=== PATIENT | female | born 1950 | race Caucasian/White ===

== ENCOUNTER 2016-08-03 08:32 | Emergency (ER) | payer MEDICARE, BC, MEDICAID ==
[~2016-08-03] VITALS: Ht 162.6 cm; Wt 97.5 kg
[~2016-08-03 08:32] MED LIST: ASP81CT PO; ASPI-983 PO; ATOR80TA64 PO; ATOR80TA76 PO; BIOT5CAP10 PO; CALC-97 PO; CALCIUM; CETI10CA PO; CETI10TA17 PO; CLOB15CR2 TP; CLON0.5T3 PO; CLON0.5T60 PO; CNC1KV IJ; CPR500T PO; CYAN10006 PO; DNPZ10T PO; DONE10TA41 PO; DOXY100C2 PO; DOXY100C42 PO; ESCI20TA2; FOLI1TAB24 PO; FRSM40T PO; FURO20TA4 PO; ISM30TCR PO; KCL20TCR PO; LAMO150T PO; LAMO25TA PO; LEVE500T6 PO; LEVE500T99; LEVE750T5 PO; LOVA20TA2 PO; MELA1TAB10 PO; MELO-198 PO; MELO15TA39 PO; MEMA10TA PO; MEMA5TAB16 PO; MGX400T PO; MULTIVITAMIN; OMEP-10 PO; ONDAN4ODT; PHN100C; POTA10TA14 PO; PRED1DRO OP; PRED1DRO OU; PRED5DRO2I OU; PROP10TA8; QTP100T; RISP1TAB19; RIVA1PAT TD; RIVA1PAT3 TD; ROPI1TAB40; RSP1T; TOPI200T19; TOPI200T8 PO; TPR100T; TPR100T PO; TRAZ-28 PO; VITAMIN B 12; ZLP10T; ZLP10T PO; ZLP5T PO; ZOLP5TAB7 PO; [UNRECOGNIZED DRUG - CODE] OP
--- OUTSIDE RECORDS SUMMARY | 2016-08-03 08:37 | XMS REPORT | Continuity of Care Document ---
Author Author [facility] Organization [facility] Address Unknown Phone Unavailable Care Team Providers Care Manager Telemetry Name Role Phone No Pcp, Na PCP Unavailable Source Comments Some departments are not documenting in the electronic medical record. If you do not see the information that you expected, contact Release of Information in the Health Information Management department at [phone] for further assistance in locating additional records.[facility] Active Allergies and Adverse Reactions Allergen Noted Date Severity Reactions Comments Latex 05/07/2005 Allergy recorded in SMS: Latex~Reactions: RASH Penicillins 09/30/2002 Allergy recorded in SMS: Penicillin~Reactions: STOMACH UPSET~HIVES Current Medications Prescription Sig. Disp. Refills Start End Date Status Date zolpidem (AMBIEN) 5 mg Take 5 mg by mouth at Active tablet bedtime daily. aspirin EC 81 mg tablet Take 81 mg by mouth Active daily. Take with food. clonazePAM (KLONOPIN) 0.5 Take 0.5 mg by mouth at Active mg tablet bedtime daily. rivastigmine(+) (EXELON) Apply 1 Patch to top of Active 9.5 mg/24 hr transdermal skin as directed daily. patch folic acid (FOLVITE) 1 mg Take 1 mg by mouth daily. Active tablet furosemide (LASIX) 20 mg Take 20 mg by mouth every Active tablet morning. atorvastatin (LIPITOR) 80 Take 80 mg by mouth Active mg tablet daily. melatonin 3 mg tab Take 3 mg by mouth at Active bedtime daily. meloxicam (MOBIC) 15 mg Take 15 mg by mouth Active tablet daily. memantine (NAMENDA) 5 mg Take 5 mg by mouth daily. Active tablet potassium chloride SR Take 10 mEq by mouth Active (K-DUR) 10 mEq tablet daily. Take with a meal and a full glass of water. traZODone (DESYREL) 50 mg Take 50 mg by mouth at Active tablet bedtime daily. Calcium-Cholecalciferol Take 1 Cap by mouth twice Active (D3) 600 mg calcium- 200 daily. unit cap levETIRAcetam (KEPPRA) Take 750 mg by mouth Active 750 mg tablet twice daily. lamoTRIgine (LAMICTAL) Take 150 mg by mouth Active 150 mg tablet twice daily. topiramate (TOPAMAX) 200 Take 200 mg by mouth Active mg tablet twice daily. prednisolone acetate Apply 1 Drop to both eyes Active (PRED FORTE) 1 % four times daily. ophthalmic suspension AMITRIPTYLINE HCL Apply to affected joints 100 g 1 05/19/20 Active (AMITRIPTYLINE/GABAPENTIN tid 16 /EMU OIL(#)) 4/4/10 % donepezil (ARICEPT) 10 mg Take 10 mg by mouth 07/21/19 Suspended tablet daily. 08 Active Problems Problem Noted Date PEG (acute kidney injury) ([facility]) 05/19/2016 Disorientation 05/19/2016 Dementia in conditions classified elsewhere without behavioral disturbance 10/11/2007 Other screening mammogram 07/22/2007 Chest pain 07/21/2007 Seizure disorder ([facility]) Brain injury ([facility]) Dementia Psychosis GERD (gastroesophageal reflux disease) Restless leg syndrome Most Recent Encounters Date Type Specialty Providers Description 06/12/2016 [facility] Radiology Imani Pineda MD Encounter 06/10/2016 Screening Form 05/18/2016 [facility] Emergency Medicine Beronica Park MD PEG (acute kidney injury) - Encounter Paul Mak MD ([facility]) 05/19/2016 Caryn Hutchins MD 05/18/2016 [facility] Imani Pineda MD Encounter 05/18/2016 Ancillary Imani Pineda MD Spells (Primary Dx); Orders History of seizure Social History Tobacco Use Types Packs/Day Years Used Date Current Every Day Smoker Alcohol Use Drinks/Week oz/Week Comments No Last Filed Vital Signs Vital Sign Reading Time Taken Blood Pressure 135/52 05/19/2016 8:00 AM VIDEO GAME PROGRAMMER Pulse 56 05/18/2016 4:43 PM VIDEO GAME PROGRAMMER Temperature 36.4 C (97.6 F) 05/19/2016 8:00 AM VIDEO GAME PROGRAMMER Respiratory Rate - - Height 1.626 m (5' 4") 05/18/2016 4:43 PM VIDEO GAME PROGRAMMER Weight 95.255 kg (210 lb) 05/18/2016 4:43 PM VIDEO GAME PROGRAMMER Body Mass Index 36.03 05/18/2016 4:43 PM VIDEO GAME PROGRAMMER Oxygen Saturation 97% 05/19/2016 8:00 AM VIDEO GAME PROGRAMMER Plan of Care Health Maintenance Due Date Last Done Comments Hepatitis C Screening 1951 Physical (Comprehensive) 1958 Exam Pertussis Vaccine 1962 Tetanus Vaccine 1968 Colorectal Cancer 2001 Screening Breast Cancer Screening 07/22/2008 07/22/2007, 07/22/2007 Shingles Vaccine 2011 Influenza Vaccine 03/05/2016 Osteoporosis Screening 2016 Prevnar/Pneumovax (#1) 2016 Procedures from Last 3 Months Procedure Name Priority Date/Time Associated Diagnosis Comments PROCEDURES-SCAN 05/21/2016 Results for this 10:35 AM VIDEO GAME PROGRAMMER procedure are in the results section. PROCEDURES-SCAN 05/19/2016 Results for this 7:31 AM VIDEO GAME PROGRAMMER procedure are in the results section. Results from Last 3 Months MRI HEAD WO CONTRAST (06/12/2016 2:14 PM) Impressions 1. Right mesial temporal sclerosis. 2. Stable multifocal posterior right cerebral cortical/subcortical encephalomalacia and gliosis, consistent with sequelae of remote insult. 3. Stable scattered small white matter lesions, suspicious for a demyelinating process such as multiple sclerosis in the appropriate clinical setting. Sequelae of chronic microvascular ischemic disease could appear similar. Approved by Giovana Leung M.D. on 06/12/2016 3:33 PM By my electronic signature, I attest that I have personally reviewed the images for this examination and formulated the interpretations and opinions expressed in this report Finalized by Avinash Zabala M.D. on 06/12/2016 4:02 PM. Dictated by Giovana Leung M.D. on 06/12/2016 2:29 PM. Narrative EXAM: MRI BRAIN (SEIZURE PROTOCOL) HISTORY: Seizure protocol, spells, history of seizure, brain injury TECHNIQUE: Multiplanar and multisequence MR imaging of the head was performed. This was done both without the administration of gadolinium contrast. Additional dedicated coronal sequences were obtained of the mesial temporal lobes. COMPARISON: CT head November 15, 2006 FINDINGS: There is retrospectively unchanged multifocal cortical/subcortical encephalomalacia and gliosis involving the right occipital and parietal lobes. The ventricles and subarachnoid spaces are otherwise normal in size and configuration. There are stable small scattered FLAIR hyperintense lesions throughout the supratentorial and infratentorial white matter, some of which are ovoid and oriented perpendicular to the lateral ventricles. The infratentorial white matter lesion is juxtacortical location. No new FLAIR hyperintense lesion is identified. There is no focal mass or mass effect. The vascular flow-voids are unremarkable. Diffusion weighted imaging is not indicative of infarct. There is right hippocampal FLAIR hyperintensity, volume loss and loss of normal internal architecture, lack of interdigitation of the right hippocampal head consistent with mesial temporal sclerosis. No migrational anomaly is identified. Procedure Note Interface, Radiant Results - WedJun 12, 2016 4:06 PM VIDEO GAME PROGRAMMER EXAM: MRI BRAIN (SEIZURE PROTOCOL) HISTORY: Seizure protocol, spells, history of seizure, brain injury TECHNIQUE: Multiplanar and multisequence MR imaging of the head was performed. This was done both without the administration of gadolinium contrast. Additional dedicated coronal sequences were obtained of the mesial temporal lobes. COMPARISON: CT head November 15, 2006 FINDINGS: There is retrospectively unchanged multifocal cortical/subcortical encephalomalacia and gliosis involving the right occipital and parietal lobes. The ventricles and subarachnoid spaces are otherwise normal in size and configuration. There are stable small scattered FLAIR hyperintense lesions throughout the supratentorial and infratentorial white matter, some of which are ovoid and oriented perpendicular to the lateral ventricles. The infratentorial white matter lesion is juxtacortical location. No new FLAIR hyperintense lesion is identified. There is no focal mass or mass effect. The vascular flow-voids are unremarkable. Diffusion weighted imaging is not indicative of infarct. There is right hippocampal FLAIR hyperintensity, volume loss and loss of normal internal architecture, lack of interdigitation of the right hippocampal head consistent with mesial temporal sclerosis. No migrational anomaly is identified. IMPRESSION 1. Right mesial temporal sclerosis. 2. Stable multifocal posterior right cerebral cortical/subcortical encephalomalacia and gliosis, consistent with sequelae of remote insult. 3. Stable scattered small white matter lesions, suspicious for a demyelinating process such as multiple sclerosis in the appropriate clinical setting. Sequelae of chronic microvascular ischemic disease could appear similar. Approved by Giovana Leung M.D. on 06/12/2016 3:33 PM By my electronic signature, I attest that I have personally reviewed the images for this examination and formulated the interpretations and opinions expressed in this report Finalized by Avinash Zabala M.D. on 06/12/2016 4:02 PM. Dictated by Giovana Leung M.D. on 06/12/2016 2:29 PM. PROCEDURES-SCAN (05/21/2016 10:35 AM) Narrative Ordered by an unspecified provider. ANTI-NUCLEAR ANTIBODY(DENNYS) (05/19/2016 9:51 AM) Component Value Range DENNYS Screen <80 <80 TITER Specimen Blood ANTI-CYCLIC CITRULLINATED PEPT (05/19/2016 9:51 AM) Component Value Range Anit-CCP IgG 0.9 <5.0 [IU]/mL Specimen Blood RHEUMATOID FACTOR (RF) (05/19/2016 9:51 AM) Component Value Range Rheum Factor Screen <20 <24 IU/mL Specimen Blood COMPREHENSIVE METABOLIC PANEL (05/19/2016 7:33 AM)Only the most recent of 2 results within the time period is included. Component Value Range Sodium 137 137-147 MMOL/L Potassium 4.1 3.5-5.1 MMOL/L Chloride 109 98-110 MMOL/L Glucose 105 (H) 70-100 MG/DL Blood Urea Nitrogen 17 7-25 MG/DL Creatinine 1.03 (H) 0.4-1.00 MG/DL Calcium 8.7 8.5-10.6 MG/DL Total Protein 6.6 6.0-8.0 G/DL Total Bilirubin 0.8 0.3-1.2 MG/DL Albumin 3.5 3.5-5.0 G/DL Alk Phosphatase 83 25-110 U/L AST (SGOT) 348 (H) 7-40 U/L CO2 24 21-30 MMOL/L ALT (SGPT) 172 (H) 7-56 U/L Anion Gap 4 3-12 eGFR Non 54 (L)Comment: >60 mL/min The eGFR is not validated for use in drug dosing adjustments. Continue to use estimated creatinine clearance per dosing reference text. Please contact the Clinical Pharmacist for questions. eGFR >60Comment: >60 mL/min The eGFR is not validated for use in drug dosing adjustments. Continue to use estimated creatinine clearance per dosing reference text. Please contact the Clinical Pharmacist for questions. Specimen Blood CBC AND DIFF (05/19/2016 7:33 AM)Only the most recent of 2 results within the time period is included. Component Value Range White Blood Cells 6.6 4.5-11.0 K/UL RBC 4.16 4.0-5.0 M/UL Hemoglobin 13.1 12.0-15.0 GM/DL Hematocrit 40.1 36-45 % MCV 96.4 80-100 FL MCH 31.5 26-34 PG MCHC 32.7 32.0-36.0 G/DL RDW 13.5 11-15 % Platelet Count 154 150-400 K/UL MPV 8.2 7-11 FL Neutrophils 72 41-77 % Lymphocytes 18 (L) 24-44 % Monocytes 8 4-12 % Eosinophils 1 0-5 % Basophils 1 0-2 % Absolute Neutrophil Count 4.70 1.8-7.0 K/UL Absolute Lymph Count 1.20 1.0-4.8 K/UL Absolute Monocyte Count 0.50 0-0.80 K/UL Absolute Eosinophil Count 0.10 0-0.45 K/UL Absolute Basophil Count 0.00 0-0.20 K/UL Specimen Blood PROCEDURES-SCAN (05/19/2016 7:31 AM) Narrative Ordered by an unspecified provider. URINALYSIS, MICROSCOPIC (05/19/2016 7:21 AM) Component Value Range WBCs,UA 2-10 0-2 /HPF RBCs,UA NONE 0-3 /HPF MucousUA TRACE Squamous Epithelial Cells 0-2 0-5 Specimen Urine URINALYSIS DIPSTICK (05/19/2016 7:21 AM) Component Value Range Color,UA YELLOW Turbidity,UA 1+ (A) CLEAR-CLEAR Specific [place]-Urine 1.016 1.003-1.035 pH,UA 7.0 5.0-8.0 Protein,UA NEG NEG-NEG Glucose,UA NEG NEG-NEG Ketones,UA NEG NEG-NEG Bilirubin,UA NEG NEG-NEG Blood,UA NEG NEG-NEG Urobilinogen,UA NORMAL NORM-NORMAL Nitrite,UA NEG NEG-NEG Leukocytes,UA TRACE (A) NEG-NEG Urine Ascorbic Acid, UA NEG NEG-NEG Specimen Urine CULTURE-URINE W/SENSITIVITY (05/19/2016 7:21 AM) Component Value Range Battery Name URINE CULTURE Specimen Description URINE Special Requests NONE Culture <10,000 organisms/ml MIXED CONTAMINANTS Report Status FINAL 05/20/2016 Specimen Urine PROTIME INR (PT) (05/19/2016 6:07 AM)Only the most recent of 2 results within the time period is included. Component Value Range INR 1.0 0.8-1.2 VITAMIN B12 (05/19/2016 6:07 AM) Component Value Range Vitamin B12 2670 (H) 180-914 PG/ML Specimen Blood TSH WITH FREE T4 REFLEX (05/19/2016 6:07 AM) Component Value Range TSH 0.954 0.35-5.00 MCU/ML Specimen Blood 25-OH VITAMIN D (D2 + D3) (05/19/2016 6:07 AM) Component Value Range Vitamin D(25-OH)Total 29.2 (L) 30-80 NG/ML Specimen Blood ANKLE MIN 3 VIEWS LEFT (05/19/2016 2:43 AM) Impressions No acute osseous abnormality of the ankle. Approved by Meliton Boyce M.D. on 05/19/2016 7:31 AM By my electronic signature, I attest that I have personally reviewed the images for this examination and formulated the interpretations and opinions expressed in this report Finalized by Soha Bedoya M.D. on 05/19/2016 7:32 AM. Dictated by Meliton Boyce M.D. on 05/19/2016 5:10 AM. Narrative ANKLE MIN 3 VIEWS LEFT CLINICAL HISTORY: Female, 66 years old. Left ankle pain, GENERALIZED BODY PAIN, COMPARISON: None FINDINGS: 3 views of the left ankle were obtained.There is no acute fracture or dislocation. No focal osseous lesions are seen. The joint spaces are preserved. The surrounding soft tissue structures are unremarkable. There are no radiopaque foreign bodies. Procedure Note Interface, Radiant Results - Tue May 19, 2016 7:35 AM VIDEO GAME PROGRAMMER ANKLE MIN 3 VIEWS LEFT CLINICAL HISTORY: Female, 66 years old. Left ankle pain, GENERALIZED BODY PAIN, COMPARISON: None FINDINGS: 3 views of the left ankle were obtained. There is no acute fracture or dislocation. No focal osseous lesions are seen. The joint spaces are preserved. The surrounding soft tissue structures are unremarkable. There are no radiopaque foreign bodies. IMPRESSION No acute osseous abnormality of the ankle. Approved by Meliton Boyce M.D. on 05/19/2016 7:31 AM By my electronic signature, I attest that I have personally reviewed the images for this examination and formulated the interpretations and opinions expressed in this report Finalized by Soha Bedoya M.D. on 05/19/2016 7:32 AM. Dictated by Meliton Boyce M.D. on 05/19/2016 5:10 AM. FOOT COMP MIN 3 VIEWS LEFT (05/19/2016 2:40 AM) Impressions No acute osseous abnormality of the left foot. Approved by Meliton Boyce M.D. on 05/19/2016 7:31 AM By my electronic signature, I attest that I have personally reviewed the images for this examination and formulated the interpretations and opinions expressed in this report Finalized by Soha Bedoya M.D. on 05/19/2016 7:32 AM. Dictated by Meliton Boyce M.D. on 05/19/2016 5:11 AM. Narrative FOOT COMP MIN 3 VIEWS LEFT CLINICAL HISTORY: Female, 66 years old. Left foot pain, GENERALIZED BODY PAIN, COMPARISON: None FINDINGS: 3 views of the left foot were obtained. There is no acute fracture or dislocation. The visualized tarsal bones are intact. The tarsometatarsal, metatarsal-phalangeal, and interphalangeal joint spaces are well maintained. There are no focal osseous lesions. The surrounding soft tissue structures are unremarkable. There are no radiopaque foreign bodies. Procedure Note Interface, Radiant Results - Tue May 19, 2016 7:35 AM VIDEO GAME PROGRAMMER FOOT COMP MIN 3 VIEWS LEFT CLINICAL HISTORY: Female, 66 years old. Left foot pain, GENERALIZED BODY PAIN, COMPARISON: None FINDINGS: 3 views of the left foot were obtained. There is no acute fracture or dislocation. The visualized tarsal bones are intact. The tarsometatarsal, metatarsal-phalangeal, and interphalangeal joint spaces are well maintained. There are no focal osseous lesions. The surrounding soft tissue structures are unremarkable. There are no radiopaque foreign bodies. IMPRESSION No acute osseous abnormality of the left foot. Approved by Meliton Boyce M.D. on 05/19/2016 7:31 AM By my electronic signature, I attest that I have personally reviewed the images for this examination and formulated the interpretations and opinions expressed in this report Finalized by Soha Bedoya M.D. on 05/19/2016 7:32 AM. Dictated by Meliton Boyce M.D. on 05/19/2016 5:11 AM. US DOPPLER VENOUS W EXTRM LEFT (05/18/2016 11:59 PM) Impressions 1. No evidence of femoral/popliteal DVT in the left lower extremity. 2. Small subcutaneous lipoma in the anterior thigh palpable region of interest. By my electronic signature, I attest that I have personally reviewed the images for this examination and formulated the interpretations and opinions expressed in this report Finalized by Manuel Toney M.D. on 05/19/2016 12:43 AM. Dictated by Meliton Boyce M.D. on 05/19/2016 12:09 AM. Narrative Ultrasound Doppler of the left lower extremity. Clinical Indication: LEFT LEG SWELLING Technique: Multiple real-time grayscale sonographic images were obtained throughout the left lower extremity with additional color Doppler and duplex acquisitions to examine the deep venous systems. Findings: There are no areas of narrowing or occlusion within the deep veins of the left lower extremity. The common femoral, femoral, saphenous, popliteal, and deep veins of the left lower extremity are widely patent and demonstrate normal color Doppler imaging. No abnormal compression or augmentation is identified. There is a small homogenous, hyperechoic subcutaneous nodule in the anterior left thigh and the palpable area of interest measuring 1.5 x 1.3 x 0.9 cm, most consistent with a lipoma. Procedure Note Interface, Radiant Results - Tue May 19, 2016 12:46 AM VIDEO GAME PROGRAMMER Ultrasound Doppler of the left lower extremity. Clinical Indication: LEFT LEG SWELLING Technique: Multiple real-time grayscale sonographic images were obtained throughout the left lower extremity with additional color Doppler and duplex acquisitions to examine the deep venous systems. Findings: There are no areas of narrowing or occlusion within the deep veins of the left lower extremity. The common femoral, femoral, saphenous, popliteal, and deep veins of the left lower extremity are widely patent and demonstrate normal color Doppler imaging. No abnormal compression or augmentation is identified. There is a small homogenous, hyperechoic subcutaneous nodule in the anterior left thigh and the palpable area of interest measuring 1.5 x 1.3 x 0.9 cm, most consistent with a lipoma. IMPRESSION 1. No evidence of femoral/popliteal DVT in the left lower extremity. 2. Small subcutaneous lipoma in the anterior thigh palpable region of interest. By my electronic signature, I attest that I have personally reviewed the images for this examination and formulated the interpretations and opinions expressed in this report Finalized by Manuel Toney M.D. on 05/19/2016 12:43 AM. Dictated by Meliton Boyce M.D. on 05/19/2016 12:09 AM. PTT (APTT) (05/18/2016 10:45 PM) Component Value Range APTT 26.6 24.0-40.0 SEC Specimen Blood
--- NOTE | 2016-08-03 08:53 | ED Head Injury ---
General Chief Complaint: General Problems/Pain Stated Complaint: FALL/HEAD PAIN Nursing Triage Note: PT TO [facility] WITH CC OF FALL, LAC TO HEAD, BLEEDING CONTROLLED AT THIS TIME. NO LOC, PT STATES SHE JUST TRIPPED AND FELL HITTING HER HEAD. STATES SHE HAS HAD SWELLING IN THE LT LEG, MINOR LT THIGH PAIN, AND ARMS ARE THROBBING. Source: patient, EMS, RN notes reviewed Exam Limitations: no limitations History of Present Illness Time seen by provider: 08:53 Initial Comments As above. Occurred: just prior to arrival Severity: moderate (01/11) Location: occipital Method of Injury: fell, incised Loss of Consciousness: no loss of consciousness Associated Systoms: Other (left thigh and arms ache) Allergies and Home Medications Allergies Coded Allergies: Penicillins (Verified Allergy, Mild, 07/22/13) latex (Verified Allergy, Mild, 07/22/13) Home Medications Aspirin 81 Mg Tablet.dr 81 MG PO DAILY (Reported) Atorvastatin Calcium 80 Mg Tablet 80 MG PO HS (Reported) Calcium Carbonate/Vitamin D3 1 Each Tablet 1 TAB PO BID (Reported) Clonazepam 0.5 Mg Tablet 0.5 MG PO HS (Reported) Cyanocobalamin 1,000 Mcg/Ml Inj 1,000 MCG IJ EVERY OTHER WEDNESDAY (Reported) Cyanocobalamin (Vitamin B-12) 1,000 Mcg Tablet 1,000 MCG PO DAILY (Reported) Donepezil HCl 10 Mg Tablet 10 MG PO DAILY (Reported) Folic Acid 1 Mg Tablet 1 MG PO DAILY (Reported) Furosemide 20 Mg Tablet 20 MG PO DAILY (Reported) Lamotrigine 150 Mg Tablet 150 MG PO BID (Reported) Levetiracetam 750 Mg Tablet 1,500 MG PO BID (Reported) TAKES 2 (750MG) TABLETS Melatonin/Pyridoxine 1 Each Tablet 3 MG PO HS (Reported) Meloxicam 15 Mg Tablet 15 MG PO DAILY (Reported) Memantine HCl 5 Mg Tablet 5 MG PO DAILY (Reported) Potassium Chloride 10 Meq Tab.er.prt 10 MEQ PO DAILY (Reported) Prednisolone Acetate 1 Ml Drops.susp 1 DROP OU QID (Reported) Rivastigmine 9.5 Mg Patch 9.5 MG TD DAILY (Reported) Topiramate 200 Mg Tablet 200 MG PO BID (Reported) Trazodone HCl 50 Mg Tablet 50 MG PO HS (Reported) Zolpidem Tartrate 5 Mg Tablet 5 MG PO HS (Reported) Constitutional: see HPI : No Musculoskeletal: see HPI other (lef thigh pain; arms ache) Skin: see HPI other (occipital scalp laceration) All Other Systems Reviewed Negative Unless Noted: Yes (Negative excepted noted.) Past Umfzrwn-Cjfknz-Cwosjq Hx Patient Social History Former Smoker/When Quit: Oct 17, 2012 Recent Foreign Travel: No Contact w/Someone Who Travel: No Recent Infectious Disease Expo: No Recent Hopitalizations: No Immunizations Up To Date Tetanus Booster (TDap): Unknown Date of Influenza Vaccine: Apr 04, 2016 Seasonal Allergies Seasonal Allergies: No Surgeries HX Surgeries: Yes Surgeries: Gallbladder, Lumpectomy Respiratory Hx Respiratory Disorders: No Cardiovascular Hx Cardiac Disorders: Yes Cardiac Disorders: Coronary Artery Disease, High Cholesterol, Hypertension, Rheumatic Fever Neurological Hx Neurological Disorders: Yes (ENCEPHALITIS) Neurological Disorders: Concussion, Dementia, Seizure Disorder, Traumatic Brain Injury Reproductive System Hx Reproductive Disorders: No Sexually Transmitted Disease: No HIV/AIDS: No Female Reproductive Disorders: Denies Genitourinary Hx Genitourinary Disorders: No Gastrointestinal Hx Gastrointestinal Disorders: Yes ("STOMACH DISCOMFORT") Gastrointestinal Disorders: Gastroesophageal Reflux, Chronic Constipation Musculoskeletal Hx Musculoskeletal Disorders: Yes Endocrine Hx Endocrine Disorders: No HEENT HX ENT Disorders: No Cancer Hx Cancer: No Psychosocial Hx Psychiatric Problems: Yes Behavioral Health Disorders: Sleep Difficulties, Bipolar Integumentary HX Skin/Integumentary Disorder: Yes Skin/Integumentary Disorders: Psoriasis Blood Transfusions Hx Blood Disorders: No Family Medical History Family Medial History: Cancer 03 FATHER (PANCREATIC CANCER) 09 BROTHER ( AT AGE 10) Family history: Cardiovascular disease 03 MOTHER Family history: Diabetes mellitus 03 MOTHER Heart disease 03 MOTHER Physical Exam Vital Signs Vital Sign - Last 12Hours 08/03/16 08:43 Temp 97.0 Pulse 54 Resp 20 B/P 140/69 Pulse Ox 96 O2 Delivery Room Air Capillary Refill : Less Than 3 Seconds General Appearance: WD/WN no apparent distress obese HEENT: PERRL/EOMI other (2 cm horizontal, subq occipital scalp laceration; bleeding controlled @ this time.) Neck: non-tender supple Cardiovascular: bradycardia Respiratory: no respiratory distress Extremities: normal inspection Psychiatric: alert oriented x 3 depressed affect Crainal Nerves: normal hearing normal speech PERRL Motor/Sensory: no motor deficit no sensory deficit Skin: warm/dry [place] Coma Score Best Eye Response: (4) Open Spontaneously Best Verbal Response: (5) Oriented Best Motor Response: (6) Obeys Commands [place] Total: 15 Laceration Repair : Wound Location: Scalp Wound Length (cm): 2 Wound's Depth, Shape: linear, contused tissue, sub Q Wound Explored: no foreign body removed Betadine Prep?: No Staple Repair: Stapler 35W Number of Sutures: 2 Sterile Dressing Applied?: No Progress/Results/Core Measures Results/Orders Lab Results Laboratory Tests Test 08/03/16 09:58 Range/Units Urine Bacteria NEGATIVE /HPF Urine Bilirubin NEGATIVE NEGATIVE Urine Casts NONE /LPF Urine Clarity CLEAR Urine Color YELLOW Urine Crystals NONE /LPF Urine Culture Indicated NO Urine Glucose (UA) NEGATIVE NEGATIVE Urine Ketones NEGATIVE NEGATIVE Urine Leukocyte Esterase NEGATIVE NEGATIVE Urine Mucus NEGATIVE /LPF Urine Nitrite NEGATIVE NEGATIVE Urine Protein NEGATIVE NEGATIVE Urine RBC NONE /HPF Urine RBC (Auto) NEGATIVE NEGATIVE Urine Specific [place] 1.010 L 1.016-1.022 Urine Squamous Epithelial Cells RARE /HPF Urine Urobilinogen NORMAL NORMAL MG/DL Urine WBC NONE /HPF Urine pH 7 5-9 My Orders Orders-FABIOLA HERNANDEZ DO Ct Head/Cervical Spine Wo (08/03/16 08:56) Ct Thoracic Spine Wo (08/03/16 08:56) Femur, Left, 2 Views (08/03/16 08:56) Dipht,Pertuss(Acell),Tet Adult (Boostrix (08/03/16 09:00) Ua Culture If Indicated (08/03/16 09:59) Dipht,Pertuss(Acell),Tet Adult (Boostrix (08/03/16 11:13) Vital Signs/I&O Blood Pressure Mean: 92 Departure Impression Impression: Primary Impression: Fall Additional Impression: Occipital scalp laceration Disposition: 01 HOME, SELF-CARE Condition: Improved Departure-Patient Inst. Decision time for Depature: 10:58 Referrals: JOVON LING MD (PCP/Family) Primary Care Physician Patient Instructions: Laceration Repair With Joya (DC) Add. Discharge Instructions: All discharge instructions reviewed with patient and/or family. Voiced understanding. NEED TO HAVE YOUR JOYA REMOVED IN 7-10 DAYS. FABIOLA HERNANDEZ DO Aug 03, 2016 08:53
[2016-08-03] MEDS ORDERED: TETANUS,DIPTH,PERTUSS P/F (BOOSTRIX) 0.5 ML VIAL IM ONE ×2 (09:00→11:13)
--- NOTE | 2016-08-03 09:31 | Diagnostic Imaging Report ---
PROCEDURE: CT head and CT cervical spine without contrast. TECHNIQUE: Multiple contiguous axial images were obtained through the brain and cervical spine without the use of intravenous contrast. Sagittal and coronal reformations through the cervical spine were then performed. INDICATION: Fall. Left arm numbness. FINDINGS: CT head: There is no intracranial hemorrhage, edema, or mass effect. The brain parenchyma and eprkins-white matter differentiation is preserved. There is no hydrocephalus. No extra-axial fluid collections seen. The visualized portions of the calvarium, paranasal sinuses, and orbits appear grossly unremarkable. CT cervical spine: There is straightening of the cervical spine. The vertebral body heights are preserved. There is disc height loss at C3-C4 level with prominent posterior osteophytes at this level. Also prominent posterior osteophytes at C5-C6 are seen. The alignment of the posterior spinal line, of the facet joints, of the lateral masses of C1 and C2 and the atlantooccipital joints appear unremarkable. No widening of the predental space is seen. No fracture seen. There are slightly prominent thyroid nodules noted. Correlate with thyroid ultrasound. IMPRESSION: CT head: No intracranial hemorrhage. Unremarkable exam. CT cervical spine: 1. Degenerative changes. No fracture seen. 2. Nonspecific thyroid nodules. Better evaluation with thyroid ultrasound is suggested. Dictated by: Dictated on workstation # [id number]
--- NOTE | 2016-08-03 09:41 | Diagnostic Imaging Report ---
INDICATION: Left femur injury from a fall. FINDINGS: AP and lateral views of left femur show no fracture, dislocation or other acute abnormalities. IMPRESSION: Negative left femur. Dictated by: Dictated on workstation # [id number]
--- NOTE | 2016-08-03 09:51 | Diagnostic Imaging Report ---
PROCEDURE: CT thoracic spine without contrast. TECHNIQUE: Multiple axial computerized tomography images were obtained from the base of the thoracic spine to the vertex without intravenous contrast. INDICATION: Fall. FINDINGS: The alignment of the posterior spinal line and facet joints is satisfactory. The vertebral body heights are preserved. The discs demonstrate vacuum phenomenon at multiple levels in the mid and lower thoracic spine. There are multilevel anterior osteophytes seen in the mid and lower thoracic spine. No fracture is seen. There is no posterior osteophyte noted projecting towards the spinal canal. The paraspinal soft tissues appear grossly unremarkable. IMPRESSION: Degenerative changes in the mid and lower thoracic spine levels. No fracture seen. Dictated by: Dictated on workstation # [id number]
[2016-08-03 10:04] LABS: BILIRUBIN,URINE NEGATIVE (NEGATIVE); KETONES,URINE NEGATIVE (NEGATIVE); LEUKOCYTE ESTERASE ,URINE NEGATIVE (NEGATIVE); NITRITE,URINE NEGATIVE (NEGATIVE); PH,URINE 7 (5-9); PROTEIN,URINE NEGATIVE (NEGATIVE); UROBILINOGEN,URINE NORMAL (NORMAL)
[2016-08-03 10:18] LABS: SQUAMOUS EPITHELIAL CELL,UR RARE /HPF
[2016-08-03 11:31] VITALS: BP 152/61
[2016-10-02] MEDS ORDERED: POTA-51 PO (11:20)
[2016-10-02] MEDS ORDERED: HYDR-3812 PO (11:20)
== END 2016-08-03 11:31 | disposition home or self-care (01) ==
LOC: EDUNIT# 08:32 → ER 08:33
DX: S01.01XA Laceration without foreign body of scalp, initial encounter (principal); Z23 Encounter for immunization; I25.10 Atherosclerotic heart disease of native coronary artery without angina pectoris; I10 Essential (primary) hypertension; Z79.82 Long term (current) use of aspirin; Z79.899 Other long term (current) drug therapy; W01.0XXA Fall on same level from slipping, tripping and stumbling without subsequent striking against object, initial encounter; Y99.8 Other external cause status
CPT/HCPCS: 70450; 72125; 72128; 73552; 81000; 90471; 90715

== ENCOUNTER → 2016-08-24 | Outpatient (CLI) | payer MEDICARE, BC, MEDICAID ==
[~2016-08-24] MED LIST changes: +CHLO25TA22 PO; +FLUC200T5 PO; +FURO40TA4 PO; +HYDR-3812 PO; +KETO120S11 TOP; +LAMO200T PO; +MECL-106 PO; +OXYB15TA PO; +POTA-51 PO; +PRED5DRO17 OU; +RISP1TAB3 PO; +TR1C15 TOP
--- OUTSIDE RECORDS SUMMARY | 2016-08-24 14:43 | XMS REPORT | Continuity of Care Document ---
Author Author [facility] Organization [facility] Address Unknown Phone Unavailable Care Team Providers Care Homemaking Rehabilitation Consultant Name Role Phone No Pcp, Na PCP Unavailable Source Comments Some departments are not documenting in the electronic medical record. If you do not see the information that you expected, contact Release of Information in the Health Information Management department at [phone] for further assistance in locating additional records.[facility] Active Allergies and Adverse Reactions Allergen Noted [...] Problem Noted Date PEG (acute kidney injury) (HCC) 05/19/2016 Disorientation 05/19/2016 Dementia in conditions classified elsewhere without behavioral disturbance 10/11/2007 Other screening mammogram 07/22/2007 Chest pain 07/21/2007 Seizure disorder (HCC) Brain injury (HCC) Dementia Psychosis GERD (gastroesophageal reflux disease) Restless leg syndrome Most Recent Encounters Date Type Specialty Providers Description 06/12/2016 [facility] Radiology Imani Pineda MD Encounter 06/10/2016 Screening Form Social History Tobacco Use Types Packs/Day Years Used Date Current Every Day Smoker Alcohol Use Drinks/Week oz/Week Comments No Last Filed Vital Signs Vital Sign Reading Time Taken Blood Pressure 135/52 05/19/2016 8:00 AM PRODUCT DEVELOPMENT ACTUARY Pulse 56 05/18/2016 4:43 PM PRODUCT DEVELOPMENT [employer] Temperature 36.4 C (97.6 F) 05/19/2016 8:00 AM PRODUCT DEVELOPMENT [employer]UARY Respiratory Rate - - Height 1.626 m (5' 4") 05/18/2016 4:43 PM [employer]ODUCT [employer]ELOPMENT [employer] Weight 95.255 kg (210 lb) 05/18/2016 4:43 PM [employer]ODUCT [employer]ELOPMENT [employer] Body Mass Index 36.03 05/18/2016 4:43 PM [employer]ODUCT [employer]ELOPMENT [employer] Oxygen Saturation 97% 05/19/2016 8:00 AM [employer]ODUCT [employer]ELOPMENT [employer] Plan of Care Health Maintenance Due Date Last Done Comments Hepatitis C Screening 1951 Physical (Comprehensive) 1958 Exam Pertussis Vaccine 1962 Tetanus Vaccine 1968 Colorectal Cancer 2001 Screening Breast Cancer Screening 07/22/2008 07/22/2007, 07/22/2007 Shingles Vaccine 2011 Influenza Vaccine 03/05/2016 Osteoporosis Screening 2016 Prevnar/Pneumovax (#1) 2016 Results from Last 3 Months MRI HEAD [...] Results - WedJun 12, 2016 4:06 PM [employer]ODUCT DEVELOPMENT [employer] EXAM: MRI BRAIN (SEIZURE PROTOCOL) HISTORY: Seizure [...]
--- NOTE | 2016-08-24 20:36 | Diagnostic Imaging Report ---
INDICATION: Screening. The current study was also evaluated with a Computer Aided Detection (CAD) system. Comparison made with prior examination of 06/07/2015, 05/24/2013, and 04/06/2011. FINDINGS: There is a moderate amount residual fibroglandular tissue bilaterally. There is a focal area of architectural distortion in the lateral aspect of the left breast in the CC projection. There is no other dominant mass, spiculated lesion, or suspicious calcification identified. IMPRESSION: Focal area of architectural distortion in the left breast. Further evaluation with spot compression views and if warranted ultrasound is recommended to exclude the possibility of a discrete underlying mass. ACR BI-RADS Category 0: Incomplete. (Needs additional imaging evaluation). Result letter will be mailed to the patient. Note: At least 10% of breast cancer is not imaged by mammography. Dictated by: Dictated on workstation # [id number]
== END ==
LOC: RAD 14:39
DX: Z12.31 Encounter for screening mammogram for malignant neoplasm of breast (principal)
CPT/HCPCS: 77067

== ENCOUNTER 2016-08-26 20:19 | Emergency (ER) | payer MEDICARE, BC, MEDICAID ==
[~2016-08-26] VITALS: Ht 162.6 cm; Wt 95.3 kg
[~2016-08-26 20:19] MED LIST changes: -CHLO25TA22 PO; -FLUC200T5 PO; -FURO40TA4 PO; -HYDR-3812 PO; -KETO120S11 TOP; -LAMO200T PO; -MECL-106 PO; -OXYB15TA PO; -POTA-51 PO; -PRED5DRO17 OU; -RISP1TAB3 PO; -TR1C15 TOP
--- OUTSIDE RECORDS SUMMARY | 2016-08-26 20:24 | XMS REPORT | Continuity of Care Document ---
Author Author [facility] Organization [facility] Address Unknown Phone Unavailable Care Team Providers Care Body Shop Estimator Name Role Phone No Pcp, Na PCP Unavailable Source Comments Some departments are not documenting in the electronic medical record. If you do not see the information that you expected, contact Release of Information in the Health Information Management department at [phone] for further assistance in locating additional records.[facility] Active Allergies and Adverse Reactions Allergen Noted [...] Encounters Date Type Specialty Providers Description 06/12/2016 [facility] Radiology Imani Pineda MD Encounter 06/10/2016 Screening Form Social History Tobacco Use Types Packs/Day Years Used Date Current Every Day Smoker Alcohol Use Drinks/Week oz/Week Comments No Last Filed Vital Signs Vital Sign Reading Time Taken Blood Pressure 135/52 05/19/2016 8:00 AM FRESH 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
[2016-08-26 20:36] LABS: BASOPHILS % (AUTO) 1 % (0-10); EOSINOPHILS # (AUTO) 0.3 10^3/uL (0.0-0.3); EOSINOPHILS % (AUTO) 5 % (0-10); LYMPHOCYTES # (AUTO) 1.1 X 10^3 (1.0-4.0); LYMPHOCYTES % (AUTO) 16 % (12-44); MEAN CORPUSCULAR HEMOGLOBIN 33 PG (25-34); MEAN CORPUSCULAR HGB CONC 33 G/DL (32-36); MEAN CORPUSCULAR VOLUME 100 FL (80-99); MEAN PLATELET VOLUME 9.8 FL (7.4-10.4); MONOCYTES # (AUTO) 0.9 X 10^3 (0.0-1.0); MONOCYTES % (AUTO) 13 % (0-12); NEUTROPHILS # (AUTO) 4.3 X 10^3 (1.8-7.8); NEUTROPHILS % (AUTO) 66 % (42-75); PLATELET COUNT 162 10^3/uL (130-400); RED BLOOD COUNT 3.71 10^6/uL (4.35-5.85); RED CELL DISTRIBUTION WIDTH 12.6 % (10.0-14.5); WHITE BLOOD COUNT 6.6 10^3/uL (4.3-11.0)
--- NOTE | 2016-08-26 20:41 | ED General ---
General Chief Complaint: -Female Stated Complaint: NAUSEA Source of Information: Patient Exam Limitations: No Limitations History of Present Illness Time Seen by Provider: 20:39 Initial Comments Patient presents with multiple vague complaints. The reason she called for assistance night was the car she was very dizzy and was unable to walk. Mild headache. Occasional chest pain. Swelling in both legs. Malaise and Fatigue. Allergies and Home Medications Allergies Coded Allergies: Penicillins (Verified Allergy, Mild, 07/22/13) latex (Verified Allergy, Mild, 07/22/13) Home Medications Aspirin 81 Mg Tablet.dr 81 MG PO DAILY (Reported) Atorvastatin Calcium 80 Mg Tablet 80 MG PO HS (Reported) Calcium Carbonate/Vitamin D3 1 Each Tablet 1 TAB PO BID (Reported) Clonazepam 0.5 Mg Tablet 0.5 MG PO HS (Reported) Cyanocobalamin 1,000 Mcg/Ml Inj 1,000 MCG IJ EVERY OTHER WEDNESDAY (Reported) Cyanocobalamin (Vitamin B-12) 1,000 Mcg Tablet 1,000 MCG PO DAILY (Reported) Donepezil HCl 10 Mg Tablet 10 MG PO DAILY (Reported) Folic Acid 1 Mg Tablet 1 MG PO DAILY (Reported) Furosemide 20 Mg Tablet 20 MG PO DAILY (Reported) Lamotrigine 150 Mg Tablet 150 MG PO BID (Reported) Levetiracetam 750 Mg Tablet 1,500 MG PO BID (Reported) TAKES 2 (750MG) TABLETS Melatonin/Pyridoxine 1 Each Tablet 3 MG PO HS (Reported) Meloxicam 15 Mg Tablet 15 MG PO DAILY (Reported) Memantine HCl 5 Mg Tablet 5 MG PO DAILY (Reported) Potassium Chloride 10 Meq Tab.er.prt 10 MEQ PO DAILY (Reported) Prednisolone Acetate 1 Ml Drops.susp 1 DROP OU QID (Reported) Rivastigmine 9.5 Mg Patch 9.5 MG TD DAILY (Reported) Topiramate 200 Mg Tablet 200 MG PO BID (Reported) Trazodone HCl 50 Mg Tablet 50 MG PO HS (Reported) Zolpidem Tartrate 5 Mg Tablet 5 MG PO HS (Reported) Constitutional: dizzinessNo fever, malaise weakness Respiratory: short of breath Cardiovascular: chest pain edema Gastrointestinal: no symptoms reported Genitourinary: frequency Musculoskeletal: muscle pain Psychiatric/Neurological: Headache All Other Systems Reviewed Negative Unless Noted: Yes Past Xkzkicw-Zvyygk-Ipdzqr Hx Patient Social History Type Used: Cigarettes Former Smoker/When Quit: Oct 17, 2012 Recent Hopitalizations: Yes (PSYCH EVALUATIOIN 06/19) Immunizations Up To Date Tetanus Booster (TDap): Unknown Date of Influenza Vaccine: Apr 04, 2016 Seasonal Allergies Seasonal Allergies: No Surgeries HX Surgeries: Yes Surgeries: Gallbladder, Lumpectomy Respiratory Hx Respiratory Disorders: No Cardiovascular Hx Cardiac Disorders: Yes Cardiac Disorders: Coronary Artery Disease, High Cholesterol, Hypertension, Rheumatic Fever Neurological Hx Neurological Disorders: Yes (ENCEPHALITIS) Neurological Disorders: Concussion, Dementia, Seizure Disorder, Traumatic Brain Injury Reproductive System Hx Reproductive Disorders: No Sexually Transmitted Disease: No HIV/AIDS: No Female Reproductive Disorders: Denies Genitourinary Hx Genitourinary Disorders: No Gastrointestinal Hx Gastrointestinal Disorders: Yes ("STOMACH DISCOMFORT") Gastrointestinal Disorders: Gastroesophageal Reflux, Chronic Constipation Musculoskeletal Hx Musculoskeletal Disorders: Yes Musculoskeletal Disorders: Arthritis Endocrine Hx Endocrine Disorders: No HEENT HX ENT Disorders: No Cancer Hx Cancer: No Psychosocial Hx Psychiatric Problems: Yes Behavioral Health Disorders: Sleep Difficulties, Bipolar Integumentary HX Skin/Integumentary Disorder: Yes Skin/Integumentary Disorders: Psoriasis Blood Transfusions Hx Blood Disorders: No Reviewed Nursing Assessment Reviewed/Agree w Nursing PMH: Yes Family Medical History Family Medial History: Cancer 03 FATHER (PANCREATIC CANCER) 09 BROTHER ( AT AGE 10) Family history: Cardiovascular disease 03 MOTHER Family history: Diabetes mellitus 03 MOTHER Heart disease 03 MOTHER Physical Exam Vital Signs Vital Sign - Last 12Hours 08/26/16 20:19 Temp 97.3 Pulse 52 Resp 16 B/P 150/72 Capillary Refill : General Appearance: No Apparent Distress WD/WN Eyes: Bilateral Eye EOMI, Bilateral Eye Normal Inspection, Bilateral Eye PERRL HEENT: PERRL/EOMI Pharynx Normal Neck: Supple Respiratory: Lungs Clear Normal Breath Sounds Cardiovascular: Regular Rate, Rhythm No Gallop Gastrointestinal: Non Tender Soft Back: Normal Inspection Extremity: Pedal Edema (1+ pedal edema bilaterally) Neurologic/Psychiatric: Alert Oriented x3 No Motor/Sensory Deficits Normal 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 Symptoms are resolved with lying flat and still) Skin: Normal Color Warm/Dry Progress/Results/Core Measures Results/Orders Lab Results Laboratory Tests Test 08/26/16 20:30 08/26/16 21:39 Range/Units Alanine Aminotransferase (ALT/SGPT) 27 0-55 U/L Albumin 3.5 3.2-4.5 G/DL Alkaline Phosphatase 104 40-136 U/L Anion Gap 11 5-14 MMOL/L Aspartate Amino Transf (AST/SGOT) 40 H 5-34 U/L B-Type Natriuretic Peptide 54.4 <100.0 PG/ML BUN/Creatinine Ratio 14 Basophils # (Auto) 0.0 0.0-0.1 10^3/uL Basophils (%) (Auto) 1 0-10 % Blood Urea Nitrogen 16 7-18 MG/DL Calcium Level 8.5 8.5-10.1 MG/DL Carbon Dioxide Level 22 21-32 MMOL/L Chloride Level 110 H 98-107 MMOL/L Creatinine 1.12 0.60-1.30 MG/DL Eosinophils # (Auto) 0.3 0.0-0.3 10^3/uL Eosinophils (%) (Auto) 5 0-10 % Estimat Glomerular Filtration Rate 49 Glucose Level 114 H 70-105 MG/DL Hematocrit 37 35-52 % Hemoglobin 12.3 11.5-16.0 G/DL Lipase 29 8-78 U/L Lymphocytes # (Auto) 1.1 1.0-4.0 X 10^3 Lymphocytes (%) (Auto) 16 12-44 % Mean Corpuscular Hemoglobin 33 25-34 PG Mean Corpuscular Hemoglobin Concent 33 32-36 G/DL Mean Corpuscular Volume 100 H 80-99 FL Mean Platelet Volume 9.8 7.4-10.4 FL Monocytes # (Auto) 0.9 0.0-1.0 X 10^3 Monocytes (%) (Auto) 13 H 0-12 % Neutrophils # (Auto) 4.3 1.8-7.8 X 10^3 Neutrophils (%) (Auto) 66 42-75 % Platelet Count 162 130-400 10^3/uL Potassium Level 3.7 3.6-5.0 MMOL/L Red Blood Count 3.71 L 4.35-5.85 10^6/uL Red Cell Distribution Width 12.6 10.0-14.5 % Sodium Level 143 135-145 MMOL/L Total Bilirubin 0.4 0.1-1.0 MG/DL Total Protein 6.3 L 6.4-8.2 G/DL Troponin I < 0.30 <0.30 NG/ML White Blood Count 6.6 4.3-11.0 10^3/uL Urine Amorphous Sediment LARGE JOSE PHOSPHATE H /LPF Urine Bacteria TRACE /HPF Urine Bilirubin NEGATIVE NEGATIVE Urine Casts NONE /LPF Urine Clarity CLEAR Urine Color YELLOW Urine Crystals PRESENT H /LPF Urine Culture Indicated NO Urine Glucose (UA) NEGATIVE NEGATIVE Urine Ketones NEGATIVE NEGATIVE Urine Leukocyte Esterase NEGATIVE NEGATIVE Urine Mucus NEGATIVE /LPF Urine Nitrite NEGATIVE NEGATIVE Urine Protein NEGATIVE NEGATIVE Urine RBC NONE /HPF Urine RBC (Auto) NEGATIVE NEGATIVE Urine Specific [place] 1.010 L 1.016-1.022 Urine Squamous Epithelial Cells 0-2 /HPF Urine Urobilinogen NORMAL NORMAL MG/DL Urine WBC 0-2 /HPF Urine pH 8 5-9 My Orders Orders-SOLIS PIRES MD Cbc With Automated Diff (08/26/16 20:25) Comprehensive Metabolic Panel (08/26/16 20:25) Lipase (08/26/16 20:25) Ua Culture If Indicated (08/26/16 20:25) BNP (08/26/16 20:32) Troponin I (08/26/16 20:32) Chest 1 View, Ap/Pa Only (08/26/16 20:32) Ct Head Wo (08/26/16 20:32) Ekg Tracing (08/26/16 20:32) Continuous Ekg Monitoring (08/26/16 20:32) Meclizine Tablet (Antivert Tablet) (08/26/16 21:15) Medications Given in ED Current Medications Medications Dose Ordered Sig/Cory Route Start Time Stop Time Status Last Admin Dose Admin Meclizine HCl 25 mg ONCE ONCE PO 08/26/16 21:15 08/26/16 21:16 DC 08/26/16 21:28 25 MG Vital Signs/I&O Vital Sign - Last 12Hours 08/26/16 20:19 Temp 97.3 Pulse 52 Resp 16 B/P 150/72 Progress Note : Time: 00:03 Progress Note Patient reports improvement after antevert. She was able to get up and go to the bathroom. ECG Initial ECG Rhythm: Normal Sinus Initial ECG Intervals: Normal Initial ECG Impression: Nonspecific Changes Diagnostic Imaging Comments Date of Exam:08/26/16 CHEST 1 VIEW, AP/PA ONLY INDICATION: Swelling of the legs. Dizziness. Chest pain. COMPARISON: 06/10/2016 FINDINGS: Single frontal radiographic view of the chest was obtained and demonstrates normal cardiac silhouette and pulmonary vasculature. Lungs show low inspiratory volumes, but are otherwise clear. There is no focal consolidation, large effusion, nor pneumothorax. Bony structures show no gross acute abnormalities. IMPRESSION: 1. Low inspiratory volumes, but otherwise no acute cardiopulmonary process. Date of Exam:08/26/16 CT HEAD WO INDICATION: Headache. Dizziness. Nausea. TECHNIQUE: Routine non contrast-enhanced axial images were obtained from the skull base to the vertex. COMPARISON: 08/03/2016 FINDINGS: The ventricles and cortical sulci are normal in size and contour. There is no midline shift or mass-effect. No acute intra-axial hemorrhage is seen. There are no abnormal areas of increased or decreased density to suggest acute hemorrhage or edema. No extra-axial masses or collections are present. The bony calvarium is intact. The visualized paranasal sinuses are unremarkable. The mastoid air cells are clear. IMPRESSION: 1. No acute intracranial abnormality. No CT evidence of mass, acute infarct or intracranial hemorrhage. Departure Impression Impression: Primary Impression: Vertigo Additional Impression: Acute labyrinthitis Disposition: 01 HOME, SELF-CARE Condition: Stable Departure-Patient Inst. Decision time for Depature: 23:00 Referrals: JOVON LING MD (PCP/Family) Primary Care Physician Patient Instructions: SOLIS JULIAN MD Aug 26, 2016 20:41
[2016-08-26 20:54] LABS: ALBUMIN 3.5 G/DL (3.2-4.5); BILIRUBIN,TOTAL 0.4 MG/DL (0.1-1.0); CALCIUM 8.5 MG/DL (8.5-10.1); CREATININE SERUM 1.12 MG/DL (0.60-1.30); POTASSIUM 3.7 MMOL/L (3.6-5.0); TOTAL PROTEIN 6.3 G/DL (6.4-8.2)
--- NOTE | 2016-08-26 21:14 | Diagnostic Imaging Report ---
INDICATION: Swelling of the legs. Dizziness. Chest pain. COMPARISON: 06/10/2016 FINDINGS: Single frontal radiographic view of the chest was obtained and demonstrates normal cardiac silhouette and pulmonary vasculature. Lungs show low inspiratory volumes, but are otherwise clear. There is no focal consolidation, large effusion, nor pneumothorax. Bony structures show no gross acute abnormalities. IMPRESSION: 1. Low inspiratory volumes, but otherwise no acute cardiopulmonary process. Dictated by: Dictated on workstation # [id number]
[2016-08-26] MEDS ORDERED: MECLIZINE 25 MG (ANTIVERT) TAB PO ONE (21:15)
--- NOTE | 2016-08-26 21:25 | Diagnostic Imaging Report ---
INDICATION: Headache. Dizziness. Nausea. TECHNIQUE: Routine non contrast-enhanced axial images were obtained from the skull base to the vertex. COMPARISON: 08/03/2016 FINDINGS: The ventricles and cortical sulci are normal in size and contour. There is no midline shift or mass-effect. No acute intra-axial hemorrhage is seen. There are no abnormal areas of increased or decreased density to suggest acute hemorrhage or edema. No extra-axial masses or collections are present. The bony calvarium is intact. The visualized paranasal sinuses are unremarkable. The mastoid air cells are clear. IMPRESSION: 1. No acute intracranial abnormality. No CT evidence of mass, acute infarct or intracranial hemorrhage. Dictated by: Dictated on workstation # [id number]
[2016-08-26 21:49] LABS: BILIRUBIN,URINE NEGATIVE (NEGATIVE); KETONES,URINE NEGATIVE (NEGATIVE); LEUKOCYTE ESTERASE ,URINE NEGATIVE (NEGATIVE); NITRITE,URINE NEGATIVE (NEGATIVE); PH,URINE 8 (5-9); PROTEIN,URINE NEGATIVE (NEGATIVE); UROBILINOGEN,URINE NORMAL (NORMAL)
[2016-08-26 22:00] LABS: SQUAMOUS EPITHELIAL CELL,UR 0-2 /HPF; WBC,URINE 0-2 /HPF
[2016-08-26 23:20] VITALS: BP 153/83
[2016-10-02] MEDS ORDERED: POTA-51 PO (11:20)
[2016-10-02] MEDS ORDERED: HYDR-3812 PO (11:20)
== END 2016-08-26 23:20 | disposition home or self-care (01) ==
LOC: EDUNIT# 20:19 → ER 20:20
DX: H83.03 Labyrinthitis, bilateral (principal); I10 Essential (primary) hypertension; I25.10 Atherosclerotic heart disease of native coronary artery without angina pectoris; Z79.82 Long term (current) use of aspirin; Z79.899 Other long term (current) drug therapy
CPT/HCPCS: 36415; 70450; 71010; 80053; 81000; 83690; 83880; 84484; 85025; 93005

== ENCOUNTER 2016-09-30 20:30 | Observation (INO) | payer MEDICARE, BC, MEDICAID ==
[~2016-09-30] VITALS: Ht 162.6 cm; Wt 96.0 kg
[2016-09-30] MEDS ORDERED: FAMOTIDINE 20MG/2ML IV (PEPCID) IV STA (20:47)
[2016-09-30] MEDS ORDERED: SCOPOLAMINE 1.5 MG (TRANSDERM-SCOP) PATCH TD ONE (21:00)
[2016-09-30] MEDS ORDERED: ONDANSETRON 4 MG/2 ML (SDV) Z0FRAN IVP ONE (21:00)
[2016-09-30 21:37] LABS: BASOPHILS % (AUTO) 0 % (0-10); EOSINOPHILS # (AUTO) 0.2 10^3/uL (0.0-0.3); EOSINOPHILS % (AUTO) 3 % (0-10); LYMPHOCYTES # (AUTO) 1.1 X 10^3 (1.0-4.0); LYMPHOCYTES % (AUTO) 17 % (12-44); MEAN CORPUSCULAR HEMOGLOBIN 33 PG (25-34); MEAN CORPUSCULAR HGB CONC 34 G/DL (32-36); MEAN CORPUSCULAR VOLUME 97 FL (80-99); MEAN PLATELET VOLUME 9.9 FL (7.4-10.4); MONOCYTES # (AUTO) 1.1 X 10^3 (0.0-1.0); MONOCYTES % (AUTO) 16 % (0-12); NEUTROPHILS # (AUTO) 4.3 X 10^3 (1.8-7.8); NEUTROPHILS % (AUTO) 64 % (42-75); PLATELET COUNT 167 10^3/uL (130-400); RED BLOOD COUNT 4.28 10^6/uL (4.35-5.85); RED CELL DISTRIBUTION WIDTH 11.9 % (10.0-14.5); WHITE BLOOD COUNT 6.7 10^3/uL (4.3-11.0)
[2016-09-30 21:47] LABS: PROTHROMBIN TIME PATIENT 12.5 SEC (12.2-14.7)
[2016-09-30 21:58] LABS: ALANINE AMINOTRANSFERASE 26 U/L (0-55); AMYLASE 71 U/L (25-125); ANION GAP 13 MMOL/L (5-14); ASPARTATE AMINO TRANSFERASE 39 U/L (5-34); BILIRUBIN,TOTAL 0.4 MG/DL (0.1-1.0); BLOOD UREA NITROGEN 22 MG/DL (7-18); BUN/CREATININE RATIO 15; CALCIUM 9.6 MG/DL (8.5-10.1); CARBON DIOXIDE 32 MMOL/L (21-32); CHLORIDE 93 MMOL/L (98-107); CREATININE SERUM 1.45 MG/DL (0.60-1.30); GFR ESTIMATED 36; GLUCOSE 116 MG/DL (70-105); LIPASE 29 U/L (8-78); MAGNESIUM 2.4 MG/DL (1.8-2.4); SODIUM 138 MMOL/L (135-145)
--- NOTE | 2016-09-30 21:59 | Diagnostic Imaging Report ---
INDICATION: Dizziness. COMPARISON: 08/26/2016. TECHNIQUE: Single view of the chest. FINDINGS: Hazy opacities over the lung bases, greater on the right. These are similar to prior examination. Please note the posterior lower lobes are poorly evaluated by portable radiography. Stable borderline cardiomegaly. No pleural effusion or pneumothorax. IMPRESSION: Unchanged hazy opacities over the lung bases, greater on the right. While this is likely secondary to summation shadow of patient's breast tissue and normal pulmonary vasculature, right lower lobe airspace disease cannot be excluded on this portable chest radiograph. If it will alter patient management, PA and lateral chest radiographs are advised for better evaluation of this region. Dictated by: Dictated on workstation # [id number]
[2016-09-30 22:01] LABS: POTASSIUM 2.1 MMOL/L (3.6-5.0)
[2016-09-30 22:04] LABS: TROPONIN I < 0.30 NG/ML (<0.30)
[2016-09-30] MEDS ORDERED: D5 1/2 NS W/KCL 40 MEQ/L 1,000 ML IV SCH (22:15)
--- NOTE | 2016-09-30 22:48 | ED General ---
General Chief Complaint: General Problems/Pain Stated Complaint: DIZZINESS Nursing Triage Note: PT TO ED 1 FROM [facility] W/ C/O CHRONIC DIZZINESS, WORSE TODAY, ABD PAIN X1 MOS. PT DOES REPORT NAUSEA BUT DENIES VOMITING ET DIARRHEA. DOES REPORTS SHE HAS BEEN SEEN BY PCP BUT STATES "THEY DID NOTHING." Nursing Sepsis Screen: No Definite Risk Source of Information: Patient (PT IS POOR HISTORIAN), Halfway Records History of Present Illness Time Seen by Provider: 20:37 Initial Comments PT ARRIVES VIA EMS FROM [facility] PT WITH MULTIPLE COMPLAINTS C/O RUQ PAIN X 1 MONTH C/O HEADACHE C/O DIZZINESS SINCE YESTERDAY--IS CHRONIC PROBLEM C/O NAUSEA, NO VOMITING, NO DIARRHEA--STATES SHE HAS NOT HAD MUCH TO EAT OR DRINK TODAY C/O NECK PAIN C/O DRY MOUTH NO URINARY SYMPTOMS PCP: DR. LING Allergies and Home Medications Allergies Coded Allergies: Penicillins (Verified Allergy, Mild, 07/22/13) latex (Verified Allergy, Mild, 07/22/13) Home Medications Aspirin 81 Mg Tablet.dr, 81 MG PO DAILY, (Reported) Atorvastatin Calcium 80 Mg Tablet, 80 MG PO HS, (Reported) Calcium Carbonate/Vitamin D3 1 Each Tablet, 1 TAB PO BID, (Reported) Clonazepam 0.5 Mg Tablet, 0.5 MG PO HS, (Reported) Cyanocobalamin 1,000 Mcg/Ml Inj, 1,000 MCG IJ EVERY OTHER WEDNESDAY, (Reported) Cyanocobalamin (Vitamin B-12) 1,000 Mcg Tablet, 1,000 MCG PO DAILY, (Reported) Donepezil HCl 10 Mg Tablet, 10 MG PO DAILY, (Reported) Folic Acid 1 Mg Tablet, 1 MG PO DAILY, (Reported) Furosemide 20 Mg Tablet, 20 MG PO DAILY, (Reported) Lamotrigine 150 Mg Tablet, 150 MG PO BID, (Reported) Levetiracetam 750 Mg Tablet, 1,500 MG PO BID, (Reported) TAKES 2 (750MG) TABLETS Melatonin/Pyridoxine 1 Each Tablet, 3 MG PO HS, (Reported) Meloxicam 15 Mg Tablet, 15 MG PO DAILY, (Reported) Memantine HCl 5 Mg Tablet, 5 MG PO DAILY, (Reported) Potassium Chloride 10 Meq Tab.er.prt, 10 MEQ PO DAILY, (Reported) Prednisolone Acetate 1 Ml Drops.susp, 1 DROP OU QID, (Reported) Rivastigmine 9.5 Mg Patch, 9.5 MG TD DAILY, (Reported) Topiramate 200 Mg Tablet, 200 MG PO BID, (Reported) Trazodone HCl 50 Mg Tablet, 50 MG PO HS, (Reported) Zolpidem Tartrate 5 Mg Tablet, 5 MG PO HS, (Reported) Constitutional: see HPI, dizziness, malaise, weakness EENTM: no symptoms reported Respiratory: no symptoms reported, No cough, No short of breath Cardiovascular: no symptoms reported, No chest pain Gastrointestinal: see HPI, abdominal pain, No diarrhea, loss of appetite, nausea, No vomiting Genitourinary: no symptoms reported Musculoskeletal: see HPI, neck pain Skin: no symptoms reported Psychiatric/Neurological: See HPI, Headache, Denies Numbness, Denies Paresthesia Hematologic/Lymphatic: No Symptoms Reported Immunological/Allergic: no symptoms reported Past Tipfiya-Ugpxky-Ymxzif Hx Patient Social History Alcohol Use: Denies Use Recreational Drug Use: No Smoking Status: Former Smoker Type Used: Cigarettes Former Smoker/When Quit: Oct 17, 2012 Recent Foreign Travel: No Contact w/Someone Who Travel: No Recent Infectious Disease Expo: No Recent Hopitalizations: Yes (PSYCH EVALUATIOIN 06/19) Immunizations Up To Date Tetanus Booster (TDap): Unknown Date of Influenza Vaccine: Apr 04, 2016 Seasonal Allergies Seasonal Allergies: No Surgeries HX Surgeries: Yes Surgeries: Gallbladder, Lumpectomy Respiratory Hx Respiratory Disorders: Yes (BRONCHITIS) Cardiovascular Hx Cardiac Disorders: Yes Cardiac Disorders: Coronary Artery Disease, High Cholesterol, Hypertension, Rheumatic Fever Neurological Hx Neurological Disorders: Yes (ENCEPHALITIS) Neurological Disorders: Concussion, Dementia, Seizure Disorder, Traumatic Brain Injury, Vertigo Reproductive System Hx Reproductive Disorders: No Sexually Transmitted Disease: No HIV/AIDS: No Female Reproductive Disorders: Denies Genitourinary Hx Genitourinary Disorders: Yes (INCONTINENCE) Gastrointestinal Hx Gastrointestinal Disorders: Yes ("STOMACH DISCOMFORT"--POST-CHOLECYSTECTOMY SYNDROME) Gastrointestinal Disorders: Gastroesophageal Reflux, Chronic Constipation Musculoskeletal Hx Musculoskeletal Disorders: Yes Musculoskeletal Disorders: Arthritis Endocrine Hx Endocrine Disorders: No HEENT HX ENT Disorders: No Cancer Hx Cancer: No Psychosocial Hx Psychiatric Problems: Yes Behavioral Health Disorders: Sleep Difficulties, Bipolar Integumentary HX Skin/Integumentary Disorder: Yes Skin/Integumentary Disorders: Psoriasis Blood Transfusions Hx Blood Disorders: No Family Medical History Family Medial History: Cancer 03 FATHER (PANCREATIC CANCER) 09 BROTHER ( AT AGE 10) Family history: Cardiovascular disease 03 MOTHER Family history: Diabetes mellitus 03 MOTHER Heart disease 03 MOTHER Physical Exam Vital Signs Vital Sign - Last 12Hours 09/30/16 20:45 Temp 96.8 Pulse 58 Resp 20 B/P (MAP) 144/84 Pulse Ox 96 O2 Delivery Room Air Capillary Refill : Less Than 3 Seconds General Appearance: Obese, Other (SOMEWHAT LETHARGIC, ANXIOUS WITH IV STICKS. VERY TREMULOUS) HEENT: Other (ORAL MUCOSA SLIGHTLY DRY) Neck: Full Range of Motion, Non Tender, Supple Respiratory: Normal Breath Sounds, No Accessory Muscle Use, No Respiratory Distress Cardiovascular: Regular Rate, Rhythm, No JVD, No Murmur, Normal Peripheral Pulses, Extra Beats (FREQUENT ECTOPY) Gastrointestinal: Normal Bowel Sounds, No Organomegaly, No Pulsatile Mass, Soft , Tenderness (RUQ) Back: No CVA Tenderness Extremity: Normal Capillary Refill, Normal Range of Motion, Non Tender, No Calf Tenderness, Pedal Edema (1+ BILATERALLY) Neurologic/Psychiatric: Alert, No Motor/Sensory Deficits (GROSSLY INTACT), environmental emergencies assistant II-XII Norm as Tested, Other (ORIENTED TO PERSON, PLACE, AND GROSSLY AWARE OF SITUATION, POOR MEMORY) Skin: Normal Color, Warm/Dry Progress/Results/Core Measures Results/Orders Lab Results Laboratory Tests Test 09/30/16 11:20 09/30/16 21:31 Range/Units Urine Color YELLOW Urine Clarity CLEAR Urine pH 8 5-9 Urine Specific [place] 1.010 L 1.016-1.022 Urine Protein NEGATIVE NEGATIVE Urine Glucose (UA) NEGATIVE NEGATIVE Urine Ketones NEGATIVE NEGATIVE Urine Nitrite NEGATIVE NEGATIVE Urine Bilirubin NEGATIVE NEGATIVE Urine Urobilinogen NORMAL NORMAL MG/DL Urine Leukocyte Esterase NEGATIVE NEGATIVE Urine RBC (Auto) NEGATIVE NEGATIVE Urine RBC NONE /HPF Urine WBC NONE /HPF Urine Crystals PRESENT H /LPF Urine Amorphous Sediment MOD JOSE PHOSPHATE H /LPF Urine Bacteria NONE /HPF Urine Casts NONE /LPF Urine Mucus NEGATIVE /LPF Urine Culture Indicated NO White Blood Count 6.7 4.3-11.0 10^3/uL Red Blood Count 4.28 L 4.35-5.85 10^6/uL Hemoglobin 14.1 11.5-16.0 G/DL Hematocrit 41 35-52 % Mean Corpuscular Volume 97 80-99 FL Mean Corpuscular Hemoglobin 33 25-34 PG Mean Corpuscular Hemoglobin Concent 34 32-36 G/DL Red Cell Distribution Width 11.9 10.0-14.5 % Platelet Count 167 130-400 10^3/uL Mean Platelet Volume 9.9 7.4-10.4 FL Neutrophils (%) (Auto) 64 42-75 % Lymphocytes (%) (Auto) 17 12-44 % Monocytes (%) (Auto) 16 H 0-12 % Eosinophils (%) (Auto) 3 0-10 % Basophils (%) (Auto) 0 0-10 % Neutrophils # (Auto) 4.3 1.8-7.8 X 10^3 Lymphocytes # (Auto) 1.1 1.0-4.0 X 10^3 Monocytes # (Auto) 1.1 H 0.0-1.0 X 10^3 Eosinophils # (Auto) 0.2 0.0-0.3 10^3/uL Basophils # (Auto) 0.0 0.0-0.1 10^3/uL Prothrombin Time 12.5 12.2-14.7 SEC INR Comment 1.0 0.8-1.4 Activated Partial Thromboplast Time 29 24-35 SEC Sodium Level 138 135-145 MMOL/L Potassium Level 2.1 *L 3.6-5.0 MMOL/L Chloride Level 93 L 98-107 MMOL/L Carbon Dioxide Level 32 21-32 MMOL/L Anion Gap 13 5-14 MMOL/L Blood Urea Nitrogen 22 H 7-18 MG/DL Creatinine 1.45 H 0.60-1.30 MG/DL Estimat Glomerular Filtration Rate 36 BUN/Creatinine Ratio 15 Glucose Level 116 H 70-105 MG/DL Calcium Level 9.6 8.5-10.1 MG/DL Magnesium Level 2.4 1.8-2.4 MG/DL Total Bilirubin 0.4 0.1-1.0 MG/DL Aspartate Amino Transf (AST/SGOT) 39 H 5-34 U/L Alanine Aminotransferase (ALT/SGPT) 26 0-55 U/L Alkaline Phosphatase 108 40-136 U/L Troponin I < 0.30 <0.30 NG/ML Total Protein 7.0 6.4-8.2 G/DL Albumin 4.0 3.2-4.5 G/DL Amylase Level 71 25-125 U/L Lipase 29 8-78 U/L My Orders Orders - RONALNAIMA Robles DO Saline Lock/Iv-Start (09/30/16 20:47) Monitor-Rhythm Ecg Trace Only (09/30/16 20:47) Ct Head Wo (09/30/16 20:47) Amylase (09/30/16 20:47) Cbc With Automated Diff (09/30/16 20:47) Comprehensive Metabolic Panel (09/30/16 20:47) Lipase (09/30/16 20:47) Magnesium (09/30/16 20:47) Protime With Inr (09/30/16 20:47) Partial Thromboplastin Time (09/30/16 20:47) Troponin I (09/30/16 20:47) Ua Culture If Indicated (09/30/16 20:47) Chest 1 View, Ap/Pa Only (09/30/16 20:47) Ondansetron Injection (Zofran Injectio (09/30/16 21:00) Famotidine Injection (Pepcid Injection) (09/30/16 20:47) Scopolamine Patch (Transderm-Scop Patch) (09/30/16 21:00) Ct Abdomen/Pelvis Wo (09/30/16 22:03) D5 1/2 Ns W/Kcl 40 Meq/L (Dextrose 5%/0. (09/30/16 22:15) Ketorolac Injection (Toradol Injection) (09/30/16 23:00) Meclizine Tablet (Antivert Tablet) (09/30/16 23:00) Medications Given in ED Current Medications Medications Dose Ordered Sig/Cory Route Start Time Stop Time Status Last Admin Dose Admin Ondansetron HCl 4 mg ONCE ONCE IVP 09/30/16 21:00 09/30/16 21:01 DC 09/30/16 21:35 4 MG Scopolamine 1.5 mg ONCE ONCE TD 09/30/16 21:00 09/30/16 21:01 DC 09/30/16 21:35 1.5 MG Vital Signs/I&O Vital Sign - Last 12Hours 09/30/16 10/01/16 10/01/16 10/01/16 20:45 00:00 00:05 00:15 Temp 96.8 94.4 Pulse 58 48 52 Resp 20 20 20 B/P (MAP) 144/84 121/58 Pulse Ox 96 93 97 O2 Delivery Room Air Room Air Room Air Blood Pressure Mean: 104 Progress Note : Progress Note NO DETERIORATION IN PT'S CONDITION DURING ER STAY ECG Initial ECG Impression Time: 20:54 Initial ECG Rate: 51 Initial ECG Rhythm: Normal Sinus (INCOMPLETE RBBB) Initial ECG Comparisson: Unchanged Diagnostic Imaging Comments CXR--BILATERAL HAZINESS IN BASES--LIKELY OVERLYING BREAST TISSUE, BUT CANNOT R/ O AIRSPACE DISEASE--UNCHANGED FROM PREVIOUS, PER RADIOLOGIST REPORT @ 2230 CT HEAD--NO ACUTE PROCESS CT ABDOMEN/PELVIS--NO ACUTE PROCESS PER [facility] VIA FAX @ 0780 Reviewed: Reviewed by Me Departure Communication Progress Notes 2252--SPOKE WITH DR. SANDOVAL, ACCEPTS PT FOR ADMIT Impression Impression: Primary Impression: RUQ abdominal pain Additional Impressions: Hypokalemia Dehydration Chronic vertigo Disposition: ADMITTED INPATIENT Condition: Stable Decision to Admit Reason: Admit from ER (General) Decision to Admit/Date: Sep 30, 2016 Time/Decision to Admit Time: 22:55 Departure-Patient Inst. Referrals: JOVON LING MD (PCP/Family) Primary Care Physician NAIMA VILLEDA DO Sep 30, 2016 22:48
[2016-09-30] MEDS ORDERED: MECLIZINE 25 MG (ANTIVERT) TAB PO ONE (23:00)
[2016-09-30] MEDS ORDERED: KETOROLAC 30 MG/ML VIAL IVP ONE (23:00)
[2016-09-30 23:25] LABS: BILIRUBIN,URINE NEGATIVE (NEGATIVE); KETONES,URINE NEGATIVE (NEGATIVE); LEUKOCYTE ESTERASE ,URINE NEGATIVE (NEGATIVE); NITRITE,URINE NEGATIVE (NEGATIVE); PH,URINE 8 (5-9); PROTEIN,URINE NEGATIVE (NEGATIVE); UROBILINOGEN,URINE NORMAL (NORMAL)
[2016-10-01] VITALS: BP 121/58
[2016-10-01] MEDS ORDERED: KETOROLAC 30 MG/ML VIAL IVP PRN (00:45)
[2016-10-01] MEDS: D5 1/2 NS W/KCL 40 MEQ/L 1,000 ML IV SCH ×2 (00:45→07:10)
[2016-10-01] MEDS ORDERED: MECLIZINE 25 MG (ANTIVERT) TAB PO SCH (03:00)
[2016-10-01 04:00] VITALS: BP 134/62
[2016-10-01 05:15] LABS: BASOPHILS % (AUTO) 1 % (0-10); EOSINOPHILS # (AUTO) 0.3 10^3/uL (0.0-0.3); EOSINOPHILS % (AUTO) 5 % (0-10); LYMPHOCYTES # (AUTO) 1.7 X 10^3 (1.0-4.0); LYMPHOCYTES % (AUTO) 28 % (12-44); MEAN CORPUSCULAR HEMOGLOBIN 33 PG (25-34); MEAN CORPUSCULAR HGB CONC 34 G/DL (32-36); MEAN CORPUSCULAR VOLUME 97 FL (80-99); MEAN PLATELET VOLUME 11.4 FL (7.4-10.4); MONOCYTES # (AUTO) 1.3 X 10^3 (0.0-1.0); MONOCYTES % (AUTO) 21 % (0-12); NEUTROPHILS # (AUTO) 2.9 X 10^3 (1.8-7.8); NEUTROPHILS % (AUTO) 46 % (42-75); PLATELET COUNT 134 10^3/uL (130-400); RED CELL DISTRIBUTION WIDTH 11.7 % (10.0-14.5); WHITE BLOOD COUNT 6.2 10^3/uL (4.3-11.0)
[2016-10-01 05:36] LABS: ALBUMIN 3.5 G/DL (3.2-4.5); BILIRUBIN,TOTAL 0.4 MG/DL (0.1-1.0); CALCIUM 8.7 MG/DL (8.5-10.1); CREATININE SERUM 1.37 MG/DL (0.60-1.30); POTASSIUM 2.8 MMOL/L (3.6-5.0); TOTAL PROTEIN 6.2 G/DL (6.4-8.2)
[2016-10-01 06:31] LABS: BAND NEUTROPHILS 7 %; BASOPHILS % (MANUAL) 1 %; EOSINOPHILS % (MANUAL) 2 %; LYMPHOCYTES % (MANUAL) 29 %; NEUTROPHILS % (MANUAL) 44 %
[2016-10-01] MEDS: ONDANSETRON 4 MG/2 ML (SDV) Z0FRAN IV PRN ×2 (07:09→21:21)
[2016-10-01] MEDS: PANTOPRAZOLE 40 MG/10 ML (PROTONIX) VIAL IV SCH (07:09)
--- NOTE | 2016-10-01 07:24 | Diagnostic Imaging Report ---
PROCEDURE: CT head without contrast. TECHNIQUE: Multiple contiguous axial images were obtained through the brain without the use of intravenous contrast. INDICATION: Dizziness. The study compared 08/26/2016. FINDINGS: There is no intracranial hemorrhage, hydrocephalus, edema, mass, mass effect or evidence for elevated intracranial pressures. There has been no change from prior. The basilar cisterns patent, the sulci non-effaced. There are no abnormal extra axial fluid collections. No mass or mass effect. There is no mastoid effusion. The visualized paranasal sinuses nonacute. The calvarium unremarkable. IMPRESSION: Stable normal head CT. Agree with preliminary Dictated by: Dictated on workstation # [id number]
--- NOTE | 2016-10-01 07:34 | Diagnostic Imaging Report ---
PROCEDURE: CT abdomen and pelvis without contrast. TECHNIQUE: Multiple contiguous axial images were obtained through the abdomen and pelvis without the use of intravenous contrast. INDICATION: Right-sided pain. FINDINGS: The lung bases appeared nonacute. Gallbladder is surgically absent. No pathological biliary dilatation. No ascites or perihepatic fluid collection. The nonfocal spleen within normal limits of size. The pancreas and peripancreatic fat unremarkable. There is no hydronephrosis, no opaque kidney stone. Atherosclerotic, aortoiliac vessels nonaneurysmal. There is no appendicitis or diverticulitis. Uterus, adnexa and urinary bladder unremarkable. No pelvic ascites. No abscess, hematoma or other fluid collection. No pneumatosis. No free air. No focal inflammatory process. IMPRESSION: No acute appearing abnormality. Agree with the preliminary. Dictated by: Dictated on workstation # [id number]
[2016-10-01 08:36] VITALS: BP 126/60
[2016-10-01] MEDS ORDERED: OXYB15TA PO (09:14)
[2016-10-01] MEDS ORDERED: CHLO25TA22 PO (09:14)
[2016-10-01] MEDS ORDERED: FURO40TA4 PO (09:14)
[2016-10-01] MEDS ORDERED: ATOR80TA76 PO (09:14)
[2016-10-01] MEDS ORDERED: FLUC200T5 PO (09:14)
[2016-10-01] MEDS ORDERED: PRED5DRO17 OU (09:14)
[2016-10-01] MEDS ORDERED: LAMO200T PO (09:14)
[2016-10-01] MEDS ORDERED: RISP1TAB3 PO (09:14)
[2016-10-01] MEDS ORDERED: MECL-106 PO (09:19)
[2016-10-01] MEDS ORDERED: KETO120S11 TOP (09:21)
[2016-10-01] MEDS ORDERED: TR1C15 TOP (09:21)
--- NOTE | 2016-10-01 10:49 | History & Physical-Hospitalist ---
HPI History of Present Illness: HPI/Chief Complaint CC: Multiple complaints HPI: This is a 66yoWF pt of Dr. Farr who presented form [facility] with dizziness and weakness. Pt was found to have K+ of 2.1 and was admitted for replacement. SW Review: Pt has been seen by Dr. Montiel many times at [facility] but pt did not recognize Dr. Montiel. Patient Interview: Pt states she is doing so-so. Pt denies taking K+ supplement at home. Pt states she is in pain currently. Pt denies taking pain meds at home. Physical exam was stable. Pt states she has been twitching for a couple of months. Pt states she is eating and drinking okay. Pt will continue taking K+. Pt would like to be DC tomorrow. Pt asked what was wrong with her feet. Pt was told being low on K+ may be the cause. Scribed by Ricardo Burns under the direct supervision of Dr. Montiel. Source: patient Exam Limitations: no limitations Date Seen 10/01/16 Attending Physician Lydia Montiel DO PCP Addy Farr MD Referring Physician Date of Admission Sep 30, 2016 at 22:55 Home Medications & Allergies Home Medications Reviewed patient Home Medication Reconciliation Form Allergies Allergies Coded Allergies Penicillins (Verified Allergy, Mild, 07/22/13) latex (Verified Allergy, Mild, 07/22/13) Past Jottprk-Vnaeja-Ngyxmf Hx Patient Social History Marrital Status: single Employed/Student: unemployed Alcohol Use: Denies Use Recreational Drug Use: No Smoking Status: Former Smoker Former smoker/When Quit: Oct 17, 2012 Type Used: Cigarettes Physical Abuse Screen: No Sexual Abuse: No Recent Foreign Travel: No Contact w/other who traveled: No Recent Hopitalizations: Yes (PSYCH EVALUATIOIN 06/19) Recent Infectious Disease Expo: No Immunizations Up To Date Tetanus Booster (TDap): Unknown Date of Influenza Vaccine: Apr 04, 2016 Seasonal Allergies Seasonal Allergies: No Surgeries HX Surgeries: Yes Surgeries: Gallbladder, Lumpectomy Respiratory Hx Respiratory Disorders: Yes (BRONCHITIS) Cardiovascular Hx Cardiovascular Disorders: Yes Cardiac Disorders: Coronary Artery Disease, High Cholesterol, Hypertension, Rheumatic Fever Neurological Hx Neurological Disorders: Yes (ENCEPHALITIS) Neurological Disorders: Concussion, Dementia, Seizure Disorder, Traumatic Brain Injury, Vertigo Reproductive System Hx Reproductive Disorders: No Sexually Transmitted Disease: No HIV/AIDS: No Female Reproductive Disorders: Denies Genitourinary Hx Genitourinary Disorders: Yes (INCONTINENCE) Gastrointestinal Hx Gastrointestinal Disorders: Yes ("STOMACH DISCOMFORT"--POST-CHOLECYSTECTOMY SYNDROME) Gastrointestinal Disorders: Gastroesophageal Reflux, Chronic Constipation Musculoskeletal Hx Musculoskeletal Disorders: Yes Musculoskeletal Disorders: Arthritis Endocrine Hx Endocrine Disorders: No HEENT HX ENT Disorders: No Cancer Hx Cancer: No Psychosocial Hx Psychiatric Problems: Yes Behavioral Health Disorders: Sleep Difficulties, Bipolar Integumentary HX Skin/Integumentary Disorder: Yes Skin/Integumentary Disorders: Psoriasis Blood Transfusions Hx Blood Disorders: No Family Medical History Family Hx: Cancer 03 FATHER (PANCREATIC CANCER) 09 BROTHER ( AT AGE 10) Family history: Cardiovascular disease 03 MOTHER Family history: Diabetes mellitus 03 MOTHER Heart disease 03 MOTHER Review of Systems Constitutional: malaise, weakness EENTM: no symptoms reported Respiratory: no symptoms reported Cardiovascular: no symptoms reported Gastrointestinal: nausea Genitourinary: decreased output Musculoskeletal: back pain Skin: no symptoms reported Psychiatric/Neurological: Anxiety, Depressed All Other Systems Reviewed Negative Unless Noted: Yes Physical Exam Physical Exam Vital Signs Vital Sign - Last 12Hours 09/30/16 20:45 Temp 96.8 Pulse 58 Resp 20 B/P (MAP) 144/84 Pulse Ox 96 O2 Delivery Room Air Capillary Refill : Less Than 3 Seconds General Appearance: No Apparent Distress, WD/WN, Chronically ill Eyes: Bilateral Eye Normal Inspection, Bilateral Eye PERRL HEENT: PERRL/EOMI, Normal ENT Inspection, Pharynx Normal Neck: Full Range of Motion, Normal Inspection, Non Tender, Supple, Carotid Bruit Respiratory: Chest Non Tender, Lungs Clear, Normal Breath Sounds, No Accessory Muscle Use, No Respiratory Distress Cardiovascular: Regular Rate, Rhythm, No Edema, No Gallop, No JVD, No Murmur, Normal Peripheral Pulses Gastrointestinal: Normal Bowel Sounds, No Organomegaly, No Pulsatile Mass, Non Tender, Soft Back: Normal Inspection, No CVA Tenderness, No Vertebral Tenderness Extremity: Normal Capillary Refill, Normal Inspection, Normal Range of Motion, Non Tender, No Calf Tenderness, No Pedal Edema Neurologic/Psychiatric: Alert, Oriented x3, No Motor/Sensory Deficits, Normal Mood/Affect Skin: Normal Color, Warm/Dry Lymphatic: No Adenopathy Results Results/Procedures Lab Laboratory Tests 09/30/16 21:31 10/01/16 04:40 Assessment/Plan Admission Diagnosis Assessment: Severe hyperkalemia with muscle spasms Long-standing mental illness with odd behavior difficult to ascertain organic details HLP Anxiety Debility requiring AL placement Assessment and Plan Plan: Continue to replace potassium and add magnesium IV infusions PT/OT Reconcile all home meds Hydrocodone for pain Monitor closely Clinical Quality Measures DVT/VTE Risk/Contraindication: Risk Factor Score Per Nursin RFS Level Per Nursing on Admit: 4+=Very High LYDIA MONTIEL DO Oct 01, 2016 10:49
[2016-10-01] MEDS: POTASSIUM CL 10MEQ/50ML IVPB 50 ML IV SCH ×8 (11:10→17:30)
[2016-10-01] MEDS: MAGNESIUM 1 GM/100 ML IVPB 100 ML IV SCH ×2 (11:10→12:48)
[2016-10-01] MEDS ORDERED: MECLIZINE 25 MG (ANTIVERT) TAB PO PRN (11:15)
[2016-10-01] MEDS ORDERED: fluCOnazole (DIFLUCAN) 100 MG TAB PO SCH (11:15)
[2016-10-01] MEDS: HYDROcodone/APAP 5 MG/325 MG (LORTAB) TAB PO PRN ×3 (11:25→18:03)
[2016-10-01 12:00] VITALS: BP 117/80
--- NOTE | 2016-10-01 12:02 | Physical Therapy Evaluation ---
PT Evaluation-General Medical Diagnosis Admission Date Sep 30, 2016 at 22:55 Medical Diagnosis: dehydration/right UQ pain Onset Date: Sep 30, 2016 Therapy Diagnosis Therapy Diagnosis: generalized weakness and debility Height/Weight Height (Feet): 5 Height (Inches): 4.00 Weight (Pounds): 211 Weight (Ounces): 11.2 Precautions Precautions/Isolations: Seizure, Fall Prevention, Pressure Ulcer Referral Physician: Tiana Reason for Referral: Evaluation/Treatment Medical History Pertinent Medical History: CAD, Dementia, HTN, TBI Additional Medical History rheumatic fever; encephalitis; bipolar Current History dizziness and weakness; electrolyte imbalance; hypokalemia Reviewed History: Yes Social History Home: Assisted Living Prior/Core FIM Prior Level of Function Functional [place] Measure 0=Not Assessed/NA 4=Minimal Assistance 1=Total Assistance 5=Supervision or Setup 2=Maximal Assistance 6=Modified [place] 3=Moderate Assistance 7=Complete [place] Bed Mobility: 6 Transfers (B,C,W/C) (FIM): 6 Gait: 6 PT Evaluation-Current Transfers Functional [place] Measure 0=Not Assessed/NA 4=Minimal Assistance 1=Total Assistance 5=Supervision or Setup 2=Maximal Assistance 6=Modified [place] 3=Moderate Assistance 7=Complete [place] KOREY LIN PT Oct 01, 2016 12:02
[2016-10-01] MEDS: KCL 20 MEQ TAB (K-DUR) PO SCH ×2 (12:53→16:16)
[2016-10-01] MEDS: OXYBUTYNIN (DITROPAN) 5 MG TAB PO SCH ×2 (12:53→20:01)
--- NOTE | 2016-10-01 13:44 | Physical Therapy Evaluation ---
PT Evaluation-General Medical Diagnosis Admission Date Sep 30, 2016 at 22:55 Medical Diagnosis: dehydration/right UQ pain Onset Date: Sep 30, 2016 Height/Weight Height (Feet): 5 Height (Inches): 4.00 Weight (Pounds): 211 Weight (Ounces): 11.2 Precautions Precautions/Isolations: Seizure, Fall Prevention, Pressure Ulcer Referral Physician: Tiana Reason for Referral: Evaluation/Treatment Medical History Pertinent Medical History: CAD, Dementia, HTN, TBI Reviewed History: Yes Social History Home: Assisted Living Entry Into Home: Level Entry Prior/Core FIM Prior Level of Function Functional [place] Measure 0=Not Assessed/NA 4=Minimal Assistance 1=Total Assistance 5=Supervision or Setup 2=Maximal Assistance 6=Modified [place] 3=Moderate Assistance 7=Complete [place] Bed Mobility: 6 Transfers (B,C,W/C) (FIM): 6 Gait: 6 PT Evaluation-Current Subjective Patient is up in recliner completing lunch and agrees to PT. Patient reports she feels "a little dizzy but not bad". Pain Numeric Pain Scale: 0-No Pain Location: No Pain Reported Objective Patient Orientation: Person, Time, Situation Problem Solving: Fair Attachments: IV ROM/Strength ROM Lower Extremities bilateral LE WFL Strenght Lower Extremities right knee flexion/extension 3+/5; hip flexion 3+/5; ankle dorsi/plantarflexion 3+/5 left knee flexion/extension 3+/5; hip flexion 3+/5; ankle dorsi/plantarflexion 3 +/5 Integumentary/Posture Integumentary refer to nursing notes Transfers Functional [place] Measure 0=Not Assessed/NA 4=Minimal Assistance 1=Total Assistance 5=Supervision or Setup 2=Maximal Assistance 6=Modified [place] 3=Moderate Assistance 7=Complete [place] Transfers (B, C, W/C) (FIM): 4 Scootin Rollin Supine to/from Sit: 4 Sit to/from Stand: 4 Patient required minimal assist due to dizziness and generalized weakness Gait Mode of Locomotion: Walk Anticipated Mode of Locomotion: Walk Gait (FIM): 2 Distance (FIM): 6=309-82 ft Distance: 100' Gait Level of Assist: 4 Gait Persons Needed: 1 Gait Assistive Device: FWW Comments/Gait Description slight unsteadiness with assistance to correct; noted decreased jonathan Balance Sitting Static: Normal Sitting Dynamic: Normal Standing Static: Fair Standing Dynamic: Fair Treatment During gait, patient demonstrated an episode of a "catatonic" like state. Patient transferred to chair and returned to room and bed with minimal assist with RN present during this time. BP, HR and SAO2 WNL. Patient had eyes open, however, would not verbally respond to questions. Patient is in bed with all 4 rails up and bed alarm activated with RN still present for continued assessment. Assessment/Needs 66 y.o. female, will benefit from skilled PT to address functional strength and mobility to improve current LOF and to safely return to [facility] at maximum LOF. Rehab Potential: Good PT Mcfp Goals [place] Goals PT Mcfp Goals Time Frame: Oct 15, 2016 Transfers (B,C,W/C) (FIM): 6 Gait (FIM): 6 Gait distance (FIM): 3=150 ft Distance: 250' Gait Level of Assist: 6 Gait Assistive Device: FWW PT Plan Problem List Problem List: Activity Tolerance, Functional Strength, Safety, Balance, Gait, Transfer Treatment/Plan Treatment Plan: Continue Plan of Care Treatment Plan: Bed Mobility, Education, Functional Activity Tang, Functional Strength, Gait, Safety, Therapeutic Exercise, Transfers Treatment Duration: Oct 15, 2016 # of days/week 5-6 Visits Per Week: 5-6 Pt/Family Agrees w/Plan: Yes Safety Risks/Education Patient Education: Safety Issues Teaching Recipient: Patient Teaching Methods: Discussion Response to Teaching: Reinforcement Needed Discharge Recommendations Therapy D/C Recommendations: Prison (TCU/NH) Time/GCodes Time In: 1315 Time Out: 1335 Total Billed Treatment Time: 20 Total Billed Treatment 1 visit EVModC 20 min G Codes Necessary: Yes PT/OT Therapy GCodes Therapy Functional Limitation: Physical Therapy Test(s)/Tool used to determine: Level of Assistance Scale Functional Limitation-Current Charge Code: MOBCUR Modifier: CK Functional Limitation-Goal Charge Code: MOBGOAL Modifier: KOREY PLAZA PT Oct 01, 2016 13:44
--- NOTE | 2016-10-01 13:45 | Occupational Therapy Eval ---
OT Evaluation-General/PLF Medical Diagnosis Admission Date Sep 30, 2016 at 22:55 Medical Diagnosis: dehydration/right UQ pain Onset Date: Sep 30, 2016 Therapy Diagnosis Therapy Diagnosis: Weakness Height/Weight Height (Feet): 5 Height (Inches): 4.00 Weight (Pounds): 211 Weight (Ounces): 11.2 Precautions Precautions/Isolations: Seizure, Fall Prevention, Pressure Ulcer Weight Bear Status Weight Bearing Restriction: Weight Bearing/Tolerated Referral Physician: Tiana Referral Reason: Activity Tolerance, Self Care, Evaluation/Treatment, Strengthening/ROM Medical History Pertinent Medical History: CAD, Dementia, HTN, TBI Additional Medical History lumpectomy, gallbladder, concussion, dementia, seizure disorder, TBI, bipolar, anxiety disorder Current History Pt. lives in [facility]. Presented to ER with dizziness and weakness. Severe hyperkalemia. Nursing states that she is getting 8 bags of potassium. Reviewed History: Yes Social History Home: Assisted Living Current Living Status: Entry Into Home: Level Entry ADL-Prior Level of Function ADL PLOF Comments Pt. states that before all this, she was independent with daily tasks. Uses a walker. DME/Equipment: Bath Chair, Shower DME/Equipment Comments Pt. uses a walker. Drive Self: No OT Current Status Subjective Pt. states that she is in pain but does not state a pain level. Keeps kicking feet back and forth while in recliner. Rubs them on footrest. Keeps eyes closed while talking to OT. Does not seem to want to participate in evaluation at first. Hesitates to answer questions. Appearance Pt. is up in recliner. OT explains who she is, and purpose of treatment. Pt. keeps eyes closed. Will occassionally open them. Has difficulty answering questions at times. Kicks legs and states that they are bothering her. Does agree to finally walk, after it is explained that this might help her feet. Mental Status/Objective Patient Orientation: Unable to Assess Current Hand Dominance: Right Pt. will not participate in UE assessment stating that her feet hurt too bad. ADL-Treatment Functional [place] Measure 0=Not Assessed/NA 4=Minimal Assistance 1=Total Assistance 5=Supervision or Setup 2=Maximal Assistance 6=Modified [place] 3=Moderate Assistance 7=Complete IndependenceIRFPAI Quality Coding Scale 6 Independent with activity with or without an assistive device 5 Patient requires set up or clean up by helper. Patient completes activity by themselves 4 Supervision or touching assist (CGA). [place] provide cues , steadying assist 3 The helper provides less than half the effort to complete the activity 2 The helper provides more than half the effort to complete the activity 1 Dependent. The helper does all the effort to complete an activity 7 Patient refused to complete or attempt activity 9 The patient did not perform the activity before the current illness or injury 88 Not attempted due to Medical conditions or safety concerns Lower Body Dressing (FIM): 5 (Pt. is able to don socks with SBA. Requires increased time for this task.) Transfers (B, C, W/C) (FIM): 4 (Pt. requires min assist for sit-stand and constant min assistance to ambulate. Ambulated 200 feet, with cues to keep walker straight and to keep going. Pt. would stop in [place], as though she would forget what she was doing.) Other Treatments After treatment, pt. ambulated with min assist back to chair. Table and tray put in front of her. Pt. has clear liquids on tray. Nursing states that she will call doctor to see if she can have a regular diet. All needs met up in chair. Pt. with call light. Education OT Patient Education: Correct positioning, Modified ADL techniques, Progress toward Goal/Update tx plan, Purpose of tx/functional activities, Reviewed precautions, Rehab process, Transfer techniques Teaching Recipient: Patient Teaching Methods: Demonstration, Discussion Response to Teaching: Verbalize Understanding, Return Demonstration OT Short Term Goals Short Term Goals 1=Demonstrate adherence to instructed precautions during ADL tasks. 2=Patient will verbalize/demonstrate understanding of assistive devices/ modifications for ADL. 3=Patient will improve strength/tolerance for activity to enable patient to perform ADL's. OT Alf Goals Alf Goals Time Frame: Oct 08, 2016 Eating (FIM): 6 Grooming(FIM): 6 Bathing(FIM): 5 Upper Body Dressing(FIM): 6 Lower Body Dressing(FIM): 6 Toileting(FIM): 6 Transfers (B,C,W/C) (FIM): 6 Toilet/Commode Transfer(FIM): 6 Shower Transfer(FIM): 5 Additional Goals: 1-Demonstrate ADL Tasks, 2-Verbalize Understanding, 3- ImproveStrength/Tang 1=Demonstrate adherence to instructed precautions during ADL tasks. 2=Patient will verbalize/demonstrate understanding of assistive devices/ modifications for ADL. 3=Patient will improve strength/tolerance for activity to enable patient to perform ADL's. OT Education/Plan Problem List/Assessment Assessment: Decreased Activ Tolerance, Decreased UE Strength, Dependent Transfers, Impaired Cognition, Impaired I ADL's, Impaired Self-Care Skills Discharge Recommendations Plan/Recommendations: Continue POC Therapy D/C Recommendations: Assisted Living, Occupational Therapy Home Care, Scheduled Assistance Target Placement Pt. would like to return to [facility] Treatment Plan/Plan of Care Treatment,Training & Education: Yes Patient would benefit from OT for education, treatment and training to promote independence in ADL's, mobility, safety and/or upper extremity function for ADL' s. Plan of Care: ADL Retraining, Functional Mobility, UE Funct Exercise/Act Treatment Duration: Oct 08, 2016 # of days/week 5-6 Visits Per Week: 5-6 Agreement: Yes Rehab Potential: Fair Time/GCodes Start Time: 11:45 Stop Time: 12:10 Total Time Billed (hr/min): 25 Billed Treatment Time 1, EVm x 10minutes, FA x 15minutes Selfcur- CK Selfgoal- FERNANDA RAMSEY OT Oct 01, 2016 13:45
[2016-10-01] MEDS: prednisoLONE 1% OPTH (PRED FORTE) 5 ML BTL OU SCH (14:30)
[2016-10-01 15:40] VITALS: BP 148/69
[2016-10-01] MEDS ORDERED: NS IV 1000 ML 1,000 ML IV SCH (16:15)
[2016-10-01 19:50] VITALS: BP 146/65
[2016-10-01] MEDS: CALCIUM CARB + VIT D 600 MG (CALCARB + D) TAB PO SCH (20:00)
[2016-10-01] MEDS: LEVETIRACETAM 1,000 MG (KEPPRA) TABLET PO SCH (20:00)
[2016-10-01] MEDS: LEVETIRACETAM 500 MG (KEPPRA) TAB PO SCH (20:00)
[2016-10-01] MEDS: toPIRamate 100 MG (TOPAMAX) TAB PO SCH (20:01)
[2016-10-01] MEDS: TRIAMCINOLONE 0.1% CR (KENALOG) 15 GM TUBE TOP SCH (20:02)
[2016-10-01] MEDS ORDERED: traZODone 50 MG (DESYREL) TAB PO SCH (21:00)
[2016-10-01] MEDS ORDERED: MELATONIN 3 MG TABLET PO SCH (21:00)
[2016-10-01] MEDS ORDERED: ATORVASTATIN 80 MG (LIPITOR) TABLET PO SCH (21:00)
[2016-10-01] MEDS ORDERED: DONEPEZIL 10 MG (ARICEPT) TAB PO SCH (21:00)
[2016-10-01] MEDS ORDERED: clonazePAM 0.5 MG (KlonoPIN) TAB PO SCH (21:00)
[2016-10-01] MEDS ORDERED: ZOLPIDEM 5 MG (AMBIEN) TAB PO SCH (21:00)
[2016-10-02 00:20] VITALS: BP 118/55
[2016-10-02 04:30] VITALS: BP 107/56
[2016-10-02] MEDS: KCL 20 MEQ TAB (K-DUR) PO SCH ×2 (06:14→12:25)
[2016-10-02 06:19] LABS: BASOPHILS % (AUTO) 1 % (0-10); EOSINOPHILS # (AUTO) 0.3 10^3/uL (0.0-0.3); EOSINOPHILS % (AUTO) 5 % (0-10); LYMPHOCYTES # (AUTO) 1.5 X 10^3 (1.0-4.0); LYMPHOCYTES % (AUTO) 26 % (12-44); MEAN CORPUSCULAR HEMOGLOBIN 32 PG (25-34); MEAN CORPUSCULAR HGB CONC 32 G/DL (32-36); MEAN CORPUSCULAR VOLUME 99 FL (80-99); MEAN PLATELET VOLUME 10.5 FL (7.4-10.4); MONOCYTES # (AUTO) 1.1 X 10^3 (0.0-1.0); MONOCYTES % (AUTO) 18 % (0-12); NEUTROPHILS % (AUTO) 51 % (42-75); PLATELET COUNT 152 10^3/uL (130-400); RED BLOOD COUNT 4.05 10^6/uL (4.35-5.85); WHITE BLOOD COUNT 5.9 10^3/uL (4.3-11.0)
[2016-10-02 06:52] LABS: ALBUMIN 3.5 G/DL (3.2-4.5); BILIRUBIN,TOTAL 0.4 MG/DL (0.1-1.0); CALCIUM 9.4 MG/DL (8.5-10.1); CREATININE SERUM 1.32 MG/DL (0.60-1.30); TOTAL PROTEIN 6.2 G/DL (6.4-8.2)
[2016-10-02 08:00] VITALS: BP 133/77
[2016-10-02] MEDS ORDERED: FOLIC ACID 1 MG TAB PO SCH (09:00)
[2016-10-02] MEDS ORDERED: MELOXICAM 7.5 MG (MOBIC) TABLET PO SCH (09:00)
[2016-10-02] MEDS ORDERED: RIVASTIGMINE 9.5 MG TD SCH (09:00)
[2016-10-02] MEDS ORDERED: ASPIRIN E.C. 81 MG (ECOTRIN) TAB PO SCH (09:00)
[2016-10-02] MEDS ORDERED: risperiDONE 1 MG (RisperDAL) TAB PO SCH (09:00)
[2016-10-02] MEDS: HYDROcodone/APAP 5 MG/325 MG (LORTAB) TAB PO PRN ×3 (09:00→12:30)
[2016-10-02] MEDS ORDERED: MEMANTINE 5 MG (NAMENDA) TABLET PO SCH (09:00)
[2016-10-02] MEDS: CALCIUM CARB + VIT D 600 MG (CALCARB + D) TAB PO SCH (09:47)
[2016-10-02] MEDS: OXYBUTYNIN (DITROPAN) 5 MG TAB PO SCH ×2 (09:48→12:25)
[2016-10-02] MEDS: LEVETIRACETAM 500 MG (KEPPRA) TAB PO SCH (09:48)
[2016-10-02] MEDS: LEVETIRACETAM 1,000 MG (KEPPRA) TABLET PO SCH (09:52)
[2016-10-02] MEDS: toPIRamate 100 MG (TOPAMAX) TAB PO SCH (09:53)
[2016-10-02] MEDS: prednisoLONE 1% OPTH (PRED FORTE) 5 ML BTL OU SCH (09:54)
[2016-10-02] MEDS: PANTOPRAZOLE 40 MG/10 ML (PROTONIX) VIAL IV SCH (09:56)
[2016-10-02] MEDS: TRIAMCINOLONE 0.1% CR (KENALOG) 15 GM TUBE TOP SCH (10:00)
--- NOTE | 2016-10-02 10:19 | Physical Therapy Daily Note ---
PT Daily Note-Current Subjective Patient is in bed and very alert and agreeable to participate with PT. Patient has no c/o at this time. Pain Numeric Pain Scale: 0-No Pain Location: No Pain Reported Mental Status Patient Orientation: Normal For Age Transfers Functional [place] Measure 0=Not Assessed/NA 4=Minimal Assistance 1=Total Assistance 5=Supervision or Setup 2=Maximal Assistance 6=Modified [place] 3=Moderate Assistance 7=Complete IndependenceIRFPAI Quality Coding Scale 6 Independent with activity with or without an assistive device 5 Patient requires set up or clean up by helper. Patient completes activity by themselves 4 Supervision or touching assist (CGA). [place] provide cues , steadying assist 3 The helper provides less than half the effort to complete the activity 2 The helper provides more than half the effort to complete the activity 1 Dependent. The helper does all the effort to complete an activity 7 Patient refused to complete or attempt activity 9 The patient did not perform the activity before the current illness or injury 88 Not attempted due to Medical conditions or safety concerns Transfers (B, C, W/C) (FIM): 6 Scootin Rollin Supine to/from Sit: 6 Sit to/from Stand: 6 Gait Training Gait (FIM): 6 Distance (FIM): 3=150 ft Distance: 500' Gait Level of Assist: 6 Gait Assistive Device: FWW safe and functional with FWW Assessment Patient is currently at [facility] and per , patient will dismiss to [facility] on this date. PT [employer] Support [employer] Goals Fdc Goals PT Fdc Goals Time Frame: Oct 15, 2016 Transfers (B,C,W/C) (FIM): 6 Gait (FIM): 6 Gait distance (FIM): 3=150 ft Distance: 250' Gait Level of Assist: 6 Gait Assistive Device: FWW PT Plan Treatment/Plan Treatment Plan: Discontinue PT, goals met Treatment Plan: Bed Mobility, Education, Functional Activity Tang, Functional Strength, Gait, Safety, Therapeutic Exercise, Transfers Treatment Duration: Oct 15, 2016 Visits Per Week: 5-6 Time/GCodes Time In: 915 Time Out: 930 Total Billed Treatment Time: 15 Total Billed Treatment 1 visit FA 15 min G Codes Necessary: Yes PT/OT Therapy GCodes Therapy Functional Limitation: Physical Therapy Test(s)/Tool used to determine: Level of Assistance Scale Functional Limitation-Current Charge Code: MOBCUR Modifier: CK Functional Limitation-Goal Charge Code: MOBGOAL Modifier: CI Functional Limitation-D/C Charge Codes: MOBDC Modifier: CI KOREY LIN PT Oct 02, 2016 10:19
[2016-10-02] MEDS ORDERED: POTA-51 PO (11:20)
[2016-10-02] MEDS ORDERED: HYDR-3812 PO (11:20)
--- NOTE | 2016-10-02 11:24 | Discharge Instructions ---
Discharge Instructions Discharge Medications New, Converted or Re-Newed RX: Transmitted to Pharmacy New Medications: Potassium Chloride (Potassium Chloride) 20 Meq Tablet.er 20 MEQ PO DAILY, #30 TAB Hydrocodone/Acetaminophen (Hydrocodon -Acetaminophen 5-325) 1 Each Tablet 1 TAB PO Q4H PRN for MODERATE PAIN, #15 TAB Continued Medications: Aspirin (Aspirin EC) 81 Mg Tablet.dr 81 MG PO DAILY, TAB Atorvastatin Calcium (Atorvastatin Calcium) 80 Mg Tablet 80 MG PO DAILY, TAB Calcium Carbonate/Vitamin D3 (Calcium 600 With Vit D Tab) 1 Each Tablet 1 TAB PO BID, TAB Clonazepam (Clonazepam) 0.5 Mg Tablet 0.5 MG PO HS, TAB Donepezil HCl (Donepezil HCl) 10 Mg Tablet 10 MG PO HS, TAB Fluconazole (Fluconazole) 200 Mg Tablet 200 MG PO Q48H, TAB TAKE ON ODD DAYS RELATED TO BACTERIAL INFECTION Folic Acid (Folic Acid) 1 Mg Tablet 1 MG PO DAILY, TAB Furosemide (Furosemide) 40 Mg Tablet 40 MG PO DAILY, TAB Ketoconazole (Ketoconazole) 120 Ml Shampoo TOP DAILY, EA DAILY X 2 WEEKS THEN TWICE WEEKLY Lamotrigine (Lamotrigine) 200 Mg Tablet 200 MG PO BID, TAB Levetiracetam (Levetiracetam) 750 Mg Tablet 1500 MG PO BID, TAB TAKES 2 (750MG) TABLETS Meclizine HCl (Meclizine HCl) 25 Mg Tablet 25 MG PO Q6H PRN for DIZZINESS, TAB Melatonin/Pyridoxine (Melatonin 3 mg Tablet) 1 Each Tablet 3 MG PO HS, TAB Meloxicam (Meloxicam) 15 Mg Tablet 15 MG PO DAILY, TAB Memantine HCl (Memantine HCl) 5 Mg Tablet 5 MG PO DAILY, TAB Oxybutynin Chloride (Oxybutynin Chloride ER) 15 Mg Tab.er.24 15 MG PO HS, TAB Prednisolone Acetate (Prednisolone Acetate) 5 Ml Drops.susp 1 DROP OU Q48H, EA Risperidone (Risperidone) 1 Mg Tablet 1 MG PO DAILY, TAB Rivastigmine (Exelon) 9.5 Mg Patch 9.5 MG TD DAILY, PATCH Topiramate (Topiramate) 200 Mg Tablet 200 MG PO BID, TAB Trazodone HCl (Trazodone HCl) 50 Mg Tablet 50 MG PO HS, TAB Triamcinolone Acet (Triamcinolone Acetonide 0.1% Cream) 15 Gm Cr TOP BID, EA Zolpidem Tartrate (Zolpidem Tartrate) 5 Mg Tablet 5 MG PO HS, TAB Discontinued Medications: Chlorthalidone (Chlorthalidone) 25 Mg Tablet 25 MG PO DAILY, TAB Potassium Chloride (Klor-Con M10) 10 Meq Tab.er.prt 10 MEQ PO DAILY, TAB Patient Instructions Goal/Follow Up Appt: Dr Farr in 1 week Patient Instructions: Stop taking Chlorathalidone Activity & Diet Discharge Diet: No Restrictions Activity as Tolerated: Yes DADA SANDOVAL DO Oct 02, 2016 11:24
--- NOTE | 2016-10-02 11:39 | Discharge Summary-Hospitalist ---
Diagnosis/Chief Complaint Date of Admission Oct 01, 2016 at 00:15 Date of Discharge Discharge Date: Oct 02, 2016 Admission Diagnosis Assessment: Severe hypokalemia with muscle spasms Long-standing mental illness with odd behavior difficult to ascertain organic details HLP Anxiety Debility requiring AL placement Discharge Diagnosis Assessment: Severe hypokalemia with muscle spasms Long-standing mental illness with odd behavior difficult to ascertain organic details HLP Anxiety Debility requiring AL placement Plan: Continue to replace potassium and add magnesium IV infusions PT/OT Reconcile all home meds Hydrocodone for pain Monitor closely Reason Hospital Visit/Course CC: Multiple complaints HPI: This is a 66[address] pt of Dr. Farr who presented form [facility] with dizziness and weakness. Pt was found to have K+ of 2.1 and was admitted for replacement. SW Review: Pt has been seen by Dr. Montiel many times at [facility] but pt did not recognize Dr. Montiel. Patient Interview: Pt states she is doing so-so. Pt denies taking K+ supplement at home. Pt states she is in pain currently. Pt denies taking pain meds at home. Physical exam was stable. Pt states she has been twitching for a couple of months. Pt states she is eating and drinking okay. Pt will continue taking K+. Pt would like to be DC tomorrow. Pt asked what was wrong with her feet. Pt was told being low on K+ may be the cause. Scribed by Ricardo Burns under the direct supervision of Dr. Montiel. Note from 10/02/16 Chart Review: K+ 4.0, Creat 1.2 SW Review: Pt K+ is perfect. Pt will be DC to [facility]. Patient Interview: Pt was told her K+ was normal at 4.0. Pt was told that Chlorthalidone may be the reason her K+ has been low. Physical exam was stable. PT Review: Pt will be DC today. Pt is ambulating well today. Scribed by Ricardo Burns under the direct supervision of Dr. Montiel. No fever, vital signs stable, pleasant, much improved, interacting well Regular rate rhythm, clear to auscultation bilaterally No edema Discharge Summary Discharge Physical Examination Allergies: Coded Allergies: Penicillins (Verified Allergy, Mild, 07/22/13) latex (Verified Allergy, Mild, 07/22/13) Vitals & I&Os Vital Signs Date Time Temp Pulse Resp B/P (MAP) Pulse Ox O2 Delivery O2 Flow Rate FiO2 10/02/16 08:00 97.6 54 20 133/77 92 Room Air Hospital Course Labs (last 24 hrs) Laboratory Tests 10/02/16 05:12: White Blood Count 5.9, Red Blood Count 4.05L, Hemoglobin 13.0, Hematocrit 40, Mean Corpuscular Volume 99, Mean Corpuscular Hemoglobin 32, Mean Corpuscular Hemoglobin Concent 32, Red Cell Distribution Width 12.0, Platelet Count 152, Mean Platelet Volume 10.5H, Neutrophils (%) (Auto) 51, Lymphocytes (%) (Auto) 26 , Monocytes (%) (Auto) 18H, Eosinophils (%) (Auto) 5, Basophils (%) (Auto) 1, Neutrophils # (Auto) 3.0, Lymphocytes # (Auto) 1.5, Monocytes # (Auto) 1.1H, Eosinophils # (Auto) 0.3, Basophils # (Auto) 0.0, Sodium Level 139, Potassium Level 4.0, Chloride Level 105, Carbon Dioxide Level 28, Anion Gap 6, Blood Urea Nitrogen 20H, Creatinine 1.32H, Estimat Glomerular Filtration Rate 40, BUN/ Creatinine Ratio 15, Glucose Level 88, Calcium Level 9.4, Total Bilirubin 0.4, Aspartate Amino Transf (AST/SGOT) 33, Alanine Aminotransferase (ALT/SGPT) 21, Alkaline Phosphatase 86, Total Protein 6.2L, Albumin 3.5 Pending Labs Discharge Home Medications: Active Scripts Active Potassium Chloride 20 Meq Tablet.er 20 Meq PO DAILY Hydrocodon -Acetaminophen 5-325 (Hydrocodone/Acetaminophen) 1 Each Tablet 1 Tab PO Q4H PRN Reported Triamcinolone Acetonide 0.1% Cream (Triamcinolone Acet) 15 Gm Cr TOP BID Ketoconazole 120 Ml Shampoo TOP DAILY DAILY X 2 WEEKS THEN TWICE WEEKLY Meclizine HCl 25 Mg Tablet 25 Mg PO Q6H PRN Lamotrigine 200 Mg Tablet 200 Mg PO BID Risperidone 1 Mg Tablet 1 Mg PO DAILY Prednisolone Acetate 5 Ml Drops.susp 1 Drop OU Q48H Atorvastatin Calcium 80 Mg Tablet 80 Mg PO DAILY Furosemide 40 Mg Tablet 40 Mg PO DAILY Oxybutynin Chloride ER (Oxybutynin Chloride) 15 Mg Tab.er.24 15 Mg PO HS Fluconazole 200 Mg Tablet 200 Mg PO Q48H TAKE ON ODD DAYS RELATED TO BACTERIAL INFECTION Meloxicam 15 Mg Tablet 15 Mg PO DAILY Melatonin 3 mg Tablet (Melatonin/Pyridoxine) 1 Each Tablet 3 Mg PO HS Exelon (Rivastigmine) 9.5 Mg Patch 9.5 Mg TD DAILY Topiramate 200 Mg Tablet 200 Mg PO BID Levetiracetam 750 Mg Tablet 1,500 Mg PO BID TAKES 2 (750MG) TABLETS Trazodone HCl 50 Mg Tablet 50 Mg PO HS Memantine HCl 5 Mg Tablet 5 Mg PO DAILY Folic Acid 1 Mg Tablet 1 Mg PO DAILY Clonazepam 0.5 Mg Tablet 0.5 Mg PO HS Aspirin EC (Aspirin) 81 Mg Tablet.dr 81 Mg PO DAILY Donepezil HCl 10 Mg Tablet 10 Mg PO HS Zolpidem Tartrate 5 Mg Tablet 5 Mg PO HS Calcium 600 With Vit D Tab (Calcium Carbonate/Vitamin D3) 1 Each Tablet 1 Tab PO BID Instructions to patient/family Please see electonic discharge instructions given to patient. Clinical Quality Measures DVT/VTE Risk/Contraindication: Risk Factor Score Per Nursin RFS Level Per Nursing on Admit: 4+=Very High DADA MONTIEL DO Oct 02, 2016 11:39
[2016-10-02 12:55] VITALS: BP 128/88
--- NOTE | 2016-10-02 14:19 | Occ Therapy Progress Note ---
Therapy Progress Note 10-02-16 Pt discharged back to [facility] today. Per PT note, pt is now mod I with ambulation. Self cur 10-01-16 (CK Min assist toileting on 10-01-16) Self goal CI (mod I FIM for toileting) Self DC CI (based on Mod I amb and should be able to toilet mod I) ANA TRAORE OT Oct 02, 2016 14:19
[2016-10-03] MEDS ORDERED: SCOPOLAMINE 1.5 MG (TRANSDERM-SCOP) PATCH TOP SCH (21:00)
--- OUTSIDE RECORDS SUMMARY | 2016-10-25 05:16 | XMS REPORT | Continuity of Care Document ---
Author Author [facility] Organization [facility] Address Unknown Phone Unavailable Care Team Providers Care Cold Saw Operator Name Role Phone No Pcp, Na PCP Unavailable Source Comments Some departments are not documenting in the electronic medical record. 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 Pulse 56 05/18/2016 4:43 PM BOILER WATER TESTER Temperature 36.4 C (97.6 F) 05/19/2016 8:00 AM BOILER WATER TESTER Respiratory Rate - - Height 1.626 m (5' 4") 05/18/2016 4:43 PM BOILER WATER TESTER Weight 95.255 kg (210 lb) 05/18/2016 4:43 PM BOILER WATER TESTER Body Mass Index 36.03 05/18/2016 4:43 PM BOILER WATER TESTER Oxygen Saturation 97% 05/19/2016 8:00 AM BOILER WATER TESTER Plan of Care Health Maintenance Due Date Last Done Comments Hepatitis C Screening 1950 Physical (Comprehensive) 1958 Exam Pertussis Vaccine 1962 Tetanus Vaccine 1968 Colorectal Cancer 2001 Screening Breast Cancer Screening 07/22/2008 07/22/2007, 07/22/2007 Shingles Vaccine 2011 Osteoporosis Screening 2016 Prevnar/Pneumovax (#1) 2016 Influenza Vaccine 03/05/2017 Results from Last 3 Months Not on file
--- OUTSIDE RECORDS SUMMARY | 2016-10-25 05:17 | XMS REPORT ---
Author Author [facility] Medical Staff Organization [facility] Address [address] [place], [place] [id number] Phone [phone] Summary purpose CCDA Sent to [facility] Chief Complaint and Reason for Visit No authorized Reason for Visit (Admitting Diagnosis) is available for this visit. Problem list No authorized problems tracked for continuity of care are available for this visit. Encounters No authorized problems tracked for encounter diagnoses are available for this visit. Medications Discharge Medications Status Medication Directions Current acetaminophen (TYLENOL) 325 mg: TABLET 650 MG oral EVERY FOUR HOURS NEEDED for PAIN OR FEVER Current alum-mag hydroxide-simeth (MAALOX) 400-400-40 mg/5 mL: SUSPENSION 30 milliliter(s) oral EVERY FOUR HOURS NEEDED for GI UPSET Current ASPIRIN 81 mg: TAB CHEW 81 MG oral ONE TIME A DAY Current atorvastatin (LIPITOR) 20 mg: TABLET 80 MG oral ONE TIME A DAY Current calcium carbonate-vitamin D3 (CALCIUM CARB/VITAMIN D3) 500 mg(1,250mg ) -200 unit: TABLET 500 MG oral TWO TIMES A DAY Current cetirizine (ZYRTEC) 10 mg: TABLET 10 MG oral ONE TIME A DAY Current clonazePAM (KLONOPIN) 0.5 mg: TABLET 0.5 MG oral BEDTIME Current cyanocobalamin (vitamin B-12) (VITAMIN B-12) 500 mcg: TABLET 1000 MCG oral ONE TIME A DAY Current diphenoxylate-atropine (LOMOTIL) 2.5-0.025 mg: TABLET 2 TAB oral EVERY SIX HOURS NEEDED for DIARRHEA Current donepezil (ARICEPT) 10 mg: TABLET 10 MG oral BEDTIME Current FOLIC ACID 1 mg: TABLET 1 MG oral ONE TIME A DAY Current furosemide (LASIX) 20 mg: TABLET 20 MG oral ONE TIME A DAY Current lamoTRIgine (LAMICTAL) 100 mg: TABLET 150 MG oral TWO TIMES A DAY Current lanolin fowpkxl-ws-o.pet-ceres (EUCERIN CREAM): CREAM 1 APPLIC topical Give TOP NEEDED for APPLY TO AFFECTED AREA Current levETIRAcetam (KEPPRA) 500 mg: TABLET 1500 MG oral TWO TIMES A DAY Current lurasidone (LATUDA) 40 mg: TABLET 60 MG oral DAILY AT 5 PM Current magnesium hydroxide (MILK OF MAGNESIA) 400 mg/5 mL: SUSPENSION 30 milliliter(s) oral ONE TIME A DAY NEEDED for CONSTIPATION Current MELATONIN 3 mg: TABLET 3 MG oral BEDTIME Current meloxicam (MOBIC) 15 mg: TABLET 15 MG oral ONE TIME A DAY Current memantine (NAMENDA) 5 mg: TABLET 5 MG oral ONE TIME A DAY Current phenol (CHLORASEPTIC SPRAY) 1.4 %: SPRAY 1 SPRAY Mucous Membrane Give MM NEEDED for THROAT PAIN Current potassium chloride (KLOR-CON) 10 mEq: Tab ER 12HR 10 MEQ oral ONE TIME A DAY Current prednisoLONE acetate (OMNIPRED) 1 %: DROPS 1 drop(s) ophthalmic Give EyeBoth ONE TIME A DAY Current rivastigmine (EXELON) 9.5 mg/24 hour: PATCH TD24 1 PATCH Transdermal Give TD ONE TIME A DAY Current sodium phosphates (FLEETS ENEMA) 19-7 gram/118 mL: ENEMA 133 ML rectal Give RECT NEEDED for IF NO RESULTS FROM MOM Current topiramate (TOPAMAX) 100 mg: TABLET 200 MG oral TWO TIMES A DAY Current traZODone (DESYREL) 100 mg: TABLET 50 MG oral BEDTIME Current zolpidem (AMBIEN) 5 mg: TABLET 5 MG oral BEDTIME Stopped Ambien 5 mg tablet 5 miligram(s) oral DAILY AT 8 PM Stopped Aricept 10 mg tablet 10 miligram(s) oral ONE TIME A DAY Stopped Aspirin Low Dose 81 mg tablet,delayed release 81 miligram(s) oral ONE TIME A DAY Stopped Calcium + D 600 mg (1,500 mg)-200 unit tablet 1 tab(s) oral TWO TIMES A DAY Stopped clonazePAM 0.5 mg tablet 0.5 miligram(s) oral DAILY AT 8 PM Stopped Exelon Patch 9.5 mg/24 hr transdermal 1 patch(es) Transdermal ONE TIME A DAY remove in 12 hours Stopped folic acid 1 mg tablet 1 miligram(s) oral ONE TIME A DAY Stopped Keppra 750 mg tablet 1500 miligram(s) oral TWO TIMES A DAY Stopped Lamictal 100 mg tablet 150 miligram(s) oral TWO TIMES A DAY Stopped Lasix 20 mg tablet 20 miligram(s) oral ONE TIME A DAY Stopped Lipitor 80 mg tablet 80 miligram(s) oral ONE TIME A DAY Stopped melatonin 3 mg tablet 3 miligram(s) oral DAILY AT 8 PM Stopped meloxicam 15 mg tablet 15 miligram(s) oral ONE TIME A DAY with food Stopped Namenda 5 mg tablet 5 miligram(s) oral ONE TIME A DAY Stopped potassium chloride ER 10 mEq capsule,extended release 10 milliequivilant(s) oral ONE TIME A DAY Stopped Pred Forte 1 % eye drops,suspension 1 drop(s) ophthalmic ONE TIME A DAY Stopped Topamax 100 mg tablet 2 tab(s) oral TWO TIMES A DAY Stopped traZODone 50 mg tablet 50 miligram(s) oral DAILY AT 8 PM Stopped Vitamin B-12 1,000 mcg tablet 1000 microgram(s) oral ONE TIME A DAY Allergies, adverse reactions, alerts Allergen Category Ingredient Status Reaction Severity Onset Penicillins Drug Penicillins Active latex Drug latex Active Immunizations No immunizations recorded for this patient visit Relevant diagnostic tests and/or laboratory data RESULTS CBC [id number]:15:00 Result Normal Range Units WBC 5.29 4.60-10.20 x 103/uL RBC 4.05 4.04-6.13 x 106/uL Hemoglobin 13.4 12.2-18.1 g/dl Hematocrit 41.7 37.7-53.7 % MCV H 103.0 80.0-97.0 FL MCH H 33.1 27.0-31.2 pg MCHC 32.1 31.8-35.4 g/dl RDW 13.0 11.6-14.8 % Platelets L 123 142-424 x 103/uL MPV 10.8 9.4-12.4 FL Manual Diff Not Indicated Neutrophil % 56.1 37-80 % Neutrophils 2.97 2.0-6.9 x 103/uL Lymphocyte % 20.2 10-50 % Lymphocytes 1.07 0.6-3.4 x 103/uL Monocyte % H 15.9 0-12 % Monocytes 0.84 0.0-1.0 x 103/uL Eosinophil % H 7.2 0-7 % Eosinophils 0.38 0-0.7 x 103/uL Basophil % 0.6 0-2 % Basophils 0.03 0.0-0.1 x 103/uL [id number]:35:00 Result Normal Range Units WBC 4.87 4.60-10.20 x 103/uL RBC L 3.89 4.04-6.13 x 106/uL Hemoglobin 12.9 12.2-18.1 g/dl Hematocrit 40.0 37.7-53.7 % MCV H 102.8 80.0-97.0 FL MCH H 33.2 27.0-31.2 pg MCHC 32.3 31.8-35.4 g/dl RDW 12.6 11.6-14.8 % Platelets 160 142-424 x 103/uL MPV 10.1 9.4-12.4 FL Manual Diff Not Indicated Neutrophil % 60.2 37-80 % Neutrophils 2.93 2.0-6.9 x 103/uL Lymphocyte % 22.0 10-50 % Lymphocytes 1.07 0.6-3.4 x 103/uL Monocyte % H 13.3 0-12 % Monocytes 0.65 0.0-1.0 x 103/uL Eosinophil % 3.9 0-7 % Eosinophils 0.19 0-0.7 x 103/uL Basophil % 0.6 0-2 % Basophils 0.03 0.0-0.1 x 103/uL :30:00 Result Normal Range Units WBC 8.23 4.60-10.20 x 103/uL RBC L 3.81 4.04-6.13 x 106/uL Hemoglobin 12.9 12.2-18.1 g/dl Hematocrit 37.8 37.7-53.7 % MCV H 99.2 80.0-97.0 FL MCH H 33.9 27.0-31.2 pg MCHC 34.1 31.8-35.4 g/dl RDW 12.5 11.6-14.8 % Platelets 153 142-424 x 103/uL MPV 10.6 9.4-12.4 FL Manual Diff Not Indicated Neutrophil % 71.1 37-80 % Neutrophils 5.85 2.0-6.9 x 103/uL Lymphocyte % 14.7 10-50 % Lymphocytes 1.21 0.6-3.4 x 103/uL Monocyte % 11.8 0-12 % Monocytes 0.97 0.0-1.0 x 103/uL Eosinophil % 2.2 0-7 % Eosinophils 0.18 0-0.7 x 103/uL Basophil % 0.2 0-2 % Basophils 0.02 0.0-0.1 x 103/uL :50:00 Result Normal Range Units WBC 5.73 4.60-10.20 x 103/uL RBC L 4.01 4.04-6.13 x 106/uL Hemoglobin 13.3 12.2-18.1 g/dl Hematocrit 41.4 37.7-53.7 % MCV H 103.2 80.0-97.0 FL MCH H 33.2 27.0-31.2 pg MCHC 32.1 31.8-35.4 g/dl RDW 12.8 11.6-14.8 % Platelets 165 142-424 x 103/uL MPV 10.8 9.4-12.4 FL Manual Diff Not Indicated Neutrophil % 54.6 37-80 % Neutrophils 3.13 2.0-6.9 x 103/uL Lymphocyte % 25.5 10-50 % Lymphocytes 1.46 0.6-3.4 x 103/uL Monocyte % H 14.7 0-12 % Monocytes 0.84 0.0-1.0 x 103/uL Eosinophil % 4.9 0-7 % Eosinophils 0.28 0-0.7 x 103/uL Basophil % 0.3 0-2 % Basophils 0.02 0.0-0.1 x 103/uL Urinalysis :35:00 Result Normal Range Units Site Voided Urine Color Yellow Yellow Urine Appearance Clear Clear Urine Glucose Negative Negative Urine Bilirubin Negative Negative Urine Ketones Negative Negative Urine Specific Wolverine 1.010 1.010-1.020 Urine PH 7.0 5.5-7.5 Urine Protein Negative Negative Urine Urobilinogen 0.2 0.2-1.0 Urine Nitrites Negative Negative Urine Blood AB Trace Negative Urine Leukocytes AB Trace Negative CULTURE SET UP Urine WBC's 3-5 Urine RBC's 0-2 Squamous Epi's Trace Serology Group :53:00 Result Normal Range Units Strep Screen Negative Negative :30:00 Result Normal Range Units Occult Blood #3 Negative Negative [id number]:31:00 Result Normal Range Units Occult Blood #1 Negative Negative Result Amended on 2016-06-26 at 16:12:45. Previous status was UT. Occult Blood #2 Negative Negative Result Amended on 2016-06-26 at 16:12:45. Previous status was FR. Chemistry Group [id number]:15:00 Result Normal Range Units Glucose H 106 70-99 mg/dl BUN 14 7-26 mg/dl Creatinine 1.2 0.6-1.3 mg/dl Sodium 144 136-145 mmol/L Potassium 3.9 3.5-5.1 mmol/L Chloride HC 115 98-107 mmol/L Test reran and result successfully called to [facility] on 07/01/2016 at 06:08 by NATALEE.Talked to Farzaneh. CO2 L 19 22-29 mmol/L BUN/Creatinine Ratio 12 7-25 Ratio Calcium 8.9 8.4-10.2 mg/dl Protein Total 6.5 6.4-8.3 g/dl Albumin L 3.3 3.5-5.0 g/dl A/G Ratio L 1.0 1.2-2.2 Ratio AST 34 5-34 U/L ALT 33 0-55 U/L ALP 113 40-150 U/L Bilirubin Total 0.3 0.2-1.2 mg/dl Osmolality 279 261-280 mOsm/kg Globulin 3.2 2.4-3.5 g/dl [id number]:35:00 Result Normal Range Units Glucose H 101 70-99 mg/dl BUN 11 7-26 mg/dl Creatinine 1.2 0.6-1.3 mg/dl Sodium 145 136-145 mmol/L Potassium 3.8 3.5-5.1 mmol/L Chloride H 112 98-107 mmol/L CO2 27 22-29 mmol/L BUN/Creatinine Ratio 9 7-25 Ratio Calcium 9.3 8.4-10.2 mg/dl Protein Total 6.5 6.4-8.3 g/dl Albumin L 3.4 3.5-5.0 g/dl A/G Ratio L 1.1 1.2-2.2 Ratio AST H 56 5-34 U/L ALT H 59 0-55 U/L ALP 103 40-150 U/L Bilirubin Total 0.3 0.2-1.2 mg/dl Osmolality 279 261-280 mOsm/kg Globulin 3.1 2.4-3.5 g/dl CK 101 30-170 U/L CKMB 2.1 <=6 ng/ml BNP 60.2 <=100 pg/ml Troponin 0.02 <=0.20 ng/ml :30:00 Result Normal Range Units Glucose H 104 70-99 mg/dl BUN 11 7-26 mg/dl Creatinine 1.2 0.6-1.3 mg/dl Sodium 144 136-145 mmol/L Potassium 3.6 3.5-5.1 mmol/L Chloride H 113 98-107 mmol/L CO2 25 22-29 mmol/L BUN/Creatinine Ratio 9 7-25 Ratio Calcium 9.0 8.4-10.2 mg/dl Osmolality 278 261-280 mOsm/kg Anion GAP 6 5-16 mmol/L BNP 67.4 <=100 pg/ml :50:00 Result Normal Range Units Glucose 91 70-99 mg/dl BUN 15 7-26 mg/dl Creatinine 1.3 0.6-1.3 mg/dl Sodium 144 136-145 mmol/L Potassium 3.7 3.5-5.1 mmol/L Chloride H 110 98-107 mmol/L CO2 26 22-29 mmol/L BUN/Creatinine Ratio 12 7-25 Ratio Calcium 8.7 8.4-10.2 mg/dl Protein Total 6.5 6.4-8.3 g/dl Albumin 3.7 3.5-5.0 g/dl A/G Ratio 1.3 1.2-2.2 Ratio AST 34 5-34 U/L ALT 22 0-55 U/L ALP 90 40-150 U/L Bilirubin Total 0.5 0.2-1.2 mg/dl Osmolality 278 261-280 mOsm/kg Globulin 2.8 2.4-3.5 g/dl Free T4 0.90 0.70-1.48 ng/dl TSH 0.77 0.35-4.94 uIU/mL Reference Lab Group :53:00 Result Normal Range Units Adenovirus Not Detected Not Detected Result Amended on 2016-06-27 at 11:43:33. Previous status was FR. Adeno2 Not Detected Not Detected Result Amended on 2016-06-27 at 11:43:33. Previous status was FR. Coronavirus 229E Not Detected Not Detected Result Amended on 2016-06-27 at 11:43:33. Previous status was FR. Coronavirus HKU1 Not Detected Not Detected Result Amended on 2016-06-27 at 11:43:33. Previous status was FR. Coronavirus NL63 Not Detected Not Detected Result Amended on 2016-06-27 at 11:43:33. Previous status was FR. Coronavirus OC43 Not Detected Not Detected Result Amended on 2016-06-27 at 11:43:33. Previous status was FR. Human Metapneumovir. Not Detected Not Detected Result Amended on 2016-06-27 at 11:43:33. Previous status was FR. Entero1 Not Detected Not Detected Result Amended on 2016-06-27 at 11:43:33. Previous status was FR. Entero2 Not Detected Not Detected Result Amended on 2016-06-27 at 11:43:33. Previous status was FR. Human Rhinovirus 1 Not Detected Not Detected Result Amended on 2016-06-27 at 11:43:33. Previous status was FR. Human Rhinovirus 2 Not Detected Not Detected Result Amended on 2016-06-27 at 11:43:33. Previous status was FR. Human Rhinovirus 3 Not Detected Not Detected Result Amended on 2016-06-27 at 11:43:33. Previous status was FR. Human Rhinovirus 4 Not Detected Not Detected Result Amended on 2016-06-27 at 11:43:33. Previous status was FR. PukL-[id number] Not Detected Not Detected Result Amended on 2016-06-27 at 11:43:33. Previous status was FR. FluA-H1-ford Not Detected Not Detected Result Amended on 2016-06-27 at 11:43:33. Previous status was FR. FluA-H3 Not Detected Not Detected Result Amended on 2016-06-27 at 11:43:33. Previous status was FR. FluA-pan1 Not Detected Not Detected Result Amended on 2016-06-27 at 11:43:33. Previous status was FR. FluA-pan2 Not Detected Not Detected Result Amended on 2016-06-27 at 11:43:33. Previous status was FR. Influenza B Not Detected Not Detected Result Amended on 2016-06-27 at 11:43:33. Previous status was FR. Parainfluenza Virus 1 Not Detected Not Detected Result Amended on 2016-06-27 at 11:43:33. Previous status was FR. Parainfluenza Virus 2 Not Detected Not Detected Result Amended on 2016-06-27 at 11:43:33. Previous status was FR. Parainfluenza Virus 3 Not Detected Not Detected Result Amended on 2016-06-27 at 11:43:33. Previous status was FR. Parainfluenza Virus 4 Not Detected Not Detected Result Amended on 2016-06-27 at 11:43:33. Previous status was FR. Respiratory Syncytial Vir Not Detected Not Detected Result Amended on 2016-06-27 at 11:43:33. Previous status was FR. Bordetella pertussis Not Detected Not Detected Result Amended on 2016-06-27 at 11:43:33. Previous status was FR. Chlamydophila pnemon Not Detected Not Detected Result Amended on 2016-06-27 at 11:43:33. Previous status was FR. Mycoplasma pneumoni Not Detected Not Detected Result Amended on 2016-06-27 at 11:43:33. Previous status was FR. [id number]:30:00 Result Normal Range Units Source Unformed Result Amended on 2016-06-27 at 07:23:13. Previous status was FR. The [employer] Gastrointestinal Panel is intended as an aid in the diagnosis of specific agents of gastrointestinal illness and results are meant to be used in conjunction with other clinical, laboratory, and epidemiological data.Testing should only be performed on individuals with signs and/or symptoms of gastrointestinal illness (i.e. diarrhea).This test is not intended to monitor or guide treatment for C.difficle infection in adults or detection in children less than 2 years of age. Campylobacter Not Detected Not Detected Result Amended on 2016-06-27 at 07:23:13. Previous status was FR. C difficile toxin A/B Not Detected Not Detected Result Amended on 2016-06-27 at 07:23:13. Previous status was FR. Plesiomonas shigelloid Not Detected Not Detected Result Amended on 2016-06-27 at 07:23:13. Previous status was FR. Salmonella Not Detected Not Detected Result Amended on 2016-06-27 at 07:23:13. Previous status was FR. Vibrio Not Detected Not Detected Result Amended on 2016-06-27 at 07:23:13. Previous status was FR. Vibrio cholerae Not Detected Not Detected Result Amended on 2016-06-27 at 07:23:13. Previous status was FR. Yersinia enterocolitica Not Detected Not Detected Result Amended on 2016-06-27 at 07:23:13. Previous status was FR. Enteroaggregative Ecoli Not Detected Not Detected Result Amended on 2016-06-27 at 07:23:14. Previous status was FR. Enteropathogenic Ecoli Not Detected Not Detected Result Amended on 2016-06-27 at 07:23:14. Previous status was FR. Enterotoxigenic Ecoli Not Detected Not Detected Result Amended on 2016-06-27 at 07:23:14. Previous status was FR. Shig-like toxin Ecoli Not Detected Not Detected Result Amended on 2016-06-27 at 07:23:14. Previous status was FR. Shig/Enteroinvasiv Ecoli Not Detected Not Detected Result Amended on 2016-06-27 at 07:23:14. Previous status was FR. Cryptosporidium Not Detected Not Detected Result Amended on 2016-06-27 at 07:23:14. Previous status was FR. Cyclospora cayetanens. Not Detected Not Detected Result Amended on 2016-06-27 at 07:23:14. Previous status was FR. Entamoeba histolytica Not Detected Not Detected Result Amended on 2016-06-27 at 07:23:14. Previous status was FR. Giardia Lamblia Not Detected Not Detected Result Amended on 2016-06-27 at 07:23:14. Previous status was FR. Adenovirus F 40/41 Not Detected Not Detected Result Amended on 2016-06-27 at 07:23:14. Previous status was FR. Asterovirus Not Detected Not Detected Result Amended on 2016-06-27 at 07:23:14. Previous status was FR. Norovirus GI/GII Not Detected Not Detected Result Amended on 2016-06-27 at 07:23:14. Previous status was FR. Rotavirus Not Detected Not Detected Result Amended on 2016-06-27 at 07:23:14. Previous status was FR. Sapovirus Not Detected Not Detected Result Amended on 2016-06-27 at 07:23:14. Previous status was FR. :25:00 EKG See Manual Report :00:00 EKG See Manual Report Urinalysis :35:00 Result Normal Range Units Site Voided Urine Color Yellow Yellow Urine Appearance Clear Clear Urine Glucose Negative Negative Urine Bilirubin Negative Negative Urine Ketones Negative Negative Urine Specific Wolverine 1.010 1.010-1.020 Urine PH 7.0 5.5-7.5 Urine Protein Negative Negative Urine Urobilinogen 0.2 0.2-1.0 Urine Nitrites Negative Negative Urine Blood AB Trace Negative Urine Leukocytes AB Trace Negative CULTURE SET UP Urine WBC's 3-5 Urine RBC's 0-2 Squamous Epi's Trace Gram Positive Bacteria :53:00 Result Normal Range Units Entero1 Not Detected Not Detected Result Amended on 2016-06-27 at 11:43:33. Previous status was FR. History of procedures No procedures recorded for this patient visit. Functional status Functional Status Finding Observation Time Dexterity Right-handed :20 Weight Bearing Statu Full [id number]:20 Transferring/Ambulat Independent [id number]:20 Bathing Independent :20 Dressing Independent :20 Eating Independent :20 Drinking Independent 45-63-400011:20 Toileting Independent :20 Able to Turn Self in Independent :20 Stairs Independent [id number]:20 Cognitive Status Finding Observation Time Level of Consciousne Alert :12 Oriented to Person Yes :[address] Yes :12 Oriented to Time Yes :12 Eyes - FRANCES Yes :12 Vital signs Type Value Date Respirations 18 :44 Pulse 54 :44 O2 Saturation 98% :12 Systolic Blood Press 117mm/HG :44 Diastolic Blood Pres 72mm/HG :44 Temperature (Fahr) 96.7Degrees :44 Height 64in :46 Weight 207.8LB 78-90-936498:06 Social history Type Value Smoking Status NEVER SMOKER Treatment Plan Treatment Plan at F/U with physician within 7 days of discharge Hospital discharge instructions Diagnosis bipolar 1 disorder most recent episodes mixed, severe with psychotic feature. 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 Farr office stated that they had an order to let assisted living make the appointments d/t her condition Other Instructions F/U with Dr Alfred July 242016, 0820 Dr. Alfred [phone]
--- OUTSIDE RECORDS SUMMARY | 2016-10-25 05:17 | XMS REPORT ---
Author Author FELECIA STACK [facility] Address Unknown Care Team Providers Care Assurance Auditor Name Role Phone FELECIA STACK Unavailable PROBLEMS Type Condition ICD9-CM Code [id number] Code Onset Dates Condition Status SNOMED Code Problem Unspecified symptom associated with female genital organs 625.9 Active 190547176 Problem Cervicalgia 723.1 Active 31218721 Problem Other specified cardiac dysrhythmias 427.89 Active 853395817 Assessment Dental examination Z01.20 Feb, Active 436712512 Problem Other and unspecified hyperlipidemia 272.4 Active 26200625 Problem Encounter for dental examination Z01.20 Active 612381869 Problem Muscle weakness (generalized) 728.87 Active 90993100 Problem Other malaise and fatigue 780.79 Active 051545908 Problem Pain in soft tissues of limb 729.5 Active 24136845 Problem Unspecified arthropathy, site 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.90 Active 417286233 Problem Loss of weight 783.21 Active 249670056 ALLERGIES Substance Reaction Event Type Date Status Latex Exam Gloves Unknown Drug Allergy Feb, Active Penicillamine Unknown Drug Allergy Feb, Active SOCIAL HISTORY No smoking Hx information available PLAN OF CARE VITAL SIGNS Blood pressure systolic 129 mmHg 2016-02-25 Blood pressure diastolic 72 mmHg 2016-02-25 MEDICATIONS No Known Medications RESULTS No Results PROCEDURES Procedure Date Ordered Related Diagnosis Body Site LTD ORAL EVALUATION - PROBLEM FOCUS Feb 25, 2016 INTRAORL-PERIAPICAL 1 FILM [id number] Feb 25, 2016 INTRAORL-PERIAPICAL EA ADD FILM Feb 25, 2016 IMMUNIZATIONS No Known Immunizations
--- OUTSIDE RECORDS SUMMARY | 2016-10-25 05:18 | XMS REPORT ---
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.90 Active Problem Unspecified symptom associated with female genital organs 625.9 Active Problem Other and unspecified hyperlipidemia 272.4 Active Assessment Seborrhea 706.3 Active Assessment Psychotic disorder 298.9 Active Problem Unspecified arthropathy, site 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.90 Active Problem Loss of weight 783.21 Active Problem Muscle weakness (generalized) 728.87 Active Problem Cervicalgia 723.1 Active Problem Other specified cardiac dysrhythmias 427.89 Active Problem Other malaise and fatigue 780.79 Active Problem Pain in soft tissues of limb 729.5 Active Medications Medication Code System Code Instructions Start Date End Date Status Dosage Ambien [facility] [address]-74 5 MG Orally Once a day Feb 25, 2015 1 tablet at bedtime as needed Exelon [facility] [address]-26 4.6 MG/24HR Transdermal Once a day 1 patch to skin Folic Acid [facility] [address]-82 1 MG Orally Once a day 1 tablet Furosemide [facility] [address]-53 20 MG Orally Once a day 1 tablet Cetirizine HCl [facility] [address]-02 10 MG Orally Once a day 1 tablet Trazodone HCl [facility] [address]-05 50 MG Orally Once a day 1 tablet at bedtime as needed Calcium-Vitamin D [facility] [address]-68 600-200 MG-UNIT Orally not defined Aricept [facility] [address]-77 10 MG Orally Once a day 1 tablet at bedtime Lipitor [facility] [address]-62 80 MG Orally Once a day 1 tablet Namenda [facility] [address]-80 5 MG Orally Twice a day 1 tablet Aspir-81 [facility] [address]-10 81 MG Orally Once a day 1 tablet Cyanocobalamin [facility] [address]-54 1000 MCG/ML Injection IM every two weeks 1 ml Keppra [facility] [address]-28 750 MG Orally every 12 hrs 2 tablets Potassium Chloride Sofya ER [facility] [address]-58 10 MEQ Orally once a day 1 tablet with food Procedures Procedure Coding System Code Date Office Visit, Est Pt., Level 4 CPT-4 32255 Feb 25, 2015 Vital Signs Date/Time: Feb 25, 2015 Temperature 98.1 F Weight 213.5 lbs Height 64 in BMI 36.64 Index Blood Pressure Diastolic 68 mmHg Blood Pressure Systolic 108 mmHg Cardiac Monitoring Heart Rate 64 bpm Results No Known Results Summary Purpose eClinicalWorks Submission
--- OUTSIDE RECORDS SUMMARY | 2016-10-25 05:18 | XMS REPORT ---
Author Author [facility] Medical Staff Organization [facility] Address [address] [place], [place] [address] Phone [phone] Summary purpose CCDA Sent to [facility] Chief Complaint and Reason for Visit No authorized Reason for Visit (Admitting Diagnosis) is available for this visit. Problem list No authorized problems tracked for continuity of care are available for this visit. Encounters No authorized problems tracked for encounter diagnoses are available for this visit. Medications No medications recorded for this patient visit Allergies, adverse reactions, alerts Allergen Category Ingredient Status Reaction Severity Onset Penicillins Drug Penicillins Active latex Drug latex Active Immunizations No immunizations recorded for this patient visit Relevant diagnostic tests and/or laboratory data No authorized results are available for this patient visit History of procedures No procedures recorded for this patient visit. Functional status No functional or cognitive status observations are available for this visit. Vital signs Type Value Date Respirations 18 94-16-283621:26 Pulse 52 34-67-423723:26 O2 Saturation 97% 99-04-715633:26 Systolic Blood Press 118mm/HG 09-63-283283:26 Diastolic Blood Pres 73mm/HG 92-42-150934:26 Temperature (Fahr) 97.1Degrees 50-14-825643:26 Social history No Social History or smoking status observations were recorded for this visit. ( Unknown if ever smoked.) Treatment Plan No treatment plan text is available for this visit. Hospital discharge instructions No discharge instruction text is available for this visit.
--- OUTSIDE RECORDS SUMMARY | 2016-10-25 05:18 | XMS REPORT | Continuity of Care Document ---
Author Author [facility] Address Unknown Phone Unavailable Allergies Active Description Code Type Severity Reaction Onset Reported/Identified Relationship to Patient Clinical Status Yes latex OA N/A N/A 11/08/2008 Yes Penicillins Drug Allergy N/A N/A 11/08/2008 Yes latex OA 01/2009 Yes Penicillins Drug Allergy 11/08/2008 Yes latex [id number] Drug Allergy Mild N/A 07/22/2013 Yes Penicillins [id number] Drug Allergy Mild N/A 07/22/2013 Yes latex 8921 Drug Allergy N/A N/A 06/18/2016 Confirmed or Verified Yes Penicillins 476 Drug Allergy N/A N/A 06/18/2016 Confirmed or Verified Medications Procedures Code Description Performed By Performed On 37.22 10/06/2010 88.53 10/06/2010 88.56 10/06/2010 80398 ROUTINE VENIPUNCTURE 05/03/2012 86190 CBC 05/03/2012 84559 LIPID PANEL 05/03 92474 CMP 05/03/2012 4621299 GFR CALC (RESULT ONLY) 05/03/2012 51411 TOPIRAMATE (TOPAMAX) 05/05/2012 23365 LEVETIRACETAM (KEPPRA) LEVEL 05/06/2012 Cardiolog Sage Tuttle 11/15/2012 63556 MAMMOGRAM, SCREENING 03/30/2013 54633 CBC 03/30/2013 Obstetric Fenech, Eliseo 05/02/2013 Encounters ACCT No. Visit Date/Time Discharge Status Pt. Type Provider Facility Loc./Unit Complaint [id number] 09/20/2014 16:35:00 09/20/2014 23: 59:59 CLS Outpatient VANESSA PERES MD [id number] 05/18/2014 14:27:00 05/18/2014 23: 59:59 CLS Outpatient VANESSA PERES MD [id number] 02/02/2014 11:18:00 02/02/2014 23: 59:59 CLS Outpatient VANESSA PERES MD [id number] 08/21/2013 07:12:00 08/21/2013 23: 59:59 CLS Outpatient SREE STANLEY DOOlga Robles [id number] 05/22/2013 09:45:00 05/22/2013 23: 59:59 CLS Outpatient JADEN CRAFT AUGUSTUS Robles [id number] 05/16/2013 10:13:00 05/16/2013 23: 59:59 CLS Outpatient JADEN CRAFT AUGUSTUS Robles [id number] 05/02/2013 09:47:00 05/02/2013 23: 59:59 CLS Outpatient VANESSA PERES MD [id number] 03/30/2013 13:07:00 03/30/2013 23: 59:59 CLS Outpatient VANESSA PERSE MD [id number] 08/26/2012 10:02:00 08/26/2012 23: 59:59 CLS Outpatient VANESSA PERES MD [id number] 08/16/2012 13:36:00 08/16/2012 23: 59:59 CLS Outpatient [id number] 07/07/2012 14:39:00 07/07/2012 23: 59:59 [place] [id number] 05/03/2012 10:07:00 05/03/2012 23: 59:59 CLS Outpatient [id number] 11/10/2012 13:55:00 Document Registration
--- OUTSIDE RECORDS SUMMARY | 2016-10-25 05:18 | XMS REPORT ---
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.90 Active Problem Loss of weight 783.21 Active Problem Muscle weakness (generalized) 728.87 Active Problem Cervicalgia 723.1 Active Problem Other specified cardiac dysrhythmias 427.89 Active Problem Other malaise and fatigue 780.79 Active Problem Pain in soft tissues of limb 729.5 Active Medications No Known Medications Procedures Procedure Coding System Code Date INTRAORL-PERIAPICAL 1 FILM 25439 CPT-4 D0220 Mar 07, 2015 INTRAORL-PERIAPICAL EA ADD FILM CPT-4 D0230 Mar 07, 2015 LTD ORAL EVALUATION - PROBLEM FOCUS CPT-4 D0140 Mar 07, 2015 APPLICATION DESENZT MEDICAMENT CPT-4 D9910 Mar 07, 2015 APPLICATION DESENZT MEDICAMENT CPT-4 D9910 Mar 07, 2015 Results No Known Results Summary Purpose eClinicalWorks Submission
--- OUTSIDE RECORDS SUMMARY | 2016-10-25 05:18 | XMS REPORT ---
Author Author VANESSA PERES Organization [employer] Address Unknown Phone Unavailable Care Team Providers Care Lamp Wirer Name Role Phone VANESSA PERES CP Unavailable Allergies No Known Allergies Problems Problem Type Condition ICD-9 Code Onset Dates Condition Status Problem Unspecified symptom associated with female genital [...] limb 729.5 Active Medications No Known Medications Results No Known Results Summary Purpose eClinicalWorks Submission
--- OUTSIDE RECORDS SUMMARY | 2016-10-25 05:18 | XMS REPORT ---
Author Author [facility] Medical Staff Organization [facility] Address [address] [place], [place] [address] Phone [phone] Summary purpose CCDA Sent to [facility] Chief Complaint and Reason for Visit No [...] are available for this visit. Vital signs No authorized vital signs are available for this visit. Social history No Social History or smoking status observations were recorded for this visit. ( Unknown if ever smoked.) Treatment Plan No treatment plan text is available for this visit. Hospital discharge instructions No discharge instruction text is available for this visit.
--- OUTSIDE RECORDS SUMMARY | 2016-10-25 05:34 | XMS REPORT | Continuity of Care Document ---
Author Author [facility] Organization [facility] Address Unknown Phone Unavailable Care Team Providers Care Milking Machine Mechanic Name Role Phone No Pcp, Na PCP Unavailable Source Comments Some departments are not documenting in the electronic medical record. If you do not see the information that you expected, contact Release of Information in the Health Information Management department at [phone] for further assistance in locating additional records.[facility] Active Allergies and Adverse Reactions [...] Taken Blood Pressure 135/52 05/19/2016 8:00 AM SLEEPING BAG FILLER Pulse 56 05/18/2016 4:43 PM SLEEPING BAG FILLER Temperature 36.4 C (97.6 F) 05/19/2016 8:00 AM SLEEPING BAG FILLER Respiratory Rate - - Height 1.626 m (5' 4") 05/18/2016 4:43 PM SLEEPING BAG FILLER Weight 95.255 kg (210 lb) 05/18/2016 4:43 PM SLEEPING BAG FILLER Body Mass Index 36.03 05/18/2016 4:43 PM SLEEPING BAG FILLER Oxygen Saturation 97% 05/19/2016 8:00 AM SLEEPING BAG FILLER Plan of Care Health Maintenance Due Date Last Done Comments Hepatitis C Screening 1950 Physical (Comprehensive) 1958 Exam Pertussis Vaccine 1962 Tetanus Vaccine 1968 Colorectal Cancer 2001 Screening Breast Cancer Screening 07/22/2008 07/22/2007, 07/22/2007 Shingles Vaccine 2011 Osteoporosis Screening 2016 Prevnar/Pneumovax (#1) 2016 Influenza Vaccine 03/05/2017 Results from Last 3 Months Not on file
--- OUTSIDE RECORDS SUMMARY | 2016-10-25 05:35 | XMS REPORT | Continuity of Care Document ---
Author Author [facility] Address Unknown Phone Unavailable Allergies Active Description Code Type Severity Reaction Onset Reported/Identified Relationship to Patient Clinical Status Yes latex OA N/A N/A 11/08/2008 Yes Penicillins Drug Allergy N/A N/A 11/08/2008 Yes latex OA 01/2009 Yes Penicillins Drug Allergy 11/08/2008 Yes latex [id number] Drug Allergy Mild N/A 07/22/2013 Yes Penicillins [id number] Drug Allergy Mild N/A 07/22/2013 Yes latex 8921 Drug Allergy N/A N/A 06/18/2016 Confirmed or Verified Yes Penicillins 476 Drug Allergy N/A N/A 06/18/2016 Confirmed or Verified Medications Procedures Code Description Performed By Performed On 37.22 10/06/2010 88.53 10/06/2010 88.56 10/06/2010 98843 ROUTINE VENIPUNCTURE 05/03/2012 41296 CBC 05/03/2012 89092 LIPID PANEL 05/03 87049 CMP 05/03/2012 4344806 GFR CALC (RESULT ONLY) 05/03/2012 24871 TOPIRAMATE (TOPAMAX) 05/05/2012 79087 LEVETIRACETAM (KEPPRA) LEVEL 05/06/2012 Cardiolog Sage Tuttle 11/15/2012 67070 MAMMOGRAM, SCREENING 03/30/2013 72997 CBC 03/30/2013 Obstetric Fenech, Eliseo 05/02/2013 Encounters ACCT No. Visit Date/Time Discharge Status Pt. Type Provider Facility Loc./Unit Complaint [id number] 09/20/2014 16:35:00 09/20/2014 23: 59:59 CLS Outpatient VANESSA PERES MD [id number] 05/18/2014 14:27:00 05/18/2014 23: 59:59 CLS Outpatient VANESSA PERES MD [id number] 02/02/2014 11:18:00 02/02/2014 23: 59:59 CLS Outpatient VANESSA PERES MD [id number] 08/21/2013 07:12:00 08/21/2013 23: 59:59 CLS Outpatient SREE STANLEY DOOlga Robles [id number] 05/22/2013 09:45:00 05/22/2013 23: 59:59 CLS Outpatient JADEN CRAFT AUGUSTUS Robles [id number] 05/16/2013 10:13:00 05/16/2013 23: 59:59 CLS Outpatient JADEN CRAFT AUGUSTUS Robles [id number] 05/02/2013 09:47:00 05/02/2013 23: 59:59 CLS Outpatient VANESSA PERES MD [id number] 03/30/2013 13:07:00 03/30/2013 23: 59:59 CLS Outpatient VANESSA PERES MD [id number] 08/26/2012 10:02:00 08/26/2012 23: 59:59 CLS Outpatient VANESSA PERES MD [id number] 08/16/2012 13:36:00 08/16/2012 23: 59:59 CLS Outpatient [id number] 07/07/2012 14:39:00 07/07/2012 23: 59:59 [place] [id number] 05/03/2012 10:07:00 05/03/2012 23: 59:59 CLS Outpatient [id number] 11/10/2012 13:55:00 Document Registration
== END 2016-10-02 11:20 ==
LOC: DELPENDDIS → EDUNIT# 20:30 → ER 20:32 → UNDOADMOB 22:55 → 4TH 22:55
PROVIDERS: ADMIT Internal Medicine; ATTEND Internal Medicine
DX: R10.11 Right upper quadrant pain (principal); E87.6 Hypokalemia; E86.0 Dehydration; R42 Dizziness and giddiness; I25.10 Atherosclerotic heart disease of native coronary artery without angina pectoris; I10 Essential (primary) hypertension; G40.909 Epilepsy, unspecified, not intractable, without status epilepticus; K21.9 Gastro-esophageal reflux disease without esophagitis
CPT/HCPCS: 36415; 70450; 71010; 74176; 80053; 81000; 82150; 83690; 83735; 84484; 85007; 85025; 85027; 85610; 85730; 93041; 96361; 96374; 96375; G0378

== ENCOUNTER → 2016-10-05 | Outpatient (CLI) | payer MEDICARE, BC, MEDICAID ==
[~2016-10-05] MED LIST changes: +CHLO25TA22 PO; +FLUC200T5 PO; +FURO40TA4 PO; +HYDR-3812 PO; +KETO120S11 TOP; +LAMO200T PO; +MECL-106 PO; +OXYB15TA PO; +POTA-51 PO; +PRED5DRO17 OU; +RISP1TAB3 PO; +TR1C15 TOP
--- NOTE | 2016-10-05 11:38 | Diagnostic Imaging Report ---
Ultrasound of the left breast. INDICATION: Abnormal mammogram. The screening mammogram performed on 08/24/2016, suggested architectural distortion in the lateral aspect of the left breast. The diagnostic mammogram of this area performed earlier today failed to show any sign of malignancy. On this study there is no discrete solid or cystic mass identified. I suspect that the finding of the screening mammogram was secondary to superimposition of the fibroglandular tissue and not to an underlying abnormality. Even so, it may prove worthwhile to have a short-term (six-month) followup mammogram of the left breast for continued evaluation. IMPRESSION: 1. There is no evidence for malignancy. Recommendations as above. 2. These results were discussed with Dr. Addy Farr. ACR BI-RADS Category 3: Probably benign findings. Result letter will be mailed to the patient. Note: At least 10% of breast cancer is not imaged by mammography. Dictated by: Dictated on workstation # [id number]
--- NOTE | 2016-10-06 19:27 | Diagnostic Imaging Report ---
Unilateral diagnostic left mammogram. INDICATION: Abnormal screening mammogram. The current study was also evaluated with a Computer Aided Detection (CAD) system. FINDINGS: The screening mammogram performed on 08/24/16 raised the question of architectural distortion in the lateral aspect of the left breast. Compression views of this area show no definite abnormality. There is no sign of malignancy on the rolled views or on the true lateral view either. I suspect that the apparent architectural distortion in the lateral aspect of the left breast seen on the screening mammogram was secondary to superimposition of the heterogeneously dense fibroglandular tissue. Even so, I would recommend that ultrasound be performed for further study. IMPRESSION: There is no evidence of malignancy. Ultrasound would be recommended for further evaluation, however. ACR BI-RADS Category 0: Incomplete. (Needs additional imaging evaluation). Result letter will be mailed to the patient. Note: At least 10% of breast cancer is not imaged by mammography. Dictated by: Dictated on workstation # [id number]
== END ==
LOC: RAD 08:06
DX: R92.8 Other abnormal and inconclusive findings on diagnostic imaging of breast (principal)
CPT/HCPCS: 76642

== ENCOUNTER → 2016-12-03 | Outpatient (CLI) | payer MEDICARE, BC, MEDICAID | LOC: PREOP 05:56 | PROVIDERS: ATTEND Surgery | DX: Z01.818 Encounter for other preprocedural examination (principal); Z12.11 Encounter for screening for malignant neoplasm of colon ==

== ENCOUNTER → 2016-12-07 | Day surgery (SDC) | payer MEDICARE, BC, MEDICAID ==
[~2016-12-07] VITALS: Ht 162.6 cm; Wt 96.0 kg
[~2016-12-07] MED LIST changes: +FLUMAZENIL (ROMAZICON) 0.1 MG/ML 5 ML VIAL INJ PRN; +MIDAZOLAM 2 MG/2 ML (VERSED) VIAL ONE; +NALOXONE 0.4 MG/ML 1 ML (NARCAN) VIAL IVP PRN; +NS IV 500 ML 500 ML IV PRN; +NS IV 500 ML 500 ML ONE; +fentaNYL INJECTION 100 MCG/2 ML AMP ONE
[2016-12-07 07:46] VITALS: BP 134/78
--- NOTE | 2016-12-07 08:50 | Conscious Sedation/ASA ---
Conscious Sedation Pre-Proced Time Reviewed: 08:50 ASA Class: 2 Airway Mallampati Classification: ([place] appropriate class) I. II. III, IV Lungs Heart ASA score ASA 1: a normal healthy patient ASA 2: a patient with a mild systemic disease (mid diabetes, controlled hypertension, obesity ASA 3: a patient with a severe systemic disease that limits activity (angina , COPD, prior Myocardial infarction) ASA 4: a patient with an incapacitating disease that is a constant threat to life (CHF, renal failure) ASA 5: a moribund patient not expected to survive 24 hrs. (ruptured aneurysm) ASA 6: a declared brain patient whose organs are being harvested. For emergent operations, add the letter E after the classification Grade 1 Sedation Plan: Discussed options with patient/fam Note The patient is an appropriate candidate to undergo the planned procedure, sedation, and anesthesia. The patient immediately re-assessed prior to indication. INDIA BARROW MD Dec 07, 2016 8:50 am
[2016-12-07] MEDS: fentaNYL INJECTION 100 MCG/2 ML AMP IVP PRN ×2 (09:35→09:45)
[2016-12-07] MEDS: MIDAZOLAM 2 MG/2 ML (VERSED) VIAL IVP PRN ×2 (09:37→09:41)
--- NOTE | 2016-12-07 09:59 | Endoscopy Procedure Report ---
Endoscopy Report Date: Dec 07, 2016 Preoperative Diagnosis: screening Study Performed: Colonoscopy Procedure Instrument: Colonoscope Endo Procedure/Findings Findings 1.: Polyp, Diverticulosis Recommendations: Recommendations: 1.: Colonscopy in 5 years Copy Copies To 1: JOVON LING MD, XAVIER M MD Dec 07, 2016 9:59 am
--- NOTE | 2016-12-07 10:01 | Discharge Inst-Simple/Standard ---
Discharge Inst-Standard Discharge Medications New, Converted or Re-Newed RX: Other Patient Instructions/Follow Up Plan of Care/Instructions/FU: repeat colonoscopy in 5 years Activity as Tolerated: Yes Discharge Diet: No Restrictions INDIA BARROW MD Dec 07, 2016 10:01 am
[2016-12-07 10:10] VITALS: BP 123/63
--- NOTE | 2016-12-07 10:10 | OPERATIVE REPORT ---
DATE OF SERVICE: 12/07/2016 PROCEDURES: 1. Screening colonoscopy. 2. Polypectomy (hot biopsy). SURGEON: India Barrow MD. INDICATION FOR PROCEDURE: This lady came in for screening colonoscopy. Informed consent was obtained after reviewing the procedure in detail. DESCRIPTION OF PROCEDURE: She was placed in left lateral decubitus position and her vital signs were monitored. Conscious sedation was achieved using Versed and fentanyl. Digital rectal examination was unremarkable. The colonoscope was then introduced into the rectum and advanced all the way up to the cecum. The scope was then withdrawn slowly and the mucosa examined in a systematic fashion. FINDINGS: 1. Sigmoid diverticulosis. 2. A 1 mm polyp at the cecum, that was excised with hot biopsy forceps. She tolerated the procedure well and was taken back to the nursing area in a stable condition. IMPRESSION: Screening colonoscopy. Very small cecal polyp excised. Recommend repeating in 5 years. Job ID: [id number] DocumentID: [id number] Dictated Date: 12/07/2016 09:59:15 Pulverizer Date: 12/07/2016 10:10:13 Dictated By: INDIA BARROW MD MTDD
[2016-12-07 10:40] VITALS: BP 131/71
[2016-12-07 11:15] VITALS: BP 131/71
== END | disposition home or self-care (01) ==
LOC: ENDO 07:22
PROVIDERS: ATTEND Surgery
DX: Z12.11 Encounter for screening for malignant neoplasm of colon (principal); K63.5 Polyp of colon; K57.30 Diverticulosis of large intestine without perforation or abscess without bleeding; I10 Essential (primary) hypertension; E78.5 Hyperlipidemia, unspecified; I25.10 Atherosclerotic heart disease of native coronary artery without angina pectoris; Z79.899 Other long term (current) drug therapy

== ENCOUNTER → 2017-02-01 | Outpatient (CLI) | payer MEDICARE, BC, MEDICAID ==
[~2017-02-01] MED LIST changes: -FLUMAZENIL (ROMAZICON) 0.1 MG/ML 5 ML VIAL INJ PRN; -MIDAZOLAM 2 MG/2 ML (VERSED) VIAL ONE; -NALOXONE 0.4 MG/ML 1 ML (NARCAN) VIAL IVP PRN; -NS IV 500 ML 500 ML IV PRN; -NS IV 500 ML 500 ML ONE; -fentaNYL INJECTION 100 MCG/2 ML AMP ONE
--- NOTE | 2017-02-01 09:10 | Diagnostic Imaging Report ---
Bilateral diagnostic mammogram with tomography. INDICATION: Right breast pain and lump. Left breast asymmetry. COMPARISON: 08/24/2016, and other prior studies. CAD is utilized. FINDINGS: Asymmetry along the outer aspect of the left breast demonstrates no definite change from the previous exam. It spreads out on the MLO view in favor of summation artifact of parenchyma. The right breast demonstrates no focal lesion or suspicious calcification. IMPRESSION: The lateral left breast asymmetry is likely summation artifact of parenchyma. No abnormality in the right breast. Ultrasound evaluation pending. ACR BI-RADS Category 0: Incomplete. (Needs additional imaging evaluation). Result letter will be mailed to the patient. Note: At least 10% of breast cancer is not imaged by mammography. Dictated by: Dictated on workstation # [id number]
--- NOTE | 2017-02-01 09:17 | Diagnostic Imaging Report ---
EXAMINATION: Bilateral breast ultrasound. INDICATION: Asymmetry along the outer aspect of the left breast and right breast lump. FINDINGS: The area of lump in the right breast at the 5 o'clock zone is evaluated with no apparent underlying abnormality seen. Also, the four-quadrants and retroareolar region of each breast were scanned with no abnormality seen. IMPRESSION: Negative study. Clinical followup of the palpable area and a 6 month followup left breast mammogram to ensure stability of the lateral left breast asymmetry would be recommended. ACR BI-RADS Category 3: Probably benign findings. Dictated by: Dictated on workstation # [id number]
== END ==
LOC: RAD 08:01
PROVIDERS: ATTEND Nurse Practitioner Family
DX: R92.8 Other abnormal and inconclusive findings on diagnostic imaging of breast (principal)
CPT/HCPCS: 77066

== ENCOUNTER → 2017-04-22 | Outpatient (CLI) | payer MEDICARE, BC, MEDICAID ==
--- NOTE | 2017-04-22 10:01 | Diagnostic Imaging Report ---
Two views of the left and three views of the right knees. INDICATION: Chronic bilateral knee pain. FINDINGS: The left knee demonstrate tricompartment osteophytes more prominent in the medial and lateral compartments with chondrocalcinosis seen in the lateral compartments. There is a minimal suprapatellar effusion suggested. No fracture or dislocation. Right knee: There is chondrocalcinosis suggested in the lateral compartment. No significant joint space narrowing. Very minimal medial osteophytes seen. IMPRESSION: 1. Chondrocalcinosis seen bilaterally in the lateral compartment. 2. Degenerative changes, mild in the left knee and minimal in the right knee. Dictated by: Dictated on workstation # [id number]
--- NOTE | 2017-04-22 13:27 | Diagnostic Imaging Report ---
EXAMINATION: DEXA scan. INDICATION: Osteopenia. TECHNIQUE: Bone mineral density estimated based on dual energy radiography over the lumbar spine and femoral necks, was performed. FINDINGS: The lumbar spine T-score is -0.3. This is a 3.6% decreased density measurement compared to the prior exam. The T score over the femoral neck on the left side is -0.4 and on the right side is -0.8. This is 2.2% increased density measurements compared to 10/15/2009. IMPRESSION: The bone mineral density measurements are at the lower limits of normal. Dictated by: Dictated on workstation # [id number]
== END ==
LOC: RAD 08:13
PROVIDERS: ATTEND Nurse Practitioner Family
DX: M11.261 Other chondrocalcinosis, right knee (principal); M11.262 Other chondrocalcinosis, left knee
CPT/HCPCS: 77080

== ENCOUNTER 2017-06-02 06:02 | Emergency (ER) | payer MEDICARE, BC, MEDICAID ==
[~2017-06-02] VITALS: Ht 162.6 cm; Wt 99.8 kg
--- OUTSIDE RECORDS SUMMARY | 2017-06-02 06:07 | XMS REPORT | Clinical Summary ---
Author Author [facility] Organization [facility] Address Unknown Phone Unavailable Care Team Providers Care Radiology Clerk Name Role Phone PCP Unavailable Source Comments Some departments are not documenting in the electronic medical record. If you do not see the information that you expected, contact Release of Information in the Health Information Management department at [phone] for further assistance in locating additional records.[facility] Allergies Active Allergy Reactions Severity Noted Date Comments Latex 05/07/2005 Allergy recorded in SMS: [...] 05/19/20 Active (AMITRIPTYLINE/GABAPENTIN tid 16 /EMU OIL(#)) 4//10 % donepezil (ARICEPT) 10 mg Take 10 [...] Smoker Alcohol Use Drinks/Week oz/Week Comments No Sex Assigned at Date Recorded Not on file Last Filed Vital Signs Vital Sign Reading Time Taken Blood Pressure 135/52 05/19/2016 8:00 AM AUTOMATION TECHNICIAN Pulse 56 05/18/2016 4:43 PM AUTOMATION TECHNICIAN Temperature 36.4 C (97.6 F) 05/19/2016 8:00 AM AUTOMATION TECHNICIAN Respiratory Rate - - Oxygen Saturation 97% 05/19/2016 8:00 AM AUTOMATION TECHNICIAN Inhaled Oxygen - - Concentration Weight 95.3 kg (210 lb) 05/18/2016 4:43 PM AUTOMATION TECHNICIAN Height 162.6 cm (5' 4") 05/18/2016 4:43 PM AUTOMATION TECHNICIAN Body Mass Index 36.05 05/18/2016 4:43 PM AUTOMATION TECHNICIAN Plan of Treatment Health Maintenance Due Date Last Done Comments HEPATITIS C SCREENING 1950 PHYSICAL (COMPREHENSIVE) 1958 EXAM PERTUSSIS VACCINE 1962 TETANUS VACCINE 1968 COLORECTAL CANCER 2001 SCREENING BREAST CANCER SCREENING 07/22/2008 07/22/2007, 07/22/2007 SHINGLES VACCINE 2011 OSTEOPOROSIS SCREENING 2016 PREVNAR/PNEUMOVAX (#1) 2016 INFLUENZA VACCINE 02/02/2017 Results Not on filefrom Last 3 Months
--- NOTE | 2017-06-02 06:20 | ED Fall/Injury ---
General Chief Complaint: Trauma-Non Activation Stated Complaint: FALL Source: patient, EMS, long term records Exam Limitations: no limitations History of Present Illness Time seen by provider: 06:03 Initial Comments Patient presents to ER by EMS from [facility] where EMS reports that staff told them they heard her hollering from the shower so they went to check on her and she had fallen. Patient says she was getting in the shower but does not member the fall or getting out of the shower. She does not think she hit her head or lost consciousness but has no memory of the event. EMS reports the patient was not closed at that time and insisted she would be closed and have her hair dried prior to leaving with him to be evaluated at the ER. Patient walked under her own power. Patient reports she is having some pain in her left ankle and her mid thoracic spine. She says her neck still hurts from her fall 2 days ago. She says she's had a hard time urinating and has not had a good bowel movement in several days. She's had several small hard bowel movements. She's had no changes in her medications. No shortness of breath, cough, chest pain, belly pain, dysuria, discharge, rash. Allergies and Home Medications Allergies Coded Allergies: Penicillins (Verified Allergy, Mild, 07/22/13) latex (Verified Allergy, Mild, 07/22/13) Home Medications Aspirin 81 Mg Tablet.dr, 81 MG PO DAILY, (Reported) Atorvastatin Calcium 80 Mg Tablet, 80 MG PO DAILY, (Reported) Calcium Carbonate/Vitamin D3 1 Each Tablet, 1 TAB PO BID, (Reported) Clonazepam 0.5 Mg Tablet, 0.5 MG PO HS, (Reported) Donepezil HCl 10 Mg Tablet, 10 MG PO HS, (Reported) Fluconazole 200 Mg Tablet, 200 MG PO Q48H, (Reported) TAKE ON ODD DAYS RELATED TO BACTERIAL INFECTION Folic Acid 1 Mg Tablet, 1 MG PO DAILY, (Reported) Furosemide 40 Mg Tablet, 40 MG PO DAILY, (Reported) Hydrocodone/Acetaminophen 1 Each Tablet, 1 TAB PO Q4H PRN for MODERATE PAIN, #15 Prescribed by: DADA SANDOVAL on 10/02/16 1120 Ketoconazole 120 Ml Shampoo, TOP DAILY, (Reported) DAILY X 2 WEEKS THEN TWICE WEEKLY Lamotrigine 200 Mg Tablet, 200 MG PO BID, (Reported) Levetiracetam 750 Mg Tablet, 1,500 MG PO BID, (Reported) TAKES 2 (750MG) TABLETS Meclizine HCl 25 Mg Tablet, 25 MG PO Q6H PRN for DIZZINESS, (Reported) Melatonin/Pyridoxine 1 Each Tablet, 3 MG PO HS, (Reported) Meloxicam 15 Mg Tablet, 15 MG PO DAILY, (Reported) Memantine HCl 5 Mg Tablet, 5 MG PO DAILY, (Reported) Oxybutynin Chloride 15 Mg Tab.er.24, 15 MG PO HS, (Reported) Potassium Chloride 20 Meq Tablet.er, 20 MEQ PO DAILY, #30 Prescribed by: DADA SANDOVAL on 10/02/16 1120 Prednisolone Acetate 5 Ml Drops.susp, 1 DROP OU Q48H, (Reported) Risperidone 1 Mg Tablet, 1 MG PO DAILY, (Reported) Rivastigmine 9.5 Mg Patch, 9.5 MG TD DAILY, (Reported) Topiramate 200 Mg Tablet, 200 MG PO BID, (Reported) Trazodone HCl 50 Mg Tablet, 50 MG PO HS, (Reported) Triamcinolone Acet 15 Gm Cr, TOP BID, (Reported) Zolpidem Tartrate 5 Mg Tablet, 5 MG PO HS, (Reported) Constitutional: No chills, No diaphoresis, No fever, No malaise Eyes: Denies Blindness, Denies Blurred Vision Ears, Nose, Mouth, Throat: denies ear pain, denies ear discharge, denies nose pain, denies mouth swelling, denies loose teeth Respiratory: No cough, No short of breath Cardiovascular: No chest pain, No palpitations Gastrointestinal: No abdominal pain, constipation, No nausea, No vomiting Genitourinary: see HPI, No discharge, No dysuria Musculoskeletal: back pain, joint pain (left ankle) Skin: No pruritus, No rash Psychiatric/Neurological: Denies Headache, Denies Numbness, Denies Paresthesia , Denies Pre-Existing Deficit Past Qzzveyw-Dvqnwd-Rwyssk Hx Patient Social History Alcohol Use: Denies Use Recreational Drug Use: No Smoking Status: Current Everyday Smoker Type Used: Cigarettes Former Smoker, Quit: Jul 05, 2013 Recent Foreign Travel: No Contact w/Someone Who Travel: No Recent Hopitalizations: No (PSYCH EVALUATIOIN 06/19) Immunizations Up To Date Tetanus Booster (TDap): Unknown Date of Influenza Vaccine: Apr 04, 2016 Seasonal Allergies Seasonal Allergies: No Surgeries History of Surgeries: Yes (ABOVE) Surgeries: Gallbladder, Lumpectomy Respiratory History of Respiratory Disorde: Yes (BRONCHITIS) Respiratory Disorders: Chronic Bronchitis Currently Using CPAP: No Cardiovascular History of Cardiac Disorders: Yes Cardiac Disorders: Coronary Artery Disease, High Cholesterol, Hypertension, Rheumatic Fever Neurological History of Neurological Disord: Yes (ENCEPHALITIS) Neurological Disorders: Concussion, Dementia, Seizure Disorder, Traumatic Brain Injury, Vertigo Reproductive System Hx Reproductive Disorders: No Sexually Transmitted Disease: No HIV/AIDS: No Female Reproductive Disorders: Denies Gastrointestinal History of Gastrointestinal Di: Yes ("STOMACH DISCOMFORT"--POST- CHOLECYSTECTOMY SYNDROME) Gastrointestinal Disorders: Gastroesophageal Reflux, Chronic Constipation Musculoskeletal History of Musculoskeletal Dis: Yes Musculoskeletal Disorders: Arthritis Endocrine History of Endocrine Disorders: No HEENT Loss of Vision: Bilateral Hearing Impairment: Denies Cancer History of Cancer: No Psychosocial History of Psychiatric Problem: Yes Behavioral Health Disorders: Sleep Difficulties, Bipolar Integumentary History of Skin or Integumenta: Yes Skin/Integumentary Disorders: Psoriasis Blood Transfusions History of Blood Disorders: No Family Medical History Family Medial History: Cancer 03 FATHER (PANCREATIC CANCER) 09 BROTHER ( AT AGE 10) Family history: Cardiovascular disease 03 MOTHER Family history: Diabetes mellitus 03 MOTHER Heart disease 03 MOTHER Physical Exam Vital Signs Vital Sign - Last 12Hours 06/02/17 06:03 Temp 98.7 Pulse 79 Resp 16 B/P (MAP) 110/73 Pulse Ox 95 O2 Delivery Room Air Capillary Refill : General Appearance: WD/WN, no apparent distress HEENT: PERRL/EOMI, normal ENT inspection, TMs normal, pharynx normal Neck: non-tender, full range of motion, supple, normal inspection Cardiovascular: normal peripheral pulses, regular rate, rhythm Respiratory: chest non-tender, lungs clear, normal breath sounds Peripheral Pulses: 1+ Dorsalis Pedis (R), 1+ Left Dors-Pedis (L), 2+ Radial Pulses (R), 2+ Radial Pulses (L) Gastrointestinal: normal bowel sounds, non tender, soft Back: normal inspection, no vertebral tenderness Extremities: normal range of motion, normal inspection, normal capillary refill , other (bilateral hips are tender to palpation over greater trochanter and left ankle has full range of motion, sensation and tendon are intact. Tender to palpation directly over the dorsum of foot.) Neurologic/Psychiatric: alert, oriented x 3 Skin: normal color, warm/dry Progress/Results/Core Measures Results/Orders Lab Results Laboratory Tests Test 06/02/17 07:38 06/02/17 07:50 Range/Units White Blood Count 6.6 4.3-11.0 10^3/uL Red Blood Count 3.97 L 4.35-5.85 10^6/uL Hemoglobin 13.2 11.5-16.0 G/DL Hematocrit 39 35-52 % Mean Corpuscular Volume 99 80-99 FL Mean Corpuscular Hemoglobin 33 25-34 PG Mean Corpuscular Hemoglobin Concent 34 32-36 G/DL Red Cell Distribution Width 12.9 10.0-14.5 % Platelet Count 161 130-400 10^3/uL Mean Platelet Volume 9.9 7.4-10.4 FL Neutrophils (%) (Auto) 56 42-75 % Lymphocytes (%) (Auto) 23 12-44 % Monocytes (%) (Auto) 16 H 0-12 % Eosinophils (%) (Auto) 4 0-10 % Basophils (%) (Auto) 1 0-10 % Neutrophils # (Auto) 3.7 1.8-7.8 X 10^3 Lymphocytes # (Auto) 1.5 1.0-4.0 X 10^3 Monocytes # (Auto) 1.1 H 0.0-1.0 X 10^3 Eosinophils # (Auto) 0.3 0.0-0.3 10^3/uL Basophils # (Auto) 0.1 0.0-0.1 10^3/uL Sodium Level 139 135-145 MMOL/L Potassium Level 4.1 3.6-5.0 MMOL/L Chloride Level 111 H 98-107 MMOL/L Carbon Dioxide Level 20 L 21-32 MMOL/L Anion Gap 8 5-14 MMOL/L Blood Urea Nitrogen 16 7-18 MG/DL Creatinine 1.19 0.60-1.30 MG/DL Estimat Glomerular Filtration Rate 45 BUN/Creatinine Ratio 13 Glucose Level 94 70-105 MG/DL Calcium Level 8.7 8.5-10.1 MG/DL Total Bilirubin 0.3 0.1-1.0 MG/DL Aspartate Amino Transf (AST/SGOT) 41 H 5-34 U/L Alanine Aminotransferase (ALT/SGPT) 29 0-55 U/L Alkaline Phosphatase 112 40-136 U/L Total Protein 6.8 6.4-8.2 GM/DL Albumin 3.5 3.2-4.5 GM/DL Urine Color YELLOW Urine Clarity CLEAR Urine pH 8 5-9 Urine Specific Edgard 1.010 L 1.016-1.022 Urine Protein NEGATIVE NEGATIVE Urine Glucose (UA) NEGATIVE NEGATIVE Urine Ketones NEGATIVE NEGATIVE Urine Nitrite NEGATIVE NEGATIVE Urine Bilirubin NEGATIVE NEGATIVE Urine Urobilinogen NORMAL NORMAL MG/DL Urine Leukocyte Esterase 1+ H NEGATIVE Urine RBC (Auto) NEGATIVE NEGATIVE Urine RBC NONE /HPF Urine WBC 2-5 /HPF Urine Squamous Epithelial Cells 0-2 /HPF Urine Crystals PRESENT H /LPF Urine Amorphous Sediment FEW JOSE PHOSPHATE H /LPF Urine Bacteria FEW H /HPF Urine Casts NONE /LPF Urine Mucus NEGATIVE /LPF Urine Culture Indicated YES My Orders Orders - MACY GLYNN Chest 1 View, Ap/Pa Only (06/02/17 06:12) Ankle, Left, 3 Views (06/02/17 06:12) Pelvis (06/02/17 06:12) Cbc With Automated Diff (06/02/17 06:12) Comprehensive Metabolic Panel (06/02/17 06:12) Ua Culture If Indicated (06/02/17 06:12) Ct Head/Cervical Spine Wo (06/02/17 06:20) Urine Culture (06/02/17 07:50) Vital Signs/I&O Vital Sign - Last 12Hours 06/02/17 06:03 Temp 98.7 Pulse 79 Resp 16 B/P (MAP) 110/73 Pulse Ox 95 O2 Delivery Room Air Diagnostic Imaging Diagonstic Imaging: CT Plain Films/CT/US/NM/MRI: c-spine, head Comments VIA [facility]. [place], [place] NAME: [facility] REC#: [id number] PT STATUS: REG ER : 1950 PHYSICIAN: MACY GLYNN MD ADMIT DATE: 06/02/17/ER Draft Date of Exam:06/02/17 CT HEAD/CERVICAL SPINE WO PROCEDURE: CT head and CT cervical spine without contrast. TECHNIQUE: Multiple contiguous axial images were obtained through the brain and cervical spine without the use of intravenous contrast. Sagittal and coronal reformations through the cervical spine were then performed. INDICATION: Fall. COMPARISON: Head CT dated 09/30 2016 FINDINGS: Head CT: No acute intracranial hemorrhage, mass effect or edema is seen. The perkins-white junction is preserved. The ventricles appear normal. No focal abnormality is demonstrated. The paranasal sinuses and mastoids are clear as visualized. There is no evidence of basilar skull fracture. Cervical spine CT: No acute fracture or osseous destructive process is seen. There is straightening of the normal cervical lordosis which may positional or muscular. There is minimal anterior subluxation of C4 on C5 and C7/T1, likely degenerative. There is some degenerative facet disease at these levels. Alignment is otherwise unremarkable. Vertebral body heights are maintained. There is moderate to severe disc space narrowing and mild to moderate spurring at the C3/C4 level and at the C5/C6 level. There is bilateral foraminal narrowing at these levels. There is heterogeneous thyroid gland with multiple low-density nodules seen. IMPRESSION: 1. No evidence of an acute intracranial abnormality. 2. No evidence of an acute cervical spine abnormality. There are degenerative changes as described above. 3. Low density nodules in the thyroid gland are nonspecific. If not previously performed, thyroid ultrasound may be additional benefit. Dictated on workstation # [id number] Dict: 06/02/17721 Trans: 06/02/17729 [facility] [phone] Interpreted by: LIS PIRES DO Electronically signed by: Reviewed: Reviewed by Wa Diagonstic Imaging: Xray Plain Films/CT/US/NM/MRI: chest (1v) Comments VIA [place], [place] NAME: [facility] REC#: [id number] PT STATUS: REG ER : 1950 PHYSICIAN: MACY GLYNN MD ADMIT DATE: 06/02/17/ER Draft Date of Exam:06/02/17 CHEST 1 VIEW, AP/PA ONLY INDICATION: Fall. Pain. COMPARISON: 09/30/2016. FINDINGS: Single frontal view of the chest is obtained. Heart size is upper limits of normal. No central venous congestion. No pneumothorax, mediastinal widening or pleural fluid demonstrated. Lungs are clear. IMPRESSION: Borderline cardiomegaly without evidence of failure. No acute abnormality seen in the chest. Dictated on workstation # [id number] Dict: 06/02/17720 Trans: 06/02/17723 [facility] [place] [phone] Interpreted by: LIS PIRES DO Electronically signed by: Reviewed: Reviewed by Wa Diagonstic Imaging: Xray Plain Films/CT/US/NM/MRI: pelvis Comments [place]IA [place] NAME: [facility] REC#: [id number] PT STATUS: REG ER : 1950 PHYSICIAN: MACY GLYNN MD ADMIT DATE: 06/02/17/ER Draft Date of Exam:06/02/17 PELVIS INDICATION: Fall. Pain. COMPARISON: None FINDINGS: Single frontal view of the pelvis is obtained. No acute fracture, malalignment or osseous destructive process is seen. Joint spaces are preserved. Femoral heads appear smooth, round and symmetric. Sacroiliac joints appear unremarkable. IMPRESSION: Negative pelvis. Dictated on workstation # [id number] Dict: 06/02/17719 Trans: 06/02/17722 [id number] Interpreted by: LIS PIRES DO Electronically signed by: Reviewed: Reviewed by Wa Diagonstic Imaging: Xray Plain Films/CT/US/NM/MRI: ankle (l) Comments [place] NAME: [facility] REC#: [id number] PT STATUS: REG ER : 1950 PHYSICIAN: MACY GLYNN MD ADMIT DATE: 06/02/17/ER Draft Date of Exam:06/02/17 ANKLE, LEFT, 3 VIEWS INDICATION: Fall. Pain. Comparison: None Findings: 3 views of the left ankle are obtained. No acute fracture, malalignment or osseous destructive process is seen. There is moderate soft tissue swelling. Ankle joint spaces preserved. There is minimal spurring of the os calcis. IMPRESSION: Moderate soft tissue swelling without evidence of an acute osseous abnormality. Dictated on workstation # [id number] Dict: 06/02/1721 Trans: 06/02/17 0723 [facility] [phone] Interpreted by: LIS PIRES DO Electronically signed by: Reviewed: Reviewed by Me Departure Impression Impression: Primary Impression: Fall Qualified Codes: W19.XXXA - Unspecified fall, initial encounter Additional Impressions: Ankle sprain Qualified Codes: S93.402A - Sprain of unspecified ligament of left ankle, initial encounter Thyroid nodule Disposition: HOME, SELF-CARE Condition: Stable Departure-Patient Inst. Decision time for Depature: 08:21 Referrals: JOVON LING MD (PCP/Family) Primary Care Physician Patient Instructions: Preventing Falls in the Older Adult Add. Discharge Instructions: Apply ice to your left ankle and wear the Jeremy bandage compression wrap for swelling. Lift the ankle above the level of your heart when possible. Use Tylenol 1000 mg or ibuprofen 800 mg every 8 hours as needed for pain. Follow up with your primary care physician for the thyroid nodule within the next 2-4 weeks. You may need to do an ultrasound to further characterize if this has not been worked up in the past. All discharge instructions reviewed with patient and/or family. Voiced understanding. Copy Copies To 1: JOVON LING MD, TITUS J Jun 02, 2017 06:20
--- NOTE | 2017-06-02 07:23 | Diagnostic Imaging Report ---
INDICATION: Fall. Pain. COMPARISON: None FINDINGS: Single frontal view of the pelvis is obtained. No acute fracture, malalignment or osseous destructive process is seen. Joint spaces are preserved. Femoral heads appear smooth, round and symmetric. Sacroiliac joints appear unremarkable. IMPRESSION: Negative pelvis. Dictated by: Dictated on workstation # [id number]
--- NOTE | 2017-06-02 07:23 | Diagnostic Imaging Report ---
INDICATION: Fall. Pain. Comparison: None Findings: 3 views of the left ankle are obtained. No acute fracture, malalignment or osseous destructive process is seen. There is moderate soft tissue swelling. Ankle joint spaces preserved. There is minimal spurring of the os calcis. IMPRESSION: Moderate soft tissue swelling without evidence of an acute osseous abnormality. Dictated by: Dictated on workstation # [id number]
--- NOTE | 2017-06-02 07:24 | Diagnostic Imaging Report ---
INDICATION: Fall. Pain. COMPARISON: 09/30/2016. FINDINGS: Single frontal view of the chest is obtained. Heart size is upper limits of normal. No central venous congestion. No pneumothorax, mediastinal widening or pleural fluid demonstrated. Lungs are clear. IMPRESSION: Borderline cardiomegaly without evidence of failure. No acute abnormality seen in the chest. Dictated by: Dictated on workstation # [id number]
--- NOTE | 2017-06-02 07:30 | Diagnostic Imaging Report ---
PROCEDURE: CT head and CT cervical spine without contrast. TECHNIQUE: Multiple contiguous axial images were obtained through the brain and cervical spine without the use of intravenous contrast. Sagittal and coronal reformations through the cervical spine were then performed. INDICATION: Fall. COMPARISON: Head CT dated 09/30 2016 FINDINGS: Head CT: No acute intracranial hemorrhage, mass effect or edema is seen. The perkins-white junction is preserved. The ventricles appear normal. No focal abnormality is demonstrated. The paranasal sinuses and mastoids are clear as visualized. There is no evidence of basilar skull fracture. Cervical spine CT: No acute fracture or osseous destructive process is seen. There is straightening of the normal cervical lordosis which may positional or muscular. There is minimal anterior subluxation of C4 on C5 and C7/T1, likely degenerative. There is some degenerative facet disease at these levels. Alignment is otherwise unremarkable. Vertebral body heights are maintained. There is moderate to severe disc space narrowing and mild to moderate spurring at the C3/C4 level and at the C5/C6 level. There is bilateral foraminal narrowing at these levels. There is heterogeneous thyroid gland with multiple low-density nodules seen. IMPRESSION: 1. No evidence of an acute intracranial abnormality. 2. No evidence of an acute cervical spine abnormality. There are degenerative changes as described above. 3. Low density nodules in the thyroid gland are nonspecific. If not previously performed, thyroid ultrasound may be additional benefit. Dictated by: Dictated on workstation # [id number]
[2017-06-02 07:47] LABS: BASOPHILS # (AUTO) 0.1 10^3/uL (0.0-0.1); BASOPHILS % (AUTO) 1 % (0-10); EOSINOPHILS # (AUTO) 0.3 10^3/uL (0.0-0.3); EOSINOPHILS % (AUTO) 4 % (0-10); LYMPHOCYTES # (AUTO) 1.5 X 10^3 (1.0-4.0); LYMPHOCYTES % (AUTO) 23 % (12-44); MEAN CORPUSCULAR HEMOGLOBIN 33 PG (25-34); MEAN CORPUSCULAR HGB CONC 34 G/DL (32-36); MEAN CORPUSCULAR VOLUME 99 FL (80-99); MEAN PLATELET VOLUME 9.9 FL (7.4-10.4); MONOCYTES # (AUTO) 1.1 X 10^3 (0.0-1.0); MONOCYTES % (AUTO) 16 % (0-12); NEUTROPHILS # (AUTO) 3.7 X 10^3 (1.8-7.8); NEUTROPHILS % (AUTO) 56 % (42-75); PLATELET COUNT 161 10^3/uL (130-400); RED BLOOD COUNT 3.97 10^6/uL (4.35-5.85); RED CELL DISTRIBUTION WIDTH 12.9 % (10.0-14.5); WHITE BLOOD COUNT 6.6 10^3/uL (4.3-11.0)
[2017-06-02 08:03] LABS: BILIRUBIN,URINE NEGATIVE (NEGATIVE); KETONES,URINE NEGATIVE (NEGATIVE); LEUKOCYTE ESTERASE ,URINE 1+ (NEGATIVE); NITRITE,URINE NEGATIVE (NEGATIVE); PH,URINE 8 (5-9); PROTEIN,URINE NEGATIVE (NEGATIVE); UROBILINOGEN,URINE NORMAL (NORMAL)
[2017-06-02 08:10] LABS: ALBUMIN 3.5 GM/DL (3.2-4.5); BILIRUBIN,TOTAL 0.3 MG/DL (0.1-1.0); CALCIUM 8.7 MG/DL (8.5-10.1); CREATININE SERUM 1.19 MG/DL (0.60-1.30); POTASSIUM 4.1 MMOL/L (3.6-5.0); TOTAL PROTEIN 6.8 GM/DL (6.4-8.2)
[2017-06-02 08:14] LABS: SQUAMOUS EPITHELIAL CELL,UR 0-2 /HPF
--- NOTE | 2017-06-02 09:19 | Diagnostic Imaging Report ---
Indication: Second toe pain Comparison: None Findings: 3 views left toes are obtained. There is mild generalized osteopenia. There is a minimally displaced fracture through the distal aspect of the proximal phalanx of the left second toe. There is minimal ventral displacement of the distal fragment. No additional fracture or malalignment or osseous destructive process seen. Impression: Minimally displaced fracture through the proximal phalanx of the left second toe. Report was called to Dr. [facility] by annie at 9:20 am. Dictated by: Dictated on workstation # [id number]
[2017-06-02 09:36] VITALS: BP 110/73
== END 2017-06-02 09:36 | disposition home or self-care (01) ==
LOC: EDUNIT# 06:02 → ER 06:03
DX: S92.512A Displaced fracture of proximal phalanx of left lesser toe(s), initial encounter for closed fracture (principal); I25.10 Atherosclerotic heart disease of native coronary artery without angina pectoris; I10 Essential (primary) hypertension; F03.90 Unspecified dementia, unspecified severity, without behavioral disturbance, psychotic disturbance, mood disturbance, and anxiety; G40.909 Epilepsy, unspecified, not intractable, without status epilepticus; K21.9 Gastro-esophageal reflux disease without esophagitis; F31.9 Bipolar disorder, unspecified; F17.210 Nicotine dependence, cigarettes, uncomplicated; Z87.828 Personal history of other (healed) physical injury and trauma; Z79.82 Long term (current) use of aspirin; Z90.49 Acquired absence of other specified parts of digestive tract; W18.2XXA Fall in (into) shower or empty bathtub, initial encounter; Y93.E1 Activity, personal bathing and showering; Y92.002 Bathroom of unspecified non-institutional (private) residence as the place of occurrence of the external cause
CPT/HCPCS: 36415; 70450; 71010; 72125; 72170; 73610; 73660; 80053; 81000; 85025; 87088; 99283

== ENCOUNTER → 2017-07-06 | Outpatient (CLI) | payer MEDICARE, BC, MEDICAID ==
[~2017-07-06] MED LIST changes: +ACHD5005 PO; -HYDR-3812 PO; -LAMO150T PO; +LAMO150T2 PO; -LAMO200T PO; +LAMO200T2 PO
--- NOTE | 2017-07-06 13:42 | Diagnostic Imaging Report ---
PROCEDURE: US Thyroid. TECHNIQUE: Multiple Real-time grayscale images were obtained of the thyroid in various projections. INDICATION: Thyroid nodules. FINDINGS: The right lobe measures approximately 2.5 x 4.5 cm. The left lobe measures approximately 2 x 4 cm. There are multiple bilateral nodules present. The largest on the left measures approximately 1.5 x 2.5 cm. The largest on the right measures approximately 1.7 x 2 cm. No abnormal vascularity is demonstrated. IMPRESSION: There are multiple bilateral nodules, most likely secondary to a multinodular goiter. These could be followed for stability. Dictated by: Dictated on workstation # [id number]
== END ==
LOC: RAD 12:35
PROVIDERS: ATTEND Otolaryngology Otolaryngology/Facial Plastic Surgery
DX: E04.2 Nontoxic multinodular goiter (principal)
CPT/HCPCS: 76536

== ENCOUNTER → 2017-08-04 | Outpatient (CLI) | payer MEDICARE, BC, MEDICAID ==
--- NOTE | 2017-08-04 13:54 | Diagnostic Imaging Report ---
INDICATION: Followup left breast asymmetric density. The patient complains of pain in the outer portions of both breasts. The patient denies a discrete palpable abnormality. COMPARISON: 02/01/2017, 08/24/2016, and 06/07/2015. TECHNIQUE: Digital diagnostic mammography was performed bilaterally with a Computer Aided Detection (CAD) system. FINDINGS: Both breasts show scattered parenchymal densities. The overall parenchymal pattern is stable. No dominant mass or malignant appearing microcalcifications are seen. An asymmetric density in the outer left breast is stable. The axillae are unremarkable. IMPRESSION: No mammographic features suspicious for malignancy are identified. ACR BI-RADS Category 2: Benign findings. Result letter will be mailed to the patient. Note: At least 10% of breast cancer is not imaged by mammography. Dictated by: Dictated on workstation # [id number]
== END ==
LOC: RAD 13:13
PROVIDERS: ATTEND Nurse Practitioner Family
DX: R92.8 Other abnormal and inconclusive findings on diagnostic imaging of breast (principal)
CPT/HCPCS: 77066

== ENCOUNTER 2017-08-24 12:27 | Emergency (ER) | payer MEDICARE, BC, MEDICAID ==
[~2017-08-24] VITALS: Ht 160 cm; Wt 99.8 kg
[2017-08-24] MEDS ORDERED: ASPIRIN 81 MG CHEW (CHILDREN'S ASA) PO ONE (12:45)
--- NOTE | 2017-08-24 12:51 | ED Chest Pain ---
General Stated Complaint: CP,DIZZINESS,SWEATY Source: patient Exam Limitations: no limitations History of Present Illness Date Seen by Provider: Aug 24, 2017 Time Seen by Provider: 12:35 Initial Comments Here with report of a variety of vague complaints that include chest pain, abdominal pain, neck pain, headache and pain in her arms and legs. Does report increased swelling in the legs. She has appointment with her primary care physician today at 3 or 330. She is in assisted living. She apparently been having these complaints for some time and patient called her movie operator today who instructed her to go to the ER. She has the appointment with her primary care today for the same complaints. Timing/Duration: 4-5 days Severity/Quality: moderate, aching Location: central Radiation: neck Prior CP/Workup: cardiac cath, echocardiography, stress test ASA po CERTIFIED ALCOHOL COUNSELOR: Yes NTG SL CERTIFIED ALCOHOL COUNSELOR: No Associated Symptoms: abdominal pain, back pain, fatigue, No fever/chills, headache, No nausea/vomiting, No shortness of breath, weakness Allergies and Home Medications Allergies Coded Allergies: Penicillins (Verified Allergy, Mild, 07/22/13) latex (Verified Allergy, Mild, 07/22/13) Home Medications Aspirin 81 Mg Tablet.dr, 81 MG PO DAILY, (Reported) Atorvastatin Calcium 80 Mg Tablet, 80 MG PO DAILY, (Reported) Calcium Carbonate/Vitamin D3 1 Each Tablet, 1 TAB PO BID, (Reported) Clonazepam 0.5 Mg Tablet, 0.5 MG PO HS, (Reported) Donepezil HCl 10 Mg Tablet, 10 MG PO HS, (Reported) Fluconazole 200 Mg Tablet, 200 MG PO Q48H, (Reported) TAKE ON ODD DAYS RELATED TO BACTERIAL INFECTION Folic Acid 1 Mg Tablet, 1 MG PO DAILY, (Reported) Furosemide 40 Mg Tablet, 40 MG PO DAILY, (Reported) Hydrocodone Bit/Acetaminophen 1 Each Tablet, 1 TAB PO Q4H PRN for MODERATE PAIN , #15 Prescribed by: DADA SANDOVAL on 10/02/16 1120 Ketoconazole 120 Ml Shampoo, TOP DAILY, (Reported) DAILY X 2 WEEKS THEN TWICE WEEKLY Lamotrigine 200 Mg Tablet, 200 MG PO BID, (Reported) Levetiracetam 750 Mg Tablet, 1,500 MG PO BID, (Reported) TAKES 2 (750MG) TABLETS Meclizine HCl 25 Mg Tablet, 25 MG PO Q6H PRN for DIZZINESS, (Reported) Melatonin/Pyridoxine 1 Each Tablet, 3 MG PO HS, (Reported) Meloxicam 15 Mg Tablet, 15 MG PO DAILY, (Reported) Memantine HCl 5 Mg Tablet, 5 MG PO DAILY, (Reported) Oxybutynin Chloride 15 Mg Tab.er.24, 15 MG PO HS, (Reported) Potassium Chloride 20 Meq Tablet.er, 20 MEQ PO DAILY, #30 Prescribed by: DADA SANDOVAL on 10/02/16 1120 Prednisolone Acetate 5 Ml Drops.susp, 1 DROP OU Q48H, (Reported) Risperidone 1 Mg Tablet, 1 MG PO DAILY, (Reported) Rivastigmine 9.5 Mg Patch, 9.5 MG TD DAILY, (Reported) Topiramate 200 Mg Tablet, 200 MG PO BID, (Reported) Trazodone HCl 50 Mg Tablet, 50 MG PO HS, (Reported) Triamcinolone Acet 15 Gm Cr, TOP BID, (Reported) Zolpidem Tartrate 5 Mg Tablet, 5 MG PO HS, (Reported) Review of Systems Constitutional: see HPI, No chills, No fever, weakness EENTM: No Symptoms Reported Respiratory: Denies Cough, Denies Shortness of Air Cardiovascular: Chest Pain, Edema Gastrointestinal: Constipated, Nausea, Denies Vomiting Genitourinary: Other (reportedly on Keflex for urinary tract infection and has been for 7 days.) Musculoskeletal: no symptoms reported Skin: no symptoms reported Psychiatric/Neurological: Emotional Problems, Pre-Existing Deficit (moderate dementia) Endocrine: No Symptoms Reported All Other Systems Reviewed Negative Unless Noted: Yes Past Akjhcof-Jhtbae-Obnwzg Hx Patient Social History Alcohol Use: Denies Use Recreational Drug Use: No Smoking Status: Former Smoker Type Used: Cigarettes Former Smoker, Quit: Jul 05, 2013 Recent Hopitalizations: No (PSYCH EVALUATIOIN 06/19) Immunizations Up To Date Tetanus Booster (TDap): Unknown Date of Influenza Vaccine: Apr 04, 2016 Seasonal Allergies Seasonal Allergies: No Surgeries History of Surgeries: Yes (ABOVE) Surgeries: Gallbladder, Lumpectomy Respiratory History of Respiratory Disorde: Yes (BRONCHITIS) Respiratory Disorders: Chronic Bronchitis Currently Using CPAP: No Cardiovascular History of Cardiac Disorders: Yes Cardiac Disorders: Coronary Artery Disease, High Cholesterol, Hypertension, Rheumatic Fever Neurological History of Neurological Disord: Yes (ENCEPHALITIS) Neurological Disorders: Concussion, Dementia, Seizure Disorder, Traumatic Brain Injury, Vertigo Reproductive System Hx Reproductive Disorders: No Sexually Transmitted Disease: No HIV/AIDS: No Female Reproductive Disorders: Denies Gastrointestinal History of Gastrointestinal Di: Yes ("STOMACH DISCOMFORT"--POST- CHOLECYSTECTOMY SYNDROME) Gastrointestinal Disorders: Gastroesophageal Reflux, Chronic Constipation Musculoskeletal History of Musculoskeletal Dis: Yes Musculoskeletal Disorders: Arthritis Endocrine History of Endocrine Disorders: No HEENT Loss of Vision: Bilateral Hearing Impairment: Denies Cancer History of Cancer: No Psychosocial History of Psychiatric Problem: Yes Behavioral Health Disorders: Sleep Difficulties, Bipolar Integumentary History of Skin or Integumenta: Yes Skin/Integumentary Disorders: Psoriasis Blood Transfusions History of Blood Disorders: No Reviewed Nursing Assessment Reviewed/Agree w Nursing PMH: Yes Family Medical History Significant Family History: No Pertinent Family Hx Family Medial History: Cancer 03 FATHER (PANCREATIC CANCER) 09 BROTHER ( AT AGE 10) Family history: Cardiovascular disease 03 MOTHER Family history: Diabetes mellitus 03 MOTHER Heart disease 03 MOTHER Physical Exam Vital Signs Vital Signs - First Documented 08/24/17 12:30 Temp 98.0 Pulse 50 Resp 11 B/P (MAP) 102/74 (83) Pulse Ox 98 Capillary Refill : General Appearance: No Apparent Distress, WD/WN HEENT: PERRL/EOMI, Pharynx Normal Neck: Non Tender, Supple Respiratory: Lungs Clear, Normal Breath Sounds Cardiovascular: Regular Rate, Rhythm, No Murmur Gastrointestinal: Non Tender, Soft Extremity: Normal Inspection, Normal Range of Motion, Non Tender, Pedal Edema ( 2+ edema to both legs up to the level of the knees.) Neurologic/Psychiatric: Alert, Oriented x3 Skin: Normal Color, Warm/Dry Focused Exam Evaluation Lactate Level Laboratory Tests 08/24/17 12:45: Lactic Acid Level 1.34 Lactic Acid Level Laboratory Tests Test 08/24/17 12:45 Lactic Acid Level 1.34 MMOL/L (0.50-2.00) Progress/Results/Core Measures Results/Orders Lab Results Laboratory Tests Test 08/24/17 12:45 08/24/17 14:20 Range/Units White Blood Count 5.8 4.3-11.0 10^3/uL Red Blood Count 4.22 L 4.35-5.85 10^6/uL Hemoglobin 13.6 11.5-16.0 G/DL Hematocrit 42 35-52 % Mean Corpuscular Volume 98 80-99 FL Mean Corpuscular Hemoglobin 32 25-34 PG Mean Corpuscular Hemoglobin Concent 33 32-36 G/DL Red Cell Distribution Width 13.3 10.0-14.5 % Platelet Count 216 130-400 10^3/uL Mean Platelet Volume 9.7 7.4-10.4 FL Neutrophils (%) (Auto) 51 42-75 % Lymphocytes (%) (Auto) 25 12-44 % Monocytes (%) (Auto) 15 H 0-12 % Eosinophils (%) (Auto) 9 0-10 % Basophils (%) (Auto) 1 0-10 % Neutrophils # (Auto) 3.0 1.8-7.8 X 10^3 Lymphocytes # (Auto) 1.4 1.0-4.0 X 10^3 Monocytes # (Auto) 0.8 0.0-1.0 X 10^3 Eosinophils # (Auto) 0.5 H 0.0-0.3 10^3/uL Basophils # (Auto) 0.0 0.0-0.1 10^3/uL Prothrombin Time 12.6 12.2-14.7 SEC INR Comment 0.9 0.8-1.4 Activated Partial Thromboplast Time 26 24-35 SEC D-Dimer 1.44 H 0.00-0.49 UG/ML Sodium Level 141 135-145 MMOL/L Potassium Level 3.9 3.6-5.0 MMOL/L Chloride Level 107 98-107 MMOL/L Carbon Dioxide Level 24 21-32 MMOL/L Anion Gap 10 5-14 MMOL/L Blood Urea Nitrogen 19 H 7-18 MG/DL Creatinine 1.32 H 0.60-1.30 MG/DL Estimat Glomerular Filtration Rate 40 BUN/Creatinine Ratio 14 Glucose Level 82 70-105 MG/DL Lactic Acid Level 1.34 0.50-2.00 MMOL/L Calcium Level 8.9 8.5-10.1 MG/DL Magnesium Level 2.3 1.8-2.4 MG/DL Total Bilirubin 0.4 0.1-1.0 MG/DL Aspartate Amino Transf (AST/SGOT) 32 5-34 U/L Alanine Aminotransferase (ALT/SGPT) 25 0-55 U/L Alkaline Phosphatase 132 40-136 U/L Total Creatine Kinase 140 29-168 U/L Myoglobin 91.4 10.0-92.0 NG/ML Troponin I < 0.30 <0.30 NG/ML C-Reactive Protein High Sensitivity 0.06 0.00-0.50 MG/DL B-Type Natriuretic Peptide 21.8 <100.0 PG/ML Total Protein 7.4 6.4-8.2 GM/DL Albumin 4.0 3.2-4.5 GM/DL Lipase 29 8-78 U/L Urine Color YELLOW Urine Clarity CLEAR Urine pH 6.5 5-9 Urine Specific [place] 1.015 L 1.016-1.022 Urine Protein NEGATIVE NEGATIVE Urine Glucose (UA) NEGATIVE NEGATIVE Urine Ketones NEGATIVE NEGATIVE Urine Nitrite NEGATIVE NEGATIVE Urine Bilirubin NEGATIVE NEGATIVE Urine Urobilinogen NORMAL NORMAL MG/DL Urine Leukocyte Esterase NEGATIVE NEGATIVE Urine RBC (Auto) NEGATIVE NEGATIVE Urine RBC NONE /HPF Urine WBC NONE /HPF Urine Squamous Epithelial Cells 2-5 /HPF Urine Crystals NONE /LPF Urine Bacteria NEGATIVE /HPF Urine Casts NONE /LPF Urine Mucus NEGATIVE /LPF Urine Culture Indicated NO Micro Results Microbiology 08/24/17 Influenza Types A,B Antigen (JUSTIN) - Final, Complete My Orders Orders - THERESE FINN MD Cbc With Automated Diff (08/24/17 12:35) Magnesium (08/24/17 12:35) Chest 1 View, Ap/Pa Only (08/24/17 12:35) Ekg Tracing (08/24/17 12:35) Cardiac Profile 1 (08/24/17 12:35) Comprehensive Metabolic Panel (08/24/17 12:35) Myoglobin Serum (08/24/17 12:35) Protime With Inr (08/24/17 12:35) Partial Thromboplastin Time (08/24/17 12:35) O2 (08/24/17 12:35) Monitor-Rhythm Ecg Trace Only (08/24/17 12:35) Aspirin Chewable Tablet (Baby Aspirin Ch (08/24/17 12:45) Saline Lock/Iv-Start (08/24/17 12:35) Lipase (08/24/17 12:35) BNP (08/24/17 12:35) Fibrin Degradation Products (08/24/17 12:35) Lactic Acid Analyzer (08/24/17 12:35) Blood Culture (08/24/17 12:35) Influenza A And B Antigens (08/24/17 12:35) Ua Culture If Indicated (08/24/17 12:43) Creatine Kinase (08/24/17 12:43) Hs C Reactive Protein (08/24/17 12:43) Us Venous Lower Ext [place] (08/24/17 14:05) Hydrocodone/Apap 7.5/325 Tab (Lortab 7. (08/24/17 14:24) Medications Given in ED Current Medications Medications Dose Ordered Sig/Cory Route Start Time Stop Time Status Last Admin Dose Admin Aspirin 324 mg ONCE ONCE PO 08/24/17 12:45 08/24/17 12:46 DC 08/24/17 12:52 324 MG Vital Signs/I&O Vital Sign - Last 12Hours 08/24/17 12:30 Temp 98.0 Pulse 50 Resp 11 B/P (MAP) 102/74 (83) Pulse Ox 98 Progress Note : Progress Note Seen and evaluated. IV, labs, EKG and chest x-ray ordered. ASA 324 mg by mouth ordered. Patient has multiple vague complaints and this appears to be chronic by history from the assisted living facility but we will evaluate for current cardiac condition. She does have appointment with her doctor this afternoon and we will have her keep that depending on what we find here in the ER. Patient is on the seventh day of a 7 day antibiotic course of Keflex for possible urinary tract infection potentially. Monitor patient. Patient does have elevated d-dimer mildly but has no hypertension, hypoxia or tachycardia. Overall improved. We will get a ultrasound of the legs to ensure that she has no DVTs. This is negative and no further workup indicated. 1445: I did discuss the case with Dr. Ling. Results reviewed. No acute findings other than edema currently. We will increase her Lasix to twice daily for 3 days and then returned to normal. She is to follow-up with him in 2-3 days. Discharged home with return precautions. Patient verbalize understanding instructions and agreement with plan. ECG Initial ECG Impression Date: Aug 24, 2017 Initial ECG Impression Time: 12:35 Initial ECG Rate: 51 Initial ECG Rhythm: Normal Sinus Comment Sinus rhythm with normal axis. No evidence of ST elevation FL. Unchanged from previous of 30 September 2016. Interpreted by me. Diagnostic Imaging Diagonstic Imaging: Xray Plain Films/CT/US/NM/MRI: chest Comments VIA [facility] [place], [place] NAME: [facility] REC#: [id number] PT STATUS: REG ER : 1950 PHYSICIAN: THERESE FINN MD ADMIT DATE: 08/24/17/ER Draft Date of Exam:08/24/17 CHEST 1 VIEW, AP/PA ONLY INDICATION: Chest pain and dizziness Frontal chest obtained at 12:52 hours pm, and compared with 06/02/17. Heart is borderline in size. There is mild central vascular prominence. There is no focal consolidation or pneumothorax or a pleural fluid. IMPRESSION: Borderline cardiomegaly. No acute consolidation or pleural fluid. Dictated on workstation # [id number] Dict: 08/24/17 1258 Trans: 08/24/17 1301 TRAVIS [id number] Interpreted by: AARON BECKFORD MD Electronically signed by: Lisagonstic Imaging: Ultrasound Plain Films/CT/US/NM/MRI: leg Comments [facility] [place], [place] NAME: [facility] REC#: [id number] PT STATUS: REG ER : 1950 PHYSICIAN: THERESE FINN MD ADMIT DATE: 08/24/17/ER Draft Date of Exam:08/24/17 US VENOUS LOWER EXT K[place] INDICATION: Pain and swelling. FINDINGS: Bilateral lower extremity femoropopliteal deep venous system widely patent. No abnormal color flow. Normal compressibility and normal waveforms. No deep or superficial thrombi. No mass or fluid collections demonstrated. IMPRESSION: Normal negative bilateral lower extremity venous Doppler and ultrasound exam. Dictated on workstation # [id number] Dict: 08/24/17 1504 Trans: 08/24/17 1507 [id number] Interpreted by: MRATINE LIZAMA Electronically signed by: Maximus Impression Impression: Primary Impression: Lower extremity edema Additional Impression: Chest discomfort Disposition: 01 HOME, SELF-CARE Condition: Improved Departure-Patient Inst. Decision time for Depature: 15:39 Referrals: JOVON LING MD (PCP/Family) Primary Care Physician Patient Instructions: Chest Pain (DC), Dependent Edema (DC) Add. Discharge Instructions: Continue medications as directed. Increase Lasix to twice daily dosing for 3 days only and then return to daily dosing. Follow up with Dr. aquino in 2-3 days for recheck. Return for worse pain, fever, vomiting, weakness, breathing problems or other concerns as needed. THERESE FINN MD Aug 24, 2017 12:51
[2017-08-24 12:58] LABS: BASOPHILS % (AUTO) 1 % (0-10); EOSINOPHILS # (AUTO) 0.5 10^3/uL (0.0-0.3); EOSINOPHILS % (AUTO) 9 % (0-10); HEMATOCRIT 42 % (35-52); HEMOGLOBIN 13.6 G/DL (11.5-16.0); LYMPHOCYTES # (AUTO) 1.4 X 10^3 (1.0-4.0); LYMPHOCYTES % (AUTO) 25 % (12-44); MEAN CORPUSCULAR HEMOGLOBIN 32 PG (25-34); MEAN CORPUSCULAR HGB CONC 33 G/DL (32-36); MEAN CORPUSCULAR VOLUME 98 FL (80-99); MEAN PLATELET VOLUME 9.7 FL (7.4-10.4); MONOCYTES # (AUTO) 0.8 X 10^3 (0.0-1.0); MONOCYTES % (AUTO) 15 % (0-12); NEUTROPHILS % (AUTO) 51 % (42-75); PLATELET COUNT 216 10^3/uL (130-400); RED BLOOD COUNT 4.22 10^6/uL (4.35-5.85); RED CELL DISTRIBUTION WIDTH 13.3 % (10.0-14.5); WHITE BLOOD COUNT 5.8 10^3/uL (4.3-11.0)
--- NOTE | 2017-08-24 13:01 | Diagnostic Imaging Report ---
INDICATION: Chest pain and dizziness Frontal chest obtained at 12:52 hours pm, and compared with 06/02/17. Heart is borderline in size. There is mild central vascular prominence. There is no focal consolidation or pneumothorax or a pleural fluid. IMPRESSION: Borderline cardiomegaly. No acute consolidation or pleural fluid. Dictated by: Dictated on workstation # [id number]
[2017-08-24 13:09] LABS: INR 0.9 (0.8-1.4); PROTHROMBIN TIME PATIENT 12.6 SEC (12.2-14.7)
[2017-08-24 13:21] LABS: ALANINE AMINOTRANSFERASE 25 U/L (0-55); ALKALINE PHOSPHATASE 132 U/L (40-136); BILIRUBIN,TOTAL 0.4 MG/DL (0.1-1.0); BUN/CREATININE RATIO 14; CALCIUM 8.9 MG/DL (8.5-10.1); CARBON DIOXIDE 24 MMOL/L (21-32); CHLORIDE 107 MMOL/L (98-107); CREATININE SERUM 1.32 MG/DL (0.60-1.30); GFR ESTIMATED 40; GLUCOSE 82 MG/DL (70-105); LIPASE 29 U/L (8-78); MAGNESIUM 2.3 MG/DL (1.8-2.4); POTASSIUM 3.9 MMOL/L (3.6-5.0); SODIUM 141 MMOL/L (135-145); TOTAL PROTEIN 7.4 GM/DL (6.4-8.2)
[2017-08-24 13:27] LABS: MYOGLOBIN SERUM 91.4 NG/ML (10.0-92.0)
[2017-08-24] MEDS ORDERED: HYDROcodone/APAP 7.5 MG/325 MG (LORTAB, LORCET PLUS) TABLET PO STA (14:24)
[2017-08-24 14:30] LABS: BILIRUBIN,URINE NEGATIVE (NEGATIVE); CLARITY,URINE CLEAR; COLOR,URINE YELLOW; GLUCOSE, URINE (UA) NEGATIVE (NEGATIVE); KETONES,URINE NEGATIVE (NEGATIVE); LEUKOCYTE ESTERASE ,URINE NEGATIVE (NEGATIVE); NITRITE,URINE NEGATIVE (NEGATIVE); PH,URINE 6.5 (5-9); PROTEIN,URINE NEGATIVE (NEGATIVE); UROBILINOGEN,URINE NORMAL (NORMAL)
[2017-08-24 14:40] LABS: BACTERIA,URINE NEGATIVE /HPF
--- NOTE | 2017-08-24 15:08 | Diagnostic Imaging Report ---
INDICATION: Pain and swelling. FINDINGS: Bilateral lower extremity femoropopliteal deep venous system widely patent. No abnormal color flow. Normal compressibility and normal waveforms. No deep or superficial thrombi. No mass or fluid collections demonstrated. IMPRESSION: Normal negative bilateral lower extremity venous Doppler and ultrasound exam. Dictated by: Dictated on workstation # [id number]
[2017-08-24 15:59] VITALS: BP 102/74
== END 2017-08-24 15:59 | disposition home or self-care (01) ==
LOC: EDUNIT# 12:27 → ER 12:29
DX: R07.89 Other chest pain (principal); R60.0 Localized edema; F31.9 Bipolar disorder, unspecified; F03.90 Unspecified dementia, unspecified severity, without behavioral disturbance, psychotic disturbance, mood disturbance, and anxiety; E78.00 Pure hypercholesterolemia, unspecified; K21.9 Gastro-esophageal reflux disease without esophagitis; I25.10 Atherosclerotic heart disease of native coronary artery without angina pectoris; I10 Essential (primary) hypertension; J42 Unspecified chronic bronchitis; G40.909 Epilepsy, unspecified, not intractable, without status epilepticus; Z87.820 Personal history of traumatic brain injury; Z87.891 Personal history of nicotine dependence; Z88.0 Allergy status to penicillin; Z91.040 Latex allergy status; Z79.82 Long term (current) use of aspirin; Z79.52 Long term (current) use of systemic steroids
CPT/HCPCS: 36415; 71045; 80053; 81000; 82550; 83605; 83690; 83735; 83874; 83880; 84484; 85025; 85379; 85610; 85730; 86141; 87040; 87804; 93005; 93041; 93970

== ENCOUNTER → 2017-09-02 | Outpatient (CLI) | payer MEDICARE, BC, MEDICAID ==
--- NOTE | 2017-09-02 10:28 | Diagnostic Imaging Report ---
INDICATION: Pelvic and back pain after fall. AP view of the pelvis is obtained with coned AP and crosstable lateral views of both hips. FINDINGS: No acute fracture or dislocation is identified. No abnormal lytic or sclerotic focus is seen, and there is no radiopaque foreign body. IMPRESSION: No acute abnormality. Dictated by: Dictated on workstation # [id number]
--- NOTE | 2017-09-02 11:41 | Diagnostic Imaging Report ---
PROCEDURE: MR imaging of the brain without contrast. TECHNIQUE: Multiplanar, multisequence MR imaging of the brain was performed without contrast. INDICATION: Dizziness and headache. COMPARISON: Comparison is made with prior MRI brain from 01/29/2012. FINDINGS: The ventricles and sulci are stable in appearance. There continue to be extensive periventricular and subcortical white matter changes, similar to the examination from 2012. This is likely on the basis of chronic microvascular ischemia. No diffusion restriction is seen to suggest acute ischemia. The normal expected flow voids within the carotid siphons are seen. No acute intra-axial or extra-axial hemorrhage is identified. Corpus callosum is unremarkable. The sella and parasellar structures are unremarkable. IMPRESSION: Stable chronic white matter changes when compared with prior exam from 01/29/2012. No acute intracranial process is identified. Dictated by: Dictated on workstation # [id number]
--- NOTE | 2017-09-02 12:29 | Diagnostic Imaging Report ---
INDICATION: Chronic low back pain. Lumbar spine. FINDINGS: AP and lateral views of the lumbar spine show normal alignment. There are no compression fractures. There is slight scoliosis of the lumbar spine convex to the left. There are some degenerative changes of the facet joints at L3-L4 and L4-L5. There are some degenerative disc changes at L2-L3, L3-L4, and L4-:5 as well as disc space narrowing at L5-S1. IMPRESSION: Mild scoliosis. There are degenerative changes of the lumbar discs and facets. There is no acute abnormality seen. Dictated by: Dictated on workstation # [id number]
== END ==
LOC: RAD 09:51
PROVIDERS: ATTEND Nurse Practitioner Family
DX: M47.816 Spondylosis without myelopathy or radiculopathy, lumbar region (principal); M41.9 Scoliosis, unspecified; R90.82 White matter disease, unspecified; M79.605 Pain in left leg; W19.XXXA Unspecified fall, initial encounter
CPT/HCPCS: 70551; 72100; 73523

== ENCOUNTER 2017-11-24 20:31 | Observation (INO) | payer MEDICARE, BC, MEDICAID ==
[~2017-11-24] VITALS: Ht 162.6 cm; Wt 102.1 kg
--- OUTSIDE RECORDS SUMMARY | 2017-11-24 20:36 | XMS REPORT | Clinical Summary ---
Author Author [facility] Organization [facility] Address Unknown Phone Unavailable Care Team Providers Care [place] Assistant Name Role Phone Andres Jo MD [address] Prajapati MD Unavailable Lex Dunne MD, [facility] Unavailable Heavenly Artis MD Unavailable Lori Mistry RN Unavailable Unavailable Lane De Paz RN Unavailable Unavailable Tanisha Duarte MD Unavailable Unavailable Avinash Chung MD Unavailable Unavailable Cecile Ribeiro RN Unavailable Unavailable No Pcp, Na PCP Unavailable Source Comments Some departments are not documenting in the electronic medical record. If you do not see the information that you expected, contact Release of Information in the Health Information Management department at [phone] for further assistance in locating additional records.[facility] Allergies Active Allergy Reactions Severity Noted Date [...] Problem Noted Date PEG (acute kidney injury) (FORM[facility]) 05/19/2016 Disorientation 05/19/2016 Dementia in conditions classified elsewhere without behavioral disturbance 10/11/2007 Other screening mammogram 07/22/2007 Chest pain 07/21/2007 Seizure disorder ([facility]) Brain injury ([facility]) Dementia Psychosis GERD (gastroesophageal reflux disease) Restless leg syndrome Social History Tobacco Use Types Packs/Day Years Used Date Current Every Day Smoker Alcohol Use Drinks/Week oz/Week Comments No Sex Assigned at Date Recorded Not on file Last Filed Vital Signs Vital Sign Reading Time Taken Blood Pressure 135/52 05/19/2016 8:00 AM DATA PROCESSING MECHANIC Pulse 56 05/18/2016 4:43 PM DATA PROCESSING MECHANIC Temperature 36.4 C (97.6 F) 05/19/2016 8:00 AM DATA PROCESSING MECHANIC Respiratory Rate - - Oxygen Saturation 97% 05/19/2016 8:00 AM DATA PROCESSING MECHANIC Inhaled Oxygen - - Concentration Weight 95.3 kg (210 lb) 05/18/2016 4:43 PM DATA PROCESSING MECHANIC Height 162.6 cm (5' 4") 05/18/2016 4:43 PM DATA PROCESSING MECHANIC Body Mass Index 36.05 05/18/2016 4:43 PM DATA PROCESSING MECHANIC Plan of Treatment Health Maintenance Due Date Last Done Comments HEPATITIS C SCREENING 1950 PHYSICAL (COMPREHENSIVE) 1958 EXAM PERTUSSIS VACCINE 1962 TETANUS VACCINE 1968 COLORECTAL CANCER 2001 SCREENING BREAST CANCER SCREENING 07/22/2008 07/22/2007, 07/22/2007 SHINGLES VACCINE 2011 OSTEOPOROSIS SCREENING 2016 PREVNAR/PNEUMOVAX (#1) 2016 INFLUENZA VACCINE 04/04/2018 Results Not on filefrom Last 3 Months
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
--- OUTSIDE RECORDS SUMMARY | 2017-11-24 20:43 | XMS REPORT | Continuity of Care Document ---
Author Author [facility] Address Unknown Phone Unavailable Allergies Active Description Code Type Severity Reaction Onset Reported/Identified Relationship to Patient Clinical Status Yes LATEX, NATURAL RUBBER LATEX , NATURAL RUBBE SEVERE Yes PENICILLIN G BENZATHINE PENICILLIN G BENZATH SEVERE Yes LATEX, NATURAL RUBBER SEVERE DERMATOLOGICAL - ROYER Yes PENICILLIN G BENZATHINE SEVERE DERMATOLOGICAL - ROYER Yes latex OA N/A N/A 11/08/2008 Yes Penicillins Drug Allergy N/A N/A 11/08/2008 Yes latex OA 11/08/2008 Yes Penicillins Drug Allergy 11/08/2008 Yes latex [id number] Drug Allergy Mild N/A 07/22/2013 Yes Penicillins [id number] Drug Allergy Mild N/A 07/22/2013 Yes latex 8921 Drug Allergy N/A N/A 06/18/2016 Confirmed or Verified Yes Penicillins 476 Drug Allergy N/ A N/A 06/18/2016 Confirmed or Verified Medications There is no data. Problems Date Dx Coded Attending Type Code Diagnosis Diagnosed By 11/08/2008 305.1 NICOTINE DEPENDENCE - CONTINUOUS 11/08/2008 345.10 SEIZURE DISORDER 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 11/08/2008 477.9 SPASMODIC RHINORRHEA 11/08/2008 780.4 VERTIGO 11/08/2008 786.2 cough 11/08/2008 V48.5 Pain / Temperature Decrease Neck 11/08/2008 VANESSA PERES MD 305.1 NICOTINE DEPENDENCE - CONTINUOUS 11/08/2008 VANESSA PERES MD 345.10 SEIZURE DISORDER 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 11/08/2008 VANESSA PERES MD 477.9 SPASMODIC RHINORRHEA 11/08/2008 VANESSA PERES MD 780.4 VERTIGO 11/08/2008 VANESSA PERES MD 786.2 cough 11/08/2008 VANESSA PERES MD V48.5 Pain / Temperature Decrease Neck 11/08/2008 305.1 NICOTINE DEPENDENCE - CONTINUOUS 11/08/2008 345.10 SEIZURE DISORDER 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 11/08/2008 477.9 SPASMODIC RHINORRHEA 11/08/2008 780.4 VERTIGO 11/08/2008 786.2 cough 11/08/2008 V48.5 Pain / Temperature Decrease Neck 11/08/2008 VANESSA PERES MD 305.1 Nicotine Dependence - Continuous 11/08/2008 VANESSA PERES MD 345.10 SEIZURE DISORDER 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 11/08/2008 VANESSA PERES MD 477.9 Spasmodic Rhinorrhea 11/08/2008 VANESSA PERES MD 780.4 Vertigo 11/08/2008 VANESSA PERES MD 786.2 Cough 11/08/2008 VANESSA PERES MD V48.5 Pain / Temperature Decrease Neck 11/08/2008 305.1 Nicotine Dependence - Continuous 11/08/2008 345.10 SEIZURE DISORDER 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 11/08/2008 477.9 Spasmodic Rhinorrhea 11/08/2008 780.4 Vertigo 11/08/2008 786.2 Cough 11/08/2008 V48.5 Pain / Temperature Decrease Neck 11/08/2008 VANESSA PERES MD 305.1 Nicotine Dependence - Continuous 11/08/2008 VANESSA PERES MD 345.10 SEIZURE DISORDER 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 11/08/2008 VANESSA PERES MD 477.9 Spasmodic Rhinorrhea 11/08/2008 VANESSA PERES MD 780.4 Vertigo 11/08/2008 VANESSA PERES MD 786.2 Cough 11/08/2008 VANESSA PERES MD V48.5 Pain / Temperature Decrease Neck 11/08/2008 VANESSA PERES MD 305.1 Nicotine Dependence - Continuous 11/08/2008 VANESSA PERES MD 345.10 SEIZURE DISORDER 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 11/08/2008 VANESSA PERES MD 477.9 Spasmodic Rhinorrhea 11/08/2008 VANESSA PERES MD 780.4 Vertigo 11/08/2008 VANESSA PERES MD 786.2 Cough 11/08/2008 VANESSA PERES MD V48.5 Pain / Temperature Decrease Neck 11/08/2008 STANLEY DOSREEA K 305.1 Nicotine Dependence - Continuous 11/08/2008 STANLEY DOAUGUSTUS K 345.10 SEIZURE DISORDER 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 11/08/2008 STANLEY DO, AUGUSTUS K 477.9 Spasmodic Rhinorrhea 11/08/2008 STANLEY DO, AUGUSTUS K 780.4 Vertigo 11/08/2008 STANLEY DO, AUGUSTUS K 786.2 Cough 11/08/2008 STANLEY DO, AUGUSTUS K V48.5 Pain / Temperature Decrease Neck 11/08/2008 STANLEY DO, AUGUSTUS K 305.1 Nicotine Dependence - Continuous 11/08/2008 STANLEY DO, AUGUSTUS K 345.10 SEIZURE DISORDER 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 11/08/2008 STANLEY DO, AUGUSTUS K 477.9 Spasmodic Rhinorrhea 11/08/2008 STANLEY DO, AUGUSTUS K 780.4 Vertigo 11/08/2008 STANLEY DO, AUGUSTUS K 786.2 Cough 11/08/2008 STANLEY DO, AUGUSTUS K V48.5 Pain / Temperature Decrease Neck 11/08/2008 STANLEY DO, AUGUSTUS K 305.1 Nicotine Dependence - Continuous 11/08/2008 STANLEY DO, AUGUSTUS K 345.10 SEIZURE DISORDER 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 11/08/2008 STANLEY DO, AUGUSTUS K 477.9 Spasmodic Rhinorrhea 11/08/2008 STANLEY DO, AUGUSTUS K 780.4 Vertigo 11/08/2008 STANLEY DO, AUGUSTUS K 786.2 Cough 11/08/2008 STANLEY DO, AUGUSTUS K V48.5 Pain / Temperature Decrease Neck 11/08/2008 VANESSA PERES MD 305.1 Nicotine Dependence - Continuous 11/08/2008 VANESSA PERES MD 345.10 SEIZURE DISORDER 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 11/08/2008 VANESSA PERES MD 477.9 Spasmodic Rhinorrhea 11/08/2008 VANESSA PERES MD 780.4 Vertigo 11/08/2008 VANESSA PERES MD 786.2 Cough 11/08/2008 VANESSA PERES MD V48.5 Pain / Temperature Decrease Neck 11/08/2008 VANESSA PERES MD 305.1 Nicotine Dependence - Continuous 11/08/2008 VANESSA PERES MD 345.10 SEIZURE DISORDER 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 11/08/2008 VANESSA PERES MD 477.9 Spasmodic Rhinorrhea 11/08/2008 VANESSA PERES MD 780.4 Vertigo 11/08/2008 VANESSA PERES MD 786.2 Cough 11/08/2008 VANESSA PERES MD V48.5 Pain / Temperature Decrease Neck 11/08/2008 VANESSA PERES MD 305.1 Nicotine Dependence - Continuous 11/08/2008 VANESSA PERES MD 345.10 SEIZURE DISORDER 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 11/08/2008 VANESSA PERES MD 477.9 Spasmodic Rhinorrhea 11/08/2008 VANESSA PERES MD 780.4 Vertigo 11/08/2008 VANESSA PERES MD 786.2 Cough 11/08/2008 VANESSA PERES MD V48.5 Pain / Temperature Decrease Neck 12/31/2008 294.9 OR COG DIS NOS 12/31/2008 VANESSA PERES MD 294.9 OR COG DIS NOS 12/31/2008 294.9 OR COG DIS NOS 12/31/2008 VANESSA PERES MD 294.9 OR COG DIS NOS 12/31/2008 294.9 OR COG DIS NOS 12/31/2008 VANESSA PERES MD 294.9 OR COG DIS NOS 12/31/2008 VANESSA PERES MD 294.9 OR COG DIS NOS 12/31/2008 STANLEY DO, AUGUSTUS K 294.9 OR COG DIS NOS 12/31/2008 STANLEY DO, AUGUSTUS K 294.9 OR COG DIS NOS 12/31/2008 STANLEY DO, AUGUSTUS K 294.9 OR COG DIS NOS 12/31/2008 VANESSA PERES MD 294.9 OR COG DIS NOS 12/31/2008 VANESSA PERES MD 294.9 OR COG DIS NOS 12/31/2008 VANESSA PERES MD 294.9 OR COG DIS NOS 02/26/2009 276.8 HYPOKALEMIA 02/26/2009 VANESSA PERES MD 276.8 HYPOKALEMIA 02/26/2009 276.8 HYPOKALEMIA 02/26/2009 VANESSA PERES MD 276.8 Hypokalemia 02/26/2009 276.8 Hypokalemia 02/26/2009 VANESSA PERES MD 276.8 Hypokalemia 02/26/2009 VANESSA PERES MD 276.8 Hypokalemia 02/26/2009 STANLEY DO, AUGUSTUS K 276.8 Hypokalemia 02/26/2009 STANLEY DO, AUGUSTUS K 276.8 Hypokalemia 02/26/2009 STANLEY DO, AUGUSTUS K 276.8 Hypokalemia 02/26/2009 VANESSA PERES MD 276.8 Hypokalemia 02/26/2009 VANESSA PERES MD 276.8 Hypokalemia 02/26/2009 VANESSA PERES MD 276.8 Hypokalemia 03/16/2009 465.9 ACUTE UPPER RESPIRATORY INFECTIONS OF UNSPECIFIED SITE 03/16/2009 786.52 PAINFUL RESPIRATION 03/16/2009 VANESSA PERES MD 465.9 ACUTE UPPER RESPIRATORY INFECTIONS OF UNSPECIFIED SITE 03/16/2009 VANESSA PERES MD 786.52 PAINFUL RESPIRATION 03/16/2009 465.9 ACUTE UPPER RESPIRATORY INFECTIONS OF UNSPECIFIED SITE 03/16/2009 786.52 PAINFUL RESPIRATION 03/16/2009 VANESSA PERES MD 465.9 Acute Upper Respiratory Infections Of Unspecified Site 03/16/2009 VANESSA PERES MD 786.52 Painful Respiration 03/16/2009 465.9 Acute Upper Respiratory Infections Of Unspecified Site 03/16/2009 786.52 Painful Respiration 03/16/2009 VANESSA PERES MD 465.9 Acute Upper Respiratory Infections Of Unspecified Site 03/16/2009 VANESSA PERES MD 786.52 Painful Respiration 03/16/2009 VANESSA PERES MD 465.9 Acute Upper Respiratory Infections Of Unspecified Site 03/16/2009 VANESSA PERES MD 786.52 Painful Respiration 03/16/2009 STANLEY DO, AUGUSTUS K 465.9 Acute Upper Respiratory Infections Of Unspecified Site 03/16/2009 STANLEY DO, AUGUSTUS K 786.52 Painful Respiration 03/16/2009 STANLEY DO, AUGUSTUS K 465.9 Acute Upper Respiratory Infections Of Unspecified Site 03/16/2009 STANLEY DO, AUGUSTUS K 786.52 Painful Respiration 03/16/2009 STANLEY DO, AUGUSTUS K 465.9 Acute Upper Respiratory Infections Of Unspecified Site 03/16/2009 STANLEY DO, AUGUSTUS K 786.52 Painful Respiration 03/16/2009 VANESSA PERES MD 465.9 Acute Upper Respiratory Infections Of Unspecified Site 03/16/2009 VANESSA PERES MD 786.52 Painful Respiration 03/16/2009 VANESSA PERES MD 465.9 Acute Upper Respiratory Infections Of Unspecified Site 03/16/2009 VANESSA PERES MD 786.52 Painful Respiration 03/16/2009 VANESSA PERES MD 465.9 Acute Upper Respiratory Infections Of Unspecified Site 03/16/2009 VANESSA PERES MD 786.52 Painful Respiration 07/19/2009 296.9 MOOD DIS NOS 07/19/2009 300.00 ANXIETY UNSPEC 07/19/2009 536.8 DYSPEPSIA AND OTHER SPECIFIED DISORDERS OF FUNCTION OF STOMACH 07/19/2009 VANESSA PERES MD 296.9 MOOD DIS NOS 07/19/2009 VANESSA PERES MD 300.00 ANXIETY UNSPEC 07/19/2009 VANESSA PERES MD 536.8 DYSPEPSIA AND OTHER SPECIFIED DISORDERS OF FUNCTION OF STOMACH 07/19/2009 296.9 MOOD DIS NOS 07/19/2009 300.00 ANXIETY UNSPEC 07/19/2009 536.8 DYSPEPSIA AND OTHER SPECIFIED DISORDERS OF FUNCTION OF STOMACH 07/19/2009 VANESSA PERES MD 296.9 MOOD DIS NOS 07/19/2009 VANESSA PERES MD 300.00 ANXIETY UNSPEC 07/19/2009 VANESSA PERES MD 536.8 DYSPEPSIA AND OTHER SPECIFIED DISORDERS OF FUNCTION OF STOMACH 07/19/2009 296.9 MOOD DIS NOS 07/19/2009 300.00 ANXIETY UNSPEC 07/19/2009 536.8 DYSPEPSIA AND OTHER SPECIFIED DISORDERS OF FUNCTION OF STOMACH 07/19/2009 VANESSA PERES MD 296.9 MOOD DIS NOS 07/19/2009 VANESSA PERES MD 300.00 ANXIETY UNSPEC 07/19/2009 VANESSA PERES MD 536.8 DYSPEPSIA AND OTHER SPECIFIED DISORDERS OF FUNCTION OF STOMACH 07/19/2009 VANESSA PERES MD 296.9 MOOD DIS NOS 07/19/2009 VANESSA PERES MD 300.00 ANXIETY UNSPEC 07/19/2009 VANESSA PERES MD 536.8 DYSPEPSIA AND OTHER SPECIFIED DISORDERS OF FUNCTION OF STOMACH 07/19/2009 STANLEY DO, AUGUSTUS K 296.9 MOOD DIS NOS 07/19/2009 STANLEY DO, AUGUSTUS K 300.00 ANXIETY UNSPEC 07/19/2009 STANLEY DO, AUGUSTUS K 536.8 DYSPEPSIA AND OTHER SPECIFIED DISORDERS OF FUNCTION OF STOMACH 07/19/2009 STANLEY DO, AUGUSTUS K 296.9 MOOD DIS NOS 07/19/2009 STANLEY DO, AUGUSTUS K 300.00 ANXIETY UNSPEC 07/19/2009 STANLEY DO, AUGUSTUS K 536.8 DYSPEPSIA AND OTHER SPECIFIED DISORDERS OF FUNCTION OF STOMACH 07/19/2009 STANLEY DO, AUGUSTUS K 296.9 MOOD DIS NOS 07/19/2009 AUGUSTUS STANLEY DO K 300.00 ANXIETY UNSPEC 07/19/2009 AUGUSTUS STANLEY DO K 536.8 DYSPEPSIA AND OTHER SPECIFIED DISORDERS OF FUNCTION OF STOMACH 07/19/2009 VANESSA PERES MD 296.9 MOOD DIS NOS 07/19/2009 VANESSA PERES MD 300.00 ANXIETY UNSPEC 07/19/2009 VANESSA PERES MD 536.8 DYSPEPSIA AND OTHER SPECIFIED DISORDERS OF FUNCTION OF STOMACH 07/19/2009 VANESSA PERES MD 296.9 MOOD DIS NOS 07/19/2009 VANESSA PERES MD 300.00 ANXIETY UNSPEC 07/19/2009 VANESSA PERES MD 536.8 DYSPEPSIA AND OTHER SPECIFIED DISORDERS OF FUNCTION OF STOMACH 07/19/2009 VANESSA PERES MD 296.9 MOOD DIS NOS 07/19/2009 VANESSA PERES MD 300.00 ANXIETY UNSPEC 07/19/2009 VANESSA PERES MD 536.8 DYSPEPSIA AND OTHER SPECIFIED DISORDERS OF FUNCTION OF STOMACH 09/03/2009 787.91 DIARRHEA 09/03/2009 VANESSA PERES MD 787.91 DIARRHEA 09/03/2009 787.91 DIARRHEA 09/03/2009 LARISA SOTELO, VANESSA 787.91 Diarrhea 09/03/2009 787.91 Diarrhea 09/03/2009 LARISA SOTELO, VANESSA 787.91 Diarrhea 09/03/2009 VANESSA PERES MD 787.91 Diarrhea 09/03/2009 AUGUSTUS STANLEY DO K 787.91 Diarrhea 09/03/2009 AUGUSTUS STANLEY DO K 787.91 Diarrhea 09/03/2009 AUGUSTUS STANLEY DO K 787.91 Diarrhea 09/03/2009 VANESSA PERES MD 787.91 Diarrhea 09/03/2009 VANESSA PERES MD 787.91 Diarrhea 09/03/2009 VANESSA PERES MD 787.91 Diarrhea 10/14/2009 733.00 OSTEOPOROSIS 10/14/2009 V49.81 ASYMPTOMATIC POSTMENOPAUSAL STATUS (AGE-RELATED) (NATURAL) 10/14/2009 V72.31 ROUTINE GYNECOLOGICAL EXAMINATION 10/14/2009 VANESSA PERES MD 733.00 OSTEOPOROSIS 10/14/2009 VANESSA PERES MD V49.81 ASYMPTOMATIC POSTMENOPAUSAL STATUS (AGE-RELATED) (NATURAL) 10/14/2009 VANESSA PERES MD V72.31 ROUTINE GYNECOLOGICAL EXAMINATION 10/14/2009 733.00 OSTEOPOROSIS 10/14/2009 V49.81 ASYMPTOMATIC POSTMENOPAUSAL STATUS (AGE-RELATED) (NATURAL) 10/14/2009 V72.31 ROUTINE GYNECOLOGICAL EXAMINATION 10/14/2009 VANESSA PERES MD 733.00 OSTEOPOROSIS 10/14/2009 VANESSA PERES MD V49.81 ASYMPTOMATIC POSTMENOPAUSAL STATUS (AGE-RELATED) (NATURAL) 10/14/2009 VANESSA PERES MD V72.31 Routine Gynecological Examination 10/14/2009 733.00 OSTEOPOROSIS 10/14/2009 V49.81 ASYMPTOMATIC POSTMENOPAUSAL STATUS (AGE-RELATED) (NATURAL) 10/14/2009 V72.31 Routine Gynecological Examination 10/14/2009 VANESSA PERES MD 733.00 OSTEOPOROSIS 10/14/2009 VANESSA PERES MD V49.81 ASYMPTOMATIC POSTMENOPAUSAL STATUS (AGE-RELATED) (NATURAL) 10/14/2009 VANESSA PERES MD V72.31 Routine Gynecological Examination 10/14/2009 VANESSA PERES MD 733. OSTEOPOROSIS 10/14/2009 VANESSA PERES MD V49.81 ASYMPTOMATIC POSTMENOPAUSAL STATUS (AGE-RELATED) (NATURAL) 10/14/2009 VANESSA PERES MD V72.31 Routine Gynecological Examination 10/14/2009 STANLEY DO, AUGUSTUS K 733.00 OSTEOPOROSIS 10/14/2009 STANLEY DO AUGUSTUS K V49.81 ASYMPTOMATIC POSTMENOPAUSAL STATUS (AGE-RELATED) (NATURAL) 10/14/2009 STANLEY DO, AUGUSTUS K V72.31 Routine Gynecological Examination 10/14/2009 STANLEY DO, AUGUSTUS K 733.00 OSTEOPOROSIS 10/14/2009 STANLEY DO AUGUSTUS K V49.81 ASYMPTOMATIC POSTMENOPAUSAL STATUS (AGE-RELATED) (NATURAL) 10/14/2009 STANLEY DO, AUGUSTUS K V72.31 Routine Gynecological Examination 10/14/2009 STANLEY DO, AUGUSTUS K 733.00 OSTEOPOROSIS 10/14/2009 STANLEY DO AUGUSTUS K V49.81 ASYMPTOMATIC POSTMENOPAUSAL STATUS (AGE-RELATED) (NATURAL) 10/14/2009 STANLEY , AUGUSTUS K V72.31 Routine Gynecological Examination 10/14/2009 VANESSA PERES MD 733.00 OSTEOPOROSIS 10/14/2009 VANESSA PERES MD V49.81 ASYMPTOMATIC POSTMENOPAUSAL STATUS (AGE-RELATED) (NATURAL) 10/14/2009 VANESSA PERES MD V72.31 Routine Gynecological Examination 10/14/2009 VANESSA PERES MD 733.00 OSTEOPOROSIS 10/14/2009 VANESSA PERES MD V49.81 ASYMPTOMATIC POSTMENOPAUSAL STATUS (AGE-RELATED) (NATURAL) 10/14/2009 VANESSA PERES MD V72.31 Routine Gynecological Examination 10/14/2009 VANESSA PERES MD 733.00 OSTEOPOROSIS 10/14/2009 VANESSA PERES MD V49.81 ASYMPTOMATIC POSTMENOPAUSAL STATUS (AGE-RELATED) (NATURAL) 10/14/2009 VANESSA PERES MD V72.31 Routine Gynecological Examination 11/05/2009 307.47 SI DYSSOMNIA NOS 11/05/2009 VANESSA PERES MD 307.47 SI DYSSOMNIA NOS 11/05/2009 307.47 SI DYSSOMNIA NOS 11/05/2009 VANESSA PERES MD 307.47 SI DYSSOMNIA NOS 11/05/2009 307.47 SI DYSSOMNIA NOS 11/05/2009 VANESSA PERES MD 307.47 SI DYSSOMNIA NOS 11/05/2009 VANESSA PERES MD 307.47 SI DYSSOMNIA NOS 11/05/2009 STANLEY AUGUSTUS CRAFT K 307.47 SI DYSSOMNIA NOS 11/05/2009 STANLEY DOAUGUSTUS K 307.47 SI DYSSOMNIA NOS 11/05/2009 STANLEY , AUGUSTUS K 307.47 SI DYSSOMNIA NOS 11/05/2009 VANESSA PERES MD 307.47 SI DYSSOMNIA NOS 11/05/2009 VANESSA PERES MD 307.47 SI DYSSOMNIA NOS 11/05/2009 VANESSA PERES MD 307.47 SI DYSSOMNIA NOS 11/21/2009 331.0 ALZHEIMER'S DISEASE 11/21/2009 333.94 RESTLESS LEGS SYNDROME (RLS) 11/21/2009 787.01 NAUSEA WITH VOMITING 11/21/2009 789.01 ABDOMINAL PAIN, RIGHT UPPER QUADRANT 11/21/2009 VANESSA PERES MD 331.0 ALZHEIMER'S DISEASE 11/21/2009 VANESSA PERES MD 333.94 RESTLESS LEGS SYNDROME (RLS) 11/21/2009 VANESSA PERES MD 787.01 NAUSEA WITH VOMITING 11/21/2009 VANESSA PERES MD 789.01 ABDOMINAL PAIN, RIGHT UPPER QUADRANT 11/21/2009 331.0 ALZHEIMER'S DISEASE 11/21/2009 333.94 RESTLESS LEGS SYNDROME (RLS) 11/21/2009 787.01 NAUSEA WITH VOMITING 11/21/2009 789.01 ABDOMINAL PAIN, RIGHT UPPER QUADRANT 11/21/2009 VANESSA PERES MD 331.0 ALZHEIMER'S DISEASE 11/21/2009 VANESSA PERES MD 333.94 RESTLESS LEGS SYNDROME (RLS) 11/21/2009 VANESSA PERES MD 787.01 Nausea With Vomiting 11/21/2009 VANESSA PERES MD 789.01 Abdominal Pain, Right Upper Quadrant 11/21/2009 331.0 ALZHEIMER'S DISEASE 11/21/2009 333.94 RESTLESS LEGS SYNDROME (RLS) 11/21/2009 787.01 Nausea With Vomiting 11/21/2009 789.01 Abdominal Pain, Right Upper Quadrant 11/21/2009 VANESSA PERES MD 331.0 ALZHEIMER'S DISEASE 11/21/2009 VANESSA PERES MD 333.94 RESTLESS LEGS SYNDROME (RLS) 11/21/2009 VANESSA PERES MD 787.01 Nausea With Vomiting 11/21/2009 VANESSA PERES MD 789.01 Abdominal Pain, Right Upper Quadrant 11/21/2009 VANESSA PERES MD 331.0 ALZHEIMER'S DISEASE 11/21/2009 VANESSA PERES MD 333.94 RESTLESS LEGS SYNDROME (RLS) 11/21/2009 VANESSA PERES MD 787.01 Nausea With Vomiting 11/21/2009 VANESSA PERES MD 789.01 Abdominal Pain, Right Upper Quadrant 11/21/2009 STANLEY DO, AUGUSTUS K 331.0 ALZHEIMER'S DISEASE 11/21/2009 STANLEY DO, AUGUSTUS K 333.94 RESTLESS LEGS SYNDROME (RLS) 11/21/2009 STANLEY DO, AUGUSTUS K 787.01 Nausea With Vomiting 11/21/2009 STANLEY DO, AUGUSTUS K 789.01 Abdominal Pain, Right Upper Quadrant 11/21/2009 STANLEY DO, AUGUSTUS K 331.0 ALZHEIMER'S DISEASE 11/21/2009 STANLEY DO, AUGUSTUS K 333.94 RESTLESS LEGS SYNDROME (RLS) 11/21/2009 STANLEY DO, AUGUSTUS K 787.01 Nausea With Vomiting 11/21/2009 STANLEY DO, AUGUSTUS K 789.01 Abdominal Pain, Right Upper Quadrant 11/21/2009 STANLEY DO AUGUSTUS K 331.0 ALZHEIMER'S DISEASE 11/21/2009 STANLEY DO AUGUSTUS K 333.94 RESTLESS LEGS SYNDROME (RLS) 11/21/2009 JADEN CRAFT AUGUSTUS K 787.01 Nausea With Vomiting 11/21/2009 STANLEY DO AUGUSTUS K 789.01 Abdominal Pain, Right Upper Quadrant 11/21/2009 VANESSA PEERS MD 331.0 ALZHEIMER'S DISEASE 11/21/2009 VANESSA PERES MD 333.94 RESTLESS LEGS SYNDROME (RLS) 11/21/2009 VANESSA PERES MD 787.01 Nausea With Vomiting 11/21/2009 VANESSA PERES MD 789.01 Abdominal Pain, Right Upper Quadrant 11/21/2009 VANESSA PERES MD 331.0 ALZHEIMER'S DISEASE 11/21/2009 VANESSA PERES MD 333.94 RESTLESS LEGS SYNDROME (RLS) 11/21/2009 VANESSA PERES MD 787.01 Nausea With Vomiting 11/21/2009 VANESSA PERES MD 789.01 Abdominal Pain, Right Upper Quadrant 11/21/2009 VANESSA PERES MD 331.0 ALZHEIMER'S DISEASE 11/21/2009 VANESSA PERES MD 333.94 RESTLESS LEGS SYNDROME (RLS) 11/21/2009 VANESSA PERES MD 787.01 Nausea With Vomiting 11/21/2009 VANESSA PERES MD 789.01 Abdominal Pain, Right Upper Quadrant 12/31/2009 V58.69 MEDICATION HIGH RISK 12/31/2009 VANESSA PERES MD V58.69 MEDICATION HIGH RISK 12/31/2009 V58.69 MEDICATION HIGH RISK 12/31/2009 VANESSA PERES MD V58.69 Medication High Risk 12/31/2009 V58.69 Medication High Risk 12/31/2009 VANESSA PERES MD V58.69 Medication High Risk 12/31/2009 VANESSA PERES MD V58.69 Medication High Risk 12/31/2009 JADEN CRAFT AUGUSTUS K V58.69 Medication High Risk 12/31/2009 STANLEY DO AUGUSTUS K V58.69 Medication High Risk 12/31/2009 STANLEY DO AUGUSTUS K V58.69 Medication High Risk 12/31/2009 VANESSA PERES MD V58.69 Medication High Risk 12/31/2009 LARISA SOTELO, VANESSA V58.69 Medication High Risk 12/31/2009 LARISA SOTELO, VANESSA V58.69 Medication High Risk 03/28/2010 578.1 BLOOD IN STOOL 03/28/2010 789.00 ABDOMINAL PAIN UNSPECIFIED SITE 03/28/2010 V76.10 BREAST SCREENING, UNSPECIFIED 03/28/2010 LARISA SOTELO, VANESSA 578.1 BLOOD IN STOOL 03/28/2010 LARISA SOTELO, VANESSA 789.00 ABDOMINAL PAIN UNSPECIFIED SITE 03/28/2010 VANESSA PERES MD V76.10 BREAST SCREENING, UNSPECIFIED 03/28/2010 578.1 BLOOD IN STOOL 03/28/2010 789.00 ABDOMINAL PAIN UNSPECIFIED SITE 03/28/2010 V76.10 BREAST SCREENING, UNSPECIFIED 03/28/2010 LARISA SOTELO, VANESSA 578.1 Blood In Stool 03/28/2010 LARISA SOTELO, VANESSA 789.00 Abdominal Pain Unspecified Site 03/28/2010 VANESSA PERES MD V76.10 Breast Screening, Unspecified 03/28/2010 578.1 Blood In Stool 03/28/2010 789.00 Abdominal Pain Unspecified Site 03/28/2010 V76.10 Breast Screening, Unspecified 03/28/2010 VANESSA PERES MD 578.1 Blood In Stool 03/28/2010 VANESSA PERES MD 789.00 Abdominal Pain Unspecified Site 03/28/2010 VANESSA PERES MD V76.10 Breast Screening, Unspecified 03/28/2010 VANESSA PERES MD 578.1 Blood In Stool 03/28/2010 VANESSA PERES MD 789.00 Abdominal Pain Unspecified Site 03/28/2010 VANESSA PERES MD V76.10 Breast Screening, Unspecified 03/28/2010 STANLEY DO AUGUSTUS K 578.1 Blood In Stool 03/28/2010 STANLEY DO AUGUSTUS K 789.00 Abdominal Pain Unspecified Site 03/28/2010 STANLEY DO AUGUSTUS K V76.10 Breast Screening, Unspecified 03/28/2010 STANLEY DO AUGUSTUS K 578.1 Blood In Stool 03/28/2010 STANLEY DO AUGUSTUS K 789.00 Abdominal Pain Unspecified Site 03/28/2010 STANLEY DO AUGUSTUS K V76.10 Breast Screening, Unspecified 03/28/2010 STANLEY AUGUSTUS CRAFT 578.1 Blood In Stool 03/28/2010 JADEN CRAFT AUGUSTUS K 789.00 Abdominal Pain Unspecified Site 03/28/2010 STANLEY DO AUGUSTUS Travis V76.10 Breast Screening, Unspecified 03/28/2010 VANESSA PERES MD 578.1 Blood In Stool 03/28/2010 VANESSA PERES MD 789.00 Abdominal Pain Unspecified Site 03/28/2010 VANESSA PERES MD V76.10 Breast Screening, Unspecified 03/28/2010 VANESSA PERES MD 578.1 Blood In Stool 03/28/2010 VANESSA PERES MD 789.00 Abdominal Pain Unspecified Site 03/28/2010 VANESSA PERES MD V76.10 Breast Screening, Unspecified 03/28/2010 VANESSA PERES MD 578.1 Blood In Stool 03/28/2010 VANESSA PERES MD 789.00 Abdominal Pain Unspecified Site 03/28/2010 VANESSA PERES MD V76.10 Breast Screening, Unspecified 05/07/2010 Ot 562.10 05/07/2010 Ot 565.0 08/28/2010 V68.1 ISSUE OF REPEAT PRESCRIPTIONS 08/28/2010 V70.0 GENERAL MEDICAL EXAM, ROUTINE, AT HEALTH CARE FACILITY 08/28/2010 VANESSA PERES MD V68.1 ISSUE OF REPEAT PRESCRIPTIONS 08/28/2010 VANESSA PERES MD V70.0 GENERAL MEDICAL EXAM, ROUTINE, AT HEALTH CARE FACILITY 08/28/2010 V68.1 ISSUE OF REPEAT PRESCRIPTIONS 08/28/2010 V70.0 GENERAL MEDICAL EXAM, ROUTINE, AT HEALTH CARE FACILITY 08/28/2010 VANESSA PERES MD V68.1 Issue Of Repeat Prescriptions 08/28/2010 VANESSA PERES MD V70.0 General Medical Exam, Routine, At Health Care Facility 08/28/2010 V68.1 Issue Of Repeat Prescriptions 08/28/2010 V70.0 General Medical Exam, Routine, At Health Care Facility 08/28/2010 VANESSA PERES MD V68.1 Issue Of Repeat Prescriptions 08/28/2010 VANESSA PERES MD V70.0 General Medical Exam, Routine, At Health Care Facility 08/28/2010 VANESSA PERES MD V68.1 Issue Of Repeat Prescriptions 08/28/2010 VANESSA PERES MD V70.0 General Medical Exam, Routine, At Health Care Facility 08/28/2010 AUGUSTUS STANLEY DO V68.1 Issue Of Repeat Prescriptions 08/28/2010 AUGUSTUS STANLEY DO V70.0 General Medical Exam, Routine, At Health Care Facility 08/28/2010 AUGUSTUS STANLEY DO V68.1 Issue Of Repeat Prescriptions 08/28/2010 AUGUSTUS STANLEY DO V70.0 General Medical Exam, Routine, At Health Care Facility 08/28/2010 AUGUSTUS STANLEY DO V68.1 Issue Of Repeat Prescriptions 08/28/2010 AUGUSTUS STANLEY DO V70.0 General Medical Exam, Routine, At Health Care Facility 08/28/2010 VANESSA PERES MD V68.1 Issue Of Repeat Prescriptions 08/28/2010 VANESSA PERES MD V70.0 General Medical Exam, Routine, At Health Care Facility 08/28/2010 VANESSA PERES MD V68.1 Issue Of Repeat Prescriptions 08/28/2010 VANESSA PERES MD V70.0 General Medical Exam, Routine, At Health Care Facility 08/28/2010 VANESSA PERES MD V68.1 Issue Of Repeat Prescriptions 08/28/2010 VANESSA PERES MD V70.0 General Medical Exam, Routine, At Health Care Facility 10/08/2010 Ot 294.10 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 10/08/2010 Ot 331.0 ALZHEIMER'S DISEASE 10/08/2010 Ot 345.90 EPILEPSY UNSPEC W/O MENTION INTRACTABLE 10/08/2010 Ot 398.90 RHEUMATIC HEART DIS NOS 10/08/2010 Ot 401.9 HYPERTENSION NOS 10/08/2010 Ot 414.01 CORONARY ATHEROSCLEROSIS OF [place] CORON 10/08/2010 Ot 530.81 ESOPHAGEAL REFLUX 11/06/2010 696.1 PSORIASIS 11/06/2010 VANESSA PERES MD 696.1 PSORIASIS 11/06/2010 696.1 PSORIASIS 11/06/2010 VANESSA PERES MD 696.1 PSORIASIS 11/06/2010 696.1 PSORIASIS 11/06/2010 VANESSA PERES MD 696.1 PSORIASIS 11/06/2010 VANESSA PERES MD 696.1 PSORIASIS 11/06/2010 AUGUSTUS STANLEY DO 696.1 PSORIASIS 11/06/2010 AUGUSTUS STANLEY DO 696.1 PSORIASIS 11/06/2010 STANLEY DO, AUGUSTUS K 696.1 PSORIASIS 11/06/2010 LARISA SOTELO, VANESSA 696.1 PSORIASIS 11/06/2010 LARISA SOTELO, VANESSA 696.1 PSORIASIS 11/06/2010 LARISA SOTELO, VANESSA 696.1 PSORIASIS 03/31/2011 466.0 Bronchitis, Acute 03/31/2011 786.07 Wheezing 03/31/2011 VANESSA PERES MD 466.0 Bronchitis, Acute 03/31/2011 LARISA SOTELO, VANESSA 786.07 Wheezing 03/31/2011 466.0 Bronchitis, Acute 03/31/2011 786.07 Wheezing 03/31/2011 VANESSA PERES MD 466.0 Bronchitis, Acute 03/31/2011 VANESSA PERES MD 786.07 Wheezing 03/31/2011 466.0 Bronchitis, Acute 03/31/2011 786.07 Wheezing 03/31/2011 LARISA SOTELO, VANESSA 466.0 Bronchitis, Acute 03/31/2011 VANESSA PERES MD 786.07 Wheezing 03/31/2011 VANESSA PERES MD 466.0 Bronchitis, Acute 03/31/2011 VANESSA PERES MD 786.07 Wheezing 03/31/2011 STANLEY DO, AUGUSTUS K 466.0 Bronchitis, Acute 03/31/2011 STANLEY DO, AUGUSTUS K 786.07 Wheezing 03/31/2011 STANLEY DO, AUGUSTUS K 466.0 Bronchitis, Acute 03/31/2011 STANLEY DO, AUGUSTUS K 786.07 Wheezing 03/31/2011 STANLEY DO, AUGUSTUS K 466.0 Bronchitis, Acute 03/31/2011 STANLEY DO, AUGUSTUS K 786.07 Wheezing 03/31/2011 VANESSA PERES MD 466.0 Bronchitis, Acute 03/31/2011 VANESSA PERES MD 786.07 Wheezing 03/31/2011 VANESSA PERES MD 466.0 Bronchitis, Acute 03/31/2011 VANESSA PERES MD 786.07 Wheezing 03/31/2011 VANESSA PERES MD 466.0 Bronchitis, Acute 03/31/2011 VANESSA PERES MD 786.07 Wheezing 06/16/2011 Ot 305.1 TOBACCO USE DISORDER 06/16/2011 Ot 345.90 EPILEPSY UNSPEC W/O MENTION INTRACTABLE 06/16/2011 Ot 780.4 DIZZINESS AND GIDDINESS 06/16/2011 Ot 780.79 OTH MALAISE FATIGUE 06/16/2011 Ot V58.69 OT MED,LT, CURRENT USE 06/17/2011 345.90 SEIZURE DISORDER 06/17/2011 786.50 Chest Pain 06/17/2011 VANESSA PERES MD 345.90 SEIZURE DISORDER 06/17/2011 VANESSA PERES MD 786.50 Chest Pain 06/17/2011 345.90 SEIZURE DISORDER 06/17/2011 786.50 Chest Pain 06/17/2011 VANESSA PERES MD 345.90 Seizure Disorder 06/17/2011 VANESSA PERES MD 786.50 Chest Pain 06/17/2011 345.90 Seizure Disorder 06/17/2011 786.50 Chest Pain 06/17/2011 VANESSA PERES MD 345.90 Seizure Disorder 06/17/2011 VANESSA PERES MD 786.50 Chest Pain 06/17/2011 VANESSA PERES MD 345.90 Seizure Disorder 06/17/2011 VANESSA PERES MD 786.50 Chest Pain 06/17/2011 STANLEY DO, AUGUSTUS K 345.90 Seizure Disorder 06/17/2011 STANLEY DO, AUGUSTUS K 786.50 Chest Pain 06/17/2011 STANLEY DO, AUGUSTUS K 345.90 Seizure Disorder 06/17/2011 STANLEY DO, AUGUSTUS K 786.50 Chest Pain 06/17/2011 STANLEY DO, AUGUSTUS K 345.90 Seizure Disorder 06/17/2011 STANLEY DO, AUGUSTUS K 786.50 Chest Pain 06/17/2011 VANESSA PERES MD 345.90 Seizure Disorder 06/17/2011 VANESSA PERES MD 786.50 Chest Pain 06/17/2011 VANESSA PERES MD.90 Seizure Disorder 06/17/2011 VANESSA PERES MD 786.50 Chest Pain 06/17/2011 VANESSA PERES MD 345.90 Seizure Disorder 06/17/2011 VANESSA PERES MD 786.50 Chest Pain 06/19/2011 Ot 272.4 HYPERLIPIDEMIA NEC/NOS 06/19/2011 Ot 276.8 HYPOPOTASSEMIA 06/19/2011 Ot 294.11 DEMENTIA IN CONDITIONS W/ BEHAVIORAL DIS 06/19/2011 Ot 311 DEPRESSIVE DISORDER NEC 06/19/2011 Ot 331.0 ALZHEIMER'S DISEASE 06/19/2011 Ot 414.01 CORONARY ATHEROSCLEROSIS OF [place] CORON 06/19/2011 Ot 427.89 CARDIAC DYSRHYTHMIAS NEC 06/19/2011 Ot 530.81 ESOPHAGEAL REFLUX 06/19/2011 Ot 696.1 OTHER PSORIASIS 06/19/2011 Ot 780.39 OTHER CONVULSIONS 06/19/2011 Ot 781.2 ABNORMALITY OF GAIT 06/19/2011 Ot 786.59 CHEST PAIN NEC 06/19/2011 Ot E941.0 ADV EFF CHOLINERGICS 06/19/2011 Ot E942.5 ADV EFF VASODILATORS NEC 10/14/2011 723.1 Cervicalgia 10/14/2011 729.5 PAIN IN LIMB 10/14/2011 780.79 MALAISE AND FATIGUE 10/14/2011 783.21 WEIGHT LOSS 10/14/2011 V72.62 LAB SCREENING - GENERAL PHYSICAL 10/14/2011 V78.0 ANEMIA SCREENING 10/14/2011 VANESSA PERES MD 723.1 Cervicalgia 10/14/2011 VANESSA PERES MD 729.5 PAIN IN LIMB 10/14/2011 VANESSA PERES MD 780.79 MALAISE AND FATIGUE 10/14/2011 VANESSA PERES MD 783.21 WEIGHT LOSS 10/14/2011 VANESAS PERES MD V72.62 LAB SCREENING- GENERAL PHYSICAL 10/14/2011 VANESSA PERES MD V78.0 ANEMIA SCREENING 10/14/2011 723.1 Cervicalgia 10/14/2011 729.5 PAIN IN LIMB 10/14/2011 780.79 MALAISE AND FATIGUE 10/14/2011 783.21 WEIGHT LOSS 10/14/2011 V72.62 LAB SCREENING - GENERAL PHYSICAL 10/14/2011 V78.0 ANEMIA SCREENING 10/14/2011 VANESSA PERES MD 723.1 Cervicalgia 10/14/2011 VANESSA PERES MD 729.5 Pain In Limb 10/14/2011 VANESSA PERES MD 780.79 Malaise And Fatigue 10/14/2011 VANESSA PERES MD 783.21 Weight Loss 10/14/2011 VANESSA PERES MD V72.62 Lab Screening- General Physical 10/14/2011 VANESSA PERES MD V78.0 ANEMIA SCREENING 10/14/2011 723.1 Cervicalgia 10/14/2011 729.5 Pain In Limb 10/14/2011 780.79 Malaise And Fatigue 10/14/2011 783.21 Weight Loss 10/14/2011 V72.62 Lab Screening - General Physical 10/14/2011 V78.0 ANEMIA SCREENING 10/14/2011 VANESSA PERES MD 723.1 Cervicalgia 10/14/2011 VANESSA PERES MD 729.5 Pain In Limb 10/14/2011 VANESSA PERES MD 780.79 Malaise And Fatigue 10/14/2011 VANESSA PERES MD 783.21 Weight Loss 10/14/2011 VANESSA PERES MD V72.62 Lab Screening- General Physical 10/14/2011 VANESSA PERES MD V78.0 ANEMIA SCREENING 10/14/2011 VANESSA PERES MD 723.1 Cervicalgia 10/14/2011 VANESSA PERES MD 729.5 Pain In Limb 10/14/2011 VANESSA PERES MD 780.79 Malaise And Fatigue 10/14/2011 VANESSA PERES MD 783.21 Weight Loss 10/14/2011 VANESSA PERES MD V72.62 Lab Screening- General Physical 10/14/2011 VANESSA PERES MD V78.0 ANEMIA SCREENING 10/14/2011 STANLEY DO, AUGUSTUS K 723.1 Cervicalgia 10/14/2011 STANLEY DO, AUGUSTUS K 729.5 Pain In Limb 10/14/2011 STANLEY DO, AUGUSTUS K 780.79 Malaise And Fatigue 10/14/2011 STANLEY DO, AUGUSTUS K 783.21 Weight Loss 10/14/2011 STANLEY DO, AUGUSTUS K V72.62 Lab Screening- General Physical 10/14/2011 STANLEY DO, AUGUSTUS K V78.0 ANEMIA SCREENING 10/14/2011 STANLEY DO, AUGUSTUS K 723.1 Cervicalgia 10/14/2011 STANLEY DO, AUGUSTUS K 729.5 Pain In Limb 10/14/2011 STANLEY DO, AUGUSTUS K 780.79 Malaise And Fatigue 10/14/2011 STANLEY DO, AUGUSTUS K 783.21 Weight Loss 10/14/2011 STANLEY DO, AUGUSTUS K V72.62 Lab Screening- General Physical 10/14/2011 STANLEY DO, AUGSUTUS K V78.0 ANEMIA SCREENING 10/14/2011 STANLEY DO, AUGUSTUS K 723.1 Cervicalgia 10/14/2011 STANLEY DO, AUGUSTUS K 729.5 Pain In Limb 10/14/2011 STANLEY DO, AUGUSTUS K 780.79 Malaise And Fatigue 10/14/2011 JADEN CRAFT AUGUSTUS K 783.21 Weight Loss 10/14/2011 JADEN CRAFT AUGUSTUS K V72.62 Lab Screening- General Physical 10/14/2011 JADEN CRAFT AUGUSTUS Robles V78.0 ANEMIA SCREENING 10/14/2011 VANESSA PERES MD 723.1 Cervicalgia 10/14/2011 VANESSA PERES MD 729.5 Pain In Limb 10/14/2011 VANESSA PERES MD 780.79 Malaise And Fatigue 10/14/2011 VANESSA PERES MD 783.21 Weight Loss 10/14/2011 VANESSA PERES MD V72.62 Lab Screening- General Physical 10/14/2011 VANESSA PERES MD V78.0 ANEMIA SCREENING 10/14/2011 VANESSA PERES MD 723.1 Cervicalgia 10/14/2011 VANESAS PERES MD 729.5 Pain In Limb 10/14/2011 VANESSA PERES MD 780.79 Malaise And Fatigue 10/14/2011 VANESSA PERES MD 783.21 Weight Loss 10/14/2011 VANESSA PERES MD V72.62 Lab Screening- General Physical 10/14/2011 VANESSA PERES MD V78.0 ANEMIA SCREENING 10/14/2011 VANESSA PERES MD 723.1 Cervicalgia 10/14/2011 VANESSA PERES MD 729.5 Pain In Limb 10/14/2011 VANESSA PERES MD 780.79 Malaise And Fatigue 10/14/2011 VANESSA PERES MD 783.21 Weight Loss 10/14/2011 VANESSA PERES MD V72.62 Lab Screening- General Physical 10/14/2011 VANESSA PERES MD V78.0 ANEMIA SCREENING 05/03/2012 272.4 OTHER AND UNSPECIFIED HYPERLIPIDEMIA 05/03/2012 VANESSA PERES MD 272.4 OTHER AND UNSPECIFIED HYPERLIPIDEMIA 05/03/2012 272.4 OTHER AND UNSPECIFIED HYPERLIPIDEMIA 05/03/2012 VANESSA PERES MD 272.4 OTHER AND UNSPECIFIED HYPERLIPIDEMIA 05/03/2012 272.4 OTHER AND UNSPECIFIED HYPERLIPIDEMIA 05/03/2012 VANESSA PERES MD 272.4 OTHER AND UNSPECIFIED HYPERLIPIDEMIA 05/03/2012 VANESSA PERES MD 272.4 OTHER AND UNSPECIFIED HYPERLIPIDEMIA 05/03/2012 SREE STANLEY DOA K 272.4 OTHER AND UNSPECIFIED HYPERLIPIDEMIA 05/03/2012 JADEN CRAFT AUGUSTUS K 272.4 OTHER AND UNSPECIFIED HYPERLIPIDEMIA 05/03/2012 JADEN CRAFT AUGUSTUS K 272.4 OTHER AND UNSPECIFIED HYPERLIPIDEMIA 05/03/2012 VANESSA PERES MD 272.4 OTHER AND UNSPECIFIED HYPERLIPIDEMIA 05/03/2012 VANESSA PERES MD 272.4 OTHER AND UNSPECIFIED HYPERLIPIDEMIA 05/03/2012 VANESSA PERES MD 272.4 OTHER AND UNSPECIFIED HYPERLIPIDEMIA 07/07/2012 VANESSA PERES MD 466.0 ACUTE BRONCHITIS 07/07/2012 466.0 ACUTE BRONCHITIS 07/07/2012 VANESSA PERES MD 466.0 Acute Bronchitis 07/07/2012 466.0 Acute Bronchitis 07/07/2012 VANESSA PERES MD 466.0 Acute Bronchitis 07/07/2012 VANESSA PERES MD 466.0 Acute Bronchitis 07/07/2012 AUGUSTUS STANLEY DO K 466.0 Acute Bronchitis 07/07/2012 AUGUSTUS STANLEY DO K 466.0 Acute Bronchitis 07/07/2012 SREE STANLEY DOA K 466.0 Acute Bronchitis 07/07/2012 VANESSA PERES MD 466.0 Acute Bronchitis 07/07/2012 VANESSA PERES MD 466.0 Acute Bronchitis 07/07/2012 VANESSA PERES MD 466.0 Acute Bronchitis 08/26/2012 VANESSA PERES MD 427.89 OTHER SPECIFIED CARDIAC DYSRHYTHMIAS 08/26/2012 427.89 OTHER SPECIFIED CARDIAC DYSRHYTHMIAS 08/26/2012 VANESSA PERES MD 427.89 OTHER SPECIFIED CARDIAC DYSRHYTHMIAS 08/26/2012 VANESSA PERES MD 427.89 OTHER SPECIFIED CARDIAC DYSRHYTHMIAS 08/26/2012 AUGUSTUS STANLEY DO K 427.89 OTHER SPECIFIED CARDIAC DYSRHYTHMIAS 08/26/2012 SREE STANLEY DOA K 427.89 OTHER SPECIFIED CARDIAC DYSRHYTHMIAS 08/26/2012 SREE STANLEY DOA K 427.89 OTHER SPECIFIED CARDIAC DYSRHYTHMIAS 08/26/2012 VANESSA PERES MD 427.89 OTHER SPECIFIED CARDIAC DYSRHYTHMIAS 08/26/2012 VANESSA PERES MD 427.89 OTHER SPECIFIED CARDIAC DYSRHYTHMIAS 08/26/2012 VANESSA PERES MD 427.89 OTHER SPECIFIED CARDIAC DYSRHYTHMIAS 10/16/2012 Ot 272.4 HYPERLIPIDEMIA NEC/NOS 10/16/2012 Ot 414.00 CORON ATHEROSCLER NOS TYPE VESSEL, NATIV 10/16/2012 Ot 427.89 CARDIAC DYSRHYTHMIAS NEC 10/16/2012 Ot 491.9 CHRONIC BRONCHITIS NOS 05/02/2013 VANESSA PERES MD 625.9 UNSPECIFIED SYMPTOM ASSOCIATED WITH FEMALE GENITAL ORGANS 05/02/2013 AUGUSTUS STANLEY DO 625.9 UNSPECIFIED SYMPTOM ASSOCIATED WITH FEMALE GENITAL ORGANS 05/02/2013 AUGUSTUS STANLEY DO 625.9 UNSPECIFIED SYMPTOM ASSOCIATED WITH FEMALE GENITAL ORGANS 05/02/2013 AUGUSTUS STANLEY DO 625.9 UNSPECIFIED SYMPTOM ASSOCIATED WITH FEMALE GENITAL ORGANS 05/02/2013 VANESSA PERES MD 625.9 UNSPECIFIED SYMPTOM ASSOCIATED WITH FEMALE GENITAL ORGANS 05/02/2013 VANESSA PERES MD 625.9 UNSPECIFIED SYMPTOM ASSOCIATED WITH FEMALE GENITAL ORGANS 05/02/2013 VANESSA PERES MD 625.9 UNSPECIFIED SYMPTOM ASSOCIATED WITH FEMALE GENITAL ORGANS 05/16/2013 AUGUSTUS STNALEY DO 461.9 SINUSITIS ACUTE 05/16/2013 AUGUSTUS STANLEY DO 461.9 SINUSITIS ACUTE 05/16/2013 AUGUSTUS STANLEY DO 461.9 SINUSITIS ACUTE 05/16/2013 VANESSA PERES MD 461.9 SINUSITIS ACUTE 05/16/2013 VANESSA PERES MD 461.9 SINUSITIS ACUTE 05/16/2013 VANESSA PERES MD 461.9 SINUSITIS ACUTE 07/22/2013 AUGUSTUS STANLEY DO Ot 272.4 HYPERLIPIDEMIA NEC/NOS 07/22/2013 AUGUSTUS STANLEY DO Ot 294.10 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 07/22/2013 AUGUSTUS STANLYE DO Ot 311 DEPRESSIVE DISORDER NEC 07/22/2013 AUGUSTUS STANLEY DO Ot 331.0 ALZHEIMER'S DISEASE 07/22/2013 AUGUSTUS STANLEY DO Ot 345.90 EPILEPSY UNSPEC W/O MENTION INTRACTABLE 07/22/2013 AUGUSTUS STANLEY DO Ot 401.9 HYPERTENSION NOS 07/22/2013 AUGUSTUS STANLEY DO Ot 414.01 CORONARY ATHEROSCLEROSIS OF [place] CORON 07/22/2013 AUGUSTUS STANLEY DO Ot 426.4 RT BUNDLE BRANCH BLOCK 07/22/2013 AUGUSTUS STANLEY DO Ot 427.89 CARDIAC DYSRHYTHMIAS NEC 07/22/2013 AUGUSTUS STANLEY DO Ot 443.9 PERIPH VASCULAR DIS NOS 07/22/2013 AUGUSTUS STANLEY DO Ot 458.9 HYPOTENSION NOS 07/22/2013 AUGUSTUS STANLEY DO Ot 530.81 ESOPHAGEAL REFLUX 07/22/2013 AUGUSTUS STANLEY DO Ot 715.90 OSTEOARTHROS NOS-UNSPEC 07/22/2013 AUGUSTUS STANLEY DO Ot 780.4 DIZZINESS AND GIDDINESS 07/22/2013 AUGUSTUS STANLEY DO Ot 782.0 SKIN SENSATION DISTURB 07/22/2013 AUGUSTUS STANLEY DO Ot 784.0 HEADACHE 07/22/2013 AUGUSTUS STANLEY DO Ot 786.05 SHORTNESS OF BREATH 07/22/2013 AUGUSTUS STANLEY DO Ot 786.59 CHEST PAIN NEC 07/22/2013 AUGUSTUS STANLEY DO Ot 787.02 NAUSEA ALONE 07/22/2013 AUGUSTUS STANLEY DO Ot V15.52 PERSONAL HISTORY OF TRAUMATIC BRAIN INJU 07/22/2013 AUGUSTUS STANLEY DO Ot V58.66 LONG-TERM (CURRENT) USE OF ASPIRIN 07/22/2013 AUGUSTUS STANLEY DO Ot V58.69 OTH MED,LT,CURRENT USE 02/02/2014 VANESSA PERES MD 716.90 UNSPECIFIED ARTHROPATHY SITE UNSPECIFIED 02/02/2014 VANESSA PERES MD 728.87 MUSCLE WEAKNESS (GENERALIZED) 02/02/2014 VANESSA PERES MD6.90 UNSPECIFIED ARTHROPATHY SITE UNSPECIFIED 02/02/2014 VANESSA PERES MD 728.87 MUSCLE WEAKNESS (GENERALIZED) 02/02/2014 VANESSA PERES MD6.90 UNSPECIFIED ARTHROPATHY SITE UNSPECIFIED 02/02/2014 VANESSA PERES MD8.87 MUSCLE WEAKNESS (GENERALIZED) 07/04/2015 BELINDA RIVERA DO Ot Z12.31 07/16/2015 BELINDA RIVERA DO Ot Z12.31 10/05/2015 Ot F03.90 UNSPECIFIED DEMENTIA WITHOUT BEHAVIORAL 10/05/2015 Ot I10 ESSENTIAL ( PRIMARY) HYPERTENSION 10/05/2015 Ot J40 BRONCHITIS, NOT SPECIFIED ACUTE OR CH 10/05/2015 Ot N39.0 URINARY TRACT INFECTION, SITE NOT SPECIF 10/07/2015 Ot V76.12 10/07/2015 Ot 722.4 10/07/2015 Ot 724.1 10/07/2015 Ot 729.5 10/07/2015 Ot 785.9 10/07/2015 Ot 780.39 10/07/2015 Ot 272.4 10/07/2015 Ot 414.00 10/07/2015 Ot 427.89 10/07/2015 Ot 491.9 10/07/2015 BELINDA RIVERA DO S Ot 278.00 10/07/2015 BELINDA RIVERA DO S Ot 625.9 10/07/2015 BELINDA RIVERA DO S Ot V76.12 10/07/2015 BRANDIE SOTELO, INGA Oleary Ot 272.4 10/07/2015 BRANDIE SOTELO, INGA Oleary Ot 305.1 10/07/2015 INGA DIEGO MD Ot 401.9 10/07/2015 INGA DIEGO MD Ot 414.00 10/07/2015 INGA DIEGO MD Ot 427.81 10/07/2015 INGA DIEGO MD Ot 530.81 10/07/2015 ROZ SOTELO FACC, ALI FACP CCDS Ot 789.30 10/07/2015 BELINDA RIVERA DO S Ot Z12.31 10/07/2015 Ot V76.12 10/07/2015 Ot 722.4 10/07/2015 Ot 724.1 10/07/2015 Ot 729.5 10/07/2015 Ot 785.9 10/07/2015 Ot 780.39 10/07/2015 Ot 272.4 10/07/2015 Ot 414.00 10/07/2015 Ot 427.89 10/07/2015 Ot 491.9 10/07/2015 BELINDA RIVERA DO S Ot 278.00 10/07/2015 BELINDA RIVERA DO S Ot 625.9 10/07/2015 BELINDA RIVERA DO S Ot V76.12 10/07/2015 BRANDIE SOTELO, INGA Oleary Ot 272.4 10/07/2015 BRANDIE SOTELO, INGA Oleary Ot 305.1 10/07/2015 BRANDIE SOTELO, INGA Oleary Ot 401.9 10/07/2015 BRANDIE SOTELO, INGA Oleary Ot 414.00 10/07/2015 BRANDIE SOTELO, INGA Oleary Ot 427.81 10/07/2015 BRANDIE SOTELO, INGA Oleary Ot 530.81 10/07/2015 ROZ SOTELO FACC, ALI FACP CCDS Ot 789.30 10/07/2015 BELINDA IRVERA DO Ot Z12.31 10/11/2015 Ot F03.90 10/11/2015 Ot I10 10/11/2015 Ot J40 10/11/2015 Ot N39.0 10/14/2015 RAE BUTLER MD Ot E78.5 HYPERLIPIDEMIA, UNSPECIFIED 10/14/2015 RAE BUTLER MD Ot F03.90 UNSPECIFIED DEMENTIA WITHOUT BEHAVIORAL 10/14/2015 RAE BUTLER MD Ot F17.210 NICOTINE DEPENDENCE, CIGARETTES, UNCOMPL 10/14/2015 RAE BUTLER MD Ot G40.909 EPILEPSY, UNSP, NOT INTRACTABLE, WITHOUT 10/14/2015 RAE BUTLER MD Ot I10 ESSENTIAL (PRIMARY) HYPERTENSION 10/14/2015 RAE BUTLER MD Ot I25.10 ATHSCL HEART DISEASE OF [place] CORONARY 10/14/2015 RAE BUTLER MD Ot K21.9 GASTRO-ESOPHAGEAL REFLUX DISEASE WITHOUT 10/14/2015 RAE BUTLER MD Ot M79.89 OTHER SPECIFIED SOFT TISSUE DISORDERS 10/14/2015 RAE BUTLER MD Ot R00.1 BRADYCARDIA, UNSPECIFIED 10/14/2015 RAE BUTLER MD Ot R07.9 CHEST PAIN, UNSPECIFIED 10/14/2015 RAE BUTLER MD Ot R10.13 EPIGASTRIC PAIN 10/14/2015 RAE BUTLER MD Ot R74.8 ABNORMAL LEVELS OF OTHER SERUM ENZYMES 10/31/2015 Ot V76.12 OT SCREEN MAMMO-MALIGN NEOPLASM OF [place] 10/31/2015 Ot 722.4 CERVICAL DISC DEGEN 10/31/2015 Ot 724.1 PAIN IN THORACIC SPINE 10/31/2015 Ot 729.5 PAIN IN LIMB 10/31/2015 Ot 785.9 CARDIOVAS SYS SYMP NEC 10/31/2015 Ot 780.39 OTHER CONVULSIONS 10/31/2015 Ot 272.4 HYPERLIPIDEMIA NEC/NOS 10/31/2015 Ot 414.00 CORON ATHEROSCLER NOS TYPE VESSEL, NATIV 10/31/2015 Ot 427.89 CARDIAC DYSRHYTHMIAS NEC 10/31/2015 Ot 491.9 CHRONIC BRONCHITIS NOS 10/31/2015 FENECH DO, BELINDA S Ot 278.00 OBESITY, NOS 10/31/2015 BELINDA RIVERA DO S Ot 625.9 FEM GENITAL SYMPTOMS NOS 10/31/2015 MIGUEL CRAFT BELINDA Peggy Ot V76.12 OTH SCREEN MAMMO-MALIGN NEOPLASM OF [place] 10/31/2015 INGA DIEGO MD Ot 272.4 HYPERLIPIDEMIA NEC/NOS 10/31/2015 INGA DIEGO MD Ot 305.1 TOBACCO USE DISORDER 10/31/2015 INGA DIEGO MD Ot 401.9 HYPERTENSION NOS 10/31/2015 INGA DIEGO MD Ot 414.00 CORON ATHEROSCLER NOS TYPE VESSEL, NATIV 10/31/2015 INGA DIEGO MD Ot 427.81 SINOATRIAL NODE DYSFUNCT 10/31/2015 INGA DIEGO MD Ot 530.81 ESOPHAGEAL REFLUX 10/31/2015 ROZ SOTELO FACC, ALI FACP CCDS Ot 789.30 ABDOMINAL/PELVIC SWELLING,MASS/LUMP UNSP 10/31/2015 MIGUEL CRAFT BELINDA Peggy Ot Z12.31 ENCNTR SCREEN MAMMOGRAM FOR MALIGNANT NE 03/25/2016 A 290.41 VASCULAR DEMENTIA, WITH DELIRIUM 03/25/2016 A F01.51 VASCULAR DEMENTIA WITH BEHAVIORAL DISTURBANCE 04/01/2016 W 295.70 04/01/2016 W 345.90 EPILEPSY, UNSPECIFIED, WITHOUT MENTION OF INTRACTABLE EPILEPSY 04/01/2016 W 401.0 MALIGNANT ESSENTIAL HYPERTENSION 04/01/2016 W 782.3 EDEMA 04/01/2016 W F25.9 SCHIZOAFFECTIVE DISORDER, UNSPECIFIED 04/01/2016 W G40.909 EPILEPSY, UNSP, NOT INTRACTABLE, WITHOUT STATUS EPILEPTICUS 04/01/2016 W I10 ESSENTIAL ( PRIMARY) HYPERTENSION 04/01/2016 W R60.0 LOCALIZED EDEMA 05/01/2016 PUSHPA SOTELO, INDIA Sims Ot Z01.818 ENCOUNTER FOR OTHER PREPROCEDURAL EXAMIN 05/01/2016 INDIA BARROW MD Ot Z12.11 ENCOUNTER FOR SCREENING FOR MALIGNANT NE 05/04/2016 INDIA BARROW MD Ot Z01.818 ENCOUNTER FOR OTHER PREPROCEDURAL EXAMIN 05/04/2016 INDIA BARROW MD Ot Z12.11 ENCOUNTER FOR SCREENING FOR MALIGNANT NE 05/12/2016 GENNY CHAVEZ W 295.70 SCHIZOAFFECTIVE DISORDER, UNSPECIFIED 05/12/2016 GENNY CHAVEZ F25.1 SCHIZOAFFECTIVE DISORDER, DEPRESSIVE TYPE 06/10/2016 RYAN VALENZUELA DIRECTOR OF HEAD START Ot F03.90 UNSPECIFIED DEMENTIA WITHOUT BEHAVIORAL 06/10/2016 RYAN VALENZUELA DIRECTOR OF HEAD START Ot G40.909 EPILEPSY, UNSP, NOT INTRACTABLE, WITHOUT 06/10/2016 RYAN VALENZUELA DIRECTOR OF HEAD START Ot J40 BRONCHITIS, NOT SPECIFIED ACUTE OR CH 06/10/2016 RYAN VALENZUELA DIRECTOR OF HEAD START Ot R06.02 SHORTNESS OF BREATH 06/10/2016 RYAN VALENZUELA DIRECTOR OF HEAD START Ot R42 DIZZINESS AND GIDDINESS 06/10/2016 RYAN VALENZUELA APRN Ot Z79.82 PALEOLOGIST (CURRENT) USE OF ASPIRIN 06/10/2016 RYAN VALENZUELA APRN Ot Z79.899 OTHER PALEOLOGIST (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 THERAPY 06/10/2016 RYAN VALENZUELA APRN Ot Z87.820 PERSONAL HISTORY OF TRAUMATIC BRAIN INJU 06/10/2016 Ot V76.12 OTH SCREEN MAMMO-MALIGN NEOPLASM OF [place] 06/10/2016 Ot 722.4 CERVICAL DISC DEGEN 06/10/2016 Ot 724.1 PAIN IN THORACIC SPINE 06/10/2016 Ot 729.5 PAIN IN LIMB 06/10/2016 Ot 785.9 CARDIOVAS SYS SYMP NEC 06/10/2016 Ot 780.39 OTHER CONVULSIONS 06/10/2016 Ot 272.4 HYPERLIPIDEMIA NEC/NOS 06/10/2016 Ot 414.00 CORON ATHEROSCLER NOS TYPE VESSEL, NATIV 06/10/2016 Ot 427.89 CARDIAC DYSRHYTHMIAS NEC 06/10/2016 Ot 491.9 CHRONIC BRONCHITIS NOS 06/10/2016 BELINDA RIVERA DO S Ot 278.00 OBESITY, NOS 06/10/2016 BELINDA RIVERA DO Ot 625.9 FEM GENITAL SYMPTOMS NOS 06/10/2016 BELINDA RIVERA DO Ot V76.12 OTH SCREEN MAMMO-MALIGN NEOPLASM OF [place] 06/10/2016 INGA DIEGO MD Ot 272.4 HYPERLIPIDEMIA NEC/NOS 06/10/2016 INGA DIEGO MD Ot 305.1 TOBACCO USE DISORDER 06/10/2016 INGA DIEGO MD Ot 401.9 HYPERTENSION NOS 06/10/2016 INGA DIEGO MD Ot 414.00 CORON ATHEROSCLER NOS TYPE VESSEL, NATIV 06/10/2016 BRANDIE SOTELO, INGA Oleary Ot 427.81 SINOATRIAL NODE DYSFUNCT 06/10/2016 BRANDIE SOTELO, INGA Oleary Ot 530.81 ESOPHAGEAL REFLUX 06/10/2016 ROZ SOTELO FACC, ALI FACP CCDS Ot 789.30 ABDOMINAL/PELVIC SWELLING,MASS/LUMP UNSP 06/10/2016 OVIAINSLEY CRAFT BELINDA Woods Ot Z12.31 ENCNTR SCREEN MAMMOGRAM FOR MALIGNANT NE 06/19/2016 INDIA BARROW MD Ot R19.7 DIARRHEA, UNSPECIFIED 06/19/2016 INDIA BARROW MD Ot Z01.818 ENCOUNTER FOR OTHER PREPROCEDURAL EXAMIN 07/02/2016 LEI VILLEGAS MD D69.6 Thrombocytopenia, unspecified 07/02/2016 LEI VILLEGAS MD E87.8 Oth disorders of electrolyte and fluid balance, NEC 07/02/2016 LEI VILLEGAS MD F01.51 Vascular dementia with behavioral disturbance 07/02/2016 LEI VILLEGAS MD F31.64 Bipolar disord, crnt episode mixed, severe, w psych features 07/02/2016 LEI VILLEGAS MD J06.9 Acute upper respiratory infection, unspecified 07/02/2016 LEI VILLEGAS MD R00.1 Bradycardia, unspecified 07/02/2016 LEI VILLEGAS MD R19.7 Diarrhea, unspecified 07/02/2016 LEI VILLEGAS MD R45.1 Restlessness and agitation 07/02/2016 LEI VILLEGAS MD R60.0 Localized edema 07/02/2016 LEI VILLEGAS MD R74.8 Abnormal levels of other serum enzymes 07/02/2016 LEI VILLEGAS MD Z87.891 Personal history of nicotine dependence 08/03/2016 FABIOLA HERNANDEZ DO, Ot I10 ESSENTIAL (PRIMARY) HYPERTENSION 08/03/2016 FABIOLA HERNANDEZ DO, Ot I25.10 ATHSCL HEART DISEASE OF [place] CORONARY 08/03/2016 FABIOLA HERNANDEZ DO, Ot S01.01XA LACERATION WITHOUT FOREIGN BODY OF SCALP 08/03/2016 FABIOLA HERNANDEZ DO, Ot W01.0XXA FALL SAME LEV FROM SLIP/TRIP W/O STRIKE 08/03/2016 FABIOLA HERNANDEZ DO Ot Y99.8 OTHER EXTERNAL CAUSE STATUS 08/03/2016 FABIOLA HERNANDEZ DO, Ot Z23 ENCOUNTER FOR IMMUNIZATION 08/03/2016 FABIOLA HERNANDEZ DO, Ot Z79.82 PALEOLOGIST (CURRENT) USE OF ASPIRIN 08/03/2016 FABIOLA HERNANDEZ DO, Ot Z79.899 OTHER MCC (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 THERAPY 08/04/2016 FABIOLA HERNANDEZ DO Ot I10 ESSENTIAL (PRIMARY) HYPERTENSION 08/04/2016 FABIOLA HERNANDEZ DO, Ot I25.10 ATHSCL HEART DISEASE OF [place] CORONARY 08/04/2016 FABIOLA HERNANDEZ DO Ot S01.01XA LACERATION WITHOUT FOREIGN BODY OF SCALP 08/04/2016 FABIOLA HERNANDEZ DO, Ot W01.0XXA FALL SAME LEV FROM SLIP/TRIP W/O STRIKE 08/04/2016 FABIOLA HERNANDEZ DO Ot Y99.8 OTHER EXTERNAL CAUSE STATUS 08/04/2016 FABIOLA HERNANDEZ DO, Ot Z23 ENCOUNTER FOR IMMUNIZATION 08/04/2016 FABIOLA HERNANDEZ DO, Ot Z79.82 MCC (CURRENT) USE OF ASPIRIN 08/04/2016 FABIOLA HERNANDEZ DO, Ot Z79.899 OTHER PALEOLOGIST (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 THERAPY 08/11/2016 FABIOLA HERNANDEZ DO Ot I10 ESSENTIAL (PRIMARY) HYPERTENSION 08/11/2016 FABIOLA HERNANDEZ DO, Ot I25.10 ATHSCL HEART DISEASE OF [place] CORONARY 08/11/2016 FABIOLA HERNANDEZ DO Ot S01.01XA LACERATION WITHOUT FOREIGN BODY OF SCALP 08/11/2016 FABIOLA HERNANDEZ DO, Ot W01.0XXA FALL SAME LEV FROM SLIP/TRIP W/O STRIKE 08/11/2016 FABIOLA HERNANDEZ DO Ot Y99.8 OTHER EXTERNAL CAUSE STATUS 08/11/2016 FABIOLA HERNANDEZ DO Ot Z23 ENCOUNTER FOR IMMUNIZATION 08/11/2016 FABIOLA HERNANDEZ DO, Ot Z79.82 MCC (CURRENT) USE OF ASPIRIN 08/11/2016 FABIOLA HERNANDEZ DO, Ot Z79.899 OTHER PALEOLOGIST (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 THERAPY 08/24/2016 Ot V76.12 OTH SCREEN MAMMO-MALIGN NEOPLASM OF [place] 08/24/2016 Ot 722.4 CERVICAL DISC DEGEN 08/24/2016 Ot 724.1 PAIN IN THORACIC SPINE 08/24/2016 Ot 729.5 PAIN IN LIMB 08/24/2016 Ot 785.9 CARDIOVAS SYS SYMP NEC 08/24/2016 Ot 780.39 OTHER CONVULSIONS 08/24/2016 Ot 272.4 HYPERLIPIDEMIA NEC/NOS 08/24/2016 Ot 414.00 CORON ATHEROSCLER NOS TYPE VESSEL, NATIV 08/24/2016 Ot 427.89 CARDIAC DYSRHYTHMIAS NEC 08/24/2016 Ot 491.9 CHRONIC BRONCHITIS NOS 08/24/2016 BELINDA RIVERA DO S Ot 278.00 OBESITY, NOS 08/24/2016 MIGUEL DO, BELINDA S Ot 625.9 FEM GENITAL SYMPTOMS NOS 08/24/2016 BELINDA RIVERA DO S Ot V76.12 OTH SCREEN MAMMO-MALIGN NEOPLASM OF [place] 08/24/2016 INGA DIEGO MD Ot 272.4 HYPERLIPIDEMIA NEC/NOS 08/24/2016 INGA DIEGO MD Ot 305.1 TOBACCO USE DISORDER 08/24/2016 INGA DIEGO MD Ot 401.9 HYPERTENSION NOS 08/24/2016 INGA DIEGO MD Ot 414.00 CORON ATHEROSCLER NOS TYPE VESSEL, NATIV 08/24/2016 INGA DIEGO MD Ot 427.81 SINOATRIAL NODE DYSFUNCT 08/24/2016 INGA DIEGO MD Ot 530.81 ESOPHAGEAL REFLUX 08/24/2016 ROZ SOTELO FACC, ALI FACP CCDS Ot 789.30 ABDOMINAL/PELVIC SWELLING,MASS/LUMP UNSP 08/24/2016 BELINDA RIVERA DO S Ot Z12.31 ENCNTR SCREEN MAMMOGRAM FOR MALIGNANT NE 08/24/2016 INDIA BARROW MD Ot R19.7 DIARRHEA, UNSPECIFIED 08/24/2016 INDIA BARROW MD Ot Z01.818 ENCOUNTER FOR OTHER PREPROCEDURAL EXAMIN 08/26/2016 SOLIS PIRES MD Ot H83.03 LABYRINTHITIS, BILATERAL 08/26/2016 SOLIS PIRES MD Ot I10 ESSENTIAL (PRIMARY) HYPERTENSION 08/26/2016 SOLIS PIRES MD Ot I25.10 ATHSCL HEART DISEASE OF [place] CORONARY 08/26/2016 SOLIS PIRES MD Ot R42 DIZZINESS AND GIDDINESS 08/26/2016 SOLIS PIRES MD Ot Z79.82 PALEOLOGIST (CURRENT) USE OF ASPIRIN 08/26/2016 SOLIS PIRES MD Ot Z79.899 OTHER MCC (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 THERAPY 08/27/2016 Ot V76.12 OTH SCREEN MAMMO-MALIGN NEOPLASM OF [place] 08/27/2016 Ot 722.4 CERVICAL DISC DEGEN 08/27/2016 Ot 724.1 PAIN IN THORACIC SPINE 08/27/2016 Ot 729.5 PAIN IN LIMB 08/27/2016 Ot 785.9 CARDIOVAS SYS SYMP NEC 08/27/2016 Ot 780.39 OTHER CONVULSIONS 08/27/2016 Ot 272.4 HYPERLIPIDEMIA NEC/NOS 08/27/2016 Ot 414.00 CORON ATHEROSCLER NOS TYPE VESSEL, NATIV 08/27/2016 Ot 427.89 CARDIAC DYSRHYTHMIAS NEC 08/27/2016 Ot 491.9 CHRONIC BRONCHITIS NOS 08/27/2016 FENECH DO, BELINDA S Ot 278.00 OBESITY, NOS 08/27/2016 FENECH DO, BELINDA S Ot 625.9 FEM GENITAL SYMPTOMS NOS 08/27/2016 FENECH DO, BELINDA S Ot V76.12 OTH SCREEN MAMMO-MALIGN NEOPLASM OF [place] 08/27/2016 BRANDIE SOTELO, INGA Oleary Ot 272.4 HYPERLIPIDEMIA NEC/NOS 08/27/2016 INGA DIEGO MD Ot 305.1 TOBACCO USE DISORDER 08/27/2016 INGA DIEGO MD Ot 401.9 HYPERTENSION NOS 08/27/2016 INGA DIEGO MD Ot 414.00 CORON ATHEROSCLER NOS TYPE VESSEL, NATIV 08/27/2016 INGA DIEGO MD Ot 427.81 SINOATRIAL NODE DYSFUNCT 08/27/2016 INGA DIEGO MD Ot 530.81 ESOPHAGEAL REFLUX 08/27/2016 ROZ SOTELO FACC, ALI FACP CCDS Ot 789.30 ABDOMINAL/PELVIC SWELLING,MASS/LUMP UNSP 08/27/2016 FENAINSLEY DO BELINDA S Ot Z12.31 ENCNTR SCREEN MAMMOGRAM FOR MALIGNANT NE 08/27/2016 INDIA BARROW MD Ot R19.7 DIARRHEA, UNSPECIFIED 08/27/2016 INDIA BARROW MD Ot Z01.818 ENCOUNTER FOR OTHER PREPROCEDURAL EXAMIN 08/27/2016 ANURADHA SOTELO, JOVON Post Ot Z12.31 ENCNTR SCREEN MAMMOGRAM FOR MALIGNANT NE 08/28/2016 SOLIS PIRES MD Ot H83.03 LABYRINTHITIS, BILATERAL 08/28/2016 SOLIS PIRES MD Ot I10 ESSENTIAL (PRIMARY) HYPERTENSION 08/28/2016 SOLIS PIRES MD Ot I25.10 ATHSCL HEART DISEASE OF [place] CORONARY 08/28/2016 SOLIS PIRES MD Ot R42 DIZZINESS AND GIDDINESS 08/28/2016 SOLIS PIRES MD Ot Z79.82 MCC (CURRENT) USE OF ASPIRIN 08/28/2016 SOLIS PIRES MD Ot Z79.899 OTHER MCC (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 THERAPY 09/15/2016 ANURADHA SOTELO, JOVON Post Ot Z12.31 ENCNTR SCREEN MAMMOGRAM FOR MALIGNANT NE 10/01/2016 JOVON LING MD Ot Z12.31 ENCNTR SCREEN MAMMOGRAM FOR MALIGNANT NE 10/02/2016 ABDIEL SANDOVAL DOI Ot E86.0 DEHYDRATION 10/02/2016 ABDIEL SANDOVAL DOI Ot E87.6 HYPOKALEMIA 10/02/2016 DADA SANDOVAL DO Ot G40.909 EPILEPSY, UNSP, NOT INTRACTABLE, WITHOUT 10/02/2016 SANDOVAL DO DADA Ot I10 ESSENTIAL (PRIMARY) HYPERTENSION 10/02/2016 SANDOVALABDIEL LOZA DOI Ot I25.10 ATHSCL HEART DISEASE OF [place] CORONARY 10/02/2016 ABDIEL SANDOVAL DOI Ot K21.9 GASTRO-ESOPHAGEAL REFLUX DISEASE WITHOUT 10/02/2016 JAIME CRAFT DADA Ot R10.11 RIGHT UPPER QUADRANT PAIN 10/02/2016 ABDIEL SANDOVAL DOI Ot R42 DIZZINESS AND GIDDINESS 10/03/2016 Ot 305.1 TOBACCO USE DISORDER 10/03/2016 Ot 345.90 EPILEPSY UNSPEC W/O MENTION INTRACTABLE 10/03/2016 Ot 780.4 DIZZINESS AND GIDDINESS 10/03/2016 Ot 780.79 OTH MALAISE FATIGUE 10/03/2016 Ot V58.69 OTH MED,LT, CURRENT USE 10/05/2016 JOVON LING MD Ot R92.8 OTH ABN AND INCONCLUSIVE FINDINGS ON DX 10/05/2016 JOVON LING MD Ot R92.8 OTH ABN AND INCONCLUSIVE FINDINGS ON DX 10/06/2016 JOVON LING MD Ot R92.8 OTH ABN AND INCONCLUSIVE FINDINGS ON DX 10/06/2016 JOVON LING MD Ot R92.8 OTH ABN AND INCONCLUSIVE FINDINGS ON DX 11/02/2016 Ot 305.1 TOBACCO USE DISORDER 11/02/2016 Ot 345.90 EPILEPSY UNSPEC W/O MENTION INTRACTABLE 11/02/2016 Ot 780.4 DIZZINESS AND GIDDINESS 11/02/2016 Ot 780.79 OTH MALAISE FATIGUE 11/02/2016 Ot V58.69 OTH MED,LT, CURRENT USE 11/09/2016 ANURADHA SOTELO, JOVON Post Ot R92.8 OTH ABN AND INCONCLUSIVE FINDINGS ON DX 11/13/2016 ANURADHA SOTELO, JOVON Post Ot R92.8 OTH ABN AND INCONCLUSIVE FINDINGS ON DX 12/01/2016 ANURADHA SOTELO, JOVON Post Ot R92.8 OTH ABN AND INCONCLUSIVE FINDINGS ON DX 12/04/2016 INDIA BARROW MD Ot Z01.818 ENCOUNTER FOR OTHER PREPROCEDURAL EXAMIN 12/04/2016 INDIA BARROW MD Ot Z12.11 ENCOUNTER FOR SCREENING FOR MALIGNANT NE 12/16/2016 INDIA BARROW MD Ot E78.5 HYPERLIPIDEMIA, UNSPECIFIED 12/16/2016 INDIA BARROW MD Ot I10 ESSENTIAL (PRIMARY) HYPERTENSION 12/16/2016 INDIA BARROW MD Ot I25.10 ATHSCL HEART DISEASE OF [place] CORONARY 12/16/2016 INDIA BARROW MD Ot K57.30 DVRTCLOS OF LG INT W/O PERFORATION OR AB 12/16/2016 INDIA BARROW MD Ot K63.5 POLYP OF COLON 12/16/2016 INDIA BARROW MD Ot Z12.11 ENCOUNTER FOR SCREENING FOR MALIGNANT NE 12/16/2016 INDIA BARROW MD Ot Z79.899 OTHER PALEOLOGIST (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 THERAPY 12/29/2016 INDIA BARROW MD Ot E78.5 HYPERLIPIDEMIA, UNSPECIFIED 12/29/2016 INDIA BARROW MD Ot I10 ESSENTIAL (PRIMARY) HYPERTENSION 12/29/2016 INDIA BARROW MD Ot I25.10 ATHSCL HEART DISEASE OF [place] CORONARY 12/29/2016 INDIA BARROW MD Ot K57.30 DVRTCLOS OF LG INT W/O PERFORATION OR AB 12/29/2016 INDIA BARROW MD Ot K63.5 POLYP OF COLON 12/29/2016 INDIA BARROW MD Ot Z12.11 ENCOUNTER FOR SCREENING FOR MALIGNANT NE 12/29/2016 INDIA BARROW MD Ot Z79.899 OTHER PALEOLOGIST (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 THERAPY 01/06/2017 INDIA BARROW MD Ot E78.5 HYPERLIPIDEMIA, UNSPECIFIED 01/06/2017 INDIA BARROW MD Ot I10 ESSENTIAL (PRIMARY) HYPERTENSION 01/06/2017 INDIA BARROW MD Ot I25.10 ATHSCL HEART DISEASE OF [place] CORONARY 01/06/2017 INDIA BARROW MD Ot K57.30 DVRTCLOS OF LG INT W/O PERFORATION OR AB 01/06/2017 INDIA BARROW MD Ot K63.5 POLYP OF COLON 01/06/2017 INDIA BARROW MD Ot Z12.11 ENCOUNTER FOR SCREENING FOR MALIGNANT NE 01/06/2017 INDIA BARROW MD Ot Z79.899 OTHER PALEOLOGIST (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 THERAPY 01/13/2017 INDIA BARROW MD Ot E78.5 HYPERLIPIDEMIA, UNSPECIFIED 01/13/2017 INDIA BARROW MD Ot I10 ESSENTIAL (PRIMARY) HYPERTENSION 01/13/2017 INDIA BARROW MD Ot I25.10 ATHSCL HEART DISEASE OF [place] CORONARY 01/13/2017 INDIA BARROW MD Ot K57.30 DVRTCLOS OF LG INT W/O PERFORATION OR AB 01/13/2017 INDIA BARROW MD Ot K63.5 POLYP OF COLON 01/13/2017 INDIA BARROW MD Ot Z12.11 ENCOUNTER FOR SCREENING FOR MALIGNANT NE 01/13/2017 INDIA BARROW MD Ot Z79.899 OTHER PALEOLOGIST (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 THERAPY 01/25/2017 LOLLY SUTTON DIRECTOR OF HEAD START Ot R92.8 OTH ABN AND INCONCLUSIVE FINDINGS ON DX 01/27/2017 LOLYL SUTTON DIRECTOR OF HEAD START Ot R92.8 OTH ABN AND INCONCLUSIVE FINDINGS ON DX 02/01/2017 LOLLY SUTTON DIRECTOR OF HEAD START Ot R92.8 OTH ABN AND INCONCLUSIVE FINDINGS ON DX 02/02/2017 LOLLY SUTTON DIRECTOR OF HEAD START Ot R92.8 OTH ABN AND INCONCLUSIVE FINDINGS ON DX 03/01/2017 LOLLY SUTTON DIRECTOR OF HEAD START Ot R92.8 OTH ABN AND INCONCLUSIVE FINDINGS ON DX 03/02/2017 LOLLY SUTTON DIRECTOR OF HEAD START Ot R92.8 OTH ABN AND INCONCLUSIVE FINDINGS ON DX 03/03/2017 LOLLY SUTTON DIRECTOR OF HEAD START Ot R92.8 OTH ABN AND INCONCLUSIVE FINDINGS ON DX 04/06/2017 LOLLY SUTTON DIRECTOR OF HEAD START Ot M81.0 AGE-RELATED OSTEOPOROSIS W/O CURRENT PAT 04/06/2017 LOLLY SUTTON N DIRECTOR OF HEAD START Ot M81.0 AGE-RELATED OSTEOPOROSIS W/O CURRENT PAT 04/20/2017 LOLLY SUTTON DIRECTOR OF HEAD START Ot M81.0 AGE-RELATED OSTEOPOROSIS W/O CURRENT PAT 04/22/[address] DIRECTOR OF HEAD START Ot M11.261 OTHER CHONDROCALCINOSIS, RIGHT KNEE 04/22/2017 LOLLY SUTTON N DIRECTOR OF HEAD START Ot M11.262 OTHER CHONDROCALCINOSIS, LEFT KNEE 04/28/[address] DIRECTOR OF HEAD START Ot M11.261 OTHER CHONDROCALCINOSIS, RIGHT KNEE 04/28/[address] DIRECTOR OF HEAD START Ot M11.262 OTHER CHONDROCALCINOSIS, LEFT KNEE 05/14/[address] DIRECTOR OF HEAD START Ot M11.261 OTHER CHONDROCALCINOSIS, RIGHT KNEE 05/14/2017 LOLLY SUTTON N DIRECTOR OF HEAD START Ot M11.262 OTHER CHONDROCALCINOSIS, LEFT KNEE 05/19/[address] DIRECTOR OF HEAD START Ot M11.261 OTHER CHONDROCALCINOSIS, RIGHT KNEE 05/19/2017 LOLLY SUTTON N DIRECTOR OF HEAD START Ot M11.262 OTHER CHONDROCALCINOSIS, LEFT KNEE 05/24/[address] DIRECTOR OF HEAD START Ot M11.261 OTHER CHONDROCALCINOSIS, RIGHT KNEE 05/24/[address] DIRECTOR OF HEAD START Ot M11.262 OTHER CHONDROCALCINOSIS, LEFT KNEE 06/02/2017 MACY GLYNN MD Ot F03.90 UNSPECIFIED DEMENTIA WITHOUT BEHAVIORAL 06/02/2017 MACY GLYNN MD Ot F17.210 NICOTINE DEPENDENCE, CIGARETTES, UNCOMPL 06/02/2017 MACY GLYNN MD Ot F31.9 BIPOLAR DISORDER, UNSPECIFIED 06/02/2017 MACY GLYNN MD Ot G40.909 EPILEPSY, UNSP, NOT INTRACTABLE, WITHOUT 06/02/2017 MACY GLYNN MD Ot I10 ESSENTIAL (PRIMARY) HYPERTENSION 06/02/2017 MACY GLYNN MD Ot I25.10 ATHSCL HEART DISEASE OF [place] CORONARY 06/02/2017 MACY GLYNN MD Ot K21.9 GASTRO-ESOPHAGEAL REFLUX DISEASE WITHOUT 06/02/2017 MACY GLYNN MD, Ot S92.512A DISP FX OF PROXIMAL PHALANX OF LEFT LESS 06/02/2017 MACY GLYNN MD Ot W18.2XXA FALL IN (INTO) SHOWER OR EMPTY BATHTUB, 06/02/2017 MACY GLYNN MD Ot Y92.002 BATHRM OF [facility] SN 06/02/2017 MACY GLYNN MD, Ot Y93.E1 ACTIVITY, PERSONAL BATHING AND SHOWERING 06/02/2017 MACY GLYNN MD Ot Z79.82 PALEOLOGIST (CURRENT) USE OF ASPIRIN 06/02/2017 MACY GLYNN MD Ot Z87.828 PERSONAL HISTORY OF OTH (HEALED) PHYSICA 06/02/2017 MACY GLYNN MD Ot Z90.49 ACQUIRED ABSENCE OF OTHER SPECIFIED PART 06/08/2017 MACY GLYNN MD Ot F03.90 UNSPECIFIED DEMENTIA WITHOUT BEHAVIORAL 06/08/2017 MACY GLYNN MD Ot F17.210 NICOTINE DEPENDENCE, CIGARETTES, UNCOMPL 06/08/2017 MACY GLYNN MD Ot F31.9 BIPOLAR DISORDER, UNSPECIFIED 06/08/2017 MACY GLYNN MD Ot G40.909 EPILEPSY, UNSP, NOT INTRACTABLE, WITHOUT 06/08/2017 MACY GLYNN MD Ot I10 ESSENTIAL (PRIMARY) HYPERTENSION 06/08/2017 MACY GLYNN MD Ot I25.10 ATHSCL HEART DISEASE OF [place] CORONARY 06/08/2017 MACY GLYNN MD Ot K21.9 GASTRO-ESOPHAGEAL REFLUX DISEASE WITHOUT 06/08/2017 MACY GLYNN MD Ot S92.512A DISP FX OF PROXIMAL PHALANX OF LEFT LESS 06/08/2017 MACY GLYNN MD Ot W18.2XXA FALL IN (INTO) SHOWER OR EMPTY BATHTUB, 06/08/2017 MACY GLYNN MD Ot Y92.002 BATHRM OF [facility] SN 06/08/2017 MACY GLYNN MD, Ot Y93.E1 ACTIVITY, PERSONAL BATHING AND SHOWERING 06/08/2017 MACY GLYNN MD Ot Z79.82 MCC (CURRENT) USE OF ASPIRIN 06/08/2017 MACY GLYNN MD Ot Z87.828 PERSONAL HISTORY OF OTH (HEALED) PHYSICA 06/08/2017 MACY GLYNN MD Ot Z90.49 ACQUIRED ABSENCE OF OTHER SPECIFIED PART 07/07/2017 BELINDA VALDEZ MD Ot E04.2 NONTOXIC MULTINODULAR GOITER 07/27/2017 BELINDA VALDEZ MD Ot E04.2 NONTOXIC MULTINODULAR GOITER 07/30/2017 LOLLY SUTTON DIRECTOR OF HEAD START Ot R92.8 OTH ABN AND INCONCLUSIVE FINDINGS ON DX 08/04/2017 BELINDA VALDEZ MD, Ot E04.2 NONTOXIC MULTINODULAR GOITER 08/05/2017 LOLLY SUTTON DIRECTOR OF HEAD START Ot R92.8 OTH ABN AND INCONCLUSIVE FINDINGS ON DX 08/18/2017 BELINDA VALDEZ MD Ot E04.2 NONTOXIC MULTINODULAR GOITER 08/24/2017 THERESE FINN MD Ot E78.00 PURE HYPERCHOLESTEROLEMIA, UNSPECIFIED 08/24/2017 THERESE FINN MD Ot F03.90 UNSPECIFIED DEMENTIA WITHOUT BEHAVIORAL 08/24/2017 THERESE FINN MD Ot F31.9 BIPOLAR DISORDER, UNSPECIFIED 08/24/2017 THERESE FINN MD Ot G40.909 EPILEPSY, UNSP, NOT INTRACTABLE, WITHOUT 08/24/2017 THERESE FINN MD Ot I10 ESSENTIAL (PRIMARY) HYPERTENSION 08/24/2017 THERESE FINN MD Ot I25.10 ATHSCL HEART DISEASE OF [place] CORONARY 08/24/2017 THERESE FINN MD Ot J42 UNSPECIFIED CHRONIC BRONCHITIS 08/24/2017 THERESE FINN MD Ot K21.9 GASTRO-ESOPHAGEAL REFLUX DISEASE WITHOUT 08/24/2017 THERESE FINN MD Ot R07.89 OTHER CHEST PAIN 08/24/2017 THERESE FINN MD Ot R60.0 LOCALIZED EDEMA 08/24/2017 THERESE FINN MD Ot Z79.52 PALEOLOGIST (CURRENT) USE OF SYSTEMIC STER 08/24/2017 THERESE FINN MD Ot Z79.82 MCC (CURRENT) USE OF ASPIRIN 08/24/2017 THERESE FINN MD Ot Z87.820 PERSONAL HISTORY OF TRAUMATIC BRAIN INJU 08/24/2017 THERESE FINN MD Ot Z87.891 PERSONAL HISTORY OF NICOTINE DEPENDENCE 08/24/2017 THERESE FINN MD Ot Z88.0 ALLERGY STATUS TO PENICILLIN 08/24/2017 THERESE FINN MD Ot Z91.040 LATEX ALLERGY STATUS 08/26/2017 LOLLY SUTTON DIRECTOR OF HEAD START Ot R92.8 OTH ABN AND INCONCLUSIVE FINDINGS ON DX 09/06/2017 LOLLY SUTTON DIRECTOR OF HEAD START Ot M41.9 SCOLIOSIS, UNSPECIFIED 09/06/2017 LOLLY SUTTON DIRECTOR OF HEAD START Ot M47.816 SPONDYLOSIS W/O MYELOPATHY OR RADICULOPA 09/06/2017 LOLLY SUTTON DIRECTOR OF HEAD START Ot M79.605 PAIN IN LEFT LEG 09/06/2017 LOLLY SUTTON DIRECTOR OF HEAD START Ot R90.82 WHITE MATTER DISEASE, UNSPECIFIED 09/06/2017 LOLLY SUTTON DIRECTOR OF HEAD START Ot W19.XXXA UNSPECIFIED FALL, INITIAL ENCOUNTER 09/06/2017 LOLLY SUTTON DIRECTOR OF HEAD START Ot M41.9 SCOLIOSIS, UNSPECIFIED 09/06/2017 LOLLY SUTTON DIRECTOR OF HEAD START Ot M47.816 SPONDYLOSIS W/O MYELOPATHY OR RADICULOPA 09/06/2017 LOLLY SUTTON DIRECTOR OF HEAD START Ot M79.605 PAIN IN LEFT LEG 09/06/2017 LOLLY SUTTON DIRECTOR OF HEAD START Ot R90.82 WHITE MATTER DISEASE, UNSPECIFIED 09/06/2017 LOLLY SUTTON DIRECTOR OF HEAD START Ot W19.XXXA UNSPECIFIED FALL, INITIAL ENCOUNTER 09/16/2017 LOLLY SUTTON DIRECTOR OF HEAD START Ot R92.8 OTH ABN AND INCONCLUSIVE FINDINGS ON DX 09/22/2017 LOLLY SUTTON DIRECTOR OF HEAD START Ot M41.9 SCOLIOSIS, UNSPECIFIED 09/22/2017 LOLLY SUTTON DIRECTOR OF HEAD START Ot M47.816 SPONDYLOSIS W/O MYELOPATHY OR RADICULOPA 09/22/2017 LOLLY SUTTON DIRECTOR OF HEAD START Ot M79.605 PAIN IN LEFT LEG 09/22/2017 LOLLY SUTTON DIRECTOR OF HEAD START Ot R90.82 WHITE MATTER DISEASE, UNSPECIFIED 09/22/2017 LOLLY SUTTON DIRECTOR OF HEAD START Ot W19.XXXA UNSPECIFIED FALL, INITIAL ENCOUNTER 09/29/2017 LOLLY SUTTON DIRECTOR OF HEAD START Ot M41.9 SCOLIOSIS, UNSPECIFIED 09/29/[address] DIRECTOR OF HEAD START Ot M47.816 SPONDYLOSIS W/O MYELOPATHY OR RADICULOPA 09/29/[address] DIRECTOR OF HEAD START Ot M79.605 PAIN IN LEFT LEG 09/29/2017 LOLLY SUTTON DIRECTOR OF HEAD START Ot R90.82 WHITE MATTER DISEASE, UNSPECIFIED 09/29/2017 LOLLY SUTTON DIRECTOR OF HEAD START Ot W19.XXXA UNSPECIFIED FALL, INITIAL ENCOUNTER 11/11/2017 Ot 272.4 HYPERLIPIDEMIA NEC/NOS 11/11/2017 Ot 414.00 CORON ATHEROSCLER NOS TYPE VESSEL, NATIV 11/11/2017 Ot 427.89 CARDIAC DYSRHYTHMIAS NEC 11/11/2017 Ot 491.9 CHRONIC BRONCHITIS NOS 11/11/2017 FENECH DO, BELINDA S Ot 278.00 OBESITY, NOS 11/11/2017 FENECH DO, BELINDA S Ot 625.9 FEM GENITAL SYMPTOMS NOS 11/11/2017 FENAINSLEY DO, BELINDA S Ot V76.12 OTH SCREEN MAMMO-MALIGN NEOPLASM OF [place] 11/11/2017 BRANDIE SOTELO, INGA Oleary Ot 272.4 HYPERLIPIDEMIA NEC/NOS 11/11/2017 BRANDIE SOTELO, INGA Oleary Ot 305.1 TOBACCO USE DISORDER 11/11/2017 INGA DIEGO MD Ot 401.9 HYPERTENSION NOS 11/11/2017 INGA DIEGO MD Ot 414.00 CORON ATHEROSCLER NOS TYPE VESSEL, NATIV 11/11/2017 INGA DIEGO MD Ot 427.81 SINOATRIAL NODE DYSFUNCT 11/11/2017 INGA DIEGO MD Ot 530.81 ESOPHAGEAL REFLUX 11/11/2017 ROZ SOTELO FACC, ALI FACP CCDS Ot 789.30 ABDOMINAL/PELVIC SWELLING,MASS/LUMP UNSP 11/11/2017 FENECH DO, BELINDA S Ot Z12.31 ENCNTR SCREEN MAMMOGRAM FOR MALIGNANT NE 11/11/2017 PUSHPA SOTELO, INDIA Sims Ot R19.7 DIARRHEA, UNSPECIFIED 11/11/2017 PUSHPA SOTELO, INDIA Sims Ot Z01.818 ENCOUNTER FOR OTHER PREPROCEDURAL EXAMIN 11/11/2017 ANURADHA SOTELO, JOVON Post Ot Z12.31 ENCNTR SCREEN MAMMOGRAM FOR MALIGNANT NE 11/11/2017 ANURADHA SOTELO, JOVON Post Ot R92.8 OTH ABN AND INCONCLUSIVE FINDINGS ON DX 11/11/2017 INDIA BARROW MD Ot E78.5 HYPERLIPIDEMIA, UNSPECIFIED 11/11/2017 INDIA BARROW MD Ot I10 ESSENTIAL (PRIMARY) HYPERTENSION 11/11/2017 INDIA BARROW MD Ot I25.10 ATHSCL HEART DISEASE OF [place] CORONARY 11/11/2017 INDIA BARROW MD Ot K57.30 DVRTCLOS OF LG INT W/O PERFORATION OR AB 11/11/2017 INDIA BARROW MD Ot K63.5 POLYP OF COLON 11/11/2017 INDIA BARROW MD Ot Z12.11 ENCOUNTER FOR SCREENING FOR MALIGNANT NE 11/11/2017 INDIA BARROW MD Ot Z79.899 OTHER MCC (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 THERAPY 11/11/2017 INDIA BARROW MD Ot Z01.818 ENCOUNTER FOR OTHER PREPROCEDURAL EXAMIN 11/11/2017 INDIA BARROW MD Ot Z12.11 ENCOUNTER FOR SCREENING FOR MALIGNANT NE 11/11/2017 LOLLY SUTTON DIRECTOR OF HEAD START Ot R92.8 OTH ABN AND INCONCLUSIVE FINDINGS ON DX 11/11/2017 LOLLY SUTTON DIRECTOR OF HEAD START Ot M11.261 OTHER CHONDROCALCINOSIS, RIGHT KNEE 11/11/2017 LOLLY SUTTON DIRECTOR OF HEAD START Ot M11.262 OTHER CHONDROCALCINOSIS, LEFT KNEE 11/11/2017 COURTNEY SOTELO, BELINDA Gomez Ot E04.2 NONTOXIC MULTINODULAR GOITER 11/11/2017 LOLLY SUTTON DIRECTOR OF HEAD START Ot R92.8 OTH ABN AND INCONCLUSIVE FINDINGS ON DX 11/11/2017 LOLLY SUTTON DIRECTOR OF HEAD START Ot M41.9 SCOLIOSIS, UNSPECIFIED 11/11/2017 LOLLY SUTTON DIRECTOR OF HEAD START Ot M47.816 SPONDYLOSIS W/O MYELOPATHY OR RADICULOPA 11/11/2017 LOLLY SUTTON DIRECTOR OF HEAD START Ot M79.605 PAIN IN LEFT LEG 11/11/2017 LOLLY SUTTON DIRECTOR OF HEAD START Ot R90.82 WHITE MATTER DISEASE, UNSPECIFIED 11/11/2017 LOLLY SUTTON DIRECTOR OF HEAD START Ot W19.XXXA UNSPECIFIED FALL, INITIAL ENCOUNTER 11/15/2017 JUDY BRUNO COIL WINDER REPAIR Ot E04.2 NONTOXIC MULTINODULAR GOITER Procedures Code Description Performed By Performed On 37.22 10/06/2010 88.53 10/06/2010 88.56 10/06/2010 96353 ROUTINE VENIPUNCTURE 05/03/2012 89960 CBC 05/03/2012 23434 LIPID PANEL 05/03/2012 45171 CMP 05/03/2012 [id number] GFR CALC (RESULT ONLY) 05/03/2012 22285 TOPIRAMATE (TOPAMAX) 05/05/2012 40875 LEVETIRACETAM (KEPPRA) LEVEL 05/06/2012 Cardiolog Sage Tuttel 11/15/2012 57198 MAMMOGRAM, SCREENING 03/30/2013 78330 CBC 03/30/2013 Obstetric FenBelinda doe 05/02/2013 Results Test Result Range Complete blood count (CBC) with automated white blood cell (WBC) differential - 06/10/16 21:27 Blood leukocytes automated count (number/volume) 5.9 10*3/uL 4.3-11.0 Blood erythrocytes automated count (number/volume) 4.20 10*6/uL 4.35-5.85 Venous blood hemoglobin measurement (mass/volume) 13.7 g/dL 11.5-16.0 Blood hematocrit (volume fraction) 42 % 35-52 Automated erythrocyte mean corpuscular volume 100 [foz_us] 80-99 Automated erythrocyte mean corpuscular hemoglobin (mass per erythrocyte) 33 pg 25-34 Automated erythrocyte mean corpuscular hemoglobin concentration measurement ( mass/volume) 33 g/dL 32-36 Automated erythrocyte distribution width ratio 12.6 % 10.0-14.5 Automated blood platelet count (count/volume) 198 10*3/uL 130-400 Automated blood platelet mean volume measurement 9.7 [foz_us] 7.4-10.4 Automated blood neutrophils/100 leukocytes 57 % 42-75 Automated blood lymphocytes/100 leukocytes 24 % 12-44 Blood monocytes/100 leukocytes 15 % 0-12 Automated blood eosinophils/100 leukocytes 3 % 0-10 Automated blood basophils/100 leukocytes 1 % 0-10 Blood neutrophils automated count (number/volume) 3.3 10*3 1.8-7.8 Blood lymphocytes automated count (number/volume) 1.4 10*3 1.0-4.0 Blood monocytes automated count (number/volume) 0.9 10*3 0.0-1.0 Automated eosinophil count 0.2 10*3/uL 0.0-0.3 Automated blood basophil count (count/volume) 0.0 10*3/uL 0.0-0.1 Comprehensive metabolic panel - 06/10/16 21:27 Serum or plasma sodium measurement (moles/volume) 142 mmol/L 135-145 Serum or plasma potassium measurement (moles/volume) 3.5 mmol/L 3.6-5.0 Serum or plasma chloride measurement (moles/volume) 112 mmol/L 98-107 Carbon dioxide 20 mmol/L 21-32 Serum or plasma anion gap determination (moles/volume) 10 mmol/L 5-14 Serum or plasma urea nitrogen measurement (mass/volume) 18 mg/dL 7-18 Serum or plasma creatinine measurement (mass/volume) 1.12 mg/dL 0.60-1.30 Serum or plasma urea nitrogen/creatinine mass ratio 16 NRG Serum or plasma creatinine measurement with calculation of estimated glomerular filtration rate 49 NRG Serum or plasma glucose measurement (mass/volume) 97 mg/dL 70-105 Serum or plasma calcium measurement (mass/volume) 9.5 mg/dL 8.5-10.1 Serum or plasma total bilirubin measurement (mass/volume) 0.6 mg/dL 0.1-1.0 Serum or plasma alkaline phosphatase measurement (enzymatic activity/volume) 92 U/L 40-136 Serum or plasma aspartate aminotransferase measurement (enzymatic activity/ volume) 32 U/L 5-34 Serum or plasma alanine aminotransferase measurement (enzymatic activity/volume ) 26 U/L 0-55 Serum or plasma protein measurement (mass/volume) 6.7 g/dL 6.4-8.2 Serum or plasma albumin measurement (mass/volume) 3.9 g/dL 3.2-4.5 Serum or plasma troponin i.cardiac measurement (mass/volume) - 06/10/16 21:27 Serum or plasma troponin i.cardiac measurement (mass/volume) < ng/ mL <0.30 THYROID STIMULATING HORMONE - 06/10/16 21:27 THYROID STIMULATING HORMONE 0.42 u[iU]/mL 0.35-4.94 Serum or plasma thyroxine (T4) free measurement (mass/volume) - 06/10/16 21:27 Serum or plasma thyroxine (T4) free measurement (mass/volume) 0.94 ng/dL 0.70-1.48 Complete urinalysis with reflex to culture - 06/10/16 22:35 Urine color determination YELLOW NRG Urine clarity determination CLEAR NRG Urine pH measurement by test strip 7 5-9 Specific gravity of urine by test strip 1.010 1.016- 1.022 Urine protein assay by test strip, semi-quantitative NEGATIVE NEGATIVE Urine glucose detection by automated test strip NEGATIVE NEGATIVE Erythrocytes detection in urine sediment by light microscopy NEGATIVE NEGATIVE Urine ketones detection by automated test strip NEGATIVE NEGATIVE Urine nitrite detection by test strip NEGATIVE NEGATIVE Urine total bilirubin detection by test strip NEGATIVE NEGATIVE Urine urobilinogen measurement by automated test strip (mass/volume) NORMAL NORMAL Urine leukocyte esterase detection by dipstick NEGATIVE NEGATIVE Automated urine sediment erythrocyte count by microscopy (number/high power field) NONE NRG Automated urine sediment leukocyte count by microscopy (number/high power field ) NONE NRG Bacteria detection in urine sediment by light microscopy NONE NRG Crystals detection in urine sediment by light microscopy PRESENT NRG Casts detection in urine sediment by light microscopy NONE NRG Mucus detection in urine sediment by light microscopy NEGATIVE NRG Complete urinalysis with reflex to culture NO NRG Amorphous sediment detection in urine sediment by light microscopy MOD JOSE URATES NRG COMPLETE BLOOD COUNT - 06/18/16 18:22 Platelet 165 10^3u 142-424 MPV 10.8 FL 9.4-12.4 [place] # 0.84 10^3u 0.0-1.0 RBC 4.01 10^6u 4.04-6.13 [place] % 14.7 % 0-12 RDW 12.8 % 11.6-14.8 Neut # 3.13 10^3u 2.0-6.9 Neut % 54.6 % 37-80 WBC 5.73 10^3u 4.60-10.20 MCV 103.2 FL 80.0-97.0 Baso # 0.02 10^3u 0.0-0.1 Baso % 0.3 % 0-2 Eos # 0.28 10^3u 0-0.7 Eos % 4.9 % 0-7 Lymph % 25.5 % 10-50 MCHC 32.1 G/DL 31.8-35.4 MCH 33.2 PG 27.0-31.2 Lymph # 1.46 10^3u 0.6-3.4 HGB 13.3 G/DL 12.2-18.1 HCT 41.4 % 37.7-53.7 CMP - 06/18/16 21:29 Osmo Calculated 278 MOSM 261-280 Sodium 144 MMOLL 136-145 T. Protein 6.5 G/DL 6.4-8.3 Potassium 3.7 MMOLL 3.5-5.1 T Bili 0.5 MG/DL 0.2-1.2 Calcium 8.7 MG/DL 8.4-10.2 BUN 15 MG/DL 7-26 Chloride 110 MMOLL 98-107 AST 34 U/L 5-34 ALT 22 U/L 0-55 Albumin 3.7 G/DL 3.5-5.0 A/G Ratio 1.3 RATIO 1.2-2.2 Bun/Creat 12 RATIO 7-25 Alk Phos 90 U/L 40-150 CO2 26 MMOLL 22-29 Glucose 91 MG/DL 70-99 Globulin 2.8 G/DL 2.4-3.5 Creatinine 1.3 MG/DL 0.6-1.3 TSH - 06/18/16 21:31 TSH 0.77 UIUML 0.35-4.94 Free T4 - 06/18/16 21:31 Free T4 0.90 NG/DL 0.70-1.48 Urinalysis - 06/18/16 23:43 Glucose Negative Negative Leukocyte Trace Negative Nitrite Negative Negative pH 7.0 5.5-7.5 Urine Appearance Clear Clear Protein Negative Negative Ketones Negative Negative Urobilinogen 0.2 0.2-1.0 Urine RBC N0-2 Specific Novelty 1.010 1.010-1.020 Urine WBC N3-5 Blood Trace Negative Color Yellow Yellow Squamous Epithelial Cells Trace Bilirubin Negative Negative Site VOID EKG - 06/22/16 04:26 EKG SMR COMPLETE BLOOD COUNT - 06/23/16 05:54 Platelet 153 10^3u 142-424 MPV 10.6 FL 9.4-12.4 [place] # 0.97 10^3u 0.0-1.0 RBC 3.81 10^6u 4.04-6.13 [place] % 11.8 % 0-12 RDW 12.5 % 11.6-14.8 Neut # 5.85 10^3u 2.0-6.9 Neut % 71.1 % 37-80 WBC 8.23 10^3u 4.60-10.20 MCV 99.2 FL 80.0-97.0 Baso # 0.02 10^3u 0.0-0.1 Baso % 0.2 % 0-2 Eos # 0.18 10^3u 0-0.7 Eos % 2.2 % 0-7 Lymph % 14.7 % 10-50 MCHC 34.1 G/DL 31.8-35.4 MCH 33.9 PG 27.0-31.2 Lymph # 1.21 10^3u 0.6-3.4 HGB 12.9 G/DL 12.2-18.1 HCT 37.8 % 37.7-53.7 BMP - 06/23/16 06:40 Osmo Calculated 278 MOSM 261-280 Sodium 144 MMOLL 136-145 Potassium 3.6 MMOLL 3.5-5.1 Calcium 9.0 MG/DL 8.4-10.2 BUN 11 MG/DL 7-26 Chloride 113 MMOLL 98-107 Anion GAP 6 MMOLL 5-16 Bun/Creat 9 RATIO 7-25 CO2 25 MMOLL 22-29 Glucose 104 MG/DL 70-99 Creatinine 1.2 MG/DL 0.6-1.3 BNP - 06/23/16 06:40 BNP 67.4 PG/ML <=100 Occult Blood Set - 06/26/16 16:12 Occult Bld 1 NEG Negative Occult Bld 2nd NEG Negative Occult Bld 3rd NEG Negative COMPLETE BLOOD COUNT - 06/25/16 12:01 Platelet 160 10^3u 142-424 MPV 10.1 FL 9.4-12.4 [place] # 0.65 10^3u 0.0-1.0 RBC 3.89 10^6u 4.04-6.13 [place] % 13.3 % 0-12 RDW 12.6 % 11.6-14.8 Neut # 2.93 10^3u 2.0-6.9 Neut % 60.2 % 37-80 WBC 4.87 10^3u 4.60-10.20 MCV 102.8 FL 80.0-97.0 Baso # 0.03 10^3u 0.0-0.1 Baso % 0.6 % 0-2 Eos # 0.19 10^3u 0-0.7 Eos % 3.9 % 0-7 Lymph % 22.0 % 10-50 MCHC 32.3 G/DL 31.8-35.4 MCH 33.2 PG 27.0-31.2 Lymph # 1.07 10^3u 0.6-3.4 HGB 12.9 G/DL 12.2-18.1 HCT 40.0 % 37.7-53.7 CKMB - 06/25/16 12:17 CKMB 2.1 NG/ML <=6 Troponin I - 06/25/16 12:17 Troponin I 0.02 NG/ML <=0.20 CPK - 06/25/16 12:17 CPK 101 U/L 30-170 BNP - 06/25/16 12:17 BNP 60.2 PG/ML <=100 CMP - 06/25/16 12:28 Osmo Calculated 279 MOSM 261-280 Sodium 145 MMOLL 136-145 T. Protein 6.5 G/DL 6.4-8.3 Potassium 3.8 MMOLL 3.5-5.1 T Bili 0.3 MG/DL 0.2-1.2 Calcium 9.3 MG/DL 8.4-10.2 BUN 11 MG/DL 7-26 Chloride 112 MMOLL 98-107 AST 56 U/L 5-34 ALT 59 U/L 0-55 Albumin 3.4 G/DL 3.5-5.0 A/G Ratio 1.1 RATIO 1.2-2.2 Bun/Creat 9 RATIO 7-25 Alk Phos 103 U/L 40-150 CO2 27 MMOLL 22-29 Glucose 101 MG/DL 70-99 Globulin 3.1 G/DL 2.4-3.5 Creatinine 1.2 MG/DL 0.6-1.3 GI Panel - Bio Fire - 06/27/16 07:22 Campylobacter ND Not Detected Clostridium difficile tox A/B ND Not Detected Plesiomonas shigelloides ND Not Detected Salmonella ND Not Detected Vibrio ND Not Detected Vibrio cholerae ND Not Detected Yersinia enterocolitica ND Not Detected Source UNFORMED Enteroaggregative E. coli ND Not Detected Enteropathogenic E. coli ND Not Detected Enterotoxigenic E. coli ND Not Detected Shiga-like toxin-prod. E coli ND Not Detected Shigella/Enteroinvasive E.coli ND Not Detected Cryptosporidium ND Not Detected Cyclospora cayetanensis ND Not Detected Entamoeba histolytica ND Not Detected Giardia lamblia ND Not Detected Adenovirus F 40/41 ND Not Detected Astrovirus ND Not Detected Norovirus GI/GII ND Not Detected Rotavirus A ND Not Detected Sapovirus ND Not Detected E coli 0157 ND Not Detected Strep A Screen - 06/27/16 09:09 Strep A Screen NEG Negative Respiratory Panel-[facility] - 06/27/16 11:42 Adeno ND Not Detected Adeno2 ND Not Detected Coronavirus 229E ND Not Detected Coronavirus HKU1 ND Not Detected Coronavirus NL63 ND Not Detected Coronavirus OC43 ND Not Detected Human Metapneumovirus ND Not Detected Entero 1 ND Not Detected Entero 2 ND Not Detected Human Rhinovirus 1 ND Not Detected Human Rhinovirus 2 ND Not Detected Human Rhinovirus 3 ND Not Detected Human Rhinovirus 4 ND Not Detected [id number] ND Not Detected FluA-H1-ford ND Not Detected FluA-H3 ND Not Detected FluA-pan1 ND Not Detected FluA-pan2 ND Not Detected Influenza B ND Not Detected Parainfluenza Virus 1 ND Not Detected Parainfluenza Virus 2 ND Not Detected Parainfluenza Virus 3 ND Not Detected Parainfluenza Virus 4 ND Not Detected Respiratory Syncytial Virus ND Not Detected Bordetella pertussis ND Not Detected Chlamydophilia pneumoniae ND Not Detected Mycoplasma pneumoniae ND Not Detected COMPLETE BLOOD COUNT - 07/01/16 05:58 Platelet 123 10^3u 142-424 MPV 10.8 FL 9.4-12.4 [place] # 0.84 10^3u 0.0-1.0 RBC 4.05 10^6u 4.04-6.13 [place] % 15.9 % 0-12 RDW 13.0 % 11.6-14.8 Neut # 2.97 10^3u 2.0-6.9 Neut % 56.1 % 37-80 WBC 5.29 10^3u 4.60-10.20 MCV 103.0 FL 80.0-97.0 Baso # 0.03 10^3u 0.0-0.1 Baso % 0.6 % 0-2 Eos # 0.38 10^3u 0-0.7 Eos % 7.2 % 0-7 Lymph % 20.2 % 10-50 MCHC 32.1 G/DL 31.8-35.4 MCH 33.1 PG 27.0-31.2 Lymph # 1.07 10^3u 0.6-3.4 HGB 13.4 G/DL 12.2-18.1 HCT 41.7 % 37.7-53.7 CMP - 07/01/16 06:08 Osmo Calculated 279 MOSM 261-280 Sodium 144 MMOLL 136-145 T. Protein 6.5 G/DL 6.4-8.3 Potassium 3.9 MMOLL 3.5-5.1 T Bili 0.3 MG/DL 0.2-1.2 Calcium 8.9 MG/DL 8.4-10.2 BUN 14 MG/DL 7-26 Chloride 115 MMOLL 98-107 AST 34 U/L 5-34 ALT 33 U/L 0-55 Albumin 3.3 G/DL 3.5-5.0 A/G Ratio 1.0 RATIO 1.2-2.2 Bun/Creat 12 RATIO 7-25 Alk Phos 113 U/L 40-150 CO2 19 MMOLL 22-29 Glucose 106 MG/DL 70-99 Globulin 3.2 G/DL 2.4-3.5 Creatinine 1.2 MG/DL 0.6-1.3 EKG - 07/01/16 10:27 EKG SMR Complete urinalysis with reflex to culture - 08/03/16 09:58 Urine color determination YELLOW NRG Urine clarity determination CLEAR NRG Urine pH measurement by test strip 7 5-9 Specific gravity of urine by test strip 1.010 1.016- 1.022 Urine protein assay by test strip, semi-quantitative NEGATIVE NEGATIVE Urine glucose detection by automated test strip NEGATIVE NEGATIVE Erythrocytes detection in urine sediment by light microscopy NEGATIVE NEGATIVE Urine ketones detection by automated test strip NEGATIVE NEGATIVE Urine nitrite detection by test strip NEGATIVE NEGATIVE Urine total bilirubin detection by test strip NEGATIVE NEGATIVE Urine urobilinogen measurement by automated test strip (mass/volume) NORMAL NORMAL Urine leukocyte esterase detection by dipstick NEGATIVE NEGATIVE Automated urine sediment erythrocyte count by microscopy (number/high power field) NONE NRG Automated urine sediment leukocyte count by microscopy (number/high power field ) NONE NRG Bacteria detection in urine sediment by light microscopy NEGATIVE NRG Squamous epithelial cells detection in urine sediment by light microscopy RARE NRG Crystals detection in urine sediment by light microscopy NONE NRG Casts detection in urine sediment by light microscopy NONE NRG Mucus detection in urine sediment by light microscopy NEGATIVE NRG Complete urinalysis with reflex to culture NO NRG Complete blood count (CBC) with automated white blood cell (WBC) differential - 08/26/16 20:30 Blood leukocytes automated count (number/volume) 6.6 10*3/uL 4.3-11.0 Blood erythrocytes automated count (number/volume) 3.71 10*6/uL 4.35-5.85 Venous blood hemoglobin measurement (mass/volume) 12.3 g/dL 11.5-16.0 Blood hematocrit (volume fraction) 37 % 35-52 Automated erythrocyte mean corpuscular volume 100 [foz_us] 80-99 Automated erythrocyte mean corpuscular hemoglobin (mass per erythrocyte) 33 pg 25-34 Automated erythrocyte mean corpuscular hemoglobin concentration measurement ( mass/volume) 33 g/dL 32-36 Automated erythrocyte distribution width ratio 12.6 % 10.0-14.5 Automated blood platelet count (count/volume) 162 10*3/uL 130-400 Automated blood platelet mean volume measurement 9.8 [foz_us] 7.4-10.4 Automated blood neutrophils/100 leukocytes 66 % 42-75 Automated blood lymphocytes/100 leukocytes 16 % 12-44 Blood monocytes/100 leukocytes 13 % 0-12 Automated blood eosinophils/100 leukocytes 5 % 0-10 Automated blood basophils/100 leukocytes 1 % 0-10 Blood neutrophils automated count (number/volume) 4.3 10*3 1.8-7.8 Blood lymphocytes automated count (number/volume) 1.1 10*3 1.0-4.0 Blood monocytes automated count (number/volume) 0.9 10*3 0.0-1.0 Automated eosinophil count 0.3 10*3/uL 0.0-0.3 Automated blood basophil count (count/volume) 0.0 10*3/uL 0.0-0.1 Comprehensive metabolic panel - 08/26/16 20:30 Serum or plasma sodium measurement (moles/volume) 143 mmol/L 135-145 Serum or plasma potassium measurement (moles/volume) 3.7 mmol/L 3.6-5.0 Serum or plasma chloride measurement (moles/volume) 110 mmol/L 98-107 Carbon dioxide 22 mmol/L 21-32 Serum or plasma anion gap determination (moles/volume) 11 mmol/L 5-14 Serum or plasma urea nitrogen measurement (mass/volume) 16 mg/dL 7-18 Serum or plasma creatinine measurement (mass/volume) 1.12 mg/dL 0.60-1.30 Serum or plasma urea nitrogen/creatinine mass ratio 14 NRG Serum or plasma creatinine measurement with calculation of estimated glomerular filtration rate 49 NRG Serum or plasma glucose measurement (mass/volume) 114 mg/dL 70-105 Serum or plasma calcium measurement (mass/volume) 8.5 mg/dL 8.5-10.1 Serum or plasma total bilirubin measurement (mass/volume) 0.4 mg/dL 0.1-1.0 Serum or plasma alkaline phosphatase measurement (enzymatic activity/volume) 104 U/L 40-136 Serum or plasma aspartate aminotransferase measurement (enzymatic activity/ volume) 40 U/L 5-34 Serum or plasma alanine aminotransferase measurement (enzymatic activity/volume ) 27 U/L 0-55 Serum or plasma protein measurement (mass/volume) 6.3 g/dL 6.4-8.2 Serum or plasma albumin measurement (mass/volume) 3.5 g/dL 3.2-4.5 Lipase - 08/26/16 20:30 Lipase 29 U/L 8-78 Serum or plasma troponin i.cardiac measurement (mass/volume) - 08/26/16 20:30 Serum or plasma troponin i.cardiac measurement (mass/volume) < ng/ mL <0.30 Serum or plasma lithium measurement (moles/volume) - 08/26/16 20:30 BNP level 54.4 pg/mL <100.0 Complete urinalysis with reflex to culture - 08/26/16 21:39 Urine color determination YELLOW NRG Urine clarity determination CLEAR NRG Urine pH measurement by test strip 8 5-9 Specific gravity of urine by test strip 1.010 1.016- 1.022 Urine protein assay by test strip, semi-quantitative NEGATIVE NEGATIVE Urine glucose detection by automated test strip NEGATIVE NEGATIVE Erythrocytes detection in urine sediment by light microscopy NEGATIVE NEGATIVE Urine ketones detection by automated test strip NEGATIVE NEGATIVE Urine nitrite detection by test strip NEGATIVE NEGATIVE Urine total bilirubin detection by test strip NEGATIVE NEGATIVE Urine urobilinogen measurement by automated test strip (mass/volume) NORMAL NORMAL Urine leukocyte esterase detection by dipstick NEGATIVE NEGATIVE Automated urine sediment erythrocyte count by microscopy (number/high power field) NONE NRG Automated urine sediment leukocyte count by microscopy (number/high power field ) [HPF] NRG Bacteria detection in urine sediment by light microscopy TRACE NRG Squamous epithelial cells detection in urine sediment by light microscopy 0-2 NRG Crystals detection in urine sediment by light microscopy PRESENT NRG Casts detection in urine sediment by light microscopy NONE NRG Mucus detection in urine sediment by light microscopy NEGATIVE NRG Complete urinalysis with reflex to culture NO NRG Amorphous sediment detection in urine sediment by light microscopy LARGE JOSE PHOSPHATE NRG Complete urinalysis with reflex to culture - 09/30/16 11:20 Urine color determination YELLOW NRG Urine clarity determination CLEAR NRG Urine pH measurement by test strip 8 5-9 Specific gravity of urine by test strip 1.010 1.016- 1.022 Urine protein assay by test strip, semi-quantitative NEGATIVE NEGATIVE Urine glucose detection by automated test strip NEGATIVE NEGATIVE Erythrocytes detection in urine sediment by light microscopy NEGATIVE NEGATIVE Urine ketones detection by automated test strip NEGATIVE NEGATIVE Urine nitrite detection by test strip NEGATIVE NEGATIVE Urine total bilirubin detection by test strip NEGATIVE NEGATIVE Urine urobilinogen measurement by automated test strip (mass/volume) NORMAL NORMAL Urine leukocyte esterase detection by dipstick NEGATIVE NEGATIVE Automated urine sediment erythrocyte count by microscopy (number/high power field) NONE NRG Automated urine sediment leukocyte count by microscopy (number/high power field ) NONE NRG Bacteria detection in urine sediment by light microscopy NONE NRG Crystals detection in urine sediment by light microscopy PRESENT NRG Casts detection in urine sediment by light microscopy NONE NRG Mucus detection in urine sediment by light microscopy NEGATIVE NRG Complete urinalysis with reflex to culture NO NRG Amorphous sediment detection in urine sediment by light microscopy MOD JOSE PHOSPHATE NRG Complete blood count (CBC) with automated white blood cell (WBC) differential - 09/30/16 21:31 Blood leukocytes automated count (number/volume) 6.7 10*3/uL 4.3-11.0 Blood erythrocytes automated count (number/volume) 4.28 10*6/uL 4.35-5.85 Venous blood hemoglobin measurement (mass/volume) 14.1 g/dL 11.5-16.0 Blood hematocrit (volume fraction) 41 % 35-52 Automated erythrocyte mean corpuscular volume 97 [foz_us] 80-99 Automated erythrocyte mean corpuscular hemoglobin (mass per erythrocyte) 33 pg 25-34 Automated erythrocyte mean corpuscular hemoglobin concentration measurement ( mass/volume) 34 g/dL 32-36 Automated erythrocyte distribution width ratio 11.9 % 10.0-14.5 Automated blood platelet count (count/volume) 167 10*3/uL 130-400 Automated blood platelet mean volume measurement 9.9 [foz_us] 7.4-10.4 Automated blood neutrophils/100 leukocytes 64 % 42-75 Automated blood lymphocytes/100 leukocytes 17 % 12-44 Blood monocytes/100 leukocytes 16 % 0-12 Automated blood eosinophils/100 leukocytes 3 % 0-10 Automated blood basophils/100 leukocytes 0 % 0-10 Blood neutrophils automated count (number/volume) 4.3 10*3 1.8-7.8 Blood lymphocytes automated count (number/volume) 1.1 10*3 1.0-4.0 Blood monocytes automated count (number/volume) 1.1 10*3 0.0-1.0 Automated eosinophil count 0.2 10*3/uL 0.0-0.3 Automated blood basophil count (count/volume) 0.0 10*3/uL 0.0-0.1 PT panel in platelet poor plasma by coagulation assay - 09/30/16 21:31 Prothrombin time (PT) in platelet poor plasma by coagulation assay 12.5 s 12.2-14.7 INR in platelet poor plasma or blood by coagulation assay 1.0 0.8-1.4 Activated partial thromboplastin time (aPTT) in platelet poor plasma bycoagulation assay - 09/30/16 21:31 Activated partial thromboplastin time (aPTT) in platelet poor plasma bycoagulation assay 29 s 24-35 Comprehensive metabolic panel - 09/30/16 21:31 Serum or plasma sodium measurement (moles/volume) 138 mmol/L 135-145 Serum or plasma potassium measurement (moles/volume) 2.1 mmol/L 3.6-5.0 Serum or plasma chloride measurement (moles/volume) 93 mmol/L 98-107 Carbon dioxide 32 mmol/L 21-32 Serum or plasma anion gap determination (moles/volume) 13 mmol/L 5-14 Serum or plasma urea nitrogen measurement (mass/volume) 22 mg/dL 7-18 Serum or plasma creatinine measurement (mass/volume) 1.45 mg/dL 0.60-1.30 Serum or plasma urea nitrogen/creatinine mass ratio 15 NRG Serum or plasma creatinine measurement with calculation of estimated glomerular filtration rate 36 NRG Serum or plasma glucose measurement (mass/volume) 116 mg/dL 70-105 Serum or plasma calcium measurement (mass/volume) 9.6 mg/dL 8.5-10.1 Serum or plasma total bilirubin measurement (mass/volume) 0.4 mg/dL 0.1-1.0 Serum or plasma alkaline phosphatase measurement (enzymatic activity/volume) 108 U/L 40-136 Serum or plasma aspartate aminotransferase measurement (enzymatic activity/ volume) 39 U/L 5-34 Serum or plasma alanine aminotransferase measurement (enzymatic activity/volume ) 26 U/L 0-55 Serum or plasma protein measurement (mass/volume) 7.0 g/dL 6.4-8.2 Serum or plasma albumin measurement (mass/volume) 4.0 g/dL 3.2-4.5 Magnesium - 09/30/16 21:31 Magnesium 2.4 mg/dL 1.8-2.4 Serum or plasma troponin i.cardiac measurement (mass/volume) - 09/30/16 21:31 Serum or plasma troponin i.cardiac measurement (mass/volume) < ng/ mL <0.30 Serum or plasma amylase measurement (enzymatic activity/volume) - 09/30/16 21: 31 Serum or plasma amylase measurement (enzymatic activity/volume) 71 U /L 25-125 Lipase - 09/30/16 21:31 Lipase 29 U/L 8-78 Complete blood count (CBC) with automated white blood cell (WBC) differential - 10/01/16 04:40 Blood leukocytes automated count (number/volume) 6.2 10*3/uL 4.3-11.0 Blood erythrocytes automated count (number/volume) 4.00 10*6/uL 4.35-5.85 Venous blood hemoglobin measurement (mass/volume) 13.0 g/dL 11.5-16.0 Blood hematocrit (volume fraction) 39 % 35-52 Automated erythrocyte mean corpuscular volume 97 [foz_us] 80-99 Automated erythrocyte mean corpuscular hemoglobin (mass per erythrocyte) 33 pg 25-34 Automated erythrocyte mean corpuscular hemoglobin concentration measurement ( mass/volume) 34 g/dL 32-36 Automated erythrocyte distribution width ratio 11.7 % 10.0-14.5 Automated blood platelet count (count/volume) 134 10*3/uL 130-400 Automated blood platelet mean volume measurement 11.4 [foz_us] 7.4-10.4 Automated blood neutrophils/100 leukocytes 46 % 42-75 Automated blood lymphocytes/100 leukocytes 28 % 12-44 Blood monocytes/100 leukocytes 21 % 0-12 Automated blood eosinophils/100 leukocytes 5 % 0-10 Automated blood basophils/100 leukocytes 1 % 0-10 Blood neutrophils automated count (number/volume) 2.9 10*3 1.8-7.8 Blood lymphocytes automated count (number/volume) 1.7 10*3 1.0-4.0 Blood monocytes automated count (number/volume) 1.3 10*3 0.0-1.0 Automated eosinophil count 0.3 10*3/uL 0.0-0.3 Automated blood basophil count (count/volume) 0.0 10*3/uL 0.0-0.1 Comprehensive metabolic panel - 10/01/16 04:40 Serum or plasma sodium measurement (moles/volume) 135 mmol/L 135-145 Serum or plasma potassium measurement (moles/volume) 2.8 mmol/L 3.6-5.0 Serum or plasma chloride measurement (moles/volume) 95 mmol/L 98-107 Carbon dioxide 31 mmol/L 21-32 Serum or plasma anion gap determination (moles/volume) 9 mmol/L 5-14 Serum or plasma urea nitrogen measurement (mass/volume) 20 mg/dL 7-18 Serum or plasma creatinine measurement (mass/volume) 1.37 mg/dL 0.60-1.30 Serum or plasma urea nitrogen/creatinine mass ratio 15 NRG Serum or plasma creatinine measurement with calculation of estimated glomerular filtration rate 39 NRG Serum or plasma glucose measurement (mass/volume) 106 mg/dL 70-105 Serum or plasma calcium measurement (mass/volume) 8.7 mg/dL 8.5-10.1 Serum or plasma total bilirubin measurement (mass/volume) 0.4 mg/dL 0.1-1.0 Serum or plasma alkaline phosphatase measurement (enzymatic activity/volume) 93 U/L 40-136 Serum or plasma aspartate aminotransferase measurement (enzymatic activity/ volume) 35 U/L 5-34 Serum or plasma alanine aminotransferase measurement (enzymatic activity/volume ) 22 U/L 0-55 Serum or plasma protein measurement (mass/volume) 6.2 g/dL 6.4-8.2 Serum or plasma albumin measurement (mass/volume) 3.5 g/dL 3.2-4.5 Serum or plasma amylase measurement (enzymatic activity/volume) - 10/01/16 04: 40 Serum or plasma amylase measurement (enzymatic activity/volume) 64 U /L 25-125 Lipase - 10/01/16 04:40 Lipase 28 U/L 8-78 Blood manual differential performed detection - 10/01/16 04:40 Blood monocytes/100 leukocytes 17 % NRG Manual blood segmented neutrophils/100 leukocytes 44 % NRG Blood band neutrophils/100 leukocytes 7 % NRG Manual blood lymphocytes/100 leukocytes 29 % NRG Manual eosinophils/100 leukocytes in nose 2 % NRG Manual blood basophils/100 leukocytes 1 % NRG Blood erythrocyte morphology finding identification NORMAL NRG Magnesium - 10/01/16 04:40 Magnesium 2.4 mg/dL 1.8-2.4 Complete blood count (CBC) with automated white blood cell (WBC) differential - 10/02/16 05:12 Blood leukocytes automated count (number/volume) 5.9 10*3/uL 4.3-11.0 Blood erythrocytes automated count (number/volume) 4.05 10*6/uL 4.35-5.85 Venous blood hemoglobin measurement (mass/volume) 13.0 g/dL 11.5-16.0 Blood hematocrit (volume fraction) 40 % 35-52 Automated erythrocyte mean corpuscular volume 99 [foz_us] 80-99 Automated erythrocyte mean corpuscular hemoglobin (mass per erythrocyte) 32 pg 25-34 Automated erythrocyte mean corpuscular hemoglobin concentration measurement ( mass/volume) 32 g/dL 32-36 Automated erythrocyte distribution width ratio 12.0 % 10.0-14.5 Automated blood platelet count (count/volume) 152 10*3/uL 130-400 Automated blood platelet mean volume measurement 10.5 [foz_us] 7.4-10.4 Automated blood neutrophils/100 leukocytes 51 % 42-75 Automated blood lymphocytes/100 leukocytes 26 % 12-44 Blood monocytes/100 leukocytes 18 % 0-12 Automated blood eosinophils/100 leukocytes 5 % 0-10 Automated blood basophils/100 leukocytes 1 % 0-10 Blood neutrophils automated count (number/volume) 3.0 10*3 1.8-7.8 Blood lymphocytes automated count (number/volume) 1.5 10*3 1.0-4.0 Blood monocytes automated count (number/volume) 1.1 10*3 0.0-1.0 Automated eosinophil count 0.3 10*3/uL 0.0-0.3 Automated blood basophil count (count/volume) 0.0 10*3/uL 0.0-0.1 Comprehensive metabolic panel - 10/02/16 05:12 Serum or plasma sodium measurement (moles/volume) 139 mmol/L 135-145 Serum or plasma potassium measurement (moles/volume) 4.0 mmol/L 3.6-5.0 Serum or plasma chloride measurement (moles/volume) 105 mmol/L 98-107 Carbon dioxide 28 mmol/L 21-32 Serum or plasma anion gap determination (moles/volume) 6 mmol/L 5-14 Serum or plasma urea nitrogen measurement (mass/volume) 20 mg/dL 7-18 Serum or plasma creatinine measurement (mass/volume) 1.32 mg/dL 0.60-1.30 Serum or plasma urea nitrogen/creatinine mass ratio 15 NRG Serum or plasma creatinine measurement with calculation of estimated glomerular filtration rate 40 NRG Serum or plasma glucose measurement (mass/volume) 88 mg/dL 70-105 Serum or plasma calcium measurement (mass/volume) 9.4 mg/dL 8.5-10.1 Serum or plasma total bilirubin measurement (mass/volume) 0.4 mg/dL 0.1-1.0 Serum or plasma alkaline phosphatase measurement (enzymatic activity/volume) 86 U/L 40-136 Serum or plasma aspartate aminotransferase measurement (enzymatic activity/ volume) 33 U/L 5-34 Serum or plasma alanine aminotransferase measurement (enzymatic activity/volume ) 21 U/L 0-55 Serum or plasma protein measurement (mass/volume) 6.2 g/dL 6.4-8.2 Serum or plasma albumin measurement (mass/volume) 3.5 g/dL 3.2-4.5 Complete blood count (CBC) with automated white blood cell (WBC) differential - 06/02/17 07:38 Blood leukocytes automated count (number/volume) 6.6 10*3/uL 4.3-11.0 Blood erythrocytes automated count (number/volume) 3.97 10*6/uL 4.35-5.85 Venous blood hemoglobin measurement (mass/volume) 13.2 g/dL 11.5-16.0 Blood hematocrit (volume fraction) 39 % 35-52 Automated erythrocyte mean corpuscular volume 99 [foz_us] 80-99 Automated erythrocyte mean corpuscular hemoglobin (mass per erythrocyte) 33 pg 25-34 Automated erythrocyte mean corpuscular hemoglobin concentration measurement ( mass/volume) 34 g/dL 32-36 Automated erythrocyte distribution width ratio 12.9 % 10.0-14.5 Automated blood platelet count (count/volume) 161 10*3/uL 130-400 Automated blood platelet mean volume measurement 9.9 [foz_us] 7.4-10.4 Automated blood neutrophils/100 leukocytes 56 % 42-75 Automated blood lymphocytes/100 leukocytes 23 % 12-44 Blood monocytes/100 leukocytes 16 % 0-12 Automated blood eosinophils/100 leukocytes 4 % 0-10 Automated blood basophils/100 leukocytes 1 % 0-10 Blood neutrophils automated count (number/volume) 3.7 10*3 1.8-7.8 Blood lymphocytes automated count (number/volume) 1.5 10*3 1.0-4.0 Blood monocytes automated count (number/volume) 1.1 10*3 0.0-1.0 Automated eosinophil count 0.3 10*3/uL 0.0-0.3 Automated blood basophil count (count/volume) 0.1 10*3/uL 0.0-0.1 Comprehensive metabolic panel - 06/02/17 07:38 Serum or plasma sodium measurement (moles/volume) 139 mmol/L 135-145 Serum or plasma potassium measurement (moles/volume) 4.1 mmol/L 3.6-5.0 Serum or plasma chloride measurement (moles/volume) 111 mmol/L 98-107 Carbon dioxide 20 mmol/L 21-32 Serum or plasma anion gap determination (moles/volume) 8 mmol/L 5-14 Serum or plasma urea nitrogen measurement (mass/volume) 16 mg/dL 7-18 Serum or plasma creatinine measurement (mass/volume) 1.19 mg/dL 0.60-1.30 Serum or plasma urea nitrogen/creatinine mass ratio 13 NRG Serum or plasma creatinine measurement with calculation of estimated glomerular filtration rate 45 NRG Serum or plasma glucose measurement (mass/volume) 94 mg/dL 70-105 Serum or plasma calcium measurement (mass/volume) 8.7 mg/dL 8.5-10.1 Serum or plasma total bilirubin measurement (mass/volume) 0.3 mg/dL 0.1-1.0 Serum or plasma alkaline phosphatase measurement (enzymatic activity/volume) 112 U/L 40-136 Serum or plasma aspartate aminotransferase measurement (enzymatic activity/ volume) 41 U/L 5-34 Serum or plasma alanine aminotransferase measurement (enzymatic activity/volume ) 29 U/L 0-55 Serum or plasma protein measurement (mass/volume) 6.8 g/dL 6.4-8.2 Serum or plasma albumin measurement (mass/volume) 3.5 g/dL 3.2-4.5 Complete urinalysis with reflex to culture - 06/02/17 07:50 Urine color determination YELLOW NRG Urine clarity determination CLEAR NRG Urine pH measurement by test strip 8 5-9 Specific gravity of urine by test strip 1.010 1.016- 1.022 Urine protein assay by test strip, semi-quantitative NEGATIVE NEGATIVE Urine glucose detection by automated test strip NEGATIVE NEGATIVE Erythrocytes detection in urine sediment by light microscopy NEGATIVE NEGATIVE Urine ketones detection by automated test strip NEGATIVE NEGATIVE Urine nitrite detection by test strip NEGATIVE NEGATIVE Urine total bilirubin detection by test strip NEGATIVE NEGATIVE Urine urobilinogen measurement by automated test strip (mass/volume) NORMAL NORMAL Urine leukocyte esterase detection by dipstick 1+ NEGATIVE Automated urine sediment erythrocyte count by microscopy (number/high power field) NONE NRG Automated urine sediment leukocyte count by microscopy (number/high power field ) [HPF] NRG Bacteria detection in urine sediment by light microscopy FEW NRG Squamous epithelial cells detection in urine sediment by light microscopy 0-2 NRG Crystals detection in urine sediment by light microscopy PRESENT NRG Casts detection in urine sediment by light microscopy NONE NRG Mucus detection in urine sediment by light microscopy NEGATIVE NRG Complete urinalysis with reflex to culture YES NRG Amorphous sediment detection in urine sediment by light microscopy FEW JOSE PHOSPHATE NRG Bacterial urine culture - 06/02/17 07:50 URINE CULTURE RESULTS <10,000/ML NRG Complete blood count (CBC) with automated white blood cell (WBC) differential - 08/24/17 12:45 Blood leukocytes automated count (number/volume) 5.8 10*3/uL 4.3-11.0 Blood erythrocytes automated count (number/volume) 4.22 10*6/uL 4.35-5.85 Venous blood hemoglobin measurement (mass/volume) 13.6 g/dL 11.5-16.0 Blood hematocrit (volume fraction) 42 % 35-52 Automated erythrocyte mean corpuscular volume 98 [foz_us] 80-99 Automated erythrocyte mean corpuscular hemoglobin (mass per erythrocyte) 32 pg 25-34 Automated erythrocyte mean corpuscular hemoglobin concentration measurement ( mass/volume) 33 g/dL 32-36 Automated erythrocyte distribution width ratio 13.3 % 10.0-14.5 Automated blood platelet count (count/volume) 216 10*3/uL 130-400 Automated blood platelet mean volume measurement 9.7 [foz_us] 7.4-10.4 Automated blood neutrophils/100 leukocytes 51 % 42-75 Automated blood lymphocytes/100 leukocytes 25 % 12-44 Blood monocytes/100 leukocytes 15 % 0-12 Automated blood eosinophils/100 leukocytes 9 % 0-10 Automated blood basophils/100 leukocytes 1 % 0-10 Blood neutrophils automated count (number/volume) 3.0 10*3 1.8-7.8 Blood lymphocytes automated count (number/volume) 1.4 10*3 1.0-4.0 Blood monocytes automated count (number/volume) 0.8 10*3 0.0-1.0 Automated eosinophil count 0.5 10*3/uL 0.0-0.3 Automated blood basophil count (count/volume) 0.0 10*3/uL 0.0-0.1 PT panel in platelet poor plasma by coagulation assay - 08/24/17 12:45 Prothrombin time (PT) in platelet poor plasma by coagulation assay 12.6 s 12.2-14.7 INR in platelet poor plasma or blood by coagulation assay 0.9 0.8-1.4 Activated partial thromboplastin time (aPTT) in platelet poor plasma bycoagulation assay - 08/24/17 12:45 Activated partial thromboplastin time (aPTT) in platelet poor plasma bycoagulation assay 26 s 24-35 Fibrin D-dimer FEU measurement in platelet poor plasma (mass/volume) - 12:45 Fibrin D-dimer FEU measurement in platelet poor plasma (mass/volume) 1.44 ug/mL 0.00-0.49 Blood lactic acid measurement (moles/volume) - 08/24/17 12:45 Blood lactic acid measurement (moles/volume) 1.34 mmol/L 0.50-2.00 Influenza virus A and B antigen detection - 08/24/17 12:45 FLU RESULT NEGATIVE FOR INFLUENZA A AND B ANTIGENS BY [facility] Comprehensive metabolic panel - 08/24/17 12:45 Serum or plasma sodium measurement (moles/volume) 141 mmol/L 135-145 Serum or plasma potassium measurement (moles/volume) 3.9 mmol/L 3.6-5.0 Serum or plasma chloride measurement (moles/volume) 107 mmol/L 98-107 Carbon dioxide 24 mmol/L 21-32 Serum or plasma anion gap determination (moles/volume) 10 mmol/L 5-14 Serum or plasma urea nitrogen measurement (mass/volume) 19 mg/dL 7-18 Serum or plasma creatinine measurement (mass/volume) 1.32 mg/dL 0.60-1.30 Serum or plasma urea nitrogen/creatinine mass ratio 14 [facility] Serum or plasma creatinine measurement with calculation of estimated glomerular filtration rate 40 [facility] Serum or plasma glucose measurement (mass/volume) 82 mg/dL 70-105 Serum or plasma calcium measurement (mass/volume) 8.9 mg/dL 8.5-10.1 Serum or plasma total bilirubin measurement (mass/volume) 0.4 mg/dL 0.1-1.0 Serum or plasma alkaline phosphatase measurement (enzymatic activity/volume) 132 U/L 40-136 Serum or plasma aspartate aminotransferase measurement (enzymatic activity/ volume) 32 U/L 5-34 Serum or plasma alanine aminotransferase measurement (enzymatic activity/volume ) 25 U/L 0-55 Serum or plasma protein measurement (mass/volume) 7.4 g/dL 6.4-8.2 Serum or plasma albumin measurement (mass/volume) 4.0 g/dL 3.2-4.5 Magnesium - 08/24/17 12:45 Magnesium 2.3 mg/dL 1.8-2.4 Serum or plasma troponin i.cardiac measurement (mass/volume) - 08/24/17 12:45 Serum or plasma troponin i.cardiac measurement (mass/volume) < ng/ mL <0.30 Serum or plasma creatine kinase measurement (enzymatic activity/volume) - 08/24 12:45 Serum or plasma creatine kinase measurement (enzymatic activity/volume) 140 U/L 29-168 Serum or plasma C reactive protein measurement (mass/volume) - 08/24/17 12:45 Serum or plasma C reactive protein measurement (mass/volume) 0.06 mg /dL 0.00-0.50 Myoglobin, serum - 08/24/17 12:45 Myoglobin, serum 91.4 ng/mL 10.0-92.0 Lipase - 08/24/17 12:45 Lipase 29 U/L 8-78 Serum or plasma lithium measurement (moles/volume) - 08/24/17 12:45 BNP level 21.8 pg/mL <100.0 Bacterial blood culture - 08/24/17 12:45 Bacterial blood culture NG NRG Bacterial blood culture - 08/24/17 13:06 QUANTITY OF GROWTH . NRG Bacterial blood culture SEE COMMEN NRG Complete urinalysis with reflex to culture - 08/24/17 14:20 Urine color determination YELLOW NRG Urine clarity determination CLEAR NRG Urine pH measurement by test strip 6.5 5-9 Specific gravity of urine by test strip 1.015 1.016- 1.022 Urine protein assay by test strip, semi-quantitative NEGATIVE NEGATIVE Urine glucose detection by automated test strip NEGATIVE NEGATIVE Erythrocytes detection in urine sediment by light microscopy NEGATIVE NEGATIVE Urine ketones detection by automated test strip NEGATIVE NEGATIVE Urine nitrite detection by test strip NEGATIVE NEGATIVE Urine total bilirubin detection by test strip NEGATIVE NEGATIVE Urine urobilinogen measurement by automated test strip (mass/volume) NORMAL NORMAL Urine leukocyte esterase detection by dipstick NEGATIVE NEGATIVE Automated urine sediment erythrocyte count by microscopy (number/high power field) NONE NRG Automated urine sediment leukocyte count by microscopy (number/high power field ) NONE NRG Bacteria detection in urine sediment by light microscopy NEGATIVE NRG Squamous epithelial cells detection in urine sediment by light microscopy 2-5 NRG Crystals detection in urine sediment by light microscopy NONE NRG Casts detection in urine sediment by light microscopy NONE NRG Mucus detection in urine sediment by light microscopy NEGATIVE NRG Complete urinalysis with reflex to culture NO NRG Sed Rate - 10/21/17 10:35 Sed Rate 32 mm/hr 9-15 CCP Antibodies IgG/IgA - 10/21/17 10:35 CCP ANTIBODIES IGG/IGA 5 UNITS 0-19 CCP Antibodies IgG/IgA - 10/21/17 10:35 CCP Antibodies IgG/IgA 5 units 0-19 Encounters ACCT No. Visit Date/Time Discharge Status Pt. Type Provider Facility Loc./Unit Complaint [id number] 09/20/2014 16:35:00 09/20/2014 23:59:59 CLS Outpatient LARISA SOTELO, VANESSA [id number] 05/18/2014 14:27:00 05/18/2014 23:59:59 CLS Outpatient VANESSA PERES MD [id number] 02/02/2014 11:18:00 02/02/2014 23:59:59 CLS Outpatient VANESSA PERES MD [id number] 08/21/2013 07:12:00 08/21/2013 23:59:59 CLS Outpatient JADEN CRAFTAUGUSTUS [id number] 05/22/2013 09:45:00 05/22/2013 23:59:59 CLS Outpatient JADEN CRAFTAUGUSTUS [id number] 05/16/2013 10:13:00 05/16/2013 23:59:59 CLS Outpatient STANLEY AUGUSTUS CRAFT [id number] 05/02/2013 09:47:00 05/02/2013 23:59:59 CLS Outpatient VANESSA PERES MD [id number] 03/30/2013 13:07:00 03/30/2013 23:59:59 CLS Outpatient VANESSA PERES MD [id number] 08/26/2012 10:02:00 08/26/2012 23:59:59 CLS Outpatient VANESSA PERES MD [id number] 08/16/2012 13:36:00 08/16/2012 23:59:59 CLS Outpatient [id number] 07/07/2012 14:39:00 07/07/2012 23:59:59 [place] [id number] 05/03/2012 10:07:00 05/03/2012 23:59:59 CLS Outpatient [id number] 11/10/2012 13:55:00 Document Registration [id number] 10/21/2017 10:29:00 10/21/2017 23:59:00 DIS Outpatient Dudley English [id number] 04/07/2016 09:00:00 05/12/2016 14:25:00 DIS Outpatient GENNY CHAVEZ [id number] 03/25/2016 18:40:00 Document Registration [id number] 11/12/2017 10:23:00 11/12/2017 23:59:59 CLS Outpatient JUDY BRUNO [facility] RAD MUTLINODULAR GOITER [id number] 09/02/2017 09:51:00 09/02/2017 23:59:59 CLS Outpatient LOLLY SUTTON APRN [facility] RAD R51,M54.5,M79.604 [id number] 08/24/2017 12:29:00 08/24/2017 15:59:00 DIS Emergency HUMA SOTELO, THERESE Post [facility] ER CP,DIZZINESS,SWEATY [id number] 08/04/2017 13:13:00 08/04/2017 23:59:59 CLS Outpatient LOLLY SUTTON DIRECTOR OF HEAD START [facility] RAD R92.8 ABN MAMMO [id number] 07/06/2017 12:35:00 07/06/2017 23:59:59 CLS Outpatient COURTNEY SOTELO, BELINDA Gomez [facility] RAD THYROID NODULES [id number] 06/02/2017 06:03:00 06/02/2017 09:36:00 DIS Emergency GRETTA SOTELO, MACY Oleary [facility] ER FALL [id number] 04/22/2017 08:13:00 04/22/2017 23:59:59 CLS Outpatient LOLLY SUTTON DIRECTOR OF HEAD START [facility] RAD M81.0 AGE RELATED OSTEOPOROSIS WO CURRENT PATHOLOG [id number] 02/01/2017 08:01:00 02/01/2017 23:59:59 CLS Outpatient LOLLY SUTTON DIRECTOR OF HEAD START [facility] RAD R92.8 [id number] 12/07/2016 07:22:00 12/07/2016 23:59:59 CLS Outpatient INDIA BARROW MD [facility] ENDO SCREENING [id number] 12/03/2016 05:56:00 12/03/2016 23:59:59 CLS Outpatient INDIA BARROW MD [facility] PREOP SCREENING COLONOSCOPY [id number] 10/05/2016 08:06:00 10/05/2016 23:59:59 CLS Outpatient ANURADHA SOTELO, JOVON Post [facility] RAD ABNORMAL MAMMO [id number] 09/30/2016 20:33:00 10/02/2016 11:20:00 DIS Inpatient DADA SANDOVAL DO [facility] 4TH RUQ PAIN;DEHYDRATION; ELECTROLYTE IMBALANCE; [id number] 08/26/2016 20:20:00 08/26/2016 23:20:00 DIS Emergency SOLIS PIRES MD [facility] ER NAUSEA [id number] 08/24/2016 14:39:00 08/24/2016 23:59:59 CLS Outpatient JOVON LING MD [facility] RAD SCREENING [id number] 08/03/2016 08:33:00 08/03/2016 11:31:00 DIS Emergency FABIOLA HERNANDEZ DO [facility] ER FALL/HEAD PAIN [id number] 06/18/2016 05:48:00 06/18/2016 23:59:59 CLS Outpatient INDIA BARROW MD [facility] PREOP DIARRHEA [id number] 06/10/2016 20:09:00 06/10/2016 23:15:00 DIS Emergency RYAN VALENZUELA DIRECTOR OF HEAD START [facility] ER SOB [id number] 05/01/2016 05:38:00 05/01/2016 14:13:00 DIS Outpatient INDIA BARROW MD [facility] PREOP SCREENING [id number] 10/13/2015 21:41:00 10/14/2015 20:10:00 DIS Inpatient RAE BUTLER MD [facility] 4TH CHEST PAIN [id number] 06/07/2015 14:46:00 06/07/2015 23:59:59 CLS Outpatient BELINDA RIVERA DO [facility] RAD SCREENING [id number] 09/07/2013 07:47:00 09/07/2013 23:59:59 CLS Outpatient ROZ SOTELO FACCTEAGAN FACP CCDS [facility] RAD ABD BLOATING [id number] 08/02/2013 07:34:00 08/02/2013 23:59:59 CLS Outpatient INGA DIEGO MD [facility] RAD CAD,GERD,HTN [id number] 07/21/2013 20:15:00 07/22/2013 11:30:00 DIS Inpatient AUGUSTUS STANLEY DO [facility] CSD CHEST PAIN [id number] 05/24/2013 09:43:00 05/24/2013 23:59:59 CLS Outpatient BELINDA RIVERA DO [facility] RAD PELVIC PAIN, SCREENING [id number] 12/07/2017 09:08:00 PEN Preadmit LOLLY SUTTON APRN [facility] REHAB GENERAL WEKANESS;ABNORMAL GAIT;PAIN IN R LEG [id number] 10/05/2015 03:05:00 Document Registration [id number] 10/17/2012 11:00:00 Document Registration [id number] 07/18/2012 10:37:00 Document Registration [id number] 01/29/2012 08:28:00 Document Registration [id number] 10/21/2011 12:49:00 Document Registration [id number] 06/18/2011 15:26:00 Document Registration [id number] 06/16/2011 08:42:00 Document Registration [id number] 04/06/2011 10:15:00 Document Registration [id number] 10/06/2010 12:25:00 Document Registration [id number] 05/07/2010 08:07:00 Document Registration [id number] 09/28/2017 14:00:00 09/28/2017 23:59:59 CLS Outpatient LARISA SOTELO, VANESSA [facility] [id number] 10/24/2017 00:06:00 Document Registration [id number] 06/18/2016 16:30:00 07/02/2016 11:10:00 DIS Inpatient NELLY SOTELO, LEI [facility]
[2017-11-24 20:44] LABS: BASOPHILS % (AUTO) 0 % (0-10); EOSINOPHILS # (AUTO) 0.2 10^3/uL (0.0-0.3); EOSINOPHILS % (AUTO) 3 % (0-10); HEMATOCRIT 39 % (35-52); LYMPHOCYTES # (AUTO) 1.9 X 10^3 (1.0-4.0); LYMPHOCYTES % (AUTO) 27 % (12-44); MEAN CORPUSCULAR HEMOGLOBIN 32 PG (25-34); MEAN CORPUSCULAR HGB CONC 33 G/DL (32-36); MEAN CORPUSCULAR VOLUME 98 FL (80-99); MEAN PLATELET VOLUME 9.9 FL (7.4-10.4); MONOCYTES # (AUTO) 1.4 X 10^3 (0.0-1.0); MONOCYTES % (AUTO) 19 % (0-12); NEUTROPHILS # (AUTO) 3.6 X 10^3 (1.8-7.8); NEUTROPHILS % (AUTO) 50 % (42-75); PLATELET COUNT 228 10^3/uL (130-400); RED BLOOD COUNT 4.01 10^6/uL (4.35-5.85); RED CELL DISTRIBUTION WIDTH 12.5 % (10.0-14.5); WHITE BLOOD COUNT 7.1 10^3/uL (4.3-11.0)
[2017-11-24] MEDS ORDERED: NITROGLYCERIN 2% OINT 1 GM UNIT DOSE PACKET TOP ONE (20:45)
[2017-11-24] MEDS ORDERED: ASPIRIN 81 MG CHEW (CHILDREN'S ASA) PO ONE (20:45)
[2017-11-24 20:56] LABS: INR 0.9 (0.8-1.4); PROTHROMBIN TIME PATIENT 12.5 SEC (12.2-14.7)
--- NOTE | 2017-11-24 20:59 | ED Chest Pain ---
General Chief Complaint: Cardiac/General Problems Stated Complaint: SOB, CP, L ARM PAIN Nursing Triage Note: pt presents to er with complaint of chest pain with pain radiating into her back and left arm. states pain started about an hour ago whenever she was laying in bed. Nursing Sepsis Screen: No Definite Risk Source: patient, old records (MOST OF PMH IS FROM OLD RECORDS) Exam Limitations: other (PT IS LIMITED HISTORIAN--HISTORY OF DEMENTIA) History of Present Illness Date Seen by Provider: November 24, 2017 Time Seen by Provider: 20:33 Initial Comments PT AR[facility]IVES [facility] FROM [facility] PT STATES SHE CALLED THE [facility] BECAUSE SHE BEGAN HAVING CHEST PAIN APPROXIMATELY AN HOUR AGO PAIN BEGAN WHILE SITTING IN BED PAIN IS IN MID CHEST AND RADIATES THROUGH TO HER BACK AND DOWN HER LEFT ARM, AND UP THE SIDES OF HER NECK TO HER JAWS + SHORTNESS OF BREATH AND IT FEELS VERY HEAVY ON HER CHEST TO BREATHE + SWEATS + NAUSEA, NO VOMITING + DIZZINESS + LEG SWELLING--HAS HISTORY OF LEG SWELLING ,BUT CANNOT STATE IF IT IS WORSE THAN NORMAL C/O HEADACHE TO TOP OF HEAD PT DENIES HAVING A HISTORY OF THE SAME PCP: DR. LING COMPLIANCE ATTORNEY: DR. COURTNEY, BUT STATES SHE DOESN'T KNOW WHY SHE SEES HIM--PT STATES SHE HAS HAD RHEUMATIC FEVER, BUT DENIES ANY OTHER HEART PROBLEMS AND DOES NOT KNOW IF SHE HAS PROBLEMS WITH HER VALVES OR NOT. Allergies and Home Medications Allergies Coded Allergies: Penicillins (Verified Allergy, Mild, 07/22/13) latex (Verified Allergy, Mild, 07/22/13) Home Medications Aspirin 81 Mg Tablet., 81 MG PO DAILY, (Reported) Atorvastatin Calcium 80 Mg Tablet, 80 MG PO DAILY, (Reported) Calcium Carbonate/Vitamin D3 1 Each Tablet, 1 TAB PO BID, (Reported) Clonazepam 0.5 Mg Tablet, 0.5 MG PO HS, (Reported) Donepezil HCl 10 Mg Tablet, 10 MG PO HS, (Reported) Fluconazole 200 Mg Tablet, 200 MG PO Q48H, (Reported) TAKE ON ODD DAYS RELATED TO BACTERIAL INFECTION Folic Acid 1 Mg Tablet, 1 MG PO DAILY, (Reported) Furosemide 40 Mg Tablet, 40 MG PO DAILY, (Reported) Hydrocodone Bit/Acetaminophen 1 Each Tablet, 1 TAB PO Q4H PRN for MODERATE PAIN Prescribed by: DADA SANDOVAL on 10/02/16 1120 Ketoconazole 120 Ml Shampoo, TOP DAILY, (Reported) DAILY X 2 WEEKS THEN TWICE WEEKLY Lamotrigine 200 Mg Tablet, 200 MG PO BID, (Reported) Levetiracetam 750 Mg Tablet, 1,500 MG PO BID, (Reported) TAKES 2 (750MG) TABLETS Meclizine HCl 25 Mg Tablet, 25 MG PO Q6H PRN for DIZZINESS, (Reported) Melatonin/Pyridoxine 1 Each Tablet, 3 MG PO HS, (Reported) Meloxicam 15 Mg Tablet, 15 MG PO DAILY, (Reported) Memantine HCl 5 Mg Tablet, 5 MG PO DAILY, (Reported) Oxybutynin Chloride 15 Mg Tab.er.24, 15 MG PO HS, (Reported) Potassium Chloride 20 Meq Tablet.er, 20 MEQ PO DAILY Prescribed by: DADA SANDOVAL on 10/02/16 1120 Prednisolone Acetate 5 Ml Drops.susp, 1 DROP OU Q48H, (Reported) Risperidone 1 Mg Tablet, 1 MG PO DAILY, (Reported) Rivastigmine 9.5 Mg Patch, 9.5 MG TD DAILY, (Reported) Topiramate 200 Mg Tablet, 200 MG PO BID, (Reported) Trazodone HCl 50 Mg Tablet, 50 MG PO HS, (Reported) Triamcinolone Acet 15 Gm Cr, TOP BID, (Reported) Zolpidem Tartrate 5 Mg Tablet, 5 MG PO HS, (Reported) Patient Home Medication List Home Medication List Reviewed: Yes Review of Systems Constitutional: no symptoms reported, chills, dizziness, weakness EENTM: No Symptoms Reported Respiratory: See HPI, Shortness of Air Cardiovascular: See HPI, Chest Pain, Edema, Lightheadedness Gastrointestinal: Denies Abdominal Pain; Nausea; Denies Vomiting Musculoskeletal: see HPI Skin: no symptoms reported Psychiatric/Neurological: See HPI, Headache; Denies Numbness, Denies Paresthesia, Denies Weakness Past [id number]-[id number] Hx Patient Social History Alcohol Use: Denies Use Recreational Drug Use: No Smoking Status: Former Smoker (SMOKED 1 PPD, DOES NOT REMEMBER WHEN SHE QUIT) Type Used: Cigarettes Recent Foreign Travel: No Contact w/Someone Who Travel: No Recent Infectious Disease Expo: No Recent Hopitalizations: No (PSYCH EVALUATIOIN 06/19) Immunizations Up To Date Tetanus Booster (TDap): Unknown Date of Influenza Vaccine: Apr 04, 2016 Seasonal Allergies Seasonal Allergies: No Past Medical History Surgeries: Yes Gallbladder, Lumpectomy Respiratory: Yes (BRONCHITIS) Chronic Bronchitis Currently Using CPAP: No Cardiac: Yes Chronic Edema/Swelling, Coronary Artery Disease, High Cholesterol, Hypertension , Rheumatic Fever Neurological: Yes (ENCEPHALITIS) Concussion, Dementia, Seizure Disorder, Traumatic Brain Injury, Vertigo Reproductive Disorders: No Female Reproductive Disorders: Denies Sexually Transmitted Disease: No HIV/AIDS: No Genitourinary: Yes (CHRONIC RENAL INSUFFICIENCY; BLADDER CONTROL ISSUES?) Gastrointestinal: Yes ("STOMACH DISCOMFORT"--POST-CHOLECYSTECTOMY SYNDROME) Gastroesophageal Reflux, Chronic Constipation, Gall Bladder Disease Musculoskeletal: Yes Arthritis Endocrine: No Loss of Vision: Bilateral Hearing Impairment: Denies Cancer: No Psychosocial: Yes Sleep Difficulties, Bipolar Integumentary: Yes Psoriasis Blood Disorders: No Family Medical History Cancer 03 FATHER (PANCREATIC CANCER) 09 BROTHER ( AT AGE 10) Family history: Cardiovascular disease 03 MOTHER Family history: Diabetes mellitus 03 MOTHER Heart disease 03 MOTHER No Pertinent Family Hx Physical Exam Vital Signs Vital Signs - First Documented 11/24/17 20:33 Pulse 62 Resp 19 B/P (MAP) 177/83 (114) Pulse Ox 97 O2 Delivery Room Air Capillary Refill : Less Than 3 Seconds General Appearance: Mild Distress (MILDLY DYSPNEIC, PT GRIMACING AND LOOKS UNCOMFORTABLE), Obese, Other (PT C/O SEVERE PAIN WHEREVER SHE IS TOUCHED-C/O PAIN WITH APPLYING EKG STICKERS, APPLYING TOURNIQUET, ETC. 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 PT ORIENTED TO PERSON, PLACE, TIME, SITUATION, BUT HAS VERY POOR MEMORY) Skin: Normal Color, Warm/Dry; No Rash Progress/Results/Core Measures Results/Orders Lab Results Laboratory Tests Test 11/24/17 20:35 Range/Units White Blood Count 7.1 4.3-11.0 10^3/uL Red Blood Count 4.01 L 4.35-5.85 10^6/uL Hemoglobin 13.0 11.5-16.0 G/DL Hematocrit 39 35-52 % Mean Corpuscular Volume 98 80-99 FL Mean Corpuscular Hemoglobin 32 25-34 PG Mean Corpuscular Hemoglobin Concent 33 32-36 G/DL Red Cell Distribution Width 12.5 10.0-14.5 % Platelet Count 228 130-400 10^3/uL Mean Platelet Volume 9.9 7.4-10.4 FL Neutrophils (%) (Auto) 50 42-75 % Lymphocytes (%) (Auto) 27 12-44 % Monocytes (%) (Auto) 19 H 0-12 % Eosinophils (%) (Auto) 3 0-10 % Basophils (%) (Auto) 0 0-10 % Neutrophils # (Auto) 3.6 1.8-7.8 X 10^3 Lymphocytes # (Auto) 1.9 1.0-4.0 X 10^3 Monocytes # (Auto) 1.4 H 0.0-1.0 X 10^3 Eosinophils # (Auto) 0.2 0.0-0.3 10^3/uL Basophils # (Auto) 0.0 0.0-0.1 10^3/uL Neutrophils % (Manual) 60 % Lymphocytes % (Manual) 27 % Monocytes % (Manual) 12 % Eosinophils % (Manual) 1 % Basophils % (Manual) 0 % Band Neutrophils 0 % Blood Morphology Comment NORMAL Prothrombin Time 12.5 12.2-14.7 SEC INR Comment 0.9 0.8-1.4 Activated Partial Thromboplast Time 28 24-35 SEC Sodium Level 138 135-145 MMOL/L Potassium Level 3.7 3.6-5.0 MMOL/L Chloride Level 103 98-107 MMOL/L Carbon Dioxide Level 23 21-32 MMOL/L Anion Gap 12 5-14 MMOL/L Blood Urea Nitrogen 23 H 7-18 MG/DL Creatinine 1.65 H 0.60-1.30 MG/DL Estimat Glomerular Filtration Rate 31 BUN/Creatinine Ratio 14 Glucose Level 89 70-105 MG/DL Calcium Level 9.2 8.5-10.1 MG/DL Magnesium Level 2.3 1.8-2.4 MG/DL Total Bilirubin 0.4 0.1-1.0 MG/DL Aspartate Amino Transf (AST/SGOT) 29 5-34 U/L Alanine Aminotransferase (ALT/SGPT) 23 0-55 U/L Alkaline Phosphatase 141 H 40-136 U/L Total Creatine Kinase 127 29-168 U/L Creatine Kinase MB 1.3 <6.6 NG/ML Troponin I < 0.30 <0.30 NG/ML B-Type Natriuretic Peptide < 10.0 <100.0 PG/ML Total Protein 7.6 6.4-8.2 GM/DL Albumin 4.2 3.2-4.5 GM/DL Amylase Level 65 25-125 U/L Lipase 32 8-78 U/L My Orders Orders - NAIMA VILLEDA DO Amylase (11/24/17 20:34) Cbc With Automated Diff (11/24/17 20:34) Comprehensive Metabolic Panel (11/24/17 20:34) Creatine Kinase (11/24/17 20:34) Creatine Kinase Mb (11/24/17 20:34) Lipase (11/24/17 20:34) Partial Thromboplastin Time (11/24/17 20:34) Protime With Inr (11/24/17 20:34) Troponin I (11/24/17 20:34) Chest 1 View, Ap/Pa Only (11/24/17 20:34) O2 (11/24/17 20:34) Ekg Tracing (11/24/17 20:34) Aspirin Chewable Tablet (Baby Aspirin Ch (11/24/17 20:45) BNP (11/24/17 20:34) Monitor-Rhythm Ecg Trace Only (11/24/17 20:34) Magnesium (11/24/17 20:34) Nitroglycerin Ointment (Nitrobid Ointme (11/24/17 20:45) Manual Differential (11/24/17 20:35) Ketorolac Injection (Toradol Injection) (11/24/17 21:30) Medications Given in ED Current Medications Medications Dose Ordered Sig/Cory Route Start Time Stop Time Status Last Admin Dose Admin Aspirin 324 mg ONCE ONCE PO 11/24/17 20:45 11/24/17 20:46 DC 11/24/17 20:41 324 MG Ketorolac Tromethamine 30 mg ONCE ONCE IVP 11/24/17 21:30 11/24/17 21:32 DC 11/24/17 21:41 30 MG Nitroglycerin 1 inch ONCE ONCE TOP 11/24/17 20:45 11/24/17 20:46 DC 11/24/17 20:48 1 INCH Vital Signs/I&O 11/24/17 20:33 Pulse 62 Resp 19 B/P (MAP) 177/83 (114) Pulse Ox 97 O2 Delivery Room Air Blood Pressure Mean: 114 Progress Progress Note : Progress Note GIVEN ASPIRIN AND NITROPASTE APPLIED--PB DOWN TO 120'S SYSTOLIC 2052--PT STATES ALL OF HER SYMPTOMS ARE NOW GONE 2124--PT NOW TELLS NURSE SHE STILL HAS PAIN IN HER CHEST, HER BACK AND HER LEFT ARM AND IT NEVER WENT AWAY. PT BECOMING MORE ANXIOUS AND AGITATED, WANTING TO TAKE OFF MONITOR LEADS, WANTS BP CUFF AND PULSE OX OFF, AND WANTS TO TAKE OUT HER IV. PT CALMED WITH TALKING AND RE-DIRECTION AND REPEATEDLY EXPLAINING WHY SHE NEEDS THESE THINGS EXPLAINED NEED FOR ADMIT. AND SHE APPEARS TO UNDERSTAND PT GIVEN TORADOL FOR PAIN Initial ECG Impression Date: November 24, 2017 Initial ECG Impression Time: 20:36 Initial ECG Rate: 69 Initial ECG Rhythm: Normal Sinus Diagnostic Imaging Comments CXR--NO ACUTE PROCESS, PER RADIOLOGIST REPORT Reviewed: Reviewed by Me Departure Communication (Admissions) 2132--SPOKE WITH DR. SANDOVAL, SHE ACCEPTS PT FOR ADMIT. ORDERS NOTED. WILL CONSULT CARDIOLOGY IN AM Impression Primary Impression: Chest pain Additional Impressions: HTN (hypertension) Dementia Leg edema Chronic renal insufficiency Disposition: ADMITTED INPATIENT Condition: Improved Admissions Decision to Admit Reason: Admit from ER (General) Decision to Admit/Date: November 24, 2017 Time/Decision to Admit Time: 21:35 Departure-Patient Inst. Referrals: JOVON LING MD (PCP/Family) Primary Care Physician NAIMA VILLEDA DO November 24, 2017 20:59
[2017-11-24 21:01] LABS: BAND NEUTROPHILS 0 %; LYMPHOCYTES % (MANUAL) 27 %; MONOCYTES % (MANUAL) 12 %; NEUTROPHILS % (MANUAL) 60 %
[2017-11-24 21:02] LABS: BASOPHILS % (MANUAL) 0 %; EOSINOPHILS % (MANUAL) 1 %; RBC MORPH NORMAL
[2017-11-24 21:06] LABS: ALANINE AMINOTRANSFERASE 23 U/L (0-55); ALBUMIN 4.2 GM/DL (3.2-4.5); ALKALINE PHOSPHATASE 141 U/L (40-136); AMYLASE 65 U/L (25-125); BILIRUBIN,TOTAL 0.4 MG/DL (0.1-1.0); BUN/CREATININE RATIO 14; CALCIUM 9.2 MG/DL (8.5-10.1); CARBON DIOXIDE 23 MMOL/L (21-32); CHLORIDE 103 MMOL/L (98-107); CREATINE KINASE 127 U/L (29-168); CREATININE SERUM 1.65 MG/DL (0.60-1.30); GFR ESTIMATED 31; GLUCOSE 89 MG/DL (70-105); LIPASE 32 U/L (8-78); MAGNESIUM 2.3 MG/DL (1.8-2.4); POTASSIUM 3.7 MMOL/L (3.6-5.0); SODIUM 138 MMOL/L (135-145); TOTAL PROTEIN 7.6 GM/DL (6.4-8.2)
[2017-11-24 21:12] LABS: CREATINE KINASE MB 1.3 NG/ML (<6.6)
--- NOTE | 2017-11-24 21:22 | Diagnostic Imaging Report ---
INDICATION: Chest pain COMPARISON: 08/24/17 FINDINGS: Single view of the chest demonstrates stable cardiac enlargement. The lungs are otherwise clear. There is no pneumothorax. The osseous structures normal. IMPRESSION: Stable cardiac enlargement without pulmonary edema or infiltrate Dictated by: Dictated on workstation # [id number]
[2017-11-24] MEDS ORDERED: KETOROLAC 30 MG/ML VIAL IVP ONE (21:30)
--- OUTSIDE RECORDS SUMMARY | 2017-11-24 21:51 | XMS REPORT | Clinical Summary ---
Author Author [facility] Organization [facility] Address Unknown Phone Unavailable Care Team Providers Care Assistant Associate Full Professor Name Role Phone Andres Jo MD [address]japati MD Unavailable Lex Dunne MD, ST. [...] in the Health Information Management department at [phone] for further assistance in locating additional records.[facility] Allergies Active Allergy Reactions Severity Noted Date [...] Problem Noted Date PEG (acute kidney injury) ([facility]) 05/19/2016 Disorientation 05/19/2016 Dementia in conditions classified elsewhere without behavioral disturbance 10/11/2007 Other screening mammogram 07/22/2007 Chest pain 07/21/2007 Seizure disorder ([facility]) Brain injury ([facility]) Dementia Psychosis GERD (gastroesophageal reflux disease) Restless leg syndrome Social History Tobacco Use Types Packs/Day Years Used Date Current Every Day Smoker Alcohol Use Drinks/Week oz/Week Comments No Sex Assigned at Date Recorded Not on file Last Filed Vital Signs Vital Sign Reading Time Taken Blood Pressure 135/52 05/19/2016 8:00 AM [employer] Pulse 56 05/18/2016 4:43 PM [employer] Temperature 36.4 C (97.6 F) 05/19/2016 8:00 AM [employer] Respiratory Rate - - Oxygen Saturation 97% 05/19/2016 8:00 AM [employer] Inhaled Oxygen - - Concentration Weight 95.3 kg (210 lb) 05/18/2016 4:43 PM [employer] Height 162.6 cm (5' 4") 05/18/2016 4:43 PM [employer] Body Mass Index 36.05 05/18/2016 4:43 PM [employer] Plan of Treatment Health Maintenance Due Date Last Done Comments HEPATITIS C SCREENING 1951 PHYSICAL (COMPREHENSIVE) 1958 EXAM PERTUSSIS VACCINE 1962 TETANUS VACCINE 1968 COLORECTAL CANCER 2001 SCREENING BREAST CANCER SCREENING 07/22/2008 07/22/2007, 07/22/2007 SHINGLES VACCINE 2011 OSTEOPOROSIS SCREENING 2016 PREVNAR/PNEUMOVAX (#1) 2016 INFLUENZA VACCINE 04/04/2018 Results Not on filefrom Last 3 Months
--- OUTSIDE RECORDS SUMMARY | 2017-11-24 21:58 | XMS REPORT | Continuity of Care Document ---
Author Author [facility] Address Unknown Phone Unavailable Allergies Active Description [...] Yes Penicillins Drug Allergy 11/08/2008 Yes latex [id number] Drug Allergy Mild N/A 07/22/2013 Yes Penicillins [id number] Drug Allergy Mild N/A 07/22/2013 Yes latex [...] AUGUSTUS K 296.9 MOOD DIS NOS 07/19/2009 SATNLEY DO, AUGUSTUS K 300.00 ANXIETY UNSPEC 07/19/2009 [...] 787.91 Diarrhea 09/03/2009 787.91 Diarrhea 09/03/2009 LARISA OSTELO, VANESSA 787.91 Diarrhea 09/03/2009 VANESSA PERES MD [...] Abdominal Pain Unspecified Site 03/28/2010 STANLEY DO AUGUSUTS Travis V76.10 Breast Screening, Unspecified 03/28/2010 VANESSA [...] NOS 10/08/2010 Ot 414.01 CORONARY ATHEROSCLEROSIS OF [place] CORON 10/08/2010 Ot 530.81 ESOPHAGEAL REFLUX 11/06/2010 [...] 11/06/2010 LARISA SOTELO, VANESSA 696.1 PSORIASIS 11/06/2010 ALRISA SOTELO, VANESSA 696.1 PSORIASIS 11/06/2010 LARISA SOTELO, [...] DO, AUGUSTUS K 345.90 Seizure Disorder 06/17/2011 STNALEY DO, AUGUSTUS K 786.50 Chest Pain 06/17/2011 [...] DISEASE 06/19/2011 Ot 414.01 CORONARY ATHEROSCLEROSIS OF [place] CORON 06/19/2011 Ot 427.89 CARDIAC DYSRHYTHMIAS NEC [...] VANESSA PERES MD 783.21 WEIGHT LOSS 10/14/2011 VANESSA PERES MD V72.62 LAB SCREENING- GENERAL PHYSICAL [...] ASSOCIATED WITH FEMALE GENITAL ORGANS 05/16/2013 AUGUSTUS STANLEY DO 461.9 SINUSITIS ACUTE [...] IN CONDITIONS W/O BEHAVIORAL DI 07/22/2013 AUGUSTUS STANLEY DO Ot 311 DEPRESSIVE DISORDER NEC 07/22/2013 AUGUSTUS STANLEY DO Ot 331.0 ALZHEIMER'S DISEASE 07/22/2013 AUGUSTUS STANLEY DO Ot 345.90 EPILEPSY UNSPEC W/O MENTION INTRACTABLE 07/22/2013 AUGUSTUS STANLEY DO Ot 401.9 HYPERTENSION NOS 07/22/2013 AUGUSTUS STANLEY DO Ot 414.01 CORONARY ATHEROSCLEROSIS OF [place] CORON 07/22/2013 AUGUSTUS STANLEY DO Ot 426.4 [...] CCDS Ot 789.30 10/07/2015 BELINDA RIVERA DO Ot Z12.31 10/11/2015 Ot F03.90 10/11/2015 [...] MD Ot I25.10 ATHSCL HEART DISEASE OF [place] CORONARY 10/14/2015 RAE BUTLER MD Ot K21.9 [...] SCHIZOAFFECTIVE DISORDER, DEPRESSIVE TYPE 06/10/2016 RYAN VALENZUELA SECRETARY ADMINISTRATIVE ASSISTANT Ot F03.90 UNSPECIFIED DEMENTIA WITHOUT BEHAVIORAL 06/10/2016 RYAN VALENZUELA SECRETARY ADMINISTRATIVE ASSISTANT Ot G40.909 EPILEPSY, UNSP, NOT INTRACTABLE, WITHOUT 06/10/2016 RYAN VALENZUELA SECRETARY ADMINISTRATIVE ASSISTANT Ot J40 BRONCHITIS, NOT SPECIFIED ACUTE OR CH 06/10/2016 RYAN VALENZUELA SECRETARY ADMINISTRATIVE ASSISTANT Ot R06.02 SHORTNESS OF BREATH 06/10/2016 RYAN VALENZUELA SECRETARY ADMINISTRATIVE ASSISTANT Ot R42 DIZZINESS AND GIDDINESS 06/10/2016 RYAN VALENZUELA APRN Ot Z79.82 STEWARD RACETRACK (CURRENT) USE OF ASPIRIN 06/10/2016 RYAN VALENZUELA APRN Ot Z79.899 OTHER STEWARD RACETRACK (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 THERAPY 06/10/2016 RYAN VALENZUELA APRN [...] VILLEGAS MD R00.1 Bradycardia, unspecified 07/02/2016 LEI VILELGAS MD R19.7 Diarrhea, unspecified 07/02/2016 LEI VILLEGAS MD R45.1 Restlessness and agitation 07/02/2016 LEI VILLEGAS MD R60.0 Localized edema 07/02/2016 LEI VILLEGAS MD R74.8 Abnormal levels of other serum enzymes 07/02/2016 ELI VILLEGAS MD Z87.891 Personal history of nicotine dependence 08/03/2016 FABIOLA HERNANDEZ DO, Ot I10 ESSENTIAL (PRIMARY) HYPERTENSION 08/03/2016 FABIOLA HERNANDEZ DO, Ot I25.10 ATHSCL HEART DISEASE OF [place] CORONARY 08/03/2016 FABIOLA HERNANDEZ DO, Ot S01.01XA LACERATION WITHOUT FOREIGN BODY OF SCALP 08/03/2016 FABIOLA HERNANDEZ DO, Ot W01.0XXA FALL SAME LEV FROM SLIP/TRIP W/O STRIKE 08/03/2016 FABIOLA HERNANDEZ DO Ot Y99.8 OTHER EXTERNAL CAUSE STATUS 08/03/2016 FABIOLA HERNANDEZ DO, Ot Z23 ENCOUNTER FOR IMMUNIZATION 08/03/2016 FABIOLA HERNANDEZ DO, Ot Z79.82 STEWARD RACETRACK (CURRENT) USE OF ASPIRIN 08/03/2016 FABIOLA HERNANDEZ DO, Ot Z79.899 OTHER SHELTER (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 THERAPY 08/04/2016 FABIOLA HERNANDEZ DO Ot I10 ESSENTIAL (PRIMARY) HYPERTENSION 08/04/2016 FABIOLA HERNANDEZ DO, Ot I25.10 ATHSCL HEART DISEASE OF [place] CORONARY 08/04/2016 FABIOLA HERNANDEZ DO Ot S01.01XA LACERATION WITHOUT FOREIGN BODY OF SCALP 08/04/2016 FABIOLA HERNANDEZ DO, Ot W01.0XXA FALL SAME LEV FROM SLIP/TRIP W/O STRIKE 08/04/2016 FABIOLA HERNANDEZ DO Ot Y99.8 OTHER EXTERNAL CAUSE STATUS 08/04/2016 FABIOLA HERNANDEZ DO, Ot Z23 ENCOUNTER FOR IMMUNIZATION 08/04/2016 FABIOLA HERNANDEZ DO, Ot Z79.82 SHELTER (CURRENT) USE OF ASPIRIN 08/04/2016 FABIOLA HERNANDEZ DO, Ot Z79.899 OTHER STEWARD RACETRACK (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 THERAPY 08/11/2016 FABIOLA HERNANDEZ DO Ot I10 ESSENTIAL (PRIMARY) HYPERTENSION 08/11/2016 FABIOLA HERNANDEZ DO, Ot I25.10 ATHSCL HEART DISEASE OF [place] CORONARY 08/11/2016 FABIOLA HERNANDEZ DO Ot S01.01XA LACERATION WITHOUT FOREIGN BODY OF SCALP 08/11/2016 FABIOLA HERNANDEZ DO, Ot W01.0XXA FALL SAME LEV FROM SLIP/TRIP W/O STRIKE 08/11/2016 FABIOLA HERNANDEZ DO Ot Y99.8 OTHER EXTERNAL CAUSE STATUS 08/11/2016 FABIOLA HERNANDEZ DO Ot Z23 ENCOUNTER FOR IMMUNIZATION 08/11/2016 FABIOLA HERNANDEZ DO, Ot Z79.82 SHELTER (CURRENT) USE OF ASPIRIN 08/11/2016 FABIOLA HERNANDEZ DO, Ot Z79.899 OTHER STEWARD RACETRACK (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 THERAPY 08/24/2016 Ot V76.12 OTH [...] MD Ot I25.10 ATHSCL HEART DISEASE OF [place] CORONARY 08/26/2016 SOLIS PIRES MD Ot R42 DIZZINESS AND GIDDINESS 08/26/2016 SOLIS PIRES MD Ot Z79.82 STEWARD RACETRACK (CURRENT) USE OF ASPIRIN 08/26/2016 SOLIS PIRES MD Ot Z79.899 OTHER SHELTER (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 THERAPY 08/27/2016 Ot V76.12 OTH [...] MD Ot I25.10 ATHSCL HEART DISEASE OF [place] CORONARY 08/28/2016 SOLIS PIRES MD Ot R42 DIZZINESS AND GIDDINESS 08/28/2016 SOLIS PIRES MD Ot Z79.82 SHELTER (CURRENT) USE OF ASPIRIN 08/28/2016 SOLIS PIRES MD Ot Z79.899 OTHER SHELTER (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 THERAPY 09/15/2016 ANURADHA SOTELO, JOVON [...] DOI Ot I25.10 ATHSCL HEART DISEASE OF [place] CORONARY 10/02/2016 ABDIEL SANDOVAL DOI Ot K21.9 [...] MD Ot I25.10 ATHSCL HEART DISEASE OF [place] CORONARY 12/16/2016 INDIA BARROW MD Ot K57.30 DVRTCLOS OF LG INT W/O PERFORATION OR AB 12/16/2016 INDIA BARROW MD Ot K63.5 POLYP OF COLON 12/16/2016 INDIA BARROW MD Ot Z12.11 ENCOUNTER FOR SCREENING FOR MALIGNANT NE 12/16/2016 INDIA BARROW MD Ot Z79.899 OTHER STEWARD RACETRACK (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 THERAPY 12/29/2016 INDIA BARROW MD Ot E78.5 HYPERLIPIDEMIA, UNSPECIFIED 12/29/2016 INDIA BARROW MD Ot I10 ESSENTIAL (PRIMARY) HYPERTENSION 12/29/2016 INDIA BARROW MD Ot I25.10 ATHSCL HEART DISEASE OF [place] CORONARY 12/29/2016 INIDA BARROW MD Ot K57.30 DVRTCLOS OF LG INT W/O PERFORATION OR AB 12/29/2016 INDIA BARROW MD Ot K63.5 POLYP OF COLON 12/29/2016 INDIA BARROW MD Ot Z12.11 ENCOUNTER FOR SCREENING FOR MALIGNANT NE 12/29/2016 INDIA BARROW MD Ot Z79.899 OTHER STEWARD RACETRACK (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 THERAPY 01/06/2017 INDIA BARROW MD Ot E78.5 HYPERLIPIDEMIA, UNSPECIFIED 01/06/2017 INDIA BARROW MD Ot I10 ESSENTIAL (PRIMARY) HYPERTENSION 01/06/2017 INDIA BARROW MD Ot I25.10 ATHSCL HEART DISEASE OF [place] CORONARY 01/06/2017 INDIA BARROW MD Ot K57.30 DVRTCLOS OF LG INT W/O PERFORATION OR AB 01/06/2017 INDIA BARROW MD Ot K63.5 POLYP OF COLON 01/06/2017 INDIA BARROW MD Ot Z12.11 ENCOUNTER FOR SCREENING FOR MALIGNANT NE 01/06/2017 INDIA BARROW MD Ot Z79.899 OTHER STEWARD RACETRACK (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 THERAPY 01/13/2017 INDIA BARROW MD Ot E78.5 HYPERLIPIDEMIA, UNSPECIFIED 01/13/2017 INDIA BARROW MD Ot I10 ESSENTIAL (PRIMARY) HYPERTENSION 01/13/2017 INDIA BARROW MD Ot I25.10 ATHSCL HEART DISEASE OF [place] CORONARY 01/13/2017 INDIA BARROW MD Ot K57.30 DVRTCLOS OF LG INT W/O PERFORATION OR AB 01/13/2017 INDIA BARROW MD Ot K63.5 POLYP OF COLON 01/13/2017 INDIA BARROW MD Ot Z12.11 ENCOUNTER FOR SCREENING FOR MALIGNANT NE 01/13/2017 INDIA BARROW MD Ot Z79.899 OTHER STEWARD RACETRACK (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 THERAPY 01/25/2017 LOLLY SUTTON SECRETARY ADMINISTRATIVE ASSISTANT Ot R92.8 OTH ABN AND INCONCLUSIVE FINDINGS ON DX 01/27/2017 LOLLY SUTTON SECRETARY ADMINISTRATIVE ASSISTANT Ot R92.8 OTH ABN AND INCONCLUSIVE FINDINGS ON DX 02/01/2017 LOLLY SUTTON SECRETARY ADMINISTRATIVE ASSISTANT Ot R92.8 OTH ABN AND INCONCLUSIVE FINDINGS ON DX 02/02/2017 LOLLY SUTTON SECRETARY ADMINISTRATIVE ASSISTANT Ot R92.8 OTH ABN AND INCONCLUSIVE FINDINGS ON DX 03/01/2017 LOLLY SUTTON SECRETARY ADMINISTRATIVE ASSISTANT Ot R92.8 OTH ABN AND INCONCLUSIVE FINDINGS ON DX 03/02/2017 LOLLY SUTTON SECRETARY ADMINISTRATIVE ASSISTANT Ot R92.8 OTH ABN AND INCONCLUSIVE FINDINGS ON DX 03/03/2017 LOLLY SUTTON SECRETARY ADMINISTRATIVE ASSISTANT Ot R92.8 OTH ABN AND INCONCLUSIVE FINDINGS ON DX 04/06/2017 LOLLY SUTTON SECRETARY ADMINISTRATIVE ASSISTANT Ot M81.0 AGE-RELATED OSTEOPOROSIS W/O CURRENT PAT 04/06/2017 LOLLY SUTTON N SECRETARY ADMINISTRATIVE ASSISTANT Ot M81.0 AGE-RELATED OSTEOPOROSIS W/O CURRENT PAT 04/20/2017 LOLLY SUTTON SECRETARY ADMINISTRATIVE ASSISTANT Ot M81.0 AGE-RELATED OSTEOPOROSIS W/O CURRENT PAT 04/22/[address] SECRETARY ADMINISTRATIVE ASSISTANT Ot M11.261 OTHER CHONDROCALCINOSIS, RIGHT KNEE 04/22/2017 LOLLY SUTTON N SECRETARY ADMINISTRATIVE ASSISTANT Ot M11.262 OTHER CHONDROCALCINOSIS, LEFT KNEE 04/28/[address] SECRETARY ADMINISTRATIVE ASSISTANT Ot M11.261 OTHER CHONDROCALCINOSIS, RIGHT KNEE 04/28/[address] SECRETARY ADMINISTRATIVE ASSISTANT Ot M11.262 OTHER CHONDROCALCINOSIS, LEFT KNEE 05/14/[address] SECRETARY ADMINISTRATIVE ASSISTANT Ot M11.261 OTHER CHONDROCALCINOSIS, RIGHT KNEE 05/14/2017 LOLLY SUTTON N SECRETARY ADMINISTRATIVE ASSISTANT Ot M11.262 OTHER CHONDROCALCINOSIS, LEFT KNEE 05/19/[address] SECRETARY ADMINISTRATIVE ASSISTANT Ot M11.261 OTHER CHONDROCALCINOSIS, RIGHT KNEE 05/19/2017 LOLLY SUTTON N SECRETARY ADMINISTRATIVE ASSISTANT Ot M11.262 OTHER CHONDROCALCINOSIS, LEFT KNEE 05/24/[address] SECRETARY ADMINISTRATIVE ASSISTANT Ot M11.261 OTHER CHONDROCALCINOSIS, RIGHT KNEE 05/24/[address] SECRETARY ADMINISTRATIVE ASSISTANT Ot M11.262 OTHER CHONDROCALCINOSIS, LEFT KNEE 06/02/2017 [...] MD Ot I25.10 ATHSCL HEART DISEASE OF [place] CORONARY 06/02/2017 MACY GLYNN MD Ot K21.9 GASTRO-ESOPHAGEAL REFLUX DISEASE WITHOUT 06/02/2017 MACY GLYNN MD, Ot S92.512A DISP FX OF PROXIMAL PHALANX OF LEFT LESS 06/02/2017 MACY GLYNN MD Ot W18.2XXA FALL IN (INTO) SHOWER OR EMPTY BATHTUB, 06/02/2017 MACY GLYNN MD Ot Y92.002 BATHRM OF [facility] SN 06/02/2017 MACY GLYNN MD, Ot Y93.E1 ACTIVITY, PERSONAL BATHING AND SHOWERING 06/02/2017 MACY GLYNN MD Ot Z79.82 STEWARD RACETRACK (CURRENT) USE OF ASPIRIN 06/02/2017 MACY GLYNN [...] MD Ot I25.10 ATHSCL HEART DISEASE OF [place] CORONARY 06/08/2017 MACY GLYNN MD Ot K21.9 GASTRO-ESOPHAGEAL REFLUX DISEASE WITHOUT 06/08/2017 MACY GLYNN MD Ot S92.512A DISP FX OF PROXIMAL PHALANX OF LEFT LESS 06/08/2017 MACY GLYNN MD Ot W18.2XXA FALL IN (INTO) SHOWER OR EMPTY BATHTUB, 06/08/2017 MACY GLYNN MD Ot Y92.002 BATHRM OF [facility] SN 06/08/2017 MACY GLYNN MD, Ot Y93.E1 ACTIVITY, PERSONAL BATHING AND SHOWERING 06/08/2017 MACY GLYNN MD Ot Z79.82 SHELTER (CURRENT) USE OF ASPIRIN 06/08/2017 MACY GLYNN MD Ot Z87.828 PERSONAL HISTORY OF OTH (HEALED) PHYSICA 06/08/2017 MACY GLYNN MD Ot Z90.49 ACQUIRED ABSENCE OF OTHER SPECIFIED PART 07/07/2017 BELINDA VALDEZ MD Ot E04.2 NONTOXIC MULTINODULAR GOITER 07/27/2017 BELINDA VALDEZ MD Ot E04.2 NONTOXIC MULTINODULAR GOITER 07/30/2017 LOLLY SUTTON SECRETARY ADMINISTRATIVE ASSISTANT Ot R92.8 OTH ABN AND INCONCLUSIVE FINDINGS ON DX 08/04/2017 BELINDA VALDEZ MD, Ot E04.2 NONTOXIC MULTINODULAR GOITER 08/05/2017 LOLLY SUTTON SECRETARY ADMINISTRATIVE ASSISTANT Ot R92.8 OTH ABN AND INCONCLUSIVE FINDINGS [...] MD Ot I25.10 ATHSCL HEART DISEASE OF [place] CORONARY 08/24/2017 THERESE FINN MD Ot J42 UNSPECIFIED CHRONIC BRONCHITIS 08/24/2017 THERESE FINN MD Ot K21.9 GASTRO-ESOPHAGEAL REFLUX DISEASE WITHOUT 08/24/2017 THERESE FINN MD Ot R07.89 OTHER CHEST PAIN 08/24/2017 THERESE FINN MD Ot R60.0 LOCALIZED EDEMA 08/24/2017 THERESE FINN MD Ot Z79.52 STEWARD RACETRACK (CURRENT) USE OF SYSTEMIC STER 08/24/2017 THERESE FINN MD Ot Z79.82 SHELTER (CURRENT) USE OF ASPIRIN 08/24/2017 THERESE FINN MD Ot Z87.820 PERSONAL HISTORY OF TRAUMATIC BRAIN INJU 08/24/2017 THERESE FINN MD Ot Z87.891 PERSONAL HISTORY OF NICOTINE DEPENDENCE 08/24/2017 THERESE FINN MD Ot Z88.0 ALLERGY STATUS TO PENICILLIN 08/24/2017 THERESE FINN MD Ot Z91.040 LATEX ALLERGY STATUS 08/26/2017 LOLLY SUTTON SECRETARY ADMINISTRATIVE ASSISTANT Ot R92.8 OTH ABN AND INCONCLUSIVE FINDINGS ON DX 09/06/2017 LOLLY SUTTON SECRETARY ADMINISTRATIVE ASSISTANT Ot M41.9 SCOLIOSIS, UNSPECIFIED 09/06/2017 LOLLY SUTTON SECRETARY ADMINISTRATIVE ASSISTANT Ot M47.816 SPONDYLOSIS W/O MYELOPATHY OR RADICULOPA 09/06/2017 LOLLY SUTTON SECRETARY ADMINISTRATIVE ASSISTANT Ot M79.605 PAIN IN LEFT LEG 09/06/2017 LOLLY SUTTON SECRETARY ADMINISTRATIVE ASSISTANT Ot R90.82 WHITE MATTER DISEASE, UNSPECIFIED 09/06/2017 LOLLY SUTTON SECRETARY ADMINISTRATIVE ASSISTANT Ot W19.XXXA UNSPECIFIED FALL, INITIAL ENCOUNTER 09/06/2017 LOLLY SUTTON SECRETARY ADMINISTRATIVE ASSISTANT Ot M41.9 SCOLIOSIS, UNSPECIFIED 09/06/2017 LOLLY SUTTON SECRETARY ADMINISTRATIVE ASSISTANT Ot M47.816 SPONDYLOSIS W/O MYELOPATHY OR RADICULOPA 09/06/2017 LOLLY SUTTON SECRETARY ADMINISTRATIVE ASSISTANT Ot M79.605 PAIN IN LEFT LEG 09/06/2017 LOLLY SUTTON SECRETARY ADMINISTRATIVE ASSISTANT Ot R90.82 WHITE MATTER DISEASE, UNSPECIFIED 09/06/2017 LOLLY SUTTON SECRETARY ADMINISTRATIVE ASSISTANT Ot W19.XXXA UNSPECIFIED FALL, INITIAL ENCOUNTER 09/16/2017 LOLLY SUTTON SECRETARY ADMINISTRATIVE ASSISTANT Ot R92.8 OTH ABN AND INCONCLUSIVE FINDINGS ON DX 09/22/2017 LOLLY SUTTON SECRETARY ADMINISTRATIVE ASSISTANT Ot M41.9 SCOLIOSIS, UNSPECIFIED 09/22/2017 LOLLY SUTTON SECRETARY ADMINISTRATIVE ASSISTANT Ot M47.816 SPONDYLOSIS W/O MYELOPATHY OR RADICULOPA 09/22/2017 LOLLY SUTTON SECRETARY ADMINISTRATIVE ASSISTANT Ot M79.605 PAIN IN LEFT LEG 09/22/2017 LOLLY SUTTON SECRETARY ADMINISTRATIVE ASSISTANT Ot R90.82 WHITE MAT[place] DISEASE, UNSPECIFIED 09/22/2017 LOLLY SUTTON SECRETARY ADMINISTRATIVE ASSISTANT Ot W19.XXXA UNSPECIFIED FALL, INITIAL ENCOUNTER 09/29/2017 LOLLY SUTTON SECRETARY ADMINISTRATIVE ASSISTANT Ot M41.9 SCOLIOSIS, UNSPECIFIED 09/29/[address] SECRETARY ADMINISTRATIVE ASSISTANT Ot M47.816 SPONDYLOSIS W/O MYELOPATHY OR RADICULOPA 09/29/[address] SECRETARY ADMINISTRATIVE ASSISTANT Ot M79.605 PAIN IN LEFT LEG 09/29/2017 LOLLY SUTTON SECRETARY ADMINISTRATIVE ASSISTANT Ot R90.82 WH[place] MAT[place] DISEASE, UNSPECIFIED 09/29/2017 LOLLY SUTTON SECRETARY ADMINISTRATIVE ASSISTANT Ot W19.XXXA UNSPECIFIED FALL, INITIAL ENCOUNTER 11/11/2017 [...] MD Ot I25.10 ATHSCL HEART DISEASE OF [place] CORONARY 11/11/2017 INDIA BARROW MD Ot K57.30 DVRTCLOS OF LG INT W/O PERFORATION OR AB 11/11/2017 INDIA BARROW MD Ot K63.5 POLYP OF COLON 11/11/2017 INDIA BARROW MD Ot Z12.11 ENCOUNTER FOR SCREENING FOR MALIGNANT NE 11/11/2017 INDIA BARROW MD Ot Z79.899 OTHER SHELTER (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 THERAPY 11/11/2017 INDIA BARROW MD Ot Z01.818 ENCOUNTER FOR OTHER PREPROCEDURAL EXAMIN 11/11/2017 INDIA BARROW MD Ot Z12.11 ENCOUNTER FOR SCREENING FOR MALIGNANT NE 11/11/2017 LOLLY SUTTON SECRETARY ADMINISTRATIVE ASSISTANT Ot R92.8 OTH ABN AND INCONCLUSIVE FINDINGS ON DX 11/11/2017 LOLLY SUTTON SECRETARY ADMINISTRATIVE ASSISTANT Ot M11.261 OTHER CHONDROCALCINOSIS, RIGHT KNEE 11/11/2017 LOLLY SUTTON SECRETARY ADMINISTRATIVE ASSISTANT Ot M11.262 OTHER CHONDROCALCINOSIS, LEFT KNEE 11/11/2017 COURTNEY SOTELO, BELINDA Gomez Ot E04.2 NONTOXIC MULTINODULAR GOITER 11/11/2017 LOLLY SUTTON SECRETARY ADMINISTRATIVE ASSISTANT Ot R92.8 OTH ABN AND INCONCLUSIVE FINDINGS ON DX 11/11/2017 LOLLY SUTTON SECRETARY ADMINISTRATIVE ASSISTANT Ot M41.9 SCOLIOSIS, UNSPECIFIED 11/11/2017 LOLLY SUTTON SECRETARY ADMINISTRATIVE ASSISTANT Ot M47.816 SPONDYLOSIS W/O MYELOPATHY OR RADICULOPA 11/11/2017 LOLLY SUTTON SECRETARY ADMINISTRATIVE ASSISTANT Ot M79.605 PAIN IN LEFT LEG 11/11/2017 LOLLY SUTTON SECRETARY ADMINISTRATIVE ASSISTANT Ot R90.82 WHITE MATTER DISEASE, UNSPECIFIED 11/11/2017 LOLLY SUTTNO SECRETARY ADMINISTRATIVE ASSISTANT Ot W19.XXXA UNSPECIFIED FALL, INITIAL ENCOUNTER 11/15/2017 JUDY BRUNO HALL CLEANER Ot E04.2 NONTOXIC MULTINODULAR GOITER Procedures Code Description Performed By Performed On 37.22 10/06/2010 88.53 10/06/2010 88.56 10/06/2010 77279 ROUTINE VENIPUNCTURE 05/03/2012 36928 CBC 05/03/2012 12225 LIPID PANEL 05/03/2012 10387 CMP 05/03/2012 [id number] GFR CALC (RESULT ONLY) 05/03/2012 72795 TOPIRAMATE (TOPAMAX) 05/05/2012 66480 LEVETIRACETAM (KEPPRA) LEVEL 05/06/2012 Cardiolog Sage Tuttle 11/15/2012 71998 MAMMOGRAM, SCREENING 03/30/2013 34178 CBC 03/30/2013 Obstetric FenBelinda doe 05/02/2013 Results [...] 165 10^3u 142-424 MPV 10.8 FL 9.4-12.4 [place] # 0.84 10^3u 0.0-1.0 RBC 4.01 10^6u 4.04-6.13 [place] % 14.7 % 0-12 RDW 12.8 % [...] Urobilinogen 0.2 0.2-1.0 Urine RBC N0-2 Specific [place] 1.010 1.010-1.020 Urine WBC N3-5 Blood Trace Negative Color Yellow Yellow Squamous Epithelial Cells Trace Bilirubin Negative Negative Site VOID EKG - 06/22/16 04:26 EKG SMR COMPLETE BLOOD COUNT - 06/23/16 05:54 Platelet 153 10^3u 142-424 MPV 10.6 FL 9.4-12.4 [place] # 0.97 10^3u 0.0-1.0 RBC 3.81 10^6u 4.04-6.13 [place] % 11.8 % 0-12 RDW 12.5 % [...] 160 10^3u 142-424 MPV 10.1 FL 9.4-12.4 [place] # 0.65 10^3u 0.0-1.0 RBC 3.89 10^6u 4.04-6.13 [place] % 13.3 % 0-12 RDW 12.6 % [...] 09:09 Strep A Screen NEG Negative Respiratory Panel-[facility] - 06/27/16 11:42 [place] Not Detected [...] Detected Human Rhinovirus 4 ND Not Detected [id number] ND Not Detected FluA-H1-[place] Not Detected [...] 123 10^3u 142-424 MPV 10.8 FL 9.4-12.4 [place] # 0.84 10^3u 0.0-1.0 RBC 4.05 10^6u 4.04-6.13 [place] % 15.9 % 0-12 RDW 13.0 % [...] A AND B ANTIGENS BY IA [facility] Comprehensive metabolic panel - 08/24/17 12:45 Serum [...] plasma urea nitrogen/creatinine mass ratio 14 [facility] Serum or plasma creatinine measurement with calculation of estimated glomerular filtration rate 40 [facility] Serum or plasma glucose measurement (mass/volume) 82 [...] Status Pt. Type Provider Facility Loc./Unit Complaint [id number] 09/20/2014 16:35:00 09/20/2014 23:59:59 CLS Outpatient LARISA SOTELO, VANESSA [id number] 05/18/2014 14:27:00 05/18/2014 23:59:59 CLS Outpatient VANESSA PERES MD [id number] 02/02/2014 11:18:00 02/02/2014 23:59:59 CLS Outpatient VANESSA PERES MD [id number] 08/21/2013 07:12:00 08/21/2013 23:59:59 CLS Outpatient JADEN CRAFTAUGUSTUS [id number] 05/22/2013 09:45:00 05/22/2013 23:59:59 CLS Outpatient JADEN CRAFTAUGUSTUS [id number] 05/16/2013 10:13:00 05/16/2013 23:59:59 CLS Outpatient STANLEY AUGUSTUS CRAFT [id number] 05/02/2013 09:47:00 05/02/2013 23:59:59 CLS Outpatient VANESSA PERES MD [id number] 03/30/2013 13:07:00 03/30/2013 23:59:59 CLS Outpatient VANESSA PERES MD [id number] 08/26/2012 10:02:00 08/26/2012 23:59:59 CLS Outpatient VANESSA PERES MD [id number] 08/16/2012 13:36:00 08/16/2012 23:59:59 CLS Outpatient [id number] 07/07/2012 14:39:00 07/07/2012 23:59:59 [place] [id number] 05/03/2012 10:07:00 05/03/2012 23:59:59 CLS Outpatient [id number] 11/10/2012 13:55:00 Document Registration [id number] 10/21/2017 10:29:00 10/21/2017 23:59:00 DIS Outpatient Dudley English [id number] 04/07/2016 09:00:00 05/12/2016 14:25:00 DIS Outpatient GENNY CHAVEZ [id number] 03/25/2016 18:40:00 Document Registration [id number] 11/12/2017 10:23:00 11/12/2017 23:59:59 CLS Outpatient JUDY BRUNO [facility] RAD MUTLINODULAR GOITER [id number] 09/02/2017 09:51:00 09/02/2017 23:59:59 CLS Outpatient LOLLY SUTTON APRN [facility] RAD R51,M54.5,M79.604 [id number] 08/24/2017 12:29:00 08/24/2017 15:59:00 DIS Emergency HUMA SOTELO, THERESE Post [facility] ER CP,DIZZINESS,SWEATY [id number] 08/04/2017 13:13:00 08/04/2017 23:59:59 CLS Outpatient LOLLY SUTTON SECRETARY ADMINISTRATIVE ASSISTANT [facility] RAD R92.8 ABN MAMMO [id number] 07/06/2017 12:35:00 07/06/2017 23:59:59 CLS Outpatient COURTNEY SOTELO, BELINDA Gomez [facility] RAD THYROID NODULES [id number] 06/02/2017 06:03:00 06/02/2017 09:36:00 DIS Emergency GRETTA SOTELO, MACY Oleary [facility] ER FALL [id number] 04/22/2017 08:13:00 04/22/2017 23:59:59 CLS Outpatient LOLLY SUTTON SECRETARY ADMINISTRATIVE ASSISTANT [facility] RAD M81.0 AGE RELATED OSTEOPOROSIS WO CURRENT PATHOLOG [id number] 02/01/2017 08:01:00 02/01/2017 23:59:59 CLS Outpatient LOLLY SUTTON SECRETARY ADMINISTRATIVE ASSISTANT [facility] RAD R92.8 [id number] 12/07/2016 07:22:00 12/07/2016 23:59:59 CLS Outpatient INDIA BARROW MD [facility] ENDO SCREENING [id number] 12/03/2016 05:56:00 12/03/2016 23:59:59 CLS Outpatient INDIA BARROW MD [facility] PREOP SCREENING COLONOSCOPY [id number] 10/05/2016 08:06:00 10/05/2016 23:59:59 CLS Outpatient ANURADHA SOTELO, JOVON Post [facility] RAD ABNORMAL MAMMO [id number] 09/30/2016 20:33:00 10/02/2016 11:20:00 DIS Inpatient DADA SANDOVAL DO [facility] 4TH RUQ PAIN;DEHYDRATION; ELECTROLYTE IMBALANCE; [id number] 08/26/2016 20:20:00 08/26/2016 23:20:00 DIS Emergency SOLIS PIRES MD [facility] ER NAUSEA [id number] 08/24/2016 14:39:00 08/24/2016 23:59:59 CLS Outpatient JOVON LING MD [facility] RAD SCREENING [id number] 08/03/2016 08:33:00 08/03/2016 11:31:00 DIS Emergency FABIOLA HERNANDEZ DO [facility] ER FALL/HEAD PAIN [id number] 06/18/2016 05:48:00 06/18/2016 23:59:59 CLS Outpatient INDIA BARROW MD [facility] PREOP DIARRHEA [id number] 06/10/2016 20:09:00 06/10/2016 23:15:00 DIS Emergency RYAN VALENZUELA SECRETARY ADMINISTRATIVE ASSISTANT [facility] ER SOB [id number] 05/01/2016 05:38:00 05/01/2016 14:13:00 DIS Outpatient INDIA BARROW MD [facility] PREOP SCREENING [id number] 10/13/2015 21:41:00 10/14/2015 20:10:00 DIS Inpatient RAE BUTLER MD [facility] 4TH CHEST PAIN [id number] 06/07/2015 14:46:00 06/07/2015 23:59:59 CLS Outpatient BELINDA RIVERA DO [facility] RAD SCREENING [id number] 09/07/2013 07:47:00 09/07/2013 23:59:59 CLS Outpatient ROZ SOTELO FACCTEAGAN FACP CCDS [facility] RAD ABD BLOATING [id number] 08/02/2013 07:34:00 08/02/2013 23:59:59 CLS Outpatient INGA DIEGO MD [facility] RAD CAD,GERD,HTN [id number] 07/21/2013 20:15:00 07/22/2013 11:30:00 DIS Inpatient AUGUSTUS STANLEY DO [facility] CSD CHEST PAIN [id number] 05/24/2013 09:43:00 05/24/2013 23:59:59 CLS Outpatient BELINDA RIVERA DO [facility] RAD PELVIC PAIN, SCREENING [id number] 12/07/2017 09:08:00 PEN Preadmit LOLLY SUTTON APRN [facility] REHAB GENERAL WEK[place]ESS;ABNORMAL GAIT;PAIN IN R LEG [id number] 10/05/2015 03:05:00 Document Registration [id number] 10/17/2012 11:00:00 Document Registration [id number] 07/18/2012 10:37:00 Document Registration [id number] 01/29/2012 08:28:00 Document Registration [id number] 10/21/2011 12:49:00 Document Registration [id number] 06/18/2011 15:26:00 Document Registration [id number] 06/16/2011 08:42:00 Document Registration [id number] 04/06/2011 10:15:00 Document Registration [id number] 10/06/2010 12:25:00 Document Registration [id number] 05/07/2010 08:07:00 Document Registration [id number] 09/28/2017 14:00:00 09/28/2017 23:59:59 CLS Outpatient LARISA SOTELO, VANESSA HARDINTravis [facility] [id number] 10/24/2017 00:06:00 Document Registration [id number] 06/18/2016 16:30:00 07/02/2016 11:10:00 DIS Inpatient NELLY SOTELO, LEI [facility]es [facility]
[2017-11-24 22:00] VITALS: BP 156/71
[2017-11-24] MEDS ORDERED: ALPRAZolam 0.5 MG (XANAX) TAB PO PRN (22:30)
[2017-11-24] MEDS ORDERED: ONDANSETRON 4 MG/2 ML (SDV) Z0FRAN IV PRN (22:30)
[2017-11-24] MEDS ORDERED: morphine INJ 4 MG/ML 1 ML (VIAL/SYRINGE) IV PRN (22:30)
[2017-11-24] MEDS ORDERED: ACETAMINOPHEN 500 MG TAB (TYLENOL) PO PRN (22:30)
[2017-11-24] MEDS ORDERED: NITROGLYCERIN 0.4 MG SL TABS BTL 25'S SL PRN (22:30)
[2017-11-25] MEDS ORDERED: NITROGLYCERIN 2% OINT 1 GM UNIT DOSE PACKET TOP SCH (02:00)
--- NOTE | 2017-11-25 07:45 | Consultation-Cardiology ---
HPI-Cardiology Cardiology Consultation: Date of Consultation 11/25/17 Time Seen by Provider: 08:00 Date of Admission Attending Physician Addy Farr MD Admitting Physician Addy Farr MD Consulting Physician TEAGAN COURTNEY MD, MA, FACP, FACC, [facility] HPI: Chief Complaint: Chest discomfort, pain in the head, abdominal pain, back pain, and bilat leg pain 67 yo woman with chronic gen pain. Has been feeling these pain with increasing intensity and frequency. Pain in the head has been sharp and severe. It is not a headache, she states. Chest pain are L or R parasternal, generally sharp, generally mod to mod-severe, w/o aggravating or relieving factors, w/o any distinct radiation, present several times a day, lasting seconds to min, somewhat more intense in the recent past. Has been having abd pains that are generalized and sometimes associated with a feeling of nausea. No vomiting or diarrhea. Has chronic bilat leg pains that may or may not be related to exertion. No leg discoloration. Chronic bilateral leg swelling for which she takes diuretics without any particular benefit. States cannot wear compression stocking because these cause abdomen and chest to hurt. Does not report palp or syncope. Has gen tiredness and fatigue. Does not report recent wgt gain or wgt loss. Denies fever or chills Review of Systems-Cardiology Review of Systems Constitutional: As described under HPI Eyes: No vision change Ears/Nose/Throat: No ear discharge, No nasal drainage Respiratory: As described under HPI Cardiovascular: As described under HPI Gastrointestinal: As described under HPI Genitourinary: No dysuria, No hematuria Musculoskeletal: back pain (chronic), joint pain (chronic) Skin: No rash, No ulcerations Psychiatric/Neurological: No seizure, No focal weakness, No syncope Hematologic: No bleeding abnormalities TGC-Bbudnf-Yccamp Hx Patient Social History Alcohol Use: Denies Use Recreational Drug Use: No Smoking Status: Former Smoker (SMOKED 1 PPD, DOES NOT REMEMBER WHEN SHE QUIT) Former smoker/When Quit: Oct 17, 2012 Type Used: Cigarettes Recent Foreign Travel: No Recent Infectious Disease Expo: No Hospitalization with Isolation: Denies Physical Abuse Screen: No Sexual Abuse: No Immunizations Up To Date Tetanus Booster (TDap): Unknown Date of Influenza Vaccine: Apr 04, 2016 Past Medical History PMH As described under Assessment. Family Medical History Family Medical History: She reports her mother had CAD. She does not report any premature CAD or SCD. Family History: Cancer 03 FATHER (PANCREATIC CANCER) 09 BROTHER ( AT AGE 10) Family history: Cardiovascular disease 03 MOTHER Family history: Diabetes mellitus 03 MOTHER Heart disease 03 MOTHER Allergies and Home Medications Allergies Coded Allergies: Penicillins (Verified Allergy, Mild, 07/22/13) latex (Verified Allergy, Mild, 07/22/13) Home Medications Aspirin 81 Mg Tablet.dr, 81 MG PO DAILY, (Reported) Atorvastatin Calcium 80 Mg Tablet, 80 MG PO DAILY, (Reported) Calcium Carbonate/Vitamin D3 1 Each Tablet, 1 TAB PO BID, (Reported) Clonazepam 0.5 Mg Tablet, 0.5 MG PO HS, (Reported) Donepezil HCl 10 Mg Tablet, 10 MG PO HS, (Reported) Fluconazole 200 Mg Tablet, 200 MG PO Q48H, (Reported) TAKE ON ODD DAYS RELATED TO BACTERIAL INFECTION Folic Acid 1 Mg Tablet, 1 MG PO DAILY, (Reported) Furosemide 40 Mg Tablet, 40 MG PO DAILY, (Reported) Hydrocodone Bit/Acetaminophen 1 Each Tablet, 1 TAB PO Q4H PRN for MODERATE PAIN Prescribed by: DADA SANDOVAL on 10/02/16 1120 Ketoconazole 120 Ml Shampoo, TOP DAILY, (Reported) DAILY X 2 WEEKS THEN TWICE WEEKLY Lamotrigine 200 Mg Tablet, 200 MG PO BID, (Reported) Levetiracetam 750 Mg Tablet, 1,500 MG PO BID, (Reported) TAKES 2 (750MG) TABLETS Meclizine HCl 25 Mg Tablet, 25 MG PO Q6H PRN for DIZZINESS, (Reported) Melatonin/Pyridoxine 1 Each Tablet, 3 MG PO HS, (Reported) Meloxicam 15 Mg Tablet, 15 MG PO DAILY, (Reported) Memantine HCl 5 Mg Tablet, 5 MG PO DAILY, (Reported) Oxybutynin Chloride 15 Mg Tab.er.24, 15 MG PO HS, (Reported) Potassium Chloride 20 Meq Tablet.er, 20 MEQ PO DAILY Prescribed by: DADA SANDOVAL on 10/02/16 112 Prednisolone Acetate 5 Ml Drops.susp, 1 DROP OU Q48H, (Reported) Risperidone 1 Mg Tablet, 1 MG PO DAILY, (Reported) Rivastigmine 9.5 Mg Patch, 9.5 MG TD DAILY, (Reported) Topiramate 200 Mg Tablet, 200 MG PO BID, (Reported) Trazodone HCl 50 Mg Tablet, 50 MG PO HS, (Reported) Triamcinolone Acet 15 Gm Cr, TOP BID, (Reported) Zolpidem Tartrate 5 Mg Tablet, 5 MG PO HS, (Reported) Patient Home Medication List Home Medication List Reviewed: Yes Physical Exam-Cardiology Physical Exam Vital Signs/I&O 11/24/17 11/24/17 20:33 22:00 Pulse 62 58 Resp 19 20 B/P (MAP) 177/83 (114) 156/71 Pulse Ox 97 95 O2 Delivery Room Air Room Air Capillary Refill : Less Than 3 Seconds Constitutional: AAO x 3, well-developed, well-nourished HEENT: EOMI, hearing is well preserved; No xanthelasmas are seen Neck: No carotid bruit; carotid pulses are 2 + bilaterally Respiratory: No accessory muscle use; lungs clear to percussion, lungs clear to auscultation Cardiovascular: regular rate-rhythm, S1 and S2, systolic murmur (faint TAWNYA at card base) Gastrointestinal: No tender; soft; No guarding, No rebound; audible bowel sounds Extremities: swelling (mild to mod bilat pitting and nonpitting edema of the legs, chronic); No clubbing, No cyanosis Neurologic/Psychiatric: oriented x 3, grossly intact, power is 5/5 both on sides Skin: No rash on exposed areas, No ulcerations on exposed areas Data Review Labs Laboratory Tests 11/24/17 20:35: White Blood Count 7.1, Red Blood Count 4.01L, Hemoglobin 13.0, Hematocrit 39, Mean Corpuscular Volume 98, Mean Corpuscular Hemoglobin 32, Mean Corpuscular Hemoglobin Concent 33, Red Cell Distribution Width 12.5, Platelet Count 228, Mean Platelet Volume 9.9, Neutrophils (%) (Auto) 50, Lymphocytes (%) (Auto) 27, Monocytes (%) (Auto) 19H, Eosinophils (%) (Auto) 3, Basophils (%) (Auto) 0, Neutrophils # (Auto) 3.6, Lymphocytes # (Auto) 1.9, Monocytes # (Auto) 1.4H, Eosinophils # (Auto) 0.2, Basophils # (Auto) 0.0, Neutrophils % (Manual) 60, Lymphocytes % (Manual) 27, Monocytes % (Manual) 12, Eosinophils % (Manual) 1, Basophils % (Manual) 0, Band Neutrophils 0, Blood Morphology Comment NORMAL, Prothrombin Time 12.5, INR Comment 0.9, Activated Partial Thromboplast Time 28, Sodium Level 138, Potassium Level 3.7, Chloride Level 103, Carbon Dioxide Level 23, Anion Gap 12, Blood Urea Nitrogen 23H, Creatinine 1.65H, Estimat Glomerular Filtration Rate 31, BUN/Creatinine Ratio 14, Glucose Level 89, Calcium Level 9.2 , Magnesium Level 2.3, Total Bilirubin 0.4, Aspartate Amino Transf (AST/SGOT) 29 , Alanine Aminotransferase (ALT/SGPT) 23, Alkaline Phosphatase 141H, Total Creatine Kinase 127, Creatine Kinase MB 1.3, Troponin I < 0.30, B-Type Natriuretic Peptide < 10.0, Total Protein 7.6, Albumin 4.2, Amylase Level 65, Lipase 32 Laboratory Tests 11/24/17 20:35 A/P-Cardiology Assessment/Admission Diagnosis Gen body pain, including chest discomfort, chronic. No evidence of ACS on serial card enzymes and ECGs of today and yesterday (has had 2 presentations to the ER) Acute renal insufficiency, likely related to meds (diuretics and NSAIDs) Multinodular goiter on thyroid u/s ordered by Dr Ribeiro and done on 07/06/17 Moderate coronary artery disease on cardiac catheterization of October 2010, clinically stable. MPI of showed no evidence of any significant myocardial ischemia or infarction. Normal regional wall motion. LVEF of 64% Echo of 10-14-15 is reported to have shown LVEF 60%, mild TR& MR and PASP 30 mmHg. No evidence of any significant valvular stenosis History of borderline hypertension, currently controlled. Chronic asymptomatic sinus bradycardia. Chronic seizure disorder. Chronic tobacco use - she reports she quit over a year ago Hyperlipidemia followed by Dr. 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 Discussion and Recomendations * D/c diuretics and NSAIDs (but do NOT discontinue aspirin) * Ok to d/c from cardiac standpoint. Outpatient f/u advised * Monitor labs periodically * Management of renal insuff and noncardiac chest pain and other pains is with the Medical Service TEAGAN COURTNEY MD [facility] November 25, 2017 07:45
[2017-11-25] MEDS ORDERED: ASPIRIN E.C. 325 MG (ECOTRIN) TABLET PO SCH (09:00)
--- NOTE | 2017-11-25 10:00 | History & Physical-Hospitalist ---
History of Present Illness HPI/Chief Complaint Patient not seen due to leaving AMA within 5 minutes before arriving to her room. Date Seen 11/25/17 Time Seen by Provider: 00:00 Attending Physician Addy Farr MD PCP Addy Farr MD Referring Physician Date of Admission November 24, 2017 at 21:46 Home Medications & Allergies Home Medications Reviewed patient Home Medication Reconciliation performed by pharmacy medication reconciliations bone density technician and/or nursing. Patients Allergies have been reviewed. Allergies Allergies Coded Allergies Penicillins (Verified Allergy, Mild, 07/22/13) latex (Verified Allergy, Mild, 07/22/13) Past Almqsmz-Iqwpun-Eqpfpg Hx Past Med/Social Hx: Reviewed Nursing Past Med/Soc Hx Patient Social History Alcohol Use: Denies Use Recreational Drug Use: No Smoking Status: Former Smoker (SMOKED 1 PPD, DOES NOT REMEMBER WHEN SHE QUIT) Type Used: Cigarettes Physical Abuse Screen: No Sexual Abuse: No Recent Foreign Travel: No Contact w/other who traveled: No Recent Hopitalizations: No (PSYCH EVALUATIOIN 06/19) Recent Infectious Disease Expo: No Immunizations Up To Date Tetanus Booster (TDap): Unknown Date of Influenza Vaccine: Apr 04, 2016 Seasonal Allergies Seasonal Allergies: No Past Medical History Surgeries: Gallbladder, Lumpectomy Currently Using CPAP: No Cardiac: Chronic Edema/Swelling, Coronary Artery Disease, High Cholesterol, Hypertension, Rheumatic Fever Neurological: Concussion, Dementia, Seizure Disorder, Traumatic Brain Injury, Vertigo Reproductive: No Sexually Transmitted Disease: No HIV/AIDS: No Female Reproductive Disorders: Denies Gastrointestinal: Gastroesophageal Reflux, Chronic Constipation, Gall Bladder Disease Musculoskeletal: Arthritis Loss of Vision: Bilateral Hearing Impairment: Denies Psychosocial: Sleep Difficulties, Bipolar Skin/Integumentary: Psoriasis History of Blood Disorders: No Family History Cancer 03 FATHER (PANCREATIC CANCER) 09 BROTHER ( AT AGE 10) Family history: Cardiovascular disease 03 MOTHER Family history: Diabetes mellitus 03 MOTHER Heart disease 03 MOTHER No Pertinent Family Hx Review of Systems Constitutional: other (Patient not seen due to leaving AMA within 5 minutes before arriving to her room.) Physical Exam Physical Exam Vital Signs Vital Signs - First Documented 11/24/17 20:33 Pulse 62 Resp 19 B/P (MAP) 177/83 (114) Pulse Ox 97 O2 Delivery Room Air Capillary Refill : Less Than 3 Seconds General Appearance: Other (Patient not seen due to leaving AMA within 5 minutes before arriving to her room.) Results Results/Procedures Labs Laboratory Tests 11/24/17 20:35 Patient resulted labs reviewed. Assessment/Plan Admission Diagnosis Patient not seen due to leaving AMA within 5 minutes before arriving to her room. Admission Status: DADA Mckay DO November 25, 2017 10:00
== END 2017-11-24 23:59 | disposition left against medical advice (07) ==
LOC: EDUNIT# 20:31 → ER 20:32 → ICU 21:46 → UNDODISOB 23:59 → ICU 23:59
PROVIDERS: ADMIT Internal Medicine; ATTEND Internal Medicine
DX: R07.89 Other chest pain (principal); G89.29 Other chronic pain; N28.9 Disorder of kidney and ureter, unspecified; I25.10 Atherosclerotic heart disease of native coronary artery without angina pectoris; I10 Essential (primary) hypertension; E78.5 Hyperlipidemia, unspecified; R60.0 Localized edema; E04.2 Nontoxic multinodular goiter; G40.909 Epilepsy, unspecified, not intractable, without status epilepticus; F03.90 Unspecified dementia, unspecified severity, without behavioral disturbance, psychotic disturbance, mood disturbance, and anxiety; K21.9 Gastro-esophageal reflux disease without esophagitis; K59.09 Other constipation; Z53.21 Procedure and treatment not carried out due to patient leaving prior to being seen by health care provider; Z87.891 Personal history of nicotine dependence; Z79.82 Long term (current) use of aspirin; Z79.899 Other long term (current) drug therapy
CPT/HCPCS: 36415; 71045; 80053; 82150; 82550; 82553; 83690; 83735; 83880; 84484; 85007; 85027; 85610; 85730; 93005; 93041; 96374

== ENCOUNTER 2017-11-25 01:23 | Emergency (ER) | payer MEDICARE, BC, MEDICAID ==
[~2017-11-25] VITALS: Ht 162.6 cm; Wt 102.4 kg
--- OUTSIDE RECORDS SUMMARY | 2017-11-25 01:29 | XMS REPORT | Clinical Summary ---
Author Author [facility] Organization [facility] Address Unknown Phone Unavailable Care Team Providers Care Taker Away Name Role Phone Andres Jo MD [address]apati MD Unavailable Lex Dunne MD, [facility] Unavailable Heavenly Artis MD Unavailable Lori Mistry [...] in the Health Information Management department at [phone] for further assistance in locating additional records.[facility] Allergies Active Allergy Reactions Severity Noted [...] Problem Noted Date PEG (acute kidney injury) ([facility]) 05/19/2016 Disorientation 05/19/2016 Dementia in conditions classified elsewhere without behavioral disturbance 10/11/2007 Other screening mammogram 07/22/2007 Chest pain 07/21/2007 Seizure disorder ([facility]) Brain injury ([facility]) Dementia Psychosis GERD (gastroesophageal reflux disease) Restless leg syndrome Social History Tobacco Use Types Packs/Day Years Used Date Current Every Day Smoker Alcohol Use Drinks/Week oz/Week Comments No Sex Assigned at Date Recorded Not on file Last Filed Vital Signs Vital Sign Reading Time Taken Blood Pressure 135/52 05/19/2016 8:00 AM [facility] Pulse 56 05/18/2016 4:43 PM [facility] READER Temperature 36.4 C (97.6 F) 05/19/2016 8:00 AM MIND READER Respiratory Rate - - Oxygen Saturation 97% 05/19/2016 8:00 AM MIND READER Inhaled Oxygen - - Concentration Weight 95.3 kg (210 lb) 05/18/2016 4:43 PM MIND READER Height 162.6 cm (5' 4") 05/18/2016 4:43 PM MIND READER Body Mass Index 36.05 05/18/2016 4:43 PM MIND READER Plan of Treatment Health Maintenance Due Date Last Done Comments HEPATITIS C SCREENING 1951 PHYSICAL (COMPREHENSIVE) 1958 EXAM PERTUSSIS VACCINE 1962 TETANUS VACCINE 1968 COLORECTAL CANCER 2001 SCREENING BREAST CANCER SCREENING 07/22/2008 07/22/2007, 07/22/2007 SHINGLES VACCINE 2011 OSTEOPOROSIS SCREENING 2016 PREVNAR/PNEUMOVAX (#1) 2016 INFLUENZA VACCINE 04/04/2018 Results Not on filefrom Last 3 Months
--- NOTE | 2017-11-25 01:30 | ED Chest Pain ---
General Stated Complaint: CP,MARITNEZ,LEFT ARM & LEG PAIN Source: patient, old records (NAIMA VILLEDA DO) History of Present Illness Date Seen by Provider: November 25, 2017 Time Seen by Provider: 01:28 Initial Comments PT ARRIVES VIA [facility] FROM [facility] PT WAS ADMITTED EARLIER THIS EVENING FOR CHEST PAIN, THEN PT SIGNED OUT AMA SOON SHE GOT UP TO ICU--PT DIDN'T LIKE THE MONITOR LEADS, OR BP CUFF OR PULSE OX ON, AND DID NOT WANT THE NITROPASTE ON HER CHEST. PT NOW IS BACK WITH CHEST PAIN AND STATES SHE "HURTS ALL OVER" --STATES HER CHEST HURTS, HER STOMACH HURTS AND HER HEAD HURTS SEE PREVIOUS CHART FROM EARLIER THIS EVENING (NAIMA VILLEDA DO) Allergies and Home Medications Allergies Coded Allergies: Penicillins (Verified Allergy, Mild, 07/22/13) latex (Verified Allergy, Mild, 07/22/13) Home Medications Aspirin 81 Mg Tablet.dr, 81 MG PO DAILY, (Reported) Atorvastatin Calcium 80 Mg Tablet, 80 MG PO DAILY, (Reported) Calcium Carbonate/Vitamin D3 1 Each Tablet, 1 TAB PO BID, (Reported) Clonazepam 0.5 Mg Tablet, 0.5 MG PO HS, (Reported) Donepezil HCl 10 Mg Tablet, 10 MG PO HS, (Reported) Fluconazole 200 Mg Tablet, 200 MG PO Q48H, (Reported) TAKE ON ODD DAYS RELATED TO BACTERIAL INFECTION Folic Acid 1 Mg Tablet, 1 MG PO DAILY, (Reported) Furosemide 40 Mg Tablet, 40 MG PO DAILY, (Reported) Hydrocodone Bit/Acetaminophen 1 Each Tablet, 1 TAB PO Q4H PRN for MODERATE PAIN Prescribed by: DADA SANDOVAL on 10/02/16 1120 Ketoconazole 120 Ml Shampoo, TOP DAILY, (Reported) DAILY X 2 WEEKS THEN TWICE WEEKLY Lamotrigine 200 Mg Tablet, 200 MG PO BID, (Reported) Levetiracetam 750 Mg Tablet, 1,500 MG PO BID, (Reported) TAKES 2 (750MG) TABLETS Meclizine HCl 25 Mg Tablet, 25 MG PO Q6H PRN for DIZZINESS, (Reported) Melatonin/Pyridoxine 1 Each Tablet, 3 MG PO HS, (Reported) Meloxicam 15 Mg Tablet, 15 MG PO DAILY, (Reported) Memantine HCl 5 Mg Tablet, 5 MG PO DAILY, (Reported) Oxybutynin Chloride 15 Mg Tab.er.24, 15 MG PO HS, (Reported) Potassium Chloride 20 Meq Tablet.er, 20 MEQ PO DAILY Prescribed by: DADA SANDOVAL on 10/02/16 1120 Prednisolone Acetate 5 Ml Drops.susp, 1 DROP OU Q48H, (Reported) Risperidone 1 Mg Tablet, 1 MG PO DAILY, (Reported) Rivastigmine 9.5 Mg Patch, 9.5 MG TD DAILY, (Reported) Topiramate 200 Mg Tablet, 200 MG PO BID, (Reported) Trazodone HCl 50 Mg Tablet, 50 MG PO HS, (Reported) Triamcinolone Acet 15 Gm Cr, TOP BID, (Reported) Zolpidem Tartrate 5 Mg Tablet, 5 MG PO HS, (Reported) Patient Home Medication List Home Medication List Reviewed: Yes (THERESE FINN MD) Review of Systems Constitutional: dizziness Respiratory: Shortness of Air Cardiovascular: Chest Pain Gastrointestinal: See HPI, Abdominal Pain Musculoskeletal: other (CHRONIC GENERALIZED PAIN, ESPECIALLY KNEES AND LEGS. ) Psychiatric/Neurological: See HPI, Headache (NAIMA VILLEDA DO) Past Awseohe-Fzvbkq-Hfzcnk Hx Patient Social History Alcohol Use: Denies Use Recreational Drug Use: No Smoking Status: Former Smoker (1 PPD, DOES NOT KNOW WHEN SHE QUIT) Type Used: Cigarettes Recent Foreign Travel: No Contact w/Someone Who Travel: No Recent Hopitalizations: No (PSYCH EVALUATIOIN 06/19) (NAIMA VILLEDA DO) Immunizations Up To Date Tetanus Booster (TDap): Unknown Date of Influenza Vaccine: Apr 04, 2016 (NAIMA VILLEDA DO) Seasonal Allergies Seasonal Allergies: No (NAIMA VILLEDA DO) Past Medical History Surgeries: Yes Gallbladder, Lumpectomy Respiratory: Yes (BRONCHITIS) Chronic Bronchitis Currently Using CPAP: No Cardiac: Yes Chronic Edema/Swelling, Coronary Artery Disease, High Cholesterol, Hypertension , Rheumatic Fever Neurological: Yes (ENCEPHALITIS) Concussion, Dementia, Seizure Disorder, Traumatic Brain Injury, Vertigo Reproductive Disorders: No Female Reproductive Disorders: Denies Sexually Transmitted Disease: No HIV/AIDS: No Genitourinary: Yes (CHRONIC RENAL INSUFFICIENCY; BLADDER CONTROL ISSUES?) Gastrointestinal: Yes ("STOMACH DISCOMFORT"--POST-CHOLECYSTECTOMY SYNDROME) Gastroesophageal Reflux, Chronic Constipation, Gall Bladder Disease Musculoskeletal: Yes Arthritis Endocrine: No Loss of Vision: Bilateral Hearing Impairment: Denies Cancer: No Psychosocial: Yes Sleep Difficulties, Bipolar Integumentary: Yes Psoriasis Blood Disorders: No (NAIMA VILLEDA DO) Family Medical History Cancer 03 FATHER (PANCREATIC CANCER) 09 BROTHER ( AT AGE 10) Family history: Cardiovascular disease 03 MOTHER Family history: Diabetes mellitus 03 MOTHER Heart disease 03 MOTHER No Pertinent Family Hx (NAIMA VILLEDA DO) Physical Exam Vital Signs Vital Signs - First Documented 11/25/17 01:28 Temp 96.0 Pulse 71 Resp 13 B/P (MAP) 127/54 (78) O2 Delivery Room Air (THERESE FINN MD) Vital Signs Capillary Refill : (NAIMA VILLEDA DO) General Appearance: No Apparent Distress, Obese, Other (C/O PAIN WHEREVER SHE IS TOUCHED, INCLUDING C/O PAIN WHEN EKG TABS ARE PLACED ON SKIN, WHEN TOURNIQUET IS PLACED, ETC. ) Neck: Full Range of Motion, Normal Inspection, Non Tender, Supple Respiratory: Rales (DIFFUSE RALES BILATERALLY), Other (MILDLY DYSPENIC ) Cardiovascular: Regular Rate, Rhythm (HEART SOUNDS DISTANT, UNABLE TO AUSCULTATE IF MURMUR IS PRESENT), No JVD Gastrointestinal: Non Tender, Soft Extremity: Pedal Edema (3+ BILATERALLY WITH FAINT DIFFUSE ERYTHEMA TO BILATERAL LOWER LEGS. 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, Other (SLIGHTLY ANXIOUS AND AGITATED, GRIMACING) Skin: Normal Color, Warm/Dry (NAIMA VILLEDA DO) Progress/Results/Core Measures Results/Orders Lab Results Laboratory Tests Test 11/25/17 01:44 11/25/17 04:42 Range/Units Troponin I < 0.30 < 0.30 <0.30 NG/ML (THERESE FINN MD) Medications Given in ED Current Medications Medications Dose Ordered Sig/Cory Route Start Time Stop Time Status Last Admin Dose Admin Lorazepam 1 mg ONCE ONCE IVP 11/25/17 01:45 11/25/17 02:51 DC 11/25/17 02:03 1 MG Pantoprazole 40 mg ONCE ONCE IV 11/25/17 03:15 11/25/17 03:16 DC 11/25/17 03:16 40 MG (THERESE FINN MD) Vital Signs/I&O 11/25/17 11/25/17 01:28 01:28 Temp 96.0 Pulse 71 Resp 13 B/P (MAP) 127/54 (78) O2 Delivery Room Air Room Air (THERESE FINN MD) Progress Progress Note : Progress Note PT VERY ARGUMENTATIVE AND NOT WANTING ANY MEDICATIONS, AND VERY RELUCTANTLY AGREEING TO TESTS STATES "I JUST WANT THE PROBLEM FIXED" EXPLAINED MULTIPLE TIMES IN MULTIPLE WAYS BY MYSELF AND NURSING STAFF THE NEED TO DO ADDITIONAL TESTS, AND STRONGLY ADVISE THAT SHE TAKE THE MEDICATIONS TO HELP HER FEEL BETTER, SHE CONTINUES TO COMPLAIN OF "HURTING ALL OVER" EVENTUALLY AFTER REPEATED EXPLANATIONS TO PT TO WHY SHE WOULD BENEFIT FROM TAKING MEDICATION FOR PAIN AND MEDICATION TO RELAX HER AND HELP HER SLEEP, PT AGREED TO FENTANYL AND ATIVAN AND PT WENT TO SLEEP PT HAVING ACID REFLUX SYMPTOMS WHEN LAYING ON HER BACK. PT GIVEN PROTONIX AND TURNED ON HER SIDE AND THOSE SYMPTOMS IMPROVED. PT RESTED PERIODICALLY DURING ER STAY PT C/O LEG PAIN --GIVEN FENTANYL 0600--PT SOMEWHAT RESTLESS, AND OFFERED ADDITIONAL MEDICATION FOR PAIN OR ANXIETY AND PT DECLINES. 0640--PT BECOMING MORE RESTLESS AND ARGUMENTATIVE AGAIN. OFFERED PAIN MEDICATION , ANXIETY MEDICATION. OFFERED TO GET HER BREAKFAST AND SHE DECLINES. SHE ALSO NOW STATES SHE IS NAUSEATED AND HAS BEEN ALL NIGHT --PT HAS NEVER MENTIONED THIS. OFFERED NAUSEA MEDICATION AND PT REFUSES. PT HAS NOW QUESTIONED IF THE FOOD WAS POISONED HERE 0705--PT WITH INCREASING CONFUSION, ARGUMENTATIVE, MANIPULATIVE. AGAIN OFFERED MULTIPLE THINGS FOR PT COMFORT--MEDICATIONS, BLANKETS, FOOD, DRINKS, REPOSITIONING, ETC. AND PT REFUSES FOOD AND MEDICATIONS. PT INCREASINGLY PUSHING CALL LIGHT, CALLING FOR HELP. THEN WHEN STAFF OR MYSELF ENTER ROOM, SHE STATES SHE DOESN'T NEED ANYTHING. PT ASKED RN TO HAVE ME COME BACK IN ROOM AND WHEN I DID, SHE QUESTIONED WHO I WAS, AND WHEN I TOLD HER, SHE DID NOT RECOGNIZE ME OR MY NAME. 0720--KIKI SCHAEFER FROM [facility] HERE TO SEE PT. CASE DISCUSSED WITH DR. FINN AND CARE TURNED OVER TO HIM (NAIMA VILLEDA DO) Progress Note : Progress Note 0840: Patient has 8 breakfast. Screener has completed evaluation and would take her [place] the patient is refusing treatment there and actually just wants to go home. Troponin negative 2 on this evaluation as well as last night. She is eating and drinking okay. No other significant findings at this time. I did rediscuss the case with Dr. Sandoval, who is very familiar with the patient , and we both agree that the patient is okay for going home and following up with her primary care provider. This was discussed with the patient and she agrees. Discharged home with return precautions. Patient verbalize understanding instructions and agreement with plan. (THERESE FINN MD) Initial ECG Impression Date: November 25, 2017 Initial ECG Impression Time: 01:34 Initial ECG Rate: 55 Initial ECG Rhythm: Normal Sinus Initial ECG Comparisson: Unchanged (NAIMA VILLEDA DO) Departure Communication (Admissions) 0240--SPOKE WITH DR. SANDOVAL. WILL KEEP PT IN ER, DO SERIAL TROPONINS AND EKG'S .SHE WILL SEE PT EARLY THIS AM, AND WILL CONSULT DR. COURTNEY. PT MAY BE ELIGIBLE FOR GERIATRIC PSYCH PLACEMENT IF CARDIAC ETIOLOGY IS RULED OUT, PT DOES NOT APPEAR TO BE MAKING RATIONAL DECISIONS AT THIS TIME, IN REGARDS TO HER HEALTH. 529--DR. SANDOVAL CALLED. SHE IS FAMILIAR WITH PT D PT HAS HAD SEVERAL ADMITS TO [facility], AND SHE HAS CONTACTED THEM TO ARRANGE FOR A SCREENER TO COME SEE PT. SHE WILL ALSO BE DISCUSSING WITH DR. COURTNEY. SHE WILL BE IN TO SEE PT (NAIMA VILLEDA DO) Impression Primary Impression: Chest pain Additional Impressions: HTN (hypertension) Qualified Codes: I10 - Essential (primary) hypertension Dementia Qualified Codes: F03.90 - Unspecified dementia without behavioral disturbance Leg edema Chronic renal insufficiency Qualified Codes: N18.9 - Chronic kidney disease, unspecified Chronic generalized pain Disposition: 01 HOME, SELF-CARE Condition: Stable Departure-Patient Inst. Decision time for Depature: 08:42 (THERESE FINN MD) Referrals: JOVON LING MD (PCP/Family) Primary Care Physician Patient Instructions: Chest Pain (DC) Add. Discharge Instructions: It is very important that you call your doctor for follow-up to further evaluate your concerns including with chest pain and blood pressure problems. It is very important that you take your meds as directed and stay on them daily. Return for worse pain, fever, vomiting, weakness, breathing problems or other concerns as needed. NAIMA VILLEDA DO November 25, 2017 01:30 THERESE FINN MD November 25, 2017 08:44
--- OUTSIDE RECORDS SUMMARY | 2017-11-25 01:36 | XMS REPORT | Continuity of Care Document ---
Author Author [facility] Address Unknown Phone Unavailable Allergies Active Description Code Type Severity Reaction Onset Reported/Identified Relationship to Patient Clinical Status Yes LATEX, NATURAL RUBBER LATEX , NATURAL RUBBE SEVERE Yes PENICILLIN G BENZATHINE PENICILLIN G BENZATH SEVERE Yes LATEX, NATURAL RUBBER SEVERE DERMATOLOGICAL - ROYER Yes PENICILLIN G BENZATHINE SEVERE DERMATOLOGICAL - ROYRE Yes latex OA N/A N/A 11/08/2008 Yes Penicillins Drug Allergy N/A N/A 11/08/2008 Yes latex OA 11/08/2008 Yes Penicillins Drug Allergy 11/08/2008 Yes latex [id number] Drug Allergy Mild N/A 07/22/2013 Yes Penicillins [id number] Drug Allergy Mild N/A 07/22/2013 Yes latex [...] K 477.9 Spasmodic Rhinorrhea 11/08/2008 STANLEY DO, AUGUSTSU K 780.4 Vertigo 11/08/2008 STANLEY DO, AUGUSTUS [...] 12/31/2008 294.9 OR COG DIS NOS 12/31/2008 VANESAS PERES MD 294.9 OR COG DIS NOS [...] Upper Respiratory Infections Of Unspecified Site 03/16/2009 AVNESSA PERES MD 786.52 Painful Respiration 03/16/2009 465.9 [...] K 333.94 RESTLESS LEGS SYNDROME (RLS) 11/21/2009 SATNLEY DO, AUGUSTUS K 787.01 Nausea With Vomiting [...] NOS 10/08/2010 Ot 414.01 CORONARY ATHEROSCLEROSIS OF [place] CORON 10/08/2010 Ot 530.81 ESOPHAGEAL REFLUX 11/06/2010 [...] DISEASE 06/19/2011 Ot 414.01 CORONARY ATHEROSCLEROSIS OF [place] CORON 06/19/2011 Ot 427.89 CARDIAC DYSRHYTHMIAS NEC [...] STANLEY DO Ot 414.01 CORONARY ATHEROSCLEROSIS OF [place] CORON 07/22/2013 AUGUSTUS STANLEY DO Ot 426.4 [...] MD Ot I25.10 ATHSCL HEART DISEASE OF [place] CORONARY 10/14/2015 RAE BUTLER MD Ot K21.9 [...] SCHIZOAFFECTIVE DISORDER, DEPRESSIVE TYPE 06/10/2016 RYAN VALENZUELA CAREER SERVICES OFFICER Ot F03.90 UNSPECIFIED DEMENTIA WITHOUT BEHAVIORAL 06/10/2016 RYAN VALENZUELA CAREER SERVICES OFFICER Ot G40.909 EPILEPSY, UNSP, NOT INTRACTABLE, WITHOUT 06/10/2016 RYAN VALENZUELA CAREER SERVICES OFFICER Ot J40 BRONCHITIS, NOT SPECIFIED ACUTE OR CH 06/10/2016 RYAN VALENZUELA CAREER SERVICES OFFICER Ot R06.02 SHORTNESS OF BREATH 06/10/2016 RYAN VALENZUELA CAREER SERVICES OFFICER Ot R42 DIZZINESS AND GIDDINESS 06/10/2016 RYAN VALENZUELA APRN Ot Z79.82 REGISTERED PHYSICAL THERAPIST (CURRENT) USE OF ASPIRIN 06/10/2016 RYAN VALENZUELA APRN Ot Z79.899 OTHER REGISTERED PHYSICAL THERAPIST (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 THERAPY 06/10/2016 RYAN VALENZUELA APRN [...] DO, Ot I25.10 ATHSCL HEART DISEASE OF [place] CORONARY 08/03/2016 FABIOLA HERNANDEZ DO, Ot S01.01XA LACERATION WITHOUT FOREIGN BODY OF SCALP 08/03/2016 FABIOLA HERNANDEZ DO, Ot W01.0XXA FALL SAME LEV FROM SLIP/TRIP W/O STRIKE 08/03/2016 FABIOLA HERNANDEZ DO Ot Y99.8 OTHER EXTERNAL CAUSE STATUS 08/03/2016 FABIOLA HERNANDEZ DO, Ot Z23 ENCOUNTER FOR IMMUNIZATION 08/03/2016 FABIOLA HERNANDEZ DO, Ot Z79.82 REGISTERED PHYSICAL THERAPIST (CURRENT) USE OF ASPIRIN 08/03/2016 FABIOLA HERNANDEZ DO, Ot Z79.899 OTHER USP (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 THERAPY 08/04/2016 FABIOLA HERNANDEZ DO Ot I10 ESSENTIAL (PRIMARY) HYPERTENSION 08/04/2016 FABIOLA HERNANDEZ DO, Ot I25.10 ATHSCL HEART DISEASE OF [place] CORONARY 08/04/2016 FABIOLA HERNANDEZ DO Ot S01.01XA LACERATION WITHOUT FOREIGN BODY OF SCALP 08/04/2016 FABIOLA HERNANDEZ DO, Ot W01.0XXA FALL SAME LEV FROM SLIP/TRIP W/O STRIKE 08/04/2016 FABIOLA HERNANDEZ DO Ot Y99.8 OTHER EXTERNAL CAUSE STATUS 08/04/2016 FABIOLA HERNANDEZ DO, Ot Z23 ENCOUNTER FOR IMMUNIZATION 08/04/2016 FABIOLA HERNANDEZ DO, Ot Z79.82 USP (CURRENT) USE OF ASPIRIN 08/04/2016 FABIOLA HERNANDEZ DO, Ot Z79.899 OTHER REGISTERED PHYSICAL THERAPIST (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 THERAPY 08/11/2016 FABIOLA HERNANDEZ DO Ot I10 ESSENTIAL (PRIMARY) HYPERTENSION 08/11/2016 FABIOLA HERNANDEZ DO, Ot I25.10 ATHSCL HEART DISEASE OF [place] CORONARY 08/11/2016 FABIOLA HERNANDEZ DO Ot S01.01XA LACERATION WITHOUT FOREIGN BODY OF SCALP 08/11/2016 FABIOLA HERNANDEZ DO, Ot W01.0XXA FALL SAME LEV FROM SLIP/TRIP W/O STRIKE 08/11/2016 FABIOLA HERNANDEZ DO Ot Y99.8 OTHER EXTERNAL CAUSE STATUS 08/11/2016 FABIOLA HERNANDEZ DO Ot Z23 ENCOUNTER FOR IMMUNIZATION 08/11/2016 FABIOLA HERNANDEZ DO, Ot Z79.82 USP (CURRENT) USE OF ASPIRIN 08/11/2016 FABIOLA HERNANDEZ DO, Ot Z79.899 OTHER REGISTERED PHYSICAL THERAPIST (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 THERAPY 08/24/2016 Ot V76.12 OTH [...] MD Ot I25.10 ATHSCL HEART DISEASE OF [place] CORONARY 08/26/2016 SOLIS PIRES MD Ot R42 DIZZINESS AND GIDDINESS 08/26/2016 SOLIS PIRES MD Ot Z79.82 REGISTERED PHYSICAL THERAPIST (CURRENT) USE OF ASPIRIN 08/26/2016 SOLIS PIRES MD Ot Z79.899 OTHER USP (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 THERAPY 08/27/2016 Ot V76.12 OTH [...] MD Ot I25.10 ATHSCL HEART DISEASE OF [place] CORONARY 08/28/2016 SOLIS PIRES MD Ot R42 DIZZINESS AND GIDDINESS 08/28/2016 SOLIS PIRES MD Ot Z79.82 USP (CURRENT) USE OF ASPIRIN 08/28/2016 SOLIS PIRES MD Ot Z79.899 OTHER USP (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 THERAPY 09/15/2016 ANURADHA SOTELO, JOVON [...] DOI Ot I25.10 ATHSCL HEART DISEASE OF [place] CORONARY 10/02/2016 ABDIEL SANDOVAL DOI Ot K21.9 [...] MD Ot I25.10 ATHSCL HEART DISEASE OF [place] CORONARY 12/16/2016 INDIA BARROW MD Ot K57.30 DVRTCLOS OF LG INT W/O PERFORATION OR AB 12/16/2016 INDIA BARROW MD Ot K63.5 POLYP OF COLON 12/16/2016 INDIA BARROW MD Ot Z12.11 ENCOUNTER FOR SCREENING FOR MALIGNANT NE 12/16/2016 INDIA BARROW MD Ot Z79.899 OTHER REGISTERED PHYSICAL THERAPIST (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 THERAPY 12/29/2016 INDIA BARROW MD Ot E78.5 HYPERLIPIDEMIA, UNSPECIFIED 12/29/2016 INDIA BARROW MD Ot I10 ESSENTIAL (PRIMARY) HYPERTENSION 12/29/2016 INDIA BARROW MD Ot I25.10 ATHSCL HEART DISEASE OF [place] CORONARY 12/29/2016 INDIA BARROW MD Ot K57.30 DVRTCLOS OF LG INT W/O PERFORATION OR AB 12/29/2016 INDIA BARROW MD Ot K63.5 POLYP OF COLON 12/29/2016 INDIA BARROW MD Ot Z12.11 ENCOUNTER FOR SCREENING FOR MALIGNANT NE 12/29/2016 INDIA BARROW MD Ot Z79.899 OTHER REGISTERED PHYSICAL THERAPIST (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 THERAPY 01/06/2017 INDIA BARROW MD Ot E78.5 HYPERLIPIDEMIA, UNSPECIFIED 01/06/2017 INDIA BARROW MD Ot I10 ESSENTIAL (PRIMARY) HYPERTENSION 01/06/2017 INDIA BARROW MD Ot I25.10 ATHSCL HEART DISEASE OF [place] CORONARY 01/06/2017 INDIA BARROW MD Ot K57.30 DVRTCLOS OF LG INT W/O PERFORATION OR AB 01/06/2017 INDIA BARROW MD Ot K63.5 POLYP OF COLON 01/06/2017 INDIA BARROW MD Ot Z12.11 ENCOUNTER FOR SCREENING FOR MALIGNANT NE 01/06/2017 INDIA BARROW MD Ot Z79.899 OTHER REGISTERED PHYSICAL THERAPIST (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 THERAPY 01/13/2017 INDIA BARROW MD Ot E78.5 HYPERLIPIDEMIA, UNSPECIFIED 01/13/2017 INDIA BARROW MD Ot I10 ESSENTIAL (PRIMARY) HYPERTENSION 01/13/2017 INDIA BARROW MD Ot I25.10 ATHSCL HEART DISEASE OF [place] CORONARY 01/13/2017 INDIA BARROW MD Ot K57.30 DVRTCLOS OF LG INT W/O PERFORATION OR AB 01/13/2017 INDIA BARROW MD Ot K63.5 POLYP OF COLON 01/13/2017 INDIA BARROW MD Ot Z12.11 ENCOUNTER FOR SCREENING FOR MALIGNANT NE 01/13/2017 INDIA BARROW MD Ot Z79.899 OTHER REGISTERED PHYSICAL THERAPIST (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 THERAPY 01/25/2017 LOLLY SUTTON CAREER SERVICES OFFICER Ot R92.8 OTH ABN AND INCONCLUSIVE FINDINGS ON DX 01/27/2017 LOLLY SUTTON CAREER SERVICES OFFICER Ot R92.8 OTH ABN AND INCONCLUSIVE FINDINGS ON DX 02/01/2017 LOLLY SUTTON CAREER SERVICES OFFICER Ot R92.8 OTH ABN AND INCONCLUSIVE FINDINGS ON DX 02/02/2017 LOLLY SUTTON CAREER SERVICES OFFICER Ot R92.8 OTH ABN AND INCONCLUSIVE FINDINGS ON DX 03/01/2017 LOLLY SUTTON CAREER SERVICES OFFICER Ot R92.8 OTH ABN AND INCONCLUSIVE FINDINGS ON DX 03/02/2017 LOLLY SUTTON CAREER SERVICES OFFICER Ot R92.8 OTH ABN AND INCONCLUSIVE FINDINGS ON DX 03/03/2017 LOLLY SUTTON CAREER SERVICES OFFICER Ot R92.8 OTH ABN AND INCONCLUSIVE FINDINGS ON DX 04/06/2017 LOLLY SUTTON CAREER SERVICES OFFICER Ot M81.0 AGE-RELATED OSTEOPOROSIS W/O CURRENT PAT 04/06/2017 LOLLY SUTTON N CAREER SERVICES OFFICER Ot M81.0 AGE-RELATED OSTEOPOROSIS W/O CURRENT PAT 04/20/2017 LOLLY SUTTON CAREER SERVICES OFFICER Ot M81.0 AGE-RELATED OSTEOPOROSIS W/O CURRENT PAT 04/22/[address] CAREER SERVICES OFFICER Ot M11.261 OTHER CHONDROCALCINOSIS, RIGHT KNEE 04/22/2017 LOLLY SUTTON N CAREER SERVICES OFFICER Ot M11.262 OTHER CHONDROCALCINOSIS, LEFT KNEE 04/28/[address] CAREER SERVICES OFFICER Ot M11.261 OTHER CHONDROCALCINOSIS, RIGHT KNEE 04/28/[address] CAREER SERVICES OFFICER Ot M11.262 OTHER CHONDROCALCINOSIS, LEFT KNEE 05/14/[address] CAREER SERVICES OFFICER Ot M11.261 OTHER CHONDROCALCINOSIS, RIGHT KNEE 05/14/2017 LOLLY SUTTON N CAREER SERVICES OFFICER Ot M11.262 OTHER CHONDROCALCINOSIS, LEFT KNEE 05/19/[address] CAREER SERVICES OFFICER Ot M11.261 OTHER CHONDROCALCINOSIS, RIGHT KNEE 05/19/2017 LOLLY SUTTON N CAREER SERVICES OFFICER Ot M11.262 OTHER CHONDROCALCINOSIS, LEFT KNEE 05/24/[address] CAREER SERVICES OFFICER Ot M11.261 OTHER CHONDROCALCINOSIS, RIGHT KNEE 05/24/[address] CAREER SERVICES OFFICER Ot M11.262 OTHER CHONDROCALCINOSIS, LEFT KNEE 06/02/2017 [...] MD Ot I25.10 ATHSCL HEART DISEASE OF [place] CORONARY 06/02/2017 MACY GLYNN MD Ot K21.9 GASTRO-ESOPHAGEAL REFLUX DISEASE WITHOUT 06/02/2017 MACY GLYNN MD, Ot S92.512A DISP FX OF PROXIMAL PHALANX OF LEFT LESS 06/02/2017 MACY GLYNN MD Ot W18.2XXA FALL IN (INTO) SHOWER OR EMPTY BATHTUB, 06/02/2017 MACY GLYNN MD Ot Y92.[address] [facility] SN 06/02/2017 MACY GLNYN MD, Ot Y93.E1 ACTIVITY, PERSONAL BATHING AND SHOWERING 06/02/2017 MACY GLYNN MD Ot Z79.82 REGISTERED PHYSICAL THERAPIST (CURRENT) USE OF ASPIRIN 06/02/2017 MACY GLYNN [...] MD Ot I25.10 ATHSCL HEART DISEASE OF [place] CORONARY 06/08/2017 MACY GLYNN MD Ot K21.9 GASTRO-ESOPHAGEAL REFLUX DISEASE WITHOUT 06/08/2017 MACY GLYNN MD Ot S92.512A DISP FX OF PROXIMAL PHALANX OF LEFT LESS 06/08/2017 MACY GLYNN MD Ot W18.2XXA FALL IN (INTO) SHOWER OR EMPTY BATHTUB, 06/08/2017 MACY GLYNN MD Ot Y92.[address] [facility] SN 06/08/2017 MACY GLYNN MD, Ot Y93.E1 ACTIVITY, PERSONAL BATHING AND SHOWERING 06/08/2017 MACY GLYNN MD Ot Z79.82 USP (CURRENT) USE OF ASPIRIN 06/08/2017 MACY GLYNN MD Ot Z87.828 PERSONAL HISTORY OF OTH (HEALED) PHYSICA 06/08/2017 MACY GLYNN MD Ot Z90.49 ACQUIRED ABSENCE OF OTHER SPECIFIED PART 07/07/2017 BELINDA VALDEZ MD Ot E04.2 NONTOXIC MULTINODULAR GOITER 07/27/2017 BEILNDA VALDEZ MD Ot E04.2 NONTOXIC MULTINODULAR GOITER 07/30/2017 LOLLY SUTTON CAREER SERVICES OFFICER Ot R92.8 OTH ABN AND INCONCLUSIVE FINDINGS ON DX 08/04/2017 BELINDA VALDEZ MD, Ot E04.2 NONTOXIC MULTINODULAR GOITER 08/05/2017 LOLLY SUTTON CAREER SERVICES OFFICER Ot R92.8 OTH ABN AND INCONCLUSIVE FINDINGS [...] MD Ot I25.10 ATHSCL HEART DISEASE OF [place] CORONARY 08/24/2017 THERESE FINN MD Ot J42 UNSPECIFIED CHRONIC BRONCHITIS 08/24/2017 THERESE FINN MD Ot K21.9 GASTRO-ESOPHAGEAL REFLUX DISEASE WITHOUT 08/24/2017 THERESE FINN MD Ot R07.89 OTHER CHEST PAIN 08/24/2017 THERESE FINN MD Ot R60.0 LOCALIZED EDEMA 08/24/2017 THERESE FINN MD Ot Z79.52 REGISTERED PHYSICAL THERAPIST (CURRENT) USE OF SYSTEMIC STER 08/24/2017 THERESE FINN MD Ot Z79.82 USP (CURRENT) USE OF ASPIRIN 08/24/2017 THERESE FINN MD Ot Z87.820 PERSONAL HISTORY OF TRAUMATIC BRAIN INJU 08/24/2017 THERESE FINN MD Ot Z87.891 PERSONAL HISTORY OF NICOTINE DEPENDENCE 08/24/2017 THERESE FINN MD Ot Z88.0 ALLERGY STATUS TO PENICILLIN 08/24/2017 THERESE FINN MD Ot Z91.040 LATEX ALLERGY STATUS 08/26/2017 LOLLY SUTTON CAREER SERVICES OFFICER Ot R92.8 OTH ABN AND INCONCLUSIVE FINDINGS ON DX 09/06/2017 LOLLY SUTTON CAREER SERVICES OFFICER Ot M41.9 SCOLIOSIS, UNSPECIFIED 09/06/2017 LOLLY SUTTON CAREER SERVICES OFFICER Ot M47.816 SPONDYLOSIS W/O MYELOPATHY OR RADICULOPA 09/06/2017 LOLLY SUTTON CAREER SERVICES OFFICER Ot M79.605 PAIN IN LEFT LEG 09/06/2017 LOLLY SUTTON CAREER SERVICES OFFICER Ot R90.82 WHITE MATTER DISEASE, UNSPECIFIED 09/06/2017 LOLLY SUTTON CAREER SERVICES OFFICER Ot W19.XXXA UNSPECIFIED FALL, INITIAL ENCOUNTER 09/06/2017 LOLLY SUTTON CAREER SERVICES OFFICER Ot M41.9 SCOLIOSIS, UNSPECIFIED 09/06/2017 LOLLY SUTTON CAREER SERVICES OFFICER Ot M47.816 SPONDYLOSIS W/O MYELOPATHY OR RADICULOPA 09/06/2017 LOLLY SUTTON CAREER SERVICES OFFICER Ot M79.605 PAIN IN LEFT LEG 09/06/2017 LOLLY SUTTON CAREER SERVICES OFFICER Ot R90.82 WHITE MAT[place] DISEASE, UNSPECIFIED 09/06/2017 LOLLY SUTTON CAREER SERVICES OFFICER Ot W19.XXXA UNSPECIFIED FALL, INITIAL ENCOUNTER 09/16/2017 LOLLY SUTTON CAREER SERVICES OFFICER Ot R92.8 OTH ABN AND INCONCLUSIVE FINDINGS ON DX 09/22/2017 LOLLY SUTTON CAREER SERVICES OFFICER Ot M41.9 SCOLIOSIS, UNSPECIFIED 09/22/2017 LOLLY SUTTON CAREER SERVICES OFFICER Ot M47.816 SPONDYLOSIS W/O MYELOPATHY OR RADICULOPA 09/22/2017 LOLLY SUTTON CAREER SERVICES OFFICER Ot M79.605 PAIN IN LEFT LEG 09/22/2017 LOLLY SUTTON CAREER SERVICES OFFICER Ot R90.82 WH[place] MAT[place] DISEASE, UNSPECIFIED 09/22/2017 LOLLY SUTTON CAREER SERVICES OFFICER Ot W19.XXXA UNSPECIFIED FALL, INITIAL ENCOUNTER 09/29/2017 LOLLY SUTTON CAREER SERVICES OFFICER Ot M41.9 SCOLIOSIS, UNSPECIFIED 09/29/[address] CAREER SERVICES OFFICER Ot M47.816 SPONDYLOSIS W/O MYELOPATHY OR RADICULOPA 09/29/[address] CAREER SERVICES OFFICER Ot M79.605 PAIN IN LEFT LEG 09/29/2017 LOLLY SUTTON CAREER SERVICES OFFICER Ot R90.82 WH[place] MAT[place] DISEASE, UNSPECIFIED 09/29/2017 LOLLY SUTTON CAREER SERVICES OFFICER Ot W19.XXXA UNSPECIFIED FALL, INITIAL ENCOUNTER 11/11/2017 [...] MD Ot I25.10 ATHSCL HEART DISEASE OF [place] CORONARY 11/11/2017 INDIA BARROW MD Ot K57.30 DVRTCLOS OF LG INT W/O PERFORATION OR AB 11/11/2017 INDIA BARROW MD Ot K63.5 POLYP OF COLON 11/11/2017 INDIA BARROW MD Ot Z12.11 ENCOUNTER FOR SCREENING FOR MALIGNANT NE 11/11/2017 INDIA BARROW MD Ot Z79.899 OTHER USP (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 THERAPY 11/11/2017 INDIA BARROW MD Ot Z01.818 ENCOUNTER FOR OTHER PREPROCEDURAL EXAMIN 11/11/2017 INDIA BARROW MD Ot Z12.11 ENCOUNTER FOR SCREENING FOR MALIGNANT NE 11/11/2017 LOLLY SUTTON CAREER SERVICES OFFICER Ot R92.8 OTH ABN AND INCONCLUSIVE FINDINGS ON DX 11/11/2017 LOLLY SUTTON CAREER SERVICES OFFICER Ot M11.261 OTHER CHONDROCALCINOSIS, RIGHT KNEE 11/11/2017 LOLLY SUTTON CAREER SERVICES OFFICER Ot M11.262 OTHER CHONDROCALCINOSIS, LEFT KNEE 11/11/2017 COURTNEY SOTELO, BELINDA Gomez Ot E04.2 NONTOXIC MULTINODULAR GOITER 11/11/2017 LOLLY SUTTON CAREER SERVICES OFFICER Ot R92.8 OTH ABN AND INCONCLUSIVE FINDINGS ON DX 11/11/2017 LOLLY SUTTON CAREER SERVICES OFFICER Ot M41.9 SCOLIOSIS, UNSPECIFIED 11/11/2017 LOLLY SUTTON CAREER SERVICES OFFICER Ot M47.816 SPONDYLOSIS W/O MYELOPATHY OR RADICULOPA 11/11/2017 LOLLY SUTTON CAREER SERVICES OFFICER Ot M79.605 PAIN IN LEFT LEG 11/11/2017 LOLLY SUTTON CAREER SERVICES OFFICER Ot R90.82 WHITE MATTER DISEASE, UNSPECIFIED 11/11/2017 LOLLY SUTTON CAREER SERVICES OFFICER Ot W19.XXXA UNSPECIFIED FALL, INITIAL ENCOUNTER 11/15/2017 JUDY BRUNO LAB COORDINATOR Ot E04.2 NONTOXIC MULTINODULAR GOITER Procedures Code Description Performed By Performed On 37.22 10/06/2010 88.53 10/06/2010 88.56 10/06/2010 46320 ROUTINE VENIPUNCTURE 05/03/2012 77206 CBC 05/03/2012 06782 LIPID PANEL 05/03/2012 78053 CMP 05/03/2012 [id number] GFR CALC (RESULT ONLY) 05/03/2012 99833 TOPIRAMATE (TOPAMAX) 05/05/2012 81341 LEVETIRACETAM (KEPPRA) LEVEL 05/06/2012 Cardiolog Sage Tuttle 11/15/2012 65761 MAMMOGRAM, SCREENING 03/30/2013 99316 CBC 03/30/2013 Obstetric FenBelinda doe 05/02/2013 Results [...] 165 10^3u 142-424 MPV 10.8 FL 9.4-12.4 [place] # 0.84 10^3u 0.0-1.0 RBC 4.01 10^6u 4.04-6.13 [place] % 14.7 % 0-12 RDW 12.8 % [...] Urobilinogen 0.2 0.2-1.0 Urine RBC N0-2 Specific [place] 1.010 1.010-1.020 Urine WBC N3-5 Blood Trace Negative Color Yellow Yellow Squamous Epithelial Cells Trace Bilirubin Negative Negative Site VOID EKG - 06/22/16 04:26 EKG SMR COMPLETE BLOOD COUNT - 06/23/16 05:54 Platelet 153 10^3u 142-424 MPV 10.6 FL 9.4-12.4 [place] # 0.97 10^3u 0.0-1.0 RBC 3.81 10^6u 4.04-6.13 [place] % 11.8 % 0-12 RDW 12.5 % [...] 160 10^3u 142-424 MPV 10.1 FL 9.4-12.4 [place] # 0.65 10^3u 0.0-1.0 RBC 3.89 10^6u 4.04-6.13 [place] % 13.3 % 0-12 RDW 12.6 % [...] 09:09 Strep A Screen NEG Negative Respiratory Panel-[facility] - 06/27/16 11:42 [place] Not Detected [...] Detected Human Rhinovirus 4 ND Not Detected [id number] ND Not Detected FluA-H1-[place] Not Detected [...] 123 10^3u 142-424 MPV 10.8 FL 9.4-12.4 [place] # 0.84 10^3u 0.0-1.0 RBC 4.05 10^6u 4.04-6.13 [place] % 15.9 % 0-12 RDW 13.0 % [...] INFLUENZA A AND B ANTIGENS BY IA [facility] Comprehensive metabolic panel - 08/24/17 12:45 [...] or plasma urea nitrogen/creatinine mass ratio [address] [facility] Serum or plasma creatinine measurement with calculation of estimated glomerular filtration rate [address] [facility] Serum or plasma glucose measurement (mass/volume) [...] Status Pt. Type Provider Facility Loc./Unit Complaint [id number] 09/20/2014 16:35:00 09/20/2014 23:59:59 CLS Outpatient LARISA SOTELO, VANESSA [id number] 05/18/2014 14:27:00 05/18/2014 23:59:59 CLS Outpatient VANESSA PERES MD [id number] 02/02/2014 11:18:00 02/02/2014 23:59:59 CLS Outpatient VANESSA PERES MD [id number] 08/21/2013 07:12:00 08/21/2013 23:59:59 CLS Outpatient JADEN CRAFTAUGUSTUS [id number] 05/22/2013 09:45:00 05/22/2013 23:59:59 CLS Outpatient JADEN CRAFTAUGUSTUS [id number] 05/16/2013 10:13:00 05/16/2013 23:59:59 CLS Outpatient STANLEY AUGUSTUS CRAFT [id number] 05/02/2013 09:47:00 05/02/2013 23:59:59 CLS Outpatient VANESSA PERES MD [id number] 03/30/2013 13:07:00 03/30/2013 23:59:59 CLS Outpatient VANESSA PERES MD [id number] 08/26/2012 10:02:00 08/26/2012 23:59:59 CLS Outpatient VANESSA PERES MD [id number] 08/16/2012 13:36:00 08/16/2012 23:59:59 CLS Outpatient [id number] 07/07/2012 14:39:00 07/07/2012 23:59:59 [place] [id number] 05/03/2012 10:07:00 05/03/2012 23:59:59 CLS Outpatient [id number] 11/10/2012 13:55:00 Document Registration [id number] 10/21/2017 10:29:00 10/21/2017 23:59:00 DIS Outpatient Dudley English [id number] 04/07/2016 09:00:00 05/12/2016 14:25:00 DIS Outpatient GENNY CHAVEZ [id number] 03/25/2016 18:40:00 Document Registration [id number] 11/12/2017 10:23:00 11/12/2017 23:59:59 CLS Outpatient JUDY BRUNO [facility] RAD MUTLINODULAR GOITER [id number] 09/02/2017 09:51:00 09/02/2017 23:59:59 CLS Outpatient LOLLY SUTTON APRN [facility] RAD R51,M54.5,M79.604 [id number] 08/24/2017 12:29:00 08/24/2017 15:59:00 DIS Emergency HUMA SOTELO, THERESE Post [facility] ER CP,DIZZINESS,SWEATY [id number] 08/04/2017 13:13:00 08/04/2017 23:59:59 CLS Outpatient LOLLY SUTTON CAREER SERVICES OFFICER [facility] RAD R92.8 ABN MAMMO [id number] 07/06/2017 12:35:00 07/06/2017 23:59:59 CLS Outpatient COURTNEY SOTELO, BELINDA Gomez [facility] RAD THYROID NODULES [id number] 06/02/2017 06:03:00 06/02/2017 09:36:00 DIS Emergency GRETTA SOTELO, MACY Oleary [facility] ER FALL [id number] 04/22/2017 08:13:00 04/22/2017 23:59:59 CLS Outpatient LOLLY SUTTON CAREER SERVICES OFFICER [facility] RAD M81.0 AGE RELATED OSTEOPOROSIS WO CURRENT PATHOLOG [id number] 02/01/2017 08:01:00 02/01/2017 23:59:59 CLS Outpatient LOLLY SUTTON CAREER SERVICES OFFICER [facility] RAD R92.8 [id number] 12/07/2016 07:22:00 12/07/2016 23:59:59 CLS Outpatient INDIA BARROW MD [facility] ENDO SCREENING [id number] 12/03/2016 05:56:00 12/03/2016 23:59:59 CLS Outpatient INDIA BARROW MD [facility] PREOP SCREENING COLONOSCOPY [id number] 10/05/2016 08:06:00 10/05/2016 23:59:59 CLS Outpatient ANURADHA SOTELO, JOVON Post [facility] RAD ABNORMAL MAMMO [id number] 09/30/2016 20:33:00 10/02/2016 11:20:00 DIS Inpatient DADA SANDOVAL DO [facility] 4TH RUQ PAIN;DEHYDRATION; ELECTROLYTE IMBALANCE; [id number] 08/26/2016 20:20:00 08/26/2016 23:20:00 DIS Emergency SOLIS PIRES MD [facility] ER NAUSEA [id number] 08/24/2016 14:39:00 08/24/2016 23:59:59 CLS Outpatient JOVON LING MD [facility] RAD SCREENING [id number] 08/03/2016 08:33:00 08/03/2016 11:31:00 DIS Emergency FABIOLA HERNANDEZ DO [facility] ER FALL/HEAD PAIN [id number] 06/18/2016 05:48:00 06/18/2016 23:59:59 CLS Outpatient INDIA BARROW MD [facility] PREOP DIARRHEA [id number] 06/10/2016 20:09:00 06/10/2016 23:15:00 DIS Emergency RYAN VALENZUELA CAREER SERVICES OFFICER [facility] ER SOB [id number] 05/01/2016 05:38:00 05/01/2016 14:13:00 DIS Outpatient INDIA BARROW MD [facility] PREOP SCREENING [id number] 10/13/2015 21:41:00 10/14/2015 20:10:00 DIS Inpatient RAE BUTLER MD [facility] 4TH CHEST PAIN [id number] 06/07/2015 14:46:00 06/07/2015 23:59:59 CLS Outpatient BELINDA RIVERA DO [facility] RAD SCREENING [id number] 09/07/2013 07:47:00 09/07/2013 23:59:59 CLS Outpatient ROZ SOTELO FACCTEAGAN FACP CCDS [facility] RAD ABD BLOATING [id number] 08/02/2013 07:34:00 08/02/2013 23:59:59 CLS Outpatient INGA DIEGO MD [facility] RAD CAD,GERD,HTN [id number] 07/21/2013 20:15:00 07/22/2013 11:30:00 DIS Inpatient AUGUSTUS STANLEY DO [facility] CSD CHEST PAIN [id number] 05/24/2013 09:43:00 05/24/2013 23:59:59 CLS Outpatient BELINDA RIVERA DO [facility] RAD PELVIC PAIN, SCREENING [id number] 12/07/2017 09:08:00 PEN Preadmit LOLLY SUTTON APRN [facility] REHAB GENERAL WEKANESS;ABNORMAL GAIT;PAIN IN R LEG [id number] 10/05/2015 03:05:00 Document Registration [id number] 10/17/2012 11:00:00 Document Registration [id number] 07/18/2012 10:37:00 Document Registration [id number] 01/29/2012 08:28:00 Document Registration [id number] 10/21/2011 12:49:00 Document Registration [id number] 06/18/2011 15:26:00 Document Registration [id number] 06/16/2011 08:42:00 Document Registration [id number] 04/06/2011 10:15:00 Document Registration [id number] 10/06/2010 12:25:00 Document Registration [id number] 05/07/2010 08:07:00 Document Registration [id number] 09/28/2017 14:00:00 09/28/2017 23:59:59 CLS Outpatient LARISA SOTELO, VANESSA HARDINTravis [facility] [id number] 10/24/2017 00:06:00 Document Registration [id number] 06/18/2016 16:30:00 07/02/2016 11:10:00 DIS Inpatient NELLY SOTELO, LEI [facility]
[2017-11-25] MEDS: fentaNYL INJECTION 100 MCG/2 ML AMP IVP STA ×2 (02:02→05:34)
[2017-11-25] MEDS: LORazepam INJ 2 MG/ML (ATIVAN) VIAL IVP ONE (02:03)
[2017-11-25] MEDS: NITROGLYCERIN 2% OINT 1 GM UNIT DOSE PACKET TOP ONE (02:06)
[2017-11-25] MEDS: PANTOPRAZOLE 40 MG/10 ML (PROTONIX) VIAL IV ONE (03:16)
[2017-11-25 08:55] VITALS: BP 135/70
== END 2017-11-25 08:55 | disposition home or self-care (01) ==
LOC: EDUNIT# 01:23 → ER 01:25
DX: R07.9 Chest pain, unspecified (principal); I12.9 Hypertensive chronic kidney disease with stage 1 through stage 4 chronic kidney disease, or unspecified chronic kidney disease; N18.9 Chronic kidney disease, unspecified; F03.90 Unspecified dementia, unspecified severity, without behavioral disturbance, psychotic disturbance, mood disturbance, and anxiety; R60.0 Localized edema; G89.29 Other chronic pain; I25.10 Atherosclerotic heart disease of native coronary artery without angina pectoris; E78.00 Pure hypercholesterolemia, unspecified; I10 Essential (primary) hypertension; K21.9 Gastro-esophageal reflux disease without esophagitis; G40.909 Epilepsy, unspecified, not intractable, without status epilepticus; F31.9 Bipolar disorder, unspecified; Z87.820 Personal history of traumatic brain injury; Z80.0 Family history of malignant neoplasm of digestive organs; Z82.49 Family history of ischemic heart disease and other diseases of the circulatory system; Z79.82 Long term (current) use of aspirin; Z87.19 Personal history of other diseases of the digestive system; Z79.52 Long term (current) use of systemic steroids; Z90.49 Acquired absence of other specified parts of digestive tract; Z87.891 Personal history of nicotine dependence
CPT/HCPCS: 36415; 84484; 93041; 96374; 96375; 96376

== ENCOUNTER 2017-12-07 20:58 | Emergency (ER) | payer MEDICARE, BC, MEDICAID ==
[~2017-12-07] VITALS: Ht 162.6 cm; Wt 108.9 kg
--- NOTE | 2017-12-07 21:10 | ED General ---
General Chief Complaint: General Problems/Pain Stated Complaint: TROUBLE URINATING Source of Information: Patient Exam Limitations: No Limitations History of Present Illness Date Seen by Provider: Dec 07, 2017 Time Seen by Provider: 21:07 Initial Comments to ER per EMS from [place] was with a multitude of complaints. She initially called EMS for numbness in both of her legs and reduced urine output. Upon EMS arrival she then complained of a sharp pain in both of her legs, dizziness, left -sided chest pain. Upon arrival to ER she complains of back pain and right leg pain. She was seen here recently and given a prescription for prednisone for costochondritis but she's been refusing to take that. [facility] also offered hydrocodone for pain control tonight but she also refused that. Timing/Duration: 1-2 Days Severity: Moderate Associated Systoms: Chest Pain; No Nausea/Vomiting Allergies and Home Medications Allergies Coded Allergies: Penicillins (Verified Allergy, Mild, 07/22/13) latex (Verified Allergy, Mild, 07/22/13) Home Medications Aspirin 81 Mg Tablet.dr, 81 MG PO DAILY, (Reported) Atorvastatin Calcium 80 Mg Tablet, 80 MG PO DAILY, (Reported) Calcium Carbonate/Vitamin D3 1 Each Tablet, 1 TAB PO BID, (Reported) Cephalexin 500 Mg Capsule, 500 MG PO TID Prescribed by: RYAN VALENZUELA on 12/07/171 Clonazepam 0.5 Mg Tablet, 0.5 MG PO HS, (Reported) Donepezil HCl 10 Mg Tablet, 10 MG PO HS, (Reported) Fluconazole 200 Mg Tablet, 200 MG PO Q48H, (Reported) TAKE ON ODD DAYS RELATED TO BACTERIAL INFECTION Folic Acid 1 Mg Tablet, 1 MG PO DAILY, (Reported) Furosemide 40 Mg Tablet, 40 MG PO DAILY, (Reported) Hydrocodone Bit/Acetaminophen 1 Each Tablet, 1 TAB PO Q4H PRN for MODERATE PAIN Prescribed by: DADA SANDOVAL on 10/02/16 1120 Ketoconazole 120 Ml Shampoo, TOP DAILY, (Reported) DAILY X 2 WEEKS THEN TWICE WEEKLY Lamotrigine 200 Mg Tablet, 200 MG PO BID, (Reported) Levetiracetam 750 Mg Tablet, 1,500 MG PO BID, (Reported) TAKES 2 (750MG) TABLETS Meclizine HCl 25 Mg Tablet, 25 MG PO Q6H PRN for DIZZINESS, (Reported) Melatonin/Pyridoxine 1 Each Tablet, 3 MG PO HS, (Reported) Meloxicam 15 Mg Tablet, 15 MG PO DAILY, (Reported) Memantine HCl 5 Mg Tablet, 5 MG PO DAILY, (Reported) Oxybutynin Chloride 15 Mg Tab.er.24, 15 MG PO HS, (Reported) Potassium Chloride 20 Meq Tablet.er, 20 MEQ PO DAILY Prescribed by: DADA SANDOVAL on 10/02/16 1120 Prednisolone Acetate 5 Ml Drops.susp, 1 DROP OU Q48H, (Reported) Risperidone 1 Mg Tablet, 1 MG PO DAILY, (Reported) Rivastigmine 9.5 Mg Patch, 9.5 MG TD DAILY, (Reported) Topiramate 200 Mg Tablet, 200 MG PO BID, (Reported) Trazodone HCl 50 Mg Tablet, 50 MG PO HS, (Reported) Triamcinolone Acet 15 Gm Cr, TOP BID, (Reported) Zolpidem Tartrate 5 Mg Tablet, 5 MG PO HS, (Reported) Patient Home Medication List Home Medication List Reviewed: Yes Review of Systems Constitutional: see HPI EENTM: see HPI Respiratory: no symptoms reported Cardiovascular: see HPI, chest pain Genitourinary: no symptoms reported Musculoskeletal: no symptoms reported Skin: no symptoms reported Psychiatric/Neurological: No Symptoms Reported Hematologic/Lymphatic: No Symptoms Reported Immunological/Allergic: no symptoms reported Past Xwjogyr-Wdiwkm-Posmox Hx Patient Social History Type Used: Cigarettes Former Smoker, Quit: Jul 05, 2013 Recent Hopitalizations: No (PSYCH EVALUATIOIN 06/19) Immunizations Up To Date Tetanus Booster (TDap): Unknown Date of Influenza Vaccine: Apr 04, 2016 Seasonal Allergies Seasonal Allergies: No Past Medical History Surgeries: Yes Gallbladder, Lumpectomy Respiratory: Yes (BRONCHITIS) Chronic Bronchitis Currently Using CPAP: No Cardiac: Yes Chronic Edema/Swelling, Coronary Artery Disease, High Cholesterol, Hypertension , Rheumatic Fever Neurological: Yes (ENCEPHALITIS) Concussion, Dementia, Seizure Disorder, Traumatic Brain Injury, Vertigo Reproductive Disorders: No Female Reproductive Disorders: Denies Sexually Transmitted Disease: No HIV/AIDS: No Genitourinary: Yes (CHRONIC RENAL INSUFFICIENCY; BLADDER CONTROL ISSUES?) Gastrointestinal: Yes ("STOMACH DISCOMFORT"--POST-CHOLECYSTECTOMY SYNDROME) Gastroesophageal Reflux, Chronic Constipation, Gall Bladder Disease Musculoskeletal: Yes Arthritis Endocrine: No Loss of Vision: Bilateral Hearing Impairment: Denies Cancer: No Psychosocial: Yes Sleep Difficulties, Bipolar Integumentary: Yes Psoriasis Blood Disorders: No Family Medical History Cancer 03 FATHER (PANCREATIC CANCER) 09 BROTHER ( AT AGE 10) Family history: Cardiovascular disease 03 MOTHER Family history: Diabetes mellitus 03 MOTHER Heart disease 03 MOTHER No Pertinent Family Hx Physical Exam Vital Signs Vital Signs - First Documented 12/07/17 21:00 Temp 98.8 Pulse 61 Resp 20 B/P (MAP) 134/67 (89) Pulse Ox 94 O2 Delivery Room Air Capillary Refill : General Appearance: No Apparent Distress, WD/WN, Other (at this time she is alert and oriented to person place time and situation and she knows who the president is.) Eyes: Bilateral Eye Normal Inspection, Bilateral Eye PERRL, Bilateral Eye EOMI HEENT: PERRL/EOMI, TMs Normal Neck: Full Range of Motion, Normal Inspection Respiratory: No Accessory Muscle Use, No Respiratory Distress Cardiovascular: Regular Rate, Rhythm, Normal Peripheral Pulses Gastrointestinal: Normal Bowel Sounds, Non Tender, Soft Extremity: Normal Capillary Refill, Pedal Edema, Other (3+; there is also a bit of erythema to both lower extremities but no induration of the skin. Ecchymosis to bilateral knees anteriorly) Neurologic/Psychiatric: Alert, Oriented x3, No Motor/Sensory Deficits Skin: Normal Color, Warm/Dry Progress/Results/Core Measures Suspected Sepsis SIRS Temperature: Pulse: Respiratory Rate: Laboratory Tests 12/07/17 21:15: White Blood Count 5.6 Blood Pressure / Mean: Laboratory Tests 12/07/17 21:15: Creatinine 1.09, Platelet Count 221, Total Bilirubin 0.3 Results/Orders Lab Results Laboratory Tests Test 12/07/17 21:15 12/07/17 22:35 Range/Units White Blood Count 5.6 4.3-11.0 10^3/uL Red Blood Count 3.75 L 4.35-5.85 10^6/uL Hemoglobin 11.9 11.5-16.0 G/DL Hematocrit 37 35-52 % Mean Corpuscular Volume 98 80-99 FL Mean Corpuscular Hemoglobin 32 25-34 PG Mean Corpuscular Hemoglobin Concent 32 32-36 G/DL Red Cell Distribution Width 12.7 10.0-14.5 % Platelet Count 221 130-400 10^3/uL Mean Platelet Volume 9.6 7.4-10.4 FL Neutrophils (%) (Auto) 57 42-75 % Lymphocytes (%) (Auto) 22 12-44 % Monocytes (%) (Auto) 17 H 0-12 % Eosinophils (%) (Auto) 4 0-10 % Basophils (%) (Auto) 1 0-10 % Neutrophils # (Auto) 3.2 1.8-7.8 X 10^3 Lymphocytes # (Auto) 1.2 1.0-4.0 X 10^3 Monocytes # (Auto) 1.0 0.0-1.0 X 10^3 Eosinophils # (Auto) 0.2 0.0-0.3 10^3/uL Basophils # (Auto) 0.0 0.0-0.1 10^3/uL Sodium Level 140 135-145 MMOL/L Potassium Level 3.6 3.6-5.0 MMOL/L Chloride Level 108 H 98-107 MMOL/L Carbon Dioxide Level 21 21-32 MMOL/L Anion Gap 11 5-14 MMOL/L Blood Urea Nitrogen 13 7-18 MG/DL Creatinine 1.09 0.60-1.30 MG/DL Estimat Glomerular Filtration Rate 50 BUN/Creatinine Ratio 12 Glucose Level 93 70-105 MG/DL Calcium Level 9.0 8.5-10.1 MG/DL Total Bilirubin 0.3 0.1-1.0 MG/DL Aspartate Amino Transf (AST/SGOT) 23 5-34 U/L Alanine Aminotransferase (ALT/SGPT) 18 0-55 U/L Alkaline Phosphatase 132 40-136 U/L Troponin I < 0.30 <0.30 NG/ML B-Type Natriuretic Peptide 36.0 <100.0 PG/ML Total Protein 6.8 6.4-8.2 GM/DL Albumin 3.7 3.2-4.5 GM/DL Urine Color YELLOW Urine Clarity CLEAR Urine pH 7 5-9 Urine Specific Simpson 1.010 L 1.016-1.022 Urine Protein NEGATIVE NEGATIVE Urine Glucose (UA) NEGATIVE NEGATIVE Urine Ketones NEGATIVE NEGATIVE Urine Nitrite NEGATIVE NEGATIVE Urine Bilirubin NEGATIVE NEGATIVE Urine Urobilinogen NORMAL NORMAL MG/DL Urine Leukocyte Esterase NEGATIVE NEGATIVE Urine RBC (Auto) NEGATIVE NEGATIVE Urine RBC NONE /HPF Urine WBC RARE /HPF Urine Crystals NONE /LPF Urine Bacteria NEGATIVE /HPF Urine Casts NONE /LPF Urine Mucus NEGATIVE /LPF Urine Culture Indicated NO My Orders Orders - YRAN VALENZUELA CHILDREN'S AIDE Cbc With Automated Diff (12/07/17 21:06) Comprehensive Metabolic Panel (12/07/17 21:06) BNP (12/07/17 21:06) Troponin I (12/07/17 21:06) Ekg Tracing (12/07/17 21:06) Chest 1 View, Ap/Pa Only (12/07/17 21:06) Iv Heplock-Insert (Order) (12/07/17 21:06) Ketorolac Injection (Toradol Injection) (12/07/17 22:30) Fentanyl Injection (Sublimaze Injection (12/07/17 22:30) Knee, 3 Views, Bilateral (12/07/17 22:38) Medications Given in ED Current Medications Medications Dose Ordered Sig/Cory Route Start Time Stop Time Status Last Admin Dose Admin Fentanyl Citrate 25 mcg ONCE ONCE IVP 12/07/17 22:30 12/07/17 22:31 DC 12/07/17 22:42 25 MCG Ketorolac Tromethamine 15 mg ONCE ONCE IVP 12/07/17 22:30 12/07/17 22:31 DC 12/07/17 22:42 15 MG Vital Signs/I&O 12/07/17 21:00 Temp 98.8 Pulse 61 Resp 20 B/P (MAP) 134/67 (89) Pulse Ox 94 O2 Delivery Room Air Capillary Refill : Departure Communication (Admissions) 2230-reports that she feels about the same, complains of pain to both legs. 8- questionable small nondisplaced fracture to the anterior aspect of the right patella.she maintains full flexion and extension abilities of the knee. Her legs are too large to accommodate a knee immobilizer. Impression Primary Impression: Cellulitis of both lower extremities Disposition: HOME, SELF-CARE Condition: Stable Departure-Patient Inst. Decision time for Depature: 22:30 Referrals: JOVON LING MD (PCP/Family) Primary Care Physician Patient Instructions: Cellulitis (Skin Infection), Adult (DC) Add. Discharge Instructions: 1. Take antibiotics as directed for the leg redness. Elevate your legs as much as possible. The more you elevates them the more the swelling will go down and the better they'll feel. Follow-up with your doctor later this week. Return to ER for any worsening. You should strongly consider moving from [facility] to a jail where you can have additional help. All discharge instructions reviewed with patient and/or family. Voiced understanding. Scripts Cephalexin (Cephalexin) 500 Mg Capsule 500 MG PO TID, #15 CAP Prov: RYAN VALENZUELA APRN 12/07/17 RYAN VALENZUELA APRN Dec 07, 2017 21:10
[2017-12-07 21:26] LABS: BASOPHILS % (AUTO) 1 % (0-10); EOSINOPHILS # (AUTO) 0.2 10^3/uL (0.0-0.3); EOSINOPHILS % (AUTO) 4 % (0-10); HEMATOCRIT 37 % (35-52); HEMOGLOBIN 11.9 G/DL (11.5-16.0); LYMPHOCYTES # (AUTO) 1.2 X 10^3 (1.0-4.0); LYMPHOCYTES % (AUTO) 22 % (12-44); MEAN CORPUSCULAR HEMOGLOBIN 32 PG (25-34); MEAN CORPUSCULAR HGB CONC 32 G/DL (32-36); MEAN CORPUSCULAR VOLUME 98 FL (80-99); MEAN PLATELET VOLUME 9.6 FL (7.4-10.4); MONOCYTES % (AUTO) 17 % (0-12); NEUTROPHILS # (AUTO) 3.2 X 10^3 (1.8-7.8); NEUTROPHILS % (AUTO) 57 % (42-75); PLATELET COUNT 221 10^3/uL (130-400); RED BLOOD COUNT 3.75 10^6/uL (4.35-5.85); RED CELL DISTRIBUTION WIDTH 12.7 % (10.0-14.5); WHITE BLOOD COUNT 5.6 10^3/uL (4.3-11.0)
[2017-12-07 21:48] LABS: ALANINE AMINOTRANSFERASE 18 U/L (0-55); ALBUMIN 3.7 GM/DL (3.2-4.5); ALKALINE PHOSPHATASE 132 U/L (40-136); BILIRUBIN,TOTAL 0.3 MG/DL (0.1-1.0); BUN/CREATININE RATIO 12; CARBON DIOXIDE 21 MMOL/L (21-32); CHLORIDE 108 MMOL/L (98-107); CREATININE SERUM 1.09 MG/DL (0.60-1.30); GFR ESTIMATED 50; GLUCOSE 93 MG/DL (70-105); POTASSIUM 3.6 MMOL/L (3.6-5.0); SODIUM 140 MMOL/L (135-145); TOTAL PROTEIN 6.8 GM/DL (6.4-8.2)
--- NOTE | 2017-12-07 21:57 | Diagnostic Imaging Report ---
INDICATION: Difficulty urinating. Comparison with 11/24/2017. Portable chest shows the lungs to be clear. Heart mildly enlarged. There is no pulmonary edema. No pneumothorax or pleural effusions. IMPRESSION: Normal portable chest. Dictated by: Dictated on workstation # [id number]
[2017-12-07] MEDS ORDERED: fentaNYL INJECTION 100 MCG/2 ML AMP IVP ONE (22:30)
[2017-12-07] MEDS ORDERED: KETOROLAC 30 MG/ML VIAL IVP ONE (22:30)
[2017-12-07] MEDS ORDERED: CEPH500C PO (22:31)
[2017-12-07 22:51] LABS: BILIRUBIN,URINE NEGATIVE (NEGATIVE); CLARITY,URINE CLEAR; COLOR,URINE YELLOW; GLUCOSE, URINE (UA) NEGATIVE (NEGATIVE); KETONES,URINE NEGATIVE (NEGATIVE); LEUKOCYTE ESTERASE ,URINE NEGATIVE (NEGATIVE); NITRITE,URINE NEGATIVE (NEGATIVE); PH,URINE 7 (5-9); PROTEIN,URINE NEGATIVE (NEGATIVE); UROBILINOGEN,URINE NORMAL (NORMAL)
[2017-12-07 23:01] LABS: BACTERIA,URINE NEGATIVE /HPF; WBC,URINE RARE /HPF
[2017-12-07 23:26] VITALS: BP 134/67
--- NOTE | 2017-12-08 05:31 | Diagnostic Imaging Report ---
INDICATION: Knee pain COMPARISON: None. FINDINGS: Multiple radiographic views of the bilateral knees joint demonstrate no acute fracture or dislocation. No focal osseous lesions are seen. No significant joint effusion is seen. The surrounding soft tissue structures are unremarkable. There are no radiopaque foreign bodies. IMPRESSION: 1. Unremarkable radiographic exam of the bilateral knees Dictated by: Dictated on workstation # [id number]
== END 2017-12-07 23:26 | disposition home or self-care (01) ==
LOC: EDUNIT# 20:58 → ER 20:59
DX: L03.115 Cellulitis of right lower limb (principal); L03.116 Cellulitis of left lower limb; I25.10 Atherosclerotic heart disease of native coronary artery without angina pectoris; E78.00 Pure hypercholesterolemia, unspecified; I10 Essential (primary) hypertension; F03.90 Unspecified dementia, unspecified severity, without behavioral disturbance, psychotic disturbance, mood disturbance, and anxiety; G40.909 Epilepsy, unspecified, not intractable, without status epilepticus; K21.9 Gastro-esophageal reflux disease without esophagitis; F31.9 Bipolar disorder, unspecified; G47.9 Sleep disorder, unspecified; Z87.2 Personal history of diseases of the skin and subcutaneous tissue; Z90.12 Acquired absence of left breast and nipple; Z88.0 Allergy status to penicillin; Z91.040 Latex allergy status; Z79.52 Long term (current) use of systemic steroids
CPT/HCPCS: 36415; 71045; 80053; 81000; 83880; 84484; 85025; 93005; 96374; 96375

== ENCOUNTER 2017-12-14 09:34 | Outpatient (RCR) | payer MEDICARE, BC, MEDICAID ==
[~2017-12-14 09:34] MED LIST changes: +CEPH500C PO; +CLON0.5T13 PO; -CLON0.5T3 PO; -KETO120S11 TOP; +KETO120S2 TOP; +TRAZ-189 PO; -TRAZ-28 PO
== END 2018-01-03 08:56 | disposition home or self-care (01) ==
PROVIDERS: ATTEND Nurse Practitioner Family
DX: M62.81 Muscle weakness (generalized) (principal); R26.9 Unspecified abnormalities of gait and mobility; M79.604 Pain in right leg; M79.605 Pain in left leg

== ENCOUNTER → 2017-12-16 | Outpatient (CLI) | payer MEDICARE, BC, MEDICAID ==
[~2017-12-16] VITALS: Ht 162.6 cm; Wt 108.9 kg
[~2017-12-16] MED LIST changes: -CLON0.5T13 PO; +CLON0.5T3 PO; +KETO120S11 TOP; -KETO120S2 TOP; -TRAZ-189 PO; +TRAZ-28 PO
[2017-12-16 10:33] VITALS: BP 136/70
[2017-12-16 10:45] VITALS: BP 124/81
--- NOTE | 2017-12-16 11:39 | Diagnostic Imaging Report ---
INDICATION: Left thyroid nodule. Sonographic guidance was provided for Dr. Ribeiro for performance of a left thyroid FNA. Multiple images of the left thyroid were obtained. Impression: Sonographic guidance for left thyroid FNA for Dr. Ribeiro. Dictated by: Dictated on workstation # [id number]
== END ==
LOC: RAD 09:30
PROVIDERS: ATTEND Otolaryngology Otolaryngology/Facial Plastic Surgery
DX: E04.1 Nontoxic single thyroid nodule (principal)
CPT/HCPCS: 76942; 88305

== ENCOUNTER 2018-05-15 14:56 | Emergency (ER) | payer MEDICARE, BC, MEDICAID ==
[~2018-05-15] VITALS: Ht 157.5 cm; Wt 81.6 kg
[~2018-05-15 14:56] MED LIST changes: +CLON0.5T13 PO; -CLON0.5T3 PO; -KETO120S11 TOP; +KETO120S2 TOP; +TRAZ-189 PO; -TRAZ-28 PO
--- OUTSIDE RECORDS SUMMARY | 2018-05-15 15:01 | XMS REPORT | Clinical Summary ---
Author Author [facility] Organization [facility] Address Unknown Phone Unavailable Care Team Providers Care Non Destructive Testing Scientist Name Role Phone Addy Farr MD PCP Allergies Not on File Current Medications Not on file Active Problems Not on file Social History Tobacco Use Types Packs/Day Years Used Date Never Assessed Sex Assigned at Date Recorded Not on file Last Filed Vital Signs Not on file Plan of Treatment Health Maintenance Due Date Last Done Comments Hepatitis C Screen 1950 Medicare Annual Wellness 1950 Td # 1950 Colorectal Screening via 2001 Colonoscopy Mammogram Screening 2001 Zoster Vaccine# (1 of 2) 2001 Depression Screening 2016 PHQ-9 # Fall Risk Assessment # 2016 Osteoporosis Screening 2016 Pneumococcal Immunization 2016 65+ (1 of 2 - PCV13) Influenza Vaccine (#1) 2018 Results Not on filefrom Last 3 Months
--- OUTSIDE RECORDS SUMMARY | 2018-05-15 15:01 | XMS REPORT | Clinical Summary ---
Author Author [facility] Organization [facility] Address Unknown Phone Unavailable Care Team Providers Care Under Water Assistant Name Role Phone Andres Jo MD [address] Apple Prajapati MD Unavailable Lex Dunne MD, [facility] Unavailable Heavenly Artis MD Unavailable Lori Mistry [...] in the Health Information Management department at [phone] for further assistance in locating additional records.[facility] Allergies Active Allergy Reactions Severity Noted [...] disorder (HCC) Brain injury (HCC) Dementia Psychosis (HCC) GERD (gastroesophageal reflux disease) Restless leg syndrome Social History Tobacco Use Types Packs/Day Years Used Date Current Every Day Smoker Alcohol Use Drinks/Week oz/Week Comments No Sex Assigned at Date Recorded Not on file Last Filed Vital Signs Vital Sign Reading Time Taken Blood Pressure 135/52 05/19/2016 8:00 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 Pulse 56 05/18/2016 4:43 PM 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 Temperature 36.4 C (97.6 F) 05/19/2016 8:00 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 Respiratory Rate - - Oxygen Saturation 97% 05/19/2016 8:00 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 Inhaled Oxygen - - Concentration Weight 95.3 kg (210 lb) 05/18/2016 4:43 PM 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 Height 162.6 cm (5' 4") 05/18/2016 4:43 PM 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 Body Mass Index 36.05 05/18/2016 4:43 PM 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 Plan of Treatment Health Maintenance Due Date Last Done Comments HEPATITIS C SCREENING 1951 PHYSICAL (COMPREHENSIVE) 1958 EXAM PERTUSSIS VACCINE 1962 TETANUS VACCINE 1968 COLORECTAL CANCER 2001 SCREENING SHINGLES RECOMBINANT 2001 VACCINE (1 of 2) BREAST CANCER SCREENING 07/22/2008 07/22/2007, 07/22/2007 OSTEOPOROSIS 2016 SCREENING/MONITORING PNEUMONIA (PCV13/PPSV23) 2016 VACCINES (1 of 2 - PCV13) INFLUENZA VACCINE 02/02/2018 Results Not on filefrom Last 3 Months
--- OUTSIDE RECORDS SUMMARY | 2018-05-15 15:02 | XMS REPORT ---
Author Author FELECIA STACK Herman [facility] Address Unknown Care Team Providers Care [facility] Medical Biller Name Role Phone FELECIA STACK Unavailable PROBLEMS Type Condition ICD9-CM Code ZWT96-QU Code Onset Dates Condition Status SNOMED Code Problem Loss of weight 783.21 Active 639814616 Problem Pain in soft tissues of limb 729.5 Active 88415486 Problem Other malaise and fatigue 780.79 Active 126064046 Problem Other and unspecified hyperlipidemia 272.4 Active 71986831 Problem Other specified cardiac dysrhythmias 427.89 Active 984734602 Problem Cervicalgia 723.1 Active 95098800 Problem Muscle weakness (generalized) 728.87 Active 01579785 Problem Unspecified symptom associated with female genital organs 625.9 Active 486484970 Problem Unspecified arthropathy, site 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.90 Active 383998605 ALLERGIES Substance Reaction Event Type Date Status Latex Exam Gloves Unknown Drug Allergy Sep, Active Penicillamine Unknown Drug Allergy Sep, Active ENCOUNTERS Encounter Location Date Diagnosis [facility] [id number] [place] [address] [id number] Sep, Dental caries K02.9 [facility] [id number] [place] [address] [id number] Sep, [facility] [id number] [place] [address] [id number] Sep, Dental examination Z01.20 [facility] [id number] [place] [address] [id number] May, Dental examination Z01.20 [facility] [id number] [place] [address] [id number] Apr, Dental examination Z01.20 [facility] [address] [place] [address] [phone] 5693 Dec, [facility] [id number] [phone] Feb, Dental examination Z01.20 [facility] [address] [id number] Jan, Dental caries K02.9 [facility] [address] [place] [address] [phone] Dec, Dental examination Z01.20 [facility] [id number] [place] [address] [id number] Oct, Dental examination Z01.20 [facility] [id number] [place] [address] [id number] Aug, Encounter for dental examination Z01.20 [facility] [id number] [place] [address] 27076- [phone] Aug, [facility] [id number] [place] [address] [phone]- [phone] Mar, [facility] [id number] [place] [address] [phone] Mar, Dental examination V72.2 [facility] [address] [place] [address] 44080- 8296 Feb, Unspecified arthropathy, site 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.90 ; Psychotic disorder 298.9 and Seborrhea 706.3 [facility] [address], [place] [address] Jan, [facility] [id number] [place] [address] [phone]- 7868 Dec, Dizziness 780.4 and Pain in soft tissues of limb 729.5 [facility] [address] [place] [address] 69715- 5326 Dec, [facility] [address] [place] [address] [phone]- [phone] Oct, [facility] [id number] [place] [address] 5646 13 Oct, 2014 [facility] [place] [facility] [address] [id number] [place] [address]- 0627 19 Sep, 2014 [facility] [place] [facility] [address] [id number] [place] [address]- 5554 19 Sep, 2014 [facility] [place] [facility] [address] [id number] [place] [address]- 8383 11 Sep, 2014 [facility] [place] [facility] [address] [id number] [place] [address]- 5398 11 Sep, 2014 [facility] [place] [facility] [address] [id number] [place] [address]- 0246 13 Aug, 2014 [facility] [place] [facility] [address] [id number] [place] [address]- 1176 13 Aug, 2014 [facility] [place] [facility] [address] [id number] [place] [address]- 3771 17 May, 2014 [facility] [place] [facility] [address] [id number] [place] [address]- 6097 17 May, 2014 [facility] [place] [facility] [address] [id number] [place] [address]- 0565 17 May, 2014 [facility] [place] [facility] [address] [id number] [place] [address]- 6776 17 May, 2014 [facility] [place] [facility] [address] [id number] [place] [address]- 4171 17 May, 2014 [facility] [place] [facility] [address] [id number] [place] [address]- 4382 17 May, 2014 [facility] [place] [facility] [address] [id number] [place] [address]- 8280 17 May, 2014 [facility] [place] [facility] [address] [id number] [place] [address]- 1472 14 May, 2014 [facility] [place] [facility] [address] [id number] [place] [address]- 5239 May, [facility] [place] [facility] [address] [id number] [place] [address]- 2462 May, [facility] [place] [facility] [address] [id number] [place] [address]- 3008 May, [facility] [place] [facility] [address] [id number] [place] [address]- 0639 Apr, [facility] [place] [facility] [address] [id number] [place] [address]- 0524 Apr, [facility] [place] [facility] [address] [id number] [place] [address]- 3020 Feb, [facility] [place] [facility] [address] [id number] [place] [address]- 7062 Feb, [facility] [place] [facility] [address] [id number] [place] [address]- 4446 Feb, [facility] [place] [facility] [address] [id number] [place] [address]- 8170 Feb, [facility] [place] [facility] [address] [id number] [place] [address]- 6963 Jan, [facility] [place] [facility] [address] [id number] [place] [address]- 4001 Jan, [facility] [place] [facility] [address] [id number] [place] [address]- 8150 Jan, [facility] [place] [facility] [address] [id number] [place] [address]- 4611 Jan, [facility] [place] [facility] [address] [id number] [place] [address]- 3958 Dec, [facility] [place] [facility] [address] [id number] [place] [address]- 7728 Dec, [facility] [place] [facility] [address] [id number] [place] [address]- 6280 Dec, [facility] [place] [facility] [address] [id number] [place] [address]- 3909 Dec, [facility] [address] [id number] [place] [address]- 4744 Oct, [facility] [place] [facility] [address] [id number] [place] [address]- 6758 Oct, [facility] [place] [facility] [address] [id number] [place] [address]- 1247 Oct, [facility] [place] [facility] [address] [id number] [place] [address]- 6873 Oct, [facility] [place] [facility] [address] [id number] [place] [address]- 4367 Oct, [facility] [place] [facility] [address] [id number] [place] [address]- 6638 Oct, [facility] [address] [id number] [place] [address]- 8573 Oct, [facility] [place] [facility] [address] [id number] [place] [address]- 2088 Jul, [facility] [place] [facility] [address] [id number] [place] [address]- 9097 Jul, [facility] [place] [facility] [address] [id number] [place] [address]- 0222 Jun, [facility] [place] [facility] [address] [id number] [place] [address]- 4066 Jun, [facility] [place] [facility] [address] [id number] [place] [address]- 5243 Jun, [facility] [place] [facility] [address] [id number] [place] [address]- 6435 Jun, [facility] [place] [facility] [address] [id number] [place] [address]- 0725 May, [facility] [place] [facility] [address] [id number] [place] [address]- 4990 May, [facility] [place] [facility] [address] [id number] [place] [address]- 7466 May, [facility] [place] [facility] [address] [id number] [place] [address]- 3035 May, [facility] [place] [facility] [address] [id number] [place] [address]- 5437 Apr, [facility] [place] [facility] [address] [id number] [place] [address]- 9097 Apr, [facility] [place] [facility] [address] [id number] [place] 1480 Apr, [facility] [place] [facility] [address] [id number] [place] [address]- 3182 Apr, [facility] [place] [facility] [address] [id number] [place] 8527 Apr, [facility] [place] [facility] [address] [id number] [place] [address]- 6627 Mar, [facility] [place] [facility] [address] [id number] [place] [address]- 3531 Mar, [facility] [place] [facility] [address] [id number] [place] [address]- 1807 Mar, [facility] [place] [facility] [address] [id number] [place] [address]- 9179 Mar, [facility] [place] [facility] [address] [id number] [place] [address]- 4556 Feb, [facility] [place] [facility] [address] [id number] [place] [address]- 3562 Jan, [facility] [place] [facility] [address] [id number] [place] [address]- 6942 Jan, [facility] [place] [facility] [address] [id number] [place] [address]- 1426 Jan, [facility] [place] [facility] [address] [id number] [place] [address]- 5671 Jan, [facility] [address] [id number] [place] [address]- 4487 Jan, [facility] [place] [facility] [address] [id number] [place] [address]- 2244 Jan, [facility] [place] [facility] [address] [id number] [place] [address]- 1664 Jan, [facility] [place] [facility] [address] [id number] [place] [address]- 4515 November, [facility] [place] [facility] [address] [id number] [place] [address]- 7244 Sep, [facility] [place] [facility] [address] [id number] [place] [address]- 2172 Sep, [facility] [place] [facility] [address] [id number] [place] [address]- 2105 Aug, [facility] [place] [facility] [address] [id number] [place] [address]- 2692 Aug, [facility] [place] [facility] [address] [id number] [place] [address]- 8836 Jul, [facility] [place] [facility] [address] [id number] [place] [address]- 3110 Jul, [facility] [place] [facility] [address] [id number], [place] [address]- 7503 Jul, [facility] [place] [facility] [address] [id number], [place] [address]- 2545 May, [facility] [place] [facility] [address] [id number] [place] [address]- 4776 Apr, [facility] [place] [facility] [address] [id number] [place] [address]- 0317 Apr, [facility] [place] [facility] [address] [id number] [place] [address]- 2546 Apr, [facility] [place] [facility] [address] [id number] [place] [address]- 2867 Apr, [facility] [address] [id number] [place] [address]- 1098 Apr, [facility] [address] [id number] [place] [address]- 4005 Mar, [facility] [address] [id number] [place] [address]- 8221 Feb, [facility] [address] [id number] [place] [address]- 8745 Feb, [facility] [address] [id number] [place] [address]- 3682 Jan, [facility] [address] [id number] [place] [address]- 0366 Jan, [facility] [address] [id number] [place] [address]- 8442 November, [facility] [address] [id number] [place] [address]- 6979 20 Oct, 2011 [facility] [address] [id number] [place] [address]- 7087 19 Oct, 2011 [facility] [address] [id number] [place] [address]- 6502 18 Oct, 2011 [facility] [address] [id number] [place] [address]- 7111 18 Oct, 2011 [facility] [address] [id number] [place] [address]- 2800 16 Oct, 2011 [facility] [place] [facility] [address] [id number] [place] [address]- 1905 13 Oct, 2011 [facility] [address] [id number] [place] [address]- 2665 12 Oct, 2011 [facility] [address] [id number] [place] [address]- 9440 11 Oct, 2011 [facility] [place] [facility] [address] [id number] [place] [address]- 3928 10 Oct, 2011 [facility] [place] [facility] [address] [id number] [place] [address]- 4159 Oct, [facility] [place] [facility] [address] [id number] [place] [address]- 2642 Sep, [facility] [place] [facility] [address] [id number] [place] [address]- 9342 Aug, [facility] [place] [facility] [address] [id number] [place] [address]- 7921 Jun, [facility] [place] [facility] [address] [id number] [place] [address]- 5523 14 Jun, 2011 [facility] [place] [facility] [address] [id number] [place] [address]- 5113 Jun, [facility] [place] [facility] [address] [id number] [place] [address]- 5852 Jun, [facility] [place] [facility] [address] [id number] [place] [address]- 5181 Jun, [facility] [place] [facility] [address] [facility] [id number], [place] [address]- 2232 May, [facility] [place] [facility] [address] [id number], [place] [address]- 1655 Apr, [facility] [place] [facility] [address] [id number], [place] [address]- 9270 Apr, [facility] [place] [facility] [address] [id number] [place] [address]- 4339 15 Oct, 2010 [facility] [place] [facility] [address] [id number], [place] [address]- 1606 09 Jun, 2010 [facility] [place] [facility] [address] [facility] [id number], [place] [address]- 1703 07 Jun, 2010 [facility] [place] [facility] [address] [id number], [place] [address]- 7576 Jun, [facility] [address] [address]- 3534 Jun, [facility] [address], [place] [address]- 8464 May, [facility] [address] [address]- 5863 May, [facility] [id number] [place] [address] 65269- 6729 May, [facility] [id number] [place] [address] 23772- 2714 Apr, [facility] [id number] [place] [address] 26513- 3583 Apr, [facility] [id number] [place] [address] 26493- 2293 Apr, [facility] [address], [place] [address]- 0836 Oct, [facility] [id number] [place] [address] 13781- 7123 Jul, [facility] [address], [place] [address]- 0913 Apr, [facility] [address], [place] [address]- 0403 Mar, IMMUNIZATIONS No Known Immunizations SOCIAL HISTORY Never Assessed REASON FOR VISIT kory PLAN OF CARE Activity Details Follow Up prn Reason:45 min TE-pending med [place] VITAL SIGNS Blood pressure systolic 117 mmHg 2017-09-14 Blood pressure diastolic 80 mmHg 2017-09-14 MEDICATIONS Medication Instructions Dosage Frequency Start Date End Date Duration Status Memantine HCl Active Oxybutynin Active Zolpidem Tartrate ER Not-Taking [place] Active Calcium Active Aspir-81 81 MG Orally Once a day 1 tablet 24h Active Topamax 200 MG Orally Twice a day 1 tablet 12h Not-Taking [place] Active Hydrocodone-Acetaminophen Active Lipitor 80 MG Orally Once a day 1 tablet 24h Not-Taking Spironolactone Active Magnesium Citrate Active Risperdal Active Celexa Active Calcium-Vitamin D 600-200 MG-UNIT Active Exelon 9.5 APPLY 1 PATCH AND CHANGE AFTER 24 HOURS 30 Active Meloxicam 7.5 MG Orally Once a day 1 tablet 24h Not-Taking Ambien 5 MG Orally Once a day 1 tablet at bedtime as needed 24h 24 Feb, 2015 Active Pramipexole Dihydrochloride Active Topiramate Active Bisacodyl EC Active Ketoconazole Active Clonazepam Active Potassium Chloride Sofya ER 10 MEQ Orally once a day 1 tablet with food 24h Not-Taking Cyanocobalamin 1000 MCG/ML Injection IM every two weeks 1 ml Not -Taking Ambien 10 MG Orally Once a day 1 tablet at bedtime as needed 24h Active LamoTRIgine ER Active Exelon 4.6 MG/24HR Transdermal Once a day 1 patch to skin 24h Not- Taking Lasix Active Folic Acid 1 MG Orally Once a day 1 tablet 24h Active Cataflam Active Keppra 750 MG Orally every 12 hrs 2 tablets 12h Active Namenda 5 MG Orally Twice a day 1 tablet 12h Not-Taking Cetirizine HCl 10 MG Orally Once a day 1 tablet 24h Not-Taking Vitamin B 12 Not-Taking Melatonin Active Aricept 10 MG Orally Once a day 1 tablet at bedtime 24h Active Furosemide 20 MG Orally Once a day 1 tablet 24h Not-Taking Atorvastatin Calcium 40 MG Orally Once a day 1 tablet 24h Active Klor-Con 10 Active Diclofenac Sodium CR Active Lamotrigine Active Donepezil HCl 5 MG Orally Once a day 1 tablet at bedtime 24h Not- Taking Omeprazole 20 MG Orally Once a day 1 capsule 24h Active Trazodone HCl 50 MG Orally Once a day 1 tablet at bedtime as needed 24h Active Klonopin 0.5 MG Orally Once a day 1 tablet 24h Active RESULTS No Results PROCEDURES Procedure Date Ordered Result Body Site LTD ORAL EVALUATION - PROBLEM FOCUS September 14, 2017 INTRAORL-PERIAPICAL 1 FILM [id number] September 14, 2017 INSTRUCTIONS MEDICATIONS ADMINISTERED No Known Medications [...]
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
--- OUTSIDE RECORDS SUMMARY | 2018-05-15 15:03 | XMS REPORT ---
Author Author VANIFELECIA CELAYA Herman [facility] Address Unknown Care Team Providers Care Pallet Assembler Name Role Phone FELECIA STACK Unavailable PROBLEMS Type Condition ICD9-CM Code LVL00-JE Code Onset Dates Condition Status SNOMED Code Problem Loss of weight 783.21 Active 816724000 Problem Pain in soft tissues of limb 729.5 Active 33487014 Problem Other malaise and fatigue 780.79 Active 749318682 Problem Other and unspecified hyperlipidemia 272.4 Active 77389256 Problem Other specified cardiac dysrhythmias 427.89 Active 339307145 Problem Cervicalgia 723.1 Active 47813497 Problem Muscle weakness (generalized) 728.87 Active 97608308 Problem Unspecified symptom associated with female genital organs 625.9 Active 158534086 Problem Unspecified arthropathy, site 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.90 Active [id number] ALLERGIES No Information ENCOUNTERS Encounter Location Date Diagnosis [facility] [address] [id number] Sep, Dental caries K02.9 [facility] [address] [id number] Sep, [facility] [address] [id number] Sep, Dental examination Z01.20 [facility] [id number] [place] [address] [id number] May, Dental examination Z01.20 [facility] [address] [id number] Apr, Dental examination Z01.20 [facility] [id number] [place] [address] 07506- 2569 Dec, [facility] [address] [id number] Feb, Dental examination Z01.20 [facility] [id number] [id number] Jan, Dental caries K02.9 [facility] [id number] [place] [address] [id number] Dec, Dental examination Z01.20 [facility] [id number] [place] [address] [id number] Oct, Dental examination Z01.20 [facility] [id number] [place] [address] [id number] Aug, Encounter for dental examination Z01.20 [facility] [place] [facility] [id number] [place] [address] 90360- 2546 Aug, [facility] [place] [facility] [id number] [place] [address] 85890 2546 Mar, [facility] [id number] [place] [address] [id number] Mar, Dental examination V72.2 [facility] [place] [facility] [id number] [place] [address] 64164- 0816 Feb, Unspecified arthropathy, site 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.90 ; Psychotic disorder 298.9 and Seborrhea 706.3 [facility] [place] [facility] [id number] [place] [address] 96242- 7086 Jan, [facility] [place] [facility] [id number] [place] [address] 78047- 0356 Dec, Dizziness 780.4 and Pain in soft tissues of limb 729.5 [facility] [place] [facility] [id number] [place] [address] 50435- 5256 Dec, [facility] [place] [facility] [id number] [place] [address] 84458- 5275 Oct, [facility] [place] [facility] [id number] [place] [address] 30105- 2816 Oct, [facility] [place] [facility] [address] [id number] [place] [address]- 0383 19 Sep, 2014 [facility] [place] [facility] [address] [id number] [place] [address]- 4762 19 Sep, 2014 [facility] [place] [facility] [address] [id number] [place] [address]- 9358 11 Sep, 2014 [facility] [place] [facility] [address] [id number] [place] [address]- 7968 11 Sep, 2014 [facility] [place] [facility] [address] [id number] [place] [address]- 2099 13 Aug, 2014 [facility] [place] [facility] [address] [id number] [place] [address]- 9113 13 Aug, 2014 [facility] [place] [facility] [address] [id number] [place] [address]- 7170 17 May, 2014 [facility] [place] [facility] [address] [id number] [place] [address]- 6810 17 May, 2014 [facility] [place] [facility] [address] [id number] [place] [address]- 1296 17 May, 2014 [facility] [place] [facility] [address] [id number] [place] [address]- 0001 17 May, 2014 [facility] [place] [facility] [address] [id number] [place] [address]- 0842 17 May, 2014 [facility] [place] [facility] [address] [id number] [place] [address]- 2907 17 May, 2014 [facility] [place] [facility] [address] [id number] [place] [address]- 5228 17 May, 2014 [facility] [place] [facility] [address] [id number] [place] [address]- 9699 14 May, 2014 [facility] [place] [facility] [address] [id number] [place] [address]- 8725 14 May, 2014 [facility] [place] [facility] [address] [id number] [place] [address]- 8256 May, [facility] [place] [facility] [address] [id number] [place] [address]- 8977 May, [facility] [place] [facility] [address] [id number] [place] [address]- 1737 Apr, [facility] [place] [facility] [address] [id number] [place] [address]- 2430 Apr, [facility] [place] [facility] [address] [id number] [place] [address]- 2080 Feb, [facility] [place] [facility] [address] [id number] [place] [address]- 5808 Feb, [facility] [place] [facility] [address] [id number] [place] [address]- 6422 Feb, [facility] [place] [facility] [address] [id number] [place] [address]- 6028 Feb, [facility] [place] [facility] [address] [id number] [place] [address]- 3037 Jan, [facility] [place] [facility] [address] [id number] [place] [address]- 5649 Jan, [facility] [place] [facility] [address] [id number] [place] [address]- 4404 Jan, [facility] [place] [facility] [address] [id number] [place] [address]- 0106 Jan, [facility] [place] [facility] [address] [id number] [place] [address]- 3357 Dec, [facility] [place] [facility] [address] [id number] [place] [address]- 7743 Dec, [facility] [place] [facility] [address] [id number] [place] [address]- 6085 Dec, [facility] [place] [facility] [address] [id number] [place] [address]- 3643 Dec, [facility] [place] [facility] [address] [id number] [place] [address]- 3142 28 Oct, 2013 [facility] [address] [id number] [place] [address]- 5875 28 Oct, 2013 [facility] [address] [id number] [place] [address]- 1683 14 Oct, 2013 [facility] [address] [id number] [place] [address]- 5094 14 Oct, 2013 [facility] [address] [id number] [place] [address]- 6345 Oct, [facility] [address] [id number] [place] [address]- 2236 Oct, [facility] [address] [id number] [place] [address]- 5135 Oct, [facility] [address] [id number] [place] [address]- 4521 Jul, [facility] [address] [id number] [place] [address]- 6786 15 Jul, 2013 [facility] [address] [id number] [place] [address]- 5507 Jun, [facility] [address] [id number] [place] [address]- 6159 Jun, [facility] [place] [facility] [address] [id number] [place] [address]- 4904 Jun, [facility] [address] [id number] [place] [address]- 6906 Jun, [facility] [place] [facility] [address] [id number] [place] [address]- 9021 May, [facility] [place] [facility] [address] [id number] [place] [address]- 3572 May, [facility] [address] [id number] [place] [address]- 6743 May, [facility] [place] [facility] [address] [id number] [place] [address]- 3600 May, [facility] [place] [facility] [address] [id number] [place] [address]- 7260 Apr, [facility] [place] [facility] [address] [id number] [place] [address]- 2676 Apr, [facility] [place] [facility] [address] [id number] [place] [address]- 5297 Apr, [facility] [place] [facility] [address] [id number] [place] 8793 Apr, [facility] [place] [facility] [address] [id number] [place] [address]- 9067 Apr, [facility] [place] [facility] [address] [id number] [place] [address]- 4585 Mar, [facility] [place] [facility] [address] [id number] [place] [address]- 0241 Mar, [facility] [place] [facility] [address] [id number] [place] [address]- 8033 Mar, [facility] [place] [facility] [address] [id number] [place] [address]- 2908 Mar, [facility] [place] [facility] [address] [id number] [address]- 0928 Feb, [facility] [place] [facility] [address] [id number], [place] [address]- 2787 Jan, [facility] [place] [facility] [address] [id number] [place] [address]- 9747 Jan, [facility] [place] [facility] [address] [id number], [place] [address]- 5057 Jan, [facility] [place] [facility] [address] [id number], [place] [address]- 5648 Jan, [facility] [place] [facility] [address] [id number], [place] [address]- 2468 Jan, [facility] [address] [id number] [place] [address]- 0671 Jan, [facility] [place] [facility] [address] [id number] [place] [address]- 1519 Jan, [facility] [place] [facility] [address] [id number] [place] [address]- 0355 November, [facility] [place] [facility] [address] [id number] [place] [address]- 6010 Sep, [facility] [place] [facility] [address] [id number] [place] [address]- 3438 Sep, [facility] [place] [facility] [address] [id number] [place] [address]- 1114 Aug, [facility] [place] [facility] [address] [id number] [place] [address]- 4248 Aug, [facility] [place] [facility] [address] [id number] [place] [address]- 3562 Jul, [facility] [place] [facility] [address] [id number] [place] [address]- 2288 Jul, [facility] [place] [facility] [address] [id number] [place] [address]- 3671 Jul, [facility] [place] [facility] [address] [id number] [place] [address]- 5561 May, [facility] [place] [facility] [address] [id number] [place] [address]- 9703 Apr, [facility] [place] [facility] [address] [id number] [place] [address]- 3460 Apr, [facility] [place] [facility] [address] [id number] [place] [address]- 0758 Apr, [facility] [place] [facility] [address] [id number] [place] [address]- 7544 Apr, [facility] [place] [facility] [address] [id number] [place] [address]- 9244 17 Apr, 2012 [facility] [place] [facility] [address] [id number] [place] [address]- 8326 Mar, [facility] [place] [facility] [address] [id number] [place] [address]- 3776 Feb, [facility] [place] [facility] [address] [id number] [place] [address]- 1334 Feb, [facility] [place] [facility] [address] [id number] [place] [address]- 5860 Jan, [facility] [place] [facility] [address] [id number] [place] [address]- 5155 Jan, [facility] [place] [facility] [address] [id number] [place] [address]- 2782 November, [facility] [place] [facility] [address] [id number] [place] [address]- 7273 20 Oct, 2011 [facility] [place] [facility] [address] [id number] [place] [address]- 7067 19 Oct, 2011 [facility] [place] [facility] [address] [id number] [place] [address]- 9510 18 Oct, 2011 [facility] [place] [facility] [address] [id number] [place] [address]- 0709 18 Oct, 2011 [facility] [place] [facility] [address] [id number] [place] [address]- 5401 16 Oct, 2011 [facility] [place] [facility] [address] [id number] [place] [address]- 0669 13 Oct, 2011 [facility] [place] [facility] [address] [id number] [place] [address]- 2979 12 Oct, 2011 [facility] [place] [facility] [address] [id number] [place] 3716 11 Oct, 2011 [facility] [place] [facility] [address] [id number] [place] [address]- 5286 10 Oct, 2011 [facility] [place] [facility] [address] [id number] [place] [address]- 5886 10 Oct, 2011 [facility] [place] [facility] [address] [id number] [place] [address]- 7714 Sep, [facility] [place] [facility] [address] [facility] [id number] [place] [address]- 2412 10 Aug, 2011 [facility] [place] [facility] [address] [id number] [place] [address]- 3204 Jun, [facility] [place] [facility] [address] [id number] [place] [address]- 6848 Jun, [facility] [place] [facility] [address] [id number] [place] [address]- 5207 14 Jun, 2011 [facility] [place] [facility] [address] [id number] [place] [address]- 4249 Jun, [facility] [place] [facility] [address] [id number] [place] [address]- 1780 Jun, [facility] [place] [facility] [address] [id number] [place] [address]- 7991 May, [facility] [place] [facility] [address] [id number] [place] [address]- 4635 Apr, [facility] [place] [facility] [address] [id number], [place] [address]- 5087 Apr, [facility] [place] [facility] [address] [id number], [place] [address]- 2448 15 Oct, 2010 [facility] [place] [facility] [address] [id number] [place] [address]- 1324 Jun, [facility] [place] [facility] [address] [id number] [place] [address]- 2731 Jun, [facility] [place] [facility] [address] [facility] [id number] [place] [address]- 2879 Jun, [facility] [place] [facility] [address] [address] Jun, [facility] [place] [facility] [address] [address]- 5420 May, [facility] [place] [facility] [address] 1121 May, [facility] [place] [facility] [address] 9721 May, [facility] [place] [facility] [address] [address]- 5485 Apr, [facility] [place] [facility] [id number] [place] [address] 305846- 4649 Apr, [facility] [place] [facility] [id number] [place] [address] 25867- 9335 Apr, [facility] [place] [facility] [id number] [place] [address] 51820- 3280 Oct, [facility] [place] [facility] [address] [address]- 2869 Jul, [facility] [place] [facility] [address], [place] [address]- 0843 Apr, [facility] [place] [facility] [address], [place] [address]- 0935 Mar, IMMUNIZATIONS No Known Immunizations SOCIAL HISTORY Never Assessed REASON FOR VISIT Rx PLAN OF CARE VITAL SIGNS MEDICATIONS No Known Medications RESULTS No Results PROCEDURES No Known procedures INSTRUCTIONS MEDICATIONS ADMINISTERED No Known Medications MEDICAL [...]
--- OUTSIDE RECORDS SUMMARY | 2018-05-15 15:04 | XMS REPORT ---
Author Author FELECIA STACK Herman [facility] Address Unknown Care Team Providers Care [employer] Aide Name Role Phone FELECIA STACK Unavailable PROBLEMS Type Condition ICD9-CM Code TIX81-SX Code Onset Dates Condition Status SNOMED Code Problem Loss of weight 783.21 Active 691453694 Problem Pain in soft tissues of limb 729.5 Active 45151068 Problem Other malaise and fatigue 780.79 Active 493746442 Problem Other and unspecified hyperlipidemia 272.4 Active 82474153 Problem Other specified cardiac dysrhythmias 427.89 Active 623538097 Problem Cervicalgia 723.1 Active 86563612 Problem Muscle weakness (generalized) 728.87 Active 04096817 Problem Unspecified symptom associated with female genital organs 625.9 Active 371004576 Problem Unspecified arthropathy, site 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.90 Active 959766694 ALLERGIES Substance Reaction Event Type Date Status Latex Exam Gloves Unknown Drug Allergy May, Active Penicillamine Unknown Drug Allergy May, Active ENCOUNTERS Encounter Location Date Diagnosis [facility] [id number] [place] [address] [id number] Sep, Dental caries K02.9 [facility] [id number] [place] [address] [id number] Sep, [facility] [id number] [place] [address] [id number] Sep, Dental examination Z01.20 [facility] [id number] [place] [address] [id number] May, Dental examination Z01.20 [facility] [id number] [place] [address] [id number] Apr, Dental examination Z01.20 [facility] [id number] [place] [address] 660935- 6792 Dec, [facility] [id number] [id number] Feb, Dental examination Z01.20 [facility] [address] [id number] Jan, Dental caries K02.9 [facility] [address] [place] [address] [id number] Dec, Dental examination Z01.20 [facility] [id number] [place] [address] [id number] Oct, Dental examination Z01.20 [facility] [id number] [place] [address] [id number] Aug, Encounter for dental examination Z01.20 [facility] [id number] [place] [address] 68197- 0406 Aug, [facility] [id number] [place] [address] 99554- 2546 Mar, [facility] [id number] [place] [address] [id number] Mar, Dental examination V72.2 [facility] [address] [place] [address] 36805- 2556 Feb, Unspecified arthropathy, site 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.90 ; Psychotic disorder 298.9 and Seborrhea 706.3 [facility] [address] [address] 4716 Jan, [facility] [id number] [place] [address] 54416- 6885 Dec, Dizziness 780.4 and Pain in soft tissues of limb 729.5 [facility] [id number] [place] [address] 92272- 9026 Dec, [facility] [address] [place] [address] 73542- 9379 Oct, [facility] [id number] [address] 1866 13 Oct, 2014 [facility] [place] [facility] [address] [id number] [place] [address]- 0483 19 Sep, 2014 [facility] [place] [facility] [address] [id number] [place] [address]- 7060 19 Sep, 2014 [facility] [place] [facility] [address] [id number] [place] [address]- 6572 11 Sep, 2014 [facility] [place] [facility] [address] [id number] [place] [address]- 8145 11 Sep, 2014 [facility] [place] [facility] [address] [id number] [place] [address]- 7148 13 Aug, 2014 [facility] [place] [facility] [address] [id number] [place] [address]- 2726 13 Aug, 2014 [facility] [place] [facility] [address] [id number] [place] [address]- 6847 17 May, 2014 [facility] [place] [facility] [address] [id number] [place] [address]- 0224 17 May, 2014 [facility] [place] [facility] [address] [id number] [place] [address]- 6651 17 May, 2014 [facility] [place] [facility] [address] [id number] [place] [address]- 6922 17 May, 2014 [facility] [place] [facility] [address] [id number] [place] [address]- 9799 17 May, 2014 [facility] [place] [facility] [address] [id number] [place] [address]- 6931 17 May, 2014 [facility] [place] [facility] [address] [id number] [place] [address]- 9191 17 May, 2014 [facility] [place] [facility] [address] [id number] [place] [address]- 5711 14 May, 2014 [facility] [place] [facility] [address] [id number] [place] [address]- 4682 May, [facility] [place] [facility] [address] [id number] [place] [address]- 1641 May, [facility] [place] [facility] [address] [id number] [place] [address]- 7942 May, [facility] [place] [facility] [address] [id number] [place] [address]- 3864 Apr, [facility] [place] [facility] [address] [id number] [place] [address]- 8241 Apr, [facility] [place] [facility] [address] [id number] [place] [address]- 2095 Feb, [facility] [place] [facility] [address] [id number] [place] [address]- 8840 Feb, [facility] [place] [facility] [address] [id number] [place] [address]- 7331 Feb, [facility] [place] [facility] [address] [id number] [place] [address]- 3037 Feb, [facility] [place] [facility] [address] [id number] [place] [address]- 9132 Jan, [facility] [place] [facility] [address] [id number] [place] [address]- 6109 Jan, [facility] [place] [facility] [address] [id number] [place] [address]- 5684 Jan, [facility] [place] [facility] [address] [id number] [place] [address]- 4765 Jan, [facility] [place] [facility] [address] [id number] [place] [address]- 9228 Dec, [facility] [place] [facility] [address] [id number] [place] [address]- 4712 Dec, [facility] [place] [facility] [address] [id number] [place] [address]- 9968 Dec, [facility] [place] [facility] [address] [id number] [place] [address]- 6205 Dec, [facility] [address] [id number] [place] [address]- 0905 Oct, [facility] [place] [facility] [address] [id number] [place] [address]- 7657 Oct, [facility] [place] [facility] [address] [id number] [place] [address]- 6850 Oct, [facility] [place] [facility] [address] [id number] [place] [address]- 4508 Oct, [facility] [place] [facility] [address] [id number] [place] [address]- 1904 Oct, [facility] [place] [facility] [address] [id number] [place] [address]- 2816 Oct, [facility] [address] [id number] [place] [address]- 0963 Oct, [facility] [place] [facility] [address] [id number] [place] [address]- 2724 Jul, [facility] [place] [facility] [address] [id number] [place] [address]- 4505 Jul, [facility] [place] [facility] [address] [id number] [place] [address]- 5940 Jun, [facility] [place] [facility] [address] [id number] [place] [address]- 2800 Jun, [facility] [place] [facility] [address] [id number] [place] [address]- 9459 Jun, [facility] [place] [facility] [address] [id number] [place] [address]- 4531 Jun, [facility] [place] [facility] [address] [id number] [place] [address]- 7806 May, [facility] [place] [facility] [address] [id number] [place] [address]- 7303 May, [facility] [place] [facility] [address] [id number] [place] [address]- 8639 May, [facility] [place] [facility] [address] [id number] [place] [address]- 2512 May, [facility] [place] [facility] [address] [id number] [place] [address]- 3434 Apr, [facility] [place] [facility] [address] [id number] [place] [address]- 4775 Apr, [facility] [place] [facility] [address] [id number] [place] 2777 Apr, [facility] [place] [facility] [address] [id number] [place] [address]- 6371 Apr, [facility] [place] [facility] [address] [id number] [place] 5919 Apr, [facility] [place] [facility] [address] [id number] [place] [address]- 6504 Mar, [facility] [place] [facility] [address] [id number] [place] [address]- 1726 Mar, [facility] [place] [facility] [address] [id number] [place] [address]- 0234 Mar, [facility] [place] [facility] [address] [id number] [place] [address]- 1579 Mar, [facility] [place] [facility] [address] [id number] [place] [address]- 8017 Feb, [facility] [place] [facility] [address] [id number] [place] [address]- 0701 Jan, [facility] [place] [facility] [address] [id number] [place] [address]- 7537 Jan, [facility] [place] [facility] [address] [id number] [place] [address]- 2533 Jan, [facility] [place] [facility] [address] [id number] [place] [address]- 1136 Jan, [facility] [address] [id number] [place] [address]- 1204 Jan, [facility] [place] [facility] [address] [id number] [place] [address]- 3583 Jan, [facility] [place] [facility] [address] [id number] [place] [address]- 5484 Jan, [facility] [place] [facility] [address] [id number] [place] [address]- 0125 November, [facility] [place] [facility] [address] [id number] [place] [address]- 5995 Sep, [facility] [place] [facility] [address] [id number] [place] [address]- 6950 Sep, [facility] [place] [facility] [address] [id number] [place] [address]- 3817 Aug, [facility] [place] [facility] [address] [id number] [place] [address]- 1008 Aug, [facility] [place] [facility] [address] [id number] [place] [address]- 1234 Jul, [facility] [place] [facility] [address] [id number] [place] [address]- 9744 Jul, [facility] [place] [facility] [address] [id number] [address]- 6411 Jul, [facility] [place] [facility] [address] [id number] [place] [address]- 2540 May, [facility] [place] [facility] [address] [id number] [place] [address]- 6705 Apr, [facility] [place] [facility] [address] [id number] [place] [address]- 3591 Apr, [facility] [place] [facility] [address] [id number] [place] [address]- 2546 Apr, [facility] [place] [facility] [address] [id number] [place] [address]- 7630 Apr, [facility] [address] [id number] [place] [address]- 2172 Apr, [facility] [address] [id number] [place] [address]- 7083 Mar, [facility] [address] [id number] [place] [address]- 4828 Feb, [facility] [address] [id number] [place] [address]- 1185 Feb, [facility] [address] [id number] [place] [address]- 0997 Jan, [facility] [address] [id number] [place] [address]- 1894 Jan, [facility] [address] [id number] [place] [address]- 4770 November, [facility] [address] [id number] [place] [address]- 9199 20 Oct, 2011 [facility] [address] [id number] [place] [address]- 7265 19 Oct, 2011 [facility] [address] [id number] [place] [address]- 8457 18 Oct, 2011 [facility] [address] [id number] [place] [address]- 3556 18 Oct, 2011 [facility] [address] [id number] [place] [address]- 1924 16 Oct, 2011 [facility] [place] [facility] [address] [id number] [place] [address]- 5493 13 Oct, 2011 [facility] [address] [id number] [place] [address]- 8785 12 Oct, 2011 [facility] [address] [id number] [place] [address]- 5376 11 Oct, 2011 [facility] [place] [facility] [address] [id number] [place] [address]- 0806 10 Oct, 2011 [facility] [place] [facility] [address] [id number] [place] [address]- 7825 Oct, [facility] [place] [facility] [address] [id number] [place] [address]- 1214 Sep, [facility] [place] [facility] [address] [id number] [place] [address]- 4766 Aug, [facility] [place] [facility] [address] [id number] [place] [address]- 2595 Jun, [facility] [place] [facility] [address] [id number] [place] [address]- 7950 14 Jun, 2011 [facility] [place] [facility] [address] [id number] [place] [address]- 3091 Jun, [facility] [place] [facility] [address] [id number] [place] [address]- 8103 Jun, [facility] [place] [facility] [address] [id number] [place] [address]- 4674 Jun, [facility] [place] [facility] [address] [facility] [id number] [address]- 8798 May, [facility] [place] [facility] [address] [id number] [place] [address]- 1216 Apr, [facility] [place] [facility] [address] [id number] [place] [address]- 4881 Apr, [facility] [place] [facility] [address] [id number] [place] [address]- 4215 15 Oct, 2010 [facility] [place] [facility] [address] [id number] [place] [address]- 3116 09 Jun, 2010 [facility] [place] [facility] [address] [facility] [id number] [place] [address]- 0443 07 Jun, 2010 [facility] [place] [facility] [address] [id number] [place] [address]- 8720 Jun, [facility] [address] 8024 Jun, [facility] [address] [address]- 1561 May, [facility] [id number] [address]- 2195 May, [facility] [id number] [place] [address] 926849- 2565 May, [facility] [address] [place] [address] 15543- 6567 Apr, [facility] [id number] [place] [address] 70439- 5194 Apr, [facility] [id number] [place] [address] 96572- 4927 Apr, [facility] [address] [place] [address] 61085- 8672 Oct, [facility] [address] [place] [address] 61721- 6610 Jul, [facility] [address] [address]- 0181 Apr, [facility] [address] [address]- 1085 Mar, IMMUNIZATIONS No Known Immunizations SOCIAL HISTORY Never Assessed REASON FOR VISIT filling PLAN OF CARE Activity Details Follow Up prn Reason:hygiene VITAL SIGNS Blood pressure systolic 107 mmHg 2017-05-21 Blood pressure diastolic 62 mmHg 2017-05-21 MEDICATIONS Medication Instructions Dosage Frequency Start Date End Date Duration Status Klonopin 0.5 MG Orally Once a day 1 tablet 24h Active Cyanocobalamin 1000 MCG/ML Injection IM every two weeks 1 ml Not -Taking Zolpidem Tartrate ER Not-Taking Cataflam Active Calcium Active Atorvastatin Calcium 40 MG Orally Once a day 1 tablet 24h Active Meloxicam 7.5 MG Orally Once a day 1 tablet 24h Not-Taking Magnesium Citrate Active Ketoconazole Active Furosemide 20 MG Orally Once a day 1 tablet 24h Not-Taking Spironolactone Active Pataday Active Memantine HCl Active Celexa Active Calcium-Vitamin D 600-200 MG-UNIT Active Exelon 9.5 APPLY 1 PATCH AND CHANGE AFTER 24 HOURS 30 Active Namenda 5 MG Orally Twice a day 1 tablet 12h Not-Taking Ambien 5 MG Orally Once a day 1 tablet at bedtime as needed 24h 24 Feb, 2015 Active Oxybutynin Active [place] Active Melatonin Active Hydrocodone-Acetaminophen Active LamoTRIgine ER Active Lipitor 80 MG Orally Once a day 1 tablet 24h Not-Taking Pramipexole Dihydrochloride Active Ambien 10 MG Orally Once a day 1 tablet at bedtime as needed 24h Active Klor-Con 10 Active Exelon 4.6 MG/24HR Transdermal Once a day 1 patch to skin 24h Not- Taking Keppra 750 MG Orally every 12 hrs 2 tablets 12h Active Folic Acid 1 MG Orally Once a day 1 tablet 24h Active Topiramate Active Lasix Active Topamax 200 MG Orally Twice a day 1 tablet 12h Not-Taking Potassium Chloride Sofya ER 10 MEQ Orally once a day 1 tablet with food 24h Not-Taking Vitamin B 12 Not-Taking Bisacodyl EC Active Aspir-81 81 MG Orally Once a day 1 tablet 24h Active Donepezil HCl 5 MG Orally Once a day 1 tablet at bedtime 24h Not- Taking Aricept 10 MG Orally Once a day 1 tablet at bedtime 24h Active Clonazepam Active Diclofenac Sodium CR Active Risperdal Active Cetirizine HCl 10 MG Orally Once a day 1 tablet 24h Not-Taking Trazodone HCl 50 MG Orally Once a day 1 tablet at bedtime as needed 24h Active Omeprazole 20 MG Orally Once a day 1 capsule 24h Active Lamotrigine Active RESULTS No Results PROCEDURES Procedure Date Ordered Result Body Site RESIN COMPOS - 3 SURFACES ANTERIOR May 21, 2017 INSTRUCTIONS MEDICATIONS ADMINISTERED No Known Medications [...]
--- NOTE | 2018-05-15 15:10 | ED Fall/Injury ---
General Stated Complaint: FALL Source: patient, EMS, [facility] records Exam Limitations: clinical condition (Alzheimer's dementia) History of Present Illness Date Seen by Provider: May 15, 2018 Time Seen by Provider: 15:02 Initial Comments Patient presents from [facility] by EMS with a chief complaint of unwitnessed fall found by staff sitting on her backside. She did not describe any pain nausea fevers coughs chills. She is not oriented at baseline. She does have quite a few psych meds and has a history of been sent to [facility]. She does not give any meaningful review of symptoms or history. EMS reports blood sugar 99. Allergies and Home Medications Allergies Coded Allergies: Penicillins (Verified Allergy, Mild, 07/22/13) latex (Verified Allergy, Mild, 07/22/13) Home Medications Aspirin 81 Mg Tablet.dr, 81 MG PO DAILY, (Reported) Atorvastatin Calcium 80 Mg Tablet, 80 MG PO DAILY, (Reported) Calcium Carbonate/Vitamin D3 1 Each Tablet, 1 TAB PO BID, (Reported) Cephalexin 500 Mg Capsule, 500 MG PO TID Prescribed by: RYAN VALENZUELA on 12/07/171 Clonazepam 0.5 Mg Tablet, 0.5 MG PO HS, (Reported) Donepezil HCl 10 Mg Tablet, 10 MG PO HS, (Reported) Fluconazole 200 Mg Tablet, 200 MG PO Q48H, (Reported) TAKE ON ODD DAYS RELATED TO BACTERIAL INFECTION Folic Acid 1 Mg Tablet, 1 MG PO DAILY, (Reported) Furosemide 40 Mg Tablet, 40 MG PO DAILY, (Reported) Hydrocodone Bit/Acetaminophen 1 Each Tablet, 1 TAB PO Q4H PRN for MODERATE PAIN Prescribed by: DADA SANDOVAL on 10/02/16 1120 Ketoconazole 120 Ml Shampoo, TOP DAILY, (Reported) DAILY X 2 WEEKS THEN TWICE WEEKLY Lamotrigine 200 Mg Tablet, 200 MG PO BID, (Reported) Levetiracetam 750 Mg Tablet, 1,500 MG PO BID, (Reported) TAKES 2 (750MG) TABLETS Meclizine HCl 25 Mg Tablet, 25 MG PO Q6H PRN for DIZZINESS, (Reported) Melatonin/Pyridoxine 1 Each Tablet, 3 MG PO HS, (Reported) Meloxicam 15 Mg Tablet, 15 MG PO DAILY, (Reported) Memantine HCl 5 Mg Tablet, 5 MG PO DAILY, (Reported) Oxybutynin Chloride 15 Mg Tab.er.24, 15 MG PO HS, (Reported) Potassium Chloride 20 Meq Tablet.er, 20 MEQ PO DAILY Prescribed by: DADA SANDOVAL on 10/02/16 1120 Prednisolone Acetate 5 Ml Drops.susp, 1 DROP OU Q48H, (Reported) Risperidone 1 Mg Tablet, 1 MG PO DAILY, (Reported) Rivastigmine 9.5 Mg Patch, 9.5 MG TD DAILY, (Reported) Topiramate 200 Mg Tablet, 200 MG PO BID, (Reported) Trazodone HCl 50 Mg Tablet, 50 MG PO HS, (Reported) Triamcinolone Acet 15 Gm Cr, TOP BID, (Reported) Zolpidem Tartrate 5 Mg Tablet, 5 MG PO HS, (Reported) Patient Home Medication List Home Medication List Reviewed: Yes Review of Systems Review of Systems Constitutional: see HPI (the patient's unable to give a meaningful review of systems secondary to Alzheimer's dementia.) Past Wxmhbol-Gtiyfk-Mdjfqc Hx Patient Social History Alcohol Use: Denies Use Recreational Drug Use: No Smoking Status: Former Smoker Type Used: Cigarettes Former Smoker, Quit: Jul 05, 2013 Recent Foreign Travel: No Contact w/Someone Who Travel: No Recent Hopitalizations: No (PSYCH EVALUATIOIN 06/19) Immunizations Up To Date Tetanus Booster (TDap): Unknown Date of Influenza Vaccine: Apr 04, 2016 Seasonal Allergies Seasonal Allergies: No Past Medical History Surgeries: Yes Gallbladder, Lumpectomy Respiratory: Yes (BRONCHITIS) Chronic Bronchitis Currently Using CPAP: No Cardiac: Yes Chronic Edema/Swelling, Coronary Artery Disease, High Cholesterol, Hypertension , Rheumatic Fever Neurological: Yes (ENCEPHALITIS) Concussion, Dementia, Seizure Disorder, Traumatic Brain Injury, Vertigo Reproductive Disorders: No Female Reproductive Disorders: Denies Sexually Transmitted Disease: No HIV/AIDS: No Genitourinary: Yes (CHRONIC RENAL INSUFFICIENCY; BLADDER CONTROL ISSUES?) Gastrointestinal: Yes ("STOMACH DISCOMFORT"--POST-CHOLECYSTECTOMY SYNDROME) Gastroesophageal Reflux, Chronic Constipation, Gall Bladder Disease Musculoskeletal: Yes Arthritis Endocrine: No Loss of Vision: Bilateral Hearing Impairment: Denies Cancer: No Psychosocial: Yes Sleep Difficulties, Bipolar Integumentary: Yes Psoriasis Blood Disorders: No Family Medical History Cancer 03 FATHER (PANCREATIC CANCER) 09 BROTHER ( AT AGE 10) Family history: Cardiovascular disease 03 MOTHER Family history: Diabetes mellitus 03 MOTHER Heart disease 03 MOTHER No Pertinent Family Hx Physical Exam Vital Signs Vital Signs - First Documented 05/15/18 15:42 Temp 97.5 Pulse 62 Resp 20 B/P (MAP) 112/90 (97) Pulse Ox 96 Capillary Refill : Height, Weight, BMI Height: 5'4.00" Weight: 240lbs. 0.0oz. 108.742978ab; 41.2 BMI Method:Stated General Appearance: WD/WN, no apparent distress HEENT: PERRL/EOMI, normal ENT inspection, TMs normal, pharynx normal, other ( negative for hemotympanum, metzger sign, raccoon eyes or traumatic skull.) Neck: non-tender, full range of motion, supple, normal inspection Cardiovascular: normal peripheral pulses, regular rate, rhythm, other (1+ pitting bilateral lower extremity edema) Respiratory: chest non-tender, lungs clear, normal breath sounds, no respiratory distress, no accessory muscle use Gastrointestinal: normal bowel sounds, non tender, soft Brothers Coma Score Best Eye Response: (4) Open Spontaneously Best Verbal Response: (4) Confused Conversation Best Motor Response: (6) Obeys Commands Progress/Results/Core Measures Results/Orders Lab Results Laboratory Tests Test 05/15/18 15:09 05/15/18 15:16 Range/Units White Blood Count 6.4 4.3-11.0 10^3/uL Red Blood Count 4.35 4.35-5.85 10^6/uL Hemoglobin 13.4 11.5-16.0 G/DL Hematocrit 42 35-52 % Mean Corpuscular Volume 96 80-99 FL Mean Corpuscular Hemoglobin 31 25-34 PG Mean Corpuscular Hemoglobin Concent 32 32-36 G/DL Red Cell Distribution Width 14.6 H 10.0-14.5 % Platelet Count 155 130-400 10^3/uL Mean Platelet Volume 11.6 H 7.4-10.4 FL Neutrophils (%) (Auto) 61 42-75 % Lymphocytes (%) (Auto) 21 12-44 % Monocytes (%) (Auto) 16 H 0-12 % Eosinophils (%) (Auto) 2 0-10 % Basophils (%) (Auto) 1 0-10 % Neutrophils # (Auto) 3.9 1.8-7.8 X 10^3 Lymphocytes # (Auto) 1.3 1.0-4.0 X 10^3 Monocytes # (Auto) 1.0 0.0-1.0 X 10^3 Eosinophils # (Auto) 0.1 0.0-0.3 10^3/uL Basophils # (Auto) 0.0 0.0-0.1 10^3/uL Sodium Level 137 135-145 MMOL/L Potassium Level 3.6 3.6-5.0 MMOL/L Chloride Level 101 98-107 MMOL/L Carbon Dioxide Level 21 21-32 MMOL/L Anion Gap 15 H 5-14 MMOL/L Blood Urea Nitrogen 14 7-18 MG/DL Creatinine 1.36 H 0.60-1.30 MG/DL Estimat Glomerular Filtration Rate 39 BUN/Creatinine Ratio 10 Glucose Level 102 70-105 MG/DL Calcium Level 10.3 H 8.5-10.1 MG/DL Corrected Calcium 10.3 H 8.5-10.1 MG/DL Total Bilirubin 0.6 0.1-1.0 MG/DL Aspartate Amino Transf (AST/SGOT) 39 H 5-34 U/L Alanine Aminotransferase (ALT/SGPT) 21 0-55 U/L Alkaline Phosphatase 82 40-136 U/L B-Type Natriuretic Peptide 34.1 <100.0 PG/ML Total Protein 7.4 6.4-8.2 GM/DL Albumin 4.0 3.2-4.5 GM/DL Valproic Acid (Depakene) Level 79.6 50.0-100.0 UG/ML Urine Color YELLOW Urine Clarity CLEAR Urine pH 5 5-9 Urine Specific [place] 1.020 1.016-1.022 Urine Protein 1+ H NEGATIVE Urine Glucose (UA) NEGATIVE NEGATIVE Urine Ketones NEGATIVE NEGATIVE Urine Nitrite NEGATIVE NEGATIVE Urine Bilirubin NEGATIVE NEGATIVE Urine Urobilinogen NORMAL NORMAL MG/DL Urine Leukocyte Esterase 2+ H NEGATIVE Urine RBC (Auto) 1+ H NEGATIVE Urine RBC NONE /HPF Urine WBC >100 H /HPF Urine Crystals NONE /LPF Urine Bacteria LARGE H /HPF Urine Casts PRESENT /LPF Urine Hyaline Casts 2-5 H /LPF Urine Mucus NEGATIVE /LPF Urine Culture Indicated YES My Orders Orders - MACY GLYNN Ct Head/Cervical Spine Wo (05/15/18 15:07) BNP (05/15/18 15:07) Cbc With Automated Diff (05/15/18 15:07) Comprehensive Metabolic Panel (05/15/18 15:07) Ua Culture If Indicated (05/15/18 15:07) Chest 1 View, Ap/Pa Only (05/15/18 15:07) Saline Lock/Iv-Start (05/15/18 15:07) Straight Cath For Spec.-Adult (05/15/18 15:07) Valproic Acid (05/15/18 15:10) Urine Culture (05/15/18 15:16) Ceftriaxone For Iv Use (Rocephin For I (05/15/18 16:15) Vital Signs/I&O 05/15/18 15:42 Temp 97.5 Pulse 62 Resp 20 B/P (MAP) 112/90 (97) Pulse Ox 96 Progress Progress Note : Time: 16:57 Progress Note UTI Rocephin Diagnostic Imaging Diagonstic Imaging: CT (c/o) Plain Films/CT/US/NM/MRI: c-spine, head Comments [facility] [place] [place] [place] NAME: [facility] REC#: [id number] PT STATUS: REG ER : 1950 PHYSICIAN: MACY GLYNN MD ADMIT DATE: 05/15/18/ER Draft Date of Exam:05/15/18 CT HEAD/CERVICAL SPINE WO PROCEDURE: CT head and CT cervical spine without contrast. TECHNIQUE: Multiple contiguous axial images were obtained through the brain and cervical spine without the use of intravenous contrast. Sagittal and coronal reformations through the cervical spine were then performed. INDICATION: Head and neck pain after fall. COMPARISON: Head and C-spine of 06/02/2017. FINDINGS: CT head: No hyperdense hemorrhage or space-occupying mass. No hydrocephalus or midline shift. Basilar cisterns are widely patent. No evidence of acute/subacute territorial infarct. No acute skull fracture. Paranasal sinuses and mastoid air cells are clear. CT cervical spine: There is no acute temporal bone fracture on either side. No middle ear fluid. No acute fracture or traumatic malalignment in the cervical spine. Straightening of the cervical spine is unchanged. Multilevel mild degenerative disc disease is also stable. No cervical lymphadenopathy. Stable bilateral thyroid nodules. Lung apices are clear. IMPRESSION: 1. No acute intracranial hemorrhage or skull fracture. 2. No fracture or traumatic malalignment in the cervical spine. Dictated on workstation # [id number] Dict: 05/15/18 1549 Trans: 05/15/18 1553 [facility] [id number] Interpreted by: RENETTA TRIANA MD Electronically signed by: Reviewed: Reviewed by Me Diagonstic Imaging: Xray Plain Films/CT/US/NM/MRI: chest Comments NAME: [facility] REC#: [id number] PHYSICIAN: MACY GLYNN MD CC: RENETTA TRIANA MD; MACY GLYNN Page 1 of 1 RADIOLOGY REPORT [facility] [place] [place] [place] CC: RENETTA TRIANA MD; MACY GLYNN Page 1 of 1 RADIOLOGY REPORT NAME: [facility] REC#: [id number] PT STATUS: REG ER : 1950 PHYSICIAN: MACY GLYNN MD ADMIT DATE: 05/15/18/ER Signed Date of Exam: 05/15/18 CHEST 1 VIEW, AP/PA ONLY CHEST 1 VIEW, AP/PA ONLY Indication: Fall. Trauma. Comparison: None available. Findings: No focal airspace disease in the visualized lungs. Please note that the posterior lower lobes are poorly evaluated by portable radiography. No pleural effusion or pneumothorax. Normal cardiomediastinal silhouette. No displaced fracture the visualized ribs or clavicles. Impression: No acute cardiopulmonary process by portable radiography. Dictated by: Dictated on workstation # [id number] Dict: 05/15/18 1539 Trans: 05/15/18 153 Interpreted by: RENETTA TRIANA MD Electronically signed by: RENETTA TRIANA MD 05/15/181538 Reviewed: Reviewed by Me Departure Impression Primary Impression: UTI (urinary tract infection) Qualified Codes: N30.00 - Acute cystitis without hematuria Additional Impression: Fall Qualified Codes: W19.XXXA - Unspecified fall, initial encounter Disposition: 01 HOME, SELF-CARE Condition: Stable Departure-Patient Inst. Decision time for Depature: 16:57 Referrals: SCHOELING,JOVON D MD (PCP/Family) Primary Care Physician Patient Instructions: Urinary Tract Infection, Adult (DC) Add. Discharge Instructions: Encourage lots of fluids. 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 Scripts Cephalexin (Cephalexin) 500 Mg Tablet 500 MG PO BID for 6 Days, #12 TAB 0 Refills Prov: MACY GLYNN 05/15/18 MACY GLYNN May 15, 2018 15:10
[2018-05-15 15:24] LABS: BASOPHILS % (AUTO) 1 % (0-10); EOSINOPHILS # (AUTO) 0.1 10^3/uL (0.0-0.3); EOSINOPHILS % (AUTO) 2 % (0-10); HEMATOCRIT 42 % (35-52); HEMOGLOBIN 13.4 G/DL (11.5-16.0); LYMPHOCYTES # (AUTO) 1.3 X 10^3 (1.0-4.0); LYMPHOCYTES % (AUTO) 21 % (12-44); MEAN CORPUSCULAR HEMOGLOBIN 31 PG (25-34); MEAN CORPUSCULAR HGB CONC 32 G/DL (32-36); MEAN CORPUSCULAR VOLUME 96 FL (80-99); MEAN PLATELET VOLUME 11.6 FL (7.4-10.4); MONOCYTES % (AUTO) 16 % (0-12); NEUTROPHILS # (AUTO) 3.9 X 10^3 (1.8-7.8); NEUTROPHILS % (AUTO) 61 % (42-75); PLATELET COUNT 155 10^3/uL (130-400); RED BLOOD COUNT 4.35 10^6/uL (4.35-5.85); RED CELL DISTRIBUTION WIDTH 14.6 % (10.0-14.5); WHITE BLOOD COUNT 6.4 10^3/uL (4.3-11.0)
[2018-05-15 15:25] LABS: BILIRUBIN,URINE NEGATIVE (NEGATIVE); CLARITY,URINE CLEAR; COLOR,URINE YELLOW; GLUCOSE, URINE (UA) NEGATIVE (NEGATIVE); KETONES,URINE NEGATIVE (NEGATIVE); LEUKOCYTE ESTERASE ,URINE 2+ (NEGATIVE); NITRITE,URINE NEGATIVE (NEGATIVE); PH,URINE 5 (5-9); PROTEIN,URINE 1+ (NEGATIVE); UROBILINOGEN,URINE NORMAL (NORMAL)
--- NOTE | 2018-05-15 15:42 | Diagnostic Imaging Report ---
CHEST 1 VIEW, AP/PA ONLY Indication: Fall. Trauma. Comparison: None available. Findings: No focal airspace disease in the visualized lungs. Please note that the posterior lower lobes are poorly evaluated by portable radiography. No pleural effusion or pneumothorax. Normal cardiomediastinal silhouette. No displaced fracture the visualized ribs or clavicles. Impression: No acute cardiopulmonary process by portable radiography. Dictated by: Dictated on workstation # [id number]
[2018-05-15 15:45] LABS: BILIRUBIN,TOTAL 0.6 MG/DL (0.1-1.0); CALCIUM 10.3 MG/DL (8.5-10.1); CREATININE SERUM 1.36 MG/DL (0.60-1.30); POTASSIUM 3.6 MMOL/L (3.6-5.0); TOTAL PROTEIN 7.4 GM/DL (6.4-8.2)
[2018-05-15 15:46] LABS: WBC,URINE >100 /HPF
[2018-05-15 15:49] LABS: BACTERIA,URINE LARGE /HPF
[2018-05-15 15:51] LABS: VALPROIC ACID 79.6 UG/ML (50.0-100.0)
--- NOTE | 2018-05-15 15:54 | Diagnostic Imaging Report ---
PROCEDURE: CT head and CT cervical spine without contrast. TECHNIQUE: Multiple contiguous axial images were obtained through the brain and cervical spine without the use of intravenous contrast. Sagittal and coronal reformations through the cervical spine were then performed. INDICATION: Head and neck pain after fall. COMPARISON: Head and C-spine of 06/02/2017. FINDINGS: CT head: No hyperdense hemorrhage or space-occupying mass. No hydrocephalus or midline shift. Basilar cisterns are widely patent. No evidence of acute/subacute territorial infarct. No acute skull fracture. Paranasal sinuses and mastoid air cells are clear. CT cervical spine: There is no acute temporal bone fracture on either side. No middle ear fluid. No acute fracture or traumatic malalignment in the cervical spine. Straightening of the cervical spine is unchanged. Multilevel mild degenerative disc disease is also stable. No cervical lymphadenopathy. Stable bilateral thyroid nodules. Lung apices are clear. IMPRESSION: 1. No acute intracranial hemorrhage or skull fracture. 2. No fracture or traumatic malalignment in the cervical spine. Dictated by: Dictated on workstation # [id number]
[2018-05-15] MEDS ORDERED: cefTRIAXone FOR IV USE 1,000 MG in NS (IVPB) 50 ML IV ONE (16:15)
[2018-05-15] MEDS ORDERED: CEPH500T PO (17:00)
--- NOTE | 2018-05-15 17:33 | Diagnostic Imaging Report ---
INDICATION: Fell, poor historian, right ankle swelling. FINDINGS: Three views of the right ankle demonstrate soft tissue swelling. No fracture or dislocation is present. Minimal degenerative changes are present. IMPRESSION: There is soft tissue swelling of the right ankle. Dictated by: Dictated on workstation # [id number]
[2018-05-15 17:52] VITALS: BP 110/73
== END 2018-05-15 17:52 | disposition home or self-care (01) ==
LOC: EDUNIT# 14:56 → ER 14:57
DX: N39.0 Urinary tract infection, site not specified (principal); R51 Headache; M54.2 Cervicalgia; G30.9 Alzheimer's disease, unspecified; F03.90 Unspecified dementia, unspecified severity, without behavioral disturbance, psychotic disturbance, mood disturbance, and anxiety; I25.10 Atherosclerotic heart disease of native coronary artery without angina pectoris; E78.00 Pure hypercholesterolemia, unspecified; I12.9 Hypertensive chronic kidney disease with stage 1 through stage 4 chronic kidney disease, or unspecified chronic kidney disease; N18.9 Chronic kidney disease, unspecified; G40.909 Epilepsy, unspecified, not intractable, without status epilepticus; K21.9 Gastro-esophageal reflux disease without esophagitis; F31.9 Bipolar disorder, unspecified; R40.2142 Coma scale, eyes open, spontaneous, at arrival to emergency department; R40.2242 Coma scale, best verbal response, confused conversation, at arrival to emergency department; R40.2362 Coma scale, best motor response, obeys commands, at arrival to emergency department; Z87.820 Personal history of traumatic brain injury; Z90.49 Acquired absence of other specified parts of digestive tract; Z79.82 Long term (current) use of aspirin; Z80.0 Family history of malignant neoplasm of digestive organs; Z82.49 Family history of ischemic heart disease and other diseases of the circulatory system; Z88.0 Allergy status to penicillin; Z91.040 Latex allergy status; Z79.52 Long term (current) use of systemic steroids; Z87.891 Personal history of nicotine dependence; Z87.09 Personal history of other diseases of the respiratory system; W19.XXXA Unspecified fall, initial encounter
CPT/HCPCS: 36415; 51701; 70450; 71045; 72125; 73610; 80053; 80164; 81000; 83880; 85025; 87077; 87088; 87186

== ENCOUNTER → 2018-08-05 | Outpatient (CLI) | payer MEDICARE, BC, MEDICAID ==
[~2018-08-05] MED LIST changes: +CEPH500T PO; +RECEIVED CONTRAST (Hold Metformin) IV SCH
[2018-08-05] MEDS: IOHEXOL 350 MG/ML 100 ML (OMNIPAQUE 350) VIAL IV ONE (12:01)
[2018-08-05] MEDS: NS 100 ML (IVPB) BAG IV ONE (12:01)
--- NOTE | 2018-08-05 13:46 | Diagnostic Imaging Report ---
PROCEDURE: CT abdomen and pelvis with contrast. TECHNIQUE: Multiple contiguous axial images were obtained through the abdomen and pelvis after administration of intravenous contrast. DATE: August 05, 2018. COMPARISON: CT abdomen pelvis without contrast September 30, 2016. INDICATION: 68-year-old female, weight loss. Anemia. FINDINGS: There is a very small right posterior diaphragmatic hernia containing fat. The visualized portions of the lung bases are clear. The heart is not enlarged. There is no identified pericardial effusion. The liver is unremarkable in size and contour. There is no identified liver lesion. The main, right, and left portal veins are patent. The patient is status post cholecystectomy. There is no identified intrahepatic or extrahepatic bile duct dilation. The main pancreatic duct is not abnormally dilated. Unremarkable appearance of the pancreatic parenchyma. The spleen is normal in size. The adrenal glands are unremarkable. Unremarkable appearance of the renal parenchyma. The urinary collecting systems are not distended. There is no identified renal or ureteral stone. The urinary bladder is under distended and grossly unremarkable in appearance. The appendix is well seen on axial image 47 and adjacent sequential images. There is no evidence of acute appendicitis. The intestinal tract is not distended. There is fatty wall thickening of the right colon likely relating to changes of chronic colitis. There is no adjacent inflammatory stranding. There is no identified nonfatty wall thickening of a bowel segment. There is no free intraperitoneal air. There is no drainable fluid collection. There is no sizable volume free pelvic fluid. There are atherosclerotic calcifications noted. There is no identified abnormally enlarged lymph node in the abdomen or pelvis which meets CT size criteria for adenopathy. There are degenerative changes of the spine. There does appear to be likely high-grade spinal stenosis at L3-L4 and L4-L5. There is a mild lumbar levocurvature. There is no identified acute bony abnormality. IMPRESSION: CT ABDOMEN AND PELVIS. 1. No identified acute abnormality in the abdomen or pelvis. 2. Fatty wall thickening of the right colon likely relating to changes of chronic colitis. No evidence of active colitis or enteritis. 3. A small fat-containing right posterior diaphragmatic hernia 4. Multilevel degenerative changes of the spine with high-grade spinal stenosis at L3-L4 and L4-L5. Dictated by: Dictated on workstation # [id number]
== END ==
LOC: RAD 11:36
PROVIDERS: ATTEND Nurse Practitioner Family
DX: K44.9 Diaphragmatic hernia without obstruction or gangrene (principal); D64.9 Anemia, unspecified; M47.816 Spondylosis without myelopathy or radiculopathy, lumbar region; M48.061 Spinal stenosis, lumbar region without neurogenic claudication; K63.9 Disease of intestine, unspecified; Z90.49 Acquired absence of other specified parts of digestive tract
CPT/HCPCS: 74177

== ENCOUNTER → 2018-08-25 | Outpatient (CLI) | payer MEDICARE, BC, MEDICAID ==
[~2018-08-25] MED LIST changes: -RECEIVED CONTRAST (Hold Metformin) IV SCH
--- NOTE | 2018-08-25 19:24 | Diagnostic Imaging Report ---
INDICATION: Routine screening. Comparison is made with prior mammograms from 08/04/2017 and 02/01/2017. 2-D and 3-D bilateral screening mammography was performed with computer-aided Detection (CAD) system. FINDINGS: Scattered fibroglandular densities are identified bilaterally. Nodular densities in the left breast appear slightly more prominent when compared with prior mammograms. Densities are noted superiorly as well as inferiorly and at mid depth in the left breast seen on the MLO view. Both of these appear to be laterally located on the CC view. No other suspicious densities are seen. No suspicious microcalcifications are identified. Axillae are unremarkable. IMPRESSION: Left breast densities, appear more prominent when compared with prior mammograms. Additional views are recommended. If these persist, ultrasound will be necessary as well. ACR BI-RADS Category 0: Incomplete. (Needs additional imaging evaluation). Result letter will be mailed to the patient. Note: At least 10% of breast cancer is not imaged by mammography. Dictated by: Dictated on workstation # [id number]
== END ==
LOC: RAD 09:47
DX: Z12.31 Encounter for screening mammogram for malignant neoplasm of breast (principal); R92.8 Other abnormal and inconclusive findings on diagnostic imaging of breast
CPT/HCPCS: 77067

== ENCOUNTER → 2018-09-01 | Outpatient (CLI) | payer MEDICARE, BC, MEDICAID ==
--- NOTE | 2018-09-01 16:54 | Diagnostic Imaging Report ---
EXAM: Unilateral diagnostic ultrasound of the left breast, limited. INDICATION: Abnormal mammogram. FINDINGS: The screening mammogram performed on 08/25/2018 noted 2 densities in the left breast which had developed in the interval since the prior study of 08/04/2017. These findings did not seem to be as conspicuous on the diagnostic mammogram performed earlier today but still seem to persist. On this exam, there are 2 small hypoechoic lesions identified. One is located in the 2 o'clock position of the breast roughly 2 cm from the nipple and measures 0.6 x 0.5 x 0.6 cm. The other has a similar appearance and is located in the 4 o'clock position roughly 2 cm from the nipple. This area measures 0.6 x 0.4 x 0.7 cm. Each of these findings shows some internal vascularity. These lesions do not have a particularly aggressive appearance. It would be unlikely that there are 2 neoplastic foci which have developed in the interval since the prior exam. If a tissue diagnosis is desired, these 2 lesions could be biopsied using ultrasound guidance. In loop of a biopsy, MRI would recommended for more sensitive evaluation of these findings. If the MRI exam is not performed, then a short-term (three-month followup mammogram and ultrasound exam could also be obtained. No other abnormality is identified. IMPRESSION: 1. There are 2 indeterminate lesions within the left breast. These would correspond to the findings of the mammogram. Considerations and recommendations as above. 2. These results were discussed with Ramona at Dr. Addy Farr's office. ACR BI-RADS Category 0: Incomplete. (Needs additional imaging evaluation). Result letter will be mailed to the patient. Note: At least 10% of breast cancer is not imaged by mammography. Dictated on workstation # [id number]
--- NOTE | 2018-09-01 21:25 | Diagnostic Imaging Report ---
Unilateral diagnostic left mammogram. The current study was also evaluated with a Computer Aided Detection (CAD) system. INDICATION: Breast lump. FINDINGS: The screening mammogram performed on 08/25/2018 noted two nodular densities in the lateral aspect of the left breast. These have developed in the interval since the prior study of 08/04/2017. On the compression views of these areas, both these findings do seem much less conspicuous; however, they do seem to persist to some degree. I would recommend that ultrasound be performed for further study. IMPRESSION: Ultrasound will be recommended for further evaluation of the two new densities in the lateral aspect of the left breast. ACR BI-RADS Category 0: Incomplete. (Needs additional imaging evaluation). Result letter will be mailed to the patient. Note: At least 10% of breast cancer is not imaged by mammography. Dictated by: Dictated on workstation # [id number]
== END ==
LOC: RAD 08:39
PROVIDERS: ATTEND Nurse Practitioner Family
DX: N63.20 Unspecified lump in the left breast, unspecified quadrant (principal); N64.89 Other specified disorders of breast
CPT/HCPCS: 76642

== ENCOUNTER 2018-09-06 13:38 | Outpatient (RCR) | payer MEDICARE, BC, MEDICAID ==
[2018-08-19 08:55] LABS: ABSOLUTE RETIC # 49 10e9/L (24-90); BASOPHILS % (AUTO) 0 % (0-10); EOSINOPHILS # (AUTO) 0.1 10^3/uL (0.0-0.3); EOSINOPHILS % (AUTO) 2 % (0-10); HEMATOCRIT 40 % (35-52); HEMOGLOBIN 13.2 G/DL (11.5-16.0); LYMPHOCYTES # (AUTO) 1.3 X 10^3 (1.0-4.0); LYMPHOCYTES % (AUTO) 23 % (12-44); MEAN CORPUSCULAR HEMOGLOBIN 33 PG (25-34); MEAN CORPUSCULAR HGB CONC 33 G/DL (32-36); MEAN CORPUSCULAR VOLUME 102 FL (80-99); MEAN PLATELET VOLUME 11.5 FL (7.4-10.4); MONOCYTES % (AUTO) 17 % (0-12); NEUTROPHILS # (AUTO) 3.3 X 10^3 (1.8-7.8); NEUTROPHILS % (AUTO) 58 % (42-75); PLATELET COUNT 143 10^3/uL (130-400); RED CELL DISTRIBUTION WIDTH 14.2 % (10.0-14.5); RETICULOCYTE % 1.22 % (0.50-2.40); WHITE BLOOD COUNT 5.7 10^3/uL (4.3-11.0)
[2018-08-19 09:17] LABS: ALBUMIN 3.9 GM/DL (3.2-4.5); BILIRUBIN,TOTAL 0.6 MG/DL (0.1-1.0); CALCIUM 9.4 MG/DL (8.5-10.1); CREATININE SERUM 1.59 MG/DL (0.60-1.30); POTASSIUM 3.7 MMOL/L (3.6-5.0); TOTAL PROTEIN 7.3 GM/DL (6.4-8.2)
[~2018-09-06 13:38] MED LIST changes: -LAMO25TA PO; +LAMO25TA8 PO
[2018-09-06 13:58] LABS: BASOPHILS % (AUTO) 0 % (0-10); EOSINOPHILS # (AUTO) 0.1 10^3/uL (0.0-0.3); EOSINOPHILS % (AUTO) 2 % (0-10); HEMATOCRIT 40 % (35-52); LYMPHOCYTES # (AUTO) 1.7 X 10^3 (1.0-4.0); LYMPHOCYTES % (AUTO) 29 % (12-44); MEAN CORPUSCULAR HEMOGLOBIN 33 PG (25-34); MEAN CORPUSCULAR HGB CONC 32 G/DL (32-36); MEAN CORPUSCULAR VOLUME 103 FL (80-99); MEAN PLATELET VOLUME 11.5 FL (7.4-10.4); MONOCYTES % (AUTO) 16 % (0-12); NEUTROPHILS # (AUTO) 3.1 X 10^3 (1.8-7.8); NEUTROPHILS % (AUTO) 53 % (42-75); PLATELET COUNT 163 10^3/uL (130-400); RED CELL DISTRIBUTION WIDTH 14.1 % (10.0-14.5); WHITE BLOOD COUNT 5.9 10^3/uL (4.3-11.0)
[2018-09-06 14:16] LABS: ALBUMIN 3.9 GM/DL (3.2-4.5); BILIRUBIN,TOTAL 0.6 MG/DL (0.1-1.0); CALCIUM 9.6 MG/DL (8.5-10.1); CREATININE SERUM 1.77 MG/DL (0.60-1.30); POTASSIUM 4.2 MMOL/L (3.6-5.0); TOTAL PROTEIN 6.8 GM/DL (6.4-8.2)
[2018-11-07] MEDS ORDERED: LEVE10006 PO (16:11)
[2018-11-07] MEDS ORDERED: DULO60CA6 PO (16:11)
[2018-11-07] MEDS ORDERED: DIVA250T2 PO (16:11)
[2018-11-07] MEDS ORDERED: MELA3TAB PO (16:11)
[2018-11-07] MEDS ORDERED: QUET50TA PO (16:11)
[2018-11-07] MEDS ORDERED: PRD10T PO (16:11)
[2018-11-07] MEDS ORDERED: SPIR100T4 PO (16:11)
[2018-11-07] MEDS ORDERED: POTA10TA36 PO (16:11)
[2018-11-07] MEDS ORDERED: LACT10SO5 PO (16:11)
[2018-11-07] MEDS ORDERED: DIVA500T PO (16:11)
[2018-11-07] MEDS ORDERED: PANT40TA3 PO (16:11)
[2018-11-07] MEDS ORDERED: POLY17PO6 PO (16:11)
[2018-11-07] MEDS ORDERED: TPR25T PO (16:11)
== END 2018-11-17 | disposition home or self-care (01) ==
LOC: ONC 13:38
PROVIDERS: ATTEND Internal Medicine Hematology & Oncology
DX: D61.818 Other pancytopenia (principal); R63.4 Abnormal weight loss; N17.9 Acute kidney failure, unspecified; I12.9 Hypertensive chronic kidney disease with stage 1 through stage 4 chronic kidney disease, or unspecified chronic kidney disease; N18.9 Chronic kidney disease, unspecified; I25.10 Atherosclerotic heart disease of native coronary artery without angina pectoris; F32.9 Major depressive disorder, single episode, unspecified; K21.9 Gastro-esophageal reflux disease without esophagitis; I73.9 Peripheral vascular disease, unspecified; G40.909 Epilepsy, unspecified, not intractable, without status epilepticus; F17.210 Nicotine dependence, cigarettes, uncomplicated; G30.9 Alzheimer's disease, unspecified; F02.80 Dementia in other diseases classified elsewhere, unspecified severity, without behavioral disturbance, psychotic disturbance, mood disturbance, and anxiety; Z87.820 Personal history of traumatic brain injury; Z79.82 Long term (current) use of aspirin; Z79.899 Other long term (current) drug therapy
CPT/HCPCS: 36415; 80053; 82728; 82784; 83540; 83615; 83883; 84155; 84165; 84443; 85007; 85025; 85045; 99213; 99214

== ENCOUNTER → 2018-09-07 | Outpatient (CLI) | payer MEDICARE, BC, MEDICAID ==
--- NOTE | 2018-09-13 08:08 | Diagnostic Imaging Report ---
Reason for examination: Abnormal mammogram and ultrasound. Comparison studies: Comparison studies are dated 08/25 and 09/01/2018. TECHNIQUE: Utilizing 1.5 Vera GE magnet, patient was placed in a prone position with 8-channel dual breast coil utilized. Axial STIR precontrasted image and sagittal T2-weighted images were obtained. Axial T1-weighted images were also obtained. Contrast could not be administered due to low GFR. This lowers the sensitivity of MRI. RIGHT BREAST: The right breast is mostly fat. No suspicious mass or cyst is identified in the right breast. LEFT BREAST: The left breast is mostly fat. The 2 focal asymmetries identified in the anterior depth of the upper-outer and lower-outer quadrants of the left breast on prior mammography and ultrasound are identified on MRI. These have mixed signal on T2-weighted images with high T2 signal on T2 fat-saturated images. There are some areas of apparent fat saturation within these focal asymmetries. Reviewing the prior mammogram and ultrasound images, this could represent fat necrosis. IMPRESSION: 1. Limited breast MRI secondary to the inability to administer contrast due to low GFR. There are 2 focal asymmetries in the left breast, one in the upper outer and and one lower-outer quadrant, anterior depth. The focal asymmetry in the upper outer quadrant measures 0.9 cm and the asymmetry in the lower outer quadrant measures approximately 0.8 cm. Signal characteristics and comparison to prior imaging studies are most suggestive of fat necrosis at this point. Please correlate with any clinical history of trauma or injury. Six-month followup diagnostic left mammogram and ultrasound are recommended to assess for stability or resolution. ACR BI-RADS Category 3: Probably benign findings. Recommendations: Diagnostic left mammogram and ultrasound in 6 months. Dictated by: Dictated on workstation # [id number]
== END ==
LOC: RAD 08:34
PROVIDERS: ATTEND Nurse Practitioner Family
DX: N63.20 Unspecified lump in the left breast, unspecified quadrant (principal)
CPT/HCPCS: 77047

== ENCOUNTER 2018-11-07 05:41 | Outpatient (CLI) | payer MEDICARE, BC, MEDICAID ==
[~2018-11-07] VITALS: Ht 157.5 cm; Wt 71.7 kg
[2018-11-07] MEDS ORDERED: SPIR100T4 PO (16:11)
[2018-11-07] MEDS ORDERED: MELA3TAB PO (16:11)
[2018-11-07] MEDS ORDERED: POTA10TA36 PO (16:11)
[2018-11-07] MEDS ORDERED: TPR25T PO (16:11)
[2018-11-07] MEDS ORDERED: POLY17PO6 PO (16:11)
[2018-11-07] MEDS ORDERED: DIVA500T PO (16:11)
[2018-11-07] MEDS ORDERED: QUET50TA PO (16:11)
[2018-11-07] MEDS ORDERED: PRD10T PO (16:11)
[2018-11-07] MEDS ORDERED: LACT10SO5 PO (16:11)
[2018-11-07] MEDS ORDERED: PANT40TA3 PO (16:11)
[2018-11-07] MEDS ORDERED: DULO60CA6 PO (16:11)
[2018-11-07] MEDS ORDERED: DIVA250T2 PO (16:11)
[2018-11-07] MEDS ORDERED: LEVE10006 PO (16:11)
== END 2018-11-08 11:26 | disposition home or self-care (01) ==
LOC: PREOP 05:41
PROVIDERS: ATTEND Surgery
DX: Z01.818 Encounter for other preprocedural examination (principal)

== ENCOUNTER 2018-11-09 09:17 | Day surgery (SDC) | payer MEDICARE, BC, MEDICAID ==
[~2018-11-09] VITALS: Ht 157.5 cm; Wt 71.7 kg
[~2018-11-09 09:17] MED LIST changes: +DIVA250T2 PO; +DIVA500T PO; +DULO60CA6 PO; +LACT10SO5 PO; +LEVE10006 PO; +MELA3TAB PO; +PANT40TA3 PO; +POLY17PO6 PO; +POTA10TA36 PO; +PRD10T PO; +QUET50TA PO; +SPIR100T4 PO; +TPR25T PO
[2018-11-09] MEDS ORDERED: LACTATED RINGERS 1,000 ML IV ONE (09:22)
[2018-11-09] MEDS ORDERED: NS IV 500 ML 500 ML IV PRN (09:25)
[2018-11-09] MEDS ORDERED: fentaNYL INJECTION 100 MCG/2 ML AMP IVP ONE (09:30)
[2018-11-09] MEDS ORDERED: LIDOCAINE JELLY 2% 6 ML SYRINGE MM PRN (09:30)
[2018-11-09] MEDS ORDERED: HURRICAINE EXT TUBE (BENZOCAINE) XX PRN (09:30)
[2018-11-09] MEDS ORDERED: LACTATED RINGERS 1,000 ML IV SCH (09:30)
[2018-11-09] MEDS ORDERED: MIDAZOLAM 2 MG/2 ML (VERSED) VIAL IVP ONE (09:30)
[2018-11-09 09:58] VITALS: BP 123/72
--- NOTE | 2018-11-09 10:17 | Conscious Sedation/ASA ---
Conscious Sedation Pre-Proced Time 10:00 ASA Score 2 For ASA 3 and 4: Consider anesthesia and medical clearance. Also, for patients with a history of failed moderate sedation consider anesthesia. Airway Lungs Heart ASA score ASA 1: a normal healthy patient ASA 2: a patient with a mild systemic disease (mid diabetes, controlled hypertension, obesity ASA 3: a patient with a severe systemic disease that limits activity (angina , COPD, prior Myocardial infarction) ASA 4: a patient with an incapacitating disease that is a constant threat to life (CHF, renal failure) ASA 5: a moribund patient not expected to survive 24 hrs. (ruptured aneurysm) ASA 6: a declared brain- patient whose organs are being harvested. For emergent operations, add the letter E after the classification Mallampati Classification Grade 2 Sedation Plan Analgesia, Amnesia, Plan communicated to team members, Discussed options with patient/fam, Discussed risks with patient/fam The patient is an appropriate candidate to undergo the planned procedure, sedation, and anesthesia. The patient immediately re-assessed prior to indication. GIAN BROWN MD November 09, 2018 10:17
--- NOTE | 2018-11-09 10:18 | Progress Note-Pre Operative ---
Pre-Operative Progress Note H&P Reviewed The H&P was reviewed, patient examined and no changes noted. Date Seen by Provider: November 09, 2018 Time Seen by Provider: 10:00 Date H&P Reviewed: November 09, 2018 Time H&P Reviewed: 10:00 Pre-Operative Diagnosis: wt loss, abd pain GIAN BROWN MD November 09, 2018 10:18
--- NOTE | 2018-11-09 10:19 | Discharge Inst-Surgical ---
D/C Lap Instructions-STEPHANIE Follow Up Activity as tolerated High Fiber Diet 25g or more per day Avoid Alcohol, Caffeine, Spicy [place] and Acid foods. Drink 64 fluid oz or more of fluids per day. Symptoms to Report: Fever over 101 degree F, Nausea/Vomiting If any problems/questions: Contact your physician or go to Emergency Room GIAN BROWN MD November 09, 2018 10:19
[2018-11-09] MEDS ORDERED: ACETAMINOPHEN 325 MG TABLET PO PRN (10:30)
[2018-11-09] MEDS ORDERED: morphine INJ 10 MG/ML 1ML (SYR OR VIAL) IV PRN (10:30)
[2018-11-09] MEDS ORDERED: HYDROcodone/APAP 5 MG/325 MG (LORTAB) TAB PO PRN (10:30)
[2018-11-09] MEDS ORDERED: ONDANSETRON 4 MG/2 ML (SDV) Z0FRAN IV PRN (10:30)
[2018-11-09] MEDS ORDERED: fentaNYL INJECTION 100 MCG/2 ML AMP ONE (10:34)
[2018-11-09] MEDS ORDERED: HURRICAINE EXT TUBE (BENZOCAINE) ONE (10:34)
[2018-11-09] MEDS ORDERED: MIDAZOLAM 2 MG/2 ML (VERSED) VIAL ONE ×4 (10:34)
[2018-11-09] MEDS ORDERED: LIDOCAINE JELLY 2% 6 ML SYRINGE ONE (10:34)
--- OUTSIDE RECORDS SUMMARY | 2018-11-09 11:05 | XMS REPORT | Clinical Summary ---
Author Author [facility] Organization [facility] Address Unknown Phone Unavailable Care Team Providers Care Survey And Mapping Technician Name Role Phone Addy Farr MD PCP [...] (1 of 2 - PCV13) Influenza Vaccine (Season 05/05/2019 Ended) Results Not on filefrom Last 3 Months
--- OUTSIDE RECORDS SUMMARY | 2018-11-09 11:05 | XMS REPORT | Clinical Summary ---
Author Author [facility] Organization [facility] Address Unknown Phone Unavailable Care Team Providers Care Paper Folder Name Role Phone Andres Jo MD 100 [...] in the Health Information Management department at [phone] for further assistance in locating additional records.[facility] Allergies Comments Active Allergy Reactions Severity Noted Date Allergy recorded in SMS: Latex~Reactions: RASH Latex 05/07/2005 Allergy recorded in SMS: Penicillin~Reactions: STOMACH UPSET~HIVES Penicillins 09/30/2002 Medications End Date Status Medication Sig Dispensed Refills Start Date Active zolpidem (AMBIEN) 5 mg Take 5 mg by 0 tablet mouth at bedtime daily. Active aspirin EC 81 mg tablet Take 81 mg by 0 mouth daily. Take with food. Active clonazePAM (KLONOPIN) 0.5 Take 0.5 mg 0 mg tablet by mouth at bedtime daily. Active rivastigmine(+) (EXELON) Apply 1 Patch 0 9.5 mg/24 hr transdermal to top of patch skin as directed daily. Active folic acid (FOLVITE) 1 mg Take 1 mg by 0 tablet mouth daily. Active furosemide (LASIX) 20 mg Take 20 mg by 0 tablet mouth every morning. Active atorvastatin (LIPITOR) 80 Take 80 mg by 0 mg tablet mouth daily. Active melatonin 3 mg tab Take 3 mg by 0 mouth at bedtime daily. Active meloxicam (MOBIC) 15 mg Take 15 mg by 0 tablet mouth daily. Active memantine (NAMENDA) 5 mg Take 5 mg by 0 tablet mouth daily. Active potassium chloride SR Take 10 mEq 0 (K-DUR) 10 mEq tablet by mouth daily. Take with a meal and a full glass of water. Active traZODone (DESYREL) 50 mg Take 50 mg by 0 tablet mouth at bedtime daily. Active Calcium-Cholecalciferol Take 1 Cap by 0 (D3) 600 mg calcium- 200 mouth twice unit cap daily. Active levETIRAcetam (KEPPRA) Take 750 mg 0 750 mg tablet by mouth twice daily. Active lamoTRIgine (LAMICTAL) Take 150 mg 0 150 mg tablet by mouth twice daily. Active topiramate (TOPAMAX) 200 Take 200 mg 0 mg tablet by mouth twice daily. Active prednisolone acetate Apply 1 Drop 0 (PRED FORTE) 1 % to both eyes ophthalmic suspension four times daily. Active AMITRIPTYLINE HCL Apply to 100 g 1 (AMITRIPTYLINE/GABAPENTIN affected 6 /EMU OIL(#)) 4/4/10 % joints tid Suspended donepezil (ARICEPT) 10 mg Take 10 mg by 0 tablet mouth daily. 8 Active Problems Problem Noted Date PEG (acute kidney injury) 05/19/2016 Disorientation 05/19/2016 Dementia in conditions classified elsewhere without behavioral disturbance 10/11/2007 Other screening mammogram 07/22/2007 Chest pain 07/21/2007 Seizure disorder Brain injury Dementia Psychosis GERD (gastroesophageal reflux disease) Restless leg syndrome Social History Date Tobacco Use Types Packs/Day Years Used Current Every Day Smoker Alcohol Use Drinks/Week oz/Week Comments No Sex Assigned at Date Recorded Not on file Industry Job Start Date Occupation Not on file Not on file Not on file Travel End Travel History Travel Start No recent travel history available. Last Filed Vital Signs Time Taken Vital Sign Reading 05/19/2016 8:00 AM [employer] Blood Pressure 135/52 05/18/2016 4:43 PM [employer] Pulse 56 05/19/2016 8:00 AM [employer] Temperature 36.4 C (97.6 F) - Respiratory Rate - 05/19/2016 8:00 AM [employer] Oxygen Saturation 97% - Inhaled Oxygen - Concentration 05/18/2016 4:43 PM [employer] Weight 95.3 kg (210 lb) 05/18/2016 4:43 PM [employer] Height 162.6 cm (5' 4") 05/18/2016 4:43 PM [employer] Body Mass Index 36.05 Plan of Treatment Health Maintenance Due Date Last Done Comments HEPATITIS C SCREENING 1951 PHYSICAL (COMPREHENSIVE) 1958 EXAM DTAP/TDAP VACCINES (1 - 1969 Tdap) COLORECTAL CANCER 2001 SCREENING SHINGLES RECOMBINANT 2001 VACCINE (1 of 2) BREAST CANCER SCREENING 07/22/2008 07/22/2007, 07/22/2007 OSTEOPOROSIS 2016 SCREENING/MONITORING PNEUMONIA (PCV13/PPSV23) 2016 VACCINES (1 of 2 - PCV13) INFLUENZA VACCINE 04/04/2019 Results Not on filefrom Last 3 Months Insurance Type Payer Benefit Subscriber ID Effective Phone Address Plan / Dates Group Medicare MEDICARE MEDICARE xxxxxxxxxx 2000-P PART A AND resent B PPO BCBS [place] BCBS [place] xxxxxxxxx 2010-P FED EMP resent PROGRAM Medicaid [facility] MEDICAID [facility] xxxxxxxxxxx 2016- [facility] Present PLAN [place] Advance Directives Patient has advance care planning documents, and code status on file. For more information, please contact: [facility] [address] [place] [address] Date Inactivated Comments Code Status Date Activated 05/19/2016 2:21 PM Full Code 05/19/2016 3:40 AM Provider has discussed Code Status No, more discussion w/Patient or Family? needed
--- OUTSIDE RECORDS SUMMARY | 2018-11-09 11:06 | XMS REPORT ---
Author Author Migration, Doctor Organization [facility] Address Unknown Phone Unavailable Care Team Providers Care Quality Improvement Engineer Name Role Phone Migration, Doctor Unavailable Unavailable PROBLEMS Type Condition ICD9-CM Code [id number] Code Onset Dates Condition Status SNOMED Code Problem Loss of weight 783.21 Active 730300424 Problem Other malaise and fatigue 780.79 Active 528977387 Problem Pain in soft tissues of limb 729.5 Active 40080330 Problem Other specified cardiac dysrhythmias 427.89 Active 280685538 Problem Other and unspecified hyperlipidemia 272.4 Active 08060486 Problem Muscle weakness (generalized) 728.87 Active 04150335 Problem Cervicalgia 723.1 Active 91136362 Problem Unspecified arthropathy, site 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.90 Active 574295314 Problem Unspecified symptom associated with female genital organs 625.9 Active 030008384 ALLERGIES No Information ENCOUNTERS Encounter Location Date Diagnosis [facility] [address] [id number] Sep, Dental caries K02.9 [facility] [address] [id number] Sep, [facility] [address] [id number] Sep, Dental examination Z01.20 [facility] [address] [id number] May, Dental examination Z01.20 [facility] [id number] [place] [address] [id number] Apr, Dental examination Z01.20 [facility] [id number] [place] [address] 15163- [address]15 Dec, [facility] [address] [id number] Feb, Dental examination Z01.20 [facility] [address] [id number] Jan, Dental caries K02.9 [facility] [id number] [place] [address] [id number] Dec, Dental examination Z01.20 [facility] [id number] [place] [address] [id number] Oct, Dental examination Z01.20 [facility] [id number] [place] [address] [id number] Aug, Encounter for dental examination Z01.20 [facility] [address] [address] Aug, [facility] [id number] [place] [address] 96672- 9286 Mar, [facility] [id number] [place] [address] [id number] Mar, Dental examination V72.2 [facility] [id number] [place] [address] 432314- 6591 Feb, Unspecified arthropathy, site 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.90 ; Psychotic disorder 298.9 and Seborrhea 706.3 [facility] [address] [place] [address] 302719- 3046 Jan, [facility] [id number] [place] [address] [id number]- [id number] Dec, Dizziness 780.4 and Pain in soft tissues of limb 729.5 [facility] [id number] [place] [address] 17825- 2937 Dec, [facility] [id number] [place] [address] [id number] 1874 Oct, [facility] [id number] [place] [address] [id number] Oct, [facility] [id number] [place] [address] 60153- 8030 19 Sep, 2014 [facility] [place] [facility] [address] [id number] [place] [address]- 4638 19 Sep, 2014 [facility] [place] [facility] [address] [id number] [place] [address]- 5888 11 Sep, 2014 [facility] [place] [facility] [address] [id number] [place] [address]- 6648 11 Sep, 2014 [facility] [place] [facility] [address] [id number] [place] [address]- 7649 13 Aug, 2014 [facility] [place] [facility] [address] [id number] [place] [address]- 8988 13 Aug, 2014 [facility] [place] [facility] [address] [id number] [place] [address]- 5143 17 May, 2014 [facility] [place] [facility] [address] [id number] [place] [address]- 0367 17 May, 2014 [facility] [place] [facility] [address] [id number] [place] [address]- 3540 17 May, 2014 [facility] [place] [facility] [address] [id number] [place] [address]- 8709 17 May, 2014 [facility] [place] [facility] [address] [facility] [id number] [place] [address]- 1306 17 May, 2014 [facility] [place] [facility] [address] [id number] [place] [address]- 3199 17 May, 2014 [facility] [place] [facility] [address] [id number] [place] [address]- 6395 17 May, 2014 [facility] [place] [facility] [address] [id number] [place] [address]- 5298 14 May, 2014 [facility] [place] [facility] [address] [id number] [place] [address]- 1257 14 May, 2014 [facility] [place] [facility] [address] [id number] [place] [address]- 3610 07 May, 2014 [facility] [place] [facility] [address] [id number] [place] [address]- 3431 May, [facility] [place] [facility] [address] [id number] [place] [address]- 3484 Apr, [facility] [place] [facility] [address] [id number] [place] [address]- 4966 Apr, [facility] [place] [facility] [address] [id number] [place] [address]- 4459 Feb, [facility] [place] [facility] [address] [id number] [place] [address]- 8995 Feb, [facility] [place] [facility] [address] [id number] [place] [address]- 8191 Feb, [facility] [place] [facility] [address] [id number] [place] [address]- 3550 Feb, [facility] [place] [facility] [address] [id number] [place] [address]- 0309 Jan, [facility] [place] [facility] [address] [id number] [place] [address]- 6550 Jan, [facility] [place] [facility] [address] [id number] [place] [address]- 3678 Jan, [facility] [place] [facility] [address] [id number] [place] [address]- 8454 Jan, [facility] [place] [facility] [address] [id number] [place] [address]- 0189 Dec, [facility] [place] [facility] [address] [id number] [place] [address]- 5455 Dec, [facility] [place] [facility] [address] [id number] [place] [address]- 8236 Dec, [facility] [place] [facility] [address] [id number] [place] [address]- 7313 Dec, [facility] [place] [facility] [address] [id number] [place] [address]- 2147 Oct, [facility] [place] [facility] [address] [id number] [place] [address]- 3260 28 Oct, 2013 [facility] [place] [facility] [address] [id number] [place] [address]- 5839 Oct, [facility] [place] [facility] [address] [id number] [place] [address]- 2936 Oct, [facility] [place] [facility] [address] [id number] [place] [address]- 9825 Oct, [facility] [place] [facility] [address] [id number] [place] [address]- 4836 Oct, [facility] [place] [facility] [address] [id number] [place] [address]- 4487 Oct, [facility] [place] [facility] [address] [id number] [place] [address]- 2888 15 Jul, 2013 [facility] [place] [facility] [address] [id number] [place] [address]- 7599 Jul, [facility] [place] [facility] [address] [id number] [place] [address]- 7203 Jun, [facility] [place] [facility] [address] [id number] [place] [address]- 5138 Jun, [facility] [place] [facility] [address] [id number] [place] [address]- 6275 Jun, [facility] [place] [facility] [address] [id number] [place] [address]- 9317 Jun, [facility] [place] [facility] [address] [id number] [place] [address]- 3775 May, [facility] [place] [facility] [address] [id number] [place] [address]- 7415 May, [facility] [place] [facility] [address] [id number] [place] [address]- 0415 May, [facility] [place] [facility] [address] [id number] [place] [address]- 3130 May, [facility] [address] [id number] [place] [address]- 3021 Apr, [facility] [place] [facility] [address] [id number] [place] [address]- 9814 Apr, [facility] [address] [id number] [place] [address]- 6686 Apr, [facility] [place] [facility] [address] [id number] [place] [address]- 4307 Apr, [facility] [address] [id number] [place] [address]- 6117 Apr, [facility] [place] [facility] [address] [id number] [place] [address]- 1281 Mar, [facility] [place] [facility] [address] [id number] [place] [address]- 9487 Mar, [facility] [place] [facility] [address] [id number] [place] [address]- 4352 Mar, [facility] [place] [facility] [address] [id number] [place] [address]- 0604 Mar, [facility] [place] [facility] [address] [id number] [place] [address]- 3796 Feb, [facility] [place] [facility] [address] [id number] [place] [address]- 5165 Jan, [facility] [place] [facility] [address] [id number] [place] [address]- 6163 Jan, [facility] [place] [facility] [address] [id number] [place] [address]- 7624 Jan, [facility] [place] [facility] [address] [id number] [place] [address]- 0052 Jan, [facility] [place] [facility] [address] [id number] [place] [address]- 4556 Jan, [facility] [place] [facility] [address] [id number] [place] [address] Jan, [facility] [place] [facility] [address] [id number] [place] [address]- 5482 Jan, [facility] [place] [facility] [address] [id number] [place] [address]- 7749 November, [facility] [place] [facility] [address] [id number] [place] [address]- 0672 Sep, [facility] [place] [facility] [address] [id number] [place] [address]- 1694 Sep, [facility] [place] [facility] [address] [id number] [place] [address]- 5305 Aug, [facility] [place] [facility] [address] [id number] [place] [address]- 9394 Aug, [facility] [place] [facility] [address] [id number] [place] [address]- 9889 Jul, [facility] [place] [facility] [address] [id number] [place] [address]- 6994 Jul, [facility] [place] [facility] [address] [id number], [place] [address]- 6803 Jul, [facility] [place] [facility] [address] [id number], [place] [address]- 5943 May, [facility] [place] [facility] [address] [id number], [place] [address]- 1984 Apr, [facility] [place] [facility] [address] [id number] [place] [address]- 5773 Apr, [facility] [place] [facility] [address] [id number] [place] [address]- 7376 Apr, [facility] [place] [facility] [address] [id number] [place] [address]- 4897 Apr, [facility] [place] [facility] [address] [id number], [place] [address]- 6227 17 Apr, 2012 [facility] [address] [id number] [place] [address]- 2341 Mar, [facility] [place] [facility] [address] [id number] [place] [address]- 5396 Feb, [facility] [address] [facility] [id number] [place] [address]- 1954 Feb, [facility] [place] [facility] [address] [id number] [place] [address]- 1353 Jan, [facility] [address] [id number] [place] [address]- 3379 Jan, [facility] [place] [facility] [address] [id number] [place] [address]- 6138 November, [facility] [address] [place] [address]- 9380 20 Oct, 2011 [facility] [place] [facility] [address] [id number] [place] [address]- 8752 19 Oct, 2011 [facility] [place] [facility] [address] [id number] [place] [address]- 9355 18 Oct, 2011 [facility] [place] [facility] [id number] [place] [address]- 1480 18 Oct, 2011 [facility] [place] [facility] [address] [id number] [place] [address]- 0338 16 Oct, 2011 [facility] [place] [facility] [address] [id number], [place] [address]- 8693 13 Oct, 2011 [facility] [place] [facility] [address] [id number] [place] [address]- 4532 12 Oct, 2011 [facility] [place] [facility] [address] [facility] [id number] [place] [address]- 6650 11 Oct, 2011 [facility] [place] [facility] [address] [id number] [place] [address]- 1175 10 Oct, 2011 [facility] [place] [facility] [address] [id number] [place] [address]- 6240 10 Oct, 2011 [facility] [place] [facility] [address] [id number] [place] [address]- 9530 Sep, [facility] [place] [facility] [address] [id number] [place] [address]- 5906 10 Aug, 2011 [facility] [place] [facility] [address] [id number] [place] [address]- 3569 Jun, [facility] [place] [facility] [address] [id number] [place] [address]- 5528 Jun, [facility] [place] [facility] [address] [id number] [place] [address]- 9881 Jun, [facility] [place] [facility] [address] [id number] [place] [address]- 0665 Jun, [facility] [place] [facility] [address] [id number] [place] [address]- 2147 Jun, [facility] [place] [facility] [address] [id number] [place] [address]- 4462 May, [facility] [place] [facility] [address] [id number] [place] [address]- 3234 Apr, [facility] [place] [facility] [address] [id number] [place] [address]- 1243 Apr, [facility] [place] [facility] [address] [id number] [place] [address]- 0975 15 Oct, 2010 [facility] [place] [facility] [address] [id number] [place] [address]- 6680 Jun, [facility] [place] [facility] [address] [id number] [place] [address]- 8646 Jun, [facility] [place] [facility] [address] [id number] [place] [address]- 5696 Jun, [facility] [place] [facility] [address] [id number] [place] [address]- 3194 Jun, [facility] [id number], [place] [address]- 4886 May, [facility] [address], [place] [address]- 2546 May, [facility] [address], [place] [address]- 2546 May, [facility] [address], [place] [address]- 254 Apr, [facility] [address], [place] [address]- 6385 Apr, [facility] [address], [place] [address]- 2416 Apr, [facility] [address], [place] [address]- 9376 Oct, [facility] [address], [place] [address]- 4316 Jul, [facility] [id number], [place] [address]- 9589 Apr, [facility] [address] [id number], [place] [address]- 4446 Mar, IMMUNIZATIONS No Known Immunizations SOCIAL HISTORY Never Assessed REASON FOR VISIT EMR-[facility] PLAN OF CARE VITAL SIGNS MEDICATIONS No [...]
--- OUTSIDE RECORDS SUMMARY | 2018-11-09 11:06 | XMS REPORT ---
Author Author Migration, Doctor Organization [facility] Address Unknown Phone Unavailable Care Team Providers Care Prefinish Operator Name Role Phone Migration, Doctor Unavailable Unavailable PROBLEMS Type Condition ICD9-CM Code FCJ52-CE Code Onset Dates Condition Status SNOMED Code Problem Loss of weight 783.21 Active 928267098 Problem Other malaise and fatigue 780.79 Active 669800018 Problem Pain in soft tissues of limb 729.5 Active 68185433 Problem Other specified cardiac dysrhythmias 427.89 Active 175787322 Problem Other and unspecified hyperlipidemia 272.4 Active 17792149 Problem Muscle weakness (generalized) 728.87 Active 52213744 Problem Cervicalgia 723.1 Active 61822878 Problem Unspecified arthropathy, site 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.90 Active 485476571 Problem Unspecified symptom associated with female genital organs 625.9 Active 069866139 ALLERGIES No Information ENCOUNTERS Encounter Location Date Diagnosis [facility] [address] [id number] Sep, Dental caries K02.9 [facility] [address] [id number] Sep, [facility] [address] [id number] Sep, Dental examination Z01.20 [facility] [address] [id number] May, Dental examination Z01.20 [facility] [id number] [place] [address] [id number] Apr, Dental examination Z01.20 [facility] [id number] [place] [address] 13775- 5946 Dec, [facility] [address] [id number] Feb, Dental examination Z01.20 [facility] [address] [id number] Jan, Dental caries K02.9 [facility] [id number] [place] [address] [id number] Dec, Dental examination Z01.20 [facility] [id number] [place] [address] [id number] Oct, Dental examination Z01.20 [facility] [id number] [place] [address] [id number] Aug, Encounter for dental examination Z01.20 [facility] [address] [address]- [address] Aug, [facility] [id number] [place] [address] 73360- 9406 Mar, [facility] [id number] [place] [address] [id number] Mar, Dental examination V72.2 [facility] [id number] [place] [address] [id number]- 0837 Feb, Unspecified arthropathy, site 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.90 ; Psychotic disorder 298.9 and Seborrhea 706.3 [facility] [id number] [place] [address] 497604- 6676 Jan, [facility] [id number] [place] [address] [id number] [phone] Dec, Dizziness 780.4 and Pain in soft tissues of limb 729.5 [facility] [id number] [place] [address] 98186- 1462 Dec, [facility] [id number] [place] [address] [id number] Oct, [facility] [id number] [place] [address] [id number] [id number] Oct, [facility] [id number] [place] [address] 14357- 7061 19 Sep, 2014 [facility] [place] [facility] [address] [id number] [place] [address]- 9380 19 Sep, 2014 [facility] [place] [facility] [address] [id number] [place] [address]- 0472 11 Sep, 2014 [facility] [place] [facility] [address] [id number] [place] [address]- 4986 11 Sep, 2014 [facility] [place] [facility] [address] [id number] [place] [address]- 5545 13 Aug, 2014 [facility] [place] [facility] [address] [id number] [place] [address]- 3283 13 Aug, 2014 [facility] [place] [facility] [address] [id number] [place] [address]- 8637 17 May, 2014 [facility] [place] [facility] [address] [id number] [place] [address]- 1241 17 May, 2014 [facility] [place] [facility] [address] [id number] [place] [address]- 0285 17 May, 2014 [facility] [place] [facility] [address] [id number] [place] [address]- 0563 17 May, 2014 [facility] [place] [facility] [address] [facility] [id number] [place] [address]- 0186 17 May, 2014 [facility] [place] [facility] [address] [id number] [place] [address] 2000 17 May, 2014 [facility] [place] [facility] [address] [id number] [place] [address]- 6489 17 May, 2014 [facility] [place] [facility] [address] [id number] [place] [address]- 6554 14 May, 2014 [facility] [place] [facility] [address] [id number] [place] [address]- 1068 14 May, 2014 [facility] [place] [facility] [address] [id number] [place] [address]- 8836 07 May, 2014 [facility] [place] [facility] [address] [id number] [place] [address]- 6384 May, [facility] [place] [facility] [address] [id number] [place] [address] 3833 Apr, [facility] [place] [facility] [address] [id number] [place] [address]- 8028 Apr, [facility] [place] [facility] [address] [id number] [place] [address]- 9606 Feb, [facility] [place] [facility] [address] [id number] [place] [address]- 5100 Feb, [facility] [place] [facility] [address] [id number] [place] [address]- 1801 Feb, [facility] [place] [facility] [address] [id number] [place] [address]- 3911 Feb, [facility] [place] [facility] [address] [id number] [place] [address]- 5622 Jan, [facility] [place] [facility] [address] [id number] [place] [address]- 2879 Jan, [facility] [place] [facility] [address] [id number] [place] [address]- 9101 Jan, [facility] [place] [facility] [address] [id number] [place] [address]- 5391 Jan, [facility] [place] [facility] [address] [id number] [place] [address]- 7249 Dec, [facility] [place] [facility] [address] [id number] [place] [address]- 7609 Dec, [facility] [place] [facility] [address] [id number] [place] [address]- 9468 Dec, [facility] [place] [facility] [address] [id number] [place] [address]- 3086 Dec, [facility] [place] [facility] [address] [id number] [place] [address]- 6086 Oct, [facility] [place] [facility] [address] [id number] [place] [address]- 0318 28 Oct, 2013 [facility] [place] [facility] [address] [id number] [place] [address]- 5290 Oct, [facility] [place] [facility] [address] [id number] [place] [address]- 7340 Oct, [facility] [place] [facility] [address] [id number] [place] [address]- 1978 Oct, [facility] [place] [facility] [address] [id number] [place] [address]- 6566 Oct, [facility] [place] [facility] [address] [id number] [place] [address]- 3779 Oct, [facility] [place] [facility] [address] [id number] [place] [address]- 1479 15 Jul, 2013 [facility] [place] [facility] [address] [id number] [place] [address]- 6060 Jul, [facility] [place] [facility] [address] [id number] [place] [address]- 8599 Jun, [facility] [place] [facility] [address] [id number] [place] [address]- 6486 Jun, [facility] [place] [facility] [address] [id number] [place] [address]- 5734 Jun, [facility] [place] [facility] [address] [id number] [place] [address]- 4617 Jun, [facility] [place] [facility] [address] [id number] [place] [address]- 1308 May, [facility] [place] [facility] [address] [id number] [place] [address]- 0410 May, [facility] [place] [facility] [address] [id number] [place] [address]- 8499 May, [facility] [place] [facility] [address] [id number] [place] [address]- 8961 May, [facility] [address] [id number] [place] [address]- 9123 Apr, [facility] [place] [facility] [address] [id number] [place] [address]- 8789 Apr, [facility] [address] [id number] [place] [address]- 9558 Apr, [facility] [place] [facility] [address] [id number] [place] [address]- 3700 Apr, [facility] [address] [id number] [place] [address]- 2144 Apr, [facility] [place] [facility] [address] [id number] [place] [address]- 9896 Mar, [facility] [place] [facility] [address] [id number] [place] [address]- 6976 Mar, [facility] [place] [facility] [address] [id number] [place] [address]- 7157 Mar, [facility] [place] [facility] [address] [id number] [place] [address]- 5266 Mar, [facility] [place] [facility] [address] [id number] [place] [address]- 3565 Feb, [facility] [place] [facility] [address] [id number] [place] [address]- 1432 Jan, [facility] [place] [facility] [address] [id number] [place] [address]- 8352 Jan, [facility] [place] [facility] [address] [id number] [place] [address]- 7342 Jan, [facility] [place] [facility] [address] [id number] [place] [address]- 0106 Jan, [facility] [place] [facility] [address] [id number] [place] [address]- 8190 Jan, [facility] [place] [facility] [address] [id number] [place] [address]- 2474 Jan, [facility] [place] [facility] [address] [id number] [place] [address]- 5070 Jan, [facility] [place] [facility] [address] [id number] [place] [address]- 9534 November, [facility] [place] [facility] [address] [id number] [place] [address]- 4007 Sep, [facility] [place] [facility] [address] [id number] [place] [address]- 5731 Sep, [facility] [place] [facility] [address] [id number] [place] [address]- 2583 Aug, [facility] [place] [facility] [address] [id number] [place] [address]- 4674 Aug, [facility] [place] [facility] [address] [id number] [place] [address]- 8477 Jul, [facility] [place] [facility] [address] [id number] [place] [address]- 4618 Jul, [facility] [place] [facility] [address] [id number], [place] [address]- 2430 Jul, [facility] [place] [facility] [address] [id number], [place] [address]- 5362 May, [facility] [place] [facility] [address] [id number], [place] [address]- 8988 Apr, [facility] [place] [facility] [address] [id number] [place] [address]- 6929 Apr, [facility] [place] [facility] [address] [id number] [place] [address]- 6456 Apr, [facility] [place] [facility] [address] [id number] [place] [address]- 1109 Apr, [facility] [place] [facility] [address] [id number], [place] [address]- 3427 17 Apr, 2012 [facility] [address] [id number] [place] [address]- 0313 Mar, [facility] [place] [facility] [address] [id number] [place] [address]- 9256 Feb, [facility] [address] [facility] [id number] [place] [address]- 3304 Feb, [facility] [place] [facility] [address] [id number] [place] [address]- 1190 Jan, [facility] [address] [id number] [place] [address]- 7602 Jan, [facility] [place] [facility] [address] [id number] [place] [address]- 2611 November, [facility] [id number] [place] [address]- 2263 20 Oct, 2011 [facility] [place] [facility] [address] [id number] [place] [address]- 2495 19 Oct, 2011 [facility] [place] [facility] [address] [id number] [place] [address]- 3477 18 Oct, 2011 [facility] [place] [facility] [id number] [place] [address]- 3643 18 Oct, 2011 [facility] [place] [facility] [address] [id number] [place] [address]- 5861 16 Oct, 2011 [facility] [place] [facility] [address] [id number], [place] [address]- 6872 13 Oct, 2011 [facility] [place] [facility] [address] [id number] [place] [address]- 8314 12 Oct, 2011 [facility] [place] [facility] [address] [facility] [id number] [place] [address]- 2914 11 Oct, 2011 [facility] [place] [facility] [id number] [place] [address]- 1473 10 Oct, 2011 [facility] [place] [facility] [address] [id number] [place] [address]- 8833 10 Oct, 2011 [facility] [place] [facility] [address] [id number] [place] [address]- 4839 Sep, [facility] [place] [facility] [address] [id number] [place] [address]- 7106 10 Aug, 2011 [facility] [place] [facility] [address] [id number] [place] [address]- 9769 Jun, [facility] [place] [facility] [address] [id number] [place] [address]- 0385 Jun, [facility] [place] [facility] [address] [id number] [place] [address]- 2604 Jun, [facility] [place] [facility] [address] [id number] [place] [address]- 2567 Jun, [facility] [place] [facility] [address] [id number] [place] [address]- 2994 Jun, [facility] [place] [facility] [address] [id number] [place] [address]- 8314 May, [facility] [place] [facility] [address] [id number] [place] [address]- 3590 Apr, [facility] [place] [facility] [address] [id number] [place] [address]- 2662 Apr, [facility] [place] [facility] [address] [id number] [place] [address]- 1751 15 Oct, 2010 [facility] [place] [facility] [address] [id number] [place] [address]- 9031 Jun, [facility] [place] [facility] [address] [id number] [place] [address]- 4086 Jun, [facility] [place] [facility] [address] [id number] [place] [address]- 7826 Jun, [facility] [place] [facility] [address] [id number] [place] [address]- 1962 Jun, [facility] [address] [facility] [id number], [place] [address]- 6013 May, [facility] [address] [facility] [id number] 7835 May, [facility] [address] [facility] [id number][place] 8704 May, [facility] [address] [facility] [id number], [place] [address]- 0574 Apr, [facility] [address] [facility] [id number], [place] [address]- 2278 Apr, [facility] [address] [facility] [id number] 2262 Apr, [facility] [address] [address]- 2077 Oct, [facility] [address] [address]- 7834 Jul, [facility] [id number] [address]- 1394 Apr, [facility] [address] [id number] [address]- 3591 Mar, IMMUNIZATIONS No Known Immunizations SOCIAL HISTORY Never Assessed REASON FOR VISIT EMR-[facility] [place]AN OF CARE VITAL SIGNS MEDICATIONS Medication Instructions Dosage Frequency Start Date End Date Duration Status Topamax 200 mg 1 Tablet by Oral route 2 times per day Jan, Active Levaquin 500 mg 1 tablet by Oral route every 24 hours for 10 days May, Active Keppra 750 mg 2 tablet by Oral route 2 times per day Jan, Active Calcium-Vitamin D 600 mg-125 units 1 tablet by Oral route 2 times per day Jan, Active atorvastatin 40 mg take 1 tablet (40 mg) by oral route once daily at bedtime Oct, Active Ambien 10 mg 1 tablet by Oral route 1 time per day PRN Aug, Active Biotin by oral route 5000 mcg once daily Jun, Active Klonopin 0.5 mg 1 Tablet by Oral route 1 time per day at [facility] Sep, Active Namenda 10 mg take 1 tablet (10 mg) by oral route 2 times per day May, Active MethylPREDNISolone 4 mg by Oral route every day for 6 days as directed per dose pack May, Active RESULTS No Results PROCEDURES No Known procedures [...]
--- OUTSIDE RECORDS SUMMARY | 2018-11-09 11:06 | XMS REPORT ---
Author Author Migration, Doctor Organization [facility] Address Unknown Phone Unavailable Care Team Providers Care Physician Compensation Analyst Name Role Phone Migration, Doctor Unavailable Unavailable PROBLEMS Type Condition ICD9-CM Code FPH11-DG Code Onset Dates Condition Status SNOMED Code Problem Loss of weight 783.21 Active 139292964 Problem Other malaise and fatigue 780.79 Active 084761595 Problem Pain in soft tissues of limb 729.5 Active 87609131 Problem Other specified cardiac dysrhythmias 427.89 Active 199802709 Problem Other and unspecified hyperlipidemia 272.4 Active 66752425 Problem Muscle weakness (generalized) 728.87 Active 39063167 Problem Cervicalgia 723.1 Active 68429580 Problem Unspecified arthropathy, site 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.90 Active 777281834 Problem Unspecified symptom associated with female genital organs 625.9 Active [id number] ALLERGIES No Information ENCOUNTERS Encounter Location Date Diagnosis [facility] [address] [id number] Sep, Dental caries K02.9 [facility] [address] [id number] Sep, [facility] [address] [id number] Sep, Dental examination Z01.20 [facility] [address] [id number] May, Dental examination Z01.20 [facility] [id number] [place] [address] [id number] Apr, Dental examination Z01.20 [facility] [id number] [place] [address] 84386- 6548 Dec, [facility] [address] [id number] Feb, Dental examination Z01.20 [facility] [address] [id number] Jan, Dental caries K02.9 [facility] [id number] [place] [address] [id number] Dec, Dental examination Z01.20 [facility] [id number] [place] [address] [id number] Oct, Dental examination Z01.20 [facility] [id number] [place] [address] [id number] Aug, Encounter for dental examination Z01.20 [facility] [address] [address]- [address] Aug, [facility] [id number] [place] [address] 47747- 2176 Mar, [facility] [id number] [place] [address] [id number] Mar, Dental examination V72.2 [facility] [id number] [place] [address] 233708- 0037 Feb, Unspecified arthropathy, site 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.90 ; Psychotic disorder 298.9 and Seborrhea 706.3 [facility] [id number] [place] [address] [id number]- 4826 Jan, [facility] [id number] [place] [address] [id number] Dec, Dizziness 780.4 and Pain in soft tissues of limb 729.5 [facility] [id number] [place] [address] 69058- 8980 Dec, [facility] [id number] [place] [address] [id number] Oct, [facility] [id number] [place] [address] [id number] Oct, [facility] [id number] [place] [address] 55623- 6813 19 Sep, 2014 [facility] [place] [facility] [address] [id number] [place] [address]- 9387 19 Sep, 2014 [facility] [place] [facility] [address] [id number] [place] [address]- 9982 11 Sep, 2014 [facility] [place] [facility] [address] [id number] [place] [address]- 3118 11 Sep, 2014 [facility] [place] [facility] [address] [id number] [place] [address]- 4039 13 Aug, 2014 [facility] [place] [facility] [address] [id number] [place] [address]- 6779 13 Aug, 2014 [facility] [place] [facility] [address] [id number] [place] [address]- 0073 17 May, 2014 [facility] [place] [facility] [address] [id number] [place] [address]- 7921 17 May, 2014 [facility] [place] [facility] [address] [id number] [place] [address]- 2407 17 May, 2014 [facility] [place] [facility] [address] [id number] [place] [address]- 0866 17 May, 2014 [facility] [place] [facility] [address] [facility] [id number] [place] [address]- 7691 17 May, 2014 [facility] [place] [facility] [address] [id number] [place] [address]- 3507 17 May, 2014 [facility] [place] [facility] [address] [id number] [place] [address]- 6978 17 May, 2014 [facility] [place] [facility] [address] [id number] [place] [address]- 1152 14 May, 2014 [facility] [place] [facility] [address] [id number] [place] [address]- 5393 14 May, 2014 [facility] [place] [facility] [address] [id number] [place] [address]- 3875 07 May, 2014 [facility] [place] [facility] [address] [id number] [place] [address]- 7696 May, [facility] [place] [facility] [address] [id number] [place] [address]- 8485 Apr, [facility] [place] [facility] [address] [id number] [place] [address]- 6263 Apr, [facility] [place] [facility] [address] [id number] [place] [address]- 0477 Feb, [facility] [place] [facility] [address] [id number] [place] [address]- 0879 Feb, [facility] [place] [facility] [address] [id number] [place] [address]- 4605 Feb, [facility] [place] [facility] [address] [id number] [place] [address]- 7290 Feb, [facility] [place] [facility] [address] [id number] [place] [address]- 6188 Jan, [facility] [place] [facility] [address] [id number] [place] [address]- 4376 Jan, [facility] [place] [facility] [address] [id number] [place] [address]- 1839 Jan, [facility] [place] [facility] [address] [id number] [place] [address]- 3530 Jan, [facility] [place] [facility] [address] [id number] [place] [address]- 6669 Dec, [facility] [place] [facility] [address] [id number] [place] [address]- 0832 Dec, [facility] [place] [facility] [address] [id number] [place] [address]- 5179 Dec, [facility] [place] [facility] [address] [id number] [place] [address]- 4396 Dec, [facility] [place] [facility] [address] [id number] [place] [address]- 5684 Oct, [facility] [place] [facility] [address] [id number] [place] [address]- 9118 28 Oct, 2013 [facility] [place] [facility] [address] [id number] [place] [address]- 0847 Oct, [facility] [place] [facility] [address] [id number] [place] [address]- 9072 Oct, [facility] [place] [facility] [address] [id number] [place] [address]- 9001 Oct, [facility] [place] [facility] [address] [id number] [place] [address]- 4598 Oct, [facility] [place] [facility] [address] [id number] [place] [address]- 1193 Oct, [facility] [place] [facility] [address] [id number] [place] [address]- 7576 15 Jul, 2013 [facility] [place] [facility] [address] [id number] [place] [address]- 3129 Jul, [facility] [place] [facility] [address] [id number] [place] [address]- 0589 Jun, [facility] [place] [facility] [address] [id number] [place] [address]- 6052 Jun, [facility] [place] [facility] [address] [id number] [place] [address]- 1312 Jun, [facility] [place] [facility] [address] [id number] [place] [address]- 4809 Jun, [facility] [place] [facility] [address] [id number] [place] [address]- 9235 May, [facility] [place] [facility] [address] [id number] [place] [address]- 4308 May, [facility] [place] [facility] [address] [id number] [place] [address]- 8189 May, [facility] [place] [facility] [address] [id number] [place] [address]- 9391 May, [facility] [address] [id number] [place] [address]- 8455 Apr, [facility] [place] [facility] [address] [id number] [place] [address]- 0858 Apr, [facility] [address] [id number] [place] [address]- 5467 Apr, [facility] [place] [facility] [address] [id number] [place] [address]- 2658 Apr, [facility] [address] [id number] [place] [address]- 0736 Apr, [facility] [place] [facility] [address] [id number] [place] [address]- 8594 Mar, [facility] [place] [facility] [address] [id number] [place] [address]- 9943 Mar, [facility] [place] [facility] [address] [id number] [place] [address]- 2957 Mar, [facility] [place] [facility] [address] [id number] [place] [address]- 3932 Mar, [facility] [place] [facility] [address] [id number] [place] [address]- 6382 Feb, [facility] [place] [facility] [address] [id number] [place] [address]- 5447 Jan, [facility] [place] [facility] [address] [id number] [place] [address]- 3555 Jan, [facility] [place] [facility] [address] [id number] [place] [address]- 4237 Jan, [facility] [place] [facility] [address] [id number] [place] [address]- 4409 Jan, [facility] [place] [facility] [address] [id number] [place] [address]- 0801 Jan, [facility] [place] [facility] [address] [id number] [place] [address]- 1689 Jan, [facility] [place] [facility] [address] [id number] [place] [address]- 3992 Jan, [facility] [place] [facility] [address] [id number] [place] [address]- 9535 November, [facility] [place] [facility] [address] [id number] [place] [address]- 8803 Sep, [facility] [place] [facility] [address] [id number] [place] [address]- 1071 Sep, [facility] [place] [facility] [address] [id number] [place] [address]- 6230 Aug, [facility] [place] [facility] [address] [id number] [place] [address]- 2073 Aug, [facility] [place] [facility] [address] [id number] [place] [address]- 7198 Jul, [facility] [place] [facility] [address] [id number] [place] [address]- 1423 Jul, [facility] [place] [facility] [address] [id number] [address]- 8632 Jul, [facility] [place] [facility] [address] [id number], [place] [address]- 1563 May, [facility] [place] [facility] [address] [id number], [place] [address]- 6253 Apr, [facility] [place] [facility] [address] [id number] [place] [address]- 4483 Apr, [facility] [place] [facility] [address] [id number] [place] [address]- 6546 Apr, [facility] [place] [facility] [address] [id number] [place] [address]- 1227 Apr, [facility] [place] [facility] [address] [id number], [place] [address]- 6106 17 Apr, 2012 [facility] [address] [id number] [place] [address]- 8661 Mar, [facility] [place] [facility] [address] [id number] [place] [address]- 8205 Feb, [facility] [address] [facility] [id number] [place] [address]- 8469 Feb, [facility] [place] [facility] [address] [id number] [place] [address]- 0161 Jan, [facility] [address] [id number] [place] [address]- 9813 Jan, [facility] [place] [facility] [address] [id number] [place] [address]- 6855 November, [facility] [address] [place] [address]- 4705 20 Oct, 2011 [facility] [place] [facility] [address] [id number] [place] [address]- 4650 19 Oct, 2011 [facility] [place] [facility] [address] [id number] [place] [address]- 4721 18 Oct, 2011 [facility] [place] [facility] [id number] [place] [address]- 7660 18 Oct, 2011 [facility] [place] [facility] [address] [id number] [place] [address]- 1876 16 Oct, 2011 [facility] [place] [facility] [address] [id number], [place] [address]- 4965 13 Oct, 2011 [facility] [place] [facility] [address] [id number] [place] [address]- 9271 12 Oct, 2011 [facility] [place] [facility] [address] [facility] [id number] [place] [address]- 0411 11 Oct, 2011 [facility] [place] [facility] [id number] [place] [address]- 8712 10 Oct, 2011 [facility] [place] [facility] [address] [id number] [place] [address]- 5750 10 Oct, 2011 [facility] [place] [facility] [address] [id number] [place] [address]- 1043 Sep, [facility] [place] [facility] [address] [id number] [place] [address]- 0656 10 Aug, 2011 [facility] [place] [facility] [address] [id number] [place] [address]- 1605 Jun, [facility] [place] [facility] [address] [id number] [place] [address]- 5136 Jun, [facility] [place] [facility] [address] [id number] [place] [address]- 0186 Jun, [facility] [place] [facility] [address] [id number] [place] [address]- 8305 Jun, [facility] [place] [facility] [address] [id number] [place] [address]- 1591 Jun, [facility] [place] [facility] [address] [id number] [place] [address]- 1153 May, [facility] [place] [facility] [address] [id number] [place] [address]- 5216 Apr, [facility] [place] [facility] [address] [id number] [place] [address]- 4764 Apr, [facility] [place] [facility] [address] [id number] [place] [address]- 1651 15 Oct, 2010 [facility] [place] [facility] [address] [id number] [place] [address]- 7064 Jun, [facility] [place] [facility] [address] [id number] [place] [address]- 5716 Jun, [facility] [place] [facility] [address] [id number] [place] [address]- 8896 Jun, [facility] [place] [facility] [address] [id number] [place] [address]- 5187 Jun, [facility] [id number] [address]- 4066 May, [facility] [address], [place] [address]- 2546 May, [facility] [address] [address]- 2546 May, [facility] [address] [address]- 2542 Apr, [facility] [address], [place] [address]- 2074 Apr, [facility] [address] [address]- 8926 Apr, [facility] [address] [address]- 2506 Oct, [facility] [address] [address]- 0746 Jul, [facility] [id number] [address]- 4586 Apr, [facility] [id number] [address]- 3707 Mar, IMMUNIZATIONS No Known Immunizations SOCIAL HISTORY Never Assessed REASON FOR VISIT EMR-[facility] PLAN OF CARE VITAL SIGNS MEDICATIONS No [...]
--- OUTSIDE RECORDS SUMMARY | 2018-11-09 11:07 | XMS REPORT ---
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 Name Role Phone Migration, Doctor Unavailable Unavailable PROBLEMS Type Condition ICD9-CM Code FAV63-VX Code Onset Dates Condition Status SNOMED Code Problem Loss of weight 783.21 Active 446111285 Problem Other malaise and fatigue 780.79 Active 146371685 Problem Pain in soft tissues of limb 729.5 Active 93362652 Problem Other specified cardiac dysrhythmias 427.89 Active 296915703 Problem Other and unspecified hyperlipidemia 272.4 Active 08690947 Problem Muscle weakness (generalized) 728.87 Active 98264198 Problem Cervicalgia 723.1 Active 47295986 Problem Unspecified arthropathy, site 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.90 Active 919951214 Problem Unspecified symptom associated with female genital organs 625.9 Active 196690263 ALLERGIES No Information ENCOUNTERS Encounter Location Date Diagnosis [facility] [address] [id number] Sep, Dental caries K02.9 [facility] [address] [id number] Sep, [facility] [address] [id number] Sep, Dental examination Z01.20 [facility] [address] [id number] May, Dental examination Z01.20 [facility] [id number] [place] [address] [id number] Apr, Dental examination Z01.20 [facility] [id number] [place] [address] 44642- 8334 Dec, [facility] [address] [id number] Feb, Dental examination Z01.20 [facility] [address] [id number] Jan, Dental caries K02.9 [facility] [id number] [place] [address] [id number] Dec, Dental examination Z01.20 [facility] [id number] [place] [address] [id number] Oct, Dental examination Z01.20 [facility] [id number] [place] [address] [id number] Aug, Encounter for dental examination Z01.20 [facility] [address] [address]- [address]26 Aug, [facility] [id number] [place] [address] 50790- 0436 Mar, [facility] [id number] [place] [address] [id number] Mar, Dental examination V72.2 [facility] [id number] [place] [address] [id number]- 4918 Feb, Unspecified arthropathy, site 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.90 ; Psychotic disorder 298.9 and Seborrhea 706.3 [facility] [address] [place] [address] [phone]- 1576 Jan, [facility] [id number] [place] [address] [id number] Dec, Dizziness 780.4 and Pain in soft tissues of limb 729.5 [facility] [id number] [place] [address] 80062- 1354 Dec, [facility] [id number] [place] [address] [id number] Oct, [facility] [id number] [place] [address] [id number] Oct, [facility] [id number] [place] [address] 60639- 7760 19 Sep, 2014 [facility] [place] [facility] [address] [id number] [place] [address]- 0841 19 Sep, 2014 [facility] [place] [facility] [address] [id number] [place] [address]- 7878 11 Sep, 2014 [facility] [place] [facility] [address] [id number] [place] [address]- 1789 11 Sep, 2014 [facility] [place] [facility] [address] [id number] [place] [address]- 9830 13 Aug, 2014 [facility] [place] [facility] [address] [id number] [place] [address]- 3394 13 Aug, 2014 [facility] [place] [facility] [address] [id number] [place] [address]- 0580 17 May, 2014 [facility] [place] [facility] [address] [id number] [place] [address]- 4174 17 May, 2014 [facility] [place] [facility] [address] [id number] [place] [address]- 5568 17 May, 2014 [facility] [place] [facility] [address] [id number] [place] [address]- 8570 17 May, 2014 [facility] [place] [facility] [address] [facility] [id number] [place] [address]- 0058 17 May, 2014 [facility] [place] [facility] [address] [id number] [place] [address]- 8934 17 May, 2014 [facility] [place] [facility] [address] [id number] [place] [address]- 7324 17 May, 2014 [facility] [place] [facility] [address] [id number] [place] [address]- 4683 14 May, 2014 [facility] [place] [facility] [address] [id number] [place] [address]- 6317 14 May, 2014 [facility] [place] [facility] [address] [id number] [place] [address]- 5088 07 May, 2014 [facility] [place] [facility] [address] [id number] [place] [address]- 1664 May, [facility] [place] [facility] [address] [id number] [place] [address]- 3180 Apr, [facility] [place] [facility] [address] [id number] [place] [address]- 8926 Apr, [facility] [place] [facility] [address] [id number] [place] [address]- 7797 Feb, [facility] [place] [facility] [address] [id number] [place] [address]- 9977 Feb, [facility] [place] [facility] [address] [id number] [place] [address]- 2155 Feb, [facility] [place] [facility] [address] [id number] [place] [address]- 8497 Feb, [facility] [place] [facility] [address] [id number] [place] [address]- 6734 Jan, [facility] [place] [facility] [address] [id number] [place] [address]- 2494 Jan, [facility] [place] [facility] [address] [id number] [place] [address]- 9642 Jan, [facility] [place] [facility] [address] [id number] [place] [address]- 9143 Jan, [facility] [place] [facility] [address] [id number] [place] [address]- 4186 Dec, [facility] [place] [facility] [address] [id number] [place] [address]- 3057 Dec, [facility] [place] [facility] [address] [id number] [place] [address]- 4624 Dec, [facility] [place] [facility] [address] [id number] [place] [address]- 8515 Dec, [facility] [place] [facility] [address] [id number] [place] [address]- 4507 Oct, [facility] [place] [facility] [address] [id number] [place] [address]- 5492 28 Oct, 2013 [facility] [place] [facility] [address] [id number] [place] [address]- 1401 Oct, [facility] [place] [facility] [address] [id number] [place] [address]- 1567 Oct, [facility] [place] [facility] [address] [id number] [place] [address]- 2115 Oct, [facility] [place] [facility] [address] [id number] [place] [address]- 7504 Oct, [facility] [place] [facility] [address] [id number] [place] [address]- 4442 Oct, [facility] [place] [facility] [address] [id number] [place] [address]- 3246 15 Jul, 2013 [facility] [place] [facility] [address] [id number] [place] [address]- 8243 Jul, [facility] [place] [facility] [address] [id number] [place] [address]- 3844 Jun, [facility] [place] [facility] [address] [id number] [place] [address]- 3991 Jun, [facility] [place] [facility] [address] [id number] [place] [address]- 0353 Jun, [facility] [place] [facility] [address] [id number] [place] [address]- 6310 Jun, [facility] [place] [facility] [address] [id number] [place] [address]- 2901 May, [facility] [place] [facility] [address] [id number] [place] [address]- 3304 May, [facility] [place] [facility] [address] [id number] [place] [address]- 7628 May, [facility] [place] [facility] [address] [id number] [place] [address]- 4061 May, [facility] [address] [id number] [place] [address]- 6904 Apr, [facility] [place] [facility] [address] [id number] [place] [address]- 7418 Apr, [facility] [address] [id number] [place] [address]- 5788 Apr, [facility] [place] [facility] [address] [id number] [place] [address]- 9690 Apr, [facility] [address] [id number] [place] [address]- 5079 Apr, [facility] [place] [facility] [address] [id number] [place] [address]- 2764 Mar, [facility] [place] [facility] [address] [id number] [place] [address]- 7958 Mar, [facility] [place] [facility] [address] [id number] [place] [address]- 0020 Mar, [facility] [place] [facility] [address] [id number] [place] [address]- 3914 Mar, [facility] [place] [facility] [address] [id number] [place] [address]- 8030 Feb, [facility] [place] [facility] [address] [id number] [place] [address]- 7070 Jan, [facility] [place] [facility] [address] [id number] [place] [address]- 8384 Jan, [facility] [place] [facility] [address] [id number] [place] [address]- 3811 Jan, [facility] [place] [facility] [address] [id number] [place] [address]- 1982 Jan, [facility] [place] [facility] [address] [id number] [place] [address]- 9901 Jan, [facility] [place] [facility] [address] [id number] [place] [address]- 3831 Jan, [facility] [place] [facility] [address] [id number] [place] [address]- 8345 Jan, [facility] [place] [facility] [address] [id number] [place] [address]- 8572 November, [facility] [place] [facility] [address] [id number] [place] [address]- 1554 Sep, [facility] [place] [facility] [address] [id number] [place] [address]- 7666 Sep, [facility] [place] [facility] [address] [id number] [place] [address]- 0101 Aug, [facility] [place] [facility] [address] [id number] [place] [address]- 1230 Aug, [facility] [place] [facility] [address] [id number] [place] [address]- 4508 Jul, [facility] [place] [facility] [address] [id number] [place] [address]- 6809 Jul, [facility] [place] [facility] [address] [id number], [place] [address]- 5780 Jul, [facility] [place] [facility] [address] [id number], [place] [address]- 3499 May, [facility] [place] [facility] [address] [id number], [place] [address]- 9396 Apr, [facility] [place] [facility] [address] [id number] [place] [address]- 2199 Apr, [facility] [place] [facility] [address] [id number] [place] [address]- 7986 Apr, [facility] [place] [facility] [address] [id number] [place] [address]- 6936 Apr, [facility] [place] [facility] [address] [id number], [place] [address]- 2612 17 Apr, 2012 [facility] [address] [id number] [place] [address]- 5906 Mar, [facility] [place] [facility] [address] [id number] [place] [address]- 1000 Feb, [facility] [address] [facility] [id number] [place] [address]- 9811 Feb, [facility] [place] [facility] [address] [id number] [place] [address]- 5309 Jan, [facility] [address] [id number] [place] [address]- 1948 Jan, [facility] [place] [facility] [address] [id number] [place] [address]- 0448 November, [facility] [id number] [place] [address]- 1245 20 Oct, 2011 [facility] [place] [facility] [address] [id number] [place] [address]- 9576 19 Oct, 2011 [facility] [place] [facility] [address] [id number] [place] [address]- 3767 18 Oct, 2011 [facility] [place] [facility] [id number] [place] [address]- 7276 18 Oct, 2011 [facility] [place] [facility] [address] [id number] [place] [address]- 2804 16 Oct, 2011 [facility] [place] [facility] [address] [id number], [place] [address]- 2730 13 Oct, 2011 [facility] [place] [facility] [address] [id number] [place] [address]- 8755 12 Oct, 2011 [facility] [place] [facility] [address] [facility] [id number] [place] [address]- 2435 11 Oct, 2011 [facility] [place] [facility] [id number] [place] [address]- 9694 10 Oct, 2011 [facility] [place] [facility] [address] [id number] [place] [address]- 6830 10 Oct, 2011 [facility] [place] [facility] [address] [id number] [place] [address]- 4375 Sep, [facility] [place] [facility] [address] [id number] [place] [address]- 2756 10 Aug, 2011 [facility] [place] [facility] [address] [id number] [place] [address]- 9055 Jun, [facility] [place] [facility] [address] [id number] [place] [address]- 9736 Jun, [facility] [place] [facility] [address] [id number] [place] [address]- 0067 Jun, [facility] [place] [facility] [address] [id number] [place] [address]- 7078 Jun, [facility] [place] [facility] [address] [id number] [place] [address]- 3024 Jun, [facility] [place] [facility] [address] [id number] [place] [address]- 5678 May, [facility] [place] [facility] [address] [id number] [place] [address]- 1066 Apr, [facility] [place] [facility] [address] [id number] [place] [address]- 7742 Apr, [facility] [place] [facility] [address] [id number] [place] [address]- 5815 15 Oct, 2010 [facility] [place] [facility] [address] [id number] [place] [address]- 9215 Jun, [facility] [place] [facility] [address] [id number] [place] [address]- 9496 Jun, [facility] [place] [facility] [address] [id number] [place] [address]- 9366 Jun, [facility] [place] [facility] [address] [id number] [place] [address]- 5589 Jun, [facility] [id number] [address]- 1636 May, [facility] [id number] [address]- 2546 May, [facility] [id number] [address]- 2546 May, [facility] [address] [address]- 2544 Apr, [facility] [id number] [address]- 1461 Apr, [facility] [address] [address]- 3176 Apr, [facility] [address] [address]- 9656 Oct, [facility] [id number] [address]- 5106 Jul, [facility] [id number] [address]- 4633 Apr, [facility] [id number] [address]- 4578 Mar, IMMUNIZATIONS No Known Immunizations SOCIAL HISTORY Never Assessed REASON FOR VISIT EMR-[facility] PLAN OF CARE VITAL SIGNS MEDICATIONS No [...]
--- OUTSIDE RECORDS SUMMARY | 2018-11-09 11:07 | XMS REPORT ---
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 Name Role Phone Migration, Doctor Unavailable Unavailable PROBLEMS Type Condition ICD9-CM Code RAF50-WK Code Onset Dates Condition Status SNOMED Code Problem Loss of weight 783.21 Active 986393495 Problem Other malaise and fatigue 780.79 Active 637394596 Problem Pain in soft tissues of limb 729.5 Active 18311527 Problem Other specified cardiac dysrhythmias 427.89 Active 588312796 Problem Other and unspecified hyperlipidemia 272.4 Active 71850492 Problem Muscle weakness (generalized) 728.87 Active 46041525 Problem Cervicalgia 723.1 Active 91322935 Problem Unspecified arthropathy, site 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.90 Active 875621214 Problem Unspecified symptom associated with female genital organs 625.9 Active [id number] ALLERGIES No Information ENCOUNTERS Encounter Location Date Diagnosis [facility] [address] [id number] Sep, Dental caries K02.9 [facility] [address] [id number] Sep, [facility] [address] [id number] Sep, Dental examination Z01.20 [facility] [address] [id number] May, Dental examination Z01.20 [facility] [id number] [place] [address] [id number] Apr, Dental examination Z01.20 [facility] [id number] [place] [address]16- [address]41 Dec, [facility] [address] [id number] Feb, Dental examination Z01.20 [facility] [address] [id number] Jan, Dental caries K02.9 [facility] [id number] [place] [address] [id number] Dec, Dental examination Z01.20 [facility] [id number] [place] [address] [id number] Oct, Dental examination Z01.20 [facility] [id number] [place] [address] [id number] Aug, Encounter for dental examination Z01.20 [facility] [address] [address] Aug, [facility] [id number] [place] [address] 08053- 4356 Mar, [facility] [id number] [place] [address] [id number] Mar, Dental examination V72.2 [facility] [id number] [place] [address] 077299- 6591 Feb, Unspecified arthropathy, site 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.90 ; Psychotic disorder 298.9 and Seborrhea 706.3 [facility] [id number] [place] [address] [id number]- 8916 Jan, [facility] [id number] [place] [address] [id number] [id number] Dec, Dizziness 780.4 and Pain in soft tissues of limb 729.5 [facility] [id number] [place] [address] 96603- 9868 Dec, [facility] [id number] [place] [address] [id number] Oct, [facility] [id number] [place] [address] [id number] Oct, [facility] [id number] [place] [address] 28143- 1150 19 Sep, 2014 [facility] [place] [facility] [address] [id number] [place] [address]- 4878 19 Sep, 2014 [facility] [place] [facility] [address] [id number] [place] [address]- 6656 11 Sep, 2014 [facility] [place] [facility] [address] [id number] [place] [address]- 2465 11 Sep, 2014 [facility] [place] [facility] [address] [id number] [place] [address]- 6383 13 Aug, 2014 [facility] [place] [facility] [address] [id number] [place] [address]- 2053 13 Aug, 2014 [facility] [place] [facility] [address] [id number] [place] [address]- 5494 17 May, 2014 [facility] [place] [facility] [address] [id number] [place] [address]- 9593 17 May, 2014 [facility] [place] [facility] [address] [id number] [place] [address]- 7250 17 May, 2014 [facility] [place] [facility] [address] [id number] [place] [address]- 6062 17 May, 2014 [facility] [place] [facility] [address] [facility] [id number] [place] [address]- 4899 17 May, 2014 [facility] [place] [facility] [address] [id number] [place] [address]- 8574 17 May, 2014 [facility] [place] [facility] [address] [id number] [place] [address]- 4558 17 May, 2014 [facility] [place] [facility] [address] [id number] [place] [address]- 6843 14 May, 2014 [facility] [place] [facility] [address] [id number] [place] [address]- 2688 14 May, 2014 [facility] [place] [facility] [address] [id number] [place] [address]- 4788 07 May, 2014 [facility] [place] [facility] [address] [id number] [place] [address]- 0776 May, [facility] [place] [facility] [address] [id number] [place] [address]- 3034 Apr, [facility] [place] [facility] [address] [id number] [place] [address]- 8906 Apr, [facility] [place] [facility] [address] [id number] [place] [address]- 3981 Feb, [facility] [place] [facility] [address] [id number] [place] [address]- 6678 Feb, [facility] [place] [facility] [address] [id number] [place] [address]- 2133 Feb, [facility] [place] [facility] [address] [id number] [place] [address]- 1365 Feb, [facility] [place] [facility] [address] [id number] [place] [address]- 0874 Jan, [facility] [place] [facility] [address] [id number] [place] [address]- 0032 Jan, [facility] [place] [facility] [address] [id number] [place] [address]- 3876 Jan, [facility] [place] [facility] [address] [id number] [place] [address]- 6148 Jan, [facility] [place] [facility] [address] [id number] [place] [address]- 8050 Dec, [facility] [place] [facility] [address] [id number] [place] [address]- 9455 Dec, [facility] [place] [facility] [address] [id number] [place] [address]- 1924 Dec, [facility] [place] [facility] [address] [id number] [place] [address]- 5717 Dec, [facility] [place] [facility] [address] [id number] [place] [address]- 5890 Oct, [facility] [place] [facility] [address] [id number] [place] [address]- 2127 28 Oct, 2013 [facility] [place] [facility] [address] [id number] [place] [address]- 6633 Oct, [facility] [place] [facility] [address] [id number] [place] [address]- 9741 Oct, [facility] [place] [facility] [address] [id number] [place] [address]- 5512 Oct, [facility] [place] [facility] [address] [id number] [place] [address]- 2747 Oct, [facility] [place] [facility] [address] [id number] [place] [address]- 9337 Oct, [facility] [place] [facility] [address] [id number] [place] [address]- 2797 15 Jul, 2013 [facility] [place] [facility] [address] [id number] [place] [address]- 5795 Jul, [facility] [place] [facility] [address] [id number] [place] [address]- 5843 Jun, [facility] [place] [facility] [address] [id number] [place] [address]- 4443 Jun, [facility] [place] [facility] [address] [id number] [place] [address]- 2243 Jun, [facility] [place] [facility] [address] [id number] [place] [address]- 5723 Jun, [facility] [place] [facility] [address] [id number] [place] [address]- 3380 May, [facility] [place] [facility] [address] [id number] [place] [address]- 9454 May, [facility] [place] [facility] [address] [id number] [place] [address]- 0817 May, [facility] [place] [facility] [address] [id number] [place] [address]- 8056 May, [facility] [address] [id number] [place] [address]- 5308 Apr, [facility] [place] [facility] [address] [id number] [place] [address]- 4816 Apr, [facility] [address] [id number] [place] [address]- 0645 Apr, [facility] [place] [facility] [address] [id number] [place] [address]- 8827 Apr, [facility] [address] [id number] [place] [address]- 1808 Apr, [facility] [place] [facility] [address] [id number] [place] [address]- 5845 Mar, [facility] [place] [facility] [address] [id number] [place] [address]- 0812 Mar, [facility] [place] [facility] [address] [id number] [place] [address]- 0336 Mar, [facility] [place] [facility] [address] [id number] [place] [address]- 0903 Mar, [facility] [place] [facility] [address] [id number] [place] [address]- 8799 Feb, [facility] [place] [facility] [address] [id number] [place] [address]- 3923 Jan, [facility] [place] [facility] [address] [id number] [place] [address]- 9607 Jan, [facility] [place] [facility] [address] [id number] [place] [address]- 2536 Jan, [facility] [place] [facility] [address] [id number] [place] [address]- 8875 Jan, [facility] [place] [facility] [address] [id number] [place] [address]- 0087 Jan, [facility] [place] [facility] [address] [id number] [place] [address]- 2188 Jan, [facility] [place] [facility] [address] [id number] [place] [address]- 2712 Jan, [facility] [place] [facility] [address] [id number] [place] [address]- 4571 November, [facility] [place] [facility] [address] [id number] [place] [address]- 9089 Sep, [facility] [place] [facility] [address] [id number] [place] [address]- 7600 Sep, [facility] [place] [facility] [address] [id number] [place] [address]- 3828 Aug, [facility] [place] [facility] [address] [id number] [place] [address]- 8494 Aug, [facility] [place] [facility] [address] [id number] [place] [address]- 3789 Jul, [facility] [place] [facility] [address] [id number] [place] [address]- 0614 Jul, [facility] [place] [facility] [address] [id number], [place] [address]- 6034 Jul, [facility] [place] [facility] [address] [id number], [place] [address]- 7594 May, [facility] [place] [facility] [address] [id number], [place] [address]- 2500 Apr, [facility] [place] [facility] [address] [id number] [place] [address]- 3523 Apr, [facility] [place] [facility] [address] [id number] [place] [address]- 0666 Apr, [facility] [place] [facility] [address] [id number] [place] [address]- 6039 Apr, [facility] [place] [facility] [address] [id number], [place] [address]- 9719 17 Apr, 2012 [facility] [address] [id number] [place] [address]- 8670 Mar, [facility] [place] [facility] [address] [id number] [place] [address]- 5914 Feb, [facility] [address] [facility] [id number] [place] [address]- 1737 Feb, [facility] [place] [facility] [address] [id number] [place] [address]- 8287 Jan, [facility] [address] [id number] [place] [address]- 2914 Jan, [facility] [place] [facility] [address] [id number] [place] [address]- 9478 November, [facility] [address] [place] [address]- 2491 20 Oct, 2011 [facility] [place] [facility] [address] [id number] [place] [address]- 5968 19 Oct, 2011 [facility] [place] [facility] [address] [id number] [place] [address]- 7860 18 Oct, 2011 [facility] [place] [facility] [id number] [place] [address]- 2335 18 Oct, 2011 [facility] [place] [facility] [address] [id number] [place] [address]- 8166 16 Oct, 2011 [facility] [place] [facility] [address] [id number], [place] [address]- 3245 13 Oct, 2011 [facility] [place] [facility] [address] [id number] [place] [address]- 6729 12 Oct, 2011 [facility] [place] [facility] [address] [facility] [id number] [place] [address]- 6527 11 Oct, 2011 [facility] [place] [facility] [id number] [place] [address]- 9975 10 Oct, 2011 [facility] [place] [facility] [address] [id number] [place] [address]- 8020 10 Oct, 2011 [facility] [place] [facility] [address] [id number] [place] [address]- 5491 Sep, [facility] [place] [facility] [address] [id number] [place] [address]- 5916 10 Aug, 2011 [facility] [place] [facility] [address] [id number] [place] [address]- 8991 Jun, [facility] [place] [facility] [address] [id number] [place] [address]- 8596 Jun, [facility] [place] [facility] [address] [id number] [place] [address]- 3459 Jun, [facility] [place] [facility] [address] [id number] [place] [address]- 4134 Jun, [facility] [place] [facility] [address] [id number] [place] [address]- 7513 Jun, [facility] [place] [facility] [address] [id number] [place] [address]- 8748 May, [facility] [place] [facility] [address] [id number] [place] [address]- 6605 Apr, [facility] [place] [facility] [address] [id number] [place] [address]- 3129 Apr, [facility] [place] [facility] [address] [id number] [place] [address]- 8900 15 Oct, 2010 [facility] [place] [facility] [address] [id number] [place] [address]- 3126 Jun, [facility] [place] [facility] [address] [id number] [place] [address]- 3606 Jun, [facility] [place] [facility] [address] [id number] [place] [address]- 4086 Jun, [facility] [place] [facility] [address] [id number] [place] [address]- 4845 Jun, [facility] [id number] [address]- 8906 May, [facility] [address], [place] [address]- 2546 May, [facility] [address] [address]- 2546 May, [facility] [address], [place] [address]- 2548 Apr, [facility] [address], [place] [address]- 2744 Apr, [facility] [address] [address]- 7126 Apr, [facility] [address], [place] [address]- 2926 Oct, [facility] [address] [address]- 0626 Jul, [facility] [id number], [place] [address]- 2388 Apr, [facility] [address] [id number] [address]- 0838 Mar, IMMUNIZATIONS No Known Immunizations SOCIAL HISTORY Never Assessed REASON FOR VISIT E[place] [place] CARE VITAL SIGNS MEDICATIONS No [...]
--- OUTSIDE RECORDS SUMMARY | 2018-11-09 11:07 | XMS REPORT ---
Author Author Migration, Doctor Organization [facility] Address Unknown Phone Unavailable Care Team Providers Care Development Analyst Name Role Phone Migration, Doctor Unavailable Unavailable PROBLEMS Type Condition ICD9-CM Code [id number] Code Onset Dates Condition Status SNOMED Code Problem Loss of weight 783.21 Active 404699284 Problem Other malaise and fatigue 780.79 Active 410053259 Problem Pain in soft tissues of limb 729.5 Active 14325087 Problem Other specified cardiac dysrhythmias 427.89 Active 061463668 Problem Other and unspecified hyperlipidemia 272.4 Active 84641803 Problem Muscle weakness (generalized) 728.87 Active 66535289 Problem Cervicalgia 723.1 Active 75002307 Problem Unspecified arthropathy, site 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.90 Active 136687062 Problem Unspecified symptom associated with female genital organs 625.9 Active [id number] ALLERGIES No Information ENCOUNTERS Encounter Location Date Diagnosis [facility] [address] [id number] Sep, Dental caries K02.9 [facility] [address] [id number] Sep, [facility] [address] [id number] Sep, Dental examination Z01.20 [facility] [address] [id number] May, Dental examination Z01.20 [facility] [id number] [place] [address] [id number] Apr, Dental examination Z01.20 [facility] [id number] [place] [address]304- 6101 Dec, [facility] [address] [id number] Feb, Dental examination Z01.20 [facility] [address] [id number] Jan, Dental caries K02.9 [facility] [id number] [place] [address] [id number] Dec, Dental examination Z01.20 [facility] [id number] [place] [address] [id number] Oct, Dental examination Z01.20 [facility] [id number] [place] [address] [id number] Aug, Encounter for dental examination Z01.20 [facility] [address] [address]- [address] Aug, [facility] [id number] [place] [address] 73099- 4776 Mar, [facility] [id number] [place] [address] [id number] Mar, Dental examination V72.2 [facility] [id number] [place] [address] 005524- 1492 Feb, Unspecified arthropathy, site 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.90 ; Psychotic disorder 298.9 and Seborrhea 706.3 [facility] [id number] [place] [address] 530441- 2566 Jan, [facility] [id number] [place] [address] [id number] 4763 Dec, Dizziness 780.4 and Pain in soft tissues of limb 729.5 [facility] [id number] [place] [address] 82942- 7335 Dec, [facility] [id number] [place] [address] [id number] Oct, [facility] [id number] [place] [address] [id number] [phone] Oct, [facility] [id number] [place] [address] 20700- 6429 19 Sep, 2014 [facility] [place] [facility] [address] [id number] [place] [address]- 2103 19 Sep, 2014 [facility] [place] [facility] [address] [id number] [place] [address]- 0928 11 Sep, 2014 [facility] [place] [facility] [address] [id number] [place] [address]- 8016 11 Sep, 2014 [facility] [place] [facility] [address] [id number] [place] [address]- 4984 13 Aug, 2014 [facility] [place] [facility] [address] [id number] [place] [address]- 8219 13 Aug, 2014 [facility] [place] [facility] [address] [id number] [place] [address]- 2306 17 May, 2014 [facility] [place] [facility] [address] [id number] [place] [address]- 2047 17 May, 2014 [facility] [place] [facility] [address] [id number] [place] [address]- 2399 17 May, 2014 [facility] [place] [facility] [address] [id number] [place] [address]- 8012 17 May, 2014 [facility] [place] [facility] [address] [facility] [id number] [place] [address]- 9298 17 May, 2014 [facility] [place] [facility] [address] [id number] [place] [address]- 8990 17 May, 2014 [facility] [place] [facility] [address] [id number] [place] [address]- 3348 17 May, 2014 [facility] [place] [facility] [address] [id number] [place] [address]- 7232 14 May, 2014 [facility] [place] [facility] [address] [id number] [place] [address]- 3672 14 May, 2014 [facility] [place] [facility] [address] [id number] [place] [address]- 8005 07 May, 2014 [facility] [place] [facility] [address] [id number] [place] [address]- 1202 May, [facility] [place] [facility] [address] [id number] [place] [address]- 5986 Apr, [facility] [place] [facility] [address] [id number] [place] [address]- 1466 Apr, [facility] [place] [facility] [address] [id number] [place] [address]- 8467 Feb, [facility] [place] [facility] [address] [id number] [place] [address]- 4153 Feb, [facility] [place] [facility] [address] [id number] [place] [address]- 4723 Feb, [facility] [place] [facility] [address] [id number] [place] [address]- 4143 Feb, [facility] [place] [facility] [address] [id number] [place] [address]- 7264 Jan, [facility] [place] [facility] [address] [id number] [place] [address]- 9499 Jan, [facility] [place] [facility] [address] [id number] [place] [address]- 9934 Jan, [facility] [place] [facility] [address] [id number] [place] [address]- 6335 Jan, [facility] [place] [facility] [address] [id number] [place] [address]- 2717 Dec, [facility] [place] [facility] [address] [id number] [place] [address]- 2959 Dec, [facility] [place] [facility] [address] [id number] [place] [address]- 1146 Dec, [facility] [place] [facility] [address] [id number] [place] [address]- 5667 Dec, [facility] [place] [facility] [address] [id number] [place] [address]- 1657 Oct, [facility] [place] [facility] [address] [id number] [place] [address]- 5350 28 Oct, 2013 [facility] [place] [facility] [address] [id number] [place] [address]- 0794 Oct, [facility] [place] [facility] [address] [id number] [place] [address]- 5881 Oct, [facility] [place] [facility] [address] [id number] [place] [address]- 5785 Oct, [facility] [place] [facility] [address] [id number] [place] [address]- 0447 Oct, [facility] [place] [facility] [address] [id number] [place] [address]- 3328 Oct, [facility] [place] [facility] [address] [id number] [place] [address]- 8240 15 Jul, 2013 [facility] [place] [facility] [address] [id number] [place] [address]- 1244 Jul, [facility] [place] [facility] [address] [id number] [place] [address]- 3432 Jun, [facility] [place] [facility] [address] [id number] [place] [address]- 2152 Jun, [facility] [place] [facility] [address] [id number] [place] [address]- 2407 Jun, [facility] [place] [facility] [address] [id number] [place] [address]- 3829 Jun, [facility] [place] [facility] [address] [id number] [place] [address]- 6576 May, [facility] [place] [facility] [address] [id number] [place] [address]- 3310 May, [facility] [place] [facility] [address] [id number] [place] [address]- 4152 May, [facility] [place] [facility] [address] [id number] [place] [address]- 6983 May, [facility] [address] [id number] [place] [address]- 8460 Apr, [facility] [place] [facility] [address] [id number] [place] [address]- 5786 Apr, [facility] [address] [id number] [place] [address]- 0323 Apr, [facility] [place] [facility] [address] [id number] [place] [address]- 0571 Apr, [facility] [address] [id number] [place] [address]- 1025 Apr, [facility] [place] [facility] [address] [id number] [place] [address]- 7922 Mar, [facility] [place] [facility] [address] [id number] [place] [address]- 5162 Mar, [facility] [place] [facility] [address] [id number] [place] [address]- 5348 Mar, [facility] [place] [facility] [address] [id number] [place] [address]- 9369 Mar, [facility] [place] [facility] [address] [id number] [place] [address]- 2959 Feb, [facility] [place] [facility] [address] [id number] [place] [address]- 5051 Jan, [facility] [place] [facility] [address] [id number] [place] [address]- 7675 Jan, [facility] [place] [facility] [address] [id number] [place] [address]- 5544 Jan, [facility] [place] [facility] [address] [id number] [place] [address]- 7509 Jan, [facility] [place] [facility] [address] [id number] [place] [address]- 1172 Jan, [facility] [place] [facility] [address] [id number] [place] [address]- 1732 Jan, [facility] [place] [facility] [address] [id number] [place] [address]- 7165 Jan, [facility] [place] [facility] [address] [id number] [place] [address]- 3386 November, [facility] [place] [facility] [address] [id number] [place] [address]- 0190 Sep, [facility] [place] [facility] [address] [id number] [place] [address]- 2439 Sep, [facility] [place] [facility] [address] [id number] [place] [address]- 4859 Aug, [facility] [place] [facility] [address] [id number] [place] [address]- 9813 Aug, [facility] [place] [facility] [address] [id number] [place] [address]- 1606 Jul, [facility] [place] [facility] [address] [id number] [place] [address]- 2909 Jul, [facility] [place] [facility] [address] [id number] [address]- 0500 Jul, [facility] [place] [facility] [address] [id number], [place] [address]- 1758 May, [facility] [place] [facility] [address] [id number] [address]- 0818 Apr, [facility] [place] [facility] [address] [id number] [place] [address]- 8166 Apr, [facility] [place] [facility] [address] [id number] [place] [address]- 3896 Apr, [facility] [place] [facility] [address] [id number] [place] [address]- 4496 Apr, [facility] [place] [facility] [address] [id number], [place] [address]- 5107 17 Apr, 2012 [facility] [address] [id number] [place] [address]- 9140 Mar, [facility] [place] [facility] [address] [id number] [place] [address]- 6575 Feb, [facility] [address] [facility] [id number] [place] [address]- 6463 Feb, [facility] [place] [facility] [address] [id number] [place] [address]- 4767 Jan, [facility] [address] [id number] [place] [address]- 5116 Jan, [facility] [place] [facility] [address] [id number] [place] [address]- 1362 November, [facility] [address] [place] [address]- 2874 20 Oct, 2011 [facility] [place] [facility] [address] [id number] [place] [address]- 8892 19 Oct, 2011 [facility] [place] [facility] [address] [id number] [place] [address]- 3877 18 Oct, 2011 [facility] [place] [facility] [id number] [place] [address]- 3974 18 Oct, 2011 [facility] [place] [facility] [address] [id number] [place] [address]- 7136 16 Oct, 2011 [facility] [place] [facility] [address] [id number], [place] [address]- 7354 13 Oct, 2011 [facility] [place] [facility] [address] [id number] [place] [address]- 0779 12 Oct, 2011 [facility] [place] [facility] [address] [facility] [id number] [place] [address]- 7690 11 Oct, 2011 [facility] [place] [facility] [id number] [place] [address]- 0513 10 Oct, 2011 [facility] [place] [facility] [address] [id number] [place] [address]- 1646 10 Oct, 2011 [facility] [place] [facility] [address] [id number] [place] [address]- 9167 Sep, [facility] [place] [facility] [address] [id number] [place] [address]- 1346 10 Aug, 2011 [facility] [place] [facility] [address] [id number] [place] [address]- 4316 Jun, [facility] [place] [facility] [address] [id number] [place] [address]- 9285 Jun, [facility] [place] [facility] [address] [id number] [place] [address]- 6814 Jun, [facility] [place] [facility] [address] [id number] [place] [address]- 1410 Jun, [facility] [place] [facility] [address] [id number] [place] [address]- 2345 Jun, [facility] [place] [facility] [address] [id number] [place] [address]- 2634 May, [facility] [place] [facility] [address] [id number] [place] [address]- 3382 Apr, [facility] [place] [facility] [address] [id number] [place] [address]- 1013 Apr, [facility] [place] [facility] [address] [id number] [place] [address]- 9639 15 Oct, 2010 [facility] [place] [facility] [address] [id number] [place] [address]- 4124 Jun, [facility] [place] [facility] [address] [id number] [place] [address]- 2356 Jun, [facility] [place] [facility] [address] [id number] [place] [address]- 6576 Jun, [facility] [place] [facility] [address] [id number] [place] [address]- 8231 Jun, [facility] [id number] [address]- 3476 May, [facility] [address] [address]- 2546 May, [facility] [address] [address]- 2546 May, [facility] [address] [address]- 2541 Apr, [facility] [address] [address]- 9325 Apr, [facility] [address] [address]- 8876 Apr, [facility] [address] [address]- 2246 Oct, [facility] [address] [address]- 8426 Jul, [facility] [id number] [address]- 6071 Apr, [facility] [id number] [address]- 9463 Mar, IMMUNIZATIONS No Known Immunizations SOCIAL HISTORY Never Assessed REASON FOR VISIT EMR-[facility] [place] PLAN OF CARE VITAL [...]
[2018-11-09 12:05] VITALS: BP 122/59
--- NOTE | 2018-11-09 12:19 | Progress Note-Post Operative ---
Post-Operative Progess Note Surgeon (s)/Customer Care Coordinator (s) Surgeon GIAN BROWN MD Customer Care Coordinator: none Pre-Operative Diagnosis wt loss, abd pain Post-Operative Diagnosis reflux esophagitis(stage 2), small-mod HH(2cm), mild gastritis, no distal obstruction. chronic stage 2 ext and int hemorrhoids. Procedure & Operative Findings Date of Procedure 11/09/18 Procedure Performed/Findings EGD with bx. Colonoscopy. Anesthesia Type cs Estimated Blood Loss Estimated blood loss (mL): minimal Specimens/Packing Specimens Removed ge jxn, antrum GIAN BROWN MD November 09, 2018 12:18
[2018-11-09 12:35] VITALS: BP 99/72
[2018-11-09 13:00] VITALS: BP 99/72
--- NOTE | 2018-11-09 19:17 | OPERATIVE REPORT ---
DATE OF SERVICE: 11/09/2018 ATTENDING PRIMARY CARE PHYSICIAN: Dr. Farr. PREOPERATIVE DIAGNOSES: Weight loss, abdominal pain. POSTOPERATIVE DIAGNOSES: Reflux esophagitis stage II, hiatal hernia approximately 2 cm in size, mild gastritis, no distal obstructions. Chronic stage II external and internal hemorrhoids. Remainder of the rectum and colon were normal. PROCEDURE: EGD with biopsy, colonoscopy. SURGEON: Gian Brown MD ANESTHESIA: Conscious sedation. ESTIMATED BLOOD LOSS: Minimal. FINDINGS: As above in the postoperative diagnosis. DISPOSITION: The patient tolerated the procedure well. INDICATIONS: The patient is a 68-year-old female who is referred over to us for nausea, upper quadrant abdominal pain as well as weight loss. She is a resident of [facility] and does have a history of dementia, schizophrenia, major depressive disorder as well as Alzheimer disease. She also does have a significant history of smoking. She reports in the past several months she has had decreased appetite. She does have a history of gastroesophageal reflux disease and currently on Protonix. She does not report any red blood per rectum nor any dark tarry stools. She also does not have any episodes of nausea, vomiting as well as no hematemesis, no coffee-ground emesis. DESCRIPTION OF PROCEDURE: The patient was brought to the endoscopy suite, laid in left lateral decubitus position. After adequate IV pain and sedative medications and conscious sedation anesthesia, the mouthpiece was applied. The endoscope was placed in the mouth visualizing the pharynx and hypopharyngeal region. Vocal cords, epiglottis and vallecula identified and appeared to be normal. The endoscope was then gently intubated at the esophageal opening and esophagus insufflated. The endoscope was then advanced to the first, second and third portion of the esophagus at the level of the GE junction, a reflux esophagitis stage II identified. There were no ulcers or strictures identified in this region. A biopsy was taken using forceps with visualization of good hemostasis. The endoscope was then advanced in the stomach and the endoscope retroflexed visualizing a small to moderate size hiatal hernia approximately 2 cm in size. There were also clinical signs of reflux with insufflated air refluxing up the mouth. There was mild gastritis noted, no formal ulcerations, polyps or any neoplasms. A biopsy was taken of the antrum to rule out H. pylori with visualization of good hemostasis. The endoscope was then advanced to the pylorus and the first and second portion of the duodenum, which appeared normal and no distal obstructions. The endoscope was then slowly withdrawn while taking a second look and suctioning of residual air with no additional findings. The patient tolerated this portion of the procedure well. We feel that the appetite loss as well as weight loss may be more related to her multitude of different medical problems as well as smoking causing age-related anorexia and weight loss. There were no distal obstructions or ulcerations identified and we will recommend continuation of Protonix for now. She also does have a hiatal hernia identified; however, we would recommend medical management with the necessary lifestyle and diet accommodation including smoking cessation as well as avoidance of caffeinated beverages, spicy, greasy and acidic foods. Under the same conscious sedation anesthesia, we then proceeded with colonoscopy portion of the procedure. Digital rectal examination was performed, which revealed chronic stage II external and internal hemorrhoids, not actively edematous nor inflamed and no bleeding. Normal sphincter tone was felt and there were no palpable masses. The endoscope was then intubated to the anus and rectum gently insufflated. The endoscope was then advanced to the valves of Singer in the rectum with no polyps or any neoplasms identified. We then proceeded through the sigmoid colon where no diverticulosis was identified. The endoscope was then advanced through the remainder of the descending, transverse and ascending colon to the cecum. These segments were normal. There were no polyps or any neoplasms identified throughout the colon or rectum. The endoscope was then slowly withdrawn while taking a second look and suctioning of residual air with no additional findings. The patient tolerated the procedure well. We will recommend a high-fiber diet with at least 25 grams of fiber per day as well as significant amounts of water to promote soft stools on a daily basis; however, there were no major lesions identified within the colon or rectum. Job ID: [id number] DocumentID: [id number] Dictated Date: 11/09/2018 11:56:53 Teacher Visually Impaired Date: 11/09/2018 19:16:03 Dictated By: GIAN BROWN MD
== END 2018-11-09 13:00 | disposition home or self-care (01) ==
LOC: ENDO 09:17
PROVIDERS: ATTEND Surgery
DX: K21.0 Gastro-esophageal reflux disease with esophagitis (principal); K44.9 Diaphragmatic hernia without obstruction or gangrene; K29.50 Unspecified chronic gastritis without bleeding; K64.1 Second degree hemorrhoids; F20.9 Schizophrenia, unspecified; G30.9 Alzheimer's disease, unspecified; F02.80 Dementia in other diseases classified elsewhere, unspecified severity, without behavioral disturbance, psychotic disturbance, mood disturbance, and anxiety; F32.9 Major depressive disorder, single episode, unspecified; F17.210 Nicotine dependence, cigarettes, uncomplicated; E78.5 Hyperlipidemia, unspecified; F41.9 Anxiety disorder, unspecified; G47.00 Insomnia, unspecified; G40.909 Epilepsy, unspecified, not intractable, without status epilepticus; I10 Essential (primary) hypertension; K59.00 Constipation, unspecified; M19.91 Primary osteoarthritis, unspecified site; L40.9 Psoriasis, unspecified; Z88.0 Allergy status to penicillin; Z91.040 Latex allergy status; Z87.820 Personal history of traumatic brain injury; Z87.440 Personal history of urinary (tract) infections; Z79.82 Long term (current) use of aspirin; Z79.899 Other long term (current) drug therapy; Z80.0 Family history of malignant neoplasm of digestive organs; Z80.8 Family history of malignant neoplasm of other organs or systems

== ENCOUNTER 2018-11-17 08:29 | Emergency (ER) | payer MEDICARE, BC, MEDICAID ==
[~2018-11-17] VITALS: Ht 162.6 cm; Wt 75.3 kg
--- NOTE | 2018-11-17 08:54 | NUR ---
SEE LIST FOR CURRENT MEDS
--- NOTE | 2018-11-17 09:44 | Diagnostic Imaging Report ---
INDICATION: Fall and left hip pain. TIME OF EXAM: 09:14 a.m. An AP view of pelvis and two views of left hip were obtained. Femoral acetabular alignment is normal. Femoral head and neck are intact. Rami are intact. SI joints and symphysis are unremarkable. No fractures are seen. IMPRESSION: No acute bony abnormality is detected. Dictated by: Dictated on workstation # [id number]
--- OUTSIDE RECORDS SUMMARY | 2018-11-17 10:26 | XMS REPORT | Clinical Summary ---
Author Author [facility] Organization [facility] Address Unknown Phone Unavailable Care Team Providers Care Church Musician Name Role Phone Addy Farr MD PCP [...]
--- OUTSIDE RECORDS SUMMARY | 2018-11-17 10:26 | XMS REPORT | Clinical Summary ---
Author Author [facility] Organization [facility] Address Unknown Phone Unavailable Care Team Providers Care Teenage Program Director Name Role Phone Andres Jo MD [address]apati MD Unavailable Lex Dunne MD, [facility] Unavailable Heavenly Artis MD Unavailable Lori [...] in the Health Information Management department at [phone] for further assistance in locating additional records.[facility] Allergies Comments Active Allergy Reactions Severity Noted [...] Taken Vital Sign Reading 05/19/2016 8:00 AM AQUATIC HABITAT BIOLOGIST Blood Pressure 135/52 05/18/2016 4:43 PM AQUATIC HABITAT BIOLOGIST Pulse 56 05/19/2016 8:00 AM AQUATIC HABITAT BIOLOGIST Temperature 36.4 C (97.6 F) - Respiratory Rate - 05/19/2016 8:00 AM AQUATIC HABITAT BIOLOGIST Oxygen Saturation 97% - Inhaled Oxygen - Concentration 05/18/2016 4:43 PM AQUATIC HABITAT BIOLOGIST Weight 95.3 kg (210 lb) 05/18/2016 4:43 PM AQUATIC HABITAT BIOLOGIST Height 162.6 cm (5' 4") 05/18/2016 4:43 PM AQUATIC HABITAT BIOLOGIST Body Mass Index 36.05 Plan of Treatment [...] PART A AND resent B PPO BCBS FRDEDIE BCBS FREDDIE xxxxxxxxx 2010-P FED EMP resent PROGRAM Medicaid [facility] MEDICAID [facility] xxxxxxxxxxx 2016- [facility] Present PLAN [place] Advance Directives Patient has advance care planning documents, and code status on file. For more information, please contact: [facility] [address] [place] [address] Date Inactivated Comments Code Status Date Activated 05/19/2016 2:21 PM Full Code 05/19/2016 3:40 AM Provider has discussed Code Status No, more discussion w/Patient or Family? needed
--- NOTE | 2018-11-17 10:32 | NUR ---
[facility] NOTIFIED OF PT DISCHARGE
--- NOTE | 2018-11-17 10:54 | ED Hip Pain/Injury ---
General Chief Complaint: Hip/Pelvic Problems Stated Complaint: FALL/LEFT HIP PAIN Nursing Triage Note: PT ARRIVED FROM EMS PT CO OF L HIP PAIN FROM FALL TO BUTTOCKS CO OF L HIP PAIN, PT HAS JEREMY WRAP ON L HIP ANKLE FROM FALL AT DR SALGADO OFFICE LAST WEEK. NO LOC, RATES PAIN 5/10. PT HAS SL IN R AC BY EMS #20 Source: patient Exam Limitations: no limitations History of Present Illness Date Seen by Provider: November 17, 2018 Time Seen by Provider: 10:50 Initial Comments The patient is a 68-year-old white female resident of a local assisted living facility. She apparently has had difficulty with balance and falling over the last 2 months. She had seen her provider Dr. Ling last week for an ankle injury. She continues to have some pain and swelling and the ankle has a nicely applied Jeremy wrap. This morning while walking with her walker she apparently fell over backwards striking her buttocks and left hip. After she complained of left hip pain she was sent here by ambulance. She seems indefinite about time and circumstance and is not really able to add much to questioning about balance and falling. Timing/Duration: just prior to arrival, this morning Severity: mild, moderate Location: hip (L), pelvis Method of Injury: fell Allergies and Home Medications Allergies Coded Allergies: Penicillins (Verified Allergy, Mild, 07/22/13) latex (Verified Allergy, Mild, 07/22/13) Home Medications Aspirin 81 Mg Tablet.dr, 81 MG PO DAILY, (Reported) Atorvastatin Calcium 80 Mg Tablet, 80 MG PO DAILY, (Reported) Divalproex Sodium 250 Mg Tablet.dr, 250 MG PO DAILY, (Reported) Divalproex Sodium 500 Mg Tablet.dr, 500 MG PO DAILY, (Reported) Duloxetine HCl 60 Mg Capsule.dr, 60 MG PO DAILY, (Reported) Fluconazole 200 Mg Tablet, 200 MG PO Q48H, (Reported) TAKE ON ODD DAYS RELATED TO BACTERIAL INFECTION Furosemide 40 Mg Tablet, 40 MG PO DAILY, (Reported) Hydrocodone Bit/Acetaminophen 1 Each Tablet, 1 TAB PO Q4H PRN for MODERATE PAIN Prescribed by: DADA SANDOVAL on 10/02/16 1120 Lactulose 10 Gm/15 Ml Solution, 20 GM PO DAILY PRN for CONSTIPATION-1ST LINE, ( Reported) Levetiracetam 1,000 Mg Tablet, 1,000 MG PO BID, (Reported) Melatonin 3 Mg Tablet, 3 MG PO HS, (Reported) Meloxicam 15 Mg Tablet, 15 MG PO DAILY, (Reported) Oxybutynin Chloride 15 Mg Tab.er.24, 15 MG PO HS, (Reported) Pantoprazole Sodium 40 Mg Tablet.dr, 40 MG PO DAILY, (Reported) Polyethylene Glycol 3350 17 Gm Powd.pack, 17 GM PO DAILY PRN for CONSTIPATION- 2ND LINE, (Reported) Potassium Chloride 10 Meq Tab.er.prt, 10 MEQ PO DAILY, (Reported) Prednisolone Acetate 5 Ml Drops.susp, 1 DROP OU Q48H, (Reported) Prednisone 10 Mg Tab, 10 MG PO DAILY, (Reported) Quetiapine Fumarate 50 Mg Tablet, 50 MG PO HS, (Reported) Spironolactone 100 Mg Tablet, 100 MG PO DAILY, (Reported) Topiramate 25 Mg Tablet, 25 MG PO BID, (Reported) Patient Home Medication List Home Medication List Reviewed: Yes Review of Systems Constitutional: see HPI EENTM: no symptoms reported Respiratory: no symptoms reported Cardiovascular: no symptoms reported Gastrointestinal: no symptoms reported Genitourinary: no symptoms reported Musculoskeletal: see HPI Skin: no symptoms reported Psychiatric/Neurological: No Symptoms Reported Past Efcpwid-Ueirtw-Iwqvux Hx Past Med/Social Hx: Reviewed Nursing Past Med/Soc Hx Patient Social History Alcohol Use: Denies Use Recreational Drug Use: No Smoking Status: Never a Smoker Type Used: Cigarettes Former Smoker, Quit: Jul 05, 2013 2nd Hand Smoke Exposure: Yes Recent Foreign Travel: No Contact w/Someone Who Travel: No Recent Infectious Disease Expo: No Recent Hopitalizations: No Immunizations Up To Date Tetanus Booster (TDap): Unknown Date of Influenza Vaccine: Apr 11, 2018 Seasonal Allergies Seasonal Allergies: No Past Medical History Surgeries: Yes Gallbladder, Lumpectomy Respiratory: Yes (BRONCHITIS) Chronic Bronchitis Currently Using CPAP: No Cardiac: Yes Chronic Edema/Swelling, Coronary Artery Disease, High Cholesterol, Hypertension , Rheumatic Fever Neurological: Yes (ENCEPHALITIS, restless leg syndrome) Concussion, Dementia, Seizure Disorder, Traumatic Brain Injury, Vertigo Reproductive Disorders: No Female Reproductive Disorders: Denies Sexually Transmitted Disease: No HIV/AIDS: No Genitourinary: Yes (CHRONIC RENAL INSUFFICIENCY; BLADDER CONTROL ISSUES?) Gastrointestinal: Yes ("STOMACH DISCOMFORT"--POST-CHOLECYSTECTOMY SYNDROME) Gastroesophageal Reflux, Chronic Constipation, Chronic Diarrhea, Gall Bladder Disease, Irritable Bowel Musculoskeletal: Yes Arthritis Endocrine: No HEENT: Yes (READING GLASSES) Loss of Vision: Bilateral Hearing Impairment: Denies Cancer: No Psychosocial: Yes Sleep Difficulties, Bipolar Integumentary: Yes Psoriasis Blood Disorders: No Adverse Reaction/Blood Tranf: No Family Medical History Cancer 03 FATHER (PANCREATIC CANCER) 09 BROTHER ( AT AGE 10) Family history: Cardiovascular disease 03 MOTHER Family history: Diabetes mellitus 03 MOTHER Heart disease 03 MOTHER No Pertinent Family Hx Physical Exam Vital Signs Vital Signs - First Documented 11/17/18 08:30 Temp 98.1 Pulse 67 Resp 18 B/P (MAP) 116/53 (74) Pulse Ox 94 Capillary Refill : Less Than 3 Seconds Height, Weight, BMI Height: 5'4.00" Weight: 166lbs. 0.0oz. 75.742611wk; 28.9 BMI Method:Stated General Appearance: No Apparent Distress, WD/WN HEENT: Normal ENT Inspection Neck: Normal Inspection Cardiovascular: Regular Rate, Rhythm Respiratory: Chest Non Tender, Lungs Clear, Normal Breath Sounds, No Accessory Muscle Use, No Respiratory Distress, Accessory Muscle Use Gastrointestinal: Normal Bowel Sounds, No Organomegaly, No Pulsatile Mass, Non Tender, Soft Neurologic/Psychiatric: Alert The ankle wrap was not removed. There is palpable moderate swelling over the left lateral malleolus. There was no shortening of the legs nor was there external rotation. Progress/Results/Core Measures Results/Orders My Orders Orders - FAIZA BUTTERFIELD MD Pelvis With Left Hip 2-3 Views (11/17/18 08:44) Vital Signs/I&O 11/17/18 08:30 Temp 98.1 Pulse 67 Resp 18 B/P (MAP) 116/53 (74) Pulse Ox 94 Blood Pressure Mean: 74 Departure Impression Primary Impression: fall at nursing facility Disposition: 01 HOME, SELF-CARE Condition: Stable/Unchanged Departure-Patient Inst. Decision time for Depature: 10:56 Referrals: JOVON LING MD (PCP/Family) Primary Care Physician Patient Instructions: Contusion (DC) Add. Discharge Instructions: All discharge instructions reviewed with patient and/or family. Voiced understanding. Use walker whenever up and about. Remember to transfer her weight onto your hands to avoid falling backwards. See your provider as needed. FAIZA BUTTERFIELD MD November 17, 2018 10:54
[2018-11-17 11:11] VITALS: BP 116/53
== END 2018-11-17 11:07 | disposition home or self-care (01) ==
LOC: EDUNIT# 08:29 → ER 08:31
DX: M25.552 Pain in left hip (principal); I25.10 Atherosclerotic heart disease of native coronary artery without angina pectoris; E78.00 Pure hypercholesterolemia, unspecified; I12.9 Hypertensive chronic kidney disease with stage 1 through stage 4 chronic kidney disease, or unspecified chronic kidney disease; N18.9 Chronic kidney disease, unspecified; K21.9 Gastro-esophageal reflux disease without esophagitis; K58.9 Irritable bowel syndrome, unspecified; G25.81 Restless legs syndrome; F03.90 Unspecified dementia, unspecified severity, without behavioral disturbance, psychotic disturbance, mood disturbance, and anxiety; G40.909 Epilepsy, unspecified, not intractable, without status epilepticus; G04.90 Encephalitis and encephalomyelitis, unspecified; F31.9 Bipolar disorder, unspecified; Z87.19 Personal history of other diseases of the digestive system; Z90.49 Acquired absence of other specified parts of digestive tract; Z87.820 Personal history of traumatic brain injury; Z80.0 Family history of malignant neoplasm of digestive organs; Z82.49 Family history of ischemic heart disease and other diseases of the circulatory system; Z88.0 Allergy status to penicillin; Z91.040 Latex allergy status; Z79.82 Long term (current) use of aspirin; Z79.52 Long term (current) use of systemic steroids; Z87.891 Personal history of nicotine dependence; Z98.890 Other specified postprocedural states; Z87.09 Personal history of other diseases of the respiratory system; W01.198A Fall on same level from slipping, tripping and stumbling with subsequent striking against other object, initial encounter

== ENCOUNTER → 2019-03-16 | Outpatient (CLI) | payer MEDICARE, BC, MEDICAID ==
[~2019-03-16] MED LIST changes: +CYAN-41 PO; -CYAN10006 PO; -TRAZ-189 PO; +TRAZ-222 PO
--- NOTE | 2019-03-16 19:19 | Diagnostic Imaging Report ---
INDICATION: Six-month follow-up left breast nodules. Correlation is made with diagnostic mammogram earlier the same day as well as prior left breast ultrasound from 09/01/2018. FINDINGS: Sonographic interrogation of the upper and lower outer aspect of the left breast was performed. Vague hypoechoic nodule at the 2 o'clock location 2 cm from the nipple measures approximately 6 mm x 5 mm x 3 mm. This is similar to prior exam. Tiny hypoechogenicity at the 4 o'clock location in the left breast 2 cm from the nipple is less prominent at approximately 5 mm x 4 mm x 2 mm compared with 6 mm x 4 mm x 7 mm on prior. No new abnormality is seen. IMPRESSION: Stable to slight decrease in size of previously noted hypoechoic nodules at the 2 and 4 o'clock location of the left breast, 2 cm from the nipple when compared with prior imaging from 09/01/2018. This is reassuring for a benign etiology. Even so, follow-up left mammogram and left breast ultrasound in six months is recommended to show continued stability. ACR BI-RADS Category 3: Probably benign findings. Dictated by: Dictated on workstation # [id number]
--- NOTE | 2019-03-16 19:31 | Diagnostic Imaging Report ---
INDICATION: Six-month followup left breast nodules. COMPARISON: Correlation is made with prior mammograms from 08/25/2018 and 02/01/2017. The current study was also evaluated with a Computer Aided Detection (CAD) system. 3-D tomosynthesis was also performed and reviewed. FINDINGS: Previously noted nodular densities at the 2 o'clock and 4 o'clock location of the left breast appear less prominent on today's study. In particular, the 4 o'clock density is barely visible. The 2 o'clock density has decreased in prominence. No new mass is seen. No suspicious microcalcifications are identified. Left axilla is unremarkable. IMPRESSION: Overall decrease in prominence of previously described left breast nodular densities since mammogram dating back to August 2018. Even so, sonographic interrogation of these areas is recommended and will be performed today. ACR BI-RADS Category 0: Incomplete. (Needs additional imaging evaluation). Result letter will be mailed to the patient. Note: At least 10% of breast cancer is not imaged by mammography. Dictated by: Dictated on workstation # [id number]
== END ==
LOC: RAD 13:03
DX: N63.23 Unspecified lump in the left breast, lower outer quadrant (principal); N63.21 Unspecified lump in the left breast, upper outer quadrant
CPT/HCPCS: 76642

== ENCOUNTER 2019-11-10 08:46 | Emergency (ER) | payer MEDICAID, BC ==
[~2019-11-10] VITALS: Ht 167.7 cm; Wt 80.9 kg
[~2019-11-10 08:46] MED LIST changes: -CLON0.5T13 PO; +CLON0.5T4 PO; +LACT10SO27 PO; -LACT10SO5 PO; -LAMO150T2 PO; +LAMO150T4 PO; -LAMO200T2 PO; +LAMO200T5 PO; -MECL-106 PO; +MECL-149 PO; -MELA3TAB PO; +MELA3TAB39 PO; -MEMA5TAB16 PO; +MEMA5TAB43 PO; -OXYB15TA PO; +OXYB15TA19 PO; -TRAZ-222 PO; +TRZ50T PO
--- NOTE | 2019-11-10 08:58 | ED Fall/Injury ---
General Chief Complaint: Trauma-Non Activation Stated Complaint: FALL Source: patient Exam Limitations: no limitations History of Present Illness Date Seen by Provider: November 10, 2019 Time Seen by Provider: 08:49 Initial Comments Here with report of fall at the shelter that was unwitnessed. Apparently she was trying to get out of bed and fell over. She was found on the floor with her right side against the bed. Patient has baseline confusion but all he repor ts right shoulder pain. Does have multiple bruises that are reportedly old from previous falls including left side of her face and her right leg. No obvious areas of deformity or bleeding. No new abrasions noted or reported. Here by EMS. Patient does have history of seizures that are noted to cause her to blank out and and be confused afterwards. Falls have previously been associated with these seizures. Patient was able to assist EMS in walking to the cot with minimal assistance. Patient did ask to smoke a cigarette before coming to the emergency department via EMS from the assisted living shelter. This was declined per EMS. Occurred: this morning Severity: mild Injuries/Pain Location: other (right shoulder) Context: unknown Loss of Consciousness: unsure Modifying Factors: Worse With Movement (right shoulder); Improves With Rest Associated Symptoms (Fall): No Chest Pain; Confusion (baseline); No Headache, No Lightheadedness, No Muscle Spasms, No Neck Pain, No Trouble Walking Allergies and Home Medications Allergies Coded Allergies: Penicillins (Verified Allergy, Mild, 07/22/13) latex (Verified Allergy, Mild, 07/22/13) Home Medications Aspirin 81 Mg Tablet.dr, 81 MG PO DAILY, (Reported) Atorvastatin Calcium 80 Mg Tablet, 80 MG PO DAILY, (Reported) Divalproex Sodium 250 Mg Tablet.dr, 250 MG PO DAILY, (Reported) Divalproex Sodium 500 Mg Tablet.dr, 500 MG PO DAILY, (Reported) Duloxetine HCl 60 Mg Capsule.dr, 60 MG PO DAILY, (Reported) Fluconazole 200 Mg Tablet, 200 MG PO Q48H, (Reported) TAKE ON ODD DAYS RELATED TO BACTERIAL INFECTION Furosemide 40 Mg Tablet, 40 MG PO DAILY, (Reported) Hydrocodone Bit/Acetaminophen 1 Each Tablet, 1 TAB PO Q4H PRN for MODERATE PAIN Prescribed by: DADA SANDOVLA on 10/02/16 1120 Lactulose 10 Gm/15 Ml Solution, 20 GM PO DAILY PRN for CONSTIPATION-1ST LINE, (Reported) Levetiracetam 1,000 Mg Tablet, 1,000 MG PO BID, (Reported) Melatonin 3 Mg Tablet, 3 MG PO HS, (Reported) Meloxicam 15 Mg Tablet, 15 MG PO DAILY, (Reported) Oxybutynin Chloride 15 Mg Tab.er.24, 15 MG PO HS, (Reported) Pantoprazole Sodium 40 Mg Tablet.dr, 40 MG PO DAILY, (Reported) Polyethylene Glycol 3350 17 Gm Powd.pack, 17 GM PO DAILY PRN for CONSTIPATION- 2ND LINE, (Reported) Potassium Chloride 10 Meq Tab.er.prt, 10 MEQ PO DAILY, (Reported) Prednisolone Acetate 5 Ml Drops.susp, 1 DROP OU Q48H, (Reported) Prednisone 10 Mg Tab, 10 MG PO DAILY, (Reported) Quetiapine Fumarate 50 Mg Tablet, 50 MG PO HS, (Reported) Spironolactone 100 Mg Tablet, 100 MG PO DAILY, (Reported) Topiramate 25 Mg Tablet, 25 MG PO BID, (Reported) Patient Home Medication List Home Medication List Reviewed: Yes Review of Systems Review of Systems Constitutional: see HPI; No chills, No fever Eyes: No Symptoms Reported Ears, Nose, Mouth, Throat: no symptoms reported Respiratory: no symptoms reported Cardiovascular: see HPI; No chest pain, No edema Gastrointestinal: no symptoms reported Genitourinary: no symptoms reported Musculoskeletal: see HPI; No back pain; joint pain, muscle pain; No neck pain Skin: change in color; No lesions Psychiatric/Neurological: See HPI; Denies Headache All Other Systems Reviewed Negative Unless Noted: Yes Past Dqvupiv-Mjoalz-Miptqf Hx Past Med/Social Hx: Reviewed Nursing Past Med/Soc Hx Patient Social History Alcohol Use: Denies Use Recreational Drug Use: No Smoking Status: Current Everyday Smoker Type Used: Cigarettes Former Smoker, Quit: Jul 05, 2013 2nd Hand Smoke Exposure: Yes Recent Hopitalizations: No Immunizations Up To Date Tetanus Booster (TDap): Unknown Date of Influenza Vaccine: Apr 11, 2018 Seasonal Allergies Seasonal Allergies: No Past Medical History Surgeries: Yes Gallbladder, Lumpectomy Respiratory: Yes (BRONCHITIS) Chronic Bronchitis Currently Using CPAP: No Cardiac: Yes Chronic Edema/Swelling, Coronary Artery Disease, High Cholesterol, Hypertension, Rheumatic Fever Neurological: Yes (ENCEPHALITIS, restless leg syndrome) Concussion, Dementia, Seizure Disorder, Traumatic Brain Injury, Vertigo Reproductive Disorders: No Female Reproductive Disorders: Denies Sexually Transmitted Disease: No HIV/AIDS: No Genitourinary: Yes (CHRONIC RENAL INSUFFICIENCY; BLADDER CONTROL ISSUES?) Gastrointestinal: Yes ("STOMACH DISCOMFORT"--POST-CHOLECYSTECTOMY SYNDROME) Gastroesophageal Reflux, Chronic Constipation, Chronic Diarrhea, Gall Bladder Disease, Irritable Bowel Musculoskeletal: Yes Arthritis Endocrine: No HEENT: Yes (READING GLASSES) Loss of Vision: Bilateral Hearing Impairment: Denies Cancer: No Psychosocial: Yes Sleep Difficulties, Bipolar Integumentary: Yes Psoriasis Blood Disorders: No Adverse Reaction/Blood Tranf: No Family Medical History Reviewed Nursing Family Hx Cancer 03 FATHER (PANCREATIC CANCER) 09 BROTHER ( AT AGE 10) Family history: Cardiovascular disease 03 MOTHER Family history: Diabetes mellitus 03 MOTHER Heart disease 03 MOTHER No Pertinent Family Hx Physical Exam Vital Signs Vital Signs - First Documented 11/10/19 08:48 Temp 36.5 Pulse 76 Resp 18 B/P (MAP) 132/72 (92) Pulse Ox 94 O2 Delivery Room Air Capillary Refill : Height, Weight, BMI Height: 5'4.00" Weight: 166lbs. 0.0oz. 75.965323yb; 28.9 BMI Method:Stated General Appearance: WD/WN, no apparent distress HEENT: PERRL/EOMI, TMs normal, pharynx normal Neck: non-tender, full range of motion, supple, normal inspection Cardiovascular: regular rate, rhythm, no murmur Respiratory: lungs clear, normal breath sounds Gastrointestinal: non tender, soft Back: normal inspection, no CVA tenderness, no vertebral tenderness Extremities: pelvis stable, other (tender in the area of the proximal humerus and right shoulder.) Neurologic/Psychiatric: alert, normal mood/affect, oriented x 3 Skin: warm/dry, ecchymosis (right leg, left face and scattered throughout the body.) Debbie Coma Score Best Eye Response: (4) Open Spontaneously Best Verbal Response: (5) Oriented Best Motor Response: (6) Obeys Commands Progress/Results/Core Measures Results/Orders My Orders Orders - THERESE FINN MD Ct Head/Cervical Spine Wo (11/10/19 08:55) Chest 1 View, Ap/Pa Only (11/10/19 08:55) Shoulder, Right, 3 Views (11/10/19 08:55) Vital Signs/I&O 11/10/19 08:48 Temp 36.5 Pulse 76 Resp 18 B/P (MAP) 132/72 (92) Pulse Ox 94 O2 Delivery Room Air Progress Progress Note : Progress Note Seen and evaluated. CT head and neck ordered due to unwitnessed fall. X-ray chest and right shoulder ordered. Monitor patient. 0947: CT head and neck negative. Small fracture greater tubercle of right humerus noted. Sling placed. Chest x-ray okay. Discharged home with return precautions. Information given to assisted living facility. Patient overall doing better. Diagnostic Imaging Diagonstic Imaging: CT Plain Films/CT/US/NM/MRI: c-spine, head Comments NAME: [facility] REC#: [id number] PT STATUS: REG ER : 1950 PHYSICIAN: THERESE FINN MD ADMIT DATE: 11/10/19/ER Signed Date of Exam:11/10/19 CT HEAD/CERVICAL SPINE WO PROCEDURE: CT head and CT cervical spine without contrast. TECHNIQUE: Multiple contiguous axial images were obtained through the brain and cervical spine without the use of intravenous contrast. Sagittal and coronal reformations through the cervical spine were then performed. Auto Exposure Controls were utilized during the CT exam to meet ALARA standards for radiation dose reduction. INDICATION: Head and neck pain after fall. FINDINGS: There is prominence of ventricles and sulci. There is mild chronic microvascular ischemic disease. There is no hydrocephalus. There is no midline shift. There is no mass, hemorrhage or extra-axial fluid collection. Calvarium is intact. Sinuses and mastoid air cells are clear. There is straightening of the normal cervical lordosis. There is multilevel degenerative disc disease. There is some posterior facet arthropathy. There is no fracture or traumatic subluxation. Odontoid is intact and lateral masses are well aligned. Lung apices are clear. Prevertebral soft tissues are within normal limits. IMPRESSION: Atrophy and some chronic microvascular ischemic disease, however no acute intracranial abnormality. Cervical spondylosis and degenerative disc disease without acute fracture or traumatic subluxation. Dictated by: Dictated on workstation # [id number] Dict: 11/10/19 0933 Trans: 11/10/19 0941 [id number] Interpreted by: PATIENCE WALTERS MD Electronically signed by: PATIENCE WALTERS MD 11/10/19940 Diagonstic Imaging: Xray Plain Films/CT/US/NM/MRI: chest Comments [facility] [place] [place] NAME: [facility] REC#: [id number] PT STATUS: REG ER : 1950 PHYSICIAN: THERESE FINN MD ADMIT DATE: 11/10/19/ER Signed Date of Exam:11/10/19 CHEST 1 VIEW, AP/PA ONLY Indication: Right shoulder pain Portable chest 9:17 AM Heart size and pulmonary vascularity are normal. Lungs are clear. There are no effusions or pneumothoraces. IMPRESSION: Negative chest Dictated by: Dictated on workstation # [id number] Dict: 11/10/19920 Trans: 11/10/19922 TB [id number] Interpreted by: THERESE BERRY MD Electronically signed by: THERESE BERRY MD 11/10/19922 Diagonstic Imaging: Xray Plain Films/CT/US/NM/MRI: other Comments [facility] [place] NAME: [facility] REC#: [id number] PT STATUS: REG ER : 1950 PHYSICIAN: THERESE FINN MD ADMIT DATE: 11/10/19/ER Draft Date of Exam:11/10/19 SHOULDER, RIGHT, 3 VIEWS INDICATION: Fall. Pain. COMPARISON: None. FINDINGS: There is abnormal curvilinear lucency involving the superior margins of the greater tubercle of the right humerus. Findings are consistent with fracture. There is no displacement of fracture fragments. Joint spaces are otherwise maintained. No other acute appearing osseous abnormalities are seen. Included portions of right hemithorax are clear. IMPRESSION:. Acute nondisplaced fracture involving the greater tubercle of the proximal right humerus. Dictated on workstation # [id number] Dict: 11/10/19922 Trans: 11/10/19928 SA [id number] Interpreted by: JAYA FERGUSON MD Electronically signed by: Departure Impression Primary Impression: Fracture of proximal end of right humerus Qualified Codes: S42.294A - Other nondisplaced fracture of upper end of right humerus, initial encounter for closed fracture Disposition: HOME, SELF-CARE Condition: Stable Departure-Patient Inst. Decision time for Depature: 09:49 Referrals: JOVON LING MD (PCP/Family) Primary Care Physician BARB ISLAS MD, MICHAEL P MD Patient Instructions: Upper Arm Fracture Add. Discharge Instructions: All discharge instructions reviewed with patient and/or family. Voiced understanding. Use sling for the next few weeks as needed for comfort. Follow-up with orthopedist listed or of your choosing within one week for recheck and further evaluation. This is a stable fracture. Protect from falls. Continue home medicin es as previously prescribed. Follow-up with your Dr. in a few days for recheck and further evaluation as needed. THERESE FINN MD November 10, 2019 08:58
--- OUTSIDE RECORDS SUMMARY | 2019-11-10 08:59 | XMS REPORT | Encounter Summary ---
Author Author [facility] Organization [facility] Address Unknown Phone Unavailable Care Team Providers Care Gear Tooth Lapping Machine Operator Name Role Phone Addy Farr PCP Encounter Details Care Team Description Date [place] [address] [place] [address] 11/09/2017 Documentation [facility] [address] [place], [place] [id number] Social History Date Tobacco Use Types Packs/Day Years Used Never Assessed Sex Assigned at Date Recorded Not on file Industry Job Start Date Occupation Not on file Not on file Not on file Travel End Travel History Travel Start No recent travel history available. documented as of this encounter Plan of Treatment Not on filedocumented as of this encounter Visit Diagnoses Not on filedocumented in this encounter
--- OUTSIDE RECORDS SUMMARY | 2019-11-10 08:59 | XMS REPORT | Clinical Summary ---
Author Author [facility] Organization [facility] Address Unknown Phone Unavailable Care Team Providers Care Textile Science Technician Name Role Phone Addy Farr PCP Allergies Not on File Medications Not on file Active Problems Not on file Social History Date Tobacco Use Types Packs/Day Years Used Never Assessed Sex Assigned at Date Recorded Not on file Industry Job Start Date Occupation Not on file Not on file Not on file Travel End Travel History Travel Start No recent travel history available. Last Filed Vital Signs Not on file Plan of Treatment Health Maintenance Due Date Last Done Comments Hepatitis C Screen 1950 Medicare Annual Wellness 1950 Td # 1950 Colorectal Screening via 2001 Colonoscopy Mammogram Screening 2001 Zoster Vaccine# (1 of 2) 2001 Depression Screening 2016 PHQ-9 # Fall Risk Assessment # 2016 Osteoporosis Screening 2016 Pneumococcal Vaccine: 65+ 2016 Years (1 of 2 - PCV13) Influenza Vaccine (Season 05/05/2020 Ended) Results Not on filefrom Last 3 Months Insurance Type Payer Benefit Subscriber ID Effective Phone Address Plan / Dates Group Medicare MEDICARE MEDICARE xxxxxxxxxx 2000-P [place] PART A B resent [facility] xxxxxxxxx [id number] FED[employer]AL resent Guarantor Name Account Relation to Date of Phone Michaela valentine Address Type Patient Marcela Gibbs Personal/F Self 1950 [address] [place] (Home) [place] [address] Marcela Gibbs Personal/F Self 1950 [address] [place] (Home) [place] [address] Marcela Gibbs Personal/F Self 1950 [address] [facility] [place] [address] Advance Directives For more information, please contact: [phone] 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
--- OUTSIDE RECORDS SUMMARY | 2019-11-10 08:59 | XMS REPORT | Encounter Summary ---
Author Author [facility] Organization [facility] Address Unknown Phone Unavailable Care Team Providers Care Veneer Manufacturer Name Role Phone Addy Farr PCP Encounter Details Care Team Description [place] [address] [place] [address] 11/09/2017 Documentation [facility] [address] [place], [place] [id number] Social History Date Tobacco Use Types Packs/Day [...]
--- OUTSIDE RECORDS SUMMARY | 2019-11-10 09:00 | XMS REPORT | Encounter Summary ---
Author Author [facility] Organization [facility] Address Unknown Phone Unavailable Care Team Providers Care Cartoon Designer Name Role Phone PCP Unavailable Encounter Details Care Team Description Date Type Department Elizabeth Enriquez MD [address] [facility] [address] [place] [address] [phone] DIZZINESS AND GIDDINESS 02/15/2004 [facility] al Encounter [address] [place] [address] Social History Date Tobacco Use Types Packs/Day Years Used Never Assessed Sex Assigned at Date Recorded Not on file Industry Job Start Date Occupation Not on file Not on file Not on file Travel End Travel History Travel Start No recent travel history available. documented as of this encounter Miscellaneous Notes * Operative Note - Eliseo Tai, - 09/02/2013 5:16 PM [facility] Report Name: MARCELA GIBBS MRN/Unit #: [id number] Attending Physician: ELIZABETH ENRIQUEZ MD Date of : 1950 DATE OF PROCEDURE: 02/17/04. PROCEDURE PERFORMED: Electronystagmogram. INDICATIONS FOR THE PROCEDURE: This is a 53-year-old woman with a three month history of dizziness and gait dysequilibrium. DESCRIPTION OF PROCEDURE: Horizontal gaze responses were normal. Horizontal optokinetic responses were normal. Horizontal smooth pursuit maneuvers were normal. Horizontal random saccades were normal. Spontaneous responses were normal. Hallpike responses were normal. Positional testing and head hanging, supine, head left, head right, body right and body left were normal. Bithermal caloric testing was performed. Right cold at 31 degrees was 24 degrees per second. Left cold at 31 degrees was 17 degrees per second. Left warm at 44 degrees was 17 degrees per second. Right warm at 44 degrees was 17 degrees per second. Left caloric weakness was 9.4%, in normal range. Left beating directional preponderance was 9.4%, in normal range. Normal fixation and suppression. IMPRESSION: This is a normal electronystagmogram. Eliseo Tai D.O. Dictated By: cc: [facility] PACKER documented in this encounter Plan of Treatment Not on filedocumented as of this encounter Visit Diagnoses Diagnosis Dizziness and giddiness documented in this encounter
--- OUTSIDE RECORDS SUMMARY | 2019-11-10 09:00 | XMS REPORT | Encounter Summary ---
Author Author [facility] Organization [facility] Address Unknown Phone Unavailable Care Team Providers Care Applicator Sprayer Name Role Phone PCP Unavailable Encounter Details Care Team Description Date Type Department Avinash Mahmood MD [address] [address] [phone] 04/18/2007 Hist-Visit [facility] Social History Date Tobacco Use Types Packs/Day [...]
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
--- OUTSIDE RECORDS SUMMARY | 2019-11-10 09:00 | XMS REPORT | Clinical Summary ---
Author Author [facility] Organization [facility] Address Unknown Phone Unavailable Care Team Providers Care Hinging Machine Operator Name Role Phone Andres Jo MD [address] Prajapati MD Unavailable Lex Dunne MD Unavailable Heavenly Artis MD Unavailable Lori Mistry RN Unavailable Unavailable Lane De Paz RN Unavailable Unavailable Tanisha Duarte MD Unavailable Unavailable Avinash Chung MD Unavailable Unavailable Cecile Ribeiro RN Unavailable Unavailable No Pcp, Na PCP Unavailable Source Comments Some departments are not documenting in the electronic medical record. If you d o not see the information that you expected, contact Release of Information in [facility] Information Management department at [phone] for further assistan ce in locating additional records.[facility] Allergies Comments Active Allergy Reactions Severity [...] AMITRIPTYLINE HCL Apply to 100 g 1 05/19/20 1 (AMITRIPTYLINE/GABAPENTIN affected 6 /EMU OIL(#)) 4/4/10 % joints tid Suspended donepezil (ARICEPT) 10 mg Take 10 mg by 0 07/05 7/200 tablet mouth daily. 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 OPERATOR Blood Pressure 56 05/18/2016 4:43 PM INVERFORM MACHINE OPERATOR Pulse 36.4 C (97.6 F) 05/19/2016 8:00 AM INVERFORM MACHINE OPERATOR Temperature - - Respiratory Rate 97% 05/19/2016 8:00 AM INVERFORM MACHINE OPERATOR Oxygen Saturation - - Inhaled Oxygen Concentration 95.3 kg (210 lb) 05/18/2016 4:43 PM INVERFORM MACHINE OPERATOR Weight 162.6 cm (5' 4") 05/18/2016 4:43 PM INVERFORM MACHINE OPERATOR Height 36.05 05/18/2016 4:43 PM INVERFORM MACHINE OPERATOR Body Mass Index Plan of Treatment Health Maintenance Due Date Last Done Comments MEDICARE ANNUAL WELLNESS 1950 VISIT DTAP/TDAP VACCINES (1 - 1969 Tdap) HEPATITIS C SCREENING 1969 PHYSICAL (COMPREHENSIVE) 1969 EXAM COLORECTAL CANCER 2001 SCREENING SHINGLES RECOMBINANT 2001 VACCINE (1 of 2) BREAST CANCER SCREENING 07/22/2008 07/22/2007, 07/22/2007 OSTEOPOROSIS 2016 SCREENING/MONITORING PNEUMONIA (PPSV23) 2016 VACCINE (1 of 1 - PPSV23) INFLUENZA VACCINE 04/04/2020 Results Not on filefrom Last 3 Months Insurance Type Payer Benefit Subscriber ID Effective Phone Address Plan / Dates Group Medicare MEDICARE MEDICARE xxxxxxxxxx 2000-P PART A AND resent B PPO BCBS [place] BCBS [place] xxxxxxxxx 2010-P FED EMP resent PROGRAM [place] U[place] xxxxxxxxxxx 2016- COMMUN[place] Present [place]AN [place] Advance Directives 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 needed
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
--- OUTSIDE RECORDS SUMMARY | 2019-11-10 09:00 | XMS REPORT ---
Author Author Marcela PERES Organization [facility] Address [address] [place] [address] Care Team Providers Care Grocery Stock Clerk Name Role Phone VANESSA PERES Unavailable PROBLEMS Type Condition ICD9-CM Code QQR49-LV Code Onset Dates Condition S tatus SNOMED Code Problem Loss of weight 783.21 Active 30733 5001 Problem Other malaise and fatigue 780.79 Acti ve 533383789 Problem Pain in soft tissues of limb 729.5 A ctive 44712481 Problem Other specified cardiac dysrhythmias 427.89 Active 797572342 Problem Other and unspecified hyperlipidemia 272.4 Active 78623402 Problem Muscle weakness (generalized) 728.87 Active 38763919 Problem Cervicalgia 723.1 Active 99698904 Problem Unspecified arthropathy, site 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.90 Active 136991718 Problem Unspecified symptom associated with female genital organs 625.9 Active [id number] ALLERGIES No Information ENCOUNTERS Encounter Location Date Diagnosis [facility] [address] [facility] [id number] [address] [place] [address] [id number] Sep, Dental caries K02.9 [facility] [address] [facility] [id number] [address] [place] [address] [id number] Sep, [facility] [address] [facility] [id number] [address] [place] [address] [id number] Sep, Dental examination Z01.20 [facility] [address] [facility] [id number] [address] [place] [address] [id number] May, Dental examination Z01.20 [facility] [address] [facility] [id number] [address] [place] [address] [id number] Apr, Dental examination Z01.20 [facility] [address] [facility] [id number] [address] [place] [phone] Dec, [facility] [address] [id number] [address] [place] [address] [id number] Feb, Dental examination Z01.20 [facility] [address] [id number] [address] [place] [address] [id number] Jan, Dental caries K02.9 [facility] [address] [id number] [address] [place] [address] [id number] Dec, Dental examination Z01.20 [facility] [address] [id number] [address] [place] [address] [id number] Oct, Dental examination Z01.20 [facility] [address] [id number] [address] [place] [address] [id number] Aug, Encounter for dental examina tion Z01.20 [facility] [address] [id number] [address] [place] [phone] Aug, [facility] [address] [facility] [id number] [address] [place] [address] Mar, [facility] [address] [id number] [address] [place] [address] [id number] Mar, Dental examination V72.2 [facility] [address] [facility] [id number] [address] [place] [phone] Feb, Unspecified arthropathy, sit e 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.90 ; Psychotic disorder 298.9 and Seborrhea 706.3 [facility] [address] [facility] [id number] [address] [place] [phone] Jan, [facility] [address] [facility] [id number] [address] [place] [phone] Dec, Dizziness 780.4 and Pain in soft tissues of limb 729.5 [facility] [address] [facility] [id number] [address] [place] [phone] Dec, [facility] [address] [facility] [id number] [address] [place] [phone] Oct, [facility] [address] [id number] [address] [place] [address], [place] [address] 13 Oct, 2014 [facility] [address] [id number] [address] [place] [address], [place] [address] 19 Sep, 2014 [facility] [address] [id number] [address] [place] [address], [place] [address] 19 Sep, 2014 [facility] [address] [id number] [address] [place] [address], [place] [address] 11 Sep, 2014 [facility] [address] [id number] [address] [place] [address], [place] [address] 11 Sep, 2014 [facility] [address] [id number] [address] [place] [address], [place] [address] 13 Aug, 2014 [facility] [address] [id number] [address] [place] [address], [place] [address] Aug, [facility] [address] [id number] [address] [place] [address], [place] [address] 17 May, 2014 [facility] [address] [id number] [address] [place] [address], [place] [address] 17 May, 2014 [facility] [address] [id number] [address] [place] [address], [place] [address] 17 May, 2014 [facility] [address] [id number] [address] [place] [address], [place] [address] 17 May, 2014 [facility] [address] [id number] [address] [place] [address], [place] [address] 17 May, 2014 [facility] [address] [id number] [address] [place] [address], [place] [address] 17 May, 2014 [facility] [address] [id number] [address] [place] [address], [place] [address] 17 May, 2014 [facility] [address] [id number] [address] [place] [address], [place] [address] 14 May, 2014 [facility] [address] [id number] [address] [place] [address], [place] [address] May, [facility] [address] [id number] [address] [place] [address], [place] [address] May, [facility] [address] [id number] [address] [place] [address], [place] [address] May, [facility] [address] [id number] [address] [place] [address], [place] [address] Apr, [facility] [address] [id number] [address] [place] [address], [place] [address] Apr, [facility] [address] [id number] [address] [place] [address], [place] [address] Feb, [facility] [address] [id number] [address] [place] [address], [place] [address] Feb, [facility] [address] [id number] [address] [place] [address], [place] [address] Feb, [facility] [address] [id number] [address] [place] [address], [place] [address] Feb, [facility] [address] [id number] [address] [place] [address], [place] [address] Jan, [facility] [address] [id number] [address] [place] [address], [place] [address] Jan, [facility] [address] [id number] [address] [place] [address], [place] [address] Jan, [facility] [address] [id number] [address] [place] [address], [place] [address] Jan, [facility] [address] [id number] [address] [place] [address], [place] [address] Dec, [facility] [address] [id number] [address] [place] [address], [place] [address] Dec, [facility] [address] [id number] [address] [place] [address], [place] [address] Dec, [facility] [address] [id number] [address] [place] [address], [place] [address] Dec, [facility] [address] [id number] [address] [place] [address], [place] [address] Oct, [facility] [address] [id number] [address] [place] [address], [place] [address] Oct, [facility] [address] [id number] [address] [place] [address], [place] [address] Oct, [facility] [address] [id number] [address] [place] [address], [place] [address] Oct, [facility] [address] [id number] [address] [place] [address], [place] [address] Oct, [facility] [address] [id number] [address] [place] [address], [place] [address] Oct, [facility] [address] [id number] [address] [place] [address], [place] [address] Oct, [facility] [address] [id number] [address] [place] [address], [place] [address] Jul, [facility] [address] [id number] [address] [place] [address], [place] [address] Jul, [facility] [address] [id number] [address] [place] [address], [place] [address] Jun, [facility] [address] [id number] [address] [place] [address], [place] [address] Jun, [facility] [address] [id number] [address] [place] [address], [place] [address] Jun, [facility] [address] [id number] [address] [place] [address], [place] [address] Jun, [facility] [address] [id number] [address] [place] [address], [place] [address] May, [facility] [address] [id number] [address] [place] [address], [place] [address] May, [facility] [address] [id number] [address] [place] [address], [place] [address] May, [facility] [address] [id number] [address] [place] [address], [place] [address] May, [facility] [address] [id number] [address] [place] [address], [place] [address] Apr, [facility] [address] [id number] [address] [place] [address], [place] [address] Apr, [facility] [address] [id number] [address] [place] [address], [place] [address] Apr, [facility] [address] [id number] [address] [place] [address], [place] [address] Apr, [facility] [address] [id number] [address] [place] [address], [place] [address] Apr, [facility] [address] [id number] [address] [place] [address], [place] [address] Mar, [facility] [address] [id number] [address] [place] [address], [place] [address] Mar, [facility] [address] [id number] [address] [place] [address], [place] [address] Mar, [facility] [address] [id number] [address] [place] [address], [place] [address] Mar, [facility] [address] [id number] [address] [place] [address] Feb, [facility] [address] [id number] [address] [place] [address], [place] [address] Jan, [facility] [address] [id number] [address] [place] [address], [place] [address] Jan, [facility] [address] [id number] [address] [place] [address], [place] [address] Jan, [facility] [address] [id number] [address] [place] [address], [place] [address] Jan, [facility] [address] [id number] [address] [place] [address], [place] [address] Jan, [facility] [address] [id number] [address] [place] [address], [place] [address] Jan, [facility] [address] [id number] [address] [place] [address], [place] [address] Jan, [facility] [address] [id number] [address] [place] [address], [place] [address] November, [facility] [address] [id number] [address] [place] [address], [place] [address] Sep, [facility] [address] [id number] [address] [place] [address], [place] [address] Sep, [facility] [address] [id number] [address] [place] [address], [place] [address] Aug, [facility] [address] [id number] [address] [place] [address], [place] [address] Aug, [facility] [address] [id number] [address] [place] [address], [place] [address] Jul, [facility] [address] [id number] [address] [place] [address], [place] [address] Jul, [facility] [address] [id number] [address] [place] [address], [place] [address] Jul, [facility] [address] [id number] [address] [place] [address], [place] [address] May, [facility] [address] [id number] [address] [place] [address], [place] [address] Apr, [facility] [address] [id number] [address] [place] [address], [place] [address] Apr, [facility] [address] [id number] [address] [place] [address], [place] [address] Apr, [facility] [address] [id number] [address] [place] [address], [place] [address] Apr, [facility] [address] [id number] [address] [place] [address], [place] [address] Apr, [facility] [address] [id number] [address] [place] [address], [place] [address] Mar, [facility] [address] [id number] [address] [place] [address], [place] [address] Feb, [facility] [address] [id number] [address] [place] [address], [place] [address] Feb, [facility] [address] [id number] [address] [place] [address], [place] [address] Jan, [facility] [address] [id number] [address] [place] [address], [place] [address] Jan, [facility] [address] [id number] [address] [place] [address], [place] [address] November, [facility] [address] [id number] [address] [place] [address], [place] [address] 20 Oct, 2011 [facility] [address] [id number] [address] [place] [address], [place] [address] 19 Oct, 2011 [facility] [address] [id number] [address] [place] [address], [place] [address] 18 Oct, 2011 [facility] [address] [id number] [address] [place] [address], [place] [address] 18 Oct, 2011 [facility] [address] [id number] [address] [place] [address], [place] [address] 16 Oct, 2011 [facility] [address] [id number] [address] [place] [address], [place] [address] 13 Oct, 2011 [facility] [address] [id number] [address] [place] [address], [place] [address] 12 Oct, 2011 [facility] [address] [id number] [address] [place] [address], [place] [address] 11 Oct, 2011 [facility] [address] [id number] [address] [place] [address], [place] [address] 10 Oct, 2011 [facility] [address] [id number] [address] [place] [address], [place] [address] 10 Oct, 2011 [facility] [address] [id number] [address] [place] [address], [place] [address] Sep, [facility] [address] [id number] [address] [place] [address], [place] [address] 10 Aug, 2011 [facility] [address] [id number] [address] [place] [address], [place] [address] Jun, [facility] [address] [id number] [address] [place] [address], [place] [address] 14 Jun, 2011 [facility] [address] [id number] [address] [place] [address], [place] [address] 14 Jun, 2011 [facility] [address] [id number] [address] [place] [address], [place] [address] 14 Jun, 2011 [facility] [address] [id number] [address] [place] [address], [place] [address] 07 Jun, 2011 [facility] [address] [id number] [address] [place] [address], [place] [address] 02 May, 2011 [facility] [address] [id number] [address] [place] [address], [place] [address] Apr, [facility] [address] [id number] [address] [place] [address], [place] [address] 10 Apr, 2011 [facility] [address] [id number] [address] [place] [address], [place] [address] 15 Oct, 2010 [facility] [address] [id number] [address] [place] [address], [place] [address] 09 Jun, 2010 [facility] [address] [id number] [address] [place] [address], [place] [address] 07 Jun, 2010 [facility] [address] [id number] [address] [place] [address] Jun, [facility] [address] [id number] [address] [place] [address] Jun, [facility] [address] [id number] [address] [place] [address] May, [facility] [address] [id number] [address] [place] [address] May, [facility] [address] [id number] [address] [place] [address] May, [facility] [address] [id number] [address] [place] [address] Apr, [facility] [address] [id number] [address] [place] [address] Apr, [facility] [address] [id number] [address] [place] [address] Apr, [facility] [address] [id number] [address] [place] [address] Oct, [facility] [address] [id number] [address] [place] [address] Jul, [facility] [address] [id number] [address] [place] [address] Apr, [facility] [address] [id number] [address] [place] [address] Mar, IMMUNIZATIONS No Known Immunizations SOCIAL HISTORY [...]
--- OUTSIDE RECORDS SUMMARY | 2019-11-10 09:00 | XMS REPORT | Encounter Summary ---
Author Author [facility] Organization [facility] Address Unknown Phone Unavailable Care Team Providers Care Physician Scientist Name Role Phone PCP Unavailable Encounter Details Care Team Description Date Type Department Mukesh Liang MD [address] [facility] [address] [place] [address] [phone] 12/22/2016 Documentation [facility] [address] [facility] [address] [place] [id number] Social History Date Tobacco Use Types Packs/Day [...]
--- OUTSIDE RECORDS SUMMARY | 2019-11-10 09:00 | XMS REPORT | Encounter Summary ---
Author Author [facility] Organization [facility] Address Unknown Phone Unavailable Care Team Providers Care Girl Friday Name Role Phone Addy Farr PCP Reason for Referral * Consultation (Routine) Referred By Contact Referred To Contact Status Reason Specialty Diagnoses / Procedures Addy Farr MD [address] [place] [address] [place] [address] [place] [address] Closed Specialty Services Endocrinology Diagnoses Required Thyroid function test abnormal Nontoxic multinodular goiter Encounter Details Care Team Description Date [place] [address] [place], [place] [id number] Thyroid function test abnormal (Primary Dx); Nontoxic multinodular goiter 09/21/2017 Transcribe Eric aceves [facility] [address] [place], [place] [id number] Social History Date Tobacco Use Types Packs/Day Years Used Never Assessed Sex Assigned at Date Recorded Not on file Industry Job Start Date Occupation Not on file Not on file Not on file Travel End Travel History Travel Start No recent travel history available. documented as of this encounter Plan of Treatment Order Schedule Name Type Priority Associated Diag noses 1 Occurrences starting 09/21/2017 until 03/24/2018 Amb Referral To Outpatient Routine Thyroid functi on test Endocrinology Referral abnormal Nontoxic multinodular goiter documented as of this encounter Visit Diagnoses Diagnosis Thyroid function test abnormal Nonspecific abnormal results of thyroid function study Nontoxic multinodular goiter documented in this encounter
--- OUTSIDE RECORDS SUMMARY | 2019-11-10 09:00 | XMS REPORT | Encounter Summary ---
Author Author [facility] Organization [facility] Address Unknown Phone Unavailable Care Team Providers Care Vulnerability Researcher Name Role Phone PCP Unavailable Encounter Details Care Team Description Date Type Department Avinash Mahmood MD [address] [address] [phone] 04/18/2007 Hist-Visit [facility] Social History Date Tobacco Use [...]
--- OUTSIDE RECORDS SUMMARY | 2019-11-10 09:00 | XMS REPORT | Encounter Summary ---
Author Author [facility] Organization [facility] Address Unknown Phone Unavailable Care Team Providers Care Engine Lathe Operator Name Role Phone Addy Farr PCP Encounter Details Care Team Description Date Type Department [facility], Historical 04/04/2007 PracPart Note [facility] Social History Date Tobacco Use Types Packs/Day Years Used Never Assessed Sex Assigned at Date Recorded Not on file Industry Job Start Date Occupation Not on file Not on file Not on file Travel End Travel History Travel Start No recent travel history available. documented as of this encounter Progress Notes * [facility], Historical - 04/04/2007 10:36 AM CDT . :10:36AM .T:may owe money From: Emily Peacock () Originated by: Emily Peacock () Sent: 03/25/2007 at 1 1:22AM To: Digna Pastrana (BERONICA) Type: CHART Priority: 3 Subject: may owe money IT looks like this is a credit not a balance Thank you for checking Original Message: To: Subject: may owe money Priority: 3 Date: 03/22/2007 Akshat Diaz, I do believe this patient may have an exorbitant balance she owes [employer]. She ca lled on 03/08 to schedule a new appt and when she scheduled the appt, she refuse to disclose her SSN# over the phone. Well at the time, i informed her she can bring in her ssn when she showed up for her schedule appt on 04/18. I just mya walled patient is already in the system with her ssn, and she saw Dr. Doug barrett on 2004. Can you please investigate this, and if she does owe money, how muc h? considering she is a referral from Dr. Carcamo , I will speak to Dr. Mahmood after you have responded to my message. Thank you for your help in this matter, SG documented in this encounter Plan of Treatment Not on filedocumented as of this encounter Visit Diagnoses Not on filedocumented in this encounter
--- OUTSIDE RECORDS SUMMARY | 2019-11-10 09:00 | XMS REPORT | Encounter Summary ---
Author Author [facility] Organization [facility] Address Unknown Phone Unavailable Care Team Providers Care Male Model Name Role Phone Addy Farr PCP Encounter Details Care Team Description [place] [address] [place] [address] 11/09/2017 Documentation [facility] [address] [place], [place] [id number] Social History Date Tobacco Use Types Packs/Day [...]
--- OUTSIDE RECORDS SUMMARY | 2019-11-10 09:01 | XMS REPORT ---
Author Author Marcela PERES Organization [facility] Address [address] [place] [address] Care Team Providers Care Office Communication Professor Name Role Phone VANESSA PERES Unavailable PROBLEMS Type Condition ICD9-CM Code UFV68-RT Code Onset Dates Condition S tatus SNOMED Code Problem Loss of weight 783.21 Active 70592 5001 Problem Other malaise and fatigue 780.79 Acti ve 292671300 Problem Pain in soft tissues of limb 729.5 A ctive 61633499 Problem Other specified cardiac dysrhythmias 427.89 Active 181467321 Problem Other and unspecified hyperlipidemia 272.4 Active 53657753 Problem Muscle weakness (generalized) 728.87 Active 79494706 Problem Cervicalgia 723.1 Active 76591610 Problem Unspecified arthropathy, site 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.90 Active 900361500 Problem Unspecified symptom associated with female genital organs 625.9 Active [id number] ALLERGIES No Information ENCOUNTERS Encounter Location Date Diagnosis [facility] [address] [id number] Sep, Dental caries K02.9 [facility] [address] [id number] Sep, [facility] [address] [id number] Sep, Dental examination Z01.20 [facility] [address] [id number] May, Dental examination Z01.20 [facility] [address] [id number] Apr, Dental examination Z01.20 [facility] [address] [id number] [place] [address] Dec, [facility] [address] [id number] Feb, Dental examination Z01.20 [facility] [address] [id number] Jan, Dental caries K02.9 [facility] [address] [id number] Dec, Dental examination Z01.20 [facility] [address] [id number] Oct, Dental examination Z01.20 [facility] [address] [id number] Aug, Encounter for dental examination Z01.20 [facility] [address] [address] Aug, [facility] [address] [address] Mar, [facility] [address] [id number] Mar, Dental examination V72.2 [facility] [address] [address] Feb, Unspecified arthropathy, site unspecifie d 716.90 ; Psychotic disorder 298.9 and Seborrhea 706.3 [facility] [address] [address] Jan, [facility] [address] [address] Dec, Dizziness 780.4 and Pain in soft tissues of limb 729.5 [facility] [address] [address] Dec, [facility] [address] [address] Oct, [facility] [address] [address] Oct, [facility] [address] [address] 19 Sep, 2014 [facility] [address] [facility] [id number] [place] [address] Sep, 2014 [facility] [address] [facility] [id number] [place] [address] Sep, 2014 [facility] [address] [id number] [place] [address] Sep, 2014 [facility] [address] [id number] [place] [address] 13 Aug, 2014 [facility] [address] [facility] [id number] [place] [address] Aug, [facility] [address] [id number] [place] [address] May, [facility] [address] [id number] [place] [address] 17 May, 2014 [facility] [address] [id number] [place] [address] May, [facility] [address] [id number] [place] [address] May, [facility] [address] [id number] [place] [address] May, [facility] [address] [id number] [place] [address] 17 May, 2014 [facility] [address] [id number] [place] [address] 17 May, 2014 [facility] [address] [id number] [place] [address] 14 May, 2014 [facility] [address] [id number] [place] [address] 14 May, 2014 [facility] [address] [id number] [place] [address] May, [facility] [address] [id number] [place] [address] May, [facility] [address] [id number] [place] [address] Apr, [facility] [address] [facility] [id number] [place] [address] Apr, [facility] [address] [facility] [id number] [place] [address] Feb, [facility] [address] [id number] [place] [address] Feb, [facility] [address] [id number] [place] [address] Feb, [facility] [address] [facility] [id number] [place] [address] Feb, [facility] [address] [id number] [place] [address] Jan, [facility] [address] [id number] [place] [address] Jan, [facility] [address] [id number] [place] [address] Jan, [facility] [address] [id number] [place] [address] Jan, [facility] [address] [id number] [place] [address] Dec, [facility] [address] [id number] [place] [address] Dec, [facility] [address] [id number] [place] [address] Dec, [facility] [address] [id number] [place] [address] Dec, [facility] [address] [id number] [place] [address] Oct, [facility] [address] [id number] [place] [address] Oct, [facility] [address] [id number] [place] [address] Oct, [facility] [address] [id number] [place] [address] 14 Oct, 2013 [facility] [address] [id number] [place] [address] 11 Oct, 2013 [facility] [address] [id number] [place] [address] 11 Oct, 2013 [facility] [address] [id number] [place] [address] 07 Oct, 2013 [facility] [address] [id number] [place] [address] 15 Jul, 2013 [facility] [address] [id number] [place] [address] 15 Jul, 2013 [facility] [address] [id number] [place] [address] Jun, [facility] [id number] [place] [address] Jun, [facility] [address] [id number] [place] [address] Jun, [facility] [address] [id number] [place] [address] Jun, [facility] [address] [id number] [place] [address] May, [facility] [address] [id number] [place] [address] May, [facility] [address] [id number] [place] [address] May, [facility] [address] [id number] [place] [address] May, [facility] [address] [id number] [place] [address] Apr, [facility] [address] [id number] [place] [address] Apr, [facility] [address] [id number] [place] [address] Apr, [facility] [address] [facility] [id number] [place] [address] Apr, [facility] [address] [id number] [place] [address] Apr, [facility] [address] [id number] [place] [address] Mar, [facility] [address] [id number] [place] [address] Mar, [facility] [address] [id number] [place] [address] Mar, [facility] [address] [id number] [place] [address] Mar, [facility] [address] [id number] [place] [address] Feb, [facility] [address] [id number] [place] [address] Jan, [facility] [address] [id number] [place] [address] Jan, [facility] [address] [id number] [place] [address] Jan, [facility] [address] [id number] [place] [address] Jan, [facility] [address] [id number] [place] [address] Jan, [facility] [address] [id number] [place] [address] Jan, [facility] [address] [id number] [place] [address] Jan, [facility] [address] [id number] [place] [address] November, [facility] [address] [id number] [place] [address] Sep, [facility] [address] [id number] [place] [address] Sep, [facility] [address] [id number] [place] [address] Aug, [facility] [address] [id number] [place] [address] Aug, [facility] [address] [id number] [place] [address] Jul, [facility] [address] [id number] [place] [address] Jul, [facility] [address] [id number] [place] [address] Jul, [facility] [address] [id number] [place] [address] May, [facility] [address] [id number] [place] [address] Apr, [facility] [address] [id number] [place] [address] Apr, [facility] [address] [id number] [place] [address] Apr, [facility] [address] [id number] [place] [address] Apr, [facility] [address] [id number] [place] [address] Apr, [facility] [address] [id number] [place] [address] Mar, [facility] [address] [id number] [place] [address] Feb, [facility] [address] [id number] [place] [address] Feb, [facility] [address] [id number] [place] [address] Jan, [facility] [address] [id number] [place] [address] Jan[facility] [address] [id number] [place] [address] 10 Nov, 2011 [facility] [address] [id number] [place] [address] 20 Oct, 2011 [facility] [address] [id number] [place] [address] 19 Oct, 2011 [facility] [address] [id number] [place] [address] 18 Oct, 2011 [facility] [address] [id number] [place] [address] 18 Oct, 2011 [facility] [address] [id number] [place] [address] 16 Oct, 2011 [facility] [address] [id number] [place] [address] 13 Oct, 2011 [facility] [address] [id number] [place] [address] 12 Oct, 2011 [facility] [address] [id number] [place] [address] 11 Oct, 2011 [facility] [address] [id number] [place] [address] 10 Oct, 2011 [facility] [address] [id number] [place] [address] 10 Oct, 2011 [facility] [address] [id number] [place] [address] Sep, [facility] [address] [id number] [place] [address] 10 Aug, 2011 [facility] [address] [id number] [place] [address] Jun, [facility] [address] [id number] [place] [address] 14 Jun, 2011 [facility] [address] [id number] [place] [address] 14 Jun, 2011 [facility] [address] [id number] [place] [address] 14 Jun, 2011 [facility] [address] [id number] [place] [address] 07 Jun, 2011 [facility] [address] [id number] [place] [address] 02 May, 2011 [facility] [address] [id number] [place] [address] 26 Apr, 2011 [facility] [address] [id number] [place] [address] 10 Apr, 2011 [facility] [address] [id number] [place] [address] 15 Oct, 2010 [facility] [address] [id number] [place] [address] 09 Jun, 2010 [facility] [address] [id number] [place] [address] 07 Jun, 2010 [facility] [address] [id number] [place] [address] Jun, [facility] [address] [id number] [place] [address] Jun, [facility] [address] [id number] [place] [address] May, [facility] [address] [id number] [place] [address] May, [facility] [address] [id number] [place] [address] May, [facility] [address] [id number] [place] [address] Apr, [facility] [address] [id number] [place] [address] Apr, [facility] [address] [id number] [place] [address] Apr, [facility] [address] [id number] [place] [address] 12 Oct, 2009 [facility] [address] [facility] [id number] [place] [address] Jul, [facility] [address] [facility] [id number] [place] [address] Apr, [facility] [address] [facility] [id number] [place] [address] Mar, IMMUNIZATIONS No Known Immunizations SOCIAL HISTORY [...]
--- OUTSIDE RECORDS SUMMARY | 2019-11-10 09:01 | XMS REPORT ---
Author Author Marcela PERES Organization [facility] Address [address] [place] [address] Care Team Providers Care Filtering Machine Tender Name Role Phone VANESSA PERES Unavailable PROBLEMS Type Condition ICD9-CM Code TOE19-XU Code Onset Dates Condition S tatus SNOMED Code Problem Loss of weight 783.21 Active 58100 5001 Problem Other malaise and fatigue 780.79 Acti ve 689612145 Problem Pain in soft tissues of limb 729.5 A ctive 12188367 Problem Other specified cardiac dysrhythmias 427.89 Active 440804742 Problem Other and unspecified hyperlipidemia 272.4 Active 90686508 Problem Muscle weakness (generalized) 728.87 Active 59575272 Problem Cervicalgia 723.1 Active 36962629 Problem Unspecified arthropathy, site 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.90 Active 159037818 Problem Unspecified symptom associated with female genital organs 625.9 Active [id number] ALLERGIES No Information ENCOUNTERS Encounter Location Date Diagnosis [facility] [address] [id number] Sep, Dental caries K02.9 [facility] [address] [id number] Sep, [facility] [address] [id number] Sep, Dental examination Z01.20 [facility] [address] [id number] May, Dental examination Z01.20 [facility] [address] [id number] Apr, Dental examination Z01.20 [facility] [address] [id number] [place] [address] Dec, [facility] [address] [id number] Feb, Dental examination Z01.20 [facility] [address] [id number] Jan, Dental caries K02.9 [facility] [address] [id number] Dec, Dental examination Z01.20 [facility] [address] [id number] Oct, Dental examination Z01.20 [facility] [address] [id number] Aug, Encounter for dental examination Z01.20 [facility] [address] [address] Aug, [facility] [address] [address] Mar, [facility] [address] [id number] Mar, Dental examination V72.2 [facility] [address] [address] Feb, Unspecified arthropathy, site unspecifie d 716.90 ; Psychotic disorder 298.9 and Seborrhea 706.3 [facility] [address] [address] Jan, [facility] [address] [address] Dec, Dizziness 780.4 and Pain in soft tissues of limb 729.5 [facility] [address] [address] Dec, [facility] [address] [address] Oct, [facility] [address] [address] Oct, [facility] [address] [address] 19 Sep, 2014 [facility] [address] [facility] [id number] [place] [address] Sep, 2014 [facility] [address] [facility] [id number] [place] [address] Sep, 2014 [facility] [address] [id number] [place] [address] Sep, 2014 [facility] [address] [id number] [place] [address] 13 Aug, 2014 [facility] [address] [facility] [id number] [place] [address] Aug, [facility] [address] [id number] [place] [address] May, [facility] [address] [id number] [place] [address] 17 May, 2014 [facility] [address] [id number] [place] [address] May, [facility] [address] [id number] [place] [address] May, [facility] [address] [id number] [place] [address] May, [facility] [address] [id number] [place] [id number] 17 May, 2014 [facility] [address] [id number] [place] [address] 17 May, 2014 [facility] [address] [id number] [place] [address] 14 May, 2014 [facility] [address] [id number] [place] [address] 14 May, 2014 [facility] [address] [id number] [place] [address] May, [facility] [address] [id number] [place] [address] May, [facility] [address] [id number] [place] [address] Apr, [facility] [address] [facility] [id number] [place] [address] Apr, [facility] [address] [facility] [id number] [place] [address] Feb, [facility] [address] [id number] [place] [address] Feb, [facility] [address] [id number] [place] [address] Feb, [facility] [address] [facility] [id number] [place] [address] Feb, [facility] [address] [id number] [place] [address] Jan, [facility] [address] [id number] [place] [id number] Jan, [facility] [address] [id number] [place] [id number] Jan, [facility] [address] [id number] [place] [address] Jan, [facility] [address] [id number] [place] [address] Dec, [facility] [address] [id number] [place] [address] Dec, [facility] [address] [id number] [place] [address] Dec, [facility] [address] [id number] [place] [address] Dec, [facility] [address] [id number] [place] [address] Oct, [facility] [address] [id number] [place] [address] Oct, [facility] [address] [id number] [place] [address] Oct, [facility] [address] [id number] [place] [address] 14 Oct, 2013 [facility] [address] [id number] [place] [id number] 11 Oct, 2013 [facility] [address] [id number] [place] [id number] 11 Oct, 2013 [facility] [address] [id number] [place] [address] 07 Oct, 2013 [facility] [address] [id number] [place] [address] 15 Jul, 2013 [facility] [address] [id number] [place] [id number] 15 Jul, 2013 [facility] [address] [id number] [place] [address] Jun, [facility] [id number] [place] [address] Jun, [facility] [address] [id number] [place] [address] Jun, [facility] [address] [id number] [place] [address] Jun, [facility] [address] [id number] [place] [address] May, [facility] [address] [id number] [place] [address] May, [facility] [address] [id number] [place] [address] May, [facility] [address] [id number] [place] [address] May, [facility] [address] [id number] [place] [address] Apr, [facility] [address] [id number] [place] [address] Apr, [facility] [address] [id number] [place] [id number] Apr, [facility] [address] [facility] [id number] [place] [address] Apr, [facility] [address] [id number] [place] [address] Apr, [facility] [address] [id number] [place] [address] Mar, [facility] [address] [id number] [place] [address] Mar, [facility] [address] [id number] [place] [address] Mar, [facility] [address] [id number] [place] [address] Mar, [facility] [address] [id number] [place] [address] Feb, [facility] [address] [id number] [place] [address] Jan, [facility] [address] [id number] [place] [address] Jan, [facility] [address] [id number] [place] [address] Jan, [facility] [address] [id number] [place] [address] Jan, [facility] [address] [id number] [place] [address] Jan, [facility] [address] [id number] [place] [address] Jan, [facility] [address] [id number] [place] [address] Jan, [facility] [address] [id number] [place] [address] November, [facility] [address] [id number] [place] [address] Sep, [facility] [address] [id number] [place] [address] Sep, [facility] [address] [id number] [place] [address] Aug, [facility] [address] [id number] [place] [address] Aug, [facility] [address] [id number] [place] [address] Jul, [facility] [address] [id number] [place] [address] Jul, [facility] [address] [id number] [place] [address] Jul, [facility] [address] [id number] [place] [address] May, [facility] [address] [id number] [place] [address] Apr, [facility] [address] [id number] [place] [address] Apr, [facility] [address] [id number] [place] [address] Apr, [facility] [address] [id number] [place] [address] Apr, [facility] [address] [id number] [place] [address] Apr, [facility] [address] [id number] [place] [address] Mar, [facility] [address] [id number] [place] [address] Feb, [facility] [address] [id number] [place] [address] Feb, [facility] [address] [id number] [place] [address] Jan, [facility] [address] [id number] [place] [address] Jan, [facility] [address] [id number] [place] [address] 10 Nov, 2011 [facility] [address] [id number] [place] [address] 20 Oct, 2011 [facility] [address] [id number] [place] [address] 19 Oct, 2011 [facility] [address] [id number] [place] [id number] 18 Oct, 2011 [facility] [address] [id number] [place] [address] 18 Oct, 2011 [facility] [address] [id number] [place] [id number] 16 Oct, 2011 [facility] [address] [id number] [place] [address] 13 Oct, 2011 [facility] [address] [id number] [place] [address] 12 Oct, 2011 [facility] [address] [id number] [place] [address] 11 Oct, 2011 [facility] [address] [id number] [place] [address] 10 Oct, 2011 [facility] [address] [id number] [place] [address] 10 Oct, 2011 [facility] [address] [id number] [place] [address] Sep, [facility] [address] [id number] [place] [address] 10 Aug, 2011 [facility] [address] [id number] [place] [address] Jun, [facility] [address] [id number] [place] [address] 14 Jun, 2011 [facility] [address] [id number] [place] [address] 14 Jun, 2011 [facility] [address] [id number] [place] [address] 14 Jun, 2011 [facility] [address] [id number] [place] [address] 07 Jun, 2011 [facility] [address] [id number] [place] [address] 02 May, 2011 [facility] [address] [id number] [place] [address] 26 Apr, 2011 [facility] [address] [id number] [place] [address] 10 Apr, 2011 [facility] [address] [id number] [place] [address] 15 Oct, 2010 [facility] [address] [id number] [place] [address] 09 Jun, 2010 [facility] [address] [id number] [place] [address] 07 Jun, 2010 [facility] [address] [id number] [place] [address] Jun, [facility] [address] [id number] [place] [address] Jun, [facility] [address] [id number] [place] [address] May, [facility] [address] [id number] [place] [address] May, [facility] [address] [id number] [place] [address] May, [facility] [address] [id number] [place] [address] Apr, [facility] [address] [id number] [place] [address] Apr, [facility] [address] [id number] [place] [address] Apr, [facility] [address] [id number] [place] [address] 12 Oct, 2009 [facility] [address] [facility] [id number] [place] [address] Jul, [facility] [address] [facility] [id number] [place] [address] Apr, [facility] [address] [facility] [id number] [place] [address] Mar, IMMUNIZATIONS No Known Immunizations SOCIAL HISTORY [...]
--- OUTSIDE RECORDS SUMMARY | 2019-11-10 09:01 | XMS REPORT ---
Author Author Marcela PERES Organization [facility] [place] Address [address] [place] [address] Care Team Providers Care Supervisor Beater Room Name Role Phone VANESSA PERES Unavailable PROBLEMS Type Condition ICD9-CM Code YRU35-CR Code Onset Dates Condition S tatus SNOMED Code Problem Loss of weight 783.21 Active 20656 5001 Problem Other malaise and fatigue 780.79 Acti ve 890134074 Problem Pain in soft tissues of limb 729.5 A ctive 51919648 Problem Other specified cardiac dysrhythmias 427.89 Active 725650563 Problem Other and unspecified hyperlipidemia 272.4 Active 35407419 Problem Muscle weakness (generalized) 728.87 Active 78347879 Problem Cervicalgia 723.1 Active 98970711 Problem Unspecified arthropathy, site 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.90 Active 229866619 Problem Unspecified symptom associated with female genital organs 625.9 Active 377500812 ALLERGIES No Information ENCOUNTERS Encounter Location Date Diagnosis [facility] [address] [id number] Sep, Dental caries K02.9 [facility] [address] [id number] Sep, [facility] [address] [id number] Sep, Dental examination Z01.20 [facility] [address] [id number] May, Dental examination Z01.20 [facility] [address] [id number] Apr, Dental examination Z01.20 [facility] [place] [address] [id number] [place] [address] Dec, [facility] [address] [id number] Feb, Dental examination Z01.20 [facility] [address] [id number] Jan, Dental caries K02.9 [facility] [address] [id number] Dec, Dental examination Z01.20 [facility] [address] [id number] Oct, Dental examination Z01.20 [facility] [address] [id number] Aug, Encounter for dental examination Z01.20 [facility] [place] [address] [address] Aug, [facility] [place] [address] [address] Mar, [facility] [address] [id number] Mar, Dental examination V72.2 [facility] [place] [address] [address] Feb, Unspecified arthropathy, site unspecifie d 716.90 ; Psychotic disorder 298.9 and Seborrhea 706.3 [facility] [place] [address] [address] Jan, [facility] [place] [address] [address] Dec, Dizziness 780.4 and Pain in soft tissues of limb 729.5 [facility] [place] [address] [address] Dec, [facility] [place] [address] [address] Oct, [facility] [place] [address] [address] Oct, [facility] [place] [address] [address] 19 Sep, 2014 [facility] [address] [facility] [id number] [place] [address] Sep, 2014 [facility] [address] [facility] [id number] [place] [address] Sep, 2014 [facility] [address] [id number] [place] [address] Sep, 2014 [facility] [address] [id number] [place] [address] 13 Aug, 2014 [facility] [address] [facility] [id number] [place] [address] Aug, [facility] [address] [id number] [place] [address] May, [facility] [address] [id number] [place] [address] 17 May, 2014 [facility] [address] [id number] [place] [address] May, [facility] [address] [id number] [place] [address] May, [facility] [address] [id number] [place] [address] May, [facility] [address] [id number] [place] [address] 17 May, 2014 [facility] [address] [id number] [place] [address] 17 May, 2014 [facility] [address] [id number] [place] [address] 14 May, 2014 [facility] [address] [id number] [place] [address] 14 May, 2014 [facility] [address] [id number] [place] [address] May, [facility] [address] [id number] [place] [address] May, [facility] [address] [id number] [place] [address] Apr, [facility] [address] [facility] [id number] [place] [address] Apr, [facility] [address] [facility] [id number] [place] [address] Feb, [facility] [address] [id number] [place] [address] Feb, [facility] [address] [id number] [place] [address] Feb, [facility] [address] [facility] [id number] [place] [address] Feb, [facility] [address] [id number] [place] [address] Jan, [facility] [address] [id number] [place] [address] Jan, [facility] [address] [id number] [place] [address] Jan, [facility] [address] [id number] [place] [address] Jan, [facility] [address] [id number] [place] [address] Dec, [facility] [address] [id number] [place] [address] Dec, [facility] [address] [id number] [place] [address] Dec, [facility] [address] [id number] [place] [address] Dec, [facility] [address] [id number] [place] [address] Oct, [facility] [address] [id number] [place] [address] Oct, [facility] [address] [id number] [place] [address] Oct, [facility] [address] [id number] [place] [address] 14 Oct, 2013 [facility] [address] [id number] [place] [address] 11 Oct, 2013 [facility] [address] [id number] [place] [address] 11 Oct, 2013 [facility] [address] [id number] [place] [address] 07 Oct, 2013 [facility] [address] [id number] [place] [address] 15 Jul, 2013 [facility] [address] [id number] [place] [address] 15 Jul, 2013 [facility] [address] [id number] [place] [address] Jun, [facility] [address] [id number] [place] [address] Jun, [facility] [address] [id number] [place] [address] Jun, [facility] [address] [id number] [place] [address] Jun, [facility] [address] [id number] [place] [address] May, [facility] [address] [id number] [place] [address] May, [facility] [address] [id number] [place] [address] May, [facility] [address] [id number] [place] [address] May, [facility] [address] [id number] [place] [address] Apr, [facility] [address] [id number] [place] [address] Apr, [facility] [address] [id number] [place] [address] Apr, [facility] [address] [facility] [id number] [place] [address] Apr, [facility] [address] [id number] [place] [address] Apr, [facility] [address] [id number] [place] [address] Mar, [facility] [address] [id number] [place] [address] Mar, [facility] [address] [id number] [place] [address] Mar, [facility] [address] [id number] [place] [address] Mar, [facility] [address] [id number] [place] [address] Feb, [facility] [address] [id number] [place] [address] Jan, [facility] [address] [id number] [place] [address] Jan, [facility] [address] [id number] [place] [address] Jan, [facility] [address] [id number] [place] [address] Jan, [facility] [address] [id number] [place] [address] Jan, [facility] [address] [id number] [place] [address] Jan, [facility] [address] [id number] [place] [address] Jan, [facility] [address] [id number] [place] [address] November, [facility] [address] [id number] [place] [address] Sep, [facility] [address] [id number] [place] [address] Sep, [facility] [address] [id number] [place] [address] Aug, [facility] [address] [id number] [place] [address] Aug, [facility] [address] [id number] [place] [address] Jul, [facility] [address] [id number] [place] [address] Jul, [facility] [address] [id number] [place] [address] Jul, [facility] [address] [id number] [place] [address] May, [facility] [address] [id number] [place] [address] Apr, [facility] [address] [id number] [place] [address] Apr, [facility] [address] [id number] [place] [address] Apr, [facility] [address] [id number] [place] [address] Apr, [facility] [address] [id number] [place] [address] Apr, [facility] [address] [id number] [place] [address] Mar, [facility] [address] [id number] [place] [address] Feb, [facility] [address] [id number] [place] [address] Feb, [facility] [address] [id number] [place] [address] Jan, [facility] [address] [id number] [place] [address] Jan, [facility] [address] [id number] [place] [address] 10 Nov, 2011 [facility] [address] [id number] [place] [address] 20 Oct, 2011 [facility] [address] [id number] [place] [address] 19 Oct, 2011 [facility] [address] [id number] [place] [address] 18 Oct, 2011 [facility] [address] [id number] [place] [address] 18 Oct, 2011 [facility] [address] [id number] [place] [address] 16 Oct, 2011 [facility] [address] [id number] [place] [address] 13 Oct, 2011 [facility] [address] [id number] [place] [address] 12 Oct, 2011 [facility] [address] [id number] [place] [address] 11 Oct, 2011 [facility] [address] [id number] [place] [address] 10 Oct, 2011 [facility] [address] [id number] [place] [address] 10 Oct, 2011 [facility] [address] [id number] [place] [address] Sep, [facility] [address] [id number] [place] [address] 10 Aug, 2011 [facility] [address] [id number] [place] [address] Jun, [facility] [address] [id number] [place] [address] 14 Jun, 2011 [facility] [address] [id number] [place] [address] 14 Jun, 2011 [facility] [address] [id number] [place] [address] 14 Jun, 2011 [facility] [address] [id number] [place] [address] 07 Jun, 2011 [facility] [address] [id number] [place] [address] 02 May, 2011 [facility] [address] [id number] [place] [address] 26 Apr, 2011 [facility] [address] [id number] [place] [address] 10 Apr, 2011 [facility] [address] [id number] [place] [address] 15 Oct, 2010 [facility] [address] [id number] [place] [address] 09 Jun, 2010 [facility] [address] [id number] [place] [address] 07 Jun, 2010 [facility] [address] [id number] [place] [address] Jun, [facility] [address] [id number] [place] [address] Jun, [facility] [address] [id number] [place] [address] May, [facility] [address] [id number] [place] [address] May, [facility] [address] [id number] [place] [address] May, [facility] [address] [id number] [place] [address] Apr, [facility] [address] [id number] [place] [address] Apr, [facility] [address] [id number] [place] [address] Apr, [facility] [address] [id number] [place] [address] 12 Oct, 2009 [facility] [address] [facility] [id number] [place] [address] Jul, [facility] [place] [address] [facility] [id number] [place] [address] Apr, [facility] [place] [address] [facility] [id number] [place] [address] Mar, IMMUNIZATIONS No Known Immunizations SOCIAL HISTORY [...]
--- OUTSIDE RECORDS SUMMARY | 2019-11-10 09:01 | XMS REPORT ---
Author Author Marcela PERES Organization [facility] Address [address] [place] [address] Care Team Providers Care Rn Endoscopy Name Role Phone VANESSA PERES Unavailable PROBLEMS Type Condition ICD9-CM Code [id number] Code Onset Dates Condition S tatus SNOMED Code Problem Loss of weight 783.21 Active 20876 5001 Problem Other malaise and fatigue 780.79 Acti ve 585531123 Problem Pain in soft tissues of limb 729.5 A ctive 20650961 Problem Other specified cardiac dysrhythmias 427.89 Active 238124108 Problem Other and unspecified hyperlipidemia 272.4 Active 98890772 Problem Muscle weakness (generalized) 728.87 Active 17822335 Problem Cervicalgia 723.1 Active 85567567 Problem Unspecified arthropathy, site 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.90 Active 702860445 Problem Unspecified symptom associated with female genital organs 625.9 Active [id number] ALLERGIES No Information ENCOUNTERS Encounter Location Date Diagnosis [facility] [address] [facility] [id number] [address] [place] [address] [id number] Sep, Dental caries K02.9 [facility] [address] [facility] [id number] [address] [place] [address] [id number] Sep, [facility] [address] [facility] [id number] [address] [place] [address] [id number] Sep, Dental examination Z01.20 [facility] [address] [facility] [id number] [address] [place] [address] [id number] May, Dental examination Z01.20 [facility] [address] [facility] [id number] [address] [place] [address] [id number] Apr, Dental examination Z01.20 [facility] [address] [facility] [id number] [address] [place] [address] Dec, [facility] [address] [id number] [address] [place] [address] [id number] Feb, Dental examination Z01.20 [facility] [address] [id number] [address] [place] [address] [id number] Jan, Dental caries K02.9 [facility] [address] [id number] [address] [place] [address] [id number] Dec, Dental examination Z01.20 [facility] [address] [id number] [address] [place] [address] [id number] Oct, Dental examination Z01.20 [facility] [address] [id number] [address] [place] [address] [id number] Aug, Encounter for dental examina tion Z01.20 [facility] [address] [id number] [address] [place] [address] Aug, [facility] [address] [facility] [id number] [address] [place] [address] Mar, [facility] [address] [id number] [address] [place] [address] [id number] Mar, Dental examination V72.2 [facility] [address] [facility] [id number] [address] [place] [address] Feb, Unspecified arthropathy, sit e 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.90 ; Psychotic disorder 298.9 and Seborrhea 706.3 [facility] [address] [facility] [id number] [address] [place] [address] Jan, [facility] [address] [facility] [id number] [address] [place] [phone] Dec, Dizziness 780.4 and Pain in soft tissues of limb 729.5 [facility] [address] [facility] [id number] [address] [place] [address] Dec, [facility] [address] [facility] [id number] [address] [place] [address] Oct, [facility] [address] [id number] [address] [place] [address], [place] [address] 13 Oct, 2014 [facility] [address] [id number] [address] [place] [address], [place] [address] 19 Sep, 2014 [facility] [address] [id number] [address] [place] [address], [place] [address] 19 Sep, 2014 [facility] [address] [id number] [address] [place] [address], [place] [address] 11 Sep, 2014 [facility] [address] [id number] [address] [place] [address], [place] [address] 11 Sep, 2014 [facility] [address] [id number] [address] [place] [address], [place] [address] 13 Aug, 2014 [facility] [address] [id number] [address] [place] [address], [place] [address] Aug, [facility] [address] [id number] [address] [place] [address], [place] [address] 17 May, 2014 [facility] [address] [id number] [address] [place] [address], [place] [address] 17 May, 2014 [facility] [address] [id number] [address] [place] [address], [place] [address] 17 May, 2014 [facility] [address] [id number] [address] [place] [address], [place] [address] 17 May, 2014 [facility] [address] [id number] [address] [place] [address], [place] [address] 17 May, 2014 [facility] [address] [id number] [address] [place] [address], [place] [address] 17 May, 2014 [facility] [address] [id number] [address] [place] [address], [place] [address] 17 May, 2014 [facility] [address] [id number] [address] [place] [address], [place] [address] 14 May, 2014 [facility] [address] [id number] [address] [place] [address], [place] [address] May, [facility] [address] [id number] [address] [place] [address], [place] [address] May, [facility] [address] [id number] [address] [place] [address], [place] [address] May, [facility] [address] [id number] [address] [place] [address], [place] [address] Apr, [facility] [address] [id number] [address] [place] [address], [place] [address] Apr, [facility] [address] [id number] [address] [place] [address], [place] [address] Feb, [facility] [address] [id number] [address] [place] [address], [place] [address] Feb, [facility] [address] [id number] [address] [place] [address], [place] [address] Feb, [facility] [address] [id number] [address] [place] [address], [place] [address] Feb, [facility] [address] [id number] [address] [place] [address], [place] [address] Jan, [facility] [address] [id number] [address] [place] [address], [place] [address] Jan, [facility] [address] [id number] [address] [place] [address], [place] [address] Jan, [facility] [address] [id number] [address] [place] [address], [place] [address] Jan, [facility] [address] [id number] [address] [place] [address], [place] [address] Dec, [facility] [address] [id number] [address] [place] [address], [place] [address] Dec, [facility] [address] [id number] [address] [place] [address], [place] [address] Dec, [facility] [address] [id number] [address] [place] [address], [place] [address] Dec, [facility] [address] [id number] [address] [place] [address], [place] [address] Oct, [facility] [address] [id number] [address] [place] [address], [place] [address] Oct, [facility] [address] [id number] [address] [place] [address], [place] [address] Oct, [facility] [address] [id number] [address] [place] [address], [place] [address] Oct, [facility] [address] [id number] [address] [place] [address], [place] [address] Oct, [facility] [address] [id number] [address] [place] [address], [place] [address] Oct, [facility] [address] [id number] [address] [place] [address], [place] [address] Oct, [facility] [address] [id number] [address] [place] [address], [place] [address] Jul, [facility] [address] [id number] [address] [place] [address], [place] [address] Jul, [facility] [address] [id number] [address] [place] [address], [place] [address] Jun, [facility] [address] [id number] [address] [place] [address], [place] [address] Jun, [facility] [address] [id number] [address] [place] [address], [place] [address] Jun, [facility] [address] [id number] [address] [place] [address], [place] [address] Jun, [facility] [address] [id number] [address] [place] [address], [place] [address] May, [facility] [address] [id number] [address] [place] [address], [place] [address] May, [facility] [address] [id number] [address] [place] [address], [place] [address] May, [facility] [address] [id number] [address] [place] [address], [place] [address] May, [facility] [address] [id number] [address] [place] [address], [place] [address] Apr, [facility] [address] [id number] [address] [place] [address], [place] [address] Apr, [facility] [address] [id number] [address] [place] [address], [place] [address] Apr, [facility] [address] [id number] [address] [place] [address], [place] [address] Apr, [facility] [address] [id number] [address] [place] [address], [place] [address] Apr, [facility] [address] [id number] [address] [place] [address], [place] [address] Mar, [facility] [address] [id number] [address] [place] [address], [place] [address] Mar, [facility] [address] [id number] [address] [place] [address], [place] [address] Mar, [facility] [address] [id number] [address] [place] [address], [place] [address] Mar, [facility] [address] [id number] [address] [place] [address] Feb, [facility] [address] [id number] [address] [place] [address], [place] [address] Jan, [facility] [address] [id number] [address] [place] [address], [place] [address] Jan, [facility] [address] [id number] [address] [place] [address], [place] [address] Jan, [facility] [address] [id number] [address] [place] [address], [place] [address] Jan, [facility] [address] [id number] [address] [place] [address], [place] [address] Jan, [facility] [address] [id number] [address] [place] [address], [place] [address] Jan, [facility] [address] [id number] [address] [place] [address], [place] [address] Jan, [facility] [address] [id number] [address] [place] [address], [place] [address] November, [facility] [address] [id number] [address] [place] [address], [place] [address] Sep, [facility] [address] [id number] [address] [place] [address], [place] [address] Sep, [facility] [address] [id number] [address] [place] [address], [place] [address] Aug, [facility] [address] [id number] [address] [place] [address], [place] [address] Aug, [facility] [address] [id number] [address] [place] [address], [place] [address] Jul, [facility] [address] [id number] [address] [place] [address], [place] [address] Jul, [facility] [address] [id number] [address] [place] [address], [place] [address] Jul, [facility] [address] [id number] [address] [place] [address], [place] [address] May, [facility] [address] [id number] [address] [place] [address], [place] [address] Apr, [facility] [address] [id number] [address] [place] [address], [place] [address] Apr, [facility] [address] [id number] [address] [place] [address], [place] [address] Apr, [facility] [address] [id number] [address] [place] [address], [place] [address] Apr, [facility] [address] [id number] [address] [place] [address], [place] [address] Apr, [facility] [address] [id number] [address] [place] [address], [place] [address] Mar, [facility] [address] [id number] [address] [place] [address], [place] [address] Feb, [facility] [address] [id number] [address] [place] [address], [place] [address] Feb, [facility] [address] [id number] [address] [place] [address], [place] [address] Jan, [facility] [address] [id number] [address] [place] [address], [place] [address] Jan, [facility] [address] [id number] [address] [place] [address], [place] [address] November, [facility] [address] [id number] [address] [place] [address], [place] [address] 20 Oct, 2011 [facility] [address] [id number] [address] [place] [address], [place] [address] 19 Oct, 2011 [facility] [address] [id number] [address] [place] [address], [place] [address] 18 Oct, 2011 [facility] [address] [id number] [address] [place] [address], [place] [address] 18 Oct, 2011 [facility] [address] [id number] [address] [place] [address], [place] [address] 16 Oct, 2011 [facility] [address] [id number] [address] [place] [address], [place] [address] 13 Oct, 2011 [facility] [address] [id number] [address] [place] [address], [place] [address] 12 Oct, 2011 [facility] [address] [id number] [address] [place] [address], [place] [address] 11 Oct, 2011 [facility] [address] [id number] [address] [place] [address], [place] [address] 10 Oct, 2011 [facility] [address] [id number] [address] [place] [address], [place] [address] 10 Oct, 2011 [facility] [address] [id number] [address] [place] [address], [place] [address] Sep, [facility] [address] [id number] [address] [place] [address], [place] [address] 10 Aug, 2011 [facility] [address] [id number] [address] [place] [address], [place] [address] Jun, [facility] [address] [id number] [address] [place] [address], [place] [address] 14 Jun, 2011 [facility] [address] [id number] [address] [place] [address], [place] [address] 14 Jun, 2011 [facility] [address] [id number] [address] [place] [address], [place] [address] 14 Jun, 2011 [facility] [address] [id number] [address] [place] [address], [place] [address] 07 Jun, 2011 [facility] [address] [id number] [address] [place] [address], [place] [address] 02 May, 2011 [facility] [address] [id number] [address] [place] [address], [place] [address] Apr, [facility] [address] [id number] [address] [place] [address], [place] [address] 10 Apr, 2011 [facility] [address] [id number] [address] [place] [address], [place] [address] 15 Oct, 2010 [facility] [address] [id number] [address] [place] [address], [place] [address] 09 Jun, 2010 [facility] [address] [id number] [address] [place] [address], [place] [address] 07 Jun, 2010 [facility] [address] [id number] [address] [place] [address] Jun, [facility] [address] [id number] [address] [place] [address] Jun, [facility] [address] [id number] [address] [place] [address] May, [facility] [address] [id number] [address] [place] [address] May, [facility] [address] [id number] [address] [place] [address] May, [facility] [address] [id number] [address] [place] [address] Apr, [facility] [address] [id number] [address] [place] [address] Apr, [facility] [address] [id number] [address] [place] [address] Apr, [facility] [address] [id number] [address] [place] [address] Oct, [facility] [address] [id number] [address] [place] [address] Jul, [facility] [address] [id number] [address] [place] [address] Apr, [facility] [address] [id number] [address] [place] [address] Mar, IMMUNIZATIONS No Known Immunizations SOCIAL HISTORY [...]
--- OUTSIDE RECORDS SUMMARY | 2019-11-10 09:01 | XMS REPORT ---
Author Author Marcela PERES Organization [facility] Address [address] [place] [address] Care Team Providers Care Manager Of Administration Name Role Phone VANESSA PERES Unavailable PROBLEMS Type Condition ICD9-CM Code FUH45-IB Code Onset Dates Condition S tatus SNOMED Code Problem Loss of weight 783.21 Active 86038 5001 Problem Other malaise and fatigue 780.79 Acti ve 195082834 Problem Pain in soft tissues of limb 729.5 A ctive 14958643 Problem Other specified cardiac dysrhythmias 427.89 Active 618741514 Problem Other and unspecified hyperlipidemia 272.4 Active 66665915 Problem Muscle weakness (generalized) 728.87 Active 36999492 Problem Cervicalgia 723.1 Active 49749106 Problem Unspecified arthropathy, site 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.90 Active 964328601 Problem Unspecified symptom associated with female genital organs 625.9 Active [id number] ALLERGIES No Information ENCOUNTERS Encounter Location Date Diagnosis [facility] [address] [id number] Sep, Dental caries K02.9 [facility] [address] [id number] Sep, [facility] [address] [id number] Sep, Dental examination Z01.20 [facility] [address] [id number] May, Dental examination Z01.20 [facility] [address] [id number] Apr, Dental examination Z01.20 [facility] [address] [id number] [place] [address] Dec, [facility] [address] [id number] Feb, Dental examination Z01.20 [facility] [address] [id number] Jan, Dental caries K02.9 [facility] [address] [id number] Dec, Dental examination Z01.20 [facility] [address] [id number] Oct, Dental examination Z01.20 [facility] [address] [id number] Aug, Encounter for dental examination Z01.20 [facility] [address] [address] Aug, [facility] [address] [address] Mar, [facility] [address] [id number] Mar, Dental examination V72.2 [facility] [address] [address] Feb, Unspecified arthropathy, site unspecifie d 716.90 ; Psychotic disorder 298.9 and Seborrhea 706.3 [facility] [address] [address] Jan, [facility] [address] [address] Dec, Dizziness 780.4 and Pain in soft tissues of limb 729.5 [facility] [address] [address] Dec, [facility] [address] [address] Oct, [facility] [address] [address] Oct, [facility] [address] [address] 19 Sep, 2014 [facility] [address] [facility] [id number] [place] [address] Sep, 2014 [facility] [address] [facility] [id number] [facility] [place] [address] Sep, 2014 [facility] [address] [id number] [place] [address] Sep, 2014 [facility] [address] [id number] [place] [address] 13 Aug, 2014 [facility] [address] [facility] [id number] [place] [address] Aug, [facility] [address] [id number] [place] [address] May, [facility] [address] [id number] [place] [address] 17 May, 2014 [facility] [address] [id number] [place] [address] May, [facility] [address] [id number] [place] [address] May, [facility] [address] [id number] [place] [address] May, [facility] [address] [id number] [place] [address] 17 May, 2014 [facility] [address] [id number] [place] [address] 17 May, 2014 [facility] [address] [id number] [place] [address] 14 May, 2014 [facility] [address] [id number] [place] [address] 14 May, 2014 [facility] [address] [id number] [place] [address] May, [facility] [address] [id number] [place] [address] May, [facility] [address] [id number] [place] [address] Apr, [facility] [address] [facility] [id number] [place] [address] Apr, [facility] [address] [facility] [id number] [place] [address] Feb, [facility] [address] [id number] [place] [address] Feb, [facility] [address] [id number] [place] [address] Feb, [facility] [address] [facility] [id number] [place] [address] Feb, [facility] [address] [id number] [place] [address] Jan, [facility] [address] [id number] [place] [address] Jan, [facility] [address] [id number] [place] [address] Jan, [facility] [address] [id number] [place] [address] Jan, [facility] [address] [id number] [place] [address] Dec, [facility] [address] [id number] [place] [address] Dec, [facility] [address] [id number] [place] [address] Dec, [facility] [address] [id number] [place] [address] Dec, [facility] [address] [id number] [place] [address] Oct, [facility] [address] [id number] [place] [address] Oct, [facility] [address] [id number] [place] [address] Oct, [facility] [address] [id number] [place] [address] 14 Oct, 2013 [facility] [address] [id number] [place] [address] 11 Oct, 2013 [facility] [address] [id number] [place] [address] 11 Oct, 2013 [facility] [address] [id number] [place] [address] 07 Oct, 2013 [facility] [address] [id number] [place] [address] 15 Jul, 2013 [facility] [address] [id number] [place] [address] 15 Jul, 2013 [facility] [address] [id number] [place] [address] Jun, [facility] [address] [id number] [place] [address] Jun, [facility] [address] [id number] [place] [address] Jun, [facility] [address] [id number] [place] [address] Jun, [facility] [address] [id number] [place] [address] May, [facility] [address] [id number] [place] [address] May, [facility] [address] [id number] [place] [address] May, [facility] [address] [id number] [place] [address] May, [facility] [address] [id number] [place] [address] Apr, [facility] [address] [id number] [place] [address] Apr, [facility] [address] [id number] [place] [address] Apr, [facility] [address] [facility] [id number] [place] [address] Apr, [facility] [address] [id number] [place] [address] Apr, [facility] [address] [id number] [place] [address] Mar, [facility] [address] [id number] [place] [address] Mar, [facility] [address] [id number] [place] [address] Mar, [facility] [address] [id number] [place] [address] Mar, [facility] [address] [id number] [place] [address] Feb, [facility] [address] [id number] [place] [address] Jan, [facility] [address] [id number] [place] [address] Jan, [facility] [address] [id number] [place] [address] Jan, [facility] [address] [id number] [place] [address] Jan, [facility] [address] [id number] [place] [address] Jan, [facility] [address] [id number] [place] [address] Jan, [facility] [address] [id number] [place] [address] Jan, [facility] [address] [id number] [place] [address] November, [facility] [address] [id number] [place] [address] Sep, [facility] [address] [id number] [place] [address] Sep, [facility] [address] [id number] [place] [address] Aug, [facility] [address] [id number] [place] [address] Aug, [facility] [address] [id number] [place] [address] Jul, [facility] [address] [id number] [place] [address] Jul, [facility] [address] [id number] [place] [address] Jul, [facility] [address] [id number] [place] [address] May, [facility] [address] [id number] [place] [address] Apr, [facility] [address] [id number] [place] [address] Apr, [facility] [address] [id number] [place] [address] Apr, [facility] [address] [id number] [place] [address] Apr, [facility] [address] [id number] [place] [address] Apr, [facility] [address] [id number] [place] [address] Mar, [facility] [address] [id number] [place] [address] Feb, [facility] [address] [id number] [place] [address] Feb, [facility] [address] [id number] [place] [address] Jan, [facility] [address] [id number] [place] [address] Jan, [facility] [address] [id number] [place] [address] 10 Nov, 2011 [facility] [address] [id number] [place] [address] 20 Oct, 2011 [facility] [address] [id number] [place] [address] 19 Oct, 2011 [facility] [address] [id number] [place] [address] 18 Oct, 2011 [facility] [address] [id number] [place] [address] 18 Oct, 2011 [facility] [address] [id number] [place] [address] 16 Oct, 2011 [facility] [address] [id number] [place] [address] 13 Oct, 2011 [facility] [address] [id number] [place] [address] 12 Oct, 2011 [facility] [address] [id number] [place] [address] 11 Oct, 2011 [facility] [address] [id number] [place] [address] 10 Oct, 2011 [facility] [address] [id number] [place] [address] 10 Oct, 2011 [facility] [address] [id number] [place] [address] Sep, [facility] [address] [id number] [place] [address] 10 Aug, 2011 [facility] [address] [id number] [place] [address] Jun, [facility] [address] [id number] [place] [address] 14 Jun, 2011 [facility] [address] [id number] [place] [address] 14 Jun, 2011 [facility] [address] [id number] [place] [address] 14 Jun, 2011 [facility] [address] [id number] [place] [address] 07 Jun, 2011 [facility] [address] [id number] [place] [address] 02 May, 2011 [facility] [address] [id number] [place] [address] 26 Apr, 2011 [facility] [address] [id number] [place] [address] 10 Apr, 2011 [facility] [address] [id number] [place] [address] 15 Oct, 2010 [facility] [address] [id number] [place] [address] 09 Jun, 2010 [facility] [address] [id number] [place] [address] 07 Jun, 2010 [facility] [address] [id number] [place] [address] Jun, [facility] [address] [id number] [place] [address] Jun, [facility] [address] [id number] [place] [address] May, [facility] [address] [id number] [place] [address] May, [facility] [address] [id number] [place] [address] May, [facility] [address] [id number] [place] [address] Apr, [facility] [address] [id number] [place] [address] Apr, [facility] [address] [id number] [place] [address] Apr, [facility] [address] [id number] [place] [address] 12 Oct, 2009 [facility] [address] [facility] [id number] [place] [address] Jul, [facility] [address] [facility] [id number] [place] [address] Apr, [facility] [address] [facility] [id number] [place] [address] Mar, IMMUNIZATIONS No Known Immunizations SOCIAL HISTORY [...]
--- OUTSIDE RECORDS SUMMARY | 2019-11-10 09:01 | XMS REPORT ---
Author Author Marcela PERES Organization [facility] Address [address] [place] [address] Care Team Providers Care Receptionist Clerk Name Role Phone VANESSA PERES Unavailable PROBLEMS Type Condition ICD9-CM Code [id number] Code Onset Dates Condition S tatus SNOMED Code Problem Loss of weight 783.21 Active 00877 5001 Problem Other malaise and fatigue 780.79 Acti ve 508726216 Problem Pain in soft tissues of limb 729.5 A ctive 08453114 Problem Other specified cardiac dysrhythmias 427.89 Active 921362064 Problem Other and unspecified hyperlipidemia 272.4 Active 56841630 Problem Muscle weakness (generalized) 728.87 Active 08647073 Problem Cervicalgia 723.1 Active 34461032 Problem Unspecified arthropathy, site 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.90 Active 020371151 Problem Unspecified symptom associated with female genital organs 625.9 Active [id number] ALLERGIES No Information ENCOUNTERS Encounter Location Date Diagnosis [facility] [address] [id number] Sep, Dental caries K02.9 [facility] [address] [id number] Sep, [facility] [address] [id number] Sep, Dental examination Z01.20 [facility] [address] [id number] May, Dental examination Z01.20 [facility] [address] [id number] Apr, Dental examination Z01.20 [facility] [address] [id number] [place] [address] Dec, [facility] [address] [id number] Feb, Dental examination Z01.20 [facility] [address] [id number] Jan, Dental caries K02.9 [facility] [address] [id number] Dec, Dental examination Z01.20 [facility] [address] [id number] Oct, Dental examination Z01.20 [facility] [address] [id number] Aug, Encounter for dental examination Z01.20 [facility] [address] [address] Aug, [facility] [address] [address] Mar, [facility] [address] [id number] Mar, Dental examination V72.2 [facility] [address] [address] Feb, Unspecified arthropathy, site unspecifie d 716.90 ; Psychotic disorder 298.9 and Seborrhea 706.3 [facility] [address] [address] Jan, [facility] [address] [address] Dec, Dizziness 780.4 and Pain in soft tissues of limb 729.5 [facility] [address] [address] Dec, [facility] [address] [address] Oct, [facility] [address] [address] Oct, [facility] [address] [address] 19 Sep, 2014 [facility] [address] [facility] [id number] [place] [address] Sep, 2014 [facility] [address] [facility] [id number] [facility] [place] [address] Sep, 2014 [facility] [address] [id number] [place] [address] Sep, 2014 [facility] [address] [id number] [place] [address] 13 Aug, 2014 [facility] [address] [facility] [id number] [place] [address] Aug, [facility] [address] [id number] [place] [address] May, [facility] [address] [id number] [place] [address] 17 May, 2014 [facility] [address] [id number] [place] [address] May, [facility] [address] [id number] [place] [address] May, [facility] [address] [id number] [place] [address] May, [facility] [address] [id number] [place] [address] 17 May, 2014 [facility] [address] [id number] [place] [address] 17 May, 2014 [facility] [address] [id number] [place] [address] 14 May, 2014 [facility] [address] [id number] [place] [address] 14 May, 2014 [facility] [address] [id number] [place] [address] May, [facility] [address] [id number] [place] [address] May, [facility] [address] [id number] [place] [address] Apr, [facility] [address] [facility] [id number] [place] [address] Apr, [facility] [address] [facility] [id number] [place] [address] Feb, [facility] [address] [id number] [place] [address] Feb, [facility] [address] [id number] [place] [address] Feb, [facility] [address] [facility] [id number] [place] [address] Feb, [facility] [address] [id number] [place] [address] Jan, [facility] [address] [id number] [place] [address] Jan, [facility] [address] [id number] [place] [address] Jan, [facility] [address] [id number] [place] [address] Jan, [facility] [address] [id number] [place] [address] Dec, [facility] [address] [id number] [place] [address] Dec, [facility] [address] [id number] [place] [address] Dec, [facility] [address] [id number] [place] [address] Dec, [facility] [address] [id number] [place] [address] Oct, [facility] [address] [id number] [place] [address] Oct, [facility] [address] [id number] [place] [address] Oct, [facility] [address] [id number] [place] [address] 14 Oct, 2013 [facility] [address] [id number] [place] [address] 11 Oct, 2013 [facility] [address] [id number] [place] [address] 11 Oct, 2013 [facility] [address] [id number] [place] [address] 07 Oct, 2013 [facility] [address] [id number] [place] [address] 15 Jul, 2013 [facility] [address] [id number] [place] [address] 15 Jul, 2013 [facility] [address] [id number] [place] [address] Jun, [facility] [address] [id number] [place] [address] Jun, [facility] [address] [id number] [place] [address] Jun, [facility] [address] [id number] [place] [address] Jun, [facility] [address] [id number] [place] [address] May, [facility] [address] [id number] [place] [address] May, [facility] [address] [id number] [place] [address] May, [facility] [address] [id number] [place] [address] May, [facility] [address] [id number] [place] [address] Apr, [facility] [address] [id number] [place] [address] Apr, [facility] [address] [id number] [place] [address] Apr, [facility] [address] [facility] [id number] [place] [address] Apr, [facility] [address] [id number] [place] [address] Apr, [facility] [address] [id number] [place] [address] Mar, [facility] [address] [id number] [place] [address] Mar, [facility] [address] [id number] [place] [address] Mar, [facility] [address] [id number] [place] [address] Mar, [facility] [address] [id number] [place] [address] Feb, [facility] [address] [id number] [place] [address] Jan, [facility] [address] [id number] [place] [address] Jan, [facility] [address] [id number] [place] [address] Jan, [facility] [address] [id number] [place] [address] Jan, [facility] [address] [id number] [place] [address] Jan, [facility] [address] [id number] [place] [address] Jan, [facility] [address] [id number] [place] [address] Jan, [facility] [address] [id number] [place] [address] November, [facility] [address] [id number] [place] [address] Sep, [facility] [address] [id number] [place] [address] Sep, [facility] [address] [id number] [place] [address] Aug, [facility] [address] [id number] [place] [address] Aug, [facility] [address] [id number] [place] [address] Jul, [facility] [address] [id number] [place] [address] Jul, [facility] [address] [id number] [place] [address] Jul, [facility] [address] [id number] [place] [address] May, [facility] [address] [id number] [place] [address] Apr, [facility] [address] [id number] [place] [address] Apr, [facility] [address] [id number] [place] [address] Apr, [facility] [address] [id number] [place] [address] Apr, [facility] [address] [id number] [place] [address] Apr, [facility] [address] [id number] [place] [address] Mar, [facility] [address] [id number] [place] [address] Feb, [facility] [address] [id number] [place] [address] Feb, [facility] [address] [id number] [place] [address] Jan, [facility] [address] [id number] [place] [address] Jan, [facility] [address] [id number] [place] [address] 10 Nov, 2011 [facility] [address] [id number] [place] [address] 20 Oct, 2011 [facility] [address] [id number] [place] [address] 19 Oct, 2011 [facility] [address] [id number] [place] [address] 18 Oct, 2011 [facility] [address] [id number] [place] [address] 18 Oct, 2011 [facility] [address] [id number] [place] [address] 16 Oct, 2011 [facility] [address] [id number] [place] [address] 13 Oct, 2011 [facility] [address] [id number] [place] [address] 12 Oct, 2011 [facility] [address] [id number] [place] [address] 11 Oct, 2011 [facility] [address] [id number] [place] [address] 10 Oct, 2011 [facility] [address] [id number] [place] [address] 10 Oct, 2011 [facility] [address] [id number] [place] [address] Sep, [facility] [address] [id number] [place] [address] 10 Aug, 2011 [facility] [address] [id number] [place] [address] Jun, [facility] [address] [id number] [place] [address] 14 Jun, 2011 [facility] [address] [id number] [place] [address] 14 Jun, 2011 [facility] [address] [id number] [place] [address] 14 Jun, 2011 [facility] [address] [id number] [place] [address] 07 Jun, 2011 [facility] [address] [id number] [place] [address] 02 May, 2011 [facility] [address] [id number] [place] [address] 26 Apr, 2011 [facility] [address] [id number] [place] [address] 10 Apr, 2011 [facility] [address] [id number] [place] [address] 15 Oct, 2010 [facility] [address] [id number] [place] [address] 09 Jun, 2010 [facility] [address] [id number] [place] [address] 07 Jun, 2010 [facility] [address] [id number] [place] [address] Jun, [facility] [address] [id number] [place] [address] Jun, [facility] [address] [id number] [place] [address] May, [facility] [address] [id number] [place] [address] May, [facility] [address] [id number] [place] [address] May, [facility] [address] [id number] [place] [address] Apr, [facility] [address] [id number] [place] [address] Apr, [facility] [address] [id number] [place] [address] Apr, [facility] [address] [id number] [place] [address] 12 Oct, 2009 [facility] [address] [facility] [id number] [place] [address] Jul, [facility] [address] [facility] [id number] [place] [address] Apr, [facility] [address] [facility] [id number] [place] [address] Mar, IMMUNIZATIONS No Known Immunizations SOCIAL HISTORY [...]
--- OUTSIDE RECORDS SUMMARY | 2019-11-10 09:02 | XMS REPORT ---
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 Name Role Phone VANESSA PERES Unavailable PROBLEMS Type Condition ICD9-CM Code [id number] Code Onset Dates Condition S tatus SNOMED Code Problem Loss of weight 783.21 Active 80269 5001 Problem Other malaise and fatigue 780.79 Acti ve 713543878 Problem Pain in soft tissues of limb 729.5 A ctive 70205669 Problem Other specified cardiac dysrhythmias 427.89 Active 565979323 Problem Other and unspecified hyperlipidemia 272.4 Active 11226024 Problem Muscle weakness (generalized) 728.87 Active 04336158 Problem Cervicalgia 723.1 Active 70439731 Problem Unspecified arthropathy, site 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.90 Active 858476503 Problem Unspecified symptom associated with female genital organs 625.9 Active [id number] ALLERGIES No Information ENCOUNTERS Encounter Location Date Diagnosis [facility] [address] [facility] [id number] [address] [place] [address] [id number] Sep, Dental caries K02.9 [facility] [address] [facility] [id number] [address] [place] [address] [id number] Sep, [facility] [address] [facility] [id number] [address] [place] [address] [id number] Sep, Dental examination Z01.20 [facility] [address] [facility] [id number] [address] [place] [address] [id number] May, Dental examination Z01.20 [facility] [address] [facility] [id number] [address] [place] [address] [id number] Apr, Dental examination Z01.20 [facility] [address] [facility] [id number] [address] [place] [phone] Dec, [facility] [address] [id number] [address] [place] [address] [id number] Feb, Dental examination Z01.20 [facility] [address] [id number] [address] [place] [address] [id number] Jan, Dental caries K02.9 [facility] [address] [id number] [address] [place] [address] [id number] Dec, Dental examination Z01.20 [facility] [address] [id number] [address] [place] [address] [id number] Oct, Dental examination Z01.20 [facility] [address] [id number] [address] [place] [address] [id number] Aug, Encounter for dental examina tion Z01.20 [facility] [address] [id number] [address] [place] [phone] Aug, [facility] [address] [facility] [id number] [address] [place] [phone] Mar, [facility] [address] [id number] [address] [place] [address] [id number] Mar, Dental examination V72.2 [facility] [address] [facility] [id number] [address] [place] [phone] Feb, Unspecified arthropathy, sit e 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.90 ; Psychotic disorder 298.9 and Seborrhea 706.3 [facility] [address] [facility] [id number] [address] [place] [phone] Jan, [facility] [address] [facility] [id number] [address] [place] [phone] Dec, Dizziness 780.4 and Pain in soft tissues of limb 729.5 [facility] [address] [facility] [id number] [address] [place] [phone] Dec, [facility] [address] [facility] [id number] [address] [place] [phone] Oct, [facility] [address] [id number] [address] [place] [address], [place] [id number] 13 Oct, 2014 [facility] [address] [id number] [address] [place] [address], [place] [id number] 19 Sep, 2014 [facility] [address] [id number] [address] [place] [address], [place] [id number] 19 Sep, 2014 [facility] [address] [id number] [address] [place] [address], [place] [id number] 11 Sep, 2014 [facility] [address] [id number] [address] [place] [address], [place] [id number] 11 Sep, 2014 [facility] [address] [id number] [address] [place] [address], [place] [id number] 13 Aug, 2014 [facility] [address] [id number] [address] [place] [address], [place] [id number] Aug, [facility] [address] [id number] [address] [place] [address], [place] [id number] 17 May, 2014 [facility] [address] [id number] [address] [place] [address], [place] [id number] 17 May, 2014 [facility] [address] [id number] [address] [place] [address], [place] [id number] 17 May, 2014 [facility] [address] [id number] [address] [place] [address], [place] [id number] 17 May, 2014 [facility] [address] [id number] [address] [place] [address], [place] [id number] 17 May, 2014 [facility] [address] [id number] [address] [place] [address], [place] [id number] 17 May, 2014 [facility] [address] [id number] [address] [place] [address], [place] [id number] 17 May, 2014 [facility] [address] [id number] [address] [place] [address], [place] [id number] 14 May, 2014 [facility] [address] [id number] [address] [place] [address], [place] [id number] May, [facility] [address] [id number] [address] [place] [address], [place] [id number] May, [facility] [address] [id number] [address] [place] [address], [place] [id number] May, [facility] [address] [id number] [address] [place] [address], [place] [id number] Apr, [facility] [address] [id number] [address] [place] [address], [place] [id number] Apr, [facility] [address] [id number] [address] [place] [address], [place] [id number] Feb, [facility] [address] [id number] [address] [place] [address], [place] [id number] Feb, [facility] [address] [id number] [address] [place] [address], [place] [id number] Feb, [facility] [address] [id number] [address] [place] [address], [place] [id number] Feb, [facility] [address] [id number] [address] [place] [address], [place] [id number] Jan, [facility] [address] [id number] [address] [place] [address], [place] [id number] Jan, [facility] [address] [id number] [address] [place] [address], [place] [id number] Jan, [facility] [address] [id number] [address] [place] [address], [place] [id number] Jan, [facility] [address] [id number] [address] [place] [address], [place] [id number] Dec, [facility] [address] [id number] [address] [place] [address], [place] [id number] Dec, [facility] [address] [id number] [address] [place] [address], [place] [id number] Dec, [facility] [address] [id number] [address] [place] [address], [place] [id number] Dec, [facility] [address] [id number] [address] [place] [address], [place] [id number] Oct, [facility] [address] [id number] [address] [place] [address], [place] [id number] Oct, [facility] [address] [id number] [address] [place] [address], [place] [id number] Oct, [facility] [address] [id number] [address] [place] [address], [place] [id number] Oct, [facility] [address] [id number] [address] [place] [address], [place] [id number] Oct, [facility] [address] [id number] [address] [place] [address], [place] [id number] Oct, [facility] [address] [id number] [address] [place] [address], [place] [id number] Oct, [facility] [address] [id number] [address] [place] [address], [place] [id number] Jul, [facility] [address] [id number] [address] [place] [address], [place] [id number] Jul, [facility] [address] [id number] [address] [place] [address], [place] [id number] Jun, [facility] [address] [id number] [address] [place] [address], [place] [id number] Jun, [facility] [address] [id number] [address] [place] [address], [place] [id number] Jun, [facility] [address] [id number] [address] [place] [address], [place] [id number] Jun, [facility] [address] [id number] [address] [place] [address], [place] [id number] May, [facility] [address] [id number] [address] [place] [address], [place] [id number] May, [facility] [address] [id number] [address] [place] [address], [place] [id number] May, [facility] [address] [id number] [address] [place] [address], [place] [id number] May, [facility] [address] [id number] [address] [place] [address], [place] [id number] Apr, [facility] [address] [id number] [address] [place] [address], [place] [id number] Apr, [facility] [address] [id number] [address] [place] [address], [place] [id number] Apr, [facility] [address] [id number] [address] [place] [address], [place] [id number] Apr, [facility] [address] [id number] [address] [place] [address], [place] [id number] Apr, [facility] [address] [id number] [address] [place] [address], [place] [id number] Mar, [facility] [address] [id number] [address] [place] [address], [place] [id number] Mar, [facility] [address] [id number] [address] [place] [address], [place] [id number] Mar, [facility] [address] [id number] [address] [place] [address], [place] [id number] Mar, [facility] [address] [id number] [address] [place] [phone] Feb, [facility] [address] [id number] [address] [place] [address], [place] [id number] Jan, [facility] [address] [id number] [address] [place] [address], [place] [id number] Jan, [facility] [address] [id number] [address] [place] [address], [place] [id number] Jan, [facility] [address] [id number] [address] [place] [address], [place] [id number] Jan, [facility] [address] [id number] [address] [place] [address], [place] [id number] Jan, [facility] [address] [id number] [address] [place] [address], [place] [id number] Jan, [facility] [address] [id number] [address] [place] [address], [place] [id number] Jan, [facility] [address] [id number] [address] [place] [address], [place] [id number] November, [facility] [address] [id number] [address] [place] [address], [place] [id number] Sep, [facility] [address] [id number] [address] [place] [address], [place] [id number] Sep, [facility] [address] [id number] [address] [place] [address], [place] [id number] Aug, [facility] [address] [id number] [address] [place] [address], [place] [id number] Aug, [facility] [address] [id number] [address] [place] [address], [place] [id number] Jul, [facility] [address] [id number] [address] [place] [address], [place] [id number] Jul, [facility] [address] [id number] [address] [place] [address], [place] [id number] Jul, [facility] [address] [id number] [address] [place] [address], [place] [id number] May, [facility] [address] [id number] [address] [place] [address], [place] [id number] Apr, [facility] [address] [id number] [address] [place] [address], [place] [id number] Apr, [facility] [address] [id number] [address] [place] [address], [place] [id number] Apr, [facility] [address] [id number] [address] [place] [address], [place] [id number] Apr, [facility] [address] [id number] [address] [place] [address], [place] [id number] Apr, [facility] [address] [id number] [address] [place] [address], [place] [id number] Mar, [facility] [address] [id number] [address] [place] [address], [place] [id number] Feb, [facility] [address] [id number] [address] [place] [address], [place] [id number] Feb, [facility] [address] [id number] [address] [place] [address], [place] [id number] Jan, [facility] [address] [id number] [address] [place] [address], [place] [id number] Jan, [facility] [address] [id number] [address] [place] [address], [place] [id number] November, [facility] [address] [id number] [address] [place] [address], [place] [id number] 20 Oct, 2011 [facility] [address] [id number] [address] [place] [address], [place] [id number] 19 Oct, 2011 [facility] [place] [address] [id number] [address] [place] [address], [place] [id number] 18 Oct, 2011 [facility] [address] [id number] [address] [place] [address], [place] [id number] 18 Oct, 2011 [facility] [address] [id number] [address] [place] [address], [place] [id number] 16 Oct, 2011 [facility] [address] [id number] [address] [place] [address], [place] [id number] 13 Oct, 2011 [facility] [address] [id number] [address] [place] [address], [place] [id number] 12 Oct, 2011 [facility] [address] [id number] [address] [place] [address], [place] [id number] 11 Oct, 2011 [facility] [address] [id number] [address] [place] [address], [place] [id number] 10 Oct, 2011 [facility] [address] [id number] [address] [place] [address], [place] [id number] 10 Oct, 2011 [facility] [address] [id number] [address] [place] [address], [place] [id number] Sep, [facility] [address] [id number] [address] [place] [address], [place] [id number] 10 Aug, 2011 [facility] [address] [id number] [address] [place] [address], [place] [id number] Jun, [facility] [address] [id number] [address] [place] [address], [place] [id number] 14 Jun, 2011 [facility] [address] [id number] [address] [place] [address], [place] [id number] 14 Jun, 2011 [facility] [address] [id number] [address] [place] [address], [place] [id number] 14 Jun, 2011 [facility] [address] [id number] [address] [place] [address], [place] [id number] 07 Jun, 2011 [facility] [address] [id number] [address] [place] [address], [place] [id number] 02 May, 2011 [facility] [address] [id number] [address] [place] [address], [place] [id number] Apr, [facility] [address] [id number] [address] [place] [address], [place] [id number] 10 Apr, 2011 [facility] [address] [id number] [address] [place] [address], [place] [id number] 15 Oct, 2010 [facility] [address] [id number] [address] [place] [address], [place] [id number] 09 Jun, 2010 [facility] [address] [id number] [address] [place] [address], [place] [id number] 07 Jun, 2010 [facility] [address] [id number] [address] [place] [id number] Jun, [facility] [address] [id number] [address] [place] [phone] Jun, [facility] [address] [id number] [address] [place] [id number] May, [facility] [address] [id number] [address] [place] [id number] May, [facility] [address] [id number] [address] [place] [phone] May, [facility] [address] [id number] [address] [place] [phone] Apr, [facility] [address] [id number] [address] [place] [phone] Apr, [facility] [address] [id number] [address] [place] [phone] Apr, [facility] [address] [id number] [address] [place] [id number] Oct, [facility] [address] [id number] [address] [place] [phone] Jul, [facility] [address] [id number] [address] [place] [phone] Apr, [facility] [address] [id number] [address] [place] [phone] Mar, IMMUNIZATIONS No Known Immunizations SOCIAL HISTORY [...]
--- OUTSIDE RECORDS SUMMARY | 2019-11-10 09:02 | XMS REPORT ---
Author Author Marcela PERES Organization [facility] Address [address] [place] [address] Care Team Providers Care Spreading Machine Operator Name Role Phone VANESSA PERES Unavailable PROBLEMS Type Condition ICD9-CM Code XRI83-UH Code Onset Dates Condition S tatus SNOMED Code Problem Loss of weight 783.21 Active 15111 5001 Problem Other malaise and fatigue 780.79 Acti ve 730419424 Problem Pain in soft tissues of limb 729.5 A ctive 25728632 Problem Other specified cardiac dysrhythmias 427.89 Active 433632829 Problem Other and unspecified hyperlipidemia 272.4 Active 95349310 Problem Muscle weakness (generalized) 728.87 Active 86557663 Problem Cervicalgia 723.1 Active 19821922 Problem Unspecified arthropathy, site 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.90 Active 340705241 Problem Unspecified symptom associated with female genital organs 625.9 Active [id number] ALLERGIES No Information ENCOUNTERS Encounter Location Date Diagnosis [facility] [address] [facility] [id number] [address] [place] [address] [id number] Sep, Dental caries K02.9 [facility] [address] [facility] [id number] [address] [place] [address] [id number] Sep, [facility] [address] [facility] [id number] [address] [place] [address] [id number] Sep, Dental examination Z01.20 [facility] [address] [facility] [id number] [address] [place] [address] [id number] May, Dental examination Z01.20 [facility] [address] [facility] [id number] [address] [place] [address] [id number] Apr, Dental examination Z01.20 [facility] [address] [facility] [id number] [address] [place] [address] Dec, [facility] [address] [id number] [address] [place] [address] [id number] Feb, Dental examination Z01.20 [facility] [address] [id number] [address] [place] [address] [id number] Jan, Dental caries K02.9 [facility] [address] [id number] [address] [place] [address] [id number] Dec, Dental examination Z01.20 [facility] [address] [id number] [address] [place] [address] [id number] Oct, Dental examination Z01.20 [facility] [address] [id number] [address] [place] [address] [id number] Aug, Encounter for dental examina tion Z01.20 [facility] [address] [id number] [address] [place] [address] Aug, [facility] [address] [facility] [id number] [address] [place] [address] Mar, [facility] [address] [id number] [address] [place] [address] [id number] Mar, Dental examination V72.2 [facility] [address] [facility] [id number] [address] [place] [address] Feb, Unspecified arthropathy, sit e 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.90 ; Psychotic disorder 298.9 and Seborrhea 706.3 [facility] [address] [facility] [id number] [address] [place] [address] Jan, [facility] [address] [facility] [id number] [address] [place] [address] Dec, Dizziness 780.4 and Pain in soft tissues of limb 729.5 [facility] [address] [facility] [id number] [address] [place] [address] Dec, [facility] [address] [facility] [id number] [address] [place] [address] Oct, [facility] [address] [id number] [address] [place] [address], [place] [address] 13 Oct, 2014 [facility] [address] [id number] [address] [place] [address], [place] [address] 19 Sep, 2014 [facility] [address] [id number] [address] [place] [address], [place] [address] 19 Sep, 2014 [facility] [address] [id number] [address] [place] [address], [place] [address] 11 Sep, 2014 [facility] [address] [id number] [address] [place] [address], [place] [address] 11 Sep, 2014 [facility] [address] [id number] [address] [place] [address], [place] [address] 13 Aug, 2014 [facility] [address] [id number] [address] [place] [address], [place] [address] Aug, [facility] [address] [id number] [address] [place] [address], [place] [address] 17 May, 2014 [facility] [address] [id number] [address] [place] [address], [place] [address] 17 May, 2014 [facility] [address] [id number] [address] [place] [address], [place] [address] 17 May, 2014 [facility] [address] [id number] [address] [place] [address], [place] [address] 17 May, 2014 [facility] [address] [id number] [address] [place] [address], [place] [address] 17 May, 2014 [facility] [address] [id number] [address] [place] [address], [place] [address] 17 May, 2014 [facility] [address] [id number] [address] [place] [address], [place] [address] 17 May, 2014 [facility] [address] [id number] [address] [place] [address], [place] [address] 14 May, 2014 [facility] [address] [id number] [address] [place] [address], [place] [address] May, [facility] [address] [id number] [address] [place] [address], [place] [address] May, [facility] [address] [id number] [address] [place] [address], [place] [address] May, [facility] [address] [id number] [address] [place] [address], [place] [address] Apr, [facility] [address] [id number] [address] [place] [address], [place] [address] Apr, [facility] [address] [id number] [address] [place] [address], [place] [address] Feb, [facility] [address] [id number] [address] [place] [address], [place] [address] Feb, [facility] [address] [id number] [address] [place] [address], [place] [address] Feb, [facility] [address] [id number] [address] [place] [address], [place] [address] Feb, [facility] [address] [id number] [address] [place] [address], [place] [address] Jan, [facility] [address] [id number] [address] [place] [address], [place] [address] Jan, [facility] [address] [id number] [address] [place] [address], [place] [address] Jan, [facility] [address] [id number] [address] [place] [address], [place] [address] Jan, [facility] [address] [id number] [address] [place] [address], [place] [address] Dec, [facility] [address] [id number] [address] [place] [address], [place] [address] Dec, [facility] [address] [id number] [address] [place] [address], [place] [address] Dec, [facility] [address] [id number] [address] [place] [address], [place] [address] Dec, [facility] [address] [id number] [address] [place] [address], [place] [address] Oct, [facility] [address] [id number] [address] [place] [address], [place] [address] Oct, [facility] [address] [id number] [address] [place] [address], [place] [address] Oct, [facility] [address] [id number] [address] [place] [address], [place] [address] Oct, [facility] [address] [id number] [address] [place] [address], [place] [address] Oct, [facility] [address] [id number] [address] [place] [address], [place] [address] Oct, [facility] [address] [id number] [address] [place] [address], [place] [address] Oct, [facility] [address] [id number] [address] [place] [address], [place] [address] Jul, [facility] [address] [id number] [address] [place] [address], [place] [address] Jul, [facility] [address] [id number] [address] [place] [address], [place] [address] Jun, [facility] [address] [id number] [address] [place] [address], [place] [address] Jun, [facility] [address] [id number] [address] [place] [address], [place] [address] Jun, [facility] [address] [id number] [address] [place] [address], [place] [address] Jun, [facility] [address] [id number] [address] [place] [address], [place] [address] May, [facility] [address] [id number] [address] [place] [address], [place] [address] May, [facility] [address] [id number] [address] [place] [address], [place] [address] May, [facility] [address] [id number] [address] [place] [address], [place] [address] May, [facility] [address] [id number] [address] [place] [address], [place] [address] Apr, [facility] [address] [id number] [address] [place] [address], [place] [address] Apr, [facility] [address] [id number] [address] [place] [address], [place] [address] Apr, [facility] [address] [id number] [address] [place] [address], [place] [address] Apr, [facility] [address] [id number] [address] [place] [address], [place] [address] Apr, [facility] [address] [id number] [address] [place] [address], [place] [address] Mar, [facility] [address] [id number] [address] [place] [address], [place] [address] Mar, [facility] [address] [id number] [address] [place] [address], [place] [address] Mar, [facility] [address] [id number] [address] [place] [address], [place] [address] Mar, [facility] [address] [id number] [address] [place] [address] Feb, [facility] [address] [id number] [address] [place] [address], [place] [address] Jan, [facility] [address] [id number] [address] [place] [address], [place] [address] Jan, [facility] [address] [id number] [address] [place] [address], [place] [address] Jan, [facility] [address] [id number] [address] [place] [address], [place] [address] Jan, [facility] [address] [id number] [address] [place] [address], [place] [address] Jan, [facility] [address] [id number] [address] [place] [address], [place] [address] Jan, [facility] [address] [id number] [address] [place] [address], [place] [address] Jan, [facility] [address] [id number] [address] [place] [address], [place] [address] November, [facility] [address] [id number] [address] [place] [address], [place] [address] Sep, [facility] [address] [id number] [address] [place] [address], [place] [address] Sep, [facility] [address] [id number] [address] [place] [address], [place] [address] Aug, [facility] [address] [id number] [address] [place] [address], [place] [address] Aug, [facility] [address] [id number] [address] [place] [address], [place] [address] Jul, [facility] [address] [id number] [address] [place] [address], [place] [address] Jul, [facility] [address] [id number] [address] [place] [address], [place] [address] Jul, [facility] [address] [id number] [address] [place] [address], [place] [address] May, [facility] [address] [id number] [address] [place] [address], [place] [address] Apr, [facility] [address] [id number] [address] [place] [address], [place] [address] Apr, [facility] [address] [id number] [address] [place] [address], [place] [address] Apr, [facility] [address] [id number] [address] [place] [address], [place] [address] Apr, [facility] [address] [id number] [address] [place] [address], [place] [address] Apr, [facility] [address] [id number] [address] [place] [address], [place] [address] Mar, [facility] [address] [id number] [address] [place] [address], [place] [address] Feb, [facility] [address] [id number] [address] [place] [address], [place] [address] Feb, [facility] [address] [id number] [address] [place] [address], [place] [address] Jan, [facility] [address] [id number] [address] [place] [address], [place] [address] Jan, [facility] [address] [id number] [address] [place] [address], [place] [address] November, [facility] [address] [id number] [address] [place] [address], [place] [address] 20 Oct, 2011 [facility] [address] [id number] [address] [place] [address], [place] [address] 19 Oct, 2011 [facility] [address] [id number] [address] [place] [address], [place] [address] 18 Oct, 2011 [facility] [address] [id number] [address] [place] [address], [place] [address] 18 Oct, 2011 [facility] [address] [id number] [address] [place] [address], [place] [address] 16 Oct, 2011 [facility] [address] [id number] [address] [place] [address], [place] [address] 13 Oct, 2011 [facility] [address] [id number] [address] [place] [address], [place] [address] 12 Oct, 2011 [facility] [address] [id number] [address] [place] [address], [place] [address] 11 Oct, 2011 [facility] [address] [id number] [address] [place] [address], [place] [address] 10 Oct, 2011 [facility] [address] [id number] [address] [place] [address], [place] [address] 10 Oct, 2011 [facility] [address] [id number] [address] [place] [address], [place] [address] Sep, [facility] [address] [id number] [address] [place] [address], [place] [address] 10 Aug, 2011 [facility] [address] [id number] [address] [place] [address], [place] [address] Jun, [facility] [address] [id number] [address] [place] [address], [place] [address] 14 Jun, 2011 [facility] [address] [id number] [address] [place] [address], [place] [address] 14 Jun, 2011 [facility] [address] [id number] [address] [place] [address], [place] [address] 14 Jun, 2011 [facility] [address] [id number] [address] [place] [address], [place] [address] 07 Jun, 2011 [facility] [address] [id number] [address] [place] [address], [place] [address] 02 May, 2011 [facility] [address] [id number] [address] [place] [address], [place] [address] Apr, [facility] [address] [id number] [address] [place] [address], [place] [address] 10 Apr, 2011 [facility] [address] [id number] [address] [place] [address], [place] [address] 15 Oct, 2010 [facility] [address] [id number] [address] [place] [address], [place] [address] 09 Jun, 2010 [facility] [address] [id number] [address] [place] [address], [place] [address] 07 Jun, 2010 [facility] [address] [id number] [address] [place] [address] Jun, [facility] [address] [id number] [address] [place] [address] Jun, [facility] [address] [id number] [address] [place] [address] May, [facility] [address] [id number] [address] [place] [address] May, [facility] [address] [id number] [address] [place] [address] May, [facility] [address] [id number] [address] [place] [address] Apr, [facility] [address] [id number] [address] [place] [address] Apr, [facility] [address] [id number] [address] [place] [address] Apr, [facility] [address] [id number] [address] [place] [address] Oct, [facility] [address] [id number] [address] [place] [address] Jul, [facility] [address] [id number] [address] [place] [address] Apr, [facility] [address] [id number] [address] [place] [address] Mar, IMMUNIZATIONS No Known Immunizations SOCIAL HISTORY [...]
--- OUTSIDE RECORDS SUMMARY | 2019-11-10 09:02 | XMS REPORT ---
Author Author Marcela PERES Organization [facility] Address [address] [place] [address] Care Team Providers Care Installation Tech Name Role Phone VANESSA PERES Unavailable PROBLEMS Type Condition ICD9-CM Code YVP78-LQ Code Onset Dates Condition S tatus SNOMED Code Problem Loss of weight 783.21 Active 81858 5001 Problem Other malaise and fatigue 780.79 Acti ve 545449128 Problem Pain in soft tissues of limb 729.5 A ctive 96328279 Problem Other specified cardiac dysrhythmias 427.89 Active 580178558 Problem Other and unspecified hyperlipidemia 272.4 Active 19689353 Problem Muscle weakness (generalized) 728.87 Active 39186397 Problem Cervicalgia 723.1 Active 69257714 Problem Unspecified arthropathy, site 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.90 Active 567065484 Problem Unspecified symptom associated with female genital organs 625.9 Active [id number] ALLERGIES No Information ENCOUNTERS Encounter Location Date Diagnosis [facility] [address] [id number] Sep, Dental caries K02.9 [facility] [address] [id number] Sep, [facility] [address] [id number] Sep, Dental examination Z01.20 [facility] [address] [id number] May, Dental examination Z01.20 [facility] [address] [id number] Apr, Dental examination Z01.20 [facility] [address] [id number] [place] [address] Dec, [facility] [address] [id number] Feb, Dental examination Z01.20 [facility] [address] [id number] Jan, Dental caries K02.9 [facility] [address] [id number] Dec, Dental examination Z01.20 [facility] [address] [id number] Oct, Dental examination Z01.20 [facility] [address] [id number] Aug, Encounter for dental examination Z01.20 [facility] [address] [address] Aug, [facility] [address] [address] Mar, [facility] [address] [id number] Mar, Dental examination V72.2 [facility] [address] [address] Feb, Unspecified arthropathy, site unspecifie d 716.90 ; Psychotic disorder 298.9 and Seborrhea 706.3 [facility] [address] [address] Jan, [facility] [address] [address] Dec, Dizziness 780.4 and Pain in soft tissues of limb 729.5 [facility] [address] [address] Dec, [facility] [address] [address] Oct, [facility] [address] [address] Oct, [facility] [address] [address] 19 Sep, 2014 [facility] [address] [facility] [id number] [place] [address] Sep, 2014 [facility] [address] [facility] [id number] [facility] [place] [address] Sep, 2014 [facility] [address] [id number] [place] [address] Sep, 2014 [facility] [address] [id number] [place] [address] 13 Aug, 2014 [facility] [address] [facility] [id number] [place] [address] Aug, [facility] [address] [id number] [place] [address] May, [facility] [address] [id number] [place] [address] 17 May, 2014 [facility] [address] [id number] [place] [address] May, [facility] [address] [id number] [place] [address] May, [facility] [address] [id number] [place] [address] May, [facility] [address] [id number] [place] [address] 17 May, 2014 [facility] [address] [id number] [place] [address] 17 May, 2014 [facility] [address] [id number] [place] [address] 14 May, 2014 [facility] [address] [id number] [place] [address] 14 May, 2014 [facility] [address] [id number] [place] [address] May, [facility] [address] [id number] [place] [address] May, [facility] [address] [id number] [place] [address] Apr, [facility] [address] [facility] [id number] [place] [address] Apr, [facility] [address] [facility] [id number] [place] [address] Feb, [facility] [address] [id number] [place] [address] Feb, [facility] [address] [id number] [place] [address] Feb, [facility] [address] [facility] [id number] [place] [address] Feb, [facility] [address] [id number] [place] [address] Jan, [facility] [address] [id number] [place] [address] Jan, [facility] [address] [id number] [place] [address] Jan, [facility] [address] [id number] [place] [address] Jan, [facility] [address] [id number] [place] [address] Dec, [facility] [address] [id number] [place] [address] Dec, [facility] [address] [id number] [place] [address] Dec, [facility] [address] [id number] [place] [address] Dec, [facility] [address] [id number] [place] [address] Oct, [facility] [address] [id number] [place] [address] Oct, [facility] [address] [id number] [place] [address] Oct, [facility] [address] [id number] [place] [address] 14 Oct, 2013 [facility] [address] [id number] [place] [address] 11 Oct, 2013 [facility] [address] [id number] [place] [address] 11 Oct, 2013 [facility] [address] [id number] [place] [address] 07 Oct, 2013 [facility] [address] [id number] [place] [address] 15 Jul, 2013 [facility] [address] [id number] [place] [address] 15 Jul, 2013 [facility] [address] [id number] [place] [address] Jun, [facility] [id number] [place] [address] Jun, [facility] [address] [id number] [place] [address] Jun, [facility] [address] [id number] [place] [address] Jun, [facility] [address] [id number] [place] [address] May, [facility] [address] [id number] [place] [address] May, [facility] [address] [id number] [place] [address] May, [facility] [address] [id number] [place] [address] May, [facility] [address] [id number] [place] [address] Apr, [facility] [address] [id number] [place] [address] Apr, [facility] [address] [id number] [place] [address] Apr, [facility] [address] [facility] [id number] [place] [address] Apr, [facility] [address] [id number] [place] [address] Apr, [facility] [address] [id number] [place] [address] Mar, [facility] [address] [id number] [place] [address] Mar, [facility] [address] [id number] [place] [address] Mar, [facility] [address] [id number] [place] [address] Mar, [facility] [address] [id number] [place] [address] Feb, [facility] [address] [id number] [place] [address] Jan, [facility] [address] [id number] [place] [address] Jan, [facility] [address] [id number] [place] [address] Jan, [facility] [address] [id number] [place] [address] Jan, [facility] [address] [id number] [place] [address] Jan, [facility] [address] [id number] [place] [address] Jan, [facility] [address] [id number] [place] [address] Jan, [facility] [address] [id number] [place] [address] November, [facility] [address] [id number] [place] [address] Sep, [facility] [address] [id number] [place] [address] Sep, [facility] [address] [id number] [place] [address] Aug, [facility] [address] [id number] [place] [address] Aug, [facility] [address] [id number] [place] [address] Jul, [facility] [address] [id number] [place] [address] Jul, [facility] [address] [id number] [place] [address] Jul, [facility] [address] [id number] [place] [address] May, [facility] [address] [id number] [place] [address] Apr, [facility] [address] [id number] [place] [address] Apr, [facility] [address] [id number] [place] [address] Apr, [facility] [address] [id number] [place] [address] Apr, [facility] [address] [id number] [place] [address] Apr, [facility] [address] [id number] [place] [address] Mar, [facility] [address] [id number] [place] [address] Feb, [facility] [address] [id number] [place] [address] Feb, [facility] [address] [id number] [place] [address] Jan, [facility] [address] [id number] [place] [address] Jan, [facility] [address] [id number] [place] [address] 10 Nov, 2011 [facility] [address] [id number] [place] [address] 20 Oct, 2011 [facility] [address] [id number] [place] [address] 19 Oct, 2011 [facility] [address] [id number] [place] [address] 18 Oct, 2011 [facility] [address] [id number] [place] [address] 18 Oct, 2011 [facility] [address] [id number] [place] [address] 16 Oct, 2011 [facility] [address] [id number] [place] [address] 13 Oct, 2011 [facility] [address] [id number] [place] [address] 12 Oct, 2011 [facility] [address] [id number] [place] [address] 11 Oct, 2011 [facility] [address] [id number] [place] [address] 10 Oct, 2011 [facility] [address] [id number] [place] [address] 10 Oct, 2011 [facility] [address] [id number] [place] [address] Sep, [facility] [address] [id number] [place] [address] 10 Aug, 2011 [facility] [address] [id number] [place] [address] Jun, [facility] [address] [id number] [place] [address] 14 Jun, 2011 [facility] [address] [id number] [place] [address] 14 Jun, 2011 [facility] [address] [id number] [place] [address] 14 Jun, 2011 [facility] [address] [id number] [place] [address] 07 Jun, 2011 [facility] [address] [id number] [place] [address] 02 May, 2011 [facility] [address] [id number] [place] [address] 26 Apr, 2011 [facility] [address] [id number] [place] [address] 10 Apr, 2011 [facility] [address] [id number] [place] [address] 15 Oct, 2010 [facility] [address] [id number] [place] [address] 09 Jun, 2010 [facility] [address] [id number] [place] [address] 07 Jun, 2010 [facility] [address] [id number] [place] [address] Jun, [facility] [address] [id number] [place] [address] Jun, [facility] [address] [id number] [place] [address] May, [facility] [address] [id number] [place] [address] May, [facility] [address] [id number] [place] [address] May, [facility] [address] [id number] [place] [address] Apr, [facility] [address] [id number] [place] [address] Apr, [facility] [address] [id number] [place] [address] Apr, [facility] [address] [id number] [place] [address] 12 Oct, 2009 [facility] [address] [facility] [id number] [place] [address] Jul, [facility] [address] [facility] [id number] [place] [address] Apr, [facility] [address] [facility] [id number] [place] [address] Mar, IMMUNIZATIONS No Known Immunizations SOCIAL HISTORY [...]
--- OUTSIDE RECORDS SUMMARY | 2019-11-10 09:02 | XMS REPORT ---
Author Author Marcela PERES Organization [facility] Address [address] [place] [address] Care Team Providers Care Closing Manager Name Role Phone VANESSA PERES Unavailable PROBLEMS Type Condition ICD9-CM Code VOT23-VY Code Onset Dates Condition S tatus SNOMED Code Problem Loss of weight 783.21 Active 27058 5001 Problem Other malaise and fatigue 780.79 Acti ve 788627059 Problem Pain in soft tissues of limb 729.5 A ctive 35094038 Problem Other specified cardiac dysrhythmias 427.89 Active 902635941 Problem Other and unspecified hyperlipidemia 272.4 Active 53285956 Problem Muscle weakness (generalized) 728.87 Active 90217758 Problem Cervicalgia 723.1 Active 87925382 Problem Unspecified arthropathy, site 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.90 Active 886638888 Problem Unspecified symptom associated with female genital organs 625.9 Active [id number] ALLERGIES No Information ENCOUNTERS Encounter Location Date Diagnosis [facility] [address] [id number] Sep, Dental caries K02.9 [facility] [address] [id number] Sep, [facility] [address] [id number] Sep, Dental examination Z01.20 [facility] [address] [id number] May, Dental examination Z01.20 [facility] [address] [id number] Apr, Dental examination Z01.20 [facility] [address] [id number] [place] [address] Dec, [facility] [address] [id number] Feb, Dental examination Z01.20 [facility] [address] [id number] Jan, Dental caries K02.9 [facility] [address] [id number] Dec, Dental examination Z01.20 [facility] [address] [id number] Oct, Dental examination Z01.20 [facility] [address] [id number] Aug, Encounter for dental examination Z01.20 [facility] [address] [address] Aug, [facility] [address] [address] Mar, [facility] [address] [id number] Mar, Dental examination V72.2 [facility] [address] [address] Feb, Unspecified arthropathy, site unspecifie d 716.90 ; Psychotic disorder 298.9 and Seborrhea 706.3 [facility] [address] [address] Jan, [facility] [address] [address] Dec, Dizziness 780.4 and Pain in soft tissues of limb 729.5 [facility] [address] [address] Dec, [facility] [address] [address] Oct, [facility] [address] [address] Oct, [facility] [address] [address] 19 Sep, 2014 [facility] [address] [facility] [id number] [place] [address] Sep, 2014 [facility] [address] [facility] [id number] [facility] [address] Sep, 2014 [facility] [address] [id number] [place] [address] Sep, 2014 [facility] [address] [id number] [place] [address] 13 Aug, 2014 [facility] [address] [facility] [id number] [place] [address] Aug, [facility] [address] [id number] [place] [address] May, [facility] [address] [id number] [place] [address] 17 May, 2014 [facility] [address] [id number] [place] [address] May, [facility] [address] [id number] [place] [address] May, [facility] [address] [id number] [place] [address] May, [facility] [address] [id number] [place] [address] 17 May, 2014 [facility] [address] [id number] [place] [address] 17 May, 2014 [facility] [address] [id number] [place] [address] 14 May, 2014 [facility] [address] [id number] [place] [address] 14 May, 2014 [facility] [address] [id number] [place] [address] May, [facility] [address] [id number] [place] [address] May, [facility] [address] [id number] [place] [address] Apr, [facility] [address] [facility] [id number] [place] [address] Apr, [facility] [address] [facility] [id number] [place] [address] Feb, [facility] [address] [id number] [place] [address] Feb, [facility] [address] [id number] [place] [address] Feb, [facility] [address] [facility] [id number] [place] [address] Feb, [facility] [address] [id number] [place] [address] Jan, [facility] [address] [id number] [place] [address] Jan, [facility] [address] [id number] [place] [address] Jan, [facility] [address] [id number] [place] [address] Jan, [facility] [address] [id number] [place] [address] Dec, [facility] [address] [id number] [place] [address] Dec, [facility] [address] [id number] [place] [address] Dec, [facility] [address] [id number] [place] [address] Dec, [facility] [address] [id number] [place] [address] Oct, [facility] [address] [id number] [place] [address] Oct, [facility] [address] [id number] [place] [address] Oct, [facility] [address] [id number] [place] [address] 14 Oct, 2013 [facility] [address] [id number] [place] [address] 11 Oct, 2013 [facility] [address] [id number] [place] [address] 11 Oct, 2013 [facility] [address] [id number] [place] [address] 07 Oct, 2013 [facility] [address] [id number] [place] [address] 15 Jul, 2013 [facility] [address] [id number] [place] [address] 15 Jul, 2013 [facility] [address] [id number] [place] [address] Jun, [facility] [address] [id number] [place] [address] Jun, [facility] [address] [id number] [place] [address] Jun, [facility] [address] [id number] [place] [address] Jun, [facility] [address] [id number] [place] [address] May, [facility] [address] [id number] [place] [address] May, [facility] [address] [id number] [place] [address] May, [facility] [address] [id number] [place] [address] May, [facility] [address] [id number] [place] [address] Apr, [facility] [address] [id number] [place] [address] Apr, [facility] [address] [id number] [place] [address] Apr, [facility] [address] [facility] [id number] [place] [address] Apr, [facility] [address] [id number] [place] [address] Apr, [facility] [address] [id number] [place] [address] Mar, [facility] [address] [id number] [place] [address] Mar, [facility] [address] [id number] [place] [address] Mar, [facility] [address] [id number] [place] [address] Mar, [facility] [address] [id number] [place] [address] Feb, [facility] [address] [id number] [place] [address] Jan, [facility] [address] [id number] [place] [address] Jan, [facility] [address] [id number] [place] [address] Jan, [facility] [address] [id number] [place] [address] Jan, [facility] [address] [id number] [place] [address] Jan, [facility] [address] [id number] [place] [address] Jan, [facility] [address] [id number] [place] [address] Jan, [facility] [address] [id number] [place] [address] November, [facility] [address] [id number] [place] [address] Sep, [facility] [address] [id number] [place] [address] Sep, [facility] [address] [id number] [place] [address] Aug, [facility] [address] [id number] [place] [address] Aug, [facility] [address] [id number] [place] [address] Jul, [facility] [address] [id number] [place] [address] Jul, [facility] [address] [id number] [place] [address] Jul, [facility] [address] [id number] [place] [address] May, [facility] [address] [id number] [place] [address] Apr, [facility] [address] [id number] [place] [address] Apr, [facility] [address] [id number] [place] [address] Apr, [facility] [address] [id number] [place] [address] Apr, [facility] [address] [id number] [place] [address] Apr, [facility] [address] [id number] [place] [address] Mar, [facility] [address] [id number] [place] [address] Feb, [facility] [address] [id number] [place] [address] Feb, [facility] [address] [id number] [place] [address] Jan, [facility] [address] [id number] [place] [address] Jan, [facility] [address] [id number] [place] [address] 10 Nov, 2011 [facility] [address] [id number] [place] [address] 20 Oct, 2011 [facility] [address] [id number] [place] [address] 19 Oct, 2011 [facility] [address] [id number] [place] [address] 18 Oct, 2011 [facility] [address] [id number] [place] [address] 18 Oct, 2011 [facility] [address] [id number] [place] [address] 16 Oct, 2011 [facility] [address] [id number] [place] [address] 13 Oct, 2011 [facility] [address] [id number] [place] [address] 12 Oct, 2011 [facility] [address] [id number] [place] [address] 11 Oct, 2011 [facility] [address] [id number] [place] [address] 10 Oct, 2011 [facility] [address] [id number] [place] [address] 10 Oct, 2011 [facility] [address] [id number] [place] [address] Sep, [facility] [address] [id number] [place] [address] 10 Aug, 2011 [facility] [address] [id number] [place] [address] Jun, [facility] [address] [id number] [place] [address] 14 Jun, 2011 [facility] [address] [id number] [place] [address] 14 Jun, 2011 [facility] [address] [id number] [place] [address] 14 Jun, 2011 [facility] [address] [id number] [place] [address] 07 Jun, 2011 [facility] [address] [id number] [place] [address] 02 May, 2011 [facility] [address] [id number] [place] [address] 26 Apr, 2011 [facility] [address] [id number] [place] [address] 10 Apr, 2011 [facility] [address] [id number] [place] [address] 15 Oct, 2010 [facility] [address] [id number] [place] [address] 09 Jun, 2010 [facility] [address] [id number] [place] [address] 07 Jun, 2010 [facility] [address] [id number] [place] [address] Jun, [facility] [address] [id number] [place] [address] Jun, [facility] [address] [id number] [place] [address] May, [facility] [address] [id number] [place] [address] May, [facility] [address] [id number] [place] [address] May, [facility] [address] [id number] [place] [address] Apr, [facility] [address] [id number] [place] [address] Apr, [facility] [address] [id number] [place] [address] Apr, [facility] [address] [id number] [place] [address] 12 Oct, 2009 [facility] [address] [facility] [id number] [place] [address] Jul, [facility] [address] [facility] [id number] [place] [address] Apr, [facility] [address] [facility] [id number] [place] [address] Mar, IMMUNIZATIONS No Known Immunizations SOCIAL HISTORY [...]
--- OUTSIDE RECORDS SUMMARY | 2019-11-10 09:02 | XMS REPORT ---
Author Author Marcela PERES Organization [facility] Address [address] [place] [address] Care Team Providers Care Cokeman Name Role Phone VANESSA PERES Unavailable PROBLEMS Type Condition ICD9-CM Code EAS61-UF Code Onset Dates Condition S tatus SNOMED Code Problem Loss of weight 783.21 Active 60611 5001 Problem Other malaise and fatigue 780.79 Acti ve 998750683 Problem Pain in soft tissues of limb 729.5 A ctive 63322867 Problem Other specified cardiac dysrhythmias 427.89 Active 027172205 Problem Other and unspecified hyperlipidemia 272.4 Active 45229600 Problem Muscle weakness (generalized) 728.87 Active 15902724 Problem Cervicalgia 723.1 Active 49113613 Problem Unspecified arthropathy, site 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.90 Active 277569647 Problem Unspecified symptom associated with female genital organs 625.9 Active [id number] ALLERGIES No Information ENCOUNTERS Encounter Location Date Diagnosis [facility] [address] [facility] [id number] [address] [place] [address] [id number] Sep, Dental caries K02.9 [facility] [address] [facility] [id number] [address] [place] [address] [id number] Sep, [facility] [address] [facility] [id number] [address] [place] [address] [id number] Sep, Dental examination Z01.20 [facility] [address] [facility] [id number] [address] [place] [address] [id number] May, Dental examination Z01.20 [facility] [address] [facility] [id number] [address] [place] [address] [id number] Apr, Dental examination Z01.20 [facility] [address] [facility] [id number] [address] [place] [phone] Dec, [facility] [address] [id number] [address] [place] [address] [id number] Feb, Dental examination Z01.20 [facility] [address] [id number] [address] [place] [address] [id number] Jan, Dental caries K02.9 [facility] [address] [id number] [address] [place] [address] [id number] Dec, Dental examination Z01.20 [facility] [address] [id number] [address] [place] [address] [id number] Oct, Dental examination Z01.20 [facility] [address] [id number] [address] [place] [address] [id number] Aug, Encounter for dental examina tion Z01.20 [facility] [address] [id number] [address] [place] [phone] Aug, [facility] [address] [facility] [id number] [address] [place] [phone] Mar, [facility] [address] [id number] [address] [place] [address] [id number] Mar, Dental examination V72.2 [facility] [address] [facility] [id number] [address] [place] [phone] Feb, Unspecified arthropathy, sit e 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.90 ; Psychotic disorder 298.9 and Seborrhea 706.3 [facility] [address] [facility] [id number] [address] [place] [phone] Jan, [facility] [address] [facility] [id number] [address] [place] [phone] Dec, Dizziness 780.4 and Pain in soft tissues of limb 729.5 [facility] [address] [facility] [id number] [address] [place] [phone] Dec, [facility] [address] [facility] [id number] [address] [place] [phone] Oct, [facility] [address] [id number] [address] [place] [address], [place] [phone] 13 Oct, 2014 [facility] [address] [id number] [address] [place] [address], [place] [phone] 19 Sep, 2014 [facility] [address] [id number] [address] [place] [address], [place] [address] 19 Sep, 2014 [facility] [address] [id number] [address] [place] [address], [place] [id number] 11 Sep, 2014 [facility] [address] [id number] [address] [place] [address], [place] [address] 11 Sep, 2014 [facility] [address] [id number] [address] [place] [address], [place] [address] 13 Aug, 2014 [facility] [address] [id number] [address] [place] [address], [place] [address] Aug, [facility] [address] [id number] [address] [place] [address], [place] [address] 17 May, 2014 [facility] [address] [id number] [address] [place] [address], [place] [address] 17 May, 2014 [facility] [address] [id number] [address] [place] [address], [place] [address] 17 May, 2014 [facility] [address] [id number] [address] [place] [address], [place] [address] 17 May, 2014 [facility] [address] [id number] [address] [place] [address], [place] [phone] 17 May, 2014 [facility] [address] [id number] [address] [place] [address], [place] [address] 17 May, 2014 [facility] [address] [id number] [address] [place] [address], [place] [address] 17 May, 2014 [facility] [address] [id number] [address] [place] [address], [place] [address] 14 May, 2014 [facility] [address] [id number] [address] [place] [address], [place] [address] May, [facility] [address] [id number] [address] [place] [address], [place] [address] May, [facility] [address] [id number] [address] [place] [address], [place] [address] May, [facility] [address] [id number] [address] [place] [address], [place] [address] Apr, [facility] [address] [id number] [address] [place] [address], [place] [address] Apr, [facility] [address] [id number] [address] [place] [address], [place] [address] Feb, [facility] [address] [id number] [address] [place] [address], [place] [address] Feb, [facility] [address] [id number] [address] [place] [address], [place] [address] Feb, [facility] [address] [id number] [address] [place] [address], [place] [address] Feb, [facility] [address] [id number] [address] [place] [address], [place] [address] Jan, [facility] [address] [id number] [address] [place] [address], [place] [address] Jan, [facility] [address] [id number] [address] [place] [address], [place] [address] Jan, [facility] [address] [id number] [address] [place] [address], [place] [address] Jan, [facility] [address] [id number] [address] [place] [address], [place] [address] Dec, [facility] [address] [id number] [address] [place] [address], [place] [address] Dec, [facility] [address] [id number] [address] [place] [address], [place] [address] Dec, [facility] [address] [id number] [address] [place] [address], [place] [address] Dec, [facility] [address] [id number] [address] [place] [address], [place] [address] Oct, [facility] [address] [id number] [address] [place] [address], [place] [address] Oct, [facility] [address] [id number] [address] [place] [address], [place] [address] Oct, [facility] [address] [id number] [address] [place] [address], [place] [address] Oct, [facility] [address] [id number] [address] [place] [address], [place] [address] Oct, [facility] [address] [id number] [address] [place] [address], [place] [address] Oct, [facility] [address] [id number] [address] [place] [address], [place] [phone] Oct, [facility] [address] [id number] [address] [place] [address], [place] [address] Jul, [facility] [address] [id number] [address] [place] [address], [place] [address] Jul, [facility] [address] [id number] [address] [place] [address], [place] [address] Jun, [facility] [address] [id number] [address] [place] [address], [place] [address] Jun, [facility] [address] [id number] [address] [place] [address], [place] [address] Jun, [facility] [address] [id number] [address] [place] [address], [place] [address] Jun, [facility] [address] [id number] [address] [place] [address], [place] [address] May, [facility] [address] [id number] [address] [place] [address], [place] [address] May, [facility] [address] [id number] [address] [place] [address], [place] [address] May, [facility] [address] [id number] [address] [place] [address], [place] [address] May, [facility] [address] [id number] [address] [place] [address], [place] [address] Apr, [facility] [address] [id number] [address] [place] [address], [place] [address] Apr, [facility] [address] [id number] [address] [place] [address], [place] [address] Apr, [facility] [address] [id number] [address] [place] [address], [place] [address] Apr, [facility] [address] [id number] [address] [place] [address], [place] [address] Apr, [facility] [address] [id number] [address] [place] [address], [place] [address] Mar, [facility] [address] [id number] [address] [place] [address], [place] [address] Mar, [facility] [address] [id number] [address] [place] [address], [place] [address] Mar, [facility] [address] [id number] [address] [place] [address], [place] [address] Mar, [facility] [address] [id number] [address] [place] [phone] Feb, [facility] [address] [id number] [address] [place] [address], [place] [address] Jan, [facility] [address] [id number] [address] [place] [address], [place] [address] Jan, [facility] [address] [id number] [address] [place] [address], [place] [address] Jan, [facility] [address] [id number] [address] [place] [address], [place] [address] Jan, [facility] [address] [id number] [address] [place] [address], [place] [address] Jan, [facility] [address] [id number] [address] [place] [address], [place] [address] Jan, [facility] [address] [id number] [address] [place] [address], [place] [address] Jan, [facility] [address] [id number] [address] [place] [address], [place] [address] November, [facility] [address] [id number] [address] [place] [address], [place] [address] Sep, [facility] [address] [id number] [address] [place] [address], [place] [address] Sep, [facility] [address] [id number] [address] [place] [address], [place] [address] Aug, [facility] [address] [id number] [address] [place] [address], [place] [address] Aug, [facility] [address] [id number] [address] [place] [address], [place] [address] Jul, [facility] [address] [id number] [address] [place] [address], [place] [address] Jul, [facility] [address] [id number] [address] [place] [address], [place] [address] Jul, [facility] [address] [id number] [address] [place] [address], [place] [address] May, [facility] [address] [id number] [address] [place] [address], [place] [address] Apr, [facility] [address] [id number] [address] [place] [address], [place] [address] Apr, [facility] [address] [id number] [address] [place] [address], [place] [address] Apr, [facility] [address] [id number] [address] [place] [address], [place] [address] Apr, [facility] [address] [id number] [address] [place] [address], [place] [address] Apr, [facility] [address] [id number] [address] [place] [address], [place] [address] Mar, [facility] [address] [id number] [address] [place] [address], [place] [address] Feb, [facility] [address] [id number] [address] [place] [address], [place] [address] Feb, [facility] [address] [id number] [address] [place] [address], [place] [address] Jan, [facility] [address] [id number] [address] [place] [address], [place] [address] Jan, [facility] [address] [id number] [address] [place] [address], [place] [address] November, [facility] [address] [id number] [address] [place] [address], [place] [address] 20 Oct, 2011 [facility] [address] [id number] [address] [place] [address], [place] [address] 19 Oct, 2011 [facility] [address] [id number] [address] [place] [address], [place] [address] 18 Oct, 2011 [facility] [address] [id number] [address] [place] [address], [place] [address] 18 Oct, 2011 [facility] [address] [id number] [address] [place] [address], [place] [address] 16 Oct, 2011 [facility] [address] [id number] [address] [place] [address], [place] [address] 13 Oct, 2011 [facility] [address] [id number] [address] [place] [address], [place] [address] 12 Oct, 2011 [facility] [address] [id number] [address] [place] [address], [place] [address] 11 Oct, 2011 [facility] [address] [id number] [address] [place] [address], [place] [address] 10 Oct, 2011 [facility] [address] [id number] [address] [place] [address], [place] [address] 10 Oct, 2011 [facility] [address] [id number] [address] [place] [address], [place] [address] Sep, [facility] [address] [id number] [address] [place] [address], [place] [address] 10 Aug, 2011 [facility] [address] [id number] [address] [place] [address], [place] [address] Jun, [facility] [address] [id number] [address] [place] [address], [place] [address] 14 Jun, 2011 [facility] [address] [id number] [address] [place] [address], [place] [address] 14 Jun, 2011 [facility] [address] [id number] [address] [place] [address], [place] [address] 14 Jun, 2011 [facility] [address] [id number] [address] [place] [address], [place] [address] 07 Jun, 2011 [facility] [address] [id number] [address] [place] [address], [place] [address] 02 May, 2011 [facility] [address] [id number] [address] [place] [address], [place] [address] Apr, [facility] [address] [id number] [address] [place] [address], [place] [address] 10 Apr, 2011 [facility] [address] [id number] [address] [place] [address], [place] [address] 15 Oct, 2010 [facility] [address] [id number] [address] [place] [address], [place] [address] 09 Jun, 2010 [facility] [address] [id number] [address] [place] [address], [place] [address] 07 Jun, 2010 [facility] [address] [id number] [address] [place] [phone] Jun, [facility] [address] [id number] [address] [place] [phone] Jun, [facility] [address] [id number] [address] [place] [phone] May, [facility] [address] [id number] [address] [place] [phone] May, [facility] [address] [id number] [address] [place] [phone] May, [facility] [address] [id number] [address] [place] [phone] Apr, [facility] [address] [id number] [address] [place] [phone] Apr, [facility] [address] [id number] [address] [place] [phone] Apr, [facility] [address] [id number] [address] [place] [phone] Oct, [facility] [address] [id number] [address] [place] [phone] Jul, [facility] [address] [id number] [address] [place] [phone] Apr, [facility] [address] [id number] [address] [place] [phone] Mar, IMMUNIZATIONS No Known Immunizations SOCIAL HISTORY [...]
--- OUTSIDE RECORDS SUMMARY | 2019-11-10 09:02 | XMS REPORT ---
Author Author Marcela PERES Organization [facility] Address [address] [place] [address] Care Team Providers Care Story Writer Name Role Phone VANESSA PERES Unavailable PROBLEMS Type Condition ICD9-CM Code TNO60-QW Code Onset Dates Condition S tatus SNOMED Code Problem Loss of weight 783.21 Active 92111 5001 Problem Other malaise and fatigue 780.79 Acti ve 970730288 Problem Pain in soft tissues of limb 729.5 A ctive 20883664 Problem Other specified cardiac dysrhythmias 427.89 Active 405834381 Problem Other and unspecified hyperlipidemia 272.4 Active 67368116 Problem Muscle weakness (generalized) 728.87 Active 53943728 Problem Cervicalgia 723.1 Active 46115753 Problem Unspecified arthropathy, site 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.90 Active 956587503 Problem Unspecified symptom associated with female genital organs 625.9 Active [id number] ALLERGIES No Information ENCOUNTERS Encounter Location Date Diagnosis [facility] [address] [facility] [id number] [address] [place] [address] [id number] Sep, Dental caries K02.9 [facility] [address] [facility] [id number] [address] [place] [address] [id number] Sep, [facility] [address] [facility] [id number] [address] [place] [address] [id number] Sep, Dental examination Z01.20 [facility] [address] [facility] [id number] [address] [place] [address] [id number] May, Dental examination Z01.20 [facility] [address] [facility] [id number] [address] [place] [address] [id number] Apr, Dental examination Z01.20 [facility] [address] [facility] [id number] [address] [place] [address] Dec, [facility] [address] [id number] [address] [place] [address] [id number] Feb, Dental examination Z01.20 [facility] [address] [id number] [address] [place] [address] [id number] Jan, Dental caries K02.9 [facility] [address] [id number] [address] [place] [address] [id number] Dec, Dental examination Z01.20 [facility] [address] [id number] [address] [place] [address] [id number] Oct, Dental examination Z01.20 [facility] [address] [id number] [address] [place] [address] [id number] Aug, Encounter for dental examina tion Z01.20 [facility] [address] [id number] [address] [place] [phone] Aug, [facility] [address] [facility] [id number] [address] [place] [phone] Mar, [facility] [address] [id number] [address] [place] [address] [id number] Mar, Dental examination V72.2 [facility] [address] [facility] [id number] [address] [place] [phone] Feb, Unspecified arthropathy, sit e 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.90 ; Psychotic disorder 298.9 and Seborrhea 706.3 [facility] [address] [facility] [id number] [address] [place] [phone] Jan, [facility] [address] [facility] [id number] [address] [place] [address] Dec, Dizziness 780.4 and Pain in soft tissues of limb 729.5 [facility] [address] [facility] [id number] [address] [place] [phone] Dec, [facility] [address] [facility] [id number] [address] [place] [phone] Oct, [facility] [address] [id number] [address] [place] [address], [place] [address] 13 Oct, 2014 [facility] [address] [id number] [address] [place] [address], [place] [address] 19 Sep, 2014 [facility] [address] [id number] [address] [place] [address], [place] [address] 19 Sep, 2014 [facility] [address] [id number] [address] [place] [address], [place] [address] 11 Sep, 2014 [facility] [address] [id number] [address] [place] [address], [place] [address] 11 Sep, 2014 [facility] [address] [id number] [address] [place] [address], [place] [address] 13 Aug, 2014 [facility] [address] [id number] [address] [place] [address], [place] [address] Aug, [facility] [address] [id number] [address] [place] [address], [place] [address] 17 May, 2014 [facility] [address] [id number] [address] [place] [address], [place] [address] 17 May, 2014 [facility] [address] [id number] [address] [place] [address], [place] [address] 17 May, 2014 [facility] [address] [id number] [address] [place] [address], [place] [address] 17 May, 2014 [facility] [address] [id number] [address] [place] [address], [place] [address] 17 May, 2014 [facility] [address] [id number] [address] [place] [address], [place] [address] 17 May, 2014 [facility] [address] [id number] [address] [place] [address], [place] [address] 17 May, 2014 [facility] [address] [id number] [address] [place] [address], [place] [address] 14 May, 2014 [facility] [address] [id number] [address] [place] [address], [place] [address] May, [facility] [address] [id number] [address] [place] [address], [place] [address] May, [facility] [address] [id number] [address] [place] [address], [place] [address] May, [facility] [address] [id number] [address] [place] [address], [place] [address] Apr, [facility] [address] [id number] [address] [place] [address], [place] [address] Apr, [facility] [address] [id number] [address] [place] [address], [place] [address] Feb, [facility] [address] [id number] [address] [place] [address], [place] [address] Feb, [facility] [address] [id number] [address] [place] [address], [place] [address] Feb, [facility] [address] [id number] [address] [place] [address], [place] [address] Feb, [facility] [address] [id number] [address] [place] [address], [place] [address] Jan, [facility] [address] [id number] [address] [place] [address], [place] [address] Jan, [facility] [address] [id number] [address] [place] [address], [place] [address] Jan, [facility] [address] [id number] [address] [place] [address], [place] [address] Jan, [facility] [address] [id number] [address] [place] [address], [place] [address] Dec, [facility] [address] [id number] [address] [place] [address], [place] [address] Dec, [facility] [address] [id number] [address] [place] [address], [place] [address] Dec, [facility] [address] [id number] [address] [place] [address], [place] [address] Dec, [facility] [address] [id number] [address] [place] [address], [place] [address] Oct, [facility] [address] [id number] [address] [place] [address], [place] [address] Oct, [facility] [address] [id number] [address] [place] [address], [place] [address] Oct, [facility] [address] [id number] [address] [place] [address], [place] [address] Oct, [facility] [address] [id number] [address] [place] [address], [place] [address] Oct, [facility] [address] [id number] [address] [place] [address], [place] [address] Oct, [facility] [address] [id number] [address] [place] [address], [place] [address] Oct, [facility] [address] [id number] [address] [place] [address], [place] [address] Jul, [facility] [address] [id number] [address] [place] [address], [place] [address] Jul, [facility] [address] [id number] [address] [place] [address], [place] [address] Jun, [facility] [address] [id number] [address] [place] [address], [place] [address] Jun, [facility] [address] [id number] [address] [place] [address], [place] [address] Jun, [facility] [address] [id number] [address] [place] [address], [place] [address] Jun, [facility] [address] [id number] [address] [place] [address], [place] [address] May, [facility] [address] [id number] [address] [place] [address], [place] [address] May, [facility] [address] [id number] [address] [place] [address], [place] [address] May, [facility] [address] [id number] [address] [place] [address], [place] [address] May, [facility] [address] [id number] [address] [place] [address], [place] [address] Apr, [facility] [address] [id number] [address] [place] [address], [place] [address] Apr, [facility] [address] [id number] [address] [place] [address], [place] [address] Apr, [facility] [address] [id number] [address] [place] [address], [place] [address] Apr, [facility] [address] [id number] [address] [place] [address], [place] [address] Apr, [facility] [address] [id number] [address] [place] [address], [place] [address] Mar, [facility] [address] [id number] [address] [place] [address], [place] [address] Mar, [facility] [address] [id number] [address] [place] [address], [place] [address] Mar, [facility] [address] [id number] [address] [place] [address], [place] [address] Mar, [facility] [address] [id number] [address] [place] [address] Feb, [facility] [address] [id number] [address] [place] [address], [place] [address] Jan, [facility] [address] [id number] [address] [place] [address], [place] [address] Jan, [facility] [address] [id number] [address] [place] [address], [place] [address] Jan, [facility] [address] [id number] [address] [place] [address], [place] [address] Jan, [facility] [address] [id number] [address] [place] [address], [place] [address] Jan, [facility] [address] [id number] [address] [place] [address], [place] [address] Jan, [facility] [address] [id number] [address] [place] [address], [place] [address] Jan, [facility] [address] [id number] [address] [place] [address], [place] [address] November, [facility] [address] [id number] [address] [place] [address], [place] [address] Sep, [facility] [address] [id number] [address] [place] [address], [place] [address] Sep, [facility] [address] [id number] [address] [place] [address], [place] [address] Aug, [facility] [address] [id number] [address] [place] [address], [place] [address] Aug, [facility] [address] [id number] [address] [place] [address], [place] [address] Jul, [facility] [address] [id number] [address] [place] [address], [place] [address] Jul, [facility] [address] [id number] [address] [place] [address], [place] [address] Jul, [facility] [address] [id number] [address] [place] [address], [place] [address] May, [facility] [address] [id number] [address] [place] [address], [place] [address] Apr, [facility] [address] [id number] [address] [place] [address], [place] [address] Apr, [facility] [address] [id number] [address] [place] [address], [place] [address] Apr, [facility] [address] [id number] [address] [place] [address], [place] [address] Apr, [facility] [address] [id number] [address] [place] [address], [place] [address] Apr, [facility] [address] [id number] [address] [place] [address], [place] [address] Mar, [facility] [address] [id number] [address] [place] [address], [place] [address] Feb, [facility] [address] [id number] [address] [place] [address], [place] [address] Feb, [facility] [address] [id number] [address] [place] [address], [place] [address] Jan, [facility] [address] [id number] [address] [place] [address], [place] [address] Jan, [facility] [address] [id number] [address] [place] [address], [place] [address] November, [facility] [address] [id number] [address] [place] [address], [place] [address] 20 Oct, 2011 [facility] [address] [id number] [address] [place] [address], [place] [address] 19 Oct, 2011 [facility] [address] [id number] [address] [place] [address], [place] [address] 18 Oct, 2011 [facility] [address] [id number] [address] [place] [address], [place] [address] 18 Oct, 2011 [facility] [address] [id number] [address] [place] [address], [place] [address] 16 Oct, 2011 [facility] [address] [id number] [address] [place] [address], [place] [address] 13 Oct, 2011 [facility] [address] [id number] [address] [place] [address], [place] [address] 12 Oct, 2011 [facility] [address] [id number] [address] [place] [address], [place] [address] 11 Oct, 2011 [facility] [address] [id number] [address] [place] [address], [place] [address] 10 Oct, 2011 [facility] [address] [id number] [address] [place] [address], [place] [address] 10 Oct, 2011 [facility] [address] [id number] [address] [place] [address], [place] [address] Sep, [facility] [address] [id number] [address] [place] [address], [place] [address] 10 Aug, 2011 [facility] [address] [id number] [address] [place] [address], [place] [address] Jun, [facility] [address] [id number] [address] [place] [address], [place] [address] 14 Jun, 2011 [facility] [address] [id number] [address] [place] [address], [place] [address] 14 Jun, 2011 [facility] [address] [id number] [address] [place] [address], [place] [address] 14 Jun, 2011 [facility] [address] [id number] [address] [place] [address], [place] [address] 07 Jun, 2011 [facility] [address] [id number] [address] [place] [address], [place] [address] 02 May, 2011 [facility] [address] [id number] [address] [place] [address], [place] [address] Apr, [facility] [address] [id number] [address] [place] [address], [place] [address] 10 Apr, 2011 [facility] [address] [id number] [address] [place] [address], [place] [address] 15 Oct, 2010 [facility] [address] [id number] [address] [place] [address], [place] [address] 09 Jun, 2010 [facility] [address] [id number] [address] [place] [address], [place] [address] 07 Jun, 2010 [facility] [address] [id number] [address] [place] [address] Jun, [facility] [address] [id number] [address] [place] [address] Jun, [facility] [address] [id number] [address] [place] [address] May, [facility] [address] [id number] [address] [place] [address] May, [facility] [address] [id number] [address] [place] [address] May, [facility] [address] [id number] [address] [place] [address] Apr, [facility] [address] [id number] [address] [place] [address] Apr, [facility] [address] [id number] [address] [place] [address] Apr, [facility] [address] [id number] [address] [place] [address] Oct, [facility] [address] [id number] [address] [place] [address] Jul, [facility] [address] [id number] [address] [place] [address] Apr, [facility] [address] [id number] [address] [place] [address] Mar, IMMUNIZATIONS No Known Immunizations SOCIAL HISTORY [...]
--- OUTSIDE RECORDS SUMMARY | 2019-11-10 09:03 | XMS REPORT ---
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 Name Role Phone VANESSA PERES Unavailable PROBLEMS Type Condition ICD9-CM Code URB30-VE Code Onset Dates Condition S tatus SNOMED Code Problem Loss of weight 783.21 Active 39462 5001 Problem Other malaise and fatigue 780.79 Acti ve 288516253 Problem Pain in soft tissues of limb 729.5 A ctive 95256348 Problem Other specified cardiac dysrhythmias 427.89 Active 179123136 Problem Other and unspecified hyperlipidemia 272.4 Active 69510101 Problem Muscle weakness (generalized) 728.87 Active 10854946 Problem Cervicalgia 723.1 Active 12848872 Problem Unspecified arthropathy, site 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.90 Active 061856200 Problem Unspecified symptom associated with female genital organs 625.9 Active [id number] ALLERGIES No Information ENCOUNTERS Encounter Location Date Diagnosis [facility] [address] [facility] [id number] [address] [place] [address] [id number] Sep, Dental caries K02.9 [facility] [address] [facility] [id number] [address] [place] [address] [id number] Sep, [facility] [address] [facility] [id number] [address] [place] [address] [phone] Sep, Dental examination Z01.20 [facility] [address] [facility] [id number] [address] [place] [address] [phone] May, Dental examination Z01.20 [facility] [address] [facility] [id number] [address] [place] [address] [phone] Apr, Dental examination Z01.20 [facility] [address] [facility] [id number] [address] [place] [address] Dec, [facility] [address] [id number] [address] [place] [address] [id number] Feb, Dental examination Z01.20 [facility] [address] [id number] [address] [place] [address] [phone] Jan, Dental caries K02.9 [facility] [address] [id number] [address] [place] [address] [phone] Dec, Dental examination Z01.20 [facility] [address] [id number] [address] [place] [address] [phone] Oct, Dental examination Z01.20 [facility] [address] [id number] [address] [place] [address] [phone] Aug, Encounter for dental examina tion Z01.20 [facility] [address] [id number] [address] [place] [phone] Aug, [facility] [address] [facility] [id number] [address] [place] [phone] Mar, [facility] [address] [id number] [address] [place] [address] [phone] Mar, Dental examination V72.2 [facility] [address] [facility] [id number] [address] [place] [phone] Feb, Unspecified arthropathy, sit e 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.90 ; Psychotic disorder 298.9 and Seborrhea 706.3 [facility] [address] [facility] [id number] [address] [place] [phone] Jan, [facility] [address] [facility] [id number] [address] [place] [phone] Dec, Dizziness 780.4 and Pain in soft tissues of limb 729.5 [facility] [address] [facility] [id number] [address] [place] [phone] Dec, [facility] [address] [facility] [id number] [address] [place] [phone] Oct, [facility] [address] [id number] [address] [place] [address], [place] [address] 13 Oct, 2014 [facility] [address] [id number] [address] [place] [address], [place] [address] 19 Sep, 2014 [facility] [address] [id number] [address] [place] [address], [place] [address] 19 Sep, 2014 [facility] [address] [id number] [address] [place] [address], [place] [address] 11 Sep, 2014 [facility] [address] [id number] [address] [place] [address], [place] [address] 11 Sep, 2014 [facility] [address] [id number] [address] [place] [address], [place] [address] 13 Aug, 2014 [facility] [address] [id number] [address] [place] [address], [place] [address] Aug, [facility] [address] [id number] [address] [place] [address], [place] [address] 17 May, 2014 [facility] [address] [id number] [address] [place] [address], [place] [address] 17 May, 2014 [facility] [address] [id number] [address] [place] [address], [place] [address] 17 May, 2014 [facility] [address] [id number] [address] [place] [address], [place] [address] 17 May, 2014 [facility] [address] [id number] [address] [place] [address], [place] [address] 17 May, 2014 [facility] [address] [id number] [address] [place] [address], [place] [address] 17 May, 2014 [facility] [address] [id number] [address] [place] [address], [place] [address] 17 May, 2014 [facility] [address] [id number] [address] [place] [address], [place] [address] 14 May, 2014 [facility] [address] [id number] [address] [place] [address], [place] [address] May, [facility] [address] [id number] [address] [place] [address], [place] [address] May, [facility] [address] [id number] [address] [place] [address], [place] [address] May, [facility] [address] [id number] [address] [place] [address], [place] [address] Apr, [facility] [address] [id number] [address] [place] [address], [place] [address] Apr, [facility] [address] [id number] [address] [place] [address], [place] [address] Feb, [facility] [address] [id number] [address] [place] [address], [place] [address] Feb, [facility] [address] [id number] [address] [place] [address], [place] [address] Feb, [facility] [address] [id number] [address] [place] [address], [place] [address] Feb, [facility] [address] [id number] [address] [place] [address], [place] [address] Jan, [facility] [address] [id number] [address] [place] [address], [place] [address] Jan, [facility] [address] [id number] [address] [place] [address], [place] [address] Jan, [facility] [address] [id number] [address] [place] [address], [place] [address] Jan, [facility] [address] [id number] [address] [place] [address], [place] [address] Dec, [facility] [address] [id number] [address] [place] [address], [place] [address] Dec, [facility] [address] [id number] [address] [place] [address], [place] [address] Dec, [facility] [address] [id number] [address] [place] [address], [place] [address] Dec, [facility] [address] [id number] [address] [place] [address], [place] [address] Oct, [facility] [address] [id number] [address] [place] [address], [place] [address] Oct, [facility] [address] [id number] [address] [place] [address], [place] [address] Oct, [facility] [address] [id number] [address] [place] [address], [place] [address] Oct, [facility] [address] [id number] [address] [place] [address], [place] [address] Oct, [facility] [address] [id number] [address] [place] [address], [place] [address] Oct, [facility] [address] [id number] [address] [place] [address], [place] [address] Oct, [facility] [address] [id number] [address] [place] [address], [place] [address] Jul, [facility] [address] [id number] [address] [place] [address], [place] [address] Jul, [facility] [address] [id number] [address] [place] [address], [place] [address] Jun, [facility] [address] [id number] [address] [place] [address], [place] [address] Jun, [facility] [address] [id number] [address] [place] [address], [place] [address] Jun, [facility] [address] [id number] [address] [place] [address], [place] [address] Jun, [facility] [address] [id number] [address] [place] [address], [place] [address] May, [facility] [address] [id number] [address] [place] [address], [place] [address] May, [facility] [address] [id number] [address] [place] [address], [place] [address] May, [facility] [address] [id number] [address] [place] [address], [place] [address] May, [facility] [address] [id number] [address] [place] [address], [place] [address] Apr, [facility] [address] [id number] [address] [place] [address], [place] [address] Apr, [facility] [address] [id number] [address] [place] [address], [place] [address] Apr, [facility] [address] [id number] [address] [place] [address], [place] [address] Apr, [facility] [address] [id number] [address] [place] [address], [place] [address] Apr, [facility] [address] [id number] [address] [place] [address], [place] [address] Mar, [facility] [address] [id number] [address] [place] [address], [place] [address] Mar, [facility] [address] [id number] [address] [place] [address], [place] [address] Mar, [facility] [address] [id number] [address] [place] [address], [place] [address] Mar, [facility] [address] [id number] [address] [place] [phone] Feb, [facility] [address] [id number] [address] [place] [address], [place] [address] Jan, [facility] [address] [id number] [address] [place] [address], [place] [address] Jan, [facility] [address] [id number] [address] [place] [address], [place] [address] Jan, [facility] [address] [id number] [address] [place] [address], [place] [address] Jan, [facility] [address] [id number] [address] [place] [address], [place] [address] Jan, [facility] [address] [id number] [address] [place] [address], [place] [address] Jan, [facility] [address] [id number] [address] [place] [address], [place] [address] Jan, [facility] [address] [id number] [address] [place] [address], [place] [address] November, [facility] [address] [id number] [address] [place] [address], [place] [address] Sep, [facility] [address] [id number] [address] [place] [address], [place] [address] Sep, [facility] [address] [id number] [address] [place] [address], [place] [address] Aug, [facility] [address] [id number] [address] [place] [address], [place] [address] Aug, [facility] [address] [id number] [address] [place] [address], [place] [address] Jul, [facility] [address] [id number] [address] [place] [address], [place] [address] Jul, [facility] [address] [id number] [address] [place] [address], [place] [address] Jul, [facility] [address] [id number] [address] [place] [address], [place] [address] May, [facility] [address] [id number] [address] [place] [address], [place] [address] Apr, [facility] [address] [id number] [address] [place] [address], [place] [address] Apr, [facility] [address] [id number] [address] [place] [address], [place] [address] Apr, [facility] [address] [id number] [address] [place] [address], [place] [address] Apr, [facility] [address] [id number] [address] [place] [address], [place] [address] Apr, [facility] [address] [id number] [address] [place] [address], [place] [address] Mar, [facility] [address] [id number] [address] [place] [address], [place] [address] Feb, [facility] [address] [id number] [address] [place] [address], [place] [address] Feb, [facility] [address] [id number] [address] [place] [address], [place] [address] Jan, [facility] [address] [id number] [address] [place] [address], [place] [address] Jan, [facility] [address] [id number] [address] [place] [address], [place] [address] November, [facility] [address] [id number] [address] [place] [address], [place] [address] 20 Oct, 2011 [facility] [address] [id number] [address] [place] [address], [place] [address] 19 Oct, 2011 [facility] [address] [id number] [address] [place] [address], [place] [address] 18 Oct, 2011 [facility] [address] [id number] [address] [place] [address], [place] [address] 18 Oct, 2011 [facility] [address] [id number] [address] [place] [address], [place] [address] 16 Oct, 2011 [facility] [address] [id number] [address] [place] [address], [place] [address] 13 Oct, 2011 [facility] [address] [id number] [address] [place] [address], [place] [address] 12 Oct, 2011 [facility] [address] [id number] [address] [place] [address], [place] [address] 11 Oct, 2011 [facility] [address] [id number] [address] [place] [address], [place] [address] 10 Oct, 2011 [facility] [address] [id number] [address] [place] [address], [place] [address] 10 Oct, 2011 [facility] [address] [id number] [address] [place] [address], [place] [address] Sep, [facility] [address] [id number] [address] [place] [address], [place] [address] 10 Aug, 2011 [facility] [address] [id number] [address] [place] [address], [place] [address] Jun, [facility] [address] [id number] [address] [place] [address], [place] [address] 14 Jun, 2011 [facility] [address] [id number] [address] [place] [address], [place] [address] 14 Jun, 2011 [facility] [address] [id number] [address] [place] [address], [place] [address] 14 Jun, 2011 [facility] [address] [id number] [address] [place] [address], [place] [address] 07 Jun, 2011 [facility] [address] [id number] [address] [place] [address], [place] [address] 02 May, 2011 [facility] [address] [id number] [address] [place] [address], [place] [address] Apr, [facility] [address] [id number] [address] [place] [address], [place] [address] 10 Apr, 2011 [facility] [address] [id number] [address] [place] [address], [place] [address] 15 Oct, 2010 [facility] [address] [id number] [address] [place] [address], [place] [address] 09 Jun, 2010 [facility] [address] [id number] [address] [place] [address], [place] [address] 07 Jun, 2010 [facility] [address] [id number] [address] [place] [address] Jun, [facility] [address] [id number] [address] [place] [address] Jun, [facility] [address] [id number] [address] [place] [address] May, [facility] [address] [id number] [address] [place] [address] May, [facility] [address] [id number] [address] [place] [address] May, [facility] [address] [id number] [address] [place] [address] Apr, [facility] [address] [id number] [address] [place] [address] Apr, [facility] [address] [id number] [address] [place] [address] Apr, [facility] [address] [id number] [address] [place] [address] Oct, [facility] [address] [id number] [address] [place] [address] Jul, [facility] [address] [id number] [address] [place] [address] Apr, [facility] [address] [id number] [address] [place] [address] Mar, IMMUNIZATIONS No Known Immunizations SOCIAL HISTORY [...]
--- OUTSIDE RECORDS SUMMARY | 2019-11-10 09:03 | XMS REPORT ---
Author Author Marcela PERES Organization 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 Name Role Phone VANESSA PERES Unavailable PROBLEMS Type Condition ICD9-CM Code [id number] Code Onset Dates Condition S tatus SNOMED Code Problem Loss of weight 783.21 Active 13540 5001 Problem Other malaise and fatigue 780.79 Acti ve 390067723 Problem Pain in soft tissues of limb 729.5 A ctive 62488868 Problem Other specified cardiac dysrhythmias 427.89 Active 723558113 Problem Other and unspecified hyperlipidemia 272.4 Active 45583828 Problem Muscle weakness (generalized) 728.87 Active 85805500 Problem Cervicalgia 723.1 Active 26963276 Problem Unspecified arthropathy, site 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.90 Active 020884566 Problem Unspecified symptom associated with female genital organs 625.9 Active [id number] ALLERGIES No Information ENCOUNTERS Encounter Location Date Diagnosis [facility] [address] [facility] [id number] [address] [place] [address] [id number] Sep, Dental caries K02.9 [facility] [address] [facility] [id number] [address] [place] [address] [id number] Sep, [facility] [address] [facility] [id number] [address] [place] [address] [id number] Sep, Dental examination Z01.20 [facility] [address] [facility] [id number] [address] [place] [address] [id number] May, Dental examination Z01.20 [facility] [address] [facility] [id number] [address] [place] [address] [id number] Apr, Dental examination Z01.20 [facility] [address] [facility] [id number] [address] [place] [id number] Dec, [facility] [address] [id number] [address] [place] [address] [id number] Feb, Dental examination Z01.20 [facility] [address] [id number] [address] [place] [address] [id number] Jan, Dental caries K02.9 [facility] [address] [id number] [address] [place] [address] [id number] Dec, Dental examination Z01.20 [facility] [address] [id number] [address] [place] [address] [id number] Oct, Dental examination Z01.20 [facility] [address] [id number] [address] [place] [address] [id number] Aug, Encounter for dental examina tion Z01.20 [facility] [address] [id number] [address] [place] [phone] Aug, [facility] [address] [facility] [id number] [address] [place] [phone] Mar, [facility] [address] [id number] [address] [place] [address] [id number] Mar, Dental examination V72.2 [facility] [address] [facility] [id number] [address] [place] [phone] Feb, Unspecified arthropathy, sit e 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.90 ; Psychotic disorder 298.[address] [facility] [address] [facility] [id number] [address] [place] [phone] Jan, [facility] [address] [facility] [id number] [address] [place] [phone] Dec, Dizziness 780.4 and Pain in soft tissues of limb 729.5 [facility] [address] [facility] [id number] [address] [place] [id number] Dec, [facility] [address] [facility] [id number] [address] [place] [id number] Oct, [facility] [address] [id number] [address] [place] [address], [place] [address] 13 Oct, 2014 [facility] [address] [id number] [address] [place] [address], [place] [address] 19 Sep, 2014 [facility] [address] [id number] [address] [place] [address], [place] [address] 19 Sep, 2014 [facility] [address] [id number] [address] [place] [address], [place] [address] 11 Sep, 2014 [facility] [address] [id number] [address] [place] [address], [place] [address] 11 Sep, 2014 [facility] [address] [id number] [address] [place] [address], [place] [address] 13 Aug, 2014 [facility] [address] [id number] [address] [place] [address], [place] [address] Aug, [facility] [address] [id number] [address] [place] [address], [place] [address] 17 May, 2014 [facility] [address] [id number] [address] [place] [address], [place] [address] 17 May, 2014 [facility] [address] [id number] [address] [place] [address], [place] [address] 17 May, 2014 [facility] [address] [id number] [address] [place] [address], [place] [address] 17 May, 2014 [facility] [address] [id number] [address] [place] [address], [place] [address] 17 May, 2014 [facility] [address] [id number] [address] [place] [address], [place] [address] 17 May, 2014 [facility] [address] [id number] [address] [place] [address], [place] [address] 17 May, 2014 [facility] [address] [id number] [address] [place] [address], [place] [address] 14 May, 2014 [facility] [address] [id number] [address] [place] [address], [place] [address] May, [facility] [address] [id number] [address] [place] [address], [place] [address] May, [facility] [address] [id number] [address] [place] [address], [place] [address] May, [facility] [address] [id number] [address] [place] [address], [place] [address] Apr, [facility] [address] [id number] [address] [place] [address], [place] [address] Apr, [facility] [address] [id number] [address] [place] [address], [place] [address] Feb, [facility] [address] [id number] [address] [place] [address], [place] [address] Feb, [facility] [address] [id number] [address] [place] [address], [place] [address] Feb, [facility] [address] [id number] [address] [place] [address], [place] [address] Feb, [facility] [address] [id number] [address] [place] [address], [place] [address] Jan, [facility] [address] [id number] [address] [place] [address], [place] [address] Jan, [facility] [address] [id number] [address] [place] [address], [place] [address] Jan, [facility] [address] [id number] [address] [place] [address], [place] [address] Jan, [facility] [address] [id number] [address] [place] [address], [place] [address] Dec, [facility] [address] [id number] [address] [place] [address], [place] [address] Dec, [facility] [address] [id number] [address] [place] [address], [place] [address] Dec, [facility] [address] [id number] [address] [place] [address], [place] [address] Dec, [facility] [address] [id number] [address] [place] [address], [place] [address] Oct, [facility] [address] [id number] [address] [place] [address], [place] [address] Oct, [facility] [address] [id number] [address] [place] [address], [place] [address] Oct, [facility] [address] [id number] [address] [place] [address], [place] [address] Oct, [facility] [address] [id number] [address] [place] [address], [place] [address] Oct, [facility] [address] [id number] [address] [place] [address], [place] [address] Oct, [facility] [address] [id number] [address] [place] [address], [place] [address] Oct, [facility] [address] [id number] [address] [place] [address], [place] [address] Jul, [facility] [address] [id number] [address] [place] [address], [place] [address] Jul, [facility] [address] [id number] [address] [place] [address], [place] [address] Jun, [facility] [address] [id number] [address] [place] [address], [place] [address] Jun, [facility] [address] [id number] [address] [place] [address], [place] [address] Jun, [facility] [address] [id number] [address] [place] [address], [place] [address] Jun, [facility] [address] [id number] [address] [place] [address], [place] [address] May, [facility] [address] [id number] [address] [place] [address], [place] [address] May, [facility] [address] [id number] [address] [place] [address], [place] [address] May, [facility] [address] [id number] [address] [place] [address], [place] [address] May, [facility] [address] [id number] [address] [place] [address], [place] [address] Apr, [facility] [address] [id number] [address] [place] [address], [place] [address] Apr, [facility] [address] [id number] [address] [place] [address], [place] [address] Apr, [facility] [address] [id number] [address] [place] [address], [place] [address] Apr, [facility] [address] [id number] [address] [place] [address], [place] [address] Apr, [facility] [address] [id number] [address] [place] [address], [place] [address] Mar, [facility] [address] [id number] [address] [place] [address], [place] [address] Mar, [facility] [address] [id number] [address] [place] [address], [place] [address] Mar, [facility] [address] [id number] [address] [place] [address], [place] [address] Mar, [facility] [address] [id number] [address] [place] [id number] Feb, [facility] [address] [id number] [address] [place] [address], [place] [address] Jan, [facility] [address] [id number] [address] [place] [address], [place] [address] Jan, [facility] [address] [id number] [address] [place] [address], [place] [address] Jan, [facility] [address] [id number] [address] [place] [address], [place] [address] Jan, [facility] [address] [id number] [address] [place] [address], [place] [address] Jan, [facility] [address] [id number] [address] [place] [address], [place] [address] Jan, [facility] [address] [id number] [address] [place] [address], [place] [address] Jan, [facility] [address] [id number] [address] [place] [address], [place] [address] November, [facility] [address] [id number] [address] [place] [address], [place] [address] Sep, [facility] [address] [id number] [address] [place] [address], [place] [address] Sep, [facility] [address] [id number] [address] [place] [address], [place] [address] Aug, [facility] [address] [id number] [address] [place] [address], [place] [address] Aug, [facility] [address] [id number] [address] [place] [address], [place] [address] Jul, [facility] [address] [id number] [address] [place] [address], [place] [address] Jul, [facility] [address] [id number] [address] [place] [address], [place] [address] Jul, [facility] [address] [id number] [address] [place] [address], [place] [address] May, [facility] [address] [id number] [address] [place] [address], [place] [address] Apr, [facility] [address] [id number] [address] [place] [address], [place] [address] Apr, [facility] [address] [id number] [address] [place] [address], [place] [address] Apr, [facility] [address] [id number] [address] [place] [address], [place] [address] Apr, [facility] [address] [id number] [address] [place] [address], [place] [address] Apr, [facility] [address] [id number] [address] [place] [address], [place] [address] Mar, [facility] [address] [id number] [address] [place] [address], [place] [address] Feb, [facility] [address] [id number] [address] [place] [address], [place] [address] Feb, [facility] [address] [id number] [address] [place] [address], [place] [address] Jan, [facility] [address] [id number] [address] [place] [address], [place] [address] Jan, [facility] [address] [id number] [address] [place] [address], [place] [address] November, [facility] [address] [id number] [address] [place] [address], [place] [address] 20 Oct, 2011 [facility] [address] [id number] [address] [place] [address], [place] [address] 19 Oct, 2011 [facility] [address] [id number] [address] [place] [address], [place] [address] 18 Oct, 2011 [facility] [address] [id number] [address] [place] [address], [place] [address] 18 Oct, 2011 [facility] [address] [id number] [address] [place] [address], [place] [address] 16 Oct, 2011 [facility] [address] [id number] [address] [place] [address], [place] [address] 13 Oct, 2011 [facility] [address] [id number] [address] [place] [address], [place] [address] 12 Oct, 2011 [facility] [address] [id number] [address] [place] [address], [place] [address] 11 Oct, 2011 [facility] [address] [id number] [address] [place] [address], [place] [address] 10 Oct, 2011 [facility] [address] [id number] [address] [place] [address], [place] [address] 10 Oct, 2011 [facility] [address] [id number] [address] [place] [address], [place] [address] Sep, [facility] [address] [id number] [address] [place] [address], [place] [address] 10 Aug, 2011 [facility] [address] [id number] [address] [place] [address], [place] [address] Jun, [facility] [address] [id number] [address] [place] [address], [place] [address] 14 Jun, 2011 [facility] [address] [id number] [address] [place] [address], [place] [address] 14 Jun, 2011 [facility] [address] [id number] [address] [place] [address], [place] [address] 14 Jun, 2011 [facility] [address] [id number] [address] [place] [address], [place] [address] 07 Jun, 2011 [facility] [address] [id number] [address] [place] [address], [place] [address] 02 May, 2011 [facility] [address] [id number] [address] [place] [address], [place] [address] Apr, [facility] [address] [id number] [address] [place] [address], [place] [address] 10 Apr, 2011 [facility] [address] [id number] [address] [place] [address], [place] [address] 15 Oct, 2010 [facility] [address] [id number] [address] [place] [address], [place] [address] 09 Jun, 2010 [facility] [address] [id number] [address] [place] [address], [place] [address] 07 Jun, 2010 [facility] [address] [id number] [address] [place] [address] Jun, [facility] [address] [id number] [address] [place] [address] Jun, [facility] [address] [id number] [address] [place] [address] May, [facility] [address] [id number] [address] [place] [address] May, [facility] [address] [id number] [address] [place] [address] May, [facility] [address] [id number] [address] [place] [address] Apr, [facility] [address] [id number] [address] [place] [address] Apr, [facility] [address] [id number] [address] [place] [address] Apr, [facility] [address] [id number] [address] [place] [address] Oct, [facility] [address] [id number] [address] [place] [address] Jul, [facility] [address] [id number] [address] [place] [address] Apr, [facility] [address] [id number] [address] [place] [address] Mar, IMMUNIZATIONS No Known Immunizations SOCIAL HISTORY [...]
--- OUTSIDE RECORDS SUMMARY | 2019-11-10 09:03 | XMS REPORT ---
Author Author Marcela PERES Organization [facility] Address [address] [place] [address] Care Team Providers Care Reagent Tender Name Role Phone VANESSA PERES Unavailable PROBLEMS Type Condition ICD9-CM Code DQS63-YC Code Onset Dates Condition S tatus SNOMED Code Problem Loss of weight 783.21 Active 20419 5001 Problem Other malaise and fatigue 780.79 Acti ve 535664166 Problem Pain in soft tissues of limb 729.5 A ctive 40110592 Problem Other specified cardiac dysrhythmias 427.89 Active 207504524 Problem Other and unspecified hyperlipidemia 272.4 Active 74579914 Problem Muscle weakness (generalized) 728.87 Active 02473091 Problem Cervicalgia 723.1 Active 59313424 Problem Unspecified arthropathy, site 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.90 Active 850827382 Problem Unspecified symptom associated with female genital organs 625.9 Active [id number] ALLERGIES No Information ENCOUNTERS Encounter Location Date Diagnosis [facility] [address] [facility] [id number] [address] [place] [address] [id number] Sep, Dental caries K02.9 [facility] [address] [facility] [id number] [address] [place] [address] [id number] Sep, [facility] [address] [facility] [id number] [address] [place] [address] [id number] Sep, Dental examination Z01.20 [facility] [address] [facility] [id number] [address] [place] [address] [id number] May, Dental examination Z01.20 [facility] [address] [facility] [id number] [address] [place] [address] [id number] Apr, Dental examination Z01.20 [facility] [address] [facility] [id number] [address] [place] [address] Dec, [facility] [address] [id number] [address] [place] [address] [id number] Feb, Dental examination Z01.20 [facility] [address] [id number] [address] [place] [address] [id number] Jan, Dental caries K02.9 [facility] [address] [id number] [address] [place] [address] [id number] Dec, Dental examination Z01.20 [facility] [address] [id number] [address] [place] [address] [id number] Oct, Dental examination Z01.20 [facility] [address] [id number] [address] [place] [address] [id number] Aug, Encounter for dental examina tion Z01.20 [facility] [address] [id number] [address] [place] [phone] Aug, [facility] [address] [facility] [id number] [address] [place] [address] Mar, [facility] [address] [id number] [address] [place] [address] [id number] Mar, Dental examination V72.2 [facility] [address] [facility] [id number] [address] [place] [phone] Feb, Unspecified arthropathy, sit e 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.90 ; Psychotic disorder 298.9 and Seborrhea 706.3 [facility] [address] [facility] [id number] [address] [place] [phone] Jan, [facility] [address] [facility] [id number] [address] [place] [address] Dec, Dizziness 780.4 and Pain in soft tissues of limb 729.5 [facility] [address] [facility] [id number] [address] [place] [phone] Dec, [facility] [address] [facility] [id number] [address] [place] [phone] Oct, [facility] [address] [id number] [address] [place] [address], [place] [address] 13 Oct, 2014 [facility] [address] [id number] [address] [place] [address], [place] [address] 19 Sep, 2014 [facility] [address] [id number] [address] [place] [address], [place] [address] 19 Sep, 2014 [facility] [address] [id number] [address] [place] [address], [place] [address] 11 Sep, 2014 [facility] [address] [id number] [address] [place] [address], [place] [address] 11 Sep, 2014 [facility] [address] [id number] [address] [place] [address], [place] [address] 13 Aug, 2014 [facility] [address] [id number] [address] [place] [address], [place] [address] Aug, [facility] [address] [id number] [address] [place] [address], [place] [address] 17 May, 2014 [facility] [address] [id number] [address] [place] [address], [place] [address] 17 May, 2014 [facility] [address] [id number] [address] [place] [address], [place] [address] 17 May, 2014 [facility] [address] [id number] [address] [place] [address], [place] [address] 17 May, 2014 [facility] [address] [id number] [address] [place] [address], [place] [address] 17 May, 2014 [facility] [address] [id number] [address] [place] [address], [place] [address] 17 May, 2014 [facility] [address] [id number] [address] [place] [address], [place] [address] 17 May, 2014 [facility] [address] [id number] [address] [place] [address], [place] [address] 14 May, 2014 [facility] [address] [id number] [address] [place] [address], [place] [address] May, [facility] [address] [id number] [address] [place] [address], [place] [address] May, [facility] [address] [id number] [address] [place] [address], [place] [address] May, [facility] [address] [id number] [address] [place] [address], [place] [address] Apr, [facility] [address] [id number] [address] [place] [address], [place] [address] Apr, [facility] [address] [id number] [address] [place] [address], [place] [address] Feb, [facility] [address] [id number] [address] [place] [address], [place] [address] Feb, [facility] [address] [id number] [address] [place] [address], [place] [address] Feb, [facility] [address] [id number] [address] [place] [address], [place] [address] Feb, [facility] [address] [id number] [address] [place] [address], [place] [address] Jan, [facility] [address] [id number] [address] [place] [address], [place] [address] Jan, [facility] [address] [id number] [address] [place] [address], [place] [address] Jan, [facility] [address] [id number] [address] [place] [address], [place] [address] Jan, [facility] [address] [id number] [address] [place] [address], [place] [address] Dec, [facility] [address] [id number] [address] [place] [address], [place] [address] Dec, [facility] [address] [id number] [address] [place] [address], [place] [address] Dec, [facility] [address] [id number] [address] [place] [address], [place] [address] Dec, [facility] [address] [id number] [address] [place] [address], [place] [address] Oct, [facility] [address] [id number] [address] [place] [address], [place] [address] Oct, [facility] [address] [id number] [address] [place] [address], [place] [address] Oct, [facility] [address] [id number] [address] [place] [address], [place] [address] Oct, [facility] [address] [id number] [address] [place] [address], [place] [address] Oct, [facility] [address] [id number] [address] [place] [address], [place] [address] Oct, [facility] [address] [id number] [address] [place] [address], [place] [address] Oct, [facility] [address] [id number] [address] [place] [address], [place] [address] Jul, [facility] [address] [id number] [address] [place] [address], [place] [address] Jul, [facility] [address] [id number] [address] [place] [address], [place] [address] Jun, [facility] [address] [id number] [address] [place] [address], [place] [address] Jun, [facility] [address] [id number] [address] [place] [address], [place] [address] Jun, [facility] [address] [id number] [address] [place] [address], [place] [address] Jun, [facility] [address] [id number] [address] [place] [address], [place] [address] May, [facility] [address] [id number] [address] [place] [address], [place] [address] May, [facility] [address] [id number] [address] [place] [address], [place] [address] May, [facility] [address] [id number] [address] [place] [address], [place] [address] May, [facility] [address] [id number] [address] [place] [address], [place] [address] Apr, [facility] [address] [id number] [address] [place] [address], [place] [address] Apr, [facility] [address] [id number] [address] [place] [address], [place] [address] Apr, [facility] [address] [id number] [address] [place] [address], [place] [address] Apr, [facility] [address] [id number] [address] [place] [address], [place] [address] Apr, [facility] [address] [id number] [address] [place] [address], [place] [address] Mar, [facility] [address] [id number] [address] [place] [address], [place] [address] Mar, [facility] [address] [id number] [address] [place] [address], [place] [address] Mar, [facility] [address] [id number] [address] [place] [address], [place] [address] Mar, [facility] [address] [id number] [address] [place] [address] Feb, [facility] [address] [id number] [address] [place] [address], [place] [address] Jan, [facility] [address] [id number] [address] [place] [address], [place] [address] Jan, [facility] [address] [id number] [address] [place] [address], [place] [address] Jan, [facility] [address] [id number] [address] [place] [address], [place] [address] Jan, [facility] [address] [id number] [address] [place] [address], [place] [address] Jan, [facility] [address] [id number] [address] [place] [address], [place] [address] Jan, [facility] [address] [id number] [address] [place] [address], [place] [address] Jan, [facility] [address] [id number] [address] [place] [address], [place] [address] November, [facility] [address] [id number] [address] [place] [address], [place] [address] Sep, [facility] [address] [id number] [address] [place] [address], [place] [address] Sep, [facility] [address] [id number] [address] [place] [address], [place] [address] Aug, [facility] [address] [id number] [address] [place] [address], [place] [address] Aug, [facility] [address] [id number] [address] [place] [address], [place] [address] Jul, [facility] [address] [id number] [address] [place] [address], [place] [address] Jul, [facility] [address] [id number] [address] [place] [address], [place] [address] Jul, [facility] [address] [id number] [address] [place] [address], [place] [address] May, [facility] [address] [id number] [address] [place] [address], [place] [address] Apr, [facility] [address] [id number] [address] [place] [address], [place] [address] Apr, [facility] [address] [id number] [address] [place] [address], [place] [address] Apr, [facility] [address] [id number] [address] [place] [address], [place] [address] Apr, [facility] [address] [id number] [address] [place] [address], [place] [address] Apr, [facility] [address] [id number] [address] [place] [address], [place] [address] Mar, [facility] [address] [id number] [address] [place] [address], [place] [address] Feb, [facility] [address] [id number] [address] [place] [address], [place] [address] Feb, [facility] [address] [id number] [address] [place] [address], [place] [address] Jan, [facility] [address] [id number] [address] [place] [address], [place] [address] Jan, [facility] [address] [id number] [address] [place] [address], [place] [address] November, [facility] [address] [id number] [address] [place] [address], [place] [address] 20 Oct, 2011 [facility] [address] [id number] [address] [place] [address], [place] [address] 19 Oct, 2011 [facility] [address] [id number] [address] [place] [address], [place] [address] 18 Oct, 2011 [facility] [address] [id number] [address] [place] [address], [place] [address] 18 Oct, 2011 [facility] [address] [id number] [address] [place] [address], [place] [address] 16 Oct, 2011 [facility] [address] [id number] [address] [place] [address], [place] [address] 13 Oct, 2011 [facility] [address] [id number] [address] [place] [address], [place] [address] 12 Oct, 2011 [facility] [address] [id number] [address] [place] [address], [place] [address] 11 Oct, 2011 [facility] [address] [id number] [address] [place] [address], [place] [address] 10 Oct, 2011 [facility] [address] [id number] [address] [place] [address], [place] [address] 10 Oct, 2011 [facility] [address] [id number] [address] [place] [address], [place] [address] Sep, [facility] [address] [id number] [address] [place] [address], [place] [address] 10 Aug, 2011 [facility] [address] [id number] [address] [place] [address], [place] [address] Jun, [facility] [address] [id number] [address] [place] [address], [place] [address] 14 Jun, 2011 [facility] [address] [id number] [address] [place] [address], [place] [address] 14 Jun, 2011 [facility] [address] [id number] [address] [place] [address], [place] [address] 14 Jun, 2011 [facility] [address] [id number] [address] [place] [address], [place] [address] 07 Jun, 2011 [facility] [address] [id number] [address] [place] [address], [place] [address] 02 May, 2011 [facility] [address] [id number] [address] [place] [address], [place] [address] Apr, [facility] [address] [id number] [address] [place] [address], [place] [address] 10 Apr, 2011 [facility] [address] [id number] [address] [place] [address], [place] [address] 15 Oct, 2010 [facility] [address] [id number] [address] [place] [address], [place] [address] 09 Jun, 2010 [facility] [address] [id number] [address] [place] [address], [place] [address] 07 Jun, 2010 [facility] [address] [id number] [address] [place] [address] Jun, [facility] [address] [id number] [address] [place] [address] Jun, [facility] [address] [id number] [address] [place] [address] May, [facility] [address] [id number] [address] [place] [address] May, [facility] [address] [id number] [address] [place] [address] May, [facility] [address] [id number] [address] [place] [address] Apr, [facility] [address] [id number] [address] [place] [address] Apr, [facility] [address] [id number] [address] [place] [address] Apr, [facility] [address] [id number] [address] [place] [address] Oct, [facility] [address] [id number] [address] [place] [address] Jul, [facility] [address] [id number] [address] [place] [address] Apr, [facility] [address] [id number] [address] [place] [address] Mar, IMMUNIZATIONS No Known Immunizations SOCIAL HISTORY [...]
--- OUTSIDE RECORDS SUMMARY | 2019-11-10 09:03 | XMS REPORT ---
Author Author Marcela PERES Organization [facility] Address [address] [place] [address] Care Team Providers Care Regenerator Operator Name Role Phone VANESSA PERES Unavailable PROBLEMS Type Condition ICD9-CM Code ILT23-AQ Code Onset Dates Condition S tatus SNOMED Code Problem Loss of weight 783.21 Active 09053 5001 Problem Other malaise and fatigue 780.79 Acti ve 464593566 Problem Pain in soft tissues of limb 729.5 A ctive 23457908 Problem Other specified cardiac dysrhythmias 427.89 Active 318623917 Problem Other and unspecified hyperlipidemia 272.4 Active 38760900 Problem Muscle weakness (generalized) 728.87 Active 18348684 Problem Cervicalgia 723.1 Active 85775877 Problem Unspecified arthropathy, site 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.90 Active 280994263 Problem Unspecified symptom associated with female genital organs 625.9 Active [id number] ALLERGIES No Information ENCOUNTERS Encounter Location Date Diagnosis [facility] [address] [facility] [id number] [address] [place] [address] [id number] Sep, Dental caries K02.9 [facility] [address] [facility] [id number] [address] [place] [address] [id number] Sep, [facility] [address] [facility] [id number] [address] [place] [address] [id number] Sep, Dental examination Z01.20 [facility] [address] [facility] [id number] [address] [place] [address] [id number] May, Dental examination Z01.20 [facility] [address] [facility] [id number] [address] [place] [address] [id number] Apr, Dental examination Z01.20 [facility] [address] [facility] [id number] [address] [place] [address] Dec, [facility] [address] [id number] [address] [place] [address] [id number] Feb, Dental examination Z01.20 [facility] [address] [id number] [address] [place] [address] [id number] Jan, Dental caries K02.9 [facility] [address] [id number] [address] [place] [address] [id number] Dec, Dental examination Z01.20 [facility] [address] [id number] [address] [place] [address] [id number] Oct, Dental examination Z01.20 [facility] [address] [id number] [address] [place] [address] [id number] Aug, Encounter for dental examina tion Z01.20 [facility] [address] [id number] [address] [place] [id number] Aug, [facility] [address] [facility] [id number] [address] [place] [phone] Mar, [facility] [address] [id number] [address] [place] [address] [id number] Mar, Dental examination V72.2 [facility] [address] [facility] [id number] [address] [place] [address] Feb, Unspecified arthropathy, sit e 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.90 ; Psychotic disorder 298.9 and Seborrhea 706.3 [facility] [address] [facility] [id number] [address] [place] [address] Jan, [facility] [address] [facility] [id number] [address] [place] [address] Dec, Dizziness 780.4 and Pain in soft tissues of limb 729.5 [facility] [address] [facility] [id number] [address] [place] [address] Dec, [facility] [address] [facility] [id number] [address] [place] [phone] Oct, [facility] [address] [id number] [address] [place] [address], [place] [address] 13 Oct, 2014 [facility] [address] [id number] [address] [place] [address], [place] [address] 19 Sep, 2014 [facility] [address] [id number] [address] [place] [address], [place] [address] 19 Sep, 2014 [facility] [address] [id number] [address] [place] [address], [place] [address] 11 Sep, 2014 [facility] [address] [id number] [address] [place] [address], [place] [address] 11 Sep, 2014 [facility] [address] [id number] [address] [place] [address], [place] [address] 13 Aug, 2014 [facility] [address] [id number] [address] [place] [address], [place] [address] Aug, [facility] [address] [id number] [address] [place] [address], [place] [address] 17 May, 2014 [facility] [address] [id number] [address] [place] [address], [place] [address] 17 May, 2014 [facility] [address] [id number] [address] [place] [address], [place] [address] 17 May, 2014 [facility] [address] [id number] [address] [place] [address], [place] [address] 17 May, 2014 [facility] [address] [id number] [address] [place] [address], [place] [address] 17 May, 2014 [facility] [address] [id number] [address] [place] [address], [place] [address] 17 May, 2014 [facility] [address] [id number] [address] [place] [address], [place] [address] 17 May, 2014 [facility] [address] [id number] [address] [place] [address], [place] [address] 14 May, 2014 [facility] [address] [id number] [address] [place] [address], [place] [address] May, [facility] [address] [id number] [address] [place] [address], [place] [address] May, [facility] [address] [id number] [address] [place] [address], [place] [address] May, [facility] [address] [id number] [address] [place] [address], [place] [address] Apr, [facility] [address] [id number] [address] [place] [address], [place] [address] Apr, [facility] [address] [id number] [address] [place] [address], [place] [address] Feb, [facility] [address] [id number] [address] [place] [address], [place] [address] Feb, [facility] [address] [id number] [address] [place] [address], [place] [address] Feb, [facility] [address] [id number] [address] [place] [address], [place] [address] Feb, [facility] [address] [id number] [address] [place] [address], [place] [address] Jan, [facility] [address] [id number] [address] [place] [address], [place] [address] Jan, [facility] [address] [id number] [address] [place] [address], [place] [address] Jan, [facility] [address] [id number] [address] [place] [address], [place] [address] Jan, [facility] [address] [id number] [address] [place] [address], [place] [address] Dec, [facility] [address] [id number] [address] [place] [address], [place] [address] Dec, [facility] [address] [id number] [address] [place] [address], [place] [address] Dec, [facility] [address] [id number] [address] [place] [address], [place] [address] Dec, [facility] [address] [id number] [address] [place] [address], [place] [address] Oct, [facility] [address] [id number] [address] [place] [address], [place] [address] Oct, [facility] [address] [id number] [address] [place] [address], [place] [address] Oct, [facility] [address] [id number] [address] [place] [address], [place] [address] Oct, [facility] [address] [id number] [address] [place] [address], [place] [address] Oct, [facility] [address] [id number] [address] [place] [address], [place] [address] Oct, [facility] [address] [id number] [address] [place] [address], [place] [address] Oct, [facility] [address] [id number] [address] [place] [address], [place] [address] Jul, [facility] [address] [id number] [address] [place] [address], [place] [address] Jul, [facility] [address] [id number] [address] [place] [address], [place] [address] Jun, [facility] [address] [id number] [address] [place] [address], [place] [address] Jun, [facility] [address] [id number] [address] [place] [address], [place] [address] Jun, [facility] [address] [id number] [address] [place] [address], [place] [address] Jun, [facility] [address] [id number] [address] [place] [address], [place] [address] May, [facility] [address] [id number] [address] [place] [address], [place] [address] May, [facility] [address] [id number] [address] [place] [address], [place] [address] May, [facility] [address] [id number] [address] [place] [address], [place] [address] May, [facility] [address] [id number] [address] [place] [address], [place] [address] Apr, [facility] [address] [id number] [address] [place] [address], [place] [address] Apr, [facility] [address] [id number] [address] [place] [address], [place] [address] Apr, [facility] [address] [id number] [address] [place] [address], [place] [address] Apr, [facility] [address] [id number] [address] [place] [address], [place] [address] Apr, [facility] [address] [id number] [address] [place] [address], [place] [address] Mar, [facility] [address] [id number] [address] [place] [address], [place] [address] Mar, [facility] [address] [id number] [address] [place] [address], [place] [address] Mar, [facility] [address] [id number] [address] [place] [address], [place] [address] Mar, [facility] [address] [id number] [address] [place] [address] Feb, [facility] [address] [id number] [address] [place] [address], [place] [address] Jan, [facility] [address] [id number] [address] [place] [address], [place] [address] Jan, [facility] [address] [id number] [address] [place] [address], [place] [address] Jan, [facility] [address] [id number] [address] [place] [address], [place] [address] Jan, [facility] [address] [id number] [address] [place] [address], [place] [address] Jan, [facility] [address] [id number] [address] [place] [address], [place] [address] Jan, [facility] [address] [id number] [address] [place] [address], [place] [address] Jan, [facility] [address] [id number] [address] [place] [address], [place] [address] November, [facility] [address] [id number] [address] [place] [address], [place] [address] Sep, [facility] [address] [id number] [address] [place] [address], [place] [address] Sep, [facility] [address] [id number] [address] [place] [address], [place] [address] Aug, [facility] [address] [id number] [address] [place] [address], [place] [address] Aug, [facility] [address] [id number] [address] [place] [address], [place] [address] Jul, [facility] [address] [id number] [address] [place] [address], [place] [address] Jul, [facility] [address] [id number] [address] [place] [address], [place] [address] Jul, [facility] [address] [id number] [address] [place] [address], [place] [address] May, [facility] [address] [id number] [address] [place] [address], [place] [address] Apr, [facility] [address] [id number] [address] [place] [address], [place] [address] Apr, [facility] [address] [id number] [address] [place] [address], [place] [address] Apr, [facility] [address] [id number] [address] [place] [address], [place] [address] Apr, [facility] [address] [id number] [address] [place] [address], [place] [address] Apr, [facility] [address] [id number] [address] [place] [address], [place] [address] Mar, [facility] [address] [id number] [address] [place] [address], [place] [address] Feb, [facility] [address] [id number] [address] [place] [address], [place] [address] Feb, [facility] [address] [id number] [address] [place] [address], [place] [address] Jan, [facility] [address] [id number] [address] [place] [address], [place] [address] Jan, [facility] [address] [id number] [address] [place] [address], [place] [address] November, [facility] [address] [id number] [address] [place] [address], [place] [address] 20 Oct, 2011 [facility] [address] [id number] [address] [place] [address], [place] [address] 19 Oct, 2011 [facility] [address] [id number] [address] [place] [address], [place] [address] 18 Oct, 2011 [facility] [address] [id number] [address] [place] [address], [place] [address] 18 Oct, 2011 [facility] [address] [id number] [address] [place] [address], [place] [address] 16 Oct, 2011 [facility] [address] [id number] [address] [place] [address], [place] [address] 13 Oct, 2011 [facility] [address] [id number] [address] [place] [address], [place] [address] 12 Oct, 2011 [facility] [address] [id number] [address] [place] [address], [place] [address] 11 Oct, 2011 [facility] [address] [id number] [address] [place] [address], [place] [address] 10 Oct, 2011 [facility] [address] [id number] [address] [place] [address], [place] [address] 10 Oct, 2011 [facility] [address] [id number] [address] [place] [address], [place] [address] Sep, [facility] [address] [id number] [address] [place] [address], [place] [address] 10 Aug, 2011 [facility] [address] [id number] [address] [place] [address], [place] [address] Jun, [facility] [address] [id number] [address] [place] [address], [place] [address] 14 Jun, 2011 [facility] [address] [id number] [address] [place] [address], [place] [address] 14 Jun, 2011 [facility] [address] [id number] [address] [place] [address], [place] [address] 14 Jun, 2011 [facility] [address] [id number] [address] [place] [address], [place] [address] 07 Jun, 2011 [facility] [address] [id number] [address] [place] [address], [place] [address] 02 May, 2011 [facility] [address] [id number] [address] [place] [address], [place] [address] Apr, [facility] [address] [id number] [address] [place] [address], [place] [address] 10 Apr, 2011 [facility] [address] [id number] [address] [place] [address], [place] [address] 15 Oct, 2010 [facility] [address] [id number] [address] [place] [address], [place] [address] 09 Jun, 2010 [facility] [address] [id number] [address] [place] [address], [place] [address] 07 Jun, 2010 [facility] [address] [id number] [address] [place] [address] Jun, [facility] [address] [id number] [address] [place] [address] Jun, [facility] [address] [id number] [address] [place] [address] May, [facility] [address] [id number] [address] [place] [address] May, [facility] [address] [id number] [address] [place] [address] May, [facility] [address] [id number] [address] [place] [address] Apr, [facility] [address] [id number] [address] [place] [address] Apr, [facility] [address] [id number] [address] [place] [address] Apr, [facility] [address] [id number] [address] [place] [address] Oct, [facility] [address] [id number] [address] [place] [address] Jul, [facility] [address] [id number] [address] [place] [address] Apr, [facility] [address] [id number] [address] [place] [address] Mar, IMMUNIZATIONS No Known Immunizations SOCIAL HISTORY [...]
--- OUTSIDE RECORDS SUMMARY | 2019-11-10 09:03 | XMS REPORT ---
Author Author Marcela PERES Organization [facility] Address [address] [place] [address] Care Team Providers Care [employer] Officer Name Role Phone VANESSA PERES Unavailable PROBLEMS Type Condition ICD9-CM Code CIV07-RE Code Onset Dates Condition S tatus SNOMED Code Problem Loss of weight 783.21 Active 70292 5001 Problem Other malaise and fatigue 780.79 Acti ve 435155635 Problem Pain in soft tissues of limb 729.5 A ctive 55747266 Problem Other specified cardiac dysrhythmias 427.89 Active 781598376 Problem Other and unspecified hyperlipidemia 272.4 Active 89844708 Problem Muscle weakness (generalized) 728.87 Active 88030957 Problem Cervicalgia 723.1 Active 10634921 Problem Unspecified arthropathy, site 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.90 Active 002564464 Problem Unspecified symptom associated with female genital organs 625.9 Active [id number] ALLERGIES No Information ENCOUNTERS Encounter Location Date Diagnosis [facility] [address] [facility] [id number] [address] [place] [address] [id number] Sep, Dental caries K02.9 [facility] [address] [facility] [id number] [address] [place] [address] [id number] Sep, [facility] [address] [facility] [id number] [address] [place] [address] [id number] Sep, Dental examination Z01.20 [facility] [address] [facility] [id number] [address] [place] [address] [id number] May, Dental examination Z01.20 [facility] [address] [facility] [id number] [address] [place] [address] [id number] Apr, Dental examination Z01.20 [facility] [address] [facility] [id number] [address] [place] [address] Dec, [facility] [address] [id number] [address] [place] [address] [id number] Feb, Dental examination Z01.20 [facility] [address] [id number] [address] [place] [address] [id number] Jan, Dental caries K02.9 [facility] [address] [id number] [address] [place] [address] [id number] Dec, Dental examination Z01.20 [facility] [address] [id number] [address] [place] [address] [id number] Oct, Dental examination Z01.20 [facility] [address] [id number] [address] [place] [address] [id number] Aug, Encounter for dental examina tion Z01.20 [facility] [address] [id number] [address] [place] [phone] Aug, [facility] [address] [facility] [id number] [address] [place] [phone] Mar, [facility] [address] [id number] [address] [place] [address] [id number] Mar, Dental examination V72.2 [facility] [address] [facility] [id number] [address] [place] [phone] Feb, Unspecified arthropathy, sit e 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.90 ; Psychotic disorder 298.9 and Seborrhea 706.3 [facility] [address] [facility] [id number] [address] [place] [phone] Jan, [facility] [address] [facility] [id number] [address] [place] [phone] Dec, Dizziness 780.4 and Pain in soft tissues of limb 729.5 [facility] [address] [facility] [id number] [address] [place] [phone] Dec, [facility] [address] [facility] [id number] [address] [place] [phone] Oct, [facility] [address] [id number] [address] [place] [address], [place] [address] 13 Oct, 2014 [facility] [address] [id number] [address] [place] [address], [place] [address] 19 Sep, 2014 [facility] [address] [id number] [address] [place] [address], [place] [address] 19 Sep, 2014 [facility] [address] [id number] [address] [place] [address], [place] [address] 11 Sep, 2014 [facility] [address] [id number] [address] [place] [address], [place] [address] 11 Sep, 2014 [facility] [address] [id number] [address] [place] [address], [place] [address] 13 Aug, 2014 [facility] [address] [id number] [address] [place] [address], [place] [address] Aug, [facility] [address] [id number] [address] [place] [address], [place] [address] 17 May, 2014 [facility] [address] [id number] [address] [place] [address], [place] [address] 17 May, 2014 [facility] [address] [id number] [address] [place] [address], [place] [address] 17 May, 2014 [facility] [address] [id number] [address] [place] [address], [place] [address] 17 May, 2014 [facility] [address] [id number] [address] [place] [address], [place] [address] 17 May, 2014 [facility] [address] [id number] [address] [place] [address], [place] [address] 17 May, 2014 [facility] [address] [id number] [address] [place] [address], [place] [address] 17 May, 2014 [facility] [address] [id number] [address] [place] [address], [place] [address] 14 May, 2014 [facility] [address] [id number] [address] [place] [address], [place] [address] May, [facility] [address] [id number] [address] [place] [address], [place] [address] May, [facility] [address] [id number] [address] [place] [address], [place] [address] May, [facility] [address] [id number] [address] [place] [address], [place] [address] Apr, [facility] [address] [id number] [address] [place] [address], [place] [address] Apr, [facility] [address] [id number] [address] [place] [address], [place] [address] Feb, [facility] [address] [id number] [address] [place] [address], [place] [address] Feb, [facility] [address] [id number] [address] [place] [address], [place] [address] Feb, [facility] [address] [id number] [address] [place] [address], [place] [address] Feb, [facility] [address] [id number] [address] [place] [address], [place] [address] Jan, [facility] [address] [id number] [address] [place] [address], [place] [address] Jan, [facility] [address] [id number] [address] [place] [address], [place] [address] Jan, [facility] [address] [id number] [address] [place] [address], [place] [address] Jan, [facility] [address] [id number] [address] [place] [address], [place] [address] Dec, [facility] [address] [id number] [address] [place] [address], [place] [address] Dec, [facility] [address] [id number] [address] [place] [address], [place] [address] Dec, [facility] [address] [id number] [address] [place] [address], [place] [address] Dec, [facility] [address] [id number] [address] [place] [address], [place] [address] Oct, [facility] [address] [id number] [address] [place] [address], [place] [address] Oct, [facility] [address] [id number] [address] [place] [address], [place] [address] Oct, [facility] [address] [id number] [address] [place] [address], [place] [address] Oct, [facility] [address] [id number] [address] [place] [address], [place] [address] Oct, [facility] [address] [id number] [address] [place] [address], [place] [address] Oct, [facility] [address] [id number] [address] [place] [address], [place] [address] Oct, [facility] [address] [id number] [address] [place] [address], [place] [address] Jul, [facility] [address] [id number] [address] [place] [address], [place] [address] Jul, [facility] [address] [id number] [address] [place] [address], [place] [address] Jun, [facility] [address] [id number] [address] [place] [address], [place] [address] Jun, [facility] [address] [id number] [address] [place] [address], [place] [address] Jun, [facility] [address] [id number] [address] [place] [address], [place] [address] Jun, [facility] [address] [id number] [address] [place] [address], [place] [address] May, [facility] [address] [id number] [address] [place] [address], [place] [address] May, [facility] [address] [id number] [address] [place] [address], [place] [address] May, [facility] [address] [id number] [address] [place] [address], [place] [address] May, [facility] [address] [id number] [address] [place] [address], [place] [address] Apr, [facility] [address] [id number] [address] [place] [address], [place] [address] Apr, [facility] [address] [id number] [address] [place] [address], [place] [address] Apr, [facility] [address] [id number] [address] [place] [address], [place] [address] Apr, [facility] [address] [id number] [address] [place] [address], [place] [address] Apr, [facility] [address] [id number] [address] [place] [address], [place] [address] Mar, [facility] [address] [id number] [address] [place] [address], [place] [address] Mar, [facility] [address] [id number] [address] [place] [address], [place] [address] Mar, [facility] [address] [id number] [address] [place] [address], [place] [address] Mar, [facility] [address] [id number] [address] [place] [address] Feb, [facility] [address] [id number] [address] [place] [address], [place] [address] Jan, [facility] [address] [id number] [address] [place] [address], [place] [address] Jan, [facility] [address] [id number] [address] [place] [address], [place] [address] Jan, [facility] [address] [id number] [address] [place] [address], [place] [address] Jan, [facility] [address] [id number] [address] [place] [address], [place] [address] Jan, [facility] [address] [id number] [address] [place] [address], [place] [address] Jan, [facility] [address] [id number] [address] [place] [address], [place] [address] Jan, [facility] [address] [id number] [address] [place] [address], [place] [address] November, [facility] [address] [id number] [address] [place] [address], [place] [address] Sep, [facility] [address] [id number] [address] [place] [address], [place] [address] Sep, [facility] [address] [id number] [address] [place] [address], [place] [address] Aug, [facility] [address] [id number] [address] [place] [address], [place] [address] Aug, [facility] [address] [id number] [address] [place] [address], [place] [address] Jul, [facility] [address] [id number] [address] [place] [address], [place] [address] Jul, [facility] [address] [id number] [address] [place] [address], [place] [address] Jul, [facility] [address] [id number] [address] [place] [address], [place] [address] May, [facility] [address] [id number] [address] [place] [address], [place] [address] Apr, [facility] [address] [id number] [address] [place] [address], [place] [address] Apr, [facility] [address] [id number] [address] [place] [address], [place] [address] Apr, [facility] [address] [id number] [address] [place] [address], [place] [address] Apr, [facility] [address] [id number] [address] [place] [address], [place] [address] Apr, [facility] [address] [id number] [address] [place] [address], [place] [address] Mar, [facility] [address] [id number] [address] [place] [address], [place] [address] Feb, [facility] [address] [id number] [address] [place] [address], [place] [address] Feb, [facility] [address] [id number] [address] [place] [address], [place] [address] Jan, [facility] [address] [id number] [address] [place] [address], [place] [address] Jan, [facility] [address] [id number] [address] [place] [address], [place] [address] November, [facility] [address] [id number] [address] [place] [address], [place] [address] 20 Oct, 2011 [facility] [address] [id number] [address] [place] [address], [place] [address] 19 Oct, 2011 [facility] [address] [id number] [address] [place] [address], [place] [address] 18 Oct, 2011 [facility] [address] [id number] [address] [place] [address], [place] [address] 18 Oct, 2011 [facility] [address] [id number] [address] [place] [address], [place] [address] 16 Oct, 2011 [facility] [address] [id number] [address] [place] [address], [place] [address] 13 Oct, 2011 [facility] [address] [id number] [address] [place] [address], [place] [address] 12 Oct, 2011 [facility] [address] [id number] [address] [place] [address], [place] [address] 11 Oct, 2011 [facility] [address] [id number] [address] [place] [address], [place] [address] 10 Oct, 2011 [facility] [address] [id number] [address] [place] [address], [place] [address] 10 Oct, 2011 [facility] [address] [id number] [address] [place] [address], [place] [address] Sep, [facility] [address] [id number] [address] [place] [address], [place] [address] 10 Aug, 2011 [facility] [address] [id number] [address] [place] [address], [place] [address] Jun, [facility] [address] [id number] [address] [place] [address], [place] [address] 14 Jun, 2011 [facility] [address] [id number] [address] [place] [address], [place] [address] 14 Jun, 2011 [facility] [address] [id number] [address] [place] [address], [place] [address] 14 Jun, 2011 [facility] [address] [id number] [address] [place] [address], [place] [address] 07 Jun, 2011 [facility] [address] [id number] [address] [place] [address], [place] [address] 02 May, 2011 [facility] [address] [id number] [address] [place] [address], [place] [address] Apr, [facility] [address] [id number] [address] [place] [address], [place] [address] 10 Apr, 2011 [facility] [address] [id number] [address] [place] [address], [place] [address] 15 Oct, 2010 [facility] [address] [id number] [address] [place] [address], [place] [address] 09 Jun, 2010 [facility] [address] [id number] [address] [place] [address], [place] [address] 07 Jun, 2010 [facility] [address] [id number] [address] [place] [address] Jun, [facility] [address] [id number] [address] [place] [address] Jun, [facility] [address] [id number] [address] [place] [address] May, [facility] [address] [id number] [address] [place] [address] May, [facility] [address] [id number] [address] [place] [address] May, [facility] [address] [id number] [address] [place] [address] Apr, [facility] [address] [id number] [address] [place] [address] Apr, [facility] [address] [id number] [address] [place] [address] Apr, [facility] [address] [id number] [address] [place] [address] Oct, [facility] [address] [id number] [address] [place] [address] Jul, [facility] [address] [id number] [address] [place] [address] Apr, [facility] [address] [id number] [address] [place] [address] Mar, IMMUNIZATIONS No Known Immunizations SOCIAL HISTORY [...]
--- OUTSIDE RECORDS SUMMARY | 2019-11-10 09:03 | XMS REPORT ---
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 Name Role Phone SYED Hyatt Unavailable PROBLEMS Type Condition ICD9-CM Code [id number] Code Onset Dates Condition S tatus SNOMED Code Problem Loss of weight 783.21 Active 96895 5001 Problem Other malaise and fatigue 780.79 Acti ve 216121144 Problem Pain in soft tissues of limb 729.5 A ctive 31774182 Problem Other specified cardiac dysrhythmias 427.89 Active 578837120 Problem Other and unspecified hyperlipidemia 272.4 Active 51568748 Problem Muscle weakness (generalized) 728.87 Active 24250293 Problem Cervicalgia 723.1 Active 72098923 Problem Unspecified arthropathy, site 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.90 Active 248888098 Problem Unspecified symptom associated with female genital organs 625.9 Active [id number] ALLERGIES No Information ENCOUNTERS Encounter Location Date Diagnosis [facility] [id number] [place] [address] [id number] Sep, Dental caries K02.9 [facility] [address] [facility] [id number] [address] [place] [address] [id number] Sep, [facility] [address] [facility] [id number] [address] [place] [address] [id number] Sep, Dental examination Z01.20 [facility] [address] [facility] [id number] [address] [place] [address] [id number] May, Dental examination Z01.20 [facility] [address] [facility] [id number] [address] [place] [address] [id number] Apr, Dental examination Z01.20 [facility] [address] [facility] [id number] [address] [place] [phone] Dec, [facility] [address] [id number] [address] [place] [address] [id number] Feb, Dental examination Z01.20 [facility] [address] [id number] [address] [place] [address] [id number] Jan, Dental caries K02.9 [facility] [address] [id number] [address] [place] [address] [id number] Dec, Dental examination Z01.20 [facility] [address] [id number] [address] [place] [address] [id number] Oct, Dental examination Z01.20 [facility] [address] [id number] [address] [place] [address] [id number] Aug, Encounter for dental examina tion Z01.20 [facility] [address] [id number] [address] [place] [phone] Aug, [facility] [address] [id number] [address] [place] [phone] Mar, [facility] [address] [id number] [address] [place] [address] [id number] Mar, Dental examination V72.2 [facility] [address] [facility] [id number] [address] [place] [phone] Feb, Unspecified arthropathy, sit e 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.90 ; Psychotic disorder 298.9 and Seborrhea 706.3 [facility] [address] [facility] [id number] [address] [place] [phone] Jan, [facility] [address] [facility] [id number] [address] [place] [phone] Dec, Dizziness 780.4 and Pain in soft tissues of limb 729.5 [facility] [address] [facility] [id number] [address] [place] [phone] Dec, [facility] [address] [facility] [id number] [address] [place] [phone] 14 Oct, 2014 [facility] [address] [id number] [address] [place] [address], [place] [address] 13 Oct, 2014 [facility] [address] [id number] [address] [place] [address], [place] [address] 19 Sep, 2014 [facility] [address] [id number] [address] [place] [address], [place] [address] 19 Sep, 2014 [facility] [address] [id number] [address] [place] [address], [place] [address] 11 Sep, 2014 [facility] [address] [id number] [address] [place] [address], [place] [address] Sep, [facility] [address] [id number] [address] [place] [address], [place] [address] 13 Aug, 2014 [facility] [address] [id number] [address] [place] [address], [place] [address] 13 Aug, 2014 [facility] [address] [id number] [address] [place] [address], [place] [id number] 17 May, 2014 [facility] [address] [id number] [address] [place] [address], [place] [address] 17 May, 2014 [facility] [address] [id number] [address] [place] [address], [place] [address] 17 May, 2014 [facility] [address] [id number] [address] [place] [address], [place] [address] 17 May, 2014 [facility] [address] [id number] [address] [place] [address], [place] [address] 17 May, 2014 [facility] [address] [id number] [address] [place] [address], [place] [address] 17 May, 2014 [facility] [address] [id number] [address] [place] [address], [place] [id number] 17 May, 2014 [facility] [address] [id number] [address] [place] [address], [place] [address] 14 May, 2014 [facility] [address] [id number] [address] [place] [address], [place] [address] May, [facility] [address] [id number] [address] [place] [address], [place] [address] May, [facility] [address] [id number] [address] [place] [address], [place] [address] May, [facility] [address] [id number] [address] [place] [address], [place] [address] Apr, [facility] [address] [id number] [address] [place] [address], [place] [address] Apr, [facility] [address] [id number] [address] [place] [address], [place] [address] Feb, [facility] [address] [id number] [address] [place] [address], [place] [address] Feb, [facility] [address] [id number] [address] [place] [address], [place] [address] Feb, [facility] [address] [id number] [address] [place] [address], [place] [address] Feb, [facility] [address] [id number] [address] [place] [address], [place] [address] Jan, [facility] [address] [id number] [address] [place] [address], [place] [address] Jan, [facility] [address] [id number] [address] [place] [address], [place] [address] Jan, [facility] [address] [id number] [address] [place] [address], [place] [address] Jan, [facility] [address] [id number] [address] [place] [address], [place] [address] Dec, [facility] [address] [id number] [address] [place] [address], [place] [address] Dec, [facility] [address] [id number] [address] [place] [address], [place] [address] Dec, [facility] [address] [id number] [address] [place] [address], [place] [address] Dec, [facility] [address] [id number] [address] [place] [address], [place] [address] Oct, [facility] [address] [id number] [address] [place] [address], [place] [address] Oct, [facility] [address] [id number] [address] [place] [address], [place] [address] Oct, [facility] [address] [id number] [address] [place] [address], [place] [address] Oct, [facility] [address] [id number] [address] [place] [address], [place] [address] Oct, [facility] [address] [id number] [address] [place] [address], [place] [address] Oct, [facility] [address] [id number] [address] [place] [address], [place] [address] Oct, [facility] [address] [id number] [address] [place] [address], [place] [address] Jul, [facility] [address] [id number] [address] [place] [address], [place] [address] Jul, [facility] [address] [id number] [address] [place] [address], [place] [address] Jun, [facility] [address] [id number] [address] [place] [address], [place] [address] Jun, [facility] [address] [id number] [address] [place] [address], [place] [address] Jun, [facility] [address] [id number] [address] [place] [address], [place] [address] Jun, [facility] [address] [id number] [address] [place] [address], [place] [address] May, [facility] [address] [id number] [address] [place] [phone] May, [facility] [address] [id number] [address] [place] [address], [place] [address] May, [facility] [address] [id number] [address] [place] [address], [place] [address] May, [facility] [address] [id number] [address] [place] [address], [place] [address] Apr, [facility] [address] [id number] [address] [place] [address], [place] [address] Apr, [facility] [address] [id number] [address] [place] [address], [place] [address] Apr, [facility] [address] [id number] [address] [place] [address], [place] [address] Apr, [facility] [address] [id number] [address] [place] [address], [place] [address] Apr, [facility] [address] [id number] [address] [place] [address], [place] [address] Mar, [facility] [address] [id number] [address] [place] [address], [place] [address] Mar, [facility] [address] [id number] [address] [place] [address], [place] [address] Mar, [facility] [address] [id number] [address] [place] [address], [place] [address] Mar, [facility] [address] [id number] [address] [place] [address], [place] [address] Feb, [facility] [address] [id number] [address] [place] [address], [place] [address] Jan, [facility] [address] [id number] [address] [place] [address], [place] [address] Jan, [facility] [address] [id number] [address] [place] [address], [place] [address] Jan, [facility] [address] [id number] [address] [place] [address], [place] [address] Jan, [facility] [address] [id number] [address] [place] [address], [place] [address] Jan, [facility] [address] [id number] [address] [place] [address], [place] [address] Jan, [facility] [address] [id number] [address] [place] [address], [place] [address] Jan, [facility] [address] [id number] [address] [place] [address], [place] [address] November, [facility] [address] [id number] [address] [place] [address], [place] [address] Sep, [facility] [address] [id number] [address] [place] [address], [place] [address] Sep, [facility] [address] [id number] [address] [place] [address], [place] [address] Aug, [facility] [address] [id number] [address] [place] [address], [place] [address] Aug, [facility] [address] [id number] [address] [place] [address], [place] [address] Jul, [facility] [address] [id number] [address] [place] [address], [place] [address] Jul, [facility] [address] [id number] [address] [place] [address], [place] [address] Jul, [facility] [address] [id number] [address] [place] [address], [place] [address] May, [facility] [address] [id number] [address] [place] [address], [place] [address] Apr, [facility] [address] [id number] [address] [place] [address], [place] [address] Apr, [facility] [address] [id number] [address] [place] [address], [place] [address] 30 Apr, 2012 [facility] [address] [id number] [address] [place] [address], [place] [address] Apr, [facility] [address] [id number] [address] [place] [address], [place] [address] Apr, [facility] [address] [id number] [address] [place] [address], [place] [address] Mar, [facility] [address] [id number] [address] [place] [address], [place] [address] Feb, [facility] [address] [id number] [address] [place] [address], [place] [address] Feb, [facility] [address] [id number] [address] [place] [address], [place] [address] Jan, [facility] [address] [id number] [address] [place] [address], [place] [address] Jan, [facility] [address] [id number] [address] [place] [address], [place] [address] November, [facility] [address] [id number] [address] [place] [address], [place] [address] 20 Oct, 2011 [facility] [address] [id number] [address] [place] [address], [place] [address] 19 Oct, 2011 [facility] [address] [id number] [address] [place] [address], [place] [address] 18 Oct, 2011 [facility] [address] [id number] [address] [place] [address], [place] [address] 18 Oct, 2011 [facility] [address] [id number] [address] [place] [address], [place] [address] 16 Oct, 2011 [facility] [address] [id number] [address] [place] [address], [place] [address] 13 Oct, 2011 [facility] [address] [id number] [address] [place] [address], [place] [address] 12 Oct, 2011 [facility] [address] [id number] [address] [place] [address], [place] [address] 11 Oct, 2011 [facility] [address] [id number] [address] [place] [address], [place] [address] 10 Oct, 2011 [facility] [address] [id number] [address] [place] [address], [place] [address] 10 Oct, 2011 [facility] [address] [id number] [address] [place] [address], [place] [address] Sep, [facility] [address] [id number] [address] [place] [address], [place] [address] 10 Aug, 2011 [facility] [address] [id number] [address] [place] [address], [place] [address] 26 Jun, 2011 [facility] [address] [id number] [address] [place] [address], [place] [address] 14 Jun, 2011 [facility] [address] [id number] [address] [place] [address], [place] [address] 14 Jun, 2011 [facility] [address] [id number] [address] [place] [address], [place] [address] 14 Jun, 2011 [facility] [address] [id number] [address] [place] [address], [place] [address] 07 Jun, 2011 [facility] [address] [id number] [address] [place] [address], [place] [address] 02 May, 2011 [facility] [address] [id number] [address] [place] [address], [place] [address] 26 Apr, 2011 [facility] [address] [id number] [address] [place] [address], [place] [address] 10 Apr, 2011 [facility] [address] [id number] [address] [place] [address], [place] [address] 15 Oct, 2010 [facility] [address] [id number] [address] [place] [address], [place] [address] 09 Jun, 2010 [facility] [address] [id number] [address] [place] [address], [place] [address] Jun, [facility] [address] [id number] [address] [place] [id number] Jun, [facility] [address] [id number] [address] [place] [id number] Jun, [facility] [address] [id number] [address] [place] [id number] May, [facility] [address] [id number] [address] [place] [phone] May, [facility] [address] [id number] [address] [place] [phone] May, [facility] [address] [id number] [address] [place] [id number] Apr, [facility] [address] [id number] [address] [place] [phone] Apr, [facility] [address] [id number] [address] [place] [id number] Apr, [facility] [address] [id number] [address] [place] [phone] Oct, [facility] [address] [id number] [address] [place] [phone] Jul, [facility] [address] [id number] [address] [place] [id number] Apr, [facility] [address] [id number] [address] [place] [phone] Mar, IMMUNIZATIONS No Known Immunizations SOCIAL HISTORY [...]
--- OUTSIDE RECORDS SUMMARY | 2019-11-10 09:04 | XMS REPORT ---
Author Author Marcela Kinsey Doctor Organization [facility] Address Unknown Phone Unavailable Care Team Providers Care Vegetable Cook Name Role Phone Migration, Doctor Unavailable Unavailable PROBLEMS Type Condition ICD9-CM Code MFM01-MC Code Onset Dates Condition S tatus SNOMED Code Problem Loss of weight 783.21 Active 76825 5001 Problem Other malaise and fatigue 780.79 Acti ve 237350621 Problem Pain in soft tissues of limb 729.5 A ctive 99383217 Problem Other specified cardiac dysrhythmias 427.89 Active 411943031 Problem Other and unspecified hyperlipidemia 272.4 Active 62023960 Problem Muscle weakness (generalized) 728.87 Active 98586679 Problem Cervicalgia 723.1 Active 08357204 Problem Unspecified arthropathy, site 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.90 Active 135976861 Problem Unspecified symptom associated with female genital organs 625.9 Active [id number] ALLERGIES No Information ENCOUNTERS Encounter Location Date Diagnosis [facility] [address] [id number] [address] [place] [address] [id number] Sep, Dental caries K02.9 [facility] [address] [id number] [address] [place] [id number] Sep, [facility] [address] [id number] [address] [place] [address] [id number] Sep, Dental examination Z01.20 [facility] [address] [id number] [address] [place] [address] [id number] May, Dental examination Z01.20 [facility] [address] [id number] [address] [place] [address] [id number] Apr, Dental examination Z01.20 [facility] [address] [id number] [address] [place] [phone] Dec, [facility] [address] [id number] [address] [place] [address] [id number] Feb, Dental examination Z01.20 [facility] [address] [id number] [address] [place] [address] [id number] Jan, Dental caries K02.9 [facility] [address] [id number] [address] [place] [address] [id number] Dec, Dental examination Z01.20 [facility] [address] [id number] [address] [place] [address] [id number] Oct, Dental examination Z01.20 [facility] [address] [id number] [address] [place] [address] [id number] Aug, Encounter for dental examina tion Z01.20 [facility] [place] [address] [id number] [address] [place] [phone] Aug, [facility] [place] [address] [facility] [id number] [address] [place] [phone] Mar, [facility] [address] [id number] [address] [place] [address] [id number] Mar, Dental examination V72.2 [facility] [place] [address] [facility] [id number] [address] [place] [phone] Feb, Unspecified arthropathy, sit e 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.90 ; Psychotic disorder 298.9 and Seborrhea 706.3 [facility] [place] [address] [facility] [id number] [address] [place] [phone] Jan, [facility] [place] [address] [place] [id number] [place] [phone] Dec, Dizziness 780.4 and Pain in soft tissues of limb 729.5 [facility] [place] [address] [facility] [id number] [address] [place] [phone] Dec, [facility] [place] [address] [facility] [id number] [address] [place] [phone] Oct, [facility] [place] [address] [place] [id number] [place] [address] 13 Oct, 2014 [facility] [address] [id number] [facility] [place] [address] 19 Sep, 2014 [facility] [address] [id number] [address] [place] [address], [place] [address] 19 Sep, 2014 [facility] [address] [id number] [facility] [place] [address] 11 Sep, 2014 [facility] [address] [id number] [address] [place] [address], [place] [address] 11 Sep, 2014 [facility] [address] [id number] [address] [place] [address], [place] [address] Aug, [facility] [address] [id number] [address] [place] [address], [place] [address] 13 Aug, 2014 [facility] [address] [id number] [address] [place] [address], [place] [address] 17 May, 2014 [facility] [address] [id number] [address] [place] [address], [place] [address] 17 May, 2014 [facility] [address] [id number] [address] [place] [address], [place] [address] 17 May, 2014 [facility] [address] [id number] [address] [place] [address], [place] [address] 17 May, 2014 [facility] [address] [id number] [address] [place] [address], [place] [address] 17 May, 2014 [facility] [address] [id number] [address] [place] [address], [place] [address] 17 May, 2014 [facility] [address] [id number] [address] [place] [address], [place] [address] 17 May, 2014 [facility] [address] [id number] [address] [place] [address], [place] [address] 14 May, 2014 [facility] [address] [id number] [address] [place] [address], [place] [address] 14 May, 2014 [facility] [address] [id number] [address] [place] [address], [place] [address] May, [facility] [address] [id number] [address] [place] [address], [place] [address] May, [facility] [address] [id number] [address] [place] [address], [place] [address] Apr, [facility] [address] [id number] [address] [place] [address], [place] [address] Apr, [facility] [address] [id number] [address] [place] [address], [place] [address] Feb, [facility] [address] [id number] [address] [place] [address], [place] [address] Feb, [facility] [address] [id number] [address] [place] [address], [place] [address] Feb, [facility] [address] [id number] [address] [place] [address], [place] [address] Feb, [facility] [address] [id number] [address] [place] [address], [place] [address] Jan, [facility] [address] [id number] [address] [place] [address], [place] [address] Jan, [facility] [address] [id number] [address] [place] [address], [place] [address] Jan, [facility] [address] [id number] [address] [place] [address], [place] [address] Jan, [facility] [address] [id number] [address] [place] [address], [place] [address] Dec, [facility] [address] [id number] [address] [place] [address], [place] [address] Dec, [facility] [address] [id number] [address] [place] [address], [place] [address] Dec, [facility] [address] [id number] [address] [place] [address], [place] [address] Dec, [facility] [address] [id number] [address] [place] [address], [place] [address] Oct, [facility] [address] [id number] [address] [place] [address], [place] [address] Oct, [facility] [address] [id number] [address] [place] [address], [place] [address] Oct, [facility] [address] [id number] [address] [place] [address], [place] [address] Oct, [facility] [address] [id number] [address] [place] [address], [place] [address] Oct, [facility] [address] [id number] [address] [place] [address], [place] [address] Oct, [facility] [address] [id number] [address] [place] [address], [place] [address] Oct, [facility] [address] [id number] [address] [place] [address], [place] [address] Jul, [facility] [address] [id number] [address] [place] [address], [place] [address] Jul, [facility] [address] [id number] [address] [place] [address], [place] [address] Jun, [facility] [address] [id number] [address] [place] [address], [place] [address] Jun, [facility] [address] [id number] [address] [place] [address], [place] [address] Jun, [facility] [address] [id number] [address] [place] [address], [place] [address] Jun, [facility] [address] [id number] [address] [place] [address], [place] [address] May, [facility] [address] [id number] [address] [place] [address], [place] [address] May, [facility] [address] [id number] [address] [place] [address], [place] [address] May, [facility] [address] [id number] [address] [place] [address], [place] [address] May, [facility] [address] [id number] [address] [place] [address], [place] [address] Apr, [facility] [address] [id number] [address] [place] [address], [place] [address] Apr, [facility] [address] [id number] [address] [place] [address], [place] [address] Apr, [facility] [address] [id number] [address] [place] [address], [place] [address] Apr, [facility] [address] [id number] [address] [place] [address], [place] [address] Apr, [facility] [address] [id number] [address] [place] [address], [place] [address] Mar, [facility] [address] [id number] [address] [place] [address], [place] [address] Mar, [facility] [address] [id number] [address] [place] [address], [place] [address] Mar, [facility] [address] [id number] [address] [place] [address], [place] [address] Mar, [facility] [address] [id number] [address] [place] [address], [place] [address] Feb, [facility] [address] [id number] [address] [place] [address] Jan, [facility] [address] [id number] [address] [place] [address], [place] [address] Jan, [facility] [address] [id number] [address] [place] [address], [place] [address] Jan, [facility] [address] [id number] [address] [place] [address], [place] [address] Jan, [facility] [address] [id number] [address] [place] [address], [place] [address] Jan, [facility] [address] [id number] [address] [place] [address], [place] [address] Jan, [facility] [address] [id number] [address] [place] [address], [place] [address] Jan, [facility] [address] [id number] [address] [place] [address], [place] [address] November, [facility] [address] [id number] [address] [place] [address], [place] [address] Sep, [facility] [address] [id number] [address] [place] [address], [place] [address] Sep, [facility] [address] [id number] [address] [place] [address], [place] [address] Aug, [facility] [address] [id number] [address] [place] [address], [place] [address] Aug, [facility] [address] [id number] [address] [place] [address], [place] [address] Jul, [facility] [address] [id number] [address] [place] [address], [place] [address] Jul, [facility] [address] [id number] [address] [place] [address], [place] [address] Jul, [facility] [address] [id number] [address] [place] [address], [place] [address] May, [facility] [address] [id number] [address] [place] [address], [place] [address] Apr, [facility] [address] [id number] [address] [place] [address], [place] [address] Apr, [facility] [address] [id number] [address] [place] [address], [place] [address] Apr, [facility] [address] [id number] [address] [place] [address], [place] [address] 17 Apr, 2012 [facility] [address] [id number] [address] [place] [address], [place] [address] 17 Apr, 2012 [facility] [address] [id number] [address] [place] [address], [place] [address] Mar, [facility] [address] [id number] [address] [place] [address], [place] [address] Feb, [facility] [address] [id number] [address] [place] [address], [place] [address] Feb, [facility] [address] [id number] [address] [place] [address], [place] [address] Jan, [facility] [address] [id number] [address] [place] [address], [place] [address] Jan, [facility] [address] [id number] [address] [place] [address], [place] [address] November, [facility] [address] [id number] [address] [place] [address], [place] [address] 20 Oct, 2011 [facility] [address] [id number] [address] [place] [address], [place] [address] 19 Oct, 2011 [facility] [address] [id number] [address] [place] [address], [place] [address] 18 Oct, 2011 [facility] [address] [id number] [address] [place] [address], [place] [address] 18 Oct, 2011 [facility] [address] [id number] [address] [place] [address], [place] [address] 16 Oct, 2011 [facility] [address] [id number] [address] [place] [address], [place] [address] 13 Oct, 2011 [facility] [address] [id number] [address] [place] [address], [place] [address] 12 Oct, 2011 [facility] [address] [id number] [address] [place] [address], [place] [address] 11 Oct, 2011 [facility] [address] [id number] [address] [place] [address], [place] [address] 10 Oct, 2011 [facility] [address] [id number] [address] [place] [address], [place] [address] 10 Oct, 2011 [facility] [address] [id number] [address] [place] [address], [place] [address] Sep, [facility] [address] [id number] [address] [place] [address], [place] [address] 10 Aug, 2011 [facility] [address] [id number] [address] [place] [address], [place] [address] Jun, [facility] [address] [id number] [address] [place] [address], [place] [address] 14 Jun, 2011 [facility] [address] [id number] [address] [place] [address], [place] [address] 14 Jun, 2011 [facility] [address] [id number] [address] [place] [address], [place] [address] 14 Jun, 2011 [facility] [address] [id number] [address] [place] [address], [place] [address] 07 Jun, 2011 [facility] [address] [id number] [address] [place] [address], [place] [address] May, [facility] [address] [id number] [address] [place] [address], [place] [address] Apr, [facility] [address] [id number] [address] [place] [address], [place] [address] 10 Apr, 2011 [facility] [address] [id number] [address] [place] [address], [place] [address] 15 Oct, 2010 [facility] [address] [id number] [address] [place] [address], [place] [address] 09 Jun, 2010 [facility] [address] [id number] [address] [place] [address], [place] [address] 07 Jun, 2010 [facility] [address] [id number] [address] [place] [address], [place] [address] Jun, [facility] [place] [address] [id number] [address] [place] [address] Jun, [facility] [place] [address] [id number] [address] [place] [address] May, [facility] [place] [address] [id number] [address] [place] [address] May, [facility] [place] [address] [id number] [address] [place] [address] May, [facility] [place] [address] [id number] [address] [place] [address] Apr, [facility] [place] [address] [id number] [address] [place] [address] Apr, [facility] [place] [address] [id number] [address] [place] [address] Apr, [facility] [place] [address] [id number] [address] [place] [address] Oct, [facility] [place] [address] [id number] [address] [place] [address] Jul, [facility] [place] [address] [id number] [address] [place] [address] Apr, [facility] [place] [address] [id number] [address] [place] [address] Mar, IMMUNIZATIONS No Known Immunizations SOCIAL HISTORY Never Assessed REASON FOR VISIT [facility] PLAN OF CARE VITAL SIGNS MEDICATIONS No [...]
--- OUTSIDE RECORDS SUMMARY | 2019-11-10 09:04 | XMS REPORT ---
Author Author Marcela Kinsey Doctor Organization [facility] Address Unknown Phone Unavailable Care Team Providers Care Convolute Tube Winder Name Role Phone Migration, Doctor Unavailable Unavailable PROBLEMS Type Condition ICD9-CM Code [id number] Code Onset Dates Condition S tatus SNOMED Code Problem Loss of weight 783.21 Active 57688 5001 Problem Other malaise and fatigue 780.79 Acti ve 681498898 Problem Pain in soft tissues of limb 729.5 A ctive 57019890 Problem Other specified cardiac dysrhythmias 427.89 Active 275100518 Problem Other and unspecified hyperlipidemia 272.4 Active 43712898 Problem Muscle weakness (generalized) 728.87 Active 51547094 Problem Cervicalgia 723.1 Active 24402707 Problem Unspecified arthropathy, site 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.90 Active 453858735 Problem Unspecified symptom associated with female genital organs 625.9 Active 836059048 ALLERGIES No Information ENCOUNTERS Encounter Location Date Diagnosis [facility] [address] [id number] [address] [place] [address] [id number] Sep, Dental caries K02.9 [facility] [address] [id number] [address] [place] [address] [id number] Sep, [facility] [address] [id number] [address] [place] [address] [id number] Sep, Dental examination Z01.20 [facility] [address] [id number] [address] [place] [address] [id number] May, Dental examination Z01.20 [facility] [address] [id number] [address] [place] [address] [id number] Apr, Dental examination Z01.20 [facility] [address] [id number] [address] [place] [id number] Dec, [facility] [address] [id number] [address] [place] [address] [id number] Feb, Dental examination Z01.20 [facility] [address] [id number] [address] [place] [address] [id number] Jan, Dental caries K02.9 [facility] [address] [id number] [address] [place] [address] [id number] Dec, Dental examination Z01.20 [facility] [address] [id number] [address] [place] [address] [id number] Oct, Dental examination Z01.20 [facility] [address] [id number] [address] [place] [address] [id number] Aug, Encounter for dental examina tion Z01.20 [facility] [address] [id number] [address] [place] [phone] Aug, [facility] [address] [facility] [id number] [address] [place] [id number] Mar, [facility] [address] [id number] [address] [place] [address] [id number] Mar, Dental examination V72.2 [facility] [address] [facility] [id number] [address] [place] [id number] Feb, Unspecified arthropathy, sit e 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.90 ; Psychotic disorder 298.9 and Seborrhea 706.3 [facility] [address] [facility] [id number] [address] [place] [phone] Jan, [facility] [address] [place] [id number] [place] [phone] Dec, Dizziness 780.4 and Pain in soft tissues of limb 729.5 [facility] [address] [facility] [id number] [address] [place] [phone] Dec, [facility] [address] [facility] [id number] [address] [place] [phone] Oct, [facility] [address] [place] [id number] [place] [id number] 13 Oct, 2014 [facility] [address] [id number] [facility] [place] [address] 19 Sep, 2014 [facility] [address] [id number] [address] [place] [address], [place] [id number] 19 Sep, 2014 [facility] [address] [id number] [facility] [place] [address] 11 Sep, 2014 [facility] [address] [id number] [address] [place] [address], [place] [id number] 11 Sep, 2014 [facility] [address] [id number] [address] [place] [address], [place] [id number] Aug, [facility] [address] [id number] [address] [place] [address], [place] [id number] 13 Aug, 2014 [facility] [address] [id number] [address] [place] [address], [place] [address] 17 May, 2014 [facility] [address] [id number] [address] [place] [address], [place] [id number] 17 May, 2014 [facility] [address] [id number] [address] [place] [address], [place] [id number] 17 May, 2014 [facility] [address] [id number] [address] [place] [address], [place] [id number] 17 May, 2014 [facility] [address] [id number] [address] [place] [address], [place] [id number] 17 May, 2014 [facility] [address] [id number] [address] [place] [address], [place] [id number] 17 May, 2014 [facility] [address] [id number] [address] [place] [address], [place] [id number] 17 May, 2014 [facility] [address] [id number] [address] [place] [address], [place] [address] 14 May, 2014 [facility] [address] [id number] [address] [place] [address], [place] [id number] 14 May, 2014 [facility] [address] [id number] [address] [place] [address], [place] [address] May, [facility] [address] [id number] [address] [place] [address], [place] [address] May, [facility] [address] [id number] [address] [place] [address], [place] [address] Apr, [facility] [address] [id number] [address] [place] [address], [place] [id number] Apr, [facility] [address] [id number] [address] [place] [address], [place] [address] Feb, [facility] [address] [id number] [address] [place] [address], [place] [id number] Feb, [facility] [address] [id number] [address] [place] [address], [place] [id number] Feb, [facility] [address] [id number] [address] [place] [address], [place] [id number] Feb, [facility] [address] [id number] [address] [place] [address], [place] [address] Jan, [facility] [address] [id number] [address] [place] [address], [place] [id number] Jan, [facility] [address] [id number] [address] [place] [address], [place] [id number] Jan, [facility] [address] [id number] [address] [place] [address], [place] [address] Jan, [facility] [address] [id number] [address] [place] [address], [place] [id number] Dec, [facility] [address] [id number] [address] [place] [address], [place] [address] Dec, [facility] [address] [id number] [address] [place] [address], [place] [id number] Dec, [facility] [address] [id number] [address] [place] [address], [place] [address] Dec, [facility] [address] [id number] [address] [place] [address], [place] [id number] Oct, [facility] [address] [id number] [address] [place] [address], [place] [id number] Oct, [facility] [address] [id number] [address] [place] [address], [place] [address] Oct, [facility] [address] [id number] [address] [place] [address], [place] [address] Oct, [facility] [address] [id number] [address] [place] [address], [place] [address] Oct, [facility] [address] [id number] [address] [place] [address], [place] [address] Oct, [facility] [address] [id number] [address] [place] [address], [place] [id number] Oct, [facility] [address] [id number] [address] [place] [address], [place] [address] Jul, [facility] [address] [id number] [address] [place] [address], [place] [address] Jul, [facility] [address] [id number] [address] [place] [address], [place] [address] Jun, [facility] [address] [id number] [address] [place] [address], [place] [address] Jun, [facility] [address] [id number] [address] [place] [address], [place] [address] Jun, [facility] [address] [id number] [address] [place] [address], [place] [id number] Jun, [facility] [address] [id number] [address] [place] [address], [place] [address] May, [facility] [address] [id number] [address] [place] [address], [place] [id number] May, [facility] [address] [id number] [address] [place] [address], [place] [address] May, [facility] [address] [id number] [address] [place] [address], [place] [address] May, [facility] [address] [id number] [address] [place] [address], [place] [id number] Apr, [facility] [address] [id number] [address] [place] [address], [place] [address] Apr, [facility] [address] [id number] [address] [place] [address], [place] [address] Apr, [facility] [address] [id number] [address] [place] [address], [place] [address] Apr, [facility] [address] [id number] [address] [place] [address], [place] [address] Apr, [facility] [address] [id number] [address] [place] [address], [place] [address] Mar, [facility] [address] [id number] [address] [place] [address], [place] [address] Mar, [facility] [address] [id number] [address] [place] [address], [place] [address] Mar, [facility] [address] [id number] [address] [place] [address], [place] [address] Mar, [facility] [address] [id number] [address] [place] [address], [place] [address] Feb, [facility] [address] [id number] [address] [place] [id number] Jan, [facility] [address] [id number] [address] [place] [address], [place] [id number] Jan, [facility] [address] [id number] [address] [place] [address], [place] [address] Jan, [facility] [address] [id number] [address] [place] [address], [place] [address] Jan, [facility] [address] [id number] [address] [place] [address], [place] [address] Jan, [facility] [address] [id number] [address] [place] [address], [place] [address] Jan, [facility] [address] [id number] [address] [place] [address], [place] [id number] Jan, [facility] [address] [id number] [address] [place] [address], [place] [address] November, [facility] [address] [id number] [address] [place] [address], [place] [address] Sep, [facility] [address] [id number] [address] [place] [address], [place] [id number] Sep, [facility] [address] [id number] [address] [place] [address], [place] [address] Aug, [facility] [address] [id number] [address] [place] [address], [place] [address] Aug, [facility] [address] [id number] [address] [place] [address], [place] [id number] Jul, [facility] [address] [id number] [address] [place] [address], [place] [id number] Jul, [facility] [address] [id number] [address] [place] [address], [place] [address] Jul, [facility] [address] [id number] [address] [place] [address], [place] [address] May, [facility] [address] [id number] [address] [place] [address], [place] [address] Apr, [facility] [address] [id number] [address] [place] [address], [place] [address] Apr, [facility] [address] [id number] [address] [place] [address], [place] [address] Apr, [facility] [address] [id number] [address] [place] [address], [place] [id number] 17 Apr, 2012 [facility] [address] [id number] [address] [place] [address], [place] [id number] 17 Apr, 2012 [facility] [address] [id number] [address] [place] [address], [place] [address] Mar, [facility] [address] [id number] [address] [place] [address], [place] [address] Feb, [facility] [address] [id number] [address] [place] [address], [place] [address] Feb, [facility] [address] [id number] [address] [place] [address], [place] [address] Jan, [facility] [address] [id number] [address] [place] [address], [place] [address] Jan, [facility] [address] [id number] [address] [place] [address], [place] [address] November, [facility] [address] [id number] [address] [place] [address], [place] [id number] 20 Oct, 2011 [facility] [address] [id number] [address] [place] [address], [place] [address] 19 Oct, 2011 [facility] [address] [id number] [address] [place] [address], [place] [address] 18 Oct, 2011 [facility] [address] [id number] [address] [place] [address], [place] [address] 18 Oct, 2011 [facility] [address] [id number] [address] [place] [address], [place] [address] 16 Oct, 2011 [facility] [address] [id number] [address] [place] [address], [place] [address] 13 Oct, 2011 [facility] [address] [id number] [address] [place] [address], [place] [address] 12 Oct, 2011 [facility] [address] [id number] [address] [place] [address], [place] [address] 11 Oct, 2011 [facility] [address] [id number] [address] [place] [address], [place] [address] 10 Oct, 2011 [facility] [address] [id number] [address] [place] [address], [place] [address] 10 Oct, 2011 [facility] [address] [id number] [address] [place] [address], [place] [address] Sep, [facility] [address] [id number] [address] [place] [address], [place] [address] 10 Aug, 2011 [facility] [address] [id number] [address] [place] [address], [place] [address] Jun, [facility] [address] [id number] [address] [place] [address], [place] [address] 14 Jun, 2011 [facility] [address] [id number] [address] [place] [address], [place] [address] 14 Jun, 2011 [facility] [address] [id number] [address] [place] [address], [place] [address] 14 Jun, 2011 [facility] [address] [id number] [address] [place] [address], [place] [id number] 07 Jun, 2011 [facility] [address] [id number] [address] [place] [address], [place] [address] May, [facility] [address] [id number] [address] [place] [address], [place] [address] Apr, [facility] [address] [id number] [address] [place] [address], [place] [id number] 10 Apr, 2011 [facility] [address] [id number] [address] [place] [address], [place] [address] 15 Oct, 2010 [facility] [address] [id number] [address] [place] [address], [place] [id number] 09 Jun, 2010 [facility] [address] [id number] [address] [place] [address], [place] [address] 07 Jun, 2010 [facility] [address] [id number] [address] [place] [address], [place] [address] Jun, [facility] [address] [id number] [address] [place] [id number] Jun, [facility] [address] [id number] [address] [place] [id number] May, [facility] [address] [id number] [address] [place] [id number] May, [facility] [address] [id number] [address] [place] [id number] May, [facility] [address] [id number] [address] [place] [id number] Apr, [facility] [address] [id number] [address] [place] [id number] Apr, [facility] [address] [id number] [address] [place] [id number] Apr, [facility] [address] [id number] [address] [place] [id number] Oct, [facility] [address] [id number] [address] [place] [id number] Jul, [facility] [address] [id number] [address] [place] [id number] Apr, [facility] [address] [id number] [address] [place] [id number] Mar, IMMUNIZATIONS No Known Immunizations SOCIAL HISTORY Never Assessed REASON FOR VISIT [facility] PLAN OF CARE VITAL SIGNS MEDICATIONS No Known Medications RESULTS No Results PROCEDURES Procedure Date Ordered Result Body Site MAMMOGRAM, SCREENING Apr 03, 2013 COMPLETE CBC W/AUTO DIFF WBC Apr 03, 2013 INSTRUCTIONS MEDICATIONS ADMINISTERED No Known Medications MEDICAL [...]
--- OUTSIDE RECORDS SUMMARY | 2019-11-10 09:07 | XMS REPORT | Continuity of Care Document ---
Author Organization Unknown Address Unknown Phone Unavailable Allergies Active Description Code Type Severity Reaction Onset Reported/Identified Relationship to Patient Clinical Status Yes Latex Environment Un known N/A Yes penicillin [id number] Drug Unknown N/A Yes latex OA N/A N/A 11/08/2008 Yes Penicillins Drug Allergy N/A N/A 11/08/2008 Yes latex OA 11/08/2008 Yes Penicillins Drug Allergy 11/08/2008 Yes latex [id number] Drug Allergy Mild N/A 07/22/2013 Yes Penicillins [id number] Drug Aller gy Mild N/A 07/22/2013 Yes latex 8921 Drug Allergy N/A N/A 06/18/2016 Confir med or Verified Yes Penicillins 476 Drug Allergy N/A N/A 06/18/2016 Confir med or Verified Medications There is no data. Problems Date Dx Coded Attending Type Code Diagnosis Diagnosed By LOLLY SUTTON APRN Ot M62.81 MUSCLE WEAKNESS (GENERALIZED) LOLLY SUTTON APRN Ot M79.604 PAIN IN RIGHT LEG LOLLY SUTTON APRN Ot M79.605 PAIN IN LEFT LEG LOLLY SUTTON APRN Ot R26 .9 UNSPECIFIED ABNORMALITIES OF GAIT AND MO 11/08/2008 305.1 INNA NAYELI DEPENDENCE - CONTINUOUS 11/08/2008 345.10 SEI ZURE DISORDER 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 11/08/2008 477.9 SPAS MODIC RHINORRHEA 11/08/2008 780.4 VERTIGO 11/08/2008 786.2 cough 11/08/2008 V48.5 Pain / Temperature Decrease Neck 11/08/2008 VANESSA PERES MD 305.1 NICOTINE DEPENDENCE - CONTINUOUS 11/08/2008 VANESSA PERES MD 345.1 0 SEIZURE DISORDER 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 11/08/2008 VANESSA PERES MD 477.9 SPASMODIC RHINORRHEA 11/08/2008 VANESSA PERES MD 780.4 VERTIGO 11/08/2008 VANESSA PERES MD 786.2 cough 11/08/2008 VANESSA PERES MD V48.5 Pain / Temperature Decrease Neck 11/08/2008 305.1 INNA NAYELI DEPENDENCE - CONTINUOUS 11/08/2008 345.10 SEI ZURE DISORDER 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 11/08/2008 477.9 SPAS MODIC RHINORRHEA 11/08/2008 780.4 VERTIGO 11/08/2008 786.2 cough 11/08/2008 V48.5 Pain / Temperature Decrease Neck 11/08/2008 VANESSA PERES MD 305.1 Nicotine Dependence - Continuous 11/08/2008 VANESSA PERES MD 345.1 0 SEIZURE DISORDER 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 11/08/2008 VANESSA PERES MD 477.9 Spasmodic Rhinorrhea 11/08/2008 VANESSA PERES MD 780.4 Vertigo 11/08/2008 VANESSA PERES MD 786.2 Cough 11/08/2008 VANESSA PERES MD V48.5 Pain / Temperature Decrease Neck 11/08/2008 305.1 Inna nayeli Dependence - Continuous 11/08/2008 345.10 SEI ZURE DISORDER 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 11/08/2008 477.9 Spas modic Rhinorrhea 11/08/2008 780.4 Vertigo 11/08/2008 786.2 Cough 11/08/2008 V48.5 Pain / Temperature Decrease Neck 11/08/2008 VANESSA PERES MD 305.1 Nicotine Dependence - Continuous 11/08/2008 VANESSA PERES MD 345.1 0 SEIZURE DISORDER 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 11/08/2008 VANESSA PERES MD 477.9 Spasmodic Rhinorrhea 11/08/2008 VANESSA PERES MD 780.4 Vertigo 11/08/2008 LARISA SOTELO, VANESSA 786.2 Cough 11/08/2008 VANESSA PERES MD V48.5 Pain / Temperature Decrease Neck 11/08/2008 VANESSA PERES MD 305.1 Nicotine Dependence - Continuous 11/08/2008 VANESSA PERES MD 345.1 0 SEIZURE DISORDER 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 11/08/2008 [...] Dependence - Continuous 11/08/2008 VANESSA PERES MD 345.1 0 SEIZURE DISORDER 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 11/08/2008 VANESSA PERES MD 477.9 Spasmodic Rhinorrhea 11/08/2008 VANESSA PERES MD 780.4 Vertigo 11/08/2008 VANESSA PERES MD 786.2 Cough 11/08/2008 VANESSA PERES MD V48.5 Pain / Temperature Decrease Neck 11/08/2008 VANESSA PERES MD 305.1 Nicotine Dependence - Continuous 11/08/2008 VANESSA PERES MD 345.1 0 SEIZURE DISORDER 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 11/08/2008 VANESSA PERES MD 477.9 Spasmodic Rhinorrhea 11/08/2008 VANESSA PERES MD 780.4 Vertigo 11/08/2008 VANESSA PERES MD 786.2 Cough 11/08/2008 VANESSA PERES MD V48.5 Pain / Temperature Decrease Neck 11/08/2008 VANESSA PERES MD 305.1 Nicotine Dependence - Continuous 11/08/2008 VANESSA PERES MD 345.1 0 SEIZURE DISORDER 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 11/08/2008 VANESSA PERES MD 477.9 Spasmodic Rhinorrhea 11/08/2008 VANESSA PERES MD 780.4 Vertigo 11/08/2008 VANESSA PERES MD 786.2 Cough 11/08/2008 VANESSA PERES MD V48.5 Pain / Temperature Decrease Neck 12/31/2008 294.9 OR C OG DIS NOS 12/31/2008 VANESSA PERES MD 294.9 OR COG DIS NOS 12/31/2008 294.9 OR C OG DIS NOS 12/31/2008 VANESSA PERES MD 294.9 OR COG DIS NOS 12/31/2008 294.9 OR C OG DIS NOS 12/31/2008 VANESSA PERES MD 294.9 [...] 294.9 OR COG DIS NOS 02/26/2009 276.8 HYPO KALEMIA 02/26/2009 VANESSA PERES MD 276.8 HYPOKALEMIA 02/26/2009 276.8 HYPO KALEMIA 02/26/2009 VANESSA PERES MD 276.8 Hypokalemia 02/26/2009 276.8 Hypo kalemia 02/26/2009 VANESSA PERES MD 276.8 Hypokalemia 02/26/2009 VANESSA PERES MD 276.8 Hypokalemia 02/26/2009 STANLEY DO, AUGUSTUS K 276.8 Hypokalemia 02/26/2009 STANLEY DO, AUGUSTUS K 276.8 Hypokalemia 02/26/2009 STANLEY DO, AUGUSTUS K 276.8 Hypokalemia 02/26/2009 VANESSA PERES MD 276.8 Hypokalemia 02/26/2009 VANESSA PERES MD 276.8 Hypokalemia 02/26/2009 VANESSA PERES MD 276.8 Hypokalemia 03/16/2009 465.9 ACUT E UPPER RESPIRATORY INFECTIONS OF UNSPECIFIED SITE 03/16/2009 786.52 JUJU NFUL RESPIRATION 03/16/2009 VANESSA PERES MD 465.9 ACUTE UPPER RESPIRATORY INFECTIONS OF UNSPECIFIED SITE 03/16/2009 VANESSA PERES MD 786.5 2 PAINFUL RESPIRATION 03/16/2009 465.9 ACUT E UPPER RESPIRATORY INFECTIONS OF UNSPECIFIED SITE 03/16/2009 786.52 JUJU NFUL RESPIRATION 03/16/2009 VANESSA PERES MD 465.9 Acute Upper Respiratory Infections Of Unspecified Site 03/16/2009 VANESSA PERES MD 786.5 2 Painful Respiration 03/16/2009 465.9 Acut e Upper Respiratory Infections Of Unspecified Site 03/16/2009 786.52 Juju nful Respiration 03/16/2009 VANESSA PERES MD 465.9 Acute Upper Respiratory Infections Of Unspecified Site 03/16/2009 VANESSA PERES MD 786.5 2 Painful Respiration 03/16/2009 VANESSA PERES MD 465.9 Acute Upper Respiratory Infections Of Unspecified Site 03/16/2009 VANESSA PERES MD 786.5 2 Painful Respiration 03/16/2009 STANLEY DO, AUGUSTUS K [...] Of Unspecified Site 03/16/2009 VANESSA PERES MD 786.5 2 Painful Respiration 03/16/2009 VANESSA PERES MD 465.9 Acute Upper Respiratory Infections Of Unspecified Site 03/16/2009 VANESSA PERES MD 786.5 2 Painful Respiration 03/16/2009 VANESSA PERES MD 465.9 Acute Upper Respiratory Infections Of Unspecified Site 03/16/2009 VANESSA PERES MD 786.5 2 Painful Respiration 07/19/2009 296.9 MOOD DIS NOS 07/19/2009 300.00 ANX IETY UNSPEC 07/19/2009 536.8 DYSP EPSIA AND OTHER SPECIFIED DISORDERS OF FUNCTION OF STOMACH 07/19/2009 VANESSA PERES MD 296.9 MOOD DIS NOS 07/19/2009 VANESSA PERES MD 300.0 0 ANXIETY UNSPEC 07/19/2009 VANESSA PERES MD 536.8 DYSPEPSIA AND OTHER SPECIFIED DISORDERS OF FUNCTION OF STOMACH 07/19/2009 296.9 MOOD DIS NOS 07/19/2009 300.00 ANX IETY UNSPEC 07/19/2009 536.8 DYSP EPSIA AND OTHER SPECIFIED DISORDERS OF FUNCTION OF STOMACH 07/19/2009 VANESSA PERES MD 296.9 MOOD DIS NOS 07/19/2009 VANESSA PERES MD 300.0 0 ANXIETY UNSPEC 07/19/2009 VANESSA PERES MD 536.8 DYSPEPSIA AND OTHER SPECIFIED DISORDERS OF FUNCTION OF STOMACH 07/19/2009 296.9 MOOD DIS NOS 07/19/2009 300.00 ANX IETY UNSPEC 07/19/2009 536.8 DYSP EPSIA AND OTHER SPECIFIED DISORDERS OF FUNCTION OF STOMACH 07/19/2009 VANESSA PERES MD 296.9 MOOD DIS NOS 07/19/2009 VANESSA PERES MD 300.0 0 ANXIETY UNSPEC 07/19/2009 VANESSA PERES MD 536.8 DYSPEPSIA AND OTHER SPECIFIED DISORDERS OF FUNCTION OF STOMACH 07/19/2009 VANESSA PERES MD 296.9 MOOD DIS NOS 07/19/2009 VANESSA PERES MD 300.0 0 ANXIETY UNSPEC 07/19/2009 VANESSA PERES MD 536.8 [...] MOOD DIS NOS 07/19/2009 VANESSA PERES MD 300.0 0 ANXIETY UNSPEC 07/19/2009 VANESSA PERES MD 536.8 DYSPEPSIA AND OTHER SPECIFIED DISORDERS OF FUNCTION OF STOMACH 07/19/2009 VANESSA PERES MD 296.9 MOOD DIS NOS 07/19/2009 VANESSA PERES MD 300.0 0 ANXIETY UNSPEC 07/19/2009 VANESSA PERES MD 536.8 DYSPEPSIA AND OTHER SPECIFIED DISORDERS OF FUNCTION OF STOMACH 07/19/2009 VANESSA PERES MD 296.9 MOOD DIS NOS 07/19/2009 VANESSA PERES MD 300.0 0 ANXIETY UNSPEC 07/19/2009 VANESSA PERES MD 536.8 DYSPEPSIA AND OTHER SPECIFIED DISORDERS OF FUNCTION OF STOMACH 09/03/2009 787.91 LISE RRHEA 09/03/2009 VANESSA PERES MD 787.9 1 DIARRHEA 09/03/2009 787.91 LISE RRHEA 09/03/2009 VANESSA PERES MD 787.9 1 Diarrhea 09/03/2009 787.91 Lise rrhea 09/03/2009 VANESSA PERES MD 787.9 1 Diarrhea 09/03/2009 VANESSA PERES MD 787.9 1 Diarrhea 09/03/2009 SREE STANLEY DOA K 787.91 Diarrhea 09/03/2009 STANLEY DOSREEA K 787.91 Diarrhea 09/03/2009 STANLEY DO AUGUSTUS K 787.91 Diarrhea 09/03/2009 VANESSA PERES MD 787.9 1 Diarrhea 09/03/2009 VANESSA PERES MD 787.9 1 Diarrhea 09/03/2009 VANESSA PERES MD 787.9 1 Diarrhea 10/14/2009 733.00 OST EOPOROSIS 10/14/2009 V49.81 ASY MPTOMATIC POSTMENOPAUSAL STATUS (AGE-RELATED) (NATURAL) 10/14/2009 V72.31 ROU NAYELI GYNECOLOGICAL EXAMINATION 10/14/2009 VANESSA PERES MD 733.0 0 OSTEOPOROSIS 10/14/2009 VANESSA PERES MD V49.8 1 ASYMPTOMATIC POSTMENOPAUSAL STATUS (AGE-RELATED) (NATURAL) 10/14/2009 VANESSA PERES MD V72.3 1 ROUTINE GYNECOLOGICAL EXAMINATION 10/14/2009 733.00 OST EOPOROSIS 10/14/2009 V49.81 ASY MPTOMATIC POSTMENOPAUSAL STATUS (AGE-RELATED) (NATURAL) 10/14/2009 V72.31 ROU NAYELI GYNECOLOGICAL EXAMINATION 10/14/2009 VANESSA PERES MD 733.0 0 OSTEOPOROSIS 10/14/2009 VANESSA PERES MD V49.8 1 ASYMPTOMATIC POSTMENOPAUSAL STATUS (AGE-RELATED) (NATURAL) 10/14/2009 VANESSA PERES MD V72.3 1 Routine Gynecological Examination 10/14/2009 733.00 OST EOPOROSIS 10/14/2009 V49.81 ASY MPTOMATIC POSTMENOPAUSAL STATUS (AGE-RELATED) (NATURAL) 10/14/2009 V72.31 Rou nayeli Gynecological Examination 10/14/2009 VANESSA PERES MD 733.0 0 OSTEOPOROSIS 10/14/2009 VANESSA PERES MD V49.8 1 ASYMPTOMATIC POSTMENOPAUSAL STATUS (AGE-RELATED) (NATURAL) 10/14/2009 VANESSA PERES MD V72.3 1 Routine Gynecological Examination 10/14/2009 VANESSA PERES MD 733.0 0 OSTEOPOROSIS 10/14/2009 VANESSA PERES MD V49.8 1 ASYMPTOMATIC POSTMENOPAUSAL STATUS (AGE-RELATED) (NATURAL) 10/14/2009 VANESSA PERES MD V72.3 1 Routine Gynecological Examination 10/14/2009 STANLEY DO AUGUSTUS K 733.00 OSTEOPOROSIS 10/14/2009 STANLEY DO AUGUSTUS K V49.81 ASYMPTOMATIC POSTMENOPAUSAL STATUS (AGE-RELATED) (NATURAL) 10/14/2009 STANLEY DO AUGUSTUS K V72.31 Routine Gynecological Examination 10/14/2009 STANLEY DO AUGUSTUS K 733.00 OSTEOPOROSIS 10/14/2009 SREE STANLEY DOA K V49.81 ASYMPTOMATIC POSTMENOPAUSAL STATUS (AGE-RELATED) (NATURAL) 10/14/2009 AUGUSTUS STANLEY DO K V72.31 Routine Gynecological Examination 10/14/2009 SREE STANLEY DOA K 733.00 OSTEOPOROSIS 10/14/2009 JADEN CRAFT AUGUSTUS K V49.81 ASYMPTOMATIC POSTMENOPAUSAL STATUS (AGE-RELATED) (NATURAL) 10/14/2009 AUGUSTUS STANLEY DO K V72.31 Routine Gynecological Examination 10/14/2009 VANESSA PERES MD 733.0 0 OSTEOPOROSIS 10/14/2009 VANESSA PERES MD V49.8 1 ASYMPTOMATIC POSTMENOPAUSAL STATUS (AGE-RELATED) (NATURAL) 10/14/2009 VANESSA PERES MD V72.3 1 Routine Gynecological Examination 10/14/2009 VANESSA PERES MD 733.0 0 OSTEOPOROSIS 10/14/2009 VANESSA PERES MD V49.8 1 ASYMPTOMATIC POSTMENOPAUSAL STATUS (AGE-RELATED) (NATURAL) 10/14/2009 VANESSA PERES MD V72.3 1 Routine Gynecological Examination 10/14/2009 VANESSA PERES MD 733.0 0 OSTEOPOROSIS 10/14/2009 VANESSA PERES MD V49.8 1 ASYMPTOMATIC POSTMENOPAUSAL STATUS (AGE-RELATED) (NATURAL) 10/14/2009 VANESSA PERES MD V72.3 1 Routine Gynecological Examination 11/05/2009 307.47 SI DYSSOMNIA NOS 11/05/2009 VANESSA PERES MD 307.4 7 SI DYSSOMNIA NOS 11/05/2009 307.47 SI DYSSOMNIA NOS 11/05/2009 VANESSA PERES MD 307.4 7 SI DYSSOMNIA NOS 11/05/2009 307.47 SI DYSSOMNIA NOS 11/05/2009 VANESSA PERES MD 307.4 7 SI DYSSOMNIA NOS 11/05/2009 VANESSA PERES MD 307.4 7 SI DYSSOMNIA NOS 11/05/2009 AUGUSTUS STANLEY DO 307.47 SI DYSSOMNIA NOS 11/05/2009 AUGUSTUS STANLEY DO 307.47 SI DYSSOMNIA NOS 11/05/2009 AUGUSTUS STANLEY DO 307.47 SI DYSSOMNIA NOS 11/05/2009 VANESSA PERES MD 307.4 7 SI DYSSOMNIA NOS 11/05/2009 VANESSA PERES MD 307.4 7 SI DYSSOMNIA NOS 11/05/2009 VANESSA PERES MD 307.4 7 SI DYSSOMNIA NOS 11/21/2009 331.0 ALZH EIMER'S DISEASE 11/21/2009 333.94 RES TLESS LEGS SYNDROME (RLS) 11/21/2009 787.01 MARINA SEA WITH VOMITING 11/21/2009 789.01 ABD OMINAL PAIN, RIGHT UPPER QUADRANT 11/21/2009 VANESSA PERES MD 331.0 ALZHEIMER'S DISEASE 11/21/2009 VANESSA PERES MD 333.9 4 RESTLESS LEGS SYNDROME (RLS) 11/21/2009 VANESSA PERES MD 787.0 1 NAUSEA WITH VOMITING 11/21/2009 VANESSA PERES MD 789.0 1 ABDOMINAL PAIN, RIGHT UPPER QUADRANT 11/21/2009 331.0 ALZH EIMER'S DISEASE 11/21/2009 333.94 RES TLESS LEGS SYNDROME (RLS) 11/21/2009 787.01 MARINA SEA WITH VOMITING 11/21/2009 789.01 ABD OMINAL PAIN, RIGHT UPPER QUADRANT 11/21/2009 VANESSA PERES MD 331.0 ALZHEIMER'S DISEASE 11/21/2009 VANESSA PERES MD 333.9 4 RESTLESS LEGS SYNDROME (RLS) 11/21/2009 VANESSA PERES MD 787.0 1 Nausea With Vomiting 11/21/2009 VANESSA PERES MD 789.0 1 Abdominal Pain, Right Upper Quadrant 11/21/2009 331.0 ALZH EIMER'S DISEASE 11/21/2009 333.94 RES TLESS LEGS SYNDROME (RLS) 11/21/2009 787.01 Marina sea With Vomiting 11/21/2009 789.01 Abd ominal Pain, Right Upper Quadrant 11/21/2009 VANESSA PERES MD 331.0 ALZHEIMER'S DISEASE 11/21/2009 VANESSA PERES MD 333.9 4 RESTLESS LEGS SYNDROME (RLS) 11/21/2009 VANESSA PERES MD 787.0 1 Nausea With Vomiting 11/21/2009 VANESSA PERES MD 789.0 1 Abdominal Pain, Right Upper Quadrant 11/21/2009 VANESSA PERES MD 331.0 ALZHEIMER'S DISEASE 11/21/2009 VANESSA PERES MD 333.9 4 RESTLESS LEGS SYNDROME (RLS) 11/21/2009 VANESSA PERES MD 787.0 1 Nausea With Vomiting 11/21/2009 VANESSA PERES MD 789.0 1 Abdominal Pain, Right Upper Quadrant 11/21/2009 STANLEY [...] 331.0 ALZHEIMER'S DISEASE 11/21/2009 VANESSA PERES MD 333.9 4 RESTLESS LEGS SYNDROME (RLS) 11/21/2009 VANESSA PERES MD 787.0 1 Nausea With Vomiting 11/21/2009 VANESSA PERES MD 789.0 1 Abdominal Pain, Right Upper Quadrant 11/21/2009 VANESSA PERES MD 331.0 ALZHEIMER'S DISEASE 11/21/2009 VANESSA PERES MD 333.9 4 RESTLESS LEGS SYNDROME (RLS) 11/21/2009 VANESSA PERES MD 787.0 1 Nausea With Vomiting 11/21/2009 VANESSA PERES MD 789.0 1 Abdominal Pain, Right Upper Quadrant 11/21/2009 VANESSA PERES MD 331.0 ALZHEIMER'S DISEASE 11/21/2009 VANESSA PERES MD 333.9 4 RESTLESS LEGS SYNDROME (RLS) 11/21/2009 VANESSA PERES MD 787.0 1 Nausea With Vomiting 11/21/2009 VANESSA PERES MD 789.0 1 Abdominal Pain, Right Upper Quadrant 12/31/2009 V58.69 MED ICATION HIGH RISK 12/31/2009 VANESSA PERES MD V58.6 9 MEDICATION HIGH RISK 12/31/2009 V58.69 MED ICATION HIGH RISK 12/31/2009 VANESSA PERES MD V58.6 9 Medication High Risk 12/31/2009 V58.69 Med ication High Risk 12/31/2009 VANESSA PERES MD V58.6 9 Medication High Risk 12/31/2009 VANESSA PERES MD V58.6 9 Medication High Risk 12/31/2009 STANLEY DO, AUGUSTUS K V58.69 Medication High Risk 12/31/2009 STANLEY DO, AUGUSTUS K V58.69 Medication High Risk 12/31/2009 STANLEY DO, AUGUSTUS K V58.69 Medication High Risk 12/31/2009 VANESSA PERES MD V58.6 9 Medication High Risk 12/31/2009 VANESSA PERES MD V58.6 9 Medication High Risk 12/31/2009 VANESSA PERES MD V58.6 9 Medication High Risk 03/28/2010 578.1 BLOO D IN STOOL 03/28/2010 789.00 ABD OMINAL PAIN UNSPECIFIED SITE 03/28/2010 V76.10 BRYSON AST SCREENING, UNSPECIFIED 03/28/2010 VANESSA PERES MD 578.1 BLOOD IN STOOL 03/28/2010 VANESSA PERES MD 789.0 0 ABDOMINAL PAIN UNSPECIFIED SITE 03/28/2010 VANESSA PERES MD V76.1 0 BREAST SCREENING, UNSPECIFIED 03/28/2010 578.1 BLOO D IN STOOL 03/28/2010 789.00 ABD OMINAL PAIN UNSPECIFIED SITE 03/28/2010 V76.10 BRYSON AST SCREENING, UNSPECIFIED 03/28/2010 VANESSA PERES MD 578.1 Blood In Stool 03/28/2010 VANESSA PERES MD 789.0 0 Abdominal Pain Unspecified Site 03/28/2010 VANESSA PERES MD V76.1 0 Breast Screening, Unspecified 03/28/2010 578.1 Bloo d In Stool 03/28/2010 789.00 Abd ominal Pain Unspecified Site 03/28/2010 V76.10 Bryson ast Screening, Unspecified 03/28/2010 VANESSA PERES MD 578.1 Blood In Stool 03/28/2010 VANESSA PERES MD 789.0 0 Abdominal Pain Unspecified Site 03/28/2010 VANESSA PERES MD V76.1 0 Breast Screening, Unspecified 03/28/2010 VANESSA PERES MD 578.1 Blood In Stool 03/28/2010 VANESSA PERES MD 789.0 0 Abdominal Pain Unspecified Site 03/28/2010 VANESSA PERES MD V76.1 0 Breast Screening, Unspecified 03/28/2010 STANLEY DO, AUGUSTUS K 578.1 Blood In Stool 03/28/2010 STANLEY DO, AUGUSTUS K 789.00 Abdominal Pain Unspecified Site 03/28/2010 STANLEY DO, AUGUSTUS K V76.10 Breast Screening, Unspecified 03/28/2010 STANLEY DO, AUGUSTUS K 578.1 Blood In Stool 03/28/2010 STANLEY DO, AUGUSTUS K 789.00 Abdominal Pain Unspecified Site 03/28/2010 STANLEY DO, AUGUSTUS K V76.10 Breast Screening, Unspecified 03/28/2010 STANLEY DO, AUGUSTUS K 578.1 Blood In Stool 03/28/2010 STANLEY DO, AUGUSTUS K 789.00 Abdominal Pain Unspecified Site 03/28/2010 STANLEY DO, AUGUSTUS K V76.10 Breast Screening, Unspecified 03/28/2010 VANESSA PERES MD 578.1 Blood In Stool 03/28/2010 VANESSA PERES MD 789.0 0 Abdominal Pain Unspecified Site 03/28/2010 VANESSA PERES MD V76.1 0 Breast Screening, Unspecified 03/28/2010 VANESSA PERES MD 578.1 Blood In Stool 03/28/2010 VANESSA PERES MD 789.0 0 Abdominal Pain Unspecified Site 03/28/2010 VANESSA PERES MD V76.1 0 Breast Screening, Unspecified 03/28/2010 VANESSA PERES MD 578.1 Blood In Stool 03/28/2010 VANESSA PERES MD 789.0 0 Abdominal Pain Unspecified Site 03/28/2010 VANESSA PERES MD V76.1 0 Breast Screening, Unspecified 05/07/2010 Ot 562.10 05/07/2010 Ot 565.0 08/28/2010 V68.1 ISSU E OF REPEAT PRESCRIPTIONS 08/28/2010 V70.0 GENE RAL MEDICAL EXAM, ROUTINE, AT HEALTH CARE FACILITY 08/28/2010 VANESSA PERES MD V68.1 ISSUE OF REPEAT PRESCRIPTIONS 08/28/2010 VANESSA PERES MD V70.0 GENERAL MEDICAL EXAM, ROUTINE, AT HEALTH CARE FACILITY 08/28/2010 V68.1 ISSU E OF REPEAT PRESCRIPTIONS 08/28/2010 V70.0 GENE RAL MEDICAL EXAM, ROUTINE, AT HEALTH CARE FACILITY 08/28/2010 VANESSA PERES MD V68.1 Issue Of Repeat Prescriptions 08/28/2010 VANESSA PERES MD V70.0 General Medical Exam, Routine, At Health Care Facility 08/28/2010 V68.1 Issu e Of Repeat Prescriptions 08/28/2010 V70.0 Gene ral Medical Exam, Routine, At Health Care Facility 08/28/2010 VANESSA PERES MD V68.1 Issue Of Repeat Prescriptions 08/28/2010 VANESSA PERES MD V70.0 General Medical Exam, Routine, At Health Care Facility 08/28/2010 VANESSA PERES MD V68.1 Issue Of Repeat Prescriptions 08/28/2010 VANESSA PERES MD V70.0 General Medical Exam, Routine, At Health Care Facility 08/28/2010 SREE STANLEY DOA K V68.1 Issue Of Repeat Prescriptions 08/28/2010 JADEN CRAFT AUGUSTUS K V70.0 General Medical Exam, Routine, At Health Care Facility 08/28/2010 JADEN CRAFT AUGUSTUS K V68.1 Issue Of Repeat Prescriptions 08/28/2010 STANLEY DO AUGUSTUS K V70.0 General Medical Exam, Routine, At Health Care Facility 08/28/2010 STANLEY DO AUGUSTUS K V68.1 Issue Of Repeat Prescriptions 08/28/2010 STANLEY DO AUGUSTUS K V70.0 General Medical Exam, Routine, At Health [...] At Health Care Facility 10/08/2010 Ot 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 10/08/2010 Ot 331.0 ALZH EIMER'S DISEASE 10/08/2010 Ot 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 10/08/2010 Ot 398.90 RHE UMATIC HEART DIS NOS 10/08/2010 Ot 401.9 HYPE RTENSION NOS 10/08/2010 Ot 414.01 COR ONARY ATHEROSCLEROSIS OF [place]-NA CORON 10/08/2010 Ot 530.81 ESO PHAGEAL REFLUX 11/06/2010 696.1 PSOR IASIS 11/06/2010 VANESSA PERES MD 696.1 PSORIASIS 11/06/2010 696.1 PSOR IASIS 11/06/2010 VANESSA PERES MD 696.1 PSORIASIS 11/06/2010 696.1 PSOR IASIS 11/06/2010 VANESSA PERES MD 696.1 PSORIASIS 11/06/2010 VANESSA PERES MD 696.1 PSORIASIS 11/06/2010 AUGUSTUS STANLEY DO 696.1 PSORIASIS 11/06/2010 AUGUSTUS STNALEY DO 696.1 PSORIASIS 11/06/2010 AUGUSTUS STANLEY DO 696.1 PSORIASIS 11/06/2010 VANESSA PERES MD 696.1 PSORIASIS 11/06/2010 VANESSA PERES MD 696.1 PSORIASIS 11/06/2010 VANESSA PERES MD 696.1 PSORIASIS 03/31/2011 466.0 Bron chitis, Acute 03/31/2011 786.07 Whe ezing 03/31/2011 VANESSA PERES MD 466.0 Bronchitis, Acute 03/31/2011 VANESSA PERES MD 786.0 7 Wheezing 03/31/2011 466.0 Bron chitis, Acute 03/31/2011 786.07 Whe ezing 03/31/2011 VANESSA PERES MD 466.0 Bronchitis, Acute 03/31/2011 VANESSA PERES MD 786.0 7 Wheezing 03/31/2011 466.0 Bron chitis, Acute 03/31/2011 786.07 Whe ezing 03/31/2011 VANESSA PERES MD 466.0 Bronchitis, Acute 03/31/2011 VANESSA PERES MD 786.0 7 Wheezing 03/31/2011 VANESSA PERES MD 466.0 Bronchitis, Acute 03/31/2011 VANESSA PERES MD 786.0 7 Wheezing 03/31/2011 STANLEY DO, AUGUSTUS K 466.0 Bronchitis, Acute 03/31/2011 STANLEY DO, AUGUSTUS K 786.07 Wheezing 03/31/2011 STANLEY DO, AUGUSTUS K 466.0 Bronchitis, Acute 03/31/2011 STANLEY DO, AUGUSTUS K 786.07 Wheezing 03/31/2011 STANLEY DO, AUGUSTUS K 466.0 Bronchitis, Acute 03/31/2011 STANLEY DO, AUGUSTUS K 786.07 Wheezing 03/31/2011 VANESSA PERES MD 466.0 Bronchitis, Acute 03/31/2011 VANESSA PERES MD 786.0 7 Wheezing 03/31/2011 VANESSA PERES MD 466.0 Bronchitis, Acute 03/31/2011 VANESSA PERES MD 786.0 7 Wheezing 03/31/2011 VANESSA PERES MD 466.0 Bronchitis, Acute 03/31/2011 VANESSA PERES MD 786.0 7 Wheezing 06/16/2011 Ot 305.1 TOBA FRONT [employer] MECHANIC USE DISORDER 06/16/2011 Ot 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 06/16/2011 Ot 780.4 DIZZ INESS AND GIDDINESS 06/16/2011 Ot 780.79 OTH MALAISE FATIGUE 06/16/2011 Ot V58.69 OTH MED,LT,CURRENT USE 06/17/2011 345.90 SEI ZURE DISORDER 06/17/[address] Pain 06/17/2011 VANESSA PERES MD 345.9 0 SEIZURE DISORDER 06/17/2011 VANESSA PERES MD 786.5 0 Chest Pain 06/17/2011 345.90 SEI ZURE DISORDER 06/17/[address] Pain 06/17/2011 VANESSA PERES MD 345.9 0 Seizure Disorder 06/17/2011 VANESSA PERES MD 786.5 0 Chest Pain 06/17/2011 345.90 Sei zure Disorder 06/17/[address] Pain 06/17/2011 VANESSA PERES MD 345.9 0 Seizure Disorder 06/17/2011 VANESSA PERES MD 786.5 0 Chest Pain 06/17/2011 VANESSA PERES MD 345.9 0 Seizure Disorder 06/17/2011 VANESSA PERES MD 786.5 0 Chest Pain 06/17/2011 STANLEY DO, AUGUSTUS K 345.90 Seizure Disorder 06/17/2011 STANLEY DO, AUGUSTUS K 786.50 Chest Pain 06/17/2011 STANLEY DO, AUGUSTUS K 345.90 Seizure Disorder 06/17/2011 STANLEY DO, AUGUSTUS K 786.50 Chest Pain 06/17/2011 STANLEY DO, AUGUSTUS K 345.90 Seizure Disorder 06/17/2011 STANLEY DO, AUGUSTUS K 786.50 Chest Pain 06/17/2011 VANESSA PERES MD 345.9 0 Seizure Disorder 06/17/2011 VANESSA PERES MD 786.5 0 Chest Pain 06/17/2011 VANESSA PERES MD 345.9 0 Seizure Disorder 06/17/2011 VANESSA PERES MD 786.5 0 Chest Pain 06/17/2011 VANESSA PERES MD 345.9 0 Seizure Disorder 06/17/2011 VANESSA PERES MD 786.5 0 Chest Pain 06/19/2011 Ot 272.4 HYPE RLIPIDEMIA NEC/NOS 06/19/2011 Ot 276.8 HYPO POTASSEMIA 06/19/2011 Ot 294.11 DEM ENTIA IN CONDITIONS W/ BEHAVIORAL DIS 06/19/2011 Ot 311 DEPRES SIVE DISORDER NEC 06/19/2011 Ot 331.0 ALZH EIMER'S DISEASE 06/19/2011 Ot 414.01 COR ONARY ATHEROSCLEROSIS OF [place]-NA CORON 06/19/2011 Ot 427.89 CAR DIAC DYSRHYTHMIAS NEC 06/19/2011 Ot 530.81 ESO PHAGEAL REFLUX 06/19/2011 Ot 696.1 OTHE R PSORIASIS 06/19/2011 Ot 780.39 OTH ER CONVULSIONS 06/19/2011 Ot 781.2 ABNO RMALITY OF GAIT 06/19/[address] PAIN NEC 06/19/2011 Ot E941.0 ADV EFF CHOLINERGICS 06/19/2011 Ot E942.5 ADV EFF VASODILATORS NEC 10/14/2011 723.1 Cerv icalgia 10/14/2011 729.5 PAIN IN LIMB 10/14/2011 780.79 MAL AISE AND FATIGUE 10/14/2011 783.21 SAMI GHT LOSS 10/14/2011 V72.62 LAB SCREENING- GENERAL PHYSICAL 10/14/2011 V78.0 ANEM IA SCREENING 10/14/2011 VANESSA PERES MD 723.1 Cervicalgia 10/14/2011 VANESSA PERES MD 729.5 PAIN IN LIMB 10/14/2011 VANESSA PERES MD 780.7 9 MALAISE AND FATIGUE 10/14/2011 VANESSA PERES MD 783.2 1 WEIGHT LOSS 10/14/2011 VANESSA PERES MD V72.6 2 LAB SCREENING- GENERAL PHYSICAL 10/14/2011 VANESSA PERES MD V78.0 ANEMIA SCREENING 10/14/2011 723.1 Cerv icalgia 10/14/2011 729.5 PAIN IN LIMB 10/14/2011 780.79 MAL AISE AND FATIGUE 10/14/2011 783.21 SAMI GHT LOSS 10/14/2011 V72.62 LAB SCREENING- GENERAL PHYSICAL 10/14/2011 V78.0 ANEM IA SCREENING 10/14/2011 VANESSA PERES MD 723.1 Cervicalgia 10/14/2011 VANESSA PERES MD 729.5 Pain In Limb 10/14/2011 VANESSA PERES MD 780.7 9 Malaise And Fatigue 10/14/2011 VANESSA PERES MD 783.2 1 Weight Loss 10/14/2011 VANESSA PERES MD V72.6 2 Lab Screening- General Physical 10/14/2011 VANESSA PERES MD V78.0 ANEMIA SCREENING 10/14/2011 723.1 Cerv icalgia 10/14/2011 729.5 Pain In Limb 10/14/2011 780.79 Mal aise And Fatigue 10/14/2011 783.21 Sami ght Loss 10/14/2011 V72.62 Lab Screening- General Physical 10/14/2011 V78.0 ANEM IA SCREENING 10/14/2011 VANESSA PERES MD 723.1 Cervicalgia 10/14/2011 VANESSA PERES MD 729.5 Pain In Limb 10/14/2011 VANESSA PERES MD 780.7 9 Malaise And Fatigue 10/14/2011 VANESSA PERES MD 783.2 1 Weight Loss 10/14/2011 VANESSA PERES MD V72.6 2 Lab Screening- General Physical 10/14/2011 VANESSA PERES MD V78.0 ANEMIA SCREENING 10/14/2011 VANESSA PERES MD 723.1 Cervicalgia 10/14/2011 VANESSA PERES MD 729.5 Pain In Limb 10/14/2011 VANESSA PERES MD 780.7 9 Malaise And Fatigue 10/14/2011 VANESSA PERES MD 783.2 1 Weight Loss 10/14/2011 VANESSA PERES MD V72.6 2 Lab Screening- General Physical 10/14/2011 VANESSA PERES [...] DO, AUGUSTUS K V78.0 ANEMIA SCREENING 10/14/2011 VANESSA PERSE MD 723.1 Cervicalgia 10/14/2011 VANESSA PERES MD 729.5 Pain In Limb 10/14/2011 VANESSA PERES MD 780.7 9 Malaise And Fatigue 10/14/2011 VANESSA PERES MD 783.2 1 Weight Loss 10/14/2011 VANESSA PERES MD V72.6 2 Lab Screening- General Physical 10/14/2011 VANESSA PERES MD V78.0 ANEMIA SCREENING 10/14/2011 VANESSA PERES MD 723.1 Cervicalgia 10/14/2011 VANESSA PERES MD 729.5 Pain In Limb 10/14/2011 VANESSA PERES MD 780.7 9 Malaise And Fatigue 10/14/2011 VANESSA PERES MD 783.2 1 Weight Loss 10/14/2011 VANESSA PERES MD V72.6 2 Lab Screening- General Physical 10/14/2011 VANESSA PERES MD V78.0 ANEMIA SCREENING 10/14/2011 VANESSA PERES MD 723.1 Cervicalgia 10/14/2011 VANESSA PERES MD 729.5 Pain In Limb 10/14/2011 VANESSA PERES MD 780.7 9 Malaise And Fatigue 10/14/2011 VANESSA PERES MD 783.2 1 Weight Loss 10/14/2011 VANESSA PERES MD V72.6 2 Lab Screening- General Physical 10/14/2011 VANESSA PERES MD V78.0 ANEMIA SCREENING 05/03/2012 272.4 OTHE R AND UNSPECIFIED HYPERLIPIDEMIA 05/03/2012 VANESSA PERES MD 272.4 OTHER AND UNSPECIFIED HYPERLIPIDEMIA 05/03/2012 272.4 OTHE R AND UNSPECIFIED HYPERLIPIDEMIA 05/03/2012 VANESSA PERES MD 272.4 OTHER AND UNSPECIFIED HYPERLIPIDEMIA 05/03/2012 272.4 OTHE R AND UNSPECIFIED HYPERLIPIDEMIA 05/03/2012 VANESSA PERES MD 272.4 OTHER AND UNSPECIFIED HYPERLIPIDEMIA 05/03/2012 VANESSA PERES MD 272.4 OTHER AND UNSPECIFIED HYPERLIPIDEMIA 05/03/2012 STANLEY DOAUGUSTUS K 272.4 OTHER AND UNSPECIFIED HYPERLIPIDEMIA 05/03/2012 STANLEY DO AUGUSTUS K 272.4 OTHER AND UNSPECIFIED HYPERLIPIDEMIA 05/03/2012 STANLEY DO AUGUSTUS K 272.4 OTHER AND UNSPECIFIED HYPERLIPIDEMIA 05/03/2012 VANESSA PERES MD 272.4 OTHER AND UNSPECIFIED HYPERLIPIDEMIA 05/03/2012 VANESSA PERES MD 272.4 OTHER AND UNSPECIFIED HYPERLIPIDEMIA 05/03/2012 VANESSA PERES MD 272.4 OTHER AND UNSPECIFIED HYPERLIPIDEMIA 07/07/2012 VANESSA PERES MD 466.0 ACUTE BRONCHITIS 07/07/2012 466.0 ACUT E BRONCHITIS 07/07/2012 VANESSA PERES MD 466.0 Acute Bronchitis 07/07/2012 466.0 Acut e Bronchitis 07/07/2012 VANESSA PERES MD 466.0 Acute Bronchitis 07/07/2012 VANESSA PERES MD 466.0 Acute Bronchitis 07/07/2012 AUGUSTUS STANLEY DO 466.0 Acute Bronchitis 07/07/2012 AUGUSTUS STANLEY DO K 466.0 Acute Bronchitis 07/07/2012 AUGUSTUS STANLEY DO K 466.0 Acute Bronchitis 07/07/2012 VANESSA PERES MD 466.0 Acute Bronchitis 07/07/2012 VANESSA PERES MD 466.0 Acute Bronchitis 07/07/2012 VANESSA PERES MD 466.0 Acute Bronchitis 08/26/2012 VANESSA PERES MD 427.8 9 OTHER SPECIFIED CARDIAC DYSRHYTHMIAS 08/26/2012 427.89 OT ER SPECIFIED CARDIAC DYSRHYTHMIAS 08/26/2012 VANESSA PERES MD 427.8 9 OTHER SPECIFIED CARDIAC DYSRHYTHMIAS 08/26/2012 VANESSA PERES MD 427.8 9 OTHER SPECIFIED CARDIAC DYSRHYTHMIAS 08/26/2012 AUGUSTUS STANLEY DO 427.89 OTHER SPECIFIED CARDIAC DYSRHYTHMIAS 08/26/2012 AUGUSTUS STANLEY DO K 427.89 OTHER SPECIFIED CARDIAC DYSRHYTHMIAS 08/26/2012 AUGUSTUS STANLEY DO 427.89 OTHER SPECIFIED CARDIAC DYSRHYTHMIAS 08/26/2012 VANESSA PERES MD 427.8 9 OTHER SPECIFIED CARDIAC DYSRHYTHMIAS 08/26/2012 VANESSA PERES MD 427.8 9 OTHER SPECIFIED CARDIAC DYSRHYTHMIAS 08/26/2012 VANESSA PERES MD 427.8 9 OTHER SPECIFIED CARDIAC DYSRHYTHMIAS 10/16/2012 Ot 272.4 HYPE RLIPIDEMIA NEC/NOS 10/16/2012 Ot 414.00 COR ON ATHEROSCLER NOS TYPE VESSEL, NATIV 10/16/2012 Ot 427.89 CAR DIAC DYSRHYTHMIAS NEC 10/16/2012 Ot 491.9 CARPENTER HELPER MAINTENANCE MARIA GUADALUPE BRONCHITIS NOS 05/02/2013 VANESSA PERES MD 625.9 [...] 461.9 SINUSITIS ACUTE 05/16/2013 AUGUSTUS STANLEY DO K 461.9 SINUSITIS ACUTE 05/16/2013 VANESSA PERES MD 461.9 SINUSITIS ACUTE 05/16/2013 VANESSA PERES MD 461.9 SINUSITIS ACUTE 05/16/2013 VANESSA PERES MD 461.9 SINUSITIS ACUTE 07/22/2013 SREE STANLEY DOA Travis Ot 272.4 HYPERLIPIDEMIA NEC/NOS 07/22/2013 SREE STANLEY DOA Travis Ot 294.10 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 07/22/2013 SREE STANLEY DOA K Ot 311 DEPRESSIVE DISORDER NEC 07/22/2013 SREE STANLEY DOA K Ot 331.0 ALZHEIMER'S DISEASE 07/22/2013 SREE STANLEY DOA Travis Ot 345.90 EPILEPSY UNSPEC W/O MENTION INTRACTABLE 07/22/2013 SREE STANLEY DOA K Ot 401.9 HYPERTENSION NOS 07/22/2013 SREE STANLEY DOA K Ot 414.01 CORONARY ATHEROSCLEROSIS OF [place] CORON 07/22/2013 SREE STANLEY DOA K Ot 426.4 RT BUNDLE BRANCH BLOCK 07/22/2013 SREE STANLEY DOA K Ot 427.89 CARDIAC DYSRHYTHMIAS NEC 07/22/2013 SREE STANLEY DOA K Ot 443.9 PERIPH VASCULAR DIS NOS 07/22/2013 RSEE STANLEY DOA K Ot 458.9 HYPOTENSION NOS 07/22/2013 SREE STANLEY DOA K Ot 530.81 ESOPHAGEAL REFLUX 07/22/2013 SREE STANLEY DOA K Ot 715.90 OSTEOARTHROS NOS-UNSPEC 07/22/2013 AUGUSTUS STANLEY [...] OTH MED,LT,CURRENT USE 02/02/2014 VANESSA PERES MD 716.9 0 UNSPECIFIED ARTHROPATHY SITE UNSPECIFIED 02/02/2014 VANESSA PERES MD 728.8 7 MUSCLE WEAKNESS (GENERALIZED) 02/02/2014 VANESSA PERES MD 716.9 0 UNSPECIFIED ARTHROPATHY SITE UNSPECIFIED 02/02/2014 VANESSA PERES MD 728.8 7 MUSCLE WEAKNESS (GENERALIZED) 02/02/2014 VANESSA PERES MD 716.9 0 UNSPECIFIED ARTHROPATHY SITE UNSPECIFIED 02/02/2014 VANESSA PERES MD 728.8 7 MUSCLE WEAKNESS (GENERALIZED) 07/04/2015 BELINDA RIVERA DO Ot Z12.31 07/16/2015 BELINDA RIVERA DO Ot Z12.31 10/05/2015 Ot F03.90 UNS PECIFIED DEMENTIA WITHOUT BEHAVIORAL 10/05/2015 Ot I10 ESSENT IAL (PRIMARY) HYPERTENSION 10/05/2015 Ot J40 BRONCH ITIS, NOT SPECIFIED ACUTE OR CH 10/05/2015 Ot N39.0 URIN STEPHANI TRACT INFECTION, SITE NOT SPECIF 10/07/2015 Ot V76.12 10/07/2015 Ot 722.4 10/07/2015 Ot 724.1 10/07/2015 Ot 729.5 10/07/2015 Ot 785.9 10/07/2015 Ot 780.39 10/07/2015 Ot 272.4 10/07/2015 Ot 414.00 10/07/2015 Ot 427.89 10/07/2015 Ot 491.9 10/07/2015 BELINDA RIVERA DO Ot 278.00 10/07/2015 BELINDA RIVERA DO Ot 625.9 10/07/2015 BELINDA RIVERA DO Ot V76.12 10/07/2015 BRANDIE SOTELO, INGA Oleary Ot 272. 4 10/07/2015 BRANDIE SOTELO, INGA Oleary Ot 305. 1 10/07/2015 BRANDIE SOTELO, INGA Oleary Ot 401. 9 10/07/2015 BRANDIE SOTELO, INGA Oleary Ot 414. 00 10/07/2015 BRANDIE SOTELO, INGA Oleary Ot 427. 81 10/07/2015 BRANDIE SOTELO, INGA Oleary Ot 530. 81 10/07/2015 ROZ SOTELO FAC, ALI [facility] CCDS Ot 789.30 10/07/2015 BELINDA RIVERA DO Ot Z12.31 10/07/2015 Ot V76.12 10/07/2015 Ot 722.4 10/07/2015 Ot 724.1 10/07/2015 Ot 729.5 10/07/2015 Ot 785.9 10/07/2015 Ot 780.39 10/07/2015 Ot 272.4 10/07/2015 Ot 414.00 10/07/2015 Ot 427.89 10/07/2015 Ot 491.9 10/07/2015 BELINDA RIVERA DO Ot 278.00 10/07/2015 BELINDA RIVERA DO Ot 625.9 10/07/2015 BELINDA RIVERA DO Ot V76.12 10/07/2015 BRANDIE SOTELO, INGA Oleary Ot 272. 4 10/07/2015 BRANDIE SOTELO, INGA Oleary Ot 305. 1 10/07/2015 BRANDIE SOTELO, INGA Oleary Ot 401. 9 10/07/2015 BRANDIE SOTELO, INGA Oleary Ot 414. 00 10/07/2015 BRANDIE SOTELO, INGA Oleary Ot 427. 81 10/07/2015 BRANDIE SOTELO, INGA Oleary Ot 530. 81 10/07/2015 ROZ SOTELO FAC, ALI [facility] CCDS Ot 789.30 10/07/2015 BELINDA RIVERA DO S Ot Z12.31 10/11/2015 Ot F03.90 10/11/2015 Ot [...] MD Ot I25.10 ATHSCL HEART DISEASE OF [place] CORONARY 10/14/2015 RAE BUTLER MD Ot K21.9 GASTRO-ESOPHAGEAL REFLUX DISEASE WITHOUT 10/14/2015 RAE BUTLER MD Ot M79.89 OTHER SPECIFIED SOFT TISSUE DISORDERS 10/14/2015 RAE BUTLER MD Ot R00.1 BRADYCARDIA, UNSPECIFIED 10/14/2015 RAE BUTLER MD Ot R07.9 CHEST PAIN, UNSPECIFIED 10/14/2015 RAE BUTLER MD Ot R10.13 EPIGASTRIC PAIN 10/14/2015 RAE BUTLER MD Ot R74.8 ABNORMAL LEVELS OF OTHER SERUM ENZYMES 10/31/2015 Ot V76.12 OTH SCREEN MAMMO- MALIGN NEOPLASM OF [place] 10/31/2015 Ot 722.4 CERV ICAL DISC DEGEN 10/31/2015 Ot 724.1 PAIN IN THORACIC SPINE 10/31/2015 Ot 729.5 PAIN IN LIMB 10/31/2015 Ot 785.9 CARD IOVAS SYS SYMP NEC 10/31/2015 Ot 780.39 OTH ER CONVULSIONS 10/31/2015 Ot 272.4 HYPE RLIPIDEMIA NEC/NOS 10/31/2015 Ot 414.00 COR ON ATHEROSCLER NOS TYPE VESSEL, NATIV 10/31/2015 Ot 427.89 CAR DIAC DYSRHYTHMIAS NEC 10/31/2015 Ot 491.9 CARPENTER HELPER MAINTENANCE MARIA GUADALUPE BRONCHITIS NOS 10/31/2015 BELINDA RIVERA DO Ot 278.00 OBESITY, NOS 10/31/2015 BELINDA RIVERA DO Ot 625.9 FEM GENITAL SYMPTOMS NOS 10/31/2015 FENECH DO, BELINDA S Ot V76.12 OTH SCREEN MAMMO-MALIGN NEOPLASM OF [place] 10/31/2015 INGA DIEGO MD Ot 272. 4 HYPERLIPIDEMIA NEC/NOS 10/31/2015 INGA DIEGO MD Ot 305. 1 TOBACCO USE DISORDER 10/31/2015 INGA DIEGO MD Ot 401. 9 HYPERTENSION NOS 10/31/2015 INGA DIEGO MD Ot 414. 00 CORON ATHEROSCLER NOS TYPE VESSEL, NATIV 10/31/2015 INGA DIEGO MD Ot 427. 81 SINOATRIAL NODE DYSFUNCT 10/31/2015 INGA DIEGO MD Ot 530. 81 ESOPHAGEAL REFLUX 10/31/2015 ROZ SOTELO FACC, ALI FACP CCDS Ot 789.30 ABDOMINAL/PELVIC SWELLING,MASS/LUMP UNSP 10/31/2015 BELINDA RIVERA DO S Ot Z12.31 ENCNTR SCREEN MAMMOGRAM FOR MALIGNANT NE 05/01/2016 PUSHPA SOTELO, INDIA Sims Ot Z01.818 ENCOUNTER FOR OTHER PREPROCEDURAL EXAMIN 05/01/2016 PUSHPA SOTELO, IND[place] Sims Ot Z12.11 ENCOUNTER FOR SCREENING FOR MALIGNANT NE 05/04/2016 PUSHPA SOTELO, IND[place] Sims Ot Z01.818 ENCOUNTER FOR OTHER PREPROCEDURAL EXAMIN 05/04/2016 PUSHPA SOTELO, IND[place] Sims Ot Z12.11 ENCOUNTER FOR SCREENING FOR MALIGNANT NE 06/10/2016 RYAN VALENZUELA APRN Ot F03.90 UNSPECIFIED DEMENTIA WITHOUT BEHAVIORAL 06/10/2016 RYAN VALENZUELA APRN Ot G40.909 EPILEPSY, UNSP, NOT INTRACTABLE, WITHOUT 06/10/2016 RYAN VALENZUELA APRN Ot J40 BRONCHITIS, NOT SPECIFIED ACUTE OR CH 06/10/2016 RYAN VALENZUELA STORE MGR Ot R06.02 SHORTNESS OF BREATH 06/10/2016 RYAN VALENZUELA APRN Ot R42 DIZZINESS AND GIDDINESS 06/10/2016 RYAN VALENZUELA APRN Ot Z79.82 AIRCRAFT ENGINE DISMANTLER (CURRENT) USE OF ASPIRIN 06/10/2016 RYAN VALENZUELA APRN Ot Z79.899 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 06/10/2016 RYAN VALENZUELA APRN Ot Z87.820 PERSONAL HISTORY OF TRAUMATIC BRAIN INJU 06/10/2016 Ot V76.12 OTH SCREEN MAMMO- MALIGN NEOPLASM OF [place] 06/10/2016 Ot 722.4 CERV ICAL DISC DEGEN 06/10/2016 Ot 724.1 PAIN IN THORACIC SPINE 06/10/2016 Ot 729.5 PAIN IN LIMB 06/10/2016 Ot 785.9 CARD IOVAS SYS SYMP NEC 06/10/2016 Ot 780.39 OTH ER CONVULSIONS 06/10/2016 Ot 272.4 HYPE RLIPIDEMIA NEC/NOS 06/10/2016 Ot 414.00 COR ON ATHEROSCLER NOS TYPE VESSEL, NATIV 06/10/2016 Ot 427.89 CAR DIAC DYSRHYTHMIAS NEC 06/10/2016 Ot 491.9 CARPENTER HELPER MAINTENANCE MARIA GUADALUPE BRONCHITIS NOS 06/10/2016 FENECH DO, BELINDA S Ot 278.00 OBESITY, NOS 06/10/2016 FENECH DO, BELINDA S Ot 625.9 FEM GENITAL SYMPTOMS NOS 06/10/2016 FENECH DO, BELINDA S Ot V76.12 OTH SCREEN MAMMO-MALIGN NEOPLASM OF [place] 06/10/2016 INGA DIEGO MD Ot 272. 4 HYPERLIPIDEMIA NEC/NOS 06/10/2016 INGA DIEGO MD Ot 305. 1 TOBACCO USE DISORDER 06/10/2016 INGA DIEGO MD Ot 401. 9 HYPERTENSION NOS 06/10/2016 INGA DIEGO MD Ot 414. 00 CORON ATHEROSCLER NOS TYPE VESSEL, NATIV 06/10/2016 INGA DIEGO MD Ot 427. 81 SINOATRIAL NODE DYSFUNCT 06/10/2016 INGA DIEGO MD Ot 530. 81 ESOPHAGEAL REFLUX 06/10/2016 ROZ SOTELO FACC, ALI FACP CCDS Ot 789.30 ABDOMINAL/PELVIC SWELLING,MASS/LUMP UNSP 06/10/2016 FENECH DO BELINDA S Ot Z12.31 ENCNTR SCREEN [...] disord, crnt episode mixed, severe, w psych fe atures 07/02/2016 LEI VILLEGAS MD J06.9 Acute upper [...] nicotine dependence 08/03/2016 FABIOLA HERNANDEZ DO, Ot I1 0 ESSENTIAL (PRIMARY) HYPERTENSION 08/03/2016 FABIOLA HERNANDEZ DO, Ot I25.10 ATHSCL HEART DISEASE OF [place] CORONARY 08/03/2016 FABIOLA HERNANDEZ DO, Ot S01.01XA LACERATION WITHOUT FOREIGN BODY OF SCALP 08/03/2016 FABIOLA HERNANDEZ DO, Ot W01.0XXA FALL SAME LEV FROM SLIP/TRIP W/O STRIKE 08/03/2016 FABIOLA HERNANDEZ DO, Ot Y99.8 OTHER EXTERNAL CAUSE STATUS 08/03/2016 FABIOLA HERNANDEZ DO, Ot Z2 3 ENCOUNTER FOR IMMUNIZATION 08/03/2016 FABIOLA HERNANDEZ DO, Ot Z79.82 AIRCRAFT ENGINE DISMANTLER (CURRENT) USE OF ASPIRIN 08/03/2016 FABIOLA HERNANDEZ DO, Ot Z79.899 OTHER LONG-TERM (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 THERAPY 08/04/2016 FABIOLA HERNANDEZ DO, Ot I1 0 ESSENTIAL (PRIMARY) HYPERTENSION 08/04/2016 FABIOLA HERNANDEZ DO, Ot I25.10 ATHSCL HEART DISEASE OF [place] CORONARY 08/04/2016 FABIOLA HERNANDEZ DO, Ot S01.01XA LACERATION WITHOUT FOREIGN BODY OF SCALP 08/04/2016 FABIOLA HERNANDEZ DO, Ot W01.0XXA FALL SAME LEV FROM SLIP/TRIP W/O STRIKE 08/04/2016 FABIOLA HERNANDEZ DO, Ot Y99.8 OTHER EXTERNAL CAUSE STATUS 08/04/2016 FABIOLA HERNANDEZ DO Ot Z2 3 ENCOUNTER FOR IMMUNIZATION 08/04/2016 FABIOLA HERNANDEZ DO Ot Z79.82 LONG-TERM (CURRENT) USE OF ASPIRIN 08/04/2016 FABIOLA HERNANDEZ DO Ot Z79.899 OTHER LONG-TERM (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 THERAPY 08/11/2016 FABIOLA HERNANDEZ DO Ot I1 0 ESSENTIAL (PRIMARY) HYPERTENSION 08/11/2016 FABIOLA HERNANDEZ DO, Ot I25.10 ATHSCL HEART DISEASE OF [place] CORONARY 08/11/2016 FABIOLA HERNANDEZ DO Ot S01.01XA LACERATION WITHOUT FOREIGN BODY OF SCALP 08/11/2016 FABIOLA HERNANDEZ DO Ot W01.0XXA FALL SAME LEV FROM SLIP/TRIP W/O STRIKE 08/11/2016 FABIOLA HERNANDEZ DO Ot Y99.8 OTHER EXTERNAL CAUSE STATUS 08/11/2016 FABIOLA HERNANDEZ DO, Ot Z2 3 ENCOUNTER FOR IMMUNIZATION 08/11/2016 FABIOLA HERNANDEZ DO, Ot Z79.82 LONG-TERM (CURRENT) USE OF ASPIRIN 08/11/2016 FABIOLA HERNANDEZ DO, Ot Z79.899 OTHER LONG-TERM (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 THERAPY 08/24/2016 Ot V76.12 OTH SCREEN MAMMO- MALIGN NEOPLASM OF [place] 08/24/2016 Ot 722.4 CERV ICAL DISC DEGEN 08/24/2016 Ot 724.1 PAIN IN THORACIC SPINE 08/24/2016 Ot 729.5 PAIN IN LIMB 08/24/2016 Ot 785.9 CARD IOVAS SYS SYMP NEC 08/24/2016 Ot 780.39 OTH ER CONVULSIONS 08/24/2016 Ot 272.4 HYPE RLIPIDEMIA NEC/NOS 08/24/2016 Ot 414.00 COR ON ATHEROSCLER NOS TYPE VESSEL, NATIV 08/24/2016 Ot 427.89 CAR DIAC DYSRHYTHMIAS NEC 08/24/2016 Ot 491.9 CARPENTER HELPER MAINTENANCE MARIA GUADALUPE BRONCHITIS NOS 08/24/2016 BELINDA RIVERA DO Ot 278.00 OBESITY, NOS 08/24/2016 BELINDA RIVERA DO Ot 625.9 FEM GENITAL SYMPTOMS NOS 08/24/2016 BELINDA RIVERA DO Ot V76.12 OTH SCREEN MAMMO-MALIGN NEOPLASM OF [place] 08/24/2016 INGA DIEGO MD Ot 272. 4 HYPERLIPIDEMIA NEC/NOS 08/24/2016 INGA DIEGO MD Ot 305. 1 TOBACCO USE DISORDER 08/24/2016 INGA DIEGO MD Ot 401. 9 HYPERTENSION NOS 08/24/2016 INGA DIEGO MD Ot 414. 00 CORON ATHEROSCLER NOS TYPE VESSEL, NATIV 08/24/2016 INGA DIEGO MD Ot 427. 81 SINOATRIAL NODE DYSFUNCT 08/24/2016 INGA DIEGO MD Ot 530. 81 ESOPHAGEAL REFLUX 08/24/2016 ROZ SOTELO FACC, ALI FACP CCDS Ot 789.30 ABDOMINAL/PELVIC SWELLING,MASS/LUMP UNSP 08/24/2016 FENECH DOBELINDA S Ot Z12.31 ENCNTR SCREEN MAMMOGRAM FOR MALIGNANT NE 08/24/2016 PUSHPA SOTELO, [place] Sims Ot R19.7 DIARRHEA, UNSPECIFIED 08/24/2016 PUSHPA SOTELO, [place] Sims Ot Z01.818 ENCOUNTER FOR OTHER PREPROCEDURAL EXAMIN 08/26/2016 SOLIS PIRES MD Ot H83. 03 LABYRINTHITIS, BILATERAL 08/26/2016 SOLIS PIRES MD Ot I10 ESSENTIAL (PRIMARY) HYPERTENSION 08/26/2016 SOLIS PIRES MD Ot I25. 10 ATHSCL HEART DISEASE OF [place] CORONARY 08/26/2016 SOLIS PIRES MD Ot R42 DIZZINESS AND GIDDINESS 08/26/2016 SOLIS PIRES MD Ot Z79. 82 AIRCRAFT ENGINE DISMANTLER (CURRENT) USE OF ASPIRIN 08/26/2016 SOLIS PRIES MD Ot Z79.899 OTHER LONG-TERM (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 THERAPY 08/27/2016 Ot V76.12 OTH SCREEN MAMMO- MALIGN NEOPLASM OF [place] 08/27/2016 Ot 722.4 CERV ICAL DISC DEGEN 08/27/2016 Ot 724.1 PAIN IN THORACIC SPINE 08/27/2016 Ot 729.5 PAIN IN LIMB 08/27/2016 Ot 785.9 CARD IOVAS SYS SYMP NEC 08/27/2016 Ot 780.39 OTH ER CONVULSIONS 08/27/2016 Ot 272.4 HYPE RLIPIDEMIA NEC/NOS 08/27/2016 Ot 414.00 COR ON ATHEROSCLER NOS TYPE VESSEL, NATIV 08/27/2016 Ot 427.89 CAR DIAC DYSRHYTHMIAS NEC 08/27/2016 Ot 491.9 CARPENTER HELPER MAINTENANCE MARIA GUADALUPE BRONCHITIS NOS 08/27/2016 BELINDA RIVERA DO Ot 278.00 OBESITY, NOS 08/27/2016 BELINDA RIVERA DO S Ot 625.9 FEM GENITAL SYMPTOMS NOS 08/27/2016 BELINDA RIVERA DO Ot V76.12 OTH SCREEN MAMMO-MALIGN NEOPLASM OF [place] 08/27/2016 INGA DIEGO MD Ot 272. 4 HYPERLIPIDEMIA NEC/NOS 08/27/2016 INGA DIEGO MD Ot 305. 1 TOBACCO USE DISORDER 08/27/2016 INGA DIEGO MD Ot 401. 9 HYPERTENSION NOS 08/27/2016 INGA DIEGO MD Ot 414. 00 CORON ATHEROSCLER NOS TYPE VESSEL, NATIV 08/27/2016 INGA DIEGO MD Ot 427. 81 SINOATRIAL NODE DYSFUNCT 08/27/2016 INGA DIEGO MD Ot 530. 81 ESOPHAGEAL REFLUX 08/27/2016 ROZ SOTELO FACC, ALI FACP CCDS Ot 789.30 ABDOMINAL/PELVIC SWELLING,MASS/LUMP UNSP 08/27/2016 BELINDA RIVERA DO Ot Z12.31 ENCNTR SCREEN MAMMOGRAM FOR MALIGNANT NE 08/27/2016 PUSHPA SOTELO, [place] Sims Ot R19.7 DIARRHEA, UNSPECIFIED 08/27/2016 [place] BARROW MD Ot Z01.818 ENCOUNTER FOR OTHER PREPROCEDURAL EXAMIN 08/27/2016 JOVON LING MD Ot Z12.31 ENCNTR SCREEN MAMMOGRAM FOR MALIGNANT NE 08/28/2016 PRANAY SOTELO, SOLIS Espinoza Ot H83. 03 LABYRINTHITIS, BILATERAL 08/28/2016 PRANAY SOTELO, SOLIS Espinoza Ot I10 ESSENTIAL (PRIMARY) HYPERTENSION 08/28/2016 SOLIS PIRES MD Ot I25. 10 ATHSCL HEART DISEASE OF [place] CORONARY 08/28/2016 SOLIS PIRES MD Ot R42 DIZZINESS AND GIDDINESS 08/28/2016 SOLIS PIRES MD Ot Z79. 82 AIRCRAFT ENGINE DISMANTLER (CURRENT) USE OF ASPIRIN 08/28/2016 SOLIS PIRES MD Ot Z79.899 OTHER LONG-TERM (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 THERAPY 09/15/2016 JOVON LING MD Ot Z12.31 ENCNTR SCREEN MAMMOGRAM FOR MALIGNANT NE 10/01/2016 JOVON LING MD Ot Z12.31 ENCNTR SCREEN MAMMOGRAM FOR MALIGNANT NE 10/02/2016 DADA SANDOVAL DO Ot E86.0 DEHYDRATION 10/02/2016 SANDOVALDADA LOZA DO Ot E87.6 HYPOKALEMIA 10/02/2016 SANDOVALDADA LOZA DO Ot G40.90 9 EPILEPSY, UNSP, NOT INTRACTABLE, WITHOUT 10/02/2016 DADA SANDOVAL DO Ot I10 ESSENTIAL (PRIMARY) HYPERTENSION 10/02/2016 SANDOVALDADA LOZA DO Ot I25.10 ATHSCL HEART DISEASE OF [place] CORONARY 10/02/2016 SANDOVALDADA LOZA DO Ot K21.9 GASTRO-ESOPHAGEAL REFLUX DISEASE WITHOUT 10/02/2016 DADA SANDOVAL DO Ot R10.11 RIGHT UPPER QUADRANT PAIN 10/02/2016 DADA ASNDOVAL DO Ot R42 DIZZINESS AND GIDDINESS 10/03/2016 Ot 305.1 TOBA FRONT END MECHANIC USE DISORDER 10/03/2016 Ot 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 10/03/2016 Ot 780.4 DIZZ INESS AND GIDDINESS 10/03/2016 Ot 780.79 OTH MALAISE FATIGUE 10/03/2016 Ot V58.69 OTH MED,LT,CURRENT USE 10/05/2016 JOVON LING MD Ot R92.8 OTH ABN AND INCONCLUSIVE FINDINGS ON DX 10/05/2016 JOVON LING MD Ot R92.8 OTH ABN AND INCONCLUSIVE FINDINGS ON DX 10/06/2016 JOVON LING MD Ot R92.8 OTH ABN AND INCONCLUSIVE FINDINGS ON DX 10/06/2016 JOVON LING MD Ot R92.8 OTH ABN AND INCONCLUSIVE FINDINGS ON DX 11/02/2016 Ot 305.1 TOBA FRONT END MECHANIC USE DISORDER 11/02/2016 Ot 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 11/02/2016 Ot 780.4 DIZZ INESS AND GIDDINESS 11/02/2016 Ot 780.79 OTH MALAISE FATIGUE 11/02/2016 Ot V58.69 OTH MED,LT,CURRENT USE 11/09/2016 JOVON LING MD Ot R92.8 OTH ABN AND INCONCLUSIVE FINDINGS ON DX 11/13/2016 JOVON LING MD Ot R92.8 OTH ABN AND INCONCLUSIVE FINDINGS ON DX 12/01/2016 JOVON LING MD Ot R92.8 OTH ABN AND INCONCLUSIVE FINDINGS ON DX 12/04/2016 INDIA BARROW MD Ot Z01.818 ENCOUNTER FOR OTHER PREPROCEDURAL EXAMIN 12/04/2016 INDIA BARROW MD Ot Z12.11 ENCOUNTER FOR SCREENING FOR MALIGNANT NE 12/16/2016 INDIA BARROW MD Ot E78.5 HYPERLIPIDEMIA, UNSPECIFIED 12/16/2016 INDIA BARROW MD Ot I1 0 ESSENTIAL (PRIMARY) HYPERTENSION 12/16/2016 INDIA BARROW MD Ot I25.10 ATHSCL HEART DISEASE OF [place] CORONARY 12/16/2016 INDIA BARROW MD Ot K57.30 DVRTCLOS OF LG INT W/O PERFORATION OR AB 12/16/2016 INDIA BARROW MD Ot K63.5 POLYP OF COLON 12/16/2016 INDIA BARROW MD Ot Z12.11 ENCOUNTER FOR SCREENING FOR MALIGNANT NE 12/16/2016 INDIA BARROW MD Ot Z79.899 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 12/29/2016 INDIA BARROW MD Ot E78.5 HYPERLIPIDEMIA, UNSPECIFIED 12/29/2016 INDIA BARROW MD Ot I1 0 ESSENTIAL (PRIMARY) HYPERTENSION 12/29/2016 INDIA BARROW MD Ot I25.10 ATHSCL HEART DISEASE OF [place] CORONARY 12/29/2016 INDIA BARROW MD Ot K57.30 DVRTCLOS OF LG INT W/O PERFORATION OR AB 12/29/2016 INDIA BARROW MD Ot K63.5 POLYP OF COLON 12/29/2016 INDIA BARROW MD Ot Z12.11 ENCOUNTER FOR SCREENING FOR MALIGNANT NE 12/29/2016 INDIA BARROW MD Ot Z79.899 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 01/06/2017 INDIA BARROW MD Ot E78.5 HYPERLIPIDEMIA, UNSPECIFIED 01/06/2017 INDIA BARROW MD Ot I1 0 ESSENTIAL (PRIMARY) HYPERTENSION 01/06/2017 INDIA BARROW MD Ot I25.10 ATHSCL HEART DISEASE OF [place] CORONARY 01/06/2017 INDIA BARROW MD Ot K57.30 DVRTCLOS OF LG INT W/O PERFORATION OR AB 01/06/2017 INDIA BARROW MD Ot K63.5 POLYP OF COLON 01/06/2017 INDIA BARROW MD Ot Z12.11 ENCOUNTER FOR SCREENING FOR MALIGNANT NE 01/06/2017 INDIA BARROW MD Ot Z79.899 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 01/13/2017 INDIA BARROW MD Ot E78.5 HYPERLIPIDEMIA, UNSPECIFIED 01/13/2017 INDIA BARROW MD Ot I1 0 ESSENTIAL (PRIMARY) HYPERTENSION 01/13/2017 INDIA BARROW MD Ot I25.10 ATHSCL HEART DISEASE OF [place] CORONARY 01/13/2017 INDIA BARROW MD Ot K57.30 DVRTCLOS OF LG INT W/O PERFORATION OR AB 01/13/2017 INDIA BARROW MD Ot K63.5 POLYP OF COLON 01/13/2017 INDIA BARROW MD Ot Z12.11 ENCOUNTER FOR SCREENING FOR MALIGNANT NE 01/13/2017 INDIA BARROW MD Ot Z79.899 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 01/25/2017 LOLLY SUTTON STORE MGR Ot R92.8 OTH ABN AND INCONCLUSIVE FINDINGS ON DX 01/27/2017 LOLLY SUTTON STORE MGR Ot R92.8 OTH ABN AND INCONCLUSIVE FINDINGS ON DX 02/01/2017 LOLLY SUTTON APRN Ot R92.8 OTH ABN AND INCONCLUSIVE FINDINGS ON DX 02/02/2017 LOLLY SUTTON STORE MGR Ot R92.8 OTH ABN AND INCONCLUSIVE FINDINGS ON DX 03/01/2017 LOLLY SUTTON STORE MGR Ot R92.8 OTH ABN AND INCONCLUSIVE FINDINGS ON DX 03/02/2017 LOLLY SUTTON STORE MGR Ot R92.8 OTH ABN AND INCONCLUSIVE FINDINGS ON DX 03/03/2017 LOLLY SUTTON STORE MGR Ot R92.8 OTH ABN AND INCONCLUSIVE FINDINGS ON DX 04/06/2017 LOLLY SUTTON APRN Ot M81.0 AGE-RELATED OSTEOPOROSIS W/O CURRENT PAT 04/06/2017 LOLLY SUTTON APRN Ot M81.0 AGE-RELATED OSTEOPOROSIS W/O CURRENT PAT 04/20/2017 LOLLY SUTTON APRN Ot M81.0 AGE-RELATED OSTEOPOROSIS W/O CURRENT PAT 04/22/2017 LOLLY SUTTON APRN Ot M11.261 OTHER CHONDROCALCINOSIS, RIGHT KNEE 04/22/2017 SUTTON, ASHDEN N STORE MGR Ot M11.262 OTHER CHONDROCALCINOSIS, LEFT KNEE 04/28/2017 SUTTON YANDYGENEVA N STORE MGR Ot M11.261 OTHER CHONDROCALCINOSIS, RIGHT KNEE 04/28/2017 SUTTON ASHGENEVA N STORE MGR Ot M11.262 OTHER CHONDROCALCINOSIS, LEFT KNEE 05/14/2017 SUTTON ASHGENEVA N STORE MGR Ot M11.261 OTHER CHONDROCALCINOSIS, RIGHT KNEE 05/14/2017 SUTTON ASHGENEVA N STORE MGR Ot M11.262 OTHER CHONDROCALCINOSIS, LEFT KNEE 05/19/2017 SUTTON ASHGENEVA N STORE MGR Ot M11.261 OTHER CHONDROCALCINOSIS, RIGHT KNEE 05/19/2017 SUTTON ASHGENEVA N STORE MGR Ot M11.262 OTHER CHONDROCALCINOSIS, LEFT KNEE 05/24/2017 SUTTON ASHGENEVA N STORE MGR Ot M11.261 OTHER CHONDROCALCINOSIS, RIGHT KNEE 05/24/2017 S[facility]TON ASHGENEVA N STORE MGR Ot M11.262 OTHER CHONDROCALCINOSIS, LEFT KNEE 06/02/2017 MACY GLYNN MD Ot F03. 90 UNSPECIFIED DEMENTIA WITHOUT BEHAVIORAL 06/02/2017 MACY GLYNN MD Ot F17.210 NICOTINE DEPENDENCE, CIGARETTES, UNCOMPL 06/02/2017 MACY GLYNN MD Ot F31. 9 BIPOLAR DISORDER, UNSPECIFIED 06/02/2017 MACY GLYNN MD Ot G40.909 EPILEPSY, UNSP, NOT INTRACTABLE, WITHOUT 06/02/2017 MACY GLYNN MD Ot I10 ESSENTIAL (PRIMARY) HYPERTENSION 06/02/2017 MACY GLYNN MD Ot I25. 10 ATHSCL HEART DISEASE OF [place] CORONARY 06/02/2017 MACY GLYNN MD Ot K21. 9 GASTRO-ESOPHAGEAL REFLUX DISEASE WITHOUT 06/02/2017 MACY GLYNN MD Ot S92.512A DISP FX OF PROXIMAL PHALANX OF LEFT LESS 06/02/2017 MACY GLYNN MD Ot W18.2XXA FALL IN (INTO) SHOWER OR EMPTY BATHTUB, 06/02/2017 MACY GLYNN MD Ot Y92.002 BATHRM OF UNSP NON-INSTITUT RESDNCE SNGL 06/02/2017 MACY GLYNN MD Ot Y93. E1 ACTIVITY, PERSONAL BATHING AND SHOWERING 06/02/2017 MACY GLYNN MD Ot Z79. 82 [employer] DISMANTLER (CURRENT) USE OF ASPIRIN 06/02/2017 MACY GLYNN MD, Ot Z87.828 PERSONAL HISTORY OF OTH (HEALED) PHYSICA 06/02/2017 MACY GLYNN MD Ot Z90. 49 ACQUIRED ABSENCE OF OTHER SPECIFIED PART 06/08/2017 MACY GLYNN MD Ot F03. 90 UNSPECIFIED DEMENTIA WITHOUT BEHAVIORAL 06/08/2017 MACY GLYNN MD Ot F17.210 NICOTINE DEPENDENCE, CIGARETTES, UNCOMPL 06/08/2017 MACY GLYNN MD Ot F31. 9 BIPOLAR DISORDER, UNSPECIFIED 06/08/2017 MACY GLYNN MD, Ot G40.909 EPILEPSY, UNSP, NOT INTRACTABLE, WITHOUT 06/08/2017 MACY GLYNN MD Ot I10 ESSENTIAL (PRIMARY) HYPERTENSION 06/08/2017 MACY GLYNN MD, Ot I25. 10 ATHSCL HEART DISEASE OF [place] CORONARY 06/08/2017 MACY GLYNN MD Ot K21. 9 GASTRO-ESOPHAGEAL REFLUX DISEASE WITHOUT 06/08/2017 MACY GLYNN MD Ot S92.512A DISP FX OF PROXIMAL PHALANX OF LEFT LESS 06/08/2017 MACY GLYNN MD Ot W18.2XXA FALL IN (INTO) SHOWER OR EMPTY BATHTUB, 06/08/2017 MACY GLYNN MD Ot Y92.002 BATHRM OF UNSP NON-INSTITUT RESDNCE SNGL 06/08/2017 MACY GLYNN MD Ot Y93. E1 ACTIVITY, PERSONAL BATHING AND SHOWERING 06/08/2017 MACY GLYNN MD Ot Z79. 82 AIRCRAFT ENGINE DISMANTLER (CURRENT) USE OF ASPIRIN 06/08/2017 MACY GLYNN MD, Ot Z87.828 PERSONAL HISTORY OF OTH (HEALED) PHYSICA 06/08/2017 MACY GLYNN MD, Ot Z90. 49 ACQUIRED ABSENCE OF OTHER SPECIFIED PART 07/07/2017 BELINDA VALDEZ MD Ot E04 .2 NONTOXIC MULTINODULAR GOITER 07/27/2017 BELINDA VALDEZ MD, Ot E04 .2 NONTOXIC MULTINODULAR GOITER 07/30/2017 LLOLY SUTTON APRN Ot R92.8 OTH ABN AND INCONCLUSIVE FINDINGS ON DX 08/04/2017 VALDEZ MD, BELINDA P Ot E04 .2 NONTOXIC MULTINODULAR GOITER 08/05/2017 LOLLY SUTTON APRN Ot R92.8 OTH ABN AND INCONCLUSIVE FINDINGS ON DX 08/18/2017 BELINDA VALDEZ MD Ot E04 .2 NONTOXIC MULTINODULAR GOITER 08/24/2017 THERESE FINN MD Ot E78.00 PURE HYPERCHOLESTEROLEMIA, UNSPECIFIED 08/24/2017 THERESE FINN MD Ot F03.90 UNSPECIFIED DEMENTIA WITHOUT BEHAVIORAL 08/24/2017 THERESE FINN MD Ot F31.9 BIPOLAR DISORDER, UNSPECIFIED 08/24/2017 THERESE FINN MD, Ot G40.909 EPILEPSY, UNSP, NOT INTRACTABLE, WITHOUT 08/24/2017 THERESE FINN MD Ot I10 ESSENTIAL (PRIMARY) HYPERTENSION 08/24/2017 THERESE FINN MD Ot I25.10 ATHSCL HEART DISEASE OF [place] CORONARY 08/24/2017 THERESE FINN MD Ot J42 UNSPECIFIED CHRONIC BRONCHITIS 08/24/2017 THERESE FINN MD Ot K21.9 GASTRO-ESOPHAGEAL REFLUX DISEASE WITHOUT 08/24/2017 THERESE FINN MD Ot R07.89 OTHER CHEST PAIN 08/24/2017 THERESE FINN MD Ot R60.0 LOCALIZED EDEMA 08/24/2017 THERESE FINN MD Ot Z79.52 AIRCRAFT ENGINE DISMANTLER (CURRENT) USE OF SYSTEMIC STER 08/24/2017 THERESE FINN MD Ot Z79.82 AIRCRAFT ENGINE DISMANTLER (CURRENT) USE OF ASPIRIN 08/24/2017 THERESE FINN MD Ot Z87.820 PERSONAL HISTORY OF TRAUMATIC BRAIN INJU 08/24/2017 THERESE FINN MD Ot Z87.891 PERSONAL HISTORY OF NICOTINE DEPENDENCE 08/24/2017 THERESE FINN MD Ot Z88.0 ALLERGY STATUS TO PENICILLIN 08/24/2017 THERESE FINN MD Ot Z91.040 LATEX ALLERGY STATUS 08/26/2017 LOLLY SUTTON APRN Ot R92.8 OTH ABN AND INCONCLUSIVE FINDINGS ON DX 09/06/2017 LOLLY SUTTON APRN Ot M41.9 SCOLIOSIS, UNSPECIFIED 09/06/2017 LOLLY SUTTON STORE MGR Ot M47.816 SPONDYLOSIS W/O MYELOPATHY OR RADICULOPA 09/06/2017 YANDY SUTTONGENEVA [facility] MGR Ot M79.605 PAIN IN LEFT LEG 09/06/2017 YANDY SUTTONGENEVA [facility] ST[facility] MGR Ot R90.82 WHITE MATTER DISEASE, UNSPECIFIED 09/06/[address] MGR Ot W19.XXXA UNSPECIFIED FALL, INITIAL ENCOUNTER 09/06/2017 YANDY SUTTONGENEVA [facility] ST[facility] MGR Ot M41.9 SCOLIOSIS, UNSPECIFIED 09/06/2017 YANDY SUTTONGENEVA [facility] ST[facility] MGR Ot M47.816 SPONDYLOSIS W/O MYELOPATHY OR RADICULOPA 09/06/2017 YANDY SUTTONGENEVA [facility] ST[facility] MGR Ot M79.605 PAIN IN LEFT LEG 09/06/2017 SUTTON YANDYGENEVA [facility] MGR Ot R90.82 WHITE MATTER DISEASE, UNSPECIFIED 09/06/2017 SUTTON YANDYGENEVA [facility] MGR Ot W19.XXXA UNSPECIFIED FALL, INITIAL ENCOUNTER 09/16/2017 SUTTON YANDYVIGNESH VAIL Ot R92.8 OTH ABN AND INCONCLUSIVE FINDINGS ON DX 09/22/2017 SUTTON YANDYGENEVA [facility] MGR Ot M41.9 SCOLIOSIS, UNSPECIFIED 09/22/2017 YANDY SUTTONGENEVA [facility] MGR Ot M47.816 SPONDYLOSIS W/O MYELOPATHY OR RADICULOPA 09/22/2017 YANDY SUTTONGENEVA [facility] MGR Ot M79.605 PAIN IN LEFT LEG 09/22/2017 LESLEY YANDYGENEVA [facility] MGR Ot R90.82 WHITE MATTER DISEASE, UNSPECIFIED 09/22/2017 SUTTON YANDYGENEVA [facility] MGR Ot W19.XXXA UNSPECIFIED FALL, INITIAL ENCOUNTER 09/29/2017 LESLEY YANDYGENEVA [facility] MGR Ot M41.9 SCOLIOSIS, UNSPECIFIED 09/29/2017 SUTTON YANDYGENEVA [facility] MGR Ot M47.816 SPONDYLOSIS W/O MYELOPATHY OR RADICULOPA 09/29/2017 LESLEY YANDYGENEVA [facility] MGR Ot M79.605 PAIN IN LEFT LEG 09/29/2017 LESLEY YANDYGENEVA [facility] MGR Ot R90.82 WHITE MATTER DISEASE, UNSPECIFIED 09/29/2017 SUTTON YANDYGENEVA [facility] MGR Ot W19.XXXA UNSPECIFIED FALL, INITIAL ENCOUNTER 11/11/2017 Ot 272.4 HYPE RLIPIDEMIA NEC/NOS 11/11/2017 Ot 414.00 COR ON ATHEROSCLER NOS TYPE VESSEL, NATIV 11/11/2017 Ot 427.89 CAR DIAC DYSRHYTHMIAS NEC 11/11/2017 Ot 491.9 CARPENTER HELPER MAINTENANCE MARIA GUADALUPE BRONCHITIS NOS 11/11/2017 BELINDA RIVERA DO S Ot 278.00 OBESITY, NOS 11/11/2017 FENECH DO, BELINDA S Ot 625.9 FEM GENITAL SYMPTOMS NOS 11/11/2017 BELINDA RIVERA DO S Ot V76.12 OTH SCREEN MAMMO-MALIGN NEOPLASM OF [place] 11/11/2017 INGA DIEGO MD Ot 272. 4 HYPERLIPIDEMIA NEC/NOS 11/11/2017 INGA DIEGO MD Ot 305. 1 TOBACCO USE DISORDER 11/11/2017 INGA DIEGO MD Ot 401. 9 HYPERTENSION NOS 11/11/2017 INGA DIEGO MD Ot 414. 00 CORON ATHEROSCLER NOS TYPE VESSEL, NATIV 11/11/2017 INGA DIEGO MD Ot 427. 81 SINOATRIAL NODE DYSFUNCT 11/11/2017 INGA DIEGO MD Ot 530. 81 ESOPHAGEAL REFLUX 11/11/2017 ROZ SOTELO FACC, ALI FACP CCDS Ot 789.30 ABDOMINAL/PELVIC SWELLING,MASS/LUMP UNSP 11/11/2017 MIGUEL CRAFT BELINDA S Ot Z12.31 ENCNTR SCREEN MAMMOGRAM FOR MALIGNANT NE 11/11/2017 INDIA BARROW MD Ot R19.7 DIARRHEA, UNSPECIFIED 11/11/2017 INDIA BARROW MD Ot Z01.818 ENCOUNTER FOR OTHER PREPROCEDURAL EXAMIN 11/11/2017 JOVON LING MD Ot Z12.31 ENCNTR SCREEN MAMMOGRAM FOR MALIGNANT NE 11/11/2017 JOVON LING MD Ot R92.8 OTH ABN AND INCONCLUSIVE FINDINGS ON DX 11/11/2017 INDIA BARROW MD Ot E78.5 HYPERLIPIDEMIA, UNSPECIFIED 11/11/2017 INDIA BARROW MD Ot I1 0 ESSENTIAL (PRIMARY) HYPERTENSION 11/11/2017 INDIA BARROW MD Ot I25.10 ATHSCL HEART DISEASE OF [place] CORONARY 11/11/2017 INDIA BARROW MD Ot K57.30 DVRTCLOS OF LG INT W/O PERFORATION OR AB 11/11/2017 INDIA BARROW MD Ot K63.5 POLYP OF COLON 11/11/2017 INDIA BARROW MD M Ot Z12.11 ENCOUNTER FOR SCREENING FOR MALIGNANT NE 11/11/2017 PUSHPA SOTELO, INDIA Sims Ot Z79.899 OTHER LONG-TERM (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 THERAPY 11/11/2017 PUSHPA SOTELO, INDIA Sims Ot Z01.818 ENCOUNTER FOR OTHER PREPROCEDURAL EXAMIN 11/11/2017 PUSHPA SOTELO, INDIA Sims Ot Z12.11 ENCOUNTER FOR SCREENING FOR MALIGNANT NE 11/11/2017 LOLLY SUTTON STORE MGR Ot R92.8 OTH ABN AND INCONCLUSIVE FINDINGS ON DX 11/11/2017 LOLLY SUTTON STORE MGR Ot M11.261 OTHER CHONDROCALCINOSIS, RIGHT KNEE 11/11/2017 LOLLY SUTTON STORE MGR Ot M11.262 OTHER CHONDROCALCINOSIS, LEFT KNEE 11/11/2017 COURTNEY SOTELO, BELINDA Gomez Ot E04 .2 NONTOXIC MULTINODULAR GOITER 11/11/2017 LOLLY SUTTON STORE MGR Ot R92.8 OTH ABN AND INCONCLUSIVE FINDINGS ON DX 11/11/2017 LOLLY SUTTON STORE MGR Ot M41.9 SCOLIOSIS, UNSPECIFIED 11/11/2017 LOLLY SUTTON STORE MGR Ot M47.816 SPONDYLOSIS W/O MYELOPATHY OR RADICULOPA 11/11/2017 LOLLY SUTTON STORE MGR Ot M79.605 PAIN IN LEFT LEG 11/11/2017 LOLLY SUTTON STORE MGR Ot R90.82 WHITE MATTER DISEASE, UNSPECIFIED 11/11/2017 LOLLY SUTTON STORE MGR Ot W19.XXXA UNSPECIFIED FALL, INITIAL ENCOUNTER 11/15/2017 JUDY BRUNO HAND PACKAGER Ot E04.2 NONTOXIC MULTINODULAR GOITER 11/24/2017 JAIME CRAFT DADA Ot E04.2 NONTOXIC MULTINODULAR GOITER 11/24/2017 SANDOVALDENIA CRAFT DADA Ot E78.5 HYPERLIPIDEMIA, UNSPECIFIED 11/24/2017 JAIME CRAFT DADA Ot F03.90 UNSPECIFIED DEMENTIA WITHOUT BEHAVIORAL 11/24/2017 JAIME CRAFT DADA Ot G40.90 9 EPILEPSY, UNSP, NOT INTRACTABLE, WITHOUT 11/24/2017 JAIME CRAFT DADA Ot G89.29 OTHER CHRONIC PAIN 11/24/2017 JAIME CRAFT DADA Ot I10 ESSENTIAL (PRIMARY) HYPERTENSION 11/24/2017 JAIME CRAFT DADA Ot I25.10 ATHSCL HEART DISEASE OF [place] CORONARY 11/24/2017 DADA SANDOVAL DO Ot K21.9 GASTRO-ESOPHAGEAL REFLUX DISEASE WITHOUT 11/24/2017 DADA SANDOVAL DO Ot K59.09 OTHER CONSTIPATION 11/24/2017 JAIME CRAFT DADA Ot N28.9 DISORDER OF KIDNEY AND URETER, UNSPECIFI 11/24/2017 JAIME CRAFT DADA Ot R07.89 OTHER CHEST PAIN 11/24/2017 ABDIEL SANDOVAL DOI Ot R60.0 LOCALIZED EDEMA 11/24/2017 JAIME CRAFT DADA Ot Z53.21 PROC/TRTMT NOT CRD OUT D/T PT LV BEF SEE 11/24/2017 DADA SANDOVAL DO Ot Z79.82 AIRCRAFT ENGINE DISMANTLER (CURRENT) USE OF ASPIRIN 11/24/2017 DADA SANDOVAL DO Ot Z79.89 9 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 11/24/2017 DADA SANDOVAL DO Ot Z87.89 1 PERSONAL HISTORY OF NICOTINE DEPENDENCE 11/25/2017 THERESE FINN MD Ot E78.00 PURE HYPERCHOLESTEROLEMIA, UNSPECIFIED 11/25/2017 THERESE FINN MD Ot F03.90 UNSPECIFIED DEMENTIA WITHOUT BEHAVIORAL 11/25/2017 THERESE FINN MD Ot F31.9 BIPOLAR DISORDER, UNSPECIFIED 11/25/2017 THERESE FINN MD Ot G40.909 EPILEPSY, UNSP, NOT INTRACTABLE, WITHOUT 11/25/2017 THERESE FINN MD Ot G89.29 OTHER CHRONIC PAIN 11/25/2017 THERESE FINN MD Ot I10 ESSENTIAL (PRIMARY) HYPERTENSION 11/25/2017 THERESE FINN MD Ot I12.9 HYPERTENSIVE CHRONIC KIDNEY DISEASE W ST 11/25/2017 THERESE FINN MD Ot I25.10 ATHSCL HEART DISEASE OF [place] CORONARY 11/25/2017 THERESE FINN MD Ot K21.9 GASTRO-ESOPHAGEAL REFLUX DISEASE WITHOUT 11/25/2017 THERESE FINN MD Ot N18.9 CHRONIC KIDNEY DISEASE, UNSPECIFIED 11/25/2017 THERESE FINN MD Ot R07.9 CHEST PAIN, UNSPECIFIED 11/25/2017 THERESE FINN MD Ot R60.0 LOCALIZED EDEMA 11/25/2017 THERESE FINN MD Ot Z79.52 LONG-TERM (CURRENT) USE OF SYSTEMIC STER 11/25/2017 THERESE FINN MD Ot Z79.82 LONG-TERM (CURRENT) USE OF ASPIRIN 11/25/2017 THERESE FINN MD Ot Z80.0 FAMILY HISTORY OF MALIGNANT NEOPLASM OF 11/25/2017 THERESE FINN MD Ot Z82.49 FAMILY HX OF ISCHEM HEART DIS AND OTH DI 11/25/2017 THERESE FINN MD Ot Z87.19 PERSONAL HISTORY OF OTHER DISEASES OF TH 11/25/2017 THERESE FINN MD, Ot Z87.820 PERSONAL HISTORY OF TRAUMATIC BRAIN INJU 11/25/2017 THERESE FINN MD, Ot Z87.891 PERSONAL HISTORY OF NICOTINE DEPENDENCE 11/25/2017 THERESE FINN MD, Ot Z90.49 ACQUIRED ABSENCE OF OTHER SPECIFIED PART 11/29/2017 THERESE FINN MD Ot E78.00 PURE HYPERCHOLESTEROLEMIA, UNSPECIFIED 11/29/2017 THERESE FINN MD Ot F03.90 UNSPECIFIED DEMENTIA WITHOUT BEHAVIORAL 11/29/2017 THERESE FINN MD Ot F31.9 BIPOLAR DISORDER, UNSPECIFIED 11/29/2017 THERESE FINN MD Ot G40.909 EPILEPSY, UNSP, NOT INTRACTABLE, WITHOUT 11/29/2017 THERESE FINN MD Ot G89.29 OTHER CHRONIC PAIN 11/29/2017 THERESE FINN MD Ot I10 ESSENTIAL (PRIMARY) HYPERTENSION 11/29/2017 THERESE FINN MD Ot I12.9 HYPERTENSIVE CHRONIC KIDNEY DISEASE W ST 11/29/2017 THERESE FINN MD Ot I25.10 ATHSCL HEART DISEASE OF [place] CORONARY 11/29/2017 THERESE FINN MD Ot K21.9 GASTRO-ESOPHAGEAL REFLUX DISEASE WITHOUT 11/29/2017 THERESE FINN MD Ot N18.9 CHRONIC KIDNEY DISEASE, UNSPECIFIED 11/29/2017 THERESE FINN MD Ot R07.9 CHEST PAIN, UNSPECIFIED 11/29/2017 THERESE FINN MD Ot R60.0 LOCALIZED EDEMA 11/29/2017 THERESE FINN MD Ot Z79.52 AIRCRAFT ENGINE DISMANTLER (CURRENT) USE OF SYSTEMIC STER 11/29/2017 THERESE FINN MD Ot Z79.82 LONG-TERM (CURRENT) USE OF ASPIRIN 11/29/2017 THERESE FINN MD, Ot Z80.0 FAMILY HISTORY OF MALIGNANT NEOPLASM OF 11/29/2017 THERESE FINN MD, Ot Z82.49 FAMILY HX OF ISCHEM HEART DIS AND OTH DI 11/29/2017 THERESE FINN MD, Ot Z87.19 PERSONAL HISTORY OF OTHER DISEASES OF 11/29/2017 THERESE FINN MD, Ot Z87.820 PERSONAL HISTORY OF TRAUMATIC BRAIN INJU 11/29/2017 THERESE FINN MD, Ot Z87.891 PERSONAL HISTORY OF NICOTINE DEPENDENCE 11/29/2017 THERESE FINN MD, Ot Z90.49 ACQUIRED ABSENCE OF OTHER SPECIFIED PART 12/02/2017 JUDY BRUNO Ot E04.2 NONTOXIC MULTINODULAR GOITER 12/07/2017 RYAN VALENZUELA APRN Ot E78.00 PURE HYPERCHOLESTEROLEMIA, UNSPECIFIED 12/07/2017 RYAN VALENZUELA APRN Ot F03.90 UNSPECIFIED DEMENTIA WITHOUT BEHAVIORAL 12/07/2017 RYAN VALENZUELA APRN Ot F31 .9 BIPOLAR DISORDER, UNSPECIFIED 12/07/2017 RYAN VALENZUELA APRN Ot G40.909 EPILEPSY, UNSP, NOT INTRACTABLE, WITHOUT 12/07/2017 RYAN VALENZUELA APRN Ot G47 .9 SLEEP DISORDER, UNSPECIFIED 12/07/2017 RYAN VALENZUELA APRN Ot I10 ESSENTIAL (PRIMARY) HYPERTENSION 12/07/2017 RYAN VALENZUELA APRN Ot I25.10 ATHSCL HEART DISEASE OF [place] CORONARY 12/07/2017 RYAN VALENZUELA APRN Ot K21 .9 GASTRO-ESOPHAGEAL REFLUX DISEASE WITHOUT 12/07/2017 RYAN VALENZUELA APRN Ot L03.115 CELLULITIS OF RIGHT LOWER LIMB 12/07/2017 RYAN VALENZUELA APRN Ot L03.116 CELLULITIS OF LEFT LOWER LIMB 12/07/2017 RYAN VALENZUELA APRN Ot M79.604 PAIN IN RIGHT LEG 12/07/2017 RYAN VALENZUELA APRN Ot Z79.52 AIRCRAFT ENGINE DISMANTLER (CURRENT) USE OF SYSTEMIC STER 12/07/2017 RYAN VALENZUELA APRN Ot Z87 .2 PERSONAL HISTORY OF DISEASES OF THE SKIN 12/07/2017 RYAN VALENZUELA STORE MGR Ot Z88 .0 ALLERGY STATUS TO PENICILLIN 12/07/2017 RYAN VALENZUELA STORE MGR Ot Z90.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 12/07/2017 RYAN VALENZUELA APRN Ot Z91.040 LATEX ALLERGY STATUS 12/08/2017 JUDY BRUNO Anirudh HAND PACKAGER Ot E04.2 NONTOXIC MULTINODULAR GOITER 12/13/2017 RYAN VALENZUELA STORE MGR Ot E78.00 PURE HYPERCHOLESTEROLEMIA, UNSPECIFIED 12/13/2017 RYAN VALENZUELA APRN Ot F03.90 UNSPECIFIED DEMENTIA WITHOUT BEHAVIORAL 12/13/2017 RYAN VALENZUELA APRN Ot F31 .9 BIPOLAR DISORDER, UNSPECIFIED 12/13/2017 RYAN VALENZUELA STORE MGR Ot G40.909 EPILEPSY, UNSP, NOT INTRACTABLE, WITHOUT 12/13/2017 RYAN VALENZUELA APRN Ot G47 .9 SLEEP DISORDER, UNSPECIFIED 12/13/2017 RYAN VALENZUELA APRN Ot I10 ESSENTIAL (PRIMARY) HYPERTENSION 12/13/2017 RYAN VALENZUELA STORE MGR Ot I25.10 ATHSCL HEART DISEASE OF [place] CORONARY 12/13/2017 RYAN VALENZUELA APRN Ot K21 .9 GASTRO-ESOPHAGEAL REFLUX DISEASE WITHOUT 12/13/2017 RYAN VALENZUELA STORE MGR Ot L03.115 CELLULITIS OF RIGHT LOWER LIMB 12/13/2017 RYAN VALENZUELA APRN Ot L03.116 CELLULITIS OF LEFT LOWER LIMB 12/13/2017 RYAN VALENZUELA APRN Ot M79.604 PAIN IN RIGHT LEG 12/13/2017 RYAN VALENZUELA STORE MGR Ot Z79.52 LONG-TERM (CURRENT) USE OF SYSTEMIC STER 12/13/2017 RYAN VALENZUELA APRN Ot Z87 .2 PERSONAL HISTORY OF DISEASES OF THE SKIN 12/13/2017 RYAN VALENZUELA APRN Ot Z88 .0 ALLERGY STATUS TO PENICILLIN 12/13/2017 YRAN VALENZUELA STORE MGR Ot Z90.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 12/13/2017 RYAN VALENZUELA STORE MGR Ot Z91.040 LATEX ALLERGY STATUS 12/13/2017 RYAN VALENZUELA APRN Ot E78.00 PURE HYPERCHOLESTEROLEMIA, UNSPECIFIED 12/13/2017 RYAN VALENZUELA APRN Ot F03.90 UNSPECIFIED DEMENTIA WITHOUT BEHAVIORAL 12/13/2017 RYAN VALENZUELA APRN Ot F31 .9 BIPOLAR DISORDER, UNSPECIFIED 12/13/2017 RYAN VALENZUELA APRN Ot G40.909 EPILEPSY, UNSP, NOT INTRACTABLE, WITHOUT 12/13/2017 RYAN VALENZUELA APRN Ot G47 .9 SLEEP DISORDER, UNSPECIFIED 12/13/2017 RYAN VALENZUELA APRN Ot I10 ESSENTIAL (PRIMARY) HYPERTENSION 12/13/2017 RYAN VALENZUELA APRN Ot I25.10 ATHSCL HEART DISEASE OF [place] CORONARY 12/13/2017 RYAN VALENZUELA APRN Ot K21 .9 GASTRO-ESOPHAGEAL REFLUX DISEASE WITHOUT 12/13/2017 RYAN VALENZUELA APRN Ot L03.115 CELLULITIS OF RIGHT LOWER LIMB 12/13/2017 RYAN VALENZUELA APRN Ot L03.116 CELLULITIS OF LEFT LOWER LIMB 12/13/2017 RYAN VALENZUELA APRN Ot M79.604 PAIN IN RIGHT LEG 12/13/2017 RYAN VALENZUELA APRN Ot Z79.52 LONG-TERM (CURRENT) USE OF SYSTEMIC STER 12/13/2017 RYAN VALENZUELA APRN Ot Z87 .2 PERSONAL HISTORY OF DISEASES OF THE SKIN 12/13/2017 RYAN VALENZUELA APRN Ot Z88 .0 ALLERGY STATUS TO PENICILLIN 12/13/2017 RYAN VALENZUELA APRN Ot Z90.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 12/13/2017 RYAN VALENZUELA APRN Ot Z91.040 LATEX ALLERGY STATUS 12/15/2017 RYAN VALENZUELA APRN Ot E78.00 PURE HYPERCHOLESTEROLEMIA, UNSPECIFIED 12/15/2017 RYAN VALENZUELA APRN Ot F03.90 UNSPECIFIED DEMENTIA WITHOUT BEHAVIORAL 12/15/2017 RYAN VALENZUELA APRN Ot F31 .9 BIPOLAR DISORDER, UNSPECIFIED 12/15/2017 RYAN VALENZUELA APRN Ot G40.909 EPILEPSY, UNSP, NOT INTRACTABLE, WITHOUT 12/15/2017 RYAN VALENZUELA APRN Ot G47 .9 SLEEP DISORDER, UNSPECIFIED 12/15/2017 RYAN VALENZUELA APRN Ot I10 ESSENTIAL (PRIMARY) HYPERTENSION 12/15/2017 RYAN VALENZUELA APRN Ot I25.10 ATHSCL HEART DISEASE OF [place] CORONARY 12/15/2017 RYAN VALENZUELA STORE MGR Ot K21 .9 GASTRO-ESOPHAGEAL REFLUX DISEASE WITHOUT 12/15/2017 RYAN VALENZUELA STORE MGR Ot L03.115 CELLULITIS OF RIGHT LOWER LIMB 12/15/2017 RYAN VALENZUELA STORE MGR Ot L03.116 CELLULITIS OF LEFT LOWER LIMB 12/15/2017 RYAN VALENZUELA STORE MGR Ot M79.604 PAIN IN RIGHT LEG 12/15/2017 RYAN VALENZUELA STORE MGR Ot Z79.52 AIRCRAFT ENGINE DISMANTLER (CURRENT) USE OF SYSTEMIC STER 12/15/2017 RYAN VALENZUELA STORE MGR Ot Z87 .2 PERSONAL HISTORY OF DISEASES OF THE SKIN 12/15/2017 RYAN VALENZUELA STORE MGR Ot Z88 .0 ALLERGY STATUS TO PENICILLIN 12/15/2017 RYAN VALENZUELA APRN Ot Z90.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 12/15/2017 RYAN VALENZUELA APRN Ot Z91.040 LATEX ALLERGY STATUS 12/16/2017 JUDY BRUNO HAND PACKAGER Ot E04.2 NONTOXIC MULTINODULAR GOITER 12/22/2017 BELINDA VALDEZ MD Ot E04 .1 NONTOXIC SINGLE THYROID NODULE 12/22/2017 LOLLY SUTTON STORE MGR Ot M62.81 MUSCLE WEAKNESS (GENERALIZED) 12/22/2017 LOLLY SUTTON STORE MGR Ot M79.604 PAIN IN RIGHT LEG 12/22/2017 LOLLY SUTTON STORE MGR Ot M79.605 PAIN IN LEFT LEG 12/22/2017 LOLLY SUTTON STORE MGR Ot R26.9 UNSPECIFIED ABNORMALITIES OF GAIT AND MO 12/23/2017 BELINDA VALDEZ MD P Ot E04 .1 NONTOXIC SINGLE THYROID NODULE 12/24/2017 BELINDA VALDEZ MD Ot E04 .1 NONTOXIC SINGLE THYROID NODULE 12/27/2017 LOLLY SUTTON STORE MGR Ot M62.81 MUSCLE WEAKNESS (GENERALIZED) 12/27/2017 LOLLY SUTTON STORE MGR Ot M79.604 PAIN IN RIGHT LEG 12/27/2017 LOLLY S[facility]TON STORE MGR Ot M79.605 PAIN IN LEFT LEG 12/27/2017 LOLLY SUTTON STORE MGR Ot R26.9 UNSPECIFIED ABNORMALITIES OF GAIT AND MO 01/03/2018 LOLLY SUTTON STORE MGR Ot M62.81 MUSCLE WEAKNESS (GENERALIZED) 01/03/[address] MGR Ot M79.604 PAIN IN RIGHT LEG 01/03/[address] MGR Ot M79.605 PAIN IN LEFT LEG 01/03/2018 YANDY SUTTONGENEVA [facility] STORE MGR Ot R26.9 UNSPECIFIED ABNORMALITIES OF GAIT AND MO 01/12/2018 BELINDA VALDEZ MD Ot E04 .1 NONTOXIC SINGLE THYROID NODULE 01/19/2018 BELINDA VALDEZ MD Ot E04 .1 NONTOXIC SINGLE THYROID NODULE 01/24/2018 BELINDA VALDEZ MD Ot E04 .1 NONTOXIC SINGLE THYROID NODULE 05/10/2018 LEI VILLEGAS MD E78.5 Hyperlipidemia, unspecified 05/10/2018 LEI VILLEGAS MD F01.50 Vascular dementia without behavioral disturbance 05/10/2018 LEI VILLEGAS MD F31.4 Bipolar disord, crnt epsd depress, sev, w/o psych feat ures 05/10/2018 LEI VILLEGAS MD G89.29 Other chronic pain 05/10/2018 LEI VILLEGAS MD K21.9 Gastro-esophageal reflux disease without esophagitis 05/10/2018 LEI VILLEGAS MD K59.00 Constipation, unspecified 05/10/2018 LEI VILLEGAS MD Z86.69 Personal history of dis of the nervous sys and sense o rgans 05/15/2018 MACY GLYNN MD Ot E78. 00 PURE HYPERCHOLESTEROLEMIA, UNSPECIFIED 05/15/2018 MACY GLYNN MD Ot F03. 90 UNSPECIFIED DEMENTIA WITHOUT BEHAVIORAL 05/15/2018 MACY GLYNN MD Ot F31. 9 BIPOLAR DISORDER, UNSPECIFIED 05/15/2018 MACY GLYNN MD Ot G30. 9 ALZHEIMER'S DISEASE, UNSPECIFIED 05/15/2018 MACY GLYNN MD Ot G40.909 EPILEPSY, UNSP, NOT INTRACTABLE, WITHOUT 05/15/2018 MACY GLYNN MD Ot I12. 9 HYPERTENSIVE CHRONIC KIDNEY DISEASE W ST 05/15/2018 MACY GLYNN MD Ot I25. 10 ATHSCL HEART DISEASE OF [place] CORONARY 05/15/2018 MACY GLYNN MD Ot K21. 9 GASTRO-ESOPHAGEAL REFLUX DISEASE WITHOUT 05/15/2018 MACY GLYNN MD Ot M54. 2 CERVICALGIA 05/15/2018 MACY GLYNN MD Ot N18. 9 CHRONIC KIDNEY DISEASE, UNSPECIFIED 05/15/2018 MACY GLYNN MD Ot N39. 0 URINARY TRACT INFECTION, SITE NOT SPECIF 05/15/2018 MACY GLYNN MD, Ot R40.2142 COMA SCALE, EYES OPEN, SPONTANEOUS, EMR 05/15/2018 MACY GLYNN MD Ot R40.2242 COMA SCALE, BEST VERBAL RESPONSE, CONFUS 05/15/2018 MACY GLYNN MD, Ot R40.2362 COMA SCALE, BEST MOTOR RESPONSE, OBEYS C 05/15/2018 MACY GLYNN MD Ot R51 HEADACHE 05/15/2018 MACY GLYNN MD Ot W19.XXXA UNSPECIFIED FALL, INITIAL ENCOUNTER 05/15/2018 MACY GLYNN MD, Ot Z79. 52 LONG-TERM (CURRENT) USE OF SYSTEMIC STER 05/15/2018 MACY GLYNN MD Ot Z79. 82 LONG-TERM (CURRENT) USE OF ASPIRIN 05/15/2018 MACY GLYNN MD Ot Z80. 0 FAMILY HISTORY OF MALIGNANT NEOPLASM OF 05/15/2018 MACY GLYNN MD Ot Z82. 49 FAMILY HX OF ISCHEM HEART DIS AND OTH DI 05/15/2018 MACY GLYNN MD Ot Z87. 09 PERSONAL HISTORY OF OTHER DISEASES OF TH 05/15/2018 MACY GLYNN MD, Ot Z87.820 PERSONAL HISTORY OF TRAUMATIC BRAIN INJU 05/15/2018 MACY GLYNN MD Ot Z87.891 PERSONAL HISTORY OF NICOTINE DEPENDENCE 05/15/2018 MACY GLYNN MD, Ot Z88. 0 ALLERGY STATUS TO PENICILLIN 05/15/2018 MACY GLYNN MD Ot Z90. 49 ACQUIRED ABSENCE OF OTHER SPECIFIED PART 05/15/2018 MACY GLYNN MD, Ot Z91.040 LATEX ALLERGY STATUS 05/16/2018 BELINDA RIVERA DO S Ot 278.00 OBESITY, NOS 05/16/2018 BELINDA RIVERA DO Ot 625.9 FEM GENITAL SYMPTOMS NOS 05/16/2018 BELINDA RIVERA DO Ot V76.12 OTH SCREEN MAMMO-MALIGN NEOPLASM OF [place] 05/16/2018 INGA DIEGO MD Ot 272. 4 HYPERLIPIDEMIA NEC/NOS 05/16/2018 INGA DIEGO MD Ot 305. 1 TOBACCO USE DISORDER 05/16/2018 INGA DIEGO MD Ot 401. 9 HYPERTENSION NOS 05/16/2018 INGA DIEGO MD Ot 414. 00 CORON ATHEROSCLER NOS TYPE VESSEL, NATIV 05/16/2018 INGA DIEGO MD Ot 427. 81 SINOATRIAL NODE DYSFUNCT 05/16/2018 INGA DIEGO MD Ot 530. 81 ESOPHAGEAL REFLUX 05/16/2018 ROZ SOTELO FACC, ALI FACP CCDS Ot 789.30 ABDOMINAL/PELVIC SWELLING,MASS/LUMP UNSP 05/16/2018 MIGUEL DOBELINDA S Ot Z12.31 ENCNTR SCREEN MAMMOGRAM FOR MALIGNANT NE 05/16/2018 INDIA BARROW MD Ot R19.7 DIARRHEA, UNSPECIFIED 05/16/2018 INDIA BARROW MD Ot Z01.818 ENCOUNTER FOR OTHER PREPROCEDURAL EXAMIN 05/16/2018 JOVON LING MD Ot Z12.31 ENCNTR SCREEN MAMMOGRAM FOR MALIGNANT NE 05/16/2018 JOVON LING MD Ot R92.8 OTH ABN AND INCONCLUSIVE FINDINGS ON DX 05/16/2018 INDIA BARROW MD Ot E78.5 HYPERLIPIDEMIA, UNSPECIFIED 05/16/2018 INDIA BARROW MD Ot I1 0 ESSENTIAL (PRIMARY) HYPERTENSION 05/16/2018 INDIA BRAROW MD Ot I25.10 ATHSCL HEART DISEASE OF [place] CORONARY 05/16/2018 INDIA BARROW MD Ot K57.30 DVRTCLOS OF LG INT W/O PERFORATION OR AB 05/16/2018 INDIA BARROW MD Ot K63.5 POLYP OF COLON 05/16/2018 INDIA BARROW MD Ot Z12.11 ENCOUNTER FOR SCREENING FOR MALIGNANT NE 05/16/2018 INDIA BARROW MD Ot Z79.899 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 05/16/2018 INDIA BARROW MD Ot Z01.818 ENCOUNTER FOR OTHER PREPROCEDURAL EXAMIN 05/16/2018 INDIA BARROW MD Ot Z12.11 ENCOUNTER FOR SCREENING FOR MALIGNANT NE 05/16/2018 LOLLY SUTTON APRN Ot R92.8 OTH ABN AND INCONCLUSIVE FINDINGS ON DX 05/16/[address] ST[address] MGR Ot M11.261 OTHER CHONDROCALCINOSIS, RIGHT KNEE 05/16/[address] ST[address] MGR Ot M11.262 OTHER CHONDROCALCINOSIS, LEFT KNEE 05/16/2018 COURTNEY SOTELO, BELINDA Gomez Ot E04 .2 NONTOXIC MULTINODULAR GOITER 05/16/[address] ST[address] MGR Ot R92.8 OTH ABN AND INCONCLUSIVE FINDINGS ON DX 05/16/[address] [facility] MGR Ot M41.9 SCOLIOSIS, UNSPECIFIED 05/16/[address] ST[address] MGR Ot M47.816 SPONDYLOSIS W/O MYELOPATHY OR RADICULOPA 05/16/[address] ST[address] MGR Ot M79.605 PAIN IN LEFT LEG 05/16/[address] ST[address] MGR Ot R90.82 WHITE MATTER DISEASE, UNSPECIFIED 05/16/[address] ST[address] MGR Ot W19.XXXA UNSPECIFIED FALL, INITIAL ENCOUNTER 05/16/2018 JUDY BRUNO HAND PACKAGER Ot E04.2 NONTOXIC MULTINODULAR GOITER 05/16/2018 COURTNEY SOTELO, BELINDA Gomez Ot E04 .1 NONTOXIC SINGLE THYROID NODULE 05/17/2018 MACY GLYNN MD Ot E78. 00 PURE HYPERCHOLESTEROLEMIA, UNSPECIFIED 05/17/2018 MACY GLYNN MD Ot F03. 90 UNSPECIFIED DEMENTIA WITHOUT BEHAVIORAL 05/17/2018 MACY GLYNN MD Ot F31. 9 BIPOLAR DISORDER, UNSPECIFIED 05/17/2018 MACY GLYNN MD Ot G30. 9 ALZHEIMER'S DISEASE, UNSPECIFIED 05/17/2018 MACY GLYNN MD Ot G40.909 EPILEPSY, UNSP, NOT INTRACTABLE, WITHOUT 05/17/2018 MACY GLYNN MD Ot I12. 9 HYPERTENSIVE CHRONIC KIDNEY DISEASE W ST 05/17/2018 MACY GLYNN MD Ot I25. 10 ATHSCL HEART DISEASE OF [place] CORONARY 05/17/2018 MACY GLYNN MD Ot K21. 9 GASTRO-ESOPHAGEAL REFLUX DISEASE WITHOUT 05/17/2018 MACY GLYNN MD Ot M54. 2 CERVICALGIA 05/17/2018 MACY GLYNN MD Ot N18. 9 CHRONIC KIDNEY DISEASE, UNSPECIFIED 05/17/2018 MACY GLYNN MD Ot N39. 0 URINARY TRACT INFECTION, SITE NOT SPECIF 05/17/2018 MACY GLYNN MD Ot R40.2142 COMA SCALE, EYES OPEN, SPONTANEOUS, EMR 05/17/2018 MACY GLYNN MD Ot R40.2242 COMA SCALE, BEST VERBAL RESPONSE, CONFUS 05/17/2018 MACY GLYNN MD Ot R40.2362 COMA SCALE, BEST MOTOR RESPONSE, OBEYS C 05/17/2018 MACY GLYNN MD Ot R51 HEADACHE 05/17/2018 MACY GLYNN MD Ot W19.XXXA UNSPECIFIED FALL, INITIAL ENCOUNTER 05/17/2018 MACY GLYNN MD Ot Z79. 52 LONG-TERM (CURRENT) USE OF SYSTEMIC STER 05/17/2018 MACY GLYNN MD Ot Z79. 82 LONG-TERM (CURRENT) USE OF ASPIRIN 05/17/2018 MACY GLYNN MD Ot Z80. 0 FAMILY HISTORY OF MALIGNANT NEOPLASM OF 05/17/2018 MACY GLYNN MD Ot Z82. 49 FAMILY HX OF ISCHEM HEART DIS AND OTH DI 05/17/2018 MACY GLYNN MD Ot Z87. 09 PERSONAL HISTORY OF OTHER DISEASES OF TH 05/17/2018 MACY GLYNN MD Ot Z87.820 PERSONAL HISTORY OF TRAUMATIC BRAIN INJU 05/17/2018 MACY GLYNN MD Ot Z87.891 PERSONAL HISTORY OF NICOTINE DEPENDENCE 05/17/2018 MACY GLYNN MD Ot Z88. 0 ALLERGY STATUS TO PENICILLIN 05/17/2018 MACY GLYNN MD Ot Z90. 49 ACQUIRED ABSENCE OF OTHER SPECIFIED PART 05/17/2018 MACY GLYNN MD Ot Z91.040 LATEX ALLERGY STATUS 08/07/2018 ALLISON OLVERA APRN Ot D64.9 ANEMIA, UNSPECIFIED 08/07/2018 ALLISON OLVERA APRN Ot K44.9 DIAPHRAGMATIC HERNIA WITHOUT OBSTRUCTION 08/07/2018 ALLISON OLVERA APRN Ot K63.9 DISEASE OF INTESTINE, UNSPECIFIED 08/07/2018 ALLISNO OLVERA APRN Ot M47.816 SPONDYLOSIS W/O MYELOPATHY OR RADICULOPA 08/07/2018 ALLISON OLVERA APRN Ot M48.061 SPINAL STENOSIS, LUMBAR REGION WITHOUT N 08/07/2018 ALLISON OLVERA STORE MGR Ot Z90.49 ACQUIRED ABSENCE OF OTHER SPECIFIED PART 08/09/2018 ALLISON OLVERA STORE MGR Ot D64.9 ANEMIA, UNSPECIFIED 08/09/2018 ALLISON OLVERA STORE MGR Ot K44.9 DIAPHRAGMATIC HERNIA WITHOUT OBSTRUCTION 08/09/2018 ALLISON OLVERA STORE MGR Ot K63.9 DISEASE OF INTESTINE, UNSPECIFIED 08/09/2018 ALLISON OLVERA [place] STORE MGR Ot M47.816 SPONDYLOSIS W/O MYELOPATHY OR RADICULOPA 08/09/2018 ALLISON OLVERA [place] STORE MGR Ot M48.061 SPINAL STENOSIS, LUMBAR REGION WITHOUT N 08/09/2018 ALLISON OLVERA [place] STORE MGR Ot Z90.49 ACQUIRED ABSENCE OF OTHER SPECIFIED PART 08/09/2018 ALLISON OLVERA [place] STORE MGR Ot D64.9 ANEMIA, UNSPECIFIED 08/09/2018 ALLISON OLVERA [place] STORE MGR Ot K44.9 DIAPHRAGMATIC HERNIA WITHOUT OBSTRUCTION 08/09/2018 ALLISON OLVERA [place] STORE MGR Ot K63.9 DISEASE OF INTESTINE, UNSPECIFIED 08/09/2018 ALLISON OLVERA [place] STORE MGR Ot M47.816 SPONDYLOSIS W/O MYELOPATHY OR RADICULOPA 08/09/2018 ALLISON OLVERA [place] STORE MGR Ot M48.061 SPINAL STENOSIS, LUMBAR REGION WITHOUT N 08/09/2018 ALLISON OLVERA [place] STORE MGR Ot Z90.49 ACQUIRED ABSENCE OF OTHER SPECIFIED PART 08/25/2018 JOVON LING MD Ot Z12.31 ENCNTR SCREEN MAMMOGRAM FOR MALIGNANT NE 08/25/2018 JOVON LING MD Ot R92.8 OTH ABN AND INCONCLUSIVE FINDINGS ON DX 08/25/2018 JOVON LING MD Ot Z12.31 ENCNTR SCREEN MAMMOGRAM FOR MALIGNANT NE 08/26/2018 ALLISON OLVERA [place] STORE MGR Ot D64.9 ANEMIA, UNSPECIFIED 08/26/2018 ALLISON OLVERA [place] STORE MGR Ot K44.9 DIAPHRAGMATIC HERNIA WITHOUT OBSTRUCTION 08/26/2018 ALLISON OLVERA [place] STORE MGR Ot K63.9 DISEASE OF INTESTINE, UNSPECIFIED 08/26/2018 ALLISON OLVERA [place] STORE MGR Ot M47.816 SPONDYLOSIS W/O MYELOPATHY OR RADICULOPA 08/26/2018 ERWIN OLVERAOlga Sims STORE MGR Ot M48.061 SPINAL STENOSIS, LUMBAR REGION WITHOUT N 08/26/2018 ALLISON OLVERA STORE MGR Ot Z90.49 ACQUIRED ABSENCE OF OTHER SPECIFIED PART 08/31/2018 ALLISON OLVERA [place] BUSTILLOSN Ot D64.9 ANEMIA, UNSPECIFIED 08/31/2018 ALLISON OLVERA [place] STORE MGR Ot K44.9 DIAPHRAGMATIC HERNIA WITHOUT OBSTRUCTION 08/31/2018 ALLISON OLVERA [place] STORE MGR Ot K63.9 DISEASE OF INTESTINE, UNSPECIFIED 08/31/2018 ALLISON OLVERA [place] STORE MGR Ot M47.816 SPONDYLOSIS W/O MYELOPATHY OR RADICULOPA 08/31/2018 ALLISON OLVERA [place] STORE MGR Ot M48.061 SPINAL STENOSIS, LUMBAR REGION WITHOUT N 08/31/2018 ALLISON OLVERA [place] STORE MGR Ot Z90.49 ACQUIRED ABSENCE OF OTHER SPECIFIED PART 09/05/2018 ALLISON OLVERA [place] STORE MGR Ot N63.20 UNSPECIFIED LUMP IN THE LEFT BREAST, UNS 09/05/2018 ALLISON OLVERA [place] STORE MGR Ot N64.89 OTHER SPECIFIED DISORDERS OF BREAST 09/14/2018 ANURADHA SOTELO, JOVON Post Ot R92.8 OT ABN AND INCONCLUSIVE FINDINGS ON DX 09/14/2018 ANURADHA SOTELO, JOVON Post Ot Z12.31 ENCNTR SCREEN MAMMOGRAM FOR MALIGNANT NE 09/16/2018 ALLISON OLVERA [place] STORE MGR Ot N63.20 UNSPECIFIED LUMP IN THE LEFT BREAST, UNS 09/23/2018 JAZIEL BROOKS Ot D61.818 OTHER PANCYTOPENIA 09/23/2018 JAZIEL BROOKS Ot F02.80 DEMENTIA IN OTH DISEASES CLASSD ELSWHR W 09/23/2018 JAZIEL BROOKS Ot F17.210 NICOTINE DEPENDENCE, CIGARETTES, UNCOMPL 09/23/2018 JAZIEL BROOKS Ot F32.9 MAJOR DEPRESSIVE DISORDER, SINGLE EPISOD 09/23/2018 JAZIEL BROOKS Ot G30.9 ALZHEIMER'S DISEASE, UNSPECIFIED 09/23/2018 JAZIEL BROOKS Ot G40.909 EPILEPSY, UNSP, NOT INTRACTABLE, WITHOUT 09/23/2018 JAZIEL BROOKS Ot I12.9 HYPERTENSIVE CHRONIC KIDNEY DISEASE W ST 09/23/2018 JAZIEL BROOKS Ot I25.10 ATHSCL HEART DISEASE OF [place] CORONARY 09/23/2018 JAZIEL BROOKS Ot I73.9 PERIPHERAL VASCULAR DISEASE, UNSPECIFIED 09/23/2018 JAZIEL BROOKS Ot K21.9 GASTRO-ESOPHAGEAL REFLUX DISEASE WITHOUT 09/23/2018 JAZIEL BROOKS Ot N17.9 ACUTE KIDNEY FAILURE, UNSPECIFIED 09/23/2018 JAZIEL BROOKS Ot N18.9 CHRONIC KIDNEY DISEASE, UNSPECIFIED 09/23/2018 JAZIEL BROOKS Ot R63.4 ABNORMAL WEIGHT LOSS 09/23/2018 JAZIEL BROOKS Ot Z79.82 AIRCRAFT ENGINE DISMANTLER (CURRENT) USE OF ASPIRIN 09/23/2018 JAZIEL BROOKS Ot Z79.899 OTHER LONG-TERM (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 THERAPY 09/23/2018 JAZIEL BROOKS Ot Z87.820 PERSONAL HISTORY OF TRAUMATIC BRAIN INJU 09/26/2018 ALLISON OLVERA STORE MGR Ot N63.20 UNSPECIFIED LUMP IN THE LEFT BREAST, UNS 09/26/2018 ALLISON OLVERA STORE MGR Ot N64.89 OTHER SPECIFIED DISORDERS OF BREAST 09/29/2018 ALLISON OLVERA STORE MGR Ot N63.20 UNSPECIFIED LUMP IN THE LEFT BREAST, UNS 09/29/2018 ALLISON OLVERA STORE MGR Ot N64.89 OTHER SPECIFIED DISORDERS OF BREAST 09/29/2018 JAZIEL BROOKS Ot D61.818 OTHER PANCYTOPENIA 09/29/2018 JAZIEL BROOKS Ot F02.80 DEMENTIA IN OTH DISEASES CLASSD ELSWHR W 09/29/2018 JAZIEL BROOKS Ot F17.210 NICOTINE DEPENDENCE, CIGARETTES, UNCOMPL 09/29/2018 JAZIEL BROOKS Ot F32.9 MAJOR DEPRESSIVE DISORDER, SINGLE EPISOD 09/29/2018 JAZIEL BROOKS Ot G30.9 ALZHEIMER'S DISEASE, UNSPECIFIED 09/29/2018 JAZIEL BROOKS Ot G40.909 EPILEPSY, UNSP, NOT INTRACTABLE, WITHOUT 09/29/2018 JAZIEL BROOKS Ot I12.9 HYPERTENSIVE CHRONIC KIDNEY DISEASE W ST 09/29/2018 JAZIEL BROOKS Ot I25.10 ATHSCL HEART DISEASE OF [place] CORONARY 09/29/2018 JAZIEL BROOKS Ot I73.9 PERIPHERAL VASCULAR DISEASE, UNSPECIFIED 09/29/2018 JAZIEL BROOKS Ot K21.9 GASTRO-ESOPHAGEAL REFLUX DISEASE WITHOUT 09/29/2018 JAZIEL BROOKS Ot N17.9 ACUTE KIDNEY FAILURE, UNSPECIFIED 09/29/2018 JAZIEL BROOKS Ot N18.9 CHRONIC KIDNEY DISEASE, UNSPECIFIED 09/29/2018 JAZIEL BROOKS Ot R63.4 ABNORMAL WEIGHT LOSS 09/29/2018 JAZIEL BROOKS Ot Z79.82 LONG-TERM (CURRENT) USE OF ASPIRIN 09/29/2018 JAZIEL BROOKS Ot Z79.899 OTHER LONG-TERM (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 THERAPY 09/29/2018 JAZIEL BROOKS Ot Z87.820 PERSONAL HISTORY OF TRAUMATIC BRAIN INJU 10/04/2018 ALLISON OLVERA STORE MGR Ot N63.20 UNSPECIFIED LUMP IN THE LEFT BREAST, UNS 10/19/2018 ALLISON OLVERA STORE MGR Ot N63.20 UNSPECIFIED LUMP IN THE LEFT BREAST, UNS 11/02/2018 MIGUEL DO, BELINDA S Ot 278.00 OBESITY, NOS 11/02/2018 FENAINSLEY DO BELINDA S Ot 625.9 FEM GENITAL SYMPTOMS NOS 11/02/2018 MIGUEL DO BELINDA S Ot V76.12 OTH SCREEN MAMMO-MALIGN NEOPLASM OF [place] 11/02/2018 INGA DIEGO MD Ot 272. 4 HYPERLIPIDEMIA NEC/NOS 11/02/2018 INGA DIEGO MD Ot 305. 1 TOBACCO USE DISORDER 11/02/2018 INGA DIEGO MD Ot 401. 9 HYPERTENSION NOS 11/02/2018 INGA DIEGO MD Ot 414. 00 CORON ATHEROSCLER NOS TYPE VESSEL, NATIV 11/02/2018 INGA DIEGO MD Ot 427. 81 SINOATRIAL NODE DYSFUNCT 11/02/2018 INGA DIEGO MD Ot 530. 81 ESOPHAGEAL REFLUX 11/02/2018 ROZ SOTELO FACC, ALI FACP CCDS Ot 789.30 ABDOMINAL/PELVIC SWELLING,MASS/LUMP UNSP 11/02/2018 FENAINSLEY DO BELINDA S Ot Z12.31 ENCNTR SCREEN MAMMOGRAM FOR MALIGNANT NE 11/02/2018 PUSHPA SOTELO, IND[place] Sims Ot R19.7 DIARRHEA, UNSPECIFIED 11/02/2018 PUSHPA SOTELO, IND[place] Sims Ot Z01.818 ENCOUNTER FOR OTHER PREPROCEDURAL EXAMIN 11/02/2018 ANURADHA SOTELO, JOVON Post Ot Z12.31 ENCNTR SCREEN MAMMOGRAM FOR MALIGNANT NE 11/02/2018 ANURADHA SOTELO, JOVON Post Ot R92.8 OTH ABN AND INCONCLUSIVE FINDINGS ON DX 11/02/2018 INDIA BARRWO MD Ot E78.5 HYPERLIPIDEMIA, UNSPECIFIED 11/02/2018 INDIA BARROW MD Ot I1 0 ESSENTIAL (PRIMARY) HYPERTENSION 11/02/2018 INDIA BARROW MD Ot I25.10 ATHSCL HEART DISEASE OF [place] CORONARY 11/02/2018 INDIA BARROW MD Ot K57.30 DVRTCLOS OF LG INT W/O PERFORATION OR AB 11/02/2018 INDIA BARROW MD Ot K63.5 POLYP OF COLON 11/02/2018 INDIA BARROW MD Ot Z12.11 ENCOUNTER FOR SCREENING FOR MALIGNANT NE 11/02/2018 INDIA BARROW MD Ot Z79.899 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 11/02/2018 INDIA BARROW MD Ot Z01.818 ENCOUNTER FOR OTHER PREPROCEDURAL EXAMIN 11/02/2018 INDIA BARROW MD Ot Z12.11 ENCOUNTER FOR SCREENING FOR MALIGNANT NE 11/02/2018 LOLLY SUTTON APRN Ot R92.8 OTH ABN AND INCONCLUSIVE FINDINGS ON DX 11/02/2018 LOLLY SUTTON STORE MGR Ot M11.261 OTHER CHONDROCALCINOSIS, RIGHT KNEE 11/02/2018 LOLLY SUTTON STORE MGR Ot M11.262 OTHER CHONDROCALCINOSIS, LEFT KNEE 11/02/2018 COURTNEY SOTELO, BELINDA Gomez Ot E04 .2 NONTOXIC MULTINODULAR GOITER 11/02/2018 LOLLY SUTTNO STORE MGR Ot R92.8 OTH ABN AND INCONCLUSIVE FINDINGS ON DX 11/02/2018 LOLLY SUTTON STORE MGR Ot M41.9 SCOLIOSIS, UNSPECIFIED 11/02/2018 LOLLY SUTTON STORE MGR Ot M47.816 SPONDYLOSIS W/O MYELOPATHY OR RADICULOPA 11/02/2018 LOLLY SUTTON APRN Ot M79.605 PAIN IN LEFT LEG 11/02/2018 LOLLY SUTTON STORE MGR Ot R90.82 WHITE MATTER DISEASE, UNSPECIFIED 11/02/2018 LOLLY SUTTON STORE MGR Ot W19.XXXA UNSPECIFIED FALL, INITIAL ENCOUNTER 11/02/2018 DAMION, JUDY J HAND PACKAGER Ot E04.2 NONTOXIC MULTINODULAR GOITER 11/02/2018 COURTNEY SOTELO, BELINDA P Ot E04 .1 NONTOXIC SINGLE THYROID NODULE 11/02/2018 ANURADHA SOTELO, JOVON Post Ot R92.8 OT ABN AND INCONCLUSIVE FINDINGS ON DX 11/02/2018 ANURADHA SOTELO, JOVON Post Ot Z12.31 ENCNTR SCREEN MAMMOGRAM FOR MALIGNANT NE 11/02/2018 ALLISON OLVERA STORE MGR Ot D64.9 ANEMIA, UNSPECIFIED 11/02/2018 ALLISON OLVERA STORE MGR Ot K44.9 DIAPHRAGMATIC HERNIA WITHOUT OBSTRUCTION 11/02/2018 ALLISON OLVERA STORE MGR Ot K63.9 DISEASE OF INTESTINE, UNSPECIFIED 11/02/2018 ALLISON OLVERA STORE MGR Ot M47.816 SPONDYLOSIS W/O MYELOPATHY OR RADICULOPA 11/02/2018 ALLISON OLVERA STORE MGR Ot M48.061 SPINAL STENOSIS, LUMBAR REGION WITHOUT N 11/02/2018 ALLISON OLVERA STORE MGR Ot Z90.49 ACQUIRED ABSENCE OF OTHER SPECIFIED PART 11/02/2018 JAZIEL BROOKS N Ot D61.818 OTHER PANCYTOPENIA 11/02/2018 JAZIEL BROOKS N Ot F02.80 DEMENTIA IN OT DISEASES CLASSD ELSWHR W 11/02/2018 JAZIEL BROOKS N Ot F17.210 NICOTINE DEPENDENCE, CIGARETTES, UNCOMPL 11/02/2018 JAZIEL BROOKS N Ot F32.9 MAJOR DEPRESSIVE DISORDER, SINGLE EPISOD 11/02/2018 JAZIEL BROOKS N Ot G30.9 ALZHEIMER'S DISEASE, UNSPECIFIED 11/02/2018 JAZIEL BROOKS N Ot G40.909 EPILEPSY, UNSP, NOT INTRACTABLE, WITHOUT 11/02/2018 JAZIEL BROOKS N Ot I12.9 HYPERTENSIVE CHRONIC KIDNEY DISEASE W ST 11/02/2018 JAZIEL BROOKS N Ot I25.10 ATHSCL HEART DISEASE OF [place] CORONARY 11/02/2018 JAZIEL BROOKS N Ot I73.9 PERIPHERAL VASCULAR DISEASE, UNSPECIFIED 11/02/2018 JAZIEL BROOKS N Ot K21.9 GASTRO-ESOPHAGEAL REFLUX DISEASE WITHOUT 11/02/2018 JAZIEL BROOKS N Ot N17.9 ACUTE KIDNEY FAILURE, UNSPECIFIED 11/02/2018 JAZIEL BROOKS N Ot N18.9 CHRONIC KIDNEY DISEASE, UNSPECIFIED 11/02/2018 JAZIEL BROOKS Ot R63.4 ABNORMAL WEIGHT LOSS 11/02/2018 JAZIEL BROOKS Ot Z79.82 AIRCRAFT ENGINE DISMANTLER (CURRENT) USE OF ASPIRIN 11/02/2018 JAZIEL BROOKS Ot Z79.899 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 11/02/2018 JAZIEL BROOKS Ot Z87.820 PERSONAL HISTORY OF TRAUMATIC BRAIN INJU 11/02/2018 ALLISON OLVERA STORE MGR Ot N63.20 UNSPECIFIED LUMP IN THE LEFT BREAST, UNS 11/02/2018 ALLISON OLVERA STORE MGR Ot N64.89 OTHER SPECIFIED DISORDERS OF BREAST 11/02/2018 ALLISON OLVERA STORE MGR Ot N63.20 UNSPECIFIED LUMP IN THE LEFT BREAST, UNS 11/03/2018 JAZIEL BROOKS Ot D61.818 OTHER PANCYTOPENIA 11/03/2018 JAZIEL BROOKS Ot F02.80 DEMENTIA IN OTH DISEASES CLASSD ELSWHR W 11/03/2018 JAZIEL BROOKS Ot F17.210 NICOTINE DEPENDENCE, CIGARETTES, UNCOMPL 11/03/2018 JAZIEL BROOKS Ot F32.9 MAJOR DEPRESSIVE DISORDER, SINGLE EPISOD 11/03/2018 JAZIEL BROOKS Ot G30.9 ALZHEIMER'S DISEASE, UNSPECIFIED 11/03/2018 JAZIEL BROOKS Ot G40.909 EPILEPSY, UNSP, NOT INTRACTABLE, WITHOUT 11/03/2018 JAZIEL BROOKS Ot I12.9 HYPERTENSIVE CHRONIC KIDNEY DISEASE W ST 11/03/2018 JAZIEL BROOKS Ot I25.10 ATHSCL HEART DISEASE OF [place] CORONARY 11/03/2018 JAZIEL BROOKS Ot I73.9 PERIPHERAL VASCULAR DISEASE, UNSPECIFIED 11/03/2018 JAZIEL BROOKS Ot K21.9 GASTRO-ESOPHAGEAL REFLUX DISEASE WITHOUT 11/03/2018 JAZIEL BROOKS Ot N17.9 ACUTE KIDNEY FAILURE, UNSPECIFIED 11/03/2018 JAZIEL BROOKS Ot N18.9 CHRONIC KIDNEY DISEASE, UNSPECIFIED 11/03/2018 AJZIEL BROOKS Ot R63.4 ABNORMAL WEIGHT LOSS 11/03/2018 JAZIEL BROOKS Ot Z79.82 AIRCRAFT ENGINE DISMANTLER (CURRENT) USE OF ASPIRIN 11/03/2018 JAZIEL BROOKS Ot Z79.899 OTHER LONG-TERM (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 THERAPY 11/03/2018 JAZIEL BROOKS Ot Z87.820 PERSONAL HISTORY OF TRAUMATIC BRAIN INJU 11/08/2018 GIAN BROWN MD, Ot Z01.81 8 ENCOUNTER FOR OTHER PREPROCEDURAL EXAMIN 11/08/2018 GIAN BROWN MD, Ot Z01.81 8 ENCOUNTER FOR OTHER PREPROCEDURAL EXAMIN 11/09/2018 GIAN BROWN MD, Ot Z01.81 8 ENCOUNTER FOR OTHER PREPROCEDURAL EXAMIN 11/09/2018 GIAN BROWN MD, Ot E78.5 HYPERLIPIDEMIA, UNSPECIFIED 11/09/2018 GIAN BROWN MD, Ot F02.80 DEMENTIA IN OTH DISEASES CLASSD ELSWHR W 11/09/2018 GIAN BROWN MD, Ot F17.21 0 NICOTINE DEPENDENCE, CIGARETTES, UNCOMPL 11/09/2018 GIAN BROWN MD, Ot F20.9 SCHIZOPHRENIA, UNSPECIFIED 11/09/2018 GIAN BROWN MD, Ot F32.9 MAJOR DEPRESSIVE DISORDER, SINGLE EPISOD 11/09/2018 GIAN BROWN MD, Ot F41.9 ANXIETY DISORDER, UNSPECIFIED 11/09/2018 GIAN BROWN MD, Ot G30.9 ALZHEIMER'S DISEASE, UNSPECIFIED 11/09/2018 GIAN BROWN MD, Ot G40.90 9 EPILEPSY, UNSP, NOT INTRACTABLE, WITHOUT 11/09/2018 GIAN BROWN MD, Ot G47.00 INSOMNIA, UNSPECIFIED 11/09/2018 GIAN BROWN MD, Ot I10 ESSENTIAL (PRIMARY) HYPERTENSION 11/09/2018 GIAN BROWN MD, Ot K21.0 GASTRO-ESOPHAGEAL REFLUX DISEASE WITH ES 11/09/2018 GIAN BROWN MD, Ot K29.50 UNSPECIFIED CHRONIC GASTRITIS WITHOUT BL 11/09/2018 GIAN BRONW MD, Ot K44.9 DIAPHRAGMATIC HERNIA WITHOUT OBSTRUCTION 11/09/2018 GIAN BROWN MD, Ot K59.00 CONSTIPATION, UNSPECIFIED 11/09/2018 GIAN BROWN MD, Ot K64.1 SECOND DEGREE HEMORRHOIDS 11/09/2018 GIAN BROWN MD, Ot L40.9 PSORIASIS, UNSPECIFIED 11/09/2018 KIDO MD, TAKAAKI Ot M19.91 PRIMARY OSTEOARTHRITIS, UNSPECIFIED SITE 11/09/2018 GIAN BROWN MD, Ot Z79.82 LONG-TERM (CURRENT) USE OF ASPIRIN 11/09/2018 GIAN BROWN MD, Ot Z79.89 9 OTHER LONG-TERM (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 THERAPY 11/09/2018 GIAN BROWN MD, Ot Z80.0 FAMILY HISTORY OF MALIGNANT NEOPLASM OF 11/09/2018 GIAN BROWN MD, Ot Z80.8 FAMILY HISTORY OF MALIGNANT NEOPLASM OF 11/09/2018 GIAN BROWN MD, Ot Z87.44 0 PERSONAL HISTORY OF URINARY (TRACT) INFE 11/09/2018 GIAN BROWN MD, Ot Z87.82 0 PERSONAL HISTORY OF TRAUMATIC BRAIN INJU 11/09/2018 GIAN BROWN MD, Ot Z88.0 ALLERGY STATUS TO PENICILLIN 11/09/2018 GIAN BROWN MD, Ot Z91.04 0 LATEX ALLERGY STATUS 11/11/2018 GIAN BROWN MD, Ot E78.5 HYPERLIPIDEMIA, UNSPECIFIED 11/11/2018 GIAN BROWN MD, Ot F02.80 DEMENTIA IN OTH DISEASES CLASSD ELSWHR W 11/11/2018 GIAN BROWN MD, Ot F17.21 0 NICOTINE DEPENDENCE, CIGARETTES, UNCOMPL 11/11/2018 GIAN BROWN MD, Ot F20.9 SCHIZOPHRENIA, UNSPECIFIED 11/11/2018 GIAN BROWN MD, Ot F32.9 MAJOR DEPRESSIVE DISORDER, SINGLE EPISOD 11/11/2018 GIAN BROWN MD, Ot F41.9 ANXIETY DISORDER, UNSPECIFIED 11/11/2018 GIAN BROWN MD, Ot G30.9 ALZHEIMER'S DISEASE, UNSPECIFIED 11/11/2018 GIAN BROWN MD, Ot G40.90 9 EPILEPSY, UNSP, NOT INTRACTABLE, WITHOUT 11/11/2018 GIAN BROWN MD, Ot G47.00 INSOMNIA, UNSPECIFIED 11/11/2018 GIAN BROWN MD, Ot I10 ESSENTIAL (PRIMARY) HYPERTENSION 11/11/2018 GIAN BROWN MD, Ot K21.0 GASTRO-ESOPHAGEAL REFLUX DISEASE WITH ES 11/11/2018 GIAN BROWN MD, Ot K29.50 UNSPECIFIED CHRONIC GASTRITIS WITHOUT BL 11/11/2018 GIAN BROWN MD, Ot K44.9 DIAPHRAGMATIC HERNIA WITHOUT OBSTRUCTION 11/11/2018 GIAN BROWN MD, Ot K59.00 CONSTIPATION, UNSPECIFIED 11/11/2018 GIAN BROWN MD, Ot K64.1 SECOND DEGREE HEMORRHOIDS 11/11/2018 GIAN BROWN MD, Ot L40.9 PSORIASIS, UNSPECIFIED 11/11/2018 GIAN BROWN MD, Ot M19.91 PRIMARY OSTEOARTHRITIS, UNSPECIFIED SITE 11/11/2018 GIAN BROWN MD, Ot Z79.82 AIRCRAFT ENGINE DISMANTLER (CURRENT) USE OF ASPIRIN 11/11/2018 GIAN BROWN MD, Ot Z79.89 9 OTHER LONG-TERM (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 THERAPY 11/11/2018 GIAN BROWN MD, Ot Z80.0 FAMILY HISTORY OF MALIGNANT NEOPLASM OF 11/11/2018 GIAN BROWN MD, Ot Z80.8 FAMILY HISTORY OF MALIGNANT NEOPLASM OF 11/11/2018 GIAN BROWN MD, Ot Z87.44 0 PERSONAL HISTORY OF URINARY (TRACT) INFE 11/11/2018 GIAN BROWN MD, Ot Z87.82 0 PERSONAL HISTORY OF TRAUMATIC BRAIN INJU 11/11/2018 GIAN BROWN MD, Ot Z88.0 ALLERGY STATUS TO PENICILLIN 11/11/2018 GIAN BROWN MD, Ot Z91.04 0 LATEX ALLERGY STATUS 11/16/2018 GIAN BROWN MD, Ot E78.5 HYPERLIPIDEMIA, UNSPECIFIED 11/16/2018 GIAN BROWN MD, Ot F02.80 DEMENTIA IN OTH DISEASES CLASSD ELSWHR W 11/16/2018 GIAN BROWN MD, Ot F17.21 0 NICOTINE DEPENDENCE, CIGARETTES, UNCOMPL 11/16/2018 GIAN BROWN MD, Ot F20.9 SCHIZOPHRENIA, UNSPECIFIED 11/16/2018 GIAN BROWN MD, Ot F32.9 MAJOR DEPRESSIVE DISORDER, SINGLE EPISOD 11/16/2018 GIAN BROWN MD, Ot F41.9 ANXIETY DISORDER, UNSPECIFIED 11/16/2018 GIAN BROWN MD, Ot G30.9 ALZHEIMER'S DISEASE, UNSPECIFIED 11/16/2018 GIAN BROWN MD, Ot G40.90 9 EPILEPSY, UNSP, NOT INTRACTABLE, WITHOUT 11/16/2018 GIAN BROWN MD, Ot G47.00 INSOMNIA, UNSPECIFIED 11/16/2018 GIAN BROWN MD, Ot I10 ESSENTIAL (PRIMARY) HYPERTENSION 11/16/2018 GIAN BROWN MD, Ot K21.0 GASTRO-ESOPHAGEAL REFLUX DISEASE WITH ES 11/16/2018 GIAN BROWN MD, Ot K29.50 UNSPECIFIED CHRONIC GASTRITIS WITHOUT BL 11/16/2018 GIAN BROWN MD, Ot K44.9 DIAPHRAGMATIC HERNIA WITHOUT OBSTRUCTION 11/16/2018 GIAN BROWN MD, Ot K59.00 CONSTIPATION, UNSPECIFIED 11/16/2018 GIAN BROWN MD, Ot K64.1 SECOND DEGREE HEMORRHOIDS 11/16/2018 GIAN BROWN MD, Ot L40.9 PSORIASIS, UNSPECIFIED 11/16/2018 GIAN BROWN MD, Ot M19.91 PRIMARY OSTEOARTHRITIS, UNSPECIFIED SITE 11/16/2018 GIAN BROWN MD, Ot Z79.82 AIRCRAFT ENGINE DISMANTLER (CURRENT) USE OF ASPIRIN 11/16/2018 GIAN BROWN MD, Ot Z79.89 9 OTHER LONG-TERM (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 THERAPY 11/16/2018 GIAN BROWN MD, Ot Z80.0 FAMILY HISTORY OF MALIGNANT NEOPLASM OF 11/16/2018 GIAN BROWN MD, Ot Z80.8 FAMILY HISTORY OF MALIGNANT NEOPLASM OF 11/16/2018 GIAN BROWN MD, Ot Z87.44 0 PERSONAL HISTORY OF URINARY (TRACT) INFE 11/16/2018 GIAN BROWN MD, Ot Z87.82 0 PERSONAL HISTORY OF TRAUMATIC BRAIN INJU 11/16/2018 GIAN BROWN MD, Ot Z88.0 ALLERGY STATUS TO PENICILLIN 11/16/2018 GIAN BROWN MD, Ot Z91.04 0 LATEX ALLERGY STATUS 11/17/2018 JAZIEL BROOKS Ot D61.818 OTHER PANCYTOPENIA 11/17/2018 JAZIEL BROOKS Ot F02.80 DEMENTIA IN OTH DISEASES CLASSD ELSWHR W 11/17/2018 JAZIEL BROOKS Ot F17.210 NICOTINE DEPENDENCE, CIGARETTES, UNCOMPL 11/17/2018 JAZIEL BROOKS Ot F32.9 MAJOR DEPRESSIVE DISORDER, SINGLE EPISOD 11/17/2018 JAZIEL BROOKS Ot G30.9 ALZHEIMER'S DISEASE, UNSPECIFIED 11/17/2018 JAZIEL BROOKS Ot G40.909 EPILEPSY, UNSP, NOT INTRACTABLE, WITHOUT 11/17/[address] Ot I12.9 HYPERTENSIVE CHRONIC KIDNEY DISEASE W ST 11/17/[address] Ot I25.10 ATHSCL HEART DISEASE OF [place] CORONARY 11/17/[address] Ot I73.9 PERIPHERAL VASCULAR DISEASE, UNSPECIFIED 11/17/[address] Ot K21.9 GASTRO-ESOPHAGEAL REFLUX DISEASE WITHOUT 11/17/[address] Ot N17.9 ACUTE KIDNEY FAILURE, UNSPECIFIED 11/17/[address] Ot N18.9 CHRONIC KIDNEY DISEASE, UNSPECIFIED 11/17/[address] Ot R63.4 ABNORMAL WEIGHT LOSS 11/17/[address] Ot Z79.82 LONG-TERM (CURRENT) USE OF ASPIRIN 11/17/[address] Ot Z79.899 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 11/17/[address] Ot Z87.820 PERSONAL HISTORY OF TRAUMATIC BRAIN INJU 11/17/2018 FAIZA BUTTERFIELD MD Ot E78.00 PURE HYPERCHOLESTEROLEMIA, UNSPECIFIED 11/17/2018 FAIZA BUTTERFIELD MD Ot F03.90 UNSPECIFIED DEMENTIA WITHOUT BEHAVIORAL 11/17/2018 FAIZA BUTTERFIELD MD, Ot F31 .9 BIPOLAR DISORDER, UNSPECIFIED 11/17/2018 FAIZA BUTTERFIELD MD Ot G04.90 ENCEPHALITIS AND ENCEPHALOMYELITIS, UNSP 11/17/2018 FAIZA BUTTERFIELD MD Ot G25.81 RESTLESS LEGS SYNDROME 11/17/2018 FAIZA BUTTERFIELD MD Ot G40.909 EPILEPSY, UNSP, NOT INTRACTABLE, WITHOUT 11/17/2018 FAIZA BUTTERFIELD MD Ot I12 .9 HYPERTENSIVE CHRONIC KIDNEY DISEASE W ST 11/17/2018 FAIZA BUTTERFIELD MD Ot I25.10 ATHSCL HEART DISEASE OF [place] CORONARY 11/17/2018 FAIZA BUTTERFIELD MD Ot K21 .9 GASTRO-ESOPHAGEAL REFLUX DISEASE WITHOUT 11/17/2018 FAIZA BUTTERFIELD MD Ot K58 .9 IRRITABLE BOWEL SYNDROME WITHOUT DIARRHE 11/17/2018 FAIZA BUTTERFIELD MD Ot M25.552 PAIN IN LEFT HIP 11/17/2018 FAIZA BUTTERFIELD MD Ot N18 .9 CHRONIC KIDNEY DISEASE, UNSPECIFIED 11/17/2018 FAIZA BUTTERFIELD MD, Ot W01.198A FALL SAME LEV FROM SLIP/TRIP W STRIKE AG 11/17/2018 FAIZA BUTTERFIELD MD, Ot Z79.52 LONG-TERM (CURRENT) USE OF SYSTEMIC STER 11/17/2018 FAIZA BUTTERFIELD MD, Ot Z79.82 LONG-TERM (CURRENT) USE OF ASPIRIN 11/17/2018 FAIZA BUTTERFIELD MD, Ot Z80 .0 FAMILY HISTORY OF MALIGNANT NEOPLASM OF 11/17/2018 FAIZA BUTTERFIELD MD, Ot Z82.49 FAMILY HX OF ISCHEM HEART DIS AND OTH DI 11/17/2018 FAIZA BUTTERFIELD MD, Ot Z87.09 PERSONAL HISTORY OF OTHER DISEASES OF TH 11/17/2018 FAIZA BUTTERFIELD MD, Ot Z87.19 PERSONAL HISTORY OF OTHER DISEASES OF 11/17/2018 FAIZA BUTTERFIELD MD, Ot Z87.820 PERSONAL HISTORY OF TRAUMATIC BRAIN INJU 11/17/2018 FAIZA BUTTERFIELD MD, Ot Z87.891 PERSONAL HISTORY OF NICOTINE DEPENDENCE 11/17/2018 FAIZA BUTTERFIELD MD Ot Z88 .0 ALLERGY STATUS TO PENICILLIN 11/17/2018 FAIZA BUTTERFIELD MD Ot Z90.49 ACQUIRED ABSENCE OF OTHER SPECIFIED PART 11/17/2018 FAIZA BUTTERFIELD MD Ot Z91.040 LATEX ALLERGY STATUS 11/17/2018 FAIZA BUTTERFIELD MD Ot Z98.890 OTHER SPECIFIED POSTPROCEDURAL STATES 11/21/2018 FAIZA BUTTERFIELD MD Ot E78.00 PURE HYPERCHOLESTEROLEMIA, UNSPECIFIED 11/21/2018 FAIZA BUTTERFIELD MD Ot F03.90 UNSPECIFIED DEMENTIA WITHOUT BEHAVIORAL 11/21/2018 FAIZA BUTTERFIELD MD Ot F31 .9 BIPOLAR DISORDER, UNSPECIFIED 11/21/2018 FAIZA BUTTERFIELD MD Ot G04.90 ENCEPHALITIS AND ENCEPHALOMYELITIS, UNSP 11/21/2018 FAIZA BUTTERFIELD MD Ot G25.81 RESTLESS LEGS SYNDROME 11/21/2018 FAIZA BUTTERFIELD MD Ot G40.909 EPILEPSY, UNSP, NOT INTRACTABLE, WITHOUT 11/21/2018 FAIZA BUTTERFIELD MD Ot I12 .9 HYPERTENSIVE CHRONIC KIDNEY DISEASE W ST 11/21/2018 FAIZA BUTTERFIELD MD Ot I25.10 ATHSCL HEART DISEASE OF [place] CORONARY 11/21/2018 FAIZA BUTTERFIELD MD, Ot K21 .9 GASTRO-ESOPHAGEAL REFLUX DISEASE WITHOUT 11/21/2018 FAIZA BUTTERFIELD MD, Ot K58 .9 IRRITABLE BOWEL SYNDROME WITHOUT DIARRHE 11/21/2018 FAIZA BUTTERFIELD MD, Ot M25.552 PAIN IN LEFT HIP 11/21/2018 FAIZA BUTTERFIELD MD, Ot N18 .9 CHRONIC KIDNEY DISEASE, UNSPECIFIED 11/21/2018 FAIZA BUTTERFIELD MD Ot W01.198A FALL SAME LEV FROM SLIP/TRIP W STRIKE AG 11/21/2018 FAIZA BUTTERFIELD MD, Ot Z79.52 [employer] DISMANTLER (CURRENT) USE OF SYSTEMIC STER 11/21/2018 FAIZA BUTTERFIELD MD, Ot Z79.82 AIR[employer]FT [employer]INE DISMANTLER (CURRENT) USE OF ASPIRIN 11/21/2018 FAIZA BUTTERFIELD MD, Ot Z80 .0 FAMILY HISTORY OF MALIGNANT NEOPLASM OF 11/21/2018 FAIZA BUTTERFIELD MD, Ot Z82.49 FAMILY HX OF ISCHEM HEART DIS AND OTH DI 11/21/2018 FAIZA BUTTERFIELD MD, Ot Z87.09 PERSONAL HISTORY OF OTHER DISEASES OF TH 11/21/2018 FAIZA BUTTERFIELD MD, Ot Z87.19 PERSONAL HISTORY OF OTHER DISEASES OF TH 11/21/2018 FAIZA BUTTERFIELD MD, Ot Z87.820 PERSONAL HISTORY OF TRAUMATIC BRAIN INJU 11/21/2018 FAIZA BUTTERFIELD MD, Ot Z87.891 PERSONAL HISTORY OF NICOTINE DEPENDENCE 11/21/2018 FAIZA BUTTERFIELD MD Ot Z88 .0 ALLERGY STATUS TO PENICILLIN 11/21/2018 FAIZA BUTTERFIELD MD, Ot Z90.49 ACQUIRED ABSENCE OF OTHER SPECIFIED PART 11/21/2018 FAIZA BUTTERFIELD MD Ot Z91.040 LATEX ALLERGY STATUS 11/21/2018 FAIZA BUTTERFIELD MD, Ot Z98.890 OTHER SPECIFIED POSTPROCEDURAL STATES 11/23/2018 JAZIEL BROOKS Ot D61.818 OTHER PANCYTOPENIA 11/23/2018 JAZIEL BROOKS Ot F02.80 DEMENTIA IN OTH DISEASES CLASSD ELSWHR W 11/23/2018 JAZIEL BROOKS Ot F17.210 NICOTINE DEPENDENCE, CIGARETTES, UNCOMPL 11/23/2018 JAZIEL BROOKS Ot F32.9 MAJOR DEPRESSIVE DISORDER, SINGLE EPISOD 11/23/[address] Ot G30.9 ALZHEIMER'S DISEASE, UNSPECIFIED 11/23/[address] Ot G40.909 EPILEPSY, UNSP, NOT INTRACTABLE, WITHOUT 11/23/[address] Ot I12.9 HYPERTENSIVE CHRONIC KIDNEY DISEASE W ST 11/23/[address] Ot I25.10 ATHSCL HEART DISEASE OF [place] CORONARY 11/23/[address] Ot I73.9 PERIPHERAL VASCULAR DISEASE, UNSPECIFIED 11/23/[address] Ot K21.9 GASTRO-ESOPHAGEAL REFLUX DISEASE WITHOUT 11/23/[address] Ot N17.9 ACUTE KIDNEY FAILURE, UNSPECIFIED 11/23/[address] Ot N18.9 CHRONIC KIDNEY DISEASE, UNSPECIFIED 11/23/[address] Ot R63.4 ABNORMAL WEIGHT LOSS 11/23/[address] Ot Z79.82 LONG-TERM (CURRENT) USE OF ASPIRIN 11/23/[address] Ot Z79.899 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 11/23/[address] Ot Z87.820 PERSONAL HISTORY OF TRAUMATIC BRAIN INJU 03/16/2019 ANURADHA SOTELO, JOVON Post Ot N63.22 UNSPECIFIED LUMP IN THE LEFT BREAST, UPP 03/20/2019 ANURADHA SOTELO, JOVON Post Ot N63.21 UNSPECIFIED LUMP IN THE LEFT BREAST, UPP 03/20/2019 ANURADHA SOTELO, JOVON Post Ot N63.23 UNSPECIFIED LUMP IN THE LEFT BREAST, LOW 04/06/2019 ANURADHA SOTELO, JOVON Post Ot N63.21 UNSPECIFIED LUMP IN THE LEFT BREAST, UPP 04/06/2019 JOVON LING MD Ot N63.23 UNSPECIFIED LUMP IN THE LEFT BREAST, LOW 07/21/2019 COURTNEY SOTELO, BELINDA Gomez Ot E04 .2 NONTOXIC MULTINODULAR GOITER Procedures Code Description Performed By Per formed On 37.22 10/06/2010 88.53 10/06/2010 88.56 10/06/2010 86863 ROUT INE VENIPUNCTURE 05/03/2012 90593 CBC 05/03/2012 38864 LIPI D PANEL 05/03/2012 60212 CMP 05/03/2012 [id number] GF R CALC (RESULT ONLY) 05/03/2012 49379 TOPI RAMATE (TOPAMAX) 05/05/2012 80492 LEVKetty TIRACETAM (KEPPRA) LEVEL 05/06/2012 Cardiolog Sage Tuttle 11/15/2012 29268 MAMM OGRAM, SCREENING 03/30/2013 12194 CBC 03/30/2013 Obstetric Fenech, Belinda 05/02/2013 Results Test Result Range Complete blood count (CBC) with automate d white blood cell (WBC) differential - 06/10/16 21:27 Blood leukocytes automated count (number/volume) 5.9 10*3/uL 4.3-11.0 Blood erythrocytes automated count (number/volume) 4.20 10*6/uL 4.35-5.85 Venous blood hemoglobin measurement (mass/volume) 13.7 g/dL 11.5-16.0 Blood hematocrit (volume fraction) 42 % 35-52 Automated erythrocyte mean corpuscular volume 100 [foz_us] 80-99 Automated erythrocyte mean corpuscular h emoglobin (mass per erythrocyte) 33 pg 25-34 Automated erythrocyte mean corpuscular h emoglobin concentration measurement (mass/volume) 33 g/dL 32-36 Automated erythrocyte distribution width ratio 12. 6 % 10.0- 14.5 Automated blood platelet count (count/volume) 198 10*3/uL [...] 10*3 1.0-4.0 Blood monocytes automated count (number/volume) 0. 9 10*3 0.0-1.0 Automated eosinophil count 0.2 10*3/uL 0 .0-0.3 Automated blood basophil count (count/volume) 0.0 10*3/uL 0.0-0.1 Comprehensive metabolic panel - 06/10/16 21:27 Serum or plasma sodium measurement (moles/volume) 142 mmol/L 135-145 Serum or plasma potassium measurement (moles/volume) 3.5 mmol/L 3.6-5.0 Serum or plasma chloride measurement (moles/volume) 112 mmol/L 98-107 Carbon dioxide 20 mmol/L 21-32 Serum or plasma anion gap determination (moles/volume) 10 mmol/L 5-14 Serum or plasma urea nitrogen measurement (mass/volume ) 18 mg/dL 7-18 Serum or plasma creatinine measurement (mass/volume) 1.12 mg/dL 0.60-1.30 Serum or plasma urea nitrogen/creatinine mass ratio 16 NRG Serum or plasma creatinine measurement w ith calculation of estimated glomerular filtration rate 49 NRG Serum or plasma glucose measurement (mass/volume) 97 mg/dL 70-105 Serum or plasma calcium measurement (mass/volume) 9.5 mg/dL 8.5-10.1 Serum or plasma total bilirubin measurement (mass/volu me) 0.6 mg/dL 0.1-1.0 Serum or plasma alkaline phosphatase olimpia surement (enzymatic activity/volume) 92 U/L 40-136 Serum or plasma aspartate aminotransfera se measurement (enzymatic activity/volume) 32 U/L 5-34 Serum or plasma alanine aminotransferase measurement (enzymatic activity/volume) 26 U/L 0-55 Serum or plasma protein measurement (mass/volume) 6.7 g/dL 6.4-8.2 Serum or plasma albumin measurement (mass/volume) 3.9 g/dL 3.2-4.5 Serum or plasma troponin i.cardiac measu rement (mass/volume) - 06/10/16 21:27 Serum or plasma troponin i.cardiac measurement (mass/v olume) < ng/mL <0.30 THYROID STIMULATING HORMONE - 06/10/16 2 1:27 THYROID STIMULATING HORMONE 0.42 u[iU]/mL 0.35-4.94 Serum or plasma thyroxine (T4) free neptali urement (mass/volume) - 06/10/16 21:27 Serum or plasma thyroxine (T4) free measurement (mass/ volume) 0.94 ng/dL 0.70-1.48 Complete urinalysis with reflex to cultu re - 06/10/16 22:35 Urine color determination YELLOW NRG Urine clarity determination CLEAR NR G Urine pH measurement by test strip 7 5-9 Specific gravity of urine by test strip 1.010 1.016-1.022 Urine protein assay by test strip, semi-quantitative NEGATIVE NEGATIVE Urine glucose detection by automated test strip NE GATIVE NEGATIVE Erythrocytes detection in urine sediment by light micr oscopy NEGATIVE NEGATIVE Urine ketones detection by automated test strip NE GATIVE NEGATIVE Urine nitrite detection by test strip NEGATIVE NEGATIVE Urine total bilirubin detection by test strip NEGA TIVE NEGATIVE Urine urobilinogen measurement by automated test strip (mass/volume) NORMAL NORMAL Urine leukocyte esterase detection by dipstick NEG ATIVE NEGATIVE Automated urine sediment erythrocyte cou nt by microscopy (number/high power field) NONE NRG Automated urine sediment leukocyte count by microscopy (number/high power field) NONE NRG Bacteria detection in urine sediment by light microsco py NONE NRG Crystals detection in urine sediment by light microsco py PRESENT NRG Casts detection in urine sediment by light microscopy NONE NRG Mucus detection in urine sediment by light microscopy NEGATIVE NRG Complete urinalysis with reflex to culture NO NRG Amorphous sediment detection in urine sediment by ligh t microscopy MOD JOSE URATES NRG COMPLETE BLOOD COUNT - 06/18/16 18:22 Platelet 165 10^3u 142-424 MPV 10.8 FL 9.4-12.4 [place] # 0.84 10^3u 0.0-1.0 RBC 4.01 10^6u 4.04-6.13 [place] % 14.7 % 0-12 RDW 12.8 % [...] Urobilinogen 0.2 0.2-1.0 Urine RBC N0-2 Specific [place] 1.010 1.010-1.020 Urine WBC N3-5 Blood Trace Negative Color Yellow Yellow Squamous Epithelial Cells Trace Bilirubin Negative Negative Site VOID EKG - 06/22/16 04:26 EKG [facility] COMPLETE BLOOD COUNT - 06/23/16 05:54 Platelet 153 10^3u 142-424 MPV 10.6 FL 9.4-12.4 [place] # 0.97 10^3u 0.0-1.0 RBC 3.81 10^6u 4.04-6.13 [place] % 11.8 % 0-12 RDW 12.5 % [...] BNP - 06/23/16 06:40 BNP 67.4 PG/ML <= 100 Occult Blood Set - 06/26/16 16:12 Occult Bld 1 NEG Negative Occult Bld 2nd NEG Negative Occult Bld 3rd NEG Negative COMPLETE BLOOD COUNT - 06/25/16 12:01 Platelet 160 10^3u 142-424 MPV 10.1 FL 9.4-12.4 [place] # 0.65 10^3u 0.0-1.0 RBC 3.89 10^6u 4.04-6.13 [place] % 13.3 % 0-12 RDW 12.6 % [...] CKMB - 06/25/16 12:17 CKMB 2.1 NG/ML <= 6 Troponin I - 06/25/16 12:17 Troponin I 0.02 NG/ML <= 0.20 CPK - 06/25/16 12:17 CPK 101 U/L 30-170 BNP - 06/25/16 12:17 BNP 60.2 PG/ML <= 100 CMP - 06/25/16 12:28 Osmo Calculated 279 [...] ND Not Detected Plesiomonas shigelloides ND Not D etected Salmonella ND Not Detected Vibrio ND Not Detected Vibrio cholerae ND Not Detected Yersinia enterocolitica ND Not De tected Source UNFORMED Enteroaggregative E. coli ND Not Detected Enteropathogenic E. coli ND Not D etected Enterotoxigenic E. coli ND Not De tected Shiga-like toxin-prod. E coli ND Not Detected Shigella/Enteroinvasive E.coli ND Not Detected Cryptosporidium ND Not Detected Cyclospora cayetanensis ND Not De tected Entamoeba histolytica ND Not Dete cted Giardia lamblia ND Not Detected Adenovirus F 40/41 ND Not Detecte d Astrovirus ND Not Detected Norovirus GI/GII ND Not Detected Rotavirus A ND Not Detected Sapovirus ND Not Detected E coli 0157 ND Not Detected Strep A Screen - 06/27/16 09:09 Strep A Screen NEG Negative Respiratory Panel-Bio Fire - 06/27/16 11 :42 Adeno ND Not Detected Adeno2 ND Not Detected Coronavirus 229E ND Not Detected Coronavirus HKU1 ND Not Detected Coronavirus NL63 ND Not Detected Coronavirus OC43 ND Not Detected Human Metapneumovirus ND Not Dete cted Entero 1 ND Not Detected Entero 2 ND Not Detected Human Rhinovirus 1 ND Not Detecte d Human Rhinovirus 2 ND Not Detecte d Human Rhinovirus 3 ND Not Detecte d Human Rhinovirus 4 ND Not Detecte d [id number] ND Not Detected FluA-H1-ford ND Not Detected FluA-H3 ND Not Detected FluA-pan1 ND Not Detected FluA-pan2 ND Not Detected Influenza B ND Not Detected Parainfluenza Virus 1 ND Not Dete cted Parainfluenza Virus 2 ND Not Dete cted Parainfluenza Virus 3 ND Not Dete cted Parainfluenza Virus 4 ND Not Dete cted Respiratory Syncytial Virus ND No t Detected Bordetella pertussis ND Not Detec jaylon Chlamydophilia pneumoniae ND Not Detected Mycoplasma pneumoniae ND Not Dete cted COMPLETE BLOOD COUNT - 07/01/16 05:58 Platelet 123 10^3u 142-424 MPV 10.8 FL 9.4-12.4 [place] # 0.84 10^3u 0.0-1.0 RBC 4.05 10^6u 4.04-6.13 [place] % 15.9 % 0-12 RDW 13.0 % [...] EKG SMR Complete urinalysis with reflex to cultu re - 08/03/16 09:58 Urine color determination YELLOW NRG Urine clarity determination CLEAR NR G Urine pH measurement by test strip 7 5-9 Specific gravity of urine by test strip 1.010 1.016-1.022 Urine protein assay by test strip, semi-quantitative NEGATIVE NEGATIVE Urine glucose detection by automated test strip NE GATIVE NEGATIVE Erythrocytes detection in urine sediment by light micr oscopy NEGATIVE NEGATIVE Urine ketones detection by automated test strip NE GATIVE NEGATIVE Urine nitrite detection by test strip NEGATIVE NEGATIVE Urine total bilirubin detection by test strip NEGA TIVE NEGATIVE Urine urobilinogen measurement by automated test strip (mass/volume) NORMAL NORMAL Urine leukocyte esterase detection by dipstick NEG ATIVE NEGATIVE Automated urine sediment erythrocyte cou nt by microscopy (number/high power field) NONE NRG Automated urine sediment leukocyte count by microscopy (number/high power field) NONE NRG Bacteria detection in urine sediment by light microsco py NEGATIVE NRG Squamous epithelial cells detection in u rine sediment by light microscopy RARE NRG Crystals detection in urine sediment by light microsco py NONE NRG Casts detection in urine sediment by light microscopy NONE NRG Mucus detection in urine sediment by light microscopy NEGATIVE NRG Complete urinalysis with reflex to culture NO NRG Complete blood count (CBC) with automate d white blood cell (WBC) differential - 08/26/16 20:30 Blood leukocytes automated count (number/volume) 6.6 10*3/uL 4.3-11.0 Blood erythrocytes automated count (number/volume) 3.71 10*6/uL 4.35-5.85 Venous blood hemoglobin measurement (mass/volume) 12.3 g/dL 11.5-16.0 Blood hematocrit (volume fraction) 37 % 35-52 Automated erythrocyte mean corpuscular volume 100 [foz_us] 80-99 Automated erythrocyte mean corpuscular h emoglobin (mass per erythrocyte) 33 pg 25-34 Automated erythrocyte mean corpuscular h emoglobin concentration measurement (mass/volume) 33 g/dL 32-36 Automated erythrocyte distribution width ratio 12. 6 % 10.0- 14.5 Automated blood platelet count (count/volume) 162 10*3/uL [...] 10*3 1.0-4.0 Blood monocytes automated count (number/volume) 0. 9 10*3 0.0-1.0 Automated eosinophil count 0.3 10*3/uL 0 .0-0.3 Automated blood basophil count (count/volume) 0.0 10*3/uL 0.0-0.1 Comprehensive metabolic panel - 08/26/16 20:30 Serum or plasma sodium measurement (moles/volume) 143 mmol/L 135-145 Serum or plasma potassium measurement (moles/volume) 3.7 mmol/L 3.6-5.0 Serum or plasma chloride measurement (moles/volume) 110 mmol/L 98-107 Carbon dioxide 22 mmol/L 21-32 Serum or plasma anion gap determination (moles/volume) 11 mmol/L 5-14 Serum or plasma urea nitrogen measurement (mass/volume ) 16 mg/dL 7-18 Serum or plasma creatinine measurement (mass/volume) 1.12 mg/dL 0.60-1.30 Serum or plasma urea nitrogen/creatinine mass ratio 14 NRG Serum or plasma creatinine measurement w ith calculation of estimated glomerular filtration rate 49 NRG Serum or plasma glucose measurement (mass/volume) 114 mg/dL 70-105 Serum or plasma calcium measurement (mass/volume) 8.5 mg/dL 8.5-10.1 Serum or plasma total bilirubin measurement (mass/volu me) 0.4 mg/dL 0.1-1.0 Serum or plasma alkaline phosphatase olimpia surement (enzymatic activity/volume) 104 U/L 40-136 Serum or plasma aspartate aminotransfera se measurement (enzymatic activity/volume) 40 U/L 5-34 Serum or plasma alanine aminotransferase measurement (enzymatic activity/volume) 27 U/L 0-55 Serum or plasma protein measurement (mass/volume) 6.3 g/dL 6.4-8.2 Serum or plasma albumin measurement (mass/volume) 3.5 g/dL 3.2-4.5 Lipase - 08/26/16 20:30 Lipase 29 U/L 8-78 Serum or plasma troponin i.cardiac measu rement (mass/volume) - 08/26/16 20:30 Serum or plasma troponin i.cardiac measurement (mass/v olume) < ng/mL <0.30 Serum or plasma lithium measurement (mol es/volume) - 08/26/16 20:30 BNP level 54.4 pg/mL <100.0 Complete urinalysis with reflex to cultu re - 08/26/16 21:39 Urine color determination YELLOW NRG Urine clarity determination CLEAR NR G Urine pH measurement by test strip 8 5-9 Specific gravity of urine by test strip 1.010 1.016-1.022 Urine protein assay by test strip, semi-quantitative NEGATIVE NEGATIVE Urine glucose detection by automated test strip NE GATIVE NEGATIVE Erythrocytes detection in urine sediment by light micr oscopy NEGATIVE NEGATIVE Urine ketones detection by automated test strip NE GATIVE NEGATIVE Urine nitrite detection by test strip NEGATIVE NEGATIVE Urine total bilirubin detection by test strip NEGA TIVE NEGATIVE Urine urobilinogen measurement by automated test strip (mass/volume) NORMAL NORMAL Urine leukocyte esterase detection by dipstick NEG ATIVE NEGATIVE Automated urine sediment erythrocyte cou nt by microscopy (number/high power field) NONE NRG Automated urine sediment leukocyte count by microscopy (number/high power field) [HPF] NRG Bacteria detection in urine sediment by light microsco py TRACE NRG Squamous epithelial cells detection in u rine sediment by light microscopy 0-2 NRG Crystals detection in urine sediment by light microsco py PRESENT NRG Casts detection in urine sediment by light microscopy NONE NRG Mucus detection in urine sediment by light microscopy NEGATIVE NRG Complete urinalysis with reflex to culture NO NRG Amorphous sediment detection in urine sediment by ligh t microscopy LARGE JOSE PHOSPHATE NRG Complete urinalysis with reflex to cultu re - 09/30/16 11:20 Urine color determination YELLOW NRG Urine clarity determination CLEAR NR G Urine pH measurement by test strip 8 5-9 Specific gravity of urine by test strip 1.010 1.016-1.022 Urine protein assay by test strip, semi-quantitative NEGATIVE NEGATIVE Urine glucose detection by automated test strip NE GATIVE NEGATIVE Erythrocytes detection in urine sediment by light micr oscopy NEGATIVE NEGATIVE Urine ketones detection by automated test strip NE GATIVE NEGATIVE Urine nitrite detection by test strip NEGATIVE NEGATIVE Urine total bilirubin detection by test strip NEGA TIVE NEGATIVE Urine urobilinogen measurement by automated test strip (mass/volume) NORMAL NORMAL Urine leukocyte esterase detection by dipstick NEG ATIVE NEGATIVE Automated urine sediment erythrocyte cou nt by microscopy (number/high power field) NONE NRG Automated urine sediment leukocyte count by microscopy (number/high power field) NONE NRG Bacteria detection in urine sediment by light microsco py NONE NRG Crystals detection in urine sediment by light microsco py PRESENT NRG Casts detection in urine sediment by light microscopy NONE NRG Mucus detection in urine sediment by light microscopy NEGATIVE NRG Complete urinalysis with reflex to culture NO NRG Amorphous sediment detection in urine sediment by ligh t microscopy MOD JOSE PHOSPHATE NRG Complete blood count (CBC) with automate d white blood cell (WBC) differential - 09/30/16 21:31 Blood leukocytes automated count (number/volume) 6.7 10*3/uL 4.3-11.0 Blood erythrocytes automated count (number/volume) 4.28 10*6/uL 4.35-5.85 Venous blood hemoglobin measurement (mass/volume) 14.1 g/dL 11.5-16.0 Blood hematocrit (volume fraction) 41 % 35-52 Automated erythrocyte mean corpuscular volume 97 [ foz_us] 80-99 Automated erythrocyte mean corpuscular h emoglobin (mass per erythrocyte) 33 pg 25-34 Automated erythrocyte mean corpuscular h emoglobin concentration measurement (mass/volume) 34 g/dL 32-36 Automated erythrocyte distribution width ratio 11. 9 % 10.0- 14.5 Automated blood platelet count (count/volume) 167 10*3/uL [...] 10*3 1.0-4.0 Blood monocytes automated count (number/volume) 1. 1 10*3 0.0-1.0 Automated eosinophil count 0.2 10*3/uL 0 .0-0.3 Automated blood basophil count (count/volume) 0.0 10*3/uL 0.0-0.1 PT panel in platelet poor plasma by coag ulation assay - 09/30/16 21:31 Prothrombin time (PT) in platelet poor plasma by coagu lation assay 12.5 s 12.2-14.7 INR in platelet poor plasma or blood by coagulation as say 1.0 0.8-1.4 Activated partial thromboplastin time (a PTT) in platelet poor plasma bycoagulation assay - 09/30/16 21:31 Activated partial thromboplastin time (a PTT) in platelet poor plasma bycoagulation assay 29 s 24-35 Comprehensive metabolic panel - 09/30/16 21:31 Serum or plasma sodium measurement (moles/volume) 138 mmol/L 135-145 Serum or plasma potassium measurement (moles/volume) 2.1 mmol/L 3.6-5.0 Serum or plasma chloride measurement (moles/volume) 93 mmol/L 98-107 Carbon dioxide 32 mmol/L 21-32 Serum or plasma anion gap determination (moles/volume) 13 mmol/L 5-14 Serum or plasma urea nitrogen measurement (mass/volume ) 22 mg/dL 7-18 Serum or plasma creatinine measurement (mass/volume) 1.45 mg/dL 0.60-1.30 Serum or plasma urea nitrogen/creatinine mass ratio 15 NRG Serum or plasma creatinine measurement w ith calculation of estimated glomerular filtration rate 36 NRG Serum or plasma glucose measurement (mass/volume) 116 mg/dL 70-105 Serum or plasma calcium measurement (mass/volume) 9.6 mg/dL 8.5-10.1 Serum or plasma total bilirubin measurement (mass/volu me) 0.4 mg/dL 0.1-1.0 Serum or plasma alkaline phosphatase olimpia surement (enzymatic activity/volume) 108 U/L 40-136 Serum or plasma aspartate aminotransfera se measurement (enzymatic activity/volume) 39 U/L 5-34 Serum or plasma alanine aminotransferase measurement (enzymatic activity/volume) 26 U/L 0-55 Serum or plasma protein measurement (mass/volume) 7.0 g/dL 6.4-8.2 Serum or plasma albumin measurement (mass/volume) 4.0 g/dL 3.2-4.5 Magnesium - 09/30/16 21:31 Magnesium 2.4 mg/dL 1.8-2.4 Serum or plasma troponin i.cardiac measu rement (mass/volume) - 09/30/16 21:31 Serum or plasma troponin i.cardiac measurement (mass/v olume) < ng/mL <0.30 Serum or plasma amylase measurement (enz ymatic activity/volume) - 09/30/16 21:31 Serum or plasma amylase measurement (enzymatic activit y/volume) 71 U/L 25-125 Lipase - 09/30/16 21:31 Lipase 29 U/L 8-78 Complete blood count (CBC) with automate d white blood cell (WBC) differential - 10/01/16 04:40 Blood leukocytes automated count (number/volume) 6.2 10*3/uL 4.3-11.0 Blood erythrocytes automated count (number/volume) 4.00 10*6/uL 4.35-5.85 Venous blood hemoglobin measurement (mass/volume) 13.0 g/dL 11.5-16.0 Blood hematocrit (volume fraction) 39 % 35-52 Automated erythrocyte mean corpuscular volume 97 [ foz_us] 80-99 Automated erythrocyte mean corpuscular h emoglobin (mass per erythrocyte) 33 pg 25-34 Automated erythrocyte mean corpuscular h emoglobin concentration measurement (mass/volume) 34 g/dL 32-36 Automated erythrocyte distribution width ratio 11. 7 % 10.0- 14.5 Automated blood platelet count (count/volume) 134 10*3/uL [...] 10*3 1.0-4.0 Blood monocytes automated count (number/volume) 1. 3 10*3 0.0-1.0 Automated eosinophil count 0.3 10*3/uL 0 .0-0.3 Automated blood basophil count (count/volume) 0.0 10*3/uL 0.0-0.1 Comprehensive metabolic panel - 10/01/16 04:40 Serum or plasma sodium measurement (moles/volume) 135 mmol/L 135-145 Serum or plasma potassium measurement (moles/volume) 2.8 mmol/L 3.6-5.0 Serum or plasma chloride measurement (moles/volume) 95 mmol/L 98-107 Carbon dioxide 31 mmol/L 21-32 Serum or plasma anion gap determination (moles/volume) 9 mmol/L 5-14 Serum or plasma urea nitrogen measurement (mass/volume ) 20 mg/dL 7-18 Serum or plasma creatinine measurement (mass/volume) 1.37 mg/dL 0.60-1.30 Serum or plasma urea nitrogen/creatinine mass ratio 15 NRG Serum or plasma creatinine measurement w ith calculation of estimated glomerular filtration rate 39 NRG Serum or plasma glucose measurement (mass/volume) 106 mg/dL 70-105 Serum or plasma calcium measurement (mass/volume) 8.7 mg/dL 8.5-10.1 Serum or plasma total bilirubin measurement (mass/volu me) 0.4 mg/dL 0.1-1.0 Serum or plasma alkaline phosphatase olimpia surement (enzymatic activity/volume) 93 U/L 40-136 Serum or plasma aspartate aminotransfera se measurement (enzymatic activity/volume) 35 U/L 5-34 Serum or plasma alanine aminotransferase measurement (enzymatic activity/volume) 22 U/L 0-55 Serum or plasma protein measurement (mass/volume) 6.2 g/dL 6.4-8.2 Serum or plasma albumin measurement (mass/volume) 3.5 g/dL 3.2-4.5 Serum or plasma amylase measurement (enz ymatic activity/volume) - 10/01/16 04:40 Serum or plasma amylase measurement (enzymatic activit y/volume) 64 U/L 25-125 Lipase - 10/01/16 04:40 Lipase 28 U/L 8-78 Blood manual differential performed dete ction - 10/01/16 04:40 Blood monocytes/100 leukocytes 17 [...] mg/dL 1.8-2.4 Complete blood count (CBC) with automate d white blood cell (WBC) differential - 10/02/16 05:12 Blood leukocytes automated count (number/volume) 5.9 10*3/uL 4.3-11.0 Blood erythrocytes automated count (number/volume) 4.05 10*6/uL 4.35-5.85 Venous blood hemoglobin measurement (mass/volume) 13.0 g/dL 11.5-16.0 Blood hematocrit (volume fraction) 40 % 35-52 Automated erythrocyte mean corpuscular volume 99 [ foz_us] 80-99 Automated erythrocyte mean corpuscular h emoglobin (mass per erythrocyte) 32 pg 25-34 Automated erythrocyte mean corpuscular h emoglobin concentration measurement (mass/volume) 32 g/dL 32-36 Automated erythrocyte distribution width ratio 12. 0 % 10.0- 14.5 Automated blood platelet count (count/volume) 152 10*3/uL [...] 10*3 1.0-4.0 Blood monocytes automated count (number/volume) 1. 1 10*3 0.0-1.0 Automated eosinophil count 0.3 10*3/uL 0 .0-0.3 Automated blood basophil count (count/volume) 0.0 10*3/uL 0.0-0.1 Comprehensive metabolic panel - 10/02/16 05:12 Serum or plasma sodium measurement (moles/volume) 139 mmol/L 135-145 Serum or plasma potassium measurement (moles/volume) 4.0 mmol/L 3.6-5.0 Serum or plasma chloride measurement (moles/volume) 105 mmol/L 98-107 Carbon dioxide 28 mmol/L 21-32 Serum or plasma anion gap determination (moles/volume) 6 mmol/L 5-14 Serum or plasma urea nitrogen measurement (mass/volume ) 20 mg/dL 7-18 Serum or plasma creatinine measurement (mass/volume) 1.32 mg/dL 0.60-1.30 Serum or plasma urea nitrogen/creatinine mass ratio 15 NRG Serum or plasma creatinine measurement w ith calculation of estimated glomerular filtration rate 40 NRG Serum or plasma glucose measurement (mass/volume) 88 mg/dL 70-105 Serum or plasma calcium measurement (mass/volume) 9.4 mg/dL 8.5-10.1 Serum or plasma total bilirubin measurement (mass/volu me) 0.4 mg/dL 0.1-1.0 Serum or plasma alkaline phosphatase olimpia surement (enzymatic activity/volume) 86 U/L 40-136 Serum or plasma aspartate aminotransfera se measurement (enzymatic activity/volume) 33 U/L 5-34 Serum or plasma alanine aminotransferase measurement (enzymatic activity/volume) 21 U/L 0-55 Serum or plasma protein measurement (mass/volume) 6.2 g/dL 6.4-8.2 Serum or plasma albumin measurement (mass/volume) 3.5 g/dL 3.2-4.5 Complete blood count (CBC) with automate d white blood cell (WBC) differential - 06/02/17 07:38 Blood leukocytes automated count (number/volume) 6.6 10*3/uL 4.3-11.0 Blood erythrocytes automated count (number/volume) 3.97 10*6/uL 4.35-5.85 Venous blood hemoglobin measurement (mass/volume) 13.2 g/dL 11.5-16.0 Blood hematocrit (volume fraction) 39 % 35-52 Automated erythrocyte mean corpuscular volume 99 [ foz_us] 80-99 Automated erythrocyte mean corpuscular h emoglobin (mass per erythrocyte) 33 pg 25-34 Automated erythrocyte mean corpuscular h emoglobin concentration measurement (mass/volume) 34 g/dL 32-36 Automated erythrocyte distribution width ratio 12. 9 % 10.0- 14.5 Automated blood platelet count (count/volume) 161 10*3/uL [...] 10*3 1.0-4.0 Blood monocytes automated count (number/volume) 1. 1 10*3 0.0-1.0 Automated eosinophil count 0.3 10*3/uL 0 .0-0.3 Automated blood basophil count (count/volume) 0.1 10*3/uL 0.0-0.1 Comprehensive metabolic panel - 06/02/17 07:38 Serum or plasma sodium measurement (moles/volume) 139 mmol/L 135-145 Serum or plasma potassium measurement (moles/volume) 4.1 mmol/L 3.6-5.0 Serum or plasma chloride measurement (moles/volume) 111 mmol/L 98-107 Carbon dioxide 20 mmol/L 21-32 Serum or plasma anion gap determination (moles/volume) 8 mmol/L 5-14 Serum or plasma urea nitrogen measurement (mass/volume ) 16 mg/dL 7-18 Serum or plasma creatinine measurement (mass/volume) 1.19 mg/dL 0.60-1.30 Serum or plasma urea nitrogen/creatinine mass ratio 13 NRG Serum or plasma creatinine measurement w ith calculation of estimated glomerular filtration rate 45 NRG Serum or plasma glucose measurement (mass/volume) 94 mg/dL 70-105 Serum or plasma calcium measurement (mass/volume) 8.7 mg/dL 8.5-10.1 Serum or plasma total bilirubin measurement (mass/volu me) 0.3 mg/dL 0.1-1.0 Serum or plasma alkaline phosphatase olimpia surement (enzymatic activity/volume) 112 U/L 40-136 Serum or plasma aspartate aminotransfera se measurement (enzymatic activity/volume) 41 U/L 5-34 Serum or plasma alanine aminotransferase measurement (enzymatic activity/volume) 29 U/L 0-55 Serum or plasma protein measurement (mass/volume) 6.8 g/dL 6.4-8.2 Serum or plasma albumin measurement (mass/volume) 3.5 g/dL 3.2-4.5 Complete urinalysis with reflex to cultu re - 06/02/17 07:50 Urine color determination YELLOW NRG Urine clarity determination CLEAR NR G Urine pH measurement by test strip 8 5-9 Specific gravity of urine by test strip 1.010 1.016-1.022 Urine protein assay by test strip, semi-quantitative NEGATIVE NEGATIVE Urine glucose detection by automated test strip NE GATIVE NEGATIVE Erythrocytes detection in urine sediment by light micr oscopy NEGATIVE NEGATIVE Urine ketones detection by automated test strip NE GATIVE NEGATIVE Urine nitrite detection by test strip NEGATIVE NEGATIVE Urine total bilirubin detection by test strip NEGA TIVE NEGATIVE Urine urobilinogen measurement by automated test strip (mass/volume) NORMAL NORMAL Urine leukocyte esterase detection by dipstick 1+ NEGATIVE Automated urine sediment erythrocyte cou nt by microscopy (number/high power field) NONE NRG Automated urine sediment leukocyte count by microscopy (number/high power field) [HPF] NRG Bacteria detection in urine sediment by light microsco py FEW NRG Squamous epithelial cells detection in u rine sediment by light microscopy 0-2 NRG Crystals detection in urine sediment by light microsco py PRESENT NRG Casts detection in urine sediment by light microscopy NONE NRG Mucus detection in urine sediment by light microscopy NEGATIVE NRG Complete urinalysis with reflex to culture YES NRG Amorphous sediment detection in urine sediment by ligh t microscopy FEW JOSE PHOSPHATE NRG Bacterial urine culture - 06/02/17 07:50 URINE CULTURE RESULTS <10,000/ML NRG Complete blood count (CBC) with automate d white blood cell (WBC) differential - 08/24/17 12:45 Blood leukocytes automated count (number/volume) 5.8 10*3/uL 4.3-11.0 Blood erythrocytes automated count (number/volume) 4.22 10*6/uL 4.35-5.85 Venous blood hemoglobin measurement (mass/volume) 13.6 g/dL 11.5-16.0 Blood hematocrit (volume fraction) 42 % 35-52 Automated erythrocyte mean corpuscular volume 98 [ foz_us] 80-99 Automated erythrocyte mean corpuscular h emoglobin (mass per erythrocyte) 32 pg 25-34 Automated erythrocyte mean corpuscular h emoglobin concentration measurement (mass/volume) 33 g/dL 32-36 Automated erythrocyte distribution width ratio 13. 3 % 10.0- 14.5 Automated blood platelet count (count/volume) 216 10*3/uL [...] 10*3 1.0-4.0 Blood monocytes automated count (number/volume) 0. 8 10*3 0.0-1.0 Automated eosinophil count 0.5 10*3/uL 0 .0-0.3 Automated blood basophil count (count/volume) 0.0 10*3/uL 0.0-0.1 PT panel in platelet poor plasma by coag ulation assay - 08/24/17 12:45 Prothrombin time (PT) in platelet poor plasma by coagu lation assay 12.6 s 12.2-14.7 INR in platelet poor plasma or blood by coagulation as say 0.9 0.8-1.4 Activated partial thromboplastin time (a PTT) in platelet poor plasma bycoagulation assay - 08/24/17 12:45 Activated partial thromboplastin time (a PTT) in platelet poor plasma bycoagulation assay 26 s 24-35 Fibrin D-dimer FEU measurement in platel et poor plasma (mass/volume) - 08/24/17 12:45 Fibrin D-dimer FEU measurement in platelet poor plasma (mass/volume) 1.44 ug/mL 0.00-0.49 Blood lactic acid measurement (moles/vol ume) - 08/24/17 12:45 Blood lactic acid measurement (moles/volume) 1.34 mmol/L 0.50-2.00 Influenza virus A and B antigen detectio n - 08/24/17 12:45 FLU RESULT NEGATIVE FOR INFLUENZA A AND B ANTIGENS BY [facility] Comprehensive metabolic panel - 08/24/17 12:45 Serum or plasma sodium measurement (moles/volume) 141 mmol/L 135-145 Serum or plasma potassium measurement (moles/volume) 3.9 mmol/L 3.6-5.0 Serum or plasma chloride measurement (moles/volume) 107 mmol/L 98-107 Carbon dioxide 24 mmol/L 21-32 Serum or plasma anion gap determination (moles/volume) 10 mmol/L 5-14 Serum or plasma urea nitrogen measurement (mass/volume ) 19 mg/dL 7-18 Serum or plasma creatinine measurement (mass/volume) 1.32 mg/dL 0.60-1.30 Serum or plasma urea nitrogen/creatinine mass ratio 14 NRG Serum or plasma creatinine measurement w ith calculation of estimated glomerular filtration rate 40 NRG Serum or plasma glucose measurement (mass/volume) 82 mg/dL 70-105 Serum or plasma calcium measurement (mass/volume) 8.9 mg/dL 8.5-10.1 Serum or plasma total bilirubin measurement (mass/volu me) 0.4 mg/dL 0.1-1.0 Serum or plasma alkaline phosphatase olimpia surement (enzymatic activity/volume) 132 U/L 40-136 Serum or plasma aspartate aminotransfera se measurement (enzymatic activity/volume) 32 U/L 5-34 Serum or plasma alanine aminotransferase measurement (enzymatic activity/volume) 25 U/L 0-55 Serum or plasma protein measurement (mass/volume) 7.4 g/dL 6.4-8.2 Serum or plasma albumin measurement (mass/volume) 4.0 g/dL 3.2-4.5 Magnesium - 08/24/17 12:45 Magnesium 2.3 mg/dL 1.8-2.4 Serum or plasma troponin i.cardiac measu rement (mass/volume) - 08/24/17 12:45 Serum or plasma troponin i.cardiac measurement (mass/v olume) < ng/mL <0.30 Serum or plasma creatine kinase measurem ent (enzymatic activity/volume) - 08/24/17 12:45 Serum or plasma creatine kinase measurem ent (enzymatic activity/volume) 140 U/L 29-168 Serum or plasma C reactive protein measu rement (mass/volume) - 08/24/17 12:45 Serum or plasma C reactive protein measurement (mass/v olume) 0.06 mg/dL 0.00-0.50 Myoglobin, serum - 08/24/17 12:45 Myoglobin, serum 91.4 ng/mL 10.0-92.0 Lipase - 08/24/17 12:45 Lipase 29 U/L 8-78 Serum or plasma lithium measurement (mol es/volume) - 08/24/17 12:45 BNP level 21.8 pg/mL <100.0 Bacterial blood culture - 08/24/17 12:45 Bacterial blood culture NG NRG Bacterial blood culture - 08/24/17 13:06 QUANTITY OF GROWTH . NRG Bacterial blood culture SEE COMMEN NRG Complete urinalysis with reflex to cultu re - 08/24/17 14:20 Urine color determination YELLOW NRG Urine clarity determination CLEAR NR G Urine pH measurement by test strip 6.5 5-9 Specific gravity of urine by test strip 1.015 1.016-1.022 Urine protein assay by test strip, semi-quantitative NEGATIVE NEGATIVE Urine glucose detection by automated test strip NE GATIVE NEGATIVE Erythrocytes detection in urine sediment by light micr oscopy NEGATIVE NEGATIVE Urine ketones detection by automated test strip NE GATIVE NEGATIVE Urine nitrite detection by test strip NEGATIVE NEGATIVE Urine total bilirubin detection by test strip NEGA TIVE NEGATIVE Urine urobilinogen measurement by automated test strip (mass/volume) NORMAL NORMAL Urine leukocyte esterase detection by dipstick NEG ATIVE NEGATIVE Automated urine sediment erythrocyte cou nt by microscopy (number/high power field) NONE NRG Automated urine sediment leukocyte count by microscopy (number/high power field) NONE NRG Bacteria detection in urine sediment by light microsco py NEGATIVE NRG Squamous epithelial cells detection in u rine sediment by light microscopy 2-5 NRG Crystals detection in urine sediment by light microsco py NONE NRG Casts detection in urine sediment by light microscopy NONE NRG Mucus detection in urine sediment by light microscopy NEGATIVE NRG Complete urinalysis with reflex to culture NO NRG CCP Antibodies IgG/IgA - 10/21/17 10:35 CCP Antibodies IgG/IgA 5 units 0-19 Complete blood count (CBC) with automate d white blood cell (WBC) differential - 11/24/17 20:35 Blood leukocytes automated count (number/volume) 7.1 10*3/uL 4.3-11.0 Blood erythrocytes automated count (number/volume) 4.01 10*6/uL 4.35-5.85 Venous blood hemoglobin measurement (mass/volume) 13.0 g/dL 11.5-16.0 Blood hematocrit (volume fraction) 39 % 35-52 Automated erythrocyte mean corpuscular volume 98 [ foz_us] 80-99 Automated erythrocyte mean corpuscular h emoglobin (mass per erythrocyte) 32 pg 25-34 Automated erythrocyte mean corpuscular h emoglobin concentration measurement (mass/volume) 33 g/dL 32-36 Automated erythrocyte distribution width ratio 12. 5 % 10.0- 14.5 Automated blood platelet count (count/volume) 228 10*3/uL 130-400 Automated blood platelet mean volume measurement 9.9 [foz_us] 7.4-10.4 Automated blood neutrophils/100 leukocytes 50 % 42-75 Automated blood lymphocytes/100 leukocytes 27 % 12-44 Blood monocytes/100 leukocytes 19 % 0-12 Automated blood eosinophils/100 leukocytes 3 % 0-10 Automated blood basophils/100 leukocytes 0 % 0-10 Blood neutrophils automated count (number/volume) 3.6 10*3 1.8-7.8 Blood lymphocytes automated count (number/volume) 1.9 10*3 1.0-4.0 Blood monocytes automated count (number/volume) 1. 4 10*3 0.0-1.0 Automated eosinophil count 0.2 10*3/uL 0 .0-0.3 Automated blood basophil count (count/volume) 0.0 10*3/uL 0.0-0.1 PT panel in platelet poor plasma by coag ulation assay - 11/24/17 20:35 Prothrombin time (PT) in platelet poor plasma by coagu lation assay 12.5 s 12.2-14.7 INR in platelet poor plasma or blood by coagulation as say 0.9 0.8-1.4 Activated partial thromboplastin time (a PTT) in platelet poor plasma bycoagulation assay - 11/24/17 20:35 Activated partial thromboplastin time (a PTT) in platelet poor plasma bycoagulation assay 28 s 24-35 Blood manual differential performed dete ction - 11/24/17 20:35 Blood monocytes/100 leukocytes 12 % NRG Manual blood segmented neutrophils/100 leukocytes 60 % NRG Blood band neutrophils/100 leukocytes 0 % NRG Manual blood lymphocytes/100 leukocytes 27 % NRG Manual eosinophils/100 leukocytes in nose 1 % NRG Manual blood basophils/100 leukocytes 0 % NRG Blood erythrocyte morphology finding identification [facility] Comprehensive metabolic panel - 11/24/17 20:35 Serum or plasma sodium measurement (moles/volume) 138 mmol/L 135-145 Serum or plasma potassium measurement (moles/volume) 3.7 mmol/L 3.6-5.0 Serum or plasma chloride measurement (moles/volume) 103 mmol/L 98-107 Carbon dioxide 23 mmol/L 21-32 Serum or plasma anion gap determination (moles/volume) 12 mmol/L 5-14 Serum or plasma urea nitrogen measurement (mass/volume ) 23 mg/dL 7-18 Serum or plasma creatinine measurement (mass/volume) 1.65 mg/dL 0.60-1.30 Serum or plasma urea nitrogen/creatinine mass ratio 14 NRG Serum or plasma creatinine measurement w ith calculation of estimated glomerular filtration rate 31 NRG Serum or plasma glucose measurement (mass/volume) 89 mg/dL 70-105 Serum or plasma calcium measurement (mass/volume) 9.2 mg/dL 8.5-10.1 Serum or plasma total bilirubin measurement (mass/volu me) 0.4 mg/dL 0.1-1.0 Serum or plasma alkaline phosphatase olimpia surement (enzymatic activity/volume) 141 U/L 40-136 Serum or plasma aspartate aminotransfera se measurement (enzymatic activity/volume) 29 U/L 5-34 Serum or plasma alanine aminotransferase measurement (enzymatic activity/volume) 23 U/L 0-55 Serum or plasma protein measurement (mass/volume) 7.6 g/dL 6.4-8.2 Serum or plasma albumin measurement (mass/volume) 4.2 g/dL 3.2-4.5 Magnesium - 11/24/17 20:35 Magnesium 2.3 mg/dL 1.8-2.4 Serum or plasma creatine kinase measurem ent (enzymatic activity/volume) - 11/24/17 20:35 Serum or plasma creatine kinase measurem ent (enzymatic activity/volume) 127 U/L 29-168 Serum or plasma creatine kinase MB measu rement (enzymatic activity/volume) - 11/24/17 20:35 Serum or plasma creatine kinase MB measu rement (enzymatic activity/volume) 1.3 ng/mL <6.6 Serum or plasma troponin i.cardiac measu rement (mass/volume) - 11/24/17 20:35 Serum or plasma troponin i.cardiac measurement (mass/v olume) < ng/mL <0.30 Serum or plasma amylase measurement (enz ymatic activity/volume) - 11/24/17 20:35 Serum or plasma amylase measurement (enzymatic activit y/volume) 65 U/L 25-125 Serum or plasma lithium measurement (mol es/volume) - 11/24/17 20:35 BNP level < pg/mL <100.0 Lipase - 11/24/17 20:35 Lipase 32 U/L 8-78 Serum or plasma troponin i.cardiac measu rement (mass/volume) - 11/25/17 01:44 Serum or plasma troponin i.cardiac measurement (mass/v olume) < ng/mL <0.30 Serum or plasma troponin i.cardiac measu rement (mass/volume) - 11/25/17 04:42 Serum or plasma troponin i.cardiac measurement (mass/v olume) < ng/mL <0.30 Complete blood count (CBC) with automate d white blood cell (WBC) differential - 12/07/17 21:15 Blood leukocytes automated count (number/volume) 5.6 10*3/uL 4.3-11.0 Blood erythrocytes automated count (number/volume) 3.75 10*6/uL 4.35-5.85 Venous blood hemoglobin measurement (mass/volume) 11.9 g/dL 11.5-16.0 Blood hematocrit (volume fraction) 37 % 35-52 Automated erythrocyte mean corpuscular volume 98 [ foz_us] 80-99 Automated erythrocyte mean corpuscular h emoglobin (mass per erythrocyte) 32 pg 25-34 Automated erythrocyte mean corpuscular h emoglobin concentration measurement (mass/volume) 32 g/dL 32-36 Automated erythrocyte distribution width ratio 12. 7 % 10.0- 14.5 Automated blood platelet count (count/volume) 221 10*3/uL 130-400 Automated blood platelet mean volume measurement 9.6 [foz_us] 7.4-10.4 Automated blood neutrophils/100 leukocytes 57 % 42-75 Automated blood lymphocytes/100 leukocytes 22 % 12-44 Blood monocytes/100 leukocytes 17 % 0-12 Automated blood eosinophils/100 leukocytes 4 % 0-10 Automated blood basophils/100 leukocytes 1 % 0-10 Blood neutrophils automated count (number/volume) 3.2 10*3 1.8-7.8 Blood lymphocytes automated count (number/volume) 1.2 10*3 1.0-4.0 Blood monocytes automated count (number/volume) 1. 0 10*3 0.0-1.0 Automated eosinophil count 0.2 10*3/uL 0 .0-0.3 Automated blood basophil count (count/volume) 0.0 10*3/uL 0.0-0.1 Comprehensive metabolic panel - 12/07/17 21:15 Serum or plasma sodium measurement (moles/volume) 140 mmol/L 135-145 Serum or plasma potassium measurement (moles/volume) 3.6 mmol/L 3.6-5.0 Serum or plasma chloride measurement (moles/volume) 108 mmol/L 98-107 Carbon dioxide 21 mmol/L 21-32 Serum or plasma anion gap determination (moles/volume) 11 mmol/L 5-14 Serum or plasma urea nitrogen measurement (mass/volume ) 13 mg/dL 7-18 Serum or plasma creatinine measurement (mass/volume) 1.09 mg/dL 0.60-1.30 Serum or plasma urea nitrogen/creatinine mass ratio 12 NRG Serum or plasma creatinine measurement w ith calculation of estimated glomerular filtration rate 50 NRG Serum or plasma glucose measurement (mass/volume) 93 mg/dL 70-105 Serum or plasma calcium measurement (mass/volume) 9.0 mg/dL 8.5-10.1 Serum or plasma total bilirubin measurement (mass/volu me) 0.3 mg/dL 0.1-1.0 Serum or plasma alkaline phosphatase olimpia surement (enzymatic activity/volume) 132 U/L 40-136 Serum or plasma aspartate aminotransfera se measurement (enzymatic activity/volume) 23 U/L 5-34 Serum or plasma alanine aminotransferase measurement (enzymatic activity/volume) 18 U/L 0-55 Serum or plasma protein measurement (mass/volume) 6.8 g/dL 6.4-8.2 Serum or plasma albumin measurement (mass/volume) 3.7 g/dL 3.2-4.5 Serum or plasma lithium measurement (mol es/volume) - 12/07/17 21:15 BNP level 36.0 pg/mL <100.0 Serum or plasma troponin i.cardiac measu rement (mass/volume) - 12/07/17 21:15 Serum or plasma troponin i.cardiac measurement (mass/v olume) < ng/mL <0.30 Complete urinalysis with reflex to cultu re - 12/07/17 22:35 Urine color determination YELLOW NRG Urine clarity determination CLEAR NR G Urine pH measurement by test strip 7 5-9 Specific gravity of urine by test strip 1.010 1.016-1.022 Urine protein assay by test strip, semi-quantitative NEGATIVE NEGATIVE Urine glucose detection by automated test strip NE GATIVE NEGATIVE Erythrocytes detection in urine sediment by light micr oscopy NEGATIVE NEGATIVE Urine ketones detection by automated test strip NE GATIVE NEGATIVE Urine nitrite detection by test strip NEGATIVE NEGATIVE Urine total bilirubin detection by test strip NEGA TIVE NEGATIVE Urine urobilinogen measurement by automated test strip (mass/volume) NORMAL NORMAL Urine leukocyte esterase detection by dipstick NEG ATIVE NEGATIVE Automated urine sediment erythrocyte cou nt by microscopy (number/high power field) NONE NRG Automated urine sediment leukocyte count by microscopy (number/high power field) RARE NRG Bacteria detection in urine sediment by light microsco py NEGATIVE NRG Crystals detection in urine sediment by light microsco py NONE NRG Casts detection in urine sediment by light microscopy NONE NRG Mucus detection in urine sediment by light microscopy NEGATIVE NRG Complete urinalysis with reflex to culture NO NRG Complete blood count (CBC) with automate d white blood cell (WBC) differential - 05/15/18 15:09 Blood leukocytes automated count (number/volume) 6.4 10*3/uL 4.3-11.0 Blood erythrocytes automated count (number/volume) 4.35 10*6/uL 4.35-5.85 Venous blood hemoglobin measurement (mass/volume) 13.4 g/dL 11.5-16.0 Blood hematocrit (volume fraction) 42 % 35-52 Automated erythrocyte mean corpuscular volume 96 [ foz_us] 80-99 Automated erythrocyte mean corpuscular h emoglobin (mass per erythrocyte) 31 pg 25-34 Automated erythrocyte mean corpuscular h emoglobin concentration measurement (mass/volume) 32 g/dL 32-36 Automated erythrocyte distribution width ratio 14. 6 % 10.0- 14.5 Automated blood platelet count (count/volume) 155 10*3/uL 130-400 Automated blood platelet mean volume measurement 11.6 [foz_us] 7.4-10.4 Automated blood neutrophils/100 leukocytes 61 % 42-75 Automated blood lymphocytes/100 leukocytes 21 % 12-44 Blood monocytes/100 leukocytes 16 % 0-12 Automated blood eosinophils/100 leukocytes 2 % 0-10 Automated blood basophils/100 leukocytes 1 % 0-10 Blood neutrophils automated count (number/volume) 3.9 10*3 1.8-7.8 Blood lymphocytes automated count (number/volume) 1.3 10*3 1.0-4.0 Blood monocytes automated count (number/volume) 1. 0 10*3 0.0-1.0 Automated eosinophil count 0.1 10*3/uL 0 .0-0.3 Automated blood basophil count (count/volume) 0.0 10*3/uL 0.0-0.1 Comprehensive metabolic panel - 05/15/18 15:09 Serum or plasma sodium measurement (moles/volume) 137 mmol/L 135-145 Serum or plasma potassium measurement (moles/volume) 3.6 mmol/L 3.6-5.0 Serum or plasma chloride measurement (moles/volume) 101 mmol/L 98-107 Carbon dioxide 21 mmol/L 21-32 Serum or plasma anion gap determination (moles/volume) 15 mmol/L 5-14 Serum or plasma urea nitrogen measurement (mass/volume ) 14 mg/dL 7-18 Serum or plasma creatinine measurement (mass/volume) 1.36 mg/dL 0.60-1.30 Serum or plasma urea nitrogen/creatinine mass ratio 10 NRG Serum or plasma creatinine measurement w ith calculation of estimated glomerular filtration rate 39 NRG Serum or plasma glucose measurement (mass/volume) 102 mg/dL 70-105 Serum or plasma calcium measurement (mass/volume) 10.3 mg/dL 8.5-10.1 Serum or plasma total bilirubin measurement (mass/volu me) 0.6 mg/dL 0.1-1.0 Serum or plasma alkaline phosphatase olimpia surement (enzymatic activity/volume) 82 U/L 40-136 Serum or plasma aspartate aminotransfera se measurement (enzymatic activity/volume) 39 U/L 5-34 Serum or plasma alanine aminotransferase measurement (enzymatic activity/volume) 21 U/L 0-55 Serum or plasma protein measurement (mass/volume) 7.4 g/dL 6.4-8.2 Serum or plasma albumin measurement (mass/volume) 4.0 g/dL 3.2-4.5 CALCIUM CORRECTED 10.3 mg/dL 8.5-10.1 [id number] - 05/15/18 15:09 [id number] 79.6 ug/mL 50.0-100.0 Serum or plasma lithium measurement (mol es/volume) - 05/15/18 15:09 BNP level 34.1 pg/mL <100.0 Complete urinalysis with reflex to cultu re - 05/15/18 15:16 Urine color determination YELLOW NRG Urine clarity determination CLEAR NR G Urine pH measurement by test strip 5 5-9 Specific gravity of urine by test strip 1.020 1.016-1.022 Urine protein assay by test strip, semi-quantitative 1+ NEGATIVE Urine glucose detection by automated test strip NE GATIVE NEGATIVE Erythrocytes detection in urine sediment by light micr oscopy 1+ NEGATIVE Urine ketones detection by automated test strip NE GATIVE NEGATIVE Urine nitrite detection by test strip NEGATIVE NEGATIVE Urine total bilirubin detection by test strip NEGA TIVE NEGATIVE Urine urobilinogen measurement by automated test strip (mass/volume) NORMAL NORMAL Urine leukocyte esterase detection by dipstick 2+ NEGATIVE Automated urine sediment erythrocyte cou nt by microscopy (number/high power field) NONE NRG Automated urine sediment leukocyte count by microscopy (number/high power field) > [HPF] NRG Bacteria detection in urine sediment by light microsco py LARGE NRG Crystals detection in urine sediment by light microsco py NONE NRG Casts detection in urine sediment by light microscopy PRESENT NRG Mucus detection in urine sediment by light microscopy NEGATIVE NRG Complete urinalysis with reflex to culture YES NRG Hyaline casts detection in urine sediment by light justin roscopy 2-5 NRG Bacterial urine culture - 05/15/18 15:16 Bacterial urine culture [id number] NRG COLONY COUNT >100,000/ML NRG FTX;REPORTABLE [facility] SENT ID REPORT 05/16 16:05 NRG FREE TEXT ENTRY 2 SENSITIVITY REPORTED 05/17 09:05 NRG RM Sensitivity Panel - 05/15/18 15:16 Gentamicin susceptibility test by minimum inhibitory c oncentration <= NRG Trimethoprim/sulfamethoxazole susceptibi lity test by minimum inhibitoryconcentration <= NRG Levofloxacin susceptibility test by minimum inhibitory concentration <= NRG Ampicillin susceptibility test by minimum inhibitory c oncentration <= NRG Cefazolin susceptibility test by minimum inhibitory co ncentration 2 NRG Ceftriaxone susceptibility test by minimum inhibitory concentration <= NRG Ciprofloxacin susceptibility test by minimum inhibitor y concentration <= NRG Meropenem susceptibility test by minimum inhibitory co ncentration <= NRG Nitrofurantoin susceptibility test by mi nimum inhibitory concentration <= NRG Amoxicillin and clavulanate potassium susc JUSTIN = NRG Encounters ACCT No. Visit Date/Time Discharge Status Pt. Type Provider Facility Loc./Unit Complaint [id number] 04/27/2018 13:35:00 05/10/2018 11:40 :00 DIS Inpatient LEI VILLEGAS MD [facility] [id number] 06/18/2016 16:30:00 07/02/2016 11:10 :00 DIS Inpatient LEI VILLEGAS MD [facility] [id number] 05/16/2018 15:34:00 Document Registration [id number] 09/20/2014 16:35:00 09/20/2014 23:59: 59 CLS Outpatient VANESSA PERES MD [id number] 05/18/2014 14:27:00 05/18/2014 23:59: 59 CLS Outpatient VANESSA PERES MD [id number] 02/02/2014 11:18:00 02/02/2014 23:59: 59 CLS Outpatient VANESSA PERES MD [id number] 08/21/2013 07:12:00 08/21/2013 23:59: 59 CLS Outpatient JADEN CRAFT [place] K [id number] 05/22/2013 09:45:00 05/22/2013 23:59: 59 CLS Outpatient JADEN CRAFTAUGUSTUS [id number] 05/16/2013 10:13:00 05/16/2013 23:59: 59 CLS Outpatient AUGUSTUS STANLEY DO [id number] 05/02/2013 09:47:00 05/02/2013 23:59: 59 CLS Outpatient VANESSA PERES MD [id number] 03/30/2013 13:07:00 03/30/2013 23:59: 59 CLS Outpatient VANESSA PERES MD [id number] 08/26/2012 10:02:00 08/26/2012 23:59: 59 CLS Outpatient VANESSA PERES MD [id number] 08/16/2012 13:36:00 08/16/2012 23:59: 59 CLS Outpatient [id number] 07/07/2012 14:39:00 07/07/2012 23:59: 59 [place] [id number] 05/03/2012 10:07:00 05/03/2012 23:59:5 9 CLS Outpatient [id number] 11/10/2012 13:55:00 Document Registration [id number] 03/16/2019 13:03:00 23:59:59 CLS Outpatient ANURADHA SOTELO, JOVON Post [facility] RAD LUMP IN LEFT BREAST [id number] 11/18/2018 00:14:00 23:59:59 CLS Preadmit JAZIEL BROOKS [facility] ONC [id number] 11/17/2018 08:31:00 11:07:00 DIS Emergency FAIZA BUTTERFIELD MD [facility] ER FALL/LEFT HIP PAIN [id number] 09/06/2018 13:38:00 00:01:00 DIS Outpatient JAZIEL BROOKS [facility] ONC [id number] 11/09/2018 09:17:00 13:00:00 DIS Outpatient GIAN BROWN MD [facility] ENDO WT LOSS/NAUSEA/RUQ PAIN [id number] 11/07/2018 05:41:00 23:59:59 CLS Outpatient GIAN BROWN MD [facility] PREOP COLONOSCOPY/EGD [id number] 09/07/2018 08:34:00 23:59:59 CLS Outpatient ALLISON OLVERA APRN [facility] RAD BREAST LUMP [id number] 09/01/2018 08:39:00 23:59:59 CLS Outpatient ALLISON OLVERA APRN [facility] RAD BREAST LUMP [id number] 08/25/2018 09:47:00 23:59:59 CLS Outpatient JOVON LING MD [facility] RAD SCREENING [id number] 08/05/2018 11:36:00 23:59:59 CLS Outpatient ALLISON OLVERA APRN [facility] RAD ABNORMAL WEIGHT LOSS [id number] 08/02/2018 14:15:00 23:59:59 CLS Preadmit BELINDA VALDEZ MD [facility] RAD THYROID NODULE [id number] 05/15/2018 14:57:00 17:52:00 DIS Emergency GRETTA SOTELO, MACY Oleary [facility] ER FALL [id number] 12/14/2017 09:34:00 08:56:00 DIS Outpatient LOLLY SUTTON APRN [facility] REHAB GENERAL WEKANESS;ABNOR MAL GAIT;PAIN IN R LEG [id number] 12/16/2017 09:30:00 23:59:59 CLS Outpatient BELINDA VALDEZ MD [facility] RAD THYROID NODULE [id number] 12/07/2017 20:59:00 018 23:26:00 DIS Emergency RYAN VALENZUELA STORE MGR [facility] ER TROUBLE URINATING [id number] 11/25/2017 01:25:00 018 08:55:00 DIS Emergency THERESE FINN MD [facility] ER CP,MARTINEZ,LEFT ARM LEG PAIN [id number] 11/24/2017 21:46:00 018 23:59:00 DIS Inpatient SANDOVAL DO, DADA [facility] ICU CHEST PAIN;HTN;DEMENTIA [id number] 11/12/2017 10:23:00 018 23:59:59 CLS Outpatient JUDY BRUNO HAND PACKAGER [facility] RAD MUTLINODULAR GO ITER [id number] 09/02/2017 09:51:00 018 23:59:59 CLS Outpatient LOLLY SUTTON STORE MGR [facility] RAD R51,M54.5,M79.604 [id number] 08/24/2017 12:29:00 018 15:59:00 DIS Emergency THERESE FINN MD [facility] ER CP,DIZZINESS,SW EATY [id number] 08/04/2017 13:13:00 018 23:59:59 CLS Outpatient LOLLY SUTTON STORE MGR [facility] RAD R92.8 ABN MAMMO [id number] 07/06/2017 12:35:00 018 23:59:59 CLS Outpatient COURTNEY SOTELO, BELINDA Gomez [facility] RAD THYROID NODULES [id number] 06/02/2017 06:03:00 017 09:36:00 DIS Emergency MACY GLYNN MD [facility] ER FALL [id number] 04/22/2017 08:13:00 017 23:59:59 CLS Outpatient LOLLY SUTTON STORE MGR [facility] RAD M81.0 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 WO CURRENT PATHOLOG [id number] 02/01/2017 08:01:00 017 23:59:59 CLS Outpatient LOLLY SUTTON STORE MGR [facility] RAD R92.8 [id number] 12/07/2016 07:22:00 017 23:59:59 CLS Outpatient INDIA BARROW MD [facility] ENDO SCREENING [id number] 12/03/2016 05:56:00 017 23:59:59 CLS Outpatient INDIA BARROW MD [facility] PREOP SCREENING COLONOSCOPY [id number] 10/05/2016 08:06:00 017 23:59:59 CLS Outpatient JOVON LING MD [facility] RAD ABNORMAL MAMMO [id number] 09/30/2016 20:33:00 017 11:20:00 DIS Inpatient DADA SANDOVAL DO, V [facility] 4TH RUQ PAIN;DEHYDRATION;EL ECTROLYTE IMBALANCE; [id number] 08/26/2016 20:20:00 017 23:20:00 DIS Emergency SOLIS PIRES MD [facility] ER NAUSEA [id number] 08/24/2016 14:39:00 017 23:59:59 CLS Outpatient JOVON LING MD [facility] RAD SCREENING [id number] 08/03/2016 08:33:00 017 11:31:00 DIS Emergency FABIOLA HERNANDEZ DO [facility] ER FALL/HEAD PAIN [id number] 06/18/2016 05:48:00 016 23:59:59 CLS Outpatient INDIA BARROW MD [facility] PREOP DIARRHEA [id number] 06/10/2016 20:09:00 016 23:15:00 DIS Emergency RYAN VALENZUELA APRN [facility] ER SOB [id number] 05/01/2016 05:38:00 016 14:13:00 DIS Outpatient INDIA BARROW MD [facility] PREOP SCREENING [id number] 10/13/2015 21:41:00 016 20:10:00 DIS Inpatient LUKE SOTELO, RAE Sims [facility] 4TH CHEST PAIN [id number] 06/07/2015 14:46:00 015 23:59:59 CLS Outpatient BELINDA RIVERA DO S [facility] RAD SCREENING [id number] 09/07/2013 07:47:00 014 23:59:59 CLS Outpatient ROZ SOTELO FACC, TEAGAN WOLFE CC DS [facility] RAD ABD BLOATIN G [id number] 08/02/2013 07:34:00 014 23:59:59 CLS Outpatient INGA DIEGO MD [facility] RAD CAD,GERD,HTN [id number] 07/21/2013 20:15:00 014 11:30:00 DIS Inpatient AUGUSTUS STANLEY DO, V [facility] CSD CHEST PAIN [id number] 05/24/2013 09:43:00 013 23:59:59 CLS Outpatient IMGUEL BELINDA S [facility] RAD PELVIC PAIN, SCREENING [id number] 10/05/2015 03:05:00 Document Registration [id number] 10/17/2012 11:00:00 Document Registration [id number] 07/18/2012 10:37:00 Document Registration [id number] 01/29/2012 08:28:00 Document Registration [id number] 10/21/2011 12:49:00 Document Registration [id number] 06/18/2011 15:26:00 Document Registration [id number] 06/16/2011 08:42:00 Document Registration [id number] 04/06/2011 10:15:00 Document Registration [id number] 10/06/2010 12:25:00 Document Registration [id number] 05/07/2010 08:07:00 Document Registration [id number] 10/24/2017 00:06:00 Document Registration
--- NOTE | 2019-11-10 09:25 | Diagnostic Imaging Report ---
Indication: Right shoulder pain Portable chest 9:17 AM Heart size and pulmonary vascularity are normal. Lungs are clear. There are no effusions or pneumothoraces. IMPRESSION: Negative chest Dictated by: Dictated on workstation # [id number]
--- NOTE | 2019-11-10 09:29 | Diagnostic Imaging Report ---
INDICATION: Fall. Pain. COMPARISON: None. FINDINGS: There is abnormal curvilinear lucency involving the superior margins of the greater tubercle of the right humerus. Findings are consistent with fracture. There is no displacement of fracture fragments. Joint spaces are otherwise maintained. No other acute appearing osseous abnormalities are seen. Included portions of right hemithorax are clear. IMPRESSION:. Acute nondisplaced fracture involving the greater tubercle of the proximal right humerus. Dictated by: Dictated on workstation # [id number]
--- NOTE | 2019-11-10 09:37 | Diagnostic Imaging Report ---
PROCEDURE: CT head and CT cervical spine without contrast. TECHNIQUE: Multiple contiguous axial images were obtained through the brain and cervical spine without the use of intravenous contrast. Sagittal and coronal reformations through the cervical spine were then performed. Auto Exposure Controls were utilized during the CT exam to meet ALARA standards for radiation dose reduction. INDICATION: Head and neck pain after fall. FINDINGS: There is prominence of ventricles and sulci. There is mild chronic microvascular ischemic disease. There is no hydrocephalus. There is no midline shift. There is no mass, hemorrhage or extra-axial fluid collection. Calvarium is intact. Sinuses and mastoid air cells are clear. There is straightening of the normal cervical lordosis. There is multilevel degenerative disc disease. There is some posterior facet arthropathy. There is no fracture or traumatic subluxation. Odontoid is intact and lateral masses are well aligned. Lung apices are clear. Prevertebral soft tissues are within normal limits. IMPRESSION: Atrophy and some chronic microvascular ischemic disease, however no acute intracranial abnormality. Cervical spondylosis and degenerative disc disease without acute fracture or traumatic subluxation. Dictated by: Dictated on workstation # [id number]
--- NOTE | 2019-11-10 09:47 | NUR ---
Pt report called to Aline from [facility]. Aline verbalized understanding of discharge instructions et voices no c/o or concerns. This RN request pt transport back to facility.
[2019-11-10 10:10] VITALS: BP 119/85
== END 2019-11-10 10:10 | disposition home or self-care (01) ==
LOC: EDUNIT# 08:46 → ER 08:47
DX: S42.294A Other nondisplaced fracture of upper end of right humerus, initial encounter for closed fracture (principal); I10 Essential (primary) hypertension; E78.00 Pure hypercholesterolemia, unspecified; I25.10 Atherosclerotic heart disease of native coronary artery without angina pectoris; G40.909 Epilepsy, unspecified, not intractable, without status epilepticus; F31.9 Bipolar disorder, unspecified; K21.9 Gastro-esophageal reflux disease without esophagitis; R40.2142 Coma scale, eyes open, spontaneous, at arrival to emergency department; R40.2242 Coma scale, best verbal response, confused conversation, at arrival to emergency department; R40.2362 Coma scale, best motor response, obeys commands, at arrival to emergency department; F17.210 Nicotine dependence, cigarettes, uncomplicated; Z88.0 Allergy status to penicillin; Z87.820 Personal history of traumatic brain injury; Z91.040 Latex allergy status; Z79.52 Long term (current) use of systemic steroids; Z80.0 Family history of malignant neoplasm of digestive organs; Z82.49 Family history of ischemic heart disease and other diseases of the circulatory system; W19.XXXA Unspecified fall, initial encounter; Y92.129 Unspecified place in nursing home as the place of occurrence of the external cause
CPT/HCPCS: 70450; 71045; 72125; 73030

== ENCOUNTER 2019-11-14 12:40 | Inpatient (IN) | payer MEDICARE, BC, MEDICAID ==
[~2019-11-14] VITALS: Ht 169 cm; Wt 84.3 kg
[2019-11-14] VITALS (11 sets, daily range): BP systolic 105–145; BP diastolic 70–96
--- NOTE | 2019-11-14 12:57 | ED General ---
General Stated Complaint: SEIZURE Source of Information: Patient Exam Limitations: No Limitations History of Present Illness Date Seen by Provider: November 14, 2019 Time Seen by Provider: 12:54 Initial Comments To ER by EMS from [facility] where she resides with reports of a "10 minute seizure" while she was on the toilet. However family states this is her normal. She has a history of seizure disorder secondary to traumatic brain injury. She is on Depakote. Allegedly she has been a little high on the Depakote level so yesterday's dose and today's dose was held. Incidentally, on arrival to ER she's found to be febrile at 101 and hypoxic at 88% room air. Does not typically need oxygen at home. She was here just a few days ago after a fall. Timing/Duration: 1-2 Days Severity: Moderate Associated Systoms: Fever/Chills, Seizure Allergies and Home Medications Allergies Coded Allergies: Penicillins (Verified Allergy, Mild, 07/22/13) latex (Verified Allergy, Mild, 07/22/13) Home Medications Aspirin 81 Mg Tablet.dr, 81 MG PO DAILY, (Reported) Atorvastatin Calcium 80 Mg Tablet, 80 MG PO DAILY, (Reported) Divalproex Sodium 250 Mg Tablet.dr, 250 MG PO DAILY, (Reported) Divalproex Sodium 500 Mg Tablet.dr, 500 MG PO DAILY, (Reported) Duloxetine HCl 60 Mg Capsule.dr, 60 MG PO DAILY, (Reported) Fluconazole 200 Mg Tablet, 200 MG PO Q48H, (Reported) TAKE ON ODD DAYS RELATED TO BACTERIAL INFECTION Furosemide 40 Mg Tablet, 40 MG PO DAILY, (Reported) Hydrocodone Bit/Acetaminophen 1 Each Tablet, 1 TAB PO Q4H PRN for MODERATE PAIN Prescribed by: DADA SANDOVAL on 10/02/16 1120 Lactulose 10 Gm/15 Ml Solution, 20 GM PO DAILY PRN for CONSTIPATION-1ST LINE, (Reported) Levetiracetam 1,000 Mg Tablet, 1,000 MG PO BID, (Reported) Melatonin 3 Mg Tablet, 3 MG PO HS, (Reported) Meloxicam 15 Mg Tablet, 15 MG PO DAILY, (Reported) Oxybutynin Chloride 15 Mg Tab.er.24, 15 MG PO HS, (Reported) Pantoprazole Sodium 40 Mg Tablet.dr, 40 MG PO DAILY, (Reported) Polyethylene Glycol 3350 17 Gm Powd.pack, 17 GM PO DAILY PRN for CONSTIPATION- 2ND LINE, (Reported) Potassium Chloride 10 Meq Tab.er.prt, 10 MEQ PO DAILY, (Reported) Prednisolone Acetate 5 Ml Drops.susp, 1 DROP OU Q48H, (Reported) Prednisone 10 Mg Tab, 10 MG PO DAILY, (Reported) Quetiapine Fumarate 50 Mg Tablet, 50 MG PO HS, (Reported) Spironolactone 100 Mg Tablet, 100 MG PO DAILY, (Reported) Topiramate 25 Mg Tablet, 25 MG PO BID, (Reported) Patient Home Medication List Home Medication List Reviewed: Yes Review of Systems Review of Systems Constitutional: see HPI EENTM: see HPI Respiratory: no symptoms reported Cardiovascular: no symptoms reported Genitourinary: no symptoms reported Musculoskeletal: no symptoms reported Skin: no symptoms reported Psychiatric/Neurological: No Symptoms Reported Past Ofyohmc-Lhnovp-Wlapkw Hx Patient Social History Type Used: Cigarettes Former Smoker, Quit: Jul 05, 2013 2nd Hand Smoke Exposure: Yes Recent Hopitalizations: No Immunizations Up To Date Tetanus Booster (TDap): Unknown Date of Influenza Vaccine: Apr 11, 2018 Seasonal Allergies Seasonal Allergies: No Past Medical History Surgeries: Yes Gallbladder, Lumpectomy Respiratory: Yes (BRONCHITIS) Chronic Bronchitis Currently Using CPAP: No Cardiac: Yes Chronic Edema/Swelling, Coronary Artery Disease, High Cholesterol, Hypertension, Rheumatic Fever Neurological: Yes (ENCEPHALITIS, restless leg syndrome) Concussion, Dementia, Seizure Disorder, Traumatic Brain Injury, Vertigo Reproductive Disorders: No Female Reproductive Disorders: Denies Sexually Transmitted Disease: No HIV/AIDS: No Genitourinary: Yes (CHRONIC RENAL INSUFFICIENCY; BLADDER CONTROL ISSUES?) Gastrointestinal: Yes ("STOMACH DISCOMFORT"--POST-CHOLECYSTECTOMY SYNDROME) Gastroesophageal Reflux, Chronic Constipation, Chronic Diarrhea, Gall Bladder Disease, Irritable Bowel Musculoskeletal: Yes Arthritis Endocrine: No HEENT: Yes (READING GLASSES) Loss of Vision: Bilateral Hearing Impairment: Denies Cancer: No Psychosocial: Yes Sleep Difficulties, Bipolar Integumentary: Yes Psoriasis Blood Disorders: No Adverse Reaction/Blood Tranf: No Family Medical History Cancer 03 FATHER (PANCREATIC CANCER) 09 BROTHER ( AT AGE 10) Family history: Cardiovascular disease 03 MOTHER Family history: Diabetes mellitus 03 MOTHER Heart disease 03 MOTHER No Pertinent Family Hx Physical Exam Vital Signs Vital Signs - First Documented 11/14/19 12:40 Temp 38.4 Pulse 127 Resp 20 B/P (MAP) 127/76 (93) Capillary Refill : Height, Weight, BMI Height: 5'4.00" Weight: 166lbs. 0.0oz. [id number]; 28.00 BMI Method:Stated General Appearance: No Apparent Distress, WD/WN, Other (alert, oriented, knows the year, knows where she is at and knows her name. States she feels "okay". She is febrile at 101. Blood pressure 127/76, heart rate 118, oxygen 88% room air, 90% on 2 L and 92% on 4 L) Neck: Full Range of Motion, Normal Inspection Respiratory: Normal Breath Sounds, No Accessory Muscle Use, No Respiratory Distress Cardiovascular: Normal Peripheral Pulses, Tachycardia Gastrointestinal: Normal Bowel Sounds, Non Tender, Soft Extremity: Normal Capillary Refill, Normal Inspection Neurologic/Psychiatric: Alert, Oriented x3, No Motor/Sensory Deficits Skin: Normal Color, Warm/Dry Focused Exam Lactate Level 11/14/19 12:52: Lactic Acid Level 5.98*H Lactic Acid Level Laboratory Tests Test 11/14/19 12:52 Lactic Acid Level 5.98 MMOL/L (0.50-2.00) *H Progress/Results/Core Measures Suspected Sepsis SIRS Temperature: Pulse: Respiratory Rate: Laboratory Tests 11/14/19 12:52: White Blood Count 11.6H Blood Pressure / Mean: 11/14/19 12:52: Lactic Acid Level 5.98*H Laboratory Tests 11/14/19 12:52: Creatinine 2.63H, Platelet Count 140, Total Bilirubin 0.7 Results/Orders Lab Results Laboratory Tests Test 11/14/19 12:52 11/14/19 14:21 Range/Units White Blood Count 11.6 H 4.3-11.0 10^3/uL Red Blood Count 4.34 L 4.35-5.85 10^6/uL Hemoglobin 15.2 11.5-16.0 G/DL Hematocrit 43 35-52 % Mean Corpuscular Volume 99 80-99 FL Mean Corpuscular Hemoglobin 35 H 25-34 PG Mean Corpuscular Hemoglobin Concent 35 32-36 G/DL Red Cell Distribution Width 13.9 10.0-14.5 % Platelet Count 140 130-400 10^3/uL Mean Platelet Volume 11.1 H 7.4-10.4 FL Neutrophils (%) (Auto) 65 42-75 % Lymphocytes (%) (Auto) 14 12-44 % Monocytes (%) (Auto) 20 H 0-12 % Eosinophils (%) (Auto) 0 0-10 % Basophils (%) (Auto) 0 0-10 % Neutrophils # (Auto) 7.5 1.8-7.8 X 10^3 Lymphocytes # (Auto) 1.6 1.0-4.0 X 10^3 Monocytes # (Auto) 2.3 H 0.0-1.0 X 10^3 Eosinophils # (Auto) 0.1 0.0-0.3 10^3/uL Basophils # (Auto) 0.1 0.0-0.1 10^3/uL Neutrophils % (Manual) 62 % Lymphocytes % (Manual) 12 % Monocytes % (Manual) 22 % Eosinophils % (Manual) 1 % Basophils % (Manual) 0 % Band Neutrophils 3 % Blood Morphology Comment NORMAL Sodium Level 137 135-145 MMOL/L Potassium Level 3.8 3.6-5.0 MMOL/L Chloride Level 95 L 98-107 MMOL/L Carbon Dioxide Level 24 21-32 MMOL/L Anion Gap 18 H 5-14 MMOL/L Blood Urea Nitrogen 39 H 7-18 MG/DL Creatinine 2.63 H 0.60-1.30 MG/DL Estimat Glomerular Filtration Rate 18 BUN/Creatinine Ratio 15 Glucose Level 83 70-105 MG/DL Lactic Acid Level 5.98 *H 0.50-2.00 MMOL/L Calcium Level 9.7 8.5-10.1 MG/DL Corrected Calcium 9.9 8.5-10.1 MG/DL Total Bilirubin 0.7 0.1-1.0 MG/DL Aspartate Amino Transf (AST/SGOT) 194 H 5-34 U/L Alanine Aminotransferase (ALT/SGPT) 58 H 0-55 U/L Alkaline Phosphatase 112 40-136 U/L Total Protein 7.2 6.4-8.2 GM/DL Albumin 3.7 3.2-4.5 GM/DL Valproic Acid (Depakene) Level 124.6 *H 50.0-100.0 UG/ML My Orders Orders - RYAN VALENZUELA LIBRARY CIRCULATION ASSISTANT Blood Culture (11/14/19 12:50) Ua Culture If Indicated (11/14/19 12:50) Chest 1 View, Ap/Pa Only (11/14/19 12:50) Ed Iv/Invasive Line Start (11/14/19 12:50) Valproic Acid (11/14/19 12:50) Lactic Acid Analyzer (11/14/19 12:50) Influenza A And B Antigens (11/14/19 12:50) Acetaminophen Tablet (Tylenol Tablet) (11/14/19 13:00) Ibuprofen Tablet (Motrin Tablet) (11/14/19 13:00) Cbc With Automated Diff (11/14/19 12:50) Comprehensive Metabolic Panel (11/14/19 12:50) Manual Differential (11/14/19 12:52) Ns Iv 1000 Ml (Sodium Chloride 0.9%) (11/14/19 13:30) Cefepime Injection (Maxipime Injection) (11/14/19 14:15) Coronavirus Sars-Cov-2 So 2018 (11/14/19 14:09) Medications Given in ED Current Medications Medications Dose Ordered Sig/Cory Route Start Time Stop Time Status Last Admin Dose Admin Acetaminophen 1,000 mg ONCE ONCE PO 11/14/19 13:00 11/14/19 13:01 DC 11/14/19 13:32 1,000 MG Ibuprofen 800 mg ONCE ONCE PO 11/14/19 13:00 11/14/19 13:01 DC 11/14/19 13:32 800 MG Vital Signs/I&O 11/14/19 12:40 Temp 38.4 Pulse 127 Resp 20 B/P (MAP) 127/76 (93) Capillary Refill : Diagnostic Imaging Diagonstic Imaging: Xray Plain Films/CT/US/NM/MRI: chest Comments NAME: APLPE VILLELA [facility] REC#: [id number] PT STATUS: REG ER : 1950 PHYSICIAN: RYAN VALENZUELA APRN ADMIT DATE: 11/14/19/ER Draft Date of Exam:11/14/19 CHEST 1 VIEW, AP/PA ONLY INDICATION: Seizure. TIME OF EXAM: 1:44 PM. COMPARISON: Correlation is made with the prior chest from 11/10/2019. FINDINGS: The heart size is stable. There is some minimal density in the medial right base which may represent some minimal infiltrate or atelectasis. Otherwise, the lungs are clear. The pulmonary vascularity is normal. No effusion or pneumothorax is identified. IMPRESSION: Mild right basilar infiltrate or atelectasis. Dictated on workstation # [id number] Dict: 11/14/19 1346 Trans: 11/14/19 1347 [id number] Interpreted by: VANDANA RAMON MD Electronically signed by: Departure Communication (Admissions) Time/Spoke to Admitting Phy: 14:[address] Guerrero, will admit. 1356-she is receiving the 30 Ml/kg bolus based on lactic acid greater than 4. She is not hypotensive. Impression Primary Impression: Depakote toxicity Additional Impressions: Severe sepsis Right lower lobe pneumonia Disposition: ADMITTED INPATIENT Condition: Stable Admissions Decision to Admit Reason: Admit from ER (General) Decision to Admit/Date: November 14, 2019 Time/Decision to Admit Time: 13:57 Departure-Patient Inst. Referrals: JOVON LING MD (PCP/Family) Primary Care Physician Copy Copies To 1: JOVON LING MD, PETER J LIBRARY CIRCULATION ASSISTANT November 14, 2019 12:57
[2019-11-14] MEDS ORDERED: ACETAMINOPHEN 500 MG TAB (TYLENOL) PO ONE (13:00)
[2019-11-14] MEDS ORDERED: IBUPROFEN 800 MG (MOTRIN) TAB PO ONE (13:00)
[2019-11-14 13:07] LABS: BASOPHILS # (AUTO) 0.1 10^3/uL (0.0-0.1); BASOPHILS % (AUTO) 0 % (0-10); EOSINOPHILS # (AUTO) 0.1 10^3/uL (0.0-0.3); EOSINOPHILS % (AUTO) 0 % (0-10); HEMATOCRIT 43 % (35-52); HEMOGLOBIN 15.2 G/DL (11.5-16.0); LYMPHOCYTES # (AUTO) 1.6 X 10^3 (1.0-4.0); LYMPHOCYTES % (AUTO) 14 % (12-44); MEAN CORPUSCULAR HEMOGLOBIN 35 PG (25-34); MEAN CORPUSCULAR HGB CONC 35 G/DL (32-36); MEAN CORPUSCULAR VOLUME 99 FL (80-99); MEAN PLATELET VOLUME 11.1 FL (7.4-10.4); MONOCYTES # (AUTO) 2.3 X 10^3 (0.0-1.0); MONOCYTES % (AUTO) 20 % (0-12); NEUTROPHILS # (AUTO) 7.5 X 10^3 (1.8-7.8); NEUTROPHILS % (AUTO) 65 % (42-75); PLATELET COUNT 140 10^3/uL (130-400); RED CELL DISTRIBUTION WIDTH 13.9 % (10.0-14.5); WHITE BLOOD COUNT 11.6 10^3/uL (4.3-11.0)
[2019-11-14 13:16] LABS: ALBUMIN 3.7 GM/DL (3.2-4.5); POTASSIUM 3.8 MMOL/L (3.6-5.0)
[2019-11-14 13:17] LABS: CALCIUM 9.7 MG/DL (8.5-10.1)
[2019-11-14 13:19] LABS: TOTAL PROTEIN 7.2 GM/DL (6.4-8.2)
[2019-11-14 13:21] LABS: BILIRUBIN,TOTAL 0.7 MG/DL (0.1-1.0)
[2019-11-14 13:22] LABS: CREATININE SERUM 2.63 MG/DL (0.60-1.30)
--- NOTE | 2019-11-14 13:22 | NUR ---
LACTIC ACID 5.8 REPORTED TO Jason HALL
[2019-11-14] MEDS ORDERED: NS IV 1000 ML 1,000 ML IV SCH (13:30)
[2019-11-14 13:33] LABS: VALPROIC ACID 124.6 UG/ML (50.0-100.0)
--- NOTE | 2019-11-14 13:33 | NUR ---
VALPORIC ACID 124.6 REPORTED TO Jason HALL
[2019-11-14 13:38] LABS: BAND NEUTROPHILS 3 %; BASOPHILS % (MANUAL) 0 %; EOSINOPHILS % (MANUAL) 1 %; LYMPHOCYTES % (MANUAL) 12 %; MONOCYTES % (MANUAL) 22 %; NEUTROPHILS % (MANUAL) 62 %; RBC MORPH NORMAL
--- NOTE | 2019-11-14 13:47 | Diagnostic Imaging Report ---
INDICATION: Seizure. TIME OF EXAM: 1:44 PM. COMPARISON: Correlation is made with the prior chest from 11/10/2019. FINDINGS: The heart size is stable. There is some minimal density in the medial right base which may represent some minimal infiltrate or atelectasis. Otherwise, the lungs are clear. The pulmonary vascularity is normal. No effusion or pneumothorax is identified. IMPRESSION: Mild right basilar infiltrate or atelectasis. Dictated by: Dictated on workstation # [id number]
[2019-11-14] MEDS ORDERED: CEFEPIME INJECTION 2,000 MG in WATER (STERILE) FOR INJECTION 20 ML IV ONE (14:15)
--- NOTE | 2019-11-14 14:16 | NUR ---
COVID SWAB BY Jason HALL
--- OUTSIDE RECORDS SUMMARY | 2019-11-14 14:44 | XMS REPORT | Encounter Summary ---
Author Author [facility] Organization [facility] Address Unknown Phone Unavailable Care Team Providers Care Office Machine Technician Name Role Phone PCP Unavailable Encounter Details Care Team Description Date Type Department Avinash Mahmood MD [address] [address] [phone] 04/18/2007 Hist-Visit [facility] Social History Date [...]
--- OUTSIDE RECORDS SUMMARY | 2019-11-14 14:44 | XMS REPORT | Encounter Summary ---
Author Author [facility] Organization [facility] Address Unknown Phone Unavailable Care Team Providers Care Service Desk Agent Name Role Phone Addy Farr PCP Encounter Details Care Team Description Date [place] [address] [place] [address] 11/09/2017 Documentation Eric [facility] [address] [place], [place] [id number] Social History Date Tobacco Use Types Packs/Day [...]
--- OUTSIDE RECORDS SUMMARY | 2019-11-14 14:44 | XMS REPORT | Encounter Summary ---
Author Author [facility] Organization [facility] Address Unknown Phone Unavailable Care Team Providers Care Deicer Tester Name Role Phone Addy Farr PCP Reason for Referral * Consultation (Routine) Referred By Contact Referred To Contact Status Reason Specialty Diagnoses / Procedures Addy Farr MD [address] [place] [address] [place] [address] [place] [address] Closed Specialty Services Endocrinology Diagnoses Required Thyroid function test abnormal Nontoxic multinodular goiter Encounter Details Care Team Description Date [place] [address] [place], [place] [id number] Thyroid function test abnormal (Primary Dx); Nontoxic multinodular goiter 09/21/2017 Transcribe Eric aceves [facility] [address] [place], [place] [id number] Social History Date Tobacco Use Types Packs/Day [...]
--- OUTSIDE RECORDS SUMMARY | 2019-11-14 14:44 | XMS REPORT | Clinical Summary ---
Author Author [facility] Organization [facility] Address Unknown Phone Unavailable Care Team Providers Care Assembly Room Supervisor Name Role Phone Addy Farr PCP Allergies [...] Dates Group Medicare MEDICARE MEDICARE xxxxxxxxxx 2000-P [place] PART A B resent [facility] xxxxxxxxx 1-P [employer] resent Advance Directives For more information, please contact: [phone] Patient Administration Professional Explanation Type Date Recorded Advance Directives and Living Will Power of Pst Supervisor
--- OUTSIDE RECORDS SUMMARY | 2019-11-14 14:44 | XMS REPORT | Encounter Summary ---
Author Author [facility] Organization [facility] Address Unknown Phone Unavailable Care Team Providers Care Fingernail Sculptor Name Role Phone PCP Unavailable Encounter Details Care Team Description Date Type Department Mukesh Liang MD [address] [facility] [address] [place] [address] [phone] 12/22/2016 Documentation [facility] [address] [facility] [address] [place] [address] Social History Date Tobacco Use Types Packs/Day [...]
--- OUTSIDE RECORDS SUMMARY | 2019-11-14 14:44 | XMS REPORT | Encounter Summary ---
Author Author [facility] Organization [facility] Address Unknown Phone Unavailable Care Team Providers Care Leather Belt Loop Cutter Name Role Phone Addy Farr PCP Encounter Details Care Team Description Date [place] [address] [place] [address] 11/09/2017 Documentation [facility] [address] [place], [place] [id number] Social History Date Tobacco Use Types Packs/Day [...]
--- OUTSIDE RECORDS SUMMARY | 2019-11-14 14:44 | XMS REPORT | Encounter Summary ---
Author Author [facility] Organization [facility] Address Unknown Phone Unavailable Care Team Providers Care Loan Documentation Specialist Name Role Phone Addy Farr PCP Encounter Details Care Team Description [place] [address] [place] [address] 11/09/2017 Documentation [facility] [address] [place], [place] [id number] Social History Date Tobacco Use Types Packs/Day [...]
--- OUTSIDE RECORDS SUMMARY | 2019-11-14 14:45 | XMS REPORT | Encounter Summary ---
Author Author [facility] Organization [facility] Address Unknown Phone Unavailable Care Team Providers Care Tonal Regulator Name Role Phone PCP Unavailable Encounter Details Care Team Description Date Type Department Elizabeth Enriquez MD [address] [facility] [address] [place] [address] [phone] DIZZINESS AND GIDDINESS 02/15/2004 [facility] al Encounter [address] [place] [address] Social History Date Tobacco Use Types Packs/Day Years Used Never Assessed Sex Assigned at Date Recorded Not on file Industry Job Start Date Occupation Not on file Not on file Not on file Travel End Travel History Travel Start No recent travel history available. documented as of this encounter Miscellaneous Notes * Operative Note - Eliseo Tai, - 09/02/2013 5:16 PM INSTRUMENTATION CONTROLS ENGINEER Report Name: MARCELA GIBBS MRN/Unit #: [id number] Attending Physician: ELIZABETH ENRIQUEZ MD Date of [...] electronystagmogram. Eliseo Tai D.O. Dictated By: cc: RUMENTATION CONTROLS ENGINEER documented in this encounter Plan of Treatment Not on filedocumented as of this encounter Visit Diagnoses Diagnosis Dizziness and giddiness documented in this encounter
--- OUTSIDE RECORDS SUMMARY | 2019-11-14 14:45 | XMS REPORT | Clinical Summary ---
Author Author [facility] Organization [facility] Address Unknown Phone Unavailable Care Team Providers Care Maintenance Supervisor 2Nd Shift Name Role Phone Andres Jo MD 100 [...] you expected, contact Release of Information in [facility] Information Management department at [phone] for further assistan ce in locating additional records.[facility] Allergies Comments Active Allergy Reactions Severity [...] Comments Vital Sign 135/52 05/19/2016 8:00 AM SOLAR ENERGY CONSULTANT AND DESIGNER Blood Pressure 56 05/18/2016 4:43 PM SOLAR ENERGY CONSULTANT AND DESIGNER Pulse 36.4 C (97.6 F) 05/19/2016 8:00 AM SOLAR ENERGY CONSULTANT AND DESIGNER Temperature - - Respiratory Rate 97% 05/19/2016 8:00 AM SOLAR ENERGY CONSULTANT AND DESIGNER Oxygen Saturation - - Inhaled Oxygen Concentration 95.3 kg (210 lb) 05/18/2016 4:43 PM SOLAR ENERGY CONSULTANT AND DESIGNER Weight 162.6 cm (5' 4") 05/18/2016 4:43 PM SOLAR ENERGY CONSULTANT AND DESIGNER Height 36.05 05/18/2016 4:43 PM SOLAR ENERGY CONSULTANT AND DESIGNER Body Mass Index Plan of Treatment Health [...] COMMUNITY Present [place]AN [place] Advance Directives Patient Aqua Ammonia Operator Explanation Type Date Recorded Advance 05/18/2016 10:08 PM Directive/DPOA Date Inactivated Comments Code Status Date Activated 05/19/2016 2:21 PM Full Code 05/19/2016 3:40 AM Provider has discussed Code Status No, more discussi on w/Patient or Family? needed
--- OUTSIDE RECORDS SUMMARY | 2019-11-14 14:45 | XMS REPORT ---
Author Author Marcela PERES Organization [facility] Address [address] [place] [address] Care Team Providers Care Outreach And Education Social Worker Name Role Phone VANESSA PERES Unavailable PROBLEMS Type Condition ICD9-CM Code [id number] Code Onset Dates Condition S tatus SNOMED Code Problem Loss of weight 783.21 Active 71852 5001 Problem Other malaise and fatigue 780.79 Acti ve 857223870 Problem Pain in soft tissues of limb 729.5 A ctive 89194608 Problem Other specified cardiac dysrhythmias 427.89 Active 682818518 Problem Other and unspecified hyperlipidemia 272.4 Active 18912727 Problem Muscle weakness (generalized) 728.87 Active 80217162 Problem Cervicalgia 723.1 Active 29271188 Problem Unspecified arthropathy, site 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.90 Active 991506850 Problem Unspecified symptom associated with female genital organs 625.9 Active 402599259 ALLERGIES No Information ENCOUNTERS Encounter Location Date Diagnosis [facility] [address] [facility] [id number] [address] [place] [address] [id number] Sep, Dental caries K02.9 [facility] [address] [facility] [id number] [address] [place] [address] [id number] Sep, [facility] [address] [facility] [id number] [address] [place] [address] [id number] Sep, Dental examination Z01.20 [facility] [address] [facility] [id number] [address] [place] [address] [id number] May, Dental examination Z01.20 [facility] [address] [facility] [id number] [address] [place] [address] [id number] Apr, Dental examination Z01.20 [facility] [address] [facility] [id number] [address] [place] [address] Dec, [facility] [address] [id number] [address] [place] [address] [id number] Feb, Dental examination Z01.20 [facility] [address] [id number] [address] [place] [address] [id number] Jan, Dental caries K02.9 [facility] [address] [id number] [address] [place] [address] [id number] Dec, Dental examination Z01.20 [facility] [address] [id number] [address] [place] [address] [id number] Oct, Dental examination Z01.20 [facility] [address] [id number] [address] [place] [address] [id number] Aug, Encounter for dental examina tion Z01.20 [facility] [address] [id number] [address] [place] [address] Aug, [facility] [address] [facility] [id number] [address] [place] [address] Mar, [facility] [address] [id number] [address] [place] [address] [id number] Mar, Dental examination V72.2 [facility] [address] [facility] [id number] [address] [place] [address] Feb, Unspecified arthropathy, sit e 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.90 ; Psychotic disorder 298.[address] [facility] [address] [facility] [id number] [address] [place] [address] Jan, [facility] [address] [facility] [id number] [address] [place] [phone] Dec, Dizziness 780.4 and Pain in soft tissues of limb 729.5 [facility] [address] [facility] [id number] [address] [place] [address] Dec, [facility] [address] [facility] [id number] [address] [place] [address] Oct, [facility] [address] [id number] [address] [place] [address], [place] [address] 13 Oct, 2014 [facility] [address] [id number] [address] [place] [address], [place] [address] 19 Sep, 2014 [facility] [address] [id number] [address] [place] [address], [place] [address] 19 Sep, 2014 [facility] [address] [id number] [address] [place] [address], [place] [address] 11 Sep, 2014 [facility] [address] [id number] [address] [place] [address], [place] [address] 11 Sep, 2014 [facility] [address] [id number] [address] [place] [address], [place] [address] 13 Aug, 2014 [facility] [address] [id number] [address] [place] [address], [place] [address] Aug, [facility] [address] [id number] [address] [place] [address], [place] [address] 17 May, 2014 [facility] [address] [id number] [address] [place] [address], [place] [address] 17 May, 2014 [facility] [address] [id number] [address] [place] [address], [place] [address] 17 May, 2014 [facility] [address] [id number] [address] [place] [address], [place] [address] 17 May, 2014 [facility] [address] [id number] [address] [place] [address], [place] [address] 17 May, 2014 [facility] [address] [id number] [address] [place] [address], [place] [address] 17 May, 2014 [facility] [address] [id number] [address] [place] [address], [place] [address] 17 May, 2014 [facility] [address] [id number] [address] [place] [address], [place] [address] 14 May, 2014 [facility] [address] [id number] [address] [place] [address], [place] [address] May, [facility] [address] [id number] [address] [place] [address], [place] [address] May, [facility] [address] [id number] [address] [place] [address], [place] [address] May, [facility] [address] [id number] [address] [place] [address], [place] [address] Apr, [facility] [address] [id number] [address] [place] [address], [place] [address] Apr, [facility] [address] [id number] [address] [place] [address], [place] [address] Feb, [facility] [address] [id number] [address] [place] [address], [place] [address] Feb, [facility] [address] [id number] [address] [place] [address], [place] [address] Feb, [facility] [address] [id number] [address] [place] [address], [place] [address] Feb, [facility] [address] [id number] [address] [place] [address], [place] [address] Jan, [facility] [address] [id number] [address] [place] [address], [place] [address] Jan, [facility] [address] [id number] [address] [place] [address], [place] [address] Jan, [facility] [address] [id number] [address] [place] [address], [place] [address] Jan, [facility] [address] [id number] [address] [place] [address], [place] [address] Dec, [facility] [address] [id number] [address] [place] [address], [place] [address] Dec, [facility] [address] [id number] [address] [place] [address], [place] [address] Dec, [facility] [address] [id number] [address] [place] [address], [place] [address] Dec, [facility] [address] [id number] [address] [place] [address], [place] [address] Oct, [facility] [address] [id number] [address] [place] [address], [place] [address] Oct, [facility] [address] [id number] [address] [place] [address], [place] [address] Oct, [facility] [address] [id number] [address] [place] [address], [place] [address] Oct, [facility] [address] [id number] [address] [place] [address], [place] [address] Oct, [facility] [address] [id number] [address] [place] [address], [place] [address] Oct, [facility] [address] [id number] [address] [place] [address], [place] [address] Oct, [facility] [address] [id number] [address] [place] [address], [place] [address] Jul, [facility] [address] [id number] [address] [place] [address], [place] [address] Jul, [facility] [address] [id number] [address] [place] [address], [place] [address] Jun, [facility] [address] [id number] [address] [place] [address], [place] [address] Jun, [facility] [address] [id number] [address] [place] [address], [place] [address] Jun, [facility] [address] [id number] [address] [place] [address], [place] [address] Jun, [facility] [address] [id number] [address] [place] [address], [place] [address] May, [facility] [address] [id number] [address] [place] [address], [place] [address] May, [facility] [address] [id number] [address] [place] [address], [place] [address] May, [facility] [address] [id number] [address] [place] [address], [place] [address] May, [facility] [address] [id number] [address] [place] [address], [place] [address] Apr, [facility] [address] [id number] [address] [place] [address], [place] [address] Apr, [facility] [address] [id number] [address] [place] [address], [place] [address] Apr, [facility] [address] [id number] [address] [place] [address], [place] [address] Apr, [facility] [address] [id number] [address] [place] [address], [place] [address] Apr, [facility] [address] [id number] [address] [place] [address], [place] [address] Mar, [facility] [address] [id number] [address] [place] [address], [place] [address] Mar, [facility] [address] [id number] [address] [place] [address], [place] [address] Mar, [facility] [address] [id number] [address] [place] [address], [place] [address] Mar, [facility] [address] [id number] [address] [place] [address] Feb, [facility] [address] [id number] [address] [place] [address], [place] [address] Jan, [facility] [address] [id number] [address] [place] [address], [place] [address] Jan, [facility] [address] [id number] [address] [place] [address], [place] [address] Jan, [facility] [address] [id number] [address] [place] [address], [place] [address] Jan, [facility] [address] [id number] [address] [place] [address], [place] [address] Jan, [facility] [address] [id number] [address] [place] [address], [place] [address] Jan, [facility] [address] [id number] [address] [place] [address], [place] [address] Jan, [facility] [address] [id number] [address] [place] [address], [place] [address] November, [facility] [address] [id number] [address] [place] [address], [place] [address] Sep, [facility] [address] [id number] [address] [place] [address], [place] [address] Sep, [facility] [address] [id number] [address] [place] [address], [place] [address] Aug, [facility] [address] [id number] [address] [place] [address], [place] [address] Aug, [facility] [address] [id number] [address] [place] [address], [place] [address] Jul, [facility] [address] [id number] [address] [place] [address], [place] [address] Jul, [facility] [address] [id number] [address] [place] [address], [place] [address] Jul, [facility] [address] [id number] [address] [place] [address], [place] [address] May, [facility] [address] [id number] [address] [place] [address], [place] [address] Apr, [facility] [address] [id number] [address] [place] [address], [place] [address] Apr, [facility] [address] [id number] [address] [place] [address], [place] [address] Apr, [facility] [address] [id number] [address] [place] [address], [place] [address] Apr, [facility] [address] [id number] [address] [place] [address], [place] [address] Apr, [facility] [address] [id number] [address] [place] [address], [place] [address] Mar, [facility] [address] [id number] [address] [place] [address], [place] [address] Feb, [facility] [address] [id number] [address] [place] [address], [place] [address] Feb, [facility] [address] [id number] [address] [place] [address], [place] [address] Jan, [facility] [address] [id number] [address] [place] [address], [place] [address] Jan, [facility] [address] [id number] [address] [place] [address], [place] [address] November, [facility] [address] [id number] [address] [place] [address], [place] [address] 20 Oct, 2011 [facility] [address] [id number] [address] [place] [address], [place] [address] 19 Oct, 2011 [facility] [address] [id number] [address] [place] [address], [place] [address] 18 Oct, 2011 [facility] [address] [id number] [address] [place] [address], [place] [address] 18 Oct, 2011 [facility] [address] [id number] [address] [place] [address], [place] [address] 16 Oct, 2011 [facility] [address] [id number] [address] [place] [address], [place] [address] 13 Oct, 2011 [facility] [address] [id number] [address] [place] [address], [place] [address] 12 Oct, 2011 [facility] [address] [id number] [address] [place] [address], [place] [address] 11 Oct, 2011 [facility] [address] [id number] [address] [place] [address], [place] [address] 10 Oct, 2011 [facility] [address] [id number] [address] [place] [address], [place] [address] 10 Oct, 2011 [facility] [address] [id number] [address] [place] [address], [place] [address] Sep, [facility] [address] [id number] [address] [place] [address], [place] [address] 10 Aug, 2011 [facility] [address] [id number] [address] [place] [address], [place] [address] Jun, [facility] [address] [id number] [address] [place] [address], [place] [address] 14 Jun, 2011 [facility] [address] [id number] [address] [place] [address], [place] [address] 14 Jun, 2011 [facility] [address] [id number] [address] [place] [address], [place] [address] 14 Jun, 2011 [facility] [address] [id number] [address] [place] [address], [place] [address] 07 Jun, 2011 [facility] [address] [id number] [address] [place] [address], [place] [address] 02 May, 2011 [facility] [address] [id number] [address] [place] [address], [place] [address] Apr, [facility] [address] [id number] [address] [place] [address], [place] [address] 10 Apr, 2011 [facility] [address] [id number] [address] [place] [address], [place] [address] 15 Oct, 2010 [facility] [address] [id number] [address] [place] [address], [place] [address] 09 Jun, 2010 [facility] [address] [id number] [address] [place] [address], [place] [address] 07 Jun, 2010 [facility] [address] [id number] [address] [place] [address] Jun, [facility] [address] [id number] [address] [place] [address] Jun, [facility] [address] [id number] [address] [place] [phone] May, [facility] [address] [id number] [address] [place] [phone] May, [facility] [address] [id number] [address] [place] [phone] May, [facility] [address] [id number] [address] [place] [phone] Apr, [facility] [address] [id number] [address] [place] [phone] Apr, [facility] [address] [id number] [address] [place] [phone] Apr, [facility] [address] [id number] [address] [place] [phone] Oct, [facility] [address] [id number] [address] [place] [phone] Jul, [facility] [address] [id number] [address] [place] [phone] Apr, [facility] [address] [id number] [address] [place] [phone] Mar, IMMUNIZATIONS No Known Immunizations SOCIAL HISTORY [...]
--- OUTSIDE RECORDS SUMMARY | 2019-11-14 14:45 | XMS REPORT | Encounter Summary ---
Author Author [facility] Organization [facility] Address Unknown Phone Unavailable Care Team Providers Care Head Field Hockey Coach Name Role Phone Addy Farr PCP Encounter Details Care Team Description Date Type Department [facility], Historical 04/04/2007 PracPart Note [facility] Social History Date Tobacco Use Types Packs/Day Years Used Never Assessed Sex Assigned at Date Recorded Not on file Industry Job Start Date Occupation Not on file Not on file Not on file Travel End Travel History Travel Start No recent travel history available. documented as of this encounter Progress Notes * [facility], Historical - 04/04/2007 10:36 AM CDT . [...]
--- OUTSIDE RECORDS SUMMARY | 2019-11-14 14:50 | XMS REPORT | Continuity of Care Document ---
Author Organization Unknown Address Unknown Phone Unavailable Allergies Active Description Code Type Severity Reaction Onset Reported/Identified Relationship to Patient Clinical Status Yes Latex Environment Un known N/A Yes penicillin [id number] Drug Unknown N/A Yes latex OA N/A N/A 11/08/2008 Yes Penicillins Drug Allergy N/A N/A 11/08/2008 Yes latex OA 11/08/2008 Yes Penicillins Drug Allergy 11/08/2008 Yes latex [id number] Drug Allergy Mild N/A 07/22/2013 Yes Penicillins [id number] Drug Aller gy Mild N/A 07/22/2013 Yes [...] 10/14/2009 V72.31 ROU NAYELI GYNECOLOGICAL EXAMINATION 10/14/2009 VANSESA PERES MD 733.0 0 OSTEOPOROSIS 10/14/2009 VANESSA EPRES MD V49.8 1 ASYMPTOMATIC POSTMENOPAUSAL STATUS (AGE-RELATED) [...] 789.01 Abdominal Pain, Right Upper Quadrant 11/21/2009 TSANLEY DO, AUGUSTUS K 331.0 ALZHEIMER'S DISEASE 11/21/2009 [...] AUGUSTUS K V76.10 Breast Screening, Unspecified 03/28/2010 STANLYE DO, AUGUSTUS K 578.1 Blood In Stool 03/28/2010 STANLEY DO, AUUGSTUS K 789.00 Abdominal Pain Unspecified Site 03/28/2010 [...] 10/08/2010 Ot 414.01 COR ONARY ATHEROSCLEROSIS OF [place] CORON 10/08/2010 Ot 530.81 ESO PHAGEAL REFLUX [...] 786.0 7 Wheezing 06/16/2011 Ot 305.1 TOBA FREIGHT CAR BUILDER USE DISORDER 06/16/2011 Ot 345.90 EPI LEPSY [...] 06/19/2011 Ot 414.01 COR ONARY ATHEROSCLEROSIS OF [place] CORON 06/19/2011 Ot 427.89 CAR DIAC DYSRHYTHMIAS [...] AUGUSTUS K V78.0 ANEMIA SCREENING 10/14/2011 VANESSA PERES MD [...] 427.89 OTHER SPECIFIED CARDIAC DYSRHYTHMIAS 08/26/2012 VANESSA PREES MD 427.8 9 OTHER SPECIFIED CARDIAC DYSRHYTHMIAS 08/26/2012 VANESSA PERES MD 427.8 9 OTHER SPECIFIED CARDIAC DYSRHYTHMIAS 08/26/2012 VANESSA PERES MD 427.8 9 OTHER SPECIFIED CARDIAC DYSRHYTHMIAS 10/16/2012 Ot 272.4 HYPE RLIPIDEMIA NEC/NOS 10/16/2012 Ot 414.00 COR ON ATHEROSCLER NOS TYPE VESSEL, NATIV 10/16/2012 Ot 427.89 CAR DIAC DYSRHYTHMIAS NEC 10/16/2012 Ot 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 81 10/07/2015 ROZ SOTELO FAC, [facility] CCDS Ot 789.30 10/07/2015 BELINDA RIVERA DO [...] 530. 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 BRONCHITIS NOS 10/31/2015 BELINDA RIVERA [...] SPECIFIED ACUTE OR CH 06/10/2016 RYAN VALENZUELA TEXTILE SCREEN MAKER Ot R06.02 SHORTNESS OF BREATH 06/10/2016 RYAN VALENZUELA APRN Ot R42 DIZZINESS AND GIDDINESS 06/10/2016 RYAN VALENZUELA APRN Ot Z79.82 SPEECH SCIENTIST (CURRENT) USE OF ASPIRIN 06/10/2016 RYAN VALENZUELA APRN Ot Z79.899 OTHER SPEECH SCIENTIST (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 THERAPY 06/10/2016 RYAN VALENZUELA APRN [...] CAR DIAC DYSRHYTHMIAS NEC 06/10/2016 Ot 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 BRONCHITIS NOS 06/10/2016 FENECH DO, [...] DO, Ot I25.10 ATHSCL HEART DISEASE OF [place] CORONARY 08/03/2016 FABIOLA HERNANDEZ DO, Ot S01.01XA LACERATION WITHOUT FOREIGN BODY OF SCALP 08/03/2016 FABIOLA HERNANDEZ DO, Ot W01.0XXA FALL SAME LEV FROM SLIP/TRIP W/O STRIKE 08/03/2016 FABIOLA HERNANDEZ DO, Ot Y99.8 OTHER EXTERNAL CAUSE STATUS 08/03/2016 FABIOLA HERNANDEZ DO, Ot Z2 3 ENCOUNTER FOR IMMUNIZATION 08/03/2016 FABIOLA HERNANDEZ DO, Ot Z79.82 SPEECH SCIENTIST (CURRENT) USE OF ASPIRIN 08/03/2016 FABIOLA HERNANDEZ DO, Ot Z79.899 OTHER SENIOR CARE (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 THERAPY 08/04/2016 FABIOLA HERNANDEZ DO, Ot I1 0 ESSENTIAL (PRIMARY) HYPERTENSION 08/04/2016 FABIOLA HERNANDEZ DO, Ot I25.10 ATHSCL HEART DISEASE OF [place] CORONARY 08/04/2016 FABIOLA HERNANDEZ DO, Ot S01.01XA LACERATION WITHOUT FOREIGN BODY OF SCALP 08/04/2016 FABIOLA HERNANDEZ DO, Ot W01.0XXA FALL SAME LEV FROM SLIP/TRIP W/O STRIKE 08/04/2016 FABIOLA HERNANDEZ DO, Ot Y99.8 OTHER EXTERNAL CAUSE STATUS 08/04/2016 FABIOLA HERNANDEZ DO Ot Z2 3 ENCOUNTER FOR IMMUNIZATION 08/04/2016 FABIOLA HERNANDEZ DO Ot Z79.82 SENIOR CARE (CURRENT) USE OF ASPIRIN 08/04/2016 FABIOLA HERNANDEZ DO Ot Z79.899 OTHER SENIOR CARE (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 THERAPY 08/11/2016 FABIOLA HERNANDEZ DO Ot I1 0 ESSENTIAL (PRIMARY) HYPERTENSION 08/11/2016 FABIOLA HERNANDEZ DO, Ot I25.10 ATHSCL HEART DISEASE OF [place] CORONARY 08/11/2016 FABIOLA HERNANDEZ DO Ot S01.01XA LACERATION WITHOUT FOREIGN BODY OF SCALP 08/11/2016 FABIOLA HERNANDEZ DO Ot W01.0XXA FALL SAME LEV FROM SLIP/TRIP W/O STRIKE 08/11/2016 FABIOLA HERNANDEZ DO Ot Y99.8 OTHER EXTERNAL CAUSE STATUS 08/11/2016 FABIOLA HERNANDEZ DO, Ot Z2 3 ENCOUNTER FOR IMMUNIZATION 08/11/2016 FABIOLA HERNANDEZ DO, Ot Z79.82 SENIOR CARE (CURRENT) USE OF ASPIRIN 08/11/2016 FABIOLA HERNANDEZ DO, Ot Z79.899 OTHER SENIOR CARE (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 THERAPY 08/24/2016 Ot V76.12 OTH [...] CAR DIAC DYSRHYTHMIAS NEC 08/24/2016 Ot 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 10 ATHSCL HEART DISEASE OF [place] CORONARY 08/26/2016 SOLIS PIRES MD Ot R42 DIZZINESS AND GIDDINESS 08/26/2016 SOLIS PIRES MD Ot Z79. 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 10 ATHSCL HEART DISEASE OF [place] CORONARY 08/28/2016 SOLIS PIRES MD Ot R42 DIZZINESS AND GIDDINESS 08/28/2016 SOLIS PIRES MD Ot Z79. 82 SPEECH SCIENTIST (CURRENT) USE OF ASPIRIN 08/28/2016 SOLIS PIRES MD Ot Z79.899 OTHER SENIOR CARE (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 THERAPY 09/15/2016 JOVON LING MD [...] Ot I10 ESSENTIAL (PRIMARY) HYPERTENSION 10/02/2016 SANDOVALDADA LZOA DO Ot I25.10 ATHSCL HEART DISEASE OF [place] CORONARY 10/02/2016 SANDOVALDADA LOZA DO Ot K21.9 GASTRO-ESOPHAGEAL REFLUX DISEASE WITHOUT 10/02/2016 DADA SANDOVAL DO Ot R10.11 RIGHT UPPER QUADRANT PAIN 10/02/2016 DADA SANDOVAL DO Ot R42 DIZZINESS AND GIDDINESS 10/03/2016 Ot 305.1 TOBA FREIGHT CAR BUILDER USE DISORDER 10/03/2016 Ot 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 10/03/2016 Ot 780.4 DIZZ INESS AND GIDDINESS 10/03/2016 Ot 780.79 OTH MALAISE FATIGUE 10/03/2016 Ot V58.69 OTH MED,LT,CURRENT USE 10/05/2016 JOVON LING MD Ot R92.8 OTH ABN AND INCONCLUSIVE FINDINGS ON DX 10/05/2016 JOVNO LING MD Ot R92.8 OTH ABN AND INCONCLUSIVE FINDINGS ON DX 10/06/2016 JOVON LING MD Ot R92.8 OTH ABN AND INCONCLUSIVE FINDINGS ON DX 10/06/2016 JOVON LING MD Ot R92.8 OTH ABN AND INCONCLUSIVE FINDINGS ON DX 11/02/2016 Ot 305.1 TOBA FREIGHT CAR BUILDER USE DISORDER 11/02/2016 Ot 345.90 EPI LEPSY [...] MD Ot I25.10 ATHSCL HEART DISEASE OF [place] CORONARY 12/16/2016 INDIA BARROW MD Ot K57.30 DVRTCLOS OF LG INT W/O PERFORATION OR AB 12/16/2016 INDIA BARROW MD Ot K63.5 POLYP OF COLON 12/16/2016 INDIA BARROW MD Ot Z12.11 ENCOUNTER FOR SCREENING FOR MALIGNANT NE 12/16/2016 INDIA BARROW MD Ot Z79.899 OTHER SPEECH SCIENTIST (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 THERAPY 12/29/2016 INDIA BARROW MD Ot E78.5 HYPERLIPIDEMIA, UNSPECIFIED 12/29/2016 INDIA BARROW MD Ot I1 0 ESSENTIAL (PRIMARY) HYPERTENSION 12/29/2016 INDIA BARROW MD Ot I25.10 ATHSCL HEART DISEASE OF [place] CORONARY 12/29/2016 INDIA BARROW MD Ot K57.30 DVRTCLOS OF LG INT W/O PERFORATION OR AB 12/29/2016 INDIA BARROW MD Ot K63.5 POLYP OF COLON 12/29/2016 INDIA BARROW MD Ot Z12.11 ENCOUNTER FOR SCREENING FOR MALIGNANT NE 12/29/2016 INDIA BARROW MD Ot Z79.899 OTHER SPEECH SCIENTIST (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 THERAPY 01/06/2017 INDIA BARROW MD Ot E78.5 HYPERLIPIDEMIA, UNSPECIFIED 01/06/2017 INDIA BARROW MD Ot I1 0 ESSENTIAL (PRIMARY) HYPERTENSION 01/06/2017 INDIA BARROW MD Ot I25.10 ATHSCL HEART DISEASE OF [place] CORONARY 01/06/2017 INDIA BARROW MD Ot K57.30 DVRTCLOS OF LG INT W/O PERFORATION OR AB 01/06/2017 INDIA BARROW MD Ot K63.5 POLYP OF COLON 01/06/2017 INDIA BARROW MD Ot Z12.11 ENCOUNTER FOR SCREENING FOR MALIGNANT NE 01/06/2017 INDIA BARROW MD Ot Z79.899 OTHER SPEECH SCIENTIST (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 THERAPY 01/13/2017 INDIA BARROW MD Ot E78.5 HYPERLIPIDEMIA, UNSPECIFIED 01/13/2017 INDIA BARROW MD Ot I1 0 ESSENTIAL (PRIMARY) HYPERTENSION 01/13/2017 INDIA BARROW MD Ot I25.10 ATHSCL HEART DISEASE OF [place] CORONARY 01/13/2017 INDIA BARROW MD Ot K57.30 DVRTCLOS OF LG INT W/O PERFORATION OR AB 01/13/2017 INDIA BARROW MD Ot K63.5 POLYP OF COLON 01/13/2017 INDIA BARROW MD Ot Z12.11 ENCOUNTER FOR SCREENING FOR MALIGNANT NE 01/13/2017 INDIA BARROW MD Ot Z79.899 OTHER SPEECH SCIENTIST (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 THERAPY 01/25/2017 LOLLY SUTTON TEXTILE SCREEN MAKER Ot R92.8 OTH ABN AND INCONCLUSIVE FINDINGS ON DX 01/27/2017 LOLLY SUTTON TEXTILE SCREEN MAKER Ot R92.8 OTH ABN AND INCONCLUSIVE FINDINGS ON DX 02/01/2017 LOLLY SUTTON APRN Ot R92.8 OTH ABN AND INCONCLUSIVE FINDINGS ON DX 02/02/2017 LOLLY SUTTON TEXTILE SCREEN MAKER Ot R92.8 OTH ABN AND INCONCLUSIVE FINDINGS ON DX 03/01/2017 LOLLY SUTTON TEXTILE SCREEN MAKER Ot R92.8 OTH ABN AND INCONCLUSIVE FINDINGS ON DX 03/02/2017 LOLLY SUTTON TEXTILE SCREEN MAKER Ot R92.8 OTH ABN AND INCONCLUSIVE FINDINGS ON DX 03/03/2017 LOLLY SUTTON TEXTILE SCREEN MAKER Ot R92.8 OTH ABN AND INCONCLUSIVE FINDINGS ON DX 04/06/2017 LOLLY SUTTON APRN Ot M81.0 AGE-RELATED OSTEOPOROSIS W/O CURRENT PAT 04/06/2017 LOLLY SUTTON APRN Ot M81.0 AGE-RELATED OSTEOPOROSIS W/O CURRENT PAT 04/20/2017 LOLLY SUTTON APRN Ot M81.0 AGE-RELATED OSTEOPOROSIS W/O CURRENT PAT 04/22/2017 LOLLY SUTTON APRN Ot M11.261 OTHER CHONDROCALCINOSIS, RIGHT KNEE 04/22/2017 SUTTON, ASHDEN N TEXTILE SCREEN MAKER Ot M11.262 OTHER CHONDROCALCINOSIS, LEFT KNEE 04/28/2017 SUTTON YANDYGENEVA N TEXTILE SCREEN MAKER Ot M11.261 OTHER CHONDROCALCINOSIS, RIGHT KNEE 04/28/2017 SUTTON ASHGENEVA N TEXTILE SCREEN MAKER Ot M11.262 OTHER CHONDROCALCINOSIS, LEFT KNEE 05/14/2017 SUTTON ASHGENEVA N TEXTILE SCREEN MAKER Ot M11.261 OTHER CHONDROCALCINOSIS, RIGHT KNEE 05/14/2017 SUTTON ASHGENEVA N TEXTILE SCREEN MAKER Ot M11.262 OTHER CHONDROCALCINOSIS, LEFT KNEE 05/19/2017 SUTTON ASHGENEVA N TEXTILE SCREEN MAKER Ot M11.261 OTHER CHONDROCALCINOSIS, RIGHT KNEE 05/19/2017 SUTTON ASHGENEVA N TEXTILE SCREEN MAKER Ot M11.262 OTHER CHONDROCALCINOSIS, LEFT KNEE 05/24/2017 SUTTON ASHGENEVA N TEXTILE SCREEN MAKER Ot M11.261 OTHER CHONDROCALCINOSIS, RIGHT KNEE 05/24/2017 SUTTON ASHGENEVA N TEXTILE SCREEN MAKER Ot M11.262 OTHER CHONDROCALCINOSIS, LEFT KNEE 06/02/2017 [...] Ot I25. 10 ATHSCL HEART DISEASE OF [place] CORONARY 06/02/2017 MACY GLYNN MD Ot K21. [...] 06/02/2017 MACY GLYNN MD Ot Z79. 82 SPEECH SCIENTIST (CURRENT) USE OF ASPIRIN 06/02/2017 MACY GLYNN [...] Ot I25. 10 ATHSCL HEART DISEASE OF [place] CORONARY 06/08/2017 MACY GLYNN MD Ot K21. [...] 06/08/2017 MACY GLYNN MD Ot Z79. 82 SPEECH SCIENTIST (CURRENT) USE OF ASPIRIN 06/08/2017 MACY GLYNN MD, Ot Z87.828 PERSONAL HISTORY OF OTH (HEALED) PHYSICA 06/08/2017 MACY GLYNN MD, Ot Z90. 49 ACQUIRED ABSENCE OF OTHER SPECIFIED PART 07/07/2017 BELINDA VALDEZ MD Ot E04 .2 NONTOXIC MULTINODULAR GOITER 07/27/2017 BELINDA VALDEZ MD, Ot E04 .2 NONTOXIC MULTINODULAR GOITER 07/30/2017 LOLLY SUTTON APRN Ot R92.8 OTH ABN [...] MD Ot I25.10 ATHSCL HEART DISEASE OF [place] CORONARY 08/24/2017 THERESE FINN MD Ot J42 UNSPECIFIED CHRONIC BRONCHITIS 08/24/2017 THERESE FINN MD Ot K21.9 GASTRO-ESOPHAGEAL REFLUX DISEASE WITHOUT 08/24/2017 THERESE FINN MD Ot R07.89 OTHER CHEST PAIN 08/24/2017 THERESE FINN MD Ot R60.0 LOCALIZED EDEMA 08/24/2017 THERESE FINN MD Ot Z79.52 SPEECH SCIENTIST (CURRENT) USE OF SYSTEMIC STER 08/24/2017 THERESE FINN MD Ot Z79.82 SPEECH SCIENTIST (CURRENT) USE OF ASPIRIN 08/24/2017 THERESE FINN [...] Ot M41.9 SCOLIOSIS, UNSPECIFIED 09/06/2017 LOLLY SUTTON TEXTILE SCREEN MAKER Ot M47.816 SPONDYLOSIS W/O MYELOPATHY OR RADICULOPA 09/06/2017 YANDY SUTTONGENEVA Sultana TEXTILE SCREEN MAKER Ot M79.605 PAIN IN LEFT LEG 09/06/2017 YANDY SUTTONGENEVA [employer] TEXTILE SCREEN MAKER Ot R90.82 WHITE MATTER DISEASE, UNSPECIFIED 09/06/[address] TEXTILE SCREEN MAKER Ot W19.XXXA UNSPECIFIED FALL, INITIAL ENCOUNTER 09/06/2017 YANDY SUTTONGENEVA [employer] TEXTILE SCREEN MAKER Ot M41.9 SCOLIOSIS, UNSPECIFIED 09/06/2017 YANDY SUTTONGENEVA [employer] TEXTILE SCREEN MAKER Ot M47.816 SPONDYLOSIS W/O MYELOPATHY OR RADICULOPA 09/06/2017 YANDY SUTTONGENEVA [employer] TEXTILE SCREEN MAKER Ot M79.605 PAIN IN LEFT LEG 09/06/2017 SUTTON YANDYGENEVA [employer]ultana TEXTILE SCREEN MAKER Ot R90.82 WHITE MATTER DISEASE, UNSPECIFIED 09/06/2017 SUTTON YANDYGENEVA [employer] TEXTILE SCREEN MAKER Ot W19.XXXA UNSPECIFIED FALL, INITIAL ENCOUNTER 09/16/2017 SUTTON YANDYVIGNESH VAIL Ot R92.8 OTH ABN AND INCONCLUSIVE FINDINGS ON DX 09/22/2017 SUTTON YANDYGENEVA [employer] TEXTILE SCREEN MAKER Ot M41.9 SCOLIOSIS, UNSPECIFIED 09/22/2017 YANDY SUTTONGENEVA [employer]ana TEXTILE SCREEN MAKER Ot M47.816 SPONDYLOSIS W/O MYELOPATHY OR RADICULOPA 09/22/2017 YANDY SUTTONGENEVA [employer] TEXTILE SCREEN MAKER Ot M79.605 PAIN IN LEFT LEG 09/22/2017 LESLEY YANDYGENEVA [employer]ultana TEXTILE SCREEN MAKER Ot R90.82 WHITE MATTER DISEASE, UNSPECIFIED 09/22/2017 SUTTON YANDYGENEVA [employer]ultana TEXTILE SCREEN MAKER Ot W19.XXXA UNSPECIFIED FALL, INITIAL ENCOUNTER 09/29/2017 LESLEY YANDYGENEVA [employer]ana TEXTILE SCREEN MAKER Ot M41.9 SCOLIOSIS, UNSPECIFIED 09/29/2017 SUTTON YANDYGENEVA [employer] TEXTILE SCREEN MAKER Ot M47.816 SPONDYLOSIS W/O MYELOPATHY OR RADICULOPA 09/29/2017 LESLEY YANDYGENEVA [employer] TEXTILE SCREEN MAKER Ot M79.605 PAIN IN LEFT LEG 09/29/2017 LESLEY YANDYGENEVA [employer] TEXTILE SCREEN MAKER Ot R90.82 WHITE MATTER DISEASE, UNSPECIFIED 09/29/2017 SUTTON YANDYGENEVA [employer]ana TEXTILE SCREEN MAKER Ot W19.XXXA UNSPECIFIED FALL, INITIAL ENCOUNTER 11/11/2017 Ot 272.4 HYPE RLIPIDEMIA NEC/NOS 11/11/2017 Ot 414.00 COR ON ATHEROSCLER NOS TYPE VESSEL, NATIV 11/11/2017 Ot 427.89 CAR DIAC DYSRHYTHMIAS NEC 11/11/2017 Ot 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 9 HYPERTENSION NOS 11/11/2017 NIGA DIEGO MD Ot 414. 00 CORON ATHEROSCLER [...] MD Ot I25.10 ATHSCL HEART DISEASE OF [place] CORONARY 11/11/2017 INDIA BARROW MD Ot K57.30 DVRTCLOS OF LG INT W/O PERFORATION OR AB 11/11/2017 INDIA BARROW MD Ot K63.5 POLYP OF COLON 11/11/2017 INDIA BARROW MD M Ot Z12.11 ENCOUNTER FOR SCREENING FOR MALIGNANT NE 11/11/2017 PUSHPA SOTELO, INDIA Sims Ot Z79.899 OTHER SENIOR CARE (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 THERAPY 11/11/2017 PUSHPA SOTELO, INDIA Sims Ot Z01.818 ENCOUNTER FOR OTHER PREPROCEDURAL EXAMIN 11/11/2017 PUSHPA SOTELO, INDIA Sims Ot Z12.11 ENCOUNTER FOR SCREENING FOR MALIGNANT NE 11/11/2017 LOLLY SUTTON TEXTILE SCREEN MAKER Ot R92.8 OTH ABN AND INCONCLUSIVE FINDINGS ON DX 11/11/2017 LOLLY SUTTON TEXTILE SCREEN MAKER Ot M11.261 OTHER CHONDROCALCINOSIS, RIGHT KNEE 11/11/2017 LOLLY SUTTON TEXTILE SCREEN MAKER Ot M11.262 OTHER CHONDROCALCINOSIS, LEFT KNEE 11/11/2017 COURTNEY SOTELO, BELINDA Gomez Ot E04 .2 NONTOXIC MULTINODULAR GOITER 11/11/2017 LOLLY SUTTON TEXTILE SCREEN MAKER Ot R92.8 OTH ABN AND INCONCLUSIVE FINDINGS ON DX 11/11/2017 LOLLY SUTTON TEXTILE SCREEN MAKER Ot M41.9 SCOLIOSIS, UNSPECIFIED 11/11/2017 LOLLY SUTTON TEXTILE SCREEN MAKER Ot M47.816 SPONDYLOSIS W/O MYELOPATHY OR RADICULOPA 11/11/2017 LOLLY SUTTON TEXTILE SCREEN MAKER Ot M79.605 PAIN IN LEFT LEG 11/11/2017 LOLLY SUTTON TEXTILE SCREEN MAKER Ot R90.82 WHITE MATTER DISEASE, UNSPECIFIED 11/11/2017 LOLYL SUTTON TEXTILE SCREEN MAKER Ot W19.XXXA UNSPECIFIED FALL, INITIAL ENCOUNTER 11/15/2017 JUDY BRUNO PROCEDURE RN Ot E04.2 NONTOXIC MULTINODULAR GOITER 11/24/2017 JAIME [...] DADA Ot I25.10 ATHSCL HEART DISEASE OF [place] CORONARY 11/24/2017 DADA SANDOVAL DO Ot K21.9 [...] SEE 11/24/2017 DADA SANDOVAL DO Ot Z79.82 SPEECH SCIENTIST (CURRENT) USE OF ASPIRIN 11/24/2017 DADA SANDOVAL DO Ot Z79.89 9 OTHER SPEECH SCIENTIST (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 THERAPY 11/24/2017 DADA SANDOVAL DO [...] MD Ot I25.10 ATHSCL HEART DISEASE OF [place] CORONARY 11/25/2017 THERESE FINN MD Ot K21.9 GASTRO-ESOPHAGEAL REFLUX DISEASE WITHOUT 11/25/2017 THERESE FINN MD Ot N18.9 CHRONIC KIDNEY DISEASE, UNSPECIFIED 11/25/2017 THERESE FINN MD Ot R07.9 CHEST PAIN, UNSPECIFIED 11/25/2017 THERESE FINN MD Ot R60.0 LOCALIZED EDEMA 11/25/2017 THEREES FINN MD Ot Z79.52 SENIOR CARE (CURRENT) USE OF SYSTEMIC STER 11/25/2017 THERESE FINN MD Ot Z79.82 SENIOR CARE (CURRENT) USE OF ASPIRIN 11/25/2017 THERESE FINN [...] EPILEPSY, UNSP, NOT INTRACTABLE, WITHOUT 11/29/2017 THERESE FNIN MD Ot G89.29 OTHER CHRONIC PAIN 11/29/2017 THERESE FINN MD Ot I10 ESSENTIAL (PRIMARY) HYPERTENSION 11/29/2017 THERESE FINN MD Ot I12.9 HYPERTENSIVE CHRONIC KIDNEY DISEASE W ST 11/29/2017 THERESE FINN MD Ot I25.10 ATHSCL HEART DISEASE OF [place] CORONARY 11/29/2017 THERESE FINN MD Ot K21.9 GASTRO-ESOPHAGEAL REFLUX DISEASE WITHOUT 11/29/2017 THERESE FINN MD Ot N18.9 CHRONIC KIDNEY DISEASE, UNSPECIFIED 11/29/2017 THERESE FINN MD Ot R07.9 CHEST PAIN, UNSPECIFIED 11/29/2017 THERESE FINN MD Ot R60.0 LOCALIZED EDEMA 11/29/2017 THERESE FINN MD Ot Z79.52 SPEECH SCIENTIST (CURRENT) USE OF SYSTEMIC STER 11/29/2017 THERESE FINN MD Ot Z79.82 SENIOR CARE (CURRENT) USE OF ASPIRIN 11/29/2017 THERESE FINN [...] APRN Ot I25.10 ATHSCL HEART DISEASE OF [place] CORONARY 12/07/2017 RYAN VALENZUELA APRN Ot K21 .9 GASTRO-ESOPHAGEAL REFLUX DISEASE WITHOUT 12/07/2017 RYAN VALENZUELA APRN Ot L03.115 CELLULITIS OF RIGHT LOWER LIMB 12/07/2017 RYAN VALENZUELA APRN Ot L03.116 CELLULITIS OF LEFT LOWER LIMB 12/07/2017 RYAN VALENZUELA APRN Ot M79.604 PAIN IN RIGHT LEG 12/07/2017 RYAN VALENZUELA APRN Ot Z79.52 SPEECH SCIENTIST (CURRENT) USE OF SYSTEMIC STER 12/07/2017 RYAN VALENZUELA APRN Ot Z87 .2 PERSONAL HISTORY OF DISEASES OF THE SKIN 12/07/2017 RYAN VALENZUELA TEXTILE SCREEN MAKER Ot Z88 .0 ALLERGY STATUS TO PENICILLIN 12/07/2017 RYAN VALENZUELA TEXTILE SCREEN MAKER Ot Z90.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 12/07/2017 RYAN VALENZUELA APRN Ot Z91.040 LATEX ALLERGY STATUS 12/08/2017 JUDY BRUNO Anirudh PROCEDURE RN Ot E04.2 NONTOXIC MULTINODULAR GOITER 12/13/2017 RYAN VALENZUELA TEXTILE SCREEN MAKER Ot E78.00 PURE HYPERCHOLESTEROLEMIA, UNSPECIFIED 12/13/2017 RYAN VALENZUELA APRN Ot F03.90 UNSPECIFIED DEMENTIA WITHOUT BEHAVIORAL 12/13/2017 RYAN VALENZUELA APRN Ot F31 .9 BIPOLAR DISORDER, UNSPECIFIED 12/13/2017 RYAN VALENZUELA TEXTILE SCREEN MAKER Ot G40.909 EPILEPSY, UNSP, NOT INTRACTABLE, WITHOUT 12/13/2017 RYAN VALENZUELA APRN Ot G47 .9 SLEEP DISORDER, UNSPECIFIED 12/13/2017 RYAN VALENZUELA APRN Ot I10 ESSENTIAL (PRIMARY) HYPERTENSION 12/13/2017 RYAN VALENZUELA TEXTILE SCREEN MAKER Ot I25.10 ATHSCL HEART DISEASE OF [place] CORONARY 12/13/2017 RYAN VALENZUELA APRN Ot K21 .9 GASTRO-ESOPHAGEAL REFLUX DISEASE WITHOUT 12/13/2017 RYAN VALENZUELA TEXTILE SCREEN MAKER Ot L03.115 CELLULITIS OF RIGHT LOWER LIMB 12/13/2017 RYNA VALENZUELA APRN Ot L03.116 CELLULITIS OF LEFT LOWER LIMB 12/13/2017 RYAN VALENZUELA APRN Ot M79.604 PAIN IN RIGHT LEG 12/13/2017 RYAN VALENZUELA TEXTILE SCREEN MAKER Ot Z79.52 SENIOR CARE (CURRENT) USE OF SYSTEMIC STER 12/13/2017 RYAN VALENZUELA APRN Ot Z87 .2 PERSONAL HISTORY OF DISEASES OF THE SKIN 12/13/2017 RYAN VALENZUELA APRN Ot Z88 .0 ALLERGY STATUS TO PENICILLIN 12/13/2017 RYAN VALENZUELA TEXTILE SCREEN MAKER Ot Z90.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 12/13/2017 RYAN VALENZUELA TEXTILE SCREEN MAKER Ot Z91.040 LATEX ALLERGY STATUS 12/13/2017 RYAN [...] APRN Ot I25.10 ATHSCL HEART DISEASE OF [place] CORONARY 12/13/2017 RYAN VALENZUELA APRN Ot K21 .9 GASTRO-ESOPHAGEAL REFLUX DISEASE WITHOUT 12/13/2017 RYAN VALENZUELA APRN Ot L03.115 CELLULITIS OF RIGHT LOWER LIMB 12/13/2017 RYAN VALENZUELA APRN Ot L03.116 CELLULITIS OF LEFT LOWER LIMB 12/13/2017 RYAN VALENZUELA APRN Ot M79.604 PAIN IN RIGHT LEG 12/13/2017 RYAN VALENZUELA APRN Ot Z79.52 SENIOR CARE (CURRENT) USE OF SYSTEMIC STER 12/13/2017 RYAN [...] APRN Ot I25.10 ATHSCL HEART DISEASE OF [place] CORONARY 12/15/2017 RYAN VALENZUELA TEXTILE SCREEN MAKER Ot K21 .9 GASTRO-ESOPHAGEAL REFLUX DISEASE WITHOUT 12/15/2017 RYAN VALENZUELA TEXTILE SCREEN MAKER Ot L03.115 CELLULITIS OF RIGHT LOWER LIMB 12/15/2017 RYAN VALENZUELA TEXTILE SCREEN MAKER Ot L03.116 CELLULITIS OF LEFT LOWER LIMB 12/15/2017 RYAN VALENZUELA TEXTILE SCREEN MAKER Ot M79.604 PAIN IN RIGHT LEG 12/15/2017 RYAN VALENZUELA TEXTILE SCREEN MAKER Ot Z79.52 SPEECH SCIENTIST (CURRENT) USE OF SYSTEMIC STER 12/15/2017 RYAN VALENZUELA TEXTILE SCREEN MAKER Ot Z87 .2 PERSONAL HISTORY OF DISEASES OF THE SKIN 12/15/2017 RYAN VALENZUELA TEXTILE SCREEN MAKER Ot Z88 .0 ALLERGY STATUS TO PENICILLIN 12/15/2017 RYAN VALENZUELA APRN Ot Z90.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 12/15/2017 RYAN VALENZUELA APRN Ot Z91.040 LATEX ALLERGY STATUS 12/16/2017 JUDY BRUNO PROCEDURE RN Ot E04.2 NONTOXIC MULTINODULAR GOITER 12/22/2017 BELINDA VALDEZ MD Ot E04 .1 NONTOXIC SINGLE THYROID NODULE 12/22/2017 LOLLY SUTTON TEXTILE SCREEN MAKER Ot M62.81 MUSCLE WEAKNESS (GENERALIZED) 12/22/2017 LOLLY SUTTON TEXTILE SCREEN MAKER Ot M79.604 PAIN IN RIGHT LEG 12/22/2017 LOLLY SUTTON TEXTILE SCREEN MAKER Ot M79.605 PAIN IN LEFT LEG 12/22/2017 LOLLY SUTTON TEXTILE SCREEN MAKER Ot R26.9 UNSPECIFIED ABNORMALITIES OF GAIT AND MO 12/23/2017 BELINDA VALDEZ MD P Ot E04 .1 NONTOXIC SINGLE THYROID NODULE 12/24/2017 BELINDA VALDEZ MD Ot E04 .1 NONTOXIC SINGLE THYROID NODULE 12/27/2017 LOLLY SUTTON TEXTILE SCREEN MAKER Ot M62.81 MUSCLE WEAKNESS (GENERALIZED) 12/27/2017 LOLLY SUTTON TEXTILE SCREEN MAKER Ot M79.604 PAIN IN RIGHT LEG 12/27/2017 LOLLY SUTTON TEXTILE SCREEN MAKER Ot M79.605 PAIN IN LEFT LEG 12/27/2017 LOLLY SUTTON TEXTILE SCREEN MAKER Ot R26.9 UNSPECIFIED ABNORMALITIES OF GAIT AND MO 01/03/2018 LOLLY SUTTON TEXTILE SCREEN MAKER Ot M62.81 MUSCLE WEAKNESS (GENERALIZED) 01/03/[address] TEXTILE SCREEN MAKER Ot M79.604 PAIN IN RIGHT LEG 01/03/[address] TEXTILE SCREEN MAKER Ot M79.605 PAIN IN LEFT LEG 01/03/2018 YANDY SUTTONGENEVA Sultana TEXTILE SCREEN MAKER Ot R26.9 UNSPECIFIED ABNORMALITIES OF GAIT AND [...] Ot I25. 10 ATHSCL HEART DISEASE OF [place] CORONARY 05/15/2018 MACY GLYNN MD Ot K21. [...] 05/15/2018 MACY GLYNN MD, Ot Z79. 52 SENIOR CARE (CURRENT) USE OF SYSTEMIC STER 05/15/2018 MACY GLYNN MD Ot Z79. 82 SENIOR CARE (CURRENT) USE OF ASPIRIN 05/15/2018 MACY GLYNN [...] I1 0 ESSENTIAL (PRIMARY) HYPERTENSION 05/16/2018 INDIA BARROW MD Ot I25.10 ATHSCL HEART DISEASE OF [place] CORONARY 05/16/2018 INDIA BARROW MD Ot K57.30 DVRTCLOS OF LG INT W/O PERFORATION OR AB 05/16/2018 INDIA BARROW MD Ot K63.5 POLYP OF COLON 05/16/2018 INDIA BARROW MD Ot Z12.11 ENCOUNTER FOR SCREENING FOR MALIGNANT NE 05/16/2018 INDIA BARROW MD Ot Z79.899 OTHER SPEECH SCIENTIST (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 THERAPY 05/16/2018 INDIA BARROW MD Ot Z01.818 ENCOUNTER FOR OTHER PREPROCEDURAL EXAMIN 05/16/2018 INDIA BARROW MD Ot Z12.11 ENCOUNTER FOR SCREENING FOR MALIGNANT NE 05/16/2018 LOLLY SUTTON APRN Ot R92.8 OTH ABN AND INCONCLUSIVE FINDINGS ON DX 05/16/[address] TEXTILE SCREEN MAKER Ot M11.261 OTHER CHONDROCALCINOSIS, RIGHT KNEE 05/16/[address] TEXTILE SCREEN MAKER Ot M11.262 OTHER CHONDROCALCINOSIS, LEFT KNEE 05/16/2018 COURTNEY SOTELO, BELINDA Gomez Ot E04 .2 NONTOXIC MULTINODULAR GOITER 05/16/[address] TEXTILE SCREEN MAKER Ot R92.8 OTH ABN AND INCONCLUSIVE FINDINGS ON DX 05/16/[address] TEXTILE SCREEN MAKER Ot M41.9 SCOLIOSIS, UNSPECIFIED 05/16/[address] TEXTILE SCREEN MAKER Ot M47.816 SPONDYLOSIS W/O MYELOPATHY OR RADICULOPA 05/16/[address] TEXTILE SCREEN MAKER Ot M79.605 PAIN IN LEFT LEG 05/16/[address] TEXTILE SCREEN MAKER Ot R90.82 WHITE MAT[place] DISEASE, UNSPECIFIED 05/16/[address] TEXTILE SCREEN MAKER Ot W19.XXXA UNSPECIFIED FALL, INITIAL ENCOUNTER 05/16/2018 JUDY BRUNO PROCEDURE RN Ot E04.2 NONTOXIC MULTINODULAR GOITER 05/16/2018 COURTNEY [...] Ot I25. 10 ATHSCL HEART DISEASE OF [place] CORONARY 05/17/2018 MACY GLYNN MD Ot K21. [...] 05/17/2018 MACY GLYNN MD Ot Z79. 52 SENIOR CARE (CURRENT) USE OF SYSTEMIC STER 05/17/2018 MACY GLYNN MD Ot Z79. 82 SENIOR CARE (CURRENT) USE OF ASPIRIN 05/17/2018 MACY GLYNN [...] Ot K63.9 DISEASE OF INTESTINE, UNSPECIFIED 08/07/2018 ALLISON OLVERA APRN Ot M47.816 SPONDYLOSIS W/O MYELOPATHY OR RADICULOPA 08/07/2018 ALLISON OLVERA APRN Ot M48.061 SPINAL STENOSIS, LUMBAR REGION WITHOUT N 08/07/2018 ALLISON OLVERA TEXTILE SCREEN MAKER Ot Z90.49 ACQUIRED ABSENCE OF OTHER SPECIFIED PART 08/09/2018 ALLISON OLVERA TEXTILE SCREEN MAKER Ot D64.9 ANEMIA, UNSPECIFIED 08/09/2018 ALLISON OLVERA TEXTILE SCREEN MAKER Ot K44.9 DIAPHRAGMATIC HERNIA WITHOUT OBSTRUCTION 08/09/2018 ALLISON OLVERA TEXTILE SCREEN MAKER Ot K63.9 DISEASE OF INTESTINE, UNSPECIFIED 08/09/2018 ALLISON OLVERA [place] TEXTILE SCREEN MAKER Ot M47.816 SPONDYLOSIS W/O MYELOPATHY OR RADICULOPA 08/09/2018 ALLISON OLVERA [place] TEXTILE SCREEN MAKER Ot M48.061 SPINAL STENOSIS, LUMBAR REGION WITHOUT N 08/09/2018 ALLISON OLVERA [place] TEXTILE SCREEN MAKER Ot Z90.49 ACQUIRED ABSENCE OF OTHER SPECIFIED PART 08/09/2018 ALLISON OLVERA [place] TEXTILE SCREEN MAKER Ot D64.9 ANEMIA, UNSPECIFIED 08/09/2018 ALLISON OLVERA [place] TEXTILE SCREEN MAKER Ot K44.9 DIAPHRAGMATIC HERNIA WITHOUT OBSTRUCTION 08/09/2018 ALLISON OLVERA [place] TEXTILE SCREEN MAKER Ot K63.9 DISEASE OF INTESTINE, UNSPECIFIED 08/09/2018 ALLISON OLVERA [place] TEXTILE SCREEN MAKER Ot M47.816 SPONDYLOSIS W/O MYELOPATHY OR RADICULOPA 08/09/2018 ALLISON OLVERA [place] TEXTILE SCREEN MAKER Ot M48.061 SPINAL STENOSIS, LUMBAR REGION WITHOUT N 08/09/2018 ALLISON OLVERA [place] TEXTILE SCREEN MAKER Ot Z90.49 ACQUIRED ABSENCE OF OTHER SPECIFIED PART 08/25/2018 JOVON LING MD Ot Z12.31 ENCNTR SCREEN MAMMOGRAM FOR MALIGNANT NE 08/25/2018 JOVON LING MD Ot R92.8 OTH ABN AND INCONCLUSIVE FINDINGS ON DX 08/25/2018 JOVON LING MD Ot Z12.31 ENCNTR SCREEN MAMMOGRAM FOR MALIGNANT NE 08/26/2018 ALLISON OLVERA [place] TEXTILE SCREEN MAKER Ot D64.9 ANEMIA, UNSPECIFIED 08/26/2018 ALLISON OLVERA [place] TEXTILE SCREEN MAKER Ot K44.9 DIAPHRAGMATIC HERNIA WITHOUT OBSTRUCTION 08/26/2018 ALLISON OLVERA [place] TEXTILE SCREEN MAKER Ot K63.9 DISEASE OF INTESTINE, UNSPECIFIED 08/26/2018 ALLISON OLVERA [place] TEXTILE SCREEN MAKER Ot M47.816 SPONDYLOSIS W/O MYELOPATHY OR RADICULOPA 08/26/2018 ERWIN OLVERAOlga Sims TEXTILE SCREEN MAKER Ot M48.061 SPINAL STENOSIS, LUMBAR REGION WITHOUT N 08/26/2018 ALLISON OLVERA TEXTILE SCREEN MAKER Ot Z90.49 ACQUIRED ABSENCE OF OTHER SPECIFIED PART 08/31/2018 ALLISON OLVERA [place] BUSTILLOSN Ot D64.9 ANEMIA, UNSPECIFIED 08/31/2018 ALLISON OLVERA [place] TEXTILE SCREEN MAKER Ot K44.9 DIAPHRAGMATIC HERNIA WITHOUT OBSTRUCTION 08/31/2018 ALLISON OLVERA [place] TEXTILE SCREEN MAKER Ot K63.9 DISEASE OF INTESTINE, UNSPECIFIED 08/31/2018 ALLISON OLVERA [place] TEXTILE SCREEN MAKER Ot M47.816 SPONDYLOSIS W/O MYELOPATHY OR RADICULOPA 08/31/2018 ALLISON OLVERA [place] TEXTILE SCREEN MAKER Ot M48.061 SPINAL STENOSIS, LUMBAR REGION WITHOUT N 08/31/2018 ALLISON OLVERA [place] TEXTILE SCREEN MAKER Ot Z90.49 ACQUIRED ABSENCE OF OTHER SPECIFIED PART 09/05/2018 ALLISON OLVERA [place] TEXTILE SCREEN MAKER Ot N63.20 UNSPECIFIED LUMP IN THE LEFT BREAST, UNS 09/05/2018 ALLISON OLVERA [place] TEXTILE SCREEN MAKER Ot N64.89 OTHER SPECIFIED DISORDERS OF BREAST 09/14/2018 ANURADHA SOTELO, JOVON Post Ot R92.8 OT ABN AND INCONCLUSIVE FINDINGS ON DX 09/14/2018 ANURADHA SOTELO, JOVON Post Ot Z12.31 ENCNTR SCREEN MAMMOGRAM FOR MALIGNANT NE 09/16/2018 ALLISON OLVERA [place] TEXTILE SCREEN MAKER Ot N63.20 UNSPECIFIED LUMP IN THE LEFT [...] BROOKS Ot I25.10 ATHSCL HEART DISEASE OF [place] CORONARY 09/23/2018 JAZIEL BROOKS Ot I73.9 PERIPHERAL VASCULAR DISEASE, UNSPECIFIED 09/23/2018 JAZIEL BROOKS Ot K21.9 GASTRO-ESOPHAGEAL REFLUX DISEASE WITHOUT 09/23/2018 JAZIEL BROOKS Ot N17.9 ACUTE KIDNEY FAILURE, UNSPECIFIED 09/23/2018 JAZIEL BROOKS Ot N18.9 CHRONIC KIDNEY DISEASE, UNSPECIFIED 09/23/2018 JAZIEL BROOKS Ot R63.4 ABNORMAL WEIGHT LOSS 09/23/2018 JAZIEL BROOKS Ot Z79.82 SPEECH SCIENTIST (CURRENT) USE OF ASPIRIN 09/23/2018 JAZIEL BROOKS Ot Z79.899 OTHER SENIOR CARE (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 THERAPY 09/23/2018 JAZIEL BROOKS Ot Z87.820 PERSONAL HISTORY OF TRAUMATIC BRAIN INJU 09/26/2018 ALLISON OLVERA TEXTILE SCREEN MAKER Ot N63.20 UNSPECIFIED LUMP IN THE LEFT BREAST, UNS 09/26/2018 ALLISON OLVERA TEXTILE SCREEN MAKER Ot N64.89 OTHER SPECIFIED DISORDERS OF BREAST 09/29/2018 ALLISON OLVERA TEXTILE SCREEN MAKER Ot N63.20 UNSPECIFIED LUMP IN THE LEFT BREAST, UNS 09/29/2018 ALLISON OLVERA TEXTILE SCREEN MAKER Ot N64.89 OTHER SPECIFIED DISORDERS OF BREAST [...] BROOKS Ot I25.10 ATHSCL HEART DISEASE OF [place] CORONARY 09/29/2018 JAZIEL BROOKS Ot I73.9 PERIPHERAL VASCULAR DISEASE, UNSPECIFIED 09/29/2018 JAZIEL BROOKS Ot K21.9 GASTRO-ESOPHAGEAL REFLUX DISEASE WITHOUT 09/29/2018 JAZIEL BROOKS Ot N17.9 ACUTE KIDNEY FAILURE, UNSPECIFIED 09/29/2018 JAZIEL BROOKS Ot N18.9 CHRONIC KIDNEY DISEASE, UNSPECIFIED 09/29/2018 JAZIEL BROOKS Ot R63.4 ABNORMAL WEIGHT LOSS 09/29/2018 JAZIEL BROOKS Ot Z79.82 SENIOR CARE (CURRENT) USE OF ASPIRIN 09/29/2018 JAZIEL BROOKS Ot Z79.899 OTHER SENIOR CARE (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 THERAPY 09/29/2018 JAZIEL BROOKS Ot Z87.820 PERSONAL HISTORY OF TRAUMATIC BRAIN INJU 10/04/2018 ALLISON OLVERA TEXTILE SCREEN MAKER Ot N63.20 UNSPECIFIED LUMP IN THE LEFT BREAST, UNS 10/19/2018 ALLISON OLVERA TEXTILE SCREEN MAKER Ot N63.20 UNSPECIFIED LUMP IN THE LEFT [...] AND INCONCLUSIVE FINDINGS ON DX 11/02/2018 INDIA BARROW MD Ot E78.5 HYPERLIPIDEMIA, UNSPECIFIED 11/02/2018 INDIA BARROW MD Ot I1 0 ESSENTIAL (PRIMARY) HYPERTENSION 11/02/2018 INDIA BARROW MD Ot I25.10 ATHSCL HEART DISEASE OF [place] CORONARY 11/02/2018 INDIA BARROW MD Ot K57.30 DVRTCLOS OF LG INT W/O PERFORATION OR AB 11/02/2018 INDIA BARROW MD Ot K63.5 POLYP OF COLON 11/02/2018 INDIA BARROW MD Ot Z12.11 ENCOUNTER FOR SCREENING FOR MALIGNANT NE 11/02/2018 INDIA BARROW MD Ot Z79.899 OTHER SPEECH SCIENTIST (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 THERAPY 11/02/2018 INDIA BARROW MD Ot Z01.818 ENCOUNTER FOR OTHER PREPROCEDURAL EXAMIN 11/02/2018 INDIA BARROW MD Ot Z12.11 ENCOUNTER FOR SCREENING FOR MALIGNANT NE 11/02/2018 LOLLY SUTTON APRN Ot R92.8 OTH ABN AND INCONCLUSIVE FINDINGS ON DX 11/02/2018 LOLLY SUTTON TEXTILE SCREEN MAKER Ot M11.261 OTHER CHONDROCALCINOSIS, RIGHT KNEE 11/02/2018 LOLLY SUTTON TEXTILE SCREEN MAKER Ot M11.262 OTHER CHONDROCALCINOSIS, LEFT KNEE 11/02/2018 COURTNEY SOTELO, BELINDA Gomez Ot E04 .2 NONTOXIC MULTINODULAR GOITER 11/02/2018 LOLLY SUTTON TEXTILE SCREEN MAKER Ot R92.8 OTH ABN AND INCONCLUSIVE FINDINGS ON DX 11/02/2018 LOLLY SUTTON TEXTILE SCREEN MAKER Ot M41.9 SCOLIOSIS, UNSPECIFIED 11/02/2018 LOLLY SUTTON TEXTILE SCREEN MAKER Ot M47.816 SPONDYLOSIS W/O MYELOPATHY OR RADICULOPA 11/02/2018 LOLLY SUTTON APRN Ot M79.605 PAIN IN LEFT LEG 11/02/2018 LOLLY SUTTON TEXTILE SCREEN MAKER Ot R90.82 WHITE MAT[place] DISEASE, UNSPECIFIED 11/02/2018 LOLLY SUTTON TEXTILE SCREEN MAKER Ot W19.XXXA UNSPECIFIED FALL, INITIAL ENCOUNTER 11/02/2018 DAMION, JUDY J PROCEDURE RN Ot E04.2 NONTOXIC MULTINODULAR GOITER 11/02/2018 COURTNEY SOTELO, BELINDA P Ot E04 .1 NONTOXIC SINGLE THYROID NODULE 11/02/2018 ANURADHA SOTELO, OJVON Post Ot R92.8 OT ABN AND INCONCLUSIVE FINDINGS ON DX 11/02/2018 ANURADHA SOTELO, JOVON Post Ot Z12.31 ENCNTR SCREEN MAMMOGRAM FOR MALIGNANT NE 11/02/2018 ALLISON OLVERA TEXTILE SCREEN MAKER Ot D64.9 ANEMIA, UNSPECIFIED 11/02/2018 ALLISON OLVERA TEXTILE SCREEN MAKER Ot K44.9 DIAPHRAGMATIC HERNIA WITHOUT OBSTRUCTION 11/02/2018 ALLISON OLVERA TEXTILE SCREEN MAKER Ot K63.9 DISEASE OF INTESTINE, UNSPECIFIED 11/02/2018 ALLISON OLVERA TEXTILE SCREEN MAKER Ot M47.816 SPONDYLOSIS W/O MYELOPATHY OR RADICULOPA 11/02/2018 ALLISON OLVERA TEXTILE SCREEN MAKER Ot M48.061 SPINAL STENOSIS, LUMBAR REGION WITHOUT N 11/02/2018 ALLISON OLVERA TEXTILE SCREEN MAKER Ot Z90.49 ACQUIRED ABSENCE OF OTHER SPECIFIED [...] N Ot I25.10 ATHSCL HEART DISEASE OF [place] CORONARY 11/02/2018 JAZIEL BROOKS N Ot I73.9 PERIPHERAL VASCULAR DISEASE, UNSPECIFIED 11/02/2018 JAZIEL BROOKS N Ot K21.9 GASTRO-ESOPHAGEAL REFLUX DISEASE WITHOUT 11/02/2018 JAZIEL BROOKS N Ot N17.9 ACUTE KIDNEY FAILURE, UNSPECIFIED 11/02/2018 JAZIEL BROOKS N Ot N18.9 CHRONIC KIDNEY DISEASE, UNSPECIFIED 11/02/2018 JAZIEL BROOKS Ot R63.4 ABNORMAL WEIGHT LOSS 11/02/2018 JAZIEL BROOKS Ot Z79.82 SPEECH SCIENTIST (CURRENT) USE OF ASPIRIN 11/02/2018 JAZIEL BROOKS Ot Z79.899 OTHER SPEECH SCIENTIST (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 THERAPY 11/02/2018 JAZIEL BROOKS Ot Z87.820 PERSONAL HISTORY OF TRAUMATIC BRAIN INJU 11/02/2018 ALLISON OLVERA TEXTILE SCREEN MAKER Ot N63.20 UNSPECIFIED LUMP IN THE LEFT BREAST, UNS 11/02/2018 ALLISON OLVERA TEXTILE SCREEN MAKER Ot N64.89 OTHER SPECIFIED DISORDERS OF BREAST 11/02/2018 ALLISON OLVERA TEXTILE SCREEN MAKER Ot N63.20 UNSPECIFIED LUMP IN THE LEFT [...] BROOKS Ot I25.10 ATHSCL HEART DISEASE OF [place] CORONARY 11/03/2018 JAZIEL BROOKS Ot I73.9 PERIPHERAL VASCULAR DISEASE, UNSPECIFIED 11/03/2018 JAZIEL BROOKS Ot K21.9 GASTRO-ESOPHAGEAL REFLUX DISEASE WITHOUT 11/03/2018 JAZIEL BROOKS Ot N17.9 ACUTE KIDNEY FAILURE, UNSPECIFIED 11/03/2018 JAZIEL BROOKS Ot N18.9 CHRONIC KIDNEY DISEASE, UNSPECIFIED 11/03/2018 JAZIEL BROOKS Ot R63.4 ABNORMAL WEIGHT LOSS 11/03/2018 JAZIEL BROOKS Ot Z79.82 SPEECH SCIENTIST (CURRENT) USE OF ASPIRIN 11/03/2018 JAZIEL BROOKS Ot Z79.899 OTHER SENIOR CARE (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 THERAPY 11/03/2018 JAZIEL BROOKS Ot [...] UNSPECIFIED CHRONIC GASTRITIS WITHOUT BL 11/09/2018 GIAN BROWN MD, Ot K44.9 DIAPHRAGMATIC HERNIA WITHOUT OBSTRUCTION 11/09/2018 GIAN BROWN MD, Ot K59.00 CONSTIPATION, UNSPECIFIED 11/09/2018 GIAN BROWN MD, Ot K64.1 SECOND DEGREE HEMORRHOIDS 11/09/2018 GIAN BROWN MD, Ot L40.9 PSORIASIS, UNSPECIFIED 11/09/2018 KIDO MD, TAKAAKI Ot M19.91 PRIMARY OSTEOARTHRITIS, UNSPECIFIED SITE 11/09/2018 GIAN BROWN MD, Ot Z79.82 SENIOR CARE (CURRENT) USE OF ASPIRIN 11/09/2018 GIAN BROWN MD, Ot Z79.89 9 OTHER SENIOR CARE (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 THERAPY 11/09/2018 GIAN BROWN MD, [...] SITE 11/11/2018 GIAN BROWN MD, Ot Z79.82 SPEECH SCIENTIST (CURRENT) USE OF ASPIRIN 11/11/2018 GIAN BROWN MD, Ot Z79.89 9 OTHER SENIOR CARE (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 THERAPY 11/11/2018 GIAN BROWN MD, [...] SITE 11/16/2018 GIAN BROWN MD, Ot Z79.82 SPEECH SCIENTIST (CURRENT) USE OF ASPIRIN 11/16/2018 GIAN BROWN MD, Ot Z79.89 9 OTHER SENIOR CARE (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 THERAPY 11/16/2018 GIAN BROWN MD, [...] Rd Ot I25.10 ATHSCL HEART DISEASE OF [place] CORONARY 11/17/[address] Ot I73.9 PERIPHERAL VASCULAR DISEASE, UNSPECIFIED 11/17/[address] Ot K21.9 GASTRO-ESOPHAGEAL REFLUX DISEASE WITHOUT 11/17/[address] Ot N17.9 ACUTE KIDNEY FAILURE, UNSPECIFIED 11/17/[address] Ot N18.9 CHRONIC KIDNEY DISEASE, UNSPECIFIED 11/17/[address] Ot R63.4 ABNORMAL WEIGHT LOSS 11/17/[address] Ot Z79.82 SENIOR CARE (CURRENT) USE OF ASPIRIN 11/17/[address] Ot Z79.899 OTHER SPEECH SCIENTIST (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 THERAPY 11/17/[address] [...] MD Ot I25.10 ATHSCL HEART DISEASE OF [place] CORONARY 11/17/2018 FAIZA BUTTERFIELD MD Ot K21 [...] AG 11/17/2018 FAIZA BUTTERFIELD MD, Ot Z79.52 SENIOR CARE (CURRENT) USE OF SYSTEMIC STER 11/17/2018 FAIZA BUTTERFIELD MD, Ot Z79.82 SENIOR CARE (CURRENT) USE OF ASPIRIN 11/17/2018 FIAZA BUTTERFIELD MD, Ot Z80 .0 FAMILY HISTORY [...] MD Ot I25.10 ATHSCL HEART DISEASE OF [place] CORONARY 11/21/2018 FAIZA BUTTERFIELD MD, Ot K21 [...] AG 11/21/2018 FAIZA BUTTERFIELD MD, Ot Z79.52 SPEECH SCIENTIST (CURRENT) USE OF SYSTEMIC STER 11/21/2018 FAIZA BUTTERFIELD MD, Ot Z79.82 SPEECH SCIENTIST (CURRENT) USE OF ASPIRIN 11/21/2018 FAIZA BUTTERFIELD [...] Rd Ot I25.10 ATHSCL HEART DISEASE OF [place] CORONARY 11/23/[address] Ot I73.9 PERIPHERAL VASCULAR DISEASE, UNSPECIFIED 11/23/[address] Ot K21.9 GASTRO-ESOPHAGEAL REFLUX DISEASE WITHOUT 11/23/[address] Ot N17.9 ACUTE KIDNEY FAILURE, UNSPECIFIED 11/23/[address] Ot N18.9 CHRONIC KIDNEY DISEASE, UNSPECIFIED 11/23/[address] Ot R63.4 ABNORMAL WEIGHT LOSS 11/23/[address] Ot Z79.82 SENIOR CARE (CURRENT) USE OF ASPIRIN 11/23/[address] Ot Z79.899 OTHER SPEECH SCIENTIST (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 THERAPY 11/23/[address] [...] On 37.22 10/06/2010 88.53 10/06/2010 88.56 10/06/2010 [id number] ROUT INE VENIPUNCTURE 05/03/2012 24706 CBC 05/03/2012 59309 LIPI D PANEL 05/03/2012 93456 CMP 05/03/2012 [id number] GF R CALC (RESULT ONLY) 05/03/2012 49211 TOPI RAMATE (TOPAMAX) 05/05/2012 28695 LEVKetty TIRACETAM (KEPPRA) LEVEL 05/06/2012 Cardiolog Sage Tuttle 11/15/2012 66477 MAMM OGRAM, SCREENING 03/30/2013 51793 CBC 03/30/2013 Obstetric Fenech, Belinda 05/02/2013 Results [...] 165 10^3u 142-424 MPV 10.8 FL 9.4-12.4 Pierce # 0.84 10^3u 0.0-1.0 RBC 4.01 10^6u 4.04-6.13 Pierce % 14.7 % 0-12 RDW 12.8 % [...] Urobilinogen 0.2 0.2-1.0 Urine RBC N0-2 Specific [place] 1.010 1.010-1.020 Urine WBC N3-5 Blood Trace Negative Color Yellow Yellow Squamous Epithelial Cells Trace Bilirubin Negative Negative Site VOID EKG - 06/22/16 04:26 EKG [facility] COMPLETE BLOOD COUNT - 06/23/16 05:54 Platelet 153 10^3u 142-424 MPV 10.6 FL 9.4-12.4 Pierce # 0.97 10^3u 0.0-1.0 RBC 3.81 10^6u 4.04-6.13 Pierce % 11.8 % 0-12 RDW 12.5 % [...] 160 10^3u 142-424 MPV 10.1 FL 9.4-12.4 Pierce # 0.65 10^3u 0.0-1.0 RBC 3.89 10^6u 4.04-6.13 Pierce % 13.3 % 0-12 RDW 12.6 % [...] Human Rhinovirus 4 ND Not Detecte d [id number] ND Not Detected FluA-H1-ford ND Not Detected [...] 123 10^3u 142-424 MPV 10.8 FL 9.4-12.4 Pierce # 0.84 10^3u 0.0-1.0 RBC 4.05 10^6u 4.04-6.13 Pierce % 15.9 % 0-12 RDW 13.0 % [...] A AND B ANTIGENS BY IA BANNER Comprehensive metabolic panel - 08/24/17 12:45 Serum [...] NRG Blood erythrocyte morphology finding identification NORMAL BANNER Comprehensive metabolic panel - 11/24/17 20:35 Serum [...] g/dL 3.2-4.5 CALCIUM CORRECTED 10.3 mg/dL 8.5-10.1 [id number] - 05/15/18 15:09 [id number] 79.6 ug/mL 50.0-100.0 Serum or plasma lithium [...] culture - 05/15/18 15:16 Bacterial urine culture [id number] NRG COLONY COUNT >100,000/ML NRG FTX;REPORTABLE [facility] SENT ID REPORT 05/16 16:05 NRG FREE TEXT ENTRY 2 SENSITIVITY REPORTED 05/17 09:05 NRG [facility] Sensitivity Panel - 05/15/18 15:16 Gentamicin susceptibility [...] and clavulanate potassium susc JUSTIN = NRG Complete blood count (CBC) with automate d white blood cell (WBC) differential - 11/14/19 12:52 Blood leukocytes automated count (number/volume) 11.6 10*3/uL 4.3-11.0 Blood erythrocytes automated count (number/volume) 4.34 10*6/uL 4.35-5.85 Venous blood hemoglobin measurement (mass/volume) 15.2 g/dL 11.5-16.0 Blood hematocrit (volume fraction) 43 % 35-52 Automated erythrocyte mean corpuscular volume 99 [ foz_us] 80-99 Automated erythrocyte mean corpuscular h emoglobin (mass per erythrocyte) 35 pg 25-34 Automated erythrocyte mean corpuscular h emoglobin concentration measurement (mass/volume) 35 g/dL 32-36 Automated erythrocyte distribution width ratio 13. 9 % 10.0- 14.5 Automated blood platelet count (count/volume) 140 10*3/uL 130-400 Automated blood platelet mean volume measurement 11.1 [foz_us] 7.4-10.4 Automated blood neutrophils/100 leukocytes 65 % 42-75 Automated blood lymphocytes/100 leukocytes 14 % 12-44 Blood monocytes/100 leukocytes 20 % 0-12 Automated blood eosinophils/100 leukocytes 0 % 0-10 Automated blood basophils/100 leukocytes 0 % 0-10 Blood neutrophils automated count (number/volume) 7.5 10*3 1.8-7.8 Blood lymphocytes automated count (number/volume) 1.6 10*3 1.0-4.0 Blood monocytes automated count (number/volume) 2. 3 10*3 0.0-1.0 Automated eosinophil count 0.1 10*3/uL 0 .0-0.3 Automated blood basophil count (count/volume) 0.1 10*3/uL 0.0-0.1 Comprehensive metabolic panel - 11/14/19 12:52 Serum or plasma sodium measurement (moles/volume) 137 mmol/L 135-145 Serum or plasma potassium measurement (moles/volume) 3.8 mmol/L 3.6-5.0 Serum or plasma chloride measurement (moles/volume) 95 mmol/L 98-107 Carbon dioxide 24 mmol/L 21-32 Serum or plasma anion gap determination (moles/volume) 18 mmol/L 5-14 Serum or plasma urea nitrogen measurement (mass/volume ) 39 mg/dL 7-18 Serum or plasma creatinine measurement (mass/volume) 2.63 mg/dL 0.60-1.30 Serum or plasma urea nitrogen/creatinine mass ratio 15 NRG Serum or plasma creatinine measurement w ith calculation of estimated glomerular filtration rate 18 NRG Serum or plasma glucose measurement (mass/volume) 83 mg/dL 70-105 Serum or plasma calcium measurement (mass/volume) 9.7 mg/dL 8.5-10.1 Serum or plasma total bilirubin measurement (mass/volu me) 0.7 mg/dL 0.1-1.0 Serum or plasma alkaline phosphatase olimpia surement (enzymatic activity/volume) 112 U/L 40-136 Serum or plasma aspartate aminotransfera se measurement (enzymatic activity/volume) 194 U/L 5-34 Serum or plasma alanine aminotransferase measurement (enzymatic activity/volume) 58 U/L 0-55 Serum or plasma protein measurement (mass/volume) 7.2 g/dL 6.4-8.2 Serum or plasma albumin measurement (mass/volume) 3.7 g/dL 3.2-4.5 CALCIUM CORRECTED 9.9 mg/dL 8.5-10.1 Blood lactic acid measurement (moles/vol ume) - 11/14/19 12:52 Blood lactic acid measurement (moles/volume) 5.98 mmol/L 0.50-2.00 [id number] - 11/14/19 12:52 [id number] 124.6 ug/mL 50.0-100.0 Manual absolute plasma cell count - 11/02 08/24 12:52 Blood monocytes/100 leukocytes 22 % NRG Manual blood segmented neutrophils/100 leukocytes 62 % NRG Blood band neutrophils/100 leukocytes 3 % NRG Manual blood lymphocytes/100 leukocytes 12 % NRG Manual eosinophils/100 leukocytes in nose 1 % NRG Manual blood basophils/100 leukocytes 0 % NRG Blood erythrocyte morphology finding identification NORMAL NRG Encounters ACCT No. Visit Date/Time Discharge Status Pt. Type Provider Facility Loc./Unit Complaint [id number] 04/27/2018 13:35:00 05/10/2018 11:40 :00 DIS Inpatient LEI VILLEGAS MD [facility] [id number] 06/18/2016 16:30:00 07/02/2016 11:10 :00 DIS Inpatient LEI VILLEGAS MD [facility] [id number] 05/16/2018 15:34:00 Document Registration [id number] 09/20/2014 16:35:00 09/20/2014 23:59: 59 CLS Outpatient VANESSA PERES MD [id number] 05/18/2014 14:27:00 05/18/2014 23:59: 59 CLS Outpatient VANESSA PERES MD [id number] 02/02/2014 11:18:00 02/02/2014 23:59: 59 CLS Outpatient VANESSA PERES MD [id number] 08/21/2013 07:12:00 08/21/2013 23:59: 59 CLS Outpatient AUGUSTUS STANLEY DO [id number] 05/22/2013 09:45:00 05/22/2013 23:59: 59 CLS Outpatient AUGUSTUS STANLEY DO [id number] 05/16/2013 10:13:00 05/16/2013 23:59: 59 CLS Outpatient AUGUSTUS STANLEY DO [id number] 05/02/2013 09:47:00 05/02/2013 23:59: 59 CLS Outpatient VANESSA PERES MD [id number] 03/30/2013 13:07:00 03/30/2013 23:59: 59 CLS Outpatient VANESSA PERES MD [id number] 08/26/2012 10:02:00 08/26/2012 23:59: 59 CLS Outpatient VANESSA PERES MD [id number] 08/16/2012 13:36:00 08/16/2012 23:59: 59 CLS Outpatient [id number] 07/07/2012 14:39:00 07/07/2012 23:59: 59 [place] [id number] 05/03/2012 10:07:00 05/03/2012 23:59:5 9 CLS Outpatient [id number] 11/10/2012 13:55:00 Document Registration [id number] 11/10/2019 08:47:00 10:10:00 DIS Emergency THERESE FINN MD [facility] ER FALL [id number] 03/16/2019 13:03:00 23:59:59 CLS Outpatient JOVON LING MD [facility] RAD LUMP IN LEFT BREAST [id number] 11/18/2018 00:14:00 23:59:59 CLS Preadmit JAZIEL BROOKS [facility] ONC [id number] 11/17/2018 08:31:00 11:07:00 DIS Emergency FAIZA BUTTERFIELD MD [facility] ER FALL/LEFT HIP PAIN [id number] 09/06/2018 13:38:00 00:01:00 DIS Outpatient JAZIEL BROOKS V [facility] ONC [id number] 11/09/2018 09:17:00 13:00:00 DIS Outpatient GIAN BROWN MD [facility] ENDO WT LOSS/NAUSEA/RUQ PAIN [id number] 11/07/2018 05:41:00 23:59:59 CLS Outpatient GIAN BROWN MD [facility] PREOP COLONOSCOPY/EGD [id number] 09/07/2018 08:34:00 23:59:59 CLS Outpatient ALLISON OLVERA APRN [facility] RAD BREAST LUMP [id number] 09/01/2018 08:39:00 23:59:59 CLS Outpatient ALLISON OLVERA APRN [facility] RAD BREAST LUMP [id number] 08/25/2018 09:47:00 23:59:59 CLS Outpatient JOVON LING MD [facility] RAD SCREENING [id number] 08/05/2018 11:36:00 23:59:59 CLS Outpatient ALLISON OLVERA APRN [facility] RAD ABNORMAL WEIGHT LOSS [id number] 08/02/2018 14:15:00 23:59:59 CLS Preadmit BELINDA VALDEZ MD [facility] RAD THYROID NODULE [id number] 05/15/2018 14:57:00 17:52:00 DIS Emergency MACY GLYNN MD [facility] ER FALL [id number] 12/14/2017 09:34:00 08:56:00 DIS Outpatient LOLLY SUTTON APRN [facility] REHAB GENERAL WEKANESS;ABNOR MAL GAIT;PAIN IN R LEG [id number] 12/16/2017 09:30:00 23:59:59 CLS Outpatient BELINDA VALDEZ MD [facility] RAD THYROID NODULE [id number] 12/07/2017 20:59:00 23:26:00 DIS Emergency RYAN VALENZUELA TEXTILE SCREEN MAKER [facility] ER TROUBLE URINATING [id number] 11/25/2017 01:25:00 018 08:55:00 DIS Emergency THERESE FINN MD [facility] ER CP,MARTINEZ,LEFT ARM LEG PAIN [id number] 11/24/2017 21:46:00 018 23:59:00 DIS Inpatient DADA SANDOVAL DO, V ia [facility] ICU CHEST PAIN;HTN;DEMENTIA [id number] 11/12/2017 10:23:00 018 23:59:59 CLS Outpatient JUDY BRUNO PROCEDURE RN [facility] RAD MUTLINODULAR GO ITER [id number] 09/02/2017 09:51:00 018 23:59:59 CLS Outpatient LOLLY SUTTON APRN [facility] RAD R51,M54.5,M79.604 [id number] 08/24/2017 12:29:00 018 15:59:00 DIS Emergency THERESE FINN MD [facility] ER CP,DIZZINESS,SW EATY [id number] 08/04/2017 13:13:00 018 23:59:59 CLS Outpatient LOLLY SUTTON APRN [facility] RAD R92.8 ABN MAMMO [id number] 07/06/2017 12:35:00 018 23:59:59 CLS Outpatient BELINDA VALDEZ MD [facility] RAD THYROID NODULES [id number] 06/02/2017 06:03:00 017 09:36:00 DIS Emergency MACY GLYNN MD [facility] ER FALL [id number] 04/22/2017 08:13:00 017 23:59:59 CLS Outpatient LOLLY SUTTON APRN [facility] RAD M81.0 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 WO CURRENT PATHOLOG [id number] 02/01/2017 08:01:00 017 23:59:59 CLS Outpatient LOLLY SUTTON TEXTILE SCREEN MAKER [facility] RAD R92.8 [id number] 12/07/2016 07:22:00 017 23:59:59 CLS Outpatient INDIA BARROW MD [facility] ENDO SCREENING [id number] 12/03/2016 05:56:00 017 23:59:59 CLS Outpatient INDIA BARROW MD [facility] PREOP SCREENING COLONOSCOPY [id number] 10/05/2016 08:06:00 017 23:59:59 CLS Outpatient JOVON LING MD [facility] RAD ABNORMAL MAMMO [id number] 09/30/2016 20:33:00 017 11:20:00 DIS Inpatient DADA SANDOVAL DO, V ia [facility] 4TH RUQ PAIN;DEHYDRATION;EL ECTROLYTE IMBALANCE; [id number] 08/26/2016 20:20:00 017 23:20:00 DIS Emergency SOLIS PIRES MD [facility] ER NAUSEA [id number] 08/24/2016 14:39:00 017 23:59:59 CLS Outpatient JOVON LING MD [facility] RAD SCREENING [id number] 08/03/2016 08:33:00 017 11:31:00 DIS Emergency FABIOLA HERNANDEZ DO [facility] ER FALL/HEAD PAIN [id number] 06/18/2016 05:48:00 016 23:59:59 CLS Outpatient INDIA BARROW [facility] [place] PRE[facility] DIARRHEA [id number] 06/10/2016 20:09:00 016 23:15:00 DIS Emergency RYAN VALENZUELA APRN [facility] [place] ER SOB [id number] 05/01/2016 05:38:00 016 14:13:00 DIS Outpatient INDIA BARROW MD [facility] [place] PREOP SCREENING [id number] 10/13/2015 21:41:00 016 20:10:00 DIS Inpatient RAE BUTLER MD [facility] [place] 4TH CHEST PAIN [id number] 06/07/2015 14:46:00 015 23:59:59 CLS Outpatient BELINDA RIVERA DO [facility] [place] RAD SCREENING [id number] 09/07/2013 07:47:00 014 23:59:59 CLS Outpatient ROZ SOTELO FACC, TEAGAN HARGROVEP CC DS [facility] [place] RAD ABD BLOATIN G [id number] 08/02/2013 07:34:00 014 23:59:59 CLS Outpatient BRANDIE SOTELO, INGA Oleary [facility] [place] RAD CAD,GERD,HTN [id number] 07/21/2013 20:15:00 014 11:30:00 DIS Inpatient JADEN AUGUSTUS V ia [facility] [place] CSD CHEST PAIN [id number] 05/24/2013 09:43:00 013 23:59:59 CLS Outpatient BELINDA RIVERA DO [facility] [place] RAD PELVIC PAIN, SCREENING [id number] 11/14/2019 13:08:00 Document Registration [id number] 10/05/2015 03:05:00 Document Registration [id number] 10/17/2012 11:00:00 Document Registration [id number] 07/18/2012 10:37:00 Document Registration [id number] 01/29/2012 08:28:00 Document Registration [id number] 10/21/2011 12:49:00 Document Registration [id number] 06/18/2011 15:26:00 Document Registration [id number] 06/16/2011 08:42:00 Document Registration [id number] 04/06/2011 10:15:00 Document Registration [id number] 10/06/2010 12:25:00 Document Registration [id number] 05/07/2010 08:07:00 Document Registration [id number] 10/24/2017 00:06:00 Document Registration
[2019-11-14] MEDS ORDERED: LACTATED RINGERS 1,000 ML IV ONE (15:08)
[2019-11-14] MEDS ORDERED: ACETAMINOPHEN 325 MG TABLET PO PRN (15:30)
[2019-11-14] MEDS ORDERED: CATHETER FLUSH 10 ML SYR IV PRN (15:30)
[2019-11-14] MEDS ORDERED: LORazepam INJ 2 MG/ML (ATIVAN) VIAL IV PRN (15:30)
[2019-11-14] MEDS ORDERED: FURO80TA3 PO (15:48)
[2019-11-14] MEDS ORDERED: VITA-235 PO (15:49)
[2019-11-14] MEDS ORDERED: CLOB50SO TP (15:49)
[2019-11-14] MEDS ORDERED: TOPI50TA13 PO (15:49)
[2019-11-14] MEDS ORDERED: QUET150T3 PO (15:49)
[2019-11-14] MEDS ORDERED: DIVA500T15 PO (15:49)
[2019-11-14] MEDS ORDERED: CLOB118S3 TOP (15:49)
[2019-11-14] MEDS ORDERED: ASCO10006 PO (15:49)
--- NOTE | 2019-11-14 15:52 | NUR ---
ENTERED THE MED REC USING THE ORDER REPORT FROM JIMMIE DELATORRE IN CLIO
[2019-11-14] MEDS ORDERED: ENOXAPARIN 30 MG/0.3 ML (LOVENOX) SYR SC SCH (16:00)
[2019-11-14] MEDS: LACTATED RINGERS 1,000 ML IV SCH ×2 (16:58→23:30)
[2019-11-14] MEDS ORDERED: RT-ALBUTEROL SULF 2.5 MG/3 ML PRE-MIX VIAL INH PRN (17:00)
[2019-11-15] VITALS (13 sets, daily range): BP systolic 100–138; BP diastolic 54–98
[2019-11-15 00:29] LABS: BILIRUBIN,URINE NEGATIVE (NEGATIVE); CLARITY,URINE CLEAR; COLOR,URINE YELLOW; GLUCOSE, URINE (UA) NEGATIVE (NEGATIVE); KETONES,URINE NEGATIVE (NEGATIVE); LEUKOCYTE ESTERASE ,URINE NEGATIVE (NEGATIVE); NITRITE,URINE NEGATIVE (NEGATIVE); PH,URINE 5.5 (5-9); PROTEIN,URINE NEGATIVE (NEGATIVE)
[2019-11-15 00:44] LABS: BACTERIA,URINE NEGATIVE /HPF; RBC,URINE RARE /HPF; SQUAMOUS EPITHELIAL CELL,UR RARE /HPF
--- NOTE | 2019-11-15 03:15 | NUR ---
This RN entered patient's room and found juan catheter pulled out. Patient states "this thing keeps me from pooping, so I took it out". Patient has attempted to have a bowel movement through out shift and placed on bedpan. Colace ordered for the patient to help with bowel movement. Patient reoriented to plan of care, patient is confused at times about situation and time. Will continue to monitor.
[2019-11-15] MEDS: DOCUSATE SODIUM 100 MG (COLACE) CAP PO SCH ×3 (03:57→19:26)
[2019-11-15 04:19] LABS: BASOPHILS % (AUTO) 0 % (0-10); EOSINOPHILS # (AUTO) 0.1 10^3/uL (0.0-0.3); EOSINOPHILS % (AUTO) 1 % (0-10); HEMATOCRIT 35 % (35-52); HEMOGLOBIN 12.4 G/DL (11.5-16.0); LYMPHOCYTES % (AUTO) 27 % (12-44); MEAN CORPUSCULAR HEMOGLOBIN 37 PG (25-34); MEAN CORPUSCULAR HGB CONC 36 G/DL (32-36); MEAN CORPUSCULAR VOLUME 104 FL (80-99); MEAN PLATELET VOLUME 11.3 FL (7.4-10.4); MONOCYTES % (AUTO) 14 % (0-12); NEUTROPHILS # (AUTO) 4.2 X 10^3 (1.8-7.8); NEUTROPHILS % (AUTO) 58 % (42-75); PLATELET COUNT 46 10^3/uL (130-400); RED CELL DISTRIBUTION WIDTH 13.9 % (10.0-14.5); WHITE BLOOD COUNT 7.3 10^3/uL (4.3-11.0)
[2019-11-15 04:26] LABS: POTASSIUM 4.2 MMOL/L (3.6-5.0)
[2019-11-15 04:32] LABS: CREATININE SERUM 1.47 MG/DL (0.60-1.30); PHOSPHORUS 2.2 MG/DL (2.3-4.7)
[2019-11-15 04:35] LABS: MAGNESIUM 2.3 MG/DL (1.6-2.4)
[2019-11-15] MEDS ORDERED: CEFEPIME 1,000 MG/SWFI 10 ML IV PUSH IV SCH ×4 (05:00→14:00)
[2019-11-15] MEDS ORDERED: FLEET ENEMA ADULT 1 EA BTL ONE ×2 (05:51→06:11)
--- NOTE | 2019-11-15 05:56 | Pulmonary Consultation ---
History of Present Illness History of Present Illness Date Seen by Provider: November 15, 2019 Time Seen by Provider: 05:50 Date of Admission History of Present Illness 69yo with hx of traumatic brain injury, seizure disorder presented [facility] ED [facility] secondary to acute seizures. Pt takes Depakote as out however has been held secondary to elevated levels over last couple days. Denies N/V/D denies CP, SOB, and abd pain. I am consulted for ICU management. Allergies and Home Medications Allergies Coded Allergies: Penicillins (Verified Allergy, Mild, 07/22/13) latex (Verified Allergy, Mild, 07/22/13) Home Medications Ascorbic Acid 1,000 Mg Tablet, 1,000 MG PO DAILY, (Reported) Aspirin 81 Mg Tablet.dr, 81 MG PO DAILY, (Reported) Atorvastatin Calcium 80 Mg Tablet, 80 MG PO HS, (Reported) Cefdinir 300 Mg Capsule, 300 MG PO BID Prescribed by: DWAYNE ROSS on 11/16/19 1121 Clobetasol Propionate 118 Ml Shampoo, 1 APPLIC TOP Q72H, (Reported) Clobetasol Propionate 50 Ml Solution, 1 APPLIC TP BID, (Reported) APPLY TO THE SCALP Divalproex Sodium 250 Mg Tab.er.24h, 250 MG PO BID Prescribed by: DWAYNE ROSS on 11/16/19 112 Duloxetine HCl 60 Mg Capsule.dr, 60 MG PO DAILY, (Reported) Furosemide 80 Mg Tablet, 80 MG PO DAILY, (Reported) Lactulose 10 Gm/15 Ml Solution, 30 ML PO DAILY PRN for CONSTIPATION-1ST LINE, (Reported) Levetiracetam 1,000 Mg Tablet, 1,000 MG PO BID, (Reported) Melatonin 3 Mg Tablet, 3 MG PO HS, (Reported) Meloxicam 15 Mg Tablet, 15 MG PO DAILY, (Reported) Oxybutynin Chloride 15 Mg Tab.er.24, 15 MG PO HS, (Reported) Pantoprazole Sodium 40 Mg Tablet.dr, 40 MG PO DAILY, (Reported) Polyethylene Glycol 3350 17 Gm Powd.pack, 17 GM PO DAILY PRN for CONSTIPATION- 2ND LINE, (Reported) Prednisolone Acetate 5 Ml Drops.susp, 1 DROP OU Q48H, (Reported) Prednisone 10 Mg Tab, 10 MG PO DAILY, (Reported) Quetiapine Fumarate 150 Mg Tab.er.24h, 150 MG PO HS, (Reported) Spironolactone 100 Mg Tablet, 100 MG PO DAILY, (Reported) Topiramate 50 Mg Tablet, 50 MG PO BID, (Reported) Vitamin E (Dl,Tocopheryl Acet) 400 Unit Capsule, 400 UNIT PO DAILY, (Reported) Past Ysqmxen-Jiyoeu-Oeunji Hx Patient Social History Alcohol Use: Denies Use Recreational Drug Use: No Smoking Status: Former Smoker Type Used: Cigarettes Former Smoker, Quit: Jul 05, 2013 2nd Hand Smoke Exposure: Yes Recent Foreign Travel: No Contact w/Someone Who Travel: No Recent Infectious Disease Expo: No Recent Hopitalizations: No Physical Abuse: No Sexual Abuse: No Immunizations Up To Date Tetanus Booster (TDap): Unknown Date of Influenza Vaccine: Apr 11, 2018 Seasonal Allergies Seasonal Allergies: No Past Medical History Surgeries: Yes Gallbladder, Lumpectomy Respiratory: Yes (BRONCHITIS) Chronic Bronchitis Currently Using CPAP: No Cardiac: Yes Chronic Edema/Swelling, Coronary Artery Disease, High Cholesterol, Hypertension, Rheumatic Fever Neurological: Yes (ENCEPHALITIS, restless leg syndrome) Concussion, Dementia, Seizure Disorder, Traumatic Brain Injury, Vertigo Reproductive Disorders: No Female Reproductive Disorders: Denies Sexually Transmitted Disease: No HIV/AIDS: No Genitourinary: Yes (CHRONIC RENAL INSUFFICIENCY; BLADDER CONTROL ISSUES?) Gastrointestinal: Yes ("STOMACH DISCOMFORT"--POST-CHOLECYSTECTOMY SYNDROME) Gastroesophageal Reflux, Chronic Constipation, Chronic Diarrhea, Gall Bladder Disease, Irritable Bowel Musculoskeletal: Yes Arthritis Endocrine: No HEENT: Yes (READING GLASSES) Loss of Vision: Bilateral Hearing Impairment: Denies Cancer: No Psychosocial: Yes Sleep Difficulties, Bipolar Integumentary: Yes Psoriasis Blood Disorders: No Adverse Reaction/Blood Tranf: No Family Medical History Cancer 03 FATHER (PANCREATIC CANCER) 09 BROTHER ( AT AGE 10) Family history: Cardiovascular disease 03 MOTHER Family history: Diabetes mellitus 03 MOTHER Heart disease 03 MOTHER No Pertinent Family Hx Review of Systems Time Seen by Provider: 10:36 Sepsis Event Evaluation Height, Weight, BMI Height: 5'4.00" Weight: 166lbs. 0.0oz. 75.187195ft; 28.00 BMI Method:Stated Exam Exam Vital Signs Date Time Temp Pulse Resp B/P (MAP) Pulse Ox O2 Delivery O2 Flow Rate FiO2 11/15/19 03:14 99 24 112/62 (79) 93 Nasal Cannula 0.05 11/15/19 02:00 68 29 104/55 (71) Nasal Cannula 0.05 11/15/19 01:03 68 13 130/83 (99) 98 Nasal Cannula 0.05 11/15/19 01:00 69 11/15/19 00:37 66 30 95 Nasal Cannula 0.05 11/15/19 00:06 61 14 138/68 (91) 99 Nasal Cannula 2.00 11/14/19 23:33 Nasal Cannula 1.00 96 11/14/19 23:25 35.6 62 24 110/70 (83) 100 Nasal Cannula 1.00 11/14/19 23:00 62 110/70 (83) 100 Nasal Cannula 2.00 11/14/19 22:00 67 109/81 (90) 99 Nasal Cannula 2.00 11/14/19 21:56 95 Nasal Cannula 2.00 11/14/19 21:00 66 105/76 (86) 99 Nasal Cannula 2.00 11/14/19 20:32 72 18 121/90 (100) 97 Nasal Cannula 2.00 11/14/19 20:00 Nasal Cannula 2.00 11/14/19 19:49 35.1 75 16 114/81 (92) 100 Nasal Cannula 2.00 11/14/19 19:00 75 11/14/19 18:00 80 19 124/88 (100) 97 Nasal Cannula 4.00 11/14/19 17:00 80 18 138/86 (103) 94 Nasal Cannula 4.00 11/14/19 16:44 38.4 127 89 21 11/14/19 16:00 91 130/76 (94) 100 Nasal Cannula 4.00 11/14/19 15:20 Nasal Cannula 4.00 11/14/19 15:20 36.2 81 17 145/96 (112) 99 Nasal Cannula 4.00 11/14/19 15:05 38.4 88 20 118/70 (93) 92 Nasal Cannula 4.00 11/14/19 12:40 38.4 127 20 127/76 (93) I & O 11/15/19 07:00 Intake Total 2580 ml Output Total 350 ml Balance 2230 ml Height & Weight Height: 5'4.00" Weight: 166lbs. 0.0oz. 75.245071lj; 28.00 BMI Method:Stated General Appearance: No Apparent Distress, WD/WN, Other (alert, oriented, knows the year, knows where she is at and knows her name. States she feels "okay". She is febrile at 101. Blood pressure 127/76, heart rate 118, oxygen 88% room air, 90% on 2 L and 92% on 4 L) Neck: Full Range of Motion, Normal Inspection Respiratory: Normal Breath Sounds, No Accessory Muscle Use, No Respiratory Distress Cardiovascular: Normal Peripheral Pulses, Tachycardia Capillary Refill: Less Than 3 Seconds Extremity: Normal Capillary Refill, Normal Inspection Neurologic/Psychiatric: Alert, Oriented x3, No Motor/Sensory Deficits Skin: Normal Color, Warm/Dry Results Lab Laboratory Tests 11/14/19 12:52 11/15/19 04:10 Assessment/Plan Assessment/Plan Severe sepsis -IVF -Continue abx -Gardner cultures pending RLL PNA Seizures with s/p fall -Depakote toxicity Constipation JUANJO POSEY DO November 15, 2019 05:56
[2019-11-15] MEDS ORDERED: MINERAL OIL ENEMA 133 ML BTL PR PRN (06:00)
--- NOTE | 2019-11-15 06:56 | Diagnostic Imaging Report ---
INDICATION: Pneumonia. Comparison with 11/14/2019. FINDINGS: There has been increasing atelectasis in the right lung base since previous exam. No definite consolidation has developed. The left lung is well-aerated and clear. Heart is not enlarged. There is no pulmonary edema. No pneumothorax or pleural effusion. IMPRESSION: Increasing discoid atelectasis right lower lung when compared with previous exam. Dictated by: Dictated on workstation # [id number]
[2019-11-15] MEDS: LACTATED RINGERS 1,000 ML IV SCH ×4 (07:27→23:01)
[2019-11-15] MEDS: LACTULOSE SYRUP 10GM/15ML (ENULOSE) 30ML UDC PO SCH ×2 (08:46→19:29)
[2019-11-15] MEDS ORDERED: SODIUM PHOSPHATE INJ 30 MM in NS (IVPB) 250 ML IV ONE (09:00)
--- NOTE | 2019-11-15 09:00 | NUR ---
Patient brought to room via bed from ICU. Report received from CINDY Sandoval. I agree with previous RN's assessment and will assume care at this time.
[2019-11-15] MEDS ORDERED: AZITHROMYCIN INJECTION 500 MG in NS (IVPB) 250 ML IV ONE (10:15)
[2019-11-15 10:40] LABS: ALBUMIN 2.8 GM/DL (3.2-4.5); BILIRUBIN,DIRECT 0.2 MG/DL (0.0-0.3); BILIRUBIN,INDIRECT 0.4 MG/DL; BILIRUBIN,TOTAL 0.6 MG/DL (0.1-1.0); TOTAL PROTEIN 4.7 GM/DL (6.4-8.2)
[2019-11-15 10:47] LABS: VALPROIC ACID 74.5 UG/ML (50.0-100.0)
[2019-11-15] MEDS ORDERED: DIVALPROEX EXT RELEASE 250 MG (DEPAKOTE ER) TAB PO NR (11:00)
--- NOTE | 2019-11-15 11:00 | Physical Therapy Evaluation ---
PT Evaluation-General Medical Diagnosis Admission Date November 14, 2019 at 13:53 Medical Diagnosis: sepsis Onset Date: November 14, 2019 Therapy Diagnosis Therapy Diagnosis: difficulty walking Height/Weight Height (Feet): 5 Height (Inches): 4.00 Weight (Pounds): 166 Weight (Ounces): 0.0 Precautions Precautions/Isolations: Airborne Isolation, Fall Prevention Weight Bear Status Right Lower Extremity: Right Weight Bearing/Tolerated Left Lower Extremity: Left Weight Bearing/Tolerated Referral Physician: Yolanda Reason for Referral: Evaluation/Treatment Medical History Pertinent Medical History: CAD, Dementia, HTN, TBI Social History Home: Assisted Living Entry Into Home: Level Entry Prior Prior Level of Function SCALE: Activities may be completed with or without assistive devices. 3-Bfdracrxxw-pvqpjgj completes the activity by him/herself with no assistance from a helper. 5-Set-up or Clean-up Assistance-helper sets up or cleans up; patient completes activity. [place] assists only prior to or following the activity. 4-Supervision or Touching Assistance-helper provides verbal cues and/or touching/steadying and/or contact guard assistance as patient completes activity. Assistance may be provided throughout the activity or intermittently. 3-Partial/Moderate Assistance-helper does LESS THAN HALF the effort. [place] lifts, holds or supports trunk or limbs, but provides less than half the effort. 2-Substantial/Maximal Assistance-helper does MORE THAN HALF the effort. [place] lifts or holds trunk or limbs and provides more than half the effort. 8-Vpuiqnxcs-ahmblk does ALL the effort. Patient does none of the effort to complete the activity. Or, the assistance of 2 or more helpers is required for the patient to complete the activity. If activity was not attempted, code reason: 7-Patient Refused. 9-Not Applicable-not attempted and the patient did not perform the activity before the current illness, exacerbation or injury. 10-Not Attempted due to Environmental Limitations-(lack of equipment, weather restraints, etc.). 88-Not Attempted due to Medical Conditions or Safety Concerns. Bed Mobility: 6 Transfers (B,C,W/C): 6 Gait: 5 Indoor Mobility (Ambulation): Independent Prior Devices Use: Walker PT Evaluation-Current Subjective States that she doesn't feel well today. States that her back and her legs are really hurting. Pain Numeric Pain Scale: 8 Location Body Site: Back Objective Patient Orientation: Person, Place, Situation Attachments: IV ROM/Strength Strength Lower Extremities 3+/5 grossly Transfers Roll Left to Right (QC): 3 Sit to Lying (QC): 3 Lying to Sitting/Side of Bed(Q: 3 Sit to Stand (QC): 88 Chair/Aqx-jy-Tzeiw Xfer(QC): 88 Gait Does the Patient Walk?: No and Walking Goal IS indicated Mode of Locomotion: Walk Anticipated Mode of Locomotion: Walk Walk 10 feet (QC): 88 Walk 50 ft with 2 Turns(QC): 88 Walk 150 ft (QC): 88 Walking 10ft/uneven surface-QC: 88 Distance: 0 Balance Sitting Static: Poor Sitting Dynamic: Poor Picking up an Object (QC): 88 Assessment/Needs 69 y.o. female admitted after a seizure at [facility]. She currently has sepsis and has poor functional mobility. She should have improved functional abilities as her infection improves. Rehab Potential: Good PT Short Term Goals Short Term Goals Time Frame: November 19, 2019 Roll Left & Right: 4 Sit to lyin Lying to sitting on side of be: 4 Sit to stand: 4 Chair/bii-zp-faiui transfer: 4 Toilet transfer: 4 Car transfer: 4 Walk 10 feet: 5 Walk 50 feet with two turns: 5 Walk 150 feet: 5 1 step (curb): 5 4 steps: 88 12 steps: 88 Picking up objects: 5 Does pt use a wc or scooter: No PT Mcfp Goals Mcfp Goals PT Melangeur Operator Goals Time Frame: November 26, 2019 Roll Left & Right (QC): 5 Sit to Lying (QC): 5 Lying-Sitting on Side/Bed(QC): 5 Sit to Stand (QC): 5 Chair/Cwb-hq-Koecl Xfer(QC): 5 Toilet Transfer (QC): 5 Car Transfer (QC): 5 Does the Patient Walk: No and Walking Goal IS indicated Walk 10 feet (QC): 5 Walk 50ft with 2 Turns (QC): 5 Walk 150 ft (QC): 5 1 Step (curb) (QC): 5 PT Plan Problem List Problem List: Activity Tolerance, Functional Strength, Safety, Balance, Gait, Transfer, Bed Mobility, ROM Treatment/Plan Treatment Plan: Continue Plan of Care Treatment Plan: Bed Mobility, Functional Activity Tang, Functional Strength, Therapeutic Exercise, Transfers Treatment Duration: November 26, 2019 Frequency: 6 times per week Estimated Hrs Per Day: .5 hour per day Safety Risks/Education Patient Education: Gait Training, Transfer Techniques Teaching Recipient: Patient Teaching Methods: Demonstration Response to Teaching: Verbalize Understanding Discharge Recommendations Therapy Discharge Recommendati: Assisted Living Time/GCodes Time In: 1045 Time Out: 1100 Total Billed Treatment Time: 15 Total Billed Treatment 1, YVETTE Hamm C x 15' DONNELL RICHARDS PT November 15, 2019 11:00
--- NOTE | 2019-11-15 11:07 | History & Physical-Hospitalist ---
History of Present Illness HPI/Chief Complaint Marcela Gibbs is a 69-year-old female with past medical history of traumatic brain injury, seizure disorder, who presented with seizure. She lives at [facility]. She has been on Depakote for his seizure disorder. It has been held for the past couple days due to elevated levels. She reportedly had a seizure that lasted 10 minutes. She reports chills this morning. She reports full body muscle aches. She has no other complaints or concerns. She denies any fevers. She denies any chest pain or shortness of breath. She denies any cough. She denies any abdominal pain, nausea, vomiting. She reports constipation. Source: patient, RN/MD Exam Limitations: no limitations Date Seen 11/15/19 Time Seen by a Provider: 09:20 Attending Physician Dwayne Ross MD PCP Addy Farr MD Referring Physician Date of Admission November 14, 2019 at 13:53 Home Medications & Allergies Home Medications Reviewed patient Home Medication Reconciliation performed by pharmacy medication reconciliations research and development technician and/or nursing. Patients Allergies have been reviewed. Allergies Allergies Coded Allergies Penicillins (Verified Allergy, Mild, 07/22/13) latex (Verified Allergy, Mild, 07/22/13) Past Tphcwdy-Wtmprj-Shjtkb Hx Past Med/Social Hx: Reviewed Nursing Past Med/Soc Hx Patient Social History Alcohol Use: Denies Use Recreational Drug Use: No Smoking Status: Former Smoker Former Smoker, Quit: Jul 05, 2013 Type Used: Cigarettes 2nd Hand Smoke Exposure: Yes Recent Foreign Travel: No Contact w/other who traveled: No Recent Hopitalizations: No Recent Infectious Disease Expo: No Immunizations Up To Date Tetanus Booster (TDap): Unknown Date of Influenza Vaccine: Apr 11, 2018 Seasonal Allergies Seasonal Allergies: No Past Medical History Surgeries: Gallbladder, Lumpectomy Currently Using CPAP: No Cardiac: Chronic Edema/Swelling, Coronary Artery Disease, High Cholesterol, Hypertension, Rheumatic Fever Neurological: Concussion, Dementia, Seizure Disorder, Traumatic Brain Injury, Vertigo Reproductive: No Sexually Transmitted Disease: No HIV/AIDS: No Female Reproductive Disorders: Denies Gastrointestinal: Gastroesophageal Reflux, Chronic Constipation, Chronic Diarrhea, Gall Bladder Disease, Irritable Bowel Musculoskeletal: Arthritis Loss of Vision: Bilateral Hearing Impairment: Denies Psychosocial: Sleep Difficulties, Bipolar Skin/Integumentary: Psoriasis History of Blood Disorders: No Adverse Reaction to Blood Mckoy: No Family History Cancer 03 FATHER (PANCREATIC CANCER) 09 BROTHER ( AT AGE 10) Family history: Cardiovascular disease 03 MOTHER Family history: Diabetes mellitus 03 MOTHER Heart disease 03 MOTHER No Pertinent Family Hx Review of Systems Constitutional: chills EENTM: no symptoms reported Respiratory: no symptoms reported Cardiovascular: no symptoms reported Gastrointestinal: constipation Genitourinary: no symptoms reported Musculoskeletal: muscle pain Skin: no symptoms reported Psychiatric/Neurological: No Symptoms Reported Physical Exam Physical Exam Vital Signs Vital Signs - First Documented 11/14/19 11/14/19 11/14/19 12:40 15:05 16:44 Temp 38.4 Pulse 127 Resp 20 B/P (MAP) 127/76 (93) Pulse Ox 92 O2 Delivery Nasal Cannula O2 Flow Rate 4.00 FiO2 21 Capillary Refill : Less Than 3 Seconds Height, Weight, BMI Height: 5'4.00" Weight: 166lbs. 0.0oz. 75.044287wk; 28.00 BMI Method:Stated General Appearance: No Apparent Distress, Anxious HEENT: PERRL/EOMI, Pharynx Normal Neck: Normal Inspection, Supple Respiratory: Lungs Clear, Normal Breath Sounds, No Respiratory Distress Cardiovascular: Regular Rate, Rhythm, No Edema, No Murmur Gastrointestinal: Normal Bowel Sounds, Non Tender, Soft Extremity: Normal Inspection, Non Tender, No Pedal Edema Neurologic/Psychiatric: Alert, Oriented x3, No Motor/Sensory Deficits, Normal Mood/Affect Skin: Normal Color, Warm/Dry Results Results/Procedures Labs Laboratory Tests 11/14/19 12:52 11/15/19 04:10 Patient resulted labs reviewed. Imaging: Reviewed Imaging Report Assessment/Plan Admission Diagnosis Depakote toxicity Admission Status: Inpatient Order (span 2 midnights) Reason for Inpatient Admission: Depakote toxicity requiring further monitoring, pneumonia requiring antibiotics Assessment and Plan Depakote toxicity Seizures Seizure disorder History of traumatic brain injury Symptoms consistent with Depakote toxicity: Seizure, leukocytosis, fever Depakote level elevated at 124 on arrival, repeat level 74 today Resume Depakote at decreased dose of 750 mg twice daily Continue Keppra Continue Seroquel and Topamax Severe sepsis Lactic acidosis Acute kidney injury superimposed on chronic kidney disease Pneumonia SIRS+ with fever and tachycardia Chest x-ray with possible right lower lobe infiltrate Procalcitonin elevated at 0.65 Lactic acid elevated at 5.98 on arrival, repeat 1.73 Creatinine 2.63 on arrival, improved to 1.47 this morning, appears to be near baseline Continue IV fluids Started on cefepime Transition to Rocephin and azithromycin DVT prophylaxis: Lovenox Diagnosis/Problems Diagnosis/Problems (1) Drug toxicity Status: Acute (2) Seizure Status: Acute (3) Seizure disorder Status: Chronic (4) History of traumatic brain injury Status: Chronic (5) Acute kidney injury superimposed on chronic kidney disease Status: Acute (6) Lactic acidosis Status: Acute (7) Severe sepsis Status: Acute (8) Pneumonia Status: Acute Qualifiers: Laterality: right Lung location: lower lobe of lung Clinical Quality Measures DVT/VTE Risk/Contraindication: Risk Factor Score Per Nursin RFS Level Per Nursing on Admit: 3=High DWAYNE ROSS MD November 15, 2019 11:07
[2019-11-15] MEDS: cefTRIAXone FOR IV USE 1,000 MG in WATER (STERILE) FOR INJECTION 10 ML IV SCH (11:26)
[2019-11-15] MEDS: prednisoLONE 1% OPTH (PRED FORTE) 5 ML BTL OU SCH (12:19)
--- NOTE | 2019-11-15 12:45 | NUR ---
CM/SS visited with patient for discharge planning. Plan: The patient will return to [facility] at discharge. Transportation from facility. The patient appeared to be short with answering questions during the visit. The patient reports that she has been a resident of [facility] for the past 15 years and states that she enjoys living there. DPOA: The patients DPOA on the face sheet is listed as Addy ([phone]). The patient verbally confirmed this. CM/SS will contact DPOA to discuss discharge. Will continue to follow.
--- NOTE | 2019-11-15 13:33 | Occupational Therapy Eval ---
OT Evaluation-General/PLF Medical Diagnosis Admission Date November 14, 2019 at 13:53 Medical Diagnosis: sepsis Onset Date: November 14, 2019 Therapy Diagnosis Therapy Diagnosis: impaired self care skills Height/Weight Height (Feet): 5 Height (Inches): 4.00 Weight (Pounds): 166 Weight (Ounces): 0.0 Precautions Precautions/Isolations: Airborne Isolation, Fall Prevention Referral Physician: Yolanda Medical History Pertinent Medical History: CAD, Dementia, HTN, TBI Additional Medical History chronic bronchitis, chronic edema, high cholesterol, HTN, rheumatic fever, encephalitis, RLS, seizure disorder, TBI, vertigo, GERD, arthritis sleep difficulties, bipolar Reviewed History: Yes Social History Home: Assisted Living Entry Into Home: Level Entry ADL-Prior Level of Function SCALE: Activities may be completed with or without assistive devices. 8-Roemakeirj-zenlmpa completes the activity by him/herself with no assistance from a helper. 5-Set-up or Clean-up Assistance-helper sets up or cleans up; patient completes activity. [place] assists only prior to or following the activity. 4-Supervision or Touching Assistance-helper provides verbal cues and/or touching/steadying and/or contact guard assistance as patient completes activity. Assistance may be provided throughout the activity or intermittently. 3-Partial/Moderate Assistance-helper does LESS THAN HALF the effort. [place] lifts, holds or supports trunk or limbs, but provides less than half the effort. 2-Substantial/Maximal Assistance-helper does MORE THAN HALF the effort. [place] lifts or holds trunk or limbs and provides more than half the effort. 2-Qxupntksa-jgvumk does ALL the effort. Patient does none of the effort to complete the activity. Or, the assistance of 2 or more helpers is required for the patient to complete the activity. If activity was not attempted, code reason: 7-Patient Refused. 9-Not Applicable-not attempted and the patient did not perform the activity before the current illness, exacerbation or injury. 10-Not Attempted due to Environmental Limitations-(lack of equipment, weather restraints, etc.). 88-Not Attempted due to Medical Conditions or Safety Concerns. ADL PLOF Comments Pt unable to provide detailed information regarding PLOF. Per chart, pt is a resident at [facility] Self Care: Unknown Functional Cognition: Unknown OT Current Status Subjective Pt resting in bed, agrees to therapy. Pt reports 7/10 back pain. Mental Status/Objective Patient Orientation: Person, Confused Attachments: IV Current Hand Dominance: Right Upper Extremity ROM Decreased active shoulder ROM. Pt resists any PROM. Upper Extremity Coordination Decreased bilaterally Upper Extremity Strength Decreased bilaterally ADL-Treatment ADL-Current Pt participated minimally with UE assessment while in supine. Pt has difficulty following commands for assessment and resists PROM. Pt did hold washcloth in right hand and washed lower portion of face, but required assist to complete t ask. When given a brush pt raised it toward head, but then states she can't complete task. Total assist required. Pt states she is "worn out" and declined further activity. Pt resting in bed with needs met after session Eating (QC): 4 (per report from nurse aide) Education OT Patient Education: Rehab process Teaching Recipient: Patient Teaching Methods: Discussion Response to Teaching: Unable to Comprehend OT Machinery Repair Maintenance Supervisor Goals Usp Goals Time Frame: November 29, 2019 Eating (QC): 5 Oral Hygiene (QC): 5 Toileting Hygiene (QC): 3 Upper Body Dressing (QC): 4 Lower Body Dressing (QC): 3 Additional Goals: 1-Demonstrate ADL Tasks, 2-Verbalize Understanding, 3- ImproveStrength/Tang 1=Demonstrate adherence to instructed precautions during ADL tasks. 2=Patient will verbalize/demonstrate understanding of assistive devices/modifications for ADL. 3=Patient will improve strength/tolerance for activity to enable patient to perform ADL's. OT Education/Plan Problem List/Assessment Assessment: Decreased Activ Tolerance, Decreased UE Strength, Dependent Transfers, Impaired Coordination, Impaired I ADL's, Impaired Self-Care Skills Pt to benefit from skilled OT intervention for ADL training, transfers, strengthening, and safety education to increase level of function and allow safe discharge. Discharge Recommendations Plan/Recommendations: Continue POC Treatment Plan/Plan of Care Treatment,Training & Education: Yes Patient would benefit from OT for education, treatment and training to promote independence in ADL's, mobility, safety and/or upper extremity function for ADL's. Plan of Care: ADL Retraining, Functional Mobility, UE Funct Exercise/Act Treatment Duration: November 29, 2019 Frequency: 5 times per week Estimated Hrs Per Day: .25 hour per day Rehab Potential: Fair Time/GCodes Start Time: 13:14 Stop Time: 13:26 Total Time Billed (hr/min): 12 Billed Treatment Time 1 visit, YVETTEM(12minutes) RACHEL TAY OT November 15, 2019 13:33
[2019-11-15] MEDS: OXYBUTYNIN (DITROPAN) 5 MG TAB PO SCH ×2 (14:28→21:37)
[2019-11-15] MEDS: ENOXAPARIN 40 MG/0.4 ML (LOVENOX) SYR SC SCH (17:10)
[2019-11-15] MEDS: LEVETIRACETAM 1,000 MG (KEPPRA) TABLET PO SCH (20:10)
[2019-11-15] MEDS: QUEtiapine 100 MG (SEROquel) TAB IMMEDIATE RELEASE PO SCH (20:10)
[2019-11-15] MEDS: MELATONIN 3 MG TABLET PO SCH (20:10)
[2019-11-15] MEDS: toPIRamate 25 MG (TOPAMAX) TAB PO SCH (20:11)
[2019-11-15] MEDS: DIVALPROEX EXT RELEASE 250 MG (DEPAKOTE ER) TAB PO SCH (20:12)
[2019-11-16 00:25] VITALS: BP 115/78
[2019-11-16 04:00] VITALS: BP 116/85
[2019-11-16] MEDS: LACTATED RINGERS 1,000 ML IV SCH (05:21)
[2019-11-16] MEDS: OXYBUTYNIN (DITROPAN) 5 MG TAB PO SCH ×4 (05:25→22:00)
[2019-11-16 06:20] LABS: BASOPHILS % (AUTO) 0 % (0-10); EOSINOPHILS % (AUTO) 0 % (0-10); HEMATOCRIT 35 % (35-52); HEMOGLOBIN 11.6 G/DL (11.5-16.0); LYMPHOCYTES # (AUTO) 1.4 X 10^3 (1.0-4.0); LYMPHOCYTES % (AUTO) 12 % (12-44); MEAN CORPUSCULAR HEMOGLOBIN 34 PG (25-34); MEAN CORPUSCULAR HGB CONC 33 G/DL (32-36); MEAN CORPUSCULAR VOLUME 104 FL (80-99); MEAN PLATELET VOLUME 10.3 FL (7.4-10.4); MONOCYTES # (AUTO) 2.1 X 10^3 (0.0-1.0); MONOCYTES % (AUTO) 18 % (0-12); NEUTROPHILS # (AUTO) 8.2 X 10^3 (1.8-7.8); NEUTROPHILS % (AUTO) 70 % (42-75); PLATELET COUNT 87 10^3/uL (130-400); RED CELL DISTRIBUTION WIDTH 14.2 % (10.0-14.5); WHITE BLOOD COUNT 11.7 10^3/uL (4.3-11.0)
[2019-11-16 06:51] LABS: CALCIUM 8.3 MG/DL (8.5-10.1); CREATININE SERUM 1.08 MG/DL (0.60-1.30); PHOSPHORUS 2.1 MG/DL (2.3-4.7)
[2019-11-16 08:00] VITALS: BP 102/68
[2019-11-16] MEDS: DULoxetine 30 MG (CYMBALTA) CAP PO SCH (08:18)
[2019-11-16] MEDS: ASPIRIN E.C. 81 MG (ECOTRIN) TAB PO SCH (08:19)
[2019-11-16] MEDS: toPIRamate 25 MG (TOPAMAX) TAB PO SCH ×2 (08:19→21:11)
[2019-11-16] MEDS: AZITHROMYCIN 250 MG TAB (ZITHROMAX) PO SCH (08:19)
[2019-11-16] MEDS: PANTOPRAZOLE 40 MG (PROTONIX) TAB PO SCH (08:19)
[2019-11-16] MEDS: LEVETIRACETAM 1,000 MG (KEPPRA) TABLET PO SCH ×2 (08:19→21:11)
[2019-11-16] MEDS: predniSONE 10 MG TAB PO SCH (08:19)
[2019-11-16] MEDS: DIVALPROEX EXT RELEASE 250 MG (DEPAKOTE ER) TAB PO SCH ×2 (08:20→21:10)
--- NOTE | 2019-11-16 08:43 | NUR ---
PT REFUSING AM MEDICATIONS. ATTEMPTED TO GIVE MEDICATIONS WITH PUDDING. PT SPIT OUT KEPPRA AND PROTONIX PILLS BUT SWALLOWED ALL OTHER MEDICATIONS THAT WERE GIVEN.
[2019-11-16] MEDS: LACTULOSE SYRUP 10GM/15ML (ENULOSE) 30ML UDC PO SCH ×2 (08:45→21:45)
[2019-11-16] MEDS: DOCUSATE SODIUM 100 MG (COLACE) CAP PO SCH ×2 (08:45→21:45)
--- NOTE | 2019-11-16 10:08 | Occ Therapy Progress Note ---
Therapy Progress Note OT attempted tx this AM, pt laying in bed sleeping. OT attempted to wake pt up for tx, when pt was asked how she was she reports "tired", keeping her eyes closed. Pt unable to participate in skilled therapies this morning due to lethargy. OT will attempt tx again this afternoon. 1, visit 0958 WADE ALATORRE OT November 16, 2019 10:08
[2019-11-16] MEDS: cefTRIAXone FOR IV USE 1,000 MG in WATER (STERILE) FOR INJECTION 10 ML IV SCH (10:13)
--- NOTE | 2019-11-16 10:59 | Physical Therapy Daily Note ---
PT Daily Note-Current Subjective Pt sleeping soundly upon arrival. Pt gradually awakened with vc's to open eyes. Nurse present. Pt incontinent of bowel and bladder. Pt able to follow direction. Pt does say "yes I hurt" when asked but does not rate pain. Pt indicates back and bottom hurt. Mental Status Patient Orientation: Unable to Assess Transfers SCALE: Activities may be completed with or without assistive devices. 3-Owssfyneto-tcwpkla completes the activity by him/herself with no assistance from a helper. 5-Set-up or Clean-up Assistance-helper sets up or cleans up; patient completes activity. [place] assists only prior to or following the activity. 4-Supervision or Touching Assistance-helper provides verbal cues and/or touching/steadying and/or contact guard assistance as patient completes activity. Assistance may be provided throughout the activity or intermittently. 3-Partial/Moderate Assistance-helper does LESS THAN HALF the effort. [place] lifts, holds or supports trunk or limbs, but provides less than half the effort. 2-Substantial/Maximal Assistance-helper does MORE THAN HALF the effort. [place] lifts or holds trunk or limbs and provides more than half the effort. 6-Lppgnixot-nltkzu does ALL the effort. Patient does none of the effort to complete the activity. Or, the assistance of 2 or more helpers is required for the patient to complete the activity. If activity was not attempted, code reason: 7-Patient Refused. 9-Not Applicable-not attempted and the patient did not perform the activity before the current illness, exacerbation or injury. 10-Not Attempted due to Environmental Limitations-(lack of equipment, weather restraints, etc.). 88-Not Attempted due to Medical Conditions or Safety Concerns. Pt transferred with HOB up and min-mod A to EOB. Required effort for pt to scoot to EOB. Sit to stand transfers min-mod A Weight Bearing Right Lower Extremity: Right Weight Bearing/Tolerated Left Lower Extremity: Left Weight Bearing/Tolerated Treatments Pt amb 2-3 ft with FWW to commode with min-mod A. Pt cleaned per nurse aid and donned brief. Pt amb 2-3ft with FWW to recliner, min A for balance and max vc's for sequence. Pt up in recliner with legs elevated post therapy. Assessment Current Status: Fair Progress Pt appeared sleepy. Pt able to follow instruction. Pt forward flexed and short shuffling gait. Pt requires min-mod A for all transfers and mobility. PT Short Term Goals Short Term Goals Time Frame: November 19, 2019 Roll Left & Right: 4 Sit to lyin Lying to sitting on side of be: 4 Sit to stand: 4 Chair/axa-yg-ojedo transfer: 4 Toilet transfer: 4 Car transfer: 4 Walk 10 feet: 5 Walk 50 feet with two turns: 5 Walk 150 feet: 5 1 step (curb): 5 4 steps: 88 12 steps: 88 Picking up objects: 5 Does pt use a wc or scooter: No PT Mcc Goals Head Buyer Tobacco Goals PT Mcc Goals Time Frame: November 26, 2019 Roll Left & Right (QC): 5 Sit to Lying (QC): 5 Lying-Sitting on Side/Bed(QC): 5 Sit to Stand (QC): 5 Chair/Fow-wf-Dwsil Xfer(QC): 5 Toilet Transfer (QC): 5 Car Transfer (QC): 5 Does the Patient Walk: No and Walking Goal IS indicated Walk 10 feet (QC): 5 Walk 50ft with 2 Turns (QC): 5 Walk 150 ft (QC): 5 Walking 10ft on Uneven Surface: 0 1 Step (curb) (QC): 5 4 Steps (QC): 0 12 Steps (QC): 0 Picking up an Object (QC): 0 Wheel 50 feet with 2 turns (QC: 0 Wheel 150 feet: 0 PT Plan Treatment/Plan Treatment Plan: Continue Plan of Care Treatment Plan: Bed Mobility, Functional Activity Tang, Functional Strength, Therapeutic Exercise, Transfers Treatment Duration: November 26, 2019 Frequency: 6 times per week Estimated Hrs Per Day: .5 hour per day Time/GCodes Time In: 1030 Time Out: 1050 Total Billed Treatment Time: 20 Total Billed Treatment 1, FA 20' GOPAL DONALDSON CPTA November 16, 2019 10:59
[2019-11-16] MEDS ORDERED: CEFD300C3 PO (11:21)
[2019-11-16] MEDS ORDERED: DIVA250T12 PO (11:21)
[2019-11-16 12:00] VITALS: BP 92/59
--- NOTE | 2019-11-16 13:14 | NUR ---
"RD ASSESSMENT PMHx: TBI; seizure disorder; CAD; hypercholesterolemia; HTN; dementia; GERD; chronic constipation/diarrhea PT INTERACTION: Note pt has dementia, per chart review. Note pt opened eyes to acknowledge me, then shut them back and refused to answer questions. All information provided was per chart review. Note avg PO intake 31% x1d. Note last BM was 11/15, and pt currently on bowel regimen of colace BID. Note unable to determine recent wt hx. ABNORMAL NUTRITION-RELATED LAB VALUES LOW: K 3.0; Ca 8.3; phos 2.1; Pro 4.7; alb 2.1 HIGH: AST 221 Est. kcal needs: 9771-2202 kcal | 20-25 kcal/kg Est. Pro needs: 66-83 g Pro | 0.8-1.0 g Pro/kg PES STATEMENT: Inadequate oral intake (NI-2.1) related to loss of appetite as evidenced by chart review | avg PO intake 31% x1d INTERVENTION: Continue with current diet order of Regular diet. Add Ensure Enlive (vary) to meals TID, for increased kcal intake. Provides 350 kcal and 13 g Pro per serving. Will continue to follow and reassess as pt needs, intake, and status change. MONITOR/EVALUATE: PO Intake; Plan of Care; Hydration Status; Weight Status; Lab Values Fracisco Varghese, MS, RD, LD"
--- NOTE | 2019-11-16 13:52 | Occupational Ther Daily Note ---
OT Current Status-Daily Note Subjective Pt sitting in recliner, moderate encouragement required to participate in ADL session. Pt stated she would just like to go home, and repeatedly stated "get me out of here". ADL-Treatment Therapy Code Descriptions/Definitions Functional [place] Measure: 0=Not Assessed/NA 4=Minimal Assistance 1=Total Assistance 5=Supervision or Setup 2=Maximal Assistance 6=Modified [place] 3=Moderate Assistance 7=Complete IndependenceSCALE: Activities may be completed with or without assistive devices. 8-Usgvlyjvlp-hcbibcw completes the activity by him/herself with no assistance from a helper. 5-Set-up or Clean-up Assistance-helper sets up or cleans up; patient completes activity. [place] assists only prior to or following the activity. 4-Supervision or Touching Assistance-helper provides verbal cues and/or touching/steadying and/or contact guard assistance as patient completes activity. Assistance may be provided throughout the activity or intermittently. 3-Partial/Moderate Assistance-helper does LESS THAN HALF the effort. [place] lifts, holds or supports trunk or limbs, but provides less than half the effort. 2-Substantial/Maximal Assistance-helper does MORE THAN HALF the effort. [place] lifts or holds trunk or limbs and provides more than half the effort. 4-Zxnpjyxtk-iasgvd does ALL the effort. Patient does none of the effort to complete the activity. Or, the assistance of 2 or more helpers is required for the patient to complete the activity. If activity was not attempted, code reason: 7-Patient Refused. 9-Not Applicable-not attempted and the patient did not perform the activity before the current illness, exacerbation or injury. 10-Not Attempted due to Environmental Limitations-(lack of equipment, weather restraints, etc.). 88-Not Attempted due to Medical Conditions or Safety Concerns. Other Treatment Pt seated in recliner, able to wash her face when a washcloth was placed in her hand and with instruction to wash her face. OT then placed a hair brush in pt's hand in order for her to brush her hair, she did not initiate task after verbal/tactile cues. OT dependently brushed pt's hair. Pt asked to get her out of here and that she would like to go home. When asked if she would like her arms covered up again, pt replied I just want out of here. Post OT tx, pt seated in recliner, call light in reach and needs met. Education OT Patient Education: Correct positioning, Modified ADL techniques, Progress toward Goal/Update tx plan, Purpose of tx/functional activities OT [facility] Goals Gas Appliance Installer Goals Time Frame: November 29, 2019 Eating (QC): 5 Oral Hygiene (QC): 5 Toileting Hygiene (QC): 3 Upper Body Dressing (QC): 4 Lower Body Dressing (QC): 3 Additional Goals: 1-Demonstrate ADL Tasks, 2-Verbalize Understanding, 3-ImproveStrength/Tang 1=Demonstrate adherence to instructed precautions during ADL tasks. 2=Patient will verbalize/demonstrate understanding of assistive devices/modifications for ADL. 3=Patient will improve strength/tolerance for activity to enable patient to perform ADL's. OT Education/Plan Problem List/Assessment Assessment: Decreased Activ Tolerance, Decreased UE Strength, Impaired I ADL's, Impaired Self-Care Skills Pt to benefit from skilled OT intervention for ADL training, transfers, strengthening, and safety education to increase level of function and allow safe discharge. Discharge Recommendations Plan/Recommendations: Continue POC Treatment Plan/Plan of Care Patient would benefit from OT for education, treatment and training to promote independence in ADL's, mobility, safety and/or upper extremity function for ADL's. Plan of Care: ADL Retraining, Functional Mobility, UE Funct Exercise/Act Treatment Duration: November 29, 2019 Frequency: 5 times per week Estimated Hrs Per Day: .25 hour per day Rehab Potential: Fair Time/GCodes Start Time: 13:34 Stop Time: 13:42 Total Time Billed (hr/min): 8 Billed Treatment Time 1, ADL WADE ALATORRE OT November 16, 2019 13:52
--- NOTE | 2019-11-16 14:55 | NUR ---
IRF Evaluation Order received to evaluate patient for the ARU. Chart review complete and findings discussed with Dr. Guerrero and ANTONELLA Arnett. Attempted to meet with patient to discuss details related to rehabilitation program. Upon entering patient's room she was found sitting in her recliner and watching television. As this technical publications writer proceeded to provide informational, patient sat with her eyes closed and did not respond to questions. After reasonable effort this technical publications writer excused herself from patient's room. Due to patient's lack of participation with therapies coupled with her disinterest in rehab discussion/evaluation, patient has been denied admission to inpatient rehab. Dr. Guerrero and ANTONELLA notified. Thank you for this referral.
--- NOTE | 2019-11-16 15:03 | NUR ---
CM/SS follow up. The patient is a resident of [facility]. CM/SS contacted the facility to assess if patient could return with current physical mobility. They stated she had to be a 1 person assist to come back. The patient is currently a 2 person assist and is unable to discharge back to [facility] at this time due to increased physical needs. CM/SS spoke with Physician and Amina from [facility] about the possibility of inpatient rehab. They have denied. CM/SS visited with the patient for jail home placement. The patient verbalized understanding for why she needs longer term skilled therapies. She states that this ss can make a referral for [facility]. CM/SS contacted the facility and left a message for social service assistant Lisbeth. A referral was faxed. Lisbeth contacted this ss and stated they will look over referral and if they accept would like to picker tender at 10:00 a.m. on 11/16.
[2019-11-16 15:43] VITALS: BP 103/59
[2019-11-16] MEDS: ENOXAPARIN 40 MG/0.4 ML (LOVENOX) SYR SC SCH (16:32)
--- NOTE | 2019-11-16 16:38 | Progress Note - Hospitalist ---
Subjective HPI/CC On Admission Date Seen by Provider: November 16, 2019 Time Seen by Provider: 09:20 Marcela Gibbs is a 69-year-old female with past medical history of traumatic brain injury, seizure disorder, who presented with seizure. She lives at [facility]. She has been on Depakote for his seizure disorder. It has been held f or the past couple days due to elevated levels. She reportedly had a seizure that lasted 10 minutes. She reports chills this morning. She reports full body muscle aches. She has no other complaints or concerns. She denies any fevers. She denies any chest pain or shortness of breath. She denies any cough. She denies any abdominal pain, nausea, vomiting. She reports constipation. Subjective/Events-last exam She is sleeping upon my arrival. She is angry when I awaken her. She is uncooperative. She denies any complaints. Focused Exam Lactate Level 11/14/19 12:52: Lactic Acid Level 5.98*H 11/14/19 14:50: Lactic Acid Level 1.73 Objective Exam Vital Signs Vital Signs Date Time Temp Pulse Resp B/P (MAP) Pulse Ox O2 Delivery O2 Flow Rate FiO2 11/16/19 15:43 36.0 58 16 103/59 (74) 93 Room Air 11/15/19 12:00 1.00 11/15/19 08:00 96 Capillary Refill : Less Than 3 Seconds General Appearance: No Apparent Distress, Obese Respiratory: Lungs Clear, Normal Breath Sounds, No Respiratory Distress Cardiovascular: Regular Rate, Rhythm, No Edema, No Murmur Gastrointestinal: Normal Bowel Sounds, Non Tender, Soft Extremity: Normal Inspection, Pedal Edema Neurologic/Psychiatric: Alert, Other (Agitated) Skin: Normal Color, Warm/Dry Results/Procedures Lab Laboratory Tests 11/16/19 05:25 Patient resulted labs reviewed. Imaging: Reviewed Imaging Report Assessment/Plan Assessment and Plan Assess & Plan/Chief Complaint Depakote toxicity Seizures Seizure disorder History of traumatic brain injury Continue Depakote at decreased dose Continue Keppra Continue Seroquel and Topamax Pneumonia Transition to Omnicef Chronic kidney disease Creatinine returned to baseline Discontinue IV fluids Debility PT/OT Plan to discharge to [facility] tomorrow morning DVT prophylaxis: Lovenox Severe sepsis, resolved Lactic acidosis, resolved Acute kidney injury superimposed on chronic kidney disease Diagnosis/Problems Diagnosis/Problems (1) Drug toxicity Status: Acute (2) Seizure Status: Acute (3) Seizure disorder Status: Chronic (4) History of traumatic brain injury Status: Chronic (5) Acute kidney injury superimposed on chronic kidney disease Status: Resolved Resolution Date/Time: 11/16/19 @ 16:38 (6) Lactic acidosis Status: Resolved Resolution Date/Time: 11/16/19 @ 16:38 (7) Severe sepsis Status: Resolved Resolution Date/Time: 11/16/19 @ 16:38 (8) Pneumonia Status: Acute Qualifiers: Laterality: right Lung location: lower lobe of lung Clinical Quality Measures DVT/VTE Risk/Contraindication: Risk Factor Score Per Nursin RFS Level Per Nursing on Admit: 3=High DWAYNE ROSS MD November 16, 2019 16:38
--- NOTE | 2019-11-16 16:43 | Discharge Summary ---
Discharge Summary Reconcile Patient Problems Problems Reviewed?: Yes Hospital Course Hospital Course Date of Admission: November 14, 2019 at 13:53 Admission Diagnosis : Depakote toxicity, pneumonia Family Physician/Provider: Addy Farr MD Date of Discharge: 11/17/19 Discharge Diagnosis: Depakote toxicity, pneumonia Hospital Course: Marcela Gibbs is a 69-year-old female with past medical history of traumatic brain injury, seizure disorder, who presented with a seizure and was admitted with Depakote toxicity and pneumonia. She was treated with IV Rocephin and then transitioned to oral Omnicef on discharge. Her Depakote was initially held and her levels decreased. She was restarted on a decreased dose of Depakote. She should have that her Depakote levels rechecked on Wednesday. She was also debilitated from her baseline. According to Vero Shaw, she was independent at baseline. She was requiring a two person assist with ambulation during her hospitalization. She was discharged to [facility] for ongoing therapies. She should follow-up with her primary care physician in about a week. Labs and Pending Lab Test: Laboratory Tests 11/16/19 05:25: White Blood Count 11.7H, Red Blood Count 3.37L, Hemoglobin 11.6, Hematocrit 35, Mean Corpuscular Volume 104H, Mean Corpuscular Hemoglobin 34, Mean Corpuscular Hemoglobin Concent 33, Red Cell Distribution Width 14.2, Platelet Count 87L, Mean Platelet Volume 10.3, Neutrophils (%) (Auto) 70, Lymphocytes (%) (Auto) 12, Monocytes (%) (Auto) 18H, Eosinophils (%) (Auto) 0, Basophils (%) (Auto) 0, Neutrophils # (Auto) 8.2H, Lymphocytes # (Auto) 1.4, Monocytes # (Auto) 2.1H, Eosinophils # (Auto) 0.0, Basophils # (Auto) 0.0, Sodium Level 137, Potassium Level 3.0L, Chloride Level 102, Carbon Dioxide Level 26, Anion Gap 9, Blood Urea Nitrogen 12, Creatinine 1.08, Estimat Glomerular Filtration Rate 50, BUN/Creatinine Ratio 11, Glucose Level 74, Calcium Level 8.3L, Phosphorus Level 2.1L, Magnesium Level 2.0 Microbiology 11/14/19 Influenza Types A,B Antigen (JUSTIN) - Final, Complete 11/14/19 Blood Culture - Preliminary, Resulted No growth Home Meds Active Divalproex Sodium ER (Divalproex Sodium) 250 Mg Tab.er.24h 250 Mg PO BID 30 Days Cefdinir 300 Mg Capsule 300 Mg PO BID 5 Days Reported Clobetasol Propionate 50 Ml Solution 1 Applic TP BID APPLY TO THE SCALP Clobetasol Propionate 118 Ml Shampoo 1 Applic TOP Q72H Vitamin E (Vitamin E (Dl,Tocopheryl Acet)) 400 Unit Capsule 400 Unit PO DAILY Vitamin C (Ascorbic Acid) 1,000 Mg Tablet 1,000 Mg PO DAILY Topiramate 50 Mg Tablet 50 Mg PO BID Quetiapine Fumarate ER (Quetiapine Fumarate) 150 Mg Tab.er.24h 150 Mg PO HS Divalproex Sodium ER (Divalproex Sodium) 500 Mg Tab.er.24h 1,000 Mg PO BID TAKE 2 (500MG) TABS TWICE DAILY Furosemide 80 Mg Tablet 80 Mg PO DAILY Spironolactone 100 Mg Tablet 100 Mg PO DAILY Pantoprazole Sodium 40 Mg Tablet. 40 Mg PO DAILY Prednisone 10 Mg Tab 10 Mg PO DAILY Miralax (Polyethylene Glycol 3350) 17 Gm Powd.pack 17 Gm PO DAILY PRN Melatonin 3 Mg Tablet 3 Mg PO HS Lactulose 10 Gm/15 Ml Solution 30 Ml PO DAILY PRN Cymbalta (Duloxetine HCl) 60 Mg Capsule. 60 Mg PO DAILY Levetiracetam 1,000 Mg Tablet 1,000 Mg PO BID Prednisolone Acetate 5 Ml Drops.susp 1 Drop OU Q48H Atorvastatin Calcium 80 Mg Tablet 80 Mg PO HS Oxybutynin Chloride ER (Oxybutynin Chloride) 15 Mg Tab.er.24 15 Mg PO HS Meloxicam 15 Mg Tablet 15 Mg PO DAILY Aspirin EC (Aspirin) 81 Mg Tablet. 81 Mg PO DAILY Instructions to Patient/Family Assessment/Instructions Take medications as prescribed. Continue Depakote at a decreased dose. Repeat Depakote levels next week. Follow-up with your primary care physician next week. Participate in therapies. Follow Up Appt.: Next assisted rounds, PCP in about a week Skilled NF Admit to: [facility] Certification (SNF) I certify that SNF services are required to be given on an inpatient basis because of the above named patient's need for half-way care on a continuing basis for the conditions(s) for which he/she was receiving inpatient hospital services prior to his/her transfer to the SNF. [facility] Facility Order: Nursing Services, Cut Plug Packer-Evaluate & Treat, Physical Therapy-Evaluate & Treat Oxygen Delivery Method: Room Air Discharge Diet: No Restrictions Daily Activity as Tolerated: Yes Resuscitation Status: Full Code Emani Ross November 17, 2019 09:42 Pneu Vac Indicated: Yes Discharge Physical Exam General: Alert, No Acute Distress, Other (Uncooperative) Lungs: Clear to Auscultation, Normal Air Movement Heart: Regular Rate, Normal S1, Normal S2, No Murmurs Abdomen: Normal Bowel Sounds, Soft, No Tenderness Extremities: No Edema, No Tenderness/Swelling Skin: No Rashes, No Significant Lesion Neuro: Normal Speech, Other Psych/Mental Status: Other (Agitated) EMANI ROSS MD November 16, 2019 16:43
[2019-11-16 19:52] VITALS: BP 129/74
[2019-11-16] MEDS: CEFDINIR 300 MG (OMNICEF) CAP PO SCH (21:10)
[2019-11-16] MEDS: QUEtiapine 100 MG (SEROquel) TAB IMMEDIATE RELEASE PO SCH (21:10)
[2019-11-16] MEDS: MELATONIN 3 MG TABLET PO SCH (21:11)
[2019-11-17] VITALS: BP 83/59
[2019-11-17] MEDS ORDERED: NS IV 500 ML 500 ML ONE (00:15)
[2019-11-17] MEDS ORDERED: NS (IVPB) 200 ML IV PRN (00:30)
--- NOTE | 2019-11-17 01:30 | NUR ---
0015 - PCT notified this RN that pt blood pressure = 82/47 on automatic and 83/[address] Montiel, received order to bolus NS 200ml PRN for SBP<90. 0030 - Started bolus. 0130 - Rechecked vital signs, BP = 94/56.
[2019-11-17 04:00] VITALS: BP 94/63
[2019-11-17 05:58] LABS: BASOPHILS % (AUTO) 0 % (0-10); EOSINOPHILS # (AUTO) 0.1 10^3/uL (0.0-0.3); EOSINOPHILS % (AUTO) 1 % (0-10); HEMATOCRIT 35 % (35-52); HEMOGLOBIN 11.6 G/DL (11.5-16.0); LYMPHOCYTES # (AUTO) 2.2 X 10^3 (1.0-4.0); LYMPHOCYTES % (AUTO) 18 % (12-44); MEAN CORPUSCULAR HEMOGLOBIN 35 PG (25-34); MEAN CORPUSCULAR HGB CONC 33 G/DL (32-36); MEAN CORPUSCULAR VOLUME 105 FL (80-99); MEAN PLATELET VOLUME 10.5 FL (7.4-10.4); MONOCYTES # (AUTO) 1.9 X 10^3 (0.0-1.0); MONOCYTES % (AUTO) 16 % (0-12); NEUTROPHILS # (AUTO) 7.6 X 10^3 (1.8-7.8); NEUTROPHILS % (AUTO) 65 % (42-75); PLATELET COUNT 84 10^3/uL (130-400); RED CELL DISTRIBUTION WIDTH 13.8 % (10.0-14.5); WHITE BLOOD COUNT 11.8 10^3/uL (4.3-11.0)
[2019-11-17 06:22] LABS: CALCIUM 8.5 MG/DL (8.5-10.1); CREATININE SERUM 0.95 MG/DL (0.60-1.30); MAGNESIUM 2.3 MG/DL (1.6-2.4); PHOSPHORUS 2.3 MG/DL (2.3-4.7); POTASSIUM 3.3 MMOL/L (3.6-5.0)
[2019-11-17] MEDS: OXYBUTYNIN (DITROPAN) 5 MG TAB PO SCH (06:45)
[2019-11-17 08:00] VITALS: BP 130/78
[2019-11-17] MEDS ORDERED: KCL 20 MEQ TAB (K-DUR) PO NR (08:00)
[2019-11-17] MEDS: PANTOPRAZOLE 40 MG (PROTONIX) TAB PO SCH (09:18)
[2019-11-17] MEDS: AZITHROMYCIN 250 MG TAB (ZITHROMAX) PO SCH (09:18)
[2019-11-17] MEDS: toPIRamate 25 MG (TOPAMAX) TAB PO SCH (09:19)
[2019-11-17] MEDS: predniSONE 10 MG TAB PO SCH (09:19)
[2019-11-17] MEDS: CEFDINIR 300 MG (OMNICEF) CAP PO SCH (09:21)
[2019-11-17] MEDS: ASPIRIN E.C. 81 MG (ECOTRIN) TAB PO SCH (09:21)
[2019-11-17] MEDS: DULoxetine 30 MG (CYMBALTA) CAP PO SCH (09:22)
[2019-11-17] MEDS: LEVETIRACETAM 1,000 MG (KEPPRA) TABLET PO SCH (09:24)
[2019-11-17] MEDS: DIVALPROEX EXT RELEASE 250 MG (DEPAKOTE ER) TAB PO SCH (09:24)
[2019-11-17] MEDS: DOCUSATE SODIUM 100 MG (COLACE) CAP PO SCH (09:25)
[2019-11-17] MEDS: LACTULOSE SYRUP 10GM/15ML (ENULOSE) 30ML UDC PO SCH (09:26)
--- NOTE | 2019-11-17 10:07 | Physical Therapy Daily Note ---
PT Daily Note-Current Subjective Patient agrees to PT. Incontinent urine and BM. Mental Status Patient Orientation: Confused Attachments: Oxygen Transfers SCALE: Activities may be completed with or without assistive devices. 2-Jnhkuxfdih-eoxxxjh completes the activity by him/herself with no assistance from a helper. 5-Set-up or Clean-up Assistance-helper sets up or cleans up; patient completes activity. [place] assists only prior to or following the activity. 4-Supervision or Touching Assistance-helper provides verbal cues and/or touching/steadying and/or contact guard assistance as patient completes activity. Assistance may be provided throughout the activity or intermittently. 3-Partial/Moderate Assistance-helper does LESS THAN HALF the effort. [place] lifts, holds or supports trunk or limbs, but provides less than half the effort. 2-Substantial/Maximal Assistance-helper does MORE THAN HALF the effort. [place] lifts or holds trunk or limbs and provides more than half the effort. 2-Jyddmxsim-pempxi does ALL the effort. Patient does none of the effort to complete the activity. Or, the assistance of 2 or more helpers is required for the patient to complete the activity. If activity was not attempted, code reason: 7-Patient Refused. 9-Not Applicable-not attempted and the patient did not perform the activity before the current illness, exacerbation or injury. 10-Not Attempted due to Environmental Limitations-(lack of equipment, weather restraints, etc.). 88-Not Attempted due to Medical Conditions or Safety Concerns. Roll Left & Right (QC): 5 Lying to Sitting/Side of Bed(Q: 4 Sit to Stand (QC): 4 Chair/Toh-iy-Phvds Xfer(QC): 4 Toilet Transfer (QC): 4 SBA to CGA for safety with use of FWW and gait belt Weight Bearing Right Lower Extremity: Right Weight Bearing/Tolerated Left Lower Extremity: Left Weight Bearing/Tolerated Gait Training Does the Patient Walk?: Yes Distance: 15' Walk 10 feet (QC): 4 Gait Assistive Device: FWW functional gait sequence Assessment Patient required assistance to cleanse and change patient due to incontinence. SW notified of patient LOF of CGA to SBA with all mobility. Patient up in recliner with needs met. PT Short Term Goals Short Term Goals Time Frame: November 19, 2019 Roll Left & Right: 4 Sit to lyin Lying to sitting on side of be: 4 Sit to stand: 4 Chair/uuq-sm-tvvuk transfer: 4 Toilet transfer: 4 Car transfer: 4 Walk 10 feet: 5 Walk 50 feet with two turns: 5 Walk 150 feet: 5 1 step (curb): 5 4 steps: 88 12 steps: 88 Picking up objects: 5 Does pt use a wc or scooter: No PT Grain Elevator Superintendent Goals Grain Elevator Superintendent Goals PT Grain Elevator Superintendent Goals Time Frame: November 26, 2019 Roll Left & Right (QC): 5 Sit to Lying (QC): 5 Lying-Sitting on Side/Bed(QC): 5 Sit to Stand (QC): 5 Chair/Ywo-dm-Zrgww Xfer(QC): 5 Toilet Transfer (QC): 5 Car Transfer (QC): 5 Does the Patient Walk: No and Walking Goal IS indicated Walk 10 feet (QC): 5 Walk 50ft with 2 Turns (QC): 5 Walk 150 ft (QC): 5 Walking 10ft on Uneven Surface: 0 1 Step (curb) (QC): 5 4 Steps (QC): 0 12 Steps (QC): 0 Picking up an Object (QC): 0 Wheel 50 feet with 2 turns (QC: 0 Wheel 150 feet: 0 PT Plan Treatment/Plan Treatment Plan: Continue Plan of Care Treatment Plan: Bed Mobility, Functional Activity Tang, Functional Strength, Therapeutic Exercise, Transfers Treatment Duration: November 26, 2019 Frequency: 6 times per week Estimated Hrs Per Day: .5 hour per day Time/GCodes Time In: 945 Time Out: 1001 Total Billed Treatment Time: 16 Total Billed Treatment 1 visit FA 16 min KOREY LIN PT November 17, 2019 10:07
--- NOTE | 2019-11-17 10:51 | NUR ---
CM/SS: Visit with pt at to her plan for discharge Plan: Pt will go [facility] Summary: Pt is from [facility]. Pt is not as strong as she needs to be to return to the Assisted Living. Pt will go to [facility] to get stronger and then be able to return to [facility] when she is stronger. Pt will work with physical therapy while at the nursing facility to increase strength. Pt is informed of the plan and Vero Shaw talks with pt on the phone as to the plan. Pt seems ok. Call from Lisbeth at [facility], and they are able to pick out hand pt at around 12 noon today. Pt informed of the time of pick out hand and verbalized understanding.
--- NOTE | 2019-11-17 11:21 | Occupational Ther Daily Note ---
OT Current Status-Daily Note Subjective Pt seated in recliner, agreeable to OT session. She did not report any pain during tx. ADL-Treatment Therapy Code Descriptions/Definitions Functional Sullivan Measure: 0=Not Assessed/NA 4=Minimal Assistance 1=Total Assistance 5=Supervision or Setup 2=Maximal Assistance 6=Modified Sullivan 3=Moderate Assistance 7=Complete IndependenceSCALE: Activities may be completed with or without assistive devices. 6-Xnykuxkdua-eucovlj completes the activity by him/herself with no assistance from a helper. 5-Set-up or Clean-up Assistance-helper sets up or cleans up; patient completes activity. [place] assists only prior to or following the activity. 4-Supervision or Touching Assistance-helper provides verbal cues and/or touching/steadying and/or contact guard assistance as patient completes activity. Assistance may be provided throughout the activity or intermittently. 3-Partial/Moderate Assistance-helper does LESS THAN HALF the effort. [place] lif ts, holds or supports trunk or limbs, but provides less than half the effort. 2-Substantial/Maximal Assistance-helper does MORE THAN HALF the effort. [place] lifts or holds trunk or limbs and provides more than half the effort. 0-Fhojbdssk-enxneo does ALL the effort. Patient does none of the effort to complete the activity. Or, the assistance of 2 or more helpers is required for the patient to complete the activity. If activity was not attempted, code reason: 7-Patient Refused. 9-Not Applicable-not attempted and the patient did not perform the activity before the current illness, exacerbation or injury. 10-Not Attempted due to Environmental Limitations-(lack of equipment, weather restraints, etc.). 88-Not Attempted due to Medical Conditions or Safety Concerns. Other Treatment Pt seated in recliner. OT handed pt a hair brush and she was able to brush the right side of her hair, required assistance with the right side. Pt then able to wash her face with set up of washcloth. Pt stated she would like to go home. Post OT session, pt seated in recliner, call light in reach and all needs met. Education OT Patient Education: Correct positioning, Energy conservation Teaching Recipient: Patient Teaching Methods: Discussion Response to Teaching: Reinforcement Needed OT Supervisor Instrument Repair Goals Custodial Goals Time Frame: November 29, 2019 Eating (QC): 5 Oral Hygiene (QC): 5 Toileting Hygiene (QC): 3 Upper Body Dressing (QC): 4 Lower Body Dressing (QC): 3 Additional Goals: 1-Demonstrate ADL Tasks, 2-Verbalize Understanding, 3- ImproveStrength/Tang 1=Demonstrate adherence to instructed precautions during ADL tasks. 2=Patient will verbalize/demonstrate understanding of assistive devices/modifications for ADL. 3=Patient will improve strength/tolerance for activity to enable patient to perform ADL's. OT Education/Plan Problem List/Assessment Assessment: Decreased Activ Tolerance, Decreased UE Strength, Impaired I ADL's, Impaired Self-Care Skills Pt to benefit from skilled OT intervention for ADL training, transfers, strengthening, and safety education to increase level of function and allow safe discharge. Discharge Recommendations Plan/Recommendations: Continue POC Treatment Plan/Plan of Care Patient would benefit from OT for education, treatment and training to promote independence in ADL's, mobility, safety and/or upper extremity function for ADL's. Plan of Care: ADL Retraining, Functional Mobility, UE Funct Exercise/Act Treatment Duration: November 29, 2019 Frequency: 5 times per week Estimated Hrs Per Day: .25 hour per day Rehab Potential: Fair Time/GCodes Start Time: 10:58 Stop Time: 11:06 Total Time Billed (hr/min): 8 Billed Treatment Time 1, ADL WADE ALATORRE OT November 17, 2019 11:21
[2019-11-17] MEDS: prednisoLONE 1% OPTH (PRED FORTE) 5 ML BTL OU SCH (11:35)
[2019-11-17 12:00] VITALS: BP 102/66
[2019-11-17 12:30] VITALS: BP 102/66
--- NOTE | 2019-11-17 12:30 | NUR ---
DISCHARGE INSTRUCTIONS GIVEN, VERBALIZED UNDERSTANDING, REPORT CALLED TO [facility] TO MARY BETH SPANGLER DC, SITE WITHOUT REDNESS OR SWELLING. DISMISSED PER W/C, ACCOMPANIED BY STAFF
== END 2019-11-17 12:30 | DRG 871 ==
LOC: EDUNIT# 12:40 → ER 12:41 → ICU 13:53 → 4TH 11-15 08:23
PROVIDERS: ADMIT Internal Medicine; ATTEND Internal Medicine
DX: A41.9 Sepsis, unspecified organism (principal); R65.20 Severe sepsis without septic shock; J18.9 Pneumonia, unspecified organism; N17.9 Acute kidney failure, unspecified; J42 Unspecified chronic bronchitis; T42.6X5A Adverse effect of other antiepileptic and sedative-hypnotic drugs, initial encounter; S06.9X9S Unspecified intracranial injury with loss of consciousness of unspecified duration, sequela; G40.909 Epilepsy, unspecified, not intractable, without status epilepticus; R60.9 Edema, unspecified; I25.10 Atherosclerotic heart disease of native coronary artery without angina pectoris; E78.00 Pure hypercholesterolemia, unspecified; I12.9 Hypertensive chronic kidney disease with stage 1 through stage 4 chronic kidney disease, or unspecified chronic kidney disease; N18.9 Chronic kidney disease, unspecified; G25.81 Restless legs syndrome; F03.90 Unspecified dementia, unspecified severity, without behavioral disturbance, psychotic disturbance, mood disturbance, and anxiety; R42 Dizziness and giddiness; K21.9 Gastro-esophageal reflux disease without esophagitis; K58.1 Irritable bowel syndrome with constipation; M19.91 Primary osteoarthritis, unspecified site; G47.9 Sleep disorder, unspecified; F31.9 Bipolar disorder, unspecified; L40.9 Psoriasis, unspecified; Z87.891 Personal history of nicotine dependence; Z91.81 History of falling; Z86.79 Personal history of other diseases of the circulatory system; Z20.828 Contact with and (suspected) exposure to other viral communicable diseases
CPT/HCPCS: 36415; 71045; 80048; 80053; 80076; 80164; 81000; 83605; 83735; 84100; 84145; 85007; 85025; 85027; 87040; 87635; 87804; 94760; 96361; 96374

== ENCOUNTER → 2019-11-28 | Outpatient (CLI) | payer MEDICARE, BC, MEDICAID ==
[~2019-11-28] MED LIST changes: +ASCO10006 PO; +CEFD300C3 PO; +CLOB118S3 TOP; +CLOB50SO TP; +DIVA250T12 PO; +DIVA500T15 PO; +FURO80TA3 PO; +QUET150T3 PO; +TOPI50TA13 PO; +VITA-235 PO
--- NOTE | 2019-11-28 16:50 | Diagnostic Imaging Report ---
INDICATION: Right greater tuberosity fracture, followup. TIME OF EXAM: 2:25 PM COMPARISON: 11/10/2019. FINDINGS: The glenohumeral and acromioclavicular alignment is normal. A fracture line involving the greater tuberosity of the right proximal humerus is less defined on today's study, consistent with some healing. There is some residual lucency present, however. The alignment is anatomic. No new abnormality is seen. IMPRESSION: Healing fracture involving the right greater tuberosity although the fracture line does remain partially visible. Dictated by: Dictated on workstation # [id number]
== END ==
LOC: ORTHO 14:04
PROVIDERS: ATTEND Orthopaedic Surgery
DX: S42.254D Nondisplaced fracture of greater tuberosity of right humerus, subsequent encounter for fracture with routine healing (principal)
CPT/HCPCS: 73030; 99203

== ENCOUNTER → 2019-12-18 | Outpatient (CLI) | payer MEDICARE, BC, MEDICAID ==
[~2019-12-18] MED LIST changes: +GADOBUTROL 10 MMOL/10 ML (GADAVIST) VIAL IV ONE
--- NOTE | 2019-12-18 11:27 | Diagnostic Imaging Report ---
PROCEDURE: MR imaging of the brain with and without contrast. TECHNIQUE: Multiplanar, multisequence MR imaging of the brain was performed with and without contrast. INDICATION: Altered mental status. COMPARISON: CT of the head on 11/10/2019. MRI of the brain on 09/02/2017. FINDINGS: No acute ischemia, mass, or hemorrhage. T2/FLAIR hyperintense signal is seen in the periventricular and subcortical white matter. The ventricles and cortical sulci are diffusely prominent. The basilar cisterns are symmetric and unremarkable. The sellar and suprasellar regions have a normal appearance. The flow voids are preserved. The brainstem and posterior fossa are unremarkable. The paranasal sinuses and mastoid air cells demonstrate normal signal characteristics. Bilateral lens implants are noted. The globes and orbits are symmetric and unremarkable. The scalp and calvarium have a normal appearance. IMPRESSION: 1. No acute ischemia, mass, or hemorrhage. 2. Stable nonspecific T2 hyperintense white matter changes in the periventricular and subcortical white matter. These are favored to represent chronic microvascular disease. 3. Generalized parenchymal volume loss. Dictated by: Dictated on workstation # [id number]
== END ==
LOC: RAD 09:59
PROVIDERS: ATTEND Nurse Practitioner Family
DX: R41.82 Altered mental status, unspecified (principal)
CPT/HCPCS: 70553

== ENCOUNTER → 2019-12-19 | Outpatient (CLI) | payer MEDICARE, BC, MEDICAID ==
[~2019-12-19] MED LIST changes: -GADOBUTROL 10 MMOL/10 ML (GADAVIST) VIAL IV ONE
--- NOTE | 2019-12-19 14:47 | Diagnostic Imaging Report ---
INDICATION: Fracture of the right humerus greater tuberosity. Time of exam 1:38 PM Multiple views bilateral shoulders were obtained. Correlation is made with prior radiographs from 11/28/2019. Left shoulder demonstrates normal glenohumeral alignment. There is normal acromioclavicular alignment. There continues to be a healing of the fracture of the right shoulder at the level of the greater tuberosity. There continues to be some lucency present. Alignment is anatomic. Glenohumeral and acromial clavicular alignment are maintained. IMPRESSION: Healing right proximal humerus greater tuberosity fracture. Fracture lines do remain partly visible. Dictated by: Dictated on workstation # [id number]
== END ==
LOC: ORTHO 13:05
PROVIDERS: ATTEND Orthopaedic Surgery
DX: S42.254D Nondisplaced fracture of greater tuberosity of right humerus, subsequent encounter for fracture with routine healing (principal); M75.82 Other shoulder lesions, left shoulder

== ENCOUNTER 2020-03-13 14:15 | Inpatient (IN) | payer MEDICARE, BC, MEDICAID ==
[~2020-03-13] VITALS: Ht 163 cm; Wt 101.4 kg
[2020-03-13] VITALS (9 sets, daily range): BP systolic 95–129; BP diastolic 55–98
[~2020-03-13 14:15] MED LIST changes: +ASCO100024 PO; -ASCO10006 PO; +ASPI-1238 PO; -ASPI-983 PO; +KETO120S13 TOP; -KETO120S2 TOP
[2020-03-13] MEDS ORDERED: DEXTROSE 50% 50 ML (IMS) SYR ONE (14:21)
[2020-03-13] MEDS ORDERED: NS IV 1000 ML 1,000 ML ONE (14:23)
[2020-03-13 14:26] LABS: BASOPHILS % (AUTO) 0 % (0-10); EOSINOPHILS # (AUTO) 0.2 10^3/uL (0.0-0.3); EOSINOPHILS % (AUTO) 2 % (0-10); HEMATOCRIT 38 % (35-52); HEMOGLOBIN 12.6 G/DL (11.5-16.0); LYMPHOCYTES # (AUTO) 2.4 X 10^3 (1.0-4.0); LYMPHOCYTES % (AUTO) 30 % (12-44); MEAN CORPUSCULAR HEMOGLOBIN 34 PG (25-34); MEAN CORPUSCULAR HGB CONC 33 G/DL (32-36); MEAN CORPUSCULAR VOLUME 103 FL (80-99); MEAN PLATELET VOLUME 10.2 FL (7.4-10.4); MONOCYTES # (AUTO) 1.2 X 10^3 (0.0-1.0); MONOCYTES % (AUTO) 15 % (0-12); NEUTROPHILS # (AUTO) 4.3 X 10^3 (1.8-7.8); NEUTROPHILS % (AUTO) 53 % (42-75); PLATELET COUNT 190 10^3/uL (130-400); WHITE BLOOD COUNT 8.2 10^3/uL (4.3-11.0)
[2020-03-13] MEDS ORDERED: NS IV 1000 ML 1,000 ML IV ONE ×2 (14:27→15:19)
[2020-03-13 14:42] LABS: INR 0.9 (0.8-1.4); PROTHROMBIN TIME PATIENT 12.2 SEC (12.2-14.7)
[2020-03-13 14:50] LABS: ALANINE AMINOTRANSFERASE 21 U/L (0-55); ALBUMIN 3.4 GM/DL (3.2-4.5); ALKALINE PHOSPHATASE 116 U/L (40-136); BILIRUBIN,TOTAL 0.3 MG/DL (0.1-1.0); BUN/CREATININE RATIO 16; CALCIUM 8.6 MG/DL (8.5-10.1); CARBON DIOXIDE 24 MMOL/L (21-32); CHLORIDE 99 MMOL/L (98-107); CREATININE SERUM 1.44 MG/DL (0.60-1.30); GFR ESTIMATED 36; POTASSIUM 3.8 MMOL/L (3.6-5.0); SODIUM 134 MMOL/L (135-145); TOTAL PROTEIN 6.3 GM/DL (6.4-8.2)
[2020-03-13 14:54] LABS: GLUCOSE 50 MG/DL (70-105)
--- NOTE | 2020-03-13 15:15 | NUR ---
LIS ALSO MENTIONED THAT THE PT HAS SOME RT SHOULDER ISSUES AND A CORN ON HER LT FOOT THAT BOTHERS HER.
--- NOTE | 2020-03-13 15:15 | NUR ---
SPOKE WITH LIS, PAINT ROLLER COVERMAKER AT [facility], AND INFORMED HER OF PT'S NEED TO BE ADMITTED. LIS SAID THAT THE PT CAN GET ANGRY SOMETIMES AND IF SHE DOES TO CALL LIS AT [phone] AND SHE CAN CALM HER DOWN.
--- NOTE | 2020-03-13 15:16 | Diagnostic Imaging Report ---
INDICATION: Hypotension and weakness. TIME OF EXAM: 03:05 p.m. COMPARISON: Comparison is made with prior chest from 11/15/2019. FINDINGS: The heart size is stable. The lungs are clear. No infiltrates are detected. There is no effusion or pneumothorax. There is no evidence of congestive failure. IMPRESSION: No acute cardiopulmonary process is detected. Dictated by: Dictated on workstation # [id number]
--- NOTE | 2020-03-13 15:22 | ED General ---
General Chief Complaint: Cardiac/General Problems Stated Complaint: DIZZY, WEAK Nursing Triage Note: PT TO RM [facility] BY [facility] FROM [facility] WITH CC OF HYPOTENSION, 71/39 BY EMS CONDITIONER TUMBLER, 72/48 AT TRIAGE. PT WAS WEAK AND DIZZY THIS A.M. Nursing Sepsis Screen: No Definite Risk Source of Information: Patient, EMS Exam Limitations: No Limitations History of Present Illness Date Seen by Provider: Mar 13, 2020 Time Seen by Provider: 14:19 Initial Comments Here by EMS from [facility] with report of dizziness and hypotension. Patient was noted to have blood pressure in the 70s systolic by EMS. Reports taking her meds as directed. Denies recent illness. States that she was dizzy this morning and almost fell. Ultimately this was the reason for summoning EMS. Blood sugar noted to be in the 60s. Denies cough, congestion, breathing problems but does report weakness and dizziness. Denies chest pain. Timing/Duration: 4-6 Hours Severity: Moderate Associated Systoms: No Chest Pain, No Cough, No Fever/Chills, No Headaches; Malaise; No Nausea/Vomiting, No Seizure, No Shortness of Air; Weakness Allergies and Home Medications Allergies Coded Allergies: Penicillins (Verified Allergy, Mild, 07/22/13) latex (Verified Allergy, Mild, 07/22/13) Home Medications Ascorbic Acid 1,000 Mg Tablet, 1,000 MG PO DAILY, (Reported) Aspirin 81 Mg Tablet.dr, 81 MG PO DAILY, (Reported) Atorvastatin Calcium 80 Mg Tablet, 80 MG PO HS, (Reported) Cefdinir 300 Mg Capsule, 300 MG PO BID Prescribed by: DWAYNE ROSS on 11/16/19 112 Clobetasol Propionate 118 Ml Shampoo, 1 APPLIC TOP Q72H, (Reported) Clobetasol Propionate 50 Ml Solution, 1 APPLIC TP BID, (Reported) APPLY TO THE SCALP Divalproex Sodium 250 Mg Tab.er.24h, 250 MG PO BID Prescribed by: DWAYNE ROSS on 11/16/19 112 Duloxetine HCl 60 Mg Capsule.dr, 60 MG PO DAILY, (Reported) Furosemide 80 Mg Tablet, 80 MG PO DAILY, (Reported) Lactulose 10 Gm/15 Ml Solution, 30 ML PO DAILY PRN for CONSTIPATION-1ST LINE, (Reported) Levetiracetam 1,000 Mg Tablet, 1,000 MG PO BID, (Reported) Melatonin 3 Mg Tablet, 3 MG PO HS, (Reported) Meloxicam 15 Mg Tablet, 15 MG PO DAILY, (Reported) Oxybutynin Chloride 15 Mg Tab.er.24, 15 MG PO HS, (Reported) Pantoprazole Sodium 40 Mg Tablet.dr, 40 MG PO DAILY, (Reported) Polyethylene Glycol 3350 17 Gm Powd.pack, 17 GM PO DAILY PRN for CONSTIPATION- 2ND LINE, (Reported) Prednisolone Acetate 5 Ml Drops.susp, 1 DROP OU Q48H, (Reported) Prednisone 10 Mg Tab, 10 MG PO DAILY, (Reported) Quetiapine Fumarate 150 Mg Tab.er.24h, 150 MG PO HS, (Reported) Spironolactone 100 Mg Tablet, 100 MG PO DAILY, (Reported) Topiramate 50 Mg Tablet, 50 MG PO BID, (Reported) Vitamin E (Dl,Tocopheryl Acet) 400 Unit Capsule, 400 UNIT PO DAILY, (Reported) Patient Home Medication List Home Medication List Reviewed: Yes Review of Systems Review of Systems Constitutional: see HPI; No chills, No fever EENTM: No nose congestion, No throat pain Respiratory: No cough, No short of breath Cardiovascular: No chest pain, No edema Gastrointestinal: No abdominal pain, No nausea, No vomiting Genitourinary: no symptoms reported Musculoskeletal: No muscle pain; muscle weakness Skin: no symptoms reported Psychiatric/Neurological: See HPI All Other Systems Reviewed Negative Unless Noted: Yes Past Vuutbah-Miqfdn-Gilzbr Hx Past Med/Social Hx: Reviewed Nursing Past Med/Soc Hx Patient Social History Alcohol Use: Denies Use Recreational Drug Use: No Smoking Status: Former Smoker Type Used: Cigarettes Former Smoker, Quit: Jul 05, 2013 2nd Hand Smoke Exposure: Yes Recent Foreign Travel: No Contact w/Someone Who Travel: No Recent Infectious Disease Expo: No Recent Hopitalizations: No Immunizations Up To Date Tetanus Booster (TDap): Unknown Date of Influenza Vaccine: Apr 11, 2018 Seasonal Allergies Seasonal Allergies: No Past Medical History Surgeries: Yes Gallbladder, Lumpectomy Respiratory: Yes (BRONCHITIS) Chronic Bronchitis Currently Using CPAP: No Cardiac: Yes Chronic Edema/Swelling, Coronary Artery Disease, High Cholesterol, Hypertension, Rheumatic Fever Neurological: Yes (ENCEPHALITIS, restless leg syndrome) Concussion, Dementia, Seizure Disorder, Traumatic Brain Injury, Vertigo Reproductive Disorders: No Female Reproductive Disorders: Denies Sexually Transmitted Disease: No HIV/AIDS: No Genitourinary: Yes (CHRONIC RENAL INSUFFICIENCY; BLADDER CONTROL ISSUES?) Gastrointestinal: Yes ("STOMACH DISCOMFORT"--POST-CHOLECYSTECTOMY SYNDROME) Gastroesophageal Reflux, Chronic Constipation, Chronic Diarrhea, Gall Bladder Disease, Irritable Bowel Musculoskeletal: Yes Arthritis Endocrine: No HEENT: Yes (READING GLASSES) Loss of Vision: Bilateral Hearing Impairment: Denies Cancer: No Psychosocial: Yes Sleep Difficulties, Bipolar Integumentary: Yes Psoriasis Blood Disorders: No Adverse Reaction/Blood Tranf: No Family Medical History Reviewed Nursing Family Hx Cancer 03 FATHER (PANCREATIC CANCER) 09 BROTHER ( AT AGE 10) Family history: Cardiovascular disease 03 MOTHER Family history: Diabetes mellitus 03 MOTHER Heart disease 03 MOTHER No Pertinent Family Hx Physical Exam-Suspected Sepsis Physical Exam Vital Signs Vital Signs - First Documented 03/13/20 14:17 Temp 36.3 Pulse 52 Resp 18 B/P (MAP) 72/48 (56) O2 Delivery Room Air Capillary Refill : Less Than 3 Seconds Blood Pressure Mean: 56 Height, Weight, BMI Height: 5'4.00" Weight: 166lbs. 0.0oz. [id number]; 33.00 BMI Method:Stated General Appearance: No Apparent Distress, WD/WN HEENT: PERRL/EOMI, Pharynx Normal Neck: Non Tender, Supple Respiratory: Lungs Clear, Normal Breath Sounds Cardiovascular: Regular Rate, Rhythm, No Murmur Gastrointestinal: Non Tender, Soft Back: Normal Inspection, No CVA Tenderness, No Vertebral Tenderness Extremity: Normal Range of Motion, Non Tender, Pedal Edema (2+ bilateral lower extremity edema to knees.) Neurologic/Psychiatric: Alert, Oriented x3 Skin: normal color, warm/dry Focused Exam Lactate Level 03/13/20 14:23: Lactic Acid Level 2.56*H 03/13/20 16:30: Lactic Acid Level 1.31 Lactic Acid Level Laboratory Tests Test 03/13/20 14:23 03/13/20 16:30 Lactic Acid Level 2.56 MMOL/L (0.50-2.00) *H 1.31 MMOL/L (0.50-2.00) Procedures/Interventions Lumen: triple Central Line Procedure: betadine prep, sterile drapes applied, sterile dressing applied Position: internal jugular (R) Anesthesia: Lidocaine Volume Anesthetic (ccs): 4 Complications: none Post Position: sutured, good blood return, position confirmed w/ CXR Placed due to persistent hypotension and the need for pressors. Patient consented and on chart. Progress/Results/Core Measures Suspected Sepsis Recent Fever Within 48 Hours: No Infection Criteria Present: None New/Unexplained Altered Menta: No Sepsis Screen: No Definite Risk SIRS Temperature: Pulse: 52 Respiratory Rate: 18 Laboratory Tests 03/13/20 14:20: White Blood Count 8.2 Blood Pressure 72 /48 Mean: 56 03/13/20 14:23: Lactic Acid Level 2.56*H 03/13/20 16:30: Lactic Acid Level 1.31 Laboratory Tests 03/13/20 14:20: Creatinine 1.44H, INR Comment 0.9, Platelet Count 190, Total Bilirubin 0.3 Results/Orders Lab Results Laboratory Tests Test 03/13/20 14:20 03/13/20 14:22 03/13/20 14:23 03/13/20 15:29 Range/Units White Blood Count 8.2 4.3-11.0 10^3/uL Red Blood Count 3.69 L 4.35-5.85 10^6/uL Hemoglobin 12.6 11.5-16.0 G/DL Hematocrit 38 35-52 % Mean Corpuscular Volume 103 H 80-99 FL Mean Corpuscular Hemoglobin 34 25-34 PG Mean Corpuscular Hemoglobin Concent 33 32-36 G/DL Red Cell Distribution Width 13.4 10.0-14.5 % Platelet Count 190 130-400 10^3/uL Mean Platelet Volume 10.2 7.4-10.4 FL Neutrophils (%) (Auto) 53 42-75 % Lymphocytes (%) (Auto) 30 12-44 % Monocytes (%) (Auto) 15 H 0-12 % Eosinophils (%) (Auto) 2 0-10 % Basophils (%) (Auto) 0 0-10 % Neutrophils # (Auto) 4.3 1.8-7.8 X 10^3 Lymphocytes # (Auto) 2.4 1.0-4.0 X 10^3 Monocytes # (Auto) 1.2 H 0.0-1.0 X 10^3 Eosinophils # (Auto) 0.2 0.0-0.3 10^3/uL Basophils # (Auto) 0.0 0.0-0.1 10^3/uL Prothrombin Time 12.2 12.2-14.7 SEC INR Comment 0.9 0.8-1.4 Activated Partial Thromboplast Time 28 24-35 SEC D-Dimer 0.90 H 0.00-0.49 UG/ML Sodium Level 134 L 135-145 MMOL/L Potassium Level 3.8 3.6-5.0 MMOL/L Chloride Level 99 98-107 MMOL/L Carbon Dioxide Level 24 21-32 MMOL/L Anion Gap 11 5-14 MMOL/L Blood Urea Nitrogen 23 H 7-18 MG/DL Creatinine 1.44 H 0.60-1.30 MG/DL Estimat Glomerular Filtration Rate 36 BUN/Creatinine Ratio 16 Glucose Level 50 *L 70-105 MG/DL Calcium Level 8.6 8.5-10.1 MG/DL Corrected Calcium 9.1 8.5-10.1 MG/DL Total Bilirubin 0.3 0.1-1.0 MG/DL Aspartate Amino Transf (AST/SGOT) 39 H 5-34 U/L Alanine Aminotransferase (ALT/SGPT) 21 0-55 U/L Alkaline Phosphatase 116 40-136 U/L Troponin I < 0.028 <0.028 NG/ML C-Reactive Protein High Sensitivity 0.20 0.00-0.50 MG/DL Total Protein 6.3 L 6.4-8.2 GM/DL Albumin 3.4 3.2-4.5 GM/DL Procalcitonin 0.05 <0.10 NG/ML Glucometer 64 L 80 70-110 MG/DL Lactic Acid Level 2.56 *H 0.50-2.00 MMOL/L Test 03/13/20 15:45 03/13/20 16:08 03/13/20 16:30 03/13/20 18:06 Range/Units Valproic Acid (Depakene) Level 49.6 L 50.0-100.0 UG/ML Urine Color YELLOW Urine Clarity SL CLOUDY Urine pH 6.5 5-9 Urine Specific [place] <=1.005 1.016-1.022 Urine Protein NEGATIVE NEGATIVE Urine Glucose (UA) NEGATIVE NEGATIVE Urine Ketones NEGATIVE NEGATIVE Urine Nitrite NEGATIVE NEGATIVE Urine Bilirubin NEGATIVE NEGATIVE Urine Urobilinogen 0.2 < = 1.0 MG/DL Urine Leukocyte Esterase NEGATIVE NEGATIVE Urine RBC (Auto) NEGATIVE NEGATIVE Urine RBC NONE /HPF Urine WBC NONE /HPF Urine Crystals NONE /LPF Urine Bacteria TRACE /HPF Urine Casts NONE /LPF Urine Mucus NEGATIVE /LPF Urine Culture Indicated NO Lactic Acid Level 1.31 0.50-2.00 MMOL/L Glucometer 60 *L 70-110 MG/DL My Orders Orders - THERESE FINN MD Cbc With Automated Diff (03/13/20 14:18) Comprehensive Metabolic Panel (03/13/20 14:18) Blood Culture (03/13/20 14:18) Sputum Culture (03/13/20 14:18) Urinalysis (03/13/20 14:18) Urine Culture (03/13/20 14:18) Protime With Inr (03/13/20 14:18) Partial Thromboplastin Time (03/13/20 14:18) Chest 1 View, Ap/Pa Only (03/13/20 14:18) Ed Iv/Invasive Line Start (03/13/20 14:18) Ed Iv/Invasive Line Start (03/13/20 14:18) Ekg Tracing (03/13/20 14:18) Troponin I (03/13/20 14:18) Vital Signs Adult Sepsis Patie Q15M (03/13/20 14:18) O2 (03/13/20 14:18) Remove Rings In Anticipation O (03/13/20 14:18) Lactic Acid Analyzer (03/13/20 14:18) D50w (Emergency) Syringe (Dextrose 50% 5 (03/13/20 14:21) Ed Iv/Invasive Line Start (03/13/20 14:27) Ns Iv 1000 Ml (Sodium Chloride 0.9%) (03/13/20 14:27) Ns Iv 1000 Ml (Sodium Chloride 0.9%) (03/13/20 14:23) Ns Iv 1000 Ml (Sodium Chloride 0.9%) (03/13/20 15:19) Valproic Acid (03/13/20 16:22) Hs C Reactive Protein (03/13/20 16:38) Procalcitonin (Pct) (03/13/20 16:38) Hydrocortisone Injection (Solu-Cortef In (03/13/20 16:45) Lactated Ringers (Lr 1000 Ml Iv Solution (03/13/20 16:46) Lactated Ringers (Lr 1000 Ml Iv Solution (03/13/20 16:42) Iohexol Injection (Omnipaque 350 Mg/Ml 1 (03/13/20 18:00) Received Contrast (Hold Metformin- Contr (03/13/20 18:00) Ns (Ivpb) (Sodium Chloride 0.9% Ivpb Bag (03/13/20 18:00) Vancomycin Injection (Vancomycin Injecti (03/13/20 18:00) Cefepime Injection (Maxipime Injection) (03/13/20 18:00) Medications Given in ED Current Medications Medications Dose Ordered Sig/Cory Route Start Time Stop Time Status Last Admin Dose Admin Dextrose 50 ml STK-MED ONCE .ROUTE 03/13/20 14:21 03/13/20 14:25 DC 03/13/20 14:39 25 ML Hydrocortisone Sodium Succinate 100 mg ONCE ONCE IV 03/13/20 16:45 03/13/20 16:46 DC 03/13/20 16:49 100 MG Lactated Ringer's 1,000 ml @ 0 mls/hr Q0M ONCE IV 03/13/20 16:46 03/13/20 16:47 DC 03/13/20 16:49 1,000 MLS/HR Sodium Chloride 1,000 ml @ 0 mls/hr Q0M ONCE IV 03/13/20 14:27 03/13/20 14:28 DC 03/13/20 14:39 1,000 MLS/HR Sodium Chloride 1,000 ml @ 0 mls/hr Q0M ONCE IV 03/13/20 15:19 03/13/20 15:21 DC 03/13/20 15:43 1,000 MLS/HR Vital Signs/I&O 03/13/20 03/13/20 14:17 17:52 Temp 36.3 Pulse 52 55 Resp 18 B/P (MAP) 72/48 (56) 61/34 O2 Delivery Room Air Capillary Refill : Less Than 3 Seconds Blood Pressure Mean: 56 Progress Note : Progress Note Seen and evaluated. IV, labs, blood cultures and lactic acid, UA and normal saline 1 L bolus. This was repeated 1. Also received 25 mL of D50 for lower blood sugar in the 60s. Monitor patient. 1618: Labs and chest x-ray reviewed. Patient still has not urinated. Santo catheter to be placed. Third liter of fl uid with LR 1 L bolus initiated. Patient still hypotensive and we will have to consider central line placement. Monitor patient. 1800: Patient remained hypotensive. Central line placed and Levophed initiated. I have discussed the case at length with Dr. Adames. We will get CT of the chest, abdomen and pelvis with contrast to rule out intrathoracic and intra-abdominal pathology such as abscess as a cause. We will initiate broad-spectrum antibiotics due to concerns for sepsis due to lactic acidosis and persistent hypotension despite 30 mL/kg of IV fluid. 1820: Levophed initiated and blood pressure 94/62. I attest a focused exam at this time. Cefepime 1 g IV and vancomycin 1750 mg IV ordered. Patient to get CT scan in route to ICU with Dr. Adames to follow results. Patient agrees to plan. Central line was pulled back a few centimeters per radiology recommendations. ECG Initial ECG Impression Date: Mar 13, 2020 Initial ECG Impression Time: 14:25 Initial ECG Rate: 51 Initial ECG Rhythm: Normal Sinus Diagnostic Imaging Diagonstic Imaging: Xray Plain Films/CT/US/NM/MRI: chest Comments [facility] [place], [place] NAME: APPLE VILLELA [facility] REC#: [id number] PT STATUS: REG ER : 1950 PHYSICIAN: THERESE FINN MD ADMIT DATE: 03/13/20/ER Signed Date of Exam:03/13/20 CHEST 1 VIEW, AP/PA ONLY INDICATION: Hypotension and weakness. TIME OF EXAM: 03:05 p.m. COMPARISON: Comparison is made with prior chest from 11/15/2019. FINDINGS: The heart size is stable. The lungs are clear. No infiltrates are detected. There is no effusion or pneumothorax. There is no evidence of congestive failure. IMPRESSION: No acute cardiopulmonary process is detected. Dictated by: Dictated on workstation # [id number] Dict: 03/13/20 1513 Trans: 03/13/20 1523 AS6 [id number] Interpreted by: VANDANA RAMON MD Electronically signed by: VANDANA RAMON MD 03/13/20 1523 Diagonstic Imaging: Xray Plain Films/CT/US/NM/MRI: chest Comments [facility]. [place], [place] NAME: APPLE VILLELA [facility] REC#: [id number] PT STATUS: REG ER : 1950 PHYSICIAN: CHIKA URBINA ADMIT DATE: 03/13/20/ER Draft Date of Exam:03/13/20 CHEST 1 VIEW, AP/PA ONLY EXAM: Chest 1 view, AP/PA only INDICATION: Central line placement. Hypotension. COMPARISON: Chest radiograph 03/13/2020 at 3:05 PM. FINDINGS: New right IJ CVC tip in the RA. Cardiomegaly with pulmonary vascular congestion. Mild atelectasis or infiltrate in the left lung base. No pneumothorax. No pleural effusion. No acute osseous finding. IMPRESSION: 1. New right IJ CVC tip in the RA. This could be withdrawn approximately 3-4 cm. 2. Cardiomegaly with pulmonary vascular congestion is similar to the prior exam. Dictated on workstation # [id number] Dict: 03/13/20 1757 Trans: 03/13/20 1800 [facility] [id number] Interpreted by: JIM LION MD Electronically signed by: Departure Communication (Admissions) Time/Spoke to Admitting Phy: 17:35 Impression Primary Impression: Septic shock Additional Impression: Lactic acidosis Disposition: ADMITTED INPATIENT Condition: Stable Admissions Decision to Admit Reason: Admit from ER (General) Decision to Admit/Date: Mar 13, 2020 Time/Decision to Admit Time: 17:35 Departure-Patient Inst. Referrals: JOVON LING MD (PCP/Family) Primary Care Physician THERESE FINN MD Mar 13, 2020 15:22
[2020-03-13 16:18] LABS: BILIRUBIN,URINE NEGATIVE (NEGATIVE); CLARITY,URINE SL CLOUDY; COLOR,URINE YELLOW; GLUCOSE, URINE (UA) NEGATIVE (NEGATIVE); KETONES,URINE NEGATIVE (NEGATIVE); LEUKOCYTE ESTERASE ,URINE NEGATIVE (NEGATIVE); NITRITE,URINE NEGATIVE (NEGATIVE); PH,URINE 6.5 (5-9); PROTEIN,URINE NEGATIVE (NEGATIVE)
[2020-03-13 16:40] LABS: BACTERIA,URINE TRACE /HPF
[2020-03-13] MEDS ORDERED: LACTATED RINGERS 1,000 ML IV ONE ×2 (16:42→16:46)
[2020-03-13] MEDS ORDERED: HYDROCORTISONE 100 MG/2 ML (Solu-CORTEF) VIAL IV ONE (16:45)
[2020-03-13] MEDS ORDERED: NOREPINEPHRINE 4 MG/250 ML 250 ML IV SCH (17:45)
[2020-03-13] MEDS ORDERED: HOLD METFORMIN - RECEIVED CONTRAST 20 ML VIAL IV SCH (18:00)
[2020-03-13] MEDS ORDERED: CEFEPIME INJECTION 1,000 MG in WATER (STERILE) FOR INJECTION 10 ML IV ONE (18:00)
[2020-03-13] MEDS ORDERED: IOHEXOL 350 MG/ML 100 ML (OMNIPAQUE 350) VIAL IV ONE (18:00)
[2020-03-13] MEDS ORDERED: VANCOMYCIN INJECTION 1,000 MG in NS (IVPB) 250 ML IV ONE (18:00)
[2020-03-13] MEDS ORDERED: NS 100 ML (IVPB) BAG IV ONE (18:00)
--- NOTE | 2020-03-13 18:00 | Diagnostic Imaging Report ---
EXAM: Chest 1 view, AP/PA only INDICATION: Central line placement. Hypotension. COMPARISON: Chest radiograph 03/13/2020 at 3:05 PM. FINDINGS: New right IJ CVC tip in the RA. Cardiomegaly with pulmonary vascular congestion. Mild atelectasis or infiltrate in the left lung base. No pneumothorax. No pleural effusion. No acute osseous finding. IMPRESSION: 1. New right IJ CVC tip in the RA. This could be withdrawn approximately 3-4 cm. 2. Cardiomegaly with pulmonary vascular congestion is similar to the prior exam. Dictated by: Dictated on workstation # [id number]
[2020-03-13] MEDS ORDERED: VANCOMYCIN 1,750 MG/NS 500 ML IVPB IV NR ×2 (19:00)
--- NOTE | 2020-03-13 19:08 | Diagnostic Imaging Report ---
CLINICAL INDICATION: Patient with lactic acidosis and hypotension. EXAM: Axial CT scan of the chest, abdomen and pelvis performed with 75 cc of Omnipaque 350 IV contrast. Coronal and sagittal reformatted images were created. COMPARISON: CT scan of the abdomen and pelvis with contrast dated 08/05/2018. FINDINGS: CT chest: There is dependent atelectasis around the posterior aspects of both lungs which has developed in the interim. Otherwise, the lungs are clear. There is no pleural effusion or pneumothorax. There is no pericardial fluid collection. Visualized portions of the thyroid gland shows a 5 mm low-density nodule. There is no significant mediastinal, hilar or axillary lymphadenopathy. The thoracic aorta shows no aneurysmal dilation or aneurysm. Four vessel aortic arch is seen with the left vertebral artery arising from the aortic arch. Limited visualization of pulmonary arteries show no significant abnormality. Heart size appears to be within normal limits. There are degenerative spurs involving the lower thoracic spine. CT abdomen and pelvis: The gallbladder is surgically resected. There is no significant intrahepatic or extrahepatic ductal dilation. The liver is unremarkable. The spleen, pancreas and adrenal glands are unremarkable. There is cortical thinning involving both kidneys. Otherwise both kidneys are unremarkable with no hydronephrosis, stones or mass. Santo catheter is seen within the bladder. The bladder is decompressed. The visualized portions of the uterus and adnexal regions show no significant abnormality. There is no intra-abdominal free air or free fluid. There is no intra-abdominal or pelvic lymphadenopathy. Appendix is unremarkable. There is minimal nonspecific fluid along the right paracolic gutter. The colon near the area of fluid is unremarkable with no bowel wall thickening. There is no intestinal obstruction. There is a moderate to large amount of stool seen from the rectum all the way to the mid transverse colon. The stomach is decompressed and otherwise unremarkable. The abdominal aorta shows no aneurysmal dilation. The extra-abdominal and extra-pelvic soft tissue structures are unremarkable. There are degenerative spurs involving the lumbar spine. IMPRESSION: 1: There is nonspecific small amount of fluid along the right paracolic gutter of unknown etiology. The appendix is unremarkable. There is no bowel wall thickening in the region. 2: There is moderate to large amount of stool within the colon extending from the rectum to the mid transverse colon. 3: The remainder of this exam shows no acute abdominal or pelvic process. 4: There is mild atelectasis involving both lungs. Otherwise chest shows no acute finding. Dictated by: Dictated on workstation # [id number]
[2020-03-13] MEDS ORDERED: ONDANSETRON 4 MG/2 ML (SDV) Z0FRAN IV PRN (19:15)
[2020-03-13] MEDS ORDERED: CATHETER FLUSH 10 ML SYR IV PRN (19:15)
[2020-03-13] MEDS ORDERED: EPINEPHrine 1 MG INJECTION 4 MG in NS (IVPB) 248 ML IV SCH (19:15)
[2020-03-13] MEDS: LACTATED RINGERS 1,000 ML IV SCH (19:39)
--- NOTE | 2020-03-13 21:17 | NUR ---
Call to E ICU at this time for VTE Prophylaxis.
[2020-03-13] MEDS: NOREPINEPHRINE 4 MG/250 ML 250 ML IV SCH (21:39)
[2020-03-13] MEDS: VASOPRESSIN INJECTION 20 UNIT in NORMAL SALINE 100 ML IV SCH (21:39)
[2020-03-14] VITALS (15 sets, daily range): BP systolic 90–132; BP diastolic 50–93
[2020-03-14] MEDS: HYDROCORTISONE 100 MG/2 ML (Solu-CORTEF) VIAL IV SCH ×3 (00:03→15:13)
[2020-03-14] MEDS ORDERED: DOCUSATE SODIUM 100 MG (COLACE) CAP PO ONE ×2 (00:13→00:15)
[2020-03-14] MEDS ORDERED: LACTULOSE SYRUP 10GM/15ML (ENULOSE) 30ML UDC ONE (00:13)
[2020-03-14] MEDS ORDERED: LACTULOSE SYRUP 10GM/15ML (ENULOSE) 30ML UDC PO ONE (00:15)
--- NOTE | 2020-03-14 00:30 | NUR ---
EARL CORNELIUS CALLED PER PT REQUEST FOR SOMETHING FOR CONSTIPATION, SEE EMAR FOR NEW ORDERS.
[2020-03-14] MEDS: CEFEPIME 1,000 MG/SWFI 10 ML IV PUSH IV SCH ×8 (01:36→20:56)
[2020-03-14] MEDS: LACTATED RINGERS 1,000 ML IV SCH ×4 (01:44→23:02)
[2020-03-14 03:21] LABS: BASOPHILS % (AUTO) 0 % (0-10); EOSINOPHILS % (AUTO) 0 % (0-10); HEMATOCRIT 37 % (35-52); LYMPHOCYTES # (AUTO) 0.6 X 10^3 (1.0-4.0); LYMPHOCYTES % (AUTO) 8 % (12-44); MEAN CORPUSCULAR HEMOGLOBIN 33 PG (25-34); MEAN CORPUSCULAR HGB CONC 32 G/DL (32-36); MEAN CORPUSCULAR VOLUME 103 FL (80-99); MEAN PLATELET VOLUME 10.2 FL (7.4-10.4); MONOCYTES # (AUTO) 0.4 X 10^3 (0.0-1.0); MONOCYTES % (AUTO) 5 % (0-12); NEUTROPHILS # (AUTO) 6.9 X 10^3 (1.8-7.8); NEUTROPHILS % (AUTO) 87 % (42-75); PLATELET COUNT 187 10^3/uL (130-400); WHITE BLOOD COUNT 7.9 10^3/uL (4.3-11.0)
[2020-03-14 03:39] LABS: BUN/CREATININE RATIO 18; CALCIUM 8.2 MG/DL (8.5-10.1); CARBON DIOXIDE 21 MMOL/L (21-32); CHLORIDE 109 MMOL/L (98-107); CREATININE SERUM 0.92 MG/DL (0.60-1.30); GFR ESTIMATED > 60; GLUCOSE 78 MG/DL (70-105); MAGNESIUM 2.1 MG/DL (1.6-2.4); PHOSPHORUS 2.6 MG/DL (2.3-4.7); POTASSIUM 3.6 MMOL/L (3.6-5.0); SODIUM 139 MMOL/L (135-145)
[2020-03-14 04:12] LABS: LYMPHOCYTES % (MANUAL) 10 %; MONOCYTES % (MANUAL) 3 %; NEUTROPHILS % (MANUAL) 87 %
[2020-03-14 04:13] LABS: ANISOCYTOSIS MODERATE; POIKILOCYTOSIS MODERATE
--- NOTE | 2020-03-14 04:23 | Pulmonary Consultation ---
RY SUÁREZ MED STUDENT 03/14/20 0423: History of Present Illness History of Present Illness Date Seen by Provider: Mar 14, 2020 Time Seen by Provider: 04:00 Date of Admission History of Present Illness Marcela Gibbs is a 69 year old female seen today after being admitted from the ED, where she was seen due to dizziness and hypotension. She was started on levophed yesterday, and her blood pressure has improved. Last night she complained of constipation, was given lactulose and docusate, and she reports having a bowel movement. Otherwise she reports feeling much improved this morning, no recurrence of dizziness. She reports having a sore throat and blurry vision yesterday, reports these symptoms have resolved. She reports having a sore on her R foot that is being treated at her assisted living facility. Denies fevers, chills, CP, palpitaitons, SOB, cough, abdominal pain, nausea. Allergies and Home Medications Allergies Coded Allergies: Penicillins (Verified Allergy, Mild, 07/22/13) latex (Verified Allergy, Mild, 07/22/13) Home Medications Ascorbic Acid 1,000 Mg Tablet, 1,000 MG PO DAILY, (Reported) Aspirin 81 Mg Tablet.dr, 81 MG PO DAILY, (Reported) Atorvastatin Calcium 80 Mg Tablet, 80 MG PO HS, (Reported) Cefdinir 300 Mg Capsule, 300 MG PO BID Prescribed by: DWAYNE ROSS on 11/16/19 1121 Clobetasol Propionate 118 Ml Shampoo, 1 APPLIC TOP Q72H, (Reported) Clobetasol Propionate 50 Ml Solution, 1 APPLIC TP BID, (Reported) APPLY TO THE SCALP Divalproex Sodium 250 Mg Tab.er.24h, 250 MG PO BID Prescribed by: DWAYNE ROSS on 11/16/19 112 Duloxetine HCl 60 Mg Capsule.dr, 60 MG PO DAILY, (Reported) Furosemide 80 Mg Tablet, 80 MG PO DAILY, (Reported) Lactulose 10 Gm/15 Ml Solution, 30 ML PO DAILY PRN for CONSTIPATION-1ST LINE, (Reported) Levetiracetam 1,000 Mg Tablet, 1,000 MG PO BID, (Reported) Melatonin 3 Mg Tablet, 3 MG PO HS, (Reported) Meloxicam 15 Mg Tablet, 15 MG PO DAILY, (Reported) Oxybutynin Chloride 15 Mg Tab.er.24, 15 MG PO HS, (Reported) Pantoprazole Sodium 40 Mg Tablet.dr, 40 MG PO DAILY, (Reported) Polyethylene Glycol 3350 17 Gm Powd.pack, 17 GM PO DAILY PRN for CONSTIPATION- 2ND LINE, (Reported) Prednisolone Acetate 5 Ml Drops.susp, 1 DROP OU Q48H, (Reported) Prednisone 10 Mg Tab, 10 MG PO DAILY, (Reported) Quetiapine Fumarate 150 Mg Tab.er.24h, 150 MG PO HS, (Reported) Spironolactone 100 Mg Tablet, 100 MG PO DAILY, (Reported) Topiramate 50 Mg Tablet, 50 MG PO BID, (Reported) Vitamin E (Dl,Tocopheryl Acet) 400 Unit Capsule, 400 UNIT PO DAILY, (Reported) Past Zoxrnfr-Kyqxai-Fzvacs Hx Past Med/Social Hx: Reviewed Nursing Past Med/Soc Hx Patient Social History Alcohol Use: Denies Use Recreational Drug Use: No Smoking Status: Current Everyday Smoker Type Used: Cigarettes Former Smoker, Quit: Jul 05, 2013 2nd Hand Smoke Exposure: Yes Recent Foreign Travel: No Contact w/Someone Who Travel: No Recent Infectious Disease Expo: No Recent Hopitalizations: No Physical Abuse: No Sexual Abuse: No Mistreated: No Fear: No Immunizations Up To Date Tetanus Booster (TDap): Unknown PED Vaccines UTD: No Date of Influenza Vaccine: Apr 11, 2018 Seasonal Allergies Seasonal Allergies: No Past Medical History Surgeries: Yes Gallbladder, Lumpectomy Respiratory: Yes (BRONCHITIS) Chronic Bronchitis Currently Using CPAP: No Cardiac: Yes Chronic Edema/Swelling, Coronary Artery Disease, High Cholesterol, Hypertension, Rheumatic Fever Neurological: Yes (ENCEPHALITIS, restless leg syndrome) Concussion, Dementia, Seizure Disorder, Traumatic Brain Injury, Vertigo : No Reproductive Disorders: No Female Reproductive Disorders: Denies Sexually Transmitted Disease: No HIV/AIDS: No Genitourinary: Yes (CHRONIC RENAL INSUFFICIENCY; BLADDER CONTROL ISSUES?) Gastrointestinal: Yes ("STOMACH DISCOMFORT"--POST-CHOLECYSTECTOMY SYNDROME) Gastroesophageal Reflux, Chronic Constipation, Chronic Diarrhea, Gall Bladder Disease, Irritable Bowel Musculoskeletal: Yes Arthritis Endocrine: No HEENT: Yes (READING GLASSES) Loss of Vision: Bilateral Hearing Impairment: Denies Cancer: No Psychosocial: Yes Sleep Difficulties, Bipolar Integumentary: Yes Psoriasis Blood Disorders: No Adverse Reaction/Blood Tranf: No Family Medical History Reviewed Nursing Family Hx Cancer 03 FATHER (PANCREATIC CANCER) 09 BROTHER ( AT AGE 10) Family history: Cardiovascular disease 03 MOTHER Family history: Diabetes mellitus 03 MOTHER Heart disease 03 MOTHER No Pertinent Family Hx Review of Systems Constitutional: No: Fever, Chills ENT: Nose congestion (chronic); No: Throat pain Respiratory: No: Cough, Shortness of breath Cardiovascular: No: Chest Pain, Palpitations Gastrointestinal: Constipation; No: Nausea, Vomiting, Abdominal Pain, Diarrhea Genitourinary: No Dysuria, No Frequency, No Retention Neurological: No: Weakness, Numbness Sepsis Event Evaluation Height, Weight, BMI Height: 5'4.00" Weight: 166lbs. 0.0oz. 75.309993qm; 33.00 BMI Method:Stated Exam Exam Vital Signs Date Time Temp Pulse Resp B/P (MAP) Pulse Ox O2 Delivery O2 Flow Rate FiO2 03/14/20 04:00 Room Air 03/14/20 03:00 52 14 110/92 (98) 98 Room Air 03/14/20 02:00 66 20 110/55 (73) 99 Room Air 03/14/20 01:00 64 03/14/20 01:00 62 20 110/60 (77) 97 Room Air 03/14/20 00:00 50 25 90/61 (71) 100 Room Air 03/14/20 00:00 Room Air 03/14/20 00:00 Room Air 03/13/20 23:00 50 19 95/60 (72) 100 Room Air 03/13/20 22:00 59 24 115/68 (84) 99 Room Air 03/13/20 21:00 58 13 112/75 (87) 100 Room Air 03/13/20 20:30 62 10 105/60 (75) 99 Room Air 03/13/20 20:30 Room Air 03/13/20 20:00 61 22 111/70 (84) 98 Room Air 03/13/20 19:32 50 03/13/20 19:30 57 17 129/64 (85) 98 Room Air 03/13/20 19:15 56 20 111/63 (79) 98 Room Air 03/13/20 19:00 56 20 108/55 (72) 98 Room Air 03/13/20 18:55 36.4 65 20 100/98 (99) 95 Room Air 03/13/20 18:50 36.3 65 18 102/65 (43) 98 Room Air 03/13/20 17:52 55 61/34 03/13/20 14:17 36.3 52 18 72/48 (56) Room Air I & O0 03/14/20 07:00 Intake Total 5812.5 ml Output Total 2200 ml Balance 3612.5 ml Height & Weight Height: 5'4.00" Weight: 166lbs. 0.0oz. 75.215720bn; 33.00 BMI Method:Stated General Appearance: No Apparent Distress, Obese HEENT: PERRL/EOMI; No Scleral Icterus (L), No Scleral Icterus (R) Neck: Non Tender, Supple Respiratory: No Accessory Muscle Use, No Respiratory Distress, Crackles Cardiovascular: Regular Rate, Rhythm, No Murmur, Normal Peripheral Pulses Capillary Refill: NONE Peripheral Pulses: 2+ Dorsalis Pedis (R), 2+ Left Dors-Pedis (L), 2+ Radial Pulses (R), 2+ Radial Pulses (L) Gastrointestinal: normal bowel sounds, non tender, soft Extremity: Normal Capillary Refill, Calf Tenderness (bilateral), Pedal Edema (2+ bilateral lower extremity edema to knees.) Neurologic/Psychiatric: Alert, Oriented x3, Normal Mood/Affect Skin: Normal Color, Warm/Dry Results Lab Laboratory Tests 03/13/20 14:20 03/14/20 03:10 Assessment/Plan Assessment/Plan Hypotension - BP 110/92 on 0.2 levophed, IV LR - on Vanc and Cefepime due to concern for septic shock - given hydrocortisone Lactic Acidosis - 1.98 at 19:15 yesterday - continue IV fluids JUANJO POSEY DO 03/14/20 0615: History of Present Illness History of Present Illness Time Seen by Provider: 06:13 Allergies and Home Medications Allergies Coded Allergies: Penicillins (Verified Allergy, Mild, 07/22/13) latex (Verified Allergy, Mild, 07/22/13) Home Medications Ascorbic Acid 1,000 Mg Tablet, 1,000 MG PO DAILY, (Reported) Aspirin 81 Mg Tablet.dr, 81 MG PO DAILY, (Reported) Atorvastatin Calcium 80 Mg Tablet, 80 MG PO HS, (Reported) Cefdinir 300 Mg Capsule, 300 MG PO BID Prescribed by: DWAYNE ROSS on 11/16/19 1121 Clobetasol Propionate 118 Ml Shampoo, 1 APPLIC TOP Q72H, (Reported) Clobetasol Propionate 50 Ml Solution, 1 APPLIC TP BID, (Reported) APPLY TO THE SCALP Divalproex Sodium 250 Mg Tab.er.24h, 250 MG PO BID Prescribed by: DWAYEN ROSS on 11/16/19 1121 Duloxetine HCl 60 Mg Capsule.dr, 60 MG PO DAILY, (Reported) Furosemide 80 Mg Tablet, 80 MG PO DAILY, (Reported) Lactulose 10 Gm/15 Ml Solution, 30 ML PO DAILY PRN for CONSTIPATION-1ST LINE, (Reported) Levetiracetam 1,000 Mg Tablet, 1,000 MG PO BID, (Reported) Melatonin 3 Mg Tablet, 3 MG PO HS, (Reported) Meloxicam 15 Mg Tablet, 15 MG PO DAILY, (Reported) Oxybutynin Chloride 15 Mg Tab.er.24, 15 MG PO HS, (Reported) Pantoprazole Sodium 40 Mg Tablet.dr, 40 MG PO DAILY, (Reported) Polyethylene Glycol 3350 17 Gm Powd.pack, 17 GM PO DAILY PRN for CONSTIPATION- 2ND LINE, (Reported) Prednisolone Acetate 5 Ml Drops.susp, 1 DROP OU Q48H, (Reported) Prednisone 10 Mg Tab, 10 MG PO DAILY, (Reported) Quetiapine Fumarate 150 Mg Tab.er.24h, 150 MG PO HS, (Reported) Spironolactone 100 Mg Tablet, 100 MG PO DAILY, (Reported) Topiramate 50 Mg Tablet, 50 MG PO BID, (Reported) Vitamin E (Dl,Tocopheryl Acet) 400 Unit Capsule, 400 UNIT PO DAILY, (Reported) Past Ztcgpcb-Wtneiu-Mguwto Hx Family Medical History Cancer 03 FATHER (PANCREATIC CANCER) 09 BROTHER ( AT AGE 10) Family history: Cardiovascular disease 03 MOTHER Family history: Diabetes mellitus 03 MOTHER Heart disease 03 MOTHER Exam Exam General Appearance: No Apparent Distress, Obese HEENT: PERRL/EOMI Neck: Non Tender, Supple Respiratory: No Accessory Muscle Use, No Respiratory Distress, Crackles Assessment/Plan Assessment/Plan Hypotension r/o Hypothyroid vs adrenal insuff -Off Levophed now -Solucortef -Doubt Infection. Gardner cultures pending -Currently on Vanc and Cefepime Sinus bradycardia probable Hypothyroid --Check Free T 4 and Free T 3 Dehdration -IVF LR 150 Lactic Acidosis - Improved RY SUÁREZ MED STUDENT Mar 14, 2020 04:23 JUANJO POSEY DO Mar 14, 2020 06:15
[2020-03-14] MEDS: POTASSIUM CL 10MEQ/50ML IVPB 50 ML IV SCH ×3 (04:49→06:51)
[2020-03-14] MEDS: NOREPINEPHRINE 4 MG/250 ML 250 ML IV SCH ×3 (04:51→15:13)
[2020-03-14] MEDS: VASOPRESSIN INJECTION 20 UNIT in NORMAL SALINE 100 ML IV SCH ×3 (04:51→21:15)
[2020-03-14] MEDS: MAGNESIUM 1 GM/100 ML IVPB 100 ML IV SCH (04:52)
[2020-03-14] MEDS: KCL 20 MEQ TAB (K-DUR) PO SCH (04:52)
--- NOTE | 2020-03-14 08:02 | Diagnostic Imaging Report ---
INDICATION: Dyspnea. EXAMINATION: Chest 03/14/2020 FINDINGS: COMPARISON: 03/13/2020. The heart is normal in appearance. Pulmonary vascular congestion is noted with right base atelectasis or early infiltrate. No effusions or pneumothorax. There is a right jugular line with tip in the distal SVC. IMPRESSION: 1. Right infrahilar atelectasis versus infiltrate. Dictated by: Dictated on workstation # [id number]
--- NOTE | 2020-03-14 10:20 | History & Physical-Hospitalist ---
History of Present Illness HPI/Chief Complaint Pt is a 69-year-old female with past medical history of seizure disorders who presented to the ER due to dizziness. he was found to be incredibly hypotensive and treated with high volume fluid resuscitation. D espite this her blood pressures did not improve and she required levo fed to maintain her blood pressure. At the time of admission the source of infection could be found at presentation was sorting for sepsis. She was admitted to the ICU. She states her symptoms have only gone on for the past day or 2. She has no specific complaints. This morning's chest x-ray reveals a pneumonia. This is likely the source of her sepsis. She reports feeling much better and is actually requesting to discharge home. Source: patient Date Seen 03/14/20 Time Seen by a Provider: 08:30 Attending Physician Betty Adames MD PCP Addy Farr MD Referring Physician Date of Admission Mar 13, 2020 at 17:50 Home Medications & Allergies Home Medications Reviewed patient Home Medication Reconciliation performed by pharmacy medication reconciliations optometric technician and/or nursing. Patients Allergies have been reviewed. Allergies Allergies Coded Allergies Penicillins (Verified Allergy, Mild, 07/22/13) latex (Verified Allergy, Mild, 07/22/13) Past Jyfsjdz-Icsjff-Ttniwt Hx Past Med/Social Hx: Reviewed Nursing Past Med/Soc Hx Patient Social History Alcohol Use: Denies Use Recreational Drug Use: No Smoking Status: Current Everyday Smoker Former Smoker, Quit: Jul 05, 2013 Type Used: Cigarettes 2nd Hand Smoke Exposure: Yes Recent Foreign Travel: No Contact w/other who traveled: No Recent Hopitalizations: No Recent Infectious Disease Expo: No Immunizations Up To Date Tetanus Booster (TDap): Unknown Pediatric: No Date of Influenza Vaccine: Apr 11, 2018 Seasonal Allergies Seasonal Allergies: No Past Medical History Surgeries: Gallbladder, Lumpectomy Currently Using CPAP: No Cardiac: Chronic Edema/Swelling, Coronary Artery Disease, High Cholesterol, Hypertension, Rheumatic Fever Neurological: Concussion, Dementia, Seizure Disorder, Traumatic Brain Injury, Vertigo : No Reproductive: No Sexually Transmitted Disease: No HIV/AIDS: No Female Reproductive Disorders: Denies Gastrointestinal: Gastroesophageal Reflux, Chronic Constipation, Chronic Diarrhea, Gall Bladder Disease, Irritable Bowel Musculoskeletal: Arthritis Loss of Vision: Bilateral Hearing Impairment: Denies Psychosocial: Sleep Difficulties, Bipolar Skin/Integumentary: Psoriasis History of Blood Disorders: No Adverse Reaction to Blood Mckoy: No Family History Reviewed Nursing Family Hx Cancer 03 FATHER (PANCREATIC CANCER) 09 BROTHER ( AT AGE 10) Family history: Cardiovascular disease 03 MOTHER Family history: Diabetes mellitus 03 MOTHER Heart disease 03 MOTHER No Pertinent Family Hx Review of Systems Constitutional: No chills; dizziness; No fever; malaise EENTM: no symptoms reported Respiratory: No cough, No short of breath Cardiovascular: No chest pain, No edema, No palpitations Gastrointestinal: No abdominal pain, No nausea, No vomiting Genitourinary: No dysuria, No frequency Musculoskeletal: no symptoms reported Skin: no symptoms reported Psychiatric/Neurological: No Symptoms Reported Physical Exam Physical Exam Vital Signs Vital Signs - First Documented 03/13/20 03/13/20 14:17 18:50 Temp 36.3 Pulse 52 Resp 18 B/P (MAP) 72/48 (56) Pulse Ox 98 O2 Delivery Room Air Capillary Refill : Greater Than 3 SecondsGreater Than 3 Seconds Height, Weight, BMI Height: 5'4.00" Weight: 166lbs. 0.0oz. 75.449323lo; 33.00 BMI Method:Stated General Appearance: No Apparent Distress, Chronically ill Eyes: Bilateral Eye Normal Inspection HEENT: PERRL/EOMI, Moist Mucous Membranes; No Scleral Icterus (L), No Scleral Icterus (R) Neck: Supple, Other (central line in place) Cardiovascular: Regular Rate, Rhythm, No Murmur Gastrointestinal: Normal Bowel Sounds, Non Tender, Soft Extremity: Normal Capillary Refill, Non Tender, No Calf Tenderness, No Pedal Edema Neurologic/Psychiatric: Alert, Oriented x3 (slightly confused about timing but otherwise oriented), Normal Mood/Affect Results Results/Procedures Labs Laboratory Tests 03/15/20 02:30 03/16/20 05:20 Patient resulted labs reviewed. Imaging: Reviewed Imaging Report Assessment/Plan Admission Diagnosis Hypotension Admission Status: Inpatient Order (span 2 midnights) Reason for Inpatient Admission: see below Assessment and Plan hypotension likely due to septic shock Off pressors this AM ?right sided infiltrate on CXRcontinue IV antibiotics Await cultures TSH up, check T3/T4 Check cortisol level as is on chronic daily steroids Continue Solucortef Hypoglycemia Not on any diabetic meds PEG Creatinine 1.44 on admission, improved with IVF Seizure disorder Continue home antiepileptics Valproic acid is low DVT ppx: heparin Diagnosis/Problems Diagnosis/Problems (1) Lactic acidosis Status: Resolved Resolution Date/Time: 11/16/19 @ 16:38 (2) Septic shock Status: Acute (3) Acute kidney injury superimposed on chronic kidney disease Status: Resolved Resolution Date/Time: 11/16/19 @ 16:38 (4) Seizure disorder Status: Chronic (5) History of traumatic brain injury Status: Chronic Clinical Quality Measures DVT/VTE Risk/Contraindication: Risk Factor Score Per Nursin RFS Level Per Nursing on Admit: 4+=Very High BETTY ADAMES MD Mar 14, 2020 10:20
[2020-03-14] MEDS ORDERED: PRAM0.5T9 PO (11:29)
[2020-03-14] MEDS ORDERED: QUET50TA55 PO (11:29)
[2020-03-14] MEDS ORDERED: ACET325C7 PO (11:29)
[2020-03-14] MEDS ORDERED: DIPH25CA48 PO (11:29)
[2020-03-14] MEDS ORDERED: FURO40TA4 PO (11:29)
[2020-03-14] MEDS ORDERED: DIVA-21 PO (11:29)
--- NOTE | 2020-03-14 11:37 | NUR ---
I ENTERED THE MED REC USING THE ORDER REPORT FROM [facility] I DID REACH OUT TO [facility] TO CLARIFY THE DIRECTIONS ON DEPAKOTE ER 500MG, THE DIRECTIONS ON THE ORDER REPORT ARE FOLLOWS " GIVE 1 TABLET BY MOUTH TWO TIMES A DAY RELATED TO EPILEPSY, UNSPECIFIED TO TO EQUAL 1000MG BID (EXT MED HISTORY SHOW #120 DISPENSED FOR A 30 DAY SUPPLY). PER THE NURSE AT [facility] THE PT IS TAKING 2 (500MG) TABS TWICE DAILY
[2020-03-14] MEDS ORDERED: VANCOMYCIN 1250 MG/NS 250 ML IVPB IV SCH ×2 (19:00)
[2020-03-14] MEDS: LEVETIRACETAM 1,000 MG (KEPPRA) TABLET PO SCH (20:56)
[2020-03-14] MEDS: PRAMIPEXOLE 0.5 MG TAB (MIRAPEX) PO SCH (20:57)
[2020-03-14] MEDS: toPIRamate 25 MG (TOPAMAX) TAB PO SCH (20:57)
[2020-03-14] MEDS: QUEtiapine 100 MG (SEROquel) TAB IMMEDIATE RELEASE PO SCH (20:58)
[2020-03-14] MEDS: DIVALPROEX EXT RELEASE 500 MG (DEPAKOTE ER) TAB PO SCH (20:58)
[2020-03-15] VITALS (15 sets, daily range): BP systolic 90–134; BP diastolic 51–78
[2020-03-15] MEDS: HYDROCORTISONE 100 MG/2 ML (Solu-CORTEF) VIAL IV SCH ×2 (01:03→08:27)
[2020-03-15] MEDS: NOREPINEPHRINE 4 MG/250 ML 250 ML IV SCH ×2 (01:23→08:56)
[2020-03-15] MEDS: CEFEPIME 1,000 MG/SWFI 10 ML IV PUSH IV SCH ×8 (02:23→23:46)
[2020-03-15 02:39] LABS: BASOPHILS % (AUTO) 0 % (0-10); EOSINOPHILS % (AUTO) 0 % (0-10); HEMATOCRIT 36 % (35-52); HEMOGLOBIN 11.6 G/DL (11.5-16.0); LYMPHOCYTES # (AUTO) 1.3 X 10^3 (1.0-4.0); LYMPHOCYTES % (AUTO) 12 % (12-44); MEAN CORPUSCULAR HEMOGLOBIN 34 PG (25-34); MEAN CORPUSCULAR HGB CONC 32 G/DL (32-36); MEAN CORPUSCULAR VOLUME 104 FL (80-99); MEAN PLATELET VOLUME 10.3 FL (7.4-10.4); MONOCYTES # (AUTO) 0.9 X 10^3 (0.0-1.0); MONOCYTES % (AUTO) 8 % (0-12); NEUTROPHILS # (AUTO) 8.4 X 10^3 (1.8-7.8); NEUTROPHILS % (AUTO) 80 % (42-75); PLATELET COUNT 166 10^3/uL (130-400); WHITE BLOOD COUNT 10.5 10^3/uL (4.3-11.0)
[2020-03-15 02:48] LABS: CHLORIDE 110 MMOL/L (98-107); POTASSIUM 3.8 MMOL/L (3.6-5.0); SODIUM 140 MMOL/L (135-145)
[2020-03-15 02:49] LABS: CALCIUM 8.4 MG/DL (8.5-10.1)
[2020-03-15 02:50] LABS: GLUCOSE 102 MG/DL (70-105)
[2020-03-15 02:51] LABS: TOTAL PROTEIN 5.6 GM/DL (6.4-8.2)
[2020-03-15 02:52] LABS: BILIRUBIN,TOTAL 0.4 MG/DL (0.1-1.0); CARBON DIOXIDE 21 MMOL/L (21-32)
[2020-03-15 02:54] LABS: ALKALINE PHOSPHATASE 85 U/L (40-136); CREATININE SERUM 0.79 MG/DL (0.60-1.30); GFR ESTIMATED > 60; PHOSPHORUS 2.3 MG/DL (2.3-4.7)
[2020-03-15 02:55] LABS: BUN/CREATININE RATIO 15
[2020-03-15 02:57] LABS: ALANINE AMINOTRANSFERASE 19 U/L (0-55)
[2020-03-15] MEDS: VASOPRESSIN INJECTION 20 UNIT in NORMAL SALINE 100 ML IV SCH (03:48)
--- NOTE | 2020-03-15 04:06 | Pulmonary Progress Note ---
RY SUÁREZ MED STUDENT 03/15/20 0406: Subjective Date Seen by a Provider: Mar 15, 2020 Time Seen by a Provider: 03:50 Subjective/Events-last exam Marcela Gibbs is a 69 year old female seen today due to hypotension and dizziness. She was found to be constipated 03/14, received lactulose and docusate, reports she has had two bowel movements. Feels that her fatigue and light headedness have been improving. She was somnolent, fell asleep frequently while speaking to her. Review of Systems General: Chills (feels cold, has not felt feverish); No Night Sweats HEENT: No Sinus Congestion, No Sore Throat Pulmonary: No Dyspnea, No Cough Cardiovascular: Lt Headedness (improving); No: Chest Pain, Palpitations Gastrointestinal: No: Nausea, Vomiting, Abdominal Pain, Diarrhea, Constipation Genitourinary: No Dysuria, No Frequency, No Retention Neurological: No: Weakness, Numbness Sepsis Event Evaluation Height, Weight, BMI Height: 5'4.00" Weight: 166lbs. 0.0oz. 75.281187if; 33.00 BMI Method:Stated Focused Exam Lactate Level 03/13/20 14:23: Lactic Acid Level 2.56*H 03/13/20 16:30: Lactic Acid Level 1.31 03/13/20 19:15: Lactic Acid Level 1.98 Exam Exam Vital Signs Date Time Temp Pulse Resp B/P (MAP) Pulse Ox O2 Delivery O2 Flow Rate FiO2 03/15/20 01:00 50 03/15/20 00:15 36.4 03/15/20 00:00 70 14 90/51 (64) 98 Room Air 03/14/20 23:00 73 25 119/93 (102) 99 Room Air 03/14/20 22:00 76 25 117/61 (79) 99 Room Air 03/14/20 21:00 71 31 109/56 (73) 99 Room Air 03/14/20 20:00 71 37 113/54 (73) 100 Room Air 03/14/20 19:30 36.7 03/14/20 19:00 67 23 100 Room Air 03/14/20 19:00 80 03/14/20 17:45 75 15 132/72 (92) 100 Room Air 9/10/20 16:00 Room Air 03/14/20 15:55 36.5 03/14/20 15:15 55 27 121/50 (73) Room Air 03/14/20 12:37 74 03/14/20 12:00 79 12 111/65 (80) 98 Room Air 03/14/20 12:00 Room Air 03/14/20 11:00 36.6 03/14/20 08:45 69 13 115/57 (76) 99 Room Air 03/14/20 08:00 Room Air 03/14/20 07:00 36.7 Room Air 03/14/20 06:47 64 03/14/20 06:00 58 25 125/63 (83) 98 Room Air 03/14/20 05:00 59 21 91/50 (64) 97 Room Air I & O0 03/15/20 07:00 Intake Total 2405 ml Output Total 1202 ml Balance 1203 ml Height & Weight Height: 5'4.00" Weight: 166lbs. 0.0oz. 75.959352xi; 33.00 BMI Method:Stated General Appearance: No Apparent Distress, Obese HEENT: PERRL/EOMI; No Scleral Icterus (L), No Scleral Icterus (R) Neck: Non Tender, Supple Respiratory: Lungs Clear, Normal Breath Sounds, No Accessory Muscle Use, No Respiratory Distress Cardiovascular: No Murmur, Normal Peripheral Pulses, Bradycardia Capillary Refill: Less Than 3 Seconds Peripheral Pulses: 2+ Dorsalis Pedis (R), 2+ Left Dors-Pedis (L), 2+ Radial Pulses (R), 2+ Radial Pulses (L) Extremity: Normal Capillary Refill, Non Tender, No Calf Tenderness, Pedal Edema (2+ bilateral lower extremity edema to knees.) Neurologic/Psychiatric: Alert, Oriented x3, Normal Mood/Affect Skin: Normal Color, Warm/Dry Results Lab Laboratory Tests 03/13/20 14:20 03/14/20 03:10 03/15/20 02:30 Assessment/Plan Assessment/Plan Hypotension r/o Hypothyroid vs adrenal insuff - currently on solucortef - cultures negative - cortisol AM 29.8 from 3:10 10 - currently on Vanc and Cefepime Sinus bradycardia probable Hypothyroid - T3 0.81, T4 2.49 Dehdration - IVF LR 150 Lactic Acidosis - Improved JUANJO POSEY DO 03/15/20 0756: Assessment/Plan Assessment/Plan Hypotension r/o Hypothyroid vs adrenal insuff - currently on solucortef - cultures negative - cortisol AM 29.8 from 3:10 03/14 - currently on Vanc and Cefepime Sinus bradycardia - T3 0.81, T4 2.49 Dehdration - IVF LR 150 Lactic Acidosis - Improved RY SUÁREZ MED STUDENT Mar 15, 2020 04:06 JUANJO POSEY DO Mar 15, 2020 07:56
[2020-03-15] MEDS: POTASSIUM CL 10MEQ/50ML IVPB 50 ML IV SCH (05:12)
[2020-03-15] MEDS: MAGNESIUM 1 GM/100 ML IVPB 100 ML IV SCH (05:12)
[2020-03-15] MEDS: KCL 20 MEQ TAB (K-DUR) PO SCH (05:12)
[2020-03-15] MEDS: LACTATED RINGERS 1,000 ML IV SCH (05:19)
--- NOTE | 2020-03-15 06:59 | Diagnostic Imaging Report ---
REASON FOR EXAMINATION: Septic shock. Upright AP portable chest was obtained and compared to yesterday. Heart size is within normal limits. Central line projects to the lower SVC. Improving aeration to both lungs with decreasing atelectasis in the right infrahilar region. No effusion or pneumothorax. No edema or heart failure. IMPRESSION: 1. Improving aeration to the lungs with decreasing atelectasis in the right infrahilar space. Dictated by: Dictated on workstation # [id number]
[2020-03-15] MEDS: toPIRamate 25 MG (TOPAMAX) TAB PO SCH ×2 (08:28→19:47)
[2020-03-15] MEDS: LEVETIRACETAM 1,000 MG (KEPPRA) TABLET PO SCH ×2 (08:28→19:43)
[2020-03-15] MEDS: DIVALPROEX EXT RELEASE 500 MG (DEPAKOTE ER) TAB PO SCH ×2 (08:28→19:43)
--- NOTE | 2020-03-15 09:02 | Progress Note - Hospitalist ---
Subjective HPI/CC On Admission Date Seen by Provider: Mar 15, 2020 Time Seen by Provider: 08:57 is a 69-year-old female with past medical history of seizure disorders who presented to the ER due to dizziness. Subjective/Events-last exam Pt reports doing well today. No specific complaints. BP better. Focused Exam Lactate Level 03/13/20 14:23: Lactic Acid Level 2.56*H 03/13/20 16:30: Lactic Acid Level 1.31 03/13/20 19:15: Lactic Acid Level 1.98 Objective Exam Vital Signs Vital Signs Date Time Temp Pulse Resp B/P (MAP) Pulse Ox O2 Delivery O2 Flow Rate FiO2 03/15/20 08:00 75 15 128/59 (82) 100 Room Air 03/15/20 08:00 36.2 Capillary Refill : Greater Than 3 SecondsLess Than 3 Seconds General Appearance: No Apparent Distress, Chronically ill, Obese Respiratory: Lungs Clear, No Respiratory Distress Cardiovascular: Regular Rate, Rhythm, No Murmur Neurologic/Psychiatric: Alert, Oriented x3 Results/Procedures Lab Laboratory Tests 03/15/20 02:30 Patient resulted labs reviewed. Assessment/Plan Assessment and Plan Assess & Plan/Chief Complaint hypotension likely due to septic shock ?right sided infiltrate on CXRcontinue Cefepime, DC Vanc Blood culture with NGTD Thyroid function normal DC Solucortef and cortisol level 29 Hypoglycemia Not on any diabetic meds PEG- resolved Seizure disorder Continue home antiepileptics Valproic acid is low DVT ppx: heparin Diagnosis/Problems Diagnosis/Problems (1) Lactic acidosis Status: Resolved Resolution Date/Time: 11/16/19 @ 16:38 (2) Septic shock Status: Acute (3) Acute kidney injury superimposed on chronic kidney disease Status: Resolved Resolution Date/Time: 11/16/19 @ 16:38 (4) Seizure disorder Status: Chronic (5) History of traumatic brain injury Status: Chronic Clinical Quality Measures DVT/VTE Risk/Contraindication: Risk Factor Score Per Nursin RFS Level Per Nursing on Admit: 4+=Very High BETTY LEAL MD Mar 15, 2020 09:02
--- NOTE | 2020-03-15 09:25 | NUR ---
CM/SS visited with patient for discharge planning. Plan: The patient will return to [facility] living tomorrow 03/16. CM/SS contacted [facility] ([phone]) and spoke with Anthony to inform her of planned discharge for tomorrow. Anthony reports that she will not be there during the day but will see her in the evening. 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 She verbalized understanding. JA/SS to fax updated clinical. The patient reports that she has lived at [facility] for the past 15 years. She states that she has built relationships with the staff and residents there. Her brother Addy is the Durable Power of Mortgage Specialist but lives in [place]. She reports that they are close and he likes to assist with her care. CM/SS contacted the patient's DPOA Addy to inform him of patient's discharge. He verbalized understanding and had further medical questions. CM/SS contacted the patient's primary care nurse and asked her to contact JOHN.
--- NOTE | 2020-03-15 10:40 | NUR ---
Report given to CINDY Hoyos. Patient transported to 4th floor via wheelchair, accompanied by staff. No new complaints. No acute changes. Vitals have remained stable.
--- NOTE | 2020-03-15 11:00 | NUR ---
PATIENT ORIENTED TO ROOM, CALL LIGHT WITHIN REACH, UP IN CHAIR, SHOOK PATENT WITH EDGARDO COLOR URINE, RESP EVEN, DENIES PAIN OR SOB, IV SITE RIGHT AC WITHOUT REDNESS OR DRAINAGE, RIGHT IJ DRESSING HAS DRIED BLOOD, LOWER LEGS EDEMATOUS
[2020-03-15] MEDS ORDERED: VASOPRESSIN INJECTION 20 UNIT in NS (IVPB) 100 ML IV SCH (11:15)
[2020-03-15] MEDS ORDERED: CEPH-507 PO (15:07)
[2020-03-15] MEDS: QUEtiapine 100 MG (SEROquel) TAB IMMEDIATE RELEASE PO SCH (19:42)
[2020-03-15] MEDS: PRAMIPEXOLE 0.5 MG TAB (MIRAPEX) PO SCH (19:43)
[2020-03-16 04:00] VITALS: BP 118/55
[2020-03-16] MEDS: CEFEPIME 1,000 MG/SWFI 10 ML IV PUSH IV SCH ×4 (04:29→10:26)
[2020-03-16 05:34] LABS: BASOPHILS % (AUTO) 0 % (0-10); EOSINOPHILS % (AUTO) 0 % (0-10); HEMATOCRIT 34 % (35-52); LYMPHOCYTES # (AUTO) 2.5 X 10^3 (1.0-4.0); LYMPHOCYTES % (AUTO) 27 % (12-44); MEAN CORPUSCULAR HEMOGLOBIN 34 PG (25-34); MEAN CORPUSCULAR HGB CONC 32 G/DL (32-36); MEAN CORPUSCULAR VOLUME 105 FL (80-99); MEAN PLATELET VOLUME 10.2 FL (7.4-10.4); MONOCYTES # (AUTO) 1.3 X 10^3 (0.0-1.0); MONOCYTES % (AUTO) 14 % (0-12); NEUTROPHILS # (AUTO) 5.5 X 10^3 (1.8-7.8); NEUTROPHILS % (AUTO) 59 % (42-75); PLATELET COUNT 163 10^3/uL (130-400); WHITE BLOOD COUNT 9.3 10^3/uL (4.3-11.0)
[2020-03-16 05:41] LABS: ALBUMIN 2.7 GM/DL (3.2-4.5); CHLORIDE 110 MMOL/L (98-107); POTASSIUM 3.8 MMOL/L (3.6-5.0); SODIUM 139 MMOL/L (135-145)
[2020-03-16 05:43] LABS: CALCIUM 8.3 MG/DL (8.5-10.1)
[2020-03-16 05:44] LABS: GLUCOSE 77 MG/DL (70-105); TOTAL PROTEIN 5.2 GM/DL (6.4-8.2)
[2020-03-16 05:45] LABS: CARBON DIOXIDE 21 MMOL/L (21-32)
[2020-03-16 05:46] LABS: BILIRUBIN,TOTAL 0.3 MG/DL (0.1-1.0)
[2020-03-16 05:47] LABS: ALKALINE PHOSPHATASE 88 U/L (40-136); PHOSPHORUS 1.7 MG/DL (2.3-4.7)
[2020-03-16 05:48] LABS: GFR ESTIMATED > 60
[2020-03-16 05:49] LABS: BUN/CREATININE RATIO 23
[2020-03-16 05:50] LABS: ALANINE AMINOTRANSFERASE 21 U/L (0-55)
[2020-03-16] MEDS: POTASSIUM CL 10MEQ/50ML IVPB 50 ML IV SCH (05:59)
[2020-03-16] MEDS: MAGNESIUM 1 GM/100 ML IVPB 100 ML IV SCH (05:59)
[2020-03-16] MEDS: KCL 20 MEQ TAB (K-DUR) PO SCH (05:59)
[2020-03-16 08:00] VITALS: BP 133/63
[2020-03-16] MEDS: DIVALPROEX EXT RELEASE 500 MG (DEPAKOTE ER) TAB PO SCH (08:10)
[2020-03-16] MEDS: LEVETIRACETAM 1,000 MG (KEPPRA) TABLET PO SCH (08:10)
[2020-03-16] MEDS: toPIRamate 25 MG (TOPAMAX) TAB PO SCH (08:10)
--- NOTE | 2020-03-16 11:43 | Discharge Inst-Simple/Standard ---
Discharge Inst-Standard Discharge Medications New, Converted or Re-Newed RX: Transmitted to Pharmacy Patient Instructions/Follow Up Plan of Care/Instructions/FU: please continue taking your medications as written. Please follow up with your primary care doctor Dr. Farr in the next week. Activity as Tolerated: Yes Discharge Diet: No Restrictions Return to The Hospital For: fever, chest pain, shortness of breath, confusion, low blood pressures, if you feel you are getting worse. Planned Outpatient Orders/Ref. Pneu Vac Indicated: Yes BETTY LEAL MD Mar 16, 2020 11:43
[2020-03-16] MEDS ORDERED: ACETAMINOPHEN 500 MG TAB (TYLENOL) PO PRN (12:45)
== END 2020-03-16 13:00 | DRG 871 ==
LOC: EDUNIT# 14:15 → ER 14:17 → ICU 17:50 → 4TH 03-15 10:55
PROVIDERS: ADMIT Family Medicine; ATTEND Family Medicine
PROC: 02HV33Z Insertion of Infusion Device into Superior Vena Cava, Percutaneous Approach (ICD-10-PCS; principal; 2020-03-13)
DX: A41.9 Sepsis, unspecified organism (principal); R65.21 Severe sepsis with septic shock; J18.9 Pneumonia, unspecified organism; E87.2 Acidosis; N17.9 Acute kidney failure, unspecified; E86.0 Dehydration; E16.2 Hypoglycemia, unspecified; I12.9 Hypertensive chronic kidney disease with stage 1 through stage 4 chronic kidney disease, or unspecified chronic kidney disease; N18.9 Chronic kidney disease, unspecified; I25.10 Atherosclerotic heart disease of native coronary artery without angina pectoris; E78.00 Pure hypercholesterolemia, unspecified; G25.81 Restless legs syndrome; F03.90 Unspecified dementia, unspecified severity, without behavioral disturbance, psychotic disturbance, mood disturbance, and anxiety; G40.909 Epilepsy, unspecified, not intractable, without status epilepticus; K21.9 Gastro-esophageal reflux disease without esophagitis; M19.91 Primary osteoarthritis, unspecified site; F31.9 Bipolar disorder, unspecified; L40.9 Psoriasis, unspecified; E03.9 Hypothyroidism, unspecified; Z87.891 Personal history of nicotine dependence; Z87.820 Personal history of traumatic brain injury
CPT/HCPCS: 36415; 51702; 71045; 71260; 74177; 80048; 80053; 80164; 81000; 82533; 82962; 83605; 83735; 84100; 84145; 84439; 84443; 84481; 84484; 85007; 85025; 85027; 85379; 85610; 85730; 86141; 87040; 87081; 87088; 93005

== ENCOUNTER 2020-04-10 08:55 | Inpatient (IN) | payer MEDICARE, BC, MEDICAID ==
[~2020-04-10] VITALS: Ht 167 cm; Wt 92.0 kg
[~2020-04-10 08:55] MED LIST changes: +ACET325C7 PO; +CEPH-507 PO; +DIPH25CA48 PO; +DIVA-21 PO; -PANT40TA3 PO; +PANT40TA52 PO; +PRAM0.5T9 PO; +QUET50TA55 PO
[2020-04-10] MEDS ORDERED: NS IV 1000 ML 1,000 ML ONE (09:11)
[2020-04-10] MEDS ORDERED: NS IV 1000 ML 1,000 ML IV SCH (09:15)
[2020-04-10 09:17] LABS: BASOPHILS % (AUTO) 0 % (0-10); EOSINOPHILS # (AUTO) 0.1 10^3/uL (0.0-0.3); EOSINOPHILS % (AUTO) 2 % (0-10); HEMATOCRIT 31 % (35-52); HEMOGLOBIN 10.4 g/dL (11.5-16.0); LYMPHOCYTES # (AUTO) 2.6 10^3/uL (1.0-4.0); LYMPHOCYTES % (AUTO) 29 % (12-44); MEAN CORPUSCULAR HEMOGLOBIN 33 pg (25-34); MEAN CORPUSCULAR HGB CONC 34 g/dL (32-36); MEAN CORPUSCULAR VOLUME 98 fL (80-99); MEAN PLATELET VOLUME 9.4 fL (9.0-12.2); MONOCYTES # (AUTO) 1.5 10^3/uL (0.0-1.0); MONOCYTES % (AUTO) 16 % (0-12); NEUTROPHILS # (AUTO) 4.6 10^3/uL (1.8-7.8); NEUTROPHILS % (AUTO) 50 % (42-75); PLATELET COUNT 203 10^3/uL (130-400); WHITE BLOOD COUNT 9.2 10^3/uL (4.3-11.0)
[2020-04-10 09:27] LABS: BILIRUBIN,URINE NEGATIVE (NEGATIVE); CLARITY,URINE SL CLOUDY; COLOR,URINE YELLOW; GLUCOSE, URINE (UA) NEGATIVE (NEGATIVE); KETONES,URINE NEGATIVE (NEGATIVE); LEUKOCYTE ESTERASE ,URINE 2+ (NEGATIVE); NITRITE,URINE POSITIVE (NEGATIVE); PROTEIN,URINE NEGATIVE (NEGATIVE)
[2020-04-10 09:28] LABS: INR 0.9 (0.8-1.4); PROTHROMBIN TIME PATIENT 12.4 SEC (12.2-14.7)
[2020-04-10 09:31] LABS: ALBUMIN 3.1 GM/DL (3.2-4.5); POTASSIUM 3.1 MMOL/L (3.6-5.0)
[2020-04-10 09:33] LABS: CALCIUM 8.1 MG/DL (8.5-10.1)
[2020-04-10 09:34] LABS: TOTAL PROTEIN 5.4 GM/DL (6.4-8.2)
[2020-04-10 09:35] LABS: BILIRUBIN,TOTAL 0.3 MG/DL (0.1-1.0)
[2020-04-10 09:37] LABS: CREATININE SERUM 1.3 MG/DL (0.60-1.30)
[2020-04-10 09:38] LABS: BACTERIA,URINE LARGE /HPF
[2020-04-10 09:40] LABS: MAGNESIUM 1.9 MG/DL (1.6-2.4)
[2020-04-10] MEDS ORDERED: LACTATED RINGERS 1,000 ML IV ONE (09:41)
--- NOTE | 2020-04-10 09:42 | NUR ---
NOTIFIED OF CONTINUING HYPOTENSION AND GLUCOSE OF 48.
[2020-04-10] MEDS ORDERED: DEXTROSE 50% 50 ML (IMS) SYR IV ONE ×2 (09:45→11:45)
--- NOTE | 2020-04-10 10:09 | Diagnostic Imaging Report ---
INDICATION: Chest pain and lightheadedness Frontal chest obtained at 0943 a.m. and compared to 03/15/2020 Heart is borderline in size. There is mild central vascular prominence. There is mild right basilar infiltrate versus atelectasis. There is no pneumothorax or pleural fluid. IMPRESSION: Cardiomegaly. There is mild right basilar infiltrate versus atelectasis. There is no pneumothorax or pleural fluid. Dictated by: Dictated on workstation # [id number]
--- NOTE | 2020-04-10 10:36 | NUR ---
IN WITH THE PT AT THIS TIME.
[2020-04-10 10:42] LABS: INR 1.1 (0.8-1.4); PROTHROMBIN TIME PATIENT 14.5 SEC (12.2-14.7)
[2020-04-10] MEDS ORDERED: NS IV 1000 ML 1,000 ML IV ONE (11:07)
[2020-04-10] MEDS ORDERED: MEROPENEM 500 MG in WATER (STERILE) FOR INJECTION 10 ML IV ONE (11:15)
[2020-04-10] MEDS ORDERED: NOREPINEPHRINE 4 MG/250 ML 250 ML IV SCH (12:00)
--- NOTE | 2020-04-10 12:19 | ED General ---
General Chief Complaint: Cardiac/General Problems Stated Complaint: LIGHT HEADED; HYPOTENSION Nursing Triage Note: ARRIVED VIA EMS FROM [facility]. STAFF REPORTS PT BEING FINE THIS AM WAKING UP AND WALKING TO BREAKFAST AND BACK TO ROOM WITHOUT DIFFICULTY. PT BECAME VERY LIGHTHEADED IN ROOM AND CALLED STAFF TO TAKE HER BP. LAST WELL KNOWN TIME 829 Nursing Sepsis Screen: No Definite Risk Source of Information: Patient, EMS, Senior Care Records Exam Limitations: No Limitations History of Present Illness Date Seen by Provider: Apr 10, 2020 Time Seen by Provider: 08:57 Initial Comments This 69-year-old woman presents to the emergency room from [facility] via EMS. She reports feeling dizzy with ambulating last night. She got up and around this morning and complained of dizziness to staff. She was then found to be hypotensive. EMS was activated and she was brought to the emergency room. She denies any trauma or falls. There has been no fever, cough, shortness of breath, or known COVID-19 exposures. She is alert and oriented at this time. Allergies and Home Medications Allergies Coded Allergies: Penicillins (Verified Allergy, Mild, 07/22/13) latex (Verified Allergy, Mild, 07/22/13) Home Medications Acetaminophen 325 Mg Capsule, 650 MG PO Q6H PRN for PAIN-MILD (1-4), (Reported) Ascorbic Acid 1,000 Mg Tablet, 1,000 MG PO DAILY, (Reported) Aspirin 81 Mg Tablet.dr, 81 MG PO DAILY, (Reported) Cephalexin 500 Mg Capsule, 500 MG PO BID Prescribed by: BETTY LEAL on 03/15/20 1507 Clobetasol Propionate 118 Ml Shampoo, 1 APPLIC TOP Q72H, (Reported) Clobetasol Propionate 50 Ml Solution, 1 APPLIC TP BID, (Reported) APPLY TO THE SCALP Diphenhydramine HCl 25 Mg Capsule, 50 MG PO Q6H PRN for ABX REACTION, (Reported) Divalproex Sodium 500 Mg Tab.er.24h, 1,000 MG PO BID, (Reported) TAKES 2 (500MG) TABS Duloxetine HCl 60 Mg Capsule.dr, 60 MG PO DAILY, (Reported) Furosemide 40 Mg Tablet, 40 MG PO DAILY, (Reported) Lactulose 10 Gm/15 Ml Solution, 30 ML PO DAILY PRN for CONSTIPATION-1ST LINE, (Reported) Levetiracetam 1,000 Mg Tablet, 1,000 MG PO BID, (Reported) Melatonin 3 Mg Tablet, 3 MG PO HS, (Reported) Meloxicam 15 Mg Tablet, 15 MG PO DAILY, (Reported) Oxybutynin Chloride 15 Mg Tab.er.24, 15 MG PO HS, (Reported) Pantoprazole Sodium 40 Mg Tablet.dr, 40 MG PO DAILY, (Reported) Polyethylene Glycol 3350 17 Gm Powd.pack, 17 GM PO DAILY PRN for CONSTIPATION- 2ND LINE, (Reported) Pramipexole Di-HCl 0.5 Mg Tablet, 0.5 MG PO TID, (Reported) Prednisolone Acetate 5 Ml Drops.susp, 1 DROP OU Q48H, (Reported) Prednisone 10 Mg Tab, 10 MG PO DAILY, (Reported) Quetiapine Fumarate 150 Mg Tab.er.24h, 150 MG PO HS, (Reported) Quetiapine Fumarate 50 Mg Tablet, 50 MG PO DAILY, (Reported) Spironolactone 100 Mg Tablet, 100 MG PO DAILY, (Reported) Topiramate 50 Mg Tablet, 50 MG PO BID, (Reported) Vitamin E (Dl,Tocopheryl Acet) 400 Unit Capsule, 400 UNIT PO DAILY, (Reported) Patient Home Medication List Home Medication List Reviewed: Yes Review of Systems Review of Systems Constitutional: no symptoms reported EENTM: no symptoms reported Respiratory: see HPI Cardiovascular: see HPI Gastrointestinal: no symptoms reported : No Musculoskeletal: no symptoms reported Skin: no symptoms reported Psychiatric/Neurological: No Symptoms Reported Hematologic/Lymphatic: No Symptoms Reported Past Zezhnut-Bwldxu-Qyvrnn Hx Past Med/Social Hx: Reviewed Nursing Past Med/Soc Hx Patient Social History Type Used: Cigarettes Former Smoker, Quit: Jul 05, 2013 2nd Hand Smoke Exposure: Yes Recent Foreign Travel: No Contact w/Someone Who Travel: No Recent Infectious Disease Expo: No Recent Hopitalizations: No Immunizations Up To Date Tetanus Booster (TDap): Unknown PED Vaccines UTD: No Date of Influenza Vaccine: Apr 11, 2018 Seasonal Allergies Seasonal Allergies: No Past Medical History Surgeries: Yes Gallbladder, Lumpectomy Respiratory: Yes (BRONCHITIS) Chronic Bronchitis Currently Using CPAP: No Cardiac: Yes Chronic Edema/Swelling, Coronary Artery Disease, High Cholesterol, Hypertension, Rheumatic Fever Neurological: Yes (ENCEPHALITIS, restless leg syndrome) Concussion, Dementia, Seizure Disorder, Traumatic Brain Injury, Vertigo Reproductive Disorders: No Female Reproductive Disorders: Denies Sexually Transmitted Disease: No HIV/AIDS: No Genitourinary: Yes (CHRONIC RENAL INSUFFICIENCY; BLADDER CONTROL ISSUES?) Gastrointestinal: Yes ("STOMACH DISCOMFORT"--POST-CHOLECYSTECTOMY SYNDROME) Gastroesophageal Reflux, Chronic Constipation, Chronic Diarrhea, Gall Bladder Disease, Irritable Bowel Musculoskeletal: Yes Arthritis Endocrine: No HEENT: Yes (READING GLASSES) Loss of Vision: Bilateral Hearing Impairment: Denies Cancer: No Psychosocial: Yes Sleep Difficulties, Bipolar Integumentary: Yes Psoriasis Blood Disorders: No Adverse Reaction/Blood Tranf: No Family Medical History Cancer 03 FATHER (PANCREATIC CANCER) 09 BROTHER ( AT AGE 10) Family history: Cardiovascular disease 03 MOTHER Family history: Diabetes mellitus 03 MOTHER Heart disease 03 MOTHER No Pertinent Family Hx Physical Exam-Suspected Sepsis Physical Exam Vital Signs Vital Signs - First Documented 04/10/20 08:55 Temp 35.4 Pulse 62 Resp 16 B/P (MAP) 72/45 (54) Pulse Ox 94 O2 Delivery Room Air Capillary Refill : Less Than 3 Seconds Blood Pressure Mean: 54 Height, Weight, BMI Height: 5'4.00" Weight: 166lbs. 0.0oz. 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 Norm as Tested Skin: normal color, warm/dry Focused Exam Lactate Level 04/10/20 09:50: Lactic Acid Level 1.55 04/10/20 17:00: Lactic Acid Level 1.39 Lactic Acid Level Laboratory Tests Test 04/10/20 17:00 Lactic Acid Level 1.39 MMOL/L (0.50-2.00) Progress/Results/Core Measures Suspected Sepsis Recent Fever Within 48 Hours: No Infection Criteria Present: None New/Unexplained Altered Menta: No Sepsis Screen: No Definite Risk SIRS Temperature: Pulse: 62 Respiratory Rate: 16 Laboratory Tests 04/10/20 09:00: White Blood Count 9.2 Blood Pressure 72 /45 Mean: 54 04/10/20 09:50: Lactic Acid Level 1.55 04/10/20 17:00: Lactic Acid Level 1.39 Laboratory Tests 04/10/20 09:00: Creatinine 1.30, INR Comment 0.9, Platelet Count 203, Total Bilirubin 0.3 04/10/20 10:13: INR Comment 1.1 Results/Orders Lab Results Laboratory Tests Test 04/10/20 09:00 04/10/20 09:08 04/10/20 09:10 04/10/20 09:50 Range/Units White Blood Count 9.2 4.3-11.0 10^3/uL Red Blood Count 3.13 L 3.80-5.11 10^6/uL Hemoglobin 10.4 L 11.5-16.0 g/dL Hematocrit 31 L 35-52 % Mean Corpuscular Volume 98 80-99 fL Mean Corpuscular Hemoglobin 33 25-34 pg Mean Corpuscular Hemoglobin Concent 34 32-36 g/dL Red Cell Distribution Width 12.5 10.0-14.5 % Platelet Count 203 130-400 10^3/uL Mean Platelet Volume 9.4 9.0-12.2 fL Immature Granulocyte % (Auto) 3 % Neutrophils (%) (Auto) 50 42-75 % Lymphocytes (%) (Auto) 29 12-44 % Monocytes (%) (Auto) 16 H 0-12 % Eosinophils (%) (Auto) 2 0-10 % Basophils (%) (Auto) 0 0-10 % Neutrophils # (Auto) 4.6 1.8-7.8 10^3/uL Lymphocytes # (Auto) 2.6 1.0-4.0 10^3/uL Monocytes # (Auto) 1.5 H 0.0-1.0 10^3/uL Eosinophils # (Auto) 0.1 0.0-0.3 10^3/uL Basophils # (Auto) 0.0 0.0-0.1 10^3/uL Immature Granulocyte # (Auto) 0.3 H 0.0-0.1 10^3/uL Prothrombin Time 12.4 12.2-14.7 SEC INR Comment 0.9 0.8-1.4 Activated Partial Thromboplast Time 30 24-35 SEC Sodium Level 128 L 135-145 MMOL/L Potassium Level 3.1 L 3.6-5.0 MMOL/L Chloride Level 89 L 98-107 MMOL/L Carbon Dioxide Level 27 21-32 MMOL/L Anion Gap 12 5-14 MMOL/L Blood Urea Nitrogen 23 H 7-18 MG/DL Creatinine 1.30 0.60-1.30 MG/DL Estimat Glomerular Filtration Rate 41 BUN/Creatinine Ratio 18 Glucose Level 48 *L 70-105 MG/DL Calcium Level 8.1 L 8.5-10.1 MG/DL Corrected Calcium 8.8 8.5-10.1 MG/DL Magnesium Level 1.9 1.6-2.4 MG/DL Total Bilirubin 0.3 0.1-1.0 MG/DL Aspartate Amino Transf (AST/SGOT) 20 5-34 U/L Alanine Aminotransferase (ALT/SGPT) 11 0-55 U/L Alkaline Phosphatase 99 40-136 U/L Myoglobin 94.7 H 10.0-92.0 NG/ML Troponin I < 0.028 <0.028 NG/ML Total Protein 5.4 L 6.4-8.2 GM/DL Albumin 3.1 L 3.2-4.5 GM/DL Procalcitonin 0.03 <0.10 NG/ML TSH [place] Testing 2.89 0.35-4.94 UIU/ML Urine Color YELLOW Urine Clarity SL CLOUDY Urine pH 8.0 5-9 Urine Specific [place] 1.010 L 1.016-1.022 Urine Protein NEGATIVE NEGATIVE Urine Glucose (UA) NEGATIVE NEGATIVE Urine Ketones NEGATIVE NEGATIVE Urine Nitrite POSITIVE H NEGATIVE Urine Bilirubin NEGATIVE NEGATIVE Urine Urobilinogen 0.2 < = 1.0 MG/DL Urine Leukocyte Esterase 2+ H NEGATIVE Urine RBC (Auto) 2+ H NEGATIVE Urine RBC 5-10 H /HPF Urine WBC 10-25 H /HPF Urine Squamous Epithelial Cells NONE /HPF Urine Crystals NONE /LPF Urine Bacteria LARGE H /HPF Urine Casts NONE /LPF Urine Mucus NEGATIVE /LPF Urine Culture Indicated YES C-Reactive Protein High Sensitivity 0.39 0.00-0.50 MG/DL Valproic Acid (Depakene) Level 48.2 L 50.0-100.0 UG/ML Lactic Acid Level 1.55 0.50-2.00 MMOL/L Test 04/10/20 10:13 04/10/20 10:23 04/10/20 11:36 04/10/20 12:26 Range/Units Prothrombin Time 14.5 12.2-14.7 SEC INR Comment 1.1 0.8-1.4 Glucometer 109 52 *L 112 H 70-110 MG/DL Test 04/10/20 12:28 04/10/20 15:15 04/10/20 17:00 04/10/20 18:23 Range/Units Coronavirus 2019 (ULYSSES) Negative Negative Glucometer 77 121 H 70-110 MG/DL Lactic Acid Level 1.39 0.50-2.00 MMOL/L My Orders Orders - KELLEN CURRY MD Cbc With Automated Diff (04/10/20 09:08) Magnesium (04/10/20 09:08) Chest 1 View, Ap/Pa Only (04/10/20 09:08) Ekg Tracing (04/10/20 09:08) Comprehensive Metabolic Panel (04/10/20 09:08) Myoglobin Serum (04/10/20 09:08) Protime With Inr (04/10/20 09:08) Partial Thromboplastin Time (04/10/20 09:08) O2 (04/10/20 09:08) Monitor-Rhythm Ecg Trace Only (04/10/20 09:08) Lipid Panel (04/11/20 06:00) Ed Iv/Invasive Line Start (04/10/20 09:08) Troponin I (04/10/20 09:08) Hs C Reactive Protein (04/10/20 09:15) Ua Culture If Indicated (04/10/20 09:15) Ns Iv 1000 Ml (Sodium Chloride 0.9%) (04/10/20 09:15) Ns Iv 1000 Ml (Sodium Chloride 0.9%) (04/10/20 09:11) Urine Culture (04/10/20 09:08) Ed Iv/Invasive Line Start (04/10/20 09:41) Lactated Ringers (Lr 1000 Ml Iv Solution (04/10/20 09:41) D50w (Emergency) Syringe (Dextrose 50% 5 (04/10/20 09:45) Blood Culture (04/10/20 09:46) Sputum Culture (04/10/20 09:46) Protime With Inr (04/10/20 09:46) Vital Signs Adult Sepsis Patie Q15M (04/10/20 09:46) Remove Rings In Anticipation O (04/10/20 09:46) Lactic Acid Analyzer (04/10/20 09:46) Accucheck Stat ONCE (04/10/20 10:37) Ns Iv 1000 Ml (Sodium Chloride 0.9%) (04/10/20 11:07) Meropenem (Merrem 500 Mg) (04/10/20 11:15) Valproic Acid (04/10/20 11:09) Accucheck Stat ONCE (04/10/20 11:34) D50w (Emergency) Syringe (Dextrose 50% 5 (04/10/20 11:45) Cortisol Am (04/10/20 11:57) Thyroid Analyzer (04/10/20 11:57) Procalcitonin (Pct) (04/10/20 11:57) Norepinephrine 4 Mg/250 Ml (Norepinephri (04/10/20 12:00) Covid 19 Inhouse Test (04/10/20 12:27) Coronavirus Sars-Cov-2 So 2018 (04/10/20 13:00) Medications Given in ED Current Medications Medications Dose Ordered Sig/Cory Route Start Time Stop Time Status Last Admin Dose Admin Dextrose 50 ml ONCE ONCE IV 04/10/20 09:45 04/10/20 09:46 DC 04/10/20 09:46 50 ML Dextrose 50 ml ONCE ONCE IV 04/10/20 11:45 04/10/20 11:46 DC 04/10/20 11:44 50 ML Lactated Ringer's 1,000 ml @ 0 mls/hr Q0M ONCE IV 04/10/20 09:41 04/10/20 09:43 DC 04/10/20 09:46 1,000 MLS/HR Meropenem 500 mg/ Sterile Water 10 ml @ 200 mls/hr ONCE ONCE IV 04/10/20 11:15 04/10/20 11:17 DC 04/10/20 11:26 200 MLS/HR Sodium Chloride 1,000 ml @ 0 mls/hr Q0M ONCE IV 04/10/20 11:07 04/10/20 11:08 DC 04/10/20 11:26 1,000 MLS/HR Vital Signs/I&O Bad table Blood Pressure Mean: 54 Point of Care Testing Finger Stick Blood Glucose: 52 Blood Glucose Action Taken: dr pinto Progress Note : Time: 12:14 Progress Note Patient's presentation is quite unusual. She has persistent hypotension despite receiving 3 L of IV fluid. However, she is not tachycardic and she does not show other signs of sepsis such as tachycardia or fever. Lactic acid, CRP, and WBC are also normal which would suggest she does not have sepsis. Nonetheless, UTI was identified. Therefore we have started antibiotic therapy with meropenem (penicillin allergy). She has had recurrent episodes of hypoglycemia as well despite receiving an amp of D50. Etiology of these problems is uncertain. Medication error is brought into question given this unusual presentation. As a precaution, we will use the severe sepsis protocols and start norepinephrine while in the ER. Patient is presently receiving her fourth liter of IV fluids. Case was discussed with Dr. Montiel who requested additional labs and vancomycin. ECG Initial ECG Impression Date: Apr 10, 2020 Initial ECG Impression Time: 08:57 Initial ECG Rate: 61 Initial ECG Rhythm: Normal Sinus Comment Sinus rhythm with no ST elevation or depression. No abnormal intervals or axis deviation. Diagnostic Imaging Diagonstic Imaging: Xray Plain Films/CT/US/NM/MRI: chest Comments NAME: [facility] REC#: [id number] PT STATUS: REG ER : 1950 PHYSICIAN: KELLEN CURRY MD ADMIT DATE: 04/10/20/ER Draft Date of Exam:04/10/20 CHEST 1 VIEW, AP/PA ONLY INDICATION: Chest pain and lightheadedness Frontal chest obtained at 0943 a.m. and compared to 03/15/2020 Heart is borderline in size. There is mild central vascular prominence. There is mild right basilar infiltrate versus atelectasis. There is no pneumothorax or pleural fluid. IMPRESSION: Cardiomegaly. There is mild right basilar infiltrate versus atelectasis. There is no pneumothorax or pleural fluid. Dictated on workstation # [id number] Dict: 04/10/20 0958 Trans: 04/10/20 1008 TRAVIS [id number] Interpreted by: AARON BECKFORD MD Departure Communication (Admissions) Time/Spoke to Admitting Phy: 12:00 Dr. Montiel Impression Primary Impression: Hypotension Qualified Codes: I95.9 - Hypotension, unspecified Additional Impressions: Hypoglycemia Hypokalemia Urinary tract infection Qualified Codes: N39.0 - Urinary tract infection, site not specified Disposition: ADMITTED INPATIENT Condition: Improved Admissions Decision to Admit Reason: Admit from ER (General) Decision to Admit/Date: Apr 10, 2020 Time/Decision to Admit Time: 11:00 Departure-Patient Inst. Referrals: JOVON LING MD (PCP/Family) Primary Care Physician Copy Copies To 1: JOVON LING MD, JOSHUA T MD Apr 10, 2020 12:19
--- NOTE | 2020-04-10 12:33 | NUR ---
DR SANDOVAL IN TALKING TO THE PT.
--- NOTE | 2020-04-10 12:34 | NUR ---
ATTEMPT TO CALL REPORT ET NURSE UNABLE TO TAKE A PUI AND WILL CALL BACK.
--- NOTE | 2020-04-10 12:37 | History & Physical-Hospitalist ---
SHILOH FLYNN,MED STUDENT 04/10/20 1237: History of Present Illness HPI/Chief Complaint Patient is a 69yo WF presenting to [facility] ED via EMS c/o dizziness and hypotension. She is a resident of [facility] and states she didn't sleep much at all last night, and when she got up this morning she felt dizzy. When staff took her BP she was found to be hypotensive and EMS was called. She denies any recent fevers, denies cough, SOB, chest pain, n/v/d, or urinary symptoms. She was recently hospitalized at [facility] ICU on 03/13 due to septic shock from pneumonia and treated with IV antibiotics for CAP. She responded well and was discharged in stable condition on 03/16. In the ED today she was treated with 3L of IV fluids and Levophed, and started on meropenem. She was also given D50 due to episodes of hypoglycemia. She does not take any diabetic medications at home. Source: patient Exam Limitations: no limitations Date Seen 04/10/20 Time Seen by a Provider: 12:00 Attending Physician Addy Newsome MD Referring Physician Date of Admission Home Medications & Allergies Home Medications Reviewed patient Home Medication Reconciliation performed by pharmacy medication reconciliations profile grinder technician and/or nursing. Patients Allergies have been reviewed. Allergies Allergies Coded Allergies Penicillins (Verified Allergy, Mild, 07/22/13) latex (Verified Allergy, Mild, 07/22/13) Past Iiilfel-Nuehtp-Aykutr Hx Patient Social History Alcohol Use: Denies Use Recreational Drug Use: No Smoking Status: Current Everyday Smoker (1/2 PPD) Former Smoker, Quit: Jul 05, 2013 Type Used: Cigarettes 2nd Hand Smoke Exposure: Yes Recent Foreign Travel: No Contact w/other who traveled: No Recent Hopitalizations: No Recent Infectious Disease Expo: No Immunizations Up To Date Tetanus Booster (TDap): Unknown Pediatric: No Date of Influenza Vaccine: Apr 11, 2018 Seasonal Allergies Seasonal Allergies: No Past Medical History Surgeries: Gallbladder, Lumpectomy Respiratory: Chronic Bronchitis Currently Using CPAP: No Cardiac: Chronic Edema/Swelling, Coronary Artery Disease, High Cholesterol, Hypertension, Rheumatic Fever Neurological: Concussion, Dementia, Seizure Disorder, Traumatic Brain Injury, Vertigo Reproductive: No Sexually Transmitted Disease: No HIV/AIDS: No Female Reproductive Disorders: Denies Gastrointestinal: Gastroesophageal Reflux, Chronic Constipation, Chronic Diarrhea, Gall Bladder Disease, Irritable Bowel Musculoskeletal: Arthritis Loss of Vision: Bilateral Hearing Impairment: Denies Psychosocial: Sleep Difficulties, Bipolar Skin/Integumentary: Psoriasis History of Blood Disorders: No Adverse Reaction to Blood Mckoy: No Family History Cancer 03 FATHER (PANCREATIC CANCER) 09 BROTHER ( AT AGE 10) Family history: Cardiovascular disease 03 MOTHER Family history: Diabetes mellitus 03 MOTHER Heart disease 03 MOTHER No Pertinent Family Hx Review of Systems Constitutional: No chills; dizziness; No fever EENTM: No hearing loss, No vision loss, No nose congestion, No throat pain Respiratory: No cough, No short of breath, No wheezing Cardiovascular: No chest pain, No palpitations Gastrointestinal: No abdominal pain, No constipation, No diarrhea, No nausea, No vomiting Genitourinary: No dysuria, No frequency, No pain Musculoskeletal: joint pain Skin: No lesions, No lumps, No rash Psychiatric/Neurological: Denies Numbness, Denies Tingling Physical Exam Physical Exam Vital Signs Vital Signs - First Documented 04/10/20 08:55 Temp 35.4 Pulse 62 Resp 16 B/P (MAP) 72/45 (54) Pulse Ox 94 O2 Delivery Room Air Capillary Refill : Less Than 3 Seconds Height, Weight, BMI Height: 5'4.00" Weight: 166lbs. 0.0oz. [id number]; 32.00 BMI Method:Stated General Appearance: No Apparent Distress, WD/WN Eyes: Bilateral Eye PERRL, Bilateral Eye EOMI HEENT: PERRL/EOMI, Pharynx Normal; No Pharyngeal Erythema Neck: Non Tender, Supple Respiratory: No Accessory Muscle Use, No Respiratory Distress, Decreased Breath Sounds; No Wheezing Cardiovascular: Regular Rate, Rhythm, No Murmur, Normal Peripheral Pulses Gastrointestinal: Normal Bowel Sounds, Non Tender, Soft; No Distended, No Guarding Extremity: Non Tender, No Calf Tenderness, Pedal Edema Neurologic/Psychiatric: Alert, Oriented x3 Results Results/Procedures Labs Laboratory Tests 04/10/20 09:00 Patient resulted labs reviewed. Assessment/Plan Admission Diagnosis Hypotension Assessment and Plan Assessment: Hypotension Hypoglycemia Hypokalemia UTI Anemia Chronic renal insufficiency Hx of seizure disorder Hx of TBI Obesity Plan: Continue IV fluids On levophed Possible right basilar infiltrate on CXR - on meropenem PCT 0.03 Cultures pending COVID-19 ULYSSES negative Continue home antiepileptic medications LYDIA SANDOVAL DO 04/10/202: History of Present Illness HPI/Chief Complaint CC: Dizziness HPI: This is a detention patient assisted living of [facility] of Dr. Farr who presented to the ER with low BP. Pt felt fine but she does have significant dementia. Her BP was 70-80 systolic even though she has received 4 liters of fluid so pressor therapy was started. Mild UTI diagnosed along with a questionable right lung base pneumonia so she was placed on severe sepsis protocol, placed in the ICU with appropriate antibiotics of Meropenem and Vancomycin. Past Mggrryd-Auhnvm-Mgnjfh Hx Past Med/Social Hx: Reviewed Nursing Past Med/Soc Hx, Reviewed and Corrections made Patient Social History Marrital Status: single Family History Cancer 03 FATHER (PANCREATIC CANCER) 09 BROTHER ( AT AGE 10) Family history: Cardiovascular disease 03 MOTHER Family history: Diabetes mellitus 03 MOTHER Heart disease 03 MOTHER Review of Systems Constitutional: see HPI Physical Exam Physical Exam General Appearance: No Apparent Distress, Chronically ill Respiratory: Normal Breath Sounds Assessment/Plan Admission Diagnosis ICU Hypotension treatment Abx Admission Status: Inpatient Order (span 2 midnights) Reason for Inpatient Admission: severe sepsis Diagnosis/Problems Diagnosis/Problems (1) Hypotension Status: Acute Qualifiers: Hypotension type: unspecified hypotension type Qualified Codes: I95.9 - Hypotension, unspecified (2) Pneumonia Status: Acute (3) Acute kidney injury superimposed on chronic kidney disease Status: Resolved Resolution Date/Time: 11/16/19 @ 16:38 (4) Urinary tract infection Status: Acute Qualifiers: Urinary tract infection type: site unspecified Hematuria presence: without hematuria Qualified Codes: N39.0 - Urinary tract infection, site not specified (5) Hypokalemia (6) Hypoglycemia Status: Acute Supervisory-Addendum Brief Verification & Attestation Participated in pt care: history, MDM, physical Personally performed: exam, history, MDM, supervision of care Care discussed with: Medical Student Procedures: n/a Results interpretation: Verified all documentation Verification and Attestation of Medical Student E/M Service A medical student performed and documented this service in my presence. I reviewed and verified all information documented by the medical student and made modifications to such information, when appropriate. I personally performed the physical exam and medical decision making. Lydia Sandoval, Apr 10, 2020,21:52 SHILOH FLYNN MED STUDENT Apr 10, 2020 12:37 LYDIA SANDOVAL DO Apr 10, 2020 21:52
[2020-04-10 12:48] LABS: TSH (THYROID ANALYZER) 2.89 UIU/ML (0.35-4.94)
--- NOTE | 2020-04-10 12:55 | NUR ---
REPORT AND CARE TURNED OVER TO JOSE.
[2020-04-10] MEDS ORDERED: DOPamine DRIP 250 ML IV SCH (15:00)
--- NOTE | 2020-04-10 15:13 | NUR ---
CR 1.3; CR CL ~46; WT 90 KG; VANCO 1500 MG IV BOLUS THEN 1250 MG IV Q24H X 3 DAYS
--- NOTE | 2020-04-10 15:14 | NUR ---
SPOKE WITH THE PT (I CALLED HER ROOM PHONE) AND CALLED [facility] TO COMPLETE THE MED REC THE FOLLOWING MEDICATIONS WERE FILLED FROM [facility] ON 03-01-2020: METOPROLOL SUCC 50MG #30/30DS DICLOFENAC 75MG #60/30DS SPIRONOLACTONE 25MG #30/30DS FAMOTIDINE 20MG #60/30DS OMEPRAZOLE 40MG #30/30DS OTC MEDS: FISH OIL CETIRIZINE Addendum: 04/11/20 at 1648 by SOFÍA ALFREDO CPhT DISREGARD- WRONG PT
[2020-04-10] MEDS ORDERED: VANCOMYCIN 1500 MG/NS 500 ML IVPB IV NR ×2 (15:15)
[2020-04-10] MEDS ORDERED: ONDANSETRON 4 MG/2 ML (SDV) Z0FRAN IV PRN (15:30)
[2020-04-10] MEDS ORDERED: EPINEPHrine 1 MG INJECTION 4 MG in NS (IVPB) 248 ML IV SCH (15:30)
[2020-04-10] MEDS: D5 1/2 NS W/KCL 40 MEQ/L 1,000 ML IV SCH ×2 (16:28→20:55)
[2020-04-10 19:00] VITALS: BP 117/91
[2020-04-10 20:00] VITALS: BP 131/81
--- NOTE | 2020-04-10 20:20 | Diagnostic Imaging Report ---
EXAMINATION: Chest 1 view. HISTORY: Evaluate central line placement. COMPARISON: Chest radiograph performed earlier the same date. FINDINGS: A right internal jugular central line is seen with the tip overlying the low SVC. The lung volumes are normal. Patchy opacities are seen in the right perihilar region. No large pleural effusion or pneumothorax is seen. The cardiomediastinal silhouette is normal in size and contour. No acute osseous abnormality is seen. IMPRESSION: 1. Patchy opacities in the right perihilar region, similar to the prior exam. 2. Interval placement of a right internal jugular central line with tip overlying the low SVC. Dictated by: Dictated on workstation # [id number]
[2020-04-10] MEDS: NOREPINEPHRINE 4 MG/250 ML 250 ML IV SCH ×2 (20:54→21:26)
[2020-04-10] MEDS: MEROPENEM 500 MG/SWFI 10 ML IV PUSH IV SCH ×2 (20:54)
[2020-04-10] MEDS: VASOPRESSIN INJECTION 20 UNIT in NS (IVPB) 100 ML IV SCH (20:54)
[2020-04-10] MEDS: HYDROCORTISONE 100 MG/2 ML (Solu-CORTEF) VIAL IV SCH (20:55)
--- NOTE | 2020-04-10 20:59 | Consultation - Surgery ---
History of Present Illness History of Present Illness Patient Consulted On(genaro/time) 04/10/20 20:54 Date Seen by Provider: Apr 10, 2020 Time Seen by Provider: 18:50 History of Present Illness Consult requested by Dr. Montiel for central line placement. Patient is a 69-year-old female who has been hypotensive and on Levophed. Patient about 1 month ago was in hospital for pneumonia. Patient today was feeling dizzy and was found to be hypotensive. She was brought to the emergency department where she was started on Levophed. She had a chest x-ray demonstrating a right basilar infiltrate. She has been started on meropenem. Patient has continued to need pressor support. She does not have any central venous access. Patient has had previous central line and she understands risk and benefits and the need for it due to the medications that she is on. Patient states she has no shortness of breath. She has the dizziness. No abdominal pain no other complaints at this time. Found to have UTI. She has no elevated WBC. She denies any fever sweats chills chest pain nausea or vomiting. Allergies and Home Medications Allergies Coded Allergies: Penicillins (Verified Allergy, Mild, 07/22/13) latex (Verified Allergy, Mild, 07/22/13) Home Medications Acetaminophen 325 Mg Capsule, 650 MG PO Q6H PRN for PAIN-MILD (1-4), (Reported) Ascorbic Acid 1,000 Mg Tablet, 1,000 MG PO DAILY, (Reported) Aspirin 81 Mg Tablet.dr, 81 MG PO DAILY, (Reported) Cephalexin 500 Mg Capsule, 500 MG PO BID Prescribed by: BETTY LEAL on 03/15/20 1507 Clobetasol Propionate 118 Ml Shampoo, 1 APPLIC TOP Q72H, (Reported) Clobetasol Propionate 50 Ml Solution, 1 APPLIC TP BID, (Reported) APPLY TO THE SCALP Diphenhydramine HCl 25 Mg Capsule, 50 MG PO Q6H PRN for ABX REACTION, (Reported) Divalproex Sodium 500 Mg Tab.er.24h, 1,000 MG PO BID, (Reported) TAKES 2 (500MG) TABS Duloxetine HCl 60 Mg Capsule.dr, 60 MG PO DAILY, (Reported) Furosemide 40 Mg Tablet, 40 MG PO DAILY, (Reported) Lactulose 10 Gm/15 Ml Solution, 30 ML PO DAILY PRN for CONSTIPATION-1ST LINE, (Reported) Levetiracetam 1,000 Mg Tablet, 1,000 MG PO BID, (Reported) Melatonin 3 Mg Tablet, 3 MG PO HS, (Reported) Meloxicam 15 Mg Tablet, 15 MG PO DAILY, (Reported) Oxybutynin Chloride 15 Mg Tab.er.24, 15 MG PO HS, (Reported) Pantoprazole Sodium 40 Mg Tablet.dr, 40 MG PO DAILY, (Reported) Polyethylene Glycol 3350 17 Gm Powd.pack, 17 GM PO DAILY PRN for CONSTIPATION- 2ND LINE, (Reported) Pramipexole Di-HCl 0.5 Mg Tablet, 0.5 MG PO TID, (Reported) Prednisolone Acetate 5 Ml Drops.susp, 1 DROP OU Q48H, (Reported) Prednisone 10 Mg Tab, 10 MG PO DAILY, (Reported) Quetiapine Fumarate 150 Mg Tab.er.24h, 150 MG PO HS, (Reported) Quetiapine Fumarate 50 Mg Tablet, 50 MG PO DAILY, (Reported) Spironolactone 100 Mg Tablet, 100 MG PO DAILY, (Reported) Topiramate 50 Mg Tablet, 50 MG PO BID, (Reported) Vitamin E (Dl,Tocopheryl Acet) 400 Unit Capsule, 400 UNIT PO DAILY, (Reported) Patient Home Medication List Home Medication List Reviewed: Yes Past [id number] Hx Patient Social History Alcohol Use: Denies Use Recreational Drug Use: No Smoking Status: Current Everyday Smoker (1/2 PPD) Former Smoker, Quit: Jul 05, 2013 Type Used: Cigarettes 2nd Hand Smoke Exposure: Yes Recent Foreign Travel: No Contact w/Someone Who Travel: No Recent Infectious Disease Expo: No Recent Hopitalizations: No Immunizations Up To Date Tetanus Booster (TDap): Unknown PED Vaccines UTD: No Date of Pneumonia Vaccine: Apr 07, 2018 Date of Influenza Vaccine: Feb 10, 2020 Seasonal Allergies Seasonal Allergies: No Surgeries History of Surgeries: Yes Surgeries: Gallbladder, Lumpectomy Respiratory History of Respiratory Disorde: Yes (BRONCHITIS) Respiratory Disorders: Chronic Bronchitis Cardiovascular History of Cardiac Disorders: Yes Cardiac Disorders: Chronic Edema/Swelling, Coronary Artery Disease, High Cholesterol, Hypertension, Rheumatic Fever Neurological History of Neurological Disord: Yes (ENCEPHALITIS, restless leg syndrome) Neurological Disorders: Concussion, Dementia, Seizure Disorder, Traumatic Brain Injury, Vertigo Reproductive System Hx Reproductive Disorders: No Sexually Transmitted Disease: No HIV/AIDS: No Female Reproductive Disorders: Denies Genitourinary History of Genitourinary Disor: Yes (CHRONIC RENAL INSUFFICIENCY; BLADDER CONTROL ISSUES?) Gastrointestinal History of Gastrointestinal Di: Yes ("STOMACH DISCOMFORT"--POST-CHOLECYSTECTOMY SYNDROME) Gastrointestinal Disorders: Gastroesophageal Reflux, Chronic Constipation, Chronic Diarrhea, Gall Bladder Disease, Irritable Bowel Musculoskeletal History of Musculoskeletal Dis: Yes Musculoskeletal Disorders: Arthritis Endocrine History of Endocrine Disorders: No HEENT History of HEENT Disorders: Yes (READING GLASSES) Loss of Vision: Bilateral Hearing Impairment: Denies Cancer History of Cancer: No Psychosocial History of Psychiatric Problem: Yes Behavioral Health Disorders: Sleep Difficulties, Bipolar Integumentary History of Skin or Integumenta: Yes Skin/Integumentary Disorders: Psoriasis Blood Transfusions History of Blood Disorders: No Adverse Reaction to a Blood Tr: No Reviewed Nursing Assessment Reviewed/Agree w Nursing PMH: Yes Family Medical History Significant Family History: No Pertinent Family Hx Family Medial History: Cancer 03 FATHER (PANCREATIC CANCER) 09 BROTHER ( AT AGE 10) Family history: Cardiovascular disease 03 MOTHER Family history: Diabetes mellitus 03 MOTHER Heart disease 03 MOTHER Review of Systems-General Constitutional: dizziness, weakness EENTM: No blurred vision, No double vision Respiratory: No hemoptysis, No short of breath Cardiovascular: No chest pain, No palpitations Gastrointestinal: No abdominal pain, No hematemesis, No heartburn, No nausea, N o vomiting Genitourinary: No decreased output, No hematuria Musculoskeletal: No back pain, No joint pain Skin: No change in color, No change in hair/nails Psychiatric/Neurological: Denies Anxiety, Denies Depressed, Denies Emotional Problems All Other Systems Reviewed Negative Unless Noted: Yes (Negative excepted noted.) Physical Exam-General Problems Physical Exam Vital Signs Vital Signs - First Documented 04/10/20 08:55 Temp 35.4 Pulse 62 Resp 16 B/P (MAP) 72/45 (54) Pulse Ox 94 O2 Delivery Room Air Capillary Refill : Less Than 3 SecondsLess Than 3 Seconds General Appearance: WD/WN, no apparent distress HEENT: PERRL/EOMI, normal ENT inspection Neck: full range of motion, supple, normal inspection Respiratory: chest non-tender, no respiratory distress, no accessory muscle use Cardiovascular: regular rate, rhythm, no JVD Gastrointestinal: non tender, soft, no organomegaly Rectal: deferred Back: no CVA tenderness Extremities: non-tender, normal inspection Neurologic/Psychiatric: 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 II-XII nml as tested, alert, normal mood/affect, oriented x 3 Skin: normal color, warm/dry Lymphatic: no adenopathy Data Review Labs Laboratory Tests 04/10/20 09:00: White Blood Count 9.2, Red Blood Count 3.13L, Hemoglobin 10.4L, Hematocrit 31L, Mean Corpuscular Volume 98, Mean Corpuscular Hemoglobin 33, Mean Corpuscular Hemoglobin Concent 34, Red Cell Distribution Width 12.5, Platelet Count 203, Mean Platelet Volume 9.4, Immature Granulocyte % (Auto) 3, Neutrophils (%) (Auto) 50, Lymphocytes (%) (Auto) 29, Monocytes (%) (Auto) 16H, Eosinophils (%) (Auto) 2, Basophils (%) (Auto) 0, Neutrophils # (Auto) 4.6, Lymphocytes # (Auto) 2.6, Monocytes # (Auto) 1.5H, Eosinophils # (Auto) 0.1, Basophils # (Auto) 0.0, Immature Granulocyte # (Auto) 0.3H, Prothrombin Time 12.4, INR Comment 0.9, Activated Partial Thromboplast Time 30, Sodium Level 128L, Potassium Level 3.1L, Chloride Level 89L, Carbon Dioxide Level 27, Anion Gap 12, Blood Urea Nitrogen 23H, Creatinine 1.30, Estimat Glomerular Filtration Rate 41, BUN/Creatinine Ratio 18, Glucose Level 48*L, Calcium Level 8.1L, Corrected Calcium 8.8, Magnesium Level 1.9, Total Bilirubin 0.3, Aspartate Amino Transf (AST/SGOT) 20, Alanine Aminotransferase (ALT/SGPT) 11, Alkaline Phosphatase 99, Myoglobin 94.7H , Troponin I < 0.028, Total Protein 5.4L, Albumin 3.1L, Procalcitonin 0.03, TSH [place] Testing 2.89 04/10/20 09:08: Urine Color YELLOW, Urine Clarity SL CLOUDY, Urine pH 8.0, Urine Specific [place] 1.010L, Urine Protein NEGATIVE, Urine Glucose (UA) NEGATIVE, Urine Ketones NEGATIVE, Urine Nitrite POSITIVEH, Urine Bilirubin NEGATIVE, Urine Urobilinogen 0.2, Urine Leukocyte Esterase 2+H, Urine RBC (Auto) 2+H, Urine RBC 5-10H, Urine WBC 10-25H, Urine Squamous Epithelial Cells NONE, Urine Crystals NONE, Urine Bacteria LARGEH, Urine Casts NONE, Urine Mucus NEGATIVE, Urine Culture Indicated YES 04/10/20 09:10: C-Reactive Protein High Sensitivity 0.39, Valproic Acid (Depakene) Level 48.2L 04/10/20 09:50: Lactic Acid Level 1.55 04/10/20 10:13: Prothrombin Time 14.5, INR Comment 1.1 04/10/20 10:23: Glucometer 109 04/10/20 11:36: Glucometer 52*L 04/10/20 12:26: Glucometer 112H 04/10/20 12:28: Coronavirus 2019 (ULYSSES) Negative 04/10/20 15:15: Glucometer 77 04/10/20 17:00: Lactic Acid Level 1.39 04/10/20 18:23: Glucometer 121H Assessment/Plan Assessment/Plan Assessment/Plan Hypotension UTI Questionable right basilar pneumonia with questionable infiltrate by chest x-ray Patient needing pressor support. Needs central venous access. Patient understand risk and benefits of having central line placed. She understands risk and benefits and wishes to proceed. Chest x-ray after central line placem ent. Continue medical management. Clinical Quality Measures DVT/VTE Risk/Contraindication: Risk Factor Score Per Nursin RFS Level Per Nursing on Admit: 3=High WILL CARREON DO Apr 10, 2020 20:59
[2020-04-10 21:00] VITALS: BP 115/68
[2020-04-10 21:34] LABS: CALCIUM 8.3 MG/DL (8.5-10.1); CREATININE SERUM 1.24 MG/DL (0.60-1.30); POTASSIUM 3.8 MMOL/L (3.6-5.0)
[2020-04-10 22:00] VITALS: BP 122/70
[2020-04-10] MEDS ORDERED: MEROPENEM 2,000 MG in NS (IVPB) 100 ML IV SCH (22:00)
[2020-04-10 23:00] VITALS: BP 128/65
[2020-04-11] VITALS (18 sets, daily range): BP systolic 92–127; BP diastolic 43–90
[2020-04-11] MEDS: VASOPRESSIN INJECTION 20 UNIT in NS (IVPB) 100 ML IV SCH ×2 (00:35→06:54)
[2020-04-11] MEDS: D5 1/2 NS W/KCL 40 MEQ/L 1,000 ML IV SCH ×2 (01:57→10:14)
[2020-04-11] MEDS: MEROPENEM 500 MG/SWFI 10 ML IV PUSH IV SCH ×6 (01:57→23:46)
--- NOTE | 2020-04-11 02:54 | OPERATIVE REPORT ---
DATE OF SERVICE: 04/10/2020 PREOPERATIVE DIAGNOSIS: Hypotension. POSTOPERATIVE DIAGNOSIS: Hypotension. PROCEDURE PERFORMED: Right internal jugular vein ultrasound-guided central line placement. SURGEON: Will He DO ANESTHESIA: 1% lidocaine 3 mL. COMPLICATIONS: None. INDICATIONS: The patient is a 69-year-old female in intensive care unit requiring pressors, needing central line placement. The patient understands risks and benefits of procedure and wished to proceed with procedure. Consent was signed in the chart. DESCRIPTION OF PROCEDURE: The patient was prepped and draped in sterile fashion. Timeout was performed. Right internal jugular vein was visualized using ultrasound. Local anesthetic was infiltrated, and the right internal jugular vein was then accessed, dark nonpulsatile blood was withdrawn. The guidewire was inserted through the needle and the needle was removed. A #11 blade scalpel was used to make a small skin incision. Dilator was then advanced over the guidewire and removed. The triple lumen catheter was then advanced over the wire and the wire was removed. This was then secured in the usual fashion. All ports were able to be accessed and flushed without difficulty. The area was washed and dried and sterile bandage was applied. The patient tolerated procedure well without any complications. Chest x-ray pending. Job ID: [id number] DocumentID: [id number] Dictated Date: 04/10/2020 21:11:43 Processing Technician Date: 04/11/2020 02:53:27 Dictated By: WILL HE DO
[2020-04-11 04:30] LABS: BASOPHILS % (AUTO) 0 % (0-10); EOSINOPHILS % (AUTO) 0 % (0-10); HEMATOCRIT 32 % (35-52); HEMOGLOBIN 10.9 g/dL (11.5-16.0); LYMPHOCYTES # (AUTO) 0.6 10^3/uL (1.0-4.0); LYMPHOCYTES % (AUTO) 7 % (12-44); MEAN CORPUSCULAR HEMOGLOBIN 34 pg (25-34); MEAN CORPUSCULAR HGB CONC 34 g/dL (32-36); MEAN CORPUSCULAR VOLUME 99 fL (80-99); MEAN PLATELET VOLUME 9.2 fL (9.0-12.2); MONOCYTES # (AUTO) 0.5 10^3/uL (0.0-1.0); MONOCYTES % (AUTO) 5 % (0-12); NEUTROPHILS % (AUTO) 86 % (42-75); PLATELET COUNT 216 10^3/uL (130-400); WHITE BLOOD COUNT 9.2 10^3/uL (4.3-11.0)
[2020-04-11 04:54] LABS: POTASSIUM 3.6 MMOL/L (3.6-5.0)
[2020-04-11 04:55] LABS: CALCIUM 8.1 MG/DL (8.5-10.1)
[2020-04-11 05:00] LABS: CREATININE SERUM 1.06 MG/DL (0.60-1.30); PHOSPHORUS 2.7 MG/DL (2.3-4.7)
[2020-04-11 05:03] LABS: MAGNESIUM 1.8 MG/DL (1.6-2.4)
[2020-04-11 05:40] LABS: LYMPHOCYTES % (MANUAL) 9 %; MONOCYTES % (MANUAL) 7 %; NEUTROPHILS % (MANUAL) 84 %; RBC MORPH NORMAL
[2020-04-11] MEDS: HYDROCORTISONE 100 MG/2 ML (Solu-CORTEF) VIAL IV SCH ×2 (06:51→20:39)
[2020-04-11] MEDS: NOREPINEPHRINE 4 MG/250 ML 250 ML IV SCH ×2 (06:54→11:24)
--- NOTE | 2020-04-11 07:47 | Progress Note - Surgery ---
LIEN DOTY MED STUDENT 04/11/20 0746: Subjective Date Seen by a Provider: Apr 11, 2020 Time Seen by a Provider: 07:20 Subjective/Events-last exam Patient BP has stabilized. Norepinephrine currently titrated down to 0.03 mcg/kg/min. D5 0.45NS + 40 KCL continues to infuse. Patient alert and oriented x 3. VSS, on room air at present time. Patient has no complaints this morning. Tolerating po well without nausea, vomiting, or diarrhea. Denies pain with urination or other urinary related complaints. Continues to be afebrile. Morning labs stable. Focused Exam Lactate Level 04/10/20 09:50: Lactic Acid Level 1.55 04/10/20 17:00: Lactic Acid Level 1.39 Objective Exam Bad tableGeneral Appearance: No Apparent Distress, Chronically ill HEENT: PERRL/EOMI, Normal ENT Inspection Neck: Normal Inspection Respiratory: Normal Breath Sounds Cardiovascular: Regular Rate, Rhythm, No Murmur, Normal Peripheral Pulses Peripheral Pulses: 1+ Dorsalis Pedis (R), 1+ Left Dors-Pedis (L); 2+ Radial Pulses (R), 2+ Radial Pulses (L) Gastrointestinal: non tender, soft, no organomegaly Extremity: Normal Inspection, No Pedal Edema, Pedal Edema Neurologic/Psychiatric: Alert, Oriented x3, No Motor/Sensory Deficits, Normal Mood/Affect, grade setter II-XII Norm as Tested Results Lab Laboratory Tests 04/10/20 09:00: White Blood Count 9.2, Red Blood Count 3.13L, Hemoglobin 10.4L, Hematocrit 31L, Mean Corpuscular Volume 98, Mean Corpuscular Hemoglobin 33, Mean Corpuscular Hemoglobin Concent 34, Red Cell Distribution Width 12.5, Platelet Count 203, Mean Platelet Volume 9.4, Immature Granulocyte % (Auto) 3, Neutrophils (%) (Auto) 50, Lymphocytes (%) (Auto) 29, Monocytes (%) (Auto) 16H, Eosinophils (%) (Auto) 2, Basophils (%) (Auto) 0, Neutrophils # (Auto) 4.6, Lymphocytes # (Auto) 2.6, Monocytes # (Auto) 1.5H, Eosinophils # (Auto) 0.1, Basophils # (Auto) 0.0, Immature Granulocyte # (Auto) 0.3H, Prothrombin Time 12.4, INR Comment 0.9, Activated Partial Thromboplast Time 30, Sodium Level 128L, Potassium Level 3.1L, Chloride Level 89L, Carbon Dioxide Level 27, Anion Gap 12, Blood Urea Nitrogen 23H, Creatinine 1.30, Estimat Glomerular Filtration Rate 41, BUN/Creatinine Ratio 18, Glucose Level 48*L, Calcium Level 8.1L, Corrected Calcium 8.8, Magnesium Level 1.9, Total Bilirubin 0.3, Aspartate Amino Transf (AST/SGOT) 20, Alanine Aminotransferase (ALT/SGPT) 11, Alkaline Phosphatase 99, Myoglobin 94.7H , Troponin I < 0.028, Total Protein 5.4L, Albumin 3.1L, Procalcitonin 0.03, TSH [place] Testing 2.89, Cortisol AM Sample 12.8 04/10/20 09:08: Urine Color YELLOW, Urine Clarity SL CLOUDY, Urine pH 8.0, Urine Specific [place] 1.010L, Urine Protein NEGATIVE, Urine Glucose (UA) NEGATIVE, Urine Ketones NEGATIVE, Urine Nitrite POSITIVEH, Urine Bilirubin NEGATIVE, Urine Urobilinogen 0.2, Urine Leukocyte Esterase 2+H, Urine RBC (Auto) 2+H, Urine RBC 5-10H, Urine WBC 10-25H, Urine Squamous Epithelial Cells NONE, Urine Crystals NONE, Urine Bacteria LARGEH, Urine Casts NONE, Urine Mucus NEGATIVE, Urine Culture Indicated YES 04/10/20 09:10: C-Reactive Protein High Sensitivity 0.39, Valproic Acid (Depakene) Level 48.2L 04/10/20 09:50: Lactic Acid Level 1.55 04/10/20 10:13: Prothrombin Time 14.5, INR Comment 1.1 04/10/20 10:23: Glucometer 109 04/10/20 11:36: Glucometer 52*L 04/10/20 12:26: Glucometer 112H 04/10/20 12:28: Coronavirus (COVID-19)(PCR) Negative, Coronavirus 2019 (ULYSSES) Negative 04/10/20 15:15: Glucometer 77 04/10/20 17:00: Lactic Acid Level 1.39 04/10/20 18:23: Glucometer 121H 04/10/20 21:00: Sodium Level 132L, Potassium Level 3.8, Chloride Level 96L, Carbon Dioxide Level 23, Anion Gap 13, Blood Urea Nitrogen 23H, Creatinine 1.24, Estimat Glomerular Filtration Rate 43, BUN/Creatinine Ratio 19, Glucose Level 80, Calcium Level 8.3L, Magnesium Level 2.0, Troponin I 0.053H 04/10/20 21:04: Glucometer 88 04/10/20 22:31: Glucometer 74 04/11/20 00:34: Glucometer 101 04/11/20 02:02: Glucometer 125H 04/11/20 04:15: White Blood Count 9.2, Red Blood Count 3.23L, Hemoglobin 10.9L, Hematocrit 32L, Mean Corpuscular Volume 99, Mean Corpuscular Hemoglobin 34, Mean Corpuscular Hemoglobin Concent 34, Red Cell Distribution Width 12.4, Platelet Count 216, Mean Platelet Volume 9.2, Immature Granulocyte % (Auto) 2, Neutrophils (%) (Auto) 86H, Lymphocytes (%) (Auto) 7L, Monocytes (%) (Auto) 5, Eosinophils (%) (Auto) 0, Basophils (%) (Auto) 0, Neutrophils # (Auto) 8.0H, Lymphocytes # (Auto) 0.6L, Monocytes # (Auto) 0.5, Eosinophils # (Auto) 0.0, Basophils # (Auto) 0.0, Immature Granulocyte # (Auto) 0.2H, Neutrophils % (Manual) 84, Ly mphocytes % (Manual) 9, Monocytes % (Manual) 7, Blood Morphology Comment NORMAL, Sodium Level 132L, Potassium Level 3.6, Chloride Level 101, Carbon Dioxide Level 22, Anion Gap 9, Blood Urea Nitrogen 21H, Creatinine 1.06, Estimat Glomerular Filtration Rate 52, BUN/Creatinine Ratio 20, Glucose Level 144H, Calcium Level 8.1L, Phosphorus Level 2.7, Magnesium Level 1.8, Triglycerides Level 62, Cholesterol Level 223H, LDL Cholesterol Direct 154H, VLDL Cholesterol 12, HDL Cholesterol 57 04/11/20 06:58: Glucometer 136H Assessment/Plan Assessment/Plan Admission Diagonsis Urinary Tract Infection Hypotension Assessment/Plan Hypotension UTI Questionable right basilar pneumonia with questionable infiltrate by chest x-ray 1. Continue to wean NE as tolerated 2. Continue antibiotic coverage 3. Consider transfer to floor when NE titrated off and heymodynamically stable. Clinical Quality Measures DVT/VTE Risk/Contraindication: Risk Factor Score Per Nursin RFS Level Per Nursing on Admit: 3=High WILL HE DO 04/12/20 1624: Subjective Subjective/Events-last exam Still on pressor. Feeling better. Tolerating diet. No complaints at this time. Denies n/v fever sweats chills shortness of breath or chest pain. Objective Exam General Appearance: No Apparent Distress, Chronically ill HEENT: PERRL/EOMI, Normal ENT Inspection Neck: Normal Inspection, Other (Right IJ central line) Respiratory: Chest Non Tender, Normal Breath Sounds, No Respiratory Distress Cardiovascular: Regular Rate, Rhythm, No JVD Gastrointestinal: non tender, soft, no organomegaly Extremity: Normal Inspection, Pedal Edema Neurologic/Psychiatric: Alert, Oriented x3, No Motor/Sensory Deficits, Normal Mood/Affect, grade setter II-XII Norm as Tested Skin: Normal Color, Warm/Dry Lymphatic: No Adenopathy Assessment/Plan Assessment/Plan Assessment/Plan Hypotension UTI Questionable right basilar pneumonia with questionable infiltrate by chest x-ray central line placed yesterday no issues wean NE as tolerated continue antibiotic coverage no surgical issues at this time will sign off call if needed. Supervisory-Addendum Brief Verification & Attestation Participated in pt care: history, MDM, physical Personally performed: exam, history, MDM, supervision of care Care discussed with: Medical Student Procedures: n/a Results interpretation: Verified all documentation Verification and Attestation of Medical Student E/M Service A medical student performed and documented this service in my presence. I reviewed and verified all information documented by the medical student and made modifications to such information, when appropriate. I personally performed the physical exam and medical decision making. Will He, Apr 11, 2020,16:24 LIEN DOTY MED STUDENT Apr 11, 2020 07:46 WILL HE DO Apr 12, 2020 16:24
--- NOTE | 2020-04-11 08:29 | Diagnostic Imaging Report ---
INDICATION: Dyspnea. Time of exam 4:09 AM Correlation is made with prior chest from 04/10/2020. The heart size is stable. Right IJ line has tip overlying the SVC. There continues to be some probable patchy infiltrate in the right perihilar and right medial basilar region. Left lung is clear. No effusion is detected. There is no pneumothorax. IMPRESSION: There is some mild right perihilar and right basilar infiltrate or atelectasis. Study is otherwise unremarkable. Dictated by: Dictated on workstation # [id number]
[2020-04-11] MEDS ORDERED: CALCIUM CARBONATE 400 MG PO SCH (09:15)
[2020-04-11] MEDS ORDERED: CALC10009 PO (09:16)
--- NOTE | 2020-04-11 09:25 | NUR ---
8204-THIS NURSE NOTIFIED DR SANDOVAL PT WAS C/O 8/10 CHEST PAIN IN THE MIDDLE OF HER CHEST. HR IS 66 BP IS 106/59 OFF OF LEVO RIGHT NOW. PT SAYS SHE TAKES TUMS AT HOME WHEN SHE GETS THIS FEELING. ORDER GIVEN FOR EKG AND TO RESTART HOME TUMS. 6040- THIS NURSE NOTIFIED DR SNADOVAL OF EKG RESULTS. NO NEW ORDERS AT THIS TIME.
--- NOTE | 2020-04-11 09:30 | Progress Note - Hospitalist ---
SHILOH FLYNN,MED STUDENT 04/11/2030: Subjective HPI/CC On Admission Date Seen by Provider: Apr 11, 2020 Time Seen by Provider: 08:30 CC: Dizziness HPI: This is a alf patient assisted living of [facility] of [facility] Farr who presented to the ER with low BP. Pt felt fine but she does have significant dementia. Her BP was 70-80 systolic even though she has received 4 liters of fluid so pressor therapy was started. Mild UTI diagnosed along with a questionable right lung base pneumonia so she was placed on severe sepsis protocol, placed in the ICU with appropriate antibiotics of Meropenem and Vancomycin. Subjective/Events-last exam No new questions or concerns this morning BP improved and stable today Right IJ central line in place Continuing to receive D5, glucose 144 today Had breakfast this morning, tolerated well, no nausea BM today Santo catheter in place Focused Exam Lactate Level 04/10/20 09:50: Lactic Acid Level 1.55 04/10/20 17:00: Lactic Acid Level 1.39 Objective Exam Vital Signs Vital Signs Date Time Temp Pulse Resp B/P (MAP) Pulse Ox O2 Delivery O2 Flow Rate FiO2 04/11/20 09:00 67 13 113/56 (75) 96 Room Air 04/11/20 08:00 36.8 Capillary Refill : Less Than 3 SecondsLess Than 3 Seconds General Appearance: No Apparent Distress, WD/WN HEENT: PERRL/EOMI, Pharynx Normal; No Pharyngeal Erythema, No Tonsillar Exudate Neck: Non Tender, Supple Respiratory: Normal Breath Sounds, No Accessory Muscle Use, No Respiratory Distress Cardiovascular: Regular Rate, Rhythm, No Murmur, Normal Peripheral Pulses Gastrointestinal: Normal Bowel Sounds, Non Tender, Soft Extremity: Non Tender, No Calf Tenderness, No Pedal Edema Neurologic/Psychiatric: Alert, Oriented x3, Normal Mood/Affect Skin: Normal Color, Warm/Dry Results/Procedures Lab Laboratory Tests 04/10/20 21:00 04/11/20 04:15 Patient resulted labs reviewed. Assessment/Plan Assessment and Plan Assess & Plan/Chief Complaint Assessment: Hypotension Hypoglycemia Probable right basilar pneumonia Hypokalemia UTI Anemia Chronic renal insufficiency Hx of seizure disorder Hx of TBI Obesity Plan: Continue IV fluid & electrolyte replacement Mild right perihilar and right basilar infiltrate on CXR - on meropenem and vanc Continue to wean levophed COVID-19 ULYSSES & PCR negative Continue home antiepileptic medications Clinical Quality Measures DVT/VTE Risk/Contraindication: Risk Factor Score Per Nursin RFS Level Per Nursing on Admit: 3=High LYDIA SANDOVAL DO 04/11/202126: Subjective Subjective/Events-last exam Much improved Moving to 4th floor DC cath Review of Systems General: Fatigue, Malaise Objective Exam General Appearance: No Apparent Distress, WD/WN, Chronically ill Respiratory: Lungs Clear Cardiovascular: Regular Rate, Rhythm Assessment/Plan Assessment and Plan Assess & Plan/Chief Complaint Move to 4th Supervisory-Addendum Brief Verification & Attestation Participated in pt care: history, MDM, physical Personally performed: exam, history, MDM, supervision of care Care discussed with: Medical Student Procedures: n/a Results interpretation: Verified all documentation Verification and Attestation of Medical Student E/M Service A medical student performed and documented this service in my presence. I reviewed and verified all information documented by the medical student and made modifications to such information, when appropriate. I personally performed the physical exam and medical decision making. Lydia Sandoval, Apr 11, 2020,21:26 SHILOH FLYNN,MED STUDENT Apr 11, 2020 09:30 LYDIA SANDOVAL DO Apr 11, 2020 21:27
[2020-04-11] MEDS: CALCIUM CARBONATE 500 MG (TUMS) TAB.CHEW PO SCH ×2 (09:34→13:44)
[2020-04-11] MEDS: ENOXAPARIN 40 MG/0.4 ML (LOVENOX) SYR SC SCH (11:43)
[2020-04-11] MEDS ORDERED: MEROPENEM 500 MG/SWFI 10 ML IV PUSH IV SCH ×2 (12:00)
[2020-04-11] MEDS: D5 1/2 NS 1000 ML IV SOLUTION 1,000 ML IV SCH (14:08)
[2020-04-11] MEDS ORDERED: HYDR25TA4 PO (14:35)
--- NOTE | 2020-04-11 14:42 | Occupational Therapy Eval ---
OT Evaluation-General/PLF Medical Diagnosis Admission Date Apr 10, 2020 at 12:30 Medical Diagnosis: hypotension, hypoglycemia Onset Date: Apr 10, 2020 Therapy Diagnosis Therapy Diagnosis: weakness, decreased functional mobility Height/Weight Height (Feet): 5 Height (Inches): 4.00 Weight (Pounds): 166 Weight (Ounces): 0.0 Precautions Precautions/Isolations: Fall Prevention, Standard Precautions Referral Physician: Tiana Referral Reason: Evaluation/Treatment Medical History Pertinent Medical History: Arthritis, CAD, Dementia, HTN, TBI Additional Medical History vertigo, gallbladder sx, lumpectomy, chronic bronchitis, concussion, seizure disorder, irritable bowel Current History ED via EMS due to lightheadedness in room at [facility], pt asked staff to sandra e BP. Pt tested negative for COVID 04/10 Social History Home: Assisted Living ([facility]) ADL-Prior Level of Function SCALE: Activities may be completed with or without assistive devices. 0-Krufcuzxxg-zqtukzl completes the activity by him/herself with no assistance from a helper. 5-Set-up or Clean-up Assistance-helper sets up or cleans up; patient completes activity. [place] assists only prior to or following the activity. 4-Supervision or Touching Assistance-helper provides verbal cues and/or touching/steadying and/or contact guard assistance as patient completes activity. Assistance may be provided throughout the activity or intermittently. 3-Partial/Moderate Assistance-helper does LESS THAN HALF the effort. [place] lifts, holds or supports trunk or limbs, but provides less than half the effort. 2-Substantial/Maximal Assistance-helper does MORE THAN HALF the effort. [place] lifts or holds trunk or limbs and provides more than half the effort. 0-Fzowcyqxn-cjcwed does ALL the effort. Patient does none of the effort to complete the activity. Or, the assistance of 2 or more helpers is required for the patient to complete the activity. If activity was not attempted, code reason: 7-Patient Refused. 9-Not Applicable-not attempted and the patient did not perform the activity before the current illness, exacerbation or injury. 10-Not Attempted due to Environmental Limitations-(lack of equipment, weather restraints, etc.). 88-Not Attempted due to Medical Conditions or Safety Concerns. ADL PLOF Comments Pt resides at [facility]. She reports being independent with bathing and dressing at PLOF, but she has meals provided and assistance with cleaning. She was independent with functional mobility using 4WW Self Care: Needed Some Help Functional Cognition: Independent OT Current Status Subjective Pt laying in bed, agreeable to OT tx. Pt did not verbalize any pain during tx. Mental Status/Objective Patient Orientation: Person, Place, Time, Situation Attachments: IV, Telemetry Current Glasses/Contacts: Yes Hearing Aids: Yes Dentures/Partials: No Hand Dominance: Right Upper Extremity ROM WFL BUE Upper Extremity Coordination WFL Upper Extremity Sensation Pt reports some tingling in LUE but she is lying on L side, pt thinks her tingling may be due to this. Pt did not report any tingling throughout the rest of session. Upper Extremity Strength grossly 3/5 ADL-Treatment Eating (QC): 6 (Per pt report, she is able to cut food and bring to mouth. She sometimes has difficulty chewing tough food due to her teeth needing pulled but she is able to manage.) Other Treatments Pt laying in bed, agreeable to OT. OT educated pt on purpose and benefits of OT, she verbalized understanding. Pt then provided information about PLOF. Pt transferred supine to sit EOB with SBA, she then participated in UE screen. Pt able to doff socks, then states she needs to use the restroom right then, OT assisted pt with donning socks, then pt able to transfer from EOB to toilet with hand held assist and pt using bed/counter for support. Walker not present in room for transfer and pt stated she needed to use the restroom immediately. Pt completed toileting, then stood with CGA to perform hygiene. Pt then transferred to recliner, set up to the right side of the toilet. Pt able to use counter and hand held assist to transfer to chair. OT assisted pt with positioning recliner to comfort. Post OT tx, pt seated in recliner, call light in reach and all needs met. Education OT Patient Education: Correct positioning, Energy conservation, Modified ADL techniques, Progress toward Goal/Update tx plan, Purpose of tx/functional activities, Rehab process, Safety issues Teaching Recipient: Patient Teaching Methods: Discussion Response to Teaching: Verbalize Understanding OT Alf Goals Office Machine Technician Goals Time Frame: Apr 19, 2020 Eating (QC): 6 Oral Hygiene (QC): 6 Toileting Hygiene (QC): 6 Shower/Bathe Self (QC): 6 Upper Body Dressing (QC): 6 Lower Body Dressing (QC): 6 On/Off Footwear (QC): 6 1=Demonstrate adherence to instructed precautions during ADL tasks. 2=Patient will verbalize/demonstrate understanding of assistive devices/modifications for ADL. 3=Patient will improve strength/tolerance for activity to enable patient to perform ADL's. OT Education/Plan Problem List/Assessment Assessment: Decreased Activ Tolerance, Decreased UE Strength, Impaired Funct Balance, Impaired I ADL's, Impaired Self-Care Skills Discharge Recommendations Plan/Recommendations: Continue POC Treatment Plan/Plan of Care Patient would benefit from OT for education, treatment and training to promote independence in ADL's, mobility, safety and/or upper extremity function for ADL's. Plan of Care: ADL Retraining, Functional Mobility, UE Funct Exercise/Act Treatment Duration: Apr 19, 2020 Frequency: 5 times per week Estimated Hrs Per Day: .25 hour per day Rehab Potential: Good Time/GCodes Start Time: 13:35 Stop Time: 14:03 Total Time Billed (hr/min): 28 Billed Treatment Time 1, EVL (10'), ADL (18') WADE ALATORRE OT Apr 11, 2020 14:42
[2020-04-11] MEDS ORDERED: VANCOMYCIN 1250 MG/NS 250 ML IVPB IV SCH ×2 (15:00)
--- NOTE | 2020-04-11 15:06 | NUR ---
CALLED REPORT TO JULIA WHITE ON FOURTH FLOOR.
--- NOTE | 2020-04-11 15:29 | NUR ---
RECEIVED FROM ICU, ALERT, DENIES PAIN OR SOB, IV SITE WITHOUT REDNESS OR SWELLING, ORIENTED TO ROOM, CALL LIGHT WITHIN REACH
--- NOTE | 2020-04-11 15:30 | Physical Therapy Evaluation ---
PT Evaluation-General Medical Diagnosis Admission Date Apr 10, 2020 at 12:30 Medical Diagnosis: hypotension, hypoglycemia Onset Date: Apr 10, 2020 Therapy Diagnosis Therapy Diagnosis: debility Height/Weight Height (Feet): 5 Height (Inches): 4.00 Weight (Pounds): 166 Weight (Ounces): 0.0 Precautions Precautions/Isolations: Fall Prevention, Standard Precautions Referral Physician: Tiana Reason for Referral: Evaluation/Treatment Medical History Pertinent Medical History: Arthritis, CAD, Dementia, HTN, TBI Current History EMS secondary to dizziness/hypotensive Reviewed History: Yes Social History Home: Assisted Living ([facility]) Prior Prior Level of Function SCALE: Activities may be completed with or without assistive devices. 2-Kfauhabjye-otvltcq completes the activity by him/herself with no assistance from a helper. 5-Set-up or Clean-up Assistance-helper sets up or cleans up; patient completes activity. [place] assists only prior to or following the activity. 4-Supervision or Touching Assistance-helper provides verbal cues and/or touching/steadying and/or contact guard assistance as patient completes activity. Assistance may be provided throughout the activity or intermittently. 3-Partial/Moderate Assistance-helper does LESS THAN HALF the effort. [place] lifts, holds or supports trunk or limbs, but provides less than half the effort. 2-Substantial/Maximal Assistance-helper does MORE THAN HALF the effort. [place] lifts or holds trunk or limbs and provides more than half the effort. 2-Cxwohzffx-dcyioa does ALL the effort. Patient does none of the effort to complete the activity. Or, the assistance of 2 or more helpers is required for the patient to complete the activity. If activity was not attempted, code reason: 7-Patient Refused. 9-Not Applicable-not attempted and the patient did not perform the activity before the current illness, exacerbation or injury. 10-Not Attempted due to Environmental Limitations-(lack of equipment, weather restraints, etc.). 88-Not Attempted due to Medical Conditions or Safety Concerns. Bed Mobility: 6 Transfers (B,C,W/C): 6 Gait: 6 Stairs: 9 Indoor Mobility (Ambulation): Independent Stairs: Not [place]lical[place] Prior Devices Use: Walker PT Evaluation-Current Subjective Patient is very agreeable to participate with therapy. Objective Patient Orientation: Person, Time, Situation Attachments: IV ROM/Strength ROM Lower Extremities bilateral LE WFL (noted edema and redness) Strength Lower Extremities 3+/5 grossly bilateral LE Integumentary/Posture Integumentary refer to nursing notes Bowel Incontinence: No Bladder Incontinence: Yes Posture slight trunk flexed posture Neuromuscular (Tone, Coordination, Reflexes) grossly intact Sensory Vision: Functional Hearing: Functional Hand Dominance: Right Transfers Sit to Stand (QC): 5 Gait Does the Patient Walk?: Yes Mode of Locomotion: Walk Anticipated Mode of Locomotion: Walk Walk 10 feet (QC): 5 Walk 50 ft with 2 Turns(QC): 5 Walk 150 ft (QC): 5 Gait Assistive Device: FWW Comments/Gait Description slow, steady, functional gait sequence Balance Sitting Static: Normal Sitting Dynamic: Normal Standing Static: Fair Standing Dynamic: Fair Assessment/Needs 69 y.o. female,will be seen short term by skilled PT to address functional mobility and strength to ensure safe return to [place] at maximum LOF. Rehab Potential: Fair PT Short Term Goals Short Term Goals Time Frame: Apr 17, 2020 Roll Left & Right: 5 Sit to lyin Lying to sitting on side of be: 5 Sit to stand: 5 Chair/gdi-nd-lhqho transfer: 5 Toilet transfer: 5 Walk 10 feet: 5 Walk 50 feet with two turns: 5 Walk 150 feet: 5 PT Plan Problem List Problem List: Safety Treatment/Plan Treatment Plan: Continue Plan of Care Treatment Plan: Education, Functional Activity Tang, Functional Strength, Gait, Safety, Therapeutic Exercise, Transfers Treatment Duration: Apr 17, 2020 Frequency: 6 times per week Estimated Hrs Per Day: .25 hour per day Patient and/or Family Agrees t: Yes Time/GCodes Time In: 1405 Time Out: 1435 Total Billed Treatment Time: 30 Total Billed Treatment 1 visit EVModC 15 min GT 15 min KOREY LIN PT Apr 11, 2020 15:30
[2020-04-11] MEDS ORDERED: PRED5TAB PO (16:23)
[2020-04-11] MEDS ORDERED: QUET100T33 PO (16:32)
--- NOTE | 2020-04-11 16:36 | NUR ---
THE MED REC WAS ENTERED USING THE ORDER SUMMARY REPORT FROM JIMMIE DELATORRE I CALLED THE FACILITY TO GET CLARIFICATION ON SEROQUEL- THE MEDICATION LIST HAS SEROQUEL XR 150MG HS AND SEROQUEL 50MG DAILY, HOWEVER ON THE EXT MED HISTORY THE 150MG HAS NOT BEEN FILLED SINCE DECEMBER 2019 W/ GISELA. WHEN I CALLED JIMMIE DELATORRE THEY READ THE ORDER SUMMARY BACK TO ME ( LISTED ABOVE) BUT THEN I ASKED IF THEY COULD PULL THE MED CARDS TO VERIFY THE INFORMATION. AT THIS TIME THEY REALIZED THERE WAS INCORRECT INFORMATION ON THE MED LIST AND WAS GOING TO ALERT THE NURSE. THE CORRECT STRENGTHS ARE FOLLOWS: SEROQUEL 100MG HS SEROQUEL 50MG DAILY
[2020-04-11] MEDS: toPIRamate 25 MG (TOPAMAX) TAB PO SCH (20:39)
[2020-04-11] MEDS: LEVETIRACETAM 1,000 MG (KEPPRA) TABLET PO SCH (20:39)
[2020-04-11] MEDS ORDERED: NON-FORMULARY MEDICATION 1 EA EA (Topiramate 50 MG) PO SCH (21:00)
[2020-04-12] VITALS: BP 129/84
[2020-04-12 04:00] VITALS: BP 127/80
[2020-04-12] MEDS: D5 1/2 NS 1000 ML IV SOLUTION 1,000 ML IV SCH (04:41)
[2020-04-12] MEDS: MEROPENEM 500 MG/SWFI 10 ML IV PUSH IV SCH ×4 (04:56→11:02)
[2020-04-12 04:57] LABS: BASOPHILS % (AUTO) 0 % (0-10); EOSINOPHILS % (AUTO) 0 % (0-10); HEMATOCRIT 34 % (35-52); HEMOGLOBIN 11.2 g/dL (11.5-16.0); LYMPHOCYTES # (AUTO) 1.3 10^3/uL (1.0-4.0); LYMPHOCYTES % (AUTO) 13 % (12-44); MEAN CORPUSCULAR HEMOGLOBIN 33 pg (25-34); MEAN CORPUSCULAR HGB CONC 33 g/dL (32-36); MEAN CORPUSCULAR VOLUME 100 fL (80-99); MEAN PLATELET VOLUME 9.6 fL (9.0-12.2); MONOCYTES % (AUTO) 10 % (0-12); NEUTROPHILS # (AUTO) 6.9 10^3/uL (1.8-7.8); NEUTROPHILS % (AUTO) 73 % (42-75); PLATELET COUNT 210 10^3/uL (130-400); WHITE BLOOD COUNT 9.4 10^3/uL (4.3-11.0)
[2020-04-12 05:06] LABS: CHLORIDE 101 MMOL/L (98-107); POTASSIUM 3.7 MMOL/L (3.6-5.0); SODIUM 131 MMOL/L (135-145)
[2020-04-12 05:07] LABS: CALCIUM 8.8 MG/DL (8.5-10.1)
[2020-04-12 05:08] LABS: GLUCOSE 114 MG/DL (70-105)
[2020-04-12 05:09] LABS: CARBON DIOXIDE 22 MMOL/L (21-32)
[2020-04-12 05:11] LABS: PHOSPHORUS 2.3 MG/DL (2.3-4.7)
[2020-04-12 05:12] LABS: CREATININE SERUM 0.81 MG/DL (0.60-1.30); GFR ESTIMATED > 60
[2020-04-12 05:13] LABS: BUN/CREATININE RATIO 22
[2020-04-12 05:14] LABS: MAGNESIUM 1.8 MG/DL (1.6-2.4)
[2020-04-12 07:10] VITALS: BP 119/71
[2020-04-12] MEDS: LEVETIRACETAM 1,000 MG (KEPPRA) TABLET PO SCH (08:05)
[2020-04-12] MEDS: HYDROCORTISONE 100 MG/2 ML (Solu-CORTEF) VIAL IV SCH (08:05)
[2020-04-12] MEDS: toPIRamate 25 MG (TOPAMAX) TAB PO SCH (08:05)
[2020-04-12] MEDS: CALCIUM CARBONATE 500 MG (TUMS) TAB.CHEW PO SCH (09:49)
[2020-04-12] MEDS ORDERED: polyethylene glycoL POWDER 17 GM (MIRALAX) PACK PO PRN (10:30)
[2020-04-12] MEDS ORDERED: NON-FORMULARY MEDICATION 1 EA EA (Clobetasol Propionate 1 APPLIC) TOP SCH (10:30)
[2020-04-12] MEDS ORDERED: prednisoLONE 1% OPTH (PRED FORTE) 5 ML BTL OU SCH (10:30)
[2020-04-12] MEDS ORDERED: LACTULOSE SYRUP 10GM/15ML (ENULOSE) 30ML UDC PO PRN (11:00)
[2020-04-12] MEDS ORDERED: ASCORBIC ACID (VIT C) 500 MG TABLET PO SCH (11:00)
[2020-04-12] MEDS ORDERED: ACETAMINOPHEN 325 MG TABLET PO PRN (11:00)
[2020-04-12] MEDS ORDERED: diphenhydrAMINE 25 MG TAB (BENADRYL) PO PRN (11:00)
[2020-04-12] MEDS ORDERED: DULoxetine 30 MG (CYMBALTA) CAP PO SCH (11:00)
[2020-04-12] MEDS: ENOXAPARIN 40 MG/0.4 ML (LOVENOX) SYR SC SCH (11:04)
--- NOTE | 2020-04-12 11:04 | Occupational Ther Daily Note ---
OT Current Status-Daily Note Subjective Pt seated in recliner, agreeable to OT tx. Pt reports 7/10 pain at base of bilateral shoulder blades, pt requesting Tums, nursing notified. ADL-Treatment Therapy Code Descriptions/Definitions Functional [place] Measure: 0=Not Assessed/NA 4=Minimal Assistance 1=Total Assistance 5=Supervision or Setup 2=Maximal Assistance 6=Modified [place] 3=Moderate Assistance 7=Complete IndependenceSCALE: Activities may be completed with or without assistive devices. 8-Wrwhyuifmu-fyzeamn completes the activity by him/herself with no assistance from a helper. 5-Set-up or Clean-up Assistance-helper sets up or cleans up; patient completes activity. [place] assists only prior to or following the activity. 4-Supervision or Touching Assistance-helper provides verbal cues and/or touching/steadying and/or contact guard assistance as patient completes activity. Assistance may be provided throughout the activity or intermittently. 3-Partial/Moderate Assistance-helper does LESS THAN HALF the effort. [place] lifts, holds or supports trunk or limbs, but provides less than half the effort. 2-Substantial/Maximal Assistance-helper does MORE THAN HALF the effort. [place] lifts or holds trunk or limbs and provides more than half the effort. 2-Qudgslcnd-bfadno does ALL the effort. Patient does none of the effort to complete the activity. Or, the assistance of 2 or more helpers is required for the patient to complete the activity. If activity was not attempted, code reason: 7-Patient Refused. 9-Not Applicable-not attempted and the patient did not perform the activity before the current illness, exacerbation or injury. 10-Not Attempted due to Environmental Limitations-(lack of equipment, weather restraints, etc.). 88-Not Attempted due to Medical Conditions or Safety Concerns. Oral Hygiene (QC): 7 Other Treatment Pt seated in recliner, OT introduced self to pt. Pt agreeable to OT tx, OT encouraged pt to complete ADLs such as grooming and oral care, pt declined stating she would rather complete arm exercises. In order to increase BUE strength and functional endurance, pt completed x10 reps BUE AROM for the following movements: shoulder flexion, elbow flexion/extension, wrist fl exion/extension and finger flexion/extension, with rest breaks as needed. OT asked pt if she needed anything else, pt states "that's all we are going to do?" OT informed pt that she encouraged her to complete grooming tasks but she declined, OT states she could go get toothbrush for pt. Pt again declines task, but agreeable to standing at FWW. Pt able to stand at FWW ~5 mins, SBA. Pt then sat back in recliner. Post OT tx, pt seated in recliner, call light in reach and all needs met. Education OT Patient Education: Correct positioning, Exercise program, Modified ADL techniques, Progress toward Goal/Update tx plan, Purpose of tx/functional activities, Safety issues Teaching Recipient: Patient Teaching Methods: Discussion Response to Teaching: Verbalize Understanding OT Residential Goals Adult Services Librarian Goals Time Frame: Apr 19, 2020 Eating (QC): 6 Oral Hygiene (QC): 6 Toileting Hygiene (QC): 6 Shower/Bathe Self (QC): 6 Upper Body Dressing (QC): 6 Lower Body Dressing (QC): 6 On/Off Footwear (QC): 6 1=Demonstrate adherence to instructed precautions during ADL tasks. 2=Patient will verbalize/demonstrate understanding of assistive devices/modifications for ADL. 3=Patient will improve strength/tolerance for activity to enable patient to perform ADL's. OT Education/Plan Problem List/Assessment Assessment: Decreased Activ Tolerance, Decreased UE Strength, Impaired I ADL's, Impaired Self-Care Skills Discharge Recommendations Plan/Recommendations: Continue POC Treatment Plan/Plan of Care Patient would benefit from OT for education, treatment and training to promote independence in ADL's, mobility, safety and/or upper extremity function for ADL's. Plan of Care: ADL Retraining, Functional Mobility, UE Funct Exercise/Act Treatment Duration: Apr 19, 2020 Frequency: 5 times per week Estimated Hrs Per Day: .25 hour per day Rehab Potential: Fair Time/GCodes Start Time: 09:42 Stop Time: 10:02 Total Time Billed (hr/min): 20 Billed Treatment Time 1, EX WADE ALATORRE OT Apr 12, 2020 11:04
--- NOTE | 2020-04-12 11:06 | Physical Therapy Daily Note ---
PT Daily Note-Current Subjective Patient states she hopes to go home today. Agrees to PT. Pain Numeric Pain Scale: 0-No Pain Location: No Pain Reported Mental Status Patient Orientation: Normal For Age Attachments: IV Transfers SCALE: Activities may be completed with or without assistive devices. 5-Sywpholnnh-kooqcpf completes the activity by him/herself with no assistance from a helper. 5-Set-up or Clean-up Assistance-helper sets up or cleans up; patient completes activity. [place] assists only prior to or following the activity. 4-Supervision or Touching Assistance-helper provides verbal cues and/or touching/steadying and/or contact guard assistance as patient completes activity. Assistance may be provided throughout the activity or intermittently. 3-Partial/Moderate Assistance-helper does LESS THAN HALF the effort. [place] lifts, holds or supports trunk or limbs, but provides less than half the effort. 2-Substantial/Maximal Assistance-helper does MORE THAN HALF the effort. [place] lifts or holds trunk or limbs and provides more than half the effort. 8-Hxtsjqzdy-jvndbj does ALL the effort. Patient does none of the effort to complete the activity. Or, the assistance of 2 or more helpers is required for the patient to complete the activity. If activity was not attempted, code reason: 7-Patient Refused. 9-Not Applicable-not attempted and the patient did not perform the activity before the current illness, exacerbation or injury. 10-Not Attempted due to Environmental Limitations-(lack of equipment, weather restraints, etc.). 88-Not Attempted due to Medical Conditions or Safety Concerns. Sit to Stand (QC): 6 Gait Training Does the Patient Walk?: Yes Distance: 450' Walk 10 feet (QC): 6 Walk 50 ft with 2 Turns(QC): 6 Walk 150 ft (QC): 6 Gait Assistive Device: FWW VC's for body placement in FWW for safety Exercises Seated Therapy Exercises: Ankle pumps, Long arc quads, Hip flexion Seated Reps: 12 Assessment Patient much improved with gross motor skills. Plan dismissal to home ([place] ) this week. PT Short Term Goals Short Term Goals Time Frame: Apr 17, 2020 Roll Left & Right: 5 Sit to lyin Lying to sitting on side of be: 5 Sit to stand: 5 Chair/sgs-lk-sqdcc transfer: 5 Toilet transfer: 5 Walk 10 feet: 5 Walk 50 feet with two turns: 5 Walk 150 feet: 5 PT Plan Treatment/Plan Treatment Plan: Continue Plan of Care Treatment Plan: Education, Functional Activity Tang, Functional Strength, Gait, Safety, Therapeutic Exercise, Transfers Treatment Duration: Apr 17, 2020 Frequency: 6 times per week Estimated Hrs Per Day: .25 hour per day Patient and/or Family Agrees t: Yes Time/GCodes Time In: 957 Time Out: 1020 Total Billed Treatment Time: 23 Total Billed Treatment 1 visit EX 8 min GT 15 min KOREY LIN PT Apr 12, 2020 11:06
--- NOTE | 2020-04-12 11:25 | NUR ---
JA/MIKO visited with patient for discharge planning. Plan: Patient will return to [facility] at time of discharge. [facility] will provide transportation. ALEX visited with patient. She reports that she is doing well today and believes she will get to return home. ALEX spoke with the patient's physician. She will see patient but believes it will be a discharge for today. JA/MIKO contacted Anthony at [facility] to send updated clinical. JA/MIKO called back to set up a last picker time. technical support assistant time is for 2:00 p.m. today if she is able to go. No further needs at this time. Addendum: 04/12/20 at 1223 by AQUILINO ALBARRAN JA/MIKO faxed finalized discharge to facility and copy of negative COVID test. ALEX verified with Anthony that patient will still have to be quarantine for 14 days even with negative test. JA/MIKO attempted to contact the patient's brother Addy to inform him of discharge. No answer and voice mail was not set up.
[2020-04-12] MEDS ORDERED: CEFD300C3 PO (12:13)
--- NOTE | 2020-04-12 12:15 | Discharge Summary ---
Discharge Summary Hospital Course Was the Problem List Reviewed?: Yes Problems/Dx: (1) Hypotension Status: Acute Qualifiers: Qualified Codes: I95.9 - Hypotension, unspecified (2) Pneumonia Status: Acute (3) Acute kidney injury superimposed on chronic kidney disease Status: Resolved (4) Urinary tract infection Status: Acute Qualifiers: Qualified Codes: N39.0 - Urinary tract infection, site not specified (5) Hypokalemia (6) Hypoglycemia Status: Acute Hospital Course Date of Admission: Apr 10, 2020 at 12:30 Admission Diagnosis : Family Physician/Provider: Addy Farr MD Date of Discharge: 04/12/20 Discharge Diagnosis: Hypotension, PNA, sepsis, hypoglycemia, seizure d/o Hospital Course: Hospital course: Ms. Gibbs is a 69yo female patient who presented to [facility] ED from [facility] via EMS on 04/10 c/o dizziness and hypotension. She woke up that morning and felt dizzy, and [facility] staff noted her blood pressure to be low, so she was brought in. She had recently been treated at [facility] in the ICU on 03/13 for CAP and septic shock. In the ED she was found to be hypotensive, hypoglycemic, and hypokalemic. She was given IV fluids, started on Levophed and meropenem, and admitted to the ICU. A chest x-ray revealed probable right basilar pneumonia, and urinalysis revealed a UTI, and vancomycin was added to her regimen. During her stay in the ICU her blood pressure improved, and she was weaned off of Levophed. She was then transitioned to the 4th floor and continued to improve. On exam prior to discharge, she denied any pain, denied dizziness, CP, palpitations, SOB, and n/v/d/abdominal pain. She had been having bowel movements, and was able to ambulate with assistive device. She expressed a desire to return home to [facility], and denied any further questions or concerns. SHILOH FLYNN,MED STUDENT Labs and Pending Lab Test: Laboratory Tests 04/11/20 17:20: Glucometer 86 04/11/20 21:18: Glucometer 99 04/12/20 04:50: White Blood Count 9.4, Red Blood Count 3.36L, Hemoglobin 11.2L, Hematocrit 34L, Mean Corpuscular Volume 100H, Mean Corpuscular Hemoglobin 33, Mean Corpuscular Hemoglobin Concent 33, Red Cell Distribution Width 12.8, Platelet Count 210, Mean Platelet Volume 9.6, Immature Granulocyte % (Auto) 3, Neutrophils (%) (Auto) 73, Lymphocytes (%) (Auto) 13, Monocytes (%) (Auto) 10, Eosinophils (%) (Auto) 0, Basophils (%) (Auto) 0, Neutrophils # (Auto) 6.9, Lymphocytes # (Auto) 1.3, Monocytes # (Auto) 1.0, Eosinophils # (Auto) 0.0, Basophils # (Auto) 0.0, Immature Granulocyte # (Auto) 0.3H, Sodium Level 131L, Potassium Level 3.7, Chloride Level 101, Carbon Dioxide Level 22, Anion Gap 8, Blood Urea Nitrogen 18, Creatinine 0.81, Estimat Glomerular Filtration Rate > 60, BUN/Creatinine Ratio 22, Glucose Level 114H, Calcium Level 8.8, Phosphorus Level 2.3, Magnesium Level 1.8 Microbiology 04/10/20 MRSA Screen - Final, Complete MRSA not isolated 04/10/20 Blood Culture - Preliminary, Resulted No growth 04/10/20 Urine Culture - Preliminary, Resulted Escherichia coli Home Meds Active Cefdinir 300 Mg Capsule 300 Mg PO BID Reported Quetiapine Fumarate 100 Mg Tablet 100 Mg PO HS Prednisone 5 Mg Tablet 5 Mg PO DAILY Hydrochlorothiazide 25 Mg Tablet 25 Mg PO DAILY Tylenol (Acetaminophen) 325 Mg Capsule 650 Mg PO Q6H PRN Quetiapine Fumarate 50 Mg Tablet 50 Mg PO DAILY Pramipexole Dihydrochloride (Pramipexole Di-HCl) 0.5 Mg Tablet 0.5 Mg PO TID Furosemide 40 Mg Tablet 40 Mg PO DAILY Depakote ER (Divalproex Sodium) 500 Mg Tab.er.24h 1,000 Mg PO BID TAKES 2 (500MG) TABS Diphenhydramine HCl 25 Mg Capsule 50 Mg PO Q6H PRN Clobetasol Propionate 50 Ml Solution 1 Applic TP BID APPLY TO THE SCALP Clobetasol Propionate 118 Ml Shampoo 1 Applic TOP Q72H Vitamin E (Vitamin E (Dl,Tocopheryl Acet)) 400 Unit Capsule 400 Unit PO DAILY Vitamin C (Ascorbic Acid) 1,000 Mg Tablet 1,000 Mg PO DAILY Topiramate 50 Mg Tablet 50 Mg PO BID Spironolactone 100 Mg Tablet 100 Mg PO DAILY Pantoprazole Sodium 40 Mg Tablet.dr 40 Mg PO DAILY Miralax (Polyethylene Glycol 3350) 17 Gm Powd.pack 17 Gm PO DAILY PRN Melatonin 3 Mg Tablet 3 Mg PO HS Lactulose 10 Gm/15 Ml Solution 30 Ml PO DAILY PRN Cymbalta (Duloxetine HCl) 60 Mg Capsule.dr 60 Mg PO DAILY Levetiracetam 1,000 Mg Tablet 1,000 Mg PO BID Prednisolone Acetate 5 Ml Drops.susp 1 Drop OU Q48H Oxybutynin Chloride ER (Oxybutynin Chloride) 15 Mg Tab.er.24 15 Mg PO HS Meloxicam 15 Mg Tablet 15 Mg PO DAILY Aspirin EC (Aspirin) 81 Mg Tablet.dr 81 Mg PO DAILY Assessment/Pt Instructions PCP 2 weeks Discharge Planning: <30 minutes discharge planning Discharge Instructions Discharge Diet: No Restrictions Discharge Physical Examination Vital Signs Vital Signs Date Time Temp Pulse Resp B/P (MAP) Pulse Ox O2 Delivery O2 Flow Rate FiO2 04/12/20 08:00 Room Air 04/12/20 07:10 36.2 66 20 119/71 (87) 99 General Appearance: No Apparent Distress, WD/WN, Chronically ill Respiratory: Lungs Clear Cardiovascular: Regular Rate, Rhythm Allergies: Coded Allergies: Penicillins (Verified Allergy, Mild, 07/22/13) latex (Verified Allergy, Mild, 07/22/13) Discharge Summary Date of Admission Apr 10, 2020 at 12:30 Date of Discharge Discharge Date: Apr 12, 2020 Admission Diagnosis ICU Hypotension treatment Abx Discharge Diagnosis Move to 4th (1) Hypotension Status: Acute Qualifiers: Qualified Codes: I95.9 - Hypotension, unspecified (2) Pneumonia Status: Acute (3) Acute kidney injury superimposed on chronic kidney disease Status: Resolved (4) Urinary tract infection Status: Acute Qualifiers: Qualified Codes: N39.0 - Urinary tract infection, site not specified (5) Hypokalemia (6) Hypoglycemia Status: Acute Clinical Quality Measures DVT/VTE Risk/Contraindication: Risk Factor Score Per Nursin RFS Level Per Nursing on Admit: 3=High DADA SANDOVAL DO Apr 12, 2020 12:15
--- NOTE | 2020-04-12 12:50 | Progress Note ---
SHILOH FLYNN,RAINA STUDENT 04/12/20 1250: Progress Note Hospital course: Ms. Gibbs is a 69yo female patient who presented to [facility] ED from [facility] via EMS on 04/10 c/o dizziness and hypotension. She woke up that morning and felt dizzy, and [facility] staff noted her blood pressure to be low, so she was brought in. She had recently been treated at [facility] in the ICU on 03/13 for CAP and septic shock. In the ED she was found to be hypotensive, hypoglycemic, and hypokalemic. She was given IV fluids, started on Levophed and meropenem, and admitted to the ICU. A chest x-ray revealed probable right basilar pneumonia, and urinalysis revealed a UTI, and vancomycin was added to her regimen. During her stay in the ICU her blood pressure improved, and she was weaned off of Levophed. She was then transitioned to the 4th floor and continued to improve. On exam prior to discharge, she denied any pain, denied dizziness, CP, palpitations, SOB, and n/v/d/abdominal pain. She had been having bowel movements, and was able to ambulate with assistive device. She expressed a desire to return home to [facility], and denied any further questions or concerns. LYDIA SANDOVAL DO 04/13/20 0554: Supervisory-Addendum Brief Verification & Attestation Participated in pt care: history, MDM, physical Personally performed: exam, history, MDM, supervision of care Care discussed with: Medical Student Procedures: n/a Results interpretation: Verified all documentation Verification and Attestation of Medical Student E/M Service A medical student performed and documented this service in my presence. I re viewed and verified all information documented by the medical student and made modifications to such information, when appropriate. I personally performed the physical exam and medical decision making. Lydia Sandoval Apr 13, 2020,05:54 SHILOH FLYNN MED STUDENT Apr 12, 2020 12:50 LYDIA SANDOVAL DO Apr 13, 2020 05:54
[2020-04-12] MEDS ORDERED: OXYBUTYNIN (DITROPAN) 5 MG TAB PO SCH (13:00)
[2020-04-12] MEDS ORDERED: PRAMIPEXOLE 0.5 MG TAB (MIRAPEX) PO SCH (13:00)
--- NOTE | 2020-04-12 13:40 | NUR ---
Report called to [facility] at this time. All questions answered and call back number left with RN on duty.
[2020-04-12] MEDS ORDERED: NON-FORMULARY MEDICATION 1 EA EA (Clobetasol Propionate 1 APPLIC) TP SCH (21:00)
[2020-04-12] MEDS ORDERED: DIVALPROEX EXT RELEASE 500 MG (DEPAKOTE ER) TAB PO SCH (21:00)
[2020-04-12] MEDS ORDERED: MELATONIN 3 MG TABLET PO SCH (21:00)
[2020-04-12] MEDS ORDERED: QUEtiapine 100 MG (SEROquel) TAB IMMEDIATE RELEASE PO SCH (21:00)
[2020-04-13] MEDS ORDERED: predniSONE 5 MG TAB PO SCH (07:00)
[2020-04-13] MEDS ORDERED: PANTOPRAZOLE 40 MG (PROTONIX) TAB PO SCH (09:00)
[2020-04-13] MEDS ORDERED: HYDROCHLOROTHIAZIDE 25 MG (HCTZ) TAB PO SCH (09:00)
[2020-04-13] MEDS ORDERED: FUROSEMIDE 40 MG (LASIX) TAB PO SCH (09:00)
[2020-04-13] MEDS ORDERED: MELOXICAM 7.5 MG (MOBIC) TABLET PO SCH (09:00)
[2020-04-13] MEDS ORDERED: VITAMIN E 180 MG (400 UNITS) CAP PO SCH ×2 (09:00)
[2020-04-13] MEDS ORDERED: ASPIRIN E.C. 81 MG (ECOTRIN) TAB PO SCH (09:00)
[2020-04-13] MEDS ORDERED: QUEtiapine 25 MG (SEROquel) TAB IMMEDIATE RELEASE PO SCH (09:00)
== END 2020-04-12 14:02 | DRG 871 ==
LOC: EDUNIT# 08:55 → ER 08:57 → ICU 12:30 → 4TH 04-11 13:30
PROVIDERS: ADMIT Internal Medicine; ATTEND Internal Medicine
PROC: 02HV33Z Insertion of Infusion Device into Superior Vena Cava, Percutaneous Approach (ICD-10-PCS; principal; 2020-04-10)
DX: A41.9 Sepsis, unspecified organism (principal); J18.9 Pneumonia, unspecified organism; N39.0 Urinary tract infection, site not specified; N17.9 Acute kidney failure, unspecified; R65.20 Severe sepsis without septic shock; I12.9 Hypertensive chronic kidney disease with stage 1 through stage 4 chronic kidney disease, or unspecified chronic kidney disease; N18.9 Chronic kidney disease, unspecified; I95.9 Hypotension, unspecified; R42 Dizziness and giddiness; J42 Unspecified chronic bronchitis; I25.10 Atherosclerotic heart disease of native coronary artery without angina pectoris; R60.9 Edema, unspecified; E78.00 Pure hypercholesterolemia, unspecified; G25.81 Restless legs syndrome; F03.90 Unspecified dementia, unspecified severity, without behavioral disturbance, psychotic disturbance, mood disturbance, and anxiety; G40.909 Epilepsy, unspecified, not intractable, without status epilepticus; D64.9 Anemia, unspecified; K21.9 Gastro-esophageal reflux disease without esophagitis; K58.1 Irritable bowel syndrome with constipation; K58.0 Irritable bowel syndrome with diarrhea; G47.9 Sleep disorder, unspecified; F31.9 Bipolar disorder, unspecified; E66.9 Obesity, unspecified; E16.2 Hypoglycemia, unspecified; E87.6 Hypokalemia; L40.9 Psoriasis, unspecified; Z87.898 Personal history of other specified conditions; Z87.820 Personal history of traumatic brain injury; Z87.891 Personal history of nicotine dependence; Z68.33 Body mass index [BMI] 33.0-33.9, adult; Z20.828 Contact with and (suspected) exposure to other viral communicable diseases
CPT/HCPCS: 36415; 51701; 71045; 80048; 80053; 80061; 80164; 81000; 82533; 82962; 83605; 83735; 83874; 84100; 84145; 84443; 84484; 85007; 85025; 85027; 85610; 85730; 86141; 87040; 87077; 87081; 87088; 87186; 87635; 93005; 93041; 96361; 96365; 96366; 96375

== ENCOUNTER 2020-06-29 07:29 | Emergency (ER) | payer MEDICARE, BC, MEDICAID ==
[~2020-06-29] VITALS: Ht 165.1 cm; Wt 88.9 kg
[~2020-06-29 07:29] MED LIST changes: +CALC10009 PO; +HYDR25TA4 PO; +PRED5TAB PO; +QUET100T33 PO; -RISP1TAB3 PO; +RISP1TAB93 PO
[2020-06-29 07:31] VITALS: BP 102/44
[2020-06-29] MEDS ORDERED: ACETAMINOPHEN 500 MG TAB (TYLENOL) ONE (07:38)
[2020-06-29] MEDS ORDERED: NS IV 1000 ML 1,000 ML ONE (07:40)
--- NOTE | 2020-06-29 07:55 | ED General ---
General Stated Complaint: AMS Source of Information: EMS Exam Limitations: Other (Confusion) History of Present Illness Date Seen by Provider: Jun 29, 2020 Time Seen by Provider: 07:53 Initial Comments Patient is a 70-year-old female who presents to the emergency department today with a chief complaint of altered mental status and fever. Reportedly the kevin dennis lives in an assisted living facility and has not had any nursing care over the last 2 days. When they found her this morning she was confused and had a bruised/discolored left foot. Patient seems to be pleasantly confused. She is aware that it is 2019 however she cannot tell me the day of the week or the date. She also cannot tell me her location currently. Patient denies any complaints of pain. She does demonstrate an active wet sounding cough. Patient denies any chest pain, shortness of breath. She denies any abdominal pain or burning with urination. Patient was recently diagnosed with coronavirus on the (?) June. Review of systems is limited secondary to the patient's altered mental status. Timing/Duration: Other (Unknown time of onset) Severity: Moderate Allergies and Home Medications Allergies Coded Allergies: Penicillins (Verified Allergy, Mild, 07/22/13) latex (Verified Allergy, Mild, 07/22/13) Home Medications Acetaminophen 325 Mg Capsule, 650 MG PO Q6H PRN for PAIN-MILD (1-4), (Reported) Ascorbic Acid 1,000 Mg Tablet, 1,000 MG PO DAILY, (Reported) Aspirin 81 Mg Tablet.dr, 81 MG PO DAILY, (Reported) Cefdinir 300 Mg Capsule, 300 MG PO BID Prescribed by: DADA SANDOVAL on 04/12/20 1213 Clobetasol Propionate 118 Ml Shampoo, 1 APPLIC TOP Q72H, (Reported) Clobetasol Propionate 50 Ml Solution, 1 APPLIC TP BID, (Reported) APPLY TO THE SCALP Diphenhydramine HCl 25 Mg Capsule, 50 MG PO Q6H PRN for ABX REACTION, (Reported) Divalproex Sodium 500 Mg Tab.er.24h, 1,000 MG PO BID, (Reported) TAKES 2 (500MG) TABS Duloxetine HCl 60 Mg Capsule.dr, 60 MG PO DAILY, (Reported) Furosemide 40 Mg Tablet, 40 MG PO DAILY, (Reported) Hydrochlorothiazide 25 Mg Tablet, 25 MG PO DAILY, (Reported) Lactulose 10 Gm/15 Ml Solution, 30 ML PO DAILY PRN for CONSTIPATION-1ST LINE, (Reported) Levetiracetam 1,000 Mg Tablet, 1,000 MG PO BID, (Reported) Melatonin 3 Mg Tablet, 3 MG PO HS, (Reported) Meloxicam 15 Mg Tablet, 15 MG PO DAILY, (Reported) Oxybutynin Chloride 15 Mg Tab.er.24, 15 MG PO HS, (Reported) Pantoprazole Sodium 40 Mg Tablet.dr, 40 MG PO DAILY, (Reported) Polyethylene Glycol 3350 17 Gm Powd.pack, 17 GM PO DAILY PRN for CONSTIPATION- 2ND LINE, (Reported) Pramipexole Di-HCl 0.5 Mg Tablet, 0.5 MG PO TID, (Reported) Prednisolone Acetate 5 Ml Drops.susp, 1 DROP OU Q48H, (Reported) Prednisone 5 Mg Tablet, 5 MG PO DAILY, (Reported) Quetiapine Fumarate 50 Mg Tablet, 50 MG PO DAILY, (Reported) Quetiapine Fumarate 100 Mg Tablet, 100 MG PO HS, (Reported) Topiramate 50 Mg Tablet, 50 MG PO BID, (Reported) Vitamin E (Dl,Tocopheryl Acet) 400 Unit Capsule, 400 UNIT PO DAILY, (Reported) Patient Home Medication List Home Medication List Reviewed: Yes Review of Systems Review of Systems Constitutional: see HPI Past Urojfrl-Bjnfje-Khqsgk Hx Patient Social History Type Used: Cigarettes Former Smoker, Quit: Jul 05, 2013 2nd Hand Smoke Exposure: Yes Recent Hopitalizations: No Immunizations Up To Date Tetanus Booster (TDap): Unknown PED Vaccines UTD: No Date of Pneumonia Vaccine: Apr 07, 2018 Date of Influenza Vaccine: Feb 10, 2020 Seasonal Allergies Seasonal Allergies: No Past Medical History Surgeries: Yes Gallbladder, Lumpectomy Respiratory: Yes (BRONCHITIS) Chronic Bronchitis Currently Using CPAP: No Cardiac: Yes Chronic Edema/Swelling, Coronary Artery Disease, High Cholesterol, Hypertension, Rheumatic Fever Neurological: Yes (ENCEPHALITIS, restless leg syndrome) Concussion, Dementia, Seizure Disorder, Traumatic Brain Injury, Vertigo Reproductive Disorders: No Female Reproductive Disorders: Denies Sexually Transmitted Disease: No HIV/AIDS: No Genitourinary: Yes (CHRONIC RENAL INSUFFICIENCY; BLADDER CONTROL ISSUES?) Gastrointestinal: Yes ("STOMACH DISCOMFORT"--POST-CHOLECYSTECTOMY SYNDROME) Gastroesophageal Reflux, Chronic Constipation, Chronic Diarrhea, Gall Bladder Disease, Irritable Bowel Musculoskeletal: Yes Arthritis Endocrine: No HEENT: Yes (READING GLASSES) Loss of Vision: Bilateral Hearing Impairment: Denies Cancer: No Psychosocial: Yes Sleep Difficulties, Bipolar Integumentary: Yes Psoriasis Blood Disorders: No Adverse Reaction/Blood Tranf: No Family Medical History Cancer 03 FATHER (PANCREATIC CANCER) 09 BROTHER ( AT AGE 10) Family history: Cardiovascular disease 03 MOTHER Family history: Diabetes mellitus 03 MOTHER Heart disease 03 MOTHER No Pertinent Family Hx Physical Exam Vital Signs Vital Signs - First Documented 06/29/20 07:31 Temp 37.4 Pulse 73 Resp 20 B/P (MAP) 102/44 (63) Pulse Ox 97 O2 Delivery Room Air Capillary Refill : Height, Weight, BMI Height: 5'4.00" Weight: 166lbs. 0.0oz. 75.664112ei; 32.27 BMI Method:Stated General Appearance: No Apparent Distress, WD/WN Eyes: Bilateral Eye Normal Inspection, Bilateral Eye PERRL, Bilateral Eye EOMI, Bilateral Eye Abnormal EOM HEENT: PERRL/EOMI Neck: Full Range of Motion Respiratory: Lungs Clear, Normal Breath Sounds, No Accessory Muscle Use, No Respiratory Distress (Coarse wet sounding cough noted) Cardiovascular: Regular Rate, Rhythm Focused Exam Lactate Level 06/29/20 07:50: Lactic Acid Level 1.17 Lactic Acid Level Laboratory Tests Test 06/29/20 07:50 Lactic Acid Level 1.17 MMOL/L (0.50-2.00) Progress/Results/Core Measures Suspected Sepsis SIRS Temperature: Pulse: Respiratory Rate: Laboratory Tests 06/29/20 07:50: White Blood Count 3.8L Blood Pressure / Mean: 06/29/20 07:50: Lactic Acid Level 1.17 Laboratory Tests 06/29/20 07:50: Creatinine 1.59H, Platelet Count 105L, Total Bilirubin 0.5 Results/Orders Lab Results Laboratory Tests Test 06/29/20 07:50 Range/Units White Blood Count 3.8 L 4.3-11.0 10^3/uL Red Blood Count 3.59 L 3.80-5.11 10^6/uL Hemoglobin 11.5 11.5-16.0 g/dL Hematocrit 35 35-52 % Mean Corpuscular Volume 98 80-99 fL Mean Corpuscular Hemoglobin 32 25-34 pg Mean Corpuscular Hemoglobin Concent 33 32-36 g/dL Red Cell Distribution Width 13.9 10.0-14.5 % Platelet Count 105 L 130-400 10^3/uL Mean Platelet Volume 10.7 9.0-12.2 fL Immature Granulocyte % (Auto) 1 % Neutrophils (%) (Auto) 72 42-75 % Lymphocytes (%) (Auto) 14 12-44 % Monocytes (%) (Auto) 6 0-12 % Eosinophils (%) (Auto) 6 0-10 % Basophils (%) (Auto) 0 0-10 % Neutrophils # (Auto) 2.7 1.8-7.8 10^3/uL Lymphocytes # (Auto) 0.5 L 1.0-4.0 10^3/uL Monocytes # (Auto) 0.2 0.0-1.0 10^3/uL Eosinophils # (Auto) 0.2 0.0-0.3 10^3/uL Basophils # (Auto) 0.0 0.0-0.1 10^3/uL Immature Granulocyte # (Auto) 0.1 0.0-0.1 10^3/uL Urine Color YELLOW Urine Clarity CLEAR Urine pH 5.0 5-9 Urine Specific [place] 1.015 L 1.016-1.022 Urine Protein NEGATIVE NEGATIVE Urine Glucose (UA) NEGATIVE NEGATIVE Urine Ketones TRACE H NEGATIVE Urine Nitrite NEGATIVE NEGATIVE Urine Bilirubin NEGATIVE NEGATIVE Urine Urobilinogen 0.2 < = 1.0 MG/DL Urine Leukocyte Esterase NEGATIVE NEGATIVE Urine RBC (Auto) NEGATIVE NEGATIVE Urine RBC 0-2 /HPF Urine WBC RARE /HPF Urine Squamous Epithelial Cells RARE /HPF Urine Crystals PRESENT H /LPF Urine Amorphous Sediment MOD JOSE URATES H /LPF Urine Bacteria NEGATIVE /HPF Urine Casts PRESENT /LPF Urine Hyaline Casts RARE /LPF Urine Mucus NEGATIVE /LPF Urine Culture Indicated NO Sodium Level 140 135-145 MMOL/L Potassium Level 3.1 L 3.6-5.0 MMOL/L Chloride Level 102 98-107 MMOL/L Carbon Dioxide Level 25 21-32 MMOL/L Anion Gap 13 5-14 MMOL/L Blood Urea Nitrogen 24 H 7-18 MG/DL Creatinine 1.59 H 0.60-1.30 MG/DL Estimat Glomerular Filtration Rate 32 BUN/Creatinine Ratio 15 Glucose Level 93 70-105 MG/DL Lactic Acid Level 1.17 0.50-2.00 MMOL/L Calcium Level 8.0 L 8.5-10.1 MG/DL Corrected Calcium 8.7 8.5-10.1 MG/DL Total Bilirubin 0.5 0.1-1.0 MG/DL Aspartate Amino Transf (AST/SGOT) 86 H 5-34 U/L Alanine Aminotransferase (ALT/SGPT) 52 0-55 U/L Alkaline Phosphatase 95 40-136 U/L Total Protein 6.1 L 6.4-8.2 GM/DL Albumin 3.1 L 3.2-4.5 GM/DL Micro Results Microbiology 06/29/20 Influenza Types A,B Antigen (JUSTIN) - Final, Complete My Orders Orders - JANAE MUNOZ MD Blood Culture (06/29/20 07:48) Cbc With Automated Diff (06/29/20 07:48) Comprehensive Metabolic Panel (06/29/20 07:48) Ua Culture If Indicated (06/29/20 07:48) Lactic Acid Analyzer (06/29/20 07:48) Chest 1 View, Ap/Pa Only (06/29/20 07:48) Influenza A And B Antigens (06/29/20 07:48) Csf Crp High Sensitivity (06/29/20 07:48) Foot, Left, 3 Views (06/29/20 07:55) Acetaminophen Tablet (Tylenol Tablet) (06/29/20 08:15) Ns Iv 1000 Ml (Sodium Chloride 0.9%) (06/29/20 08:15) Medications Given in ED Current Medications Medications Dose Ordered Sig/Cory Route Start Time Stop Time Status Last Admin Dose Admin Acetaminophen 1,000 mg ONCE ONCE PO 06/29/20 08:15 06/29/20 08:16 DC 06/29/20 08:05 1,000 MG Vital Signs/I&O 06/29/20 07:31 Temp 37.4 Pulse 73 Resp 20 B/P (MAP) 102/44 (63) Pulse Ox 97 O2 Delivery Room Air Capillary Refill : Progress Note : Time: 09:49 Progress Note Patient seen and evaluated, 70-year-old female presents with chief complaint of altered mental status and fever. Patient is diagnosed with influenza B during this hospitalization. Her fever has come down she is much more alert she is oriented to who she is where she is and situation. Patient's labs have been reviewed and are within normal limits except for her flu test. Patient also had x-rays done to the left foot. She has no discrete pain over the foot. There is a questionable nondisplaced fracture of the base of the metaphysis of the second proximal metatarsal. With no tenderness there are will not place the patient in a postop shoe at this time. Recommend follow-up with her primary care doctor and orthopedics if necessary. Patient is agreeable to discharge to home. She will be discharged back to the nursing care center. All questions are sought and answered patient is stable for discharge Diagnostic Imaging Diagonstic Imaging: Xray Plain Films/CT/US/NM/MRI: chest Comments [facility] [place], [place] NAME: [facility] REC#: [id number] PT STATUS: REG ER : 1950 PHYSICIAN: JANAE MUNOZ MD ADMIT DATE: 06/29/20/ER Signed Date of Exam:06/29/20 CHEST 1 VIEW, AP/PA ONLY EXAMINATION: Chest radiograph, portable AP view. DATE: 06/29/2020 8:26 AM INDICATION: 70-year-old female, shortness of breath, fever. Cough. COMPARISON: April 11, 2020. FINDINGS: Heart size and mediastinal contours are unchanged. There has been removal of the right internal jugular central venous line. There is no identified pneumothorax. There is no large pleural effusion. There is no identified focal airspace consolidation. IMPRESSION: No identified acute cardiopulmonary abnormality. Dictated by: Dictated on workstation # [id number] Dict: 06/29/2034 Trans: 06/29/20850 [facility] [id number] Interpreted by: ELVIA FERNANDEZ MD Electronically signed by: ELVIA FERNANDEZ MD 06/29/2051 [facility] [place], [place] NAME: [facility] REC#: [id number] PT STATUS: REG ER : 1950 PHYSICIAN: JANAE MUNOZ MD ADMIT DATE: 06/29/20/ER Signed Date of Exam:06/29/20 FOOT, LEFT, 3 VIEWS EXAMINATION: Left foot radiographs, 3 views. COMPARISON: June 02, 2017. HISTORY: 70-year-old female, left foot pain and swelling and bruising. FINDINGS: There are chronic appearing deformities of the mid diaphysis of the second and third metatarsals. There is advanced arthritis at the first tarsometatarsal articulation. There is an oblique lucency at the level of the proximal metaphysis of the second proximal phalanx which may relate to a nondisplaced fracture. Recommend correlation with history and focal pain at this site. There is a normal variant os navicularis. There is degenerative type enthesopathy at the calcaneal insertion site of the Achilles tendon. There is a small calcaneal heel spur. There is dorsal soft tissue swelling at the level of the midfoot. IMPRESSION: 1. Probable nondisplaced fracture involving the proximal metaphysis of the second proximal phalanx. Recommend correlation for focal pain at this site and with patient history. 2. Chronic appearing fracture deformities of the mid diaphysis of the second and third metatarsals. 3. Advanced arthritis at the first tarsometatarsal articulation which is a significant interval change since June 02, 2017. Dictated by: Dictated on workstation # [id number] Dict: 06/29/20 0838 Trans: 06/29/20 0851 [facility] [id number] Interpreted by: ELVIA FERNANDEZ MD Electronically signed by: ELVIA FERNANDEZ MD 06/29/20 0851 Departure Impression Primary Impression: Altered mental status Qualified Codes: R41.0 - Disorientation, unspecified Additional Impression: Influenza B Disposition: 01 HOME, SELF-CARE Condition: Stable Departure-Patient Inst. Decision time for Depature: 09:51 Referrals: JOVON LING MD (PCP/Family) Primary Care Physician Patient Instructions: Flu Add. Discharge Instructions: Drink plenty of fluids to stay well-hydrated. Alternate Tylenol and ibuprofen as needed for fever every 4-6 hours. Resume all of your current medications. Return to the emergency department for any worsening symptoms, new concerns or other emergent symptoms Copy Copies To 1: JOVON LING MD, KATHRYN M MD Jun 29, 2020 07:55
[2020-06-29] MEDS ORDERED: NS IV 1000 ML 1,000 ML IV SCH (08:15)
[2020-06-29] MEDS ORDERED: ACETAMINOPHEN 500 MG TAB (TYLENOL) PO ONE (08:15)
[2020-06-29 08:17] LABS: BASOPHILS % (AUTO) 0 % (0-10); BILIRUBIN,URINE NEGATIVE (NEGATIVE); CLARITY,URINE CLEAR; COLOR,URINE YELLOW; GLUCOSE, URINE (UA) NEGATIVE (NEGATIVE); KETONES,URINE TRACE (NEGATIVE); LEUKOCYTE ESTERASE ,URINE NEGATIVE (NEGATIVE); MEAN CORPUSCULAR VOLUME 98 fL (80-99); NITRITE,URINE NEGATIVE (NEGATIVE); PROTEIN,URINE NEGATIVE (NEGATIVE)
[2020-06-29 08:19] LABS: EOSINOPHILS # (AUTO) 0.2 10^3/uL (0.0-0.3); EOSINOPHILS % (AUTO) 6 % (0-10); HEMATOCRIT 35 % (35-52); HEMOGLOBIN 11.5 g/dL (11.5-16.0); LYMPHOCYTES # (AUTO) 0.5 10^3/uL (1.0-4.0); LYMPHOCYTES % (AUTO) 14 % (12-44); MEAN CORPUSCULAR HEMOGLOBIN 32 pg (25-34); MEAN CORPUSCULAR HGB CONC 33 g/dL (32-36); MEAN PLATELET VOLUME 10.7 fL (9.0-12.2); MONOCYTES # (AUTO) 0.2 10^3/uL (0.0-1.0); MONOCYTES % (AUTO) 6 % (0-12); NEUTROPHILS # (AUTO) 2.7 10^3/uL (1.8-7.8); NEUTROPHILS % (AUTO) 72 % (42-75); PLATELET COUNT 105 10^3/uL (130-400); WHITE BLOOD COUNT 3.8 10^3/uL (4.3-11.0)
[2020-06-29 08:24] LABS: AMORPHOUS SEDIMENT,UR MOD AMOR URATES /LPF; BACTERIA,URINE NEGATIVE /HPF; HYALINE CASTS, URINE RARE /LPF; RBC,URINE 0-2 /HPF; SQUAMOUS EPITHELIAL CELL,UR RARE /HPF; WBC,URINE RARE /HPF
[2020-06-29 08:25] LABS: ALBUMIN 3.1 GM/DL (3.2-4.5); POTASSIUM 3.1 MMOL/L (3.6-5.0)
[2020-06-29 08:28] LABS: TOTAL PROTEIN 6.1 GM/DL (6.4-8.2)
[2020-06-29 08:29] LABS: BILIRUBIN,TOTAL 0.5 MG/DL (0.1-1.0)
[2020-06-29 08:31] LABS: CREATININE SERUM 1.59 MG/DL (0.60-1.30)
--- NOTE | 2020-06-29 08:36 | Diagnostic Imaging Report ---
EXAMINATION: Chest radiograph, portable AP view. DATE: 06/29/2020 8:26 AM INDICATION: 70-year-old female, shortness of breath, fever. Cough. COMPARISON: April 11, 2020. FINDINGS: Heart size and mediastinal contours are unchanged. There has been removal of the right internal jugular central venous line. There is no identified pneumothorax. There is no large pleural effusion. There is no identified focal airspace consolidation. IMPRESSION: No identified acute cardiopulmonary abnormality. Dictated by: Dictated on workstation # [id number]
--- NOTE | 2020-06-29 08:46 | Diagnostic Imaging Report ---
EXAMINATION: Left foot radiographs, 3 views. COMPARISON: June 02, 2017. HISTORY: 70-year-old female, left foot pain and swelling and bruising. FINDINGS: There are chronic appearing deformities of the mid diaphysis of the second and third metatarsals. There is advanced arthritis at the first tarsometatarsal articulation. There is an oblique lucency at the level of the proximal metaphysis of the second proximal phalanx which may relate to a nondisplaced fracture. Recommend correlation with history and focal pain at this site. There is a normal variant os navicularis. There is degenerative type enthesopathy at the calcaneal insertion site of the Achilles tendon. There is a small calcaneal heel spur. There is dorsal soft tissue swelling at the level of the midfoot. IMPRESSION: 1. Probable nondisplaced fracture involving the proximal metaphysis of the second proximal phalanx. Recommend correlation for focal pain at this site and with patient history. 2. Chronic appearing fracture deformities of the mid diaphysis of the second and third metatarsals. 3. Advanced arthritis at the first tarsometatarsal articulation which is a significant interval change since June 02, 2017. Dictated by: Dictated on workstation # [id number]
--- NOTE | 2020-06-29 10:50 | NUR ---
JIMMIE HUTSON ARRIVED AND PT WAS WHEELED TO [place] AND CARE WAS TRANSFERRED.
--- NOTE | 2020-06-29 11:10 | NUR ---
JIMMIE HUTSON WAS CALLED AND NOTIFIED THAT CELL PHONE WAS LEFT HERE AND WILL BE HERE FOR THEM TO EPIC AMBULATORY ANALYST.
== END 2020-06-29 10:50 | disposition home or self-care (01) ==
LOC: ER 07:29 → EDUNIT# 07:41 → ER 10:50
DX: R41.82 Altered mental status, unspecified (principal); J10.1 Influenza due to other identified influenza virus with other respiratory manifestations; F31.9 Bipolar disorder, unspecified; G40.909 Epilepsy, unspecified, not intractable, without status epilepticus; K21.9 Gastro-esophageal reflux disease without esophagitis; I10 Essential (primary) hypertension; Z88.0 Allergy status to penicillin; Z91.040 Latex allergy status; Z87.891 Personal history of nicotine dependence; Z87.820 Personal history of traumatic brain injury; Z83.3 Family history of diabetes mellitus; Z82.49 Family history of ischemic heart disease and other diseases of the circulatory system; Z80.0 Family history of malignant neoplasm of digestive organs; Z79.82 Long term (current) use of aspirin; Z79.52 Long term (current) use of systemic steroids
CPT/HCPCS: 36415; 71045; 73630; 80053; 81000; 83605; 85025; 87040; 87804

== ENCOUNTER 2020-06-30 08:22 | Inpatient (IN) | payer MEDICARE, BC, MEDICAID ==
[~2020-06-30] VITALS: Ht 165 cm; Wt 87.7 kg
[2020-06-30] MEDS ORDERED: LACTATED RINGERS 1,000 ML IV ONE (08:30)
[2020-06-30] MEDS ORDERED: LORazepam INJ 2 MG/ML (ATIVAN) VIAL ONE (08:35)
[2020-06-30 08:43] LABS: BASOPHILS % (AUTO) 0 % (0-10); HEMOGLOBIN 11.5 g/dL (11.5-16.0); NEUTROPHILS % (AUTO) 76 % (42-75)
[2020-06-30 08:45] LABS: EOSINOPHILS # (AUTO) 0.2 10^3/uL (0.0-0.3); EOSINOPHILS % (AUTO) 3 % (0-10); HEMATOCRIT 35 % (35-52); LYMPHOCYTES # (AUTO) 0.7 10^3/uL (1.0-4.0); LYMPHOCYTES % (AUTO) 11 % (12-44); MEAN CORPUSCULAR HEMOGLOBIN 32 pg (25-34); MEAN CORPUSCULAR HGB CONC 33 g/dL (32-36); MEAN CORPUSCULAR VOLUME 96 fL (80-99); MEAN PLATELET VOLUME 10.6 fL (9.0-12.2); MONOCYTES # (AUTO) 0.4 10^3/uL (0.0-1.0); MONOCYTES % (AUTO) 8 % (0-12); NEUTROPHILS # (AUTO) 4.4 10^3/uL (1.8-7.8); PLATELET COUNT 103 10^3/uL (130-400); WHITE BLOOD COUNT 5.8 10^3/uL (4.3-11.0)
[2020-06-30] MEDS ORDERED: HALOPERIDOL 5 MG/ML (HALDOL) VIAL ONE (08:48)
[2020-06-30 08:51] LABS: ALBUMIN 3.3 GM/DL (3.2-4.5); POTASSIUM 3.1 MMOL/L (3.6-5.0)
[2020-06-30 08:53] LABS: FIBRIN DEGRADATION PRODUCTS 2.42 UG/ML (0.00-0.49); INR 1.1 (0.8-1.4); PROTHROMBIN TIME PATIENT 14.1 SEC (12.2-14.7); TOTAL PROTEIN 6.5 GM/DL (6.4-8.2)
[2020-06-30 08:55] LABS: BILIRUBIN,TOTAL 0.5 MG/DL (0.1-1.0)
[2020-06-30 08:57] LABS: CREATININE SERUM 1.24 MG/DL (0.60-1.30)
[2020-06-30] MEDS ORDERED: HALOPERIDOL 5 MG/ML (HALDOL) VIAL IV ONE (09:00)
[2020-06-30] MEDS ORDERED: LORazepam INJ 2 MG/ML (ATIVAN) VIAL IVP ONE (09:00)
--- NOTE | 2020-06-30 09:03 | ED General ---
General Chief Complaint: Fever-Adult/Adol Stated Complaint: COVID + Nursing Triage Note: ARRIVED WITH [facility] FOR A TEMP OF 105 THERE. PT WAS GIVEN TYLENOL 1G PO BEFORE COMING TO THE ER. PT IS COVID POSITIVE AND FLU B POSITIVE. PT RESTELSS ET TRYING TO GET OUT OF BED. Nursing Sepsis Screen: No Definite Risk Source of Information: Patient Exam Limitations: No Limitations History of Present Illness Date Seen by Provider: Jun 30, 2020 Time Seen by Provider: 08:25 Initial Comments Here with report of elevated temperature at the long-term care facility. Patient apparently has both Covid and influenza B. Patient is moving about and very restless. Not answering questions well but does answer limited history. She does follow simple commands. Very poor historian and history limited second elaina to current medical condition and other underlying medical problems. Timing/Duration: 1-2 Days Severity: Moderate Associated Systoms: Fever/Chills Allergies and Home Medications Allergies Coded Allergies: Penicillins (Verified Allergy, Mild, 07/22/13) latex (Verified Allergy, Mild, 07/22/13) Home Medications Acetaminophen 325 Mg Capsule, 650 MG PO Q6H PRN for PAIN-MILD (1-4), (Reported) Ascorbic Acid 1,000 Mg Tablet, 1,000 MG PO DAILY, (Reported) Aspirin 81 Mg Tablet.dr, 81 MG PO DAILY, (Reported) Cefdinir 300 Mg Capsule, 300 MG PO BID Prescribed by: DADA SANDOVAL on 04/12/20 1213 Clobetasol Propionate 118 Ml Shampoo, 1 APPLIC TOP Q72H, (Reported) Clobetasol Propionate 50 Ml Solution, 1 APPLIC TP BID, (Reported) APPLY TO THE SCALP Diphenhydramine HCl 25 Mg Capsule, 50 MG PO Q6H PRN for ABX REACTION, (Reported) Divalproex Sodium 500 Mg Tab.er.24h, 1,000 MG PO BID, (Reported) TAKES 2 (500MG) TABS Duloxetine HCl 60 Mg Capsule.dr, 60 MG PO DAILY, (Reported) Furosemide 40 Mg Tablet, 40 MG PO DAILY, (Reported) Hydrochlorothiazide 25 Mg Tablet, 25 MG PO DAILY, (Reported) Lactulose 10 Gm/15 Ml Solution, 30 ML PO DAILY PRN for CONSTIPATION-1ST LINE, (Reported) Levetiracetam 1,000 Mg Tablet, 1,000 MG PO BID, (Reported) Melatonin 3 Mg Tablet, 3 MG PO HS, (Reported) Meloxicam 15 Mg Tablet, 15 MG PO DAILY, (Reported) Oxybutynin Chloride 15 Mg Tab.er.24, 15 MG PO HS, (Reported) Pantoprazole Sodium 40 Mg Tablet.dr, 40 MG PO DAILY, (Reported) Polyethylene Glycol 3350 17 Gm Powd.pack, 17 GM PO DAILY PRN for CONSTIPATION- 2ND LINE, (Reported) Pramipexole Di-HCl 0.5 Mg Tablet, 0.5 MG PO TID, (Reported) Prednisolone Acetate 5 Ml Drops.susp, 1 DROP OU Q48H, (Reported) Prednisone 5 Mg Tablet, 5 MG PO DAILY, (Reported) Quetiapine Fumarate 50 Mg Tablet, 50 MG PO DAILY, (Reported) Quetiapine Fumarate 100 Mg Tablet, 100 MG PO HS, (Reported) Topiramate 50 Mg Tablet, 50 MG PO BID, (Reported) Vitamin E (Dl,Tocopheryl Acet) 400 Unit Capsule, 400 UNIT PO DAILY, (Reported) Patient Home Medication List Home Medication List Reviewed: Yes Review of Systems Review of Systems Constitutional: see HPI, chills, fever Respiratory: cough Psychiatric/Neurological: Other (Confusion) Unable to complete review of systems due to altered mental status Past Vihmncr-Yhjtak-Mqjprp Hx Past Med/Social Hx: Reviewed Nursing Past Med/Soc Hx Patient Social History Smoking Status: Former Smoker Type Used: Cigarettes Former Smoker, Quit: Jul 05, 2013 2nd Hand Smoke Exposure: Yes Recent Foreign Travel: No Contact w/Someone Who Travel: No Recent Infectious Disease Expo: No Recent Hopitalizations: No Immunizations Up To Date Tetanus Booster (TDap): Unknown PED Vaccines UTD: No Date of Pneumonia Vaccine: Apr 07, 2018 Date of Influenza Vaccine: Feb 10, 2020 Seasonal Allergies Seasonal Allergies: No Past Medical History Surgeries: Yes Gallbladder, Lumpectomy Respiratory: Yes (BRONCHITIS) Chronic Bronchitis Currently Using CPAP: No Cardiac: Yes Chronic Edema/Swelling, Coronary Artery Disease, High Cholesterol, Hypertension, Rheumatic Fever Neurological: Yes (ENCEPHALITIS, restless leg syndrome) Concussion, Dementia, Seizure Disorder, Traumatic Brain Injury, Vertigo Reproductive Disorders: No Female Reproductive Disorders: Denies Sexually Transmitted Disease: No HIV/AIDS: No Genitourinary: Yes (CHRONIC RENAL INSUFFICIENCY; BLADDER CONTROL ISSUES?) Gastrointestinal: Yes ("STOMACH DISCOMFORT"--POST-CHOLECYSTECTOMY SYNDROME) Gastroesophageal Reflux, Chronic Constipation, Chronic Diarrhea, Gall Bladder Disease, Irritable Bowel Musculoskeletal: Yes Arthritis Endocrine: No HEENT: Yes (READING GLASSES) Loss of Vision: Bilateral Hearing Impairment: Denies Cancer: No Psychosocial: Yes Sleep Difficulties, Bipolar Integumentary: Yes Psoriasis Blood Disorders: No Adverse Reaction/Blood Tranf: No Family Medical History Reviewed Nursing Family Hx Cancer 03 FATHER (PANCREATIC CANCER) 09 BROTHER ( AT AGE 10) Family history: Cardiovascular disease 03 MOTHER Family history: Diabetes mellitus 03 MOTHER Heart disease 03 MOTHER No Pertinent Family Hx Physical Exam-Suspected Sepsis Physical Exam Vital Signs Vital Signs - First Documented 06/30/20 08:22 Temp 38.8 Pulse 96 Resp 18 B/P (MAP) 108/48 (68) Pulse Ox 97 O2 Delivery Nasal Cannula O2 Flow Rate 2.00 Capillary Refill : Less Than 3 Seconds Blood Pressure Mean: 68 Height, Weight, BMI Height: 5'4.00" Weight: 166lbs. 0.0oz. 75.515567sq; 31.00 BMI Method:Stated General Appearance: No Apparent Distress, WD/WN HEENT: PERRL/EOMI, Other (Dry mucous membranes) Neck: Non Tender, Supple Respiratory: Crackles (Bilateral bases), Decreased Breath Sounds, Other (Coarse cough) Cardiovascular: No Murmur, Tachycardia Gastrointestinal: Non Tender, Soft Back: Normal Inspection, No CVA Tenderness, No Vertebral Tenderness Extremity: Normal Range of Motion, Other (Moving all extremities. Bruising noted to the left foot distal portion and toes. Not significantly tender on palpation but does state that the foot hurts some.) Neurologic/Psychiatric: Disoriented (Oriented to self but confused conversation to situation and time. ), Other (Patient is moving all extremities and moving in the bed. She seems quite uncomfortable and cannot seem to stay still. She is redirectable but quite confused.) Skin: warm/dry, ecchymosis (Left foot) Focused Exam Lactate Level 06/30/20 08:30: Lactic Acid Level 1.29 Lactic Acid Level Laboratory Tests Test 06/30/20 08:30 Lactic Acid Level 1.29 MMOL/L (0.50-2.00) Progress/Results/Core Measures Suspected Sepsis Recent Fever Within 48 Hours: No Infection Criteria Present: None New/Unexplained Altered Menta: No Sepsis Screen: No Definite Risk SIRS Temperature: Pulse: 96 Respiratory Rate: 18 Laboratory Tests 06/30/20 08:30: White Blood Count 5.8 Blood Pressure 108 /48 Mean: 68 06/30/20 08:30: Lactic Acid Level 1.29 Laboratory Tests 06/30/20 08:30: Creatinine 1.24, INR Comment 1.1, Platelet Count 103L, Total Bilirubin 0.5 Results/Orders Lab Results Laboratory Tests Test 06/30/20 08:30 06/30/20 11:00 Range/Units White Blood Count 5.8 4.3-11.0 10^3/uL Red Blood Count 3.64 L 3.80-5.11 10^6/uL Hemoglobin 11.5 11.5-16.0 g/dL Hematocrit 35 35-52 % Mean Corpuscular Volume 96 80-99 fL Mean Corpuscular Hemoglobin 32 25-34 pg Mean Corpuscular Hemoglobin Concent 33 32-36 g/dL Red Cell Distribution Width 14.0 10.0-14.5 % Platelet Count 103 L 130-400 10^3/uL Mean Platelet Volume 10.6 9.0-12.2 fL Immature Granulocyte % (Auto) 2 % Neutrophils (%) (Auto) 76 H 42-75 % Lymphocytes (%) (Auto) 11 L 12-44 % Monocytes (%) (Auto) 8 0-12 % Eosinophils (%) (Auto) 3 0-10 % Basophils (%) (Auto) 0 0-10 % Neutrophils # (Auto) 4.4 1.8-7.8 10^3/uL Lymphocytes # (Auto) 0.7 L 1.0-4.0 10^3/uL Monocytes # (Auto) 0.4 0.0-1.0 10^3/uL Eosinophils # (Auto) 0.2 0.0-0.3 10^3/uL Basophils # (Auto) 0.0 0.0-0.1 10^3/uL Immature Granulocyte # (Auto) 0.1 0.0-0.1 10^3/uL Prothrombin Time 14.1 12.2-14.7 SEC INR Comment 1.1 0.8-1.4 Activated Partial Thromboplast Time 32 24-35 SEC D-Dimer 2.42 H 0.00-0.49 UG/ML Sodium Level 140 135-145 MMOL/L Potassium Level 3.1 L 3.6-5.0 MMOL/L Chloride Level 105 98-107 MMOL/L Carbon Dioxide Level 21 21-32 MMOL/L Anion Gap 14 5-14 MMOL/L Blood Urea Nitrogen 17 7-18 MG/DL Creatinine 1.24 0.60-1.30 MG/DL Estimat Glomerular Filtration Rate 43 BUN/Creatinine Ratio 14 Glucose Level 87 70-105 MG/DL Lactic Acid Level 1.29 0.50-2.00 MMOL/L Calcium Level 8.0 L 8.5-10.1 MG/DL Corrected Calcium 8.6 8.5-10.1 MG/DL Total Bilirubin 0.5 0.1-1.0 MG/DL Aspartate Amino Transf (AST/SGOT) 74 H 5-34 U/L Alanine Aminotransferase (ALT/SGPT) 45 0-55 U/L Alkaline Phosphatase 97 40-136 U/L C-Reactive Protein High Sensitivity 12.42 H 0.00-0.50 MG/DL Total Protein 6.5 6.4-8.2 GM/DL Albumin 3.3 3.2-4.5 GM/DL Procalcitonin 0.16 H <0.10 NG/ML Urine Color YELLOW Urine Clarity CLEAR Urine pH 7.5 5-9 Urine Specific [place] 1.015 L 1.016-1.022 Urine Protein NEGATIVE NEGATIVE Urine Glucose (UA) NEGATIVE NEGATIVE Urine Ketones NEGATIVE NEGATIVE Urine Nitrite NEGATIVE NEGATIVE Urine Bilirubin NEGATIVE NEGATIVE Urine Urobilinogen 0.2 < = 1.0 MG/DL Urine Leukocyte Esterase NEGATIVE NEGATIVE Urine RBC (Auto) NEGATIVE NEGATIVE Urine RBC NONE /HPF Urine WBC NONE /HPF Urine Crystals NONE /LPF Urine Bacteria NEGATIVE /HPF Urine Casts NONE /LPF Urine Mucus NEGATIVE /LPF Urine Culture Indicated NO My Orders Orders - THERESE FINN MD Cbc With Automated Diff (06/30/20 08:25) Comprehensive Metabolic Panel (06/30/20 08:25) Blood Culture (06/30/20 08:25) Sputum Culture (06/30/20 08:25) Urinalysis (06/30/20 08:25) Urine Culture (06/30/20 08:25) Protime With Inr (06/30/20 08:25) Partial Thromboplastin Time (06/30/20 08:25) Chest 1 View, Ap/Pa Only (06/30/20 08:25) Ed Iv/Invasive Line Start (06/30/20 08:25) Vital Signs Adult Sepsis Patie Q15M (06/30/20 08:25) O2 (06/30/20 08:25) Remove Rings In Anticipation O (06/30/20 08:25) Lactic Acid Analyzer (06/30/20 08:25) Fibrin Degradation Products (06/30/20 08:25) Procalcitonin (Pct) (06/30/20 08:25) Hs C Reactive Protein (06/30/20 08:25) Ed Iv/Invasive Line Start (06/30/20 08:26) Lactated Ringers (Lr 1000 Ml Iv Solution (06/30/20 08:30) Lorazepam Injection (Ativan Injection) (06/30/20 08:35) Haloperidol Injection (Haldol Injectio (06/30/20 08:48) Haloperidol Injection (Haldol Injectio (06/30/20 09:00) Lorazepam Injection (Ativan Injection) (06/30/20 09:00) Catheter(Urinary) Insert & Ass 03,15 (06/30/20 10:28) Lactated Ringers (Lr 1000 Ml Iv Solution (06/30/20 10:28) Convalescent Plasma (06/30/20 12:00) Dexamethasone Injection (Decadron Inje (06/30/20 12:00) Abo Rh Type (06/30/20 12:00) Oseltamivir 30 Mg Capsule (Tamiflu 30 Mg (06/30/20 12:15) Medications Given in ED Current Medications Medications Dose Ordered Sig/Cory Route Start Time Stop Time Status Last Admin Dose Admin Haloperidol Lactate 5 mg ONCE ONCE IV 06/30/20 09:00 06/30/20 09:01 DC 06/30/20 08:52 5 MG Lactated Ringer's 1,000 ml @ 0 mls/hr Q0M ONCE IV 06/30/20 08:30 06/30/20 08:31 DC 06/30/20 08:44 1,000 MLS/HR Lorazepam 1 mg ONCE ONCE IVP 06/30/20 09:00 06/30/20 09:01 DC 06/30/20 08:45 1 MG Vital Signs/I&O 06/30/20 06/30/20 08:22 08:43 Temp 38.8 Pulse 96 Resp 18 B/P (MAP) 108/48 (68) Pulse Ox 97 O2 Delivery Nasal Cannula Nasal Cannula O2 Flow Rate 2.00 2.00 Capillary Refill : Less Than 3 Seconds Blood Pressure Mean: 68 Progress Note : Progress Note Seen and evaluated. IV by EMS. Labs, blood cultures, lactic acid, chest x-ray, UA ordered. Patient is quite agitated. Ativan 1 mg IV given. This did not stop the agitation. Haldol 5 mg IV given. She seems a little bit more comfortable now. We will continue to monitor her. Pending labs. I did review previous visit yesterday. She was found to have influenza B at that point. Covid test is apparently from the and she was positive. Left foot was evaluated yesterday and there was a nondisplaced fracture of the second proximal metatarsal. She is post to be in postop shoe which she is not currently. We will try to reapply that as her condition improves. LR 1 L bolus. She was given Tylenol at her facility prior to arrival. Monitor patient. 1140: Patient noted to have elevated lactic acid repeat fluids given. Patient to be admitted to the ICU. 1205: I did discuss the case at length with patient's DPOA, Addy Stockton at [phone]. We did discuss therapies including convalescent plasma and remdesivir. I did discuss risk and benefits of both and he has excepted treatment of both after discussion. I did discuss the case with Dr. Guerrero. We will initiate Decadron 6 mg IV now and continue at p.o. daily. We will also initiate renal dose Tamiflu at 30 mg p.o. twice daily x5 days. Convalescent plasma was ordered and remdesivir was ordered. Patient's DPOA would appreciate being contacted about any change in status or further plans as he is the person that makes decisions for her. Admit, inpatient status to the ICU. DPOA agrees with plan. Diagnostic Imaging Diagonstic Imaging: Xray Plain Films/CT/US/NM/MRI: chest Comments [facility]. [place], [place] NAME: [facility] REC#: [id number] PT STATUS: REG ER : 1950 PHYSICIAN: THERESE FINN MD ADMIT DATE: 06/30/20/ER Signed Date of Exam:06/30/20 CHEST 1 VIEW, AP/PA ONLY INDICATION: Fever and altered mental status with cough. Comparison made with prior examination from 06/29/2020 FINDINGS: There is cardiomegaly. There is some venous congestion. There are patchy bilateral pulmonary infiltrates in the right lower lobe and left midlung. There is no pleural effusion or pneumothorax. The mediastinum is unremarkable. IMPRESSION: Cardiomegaly and some venous congestion with patchy bilateral pulmonary infiltrates. Early pneumonia cannot be excluded. Recommend clinical correlation. Dictated by: Dictated on workstation # [id number] Dict: 06/30/20921 Trans: 06/30/20926 [facility] [id number] Interpreted by: PATIENCE WALTERS MD Electronically signed by: PATIENCE WALTERS MD 06/30/20926 Departure Communication (Admissions) Time/Spoke to Admitting Phy: 12:05 Impression Primary Impression: Pneumonia due to COVID-19 virus Additional Impressions: Influenza B Altered mental status Qualified Codes: R41.0 - Disorientation, unspecified Disposition: ADMITTED INPATIENT Condition: Critical Admissions Decision to Admit Reason: Admit from ER (General) Decision to Admit/Date: Jun 30, 2020 Time/Decision to Admit Time: 11:39 Departure-Patient Inst. Referrals: ADDY LING MD (PCP/Family) Primary Care Physician THERESE FINN MD Jun 30, 2020 09:03
--- NOTE | 2020-06-30 09:26 | Diagnostic Imaging Report ---
INDICATION: Fever and altered mental status with cough. Comparison made with prior examination from 06/29/2020 FINDINGS: There is cardiomegaly. There is some venous congestion. There are patchy bilateral pulmonary infiltrates in the right lower lobe and left midlung. There is no pleural effusion or pneumothorax. The mediastinum is unremarkable. IMPRESSION: Cardiomegaly and some venous congestion with patchy bilateral pulmonary infiltrates. Early pneumonia cannot be excluded. Recommend clinical correlation. Dictated by: Dictated on workstation # [id number]
[2020-06-30] MEDS ORDERED: LACTATED RINGERS 1,000 ML IV STA (10:28)
[2020-06-30 11:14] LABS: BILIRUBIN,URINE NEGATIVE (NEGATIVE); CLARITY,URINE CLEAR; COLOR,URINE YELLOW; GLUCOSE, URINE (UA) NEGATIVE (NEGATIVE); KETONES,URINE NEGATIVE (NEGATIVE); LEUKOCYTE ESTERASE ,URINE NEGATIVE (NEGATIVE); NITRITE,URINE NEGATIVE (NEGATIVE); PH,URINE 7.5 (5-9); PROTEIN,URINE NEGATIVE (NEGATIVE)
[2020-06-30 11:27] LABS: BACTERIA,URINE NEGATIVE /HPF
[2020-06-30] MEDS ORDERED: OSELTAMIVIR 30 MG (TAMIFLU) CAPSULE PO ONE (12:15)
[2020-06-30] MEDS ORDERED: REMDESIVIR 100 MG/NS 250 ML IVPB IV SCH ×2 (15:00)
[2020-06-30] MEDS ORDERED: REMDESIVIR 200 MG/NS 250 ML IVPB IV NR ×2 (15:00)
[2020-06-30] MEDS ORDERED: NS IV 1000 ML 1,000 ML IV SCH (15:15)
[2020-06-30] MEDS ORDERED: RT-ALBUTEROL INHALER HFA (VENTOLIN HFA) 18 GM IH PRN (17:30)
[2020-06-30] MEDS: RT-ALBUTEROL INHALER HFA (VENTOLIN HFA) 18 GM IH SCH ×2 (19:30→23:41)
[2020-06-30] MEDS: OSELTAMIVIR 30 MG (TAMIFLU) CAPSULE PO SCH (20:18)
[2020-06-30] MEDS: prednisoLONE 1% OPTH (PRED FORTE) 5 ML BTL OU SCH (22:20)
--- NOTE | 2020-06-30 23:02 | History & Physical-Hospitalist ---
History of Present Illness HPI/Chief Complaint Marcela Gibbs is a 70 year old female who presented with fever. She was diagnosed with COVID almost ten days ago. She was diagnosed with Influenza B yesterday. She had a fever at [facility]. She has been confused and altered. She required Ativan and Haldol due to agitation. Upon my examination, she is slightly agitated but is easily redirectable. She is oriented to person and date, but thinks she is still at [facility]. Source: RN/MD Exam Limitations: clinical condition Date Seen 06/30/20 Time Seen by a Provider: 15:45 Attending Physician Dwayne Ross MD PCP Addy Farr MD Referring Physician Date of Admission Jun 30, 2020 at 11:39 Home Medications & Allergies Home Medications Reviewed patient Home Medication Reconciliation performed by pharmacy medication reconciliations lens coating technician and/or nursing. Patients Allergies have been reviewed. Allergies Allergies Coded Allergies Penicillins (Verified Allergy, Mild, 07/22/13) latex (Verified Allergy, Mild, 07/22/13) Past Fqqrvue-Nzbgpf-Zzuxsl Hx Past Med/Social Hx: Reviewed Nursing Past Med/Soc Hx Patient Social History Smoking Status: Former Smoker Former Smoker, Quit: Jul 05, 2013 Type Used: Cigarettes 2nd Hand Smoke Exposure: Yes Recent Foreign Travel: No Contact w/other who traveled: No Recent Hopitalizations: No Recent Infectious Disease Expo: No Immunizations Up To Date Tetanus Booster (TDap): Unknown Pediatric: No Date of Pneumonia Vaccine: Apr 07, 2018 Date of Influenza Vaccine: Feb 10, 2020 Seasonal Allergies Seasonal Allergies: No Past Medical History Surgeries: Gallbladder, Lumpectomy Respiratory: Chronic Bronchitis Currently Using CPAP: No Cardiac: Chronic Edema/Swelling, Coronary Artery Disease, High Cholesterol, Hypertension, Rheumatic Fever Neurological: Concussion, Dementia, Seizure Disorder, Traumatic Brain Injury, Vertigo Reproductive: No Sexually Transmitted Disease: No HIV/AIDS: No Female Reproductive Disorders: Denies Gastrointestinal: Gastroesophageal Reflux, Chronic Constipation, Chronic Diarrhea, Gall Bladder Disease, Irritable Bowel Musculoskeletal: Arthritis Loss of Vision: Bilateral Hearing Impairment: Denies Psychosocial: Sleep Difficulties, Bipolar Skin/Integumentary: Psoriasis History of Blood Disorders: No Adverse Reaction to Blood Mckoy: No Family History Reviewed Nursing Family Hx Cancer 03 FATHER (PANCREATIC CANCER) 09 BROTHER ( AT AGE 10) Family history: Cardiovascular disease 03 MOTHER Family history: Diabetes mellitus 03 MOTHER Heart disease 03 MOTHER No Pertinent Family Hx Review of Systems ROS-Unable to Obtain: uncooperative Constitutional: see HPI Physical Exam Physical Exam Vital Signs Vital Signs - First Documented 06/30/20 08:22 Temp 38.8 Pulse 96 Resp 18 B/P (MAP) 108/48 (68) Pulse Ox 97 O2 Delivery Nasal Cannula O2 Flow Rate 2.00 Capillary Refill : Less Than 3 SecondsLess Than 3 Seconds Height, Weight, BMI Height: 5'4.00" Weight: 166lbs. 0.0oz. 75.084810gz; 31.00 BMI Method:Stated General Appearance: No Apparent Distress, Anxious (agitated and restless), Obese HEENT: PERRL/EOMI, Pharynx Normal Neck: Normal Inspection, Supple Respiratory: Lungs Clear, Normal Breath Sounds, No Respiratory Distress Cardiovascular: Regular Rate, Rhythm, No Edema, No Murmur Gastrointestinal: Normal Bowel Sounds, Non Tender, Soft Extremity: Normal Inspection, Non Tender, No Pedal Edema Neurologic/Psychiatric: Alert, No Motor/Sensory Deficits, Disoriented Skin: Normal Color, Warm/Dry Results Results/Procedures Labs Laboratory Tests 06/30/20 08:30 Patient resulted labs reviewed. Imaging: Reviewed Imaging Report Assessment/Plan Admission Diagnosis Acute respiratory failure due to COVID-19 and Influenza B Admission Status: Inpatient Order (span 2 midnights) Reason for Inpatient Admission: Respiratory failure requiring oxygen Assessment and Plan Pneumonia due to COVID-19 and Influenza B Elevated d-dimer Acute kidney injury COVID positive 06/21 Influenza B positive 06/29 Chest xray with patchy bilateral infiltrates Started on Decadron Started on Remdesivir Convalescent plasma ordered Started on Tamiflu Procalcitonin normal, antibiotics not started D-dimer elevated, CT not performed due to lack of hypoxia Gentle IV fluids Seizure disorder Continue AEDs Obesity Clinically signifcant, no acute management needs DVT prophylaxis: Lovenox Diagnosis/Problems Diagnosis/Problems (1) Pneumonia due to COVID-19 virus Status: Acute (2) Influenza B Status: Acute (3) Acute kidney injury superimposed on chronic kidney disease Status: Acute (4) Seizure disorder Status: Chronic (5) Obesity Status: Chronic Clinical Quality Measures DVT/VTE Risk/Contraindication: Risk Factor Score Per Nursin RFS Level Per Nursing on Admit: 4+=Very High DWAYNE ROSS MD Jun 30, 2020 23:02
[2020-06-30] MEDS: ENOXAPARIN 40 MG/0.4 ML (LOVENOX) SYR SC SCH (23:39)
[2020-07-01] MEDS: RT-ALBUTEROL INHALER HFA (VENTOLIN HFA) 18 GM IH SCH ×6 (03:22→21:42)
[2020-07-01 03:35] LABS: BASOPHILS % (AUTO) 0 % (0-10); EOSINOPHILS % (AUTO) 0 % (0-10); HEMOGLOBIN 12.4 g/dL (11.5-16.0)
[2020-07-01 03:36] LABS: HEMATOCRIT 39 % (35-52); LYMPHOCYTES # (AUTO) 0.7 10^3/uL (1.0-4.0); LYMPHOCYTES % (AUTO) 9 % (12-44); MEAN CORPUSCULAR HEMOGLOBIN 32 pg (25-34); MEAN CORPUSCULAR HGB CONC 32 g/dL (32-36); MEAN CORPUSCULAR VOLUME 100 fL (80-99); MONOCYTES # (AUTO) 0.4 10^3/uL (0.0-1.0); MONOCYTES % (AUTO) 5 % (0-12); NEUTROPHILS # (AUTO) 6.2 10^3/uL (1.8-7.8); NEUTROPHILS % (AUTO) 82 % (42-75); PLATELET COUNT 94 10^3/uL (130-400); WHITE BLOOD COUNT 7.6 10^3/uL (4.3-11.0)
[2020-07-01 03:59] LABS: CALCIUM 8.1 MG/DL (8.5-10.1); CREATININE SERUM 1.16 MG/DL (0.60-1.30); PHOSPHORUS 1.7 MG/DL (2.3-4.7); POTASSIUM 3.2 MMOL/L (3.6-5.0)
--- NOTE | 2020-07-01 04:06 | Pulmonary Consultation ---
History of Present Illness History of Present Illness Date Seen by Provider: Jul 01, 2020 Time Seen by Provider: 04:00 Date of Admission Allergies and Home Medications Allergies Coded Allergies: Penicillins (Verified Allergy, Mild, 07/22/13) latex (Verified Allergy, Mild, 07/22/13) Home Medications Acetaminophen 325 Mg Capsule, 650 MG PO Q6H PRN for PAIN-MILD (1-4), (Reported) Ascorbic Acid 1,000 Mg Tablet, 1,000 MG PO DAILY, (Reported) Aspirin 81 Mg Tablet.dr, 81 MG PO DAILY, (Reported) Cefdinir 300 Mg Capsule, 300 MG PO BID Prescribed by: DADA SANDOVAL on 04/12/20 1213 Clobetasol Propionate 118 Ml Shampoo, 1 APPLIC TOP Q72H, (Reported) Clobetasol Propionate 50 Ml Solution, 1 APPLIC TP BID, (Reported) APPLY TO THE SCALP Diphenhydramine HCl 25 Mg Capsule, 50 MG PO Q6H PRN for ABX REACTION, (Reported) Divalproex Sodium 500 Mg Tab.er.24h, 1,000 MG PO BID, (Reported) TAKES 2 (500MG) TABS Duloxetine HCl 60 Mg Capsule.dr, 60 MG PO DAILY, (Reported) Furosemide 40 Mg Tablet, 80 MG PO DAILY, (Reported) Lactulose 10 Gm/15 Ml Solution, 30 ML PO DAILY PRN for CONSTIPATION-1ST LINE, (Reported) Levetiracetam 1,000 Mg Tablet, 1,000 MG PO BID, (Reported) Melatonin 3 Mg Tablet, 3 MG PO HS, (Reported) Meloxicam 15 Mg Tablet, 15 MG PO DAILY, (Reported) Oxybutynin Chloride 15 Mg Tab.er.24, 15 MG PO HS, (Reported) Pantoprazole Sodium 40 Mg Tablet.dr, 40 MG PO DAILY, (Reported) Polyethylene Glycol 3350 17 Gm Powd.pack, 17 GM PO DAILY PRN for CONSTIPATION- 2ND LINE, (Reported) Pramipexole Di-HCl 0.5 Mg Tablet, 0.5 MG PO TID, (Reported) Prednisolone Acetate 5 Ml Drops.susp, 1 DROP OU Q48H, (Reported) Prednisone 5 Mg Tablet, 5 MG PO DAILY, (Reported) Quetiapine Fumarate 50 Mg Tablet, 50 MG PO DAILY, (Reported) Quetiapine Fumarate 100 Mg Tablet, 150 MG PO HS, (Reported) Topiramate 50 Mg Tablet, 50 MG PO BID, (Reported) Vitamin E (Dl,Tocopheryl Acet) 400 Unit Capsule, 400 UNIT PO DAILY, (Reported) Past Cpclbsc-Vfmpel-Dtdtay Hx Past Med/Social Hx: Reviewed Nursing Past Med/Soc Hx Patient Social History Smoking Status: Former Smoker Type Used: Cigarettes Former Smoker, Quit: Jul 05, 2013 2nd Hand Smoke Exposure: Yes Recent Foreign Travel: No Contact w/Someone Who Travel: No Recent Infectious Disease Expo: No Recent Hopitalizations: No Immunizations Up To Date Tetanus Booster (TDap): Unknown PED Vaccines UTD: No Date of Pneumonia Vaccine: Apr 07, 2018 Date of Influenza Vaccine: Feb 10, 2020 Seasonal Allergies Seasonal Allergies: No Past Medical History Surgeries: Yes Gallbladder, Lumpectomy Respiratory: Yes (BRONCHITIS) Chronic Bronchitis Currently Using CPAP: No Cardiac: Yes Chronic Edema/Swelling, Coronary Artery Disease, High Cholesterol, Hypertension, Rheumatic Fever Neurological: Yes (ENCEPHALITIS, restless leg syndrome) Concussion, Dementia, Seizure Disorder, Traumatic Brain Injury, Vertigo Reproductive Disorders: No Female Reproductive Disorders: Denies Sexually Transmitted Disease: No HIV/AIDS: No Genitourinary: Yes (CHRONIC RENAL INSUFFICIENCY; BLADDER CONTROL ISSUES?) Gastrointestinal: Yes ("STOMACH DISCOMFORT"--POST-CHOLECYSTECTOMY SYNDROME) Gastroesophageal Reflux, Chronic Constipation, Chronic Diarrhea, Gall Bladder Disease, Irritable Bowel Musculoskeletal: Yes Arthritis Endocrine: No HEENT: Yes (READING GLASSES) Loss of Vision: Bilateral Hearing Impairment: Denies Cancer: No Psychosocial: Yes Sleep Difficulties, Bipolar Integumentary: Yes Psoriasis Blood Disorders: No Adverse Reaction/Blood Tranf: No Family Medical History Reviewed Nursing Family Hx Cancer 03 FATHER (PANCREATIC CANCER) 09 BROTHER ( AT AGE 10) Family history: Cardiovascular disease 03 MOTHER Family history: Diabetes mellitus 03 MOTHER Heart disease 03 MOTHER No Pertinent Family Hx Review of Systems Time Seen by Provider: 04:00 Sepsis Event Evaluation Height, Weight, BMI Height: 5'4.00" Weight: 166lbs. 0.0oz. 75.663556uq; 31.00 BMI Method:Stated Exam Exam Vital Signs Date Time Temp Pulse Resp B/P (MAP) Pulse Ox O2 Delivery O2 Flow Rate FiO2 07/01/20 03:22 97 Room Air 06/30/20 23:42 100 Nasal Cannula 2.00 06/30/20 23:00 71 23 93/42 (59) 96 Nasal Cannula 2.00 06/30/20 22:00 68 15 121/66 (84) 98 Nasal Cannula 2.00 06/30/20 21:01 Nasal Cannula 2.00 06/30/20 21:00 62 20 126/58 (80) 98 Nasal Cannula 2.00 06/30/20 20:25 54 16 108/54 (72) 98 Nasal Cannula 2.00 06/30/20 20:00 49 17 108/54 (72) 94 Nasal Cannula 2.00 06/30/20 19:51 35.8 06/30/20 19:00 56 06/30/20 19:00 54 25 124/69 (87) 98 Nasal Cannula 2.00 06/30/20 16:00 57 21 121/62 (81) 96 Nasal Cannula 2.00 06/30/20 15:32 36.1 06/30/20 15:00 65 13 110/63 (79) 96 Nasal Cannula 2.00 06/30/20 14:35 98 Nasal Cannula 2.00 06/30/20 14:00 58 132 13/61 (45) 61 Nasal Cannula 2.00 06/30/20 13:44 70 16 144/63 98 Nasal Cannula 2.00 06/30/20 08:43 Nasal Cannula 2.00 06/30/20 08:22 38.8 96 18 108/48 (68) 97 Nasal Cannula 2.00 I & O 07/01/20 07:00 Intake Total 760 ml Output Total 1650 ml Balance -890 ml Height & Weight Height: 5'4.00" Weight: 166lbs. 0.0oz. 75.543196fl; 31.00 BMI Method:Stated General Appearance: No Apparent Distress, Anxious (agitated and restless), Obese HEENT: PERRL/EOMI, Pharynx Normal Neck: Normal Inspection, Supple Respiratory: Lungs Clear, Normal Breath Sounds, No Respiratory Distress Cardiovascular: Regular Rate, Rhythm, No Edema, No Murmur Capillary Refill: Less Than 3 Seconds Extremity: Normal Inspection, Non Tender, No Pedal Edema Neurologic/Psychiatric: Alert, No Motor/Sensory Deficits, Disoriented Skin: Normal Color, Warm/Dry Results Lab Laboratory Tests 06/30/20 08:30 07/01/20 03:05 Assessment/Plan Assessment/Plan COVID 19 Pneumonia and influenza B -DX 12/18 -Currently requiring 2 liter NC -Tamiflu -Decadron -CVP -Remdesivir -IVF NS currently at 75cc/hr PEG -Monitor Seizure disorder Continue AEDs Obesity DVT prophylaxis: JUANJO Melgar DO Jul 01, 2020 04:06
[2020-07-01 04:25] LABS: BAND NEUTROPHILS 28 %; LYMPHOCYTES % (MANUAL) 5 %; MONOCYTES % (MANUAL) 3 %; NEUTROPHILS % (MANUAL) 64 %; RBC MORPH NORMAL
[2020-07-01] MEDS: POTASSIUM CL 10MEQ/50ML IVPB 50 ML IV SCH ×2 (05:04→05:57)
[2020-07-01] MEDS: D5W 1000 ML IV SOLUTION 1,000 ML IV SCH (05:04)
[2020-07-01] MEDS: dexAMETHasone 6 MG TAB (DECADRON) PO SCH (05:57)
[2020-07-01] MEDS: PANTOPRAZOLE 40 MG (PROTONIX) TAB PO SCH (05:57)
[2020-07-01] MEDS ORDERED: POTASSIUM PHOSPHATE INJ 30 MM in NS (IVPB) 250 ML IV ONE (07:00)
--- NOTE | 2020-07-01 07:08 | Diagnostic Imaging Report ---
INDICATION: Dyspnea. Comparison made with prior examination of 06/30/2020. FINDINGS: There is cardiomegaly and mild venous congestion. There is some right perihilar atelectasis and pneumonitis. No pleural fusion or pneumothorax. Mediastinum is unremarkable IMPRESSION: Right perihilar atelectasis and/or pneumonitis Cardiomegaly and mild venous congestion. Dictated by: Dictated on workstation # [id number]
[2020-07-01] MEDS: OSELTAMIVIR 30 MG (TAMIFLU) CAPSULE PO SCH ×2 (09:03→21:01)
[2020-07-01] MEDS: LEVETIRACETAM 1,000 MG (KEPPRA) TABLET PO SCH ×2 (09:04→21:01)
[2020-07-01] MEDS: DULoxetine 30 MG (CYMBALTA) CAP PO SCH (09:04)
[2020-07-01] MEDS: DIVALPROEX EXT RELEASE 500 MG (DEPAKOTE ER) TAB PO SCH ×2 (09:04→21:01)
[2020-07-01] MEDS: OXYBUTYNIN (DITROPAN) 5 MG TAB PO SCH ×3 (09:04→21:01)
[2020-07-01] MEDS: PRAMIPEXOLE 0.5 MG TAB (MIRAPEX) PO SCH ×3 (09:04→21:01)
[2020-07-01] MEDS: toPIRamate 25 MG (TOPAMAX) TAB PO SCH ×2 (09:05→21:01)
[2020-07-01] MEDS: ASPIRIN E.C. 81 MG (ECOTRIN) TAB PO SCH (09:05)
[2020-07-01] MEDS ORDERED: ONDANSETRON 4 MG/2 ML (SDV) Z0FRAN IV PRN (10:45)
[2020-07-01] MEDS ORDERED: MILK OF MAGNESIA 400 MG/5 ML 30 ML UDC PO PRN (10:45)
[2020-07-01] MEDS ORDERED: ANTACID SUSP 30 ML UDC (MYLANTA) PO PRN (10:45)
[2020-07-01] MEDS ORDERED: BENZONATATE 100 MG (TESSALON) CAPSULE PO PRN (10:45)
[2020-07-01] MEDS ORDERED: ACETAMINOPHEN 325 MG TABLET PO PRN (10:45)
[2020-07-01] MEDS: ACETAMINOPHEN 500 MG TAB (TYLENOL) PO PRN (11:13)
[2020-07-01] MEDS ORDERED: EPINEPHrine 1 MG INJECTION 4 MG in NS (IVPB) 246 ML IV SCH (12:15)
[2020-07-01 12:45] VITALS: BP 108/54
[2020-07-01 13:07] VITALS: BP 108/54
[2020-07-01] MEDS ORDERED: FURO80TA3 PO (13:25)
[2020-07-01] MEDS ORDERED: CYAN1TAB45 PO (13:25)
[2020-07-01] MEDS ORDERED: METH2.5T PO (13:53)
[2020-07-01] MEDS: REMDESIVIR 100 MG/NS 250 ML IVPB IV SCH ×2 (14:38)
[2020-07-01 16:00] VITALS: BP 107/50
[2020-07-01] MEDS ORDERED: VANCOMYCIN INJECTION 1,750 MG in NS IV 500 ML 500 ML IV NR (16:00)
--- NOTE | 2020-07-01 16:59 | Diagnostic Imaging Report ---
PROCEDURE: US Venous Lower Ext Santo. TECHNIQUE: Multiple real-time grayscale images were obtained over the lower extremities in various projections, bilaterally. Additional duplex Doppler and color Doppler images were also obtained. INDICATION: Lower extremity swelling EXAMINATIONS: Both grayscale and color Doppler imaging of the deep veins of the lower extremities were performed with waveform analysis. FINDINGS: There is no intraluminal filling defect. Normal continuous flow is seen throughout the deep venous systems of both legs, and there is normal response to augmentation. The deep veins compress normally. IMPRESSION: No ultrasound evidence of deep venous thrombosis in either lower extremity. Dictated by: Dictated on workstation # [id number]
[2020-07-01] MEDS: CEFEPIME INJECTION 1,000 MG in WATER (STERILE) FOR INJECTION 10 ML IV SCH ×2 (17:02→21:09)
[2020-07-01 20:00] VITALS: BP 115/56
[2020-07-01] MEDS: ENOXAPARIN 40 MG/0.4 ML (LOVENOX) SYR SC SCH (21:01)
[2020-07-02] VITALS: BP 118/56
[2020-07-02] MEDS: RT-ALBUTEROL INHALER HFA (VENTOLIN HFA) 18 GM IH SCH ×6 (02:08→21:50)
[2020-07-02] MEDS: CEFEPIME INJECTION 1,000 MG in WATER (STERILE) FOR INJECTION 10 ML IV SCH ×4 (04:40→21:25)
[2020-07-02 04:48] VITALS: BP 125/59
[2020-07-02 05:51] LABS: BASOPHILS % (AUTO) 0 % (0-10); EOSINOPHILS % (AUTO) 0 % (0-10); HEMATOCRIT 34 % (35-52); HEMOGLOBIN 10.8 g/dL (11.5-16.0); LYMPHOCYTES # (AUTO) 1.3 10^3/uL (1.0-4.0); LYMPHOCYTES % (AUTO) 18 % (12-44); MEAN CORPUSCULAR HEMOGLOBIN 32 pg (25-34); MEAN CORPUSCULAR HGB CONC 32 g/dL (32-36); MEAN CORPUSCULAR VOLUME 99 fL (80-99); MEAN PLATELET VOLUME 11.3 fL (9.0-12.2); MONOCYTES # (AUTO) 0.7 10^3/uL (0.0-1.0); MONOCYTES % (AUTO) 9 % (0-12); NEUTROPHILS # (AUTO) 4.8 10^3/uL (1.8-7.8); NEUTROPHILS % (AUTO) 68 % (42-75); PLATELET COUNT 77 10^3/uL (130-400)
[2020-07-02 06:13] LABS: CALCIUM 7.9 MG/DL (8.5-10.1); CREATININE SERUM 1.01 MG/DL (0.60-1.30); MAGNESIUM 2.1 MG/DL (1.6-2.4); PHOSPHORUS 2.6 MG/DL (2.3-4.7); POTASSIUM 3.1 MMOL/L (3.6-5.0)
[2020-07-02] MEDS: PANTOPRAZOLE 40 MG (PROTONIX) TAB PO SCH (06:31)
[2020-07-02] MEDS: dexAMETHasone 6 MG TAB (DECADRON) PO SCH (06:31)
[2020-07-02 08:00] VITALS: BP 131/58
--- NOTE | 2020-07-02 08:45 | Diagnostic Imaging Report ---
INDICATION: Dyspnea. TECHNIQUE: Single view chest 4:21 AM. CORRELATION STUDY: 07/01/2020 FINDINGS: Heart size remains enlarged. Vasculature slightly more prominent from prior. Scattered groundglass opacities throughout both lung corona are adversely changed from prior. IMPRESSION: 1. Vasculature overall appearing slightly more prominent from prior. 2. Scattered ground glass opacities throughout both lung corona. While nonspecific does raise concern for multifocal pneumonia or edema including potential for COVID pneumonia. Report was faxed [facility] by annie at 8:42am. Dictated by: Dictated on workstation # [id number]
[2020-07-02] MEDS: DULoxetine 30 MG (CYMBALTA) CAP PO SCH (09:37)
[2020-07-02] MEDS: OSELTAMIVIR 30 MG (TAMIFLU) CAPSULE PO SCH ×2 (09:37→21:25)
[2020-07-02] MEDS: PRAMIPEXOLE 0.5 MG TAB (MIRAPEX) PO SCH ×3 (09:37→21:25)
[2020-07-02] MEDS: OXYBUTYNIN (DITROPAN) 5 MG TAB PO SCH ×3 (09:37→21:25)
[2020-07-02] MEDS: ASPIRIN E.C. 81 MG (ECOTRIN) TAB PO SCH (09:37)
[2020-07-02] MEDS: LEVETIRACETAM 1,000 MG (KEPPRA) TABLET PO SCH ×2 (09:38→21:25)
[2020-07-02] MEDS: toPIRamate 25 MG (TOPAMAX) TAB PO SCH ×2 (09:38→21:25)
[2020-07-02] MEDS: DIVALPROEX EXT RELEASE 500 MG (DEPAKOTE ER) TAB PO SCH ×2 (09:49→21:25)
[2020-07-02] MEDS: D5W 1000 ML IV SOLUTION 1,000 ML IV SCH (09:49)
[2020-07-02 12:00] VITALS: BP_SYST 134; BP_SYST 143; BP_DIAS 62; BP_DIAS 64
--- NOTE | 2020-07-02 14:50 | Occupational Therapy Eval ---
OT Evaluation-General/PLF Medical Diagnosis Admission Date Jun 30, 2020 at 11:39 Medical Diagnosis: COVID+, influenza B Onset Date: Jun 30, 2020 Therapy Diagnosis Therapy Diagnosis: decreased ADL status, poor endurance Height/Weight Height (Feet): 5 Height (Inches): 4.00 Weight (Pounds): 166 Weight (Ounces): 0.0 Precautions Precautions/Isolations: Airborne Isolation, Fall Prevention Medical History Pertinent Medical History: Arthritis, CAD, Dementia, HTN, TBI Current History Pt recently diagnosed with COVID and Influenza B. Social History Home: Assisted Living ([facility]) Entry Into Home: Level Entry ADL-Prior Level of Function SCALE: Activities may be completed with or without assistive devices. 1-Gmpdwobnov-zzspxxp completes the activity by him/herself with no assistance from a helper. 5-Set-up or Clean-up Assistance-helper sets up or cleans up; patient completes activity. [place] assists only prior to or following the activity. 4-Supervision or Touching Assistance-helper provides verbal cues and/or touching/steadying and/or contact guard assistance as patient completes activity. Assistance may be provided throughout the activity or intermittently. 3-Partial/Moderate Assistance-helper does LESS THAN HALF the effort. [place] lif ts, holds or supports trunk or limbs, but provides less than half the effort. 2-Substantial/Maximal Assistance-helper does MORE THAN HALF the effort. [place] lifts or holds trunk or limbs and provides more than half the effort. 4-Gbmdzadvo-qnxiyp does ALL the effort. Patient does none of the effort to complete the activity. Or, the assistance of 2 or more helpers is required for the patient to complete the activity. If activity was not attempted, code reason: 7-Patient Refused. 9-Not Applicable-not attempted and the patient did not perform the activity before the current illness, exacerbation or injury. 10-Not Attempted due to Environmental Limitations-(lack of equipment, weather restraints, etc.). 88-Not Attempted due to Medical Conditions or Safety Concerns. ADL PLOF Comments Pt lives at [facility], indicates she is typically able to bath and dress herself although it is difficult for her to complete footwear. Self Care: Needed Some Help Functional Cognition: Independent OT Current Status Subjective Pt laying in bed, agreeable to therapy at this time. Mental Status/Objective Patient Orientation: Person, Place, Time, Situation Attachments: Santo Catheter, IV Current Upper Extremity ROM WFL Upper Extremity Sensation WFL ADL-Treatment On/Off Footwear (QC): 1 (Pt required total assistance with donning gripper socks.) Toileting Hygiene (QC): 1 (Pt required assistance with hygiene.) Other Treatments Pt laying in bed, transferred supine to sit EOB with increased time. Pt indicat es her L foot hurts (bruised) and she states she broke it in the past. Pt refused to don footwear stating she is unable to, OT dependently donned gripper socks for pt. Pt completed sit to stand, noted small BM at bed. Pt states she is unable to wipe, OT performed hygiene for pt. Pt then ambulated using FWW from HOB to foot of bed, pt indicates fatigue and requests to sit. Recliner brought to pt, pt sat in recliner. Pt positioned to comfort at recliner. Post tx, pt seated in recliner, call light in reach and all needs met. Education OT Patient Education: Correct positioning, Modified ADL techniques, Progress toward Goal/Update tx plan, Purpose of tx/functional activities Teaching Recipient: Patient Teaching Methods: Discussion Response to Teaching: Verbalize Understanding OT Stringed Instrument Repairer Goals Stringed Instrument Repairer Goals Time Frame: Jul 19, 2020 Eating (QC): 6 Oral Hygiene (QC): 6 Toileting Hygiene (QC): 6 Shower/Bathe Self (QC): 4 Upper Body Dressing (QC): 5 Lower Body Dressing (QC): 4 On/Off Footwear (QC): 4 Additional Goals: 1-Demonstrate ADL Tasks, 2-Verbalize Understanding, 3-Impr oveStrength/Tang 1=Demonstrate adherence to instructed precautions during ADL tasks. 2=Patient will verbalize/demonstrate understanding of assistive devices/modifications for ADL. 3=Patient will improve strength/tolerance for activity to enable patient to perform ADL's. OT Education/Plan Problem List/Assessment Assessment: Decreased Activ Tolerance, Decreased UE Strength, Impaired Funct Balance, Impaired I ADL's, Impaired Self-Care Skills Discharge Recommendations Plan/Recommendations: Continue POC Treatment Plan/Plan of Care Patient would benefit from OT for education, treatment and training to promote independence in ADL's, mobility, safety and/or upper extremity function for ADL's. Plan of Care: ADL Retraining, Functional Mobility, UE Funct Exercise/Act Treatment Duration: Jul 19, 2020 Frequency: 5 times per week Estimated Hrs Per Day: .25 hour per day Agreement: Yes Rehab Potential: Fair Time/GCodes Start Time: 14:15 Stop Time: 14:30 Total Time Billed (hr/min): 15 Billed Treatment Time 1, WADE VALDEZ OT Jul 02, 2020 14:50
[2020-07-02] MEDS: REMDESIVIR 100 MG/NS 250 ML IVPB IV SCH ×2 (15:00)
--- NOTE | 2020-07-02 15:08 | Progress Note - Hospitalist ---
Subjective HPI/CC On Admission Date Seen by Provider: Jul 02, 2020 Time Seen by Provider: 15:03 Marcela Gibbs is a 70 year old female who presented with fever. She was diagnosed with COVID almost ten days ago. She was diagnosed with Influenza B yesterday. She had a fever at [facility]. She has been confused and altered. She required Ativan and Haldol due to agitation. Upon my examination, she is slightly agitated but is easily redirectable. She is oriented to person and date, but thinks she is still at [facility]. Subjective/Events-last exam Pt reports doing ok today. Feeling better. No specific complaints. Focused Exam Lactate Level 06/30/20 08:30: Lactic Acid Level 1.29 Objective Exam Vital Signs Vital Signs Date Time Temp Pulse Resp B/P (MAP) Pulse Ox O2 Delivery O2 Flow Rate FiO2 07/02/20 12:00 35.9 71 18 134/62 (86) 96 Nasal Cannula 2.00 Capillary Refill : Less Than 3 SecondsLess Than 3 Seconds General Appearance: No Apparent Distress, Chronically ill Respiratory: Lungs Clear, No Respiratory Distress Cardiovascular: Regular Rate, Rhythm, No Murmur Extremity: No Calf Tenderness, No Pedal Edema Neurologic/Psychiatric: Alert, Disoriented Results/Procedures Lab Laboratory Tests 07/02/20 04:45 Patient resulted labs reviewed. Imaging: Reviewed Imaging Report Assessment/Plan Assessment and Plan Assess & Plan/Chief Complaint COVID 19 Pneumonia and influenza B -DX 06/21 -Currently requiring 2 liter NC, wean as able -Tamiflu -Decadron -CVP -Remdesivir -Continue IVF -MAT protocol Seizure disorder Continue AEDs PEG, resolved Obesity, no acute needs; clinically significant DVT prophylaxis: Lovenox Clinical Quality Measures DVT/VTE Risk/Contraindication: Risk Factor Score Per Nursin RFS Level Per Nursing on Admit: 4+=Very High BETTY LEAL MD Jul 02, 2020 15:08
--- NOTE | 2020-07-02 15:13 | Physical Therapy Evaluation ---
PT Evaluation-General Medical Diagnosis Admission Date Jun 30, 2020 at 11:39 Medical Diagnosis: COVID+, influenza B, sepsis Onset Date: Jun 30, 2020 Therapy Diagnosis Therapy Diagnosis: generalized weakness/debility Height/Weight Height (Feet): 5 Height (Inches): 4.00 Weight (Pounds): 166 Weight (Ounces): 0.0 Precautions Precautions/Isolations: Airborne Isolation, Fall Prevention Referral Physician: Zacarias Reason for Referral: Evaluation/Treatment Medical History Pertinent Medical History: Arthritis, CAD, Dementia, GERD, HTN, TBI Additional Medical History seizure disorder, bipolar, vertigo Current History EMS from [place] secondary to fever (covid and flu B (+) Reviewed History: Yes Social History Home: Assisted Living ([facility]) Entry Into Home: Level Entry Prior Prior Level of Function SCALE: Activities may be completed with or without assistive devices. 1-Jgxtpebuny-wpkwkie completes the activity by him/herself with no assistance from a helper. 5-Set-up or Clean-up Assistance-helper sets up or cleans up; patient completes activity. [place] assists only prior to or following the activity. 4-Supervision or Touching Assistance-helper provides verbal cues and/or touching/steadying and/or contact guard assistance as patient completes activity. Assistance may be provided throughout the activity or intermittently. 3-Partial/Moderate Assistance-helper does LESS THAN HALF the effort. [place] lifts, holds or supports trunk or limbs, but provides less than half the effort. 2-Substantial/Maximal Assistance-helper does MORE THAN HALF the effort. [place] lifts or holds trunk or limbs and provides more than half the effort. 7-Hhcqfgarj-yrjybl does ALL the effort. Patient does none of the effort to complete the activity. Or, the assistance of 2 or more helpers is required for the patient to complete the activity. If activity was not attempted, code reason: 7-Patient Refused. 9-Not Applicable-not attempted and the patient did not perform the activity before the current illness, exacerbation or injury. 10-Not Attempted due to Environmental Limitations-(lack of equipment, weather restraints, etc.). 88-Not Attempted due to Medical Conditions or Safety Concerns. Bed Mobility: 5 Transfers (B,C,W/C): 5 Gait: 5 Stairs: 9 Indoor Mobility (Ambulation): Independent Stairs: Not Applicalbe Prior Devices Use: Walker PT Evaluation-Current Subjective Patient reports she broke her left foot months ago. Noted bruising of toes. Pain Numeric Pain Scale: 5-Moderate Pain Location: Right, Left Location Body Site: Foot Comment: MILES Objective Patient Orientation: Person, Time, Situation Attachments: Santo Catheter, IV ROM/Strength ROM Lower Extremities bilateral LE WFL Strength Lower Extremities 3/5 grossly bilateral LE Integumentary/Posture Integumentary refer to nursing notes Bowel Incontinence: Yes Bladder Incontinence: Santo Cath Posture WFL Neuromuscular (Tone, Coordination, Reflexes) grossly intact Sensory Vision: Functional Hearing: Functional Transfers Lying to Sitting/Side of Bed(Q: 2 Sit to Stand (QC): 2 Chair/Mae-cn-Puicq Xfer(QC): 2 Gait Does the Patient Walk?: Yes Mode of Locomotion: Walk Anticipated Mode of Locomotion: Walk Walk 10 feet (QC): 2 Walk 50 ft with 2 Turns(QC): 88 Walk 150 ft (QC): 88 Gait Assistive Device: FWW Comments/Gait Description patient reports dizziness and requested to sit/rest. Reclined brought to patient. Balance Sitting Static: Normal Sitting Dynamic: Normal Standing Static: Fair Standing Dynamic: Fair Assessment/Needs 70 y.o. female,will benefit from skilled PT to address functional strength and mobility to improve current LOF to safely return to [place] at maximum LOF. Rehab Potential: Fair PT Newcomer Hostess Goals Newcomer Hostess Goals PT Newcomer Hostess Goals Time Frame: Jul 13, 2020 Roll Left & Right (QC): 5 Sit to Lying (QC): 5 Lying-Sitting on Side/Bed(QC): 5 Sit to Stand (QC): 5 Chair/Ivv-wp-Tndbl Xfer(QC): 5 Toilet Transfer (QC): 5 Does the Patient Walk: Yes Walk 10 feet (QC): 5 Walk 50ft with 2 Turns (QC): 5 PT Plan Problem List Problem List: Activity Tolerance, Functional Strength, Safety, Balance, Gait, Transfer, Bed Mobility Treatment/Plan Treatment Plan: Continue Plan of Care Treatment Plan: Bed Mobility, Education, Functional Activity Tang, Functional Strength, Gait, Safety, Therapeutic Exercise, Transfers Treatment Duration: Jul 13, 2020 Frequency: 6 times per week Estimated Hrs Per Day: .25 hour per day Patient and/or Family Agrees t: Yes Time/GCodes Time In: 1416 Time Out: 1430 Total Billed Treatment Time: 14 Total Billed Treatment 1 visit EVModC 14 min (OT don) KOREY LIN PT Jul 02, 2020 15:13
[2020-07-02] MEDS ORDERED: VANCOMYCIN 1500 MG/NS 500 ML IVPB IV SCH ×2 (16:00)
[2020-07-02 16:08] VITALS: BP 121/58
[2020-07-02] MEDS ORDERED: KCL 20 MEQ TAB (K-DUR) PO NR (19:30)
[2020-07-02 20:29] VITALS: BP 109/57
[2020-07-02] MEDS: ENOXAPARIN 40 MG/0.4 ML (LOVENOX) SYR SC SCH (21:26)
[2020-07-02] MEDS: prednisoLONE 1% OPTH (PRED FORTE) 5 ML BTL OU SCH (21:45)
[2020-07-02] MEDS ORDERED: NS IV 500 ML 500 ML ONE (23:23)
[2020-07-03] VITALS (9 sets, daily range): BP systolic 117–139; BP diastolic 55–73
[2020-07-03] MEDS: RT-ALBUTEROL INHALER HFA (VENTOLIN HFA) 18 GM IH SCH ×4 (01:34→21:00)
[2020-07-03] MEDS: CEFEPIME INJECTION 1,000 MG in WATER (STERILE) FOR INJECTION 10 ML IV SCH ×4 (04:52→21:18)
[2020-07-03] MEDS: PANTOPRAZOLE 40 MG (PROTONIX) TAB PO SCH (06:26)
[2020-07-03] MEDS: dexAMETHasone 6 MG TAB (DECADRON) PO SCH (06:26)
[2020-07-03 07:20] LABS: BASOPHILS # (AUTO) 0.1 10^3/uL (0.0-0.1); BASOPHILS % (AUTO) 1 % (0-10); EOSINOPHILS % (AUTO) 0 % (0-10); HEMATOCRIT 38 % (35-52); HEMOGLOBIN 12.6 g/dL (11.5-16.0); LYMPHOCYTES # (AUTO) 2.1 10^3/uL (1.0-4.0); LYMPHOCYTES % (AUTO) 24 % (12-44); MEAN CORPUSCULAR HEMOGLOBIN 32 pg (25-34); MEAN CORPUSCULAR HGB CONC 33 g/dL (32-36); MEAN CORPUSCULAR VOLUME 96 fL (80-99); MONOCYTES # (AUTO) 1.1 10^3/uL (0.0-1.0); MONOCYTES % (AUTO) 13 % (0-12); NEUTROPHILS # (AUTO) 4.6 10^3/uL (1.8-7.8); NEUTROPHILS % (AUTO) 53 % (42-75); PLATELET COUNT 78 10^3/uL (130-400); WHITE BLOOD COUNT 8.7 10^3/uL (4.3-11.0)
[2020-07-03 07:34] LABS: SMEAR SCAN COMMENT YES
[2020-07-03 07:36] LABS: POTASSIUM 3.1 MMOL/L (3.6-5.0)
[2020-07-03 07:38] LABS: CALCIUM 8.3 MG/DL (8.5-10.1)
[2020-07-03 07:42] LABS: CREATININE SERUM 0.94 MG/DL (0.60-1.30)
[2020-07-03] MEDS: D5W 1000 ML IV SOLUTION 1,000 ML IV SCH (09:26)
[2020-07-03] MEDS: PRAMIPEXOLE 0.5 MG TAB (MIRAPEX) PO SCH ×3 (09:27→21:17)
[2020-07-03] MEDS: ASPIRIN E.C. 81 MG (ECOTRIN) TAB PO SCH (09:27)
[2020-07-03] MEDS: DULoxetine 30 MG (CYMBALTA) CAP PO SCH (09:27)
[2020-07-03] MEDS: OSELTAMIVIR 30 MG (TAMIFLU) CAPSULE PO SCH ×2 (09:27→21:17)
[2020-07-03] MEDS: OXYBUTYNIN (DITROPAN) 5 MG TAB PO SCH ×3 (09:27→21:17)
[2020-07-03] MEDS: LEVETIRACETAM 1,000 MG (KEPPRA) TABLET PO SCH ×2 (09:27→21:18)
[2020-07-03] MEDS: DIVALPROEX EXT RELEASE 500 MG (DEPAKOTE ER) TAB PO SCH ×2 (09:27→21:18)
[2020-07-03] MEDS: toPIRamate 25 MG (TOPAMAX) TAB PO SCH ×2 (09:27→21:18)
--- NOTE | 2020-07-03 11:16 | Physical Therapy Daily Note ---
PT Daily Note-Current Subjective Patient in bed pre tx, agrees to PT, has unrated pain in left foot (toes are bruised from a previous fall) Appearance Patient in bed post tx with nurse call, phone, tray, all needs met, bed alarm on. Mental Status Patient Orientation: Person, Confused Attachments: Oxygen, Santo Catheter, IV Transfers SCALE: Activities may be completed with or without assistive devices. 6-Qdsbfhzugq-swkqoci completes the activity by him/herself with no assistance from a helper. 5-Set-up or Clean-up Assistance-helper sets up or cleans up; patient completes activity. [place] assists only prior to or following the activity. 4-Supervision or Touching Assistance-helper provides verbal cues and/or touching/steadying and/or contact guard assistance as patient completes activity. Assistance may be provided throughout the activity or intermittently. 3-Partial/Moderate Assistance-helper does LESS THAN HALF the effort. [place] lifts, holds or supports trunk or limbs, but provides less than half the effort. 2-Substantial/Maximal Assistance-helper does MORE THAN HALF the effort. [place] lifts or holds trunk or limbs and provides more than half the effort. 9-Emlfselgm-frzscj does ALL the effort. Patient does none of the effort to co mplete the activity. Or, the assistance of 2 or more helpers is required for the patient to complete the activity. If activity was not attempted, code reason: 7-Patient Refused. 9-Not Applicable-not attempted and the patient did not perform the activity before the current illness, exacerbation or injury. 10-Not Attempted due to Environmental Limitations-(lack of equipment, weather restraints, etc.). 88-Not Attempted due to Medical Conditions or Safety Concerns. Roll Left & Right (QC): 3 Sit to Lying (QC): 3 Lying to Sitting/Side of Bed(Q: 3 Sit to Stand (QC): 3 Patient is able to roll and supine <-> sit with mod assist, stands from the bed with min assist and a rolling walker. Patient is able to stand at the side of the bed for several minutes and perform some mini-squats before needing to sit and lay back down. Exercises Standing: Mini squats Standing Reps: 10 Treatments bed mobility, standing, LE exercise Assessment Current Status: Fair Progress improved supine <-> sit and LE strength PT [facility] Goals Life Sciences Director Goals PT Life Sciences Director Goals Time Frame: Jul 13, 2020 Roll Left & Right (QC): 5 Sit to Lying (QC): 5 Lying-Sitting on Side/Bed(QC): 5 Sit to Stand (QC): 5 Chair/Pkh-ig-Cnzof Xfer(QC): 5 Toilet Transfer (QC): 5 Does the Patient Walk: Yes Walk 10 feet (QC): 5 Walk 50ft with 2 Turns (QC): 5 PT Plan Problem List Problem List: Activity Tolerance, Functional Strength, Safety, Balance, Gait, Transfer, Bed Mobility, ROM Treatment/Plan Treatment Plan: Continue Plan of Care Treatment Plan: Bed Mobility, Education, Functional Activity Tang, Functional Strength, Gait, Safety, Therapeutic Exercise, Transfers Treatment Duration: Jul 13, 2020 Frequency: 6 times per week Estimated Hrs Per Day: .25 hour per day Patient and/or Family Agrees t: Yes Safety Risks/Education Patient Education: Transfer Techniques, Correct Positioning, Safety Issues Teaching Recipient: Patient Teaching Methods: Demonstration, Discussion Response to Teaching: Reinforcement Needed Time/GCodes Time In: 1020 Time Out: 1034 Total Billed Treatment Time: 14 Total Billed Treatment 1 visit FA ELIO ROBINS PT Jul 03, 2020 11:16
--- NOTE | 2020-07-03 13:23 | Occupational Ther Daily Note ---
OT Current Status-Daily Note Subjective Pt agreeable to OT tx. Mental Status/Objective Attachments: Santo Catheter, IV ADL-Treatment Therapy Code Descriptions/Definitions Functional [place] Measure: 0=Not Assessed/NA 4=Minimal Assistance 1=Total Assistance 5=Supervision or Setup 2=Maximal Assistance 6=Modified [place] 3=Moderate Assistance 7=Complete IndependenceSCALE: Activities may be completed with or without assistive devices. 9-Yshtqkxjaq-xcbdflg completes the activity by him/herself with no assistance from a helper. 5-Set-up or Clean-up Assistance-helper sets up or cleans up; patient completes activity. [place] assists only prior to or following the activity. 4-Supervision or Touching Assistance-helper provides verbal cues and/or touching/steadying and/or contact guard assistance as patient completes activity. Assistance may be provided throughout the activity or intermittently. 3-Partial/Moderate Assistance-helper does LESS THAN HALF the effort. [place] lifts, holds or supports trunk or limbs, but provides less than half the effort. 2-Substantial/Maximal Assistance-helper does MORE THAN HALF the effort. [place] lifts or holds trunk or limbs and provides more than half the effort. 0-Xbxqjqoew-dkpzzx does ALL the effort. Patient does none of the effort to complete the activity. Or, the assistance of 2 or more helpers is required for the patient to complete the activity. If activity was not attempted, code reason: 7-Patient Refused. 9-Not Applicable-not attempted and the patient did not perform the activity before the current illness, exacerbation or injury. 10-Not Attempted due to Environmental Limitations-(lack of equipment, weather restraints, etc.). 88-Not Attempted due to Medical Conditions or Safety Concerns. Other Treatment Pt laying in bed, agreeable to OT tx. Pt transferred supine to sit EOB, mod A. Pt indicates she has already been up to chair earlier this AM and would prefer not to transfer to recliner. Pt then stood at FWW for several minutes. OT encouraged pt to raise 1 hand from walker at a time, alternating hands but pt re quests to sit down. Pt transferred back supine with mod A. Education OT Patient Education: Correct positioning, Modified ADL techniques, Progress toward Goal/Update tx plan, Purpose of tx/functional activities Teaching Recipient: Patient Teaching Methods: Discussion Response to Teaching: Verbalize Understanding OT Panel Machine Operator Goals Panel Machine Operator Goals Time Frame: Jul 19, 2020 Eating (QC): 6 Oral Hygiene (QC): 6 Toileting Hygiene (QC): 6 Shower/Bathe Self (QC): 4 Upper Body Dressing (QC): 5 Lower Body Dressing (QC): 4 On/Off Footwear (QC): 4 Additional Goals: 1-Demonstrate ADL Tasks, 2-Verbalize Understanding, 3- ImproveStrength/Tang 1=Demonstrate adherence to instructed precautions during ADL tasks. 2=Patient will verbalize/demonstrate understanding of assistive devices/modifications for ADL. 3=Patient will improve strength/tolerance for activity to enable patient to perform ADL's. OT Education/Plan Problem List/Assessment Assessment: Decreased Activ Tolerance, Decreased UE Strength, Impaired Bed Mobility, Impaired I ADL's, Impaired Self-Care Skills Discharge Recommendations Plan/Recommendations: Continue POC Treatment Plan/Plan of Care Patient would benefit from OT for education, treatment and training to promote independence in ADL's, mobility, safety and/or upper extremity function for ADL's. Plan of Care: ADL Retraining, Functional Mobility, UE Funct Exercise/Act Treatment Duration: Jul 19, 2020 Frequency: 5 times per week Estimated Hrs Per Day: .25 hour per day Agreement: Yes Rehab Potential: Fair Time/GCodes Start Time: 10:20 Stop Time: 10:34 Total Time Billed (hr/min): 14 Billed Treatment Time 1, WADE GIBSON OT Jul 03, 2020 13:23
[2020-07-03] MEDS ORDERED: TROUGH ORDER-PHARMACY XX NR (15:00)
[2020-07-03] MEDS: REMDESIVIR 100 MG/NS 250 ML IVPB IV SCH ×2 (15:15)
--- NOTE | 2020-07-03 15:34 | Progress Note - Hospitalist ---
Subjective HPI/CC On Admission Date Seen by Provider: Jul 03, 2020 Time Seen by Provider: 15:30 Marcela Gibbs is a 70 year old female who presented with fever. She was diagnosed with COVID almost ten days ago. She was diagnosed with Influenza B yesterday. She had a fever at [facility]. She has been confused and altered. She required Ativan and Haldol due to agitation. Upon my examination, she is slightly agitated but is easily redirectable. She is oriented to person and date, but thinks she is still at [facility]. Subjective/Events-last exam Pt reports feeling ok today. No complaints. She did ask me to get the other person out of her room Objective Exam Vital Signs Vital Signs Date Time Temp Pulse Resp B/P (MAP) Pulse Ox O2 Delivery O2 Flow Rate FiO2 07/03/20 14:58 95 Room Air 07/03/20 12:00 36.4 69 16 117/55 (75) 07/02/20 21:00 2.00 Capillary Refill : Less Than 3 SecondsLess Than 3 Seconds General Appearance: No Apparent Distress, Chronically ill Respiratory: Lungs Clear, No Accessory Muscle Use, No Respiratory Distress Cardiovascular: Regular Rate, Rhythm, No Murmur Gastrointestinal: Normal Bowel Sounds, Non Tender, Soft Neurologic/Psychiatric: Alert, Oriented x3, Normal Mood/Affect Results/Procedures Lab Laboratory Tests 07/03/20 06:37 Patient resulted labs reviewed. Imaging: Reviewed Imaging Report Assessment/Plan Assessment and Plan Assess & Plan/Chief Complaint COVID 19 Pneumonia and influenza B -DX 06/21 -Currently requiring 2 liter NC, wean as able -Tamiflu -Decadron -CVP -Remdesivir, will complete course tomorrow -Continue IVF -MAT protocol Seizure disorder Continue AEDs second phalanx fracture right foot Reviewed film from 06/29 Discussed with ortho, recommends finn taping if minimal pain or post op shoe if more painful Can be full weight bearing PEG, resolved Obesity, no acute needs; clinically significant DVT prophylaxis: Lovenox Clinical Quality Measures DVT/VTE Risk/Contraindication: Risk Factor Score Per Nursin RFS Level Per Nursing on Admit: 4+=Very High BETTY LEAL MD Jul 03, 2020 15:34
[2020-07-03] MEDS: ENOXAPARIN 40 MG/0.4 ML (LOVENOX) SYR SC SCH (21:17)
[2020-07-03] MEDS: MELATONIN 3 MG TABLET PO PRN (21:18)
[2020-07-04 00:41] VITALS: BP 131/60
[2020-07-04] MEDS: RT-ALBUTEROL INHALER HFA (VENTOLIN HFA) 18 GM IH SCH ×4 (03:00→23:38)
[2020-07-04] MEDS: CEFEPIME INJECTION 1,000 MG in WATER (STERILE) FOR INJECTION 10 ML IV SCH ×4 (04:58→20:59)
[2020-07-04] MEDS: D5W 1000 ML IV SOLUTION 1,000 ML IV SCH (05:01)
[2020-07-04] MEDS: dexAMETHasone 6 MG TAB (DECADRON) PO SCH (06:24)
[2020-07-04] MEDS: PANTOPRAZOLE 40 MG (PROTONIX) TAB PO SCH (06:24)
[2020-07-04 07:19] LABS: BASOPHILS # (AUTO) 0.1 10^3/uL (0.0-0.1); BASOPHILS % (AUTO) 1 % (0-10); EOSINOPHILS % (AUTO) 0 % (0-10); HEMATOCRIT 37 % (35-52); HEMOGLOBIN 11.7 g/dL (11.5-16.0); LYMPHOCYTES # (AUTO) 1.8 10^3/uL (1.0-4.0); LYMPHOCYTES % (AUTO) 19 % (12-44); MEAN CORPUSCULAR HEMOGLOBIN 31 pg (25-34); MEAN CORPUSCULAR HGB CONC 32 g/dL (32-36); MEAN CORPUSCULAR VOLUME 99 fL (80-99); MEAN PLATELET VOLUME 10.7 fL (9.0-12.2); MONOCYTES # (AUTO) 1.5 10^3/uL (0.0-1.0); MONOCYTES % (AUTO) 16 % (0-12); NEUTROPHILS # (AUTO) 5.2 10^3/uL (1.8-7.8); NEUTROPHILS % (AUTO) 55 % (42-75); PLATELET COUNT 88 10^3/uL (130-400); WHITE BLOOD COUNT 9.4 10^3/uL (4.3-11.0)
[2020-07-04 07:26] LABS: CHLORIDE 108 MMOL/L (98-107); SODIUM 139 MMOL/L (135-145)
[2020-07-04 07:27] LABS: CALCIUM 8.8 MG/DL (8.5-10.1)
[2020-07-04 07:28] LABS: GLUCOSE 76 MG/DL (70-105)
[2020-07-04 07:29] LABS: CARBON DIOXIDE 20 MMOL/L (21-32)
[2020-07-04 07:31] LABS: PHOSPHORUS 2.2 MG/DL (2.3-4.7)
[2020-07-04 07:32] LABS: CREATININE SERUM 0.87 MG/DL (0.60-1.30); GFR ESTIMATED > 60
[2020-07-04 07:33] LABS: BUN/CREATININE RATIO 17
[2020-07-04 07:34] LABS: MAGNESIUM 2.1 MG/DL (1.6-2.4)
[2020-07-04 08:00] VITALS: BP 134/63
[2020-07-04] MEDS: DULoxetine 30 MG (CYMBALTA) CAP PO SCH (09:57)
[2020-07-04] MEDS: OXYBUTYNIN (DITROPAN) 5 MG TAB PO SCH ×3 (09:58→20:57)
[2020-07-04] MEDS: ASPIRIN E.C. 81 MG (ECOTRIN) TAB PO SCH (09:58)
[2020-07-04] MEDS: PRAMIPEXOLE 0.5 MG TAB (MIRAPEX) PO SCH ×3 (09:58→20:57)
[2020-07-04] MEDS: DIVALPROEX EXT RELEASE 500 MG (DEPAKOTE ER) TAB PO SCH ×2 (09:58→20:58)
[2020-07-04] MEDS: toPIRamate 25 MG (TOPAMAX) TAB PO SCH ×2 (09:58→20:58)
[2020-07-04] MEDS: LEVETIRACETAM 1,000 MG (KEPPRA) TABLET PO SCH ×2 (09:58→20:57)
[2020-07-04] MEDS: OSELTAMIVIR 30 MG (TAMIFLU) CAPSULE PO SCH ×2 (09:58→20:57)
--- NOTE | 2020-07-04 11:39 | Occupational Ther Daily Note ---
OT Current Status-Daily Note Subjective Pt alert, lying in bed. Pt agrees to therapy. No c/o pain at this time. Mental Status/Objective Patient Orientation: Person Attachments: Santo Catheter, IV ADL-Treatment Therapy Code Descriptions/Definitions Functional [place] Measure: 0=Not Assessed/NA 4=Minimal Assistance 1=Total Assistance 5=Supervision or Setup 2=Maximal Assistance 6=Modified [place] 3=Moderate Assistance 7=Complete IndependenceSCALE: Activities may be completed with or without assistive devices. 2-Qvtfggzmgp-bjjxhzy completes the activity by him/herself with no assistance from a helper. 5-Set-up or Clean-up Assistance-helper sets up or cleans up; patient completes activity. [place] assists only prior to or following the activity. 4-Supervision or Touching Assistance-helper provides verbal cues and/or touching/steadying and/or contact guard assistance as patient completes activity. Assistance may be provided throughout the activity or intermittently. 3-Partial/Moderate Assistance-helper does LESS THAN HALF the effort. [place] lift s, holds or supports trunk or limbs, but provides less than half the effort. 2-Substantial/Maximal Assistance-helper does MORE THAN HALF the effort. [place] lifts or holds trunk or limbs and provides more than half the effort. 4-Xmihvmajj-ldjtje does ALL the effort. Patient does none of the effort to complete the activity. Or, the assistance of 2 or more helpers is required for the patient to complete the activity. If activity was not attempted, code reason: 7-Patient Refused. 9-Not Applicable-not attempted and the patient did not perform the activity before the current illness, exacerbation or injury. 10-Not Attempted due to Environmental Limitations-(lack of equipment, weather restraints, etc.). 88-Not Attempted due to Medical Conditions or Safety Concerns. On/Off Footwear: 2 Other Treatment Pt unable to don/doff socks. SBA for supine to EOB. Independently sitting EOB. Pt completed ambulation with SBA around room. Encouragement to ly down in bed by self. Initially pt stated that she couldn't lift her legs but when attempted and was able to complete. After session, pt sitting up in bed to eat snack by self. Bed alarm activated. All needs met in room. OT Hoe Runner Goals Halfway Goals Time Frame: Jul 19, 2020 Eating (QC): 6 Oral Hygiene (QC): 6 Toileting Hygiene (QC): 6 Shower/Bathe Self (QC): 4 Upper Body Dressing (QC): 5 Lower Body Dressing (QC): 4 On/Off Footwear (QC): 4 Additional Goals: 1-Demonstrate ADL Tasks, 2-Verbalize Understanding, 3- ImproveStrength/Tang 1=Demonstrate adherence to instructed precautions during ADL tasks. 2=Patient will verbalize/demonstrate understanding of assistive devices/modifications for ADL. 3=Patient will improve strength/tolerance for activity to enable patient to perform ADL's. OT Education/Plan Problem List/Assessment Assessment: Decreased Activ Tolerance, Impaired Self-Care Skills Discharge Recommendations Plan/Recommendations: Continue POC Treatment Plan/Plan of Care Patient would benefit from OT for education, treatment and training to promote independence in ADL's, mobility, safety and/or upper extremity function for ADL's. Plan of Care: ADL Retraining, Functional Mobility, UE Funct Exercise/Act Treatment Duration: Jul 19, 2020 Frequency: 5 times per week Estimated Hrs Per Day: .25 hour per day Agreement: Yes Rehab Potential: Fair Time/GCodes Start Time: 11:00 Stop Time: 11:10 Total Time Billed (hr/min): 10 Billed Treatment Time 1 visit-FA 1 (10 min) MIGNON CASTILLO Jul 04, 2020 11:39
--- NOTE | 2020-07-04 11:45 | Physical Therapy Daily Note ---
PT Daily Note-Current Subjective Patient agrees to PT. No c/o. Mental Status Patient Orientation: Confused Attachments: Santo Catheter Transfers SCALE: Activities may be completed with or without assistive devices. 5-Ovumklmbjj-dibfndz completes the activity by him/herself with no assistance from a helper. 5-Set-up or Clean-up Assistance-helper sets up or cleans up; patient completes a ctivity. [place] assists only prior to or following the activity. 4-Supervision or Touching Assistance-helper provides verbal cues and/or touching/steadying and/or contact guard assistance as patient completes activity. Assistance may be provided throughout the activity or intermittently. 3-Partial/Moderate Assistance-helper does LESS THAN HALF the effort. [place] lifts, holds or supports trunk or limbs, but provides less than half the effort. 2-Substantial/Maximal Assistance-helper does MORE THAN HALF the effort. [place] lifts or holds trunk or limbs and provides more than half the effort. 7-Pbejtnpvk-xanzsl does ALL the effort. Patient does none of the effort to complete the activity. Or, the assistance of 2 or more helpers is required for the patient to complete the activity. If activity was not attempted, code reason: 7-Patient Refused. 9-Not Applicable-not attempted and the patient did not perform the activity before the current illness, exacerbation or injury. 10-Not Attempted due to Environmental Limitations-(lack of equipment, weather restraints, etc.). 88-Not Attempted due to Medical Conditions or Safety Concerns. Sit to Lying (QC): 4 Lying to Sitting/Side of Bed(Q: 4 Sit to Stand (QC): 4 SBA with all activity on this date. Gait Training Does the Patient Walk?: Yes Distance: 100' in room Walk 10 feet (QC): 4 Walk 50 ft with 2 Turns(QC): 4 Gait Assistive Device: FWW safe and functional gait sequence with several turns (SBA) Assessment Patient returned to bed with all four rails up and alarm activated. Patient much improved with gross motor skills on this date. PT Supervisor [place] Department Goals Nursing Home Goals PT Nursing Home Goals Time Frame: Jul 13, 2020 Roll Left & Right (QC): 5 Sit to Lying (QC): 5 Lying-Sitting on Side/Bed(QC): 5 Sit to Stand (QC): 5 Chair/Itk-yy-Svrwm Xfer(QC): 5 Toilet Transfer (QC): 5 Does the Patient Walk: Yes Walk 10 feet (QC): 5 Walk 50ft with 2 Turns (QC): 5 PT Plan Treatment/Plan Treatment Plan: Continue Plan of Care Treatment Plan: Bed Mobility, Education, Functional Activity Tang, Functional Strength, Gait, Safety, Therapeutic Exercise, Transfers Treatment Duration: Jul 13, 2020 Frequency: 6 times per week Estimated Hrs Per Day: .25 hour per day Patient and/or Family Agrees t: Yes Time/GCodes Time In: 1100 Time Out: 1115 Total Billed Treatment Time: 15 Total Billed Treatment 1 visit GT 15 min KOREY LIN PT Jul 04, 2020 11:45
--- NOTE | 2020-07-04 13:56 | Progress Note - Hospitalist ---
Subjective HPI/CC On Admission Date Seen by Provider: Jul 04, 2020 Time Seen by Provider: 13:53 Marcela Gibbs is a 70 year old female who presented with fever. She was diagnosed with COVID almost ten days ago. She was diagnosed with Influenza B yesterday. She had a fever at [facility]. She has been confused and altered. She required Ativan and Haldol due to agitation. Upon my examination, she is slightly agitated but is easily redirectable. She is oriented to person and date, but thinks she is still at [facility]. Subjective/Events-last exam Pt reports feeling good today. No complaints at this time. Is hoping to get to work with PT soon. Objective Exam Vital Signs Vital Signs Date Time Temp Pulse Resp B/P (MAP) Pulse Ox O2 Delivery O2 Flow Rate FiO2 07/04/20 08:00 35.8 68 18 134/63 (86) 95 Room Air 07/02/20 21:00 2.00 Capillary Refill : Less Than 3 SecondsLess Than 3 Seconds General Appearance: No Apparent Distress, Chronically ill Respiratory: Lungs Clear, No Accessory Muscle Use, No Respiratory Distress Cardiovascular: Regular Rate, Rhythm, No Murmur Gastrointestinal: Normal Bowel Sounds, Non Tender, Soft Neurologic/Psychiatric: Alert, Oriented x3 Results/Procedures Lab Laboratory Tests 07/04/20 06:55 Patient resulted labs reviewed. Imaging: Reviewed Imaging Report Assessment/Plan Assessment and Plan Assess & Plan/Chief Complaint COVID 19 Pneumonia and influenza B -DX 06/21 -Now on room air -Tamiflu -Decadron -CVP -Remdesivir, completing course today -MAT protocol Seizure disorder Continue AEDs second phalanx fracture right foot Can be full weight bearing Discussed with [facility] who cannot accept her back at this functional status (SBA with all activity), will continue PT/OT PEG, resolved Obesity, no acute needs; clinically significant DVT prophylaxis: Lovenox Clinical Quality Measures DVT/VTE Risk/Contraindication: Risk Factor Score Per Nursin RFS Level Per Nursing on Admit: 4+=Very High BETTY LEAL MD Jul 04, 2020 13:56
[2020-07-04] MEDS: REMDESIVIR 100 MG/NS 250 ML IVPB IV SCH ×2 (15:57)
[2020-07-04 16:44] VITALS: BP 126/59
[2020-07-04] MEDS ORDERED: diphenhydrAMINE 50 MG/ML INJ (BENADRYL) IM PRN (19:00)
[2020-07-04] MEDS: MELATONIN 3 MG TABLET PO PRN (20:57)
[2020-07-04] MEDS: ACETAMINOPHEN 500 MG TAB (TYLENOL) PO PRN (20:58)
[2020-07-04] MEDS: ENOXAPARIN 40 MG/0.4 ML (LOVENOX) SYR SC SCH (20:58)
[2020-07-04] MEDS: prednisoLONE 1% OPTH (PRED FORTE) 5 ML BTL OU SCH (21:00)
[2020-07-04 23:45] VITALS: BP 109/52
[2020-07-05] MEDS: RT-ALBUTEROL INHALER HFA (VENTOLIN HFA) 18 GM IH SCH ×4 (03:42→21:17)
[2020-07-05] MEDS: CEFEPIME INJECTION 1,000 MG in WATER (STERILE) FOR INJECTION 10 ML IV SCH ×4 (04:20→21:26)
[2020-07-05] MEDS: D5W 1000 ML IV SOLUTION 1,000 ML IV SCH (04:23)
[2020-07-05] MEDS: dexAMETHasone 6 MG TAB (DECADRON) PO SCH (06:27)
[2020-07-05] MEDS: PANTOPRAZOLE 40 MG (PROTONIX) TAB PO SCH (06:27)
[2020-07-05 08:00] VITALS: BP 131/63
[2020-07-05] MEDS: DIVALPROEX EXT RELEASE 500 MG (DEPAKOTE ER) TAB PO SCH ×2 (08:19→21:25)
[2020-07-05] MEDS: OXYBUTYNIN (DITROPAN) 5 MG TAB PO SCH ×3 (08:20→21:25)
[2020-07-05] MEDS: LEVETIRACETAM 1,000 MG (KEPPRA) TABLET PO SCH ×2 (08:20→21:25)
[2020-07-05] MEDS: PRAMIPEXOLE 0.5 MG TAB (MIRAPEX) PO SCH ×3 (08:20→21:25)
[2020-07-05] MEDS: DULoxetine 30 MG (CYMBALTA) CAP PO SCH (08:20)
[2020-07-05] MEDS: ASPIRIN E.C. 81 MG (ECOTRIN) TAB PO SCH (08:20)
[2020-07-05] MEDS: toPIRamate 25 MG (TOPAMAX) TAB PO SCH ×2 (08:20→21:25)
[2020-07-05 11:33] LABS: BASOPHILS # (AUTO) 0.1 10^3/uL (0.0-0.1); BASOPHILS % (AUTO) 1 % (0-10); EOSINOPHILS % (AUTO) 0 % (0-10); HEMOGLOBIN 11.5 g/dL (11.5-16.0); LYMPHOCYTES % (AUTO) 9 % (12-44); MEAN CORPUSCULAR HEMOGLOBIN 31 pg (25-34)
[2020-07-05 11:35] LABS: HEMATOCRIT 36 % (35-52); LYMPHOCYTES # (AUTO) 0.8 10^3/uL (1.0-4.0); MEAN CORPUSCULAR HGB CONC 32 g/dL (32-36); MEAN CORPUSCULAR VOLUME 98 fL (80-99); MEAN PLATELET VOLUME 10.4 fL (9.0-12.2); MONOCYTES # (AUTO) 0.7 10^3/uL (0.0-1.0); MONOCYTES % (AUTO) 8 % (0-12); NEUTROPHILS # (AUTO) 6.3 10^3/uL (1.8-7.8); NEUTROPHILS % (AUTO) 72 % (42-75); PLATELET COUNT 107 10^3/uL (130-400); WHITE BLOOD COUNT 8.7 10^3/uL (4.3-11.0)
--- NOTE | 2020-07-05 11:48 | Progress Note - Hospitalist ---
Subjective HPI/CC On Admission Date Seen by Provider: Jul 05, 2020 Time Seen by Provider: 11:46 Marcela Gibbs is a 70 year old female who presented with fever. She was diagnosed with COVID almost ten days ago. She was diagnosed with Influenza B yesterday. She had a fever at [facility]. She has been confused and altered. She required Ativan and Haldol due to agitation. Upon my examination, she is slightly agitated but is easily redirectable. She is oriented to person and date, but thinks she is still at [facility]. Subjective/Events-last exam Pt reports feeling well to me. Complained of some abdominal pain to the RN but denies any to me. Only concern is about working with PT so she can get stronger and go home. Objective Exam Vital Signs Vital Signs Date Time Temp Pulse Resp B/P (MAP) Pulse Ox O2 Delivery O2 Flow Rate FiO2 07/05/20 09:59 92 Room Air 0.00 07/05/20 08:00 36.0 60 18 131/63 (85) Capillary Refill : Less Than 3 SecondsLess Than 3 Seconds General Appearance: No Apparent Distress, Chronically ill Respiratory: Lungs Clear, No Respiratory Distress Cardiovascular: Regular Rate, Rhythm, No Murmur Neurologic/Psychiatric: Alert, Oriented x3 Results/Procedures Lab Laboratory Tests 07/05/20 11:09 Patient resulted labs reviewed. Imaging: Reviewed Imaging Report Assessment/Plan Assessment and Plan Assess & Plan/Chief Complaint COVID 19 Pneumonia and influenza B -DX 06/21 -Now on room air -Tamiflu, completed course -Decadron -CVP -Remdesivir, completed course -MAT protocol Seizure disorder Continue AEDs second phalanx fracture right foot Can be full weight bearing Discussed with [facility] who cannot accept her back at this functional status (SBA with all activity), will continue PT/OT IRU consult placed as well PEG, resolved Obesity, no acute needs; clinically significant DVT prophylaxis: Lovenox Clinical Quality Measures DVT/VTE Risk/Contraindication: Risk Factor Score Per Nursin RFS Level Per Nursing on Admit: 4+=Very High BETTY LEAL MD Jul 05, 2020 11:48
[2020-07-05 11:51] LABS: BUN/CREATININE RATIO 17; CALCIUM 8.4 MG/DL (8.5-10.1); CARBON DIOXIDE 22 MMOL/L (21-32); CHLORIDE 110 MMOL/L (98-107); CREATININE SERUM 0.83 MG/DL (0.60-1.30); GFR ESTIMATED > 60; GLUCOSE 113 MG/DL (70-105); MAGNESIUM 2.5 MG/DL (1.6-2.4); PHOSPHORUS 1.6 MG/DL (2.3-4.7); POTASSIUM 3.3 MMOL/L (3.6-5.0); SODIUM 141 MMOL/L (135-145)
--- NOTE | 2020-07-05 12:14 | Physical Therapy Daily Note ---
PT Daily Note-Current Subjective Patient in bed pre tx, agrees to PT, has 5/10 pain in both legs, patient doesn't seem to be able to be more specific about the location of her pain. She also seems more confused today. Proper PPE donned before entering room. Appearance Patient in recliner post tx with nurse call, phone, tray, all needs met, legs elevated, chair alarm on. Mental Status Patient Orientation: Person, Confused Attachments: IV Transfers SCALE: Activities may be completed with or without assistive devices. 2-Qszwbgcllo-egeymsm completes the activity by him/herself with no assistance from a helper. 5-Set-up or Clean-up Assistance-helper sets up or cleans up; patient completes activity. [place] assists only prior to or following the activity. 4-Supervision or Touching Assistance-helper provides verbal cues and/or touching/steadying and/or contact guard assistance as patient completes activity. Assistance may be provided throughout the activity or intermittently. 3-Partial/Moderate Assistance-helper does LESS THAN HALF the effort. [place] lifts, holds or supports trunk or limbs, but provides less than half the effort. 2-Substantial/Maximal Assistance-helper does MORE THAN HALF the effort. [place] lifts or holds trunk or limbs and provides more than half the effort. 8-Epuxewxla-jgtccn does ALL the effort. Patient does none of the effort to complete the activity. Or, the assistance of 2 or more helpers is required for the patient to complete the activity. If activity was not attempted, code reason: 7-Patient Refused. 9-Not Applicable-not attempted and the patient did not perform the activity before the current illness, exacerbation or injury. 10-Not Attempted due to Environmental Limitations-(lack of equipment, weather restraints, etc.). 88-Not Attempted due to Medical Conditions or Safety Concerns. Roll Left & Right (QC): 3 Lying to Sitting/Side of Bed(Q: 3 Sit to Stand (QC): 3 Chair/Nws-fg-Yyaat Xfer(QC): 3 Patient min assist for supine to sit, min assist for sit to stand. Gait Training Distance: 5' Gait Persons Needed: 1 Gait Assistive Device: FWW Patient only ambulates 5' to the recliner. Patient has a much harder time ambulating this morning, possibly due to leg pain. She can barely ambulate 5' to the recliner before turning and sitting. She seems more confused and need multiple repeated simple directions to navigate sitting in the recliner. Exercises Seated Therapy Exercises: Ankle pumps, Long arc quads Seated Reps: 20 Treatments bed mobility and transfers, ambulation, LE exercise Assessment Current Status: Poor Progress decline in confusion and functional mobility PT Processing Spec Goals Processing Spec Goals PT Processing Spec Goals Time Frame: Jul 13, 2020 Roll Left & Right (QC): 5 Sit to Lying (QC): 5 Lying-Sitting on Side/Bed(QC): 5 Sit to Stand (QC): 5 Chair/Ywr-av-Nzjnu Xfer(QC): 5 Toilet Transfer (QC): 5 Does the Patient Walk: Yes Walk 10 feet (QC): 5 Walk 50ft with 2 Turns (QC): 5 PT Plan Problem List Problem List: Activity Tolerance, Functional Strength, Safety, Balance, Gait, Transfer, Bed Mobility, ROM Treatment/Plan Treatment Plan: Continue Plan of Care Treatment Plan: Bed Mobility, Education, Functional Activity Tang, Functional Strength, Gait, Safety, Therapeutic Exercise, Transfers Treatment Duration: Jul 13, 2020 Frequency: 6 times per week Estimated Hrs Per Day: .25 hour per day Patient and/or Family Agrees t: Yes Safety Risks/Education Patient Education: Gait Training, Transfer Techniques, Correct Positioning, Safety Issues Teaching Recipient: Patient Teaching Methods: Demonstration, Discussion Response to Teaching: Reinforcement Needed Time/GCodes Time In: 1145 Time Out: 1200 Total Billed Treatment Time: 15 Total Billed Treatment 1 visit FA 15' ELIO PEREA PT Jul 05, 2020 12:14
--- NOTE | 2020-07-05 14:04 | Occupational Ther Daily Note ---
OT Current Status-Daily Note Subjective Pt seated in recliner, agreeable to OT tx ADL-Treatment Therapy Code Descriptions/Definitions Functional [place] Measure: 0=Not Assessed/NA 4=Minimal Assistance 1=Total Assistance 5=Supervision or Setup 2=Maximal Assistance 6=Modified [place] 3=Moderate Assistance 7=Complete IndependenceSCALE: Activities may be completed with or without assistive devices. 4-Zakzsajkff-msnuzvy completes the activity by him/herself with no assistance from a helper. 5-Set-up or Clean-up Assistance-helper sets up or cleans up; patient completes activity. [place] assists only prior to or following the activity. 4-Supervision or Touching Assistance-helper provides verbal cues and/or touching/steadying and/or contact guard assistance as patient completes activity. Assistance may be provided throughout the activity or intermittently. 3-Partial/Moderate Assistance-helper does LESS THAN HALF the effort. [place] lifts, holds or supports trunk or limbs, but provides less than half the effort. 2-Substantial/Maximal Assistance-helper does MORE THAN HALF the effort. [place] lifts or holds trunk or limbs and provides more than half the effort. 5-Kxrtmyhrn-fickii does ALL the effort. Patient does none of the effort to complete the activity. Or, the assistance of 2 or more helpers is required for the patient to complete the activity. If activity was not attempted, code reason: 7-Patient Refused. 9-Not Applicable-not attempted and the patient did not perform the activity before the current illness, exacerbation or injury. 10-Not Attempted due to Environmental Limitations-(lack of equipment, weather restraints, etc.). 88-Not Attempted due to Medical Conditions or Safety Concerns. Other Treatment Pt seated in recliner, finished with lunch. Pt agreeable to OT tx. Pt able to wash face after set up assistance. In order to increase BUE strength and functional endurance, pt completes x15 reps of the following movements, BUE: shoulder flexion, elbow flexion/extension, wrist flexion/extension, finger flexion/extension, wrist ulnar/radial deviation. Pt took rest breaks as needed. OT educated pt on purpose of exercises, instructing her to complete each of the exercise throughout the day, increasing reps as tolerated, she verbalized understanding. Post OT tx, pt seated in recliner, call light in reach and all needs met. Education OT Patient Education: Correct positioning, Exercise program, Modified ADL techniques, Progress toward Goal/Update tx plan, Purpose of tx/functional activities Teaching Recipient: Patient Teaching Methods: Discussion Response to Teaching: Verbalize Understanding OT Mcc Goals Mcc Goals Time Frame: Jul 19, 2020 Eating (QC): 6 Oral Hygiene (QC): 6 Toileting Hygiene (QC): 6 Shower/Bathe Self (QC): 4 Upper Body Dressing (QC): 5 Lower Body Dressing (QC): 4 On/Off Footwear (QC): 4 Additional Goals: 1-Demonstrate ADL Tasks, 2-Verbalize Understanding, 3-ImproveStrength/Tang 1=Demonstrate adherence to instructed precautions during ADL tasks. 2=Patient will verbalize/demonstrate understanding of assistive devices/modifications for ADL. 3=Patient will improve strength/tolerance for activity to enable patient to perform ADL's. OT Education/Plan Problem List/Assessment Assessment: Decreased Activ Tolerance, Decreased UE Strength, Impaired I ADL's, Impaired Self-Care Skills Discharge Recommendations Plan/Recommendations: Continue POC Treatment Plan/Plan of Care Patient would benefit from OT for education, treatment and training to promote independence in ADL's, mobility, safety and/or upper extremity function for ADL's. Plan of Care: ADL Retraining, Functional Mobility, UE Funct Exercise/Act Treatment Duration: Jul 19, 2020 Frequency: 5 times per week Estimated Hrs Per Day: .25 hour per day Agreement: Yes Rehab Potential: Fair Time/GCodes Start Time: 13:35 Stop Time: 13:50 Total Time Billed (hr/min): 15 Billed Treatment Time 1, EX WADE ALATORRE OT Jul 05, 2020 14:04
[2020-07-05 16:36] VITALS: BP 110/55
[2020-07-05] MEDS: ENOXAPARIN 40 MG/0.4 ML (LOVENOX) SYR SC SCH (21:25)
[2020-07-06 00:27] VITALS: BP 131/60
[2020-07-06] MEDS: RT-ALBUTEROL INHALER HFA (VENTOLIN HFA) 18 GM IH SCH ×4 (03:39→19:00)
[2020-07-06] MEDS: CEFEPIME INJECTION 1,000 MG in WATER (STERILE) FOR INJECTION 10 ML IV SCH ×2 (04:27→10:53)
[2020-07-06] MEDS: D5W 1000 ML IV SOLUTION 1,000 ML IV SCH ×2 (06:36→13:32)
[2020-07-06] MEDS: dexAMETHasone 6 MG TAB (DECADRON) PO SCH (06:36)
[2020-07-06] MEDS: PANTOPRAZOLE 40 MG (PROTONIX) TAB PO SCH (06:36)
[2020-07-06 08:00] VITALS: BP 118/56
[2020-07-06] MEDS: LEVETIRACETAM 1,000 MG (KEPPRA) TABLET PO SCH ×2 (08:31→20:15)
[2020-07-06] MEDS: PRAMIPEXOLE 0.5 MG TAB (MIRAPEX) PO SCH ×3 (08:31→20:15)
[2020-07-06] MEDS: DULoxetine 30 MG (CYMBALTA) CAP PO SCH (08:32)
[2020-07-06] MEDS: toPIRamate 25 MG (TOPAMAX) TAB PO SCH ×2 (08:32→20:15)
[2020-07-06] MEDS: ASPIRIN E.C. 81 MG (ECOTRIN) TAB PO SCH (08:32)
[2020-07-06] MEDS: OXYBUTYNIN (DITROPAN) 5 MG TAB PO SCH ×3 (08:32→20:15)
[2020-07-06] MEDS: DIVALPROEX EXT RELEASE 500 MG (DEPAKOTE ER) TAB PO SCH ×2 (08:32→20:14)
[2020-07-06 08:39] LABS: BASOPHILS # (AUTO) 0.1 10^3/uL (0.0-0.1); BASOPHILS % (AUTO) 1 % (0-10); EOSINOPHILS % (AUTO) 0 % (0-10); HEMATOCRIT 34 % (35-52); HEMOGLOBIN 11.2 g/dL (11.5-16.0); LYMPHOCYTES % (AUTO) 12 % (12-44); MEAN CORPUSCULAR HEMOGLOBIN 32 pg (25-34); MEAN CORPUSCULAR HGB CONC 33 g/dL (32-36); MEAN CORPUSCULAR VOLUME 98 fL (80-99); MEAN PLATELET VOLUME 10.3 fL (9.0-12.2); MONOCYTES # (AUTO) 1.1 10^3/uL (0.0-1.0); MONOCYTES % (AUTO) 13 % (0-12); NEUTROPHILS # (AUTO) 5.3 10^3/uL (1.8-7.8); NEUTROPHILS % (AUTO) 62 % (42-75); PLATELET COUNT 125 10^3/uL (130-400); WHITE BLOOD COUNT 8.6 10^3/uL (4.3-11.0)
[2020-07-06 08:56] LABS: CHLORIDE 108 MMOL/L (98-107); POTASSIUM 3.5 MMOL/L (3.6-5.0); SODIUM 139 MMOL/L (135-145)
[2020-07-06 08:57] LABS: CALCIUM 8.6 MG/DL (8.5-10.1)
[2020-07-06 08:58] LABS: GLUCOSE 89 MG/DL (70-105)
[2020-07-06 08:59] LABS: CARBON DIOXIDE 22 MMOL/L (21-32)
[2020-07-06 09:01] LABS: PHOSPHORUS 2.5 MG/DL (2.3-4.7)
[2020-07-06 09:02] LABS: CREATININE SERUM 0.81 MG/DL (0.60-1.30); GFR ESTIMATED > 60
[2020-07-06 09:03] LABS: BUN/CREATININE RATIO 15
[2020-07-06 09:04] LABS: MAGNESIUM 2.2 MG/DL (1.6-2.4)
--- NOTE | 2020-07-06 11:37 | Physical Therapy Daily Note ---
PT Daily Note-Current Subjective Patient in bed pre tx, agrees to PT, has no complaints of pain at rest but after ambulation she complains of back pain and says she has a sore throat, nurse notified. Appearance Patient in recliner post tx with nurse call, phone, tray, chair alarm on, legs elevated. Mental Status Patient Orientation: Person, Confused Attachments: IV Transfers SCALE: Activities may be completed with or without assistive devices. 9-Ncugmsozeo-yhrjkwe completes the activity by him/herself with no assistance from a helper. 5-Set-up or Clean-up Assistance-helper sets up or cleans up; patient completes activity. [place] assists only prior to or following the activity. 4-Supervision or Touching Assistance-helper provides verbal cues and/or touching/steadying and/or contact guard assistance as patient completes activity. Assistance may be provided throughout the activity or intermittently. 3-Partial/Moderate Assistance-helper does LESS THAN HALF the effort. [place] lifts, holds or supports trunk or limbs, but provides less than half the effort. 2-Substantial/Maximal Assistance-helper does MORE THAN HALF the effort. [place] lifts or holds trunk or limbs and provides more than half the effort. 0-Jwuwsdbqs-ftntjr does ALL the effort. Patient does none of the effort to complete the activity. Or, the assistance of 2 or more helpers is required for the patient to complete the activity. If activity was not attempted, code reason: 7-Patient Refused. 9-Not Applicable-not attempted and the patient did not perform the activity before the current illness, exacerbation or injury. 10-Not Attempted due to Environmental Limitations-(lack of equipment, weather restraints, etc.). 88-Not Attempted due to Medical Conditions or Safety Concerns. Roll Left & Right (QC): 4 Lying to Sitting/Side of Bed(Q: 4 Sit to Stand (QC): 4 Chair/Ecr-lu-Ubejl Xfer(QC): 4 SBA for supine to sit, CGA for sit to stand Gait Training Distance: 6' Gait Persons Needed: 1 Gait Assistive Device: FWW Patient ambulates to recliner 6' with CGA, very small steps, very shaky Exercises Seated Therapy Exercises: Ankle pumps, Long arc quads Seated Reps: 20 Treatments bed mobility and transfers, ambulation, LE exercise Assessment Current Status: Fair Progress patient is getting out of bed and ambulating a little but she is weak and shaky PT Detention Goals Detention Goals PT Graphic Technician Goals Time Frame: Jul 13, 2020 Roll Left & Right (QC): 5 Sit to Lying (QC): 5 Lying-Sitting on Side/Bed(QC): 5 Sit to Stand (QC): 5 Chair/Tyl-eg-Tkkmx Xfer(QC): 5 Toilet Transfer (QC): 5 Does the Patient Walk: Yes Walk 10 feet (QC): 5 Walk 50ft with 2 Turns (QC): 5 PT Plan Problem List Problem List: Activity Tolerance, Functional Strength, Safety, Balance, Gait, Transfer, Bed Mobility, ROM Treatment/Plan Treatment Plan: Continue Plan of Care Treatment Plan: Bed Mobility, Education, Functional Activity Tang, Functional Strength, Gait, Safety, Therapeutic Exercise, Transfers Treatment Duration: Jul 13, 2020 Frequency: 6 times per week Estimated Hrs Per Day: .25 hour per day Patient and/or Family Agrees t: Yes Safety Risks/Education Patient Education: Gait Training, Transfer Techniques, Correct Positioning Teaching Recipient: Patient, Friend Teaching Methods: Demonstration, Discussion Response to Teaching: Reinforcement Needed Time/GCodes Time In: 1115 Time Out: 1128 Total Billed Treatment Time: 13 Total Billed Treatment 1 visit FA ELIO ROME PT Jul 06, 2020 11:37
--- NOTE | 2020-07-06 12:44 | Progress Note - Hospitalist ---
Subjective HPI/CC On Admission Date Seen by Provider: Jul 06, 2020 Time Seen by Provider: 12:42 Marcela Gibbs is a 70 year old female who presented with fever. She was diagnosed with COVID almost ten days ago. She was diagnosed with Influenza B yesterday. She had a fever at [facility]. She has been confused and altered. She required Ativan and Haldol due to agitation. Upon my examination, she is slightly agitated but is easily redirectable. She is oriented to person and date, but thinks she is still at [facility]. Subjective/Events-last exam Saw patient during bed bath. Complains of being cold and a headache. Objective Exam Vital Signs Vital Signs Date Time Temp Pulse Resp B/P (MAP) Pulse Ox O2 Delivery O2 Flow Rate FiO2 07/06/20 08:39 93 Room Air 07/06/20 08:00 0.00 07/06/20 08:00 36.2 66 20 118/56 (76) Capillary Refill : Less Than 3 SecondsLess Than 3 Seconds General Appearance: No Apparent Distress, Chronically ill, Obese Respiratory: Lungs Clear, No Respiratory Distress Cardiovascular: Regular Rate, Rhythm, No Murmur Gastrointestinal: Normal Bowel Sounds, Non Tender, Soft Results/Procedures Lab Laboratory Tests 07/06/20 08:31 Patient resulted labs reviewed. Imaging: Reviewed Imaging Report Assessment/Plan Assessment and Plan Assess & Plan/Chief Complaint COVID 19 Pneumonia and influenza B -DX 06/21 -Now on room air -Tamiflu, completed course -Decadron, 6 doses so far -CVP -Remdesivir, completed course -MAT protocol Seizure disorder Continue AEDs second phalanx fracture right foot Can be full weight bearing Discussed with [facility] who cannot accept her back at this functional status (SBA with all activity), will continue PT/OT IRU consult placed as well PEG, resolved Obesity, no acute needs; clinically significant DVT prophylaxis: Lovenox Clinical Quality Measures DVT/VTE Risk/Contraindication: Risk Factor Score Per Nursin RFS Level Per Nursing on Admit: 4+=Very High BETTY LEAL MD Jul 06, 2020 12:44
[2020-07-06 15:53] VITALS: BP 131/63
[2020-07-06] MEDS: ENOXAPARIN 40 MG/0.4 ML (LOVENOX) SYR SC SCH (20:15)
[2020-07-06] MEDS: MELATONIN 3 MG TABLET PO PRN (20:15)
[2020-07-06] MEDS: prednisoLONE 1% OPTH (PRED FORTE) 5 ML BTL OU SCH (20:15)
[2020-07-07 00:23] VITALS: BP 128/61
[2020-07-07] MEDS: dexAMETHasone 6 MG TAB (DECADRON) PO SCH (05:59)
[2020-07-07] MEDS: PANTOPRAZOLE 40 MG (PROTONIX) TAB PO SCH (05:59)
[2020-07-07 06:41] LABS: BASOPHILS % (AUTO) 1 % (0-10); EOSINOPHILS % (AUTO) 1 % (0-10); HEMATOCRIT 32 % (35-52); HEMOGLOBIN 10.5 g/dL (11.5-16.0); LYMPHOCYTES # (AUTO) 1.7 10^3/uL (1.0-4.0); LYMPHOCYTES % (AUTO) 25 % (12-44); MEAN CORPUSCULAR HEMOGLOBIN 33 pg (25-34); MEAN CORPUSCULAR HGB CONC 33 g/dL (32-36); MEAN CORPUSCULAR VOLUME 99 fL (80-99); MEAN PLATELET VOLUME 10.6 fL (9.0-12.2); MONOCYTES # (AUTO) 0.9 10^3/uL (0.0-1.0); MONOCYTES % (AUTO) 13 % (0-12); NEUTROPHILS # (AUTO) 3.1 10^3/uL (1.8-7.8); NEUTROPHILS % (AUTO) 46 % (42-75); PLATELET COUNT 137 10^3/uL (130-400); WHITE BLOOD COUNT 6.7 10^3/uL (4.3-11.0)
[2020-07-07 07:00] LABS: CHLORIDE 108 MMOL/L (98-107); POTASSIUM 4.2 MMOL/L (3.6-5.0); SODIUM 139 MMOL/L (135-145)
[2020-07-07 07:01] LABS: CALCIUM 8.6 MG/DL (8.5-10.1)
[2020-07-07 07:02] LABS: GLUCOSE 66 MG/DL (70-105)
[2020-07-07 07:03] LABS: CARBON DIOXIDE 24 MMOL/L (21-32)
[2020-07-07 07:05] LABS: CREATININE SERUM 0.78 MG/DL (0.60-1.30); GFR ESTIMATED > 60; PHOSPHORUS 2.5 MG/DL (2.3-4.7)
[2020-07-07 07:06] LABS: BUN/CREATININE RATIO 18
[2020-07-07 07:08] LABS: MAGNESIUM 2.2 MG/DL (1.6-2.4)
[2020-07-07 07:20] LABS: ATYPICAL LYMPHOCYTES 5 %; BAND NEUTROPHILS 3 %; LYMPHOCYTES % (MANUAL) 34 %; MONOCYTES % (MANUAL) 13 %; MYELOCYTES % 3 %; NEUTROPHILS % (MANUAL) 40 %; NUCLEATED RED BLOOD CELLS 1; PROMYELOCYTES % 1 %
[2020-07-07 07:21] LABS: RBC MORPH NORMAL
[2020-07-07] MEDS: RT-ALBUTEROL INHALER HFA (VENTOLIN HFA) 18 GM IH SCH ×3 (07:49→21:35)
[2020-07-07 08:00] VITALS: BP 105/57
--- NOTE | 2020-07-07 08:39 | Progress Note - Hospitalist ---
Subjective HPI/CC On Admission Date Seen by Provider: Jul 07, 2020 Time Seen by Provider: 08:37 Marcela Gibbs is a 70 year old female who presented with fever. She was diagnosed with COVID almost ten days ago. She was diagnosed with Influenza B yesterday. She had a fever at [facility]. She has been confused and altered. She required Ativan and Haldol due to agitation. Upon my examination, she is slightly agitated but is easily redirectable. She is oriented to person and date, but thinks she is still at [facility]. Subjective/Events-last exam Pt reports doing well today. No complaints. Discussed plan for [facility] to evaluate her therapy notes and see if she can return there. Objective Exam Vital Signs Vital Signs Date Time Temp Pulse Resp B/P (MAP) Pulse Ox O2 Delivery O2 Flow Rate FiO2 07/07/20 08:00 36.4 59 20 105/57 (73) 95 Room Air 07/06/20 18:54 21 07/06/20 08:00 0.00 Capillary Refill : Less Than 3 SecondsLess Than 3 Seconds General Appearance: No Apparent Distress, Chronically ill, Obese Respiratory: Lungs Clear, No Respiratory Distress Cardiovascular: Regular Rate, Rhythm, No Murmur Results/Procedures Lab Laboratory Tests 07/07/20 05:47 Patient resulted labs reviewed. Imaging: Reviewed Imaging Report Assessment/Plan Assessment and Plan Assess & Plan/Chief Complaint COVID 19 Pneumonia and influenza B -DX 06/21 -Now on room air -Tamiflu, completed course -Decadron, 7 doses so far -CVP -Remdesivir, completed course -MAT protocol Seizure disorder Continue AEDs second phalanx fracture right foot Can be full weight bearing Discussed with [facility] who cannot accept her back at this functional status (SBA with all activity), will continue PT/OT IRU consult placed as well in case she needs acute rehab to return to [facility] PEG, resolved Obesity, no acute needs; clinically significant DVT prophylaxis: Lovenox Clinical Quality Measures DVT/VTE Risk/Contraindication: Risk Factor Score Per Nursin RFS Level Per Nursing on Admit: 4+=Very High BETTY LEAL MD Jul 07, 2020 08:39
[2020-07-07] MEDS: LEVETIRACETAM 1,000 MG (KEPPRA) TABLET PO SCH ×2 (09:08→20:33)
[2020-07-07] MEDS: DULoxetine 30 MG (CYMBALTA) CAP PO SCH (09:08)
[2020-07-07] MEDS: DIVALPROEX EXT RELEASE 500 MG (DEPAKOTE ER) TAB PO SCH ×2 (09:08→20:34)
[2020-07-07] MEDS: OXYBUTYNIN (DITROPAN) 5 MG TAB PO SCH ×3 (09:08→20:33)
[2020-07-07] MEDS: ASPIRIN E.C. 81 MG (ECOTRIN) TAB PO SCH (09:09)
[2020-07-07] MEDS: PRAMIPEXOLE 0.5 MG TAB (MIRAPEX) PO SCH ×3 (09:09→20:34)
[2020-07-07] MEDS: toPIRamate 25 MG (TOPAMAX) TAB PO SCH ×2 (09:09→20:34)
[2020-07-07 15:34] VITALS: BP 130/68
[2020-07-07] MEDS: D5W 1000 ML IV SOLUTION 1,000 ML IV SCH (18:08)
[2020-07-07] MEDS: MELATONIN 3 MG TABLET PO PRN (20:34)
[2020-07-07] MEDS: ENOXAPARIN 40 MG/0.4 ML (LOVENOX) SYR SC SCH (20:34)
[2020-07-07 23:58] VITALS: BP 104/51
[2020-07-08] MEDS: ACETAMINOPHEN 500 MG TAB (TYLENOL) PO PRN (05:01)
[2020-07-08] MEDS: PANTOPRAZOLE 40 MG (PROTONIX) TAB PO SCH (05:01)
[2020-07-08] MEDS: dexAMETHasone 6 MG TAB (DECADRON) PO SCH (05:01)
[2020-07-08] MEDS: RT-ALBUTEROL INHALER HFA (VENTOLIN HFA) 18 GM IH SCH (07:23)
[2020-07-08 07:34] LABS: BASOPHILS # (AUTO) 0.1 10^3/uL (0.0-0.1); BASOPHILS % (AUTO) 1 % (0-10); EOSINOPHILS % (AUTO) 0 % (0-10); HEMATOCRIT 35 % (35-52); LYMPHOCYTES # (AUTO) 1.1 10^3/uL (1.0-4.0); LYMPHOCYTES % (AUTO) 16 % (12-44); MEAN CORPUSCULAR HEMOGLOBIN 32 pg (25-34); MEAN CORPUSCULAR HGB CONC 32 g/dL (32-36); MEAN CORPUSCULAR VOLUME 100 fL (80-99); MEAN PLATELET VOLUME 10.5 fL (9.0-12.2); MONOCYTES # (AUTO) 0.7 10^3/uL (0.0-1.0); MONOCYTES % (AUTO) 10 % (0-12); NEUTROPHILS # (AUTO) 3.7 10^3/uL (1.8-7.8); NEUTROPHILS % (AUTO) 55 % (42-75); PLATELET COUNT 176 10^3/uL (130-400); WHITE BLOOD COUNT 6.8 10^3/uL (4.3-11.0)
[2020-07-08 07:36] VITALS: BP 109/56
[2020-07-08 07:52] LABS: CHLORIDE 107 MMOL/L (98-107); POTASSIUM 3.6 MMOL/L (3.6-5.0); SODIUM 139 MMOL/L (135-145)
[2020-07-08 07:53] LABS: CALCIUM 8.8 MG/DL (8.5-10.1)
[2020-07-08 07:54] LABS: GLUCOSE 80 MG/DL (70-105)
[2020-07-08 07:55] LABS: CARBON DIOXIDE 24 MMOL/L (21-32)
[2020-07-08 07:57] LABS: CREATININE SERUM 0.82 MG/DL (0.60-1.30); GFR ESTIMATED > 60; PHOSPHORUS 2.3 MG/DL (2.3-4.7)
[2020-07-08 07:59] LABS: BUN/CREATININE RATIO 16
[2020-07-08 08:00] LABS: MAGNESIUM 2.3 MG/DL (1.6-2.4)
[2020-07-08] MEDS: DIVALPROEX EXT RELEASE 500 MG (DEPAKOTE ER) TAB PO SCH (08:36)
[2020-07-08] MEDS: DULoxetine 30 MG (CYMBALTA) CAP PO SCH (08:36)
[2020-07-08] MEDS: OXYBUTYNIN (DITROPAN) 5 MG TAB PO SCH ×2 (08:36→12:26)
[2020-07-08] MEDS: toPIRamate 25 MG (TOPAMAX) TAB PO SCH (08:36)
[2020-07-08] MEDS: ASPIRIN E.C. 81 MG (ECOTRIN) TAB PO SCH (08:36)
[2020-07-08] MEDS: LEVETIRACETAM 1,000 MG (KEPPRA) TABLET PO SCH (08:36)
[2020-07-08] MEDS: PRAMIPEXOLE 0.5 MG TAB (MIRAPEX) PO SCH ×2 (08:36→12:26)
== END 2020-07-08 14:36 | DRG 177 ==
LOC: EDUNIT# 08:22 → ER 08:24 → ICU 11:39 → 4TH 07-01 10:21
PROVIDERS: ADMIT Internal Medicine; ATTEND Internal Medicine
PROC: XW033E5 Introduction of Remdesivir Anti-infective into Peripheral Vein, Percutaneous Approach, New Technology Group 5 (ICD-10-PCS; principal; 2020-06-30)
PROC: XW13325 Transfusion of Convalescent Plasma (Nonautologous) into Peripheral Vein, Percutaneous Approach, New Technology Group 5 (ICD-10-PCS; 2020-07-03)
DX: U07.1 COVID-19 (principal); J12.82 Pneumonia due to coronavirus disease 2019; J10.01 Influenza due to other identified influenza virus with the same other identified influenza virus pneumonia; J96.00 Acute respiratory failure, unspecified whether with hypoxia or hypercapnia; N17.9 Acute kidney failure, unspecified; E66.9 Obesity, unspecified; Z68.32 Body mass index [BMI] 32.0-32.9, adult; E78.00 Pure hypercholesterolemia, unspecified; I12.9 Hypertensive chronic kidney disease with stage 1 through stage 4 chronic kidney disease, or unspecified chronic kidney disease; N18.9 Chronic kidney disease, unspecified; I25.10 Atherosclerotic heart disease of native coronary artery without angina pectoris; G25.81 Restless legs syndrome; F03.90 Unspecified dementia, unspecified severity, without behavioral disturbance, psychotic disturbance, mood disturbance, and anxiety; G40.909 Epilepsy, unspecified, not intractable, without status epilepticus; K21.9 Gastro-esophageal reflux disease without esophagitis; M19.91 Primary osteoarthritis, unspecified site; H54.3 Unqualified visual loss, both eyes; F31.9 Bipolar disorder, unspecified; S92.325A Nondisplaced fracture of second metatarsal bone, left foot, initial encounter for closed fracture; Z88.0 Allergy status to penicillin; Z87.891 Personal history of nicotine dependence; Z87.820 Personal history of traumatic brain injury; Z79.82 Long term (current) use of aspirin; Z79.52 Long term (current) use of systemic steroids; Z73.0 Burn-out
CPT/HCPCS: 36415; 51702; 71045; 76937; 80048; 80053; 81000; 83605; 83735; 84100; 84145; 85007; 85025; 85027; 85379; 85610; 85730; 86141; 86900; 86901; 87040; 87077; 87088; 87186; 93970; 94640; 94760; 96361; 96374; 96375

== ENCOUNTER 2020-07-08 10:56 | Inpatient (IN) | payer MEDICARE, BC, MEDICAID ==
[~2020-07-08] VITALS: Ht 167 cm; Wt 88.0 kg
[~2020-07-08 10:56] MED LIST changes: +CYAN1TAB45 PO; +METH2.5T PO
[2020-07-08] MEDS ORDERED: FLEET ENEMA ADULT 1 EA BTL PR PRN (11:00)
[2020-07-08] MEDS ORDERED: guaiFENesin/CODEINE (ROBITUSSIN AC) 10ML UDC PO PRN (11:00)
[2020-07-08] MEDS ORDERED: diphenhydrAMINE 25 MG TAB (BENADRYL) PO PRN (11:00)
[2020-07-08] MEDS ORDERED: BISACODYL 10 MG SUPP (DULCOLAX) PR PRN (11:00)
[2020-07-08] MEDS ORDERED: CALCIUM CARBONATE 500 MG (TUMS) TAB.CHEW PO PRN (11:00)
[2020-07-08] MEDS ORDERED: LOPERAMIDE 2 MG (IMODIUM) TABLET PO PRN (11:00)
[2020-07-08] MEDS ORDERED: ONDANSETRON 4 MG (ZOFRAN) ORAL DISSOLVE TAB PO PRN (11:00)
[2020-07-08] MEDS ORDERED: DOCUSATE SODIUM 100 MG (COLACE) CAP PO PRN (11:00)
--- NOTE | 2020-07-08 14:10 | NUR ---
Pt admitted to room 222, with an admitting diagnosis of S/P Pneumonia/Covid, from 4th floor via w/c, accompanied by PT/OT. [place] introduced to surroundings, call light, bed controls, phone, TV, temperature control, lights, meal times, smoking policy, visitor policy, side rail policy, bathrooms and showers. Patient Rights given provided to patient in the handbook. [place] acknowledges understanding that [facility] is not responsible for the loss or damage to any personal effects or valuables that are kept in the patients posession during their hospitalization. The following Patient Care Plans were discussed with the pt: Discharge Planning, Self care deficit, Impaired Mobility, Potential for fall/injury, alteration in air exchange. [place] acknowledges understanding of Interdisciplinary Patient Education. Patient and/or family were informed about the Rapid Response Team and its purpose. Patient received Patient Rights Booklet, which includes Privacy Act Statement and Data Collection Information Summary.
--- NOTE | 2020-07-08 15:11 | Physical Therapy Evaluation ---
PT Evaluation-General Medical Diagnosis Admission Date Jul 08, 2020 at 14:10 Medical Diagnosis: COVID+, influenza B, sepsis Onset Date: Jun 30, 2020 Therapy Diagnosis Therapy Diagnosis: impaired mobility, strength, endurance Height/Weight Height (Feet): 5 Height (Inches): 4.00 Weight (Pounds): 166 Weight (Ounces): 0.0 Referral Physician: Lydia Montiel DO Reason for Referral: Evaluation/Treatment Medical History Pertinent Medical History: Arthritis, CAD, Dementia, GERD, HTN, TBI Additional Medical History seizure disorder, bipolar, vertigo Reviewed History: Yes Social History Home: Assisted Living Entry Into Home: Level Entry Prior Prior Level of Function SCALE: Activities may be completed with or without assistive devices. 6-Pfxzytrqxh-bptkcfk completes the activity by him/herself with no assistance from a helper. 5-Set-up or Clean-up Assistance-helper sets up or cleans up; patient completes activity. [place] assists only prior to or following the activity. 4-Supervision or Touching Assistance-helper provides verbal cues and/or touching/steadying and/or contact guard assistance as patient completes activity. Assistance may be provided throughout the activity or intermittently. 3-Partial/Moderate Assistance-helper does LESS THAN HALF the effort. [place] lifts, holds or supports trunk or limbs, but provides less than half the effort. 2-Substantial/Maximal Assistance-helper does MORE THAN HALF the effort. [place] lifts or holds trunk or limbs and provides more than half the effort. 9-Lbtsjnymf-qhyofv does ALL the effort. Patient does none of the effort to com plete the activity. Or, the assistance of 2 or more helpers is required for the patient to complete the activity. If activity was not attempted, code reason: 7-Patient Refused. 9-Not Applicable-not attempted and the patient did not perform the activity before the current illness, exacerbation or injury. 10-Not Attempted due to Environmental Limitations-(lack of equipment, weather restraints, etc.). 88-Not Attempted due to Medical Conditions or Safety Concerns. Bed Mobility: 5 Transfers (B,C,W/C): 5 Gait: 5 Indoor Mobility (Ambulation): Independent Prior Devices Use: Walker PT Evaluation-Current Subjective Patient in recliner pre tx, agrees to PT, has no complaints of pain. Pt/Family Goals "to get stronger" Objective Patient Orientation: Person, Confused Attachments: IV ROM/Strength ROM Lower Extremities WNL Strength Lower Extremities 4/5 gross BLE Sensory Vision: Wears Glasses Hearing: Functional Sensation Right Lower Extremit: Intact Sensation Left Lower Extremity: Intact Transfers Roll Left & Right (QC): 4 Sit to Lying (QC): 3 Lying to Sitting/Side of Bed(Q: 3 Sit to Stand (QC): 4 Chair/Mdu-ay-Caynr Xfer(QC): 4 Toilet Transfer (QC): 4 Car Transfer (QC): 3 Patient performs bed mobility with SBA, supine <-> sit min assist, sit <-> stand and transfers with CGA, car transfer min assist. Patient needs cues for safety and hand placement with almost every transfer. She has poor safety awareness and needs close supervision, she will sometimes try to get up on her own. Gait Does the Patient Walk?: Yes Mode of Locomotion: Walk Anticipated Mode of Locomotion: Walk Walk 10 feet (QC): 4 Walk 50 ft with 2 Turns(QC): 88 Walk 150 ft (QC): 88 Walking 10ft/uneven surface-QC: 88 Distance: 20'x2, 10' Gait Assistive Device: FWW Comments/Gait Description slow ambulation Wheelchair Training Wheel 50 ft with 2 turns (QC): 1 Wheel 150 ft (QC): 1 Type of Wheelchair: Manual Stairs 1 Step (curb) (QC): 88 4 Steps (QC): 88 12 Steps (QC): 88 Balance Sitting Static: Normal Sitting Dynamic: Normal Standing Static: Fair Standing Dynamic: Poor Picking up an Object (QC): 88 Treatment PT performed bed mobility and transfers, ambulation, WC mobility, assist with UE activity, OT worked on UE activity, UE positioning and safety during activity, dressing Assessment/Needs Patient has impaired mobility, strength, endurance, poor safety awareness, is v cody confused. Patient in recliner post tx with nurse call, phone, tray, all needs met, chair alarm on. Rehab Potential: Guarded PT Short Term Goals Short Term Goals Time Frame: Jul 15, 2020 Roll Left & Right: 6 Sit to lyin Lying to sitting on side of be: 4 Sit to stand: 4 Chair/ozh-vg-ydlrc transfer: 4 Walk 10 feet: 4 Walk 50 feet with two turns: 4 PT Mcc Goals Cyber Software Engineer Goals PT Mcc Goals Time Frame: Jul 29, 2020 Roll Left & Right (QC): 6 Sit to Lying (QC): 6 Lying-Sitting on Side/Bed(QC): 6 Sit to Stand (QC): 5 Chair/Hjo-fj-Bxpnf Xfer(QC): 5 Toilet Transfer (QC): 5 Car Transfer (QC): 5 Does the Patient Walk: Yes Walk 10 feet (QC): 5 Walk 50ft with 2 Turns (QC): 5 Walk 150 ft (QC): 88 Walking 10ft on Uneven Surface: 4 1 Step (curb) (QC): 88 4 Steps (QC): 88 12 Steps (QC): 88 Picking up an Object (QC): 88 Wheel 50 feet with 2 turns (QC: 4 Wheel 150 feet: 4 PT Plan Problem List Problem List: Activity Tolerance, Functional Strength, Safety, Balance, Gait, Transfer, Bed Mobility, ROM Treatment/Plan Treatment Plan: Continue Plan of Care Treatment Plan: Bed Mobility, Education, Functional Activity Tang, Functional Strength, Group Therapy, Gait, Safety, Therapeutic Exercise, Transfers Treatment Duration: Jul 15, 2020 Frequency: Modified Program (IRF) Estimated Hrs Per Day: 1 hour per day Patient and/or Family Agrees t: Yes Due to a covid -19 viral infection, the patient has deficits that warrant inpatient Acute Rehab. The patient will clearly benefit from intensive PT and OT, however, due to patient's observed endurance and therapy considerations, he may not be able to tolerate the full 3 hours of scheduled therapy. Therefore, he will be scheduled for as much therapy as he can tolerate with intentional rest breaks, shortened sessions, including providing therapy across 6 to 7 days. As the patient tolerates, the intensity, frequency, and duration of his therapy program will be increased. Safety Risks/Education Patient Education: Gait Training, Transfer Techniques, Correct Positioning, W/C Management, Safety Issues Teaching Recipient: Patient Teaching Methods: Demonstration, Discussion Response to Teaching: Reinforcement Needed Discharge Recommendations Plan Patient will perform bed mobility and transfer training, balance and endurance training, functional strengthening, gait training, and education, to improve functional mobility and independence at home. Therapy Discharge Recommendati: 24 Hour Supervision Time/GCodes Time In: 1405 Time Out: 1515 Total Billed Treatment Time: 60 Total Billed Treatment 1 visit EVM 10' FA 50' PT eval from [id number], OT eval from [id number], [id number] co-treat ELIO PEREA PT Jul 08, 2020 15:11
--- NOTE | 2020-07-08 15:13 | NUR ---
MED REC WAS COMPLETED ON 07-01-2020 WHEN THE PT WAS ON 4TH FLOOR- PLEASE SEE MY NOTE FROM THAT DATE FOR MORE INFORMATION
--- NOTE | 2020-07-08 16:14 | Occupational Therapy Eval ---
OT Evaluation-General/PLF Medical Diagnosis Admission Date Jul 08, 2020 at 14:10 Medical Diagnosis: COVID+, influenza B, sepsis Onset Date: Jun 30, 2020 Therapy Diagnosis Therapy Diagnosis: Weakness Height/Weight Height (Feet): 5 Height (Inches): 4.00 Weight (Pounds): 166 Weight (Ounces): 0.0 Precautions Precautions/Isolations: Standard Precautions Safety Interventions: Bed Exit Alarm, Reorient-Attempt Weight Bear Status Weight Bearing Restriction: Weight Bearing/Tolerated Referral Physician: Lydia Montiel DO Referral Reason: Activity Tolerance, Self Care, Evaluation/Treatment, Strengthening/ROM Medical History Pertinent Medical History: Arthritis, CAD, Dementia, GERD, HTN, TBI Current History Pt. lives in [facility], an assisted living. She recently had the Covid virus, and then influenza B. She was admitted with fever on 06-30-20. Reviewed History: Yes Social History Home: Assisted Living Current Living Status: Entry Into Home: Level Entry ADL-Prior Level of Function SCALE: Activities may be completed with or without assistive devices. 7-Vipkcnxcit-tmaruol completes the activity by him/herself with no assistance from a helper. 5-Set-up or Clean-up Assistance-helper sets up or cleans up; patient completes activity. [place] assists only prior to or following the activity. 4-Supervision or Touching Assistance-helper provides verbal cues and/or touching/steadying and/or contact guard assistance as patient completes activity. Assistance may be provided throughout the activity or intermittently. 3-Partial/Moderate Assistance-helper does LESS THAN HALF the effort. [place] lifts, holds or supports trunk or limbs, but provides less than half the effort. 2-Substantial/Maximal Assistance-helper does MORE THAN HALF the effort. [place] lifts or holds trunk or limbs and provides more than half the effort. 3-Ubittrfrb-rdmjkx does ALL the effort. Patient does none of the effort to complete the activity. Or, the assistance of 2 or more helpers is required for the patient to complete the activity. If activity was not attempted, code reason: 7-Patient Refused. 9-Not Applicable-not attempted and the patient did not perform the activity before the current illness, exacerbation or injury. 10-Not Attempted due to Environmental Limitations-(lack of equipment, weather restraints, etc.). 88-Not Attempted due to Medical Conditions or Safety Concerns. ADL PLOF Comments Pt. indicates at beginning of treatment that she is independent at her assisted living with bathing/dressing. She also indicates that she has a walker and wheelchair, and switches between the two. Self Care: Unknown Functional Cognition: Unknown OT Current Status Subjective Pt. does not indicate pain. Mental Status/Objective Patient Orientation: Confused Current Upper Extremity ROM Pt. is able to flex bilateral UE to approximately 100 degrees at shoulder level. Upper Extremity Strength 3/5 bilateral UE within available ranges. ADL-Treatment Eating (QC): 4 Oral Hygiene (QC): 7 Shower/Bathe Self (QC): 7 (Pt. states that she does not feel "up to" a shower at this time, but will complete in a.m.) Upper Body Dressing (QC): 88 Lower Body Dressing (QC): 88 On/Off Footwear (QC): 2 Toileting Hygiene (QC): 7 Other Treatments OT/PT completed co-treatment due to skilled need of two therapists. OT attempte d to assess cognition, visual spatial skills, UE movement, and ADLs. PT assessed mobility and transfers. Pt. was slightly confused at beginning of treatment, but became progressively worse throughout treatment. This was indicated to nursing. Pt. practices car transfer, but then declines to get out of car. She is given visual perceptual task, but is unable to follow cues after multiple attempts, and is unable to complete the task. Pt. declines needing to use the bathroom. Indicates that she wants a red slushy, but agrees to drink diet sprite instead. Pt. declines showering, and does not have street clothing present at this time. Pt. is able to stand with min assist, and ambulate with walker with min assist, but requires re-direction and wheelchair follow. She demonstrates poor safety awareness at times, and attempted to stand from wheelchair without walker, and without brakes on. Pt. requires multiple cues and re-direction. Pt. transferred to chair in room, with all needs met and with chair alarm set. Nursing notified she is back in room. Education OT Patient Education: Correct positioning, Modified ADL techniques, Progress toward Goal/Update tx plan, Purpose of tx/functional activities, Reviewed precautions, Rehab process, Transfer techniques Teaching Recipient: Patient Teaching Methods: Demonstration, Discussion Response to Teaching: Reinforcement Needed OT Short Term Goals Short Term Goals Time Frame: Jul 15, 2020 Eatin Oral hygiene: 3 Toileting hygiene: 3 Shower/bathe self: 3 Upper body dressin Lower body dressin Putting on/taking off footwear: 3 OT [employer] Goals Alf Goals Time Frame: Jul 29, 2020 Eating (QC): 6 Oral Hygiene (QC): 6 Toileting Hygiene (QC): 6 Shower/Bathe Self (QC): 4 Upper Body Dressing (QC): 5 Lower Body Dressing (QC): 4 On/Off Footwear (QC): 5 Additional Goals: 1-Demonstrate ADL Tasks, 2-Verbalize Understanding, 3-ImproveStrength/Tang 1=Demonstrate adherence to instructed precautions during ADL tasks. 2=Patient will verbalize/demonstrate understanding of assistive devices/modifications for ADL. 3=Patient will improve strength/tolerance for activity to enable patient to perf orm ADL's. OT Education/Plan Problem List/Assessment Assessment: Decreased Activ Tolerance, Decreased Safety Aware, Decreased UE Strength, Dependent Transfers, Impaired Bed Mobility, Impaired Cognition, Impaired Funct Balance, Impaired I ADL's, Impaired Self-Care Skills Discharge Recommendations Plan/Recommendations: Continue POC Therapy Discharge Recommendati: Post Acute OT Treatment Plan/Plan of Care Treatment,Training & Education: Yes Patient would benefit from OT for education, treatment and training to promote independence in ADL's, mobility, safety and/or upper extremity function for ADL's. Plan of Care: ADL Retraining, Functional Mobility, Group Exercise/Act as Ind, UE Funct Exercise/Act Treatment Duration: Jul 29, 2020 Frequency: At least 5 of 7 days/Wk (IRF) Estimated Hrs Per Day: Other (Due to a Covid-19 viral infection, the patient has deficits that warrant inpatient Acute Rehab. The patient will clearly benefit from intensive PT and OT, however, due to patient's observed endurance and therapy considerations, she may not be able to to tolerate the full 3 hours of scheduled therapy. Therefore, she will be scheduled for as much therapy as she can tolerate with intentional rest breaks, shortened sessions, including providing therapy across 6 to 7 days. As the patient tolerates, the intensity, frequency, and duration of her therapy program will be increased.) Agreement: Yes Rehab Potential: Fair Time/GCodes Start Time: 14:05 Stop Time: 15:15 Total Time Billed (hr/min): 60 Billed Treatment Time [id number] PT eval, no charge [id number] 1, EVH x 10minutes [id number] ADL x 15minutes, FA x 35minutes. Co-treatment with PT. Please see above note for designated roles. FERNANDA HEBERT OT Jul 08, 2020 16:14
[2020-07-08 18:00] VITALS: BP 132/75
--- NOTE | 2020-07-08 18:25 | PM&R Post Admission Assessment ---
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 Patient feels much better and is ready to get stronger in order to return back to [place]. Patient uses walker most of the time at home. Denies pain. Reports constipation. Reviewed ICU course. Patient was admitted to the ARU during this COVID-19 emergency. The ARU is the best and most appropriate post-acute care setting for this patient at this current time. Patient meets IRF admission criteria, however will be unable to tolerate 3 hours of therapy/5 days per week. Provide specific plan, such as: This patients individualized intensive rehabilitation plan is to receive 2 hours of therapy per day, by receiving 1 hour of PT and 1 hour of OT 5 out of 7 days per the patients week. As an interdisciplinary team, we will discuss this patients ability to tolerate an increase in the intensity of therapy to be provided throughout the patients stay. Past Bzdqczx-Ncouhl-Fwavmp Hx Past Med/Social Hx: Reviewed Nursing Past Med/Soc Hx, Reviewed and Corrections made Patient Social History Marrital Status: single Employed/Student: retired Alcohol Use: Denies Use Smoking Status: Former Smoker Former Smoker, Quit: Jul 05, 2013 Type Used: Cigarettes 2nd Hand Smoke Exposure: Yes Recent Hopitalizations: No Immunizations Up To Date Tetanus Booster (TDap): Unknown Pediatric: No Date of Pneumonia Vaccine: Apr 07, 2018 Date of Influenza Vaccine: Feb 10, 2020 Seasonal Allergies Seasonal Allergies: No Past Medical History Surgeries: Gallbladder, Lumpectomy Respiratory: Chronic Bronchitis Currently Using CPAP: No Cardiac: Chronic Edema/Swelling, Coronary Artery Disease, High Cholesterol, Hypertension, Rheumatic Fever Neurological: Concussion, Dementia, Seizure Disorder, Traumatic Brain Injury, Vertigo Reproductive: No Sexually Transmitted Disease: No HIV/AIDS: No Female Reproductive Disorders: Denies Gastrointestinal: Gastroesophageal Reflux, Chronic Constipation, Chronic Diarrhea, Gall Bladder Disease, Irritable Bowel Musculoskeletal: Arthritis Loss of Vision: Bilateral Hearing Impairment: Denies Psychosocial: Sleep Difficulties, Bipolar Skin/Integumentary: Psoriasis History of Blood Disorders: No Adverse Reaction to Blood Mckoy: No Family History Cancer 03 FATHER (PANCREATIC CANCER) 09 BROTHER ( AT AGE 10) Family history: Cardiovascular disease 03 MOTHER Family history: Diabetes mellitus 03 MOTHER Heart disease 03 MOTHER No Pertinent Family Hx Prior Level of Function Bed Mobility: 5 Transfers: 5 Gait: 5 Indoor Mobility (Ambulation): Independent Prior Devices Use: Walker Self Care: Unknown Functional Cognition: Unknown Current Level of Fuctioning Roll Left to Right: 4 Sit to Lyin Lying to Sitting/Side of Bed: 3 Sit to Stand: 4 Chair/Iyw-qw-Zdspx Xfer: 4 Car Transfer: 3 Does the Patient Walk: Yes Mode of Locomotion: Walk Anticipated Mode of Locomotion: Walk Walk 10 feet: 4 Walk 50 ft with 2 Turns: 88 Walk 150 ft: 88 Walking 10ft on uneven surface: 88 Gait Assistive Device: FWW Wheel 50 ft with 2 turns: 1 Wheel 150 ft: 1 Type of Wheelchair: Manual 1 Step (curb): 88 4 Steps: 88 12 Steps: 88 Picking up an Object: 88 Eatin Oral Hygiene: 7 Shower/Bathe Self: 7 (Pt. states that she does not feel "up to" a shower at this time, but will complete in a.m.) Upper Body Dressin Lower Body Dressin On/Off Footwear: 2 Toileting Hygiene: 7 PM&R Allergy/Meds/Data Review Allergies Coded Allergies: Penicillins (Verified Allergy, Mild, 07/22/13) latex (Verified Allergy, Mild, 07/22/13) Home Medications Scheduled Ascorbic Acid (Vitamin C), 1,000 MG PO DAILY, (Reported) Aspirin (Aspirin EC), 81 MG PO DAILY, (Reported) Clobetasol Propionate (Clobetasol Propionate), 1 APPLIC TOP Q72H, (Reported) Clobetasol Propionate (Clobetasol Propionate), 1 APPLIC TP BID, (Reported) Divalproex Sodium (Depakote ER), 1,000 MG PO BID, (Reported) Duloxetine HCl (Cymbalta), 60 MG PO DAILY, (Reported) Furosemide (Furosemide), 80 MG PO DAILY, (Reported) Levetiracetam (Levetiracetam), 1,000 MG PO BID, (Reported) Melatonin (Melatonin), 3 MG PO HS, (Reported) Meloxicam (Meloxicam), 15 MG PO DAILY, (Reported) Methotrexate Sodium (Methotrexate), 10 MG PO MON, (Reported) Oxybutynin Chloride (Oxybutynin Chloride ER), 15 MG PO HS, (Reported) Pantoprazole Sodium (Pantoprazole Sodium), 40 MG PO DAILY, (Reported) Pramipexole Di-HCl (Pramipexole Dihydrochloride), 0.5 MG PO TID, (Reported) Prednisolone Acetate (Prednisolone Acetate), 1 DROP OU Q48H, (Reported) Quetiapine Fumarate (Quetiapine Fumarate), 50 MG PO BID, (Reported) Quetiapine Fumarate (Quetiapine Fumarate), 100 MG PO HS, (Reported) Topiramate (Topiramate), 50 MG PO BID, (Reported) Vitamin E (Dl,Tocopheryl Acet) (Vitamin E), 400 UNIT PO DAILY, (Reported) Scheduled PRN Acetaminophen (Tylenol), 650 MG PO Q6H PRN for PAIN-MILD (1-4), (Reported) Diphenhydramine HCl (Diphenhydramine HCl), 50 MG PO Q6H PRN for ABX REACTION, (Reported) Lactulose (Lactulose), 30 ML PO DAILY PRN for CONSTIPATION-3RD LINE, (Reported) Polyethylene Glycol 3350 (Miralax), 17 GM PO DAILY PRN for CONSTIPATION-2ND LINE, (Reported) Current Medications Current Medications Reviewed Review of Systems Constitutional: see HPI, weakness Respiratory: cough, dyspnea on exertion Gastrointestinal: constipation Physical Exam Physical Exam Vital Signs Capillary Refill : Height, Weight, BMI Height: 5'4.00" Weight: 166lbs. 0.0oz. 75.960571sf; 31.00 BMI Method:Stated General Appearance: No Apparent Distress, WD/WN, Chronically ill Eyes: Bilateral Eye Normal Inspection, Bilateral Eye PERRL HEENT: PERRL/EOMI, Normal ENT Inspection, Pharynx Normal Neck: Full Range of Motion, Normal Inspection, Non Tender, Supple, Carotid Bruit Respiratory: Chest Non Tender, Lungs Clear, No Accessory Muscle Use, No Respiratory Distress, Decreased Breath Sounds Cardiovascular: Regular Rate, Rhythm, No Edema, No Gallop, No JVD, No Murmur, Normal Peripheral Pulses Gastrointestinal: Normal Bowel Sounds, No Organomegaly, No Pulsatile Mass, Non Tender, Soft Back: Normal Inspection, No CVA Tenderness, No Vertebral Tenderness Extremity: Normal Capillary Refill, Normal Inspection, Normal Range of Motion, Non Tender, No Calf Tenderness, No Pedal Edema Neurologic/Psychiatric: Alert, Oriented x3, No Motor/Sensory Deficits, Normal Mood/Affect, Motor Weakness (3/5 strength lower extremities and 4/5 strength upper extremities) Skin: Normal Color, Warm/Dry Lymphatic: No Adenopathy PM&R Medical Assessment & Plan REHAB/MEDICAL ASSESSMENT AND PLAN: REHAB IMPAIRMENT GROUP: Critical illness myopathy ETIOLOGIC DIAGNOSIS: Critical illness myopathy The comorbidities that impact the patients function and/or functional outcome by: dementia, seizure d/o, advanced age, CAD, h/o TBI REHAB PLAN: The patient is being admitted to our comprehensive inpatient rehabilitation facility and can tolerate the intensity of service consisting of at least: 180 minutes of therapy a day, 5 out of 7 days a week Rehab treatment will consist of: PT OT will focus on regaining ADL's and ambulatory skills in order to return back to [place] with use of AD and teaching energy conservation. The patient/family has a good understanding of our discharge process and will benefit from an interdisciplinary inpatient rehabilitation program. The patient has potential to make improvement and is in need of at least two of the following multidisciplinary therapies including but not limited to physical, occupational, speech, and prosthetics and orthotics. Additionally the patient will need services from respiratory, nutritional services, wound care, psychology, etc. (Customize this to each patient). Given the patients complex condition and risk of further medical complications, rehabilitation services cannot be safely or effectively provided at a lower level of care such as a fci facility. BARRIERS TO DISCHARGE: Dementia and severe weakness ESTIMATED LOS: 10 days DISPOSITION: [place] RELEVANT CHANGES SINCE PREADMISSION SCREENING: I have compared the patients medical and functional status at the time of the preadmission screening and there are: no changes PROGNOSIS: Good REHABILITATION GOALS: 1. PT OT will focus on regaining ADL's and ambulatory skills in order to return back to [place] with use of AD and teaching energy conservation. All the above goals were reviewed with the patient and he/she is in agreement. By signing this document, I acknowledge that I have personally performed a full physical examination on this patient within 24 hours of admission to this inpatient rehabilitation facility and have determined the patient to be able to tolerate the above course of treatment at an intensive level for a reasonable period of time. I will be completing a detailed individualized Plan of Care for this patient by day #4 of the patients stay based upon the Preadmission Screen, the Post-Admission Evaluation, and the therapy evaluations. Admission Dx/Comorbidities: (1) Myopathy ICD Codes: G72.9 - Myopathy, unspecified (2) Pneumonia due to COVID-19 virus Status: Acute ICD Codes: U07.1 - COVID-19; J12.89 - Other viral pneumonia (3) Acute kidney injury superimposed on chronic kidney disease Status: Acute ICD Codes: N17.9 - Acute kidney failure, unspecified; N18.9 - Chronic kidney disease, unspecified (4) Seizure disorder Status: Chronic ICD Codes: G40.909 - Epilepsy, unspecified, not intractable, without status epilepticus (5) Influenza B Status: Acute ICD Codes: J10.1 - Influenza due to other identified influenza virus with other respiratory manifestations (6) Altered mental status Status: Acute ICD Codes: R41.82 - Altered mental status, unspecified (7) Hypotension Status: Acute ICD Codes: I95.9 - Hypotension, unspecified (8) Hypoglycemia Status: Acute ICD Codes: E16.2 - Hypoglycemia, unspecified (9) History of traumatic brain injury Status: Chronic ICD Codes: Z87.820 - Personal history of traumatic brain injury Assessment/Plan Assessment and Plan Assess & Plan/Chief Complaint Assessment: 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 PNA s/p Influenza B h/o TBI Seizures Dementia CAD HTN HLP Plan: Monitor seizures Home meds O2 IRF protocol DADA SANDOVAL DO Jul 08, 2020 18:25
[2020-07-08] MEDS ORDERED: diphenhydrAMINE 50 MG/ML INJ (BENADRYL) IM PRN (18:30)
[2020-07-08] MEDS ORDERED: ONDANSETRON 4 MG/2 ML (SDV) Z0FRAN IV PRN (18:30)
[2020-07-08] MEDS ORDERED: MILK OF MAGNESIA 400 MG/5 ML 30 ML UDC PO PRN (18:30)
[2020-07-08] MEDS ORDERED: ANTACID SUSP 30 ML UDC (MYLANTA) PO PRN (18:30)
[2020-07-08] MEDS ORDERED: MELATONIN 3 MG TABLET PO PRN (18:30)
--- NOTE | 2020-07-08 19:08 | NUR ---
Bedside report received from JULIANNA WHITE, assume care of pt
[2020-07-08 19:12] VITALS: BP 128/78
[2020-07-08 20:15] VITALS: BP 129/62
[2020-07-08] MEDS: PRAMIPEXOLE 0.5 MG TAB (MIRAPEX) PO SCH (20:18)
[2020-07-08] MEDS: toPIRamate 25 MG (TOPAMAX) TAB PO SCH (20:19)
[2020-07-08] MEDS: LEVETIRACETAM 1,000 MG (KEPPRA) TABLET PO SCH (20:19)
[2020-07-08] MEDS: SENNA W/DOCUSATE (SENOKOT S) TABLET PO SCH (20:19)
[2020-07-08] MEDS: DOCUSATE SODIUM 100 MG (COLACE) CAP PO SCH (20:19)
[2020-07-08] MEDS: RT-ALBUTEROL INHALER HFA (VENTOLIN HFA) 18 GM IH SCH (20:20)
[2020-07-08] MEDS: DIVALPROEX EXT RELEASE 500 MG (DEPAKOTE ER) TAB PO SCH (20:20)
[2020-07-08] MEDS: OXYBUTYNIN (DITROPAN) 5 MG TAB PO SCH (20:22)
--- NOTE | 2020-07-08 20:22 | NUR ---
Pt took all meds without difficulty including laxatives, asked did pt wish to go back to bed stated no she liked being in the chair.
[2020-07-08] MEDS: polyethylene glycoL POWDER 17 GM (MIRALAX) PACK PO SCH (20:23)
[2020-07-08] MEDS: ENOXAPARIN 40 MG/0.4 ML (LOVENOX) SYR SC SCH (20:28)
[2020-07-09] MEDS: BENZONATATE 100 MG (TESSALON) CAPSULE PO PRN ×2 (01:09→09:09)
[2020-07-09] MEDS: ACETAMINOPHEN 500 MG TAB (TYLENOL) PO PRN ×2 (01:10→15:31)
--- NOTE | 2020-07-09 01:10 | NUR ---
Remains up in the recliner, c/o pain in Lt foot, pain level 3/10 & a cough, Tylenol 500mg & Tessalon Perles 100mg given
--- NOTE | 2020-07-09 01:50 | NUR ---
Resting quietly in bed, pain level 0/10 on CNPI SCALE
[2020-07-09 05:31] VITALS: BP 160/71
[2020-07-09 05:31] LABS: BASOPHILS # (AUTO) 0.1 10^3/uL (0.0-0.1); BASOPHILS % (AUTO) 1 % (0-10); EOSINOPHILS # (AUTO) 0.1 10^3/uL (0.0-0.3); EOSINOPHILS % (AUTO) 1 % (0-10); HEMATOCRIT 33 % (35-52); HEMOGLOBIN 10.9 g/dL (11.5-16.0); LYMPHOCYTES # (AUTO) 2.2 10^3/uL (1.0-4.0); LYMPHOCYTES % (AUTO) 24 % (12-44); MEAN CORPUSCULAR HEMOGLOBIN 32 pg (25-34); MEAN CORPUSCULAR HGB CONC 33 g/dL (32-36); MEAN CORPUSCULAR VOLUME 98 fL (80-99); MEAN PLATELET VOLUME 11.4 fL (9.0-12.2); MONOCYTES # (AUTO) 1.3 10^3/uL (0.0-1.0); MONOCYTES % (AUTO) 14 % (0-12); NEUTROPHILS # (AUTO) 4.1 10^3/uL (1.8-7.8); NEUTROPHILS % (AUTO) 45 % (42-75); PLATELET COUNT 152 10^3/uL (130-400); WHITE BLOOD COUNT 9.2 10^3/uL (4.3-11.0)
[2020-07-09 05:36] LABS: ALBUMIN 2.7 GM/DL (3.2-4.5)
[2020-07-09 05:37] LABS: CHLORIDE 104 MMOL/L (98-107); POTASSIUM 4.3 MMOL/L (3.6-5.0); SODIUM 136 MMOL/L (135-145)
[2020-07-09 05:38] LABS: CALCIUM 8.6 MG/DL (8.5-10.1)
[2020-07-09 05:39] LABS: GLUCOSE 72 MG/DL (70-105); TOTAL PROTEIN 5.9 GM/DL (6.4-8.2)
[2020-07-09 05:40] LABS: CARBON DIOXIDE 25 MMOL/L (21-32)
[2020-07-09 05:41] LABS: BILIRUBIN,TOTAL 0.5 MG/DL (0.1-1.0)
[2020-07-09 05:42] LABS: ALKALINE PHOSPHATASE 111 U/L (40-136)
[2020-07-09 05:43] LABS: CREATININE SERUM 0.77 MG/DL (0.60-1.30); GFR ESTIMATED > 60
[2020-07-09 05:44] LABS: BUN/CREATININE RATIO 17
[2020-07-09 05:46] LABS: ALANINE AMINOTRANSFERASE 14 U/L (0-55)
[2020-07-09 06:16] LABS: ATYPICAL LYMPHOCYTES 8 %; LYMPHOCYTES % (MANUAL) 24 %; MONOCYTES % (MANUAL) 16 %; NEUTROPHILS % (MANUAL) 52 %; RBC MORPH NORMAL
[2020-07-09] MEDS: PANTOPRAZOLE 40 MG (PROTONIX) TAB PO SCH (06:32)
[2020-07-09] MEDS: RT-ALBUTEROL INHALER HFA (VENTOLIN HFA) 18 GM IH SCH ×2 (06:58→21:43)
[2020-07-09 08:22] VITALS: BP 98/50
[2020-07-09] MEDS: DULoxetine 30 MG (CYMBALTA) CAP PO SCH (08:36)
[2020-07-09] MEDS: OXYBUTYNIN (DITROPAN) 5 MG TAB PO SCH ×3 (08:36→20:12)
[2020-07-09] MEDS: LEVETIRACETAM 1,000 MG (KEPPRA) TABLET PO SCH ×2 (08:36→20:12)
[2020-07-09] MEDS: ASPIRIN E.C. 81 MG (ECOTRIN) TAB PO SCH (08:36)
[2020-07-09] MEDS: toPIRamate 25 MG (TOPAMAX) TAB PO SCH ×2 (08:36→20:12)
[2020-07-09] MEDS: DIVALPROEX EXT RELEASE 500 MG (DEPAKOTE ER) TAB PO SCH ×2 (08:37→20:12)
[2020-07-09] MEDS: PRAMIPEXOLE 0.5 MG TAB (MIRAPEX) PO SCH ×3 (08:37→20:12)
[2020-07-09] MEDS: SENNA W/DOCUSATE (SENOKOT S) TABLET PO SCH ×2 (08:38→20:12)
[2020-07-09] MEDS: DOCUSATE SODIUM 100 MG (COLACE) CAP PO SCH ×2 (08:38→20:12)
[2020-07-09] MEDS: polyethylene glycoL POWDER 17 GM (MIRALAX) PACK PO SCH ×2 (08:46→20:02)
--- NOTE | 2020-07-09 08:52 | PM&R Progress Note ---
Subjective HPI/CC On Admission Date Seen by Provider: Jul 09, 2020 Time Seen by Provider: 08:30 Subjective/Events-last exam 07/09/20: Pt has some labile BP Has some sun-downers from dementia, she thought she was in [facility] last night Incontinent of bowel and bladder Tessalon Perles given for cough from Covid and Influenza B Denies any other significant issues Review of Systems General: Fatigue, Malaise Neurological: Weakness, Incoordination Objective Exam Vital Signs Vital Signs Date Time Temp Pulse Resp B/P (MAP) Pulse Ox O2 Delivery O2 Flow Rate FiO2 07/09/20 21:46 97 Room Air 07/09/20 16:05 36.2 65 16 113/55 (74) Capillary Refill : Less Than 3 Seconds General Appearance: No Apparent Distress, WD/WN, Chronically ill HEENT: PERRL/EOMI, Normal ENT Inspection, Pharynx Normal Neck: Full Range of Motion, Normal Inspection, Non Tender, Supple, Carotid Bruit Respiratory: Chest Non Tender, Lungs Clear, No Accessory Muscle Use, No Respiratory Distress, Decreased Breath Sounds Cardiovascular: Regular Rate, Rhythm, No Edema, No Gallop, No JVD, No Murmur, Normal Peripheral Pulses Gastrointestinal: Normal Bowel Sounds, No Organomegaly, No Pulsatile Mass, Non Tender, Soft Back: Normal Inspection, No CVA Tenderness, No Vertebral Tenderness Extremity: Normal Capillary Refill, Normal Inspection, Normal Range of Motion, Non Tender, No Calf Tenderness, No Pedal Edema Neurologic/Psychiatric: Alert, Oriented x3, No Motor/Sensory Deficits, Normal Mood/Affect, Motor Weakness (3/5 strength lower extremities and 4/5 strength upper extremities) Skin: Normal Color, Warm/Dry Lymphatic: No Adenopathy Results/Procedures Lab Patient resulted labs reviewed. FIM Transfers Therapy Code Descriptions/Definitions Functional [place] Measure: 0=Not Assessed/NA 4=Minimal Assistance 1=Total Assistance 5=Supervision or Setup 2=Maximal Assistance 6=Modified [place] 3=Moderate Assistance 7=Complete IndependenceSCALE: Activities may be completed with or without assistive devices. 2-Obffalfgpk-hqcezfi completes the activity by him/herself with no assistance from a helper. 5-Set-up or Clean-up Assistance-helper sets up or cleans up; patient completes activity. [place] assists only prior to or following the activity. 4-Supervision or Touching Assistance-helper provides verbal cues and/or touching/steadying and/or contact guard assistance as patient completes activity. Assistance may be provided throughout the activity or intermittently. 3-Partial/Moderate Assistance-helper does LESS THAN HALF the effort. [place] lifts, holds or supports trunk or limbs, but provides less than half the effort. 2-Substantial/Maximal Assistance-helper does MORE THAN HALF the effort. [place] l ifts or holds trunk or limbs and provides more than half the effort. 1-Atrpjtxxe-xzwddh does ALL the effort. Patient does none of the effort to complete the activity. Or, the assistance of 2 or more helpers is required for the patient to complete the activity. If activity was not attempted, code reason: 7-Patient Refused. 9-Not Applicable-not attempted and the patient did not perform the activity before the current illness, exacerbation or injury. 10-Not Attempted due to Environmental Limitations-(lack of equipment, weather restraints, etc.). 88-Not Attempted due to Medical Conditions or Safety Concerns. Roll Left to Right (QC): 4 Sit to Lying (QC): 3 Sit to Stand (QC): 4 Chair/Qfu-wv-Dpaqc Xfer(QC): 4 Car Transfer (QC): 3 Gait Training Does the Patient Walk?: Yes Walk 10 feet (QC): 4 Walk 50 ft with 2 Turns(QC): 88 Walk 150 ft (QC): 88 Walking 10ft/uneven surface-QC: 88 Gait Assistive Device: FWW Wheelchair Training Wheel 50 ft with 2 turns (QC): 1 Wheel 150 ft (QC): 1 Type of Wheelchair: Manual Stair Training 1 Step (curb) (QC): 88 4 Steps (QC): 88 12 Steps (QC): 88 Balance Picking up an Object (QC): 88 ADL-Treatment Eating (QC): 4 Oral Hygiene (QC): 7 Shower/Bathe Self (QC): 7 (Pt. states that she does not feel "up to" a shower at this time, but will complete in a.m.) Upper Body Dressing (QC): 88 Lower Body Dressing (QC): 88 On/Off Footwear (QC): 2 Toileting Hygiene (QC): 7 Assessment/Plan Assessment and Plan Assess & Plan/Chief Complaint Assessment: 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 PNA s/p Influenza B h/o TBI Seizures Dementia CAD HTN HLP Anemia Plan: Monitor seizures Home meds O2 IRF protocol 07/09/20: Monitor BP O2 management Monitor sundowning (1) Myopathy (2) Pneumonia due to COVID-19 virus Status: Acute (3) Acute kidney injury superimposed on chronic kidney disease Status: Acute (4) Seizure disorder Status: Chronic (5) Influenza B Status: Acute (6) Altered mental status Status: Acute (7) Hypotension Status: Acute (8) Hypoglycemia Status: Acute (9) History of traumatic brain injury Status: Chronic DADA SANDOVAL DO Jul 09, 2020 08:52
--- NOTE | 2020-07-09 09:48 | ST Cognitive Linguistic Eval ---
Speech Evaluation-General Medical Diagnosis COVID+, influenza B, sepsis Onset Date: Jun 30, 2020 Therapy Diagnosis Therapy Diagnosis: Cognitive-communication Referral Referring Physician: Dr. Montiel Medical History Pertinent Medical History: Arthritis, CAD, Dementia, GERD, HTN, TBI Reviewed History: Yes Social History Home: Assisted Living Current Living Status: Speech PLF-Current Status Prior Level of Function Patient lives in an [facility] where she receives assistance with her daily needs as needed. Subjective Patient was pleasant and cooperative with the cognitive assessment. Language Eval: Auditory Comprehends Simple Yes/No Ques: Functional Indent/Objects Multiple Hess: Functional Ident/Pics in Multiple Hess: Functional Follows 1-Step Commands: Functional Follows Complex Directions: Mild Follows General Conversations: Functional Language Eval: Verbal Language Completes Spontaneous Greeting: Functional Produces Auto, Serial Info: Functional Imitates Simple Words/Phrases: Functional Word Finding: Mild States Basic Personal Info: Functional Expresses Complex Ideas: Mild Objective Cognitive Domain Attention: WNL Memory: Mild Problem Solving: Functional Executive Functions: Mild Visuospatial Skills: WNL Composite Severity Rating: Mild Clock Drawing Severity Rating: Mild Objective Formal/Standardized Tests [facility] Mental Status ([facility]) Results 20/30, Moderate Dementia range of function Oral Motor/Speech Production Within Normal Limits Impression Patient is a pleasant 70 y/o female who was admitted to the ARU post COVID and Flu B for therapy to return to prior level. The patient is a resident of [facility]. Patient's goal is to return to the prior level of function. Patient was given the SLUMS with a score of 20/30 obtained. This score is within the Moderate Dementia range of function. This clinician's opinion is that the score may be depressed due to her recent health status. Patient will be retested prior to discharge. Speech Patient Assess Expression of Ideas/Wants: Exhibits (3) Understanding Verbal Content: Usually Understands (3) Brief Interview-Mental Status: Yes Repetition of Three Words: Three (3) Temporal Orientation: Year: Correct (3) Temporal Orientation: Month: Accurate within 5 days(2) Temporal Orientation: Day: Correct (1) Recall : Wear to say "Sock": Yes,after cueing (1) Recall : Color: Yes, after cueing (1) Recall : Bed: Yes,after cueing (1) Memory/Recall Ability: Current season, That he or she is in a hsp/hsp unit Speech Short Term Goals Short Term Goals Short Term Goals 1) The patient will complete memory tasks related to her daily needs at 90% or greater with minimal cues. 2) The patient will complete problem solving tasks related to her daily needs at 90% or greater with minimal cues. 3) The patient will complete safety awareness tasks related to her daily needs at 90% or greater with minimal cues. Speech Alf Goals Belt Builder Helper Goals Patient will improve cognitive-communication necessary for safety and daily living tasks with minimal assist. Speech-Plan Patient/Family Goals Patient/Family Goals: Patient plans on returning to her assisted living apartment upon discharge. Treatment Plan Speech Therapy Treatment Plan: Continue Plan of Care Frequency: 4 times per week (Patient will receive skilled ST 4-5x per week) Estimated Hrs Per Day: .5 hour per day Rehab Potential: Fair Barriers to Learning: Patient's recent severe illness, cognitive deficits Pt/Family Agrees to Plan: Yes Safety Risks/Education Teaching Recipient: Patient Teaching Methods: Discussion Response to Teaching: Verbalize Understanding Education Topics Provided: Safety within her room, communication of wants/needs Time Speech Therapy Time In: 09:00 Speech Therapy Time Out: 09:30 Total Billed Time: 30 Billed Treatment Time 1, AME ARCOS [facility] ST Jul 09, 2020 09:48
[2020-07-09] MEDS: prednisoLONE 1% OPTH (PRED FORTE) 5 ML BTL OU SCH (10:26)
--- NOTE | 2020-07-09 11:07 | Occupational Ther Daily Note ---
OT Current Status-Daily Note Subjective Pt alert, sitting in recliner. Pt oriented to name only. Pt thought she was in [place] and that is was 10:00pm instead of 10:00am. During shower pt stated that her head hurt. Pt was standing at the time her head began to hurt. Initially her BP was 88/44 then 92/54 in sitting, when pt was in supine 118/59. Reported to nrsg. Mental Status/Objective Patient Orientation: Person, Place, Time, Situation Attachments: IV (midline) ADL-Treatment Co-treat with PT ([id number]), skills of 2 clinicians required for skilled care and instruction due to decreased safety awareness, sequencing/problem solving issues, debility/weakness and fall risk. PT focusing on ambulation, mobility and transfers during ADLs while OT focusing on ADLs and B hand placement during mobility. Pt agrees to shower. Sit to stand with min A. Pt takes increased time to complete all tasks due to pt's confusion and difficulty sequencing steps. Pt ambulated using FWW to bathroom and transferred onto toilet with m ultiple verbal/physical cues for hand and FWW placement. Pt able to manipulate clothing with min A in standing and cleansed self sitting on toilet. Pt able to doff socks sitting on toilet. Pt ambulated to shower requiring verbal/physical cues to sequence transfer. Pt required verbal cue to initiate shower after set up. Pt bathed only upper body, perseverating. Pt stated that she hurt around her evan area, attempted to get pt to cleanse area. Pt then began to c/o headache. Had pt sit down on bench, assist to dry and take BP, transferred pt to w/c to take to bed and transferred to bed. Pt requested [place] ice, was able to open package and use regular utensil to eat. After session, pt lying in bed with call light/phone in reach. Safety measures in place. Pt stated that she felt much better. All needs met. Therapy Code Descriptions/Definitions Functional [place] Measure: 0=Not Assessed/NA 4=Minimal Assistance 1=Total Assistance 5=Supervision or Setup 2=Maximal Assistance 6=Modified [place] 3=Moderate Assistance 7=Complete IndependenceSCALE: Activities may be completed with or without assistive devices. 1-Tqyqfcwfcm-zjrbtct completes the activity by him/herself with no assistance from a helper. 5-Set-up or Clean-up Assistance-helper sets up or cleans up; patient completes activity. [place] assists only prior to or following the activity. 4-Supervision or Touching Assistance-helper provides verbal cues and/or touching/steadying and/or contact guard assistance as patient completes activity. Assistance may be provided throughout the activity or intermittently. 3-Partial/Moderate Assistance-helper does LESS THAN HALF the effort. [place] lifts, holds or supports trunk or limbs, but provides less than half the effort. 2-Substantial/Maximal Assistance-helper does MORE THAN HALF the effort. [place] lifts or holds trunk or limbs and provides more than half the effort. 6-Zfoxqtrzw-sewcfl does ALL the effort. Patient does none of the effort to complete the activity. Or, the assistance of 2 or more helpers is required for the patient to complete the activity. If activity was not attempted, code reason: 7-Patient Refused. 9-Not Applicable-not attempted and the patient did not perform the activity before the current illness, exacerbation or injury. 10-Not Attempted due to Environmental Limitations-(lack of equipment, weather restraints, etc.). 88-Not Attempted due to Medical Conditions or Safety Concerns. Eating (QC): 6 Bathing Location: L Arm, R Arm, Chest, Abdomen Shower/Bathe Self (QC): 2 Lower Body Dressing (QC): 2 (Max A to don all clothing. Pt able to doff clothing with verbal cues and SBA.) On/Off Footwear: 3 Toileting Hygiene (QC): 3 Toilet Transfer (QC): 3 OT Short Term Goals Short Term Goals Time Frame: Jul 15, 2020 Eatin Oral hygiene: 3 Toileting hygiene: 3 Shower/bathe self: 3 Upper body dressin Lower body dressin Putting on/taking off footwear: 3 OT Nursing Home Goals Nursing Home Goals Time Frame: Jul 29, 2020 Eating (QC): 6 Oral Hygiene (QC): 6 Toileting Hygiene (QC): 6 Shower/Bathe Self (QC): 4 Upper Body Dressing (QC): 5 Lower Body Dressing (QC): 4 On/Off Footwear (QC): 5 Additional Goals: 1-Demonstrate ADL Tasks, 2-Verbalize Understanding, 3- ImproveStrength/Tang 1=Demonstrate adherence to instructed precautions during ADL tasks. 2=Patient will verbalize/demonstrate understanding of assistive devices/modifications for ADL. 3=Patient will improve strength/tolerance for activity to enable patient to perform ADL's. OT Education/Plan Problem List/Assessment Assessment: Decreased Activ Tolerance, Decreased Safety Aware, Impaired Cognition, Impaired Coordination, Impaired Funct Balance, Impaired Self-Care Skills Discharge Recommendations Plan/Recommendations: Continue POC Treatment Plan/Plan of Care Patient would benefit from OT for education, treatment and training to promote independence in ADL's, mobility, safety and/or upper extremity function for ADL's. Plan of Care: ADL Retraining, Functional Mobility, Group Exercise/Act as Ind, UE Funct Exercise/Act Treatment Duration: Jul 29, 2020 Frequency: At least 5 of 7 days/Wk (IRF) Estimated Hrs Per Day: Other (Due to a Covid-19 viral infection, the patient has deficits that warrant inpatient Acute Rehab. The patient will clearly benefit from intensive PT and OT, however, due to patient's observed endurance and therapy considerations, she may not be able to to tolerate the full 3 hours of scheduled therapy. Therefore, she will be scheduled for as much therapy as she can tolerate with intentional rest breaks, shortened sessions, including providing therapy across 6 to 7 days. As the patient tolerates, the intensity, frequency, and duration of her therapy program will be increased.) Agreement: Yes Rehab Potential: Fair Time/GCodes Start Time: 10:00 Stop Time: 11:00 Total Time Billed (hr/min): 60 Billed Treatment Time 1 visit-ADL 4 (60 min) co-treat with PT 60 min MIGNON CASTILLO Jul 09, 2020 11:06
--- NOTE | 2020-07-09 11:11 | Physical Therapy Daily Note ---
PT Daily Note-Current Subjective Pt is sitting in recliner upon arrival. Pt is very confused but agrees to PT/OT co-treat for shower. Pain Comment: Pt reports generalized pain but doesn't rate. Mental Status Patient Orientation: Person, Confused Transfers SCALE: Activities may be completed with or without assistive devices. 0-Oxtskrdqnu-albplrz completes the activity by him/herself with no assistance from a helper. 5-Set-up or Clean-up Assistance-helper sets up or cleans up; patient completes activity. [place] assists only prior to or following the activity. 4-Supervision or Touching Assistance-helper provides verbal cues and/or touching/steadying and/or contact guard assistance as patient completes activity. Assistance may be provided throughout the activity or intermittently. 3-Partial/Moderate Assistance-helper does LESS THAN HALF the effort. [place] lifts, holds or supports trunk or limbs, but provides less than half the effort. 2-Substantial/Maximal Assistance-helper does MORE THAN HALF the effort. [place] lifts or holds trunk or limbs and provides more than half the effort. 3-Grpanpsjm-rgohrg does ALL the effort. Patient does none of the effort to complete the activity. Or, the assistance of 2 or more helpers is required for the patient to complete the activity. If activity was not attempted, code reason: 7-Patient Refused. 9-Not Applicable-not attempted and the patient did not perform the activity before the current illness, exacerbation or injury. 10-Not Attempted due to Environmental Limitations-(lack of equipment, weather restraints, etc.). 88-Not Attempted due to Medical Conditions or Safety Concerns. Sit to Lying (QC): 4 Sit to Stand (QC): 4 Pt resistant to TF due to confusion and needs VC as well as TC to complete tasks. Treatments Co-treat with PT ([id number]), skills of 2 clinicians required for skilled care and instruction due to decreased safety awareness, sequencing/problem solving issues, debility/weakness and fall risk. PT focusing on ambulation, mobility and transfers during ADLs while OT focusing on ADLs and B hand placement during mobility. Pt agrees to shower. Sit to stand with min A. Pt takes increased time to complete all tasks due to pt's confusion and difficulty sequencing steps. Pt ambulated using FWW to bathroom and transferred onto toilet with multiple verbal/physical cues for hand and FWW placement. Pt able to manipulate clothing with min A in standing and cleansed self sitting on toilet. Pt able to doff socks sitting on toilet. Pt ambulated to shower requiring verbal/physical cues to sequence transfer. Pt required verbal cue to initiate shower after set up. Pt bathed only upper body, perseverating. Pt stated that she hurt around her evan area, attempted to get pt to cleanse area. Pt then began to c/o headache. Had pt sit down on bench, assist to dry and take BP, transferred pt to w/c to take to bed and transferred to bed. Pt requested [place] ice, was able to open package and use regular utensil to eat. After session, pt lying in bed with call light/phone in reach. Safety measures in place. Pt stated that she felt much better. All needs met. Assessment Current Status: Poor Progress Pt alert, sitting in recliner. Pt oriented to name only. Pt thought she was in [place] and that is was 10:00pm instead of 10:00am. During shower pt stated that her head hurt. Pt was standing at the time her head began to hurt. Initially her BP was 88/44 then 92/54 in sitting, when pt was in supine 118/59. Reported to nrsg. PT Short Term Goals Short Term Goals Time Frame: Jul 15, 2020 Roll Left & Right: 6 Sit to lyin Lying to sitting on side of be: 4 Sit to stand: 4 Chair/wuw-lh-ppvow transfer: 4 Walk 10 feet: 4 Walk 50 feet with two turns: 4 PT Line Producer Goals Line Producer Goals PT Long-Term Goals Time Frame: Jul 29, 2020 Roll Left & Right (QC): 6 Sit to Lying (QC): 6 Lying-Sitting on Side/Bed(QC): 6 Sit to Stand (QC): 5 Chair/Ifa-lb-Iitfw Xfer(QC): 5 Toilet Transfer (QC): 5 Car Transfer (QC): 5 Does the Patient Walk: Yes Walk 10 feet (QC): 5 Walk 50ft with 2 Turns (QC): 5 Walk 150 ft (QC): 88 Walking 10ft on Uneven Surface: 4 1 Step (curb) (QC): 88 4 Steps (QC): 88 12 Steps (QC): 88 Picking up an Object (QC): 88 Wheel 50 feet with 2 turns (QC: 4 Wheel 150 feet: 4 PT Plan Problem List Problem List: Activity Tolerance, Safety, Balance, Transfer Treatment/Plan Treatment Plan: Continue Plan of Care Treatment Plan: Bed Mobility, Education, Functional Activity Tang, Functional Strength, Group Therapy, Gait, Safety, Therapeutic Exercise, Transfers Treatment Duration: Jul 15, 2020 Frequency: Modified Program (IRF) Estimated Hrs Per Day: 1 hour per day Patient and/or Family Agrees t: Yes Safety Risks/Education Patient Education: Transfer Techniques, Correct Positioning, Safety Issues Teaching Recipient: Patient Teaching Methods: Discussion Response to Teaching: Reinforcement Needed Time/GCodes Time In: 1000 Time Out: 1100 Total Billed Treatment Time: 60 Total Billed Treatment 1, FA x4 (60m) Co-treat w/OT for 60m ADELINE GREER FACULTY INSTRUCTOR Jul 09, 2020 11:10
--- NOTE | 2020-07-09 13:58 | Physical Therapy Progress Note ---
Therapy Progress Note Pt laying Supine in bed as call light in ringing. SENIOR STACK ENGINEER answers and pt is looking for phone number but cannot remember who she is looking for. Pt continues to thinks she is in [place] even after talking with staff numerous times that she is in [place], [place] at [address]. Pt perserverates in this and does not follow VC given for Supine Ex. Pt asks for paper & pen and SENIOR STACK ENGINEER obliges. SENIOR STACK ENGINEER departs with all needs met & call light in hand. 1 visit, FA (15m) [phone] ADELINE GREER SENIOR STACK ENGINEER Jul 09, 2020 13:58
--- NOTE | 2020-07-09 15:26 | NUR ---
"RD ASSESSMENT PMHx: CAD; hypercholesterolemia; HTN; dementia; seizure disorder; TBI; GERD; chronic constipation/diarrhea; irritable bowel; PT INTERACTION: Pt was awake and pleasant during nutrition assessment. Note pt has hx of dementia, per chart review. Pt states current appetite is okay. Note avg PO intake 25-50% x3d, per chart review. Pt states following a regular diet at home, and has some issues with chewing food, as she is missing teeth. Pt states some recent issues constipation. Note last BM was 07/08, and pt currently on bowel regimen of colace BID, senna BID, and miralax BID, per chart review. Est. kcal needs: 4052-5520 kcal | 15-20 kcal/kg Est. Pro needs: 91-102 g Pro | 1.0-1.2 g Pro/kg PES STATEMENT: Inadequate oral intake (NI-2.1) related to loss of appetite, and constipation, as evidenced by pt interview, and avg PO intake 25-50% x3d. INTERVENTION: Continue with current diet order of Regular diet. Pt may benefit from nutrition supplementation if PO intake declines. Will continue to follow and reassess as pt needs, intake, and status change. Peggy PASTOR, MS RD LD [phone] cell"
--- NOTE | 2020-07-09 15:45 | NUR ---
CALL PLACED TO PT'S NEPHEW, ZAKI KERN, REQUESTED BY PT. PT IS TALKING TO HIM NOW.
[2020-07-09 16:05] VITALS: BP 113/55
[2020-07-09] MEDS: ENOXAPARIN 40 MG/0.4 ML (LOVENOX) SYR SC SCH (20:12)
[2020-07-10 05:18] VITALS: BP 116/67
[2020-07-10] MEDS: PANTOPRAZOLE 40 MG (PROTONIX) TAB PO SCH (06:01)
[2020-07-10] MEDS: RT-ALBUTEROL INHALER HFA (VENTOLIN HFA) 18 GM IH SCH ×2 (07:40→22:28)
[2020-07-10] MEDS: SENNA W/DOCUSATE (SENOKOT S) TABLET PO SCH ×2 (08:28→22:31)
[2020-07-10] MEDS: OXYBUTYNIN (DITROPAN) 5 MG TAB PO SCH ×3 (08:28→22:31)
[2020-07-10] MEDS: BENZONATATE 100 MG (TESSALON) CAPSULE PO PRN (08:29)
[2020-07-10] MEDS: ASPIRIN E.C. 81 MG (ECOTRIN) TAB PO SCH (08:29)
[2020-07-10] MEDS: toPIRamate 25 MG (TOPAMAX) TAB PO SCH ×2 (08:29→22:31)
[2020-07-10] MEDS: DULoxetine 30 MG (CYMBALTA) CAP PO SCH (08:29)
[2020-07-10] MEDS: LEVETIRACETAM 1,000 MG (KEPPRA) TABLET PO SCH ×2 (08:29→22:30)
[2020-07-10] MEDS: PRAMIPEXOLE 0.5 MG TAB (MIRAPEX) PO SCH ×3 (08:29→22:31)
[2020-07-10] MEDS: DIVALPROEX EXT RELEASE 500 MG (DEPAKOTE ER) TAB PO SCH ×2 (08:31→22:30)
[2020-07-10] MEDS: polyethylene glycoL POWDER 17 GM (MIRALAX) PACK PO SCH ×2 (08:32→22:30)
--- NOTE | 2020-07-10 08:44 | PM&R Progress Note ---
Subjective HPI/CC On Admission Date Seen by Provider: Jul 10, 2020 Time Seen by Provider: 08:45 Subjective/Events-last exam 07/10/20: Pt will go to assisted living at [place] at [facility] Decreased walking with walker due to confusion Dry cough still, also taking Tesselon Pearles Last had a BM on July 08 so given laxatives Will recheck her progress tomorrow Maintained on room air Confusion requires co-treating with therapies 07/09/20: Pt has some labile BP Has some sun-downers from dementia, she thought she was in [facility] last night Incontinent of bowel and bladder Tessalon Perles given for cough from Covid and Influenza B Denies any other significant issues Review of Systems General: Fatigue, Malaise Pulmonary: Dyspnea, Cough Neurological: Confusion Objective Exam Vital Signs Vital Signs Date Time Temp Pulse Resp B/P (MAP) Pulse Ox O2 Delivery O2 Flow Rate FiO2 07/10/20 21:00 Room Air 07/10/20 17:08 36.7 68 20 120/52 (74) 90 Capillary Refill : Less Than 3 Seconds General Appearance: No Apparent Distress, WD/WN, Chronically ill HEENT: PERRL/EOMI, Normal ENT Inspection, Pharynx Normal Neck: Full Range of Motion, Normal Inspection, Non Tender, Supple, Carotid Bruit Respiratory: Chest Non Tender, Lungs Clear, No Accessory Muscle Use, No Respiratory Distress, Decreased Breath Sounds Cardiovascular: Regular Rate, Rhythm, No Edema, No Gallop, No JVD, No Murmur, Normal Peripheral Pulses Gastrointestinal: Normal Bowel Sounds, No Organomegaly, No Pulsatile Mass, Non Tender, Soft Back: Normal Inspection, No CVA Tenderness, No Vertebral Tenderness Extremity: Normal Capillary Refill, Normal Inspection, Normal Range of Motion, Non Tender, No Calf Tenderness, No Pedal Edema Neurologic/Psychiatric: Alert, Oriented x3, No Motor/Sensory Deficits, Normal Mood/Affect, Motor Weakness (3/5 strength lower extremities and 4/5 strength up per extremities) Skin: Normal Color, Warm/Dry Lymphatic: No Adenopathy Results/Procedures Lab Patient resulted labs reviewed. FIM Transfers Therapy Code Descriptions/Definitions Functional [place] Measure: 0=Not Assessed/NA 4=Minimal Assistance 1=Total Assistance 5=Supervision or Setup 2=Maximal Assistance 6=Modified [place] 3=Moderate Assistance 7=Complete IndependenceSCALE: Activities may be completed with or without assistive devices. 5-Xdjaiqjirv-hlhetbd completes the activity by him/herself with no assistance from a helper. 5-Set-up or Clean-up Assistance-helper sets up or cleans up; patient completes activity. [place] assists only prior to or following the activity. 4-Supervision or Touching Assistance-helper provides verbal cues and/or touching/steadying and/or contact guard assistance as patient completes activity. Assistance may be provided throughout the activity or intermittently. 3-Partial/Moderate Assistance-helper does LESS THAN HALF the effort. [place] lifts, holds or supports trunk or limbs, but provides less than half the effort. 2-Substantial/Maximal Assistance-helper does MORE THAN HALF the effort. [place] lifts or holds trunk or limbs and provides more than half the effort. 0-Fdonwtcvk-vznyhp does ALL the effort. Patient does none of the effort to complete the activity. Or, the assistance of 2 or more helpers is required for the patient to complete the activity. If activity was not attempted, code reason: 7-Patient Refused. 9-Not Applicable-not attempted and the patient did not perform the activity before the current illness, exacerbation or injury. 10-Not Attempted due to Environmental Limitations-(lack of equipment, weather restraints, etc.). 88-Not Attempted due to Medical Conditions or Safety Concerns. Roll Left to Right (QC): 4 Sit to Lying (QC): 4 Sit to Stand (QC): 4 Chair/Qrv-oa-Obqep Xfer(QC): 4 Car Transfer (QC): 3 Gait Training Does the Patient Walk?: Yes Walk 10 feet (QC): 4 Walk 50 ft with 2 Turns(QC): 88 Walk 150 ft (QC): 88 Walking 10ft/uneven surface-QC: 88 Gait Assistive Device: FWW Wheelchair Training Wheel 50 ft with 2 turns (QC): 1 Wheel 150 ft (QC): 1 Type of Wheelchair: Manual Stair Training 1 Step (curb) (QC): 88 4 Steps (QC): 88 12 Steps (QC): 88 Balance Picking up an Object (QC): 88 ADL-Treatment Eating (QC): 6 Oral Hygiene (QC): 7 Bathing Location: L Arm, R Arm, Chest, Abdomen Shower/Bathe Self (QC): 2 Upper Body Dressing (QC): 88 Lower Body Dressing (QC): 2 (Max A to don all clothing. 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 PNA s/p Influenza B h/o TBI Seizures Dementia CAD HTN HLP Anemia Plan: Monitor seizures Home meds O2 IRF protocol 07/09/20: Monitor BP O2 management Monitor sundowning 07/10/20: Monitor O2 sat Cognition focus with therapy Increase ambulation (1) Myopathy (2) Pneumonia due to COVID-19 virus Status: Acute (3) Acute kidney injury superimposed on chronic kidney disease Status: Acute (4) Seizure disorder Status: Chronic (5) Influenza B Status: Acute (6) Altered mental status Status: Acute (7) Hypotension Status: Acute (8) Hypoglycemia Status: Acute (9) History of traumatic brain injury Status: Chronic DADA SANDOVAL DO Jul 10, 2020 08:43
--- NOTE | 2020-07-10 08:44 | Individualized Plan of Care ---
Individualized Plan of Care Rehab Nursing IPOC Order Admission Date Jul 08, 2020 at 14:10 Current Orders Orders Admission Order(Inpt,Obs,Sdc) (07/08/20 11:00) Vital Signs: Per Unit Policy ( ,16, (07/08/20 11:00) Lopez Pittman (07/08/20 11:00) Sequential Compression Device Q4H (07/08/20 11:00) Nurse Practitioner Adult-Inpt Rehab Con (07/08/20 11:00) Rehab Nursing Orders-Ipoc (07/08/20 11:00) Physical Therapy Rehab Orders (07/08/20 11:00) Occupational Therapy Rehab Ord (07/08/20 11:00) Speech Therapy Rehab Orders (07/08/20 11:00) Cbc With Automated Diff (07/09/20 06:00) Comprehensive Metabolic Panel (07/09/20 06:00) General/Regular (07/08/20 Lunch) Intake & Output (07/08/20 11:00) Precautions (Aru) (07/08/20 11:00) Rehab-Intensity Of Therapy (07/08/20 11:00) Initiate Admission Nursing Pro .admission (07/08/20 11:00) Alprazolam Tablet (Xanax Tablet) (07/08/20 11:00) Calcium Carbonate Chew Tablet (Antacid C (07/08/20 11:00) Diphenhydramine Tablet (Benadryl Tablet) (07/08/20 11:00) Docusate Sodium Capsule (Colace Capsule) (07/08/20 21:00) Docusate Sodium Capsule (Colace Capsule) (07/08/20 11:00) Bisacodyl Suppository (Dulcolax Supposit (07/08/20 11:00) Lactulose Oral Solution (Enulose Oral So (07/08/20 11:00) Na Phos/Na Biphos Enema (Fleet Enema Zachariah (07/08/20 11:00) Guaifenesin/Codeine Syrup (Robitussin Ac (07/08/20 11:00) Loperamide Tablet (Imodium Tablet) (07/08/20 11:00) Melatonin Tablet (Melatonin Tablet) (07/08/20 11:00) Polyethylene Glycol Powder Pkt (Miralax (07/08/20 21:00) Ondansetron Oral Dissolve Tab (Zofran (07/08/20 11:00) Senna S Tablet (Senokot S Tablet) (07/08/20 21:00) Initiate Admission Nursing Pro .admission (07/08/20 11:00) Admission Arrival Bed Request (07/08/20 14:18) Patient Visit (07/08/20 ) Pt Eval Moderate Complexity (07/08/20 ) Functional Activities, Ea 15 (07/08/20 ) Code/Resuscitation (07/08/20 18:24) Covid-19 External Lab Results (07/08/20 18:24) General/Regular (07/08/20 Dinner) Albuterol Inhaler (Ventolin Hfa) (07/08/20 21:00) Aspirin Enteric Coated Tablet (Ecotrin T (07/09/20 09:00) Duloxetine Capsule (Cymbalta Capsule) (07/09/20 09:00) Divalproex Er 24 Hr Tablet (Depakote Er (07/08/20 21:00) Enoxaparin Injection (Lovenox Injection) (07/08/20 21:00) Levetiracetam Tablet (Keppra Tablet) (07/08/20 21:00) Melatonin Tablet (Melatonin Tablet) (07/08/20 18:30) Magnesium Hydroxide Oral Susp (Mom Oral (07/08/20 18:30) Antacid Suspension (Mylanta Suspension (07/08/20 18:30) Oxybutynin Tablet (Ditropan Tablet) (07/08/20 21:00) Pantoprazole Tablet (Protonix Tablet) (07/09/20 07:00) Pramipexole Tablet (Mirapex Tablet) (07/08/20 21:00) Benzonatate Capsule (Tessalon Perles) (07/08/20 18:30) Acetaminophen Tablet (Tylenol Tablet) (07/08/20 18:30) Topiramate Tablet (Topamax Tablet) (07/08/20 21:00) Ondansetron Injection (Zofran Injectio (07/08/20 18:30) Diphenhydramine Injection (Benadryl Inje (07/08/20 18:30) Mat Initiate Protocol (07/08/20 18:24) Ambulate 08,12,20 (07/08/20 18:24) Prednisolone 1% Ophthalmic Luann (Pred For (07/09/20 09:00) Manual Differential (07/09/20 05:15) Patient Visit (07/09/20 ) Speech Sound Lang Comp (07/09/20 ) Treat. Speech/Lang/Voice (07/09/20 ) Patient Visit (07/09/20 ) Functional Activities, Ea 15 (07/09/20 ) Patient Visit (07/10/20 ) Functional Activities, Ea 15 (07/10/20 ) Wheelchair Mgmt/Propulsn 15min (07/10/20 ) Patient Visit (07/10/20 ) Treat. Speech/Lang/Voice (07/10/20 ) Rehab Nursing Orders: Ongoing Assess. of Cognitive Status, Ongoing Assess. of Function Status, Bladder Management, Bladder Scan, Bladder Training, Bowel Management, Bowel Training, Disease Management & Educaiton, DVT Prophylaxis, Fall Prevention, Fluid/Electrolyte/Nutrition Mgmt, Infection Prevention, Medication Management & Education, Management of Risks & Complications, Management of Skin Intergrity, Nutrition Management, Pain Management, Patient/Family Support, Safety Management, Swallow Precautions Intensity of Therapy to be met Patient to be seen: Min.3h per day/5 of 7d PT IPOC Problem List: Activity Tolerance, Safety, Balance, Transfer Treatment Plan: Continue Plan of Care Bed Mobility, Education, Functional Activity Tang, Functional Strength, Group Therapy, Gait, Safety, Therapeutic Exercise, Transfers Treatment Duration: Jul 15, 2020 Frequency: Modified Program (IRF) Estimated Hrs Per Day: 1 hour per day OT IPOC Problems: Decreased Activ Tolerance, Decreased Safety Aware, Impaired Cognition, Impaired Coordination, Impaired Funct Balance, Impaired Self-Care Skills OT Treatment, Training and Edu: Yes Plan of Care: ADL Retraining, Functional Mobility, Group Exercise/Act as Ind, UE Funct Exercise/Act Treatment Duration: Jul 29, 2020 Frequency: At least 5 of 7 days/Wk (IRF) Estimated Hrs Per Day: Other (Due to a Covid-19 viral infection, the patient has deficits that warrant inpatient Acute Rehab. The patient will clearly benefit from intensive PT and OT, however, due to patient's observed endurance and therapy considerations, she may not be able to to tolerate the full 3 hours of scheduled therapy. Therefore, she will be scheduled for as much therapy as she can tolerate with intentional rest breaks, shortened sessions, including providing therapy across 6 to 7 days. As the patient tolerates, the intensity, frequency, and duration of her therapy program will be increased.) ST IPOC Speech Therapy Treatment Plan: Continue Plan of Care Treatment Duration: Jul 10, 2020 Frequency: 4 times per week (Patient will receive skilled ST 4-5x per week) Estimated Hrs Per Day: .5 hour per day Nurse Practitioner Adult/Case Mgmt Nurse Practitioner Adult/Case Managemen: Discharge Planning Dietitian/Finance Manager Dietitian/Finance Manager to monitor nutritional status and make changes and/or recommendations as needed and work with speech pathology on dietary upgrades as the occur. Physician IP Medical Issues being managed closely and that require the 24 hour availability of a physician: Recent COVID with Flu B with significant respiratory compromise will need close monitoring of hypoxia along with cognition deficit acute on chronic will require close physician supervision Medical Issues: Bowel/Bladder Function, DVT Prophylaxis, Falls Precautions, Fluid/Electrolyte/Nutrition Balance, Infection Protection, Pain Management Brief Synthesis of Preadmission Screen, Post-Admission Evaluation, and Therapy Evaluations: PT OT ST will all focus on regaining enough ADL's and ambulatory skills in order to return to [place] and live semi-independently Medical Prognosis: Fair Anticipated Length of Stay: 10 days DADA SANDOVAL DO Jul 10, 2020 08:44
[2020-07-10] MEDS: DOCUSATE SODIUM 100 MG (COLACE) CAP PO SCH ×2 (09:58→22:31)
--- NOTE | 2020-07-10 10:53 | Speech Therapy Daily Note ---
Speech Daily Progress Note Subjective Date Seen by Provider: Jul 10, 2020 Time Seen by Provider: 00:30 Patient was resting in her recliner. She stated it was 9 o'clock at night so I informed it was in the morning. Objective Patient completed a series of general information questions at the beginning level with 75% given moderate v/c's and repetition. Assessment Assessment Current Status: Fair Progress Treatment Plan Continue Plan of Care Speech Short Term Goals Short Term Goals Short Term Goals 1) The patient will complete memory tasks related to her daily needs at 90% or greater with minimal cues. 2) The patient will complete problem solving tasks related to her daily needs at 90% or greater with minimal cues. 3) The patient will complete safety awareness tasks related to her daily needs at 90% or greater with minimal cues. Speech Brakes Inspector Goals Brakes Inspector Goals Patient will improve cognitive-communication necessary for safety and daily living tasks with minimal assist. Speech-Plan Patient/Family Goals Patient/Family Goals: Patient plans on returning to [facility] upon discharge. Treatment Plan Speech Therapy Treatment Plan: Continue Plan of Care Frequency: 4 times per week (Patient will receive skilled ST 4-5x per week) Estimated Hrs Per Day: .5 hour per day Rehab Potential: Fair Barriers to Learning: Patient's recent COVID and flu illness, age, cognitive deficits Pt/Family Agrees to Plan: Yes Safety Risks/Education Teaching Recipient: Patient Teaching Methods: Demonstration, Discussion Response to Teaching: Verbalize Understanding, Return Demonstration Education Topics Provided: Safety within her room and continued communication Time Speech Therapy Time In: 09:00 Speech Therapy Time Out: 09:30 Total Billed Time: 30 Billed Treatment Time 1, MAGALYS Mart Jul 10, 2020 10:53
--- NOTE | 2020-07-10 11:08 | Physical Therapy Daily Note ---
PT Daily Note-Current Subjective Pt sitting on BSC with Nurse present due to pt attempting to get up without help and is unsafe to due so. Mental Status Patient Orientation: Person, Confused Transfers SCALE: Activities may be completed with or without assistive devices. 5-Ihfyxrxtcw-ttpuqey completes the activity by him/herself with no assistance from a helper. 5-Set-up or Clean-up Assistance-helper sets up or cleans up; patient completes activity. [place] assists only prior to or following the activity. 4-Supervision or Touching Assistance-helper provides verbal cues and/or touching/steadying and/or contact guard assistance as patient completes activity . Assistance may be provided throughout the activity or intermittently. 3-Partial/Moderate Assistance-helper does LESS THAN HALF the effort. [place] lifts, holds or supports trunk or limbs, but provides less than half the effort. 2-Substantial/Maximal Assistance-helper does MORE THAN HALF the effort. [place] lifts or holds trunk or limbs and provides more than half the effort. 3-Wsnnbxfbm-ufioku does ALL the effort. Patient does none of the effort to complete the activity. Or, the assistance of 2 or more helpers is required for the patient to complete the activity. If activity was not attempted, code reason: 7-Patient Refused. 9-Not Applicable-not attempted and the patient did not perform the activity before the current illness, exacerbation or injury. 10-Not Attempted due to Environmental Limitations-(lack of equipment, weather restraints, etc.). 88-Not Attempted due to Medical Conditions or Safety Concerns. Sit to Lying (QC): 4 Sit to Stand (QC): 4 Gait Training Does the Patient Walk?: Yes Distance: 15' Walk 10 feet (QC): 4 Gait Persons Needed: 1 Gait Assistive Device: FWW Wheelchair Training Does the Pt Use a Wheelchair?: Yes Wheel 50 ft with 2 turns (QC): 4 Type of Wheelchair: Manual Treatments Pt stood at sink with CGA for safety and completed by self. Pt required assist to don lower body clothing, pt would place hand on waist band then drop it stating you can do it. CGA with ambulation when pt would complete. With encouragement, pt able to cleanse self after toileting and assist to manipulate clothing. Pt completes [facility] mobility with VC. Pt returns to room and transferred to bed. All needs met, call light in hand. Assessment Current Status: Hold Per Dr/Nursing Pt has no motivation to complete tasks and still remains very confused. Pt has no safety awareness. VC and at times TC to complete tasks. PT Short Term Goals Short Term Goals Time Frame: Jul 15, 2020 Roll Left & Right: 6 Sit to lyin Lying to sitting on side of be: 4 Sit to stand: 4 Chair/psq-wb-chscd transfer: 4 Walk 10 feet: 4 Walk 50 feet with two turns: 4 PT Half-Way Goals Half-Way Goals PT [employer] Supervisor Goals Time Frame: Jul 29, 2020 Roll Left & Right (QC): 6 Sit to Lying (QC): 6 Lying-Sitting on Side/Bed(QC): 6 Sit to Stand (QC): 5 Chair/Wgm-gq-Pqury Xfer(QC): 5 Toilet Transfer (QC): 5 Car Transfer (QC): 5 Does the Patient Walk: Yes Walk 10 feet (QC): 5 Walk 50ft with 2 Turns (QC): 5 Walk 150 ft (QC): 88 Walking 10ft on Uneven Surface: 4 1 Step (curb) (QC): 88 4 Steps (QC): 88 12 Steps (QC): 88 Picking up an Object (QC): 88 Wheel 50 feet with 2 turns (QC: 4 Wheel 150 feet: 4 PT Plan Problem List Problem List: Activity Tolerance, Functional Strength, Safety, Balance, Gait, Transfer Treatment/Plan Treatment Plan: Continue Plan of Care Treatment Plan: Bed Mobility, Education, Functional Activity Tang, Functional Strength, Group Therapy, Gait, Safety, Therapeutic Exercise, Transfers Treatment Duration: Jul 15, 2020 Frequency: Modified Program (IRF) Estimated Hrs Per Day: 1 hour per day Patient and/or Family Agrees t: Yes Safety Risks/Education Patient Education: Gait Training, Transfer Techniques, Correct Positioning, W/C Management, Safety Issues Teaching Recipient: Patient Teaching Methods: Discussion Response to Teaching: Reinforcement Needed Time/GCodes Time In: 1000 Time Out: 1100 Total Billed Treatment Time: 60 Total Billed Treatment 1, FA x3 (40m) & WCH (20m) ADELINE GREER JANITORIAL MANAGER Jul 10, 2020 11:08
--- NOTE | 2020-07-10 11:16 | Occupational Ther Daily Note ---
OT Current Status-Daily Note Subjective Pt alert, sitting on BSC. Pt participates in therapy though requires encouragement to initiate tasks. Pt c/o headaches, pain in back, under breasts, B LE though did not rate. Mental Status/Objective Patient Orientation: Person Attachments: IV (midline) ADL-Treatment Pt stood at sink with CGA for safety and completed by self. Pt required assist to don lower body clothing, pt would place hand on waist band then drop it stating you can do it. CGA with ambulation when pt would complete. With encouragement, pt able to cleanse self after toileting and assist to manipulate clothing. Therapy Code Descriptions/Definitions Functional [place] Measure: 0=Not Assessed/NA 4=Minimal Assistance 1=Total Assistance 5=Supervision or Setup 2=Maximal Assistance 6=Modified [place] 3=Moderate Assistance 7=Complete IndependenceSCALE: Activities may be completed with or without assistive devices. 8-Fpmvovjwlu-dozxjvx completes the activity by him/herself with no assistance from a helper. 5-Set-up or Clean-up Assistance-helper sets up or cleans up; patient completes activity. [place] assists only prior to or following the activity. 4-Supervision or Touching Assistance-helper provides verbal cues and/or touching/steadying and/or contact guard assistance as patient completes activity. Assistance may be provided throughout the activity or intermittently. 3-Partial/Moderate Assistance-helper does LESS THAN HALF the effort. [place] lifts, holds or supports trunk or limbs, but provides less than half the effort. 2-Substantial/Maximal Assistance-helper does MORE THAN HALF the effort. [place] lifts or holds trunk or limbs and provides more than half the effort. 2-Jckvqxgwg-qxkxtk does ALL the effort. Patient does none of the effort to complete the activity. Or, the assistance of 2 or more helpers is required for the patient to complete the activity. If activity was not attempted, code reason: 7-Patient Refused. 9-Not Applicable-not attempted and the patient did not perform the activity before the current illness, exacerbation or injury. 10-Not Attempted due to Environmental Limitations-(lack of equipment, weather restraints, etc.). 88-Not Attempted due to Medical Conditions or Safety Concerns. Oral Hygiene (QC): 4 Lower Body Dressing (QC): 2 On/Off Footwear: 2 Toileting Hygiene (QC): 3 Toilet Transfer (QC): 4 OT Short Term Goals Short Term Goals Time Frame: Jul 15, 2020 Eatin Oral hygiene: 3 Toileting hygiene: 3 Shower/bathe self: 3 Upper body dressin Lower body dressin Putting on/taking off footwear: 3 OT Group Home Goals Director It Goals Time Frame: Jul 29, 2020 Eating (QC): 6 Oral Hygiene (QC): 6 Toileting Hygiene (QC): 6 Shower/Bathe Self (QC): 4 Upper Body Dressing (QC): 5 Lower Body Dressing (QC): 4 On/Off Footwear (QC): 5 Additional Goals: 1-Demonstrate ADL Tasks, 2-Verbalize Understanding, 3- ImproveStrength/Tang 1=Demonstrate adherence to instructed precautions during ADL tasks. 2=Patient will verbalize/demonstrate understanding of assistive devices/modifications for ADL. 3=Patient will improve strength/tolerance for activity to enable patient to perform ADL's. OT Education/Plan Problem List/Assessment Assessment: Decreased Activ Tolerance, Decreased Safety Aware, Decreased UE Strength, Impaired Cognition, Impaired Coordination, Impaired Funct Balance, Impaired Self-Care Skills Discharge Recommendations Plan/Recommendations: Continue POC Treatment Plan/Plan of Care Patient would benefit from OT for education, treatment and training to promote independence in ADL's, mobility, safety and/or upper extremity function for ADL's. Plan of Care: ADL Retraining, Functional Mobility, Group Exercise/Act as Ind, UE Funct Exercise/Act Treatment Duration: Jul 29, 2020 Frequency: At least 5 of 7 days/Wk (IRF) Estimated Hrs Per Day: Other (Due to a Covid-19 viral infection, the patient has deficits that warrant inpatient Acute Rehab. The patient will clearly benefit from intensive PT and OT, however, due to patient's observed endurance and therapy considerations, she may not be able to to tolerate the full 3 hours of scheduled therapy. Therefore, she will be scheduled for as much therapy as she can tolerate with intentional rest breaks, shortened sessions, including providing therapy across 6 to 7 days. As the patient tolerates, the intensity, frequency, and duration of her therapy program will be increased.) Agreement: Yes Rehab Potential: Fair Time/GCodes Start Time: 10:00 Stop Time: 11:00 Total Time Billed (hr/min): 60 Billed Treatment Time 1 visit-FA 4 (60 min) MIGNON CASTILLO Jul 10, 2020 11:16
[2020-07-10] MEDS: ALPRAZolam 0.25 MG (XANAX) TAB PO PRN ×2 (15:47→23:24)
[2020-07-10 17:08] VITALS: BP 120/52
[2020-07-10] MEDS: ENOXAPARIN 40 MG/0.4 ML (LOVENOX) SYR SC SCH (22:31)
--- NOTE | 2020-07-11 05:13 | PM&R Progress Note ---
Subjective HPI/CC On Admission Date Seen by Provider: Jul 11, 2020 Time Seen by Provider: 09:00 Subjective/Events-last exam 07/11/20: Lactulose, SSE until BM will be given Suppository daily if needed More confused today Working with therapy Incontinence 07/10/20: Pt will go to assisted living at [place] at [facility] Decreased walking with walker due to confusion Dry cough still, also taking Tesselon Pearles Last had a BM on July 08 so given laxatives Will recheck her progress tomorrow Maintained on room air Confusion requires co-treating with therapies 07/09/20: Pt has some labile BP Has some sun-downers from dementia, she thought she was in [facility] last night Incontinent of bowel and bladder Tessalon Perles given for cough from Covid and Influenza B Denies any other significant issues Review of Systems General: Fatigue, Malaise Neurological: Weakness, Incoordination, Confusion Objective Exam Vital Signs Vital Signs Date Time Temp Pulse Resp B/P (MAP) Pulse Ox O2 Delivery O2 Flow Rate FiO2 07/11/20 20:00 Room Air 07/11/20 18:03 36.4 76 16 104/72 (83) 96 Capillary Refill : Less Than 3 Seconds General Appearance: No Apparent Distress, WD/WN, Chronically ill HEENT: PERRL/EOMI, Normal ENT Inspection, Pharynx Normal Neck: Full Range of Motion, Normal Inspection, Non Tender, Supple, Carotid Bruit Respiratory: Chest Non Tender, Lungs Clear, No Accessory Muscle Use, No Respiratory Distress, Decreased Breath Sounds Cardiovascular: Regular Rate, Rhythm, No Edema, No Gallop, No JVD, No Murmur, Normal Peripheral Pulses Gastrointestinal: Normal Bowel Sounds, No Organomegaly, No Pulsatile Mass, Non Tender, Soft Back: Normal Inspection, No CVA Tenderness, No Vertebral Tenderness Extremity: Normal Capillary Refill, Normal Inspection, Normal Range of Motion, Non Tender, No Calf Tenderness, No Pedal Edema Neurologic/Psychiatric: Alert, Oriented x3, No Motor/Sensory Deficits, Normal Mood/Affect, Motor Weakness (3/5 strength lower extremities and 4/5 strength upper extremities) Skin: Normal Color, Warm/Dry Lymphatic: No Adenopathy Results/Procedures Lab Patient resulted labs reviewed. [facility]IM Transfers Therapy Code Descriptions/Definitions Functional [place] Measure: 0=Not Assessed/NA 4=Minimal Assistance 1=Total Assistance 5=Supervision or Setup 2=Maximal Assistance 6=Modified [place] 3=Moderate Assistance 7=Complete IndependenceSCALE: Activities may be completed with or without assistive devices. 7-Yxvjmyujag-dvrvykx completes the activity by him/herself with no assistance from a helper. 5-Set-up or Clean-up Assistance-helper sets up or cleans up; patient completes activity. [place] assists only prior to or following the activity. 4-Supervision or Touching Assistance-helper provides verbal cues and/or touching/steadying and/or contact guard assistance as patient completes a ctivity. Assistance may be provided throughout the activity or intermittently. 3-Partial/Moderate Assistance-helper does LESS THAN HALF the effort. [place] lifts, holds or supports trunk or limbs, but provides less than half the effort. 2-Substantial/Maximal Assistance-helper does MORE THAN HALF the effort. [place] lifts or holds trunk or limbs and provides more than half the effort. 7-Fgvhhynts-yycgby does ALL the effort. Patient does none of the effort to complete the activity. Or, the assistance of 2 or more helpers is required for the patient to complete the activity. If activity was not attempted, code reason: 7-Patient Refused. 9-Not Applicable-not attempted and the patient did not perform the activity before the current illness, exacerbation or injury. 10-Not Attempted due to Environmental Limitations-(lack of equipment, weather restraints, etc.). 88-Not Attempted due to Medical Conditions or Safety Concerns. Roll Left to Right (QC): 4 Sit to Lying (QC): 4 Sit to Stand (QC): 4 Chair/Ksl-fo-Girwk Xfer(QC): 4 Car Transfer (QC): 3 Gait Training Does the Patient Walk?: Yes Distance: 15' Walk 10 feet (QC): 4 Walk 50 ft with 2 Turns(QC): 88 Walk 150 ft (QC): 88 Walking 10ft/uneven surface-QC: 88 Gait Persons Needed: 1 Gait Assistive Device: FWW Wheelchair Training Does the Pt Use a Wheelchair?: Yes Wheel 50 ft with 2 turns (QC): 4 Wheel 150 ft (QC): 1 Type of Wheelchair: Manual Stair Training 1 Step (curb) (QC): 88 4 Steps (QC): 88 12 Steps (QC): 88 Balance Picking up an Object (QC): 88 ADL-Treatment Eating (QC): 6 Oral Hygiene (QC): 4 Bathing Location: L Arm, R Arm, Chest, Abdomen Shower/Bathe Self (QC): 2 Upper Body Dressing (QC): 88 Lower Body Dressing (QC): 2 On/Off Footwear (QC): 2 Toileting Hygiene (QC): 3 Toilet Transfer (QC): 4 Assessment/Plan Assessment and Plan Assess & Plan/Chief Complaint Assessment: 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 PNA s/p Influenza B h/o TBI Seizures Dementia CAD HTN HLP Anemia Plan: Monitor seizures Home meds O2 IRF protocol 07/09/20: Monitor BP O2 management Monitor owning 07/10/20: Monitor O2 sat Cognition focus with therapy Increase ambulation 07/11/20: BM regimen Monitor confusion (1) Myopathy (2) Pneumonia due to COVID-19 virus Status: Acute (3) Acute kidney injury superimposed on chronic kidney disease Status: Acute (4) Seizure disorder Status: Chronic (5) Influenza B Status: Acute (6) Altered mental status Status: Acute (7) Hypotension Status: Acute (8) Hypoglycemia Status: Acute (9) History of traumatic brain injury Status: Chronic DADA SANDOVAL DO Jul 11, 2020 05:13
[2020-07-11 06:00] VITALS: BP 102/52
[2020-07-11] MEDS: PANTOPRAZOLE 40 MG (PROTONIX) TAB PO SCH (06:00)
[2020-07-11] MEDS: RT-ALBUTEROL INHALER HFA (VENTOLIN HFA) 18 GM IH SCH (06:58)
[2020-07-11] MEDS: LEVETIRACETAM 1,000 MG (KEPPRA) TABLET PO SCH ×2 (08:42→19:53)
[2020-07-11] MEDS: OXYBUTYNIN (DITROPAN) 5 MG TAB PO SCH ×3 (08:42→19:53)
[2020-07-11] MEDS: DIVALPROEX EXT RELEASE 500 MG (DEPAKOTE ER) TAB PO SCH ×2 (08:42→19:53)
[2020-07-11] MEDS: PRAMIPEXOLE 0.5 MG TAB (MIRAPEX) PO SCH ×3 (08:42→19:53)
[2020-07-11] MEDS: ASPIRIN E.C. 81 MG (ECOTRIN) TAB PO SCH (08:42)
[2020-07-11] MEDS: DOCUSATE SODIUM 100 MG (COLACE) CAP PO SCH ×2 (08:42→19:53)
[2020-07-11] MEDS: toPIRamate 25 MG (TOPAMAX) TAB PO SCH ×2 (08:42→19:54)
[2020-07-11] MEDS: polyethylene glycoL POWDER 17 GM (MIRALAX) PACK PO SCH ×2 (08:42→19:56)
[2020-07-11] MEDS: SENNA W/DOCUSATE (SENOKOT S) TABLET PO SCH ×2 (08:42→19:54)
[2020-07-11] MEDS: DULoxetine 30 MG (CYMBALTA) CAP PO SCH (08:42)
[2020-07-11] MEDS: prednisoLONE 1% OPTH (PRED FORTE) 5 ML BTL OU SCH (08:43)
[2020-07-11] MEDS: LACTULOSE SYRUP 10GM/15ML (ENULOSE) 30ML UDC PO PRN ×2 (10:52→19:56)
[2020-07-11] MEDS: ACETAMINOPHEN 500 MG TAB (TYLENOL) PO PRN (10:53)
--- NOTE | 2020-07-11 11:01 | Physical Therapy Daily Note ---
PT Daily Note-Current Subjective Pt. confused, easily distracted, resistive of Rx and activity at times, c/o pain in foot and leg, Does not rate, nursing contacted for pain meds Pain Location: Left Location Body Site: Foot Appearance stares in to space, closes eyes, often does not respond to questions and activity Mental Status Patient Orientation: Confused Attachments: Other-See Comments (mask) Transfers SCALE: Activities may be completed with or without assistive devices. 5-Psgocmplpe-tqacqjp completes the activity by him/herself with no assistance from a helper. 5-Set-up or Clean-up Assistance-helper sets up or cleans up; patient completes activity. [place] assists only prior to or following the activity. 4-Supervision or Touching Assistance-helper provides verbal cues and/or touching/steadying and/or contact guard assistance as patient completes activity. Assistance may be provided throughout the activity or intermittently. 3-Partial/Moderate Assistance-helper does LESS THAN HALF the effort. [place] lifts, holds or supports trunk or limbs, but provides less than half the effort. 2-Substantial/Maximal Assistance-helper does MORE THAN HALF the effort. [place] lifts or holds trunk or limbs and provides more than half the effort. 7-Hvgbtpszc-cvxqpu does ALL the effort. Patient does none of the effort to complete the activity. Or, the assistance of 2 or more helpers is required for the patient to complete the activity. If activity was not attempted, code reason: 7-Patient Refused. 9-Not Applicable-not attempted and the patient did not perform the activity before the current illness, exacerbation or injury. 10-Not Attempted due to Environmental Limitations-(lack of equipment, weather restraints, etc.). 88-Not Attempted due to Medical Conditions or Safety Concerns. Roll Left & Right (QC): 4 Sit to Stand (QC): 3 Chair/Ceh-xl-Mmkmq Xfer(QC): 4 Toilet Transfer (QC): 3 pt. apparently not giving full effort, as her abilities wax and wane during rx. Pt. responding to and visit with her much better and more enthusiastically than with these PT OT therapists. Gait Training Does the Patient Walk?: Yes Walk 10 feet (QC): 4 Walk 50 ft with 2 Turns(QC): 4 Gait Persons Needed: 1 (and w/c follow up) Gait Assistive Device: FWW slow, antalgic, uneven step length, stops, closes eyes or rolls eyes for significant periods of time. Wheelchair Training Does the Pt Use a Wheelchair?: Yes Wheel 50 ft with 2 turns (QC): 3 Type of Wheelchair: Manual Exercises NuStep Minutes: 8 NuStep Workload: 4 Treatments PT OT co Rx secondary to low level of tolerance for Rx, coordination of 2 skilled therapists required for effective U&L extremity activities of toileting, TRFs, and clean up as well as w/c mob etc Assessment Current Status: Fair Progress difficulty staying on task, poor participation , weakness but appears pt. does not give full effort PT Short Term Goals Short Term Goals Time Frame: Jul 15, 2020 Roll Left & Right: 6 Sit to lyin Lying to sitting on side of be: 4 Sit to stand: 4 Chair/wcs-vm-fbspg transfer: 4 Walk 10 feet: 4 Walk 50 feet with two turns: 4 PT Fdc Goals Fdc Goals PT Fdc Goals Time Frame: Jul 29, 2020 Roll Left & Right (QC): 6 Sit to Lying (QC): 6 Lying-Sitting on Side/Bed(QC): 6 Sit to Stand (QC): 5 Chair/Xbz-ac-Respx Xfer(QC): 5 Toilet Transfer (QC): 5 Car Transfer (QC): 5 Does the Patient Walk: Yes Walk 10 feet (QC): 5 Walk 50ft with 2 Turns (QC): 5 Walk 150 ft (QC): 88 Walking 10ft on Uneven Surface: 4 1 Step (curb) (QC): 88 4 Steps (QC): 88 12 Steps (QC): 88 Picking up an Object (QC): 88 Wheel 50 feet with 2 turns (QC: 4 Wheel 150 feet: 4 PT Plan Treatment/Plan Treatment Plan: Continue Plan of Care Treatment Plan: Bed Mobility, Education, Functional Activity Tang, Functional Strength, Group Therapy, Gait, Safety, Therapeutic Exercise, Transfers Treatment Duration: Jul 15, 2020 Frequency: Modified Program (IRF) Estimated Hrs Per Day: 1 hour per day Patient and/or Family Agrees t: Yes Safety Risks/Education Patient Education: Gait Training, Transfer Techniques, Correct Positioning, W/C Management, Disease Process, Safety Issues Teaching Recipient: Patient Teaching Methods: Demonstration, Discussion Response to Teaching: Reinforcement Needed Time/GCodes Time In: 1000 Time Out: 1100 Total Billed Treatment Time: 60 Total Billed Treatment GT25m,FA20m,EX15m ERIBERTO ROBERTSON INVENTORY ANALYST Jul 11, 2020 11:00
--- NOTE | 2020-07-11 11:04 | Occupational Ther Daily Note ---
OT Current Status-Daily Note Subjective Pt alert, sitting in recliner. As ELIEL walked into room, pt stated that she needed to go home. When ELIEL began to talk to pt about her home and what she needed to do for herself there, pt closed eyes and stopped talking until JULIAN said name and pt unable to answer questions. Pt stated that she was in [facility], ELIEL reoriented pt about being in [place], [place] at [facility]. Pt stated that she hurt and said she did not have any pain pills this am. Reported to nrsg and nrsg brought meds. ADL-Treatment Therapy Code Descriptions/Definitions Functional [place] Measure: 0=Not Assessed/NA 4=Minimal Assistance 1=Total Assistance 5=Supervision or Setup 2=Maximal Assistance 6=Modified [place] 3=Moderate Assistance 7=Complete IndependenceSCALE: Activities may be completed with or without assistive devices. 5-Whojohudot-tgeycfi completes the activity by him/herself with no assistance from a helper. 5-Set-up or Clean-up Assistance-helper sets up or cleans up; patient completes activity. [place] assists only prior to or following the activity. 4-Supervision or Touching Assistance-helper provides verbal cues and/or touching/steadying and/or contact guard assistance as patient completes activity. Assistance may be provided throughout the activity or intermittently. 3-Partial/Moderate Assistance-helper does LESS THAN HALF the effort. [place] lifts, holds or supports trunk or limbs, but provides less than half the effort. 2-Substantial/Maximal Assistance-helper does MORE THAN HALF the effort. [place] lifts or holds trunk or limbs and provides more than half the effort. 8-[place]-smovly does ALL the effort. Patient does none of the effort to complete the activity. Or, the assistance of 2 or more helpers is required for the patient to complete the activity. If activity was not attempted, code reason: 7-Patient Refused. 9-Not Applicable-not attempted and the patient did not perform the activity before the current illness, exacerbation or injury. 10-Not Attempted due to Environmental Limitations-(lack of equipment, weather restraints, etc.). 88-Not Attempted due to Medical Conditions or Safety Concerns. Other Treatment Co-treat with PT ([id number]), skills of 2 clinicians required for skilled care and treatment due to decreased activity tolerance, debility and increased SOA. PT focusing on mobility and transfers while OT focusing on B UE placement with mobility and ADLs. Pt is inconsistent with transfers, mobility and ADLs. At times pt is able to complete mobility with CGA then will need increased assistance and always needs verbal cues cues for hand placement and manipulate FWW. Pt requires verbal cues for hand placement to hike pants over hips though at times will be unable to sequence and manipulate clothing at all and will need assistance to balance and hike pants over hips. Pt sat to cleanse self after toilet with verbal cues to initiate. Pt then demonstrated ability to propel w/c from room to therapy gym though required encouragement to initiate and hand over hand to place hands on w/c rims. Pt then perked up when speaking to Dr. Montiel. Pt transferred to [facility] to complete UE/LE strengthening and ROM. Pt required assistance with B UE to maintain product marketing specialist and movement on machine. Pt has demonstrated ability to complete all tasks though will check out during session or refuse to complete tasks by stating that something hurts or "just wait a minute" and pt will stand or sit with eyes closed and not return to task. Pt ambulated from therapy gym to room using FWW, assist to manipulate FWW and w/c behind pt for safety. After session, pt sitting in recliner with call light/phone in reach. Nrsg in room. All needs met in room. OT Short Term Goals Short Term Goals Time Frame: Jul 15, 2020 Eatin Oral hygiene: 3 Toileting hygiene: 3 Shower/bathe self: 3 Upper body dressin Lower body dressin Putting on/taking off footwear: 3 OT Hoe Runner Goals Hoe Runner Goals Time Frame: Jul 29, 2020 Eating (QC): 6 Oral Hygiene (QC): 6 Toileting Hygiene (QC): 6 Shower/Bathe Self (QC): 4 Upper Body Dressing (QC): 5 Lower Body Dressing (QC): 4 On/Off Footwear (QC): 5 Additional Goals: 1-Demonstrate ADL Tasks, 2-Verbalize Understanding, 3- ImproveStrength/Tang 1=Demonstrate adherence to instructed precautions during ADL tasks. 2=Patient will verbalize/demonstrate understanding of assistive devices/modifications for ADL. 3=Patient will improve strength/tolerance for activity to enable patient to perform ADL's. OT Education/Plan Problem List/Assessment Assessment: Decreased Activ Tolerance, Decreased Safety Aware, Decreased UE Strength, Impaired Cognition, Impaired Coordination, Impaired Funct Balance, Impaired Self-Care Skills Discharge Recommendations Plan/Recommendations: Continue POC Treatment Plan/Plan of Care Patient would benefit from OT for education, treatment and training to promote independence in ADL's, mobility, safety and/or upper extremity function for ADL's. Plan of Care: ADL Retraining, Functional Mobility, Group Exercise/Act as Ind, UE Funct Exercise/Act Treatment Duration: Jul 29, 2020 Frequency: At least 5 of 7 days/Wk (IRF) Estimated Hrs Per Day: Other (Due to a Covid-19 viral infection, the patient has deficits that warrant inpatient Acute Rehab. The patient will clearly benefit from intensive PT and OT, however, due to patient's observed endurance and therapy considerations, she may not be able to to tolerate the full 3 hours of scheduled therapy. Therefore, she will be scheduled for as much therapy as she can tolerate with intentional rest breaks, shortened sessions, including providing therapy across 6 to 7 days. As the patient tolerates, the intensity, frequency, and duration of her therapy program will be increased.) Agreement: Yes Rehab Potential: Fair Time/GCodes Start Time: 10:00 Stop Time: 11:00 Total Time Billed (hr/min): 60 Billed Treatment Time 1 visit-ADL 1 (15 min) FA 2 (30 min) EX 1 (15 min) co-treat with PT 60 min MIGNON CASTILLO Jul 11, 2020 11:04
--- NOTE | 2020-07-11 13:41 | NUR ---
CM/SS ADMISSION and PATIENT CARE CONFERENCE Patient admitted to ARU 07/08/20 from [facility] where she was an inpatient 06/30 to 07/08/20. She tested positive for Covid 06/21 and for Flu B 06/29. 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 Patient has established residency with assisted living [facility] and will return there if recovered to a level of performance to meet their criteria. PCP: Dr. Addy Farr, [place] [facility]: [facility] [place] INSURANCE: Medicare, [employer] DME: Patient reports she has a 4WW and FWW. BARRIERS TO DISCHARGE: [facility] indicated willingness to accept patient at a slightly lower level if she was on a path of progressive gains toward previous level of functioning. Hard of hearing compounded by required masks, moderate dementia impairs cognitively. Patient appeared drowsy and drifted off of thought process. CONTACTS: Addy [place], Brother, DPOA-HC, POA [address] [place] [address] Landline: [phone] Aline Ford, Director of [address] [id number] Patient's brother was updated by phone. He understands the purpose and process of the weekly patient care conference and that patient's first review was yesterday. She was approved for continued stay with next review 07/17/20.
--- NOTE | 2020-07-11 13:47 | Speech Therapy Daily Note ---
Speech Daily Progress Note Subjective Date Seen by Provider: Jul 11, 2020 Time Seen by Provider: 00:30 Patient resting in her recliner and states she is cold. Patient provided a warm blanket and she stated that made her feel better. Patient was lethargic today. requiring frequent prompts to engage in therapy. Objective Patient completed a series of safety awareness cards with 70% accuracy given mod to max cuing to complete. Assessment Assessment Current Status: Fair Progress Treatment Plan Continue Plan of Care Speech Short Term Goals Short Term Goals Short Term Goals 1) The patient will complete memory tasks related to her daily needs at 90% or greater with minimal cues. 2) The patient will complete problem solving tasks related to her daily needs at 90% or greater with minimal cues. 3) The patient will complete safety awareness tasks related to her daily needs at 90% or greater with minimal cues. Speech Senior Living Goals Senior Living Goals Patient will improve cognitive-communication necessary for safety and daily living tasks with minimal assist. Speech-Plan Patient/Family Goals Patient/Family Goals: Patient wants to return to her AL apartment and is requesting to go now. Patient educated she needed to improve her strength and mobility prior to discharge. Patient voiced understanding. Treatment Plan Speech Therapy Treatment Plan: Continue Plan of Care Treatment Duration: Jul 10, 2020 Frequency: 4 times per week (Patient will receive skilled ST 4-5x per week) Estimated Hrs Per Day: .5 hour per day Rehab Potential: Fair Barriers to Learning: Patient's decreased cognitive function, age Pt/Family Agrees to Plan: Yes Safety Risks/Education Teaching Recipient: Patient Teaching Methods: Demonstration, Discussion Response to Teaching: Verbalize Understanding, Return Demonstration, Reinforcement Needed Education Topics Provided: Continued safety and communication of wants/needs. Time Speech Therapy Time In: 09:00 Speech Therapy Time Out: 09:30 Total Billed Time: 30 Billed Treatment Time 1, MAGALYS Mart Jul 11, 2020 13:47
[2020-07-11 18:03] VITALS: BP 104/72
[2020-07-11] MEDS: ENOXAPARIN 40 MG/0.4 ML (LOVENOX) SYR SC SCH (19:56)
[2020-07-12] MEDS: RT-ALBUTEROL INHALER HFA (VENTOLIN HFA) 18 GM IH SCH ×2 (00:19→19:38)
[2020-07-12] MEDS: ALPRAZolam 0.25 MG (XANAX) TAB PO PRN ×2 (04:55→20:11)
[2020-07-12] MEDS: PANTOPRAZOLE 40 MG (PROTONIX) TAB PO SCH (05:41)
[2020-07-12 06:13] VITALS: BP 109/53
[2020-07-12] MEDS: OXYBUTYNIN (DITROPAN) 5 MG TAB PO SCH ×3 (07:40→20:10)
[2020-07-12] MEDS: DOCUSATE SODIUM 100 MG (COLACE) CAP PO SCH ×2 (07:40→20:06)
[2020-07-12] MEDS: DULoxetine 30 MG (CYMBALTA) CAP PO SCH (07:40)
[2020-07-12] MEDS: PRAMIPEXOLE 0.5 MG TAB (MIRAPEX) PO SCH ×3 (07:40→20:11)
[2020-07-12] MEDS: ASPIRIN E.C. 81 MG (ECOTRIN) TAB PO SCH (07:40)
[2020-07-12] MEDS: SENNA W/DOCUSATE (SENOKOT S) TABLET PO SCH ×2 (07:41→19:41)
[2020-07-12] MEDS: LEVETIRACETAM 1,000 MG (KEPPRA) TABLET PO SCH ×2 (07:41→20:10)
[2020-07-12] MEDS: toPIRamate 25 MG (TOPAMAX) TAB PO SCH ×2 (07:41→20:11)
[2020-07-12] MEDS: DIVALPROEX EXT RELEASE 500 MG (DEPAKOTE ER) TAB PO SCH ×2 (07:41→20:10)
[2020-07-12] MEDS: polyethylene glycoL POWDER 17 GM (MIRALAX) PACK PO SCH ×2 (07:41→19:41)
--- NOTE | 2020-07-12 11:17 | Occupational Ther Daily Note ---
OT Current Status-Daily Note Subjective Pt sleeping in bed, difficult to wake. Pt c/o pain throughout session, throughout body, reported to nrsg. Pt only oriented to name. Pt kept closing eyes and shaking head throughout session. Warm, red around B lower legs, reported to nrsg. Pt stated that there was no tenderness. Mental Status/Objective Patient Orientation: Person, Confused Attachments: IV (midline) ADL-Treatment Co-treat with PT ([id number]), skills of 2 clinicians required for skilled care and treatment due to decreased activity tolerance, debility and increased SOA. PT focusing on mobility and transfers while OT focusing on B UE placement with mobility and ADLs. Pt is inconsistent with transfers, mobility and ADLs. At times pt is able to complete mobility with CGA then will need increased assistance and always needs verbal cues cues for hand placement and manipulate FWW. Pt requires verbal cues for hand placement to hike pants over hips though at times will be unable to sequence and manipulate clothing at all and will need assistance to balance and hike pants over hips. Pt stated that she did not have to have BM though BM smear in brief. When attempting to stand pt, pt stated she was having a bowel movement. Pt requires verbal cues to initiate any ADLs even then pt will only hold items to cleanse self and not complete will require assistance to complete. Pt had shower today though only held wash cloth to chest and washed under one arm, assist to complete all other areas. Pt did not initiate any ADL or mobility task requested of her. After session, pt lying in bed with call light/phone in reach. All needs met in room. Safety measures in place. Therapy Code Descriptions/Definitions Functional [place] Measure: 0=Not Assessed/NA 4=Minimal Assistance 1=Total Assistance 5=Supervision or Setup 2=Maximal Assistance 6=Modified [place] 3=Moderate Assistance 7=Complete IndependenceSCALE: Activities may be completed with or without assistive devices. 1-Zcgixthapc-flivuoz completes the activity by him/herself with no assistance from a helper. 5-Set-up or Clean-up Assistance-helper sets up or cleans up; patient completes activity. [place] assists only prior to or following the activity. 4-Supervision or Touching Assistance-helper provides verbal cues and/or touching/steadying and/or contact guard assistance as patient completes activity. Assistance may be provided throughout the activity or intermittently. 3-Partial/Moderate Assistance-helper does LESS THAN HALF the effort. [place] lifts, holds or supports trunk or limbs, but provides less than half the effort. 2-Substantial/Maximal Assistance-helper does MORE THAN HALF the effort. [place] lifts or holds trunk or limbs and provides more than half the effort. 5-Eypjdhvom-ukofui does ALL the effort. Patient does none of the effort to complete the activity. Or, the assistance of 2 or more helpers is required for the patient to complete the activity. If activity was not attempted, code reason: 7-Patient Refused. 9-Not Applicable-not attempted and the patient did not perform the activity before the current illness, exacerbation or injury. 10-Not Attempted due to Environmental Limitations-(lack of equipment, weather restraints, etc.). 88-Not Attempted due to Medical Conditions or Safety Concerns. Shower/Bathe Self (QC): 1 Upper Body Dressing (QC): 2 Lower Body Dressing (QC): 2 On/Off Footwear: 2 Toileting Hygiene (QC): 2 Toilet Transfer (QC): 2 OT Short Term Goals Short Term Goals Time Frame: Jul 15, 2020 Eatin Oral hygiene: 3 Toileting hygiene: 3 Shower/bathe self: 3 Upper body dressin Lower body dressin Putting on/taking off footwear: 3 OT Skilled Nursing Goals Skilled Nursing Goals Time Frame: Jul 29, 2020 Eating (QC): 6 Oral Hygiene (QC): 6 Toileting Hygiene (QC): 6 Shower/Bathe Self (QC): 4 Upper Body Dressing (QC): 5 Lower Body Dressing (QC): 4 On/Off Footwear (QC): 5 Additional Goals: 1-Demonstrate ADL Tasks, 2-Verbalize Understanding, 3- ImproveStrength/Tang 1=Demonstrate adherence to instructed precautions during ADL tasks. 2=Patient will verbalize/demonstrate understanding of assistive devices/modifications for ADL. 3=Patient will improve strength/tolerance for activity to enable patient to perform ADL's. OT Education/Plan Problem List/Assessment Assessment: Decreased Activ Tolerance, Decreased UE Strength, Impaired Cognition, Impaired Self-Care Skills Discharge Recommendations Plan/Recommendations: Continue POC Treatment Plan/Plan of Care Patient would benefit from OT for education, treatment and training to promote independence in ADL's, mobility, safety and/or upper extremity function for ADL's. Plan of Care: ADL Retraining, Functional Mobility, Group Exercise/Act as Ind, UE Funct Exercise/Act Treatment Duration: Jul 29, 2020 Frequency: At least 5 of 7 days/Wk (IRF) Estimated Hrs Per Day: Other (Due to a Covid-19 viral infection, the patient has deficits that warrant inpatient Acute Rehab. The patient will clearly benefit from intensive PT and OT, however, due to patient's observed endurance and therapy considerations, she may not be able to to tolerate the full 3 hours of scheduled therapy. Therefore, she will be scheduled for as much therapy as she can tolerate with intentional rest breaks, shortened sessions, including pr oviding therapy across 6 to 7 days. As the patient tolerates, the intensity, frequency, and duration of her therapy program will be increased.) Agreement: Yes Rehab Potential: Fair Time/GCodes Start Time: 10:00 Stop Time: 11:00 Total Time Billed (hr/min): 60 Billed Treatment Time 1 visit-ADL 4 (60 min) co-treat with PT 60 min MIGNON CASTILLO Jul 12, 2020 11:17
--- NOTE | 2020-07-12 11:42 | PM&R Progress Note ---
Subjective HPI/CC On Admission Date Seen by Provider: Jul 12, 2020 Time Seen by Provider: 11:45 Subjective/Events-last exam 07/12/20: Patient doing well Confusion limits recovery BM after suppository Increased appetite 07/11/20: Lactulose, SSE until BM will be given Suppository daily if needed More confused today Working with therapy Incontinence 07/10/20: Pt will go to assisted living at [facility] Decreased walking with walker due to confusion Dry cough still, also taking Tesselon Pearles Last had a BM on July 08 so given laxatives Will recheck her progress tomorrow Maintained on room air Confusion requires co-treating with therapies 07/09/20: Pt has some labile BP Has some sun-downers from dementia, she thought she was in [facility] last night Incontinent of bowel and bladder Tessalon Perles given for cough from Covid and Influenza B Denies any other significant issues Review of Systems Pulmonary: Dyspnea Neurological: Confusion Objective Exam Vital Signs Vital Signs Date Time Temp Pulse Resp B/P (MAP) Pulse Ox O2 Delivery O2 Flow Rate FiO2 07/13/20 05:30 36.5 73 18 115/72 (86) 91 Room Air Capillary Refill : Less Than 3 Seconds General Appearance: No Apparent Distress, WD/WN, Chronically ill HEENT: PERRL/EOMI, Normal ENT Inspection, Pharynx Normal Neck: Full Range of Motion, Normal Inspection, Non Tender, Supple, Carotid Bruit Respiratory: Chest Non Tender, Lungs Clear, No Accessory Muscle Use, No Respiratory Distress, Decreased Breath Sounds Cardiovascular: Regular Rate, Rhythm, No Edema, No Gallop, No JVD, No Murmur, Normal Peripheral Pulses Gastrointestinal: Normal Bowel Sounds, No Organomegaly, No Pulsatile Mass, Non Tender, Soft Back: Normal Inspection, No CVA Tenderness, No Vertebral Tenderness Extremity: Normal Capillary Refill, Normal Inspection, Normal Range of Motion, Non Tender, No Calf Tenderness, No Pedal Edema Neurologic/Psychiatric: Alert, Oriented x3, No Motor/Sensory Deficits, Normal Mood/Affect, Motor Weakness (3/5 strength lower extremities and 4/5 strength upper extremities) Skin: Normal Color, Warm/Dry Lymphatic: No Adenopathy Results/Procedures Lab Patient resulted labs reviewed. FIM Transfers Therapy Code Descriptions/Definitions Functional [place] Measure: 0=Not Assessed/NA 4=Minimal Assistance 1=Total Assistance 5=Supervision or Setup 2=Maximal Assistance 6=Modified [place] 3=Moderate Assistance 7=Complete IndependenceSCALE: Activities may be completed with or without assistive devices. 9-Gmufdoafkx-bjzstay completes the activity by him/herself with no assistance from a helper. 5-Set-up or Clean-up Assistance-helper sets up or cleans up; patient completes activity. [place] assists only prior to or following the activity. 4-Supervision or Touching Assistance-helper provides verbal cues and/or touching/steadying and/or contact guard assistance as patient completes activity. Assistance may be provided throughout the activity or intermittently. 3-Partial/Moderate Assistance-helper does LESS THAN HALF the effort. [place] lifts, holds or supports trunk or limbs, but provides less than half the effort. 2-Substantial/Maximal Assistance-helper does MORE THAN HALF the effort. [place] lifts or holds trunk or limbs and provides more than half the effort. 2-Qhgjbrozr-svrpfq does ALL the effort. Patient does none of the effort to complete the activity. Or, the assistance of 2 or more helpers is required for the patient to complete the activity. If activity was not attempted, code reason: 7-Patient Refused. 9-Not Applicable-not attempted and the patient did not perform the activity before the current illness, exacerbation or injury. 10-Not Attempted due to Environmental Limitations-(lack of equipment, weather restraints, etc.). 88-Not Attempted due to Medical Conditions or Safety Concerns. Roll Left to Right (QC): 4 Sit to Lying (QC): 4 Sit to Stand (QC): 3 Chair/Pxg-zo-Iyhvs Xfer(QC): 4 Car Transfer (QC): 3 Gait Training Does the Patient Walk?: Yes Distance: 15' Walk 10 feet (QC): 4 Walk 50 ft with 2 Turns(QC): 4 Walk 150 ft (QC): 88 Walking 10ft/uneven surface-QC: 88 Gait Persons Needed: 1 (and w/c follow up) Gait Assistive Device: FWW Wheelchair Training Does the Pt Use a Wheelchair?: Yes Wheel 50 ft with 2 turns (QC): 3 Wheel 150 ft (QC): 1 Type of Wheelchair: Manual Stair Training 1 Step (curb) (QC): 88 4 Steps (QC): 88 12 Steps (QC): 88 Balance Picking up an Object (QC): 88 ADL-Treatment Eating (QC): 6 Oral Hygiene (QC): 4 Bathing Location: L Arm, R Arm, Chest, Abdomen Shower/Bathe Self (QC): 1 Upper Body Dressing (QC): 2 Lower Body Dressing (QC): 2 On/Off Footwear (QC): 2 Toileting Hygiene (QC): 2 Toilet Transfer (QC): 2 Assessment/Plan Assessment and Plan Assess & Plan/Chief Complaint Assessment: 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 PNA s/p Influenza B h/o TBI Seizures Dementia CAD HTN HLP Anemia Plan: Monitor seizures Home meds O2 IRF protocol 07/09/20: Monitor BP O2 management Monitor sundowning 07/10/20: Monitor O2 sat Cognition focus with therapy Increase ambulation 07/11/20: BM regimen Monitor confusion 07/12/20/: Monitor confusion BM regimen Monitor O2 (1) Myopathy (2) Pneumonia due to COVID-19 virus Status: Acute (3) Acute kidney injury superimposed on chronic kidney disease Status: Acute (4) Seizure disorder Status: Chronic (5) Influenza B Status: Acute (6) Altered mental status Status: Acute (7) Hypotension Status: Acute (8) Hypoglycemia Status: Acute (9) History of traumatic brain injury Status: Chronic DADA SANDOVAL DO Jul 12, 2020 11:42
--- NOTE | 2020-07-12 12:13 | Physical Therapy Daily Note ---
PT Daily Note-Current Subjective Pt sleeping in bed, difficult to wake. Pt c/o pain throughout session, throughout body, reported to nrsg. Pt only oriented to name. Pt kept closing eyes and shaking head throughout session. Warm, red around B lower legs, reported to nrsg. Pt stated that there was no tenderness. Pain Comment: Pt reports generalized pain but doesn't rate it. Mental Status Patient Orientation: Person, Confused Transfers SCALE: Activities may be completed with or without assistive devices. 4-Ucakpjexre-yqzlkoy completes the activity by him/herself with no assistance from a helper. 5-Set-up or Clean-up Assistance-helper sets up or cleans up; patient completes activity. [place] assists only prior to or following the activity. 4-Supervision or Touching Assistance-helper provides verbal cues and/or touching/steadying and/or contact guard assistance as patient completes activity. Assistance may be provided throughout the activity or intermittently. 3-Partial/Moderate Assistance-helper does LESS THAN HALF the effort. [place] lifts, holds or supports trunk or limbs, but provides less than half the effort. 2-Substantial/Maximal Assistance-helper does MORE THAN HALF the effort. [place] lifts or holds trunk or limbs and provides more than half the effort. 4-Pgwvlxxyw-eyholu does ALL the effort. Patient does none of the effort to complete the activity. Or, the assistance of 2 or more helpers is required for the patient to complete the activity. If activity was not attempted, code reason: 7-Patient Refused. 9-Not Applicable-not attempted and the patient did not perform the activity before the current illness, exacerbation or injury. 10-Not Attempted due to Environmental Limitations-(lack of equipment, weather restraints, etc.). 88-Not Attempted due to Medical Conditions or Safety Concerns. Sit to Lying (QC): 3 Lying to Sitting/Side of Bed(Q: 4 Sit to Stand (QC): 3 Chair/Deo-vr-Dkcws Xfer(QC): 4 Toilet Transfer (QC): 3 Weight Bearing Full Weight Bearing Full Weight Bearing Gait Training Does the Patient Walk?: Yes Distance: 15' x2 Walk 10 feet (QC): 4 Gait Persons Needed: 1 Gait Assistive Device: FWW Pt needs VC for sequencing and at times even TC to advance leg w/in FWW. Treatments Co-treat with PT ([id number]), skills of 2 clinicians required for skilled care and treatment due to decreased activity tolerance, debility and increased SOA. PT focusing on mobility and transfers while OT focusing on B UE placement with mobility and ADLs. Pt is inconsistent with transfers, mobility and ADLs. At times pt is able to complete mobility with CGA then will need increased assistance and always needs verbal cues cues for hand placement and manipulate FWW. Pt requires verbal cues for hand placement to hike pants over hips though at times will be unable to sequence and manipulate clothing at all and will need assistance to balance and hike pants over hips. Pt stated that she did not have to have BM though BM smear in brief. When attempting to stand pt, pt stated she was having a bowel movement. Pt requires verbal cues to initiate any ADLs even then pt will only hold items to cleanse self and not complete will require assistance to complete. Pt had shower today though only held wash cloth to chest and washed under one arm, assist to complete all other areas. Pt did not initiate any ADL or mobility task requested of her. After session, pt lying in bed with call light/phone in reach. All needs met in room. Safety measures in place. Assessment Current Status: Poor Progress Pt has poor motivation to attempt anything independently. Pt continues to state, "No you do it". PT Short Term Goals Short Term Goals Time Frame: Jul 15, 2020 Roll Left & Right: 6 Sit to lyin Lying to sitting on side of be: 4 Sit to stand: 4 Chair/uao-ew-pjltm transfer: 4 Walk 10 feet: 4 Walk 50 feet with two turns: 4 PT Custodial Goals Custodial Goals PT Big Data Solutions Architect Goals Time Frame: Jul 29, 2020 Roll Left & Right (QC): 6 Sit to Lying (QC): 6 Lying-Sitting on Side/Bed(QC): 6 Sit to Stand (QC): 5 Chair/Mdu-gy-Sarkx Xfer(QC): 5 Toilet Transfer (QC): 5 Car Transfer (QC): 5 Does the Patient Walk: Yes Walk 10 feet (QC): 5 Walk 50ft with 2 Turns (QC): 5 Walk 150 ft (QC): 88 Walking 10ft on Uneven Surface: 4 1 Step (curb) (QC): 88 4 Steps (QC): 88 12 Steps (QC): 88 Picking up an Object (QC): 88 Wheel 50 feet with 2 turns (QC: 4 Wheel 150 feet: 4 PT Plan Problem List Problem List: Activity Tolerance, Functional Strength, Safety, Balance, Gait, Transfer, Bed Mobility Treatment/Plan Treatment Plan: Continue Plan of Care Treatment Plan: Bed Mobility, Education, Functional Activity Tang, Functional Strength, Group Therapy, Gait, Safety, Therapeutic Exercise, Transfers Treatment Duration: Jul 15, 2020 Frequency: Modified Program (IRF) Estimated Hrs Per Day: 1 hour per day Patient and/or Family Agrees t: Yes Safety Risks/Education Patient Education: Gait Training, Transfer Techniques, Correct Positioning, Safety Issues Teaching Recipient: Patient Teaching Methods: Discussion Response to Teaching: Reinforcement Needed Time/GCodes Time In: 1000 Time Out: 1100 Total Billed Treatment Time: 60 Total Billed Treatment 1, FA x4 (60m) Co-treat w/OT for 60m ADELINE GREER PTA Jul 12, 2020 12:13
[2020-07-12 14:03] VITALS: BP 109/53
--- NOTE | 2020-07-12 14:04 | Speech Therapy Daily Note ---
Speech Daily Progress Note Subjective Date Seen by Provider: Jul 12, 2020 Time Seen by Provider: 00:30 Patient was finishing up her lunch when I walked in. She had her left arm under her and was unable to move. I had the PT come in and reposition her. Objective Patient answered basic questions related to her daily routine with 70% given mod cues. Patient required frequent redirection to stay on task. Assessment Assessment Current Status: Fair Progress Treatment Plan Continue Plan of Care Speech Short Term Goals Short Term Goals Short Term Goals 1) The patient will complete memory tasks related to her daily needs at 90% or greater with minimal cues. 2) The patient will complete problem solving tasks related to her daily needs at 90% or greater with minimal cues. 3) The patient will complete safety awareness tasks related to her daily needs at 90% or greater with minimal cues. Speech Laundry Machine Mechanic Goals Laundry Machine Mechanic Goals Patient will improve cognitive-communication necessary for safety and daily living tasks with minimal assist. Speech-Plan Patient/Family Goals Patient/Family Goals: Patient plans on returning to her [place] apartment upon discharge. Treatment Plan Speech Therapy Treatment Plan: Continue Plan of Care Treatment Duration: Jul 10, 2020 Frequency: 4 times per week (Patient will receive skilled ST 4-5x per week) Estimated Hrs Per Day: .5 hour per day Rehab Potential: Fair Barriers to Learning: Patient's cognitive deficits, recent serious illness Pt/Family Agrees to Plan: Yes Safety Risks/Education Teaching Recipient: Patient Teaching Methods: Demonstration, Discussion Response to Teaching: Verbalize Understanding, Return Demonstration, Reinforcement Needed Education Topics Provided: Continued safety within her room Time Speech Therapy Time In: 13:05 Speech Therapy Time Out: 13:35 Total Billed Time: 30 Billed Treatment Time [address] Jul 12, 2020 14:04
[2020-07-12] MEDS ORDERED: RT-ALBUTEROL INHALER HFA (VENTOLIN HFA) 18 GM IH PRN (15:00)
--- NOTE | 2020-07-12 16:43 | NUR ---
Notified Dr Montiel of red fungal rash to evan-area.
[2020-07-12 18:00] VITALS: BP 139/74
[2020-07-12] MEDS: MICONAZOLE 2% POWDER (DESENEX AF) 90 GM TOP SCH (20:09)
[2020-07-12] MEDS: ENOXAPARIN 40 MG/0.4 ML (LOVENOX) SYR SC SCH (20:09)
[2020-07-12] MEDS: NYSTATIN CREAM (MYCOSTATIN) 30 GM TUBE TP SCH (20:09)
[2020-07-12] MEDS: MELATONIN 3 MG TABLET PO PRN (20:10)
[2020-07-13 05:30] VITALS: BP 115/72
[2020-07-13] MEDS: PANTOPRAZOLE 40 MG (PROTONIX) TAB PO SCH (06:11)
--- NOTE | 2020-07-13 06:32 | PM&R Progress Note ---
Subjective HPI/CC On Admission Date Seen by Provider: Jul 13, 2020 Time Seen by Provider: 12:30 Subjective/Events-last exam 07/13/20: DId not sleep well last night and not for many nights Starting Remeron 15mg at night to help No pain reported 07/12/20: Patient doing well Confusion limits recovery BM after suppository Increased appetite 07/11/20: Lactulose, SSE until BM will be given Suppository daily if needed More confused today Working with therapy Incontinence 07/10/20: Pt will go to assisted living at [facility] Decreased walking with walker due to confusion Dry cough still, also taking Tesselon Pearles Last had a BM on July 08 so given laxatives Will recheck her progress tomorrow Maintained on room air Confusion requires co-treating with therapies 07/09/20: Pt has some labile BP Has some sun-downers from dementia, she thought she was in [facility] last night Incontinent of bowel and bladder Tessalon Perles given for cough from Covid and Influenza B Denies any other significant issues Review of Systems Pulmonary: Dyspnea, Cough Neurological: Weakness, Confusion Objective Exam Vital Signs Vital Signs Date Time Temp Pulse Resp B/P (MAP) Pulse Ox O2 Delivery O2 Flow Rate FiO2 07/14/20 07:35 92 Room Air 07/14/20 05:58 36.6 61 18 132/60 (84) Capillary Refill : Less Than 3 Seconds General Appearance: No Apparent Distress, WD/WN, Chronically ill HEENT: PERRL/EOMI, Normal ENT Inspection, Pharynx Normal Neck: Full Range of Motion, Normal Inspection, Non Tender, Supple, Carotid Bruit Respiratory: Chest Non Tender, Lungs Clear, No Accessory Muscle Use, No Respiratory Distress, Decreased Breath Sounds Cardiovascular: Regular Rate, Rhythm, No Edema, No Gallop, No JVD, No Murmur, Normal Peripheral Pulses Gastrointestinal: Normal Bowel Sounds, No Organomegaly, No Pulsatile Mass, Non Tender, Soft Back: Normal Inspection, No CVA Tenderness, No Vertebral Tenderness Extremity: Normal Capillary Refill, Normal Inspection, Normal Range of Motion, Non Tender, No Calf Tenderness, No Pedal Edema Neurologic/Psychiatric: Alert, Oriented x3, No Motor/Sensory Deficits, Normal Mood/Affect, Motor Weakness (3/5 strength lower extremities and 4/5 strength upper extremities) Skin: Normal Color, Warm/Dry Lymphatic: No Adenopathy Results/Procedures Lab Patient resulted labs reviewed. FIM Transfers Therapy Code Descriptions/Definitions Functional [place] Measure: 0=Not Assessed/NA 4=Minimal Assistance 1=Total Assistance 5=Supervision or Setup 2=Maximal Assistance 6=Modified [place] 3=Moderate Assistance 7=Complete IndependenceSCALE: Activities may be completed with or without assistive devices. 7-Kjryvpqkpv-tphjwsl completes the activity by him/herself with no assistance from a helper. 5-Set-up or Clean-up Assistance-helper sets up or cleans up; patient completes activity. [place] assists only prior to or following the activity. 4-Supervision or Touching Assistance-helper provides verbal cues and/or touching/steadying and/or contact guard assistance as patient completes activity. Assistance may be provided throughout the activity or intermittently. 3-Partial/Moderate Assistance-helper does LESS THAN HALF the effort. [place] lifts, holds or supports trunk or limbs, but provides less than half the effort. 2-Substantial/Maximal Assistance-helper does MORE THAN HALF the effort. [place] lifts or holds trunk or limbs and provides more than half the effort. 9-Ptdtyufyq-vaapgj does ALL the effort. Patient does none of the effort to complete the activity. Or, the assistance of 2 or more helpers is required for the patient to complete the activity. If activity was not attempted, code reason: 7-Patient Refused. 9-Not Applicable-not attempted and the patient did not perform the activity before the current illness, exacerbation or injury. 10-Not Attempted due to Environmental Limitations-(lack of equipment, weather restraints, etc.). 88-Not Attempted due to Medical Conditions or Safety Concerns. Roll Left to Right (QC): 4 Sit to Lying (QC): 3 Sit to Stand (QC): 3 Chair/Oyo-ii-Dunmq Xfer(QC): 4 Car Transfer (QC): 3 Gait Training Does the Patient Walk?: Yes Distance: 15' x2 Walk 10 feet (QC): 4 Walk 50 ft with 2 Turns(QC): 4 Walk 150 ft (QC): 88 Walking 10ft/uneven surface-QC: 88 Gait Persons Needed: 1 Gait Assistive Device: FWW Wheelchair Training Does the Pt Use a Wheelchair?: Yes Wheel 50 ft with 2 turns (QC): 3 Wheel 150 ft (QC): 1 Type of Wheelchair: Manual Stair Training 1 Step (curb) (QC): 88 4 Steps (QC): 88 12 Steps (QC): 88 Balance Picking up an Object (QC): 88 ADL-Treatment Eating (QC): 6 Oral Hygiene (QC): 4 Bathing Location: L Arm, R Arm, Chest, Abdomen Shower/Bathe Self (QC): 1 Upper Body Dressing (QC): 2 Lower Body Dressing (QC): 2 On/Off Footwear (QC): 2 Toileting Hygiene (QC): 2 Toilet Transfer (QC): 2 Assessment/Plan Assessment and Plan Assess & Plan/Chief Complaint Assessment: 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 PNA s/p Influenza B h/o TBI Seizures Dementia CAD HTN HLP Anemia Plan: Monitor seizures Home meds O2 IRF protocol 07/09/20: Monitor BP O2 management Monitor sundowning 07/10/20: Monitor O2 sat Cognition focus with therapy Increase ambulation 07/11/20: BM regimen Monitor confusion 07/12/20/: Monitor confusion BM regimen Monitor O2 07/13/20: Monitor confusion 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
--- NOTE | 2020-07-13 08:43 | Physical Therapy Daily Note ---
PT Daily Note-Current Subjective Pt. in bed, agrees to standing and TRF bed to recliner and some gait. Pain Location: No Pain Reported Transfers SCALE: Activities may be completed with or without assistive devices. 4-Etpqmfrbnu-imlhrxm completes the activity by him/herself with no assistance from a helper. 5-Set-up or Clean-up Assistance-helper sets up or cleans up; patient completes activity. [place] assists only prior to or following the activity. 4-Supervision or Touching Assistance-helper provides verbal cues and/or touching/steadying and/or contact guard assistance as patient completes activity. Assistance may be provided throughout the activity or intermittently. 3-Partial/Moderate Assistance-helper does LESS THAN HALF the effort. [place] lifts, holds or supports trunk or limbs, but provides less than half the effort. 2-Substantial/Maximal Assistance-helper does MORE THAN HALF the effort. [place] lifts or holds trunk or limbs and provides more than half the effort. 9-Anenwidor-mwbugo does ALL the effort. Patient does none of the effort to complete the activity. Or, the assistance of 2 or more helpers is required for the patient to complete the activity. If activity was not attempted, code reason: 7-Patient Refused. 9-Not Applicable-not attempted and the patient did not perform the activity before the current illness, exacerbation or injury. 10-Not Attempted due to Environmental Limitations-(lack of equipment, weather restraints, etc.). 88-Not Attempted due to Medical Conditions or Safety Concerns. sup to sit min assist, sit to stand mod assist x 4 trials with balance in static min assist Weight Bearing Full Weight Bearing Full Weight Bearing Gait Training Gait Assistive Device: Handheld Assist 4-5 steps x 2 with mod assist bed to chair Exercises Seated Therapy Exercises: Sit to stand, Long arc quads Seated Reps: 8 Assessment Current Status: Good Progress PT Short Term Goals Short Term Goals Time Frame: Jul 15, 2020 Roll Left & Right: 6 Sit to lyin Lying to sitting on side of be: 4 Sit to stand: 4 Chair/djj-jj-wuiup transfer: 4 Walk 10 feet: 4 Walk 50 feet with two turns: 4 PT Shingle Shearing Machine Operator Goals Shingle Shearing Machine Operator Goals PT Senior Living Goals Time Frame: Jul 29, 2020 Roll Left & Right (QC): 6 Sit to Lying (QC): 6 Lying-Sitting on Side/Bed(QC): 6 Sit to Stand (QC): 5 Chair/Lek-fz-Zpzdb Xfer(QC): 5 Toilet Transfer (QC): 5 Car Transfer (QC): 5 Does the Patient Walk: Yes Walk 10 feet (QC): 5 Walk 50ft with 2 Turns (QC): 5 Walk 150 ft (QC): 88 Walking 10ft on Uneven Surface: 4 1 Step (curb) (QC): 88 4 Steps (QC): 88 12 Steps (QC): 88 Picking up an Object (QC): 88 Wheel 50 feet with 2 turns (QC: 4 Wheel 150 feet: 4 PT Plan Treatment/Plan Treatment Plan: Continue Plan of Care Treatment Plan: Bed Mobility, Education, Functional Activity Tang, Functional Strength, Group Therapy, Gait, Safety, Therapeutic Exercise, Transfers Treatment Duration: Jul 15, 2020 Frequency: Modified Program (IRF) Estimated Hrs Per Day: 1 hour per day Patient and/or Family Agrees t: Yes Time/GCodes Time In: 755 Time Out: 815 Total Billed Treatment Time: 20 Total Billed Treatment 1,FA20m ERIBERTO ROBERTSON LINE PREP COOK Jul 13, 2020 08:43
[2020-07-13] MEDS: PRAMIPEXOLE 0.5 MG TAB (MIRAPEX) PO SCH ×3 (10:25→20:08)
[2020-07-13] MEDS: RT-ALBUTEROL INHALER HFA (VENTOLIN HFA) 18 GM IH SCH ×2 (10:25→23:38)
[2020-07-13] MEDS: OXYBUTYNIN (DITROPAN) 5 MG TAB PO SCH ×3 (10:26→20:08)
[2020-07-13] MEDS: toPIRamate 25 MG (TOPAMAX) TAB PO SCH ×2 (10:26→20:08)
[2020-07-13] MEDS: LEVETIRACETAM 1,000 MG (KEPPRA) TABLET PO SCH ×2 (10:26→20:08)
[2020-07-13] MEDS: DULoxetine 30 MG (CYMBALTA) CAP PO SCH (10:26)
[2020-07-13] MEDS: ASPIRIN E.C. 81 MG (ECOTRIN) TAB PO SCH (10:26)
[2020-07-13] MEDS: DIVALPROEX EXT RELEASE 500 MG (DEPAKOTE ER) TAB PO SCH ×2 (10:28→20:07)
[2020-07-13] MEDS: prednisoLONE 1% OPTH (PRED FORTE) 5 ML BTL OU SCH (10:28)
[2020-07-13] MEDS: MICONAZOLE 2% POWDER (DESENEX AF) 90 GM TOP SCH ×2 (10:36→20:09)
[2020-07-13] MEDS: NYSTATIN CREAM (MYCOSTATIN) 30 GM TUBE TP SCH ×2 (10:36→20:09)
[2020-07-13] MEDS: SENNA W/DOCUSATE (SENOKOT S) TABLET PO SCH ×2 (11:05→19:19)
[2020-07-13] MEDS: DOCUSATE SODIUM 100 MG (COLACE) CAP PO SCH ×2 (11:05→20:07)
[2020-07-13] MEDS: polyethylene glycoL POWDER 17 GM (MIRALAX) PACK PO SCH ×2 (11:05→19:19)
--- NOTE | 2020-07-13 15:02 | NUR ---
POOR APPETITE AND POOR OUTPUT, FLUIDS ENCOURAGED, REQUIRES CUES WHILE EATING. PREFERS BERRY POPSICLES ONLY.
[2020-07-13 17:15] VITALS: BP 118/62
--- NOTE | 2020-07-13 18:30 | NUR ---
UP TO COMMODE X2, UNABLE TO VOID. BLADDER SCAN SHOWS 486CC. DR SANDOVAL NOTIFIED, ORDERS RECEIVED. STRAIGHT CATH [id number], DARK EDGARDO URINE
[2020-07-13] MEDS: MELATONIN 3 MG TABLET PO PRN (20:07)
[2020-07-13] MEDS: MIRTAZAPINE 15 MG (REMERON) TAB PO SCH (20:08)
[2020-07-13] MEDS: ENOXAPARIN 40 MG/0.4 ML (LOVENOX) SYR SC SCH (20:09)
[2020-07-14] MEDS: PANTOPRAZOLE 40 MG (PROTONIX) TAB PO SCH (05:50)
[2020-07-14 05:58] VITALS: BP 132/60
[2020-07-14] MEDS: RT-ALBUTEROL INHALER HFA (VENTOLIN HFA) 18 GM IH SCH ×2 (07:33→20:10)
[2020-07-14] MEDS: PRAMIPEXOLE 0.5 MG TAB (MIRAPEX) PO SCH ×3 (09:20→20:11)
[2020-07-14] MEDS: DIVALPROEX EXT RELEASE 500 MG (DEPAKOTE ER) TAB PO SCH ×2 (09:20→20:10)
[2020-07-14] MEDS: DULoxetine 30 MG (CYMBALTA) CAP PO SCH (09:20)
[2020-07-14] MEDS: LEVETIRACETAM 1,000 MG (KEPPRA) TABLET PO SCH ×2 (09:20→20:11)
[2020-07-14] MEDS: DOCUSATE SODIUM 100 MG (COLACE) CAP PO SCH ×2 (09:21→20:11)
[2020-07-14] MEDS: OXYBUTYNIN (DITROPAN) 5 MG TAB PO SCH ×3 (09:21→20:11)
[2020-07-14] MEDS: SENNA W/DOCUSATE (SENOKOT S) TABLET PO SCH ×2 (09:21→20:11)
[2020-07-14] MEDS: ASPIRIN E.C. 81 MG (ECOTRIN) TAB PO SCH (09:21)
[2020-07-14] MEDS: toPIRamate 25 MG (TOPAMAX) TAB PO SCH ×2 (09:21→20:11)
[2020-07-14] MEDS: MICONAZOLE 2% POWDER (DESENEX AF) 90 GM TOP SCH ×2 (09:21→20:11)
[2020-07-14] MEDS: polyethylene glycoL POWDER 17 GM (MIRALAX) PACK PO SCH ×2 (09:22→20:11)
[2020-07-14] MEDS: NYSTATIN CREAM (MYCOSTATIN) 30 GM TUBE TP SCH ×2 (09:22→20:11)
--- NOTE | 2020-07-14 13:04 | PM&R Progress Note ---
Subjective HPI/CC On Admission Date Seen by Provider: Jul 14, 2020 Time Seen by Provider: 13:00 Subjective/Events-last exam 07/14/20: Slept well last night since had the Remeron 15mg PO Up in chair now and is sleepy No major issues Checking labs in am 07/13/20: DId not sleep well last night and not for many nights Starting Remeron 15mg at night to help No pain reported 07/12/20: Patient doing well Confusion limits recovery BM after suppository Increased appetite 07/11/20: Lactulose, SSE until BM will be given Suppository daily if needed More confused today Working with therapy Incontinence 07/10/20: Pt will go to assisted living at [place] [facility] Decreased walking with walker due to confusion Dry cough still, also taking Tesselon Pearles Last had a BM on July 08 so given laxatives Will recheck her progress tomorrow Maintained on room air Confusion requires co-treating with therapies 07/09/20: Pt has some labile BP Has some sun-downers from dementia, she thought she was in [facility] last night Incontinent of bowel and bladder Tessalon Perles given for cough from Covid and Influenza B Denies any other significant issues Review of Systems General: Fatigue, Malaise Pulmonary: Dyspnea, Cough Neurological: Confusion Objective Exam Vital Signs Vital Signs Date Time Temp Pulse Resp B/P (MAP) Pulse Ox O2 Delivery O2 Flow Rate FiO2 07/14/20 17:24 36.6 70 20 109/61 (77) 96 Room Air Capillary Refill : Less Than 3 Seconds General Appearance: No Apparent Distress, WD/WN, Chronically ill HEENT: PERRL/EOMI, Normal ENT Inspection, Pharynx Normal Neck: Full Range of Motion, Normal Inspection, Non Tender, Supple, Carotid Bruit Respiratory: Chest Non Tender, Lungs Clear, No Accessory Muscle Use, No Respiratory Distress, Decreased Breath Sounds Cardiovascular: Regular Rate, Rhythm, No Edema, No Gallop, No JVD, No Murmur, Normal Peripheral Pulses Gastrointestinal: Normal Bowel Sounds, No Organomegaly, No Pulsatile Mass, Non Tender, Soft Back: Normal Inspection, No CVA Tenderness, No Vertebral Tenderness Extremity: Normal Capillary Refill, Normal Inspection, Normal Range of Motion, Non Tender, No Calf Tenderness, No Pedal Edema Neurologic/Psychiatric: Alert, Oriented x3, No Motor/Sensory Deficits, Normal Mood/Affect, Motor Weakness (3/5 strength lower extremities and 4/5 strength upper extremities) Skin: Normal Color, Warm/Dry Lymphatic: No Adenopathy Results/Procedures Lab Patient resulted labs reviewed. FIM Transfers Therapy Code Descriptions/Definitions Functional [place] Measure: 0=Not Assessed/NA 4=Minimal Assistance 1=Total Assistance 5=Supervision or Setup 2=Maximal Assistance 6=Modified [place] 3=Moderate Assistance 7=Complete IndependenceSCALE: Activities may be completed with or without assistive devices. 4-Iblfqtuzje-hozekup completes the activity by him/herself with no assistance from a helper. 5-Set-up or Clean-up Assistance-helper sets up or cleans up; patient completes activity. [place] assists only prior to or following the activity. 4-Supervision or Touching Assistance-helper provides verbal cues and/or touching/steadying and/or contact guard assistance as patient completes activity. Assistance may be provided throughout the activity or intermittently. 3-Partial/Moderate Assistance-helper does LESS THAN HALF the effort. [place] lifts, holds or supports trunk or limbs, but provides less than half the effort. 2-Substantial/Maximal Assistance-helper does MORE THAN HALF the effort. [place] lifts or holds trunk or limbs and provides more than half the effort. 8-Uzwwgtksk-uqsafn does ALL the effort. Patient does none of the effort to complete the activity. Or, the assistance of 2 or more helpers is required for the patient to complete the activity. If activity was not attempted, code reason: 7-Patient Refused. 9-Not Applicable-not attempted and the patient did not perform the activity before the current illness, exacerbation or injury. 10-Not Attempted due to Environmental Limitations-(lack of equipment, weather restraints, etc.). 88-Not Attempted due to Medical Conditions or Safety Concerns. Roll Left to Right (QC): 4 Sit to Lying (QC): 3 Sit to Stand (QC): 3 Chair/Gxd-ph-Bkyas Xfer(QC): 4 Car Transfer (QC): 3 Gait Training Does the Patient Walk?: Yes Distance: 15' x2 Walk 10 feet (QC): 4 Walk 50 ft with 2 Turns(QC): 4 Walk 150 ft (QC): 88 Walking 10ft/uneven surface-QC: 88 Gait Persons Needed: 1 Gait Assistive Device: Handheld Assist Wheelchair Training Does the Pt Use a Wheelchair?: Yes Wheel 50 ft with 2 turns (QC): 3 Wheel 150 ft (QC): 1 Type of Wheelchair: Manual Stair Training 1 Step (curb) (QC): 88 4 Steps (QC): 88 12 Steps (QC): 88 Balance Picking up an Object (QC): 88 ADL-Treatment Eating (QC): 6 Oral Hygiene (QC): 4 Bathing Location: L Arm, R Arm, Chest, Abdomen Shower/Bathe Self (QC): 1 Upper Body Dressing (QC): 2 Lower Body Dressing (QC): 2 On/Off Footwear (QC): 2 Toileting Hygiene (QC): 2 Toilet Transfer (QC): 2 Assessment/Plan Assessment and Plan Assess & Plan/Chief Complaint Assessment: 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 PNA s/p Influenza B h/o TBI Seizures Dementia CAD HTN HLP Anemia Plan: Monitor seizures Home meds O2 IRF protocol 07/09/20: Monitor BP O2 management Monitor sundowning 07/10/20: Monitor O2 sat Cognition focus with therapy Increase ambulation 07/11/20: BM regimen Monitor confusion 07/12/20/: Monitor confusion BM regimen Monitor O2 07/13/20: Monitor confusion 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
--- NOTE | 2020-07-14 15:15 | NUR ---
Lily is a 70 yo female who is currently present on ARU due to critical illness myopathy (post COVID, pneumonia, and influenza A). Patient is currently A&O X1. She is unable to recall being in the hospital, reasoning, or date. She is currently requiring 1-2 people for mod/max transfers. Patient is very hard to direct during transfers and has trouble following direction. Her appetite appears to be fair, she did eat about 50% of her breakfast and lunch. She does require frequent cueing for this task. It was reported patient had issues with retention yesterday. She has currently voided 3 times for day shift, no bladder scan obtained yet but will be completed prior to end of shift. This nurse will continue to monitor patient closely. Bed/chair alarm are present at all times. No further issues noted. Addendum: 07/14/20 at 1756 by JOSE GUAJARDO RN 173- Patient currently only has two voided outputs since 0700. Multiple attempts to commode but no output noted. Last taken to commode at 1739. Bladder scan completed and patient had 244 in bladder. No straight cath needed at this time.
[2020-07-14 17:24] VITALS: BP 109/61
[2020-07-14] MEDS: ENOXAPARIN 40 MG/0.4 ML (LOVENOX) SYR SC SCH (20:11)
[2020-07-14] MEDS: MIRTAZAPINE 15 MG (REMERON) TAB PO SCH (20:11)
[2020-07-15] MEDS: ALPRAZolam 0.25 MG (XANAX) TAB PO PRN (01:13)
[2020-07-15 05:00] VITALS: BP 116/53
[2020-07-15] MEDS: PANTOPRAZOLE 40 MG (PROTONIX) TAB PO SCH ×2 (05:03→10:03)
[2020-07-15 05:21] LABS: BASOPHILS # (AUTO) 0.1 10^3/uL (0.0-0.1); BASOPHILS % (AUTO) 1 % (0-10); EOSINOPHILS # (AUTO) 0.1 10^3/uL (0.0-0.3); EOSINOPHILS % (AUTO) 1 % (0-10); HEMATOCRIT 41 % (35-52); HEMOGLOBIN 12.5 g/dL (11.5-16.0); LYMPHOCYTES # (AUTO) 1.7 10^3/uL (1.0-4.0); LYMPHOCYTES % (AUTO) 23 % (12-44); MEAN CORPUSCULAR HEMOGLOBIN 31 pg (25-34); MEAN CORPUSCULAR HGB CONC 31 g/dL (32-36); MEAN CORPUSCULAR VOLUME 101 fL (80-99); MEAN PLATELET VOLUME 11.9 fL (9.0-12.2); MONOCYTES # (AUTO) 1.8 10^3/uL (0.0-1.0); MONOCYTES % (AUTO) 25 % (0-12); NEUTROPHILS # (AUTO) 2.4 10^3/uL (1.8-7.8); NEUTROPHILS % (AUTO) 33 % (42-75); PLATELET COUNT 125 10^3/uL (130-400); WHITE BLOOD COUNT 7.4 10^3/uL (4.3-11.0)
[2020-07-15 05:44] LABS: CHLORIDE 111 MMOL/L (98-107); POTASSIUM 4.6 MMOL/L (3.6-5.0); SODIUM 138 MMOL/L (135-145)
[2020-07-15 05:45] LABS: CALCIUM 8.7 MG/DL (8.5-10.1)
[2020-07-15 05:46] LABS: TOTAL PROTEIN 6.2 GM/DL (6.4-8.2)
[2020-07-15 05:48] LABS: BILIRUBIN,TOTAL 0.3 MG/DL (0.1-1.0); CARBON DIOXIDE 14 MMOL/L (21-32)
--- NOTE | 2020-07-15 05:52 | PM&R Progress Note ---
Subjective HPI/CC On Admission Date Seen by Provider: Jul 15, 2020 Time Seen by Provider: 08:30 Subjective/Events-last exam 07/15/20: Pt doing pretty well Labs stable Bowels moved Sugar was 58 this morning, she just doesnt eat well Poor prognosis long-term Will initiate a nighttime snack 07/14/20: Slept well last night since had the Remeron 15mg PO Up in chair now and is sleepy No major issues Checking labs in am 07/13/20: DId not sleep well last night and not for many nights Starting Remeron 15mg at night to help No pain reported 07/12/20: Patient doing well Confusion limits recovery BM after suppository Increased appetite 07/11/20: Lactulose, SSE until BM will be given Suppository daily if needed More confused today Working with therapy Incontinence 07/10/20: Pt will go to assisted living at [facility] Decreased walking with walker due to confusion Dry cough still, also taking Tesselon Pearles Last had a BM on July 08 so given laxatives Will recheck her progress tomorrow Maintained on room air Confusion requires co-treating with therapies 07/09/20: Pt has some labile BP Has some sun-downers from dementia, she thought she was in [facility] last night Incontinent of bowel and bladder Tessalon Perles given for cough from Covid and Influenza B Denies any other significant issues Review of Systems General: Fatigue, Malaise Neurological: Weakness, Incoordination, Confusion Objective Exam Vital Signs Vital Signs Date Time Temp Pulse Resp B/P (MAP) Pulse Ox O2 Delivery O2 Flow Rate FiO2 07/15/20 18:44 94 Room Air 07/15/20 17:07 36.2 67 18 113/53 (73) Capillary Refill : Less Than 3 Seconds General Appearance: No Apparent Distress, WD/WN, Chronically ill HEENT: PERRL/EOMI, Normal ENT Inspection, Pharynx Normal Neck: Full Range of Motion, Normal Inspection, Non Tender, Supple, Carotid Bruit Respiratory: Chest Non Tender, Lungs Clear, No Accessory Muscle Use, No Respiratory Distress, Decreased Breath Sounds Cardiovascular: Regular Rate, Rhythm, No Edema, No Gallop, No JVD, No Murmur, Normal Peripheral Pulses Gastrointestinal: Normal Bowel Sounds, No Organomegaly, No Pulsatile Mass, Non Tender, Soft Back: Normal Inspection, No CVA Tenderness, No Vertebral Tenderness Extremity: Normal Capillary Refill, Normal Inspection, Normal Range of Motion, Non Tender, No Calf Tenderness, No Pedal Edema Neurologic/Psychiatric: Alert, Oriented x3, No Motor/Sensory Deficits, Normal Mood/Affect, Motor Weakness (3/5 strength lower extremities and 4/5 strength upper extremities) Skin: Normal Color, Warm/Dry Lymphatic: No Adenopathy Results/Procedures Lab Laboratory Tests 07/15/20 04:25 Patient resulted labs reviewed. FIM Transfers Therapy Code Descriptions/Definitions Functional [place] Measure: 0=Not Assessed/NA 4=Minimal Assistance 1=Total Assistance 5=Supervision or Setup 2=Maximal Assistance 6=Modified [place] 3=Moderate Assistance 7=Complete IndependenceSCALE: Activities may be completed with or without assistive devices. 3-Fbgpoqkgyo-ascjkdh completes the activity by him/herself with no assistance fr om a helper. 5-Set-up or Clean-up Assistance-helper sets up or cleans up; patient completes activity. [place] assists only prior to or following the activity. 4-Supervision or Touching Assistance-helper provides verbal cues and/or touching/steadying and/or contact guard assistance as patient completes activity. Assistance may be provided throughout the activity or intermittently. 3-Partial/Moderate Assistance-helper does LESS THAN HALF the effort. [place] lifts, holds or supports trunk or limbs, but provides less than half the effort. 2-Substantial/Maximal Assistance-helper does MORE THAN HALF the effort. [place] lifts or holds trunk or limbs and provides more than half the effort. 1-Yhbpvwugp-djwpls does ALL the effort. Patient does none of the effort to complete the activity. Or, the assistance of 2 or more helpers is required for the patient to complete the activity. If activity was not attempted, code reason: 7-Patient Refused. 9-Not Applicable-not attempted and the patient did not perform the activity before the current illness, exacerbation or injury. 10-Not Attempted due to Environmental Limitations-(lack of equipment, weather restraints, etc.). 88-Not Attempted due to Medical Conditions or Safety Concerns. Roll Left to Right (QC): 4 Sit to Lying (QC): 3 Sit to Stand (QC): 3 Chair/Zmv-tb-Uiisc Xfer(QC): 4 Car Transfer (QC): 3 Gait Training Does the Patient Walk?: Yes Distance: 15' x2 Walk 10 feet (QC): 4 Walk 50 ft with 2 Turns(QC): 4 Walk 150 ft (QC): 88 Walking 10ft/uneven surface-QC: 88 Gait Persons Needed: 1 Gait Assistive Device: Handheld Assist Wheelchair Training Does the Pt Use a Wheelchair?: Yes Wheel 50 ft with 2 turns (QC): 3 Wheel 150 ft (QC): 1 Type of Wheelchair: Manual Stair Training 1 Step (curb) (QC): 88 4 Steps (QC): 88 12 Steps (QC): 88 Balance Picking up an Object (QC): 88 ADL-Treatment Eating (QC): 6 Oral Hygiene (QC): 4 Bathing Location: L Arm, R Arm, Chest, Abdomen Shower/Bathe Self (QC): 1 Upper Body Dressing (QC): 2 Lower Body Dressing (QC): 2 On/Off Footwear (QC): 2 Toileting Hygiene (QC): 2 Toilet Transfer (QC): 2 Assessment/Plan Assessment and Plan Assess & Plan/Chief Complaint Assessment: 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 PNA s/p Influenza B h/o TBI Seizures Dementia CAD HTN HLP Anemia Plan: Monitor seizures Home meds O2 IRF protocol 07/09/20: Monitor BP O2 management Monitor sundowning 07/10/20: Monitor O2 sat Cognition focus with therapy Increase ambulation 07/11/20: BM regimen Monitor confusion 07/12/20/: Monitor confusion BM regimen Monitor O2 07/13/20: Monitor confusion 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
[2020-07-15] MEDS: RT-ALBUTEROL INHALER HFA (VENTOLIN HFA) 18 GM IH SCH ×2 (06:50→18:43)
[2020-07-15 07:03] LABS: ALKALINE PHOSPHATASE 157 U/L (40-136); GFR ESTIMATED > 60; GLUCOSE 58 MG/DL (70-105)
[2020-07-15 07:04] LABS: BUN/CREATININE RATIO 10
[2020-07-15 07:06] LABS: ALANINE AMINOTRANSFERASE 15 U/L (0-55)
[2020-07-15] MEDS: DULoxetine 30 MG (CYMBALTA) CAP PO SCH (10:03)
[2020-07-15] MEDS: DOCUSATE SODIUM 100 MG (COLACE) CAP PO SCH ×2 (10:03→20:23)
[2020-07-15] MEDS: LEVETIRACETAM 1,000 MG (KEPPRA) TABLET PO SCH ×2 (10:03→20:23)
[2020-07-15] MEDS: SENNA W/DOCUSATE (SENOKOT S) TABLET PO SCH ×2 (10:03→20:23)
[2020-07-15] MEDS: DIVALPROEX EXT RELEASE 500 MG (DEPAKOTE ER) TAB PO SCH ×2 (10:03→20:23)
[2020-07-15] MEDS: toPIRamate 25 MG (TOPAMAX) TAB PO SCH ×2 (10:03→20:23)
[2020-07-15] MEDS: ASPIRIN E.C. 81 MG (ECOTRIN) TAB PO SCH (10:03)
[2020-07-15] MEDS: PRAMIPEXOLE 0.5 MG TAB (MIRAPEX) PO SCH ×3 (10:03→20:23)
[2020-07-15] MEDS: polyethylene glycoL POWDER 17 GM (MIRALAX) PACK PO SCH ×2 (10:04→20:24)
[2020-07-15] MEDS: prednisoLONE 1% OPTH (PRED FORTE) 5 ML BTL OU SCH (10:04)
[2020-07-15] MEDS: MICONAZOLE 2% POWDER (DESENEX AF) 90 GM TOP SCH ×2 (10:05→20:24)
[2020-07-15] MEDS: OXYBUTYNIN (DITROPAN) 5 MG TAB PO SCH ×3 (10:05→20:23)
[2020-07-15] MEDS: NYSTATIN CREAM (MYCOSTATIN) 30 GM TUBE TP SCH ×2 (10:06→20:24)
[2020-07-15] MEDS: ACETAMINOPHEN 500 MG TAB (TYLENOL) PO PRN (10:16)
--- NOTE | 2020-07-15 11:00 | Physical Therapy Daily Note ---
PT Daily Note-Current Subjective Pt sitting in recliner, finishing up with ST session. Pt confused, agitated and decreased problem solving skills. Pt used profanities with OT/PT during initial ambulation attempt then nrsg brought meds then pt said the nrsg could just throw them away. Nrsg was able to administer pain meds for pt. Pt would become agitated when asked to complete tasks. Pt required encouragement and time to complete all tasks due to agitation, confusion. Pain Location: Right Location Body Site: Knee Comment: Pt reports pain in R knee but not rated. Mental Status Patient Orientation: Person, Confused Transfers SCALE: Activities may be completed with or without assistive devices. 4-Qhfjvtuajf-fytqeme completes the activity by him/herself with no assistance from a helper. 5-Set-up or Clean-up Assistance-helper sets up or cleans up; patient completes activity. [place] assists only prior to or following the activity. 4-Supervision or Touching Assistance-helper provides verbal cues and/or touching/steadying and/or contact guard assistance as patient completes activity. Assistance may be provided throughout the activity or intermittently. 3-Partial/Moderate Assistance-helper does LESS THAN HALF the effort. [place] lifts, holds or supports trunk or limbs, but provides less than half the effort. 2-Substantial/Maximal Assistance-helper does MORE THAN HALF the effort. [place] lifts or holds trunk or limbs and provides more than half the effort. 1-Hbltvfaxk-iqyfwt does ALL the effort. Patient does none of the effort to complete the activity. Or, the assistance of 2 or more helpers is required for the patient to complete the activity. If activity was not attempted, code reason: 7-Patient Refused. 9-Not Applicable-not attempted and the patient did not perform the activity before the current illness, exacerbation or injury. 10-Not Attempted due to Environmental Limitations-(lack of equipment, weather restraints, etc.). 88-Not Attempted due to Medical Conditions or Safety Concerns. Sit to Stand (QC): 3 Chair/Rsv-xe-Rdpro Xfer(QC): 3 Weight Bearing Full Weight Bearing Full Weight Bearing Gait Training Does the Patient Walk?: Yes Distance: 20' Walk 10 feet (QC): 3 Gait Persons Needed: 2 Gait Assistive Device: FWW Mod A x2 to advance BLE Wheelchair Training Does the Pt Use a Wheelchair?: Yes Type of Wheelchair: Manual VC for sequencing Treatments Co-treat with PT ([id number]), skills of 2 clinicians required for skilled care and treatment due to decreased activity tolerance, debility and increased SOA. PT focusing on mobility and transfers while OT focusing on B UE placement with mobility and ADLs. Pt is inconsistent with transfers, mobility and ADLs. At times pt is able to complete mobility with CGA then will need increased assistance and always needs verbal cues cues for hand placement and manipulate FWW. Attempted to have pt complete oral care, refused. Pt required mod A x2 for ambulating ~20 feet very slowly. Pt propelled w/c with assistance ~20 feet. Pt would just stop moving with ambulation and w/c mobility. After therapy, pt lying in bed with call light/phone in reach. All needs met in room. Assessment Current Status: Poor Progress Pt is resistive to tx today. Pt reports pain but resistive to pain med from Nurse. Pt states, "you can stick it up your a". Pt increasingly agitated when asked to complete tasks. PT Short Term Goals Short Term Goals Time Frame: Jul 15, 2020 Roll Left & Right: 6 Sit to lyin Lying to sitting on side of be: 4 Sit to stand: 4 Chair/ffx-nt-iisod transfer: 4 Walk 10 feet: 4 Walk 50 feet with two turns: 4 PT Software Quality Manager Goals Software Quality Manager Goals PT Software Quality Manager Goals Time Frame: Jul 29, 2020 Roll Left & Right (QC): 6 Sit to Lying (QC): 6 Lying-Sitting on Side/Bed(QC): 6 Sit to Stand (QC): 5 Chair/Oyr-cg-Dyyml Xfer(QC): 5 Toilet Transfer (QC): 5 Car Transfer (QC): 5 Does the Patient Walk: Yes Walk 10 feet (QC): 5 Walk 50ft with 2 Turns (QC): 5 Walk 150 ft (QC): 88 Walking 10ft on Uneven Surface: 4 1 Step (curb) (QC): 88 4 Steps (QC): 88 12 Steps (QC): 88 Picking up an Object (QC): 88 Wheel 50 feet with 2 turns (QC: 4 Wheel 150 feet: 4 PT Plan Problem List Problem List: Activity Tolerance, Functional Strength, Safety, Balance, Gait, Transfer Treatment/Plan Treatment Plan: Continue Plan of Care Treatment Plan: Bed Mobility, Education, Functional Activity Tang, Functional Strength, Group Therapy, Gait, Safety, Therapeutic Exercise, Transfers Treatment Duration: Jul 15, 2020 Frequency: Modified Program (IRF) Estimated Hrs Per Day: 1 hour per day Patient and/or Family Agrees t: Yes Safety Risks/Education Patient Education: Gait Training, Transfer Techniques, Correct Positioning, Safety Issues Teaching Recipient: Patient Teaching Methods: Discussion Response to Teaching: Reinforcement Needed Time/GCodes Time In: 1000 Time Out: 1100 Total Billed Treatment Time: 60 Total Billed Treatment 1, GT (20m), WCH (15m) & FA x2 (25m) 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
--- NOTE | 2020-07-15 11:11 | Occupational Ther Daily Note ---
OT Current Status-Daily Note Subjective Pt sitting in recliner, finishing up with ST session. Pt confused, agitated and decreased problem solving skills. Pt used profanities with OT/PT during initial ambulation attempt then nrsg brought meds then pt said the nrsg could just throw them away. Nrsg was able to administer pain meds for pt. Pt would become agitated when asked to complete tasks. Pt required encouragement and time to complete all tasks due to agitation, confusion. Mental Status/Objective Patient Orientation: Person, Confused Attachments: IV ADL-Treatment Co-treat with PT ([id number]), skills of 2 clinicians required for skilled care and treatment due to decreased activity tolerance, debility and increased SOA. PT focusing on mobility and transfers while OT focusing on B UE placement with mobility and ADLs. Pt is inconsistent with transfers, mobility and ADLs. At times pt is able to complete mobility with CGA then will need increased assistance and always needs verbal cues cues for hand placement and manipulate FWW. Attempted to have pt complete oral care, refused. Pt required mod A x2 for ambulating ~20 feet very slowly. Pt propelled w/c with assistance ~20 feet. Pt would just stop moving with ambulation and w/c mobility. After therapy, pt lying in bed with call light/phone in reach. All needs met in room. Therapy Code Descriptions/Definitions Functional [place] Measure: 0=Not Assessed/NA 4=Minimal Assistance 1=Total Assistance 5=Supervision or Setup 2=Maximal Assistance 6=Modified [place] 3=Moderate Assistance 7=Complete IndependenceSCALE: Activities may be completed with or without assistive devices. 9-Usdbnsylgu-sfkhqpc completes the activity by him/herself with no assistance from a helper. 5-Set-up or Clean-up Assistance-helper sets up or cleans up; patient completes activity. [place] assists only prior to or following the activity. 4-Supervision or Touching Assistance-helper provides verbal cues and/or touching/steadying and/or contact guard assistance as patient completes activity. Assistance may be provided throughout the activity or intermittently. 3-Partial/Moderate Assistance-helper does LESS THAN HALF the effort. [place] lifts, holds or supports trunk or limbs, but provides less than half the effort. 2-Substantial/Maximal Assistance-helper does MORE THAN HALF the effort. [place] lifts or holds trunk or limbs and provides more than half the effort. 3-Jbxyxstqs-wzrgmn does ALL the effort. Patient does none of the effort to complete the activity. Or, the assistance of 2 or more helpers is required for the patient to complete the activity. If activity was not attempted, code reason: 7-Patient Refused. 9-Not Applicable-not attempted and the patient did not perform the activity before the current illness, exacerbation or injury. 10-Not Attempted due to Environmental Limitations-(lack of equipment, weather restraints, etc.). 88-Not Attempted due to Medical Conditions or Safety Concerns. Oral Hygiene (QC): 7 OT Short Term Goals Short Term Goals Time Frame: Jul 15, 2020 Eatin Oral hygiene: 3 Toileting hygiene: 3 Shower/bathe self: 3 Upper body dressin Lower body dressin Putting on/taking off footwear: 3 OT Chain Maker Loom Control Goals Chain Maker Loom Control Goals Time Frame: Jul 29, 2020 Eating (QC): 6 Oral Hygiene (QC): 6 Toileting Hygiene (QC): 6 Shower/Bathe Self (QC): 4 Upper Body Dressing (QC): 5 Lower Body Dressing (QC): 4 On/Off Footwear (QC): 5 Additional Goals: 1-Demonstrate ADL Tasks, 2-Verbalize Understanding, 3- ImproveStrength/Tang 1=Demonstrate adherence to instructed precautions during ADL tasks. 2=Patient will verbalize/demonstrate understanding of assistive devices/modifications for ADL. 3=Patient will improve strength/tolerance for activity to enable patient to perform ADL's. OT Education/Plan Problem List/Assessment Assessment: Decreased Activ Tolerance, Impaired Cognition, Impaired Coordination, Impaired Funct Balance, Impaired Self-Care Skills Discharge Recommendations Plan/Recommendations: Continue POC Treatment Plan/Plan of Care Patient would benefit from OT for education, treatment and training to promote independence in ADL's, mobility, safety and/or upper extremity function for ADL's. Plan of Care: ADL Retraining, Functional Mobility, Group Exercise/Act as Ind, UE Funct Exercise/Act Treatment Duration: Jul 29, 2020 Frequency: At least 5 of 7 days/Wk (IRF) Estimated Hrs Per Day: Other (Due to a Covid-19 viral infection, the patient has deficits that warrant inpatient Acute Rehab. The patient will clearly benefit from intensive PT and OT, however, due to patient's observed endurance and therapy considerations, she may not be able to to tolerate the full 3 hours of scheduled therapy. Therefore, she will be scheduled for as much therapy as she can tolerate with intentional rest breaks, shortened sessions, including providing therapy across 6 to 7 days. As the patient tolerates, the intensity, frequency, and duration of her therapy program will be increased.) Agreement: Yes Rehab Potential: Fair Time/GCodes Start Time: 10:00 Stop Time: 11:00 Total Time Billed (hr/min): 60 Billed Treatment Time 1 visit-FA 4 (60 min) MIGNON CASTILLO Jul 15, 2020 11:11
--- NOTE | 2020-07-15 12:03 | NUR ---
CM/SS CONCURRENT DOCUMENTATION CARE HOME [facility] called to inquire about patient's status. [facility] has full intention to accept patient back into her established residency there. [place] reports that patient's current agitation and resistive tendency is consistent with her mental health diagnosis and is typical of her behavioral responses. [place] also indicates that if patient entered a half-way environment she should be anticipated to rapidly decline further due to her behavioral response. Scheduled [facility] RN/Anthony for family training July 16. [facility] staff and communication board updated.
--- NOTE | 2020-07-15 13:15 | Speech Therapy Daily Note ---
Speech Daily Progress Note Subjective Date Seen by Provider: Jul 15, 2020 Time Seen by Provider: 00:30 Patient was sitting in her recliner drinking a shake and eating a martínez icee. Nursing states the patient's BS had dropped to 57 this am. Objective Patient was given a series of q/a related to her daily needs. The patient responded consistently with irrelevant answers. Patient required frequent redirection to focus on task. Assessment Assessment Current Status: Fair Progress Treatment Plan Continue Plan of Care Speech Short Term Goals Short Term Goals Short Term Goals 1) The patient will complete memory tasks related to her daily needs at 90% or greater with minimal cues. 2) The patient will complete problem solving tasks related to her daily needs at 90% or greater with minimal cues. 3) The patient will complete safety awareness tasks related to her daily needs at 90% or greater with minimal cues. Speech Fpc Goals Fpc Goals Patient will improve cognitive-communication necessary for safety and daily living tasks with minimal assist. Speech-Plan Patient/Family Goals Patient/Family Goals: Patient plans on returning to her [place] apartment upon discharge. She is scheduled to complete "family training" with the [facility] nurse tomorrow. Treatment Plan Speech Therapy Treatment Plan: Continue Plan of Care Treatment Duration: Jul 10, 2020 Frequency: 4 times per week (Patient will receive skilled ST 4-5x per week) Estimated Hrs Per Day: .5 hour per day Rehab Potential: Fair Barriers to Learning: Patient's recent medical status, cognitive deficits Pt/Family Agrees to Plan: Yes Safety Risks/Education Teaching Recipient: Patient Teaching Methods: Demonstration, Discussion Response to Teaching: Verbalize Understanding, Return Demonstration, Reinforcement Needed Education Topics Provided: Continued safety within her room and utilization of the call light as needed Time Speech Therapy Time In: 09:30 Speech Therapy Time Out: 10:00 Total Billed Time: 30 Billed Treatment Time 1, SLMAGALYS Nina Jul 15, 2020 13:15
[2020-07-15 17:07] VITALS: BP 113/53
[2020-07-15] MEDS: MIRTAZAPINE 15 MG (REMERON) TAB PO SCH (20:23)
[2020-07-15] MEDS: ENOXAPARIN 40 MG/0.4 ML (LOVENOX) SYR SC SCH (20:23)
[2020-07-15] MEDS: MELATONIN 3 MG TABLET PO PRN (20:23)
[2020-07-16] MEDS: ALPRAZolam 0.25 MG (XANAX) TAB PO PRN ×2 (03:19→13:31)
[2020-07-16] MEDS: ACETAMINOPHEN 500 MG TAB (TYLENOL) PO PRN (03:20)
[2020-07-16 06:03] VITALS: BP 123/94
[2020-07-16] MEDS: RT-ALBUTEROL INHALER HFA (VENTOLIN HFA) 18 GM IH SCH ×2 (07:08→20:08)
[2020-07-16] MEDS: PRAMIPEXOLE 0.5 MG TAB (MIRAPEX) PO SCH ×3 (08:00→21:25)
[2020-07-16] MEDS: DULoxetine 30 MG (CYMBALTA) CAP PO SCH (08:00)
[2020-07-16] MEDS: LEVETIRACETAM 1,000 MG (KEPPRA) TABLET PO SCH ×2 (08:00→21:25)
[2020-07-16] MEDS: ASPIRIN E.C. 81 MG (ECOTRIN) TAB PO SCH (08:00)
[2020-07-16] MEDS: SENNA W/DOCUSATE (SENOKOT S) TABLET PO SCH ×2 (08:00→21:25)
[2020-07-16] MEDS: polyethylene glycoL POWDER 17 GM (MIRALAX) PACK PO SCH ×2 (08:00→23:11)
[2020-07-16] MEDS: DOCUSATE SODIUM 100 MG (COLACE) CAP PO SCH ×2 (08:01→21:26)
[2020-07-16] MEDS: OXYBUTYNIN (DITROPAN) 5 MG TAB PO SCH ×3 (08:01→21:25)
[2020-07-16] MEDS: DIVALPROEX EXT RELEASE 500 MG (DEPAKOTE ER) TAB PO SCH ×2 (08:01→21:25)
[2020-07-16] MEDS: toPIRamate 25 MG (TOPAMAX) TAB PO SCH ×2 (08:01→21:25)
[2020-07-16] MEDS: MICONAZOLE 2% POWDER (DESENEX AF) 90 GM TOP SCH ×2 (08:01→21:26)
[2020-07-16] MEDS: NYSTATIN CREAM (MYCOSTATIN) 30 GM TUBE TP SCH ×2 (08:02→21:26)
[2020-07-16] MEDS ORDERED: ZINC OXIDE 16% OINT (BUTT PASTE) 57 GM TUBE TOP PRN (08:30)
--- NOTE | 2020-07-16 08:34 | PM&R Progress Note ---
Subjective HPI/CC On Admission Date Seen by Provider: Jul 16, 2020 Time Seen by Provider: 08:15 Subjective/Events-last exam 07/16/20: No major issues Didnt sleep too well last night Set for DC tomorrow back to assisted living Participating in therapy fairly well Cognition is definitely a limitation 07/15/20: Pt doing pretty well Labs stable Bowels moved Sugar was 58 this morning, she just doesnt eat well Poor prognosis long-term Will initiate a nighttime snack 07/14/20: Slept well last night since had the Remeron 15mg PO Up in chair now and is sleepy No major issues Checking labs in am 07/13/20: DId not sleep well last night and not for many nights Starting Remeron 15mg at night to help No pain reported 07/12/20: Patient doing well Confusion limits recovery BM after suppository Increased appetite 07/11/20: Lactulose, SSE until BM will be given Suppository daily if needed More confused today Working with therapy Incontinence 07/10/20: Pt will go to assisted living at ID at [facility] Decreased walking with walker due to confusion Dry cough still, also taking Tesselon Pearles Last had a BM on July 08 so given laxatives Will recheck her progress tomorrow Maintained on room air Confusion requires co-treating with therapies 07/09/20: Pt has some labile BP Has some sun-downers from dementia, she thought she was in [facility] last night Incontinent of bowel and bladder Tessalon Perles given for cough from Covid and Influenza B Denies any other significant issues Review of Systems General: Fatigue, Malaise Neurological: Weakness, Incoordination, Confusion Objective Exam Vital Signs Vital Signs Date Time Temp Pulse Resp B/P (MAP) Pulse Ox O2 Delivery O2 Flow Rate FiO2 07/16/20 20:09 96 Room Air 07/16/20 15:50 36.2 68 16 118/57 (77) Capillary Refill : Less Than 3 Seconds General Appearance: No Apparent Distress, WD/WN, Chronically ill HEENT: PERRL/EOMI, Normal ENT Inspection, Pharynx Normal Neck: Full Range of Motion, Normal Inspection, Non Tender, Supple, Carotid Bruit Respiratory: Chest Non Tender, Lungs Clear, No Accessory Muscle Use, No Respiratory Distress, Decreased Breath Sounds Cardiovascular: Regular Rate, Rhythm, No Edema, No Gallop, No JVD, No Murmur, Normal Peripheral Pulses Gastrointestinal: Normal Bowel Sounds, No Organomegaly, No Pulsatile Mass, Non Tender, Soft Back: Normal Inspection, No CVA Tenderness, No Vertebral Tenderness Extremity: Normal Capillary Refill, Normal Inspection, Normal Range of Motion, Non Tender, No Calf Tenderness, No Pedal Edema Neurologic/Psychiatric: Alert, Oriented x3, No Motor/Sensory Deficits, Normal Mood/Affect, Motor Weakness (3/5 strength lower extremities and 4/5 strength upper extremities) Skin: Normal Color, Warm/Dry Lymphatic: No Adenopathy Results/Procedures Lab Patient resulted labs reviewed. FIM Transfers Therapy Code Descriptions/Definitions Functional [place] Measure: 0=Not Assessed/NA 4=Minimal Assistance 1=Total Assistance 5=Supervision or Setup 2=Maximal Assistance 6=Modified [place] 3=Moderate Assistance 7=Complete IndependenceSCALE: Activities may be completed with or without assistive devices. 7-Xdgptwowvo-nrnneah completes the activity by him/herself with no assistance from a helper. 5-Set-up or Clean-up Assistance-helper sets up or cleans up; patient completes activity. [place] assists only prior to or following the activity. 4-Supervision or Touching Assistance-helper provides verbal cues and/or touching/steadying and/or contact guard assistance as patient completes activity. Assistance may be provided throughout the activity or intermittently. 3-Partial/Moderate Assistance-helper does LESS THAN HALF the effort. [place] lifts, holds or supports trunk or limbs, but provides less than half the effort. 2-Substantial/Maximal Assistance-helper does MORE THAN HALF the effort. [place] lifts or holds trunk or limbs and provides more than half the effort. 3-Ptrqizcna-xdpmme does ALL the effort. Patient does none of the effort to complete the activity. Or, the assistance of 2 or more helpers is required for the patient to complete the activity. If activity was not attempted, code reason: 7-Patient Refused. 9-Not Applicable-not attempted and the patient did not perform the activity before the current illness, exacerbation or injury. 10-Not Attempted due to Environmental Limitations-(lack of equipment, weather restraints, etc.). 88-Not Attempted due to Medical Conditions or Safety Concerns. Roll Left to Right (QC): 4 Sit to Lying (QC): 3 Sit to Stand (QC): 3 Chair/Hlz-gl-Oshby Xfer(QC): 3 Car Transfer (QC): 3 Gait Training Does the Patient Walk?: Yes Distance: 20' Walk 10 feet (QC): 3 Walk 50 ft with 2 Turns(QC): 4 Walk 150 ft (QC): 88 Walking 10ft/uneven surface-QC: 88 Gait Persons Needed: 2 Gait Assistive Device: FWW Wheelchair Training Does the Pt Use a Wheelchair?: Yes Wheel 50 ft with 2 turns (QC): 3 Wheel 150 ft (QC): 1 Type of Wheelchair: Manual Stair Training 1 Step (curb) (QC): 88 4 Steps (QC): 88 12 Steps (QC): 88 Balance Picking up an Object (QC): 88 ADL-Treatment Eating (QC): 6 Oral Hygiene (QC): 7 Bathing Location: L Arm, R Arm, Chest, Abdomen Shower/Bathe Self (QC): 1 Upper Body Dressing (QC): 2 Lower Body Dressing (QC): 2 On/Off Footwear (QC): 2 Toileting Hygiene (QC): 2 Toilet Transfer (QC): 2 Assessment/Plan Assessment and Plan Assess & Plan/Chief Complaint Assessment: 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 PNA s/p Influenza B h/o TBI Seizures Dementia CAD HTN HLP Anemia Plan: Monitor seizures Home meds O2 IRF protocol 07/09/20: Monitor BP O2 management Monitor sundowning 07/10/20: Monitor O2 sat Cognition focus with therapy Increase ambulation 07/11/20: BM regimen Monitor confusion 07/12/20/: Monitor confusion BM regimen Monitor O2 07/13/20: Monitor confusion Remeron 15mg at night shift O2 and cough 07/14/20; Improved sleep with Remeron Monitor for falls Monitor confusion Monitor closely 07/15/20: Cough treatment Continue Remeron 07/16/20: DC tomorrow Monitor closely (1) Myopathy (2) Pneumonia due to COVID-19 virus Status: Acute (3) Acute kidney injury superimposed on chronic kidney disease Status: Acute (4) Seizure disorder Status: Chronic (5) Influenza B Status: Acute (6) Altered mental status Status: Acute (7) Hypotension Status: Acute (8) Hypoglycemia Status: Acute (9) History of traumatic brain injury Status: Chronic DADA SANDOVAL DO Jul 16, 2020 08:34
--- NOTE | 2020-07-16 09:49 | Speech Therapy Daily Note ---
Speech Daily Progress Note Subjective Date Seen by Provider: Jul 16, 2020 Time Seen by Provider: 00:30 Patient was sitting on her bedside commode when I entered her room. Nursing assisted her in completion of her need and was assisted to her recliner. When asked if she felt better today she stated "not really". Objective Patient completed a series of memory cards related to safety and communication of needs with 75% given mod to max verbal and/or visual cues. Assessment Assessment Current Status: Fair Progress Treatment Plan Continue Plan of Care Speech Short Term Goals Short Term Goals Short Term Goals 1) The patient will complete memory tasks related to her daily needs at 90% or greater with minimal cues. 2) The patient will complete problem solving tasks related to her daily needs at 90% or greater with minimal cues. 3) The patient will complete safety awareness tasks related to her daily needs at 90% or greater with minimal cues. Speech Technology Sales Consultant Goals Technology Sales Consultant Goals Patient will improve cognitive-communication necessary for safety and daily living tasks with minimal assist. Speech-Plan Patient/Family Goals Patient/Family Goals: Patient plans on returning to her [place] apartment upon discharge. Nursing from her home facility will be here for training this am. Treatment Plan Speech Therapy Treatment Plan: Continue Plan of Care Treatment Duration: Jul 10, 2020 Frequency: 4 times per week (Patient will receive skilled ST 4-5x per week) Estimated Hrs Per Day: .5 hour per day Rehab Potential: Guarded Barriers to Learning: Patient's decline in function, both physical and cognitive Pt/Family Agrees to Plan: Yes Safety Risks/Education Teaching Recipient: Patient Teaching Methods: Demonstration, Discussion Response to Teaching: Verbalize Understanding, Return Demonstration, Reinforcement Needed Education Topics Provided: Continued safety within her room, re-education of utilization of the call light Time Speech Therapy Time In: 09:30 Speech Therapy Time Out: 10:00 Total Billed Time: 30 Billed Treatment Time 1, MAGALYS Mart Jul 16, 2020 09:49
--- NOTE | 2020-07-16 10:53 | NUR ---
CM/SS DISCHARGE PLANNING [facility] RN/Marleny Vazquez here this a.m. to observe patient therapy sessions. Marleny confirmed they would take patient back tomorrow. Their facility is actively quarantined until July 22, unless other resident's become Covid +. Per Marleny, [facility] to [facility] patient, proposed time is around 1100. [facility] van scheduling will determine actual garbage pick up man time. IMM2 presented, reviewed, discussed. Signed with patient permission and charted. Patient expressed how happy she is to return to her residency with [facility]. Updated brother/POA-HC Addy Stockton via phone, updated [facility] team members and communication board.
--- NOTE | 2020-07-16 12:29 | Physical Therapy Daily Note ---
PT Daily Note-Current Subjective Pt alert, sitting in recliner. Nrsg from [facility] ([facility]) here for training/observation of pt. Pt appears to perk up and become more animated and initially moving with on own volition. As the demands to complete more tasks on own, pt begins to shut down and refuse to complete moving slower with all mobility and ADLs. [facility] nurse stated that this is how she is until she get back to her place then is able to complete tasks independently. Pt thinks that it is 11pm at end of treatment. Pain Location Body Site: Back Comment: Pt reports pain in back & L knee but doesn't rate. Mental Status Patient Orientation: Person, Confused Transfers SCALE: Activities may be completed with or without assistive devices. 6-Dhgbazntwp-cvddyil completes the activity by him/herself with no assistance from a helper. 5-Set-up or Clean-up Assistance-helper sets up or cleans up; patient completes activity. [place] assists only prior to or following the activity. 4-Supervision or Touching Assistance-helper provides verbal cues and/or touching/steadying and/or contact guard assistance as patient completes activity. Assistance may be provided throughout the activity or intermittently. 3-Partial/Moderate Assistance-helper does LESS THAN HALF the effort. [place] lifts, holds or supports trunk or limbs, but provides less than half the effort. 2-Substantial/Maximal Assistance-helper does MORE THAN HALF the effort. [place] lifts or holds trunk or limbs and provides more than half the effort. 4-Ftojlheyl-ndcits does ALL the effort. Patient does none of the effort to comp lete the activity. Or, the assistance of 2 or more helpers is required for the patient to complete the activity. If activity was not attempted, code reason: 7-Patient Refused. 9-Not Applicable-not attempted and the patient did not perform the activity before the current illness, exacerbation or injury. 10-Not Attempted due to Environmental Limitations-(lack of equipment, weather restraints, etc.). 88-Not Attempted due to Medical Conditions or Safety Concerns. Roll Left & Right (QC): 4 Sit to Lying (QC): 4 Lying to Sitting/Side of Bed(Q: 4 Sit to Stand (QC): 4 Chair/Hee-zd-Yuiig Xfer(QC): 4 Toilet Transfer (QC): 4 Car Transfer (QC): 4 Weight Bearing Full Weight Bearing Full Weight Bearing Gait Training Does the Patient Walk?: Yes Distance: 30' Walk 10 feet (QC): 4 Walk 50 ft with 2 Turns(QC): 7 Walk 150 ft (QC): 7 Walking 10ft/uneven surface-QC: 7 Gait Persons Needed: 1 Gait Assistive Device: FWW Wheelchair Training Does the Pt Use a Wheelchair?: Yes Wheel 50 ft with 2 turns (QC): 4 Wheel 150 ft (QC): 4 Type of Wheelchair: Manual Stair Training 1 Step (curb) (QC): 7 4 Steps (QC): 7 12 Steps (QC): 7 Balance Picking up an Object (QC): 7 Treatments Co-treat with PT ([id number]), skills of 2 clinicians required for skilled care and treatment due to decreased activity tolerance, debility and increased SOA. PT focusing on mobility and transfers while OT focusing on B UE placement with mobility and ADLs. Pt is inconsistent with transfers, mobility and ADLs. At times pt is able to complete mobility with CGA then will need increased assistance and always needs verbal cues cues for hand placement and manipulate FWW. Pt ambulated to bathroom and transferred to toilet with CGA using FWW. Pt then began to shut down and require verbal and physical cues to complete certain tasks. Pt cleansed self on toilet though would not hike pants over buttocks. Pt refused to don/doff socks on own so required max A. Pt refused to don/doff briefs, max A. Pt initially refused to complete oral care then completed standing at sink with CGA for safety. Pt would just stop moving with ambulation and w/c mobility. Pt stated that she was not dirty and did not required shower, using bath pack sponge bath completed. Pt washed L upper arm and stopped. Assist to cleanse rest of body, as pt was saying 'ow' that hurts, pt dried self with towel. Max A for upper body dressing. SBA for pt to transfer from w/c to recliner. After therapy, pt sitting in recliner with call light/phone in reach. All needs met in room. Assessment Current Status: Fair Progress Pt completes tasks as she wants to and can be defiant if she does not want to complete the task at hand. PT Short Term Goals Short Term Goals Time Frame: Jul 15, 2020 Roll Left & Right: 6 Sit to lyin Lying to sitting on side of be: 4 Sit to stand: 4 Chair/qer-jo-bgvud transfer: 4 Walk 10 feet: 4 Walk 50 feet with two turns: 4 PT Longterm Goals Longterm Goals PT Longterm Goals Time Frame: Jul 29, 2020 Roll Left & Right (QC): 6 Sit to Lying (QC): 6 Lying-Sitting on Side/Bed(QC): 6 Sit to Stand (QC): 5 Chair/Oxu-yg-Ofswx Xfer(QC): 5 Toilet Transfer (QC): 5 Car Transfer (QC): 5 Does the Patient Walk: Yes Walk 10 feet (QC): 5 Walk 50ft with 2 Turns (QC): 5 Walk 150 ft (QC): 88 Walking 10ft on Uneven Surface: 4 1 Step (curb) (QC): 88 4 Steps (QC): 88 12 Steps (QC): 88 Picking up an Object (QC): 88 Wheel 50 feet with 2 turns (QC: 4 Wheel 150 feet: 4 PT Plan Problem List Problem List: Activity Tolerance Treatment/Plan Treatment Plan: Continue Plan of Care Treatment Plan: Bed Mobility, Education, Functional Activity Tang, Functional Strength, Group Therapy, Gait, Safety, Therapeutic Exercise, Transfers Treatment Duration: Jul 15, 2020 Frequency: Modified Program (IRF) Estimated Hrs Per Day: 1 hour per day Patient and/or Family Agrees t: Yes Safety Risks/Education Patient Education: Gait Training, Transfer Techniques, Correct Positioning, W/C Management, Safety Issues Teaching Recipient: Patient Teaching Methods: Discussion Response to Teaching: Reinforcement Needed Time/GCodes Time In: 1000 Time Out: 1100 Total Billed Treatment Time: 60 Total Billed Treatment 1, FA x4 (60m) Co-treat w/OT for 60m RICHIEADELINE PATEL KETTLE LOADER Jul 16, 2020 12:29
--- NOTE | 2020-07-16 12:41 | Occupational Ther Daily Note ---
OT Current Status-Daily Note Subjective Pt alert, sitting in recliner. Nrsg from [facility] here for training/observation of pt. Pt appears to perk up and become more animated and initially moving with on own volition. As the demands to complete more tasks on own, pt begins to shut down and refuse to complete moving slower with all mobility and ADLs. [facility] nurse stated that this is how she is until she get back to her place then is able to complete tasks independently. Pt thinks that it is 11pm at end of treatment. Mental Status/Objective Patient Orientation: Person ADL-Treatment Co-treat with PT ([id number]), skills of 2 clinicians required for skilled care and treatment due to decreased activity tolerance, debility and increased SOA. PT focusing on mobility and transfers while OT focusing on B UE placement with mobility and ADLs. Pt is inconsistent with transfers, mobility and ADLs. At times pt is able to complete mobility with CGA then will need increased assistance and always needs verbal cues cues for hand placement and manipulate FWW. Pt ambulated to bathroom and transferred to toilet with CGA using FWW. Pt then began to shut down and require verbal and physical cues to complete certain tasks. Pt cleansed self on toilet though would not hike pants over buttocks. Pt refused to don/doff socks on own so required max A. Pt refused to don/doff briefs, max A. Pt initially refused to complete oral care then completed standing at sink with CGA for safety. Pt would just stop moving with ambulation and w/c mobility. Pt stated that she was not dirty and did not required shower, using bath pack sponge bath completed. Pt washed L upper arm and stopped. As sist to cleanse rest of body, as pt was saying 'ow' that hurts, pt dried self with towel. Max A for upper body dressing. SBA for pt to transfer from w/c to recliner. After therapy, pt sitting in recliner with call light/phone in reach. All needs met in room. Therapy Code Descriptions/Definitions Functional [place] Measure: 0=Not Assessed/NA 4=Minimal Assistance 1=Total Assistance 5=Supervision or Setup 2=Maximal Assistance 6=Modified [place] 3=Moderate Assistance 7=Complete IndependenceSCALE: Activities may be completed with or without assistive devices. 3-Ttszqmpiri-zfshtpn completes the activity by him/herself with no assistance from a helper. 5-Set-up or Clean-up Assistance-helper sets up or cleans up; patient completes activity. [place] assists only prior to or following the activity. 4-Supervision or Touching Assistance-helper provides verbal cues and/or touching/steadying and/or contact guard assistance as patient completes activity. Assistance may be provided throughout the activity or intermittently. 3-Partial/Moderate Assistance-helper does LESS THAN HALF the effort. [place] lifts, holds or supports trunk or limbs, but provides less than half the effort. 2-Substantial/Maximal Assistance-helper does MORE THAN HALF the effort. [place] lifts or holds trunk or limbs and provides more than half the effort. 4-Efplixbyq-ecrzvn does ALL the effort. Patient does none of the effort to compl ete the activity. Or, the assistance of 2 or more helpers is required for the patient to complete the activity. If activity was not attempted, code reason: 7-Patient Refused. 9-Not Applicable-not attempted and the patient did not perform the activity before the current illness, exacerbation or injury. 10-Not Attempted due to Environmental Limitations-(lack of equipment, weather restraints, etc.). 88-Not Attempted due to Medical Conditions or Safety Concerns. Eating (QC): 6 (Using clinical judgement, pt has demonstrated the ability to complete own meal set up and use regular utensils.) Oral Hygiene (QC): 4 Shower/Bathe Self (QC): 2 Upper Body Dressing (QC): 2 Lower Body Dressing (QC): 2 On/Off Footwear: 2 Toileting Hygiene (QC): 2 Toilet Transfer (QC): 3 Other Treatment Pt ambulated to gym to complete NuStep though assistance to make B UE/LE move required. Pt refused to complete car transfer and attempted to just sit down, stating 'ow' you are hurting me. Pt would not move body to safe position to sit or transfer. Assist x4 to sit down safely in w/c. OT Short Term Goals Short Term Goals Time Frame: Jul 15, 2020 Eatin Oral hygiene: 3 Toileting hygiene: 3 Shower/bathe self: 3 Upper body dressin Lower body dressin Putting on/taking off footwear: 3 OT Skilled Nursing Goals Skilled Nursing Goals Time Frame: Jul 29, 2020 Eating (QC): 6 (met) Oral Hygiene (QC): 6 (not met) Toileting Hygiene (QC): 6 (not met) Shower/Bathe Self (QC): 4 (not met) Upper Body Dressing (QC): 5 (not met) Lower Body Dressing (QC): 4 (not met) On/Off Footwear (QC): 5 (not met) Additional Goals: 1-Demonstrate ADL Tasks, 2-Verbalize Understanding, 3- ImproveStrength/Tang 1=Demonstrate adherence to instructed precautions during ADL tasks. 2=Patient will verbalize/demonstrate understanding of assistive devices /modifications for ADL. 3=Patient will improve strength/tolerance for activity to enable patient to perform ADL's. OT Education/Plan Problem List/Assessment Assessment: Decreased Activ Tolerance, Decreased Safety Aware, Impaired Cognition, Impaired Self-Care Skills Discharge Recommendations Plan/Recommendations: Continue POC Treatment Plan/Plan of Care Patient would benefit from OT for education, treatment and training to promote independence in ADL's, mobility, safety and/or upper extremity function for ADL's. Plan of Care: ADL Retraining, Functional Mobility, Group Exercise/Act as Ind, UE Funct Exercise/Act Treatment Duration: Jul 29, 2020 Frequency: At least 5 of 7 days/Wk (IRF) Estimated Hrs Per Day: Other (Due to a Covid-19 viral infection, the patient has deficits that warrant inpatient Acute Rehab. The patient will clearly benefit from intensive PT and OT, however, due to patient's observed endurance and therapy considerations, she may not be able to to tolerate the full 3 hours of scheduled therapy. Therefore, she will be scheduled for as much therapy as she can tolerate with intentional rest breaks, shortened sessions, including providing therapy across 6 to 7 days. As the patient tolerates, the intensity, frequency, and duration of her therapy program will be increased.) Agreement: Yes Rehab Potential: Guarded Time/GCodes Start Time: 10:00 Stop Time: 11:15 Total Time Billed (hr/min): 75 Billed Treatment Time 1 visit-ADL 3 (45 min) FA 2 (30 min) MIGNON CASTILLO Jul 16, 2020 12:41
--- NOTE | 2020-07-16 15:47 | NUR ---
"RD ASSESSMENT PMHx: CAD; hypercholesterolemia; HTN; dementia; seizure disorder; TBI; GERD; chronic constipation/diarrhea; irritable bowel PT INTERACTION: Pt was awake and pleasant for nutrition follow-up. Note pt has hx of dementia, per chart review. Pt states she has been eating okay since last assessment. Note avg PO intake 25-50% x4d, per chart review. Pt states no issues with nausea, vomiting, constipation, or diarrhea since last assessment. Note last BM was 07/13, and pt currently on bowel regimen of coalce BID, senna BID, and miralax BID, per chart review. Est. kcal needs: 3586-8671 kcal | 15-20 kcal/kg Est. Pro needs: 70-88 g Pro | 0.8-1.0 g Pro/kg PES STATEMENT: Inadequate oral intake (NI-2.1) related to loss of appetite, as evidenced by pt interview, and avg PO intake 25-50% x4d. INTERVENTION: Continue with current diet order of Regular diet. Continue with current supplement order of Ensure Clear with meals. Provides 250 kcal and 8 g Pro per serving. Encouraged pt to eat when able. Will continue to follow and reassess as pt needs, intake, and status change. Peggy PASTOR MS RD LD [phone] cell"
[2020-07-16 15:50] VITALS: BP 118/57
[2020-07-16] MEDS: MIRTAZAPINE 15 MG (REMERON) TAB PO SCH (21:25)
[2020-07-16] MEDS: ENOXAPARIN 40 MG/0.4 ML (LOVENOX) SYR SC SCH (21:25)
[2020-07-17] MEDS ORDERED: NYST15CR TP (05:55)
[2020-07-17] MEDS ORDERED: MICO90PO TOP (05:55)
[2020-07-17] MEDS ORDERED: ZINC28PA TOP (05:55)
[2020-07-17] MEDS ORDERED: BENZ100C18 PO (05:55)
[2020-07-17] MEDS ORDERED: ALBU18HF2 IH (05:55)
--- NOTE | 2020-07-17 05:56 | Discharge Summary ---
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 PNA s/p Influenza B h/o TBI Seizures Dementia CAD HTN HLP Anemia Plan: Monitor seizures Home meds O2 IRF protocol 07/09/20: Monitor BP O2 management Monitor sundowning 07/10/20: Monitor O2 sat Cognition focus with therapy Increase ambulation 07/11/20: BM regimen Monitor confusion 07/12/20/: Monitor confusion BM regimen Monitor O2 07/13/20: Monitor confusion Remeron 15mg at inspector returned materials O2 and cough 07/14/20; Improved sleep with Remeron Monitor for falls Monitor confusion Monitor closely 07/15/20: Cough treatment Continue Remeron 07/16/20: DC tomorrow Monitor closely (1) Myopathy (2) Pneumonia due to COVID-19 virus Status: Acute (3) Acute kidney injury superimposed on chronic kidney disease Status: Acute (4) Seizure disorder Status: Chronic (5) Influenza B Status: Acute (6) Altered mental status Status: Acute (7) Hypotension Status: Acute (8) Hypoglycemia Status: Acute (9) History of traumatic brain injury Status: Chronic Discharge Summary Discharge Physical Examination Allergies: Coded Allergies: Penicillins (Verified Allergy, Mild, 07/22/13) latex (Verified Allergy, Mild, 07/22/13) Vitals & I&Os Vital Signs Date Time Temp Pulse Resp B/P (MAP) Pulse Ox O2 Delivery O2 Flow Rate FiO2 07/17/20 12:54 36.2 68 20 115/55 97 Room Air General Appearance: Alert, Cooperative Respiratory: Clear to Auscultation Cardiovascular: Regular Rate Abdominal: Normal Bowel Sounds Neuro: Normal Gait Hospital Course Was the Problem List Reviewed?: Yes Hospital course: Pt had a lengthy hospital course, she was admitted to inpatient rehab following Covid-19 and Influenza-B debility. She did not required oxygen, she did have chronic cough which was managed with Tessalon Perles. Her labs remain stable. Pt did not have a good appetite even though we tried multiple different ways to help her eat but she overall did very well, had no significant decompensation during the hospital stay and was deemed stable back to assisted-living. Labs (last 24 hrs) Laboratory Tests 07/09/20 05:15: White Blood Count 9.2, Red Blood Count 3.41L, Hemoglobin 10.9L, Hematocrit 33L, Mean Corpuscular Volume 98, Mean Corpuscular Hemoglobin 32, Mean Corpuscular Hemoglobin Concent 33, Red Cell Distribution Width 14.7H, Platelet Count 152, Mean Platelet Volume 11.4, Immature Granulocyte % (Auto) 17, Neutrophils (%) (Auto) 45, Lymphocytes (%) (Auto) 24, Monocytes (%) (Auto) 14H, Eosinophils (%) (Auto) 1, Basophils (%) (Auto) 1, Neutrophils # (Auto) 4.1, Lymphocytes # (Auto) 2.2, Monocytes # (Auto) 1.3H, Eosinophils # (Auto) 0.1, Basophils # (Auto) 0.1, Immature Granulocyte # (Auto) 1.6H, Neutrophils % (Manual) 52, Lymphocytes % (Ma nual) 24, Monocytes % (Manual) 16, Atypical Lymphocytes 8, Blood Morphology Comment NORMAL, Sodium Level 136, Potassium Level 4.3, Chloride Level 104, Carbon Dioxide Level 25, Anion Gap 7, Blood Urea Nitrogen 13, Creatinine 0.77, Estimat Glomerular Filtration Rate > 60, BUN/Creatinine Ratio 17, Glucose Level 72, Calcium Level 8.6, Corrected Calcium 9.6, Total Bilirubin 0.5, Aspartate Amino Transf (AST/SGOT) 29, Alanine Aminotransferase (ALT/SGPT) 14, Alkaline Phosphatase 111, Total Protein 5.9L, Albumin 2.7L 07/15/20 04:25: White Blood Count 7.4, Red Blood Count 4.03, Hemoglobin 12.5, Hematocrit 41, Mean Corpuscular Volume 101H, Mean Corpuscular Hemoglobin 31, Mean Corpuscular Hemoglobin Concent 31L, Red Cell Distribution Width 16.6H, Platelet Count 125L, Mean Platelet Volume 11.9, Immature Granulocyte % (Auto) 17, Neutrophils (%) (Auto) 33L, Lymphocytes (%) (Auto) 23, Monocytes (%) (Auto) 25H, Eosinophils (%) (Auto) 1, Basophils (%) (Auto) 1, Neutrophils # (Auto) 2.4, Lymphocytes # (Auto) 1.7, Monocytes # (Auto) 1.8H, Eosinophils # (Auto) 0.1, Basophils # (Auto) 0.1, Immature Granulocyte # (Auto) 1.3H, Sodium Level 138, Potassium Level 4.6, Chloride Level 111H, Carbon Dioxide Level 14L, Anion Gap 13, Blood Urea Nitrogen 8, Creatinine 0.80, Estimat Glomerular Filtration Rate > 60, BUN/Creatinine Ratio 10, Glucose Level 58*L, Calcium Level 8.7, Corrected Calcium 9.5, Total Bilirubin 0.3, Aspartate Amino Transf (AST/SGOT) 31, Alanine Aminotransferase (ALT/SGPT) 15, Alkaline Phosphatase 157H, Total Protein 6.2L, Albumin 3.0L Pending Labs Laboratory Tests 07/09/20 05:15: White Blood Count 9.2, Red Blood Count 3.41, Hemoglobin 10.9, Hematocrit 33, Mean Corpuscular Volume 98, Mean Corpuscular Hemoglobin 32, Mean Corpuscular Hemoglobin Concent 33, Red Cell Distribution Width 14.7, Platelet Count 152, Mean Platelet Volume 11.4, Immature Granulocyte % (Auto) 17, Neutrophils (%) (Auto) 45, Lymphocytes (%) (Auto) 24, Monocytes (%) (Auto) 14, Eosinophils (%) (Auto) 1, Basophils (%) (Auto) 1, Neutrophils # (Auto) 4.1, Lymphocytes # (Auto) 2.2, Monocytes # (Auto) 1.3, Eosinophils # (Auto) 0.1, Basophils # (Auto) 0.1, Immature Granulocyte # (Auto) 1.6, Neutrophils % (Manual) 52, Lymphocytes % (Manual) 24, Monocytes % (Manual) 16, Atypical Lymphocytes 8, Blood Morphology Comment NORMAL, Sodium Level 136, Potassium Level 4.3, Chloride Level 104, Carbon Dioxide Level 25, Anion Gap 7, Blood Urea Nitrogen 13, Creatinine 0.77, Estimat Glomerular Filtration Rate > 60, BUN/Creatinine Ratio 17, Glucose Level 72, Calcium Level 8.6, Corrected Calcium 9.6, Total Bilirubin 0.5, Aspartate Amino Transf (AST/SGOT) 29, Alanine Aminotransferase (ALT/SGPT) 14, Alkaline Phosphatase 111, Total Protein 5.9, Albumin 2.7 07/15/20 04:25: White Blood Count 7.4, Red Blood Count 4.03, Hemoglobin 12.5, Hematocrit 41, Mean Corpuscular Volume 101, Mean Corpuscular Hemoglobin 31, Mean Corpuscular Hemoglobin Concent 31, Red Cell Distribution Width 16.6, Platelet Count 125, Mean Platelet Volume 11.9, Immature Granulocyte % (Auto) 17, Neutrophils (%) (Auto) 33, Lymphocytes (%) (Auto) 23, Monocytes (%) (Auto) 25, Eosinophils (%) (Auto) 1, Basophils (%) (Auto) 1, Neutrophils # (Auto) 2.4, Lymphocytes # (Auto) 1.7, Monocytes # (Auto) 1.8, Eosinophils # (Auto) 0.1, Basophils # (Auto) 0.1, Immature Granulocyte # (Auto) 1.3, Sodium Level 138, Potassium Level 4.6, Chloride Level 111, Carbon Dioxide Level 14, Anion Gap 13, Blood Urea Nitrogen 8, Creatinine 0.80, Estimat Glomerular Filtration Rate > 60, BUN/Creatinine Ratio 10, Glucose Level 58, Calcium Level 8.7, Corrected Calcium 9.5, Total Bilirubin 0.3, Aspartate Amino Transf (AST/SGOT) 31, Alanine Aminotransferase (ALT/SGPT) 15, Alkaline Phosphatase 157, Total Protein 6.2, Albumin 3.0 Discharge Home Medications: Active Scripts Active Boudreauxs (Zinc Oxide) 28 Gm Oint 0 Gm TOP NEEDED PRN Nystatin 15 Gm Cream..g. 0 Gm TP BID Lotrimin AF (Miconazole Nitrate) 90 Gm Powder 0 Gm TOP BID Tessalon Perles (Benzonatate) 100 Mg Capsule 100 Mg PO TID PRN Ventolin Hfa (Albuterol Sulfate) 18 Gm Hfa.aer.ad 0 Gm IH Q2HR PRN Reported Methotrexate (Methotrexate Sodium) 2.5 Mg Tablet 10 Mg PO MON TAKES 4 (2.5MG) TABS Furosemide 80 Mg Tablet 80 Mg PO DAILY Quetiapine Fumarate 100 Mg Tablet 100 Mg PO HS TAKES A 100MG +50MG TO EQUAL 150MG Tylenol (Acetaminophen) 325 Mg Capsule 650 Mg PO Q6H PRN Quetiapine Fumarate 50 Mg Tablet 50 Mg PO BID TAKES 50MG DAILY AND 150MG (100MG + 50MG) AT BEDTIME Pramipexole Dihydrochloride (Pramipexole Di-HCl) 0.5 Mg Tablet 0.5 Mg PO TID Depakote ER (Divalproex Sodium) 500 Mg Tab.er.24h 1,000 Mg PO BID TAKES 2 (500MG) TABS Diphenhydramine HCl 25 Mg Capsule 50 Mg PO Q6H PRN Clobetasol Propionate 50 Ml Solution 1 Applic TP BID APPLY TO THE SCALP Clobetasol Propionate 118 Ml Shampoo 1 Applic TOP Q72H Vitamin E (Vitamin E (Dl,Tocopheryl Acet)) 400 Unit Capsule 400 Unit PO DAILY Vitamin C (Ascorbic Acid) 1,000 Mg Tablet 1,000 Mg PO DAILY Topiramate 50 Mg Tablet 50 Mg PO BID Pantoprazole Sodium 40 Mg Tablet.dr 40 Mg PO DAILY Miralax (Polyethylene Glycol 3350) 17 Gm Powd.pack 17 Gm PO DAILY PRN Melatonin 3 Mg Tablet 3 Mg PO HS Lactulose 10 Gm/15 Ml Solution 30 Ml PO DAILY PRN Cymbalta (Duloxetine HCl) 60 Mg Capsule.dr 60 Mg PO DAILY Levetiracetam 1,000 Mg Tablet 1,000 Mg PO BID Prednisolone Acetate 5 Ml Drops.susp 1 Drop OU Q48H Oxybutynin Chloride ER (Oxybutynin Chloride) 15 Mg Tab.er.24 15 Mg PO HS Meloxicam 15 Mg Tablet 15 Mg PO DAILY Aspirin EC (Aspirin) 81 Mg Tablet.dr 81 Mg PO DAILY Instructions to patient/family Please see electronic discharge instructions given to patient. Diagnosis/Problems Diagnosis/Problems (1) Myopathy (2) Pneumonia due to COVID-19 virus Status: Acute (3) Acute kidney injury superimposed on chronic kidney disease Status: Acute (4) Seizure disorder Status: Chronic (5) Influenza B Status: Acute (6) Altered mental status Status: Acute (7) Hypotension Status: Acute (8) Hypoglycemia Status: Acute (9) History of traumatic brain injury Status: Chronic Clinical Quality Measures DVT/VTE Risk/Contraindication: Risk Factor Score Per Nursin RFS Level Per Nursing on Admit: 4+=Very High DADA SANDOVAL DO Jul 17, 2020 05:56
[2020-07-17] MEDS: PANTOPRAZOLE 40 MG (PROTONIX) TAB PO SCH (06:11)
[2020-07-17 06:13] VITALS: BP 115/55
[2020-07-17] MEDS: RT-ALBUTEROL INHALER HFA (VENTOLIN HFA) 18 GM IH SCH (07:45)
--- NOTE | 2020-07-17 08:32 | Therapy Team Discharge Summary ---
Therapy Discharge Summary Discharge Recommendations Date of Discharge 07-17-20 Therapy D/C Recommendations: 24 hr Supervision Occupational Therapy Pt. seen by occupational therapy to increase overall strength and endurance. Pt. met goal of eating, but did not meet any other goals. Pt. requires max assist with most ADLs, but will return to assisted living today with assist. Recommend continued Occupational therapy. Decreased Activ Tolerance, Decreased Safety Aware, Dependent Transfers, Impaired Cognition, Impaired I ADL's, Impaired Self-Care Skills PT Enamel Machine Operator Goals Half-Way Goals PT Enamel Machine Operator Goals Time Frame: Jul 29, 2020 Roll Left to Right (QC): 6 Sit to Lying (QC): 6 Lying-Sitting on Side/Bed(QC): 6 Sit to Stand (QC): 5 Chair/Qcx-kt-Vrrjt Xfer(QC): 5 Car Transfer (QC): 5 Does the Patient Walk: Yes Walk 10 feet (QC): 5 Walk 10ft-Uneven Surface(QC): 4 Walk 50ft with 2 Turns (QC): 5 Walk 150 ft (QC): 88 Wheel 50 feet with 2 turns (QC: 4 1 Step (curb) (QC): 88 4 Steps (QC): 88 12 Steps (QC): 88 Picking up an Object (QC): 88 OT Enamel Machine Operator Goals Enamel Machine Operator Goals Time Frame: Jul 29, 2020 Eating (QC): 6 (met) Oral Hygiene (QC): 6 (not met) Shower/Bathe Self (QC): 4 (not met) Upper Body Dressing (QC): 5 (not met) Lower Body Dressing (QC): 4 (not met) On/Off Footwear (QC): 5 (not met) Toileting Hygiene (QC): 6 (not met) Toilet/Commode Transfer (QC): 5 (not met) Additional Goals: 1-Demonstrate ADL Tasks, 2-Verbalize Understanding, 3- ImproveStrength/Tang 1=Demonstrate adherence to instructed precautions during ADL tasks. 2=Patient will verbalize/demonstrate understanding of assistive devices/modifications for ADL. 3=Patient will improve strength/tolerance for activity to enable patient to perform ADL's. Speech Half-Way Goals Enamel Machine Operator Goals Patient will improve cognitive-communication necessary for safety and daily living tasks with minimal assist. FERNANDA HEBERT OT Jul 17, 2020 08:32
[2020-07-17] MEDS: OXYBUTYNIN (DITROPAN) 5 MG TAB PO SCH (08:39)
[2020-07-17] MEDS: ASPIRIN E.C. 81 MG (ECOTRIN) TAB PO SCH (08:40)
[2020-07-17] MEDS: SENNA W/DOCUSATE (SENOKOT S) TABLET PO SCH (08:40)
[2020-07-17] MEDS: toPIRamate 25 MG (TOPAMAX) TAB PO SCH (08:40)
[2020-07-17] MEDS: DOCUSATE SODIUM 100 MG (COLACE) CAP PO SCH (08:40)
[2020-07-17] MEDS: DULoxetine 30 MG (CYMBALTA) CAP PO SCH (08:40)
[2020-07-17] MEDS: DIVALPROEX EXT RELEASE 500 MG (DEPAKOTE ER) TAB PO SCH (08:40)
[2020-07-17] MEDS: PRAMIPEXOLE 0.5 MG TAB (MIRAPEX) PO SCH (08:40)
[2020-07-17] MEDS: LEVETIRACETAM 1,000 MG (KEPPRA) TABLET PO SCH (08:40)
[2020-07-17] MEDS: MICONAZOLE 2% POWDER (DESENEX AF) 90 GM TOP SCH (08:41)
[2020-07-17] MEDS: NYSTATIN CREAM (MYCOSTATIN) 30 GM TUBE TP SCH (08:41)
[2020-07-17] MEDS: polyethylene glycoL POWDER 17 GM (MIRALAX) PACK PO SCH (08:42)
[2020-07-17] MEDS: prednisoLONE 1% OPTH (PRED FORTE) 5 ML BTL OU SCH (08:42)
--- NOTE | 2020-07-17 10:07 | NUR ---
CM/SS DISCHARGE Patient discharged as planned to return to established residency with [facility] via [facility] transport. [facility] understands we are providing the wheelchair, the facility understands to meet them and transfer patient to their wheelchair, and Van will bring back our chair. Unit RN updated fully. ARU team updated of departure time as it relates to potential admissions to follow. Faxed orders, prepared continuum of care packet to accompany patient. Brother/DPOA was notified yesterday as earlier noted.
--- NOTE | 2020-07-17 10:46 | Therapy Team Discharge Summary ---
Therapy Discharge Summary Discharge Recommendations Date of Discharge Therapy D/C Recommendations: 24 hr Supervision Physical Therapy Patient came to rehab with COVID+, influenza B, sepsis. Upon evaluation patient performed bed mobility with SBA, supine <-> sit min assist, sit <-> stand and tr ansfers with CGA, car transfer min assist, ambulated 20' with a rolling walker with CGA, dependent with WC mobility. Patient has been performing bed mobility and transfer training, balance and endurance training, functional strengthening, gait training, and education. 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 Now, patient performs bed mobility and transfers with CGA, car transfer CGA, ambulated 30' with a rolling walker with CGA, and can propel a manual WC 150' with SBA. Patient is being discharged from this facility today and will be discharged from PT at this time. Occupational Therapy Decreased Activ Tolerance, Decreased Safety Aware, Dependent Transfers, Impaired Cognition, Impaired I ADL's, Impaired Self-Care Skills PT Sourcing Engineer Goals Skilled Nursing Goals PT Skilled Nursing Goals Time Frame: Jul 29, 2020 Roll Left to Right (QC): 6 Sit to Lying (QC): 6 Lying-Sitting on Side/Bed(QC): 6 Sit to Stand (QC): 5 Chair/Dpz-nq-Vndeo Xfer(QC): 5 Car Transfer (QC): 5 Does the Patient Walk: Yes Walk 10 feet (QC): 5 Walk 10ft-Uneven Surface(QC): 4 Walk 50ft with 2 Turns (QC): 5 Walk 150 ft (QC): 88 Wheel 50 feet with 2 turns (QC: 4 1 Step (curb) (QC): 88 4 Steps (QC): 88 12 Steps (QC): 88 Picking up an Object (QC): 88 OT Skilled Nursing Goals Sourcing Engineer Goals Time Frame: Jul 29, 2020 Eating (QC): 6 (met) Oral Hygiene (QC): 6 (not met) Shower/Bathe Self (QC): 4 (not met) Upper Body Dressing (QC): 5 (not met) Lower Body Dressing (QC): 4 (not met) On/Off Footwear (QC): 5 (not met) Toileting Hygiene (QC): 6 (not met) Toilet/Commode Transfer (QC): 5 (not met) Additional Goals: 1-Demonstrate ADL Tasks, 2-Verbalize Understanding, 3- ImproveStrength/Tang 1=Demonstrate adherence to instructed precautions during ADL tasks. 2=Patient will verbalize/demonstrate understanding of assistive devices/modifications for ADL. 3=Patient will improve strength/tolerance for activity to enable patient to perform ADL's. Speech Sourcing Engineer Goals Sourcing Engineer Goals Patient will improve cognitive-communication necessary for safety and daily living tasks with minimal assist. ELIO PEREA PT Jul 17, 2020 10:46
--- NOTE | 2020-07-17 11:03 | Therapy Team Discharge Summary ---
Therapy Discharge Summary Discharge Recommendations Date of Discharge Therapy D/C Recommendations: 24 hr Supervision Occupational Therapy Decreased Activ Tolerance, Decreased Safety Aware, Dependent Transfers, Impaired Cognition, Impaired I ADL's, Impaired Self-Care Skills Speech-Language Pathology Patient was admitted to the ARU following COVID and Flu B. Patient received skilled ST for cognitive deficits as indicated by the SLUMS. Patient made mild progress, however she had difficulty staying focused and demo behaviors that did not lend to improvement. Patient is discharging to her DC apartment this date. PT Halfway Goals Chop Saw Operator Goals PT Halfway Goals Time Frame: Jul 29, 2020 Roll Left to Right (QC): 6 Sit to Lying (QC): 6 Lying-Sitting on Side/Bed(QC): 6 Sit to Stand (QC): 5 Chair/Ewa-cw-Lzkaw Xfer(QC): 5 Car Transfer (QC): 5 Does the Patient Walk: Yes Walk 10 feet (QC): 5 Walk 10ft-Uneven Surface(QC): 4 Walk 50ft with 2 Turns (QC): 5 Walk 150 ft (QC): 88 Wheel 50 feet with 2 turns (QC: 4 1 Step (curb) (QC): 88 4 Steps (QC): 88 12 Steps (QC): 88 Picking up an Object (QC): 88 OT Halfway Goals Halfway Goals Time Frame: Jul 29, 2020 Eating (QC): 6 (met) Oral Hygiene (QC): 6 (not met) Shower/Bathe Self (QC): 4 (not met) Upper Body Dressing (QC): 5 (not met) Lower Body Dressing (QC): 4 (not met) On/Off Footwear (QC): 5 (not met) Toileting Hygiene (QC): 6 (not met) Toilet/Commode Transfer (QC): 5 (not met) Additional Goals: 1-Demonstrate ADL Tasks, 2-Verbalize Understanding, 3- ImproveStrength/Tang 1=Demonstrate adherence to instructed precautions during ADL tasks. 2=Patient will verbalize/demonstrate understanding of assistive devices/modific ations for ADL. 3=Patient will improve strength/tolerance for activity to enable patient to perform ADL's. Speech Chop Saw Operator Goals Chop Saw Operator Goals Patient will improve cognitive-communication necessary for safety and daily living tasks with minimal assist. MAGALYS SWENSON Jul 17, 2020 11:03
--- NOTE | 2020-07-17 12:53 | NUR ---
APPLE VILLELA demonstrates understanding of discharge instructions and accurately returns instructions upon questioning. Copy of Post-Discharge Instructions given to van owner operator/pt. APPLE VILLELA is not able to manage continuing needs after discharge and transferred to [facility]. Patients belongings returned to . Patient discharged from [facility] on 07-17-2020 at 1130. APPLE VILLELA left floor via , accompanied by .
[2020-07-17 12:54] VITALS: BP 115/55
[2020-07-18] MEDS ORDERED: OFLO5DRO3 OP (15:42)
[2020-07-18] MEDS ORDERED: CEPH500T PO (15:42)
== END 2020-07-17 11:30 | DRG 93 ==
PROVIDERS: ADMIT Internal Medicine; ATTEND Internal Medicine
DX: G72.81 Critical illness myopathy (principal); B94.8 Sequelae of other specified infectious and parasitic diseases; G40.909 Epilepsy, unspecified, not intractable, without status epilepticus; R15.9 Full incontinence of feces; R32 Unspecified urinary incontinence; I25.10 Atherosclerotic heart disease of native coronary artery without angina pectoris; I10 Essential (primary) hypertension; E78.00 Pure hypercholesterolemia, unspecified; F03.90 Unspecified dementia, unspecified severity, without behavioral disturbance, psychotic disturbance, mood disturbance, and anxiety; K21.9 Gastro-esophageal reflux disease without esophagitis; M19.91 Primary osteoarthritis, unspecified site; D64.9 Anemia, unspecified; H54.3 Unqualified visual loss, both eyes; F31.9 Bipolar disorder, unspecified; Z87.891 Personal history of nicotine dependence; Z79.82 Long term (current) use of aspirin; Z79.52 Long term (current) use of systemic steroids; Z88.0 Allergy status to penicillin; Z91.040 Latex allergy status; Z82.49 Family history of ischemic heart disease and other diseases of the circulatory system; Z87.820 Personal history of traumatic brain injury
CPT/HCPCS: 36415; 80053; 85007; 85025; 85027; 94640; 94760

== ENCOUNTER 2020-07-18 14:08 | Observation (INO) | payer MEDICARE, BC, MEDICAID ==
[~2020-07-18] VITALS: Ht 162.6 cm; Wt 85.8 kg
[~2020-07-18 14:08] MED LIST changes: +ALBU18HF2 IH; +BENZ100C18 PO; -FOLI1TAB24 PO; +FOLI1TAB33 PO; +MICO90PO TOP; +NYST15CR TP; +ZINC28PA TOP
[2020-07-18] MEDS ORDERED: HYDROcodone/APAP 5 MG/325 MG (LORTAB) TAB PO ONE (14:15)
--- NOTE | 2020-07-18 14:29 | ED Fall/Injury ---
General Chief Complaint: Trauma-Non Activation Stated Complaint: FELL Nursing Triage Note: TO ED PER [facility] WAS FOUND ON FLOOR. PAIN IN R WRIST SWELLING ABOVE R EYE, BY STAFF. WAS DISCHARGE FROM HOSPIAL YESTERDAY HAS BEEN POS VIDYA IS OUT OF HER ISOLATION PEROID Source: patient Exam Limitations: no limitations History of Present Illness Date Seen by Provider: Jul 18, 2020 Time Seen by Provider: 14:08 Initial Comments Patient presents ER by EMS from the halfway where she had recently returned home from the hospital with chief complaint she had an unwitnessed fall. Patient states she fell onto her right side and staff says it may have been 25 minutes since the last time they saw her. She is having pain on the right side of her head above her eyebrow as well as her right wrist elbow and shoulder. She is not on a blood thinner. She does have a history of traumatic brain injury and sees a neurologist. She is not having any nausea. She has not had anything for pain. She denies loss of consciousness. She denies dysuria. She was recently diagnosed with COVID-19 however she has not been having symptoms for several days and is outside of the quarantine window. EMS reports she was alert and oriented x4 on their arrival. Allergies and Home Medications Allergies Coded Allergies: Penicillins (Verified Allergy, Mild, 07/22/13) latex (Verified Allergy, Mild, 07/22/13) Home Medications Acetaminophen 325 Mg Capsule, 650 MG PO Q6H PRN for PAIN-MILD (1-4), (Reported) Albuterol Sulfate 18 Gm Hfa.aer.ad, 0 GM IH Q2HR PRN for SOA Prescribed by: DADA SANDOVAL on 07/17/20 0555 Ascorbic Acid 1,000 Mg Tablet, 1,000 MG PO DAILY, (Reported) Aspirin 81 Mg Tablet.dr, 81 MG PO DAILY, (Reported) Benzonatate 100 Mg Capsule, 100 MG PO TID PRN for COUGH Prescribed by: DADA SANDOVAL on 07/17/20 0555 Cephalexin 500 Mg Tablet, 500 MG PO BID Prescribed by: MACY GLYNN on 07/18/20 1542 Clobetasol Propionate 118 Ml Shampoo, 1 APPLIC TOP Q72H, (Reported) Clobetasol Propionate 50 Ml Solution, 1 APPLIC TP BID, (Reported) APPLY TO THE SCALP Diphenhydramine HCl 25 Mg Capsule, 50 MG PO Q6H PRN for ABX REACTION, (Reported) Divalproex Sodium 500 Mg Tab.er.24h, 1,000 MG PO BID, (Reported) TAKES 2 (500MG) TABS Duloxetine HCl 60 Mg Capsule.dr, 60 MG PO DAILY, (Reported) Furosemide 80 Mg Tablet, 80 MG PO DAILY, (Reported) Lactulose 10 Gm/15 Ml Solution, 30 ML PO DAILY PRN for CONSTIPATION-3RD LINE, (Reported) Levetiracetam 1,000 Mg Tablet, 1,000 MG PO BID, (Reported) Melatonin 3 Mg Tablet, 3 MG PO HS, (Reported) Meloxicam 15 Mg Tablet, 15 MG PO DAILY, (Reported) Methotrexate Sodium 2.5 Mg Tablet, 10 MG PO MON, (Reported) TAKES 4 (2.5MG) TABS Miconazole Nitrate 90 Gm Powder, 0 GM TOP BID Prescribed by: DADA SANDOVAL on 07/17/20 0555 Nystatin 15 Gm Cream..g., 0 GM TP BID Prescribed by: DADA SANDOVAL on 07/17/20 0555 Ofloxacin 5 Ml Drops, 2 DROPS OP Q6H Prescribed by: MACY GLYNN on 07/18/20 1542 Oxybutynin Chloride 15 Mg Tab.er.24, 15 MG PO HS, (Reported) Pantoprazole Sodium 40 Mg Tablet.dr, 40 MG PO DAILY, (Reported) Polyethylene Glycol 3350 17 Gm Powd.pack, 17 GM PO DAILY PRN for CONSTIPATION- 2ND LINE, (Reported) Pramipexole Di-HCl 0.5 Mg Tablet, 0.5 MG PO TID, (Reported) Prednisolone Acetate 5 Ml Drops.susp, 1 DROP OU Q48H, (Reported) Quetiapine Fumarate 50 Mg Tablet, 50 MG PO BID, (Reported) TAKES 50MG DAILY AND 150MG (100MG + 50MG) AT BEDTIME Quetiapine Fumarate 100 Mg Tablet, 100 MG PO HS, (Reported) TAKES A 100MG +50MG TO EQUAL 150MG Topiramate 50 Mg Tablet, 50 MG PO BID, (Reported) Vitamin E (Dl,Tocopheryl Acet) 400 Unit Capsule, 400 UNIT PO DAILY, (Reported) Zinc Oxide 28 Gm Oint, 0 GM TOP NEEDED PRN for DIAPER CHANGE Prescribed by: DADA SANDOVAL on 07/17/20 0555 Patient Home Medication List Home Medication List Reviewed: Yes Review of Systems Review of Systems Constitutional: No chills, No diaphoresis Eyes: Denies Blindness, Denies Blurred Vision Ears, Nose, Mouth, Throat: denies ear pain, denies mouth pain Respiratory: No cough, No short of breath Cardiovascular: No chest pain, No palpitations, No syncope Gastrointestinal: No abdominal pain, No constipation, No diarrhea, No nausea Genitourinary: No discharge, No dysuria Musculoskeletal: No back pain; joint pain Skin: No pruritus, No rash Psychiatric/Neurological: Other (Small skin tear/abrasion on right elbow) All Other Systems Reviewed Negative Unless Noted: Yes Past Dcnxmkt-Xovldg-Tptugh Hx Patient Social History Alcohol Use: Denies Use Smoking Status: Former Smoker Type Used: Cigarettes Former Smoker, Quit: Jul 05, 2013 2nd Hand Smoke Exposure: Yes Recent Infectious Disease Expo: No Recent Hopitalizations: No Immunizations Up To Date Tetanus Booster (TDap): Unknown PED Vaccines UTD: No Date of Pneumonia Vaccine: Apr 07, 2018 Date of Influenza Vaccine: Feb 10, 2020 Seasonal Allergies Seasonal Allergies: No Past Medical History Surgeries: Yes Gallbladder, Lumpectomy Respiratory: Yes (BRONCHITIS) Chronic Bronchitis Currently Using CPAP: No Cardiac: Yes Chronic Edema/Swelling, Coronary Artery Disease, High Cholesterol, Hypertension, Rheumatic Fever Neurological: Yes (ENCEPHALITIS, restless leg syndrome) Concussion, Dementia, Seizure Disorder, Traumatic Brain Injury, Vertigo Reproductive Disorders: No Female Reproductive Disorders: Denies Sexually Transmitted Disease: No HIV/AIDS: No Genitourinary: Yes (CHRONIC RENAL INSUFFICIENCY; BLADDER CONTROL ISSUES?) Gastrointestinal: Yes ("STOMACH DISCOMFORT"--POST-CHOLECYSTECTOMY SYNDROME) Gastroesophageal Reflux, Chronic Constipation, Chronic Diarrhea, Gall Bladder Disease, Irritable Bowel Musculoskeletal: Yes Arthritis Endocrine: No HEENT: Yes (READING GLASSES) Loss of Vision: Bilateral Hearing Impairment: Denies Cancer: No Psychosocial: Yes Sleep Difficulties, Bipolar Integumentary: Yes Psoriasis Blood Disorders: No Adverse Reaction/Blood Tranf: No Family Medical History Cancer 03 FATHER (PANCREATIC CANCER) 09 BROTHER ( AT AGE 10) Family history: Cardiovascular disease 03 MOTHER Family history: Diabetes mellitus 03 MOTHER Heart disease 03 MOTHER No Pertinent Family Hx Physical Exam Vital Signs Vital Signs - First Documented 07/18/20 14:08 Temp 35.2 Pulse 79 Resp 18 B/P (MAP) 109/78 (88) Pulse Ox 98 O2 Delivery Room Air Capillary Refill : Less Than 3 Seconds Height, Weight, BMI Height: 5'4.00" Weight: 166lbs. 0.0oz. 75.873233sc; 37.00 BMI Method:Stated General Appearance: WD/WN, no apparent distress HEENT: PERRL/EOMI (3 mm bilateral reactive), normal ENT inspection, TMs normal (Negative for hemotympanums or metzger sign), pharynx normal, other (Left eye has scleral injection and matted closed) Neck: non-tender, full range of motion, normal inspection, other (C-collar precautions in place.) Cardiovascular: normal peripheral pulses, regular rate, rhythm Respiratory: lungs clear, normal breath sounds, no respiratory distress, no accessory muscle use Peripheral Pulses: 2+ Radial Pulses (R), 2+ Radial Pulses (L) Gastrointestinal: normal bowel sounds, non tender, soft Extremities: normal range of motion, normal capillary refill, other (Tenderness to palpation over all joints but especially the right shoulder, elbow and wrist with difficulty extending the joints due to pain. Mild tenderness over the right hip) Neurologic/Psychiatric: alert, normal mood/affect, oriented x 3 Skin: normal color, warm/dry, other (Mild ecchymoses and 3 cm round raised hematoma over the right eyebrow) [place] Coma Score Best Eye Response: (4) Open Spontaneously Best Verbal Response: (5) Oriented Best Motor Response: (6) Obeys Commands Debbie Total: 15 Procedures/Interventions Splinting and Joint Reduction : Location: Right forearm Pre-Proc Neuro Vasc Exam: normal Post-Proc Neuro Vasc Exam: normal, unchanged from pre-exam Progress Arm was wrapped with fluffs and using 4 inch fiberglass splinting material we made a sugar tong splint in the usual fashion. 4 inch elastic bandages were wrapped around the forearm and she had good capillary refill, sensation and movement of her fingers after splinting. A sling was applied. Progress/Results/Core Measures Results/Orders Lab Results Laboratory Tests Test 07/18/20 15:00 07/18/20 16:37 Range/Units Urine Color YELLOW Urine Clarity CLEAR Urine pH 5.5 5-9 Urine Specific [place] 1.015 L 1.016-1.022 Urine Protein NEGATIVE NEGATIVE Urine Glucose (UA) NEGATIVE NEGATIVE Urine Ketones NEGATIVE NEGATIVE Urine Nitrite NEGATIVE NEGATIVE Urine Bilirubin NEGATIVE NEGATIVE Urine Urobilinogen 0.2 < = 1.0 MG/DL Urine Leukocyte Esterase TRACE H NEGATIVE Urine RBC (Auto) NEGATIVE NEGATIVE Urine RBC NONE /HPF Urine WBC 5-10 H /HPF Urine Squamous Epithelial Cells 0-2 /HPF Urine Crystals NONE /LPF Urine Bacteria MODERATE H /HPF Urine Casts PRESENT /LPF Urine Hyaline Casts 0-2 H /LPF Urine Mucus NEGATIVE /LPF Urine Culture Indicated YES White Blood Count 11.1 H 4.3-11.0 10^3/uL Red Blood Count 3.68 L 3.80-5.11 10^6/uL Hemoglobin 11.9 11.5-16.0 g/dL Hematocrit 37 35-52 % Mean Corpuscular Volume 101 H 80-99 fL Mean Corpuscular Hemoglobin 32 25-34 pg Mean Corpuscular Hemoglobin Concent 32 32-36 g/dL Red Cell Distribution Width 16.1 H 10.0-14.5 % Platelet Count 193 130-400 10^3/uL Mean Platelet Volume 10.4 9.0-12.2 fL Immature Granulocyte % (Auto) 17 % Neutrophils (%) (Auto) 36 L 42-75 % Lymphocytes (%) (Auto) 20 12-44 % Monocytes (%) (Auto) 27 H 0-12 % Eosinophils (%) (Auto) 1 0-10 % Basophils (%) (Auto) 0 0-10 % Neutrophils # (Auto) 3.9 1.8-7.8 10^3/uL Lymphocytes # (Auto) 2.2 1.0-4.0 10^3/uL Monocytes # (Auto) 3.0 H 0.0-1.0 10^3/uL Eosinophils # (Auto) 0.1 0.0-0.3 10^3/uL Basophils # (Auto) 0.0 0.0-0.1 10^3/uL Immature Granulocyte # (Auto) 1.8 H 0.0-0.1 10^3/uL Sodium Level 139 135-145 MMOL/L Potassium Level 3.5 L 3.6-5.0 MMOL/L Chloride Level 106 98-107 MMOL/L Carbon Dioxide Level 23 21-32 MMOL/L Anion Gap 10 5-14 MMOL/L Blood Urea Nitrogen 12 7-18 MG/DL Creatinine 0.97 0.60-1.30 MG/DL Estimat Glomerular Filtration Rate 57 BUN/Creatinine Ratio 12 Glucose Level 80 70-105 MG/DL Calcium Level 8.7 8.5-10.1 MG/DL Corrected Calcium 9.5 8.5-10.1 MG/DL Total Bilirubin 0.4 0.1-1.0 MG/DL Aspartate Amino Transf (AST/SGOT) 24 5-34 U/L Alanine Aminotransferase (ALT/SGPT) 9 0-55 U/L Alkaline Phosphatase 145 H 40-136 U/L C-Reactive Protein High Sensitivity 6.07 H 0.00-0.50 MG/DL Total Protein 6.8 6.4-8.2 GM/DL Albumin 3.0 L 3.2-4.5 GM/DL My Orders Orders - MACY GLYNN Chest 1 View, Ap/Pa Only (07/18/20 14:13) Shoulder, Right, 3 Views (07/18/20 14:13) Elbow, Right, 3 Views (07/18/20 14:13) Wrist, Right, 3 Views Or More (07/18/20 14:13) Hip, Right, 2 Views (07/18/20 14:13) Hydrocodone/Apap 5/325 Tablet (Lortab 5 (07/18/20 14:15) Ct Head/Cervical Spine Wo (07/18/20 14:53) Ua Culture If Indicated (07/18/20 15:04) Urine Culture (07/18/20 15:00) Ceftriaxone For Im Use (Rocephin For Im (07/18/20 15:26) Lidocaine 1% Inj 20 Ml (Xylocaine 1% Inj (07/18/20 15:30) Ed Iv/Invasive Line Start (07/18/20 16:11) Ns Iv 500 Ml (Sodium Chloride 0.9%) (07/18/20 16:15) Cbc With Automated Diff (07/18/20 16:11) Comprehensive Metabolic Panel (07/18/20 16:11) Hs C Reactive Protein (07/18/20 16:11) Manual Differential (07/18/20 16:37) Medications Given in ED Current Medications Medications Dose Ordered Sig/Cory Route Start Time Stop Time Status Last Admin Dose Admin Acetaminophen/ Hydrocodone Bitart 1 tab ONCE ONCE PO 07/18/20 14:15 07/18/20 14:16 DC 07/18/20 14:33 1 TAB Lidocaine HCl 2.1 ml ONCE ONCE INJ 07/18/20 15:30 07/18/20 15:31 DC 07/18/20 16:07 2.1 ML Sodium Chloride 500 ml @ 0 mls/hr Q0M ONCE IV 07/18/20 16:15 07/18/20 16:16 DC 07/18/20 17:09 500 MLS/HR Vital Signs/I&O 07/18/20 14:08 Temp 35.2 Pulse 79 Resp 18 B/P (MAP) 109/78 (88) Pulse Ox 98 O2 Delivery Room Air Blood Pressure Mean: 88 Progress Progress Note #1: Time: 15:33 Progress Note Urinalysis demonstrates UTI. Plan to give her a shot of Rocephin put her on Keflex. Her stated allergy to penicillin is it causes a rash. We will put her on some ofloxacin eyedrops. Progress Note #2: Time: 15:50 Progress Note Discussed the case with the patient's brother and power of assistant city attorney. He is concerned whether the patient would be able to go back to the assisted living home and is going to call and speak to the director. Progress Note #3: Time: 16:25 Progress Note Discussed the case with the monorail car operator at the assisted living home where she came from [facility]. She feels the patient is delirium is making it difficult for her to thrive at the assisted living level. Were going to see if she could maybe pursue correction before going back to the assisted living home. Progress Note #4: Time: 17:29 Progress Note Discussed the case with Addy the brother and he is appreciative of the plan to get her into the hospital and work on placement either back into rehab of some sort or alternatively a halfway. He says if we have to put her in a halfway then he would prefer [facility]. I told him to expect to hear from social problems specialist sometime tomorrow as they work on this. Patient is comfortable in her sling and not requiring any further pain medicine at this time. Diagnostic Imaging Diagonstic Imaging: Xray Plain Films/CT/US/NM/MRI: chest [facility] [place] [place] NAME: APPLE VILLELA REC#: [id number] PT STATUS: REG ER : 1950 PHYSICIAN: MACY GLYNN MD ADMIT DATE: 07/18/20/ER Signed Date of Exam:07/18/20 CHEST 1 VIEW, AP/PA ONLY EXAMINATION: Supine chest at 2:50 p.m. INDICATION: Dyspnea. FINDINGS: The borderline cardiomegaly noted on the prior exam of 07/02/2020 is again evident and not significantly changed. However the central pulmonary vascularity does not seem as prominent as on the prior exam and both lungs appear better aerated. There is still a small amount of residual atelectasis/infiltrate involving the lungs, particularly the right upper lobe. There is no sign of a pleural effusion. The mediastinum is not widened. The osseous structures are intact. IMPRESSION: The appearance of the chest has improved as there is less pulmonary congestion than noted on the prior exam. Both lungs are also better aerated. A follow-up study would be recommended for continued evaluation. Dictated by: Dictated on workstation # [id number] Dict: 07/18/20 1501 Trans: 07/18/20 1545 [facility] [id number] Interpreted by: LOU PERSAUD MD Electronically signed by: LOU PERSAUD MD 07/18/20 1545 Reviewed: Reviewed by Ms Diagonstic Imaging: Xray Plain Films/CT/US/NM/MRI: other (Right shoulder) Comments NAME: APPLE VILLELA [facility] REC#: [id number] PT STATUS: REG ER : 1950 PHYSICIAN: MACY GLYNN MD ADMIT DATE: 07/18/20/ER Signed Date of Exam:07/18/20 SHOULDER, RIGHT, 3 VIEWS INDICATION: Shoulder pain COMPARISON: December 19, 2019. TECHNIQUE: Three radiographs of the right shoulder dated July 18, 2020. FINDINGS: Lucencies and sclerosis are noted associated with the greater tuberosity with associated mild callus formation and periosteal reaction. Mild degenerative changes of the acromioclavicular joint. The acromioclavicular joint appears minimally more widened than the prior examinations. No new acute osseous abnormality. No dislocation. Subacromial space is well-maintained. No suspicious radiopaque foreign body. IMPRESSION: Chronic partially healed greater tuberosity fracture with interval healing when compared to December 2019. Minimal widening of the acromioclavicular joint when compared to prior examinations. This may relate to a low-grade AC joint injury without significant displacement. Mild scattered degenerative changes. Dictated by: Dictated on workstation # [id number] Dict: 07/18/20 1548 Trans: 07/18/206 [facility] [id number] Interpreted by: CRISTAL GERMAIN MD Electronically signed by: CRISTAL GERMAIN MD 07/18/201615 Reviewed: Reviewed by Me Diagonstic Imaging: Xray Plain Films/CT/US/NM/MRI: elbow (Right) Comments [facility] [place] NAME: APPLE VILLELA [facility] REC#: [id number] PT STATUS: REG ER : 1950 PHYSICIAN: MACY GLYNN MD ADMIT DATE: 07/18/20/ER Draft Date of Exam:07/18/20 ELBOW, RIGHT, 3 VIEWS EXAM: Right elbow at 3:41 INDICATION: Elbow pain Three views were obtained. COMPARISON: There are no prior studies available for comparison. There is no fracture, dislocation or acute bony abnormality evident. The elbow joint is fairly well-maintained. The posterior fat-pad is not elevated. The soft tissues are unremarkable. IMPRESSION: There is no evidence for an acute bony abnormality. Dictated on workstation # [id number] Dict: 07/18/20 1552 Trans: 07/18/20 1554 [facility] [id number] Interpreted by: LOU PERSAUD MD Electronically signed by: Reviewed: Reviewed by Me Diagonstic Imaging: Xray Plain Films/CT/US/NM/MRI: forearm (Right wrist) Comments [facility] [place] [place] NAME: APPLE VILLELA [facility] REC#: [id number] PT STATUS: REG ER : 1950 PHYSICIAN: MACY GLYNN MD ADMIT DATE: 07/18/20/ER Draft Date of Exam:07/18/20 WRIST, RIGHT, 3 VIEWS OR MORE INDICATION: Injury. EXAMINATION: Right wrist at 3:39 p.m. Three views were obtained. COMPARISON: There is no prior study available for comparison. FINDINGS: There is an impacted slightly comminuted and slightly displaced fracture of the distal radial metaphysis. The lateral view does show that there is mild volar angulation of the fracture fragments at the fracture site. There is also an avulsion fracture of the ulnar styloid. No other fracture or acute bony abnormality is identified. There is soft tissue edema about the wrist. IMPRESSION: There is a slightly comminuted, slightly displaced, mildly impacted fracture of the distal radial metaphysis. There is also an avulsion fracture of the ulnar styloid. Dictated on workstation # [id number] Dict: 07/18/20 1554 Trans: 07/18/20 1559 [facility] [id number] Interpreted by: LOU PERSAUD MD Electronically signed by: Reviewed: Reviewed by Ms Diagonstic Imaging: CT (Without IV contrast) Plain Films/CT/US/NM/MRI: c-spine, head Comments [facility] [place] NAME: APPLE VILLELA [facility] REC#: [id number] PT STATUS: REG ER : 1950 PHYSICIAN: MACY GLYNN MD ADMIT DATE: 07/18/20/ER Signed Date of Exam:07/18/20 CT HEAD/CERVICAL SPINE WO PROCEDURE: CT head and CT cervical spine without contrast. TECHNIQUE: Multiple contiguous axial images were obtained through the brain and cervical spine without the use of intravenous contrast. Sagittal and coronal reformations through the cervical spine were then performed. Auto Exposure Controls were utilized during the CT exam to meet ALARA standards for radiation dose reduction. INDICATION: Trauma. COMPARISON: 11/10/2019. FINDINGS: Mild atrophy. No intracranial hemorrhage. No intracranial mass, mass effect, midline shift, herniation, hydrocephalus or extra-axial fluid collection. Periventricular and subcortical white matter hypodensities are again identified, most consistent with mild chronic small vessel white matter ischemic disease, appearing similar to the prior examination. No definite CT evidence of an acute ischemic infarction. Right periorbital soft tissue swelling and hematoma. The bilateral ocular lenses are absent. Mild scattered vascular calcifications. The visualized paranasal sinuses are clear. The calvarium is intact. Straightening of the normal cervical lordosis without significant anterolisthesis or retrolisthesis. Alignment of the atlantooccipital joint is well maintained. Besides mild endplate degenerative changes, vertebral body heights are otherwise well-maintained. Severe disc space height loss at C3/C4. Additional mild multilevel disc space height loss. No acute fracture or dislocation. No destructive osseous process. Scattered facet joint degenerative changes are present. Mild bilateral neuroforaminal stenosis of C3/C4. Moderate left neuroforaminal stenosis at C5/C6. Patchy reticular and groundglass opacities are identified within the lungs, bilaterally. No severe osseous central canal stenosis. Mild vascular calcifications. IMPRESSION: 1. No acute intracranial abnormality with mild atrophy and mild background chronic small vessel white matter ischemic disease. 2. No acute osseous abnormality within the cervical spine with mild to moderate multilevel degenerative changes, as described above. 3. Bilateral patchy reticular and groundglass opacities within the upper lungs. Although this could simply relate to hypoventilation and low lung volumes, infectious etiology should be considered. Pulmonary/interstitial edema would be an additional consideration. Dictated by: Dictated on workstation # [id number] Dict: 07/18/20 1557 Trans: 07/18/20 161 [facility] [id number] Interpreted by: CRISTAL GERMAIN MD Electronically signed by: CRISTAL GERMAIN MD 07/18/201614 Reviewed: Reviewed by Ms Diagonstic Imaging: Xray Plain Films/CT/US/NM/MRI: hip (r) Comments [facility] [place] NAME: APPLE VILLELA [facility] REC#: [id number] PT STATUS: REG ER : 1950 PHYSICIAN: MACY GLYNN MD ADMIT DATE: 07/18/20/ER Draft Date of Exam:07/18/20 HIP, RIGHT, 2 VIEWS EXAM: Right hip at 3:34 PM INDICATION: Fell, hip pain. AP and lateral views were obtained. There is no fracture, dislocation or acute bony abnormality evident. The hip joint is fairly well-maintained and appears similar to the prior exam of 11/17/2018. The soft tissues are unremarkable. IMPRESSION: There is no evidence for an acute bony abnormality. Dictated on workstation # [id number] Dict: 07/18/20 1553 Trans: 07/18/20 1555 [facility] [phone] Interpreted by: LOU PERSAUD MD Electronically signed by: Reviewed: Reviewed by Me Departure Communication (Admissions) Time/Spoke to Admitting Phy: 16:30 Discussed the case and need for placement. The patient did inpatient rehab already. Dr. Adames agrees to observe the patient and have social problems specialist work on inpatient rehab etc. Impression Primary Impression: Fall Qualified Codes: W19.XXXA - Unspecified fall, initial encounter Additional Impressions: UTI (urinary tract infection) Qualified Codes: N30.00 - Acute cystitis without hematuria Conjunctivitis Qualified Codes: H10.32 - Unspecified acute conjunctivitis, left eye Hematoma Acromioclavicular joint separation Qualified Codes: S43.101A - Unspecified dislocation of right acromioclavicular joint, initial encounter Right wrist fracture Qualified Codes: S62.101A - Fracture of unspecified carpal bone, right wrist, initial encounter for closed fracture Disposition: ADMITTED INPATIENT Condition: Stable Admissions Decision to Admit Reason: Admit from ER (General) Decision to Admit/Date: Jul 18, 2020 Time/Decision to Admit Time: 16:00 Departure-Patient Inst. Referrals: ADDY LING MD (PCP/Family) Primary Care Physician Scripts Cephalexin (Cephalexin) 500 Mg Tablet 500 MG PO BID for 7 Days, #14 TAB 0 Refills Prov: MACY GLYNN 07/18/20 Ofloxacin (Ofloxacin) 5 Ml Drops 2 DROPS OP Q6H for 7 Days, #1 EA 0 Refills Prov: MACY GLYNN 07/18/20 MACY GLYNN Jul 18, 2020 14:29
--- NOTE | 2020-07-18 14:58 | NUR ---
BROUGHT BACK FROM [facility] TO BE PLACED ON [facility].
--- NOTE | 2020-07-18 15:06 | Diagnostic Imaging Report ---
EXAMINATION: Supine chest at 2:50 p.m. INDICATION: Dyspnea. FINDINGS: The borderline cardiomegaly noted on the prior exam of 07/02/2020 is again evident and not significantly changed. However the central pulmonary vascularity does not seem as prominent as on the prior exam and both lungs appear better aerated. There is still a small amount of residual atelectasis/infiltrate involving the lungs, particularly the right upper lobe. There is no sign of a pleural effusion. The mediastinum is not widened. The osseous structures are intact. IMPRESSION: The appearance of the chest has improved as there is less pulmonary congestion than noted on the prior exam. Both lungs are also better aerated. A follow-up study would be recommended for continued evaluation. Dictated by: Dictated on workstation # [id number]
[2020-07-18 15:12] LABS: BILIRUBIN,URINE NEGATIVE (NEGATIVE); CLARITY,URINE CLEAR; COLOR,URINE YELLOW; GLUCOSE, URINE (UA) NEGATIVE (NEGATIVE); KETONES,URINE NEGATIVE (NEGATIVE); LEUKOCYTE ESTERASE ,URINE TRACE (NEGATIVE); NITRITE,URINE NEGATIVE (NEGATIVE); PH,URINE 5.5 (5-9); PROTEIN,URINE NEGATIVE (NEGATIVE)
[2020-07-18 15:22] LABS: BACTERIA,URINE MODERATE /HPF; HYALINE CASTS, URINE 0-2 /LPF; SQUAMOUS EPITHELIAL CELL,UR 0-2 /HPF
--- NOTE | 2020-07-18 15:24 | NUR ---
BACK TO X RAY.
[2020-07-18] MEDS ORDERED: cefTRIAXone 1,000 MG/2.86 ml vial (IM ONLY) IM STA (15:26)
[2020-07-18] MEDS ORDERED: LIDOCAINE 1% INJ 20 ML 20 ML VIAL INJ ONE (15:30)
--- NOTE | 2020-07-18 15:37 | NUR ---
POA CALLED TO CHECK ON PATIENT CALL GIVEN TO DR GLYNN.
[2020-07-18] MEDS ORDERED: CEPH500T PO (15:42)
[2020-07-18] MEDS ORDERED: OFLO5DRO3 OP (15:42)
--- NOTE | 2020-07-18 15:54 | Diagnostic Imaging Report ---
EXAM: Right elbow at 3:41 INDICATION: Elbow pain Three views were obtained. COMPARISON: There are no prior studies available for comparison. There is no fracture, dislocation or acute bony abnormality evident. The elbow joint is fairly well-maintained. The posterior fat-pad is not elevated. The soft tissues are unremarkable. IMPRESSION: There is no evidence for an acute bony abnormality. Dictated by: Dictated on workstation # [id number]
--- NOTE | 2020-07-18 15:56 | Diagnostic Imaging Report ---
INDICATION: Shoulder pain COMPARISON: December 19, 2019. TECHNIQUE: Three radiographs of the right shoulder dated July 18, 2020. FINDINGS: Lucencies and sclerosis are noted associated with the greater tuberosity with associated mild callus formation and periosteal reaction. Mild degenerative changes of the acromioclavicular joint. The acromioclavicular joint appears minimally more widened than the prior examinations. No new acute osseous abnormality. No dislocation. Subacromial space is well-maintained. No suspicious radiopaque foreign body. IMPRESSION: Chronic partially healed greater tuberosity fracture with interval healing when compared to December 2019. Minimal widening of the acromioclavicular joint when compared to prior examinations. This may relate to a low-grade AC joint injury without significant displacement. Mild scattered degenerative changes. Dictated by: Dictated on workstation # [id number]
--- NOTE | 2020-07-18 15:56 | Diagnostic Imaging Report ---
EXAM: Right hip at 3:34 PM INDICATION: Fell, hip pain. AP and lateral views were obtained. There is no fracture, dislocation or acute bony abnormality evident. The hip joint is fairly well-maintained and appears similar to the prior exam of 11/17/2018. The soft tissues are unremarkable. IMPRESSION: There is no evidence for an acute bony abnormality. Dictated by: Dictated on workstation # [id number]
--- NOTE | 2020-07-18 15:58 | NUR ---
[facility] STAFF CALLED DO NOT FEEL LIKE THEY CAN ACCEPT HER BACK BECAUSE OF CONFUSION
--- NOTE | 2020-07-18 16:00 | Diagnostic Imaging Report ---
INDICATION: Injury. EXAMINATION: Right wrist at 3:39 p.m. Three views were obtained. COMPARISON: There is no prior study available for comparison. FINDINGS: There is a mildly impacted slightly comminuted and slightly displaced fracture of the distal radial metaphysis. The lateral view does show that there is mild volar angulation of the fracture fragments at the fracture site. There is also an avulsion fracture of the ulnar styloid. No other fracture or acute bony abnormality is identified. There is soft tissue edema about the wrist. IMPRESSION: There is a slightly comminuted, slightly displaced, mildly impacted fracture of the distal radial metaphysis. There is also an avulsion fracture of the ulnar styloid. Dictated by: Dictated on workstation # [id number]
--- NOTE | 2020-07-18 16:10 | Diagnostic Imaging Report ---
PROCEDURE: CT head and CT cervical spine without contrast. TECHNIQUE: Multiple contiguous axial images were obtained through the brain and cervical spine without the use of intravenous contrast. Sagittal and coronal reformations through the cervical spine were then performed. Auto Exposure Controls were utilized during the CT exam to meet ALARA standards for radiation dose reduction. INDICATION: Trauma. COMPARISON: 11/10/2019. FINDINGS: Mild atrophy. No intracranial hemorrhage. No intracranial mass, mass effect, midline shift, herniation, hydrocephalus or extra-axial fluid collection. Periventricular and subcortical white matter hypodensities are again identified, most consistent with mild chronic small vessel white matter ischemic disease, appearing similar to the prior examination. No definite CT evidence of an acute ischemic infarction. Right periorbital soft tissue swelling and hematoma. The bilateral ocular lenses are absent. Mild scattered vascular calcifications. The visualized paranasal sinuses are clear. The calvarium is intact. Straightening of the normal cervical lordosis without significant anterolisthesis or retrolisthesis. Alignment of the atlantooccipital joint is well maintained. Besides mild endplate degenerative changes, vertebral body heights are otherwise well-maintained. Severe disc space height loss at C3/C4. Additional mild multilevel disc space height loss. No acute fracture or dislocation. No destructive osseous process. Scattered facet joint degenerative changes are present. Mild bilateral neuroforaminal stenosis of C3/C4. Moderate left neuroforaminal stenosis at C5/C6. Patchy reticular and groundglass opacities are identified within the lungs, bilaterally. No severe osseous central canal stenosis. Mild vascular calcifications. IMPRESSION: 1. No acute intracranial abnormality with mild atrophy and mild background chronic small vessel white matter ischemic disease. 2. No acute osseous abnormality within the cervical spine with mild to moderate multilevel degenerative changes, as described above. 3. Bilateral patchy reticular and groundglass opacities within the upper lungs. Although this could simply relate to hypoventilation and low lung volumes, infectious etiology should be considered. Pulmonary/interstitial edema would be an additional consideration. Dictated by: Dictated on workstation # [id number]
[2020-07-18] MEDS ORDERED: NS IV 500 ML 500 ML IV ONE (16:15)
--- NOTE | 2020-07-18 16:35 | NUR ---
X2 ATTEMPTS TO START IV P VALENZUELA BARGAIN TABLE CLERK. TO ROOM TO START IV
--- NOTE | 2020-07-18 16:49 | NUR ---
DR GLYNN TO ROOM TO PLACE SPLINT
[2020-07-18 16:56] LABS: BASOPHILS % (AUTO) 0 % (0-10); EOSINOPHILS # (AUTO) 0.1 10^3/uL (0.0-0.3); EOSINOPHILS % (AUTO) 1 % (0-10); HEMATOCRIT 37 % (35-52); HEMOGLOBIN 11.9 g/dL (11.5-16.0); LYMPHOCYTES # (AUTO) 2.2 10^3/uL (1.0-4.0); LYMPHOCYTES % (AUTO) 20 % (12-44); MEAN CORPUSCULAR HEMOGLOBIN 32 pg (25-34); MEAN CORPUSCULAR HGB CONC 32 g/dL (32-36); MEAN CORPUSCULAR VOLUME 101 fL (80-99); MEAN PLATELET VOLUME 10.4 fL (9.0-12.2); MONOCYTES % (AUTO) 27 % (0-12); NEUTROPHILS # (AUTO) 3.9 10^3/uL (1.8-7.8); NEUTROPHILS % (AUTO) 36 % (42-75); PLATELET COUNT 193 10^3/uL (130-400); WHITE BLOOD COUNT 11.1 10^3/uL (4.3-11.0)
[2020-07-18 17:03] LABS: POTASSIUM 3.5 MMOL/L (3.6-5.0)
[2020-07-18 17:04] LABS: CALCIUM 8.7 MG/DL (8.5-10.1)
[2020-07-18 17:06] LABS: TOTAL PROTEIN 6.8 GM/DL (6.4-8.2)
[2020-07-18 17:07] LABS: BILIRUBIN,TOTAL 0.4 MG/DL (0.1-1.0)
[2020-07-18 17:09] LABS: CREATININE SERUM 0.97 MG/DL (0.60-1.30)
--- NOTE | 2020-07-18 17:30 | NUR ---
DR GLYNN CALLED AND TALKED WITH BROTHER JOVON AND GAVE HIM UPDATE AND PLAN OF CARE.
--- NOTE | 2020-07-18 17:30 | NUR ---
APPLE VILLELA admitted to room 420-1, with an admitting diagnosis of UTI, DEBILITY, FALL, RT WRIST FX, on 07/18/20 from ED via [facility], accompanied by STAFF. APPLE VILLELA introduced to surroundings, call light, bed controls, phone, TV, temperature control, lights, meal times, smoking policy, visitor policy, side rail policy, bathrooms and showers. Patient Rights given to patient in the handbook. APPLE VILLELA verbalizes understanding that [facility] is not responsible for the loss or damage to any personal effects or valuables that are kept in the patients posession during their hospitalization. The following Patient Care Plans were discussed with the PT: Discharge Planning, PAIN, AND UTI. APPLE VILLELA verbalizes understanding of Interdisciplinary Patient Education. Patient and/or family were informed about the Rapid Response Team and its purpose.
[2020-07-18 17:42] LABS: BAND NEUTROPHILS 6 %; BASOPHILS % (MANUAL) 2 %; EOSINOPHILS % (MANUAL) 1 %; LYMPHOCYTES % (MANUAL) 20 %; METAMYELOCYTES % 8 %; MONOCYTES % (MANUAL) 15 %; MYELOCYTES % 8 %; NEUTROPHILS % (MANUAL) 40 %; RBC MORPH NORMAL
[2020-07-18] MEDS ORDERED: LACTATED RINGERS 1,000 ML IV ONE (17:45)
[2020-07-18 18:00] VITALS: BP 128/57
[2020-07-18] MEDS ORDERED: diphenhydrAMINE 25 MG TAB (BENADRYL) PO PRN (18:00)
[2020-07-18] MEDS ORDERED: LACTULOSE SYRUP 10GM/15ML (ENULOSE) 30ML UDC PO PRN (18:00)
[2020-07-18] MEDS ORDERED: BISACODYL 10 MG SUPP (DULCOLAX) PR PRN (18:00)
[2020-07-18] MEDS ORDERED: diphenhydrAMINE 50 MG/ML INJ (BENADRYL) IM PRN (18:00)
[2020-07-18] MEDS ORDERED: BENZONATATE 100 MG (TESSALON) CAPSULE PO PRN (18:00)
[2020-07-18] MEDS ORDERED: CALCIUM CARBONATE 500 MG (TUMS) TAB.CHEW PO PRN (18:00)
[2020-07-18] MEDS ORDERED: cefTRIAXone FOR IV USE 1,000 MG in WATER (STERILE) FOR INJECTION 10 ML IV SCH (18:00)
[2020-07-18] MEDS ORDERED: RT-ALBUTEROL INHALER HFA (VENTOLIN HFA) 18 GM IH PRN (18:00)
[2020-07-18] MEDS ORDERED: LOPERAMIDE 2 MG (IMODIUM) TABLET PO PRN (18:00)
[2020-07-18] MEDS ORDERED: FLEET ENEMA ADULT 1 EA BTL PR PRN (18:00)
[2020-07-18] MEDS ORDERED: MILK OF MAGNESIA 400 MG/5 ML 30 ML UDC PO PRN (18:00)
[2020-07-18] MEDS ORDERED: guaiFENesin/CODEINE (ROBITUSSIN AC) 10ML UDC PO PRN (18:00)
[2020-07-18] MEDS ORDERED: ENOXAPARIN 100 MG/1 ML (LOVENOX) SYR SC SCH (18:00)
[2020-07-18] MEDS ORDERED: ANTACID SUSP 30 ML UDC (MYLANTA) PO PRN (18:00)
[2020-07-18] MEDS ORDERED: ACETAMINOPHEN 500 MG TAB (TYLENOL) PO PRN (18:00)
[2020-07-18] MEDS ORDERED: ALPRAZolam 0.25 MG (XANAX) TAB PO PRN (18:00)
[2020-07-18] MEDS ORDERED: MELATONIN 3 MG TABLET PO PRN (18:00)
[2020-07-18] MEDS ORDERED: ONDANSETRON 4 MG (ZOFRAN) ORAL DISSOLVE TAB PO PRN (18:00)
[2020-07-18] MEDS ORDERED: ONDANSETRON 4 MG/2 ML (SDV) Z0FRAN IV PRN (18:00)
[2020-07-18] MEDS ORDERED: VANCOMYCIN INJECTION 0.1 MG in NS (IVPB) 250 ML IV SCH (18:00)
[2020-07-18] MEDS ORDERED: DOCUSATE SODIUM 100 MG (COLACE) CAP PO PRN (18:00)
--- NOTE | 2020-07-18 18:20 | NUR ---
CALLED [facility]. OBTAINED PASSWORD AND UPDATED ON POLICY FOR CALLING TO CHECK ON PT.
--- NOTE | 2020-07-18 18:26 | NUR ---
CR 0.97; CR CL < 60; WT 84.1 KG; VANCO 1750 MG IV BOLUS THEN 1250 MG IV Q24H; TROUGH AFTER 2ND DOSE
[2020-07-18] MEDS ORDERED: VANCOMYCIN 1,750 MG/NS 500 ML IVPB IV NR ×2 (18:30)
[2020-07-18] MEDS ORDERED: CATHETER FLUSH 10 ML SYR IV PRN (18:30)
[2020-07-18] MEDS ORDERED: HYDROcodone/APAP 7.5 MG/325 MG (LORTAB, LORCET PLUS) TABLET PO PRN (18:45)
[2020-07-18] MEDS: LACTATED RINGERS 1,000 ML IV SCH (19:03)
--- NOTE | 2020-07-18 19:06 | NUR ---
DR. SANDOVAL HERE TO SEE PT.
[2020-07-18 20:18] VITALS: BP 127/58
[2020-07-18] MEDS: ENOXAPARIN 80 MG/0.8 ML (LOVENOX) SYR SC SCH (20:31)
[2020-07-18] MEDS: MIRTAZAPINE 15 MG (REMERON) TAB PO SCH (20:31)
[2020-07-18] MEDS: OFLOXACIN 0.3% OPHTH SOLN 5 ML OS SCH (20:31)
[2020-07-18] MEDS: PRAMIPEXOLE 0.5 MG TAB (MIRAPEX) PO SCH (20:31)
[2020-07-18] MEDS: LEVETIRACETAM 1,000 MG (KEPPRA) TABLET PO SCH (20:32)
[2020-07-18] MEDS: MICONAZOLE 2% POWDER (DESENEX AF) 90 GM TOP SCH (20:32)
[2020-07-18] MEDS: toPIRamate 25 MG (TOPAMAX) TAB PO SCH (20:32)
[2020-07-18] MEDS: DIVALPROEX EXT RELEASE 500 MG (DEPAKOTE ER) TAB PO SCH (20:32)
[2020-07-18] MEDS: SENNA W/DOCUSATE (SENOKOT S) TABLET PO SCH (20:32)
[2020-07-18] MEDS: OXYBUTYNIN (DITROPAN) 5 MG TAB PO SCH (20:32)
[2020-07-18] MEDS: polyethylene glycoL POWDER 17 GM (MIRALAX) PACK PO SCH (20:32)
[2020-07-18] MEDS: NYSTATIN CREAM (MYCOSTATIN) 30 GM TUBE TP SCH (20:33)
[2020-07-18] MEDS: ZINC OXIDE 16% OINT (BUTT PASTE) 57 GM TUBE TOP PRN (20:37)
--- NOTE | 2020-07-18 20:57 | History & Physical-Hospitalist ---
History of Present Illness HPI/Chief Complaint CC: Right wrist fracture after fall HPI: This is a 70yoWF known to me from recent IRF stay who presents to the ER today after suffering a fall and subsequent right wrist fracture. She sustained multiple bruises to her arms and legs and torso. Home meds will be restarted. Needs NH placement. Hydrocodone will be given for the pain. Source: patient Exam Limitations: no limitations Date Seen 07/18/20 Time Seen by a Provider: 18:45 Attending Physician Lydia Montiel Rick D MD Referring Physician Date of Admission Jul 18, 2020 at 16:55 Home Medications & Allergies Home Medications Reviewed patient Home Medication Reconciliation performed by pharmacy medication reconciliations licensed chemical spray technician and/or nursing. Patients Allergies have been reviewed. Allergies Allergies Coded Allergies Penicillins (Verified Allergy, Mild, 07/18/20) latex (Verified Allergy, Mild, 07/18/20) Past Ounxors-Nqwbgz-Gfcuoy Hx Past Med/Social Hx: Reviewed Nursing Past Med/Soc Hx, Reviewed and Corrections made Patient Social History Marrital Status: single Employed/Student: retired Alcohol Use: Denies Use Recreational Drug Use: No Smoking Status: Former Smoker Former Smoker, Quit: Jul 05, 2013 Type Used: Cigarettes 2nd Hand Smoke Exposure: Yes Recent Foreign Travel: No Contact w/other who traveled: No Recent Hopitalizations: No Recent Infectious Disease Expo: No Immunizations Up To Date Tetanus Booster (TDap): Unknown Pediatric: No Date of Pneumonia Vaccine: Apr 07, 2018 Date of Influenza Vaccine: Feb 10, 2020 Seasonal Allergies Seasonal Allergies: No Past Medical History Surgeries: Gallbladder, Lumpectomy Respiratory: Chronic Bronchitis Currently Using CPAP: No Cardiac: Chronic Edema/Swelling, Coronary Artery Disease, High Cholesterol, Hypertension, Rheumatic Fever Neurological: Concussion, Dementia, Seizure Disorder, Traumatic Brain Injury, Vertigo Reproductive: No Sexually Transmitted Disease: No HIV/AIDS: No Female Reproductive Disorders: Denies Gastrointestinal: Gastroesophageal Reflux, Chronic Constipation, Chronic Diarrhea, Gall Bladder Disease, Irritable Bowel Musculoskeletal: Arthritis Loss of Vision: Bilateral Hearing Impairment: Denies Psychosocial: Sleep Difficulties, Bipolar Skin/Integumentary: Psoriasis History of Blood Disorders: No Adverse Reaction to Blood Mckoy: No Family History Cancer 03 FATHER (PANCREATIC CANCER) 09 BROTHER ( AT AGE 10) Family history: Cardiovascular disease 03 MOTHER Family history: Diabetes mellitus 03 MOTHER Heart disease 03 MOTHER No Pertinent Family Hx Review of Systems Constitutional: see HPI Musculoskeletal: joint pain Psychiatric/Neurological: Anxiety Physical Exam Physical Exam Vital Signs Vital Signs - First Documented 07/18/20 07/18/20 14:08 20:27 Temp 35.2 Pulse 79 Resp 18 B/P (MAP) 109/78 (88) Pulse Ox 98 O2 Delivery Room Air FiO2 21 Capillary Refill : Less Than 3 Seconds Height, Weight, BMI Height: 5'4.00" Weight: 166lbs. 0.0oz. [id number]; 31.80 BMI Method:Stated General Appearance: No Apparent Distress, Anxious, Chronically ill Eyes: Right Eye Normal Inspection, Right Eye PERRL HEENT: PERRL/EOMI, Normal ENT Inspection, Pharynx Normal, Moist Mucous Membran es Neck: Full Range of Motion, Normal Inspection, Non Tender Respiratory: Chest Non Tender, Lungs Clear, Normal Breath Sounds, No Accessory Muscle Use, No Respiratory Distress Cardiovascular: Regular Rate, Rhythm, No Edema, No Gallop, No JVD, No Murmur, Normal Peripheral Pulses Gastrointestinal: Normal Bowel Sounds, No Organomegaly, No Pulsatile Mass, Non Tender, Soft Back: Normal Inspection, No CVA Tenderness, No Vertebral Tenderness Extremity: Normal Capillary Refill, Normal Inspection, Normal Range of Motion (except right arm wrist in sling), Non Tender, No Calf Tenderness, No Pedal Edema Neurologic/Psychiatric: Alert, Oriented x3, No Motor/Sensory Deficits, Normal Mood/Affect, Disoriented Skin: Normal Color, Warm/Dry, Ecchymosis (extremities and torso), Rash (left leg greater than right) Lymphatic: No Adenopathy Results Results/Procedures Labs Laboratory Tests 07/18/20 16:37 07/19/20 05:00 Patient resulted labs reviewed. 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
[2020-07-18] MEDS ORDERED: CATHETER FLUSH 10 ML SYR IV SCH (22:00)
[2020-07-18 23:40] VITALS: BP 99/53
[2020-07-19] MEDS: OFLOXACIN 0.3% OPHTH SOLN 5 ML OS SCH ×5 (01:00→23:14)
[2020-07-19 04:00] VITALS: BP 107/70
[2020-07-19 05:11] LABS: BASOPHILS # (AUTO) 0.1 10^3/uL (0.0-0.1); BASOPHILS % (AUTO) 1 % (0-10); EOSINOPHILS # (AUTO) 0.1 10^3/uL (0.0-0.3); EOSINOPHILS % (AUTO) 1 % (0-10); HEMATOCRIT 34 % (35-52); HEMOGLOBIN 10.7 g/dL (11.5-16.0); LYMPHOCYTES # (AUTO) 1.9 10^3/uL (1.0-4.0); LYMPHOCYTES % (AUTO) 20 % (12-44); MEAN CORPUSCULAR HEMOGLOBIN 32 pg (25-34); MEAN CORPUSCULAR HGB CONC 32 g/dL (32-36); MEAN CORPUSCULAR VOLUME 101 fL (80-99); MEAN PLATELET VOLUME 10.3 fL (9.0-12.2); MONOCYTES # (AUTO) 2.2 10^3/uL (0.0-1.0); MONOCYTES % (AUTO) 24 % (0-12); NEUTROPHILS # (AUTO) 3.7 10^3/uL (1.8-7.8); NEUTROPHILS % (AUTO) 40 % (42-75); PLATELET COUNT 169 10^3/uL (130-400); WHITE BLOOD COUNT 9.3 10^3/uL (4.3-11.0)
[2020-07-19 05:31] LABS: ALANINE AMINOTRANSFERASE 12 U/L (0-55); ALBUMIN 2.5 GM/DL (3.2-4.5); ALKALINE PHOSPHATASE 123 U/L (40-136); BILIRUBIN,TOTAL 0.3 MG/DL (0.1-1.0); BUN/CREATININE RATIO 14; CALCIUM 8.6 MG/DL (8.5-10.1); CARBON DIOXIDE 21 MMOL/L (21-32); CHLORIDE 109 MMOL/L (98-107); CREATININE SERUM 0.83 MG/DL (0.60-1.30); GFR ESTIMATED > 60; GLUCOSE 74 MG/DL (70-105); POTASSIUM 3.2 MMOL/L (3.6-5.0); SODIUM 141 MMOL/L (135-145); TOTAL PROTEIN 5.5 GM/DL (6.4-8.2)
[2020-07-19] MEDS: PANTOPRAZOLE 40 MG (PROTONIX) TAB PO SCH (06:01)
[2020-07-19] MEDS: HYDROcodone/APAP 5 MG/325 MG (LORTAB) TAB PO PRN ×3 (06:03→23:13)
[2020-07-19 07:10] VITALS: BP 115/56
[2020-07-19] MEDS ORDERED: BENZ100C18 PO (08:07)
[2020-07-19] MEDS ORDERED: MICO90PO TP (08:07)
[2020-07-19] MEDS ORDERED: ALBU0.63 IH (08:07)
[2020-07-19] MEDS ORDERED: ZINC28PA TP (08:07)
[2020-07-19] MEDS: LACTATED RINGERS 1,000 ML IV SCH (08:40)
[2020-07-19] MEDS: ENOXAPARIN 80 MG/0.8 ML (LOVENOX) SYR SC SCH ×2 (08:40→20:21)
[2020-07-19] MEDS: polyethylene glycoL POWDER 17 GM (MIRALAX) PACK PO SCH ×2 (08:41→20:22)
[2020-07-19] MEDS: SENNA W/DOCUSATE (SENOKOT S) TABLET PO SCH ×2 (08:41→20:22)
[2020-07-19] MEDS: DULoxetine 30 MG (CYMBALTA) CAP PO SCH (08:41)
[2020-07-19] MEDS: toPIRamate 25 MG (TOPAMAX) TAB PO SCH ×2 (08:42→20:22)
[2020-07-19] MEDS: ASPIRIN E.C. 81 MG (ECOTRIN) TAB PO SCH (08:42)
[2020-07-19] MEDS: LEVETIRACETAM 1,000 MG (KEPPRA) TABLET PO SCH ×2 (08:42→20:21)
[2020-07-19] MEDS: DIVALPROEX EXT RELEASE 500 MG (DEPAKOTE ER) TAB PO SCH ×2 (08:42→20:21)
[2020-07-19] MEDS: OXYBUTYNIN (DITROPAN) 5 MG TAB PO SCH ×3 (08:42→20:22)
[2020-07-19] MEDS: PRAMIPEXOLE 0.5 MG TAB (MIRAPEX) PO SCH ×3 (08:42→20:21)
[2020-07-19] MEDS: prednisoLONE 1% OPTH (PRED FORTE) 5 ML BTL OU SCH (08:46)
[2020-07-19] MEDS: MICONAZOLE 2% POWDER (DESENEX AF) 90 GM TOP SCH ×2 (08:46→20:23)
[2020-07-19] MEDS: NYSTATIN CREAM (MYCOSTATIN) 30 GM TUBE TP SCH ×2 (08:47→20:23)
[2020-07-19] MEDS: cefTRIAXone FOR IV USE 1,000 MG in WATER (STERILE) FOR INJECTION 10 ML IV SCH (08:52)
--- NOTE | 2020-07-19 09:24 | NUR ---
[facility] HAS BEEN COMPLETED USING THE ORDER REPORT FROM JIMMIE DELATORRE I SPOKE WITH HER NURSE AT THE FACILITY ON 07-01-2020 TO GET CLARIFICATION ON PTS DEPAKOTE AND SEROQUEL. PLEASE SEE MY NOTE IF NEEDED
--- NOTE | 2020-07-19 10:59 | Diagnostic Imaging Report ---
PROCEDURE: US left lower extremity venous. TECHNIQUE: Multiple real-time grayscale images were obtained over the left lower extremity in various projections. Additional duplex Doppler and color Doppler images were also obtained. INDICATION: Deep venous thrombosis EXAMINATION: Grayscale and color Doppler evaluation of the deep veins of the left lower extremity were performed with waveform analysis. FINDINGS: Continuous venous flow is present. No intraluminal filling defect is identified. There is normal compressibility and response to augmentation. No abnormal perivascular fluid collection is identified. IMPRESSION: No ultrasound evidence of left lower extremity deep venous thrombosis. Dictated by: Dictated on workstation # [id number]
[2020-07-19] MEDS ORDERED: KCL 20 MEQ TAB (K-DUR) PO ONE (11:15)
[2020-07-19 11:40] VITALS: BP 104/54
--- NOTE | 2020-07-19 11:43 | Progress Note - Hospitalist ---
SREEANGIE MED STUDENT 07/19/20 1143: Subjective HPI/CC On Admission Date Seen by Provider: Jul 19, 2020 Time Seen by Provider: 08:20 CC: Right wrist fracture after fall HPI: This is a 70yoWF known to me from recent IRF stay who presents to the ER today after suffering a fall and subsequent right wrist fracture. She sustained multiple bruises to her arms and legs and torso. Home meds will be restarted. Needs NH placement. Hydrocodone will be given for the pain. Subjective/Events-last exam Pt appears weak laying in bed Reports suprapubic pain Wrist pain well controlled VSS WBC 9.3 K 3.2 Ultrasound for possible DVT negative, D-Dimer elevated from other causes Focused Exam Lactate Level 07/18/20 19:05: Lactic Acid Level 0.87 Objective Exam Vital Signs Vital Signs Date Time Temp Pulse Resp B/P (MAP) Pulse Ox O2 Delivery O2 Flow Rate FiO2 07/19/20 08:00 94 Room Air 07/19/20 07:10 36.2 68 16 115/56 (75) 07/18/20 20:27 21 Capillary Refill : Less Than 3 SecondsLess Than 3 Seconds General Appearance: No Apparent Distress, Chronically ill HEENT: PERRL/EOMI, Normal ENT Inspection Neck: Non Tender, Supple Respiratory: Chest Non Tender, No Respiratory Distress Cardiovascular: Regular Rate, Rhythm, Normal Peripheral Pulses Gastrointestinal: Normal Bowel Sounds, Soft, Tenderness (suprapubic) Back: Normal Inspection, No CVA Tenderness Extremity: Non Tender, No Calf Tenderness Neurologic/Psychiatric: Alert, Oriented x3, No Motor/Sensory Deficits Skin: Normal Color, Warm/Dry Results/Procedures Lab Laboratory Tests 07/18/20 16:37 07/19/20 05:00 Patient resulted labs reviewed. Assessment/Plan Assessment and Plan Assess & Plan/Chief Complaint Assessment: s/p fall with right wrist fracture needs NHP failed AL after IRF course Left lower extremity erythema s/p 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 PNA s/p Influenza B h/o TBI Seizures Dementia CAD HTN HLP Anemia Plan: Pain control Sling NHP Left leg USG Abx broad spectrum in meantime 05/19/21: Monitor possible cystitis Clinical Quality Measures DVT/VTE Risk/Contraindication: Risk Factor Score Per Nursin LYDIA SANDOVAL DO 07/19/202127: Subjective Subjective/Events-last exam Patient about the same Abx maintained Lovenox maintained Objective Exam General Appearance: No Apparent Distress, WD/WN Respiratory: Lungs Clear Cardiovascular: Regular Rate, Rhythm Neurologic/Psychiatric: Alert, Disoriented Assessment/Plan Assessment and Plan Assess & Plan/Chief Complaint 07/19/20: Abx Lovenox decreased since no DVT Supervisory-Addendum Brief Verification & Attestation Participated in pt care: history, MDM, physical Personally performed: exam, history, MDM, supervision of care Care discussed with: Medical Student Procedures: n/a Results interpretation: Verified all documentation Verification and Attestation of Medical Student E/M Service A medical student performed and documented this service in my presence. I reviewed and verified all information documented by the medical student and made modifications to such information, when appropriate. I personally performed the physical exam and medical decision making. Lydia Sandoval, Jul 19, 2020,21:28 ANGIE BALBUENA MED STUDENT Jul 19, 2020 11:43 LYDIA SANDOVAL DO Jul 19, 2020 21:28
[2020-07-19] MEDS: fluCOnazole (DIFLUCAN) 100 MG TAB PO SCH (12:29)
--- NOTE | 2020-07-19 14:04 | NUR ---
CM/SS visited with patient for social service consult. Plan: At time of discharge, patient will need a fdc facility. CM/SS visited with the patient. She was lying in bed resting. She woke easily and was willing to talk with this sw. The patient reports that she is hungry and ready to eat. She states she has already had breakfast but needs a snack. The patient was alert and oriented x3. CM/SS asked the patient if she would be agreeable with a fdc facility placement. She verbalized yes but did not have a preference. Vreo Lalas: CM/SS contacted [place] from [facility] to verify that the patient would not be able to come straight back to facility. [place] reports that at this time she would need skilled therapies before she returned back to the assisted living. DPOA: CM/SS contacted Addy to discuss discharge plans. Addy reports that she has been having more confusion since having Covid and being admitted to the hospital. CM/SS explained conversation with the patient and [place]. Addy reports that he is agreeable with skilled placement. Addy requested this to send a referral to [facility]. VCV: JA/SS contacted Myrtle at the facility to make referral. She reports they have beds available at this time. JA/SS faxed clinical. Myrtle reports that she will accept pending insurance for Saturday 07/22. JA/MIKO notified Physician. JA/MIKO will continue to follow.
--- NOTE | 2020-07-19 14:40 | Occupational Therapy Eval ---
OT Evaluation-General/PLF Medical Diagnosis Admission Date Jul 18, 2020 at 16:55 Medical Diagnosis: R wrist fx, UTI, delerium, physical debility Onset Date: Jul 18, 2020 Therapy Diagnosis Therapy Diagnosis: debility Height/Weight Height (Feet): 5 Height (Inches): 4.00 Weight (Pounds): 166 Weight (Ounces): 0.0 Precautions Precautions/Isolations: Fall Prevention, Standard Precautions Referral Physician: Tiana Referral Reason: Evaluation/Treatment Medical History Pertinent Medical History: Arthritis, CAD, Dementia, GERD, HTN, TBI Social History Home: Assisted Living ([facility]) ADL-Prior Level of Function SCALE: Activities may be completed with or without assistive devices. 3-Lmhvidqvxt-prprmuq completes the activity by him/herself with no assistance from a helper. 5-Set-up or Clean-up Assistance-helper sets up or cleans up; patient completes activity. [place] assists only prior to or following the activity. 4-Supervision or Touching Assistance-helper provides verbal cues and/or touching/steadying and/or contact guard assistance as patient completes activity. Assistance may be provided throughout the activity or intermittently. 3-Partial/Moderate Assistance-helper does LESS THAN HALF the effort. [place] lifts, holds or supports trunk or limbs, but provides less than half the effort. 2-Substantial/Maximal Assistance-helper does MORE THAN HALF the effort. [place] lifts or holds trunk or limbs and provides more than half the effort. 7-Gcrkzkdrk-avzydh does ALL the effort. Patient does none of the effort to complete the activity. Or, the assistance of 2 or more helpers is required for the patient to complete the activity. If activity was not attempted, code reason: 7-Patient Refused. 9-Not Applicable-not attempted and the patient did not perform the activity before the current illness, exacerbation or injury. 10-Not Attempted due to Environmental Limitations-(lack of equipment, weather restraints, etc.). 88-Not Attempted due to Medical Conditions or Safety Concerns. ADL PLOF Comments Pt lives at [facility], level of assistance required is unknown at this time. When pt discharged from [facility] 07/17/2020 she was independent with eating, SBA oral care, and max A with showering, upper/lower body dressing, footwear and toileting. Self Care: Needed Some Help Functional Cognition: Unknown OT Current Status Subjective Pt laying in bed, agreeable to OT evaluation. Pt confused during visit, when OT asked pt about how being back at [facility] was (pt discharged 07/17/2019 from ARU), pt replied that she does not live there. She indicates she lived somewhere else but was unable to come up with a name of this other place. Mental Status/Objective Patient Orientation: Person, Confused Attachments: IV Current Upper Extremity ROM RUE wrist fracture, splint over wrist/elbow. Pt did not move R fingers when ask ed, PROM performed to approx 90 degrees. LUE WFL Upper Extremity Coordination decreased due to decreased use RUE ADL-Treatment Eating (QC): 3 (Assist to bring water cup to pt's mouth. ) Other Treatments Pt laying in bed, OT educated pt on OT's role while she is in the hospital. Pt kept eyes closed throughout tx, difficulty keeping eyes open. OT asked pt to move fingers on RUE, but pt did not initiate, OT performed gently PROM of RUE fingers/thumb x5 reps. Pt reports increased pain with movement. OT then assisted pt with performing x5 reps PROM R shoulder flexion, pt again reports slightly increased pain. OT then assisted pt with AAROM LUE shoulder flexion, wrist flexion/extension, and AROM senior boiler operator squeezes x5 reps each. Pt asks for drink of water, OT placed water cup in pt's hand but pt did not initiate bringing to her mouth. OT assisted pt with raising cup to her mouth to take a drink. Post OT tx, pt laying in bed, call light in reach and all needs met, bed alarm on. Education OT Patient Education: Correct positioning, Modified ADL techniques, Progress toward Goal/Update tx plan, Purpose of tx/functional activities Teaching Recipient: Patient Teaching Methods: Discussion Response to Teaching: Verbalize Understanding OT Nursing Home Goals Roent[employer]ology Teacher Goals Time Frame: Jul 31, 2020 Eating (QC): 5 Oral Hygiene (QC): 5 Toileting Hygiene (QC): 3 Shower/Bathe Self (QC): 3 Upper Body Dressing (QC): 3 Lower Body Dressing (QC): 3 On/Off Footwear (QC): 3 1=Demonstrate adherence to instructed precautions during ADL tasks. 2=Patient will verbalize/demonstrate understanding of assistive devices/modifications for ADL. 3=Patient will improve strength/tolerance for activity to enable patient to perform ADL's. OT Education/Plan Problem List/Assessment Assessment: Decreased Activ Tolerance, Decreased UE Strength, Impaired I ADL's, Impaired Self-Care Skills, Restricted Funct UE ROM Discharge Recommendations Plan/Recommendations: Continue POC Therapy Discharge Recommendati: Other, See Comments (NH) Treatment Plan/Plan of Care Patient would benefit from OT for education, treatment and training to promote independence in ADL's, mobility, safety and/or upper extremity function for ADL's. Plan of Care: ADL Retraining, Functional Mobility, UE Funct Exercise/Act Treatment Duration: Jul 31, 2020 Frequency: 5 times per week Estimated Hrs Per Day: .25 hour per day Rehab Potential: Guarded Time/GCodes Start Time: 13:58 Stop Time: 14:09 Total Time Billed (hr/min): 11 Billed Treatment Time 1, WADE VALDEZ OT Jul 19, 2020 14:40
--- NOTE | 2020-07-19 15:13 | Physical Therapy Evaluation ---
PT Evaluation-General Medical Diagnosis Admission Date Jul 18, 2020 at 16:55 Medical Diagnosis: R wrist fx, UTI, delerium, physical debility Onset Date: Jul 18, 2020 Therapy Diagnosis Therapy Diagnosis: impaired mobility, strength, endurance Height/Weight Height (Feet): 5 Height (Inches): 4.00 Weight (Pounds): 166 Weight (Ounces): 0.0 Precautions Precautions/Isolations: Fall Prevention, Standard Precautions Referral Physician: Tiana Reason for Referral: Evaluation/Treatment Medical History Pertinent Medical History: Arthritis, CAD, Dementia, GERD, HTN, TBI Social History Home: Assisted Living Entry Into Home: Level Entry Prior Prior Level of Function SCALE: Activities may be completed with or without assistive devices. 6-Tusuzgsrrr-zbzirnv completes the activity by him/herself with no assistance from a helper. 5-Set-up or Clean-up Assistance-helper sets up or cleans up; patient completes activity. [place] assists only prior to or following the activity. 4-Supervision or Touching Assistance-helper provides verbal cues and/or touching/steadying and/or contact guard assistance as patient completes activity. Assistance may be provided throughout the activity or intermittently. 3-Partial/Moderate Assistance-helper does LESS THAN HALF the effort. [place] lifts, holds or supports trunk or limbs, but provides less than half the effort. 2-Substantial/Maximal Assistance-helper does MORE THAN HALF the effort. [place] lifts or holds trunk or limbs and provides more than half the effort. 3-Pacgoyapk-stghds does ALL the effort. Patient does none of the effort to complete the activity. Or, the assistance of 2 or more helpers is required for the patient to complete the activity. If activity was not attempted, code reason: 7-Patient Refused. 9-Not Applicable-not attempted and the patient did not perform the activity before the current illness, exacerbation or injury. 10-Not Attempted due to Environmental Limitations-(lack of equipment, weather restraints, etc.). 88-Not Attempted due to Medical Conditions or Safety Concerns. Bed Mobility: 5 Transfers (B,C,W/C): 5 Gait: 5 Prior Devices Use: Walker PT Evaluation-Current Subjective Patient in bed pre tx, agrees to PT, has 9/10 pain in right wrist. Patient also has a bruise over her right eye. Pt/Family Goals none stated Objective Patient Orientation: Person, Confused Attachments: IV right wrist splint ROM/Strength ROM Lower Extremities WNL Strength Lower Extremities 4/5 gross BLE Sensory Vision: Wears Glasses Hearing: Functional Sensation Right Lower Extremit: Intact Sensation Left Lower Extremity: Intact Transfers Roll Left to Right (QC): 3 Lying to Sitting/Side of Bed(Q: 3 Sit to Stand (QC): 3 Chair/Ewe-kk-Ksytm Xfer(QC): 3 Patient in bed pre tx, agrees to PT, would like to get out of bed and in chair, mod assist for supine to sit and to scoot forward (patient had a purewick which she was able to take out herself, notified nurse that it was out), mod assist to stand and she was able to take several steps to recliner with mod assist, sits forcefully, needs cues for hand placement and safety. Balance Sitting Static: Normal Sitting Dynamic: Normal Standing Static: Poor Standing Dynamic: Poor Treatment BLE seated exercises x20 (AP, LAQ) Assessment/Needs Patient has impaired mobility, strength, endurance. Patient needs mod assist for supine to sit and transfers. Patient in recliner post tx with nurse call, phone, tray, all needs met, legs elevated, chair alarm on. Rehab Potential: Fair PT Certified Peer Specialist Goals Certified Peer Specialist Goals PT Certified Peer Specialist Goals Time Frame: Jul 26, 2020 Roll Left & Right (QC): 4 Sit to Lying (QC): 4 Lying-Sitting on Side/Bed(QC): 4 Sit to Stand (QC): 4 Chair/Xtr-sb-Zjjxm Xfer(QC): 4 Walk 10 feet (QC): 4 PT Plan Problem List Problem List: Activity Tolerance, Functional Strength, Safety, Balance, Gait, Transfer, Bed Mobility, ROM Treatment/Plan Treatment Plan: Continue Plan of Care Treatment Plan: Bed Mobility, Education, Functional Activity Tang, Functional Strength, Gait, Safety, Therapeutic Exercise, Transfers Treatment Duration: Jul 26, 2020 Frequency: 6 times per week Estimated Hrs Per Day: .25 hour per day Patient and/or Family Agrees t: Yes Safety Risks/Education Patient Education: Transfer Techniques, Correct Positioning, Safety Issues Teaching Recipient: Patient Teaching Methods: Demonstration, Discussion Response to Teaching: Reinforcement Needed Discharge Recommendations Plan Patient will perform bed mobility and transfer training, balance and endurance training, functional strengthening, gait training, and education, to improve functional mobility and independence at home. Therapy Discharge Recommendati: 24 Hour Supervision Time/GCodes Time In: 1446 Time Out: 1500 Total Billed Treatment Time: 14 Total Billed Treatment 1 visit ELIO THORNE PT Jul 19, 2020 15:13
[2020-07-19 16:00] VITALS: BP 149/74
[2020-07-19] MEDS: VANCOMYCIN 1250 MG/NS 250 ML IVPB IV SCH ×2 (17:19)
[2020-07-19 20:00] VITALS: BP 145/70
[2020-07-19] MEDS: MIRTAZAPINE 15 MG (REMERON) TAB PO SCH (20:21)
[2020-07-19] MEDS: KCL 10 MEQ TAB (MICRO K) PO SCH (20:22)
[2020-07-19] MEDS ORDERED: ENOXAPARIN 40 MG/0.4 ML (LOVENOX) SYR SC SCH (21:30)
[2020-07-20] VITALS: BP 111/58
[2020-07-20 03:53] VITALS: BP 125/58
[2020-07-20 04:50] LABS: BASOPHILS # (AUTO) 0.1 10^3/uL (0.0-0.1); BASOPHILS % (AUTO) 1 % (0-10); EOSINOPHILS # (AUTO) 0.1 10^3/uL (0.0-0.3); EOSINOPHILS % (AUTO) 1 % (0-10); HEMATOCRIT 33 % (35-52); HEMOGLOBIN 10.4 g/dL (11.5-16.0); LYMPHOCYTES # (AUTO) 2.3 10^3/uL (1.0-4.0); LYMPHOCYTES % (AUTO) 27 % (12-44); MEAN CORPUSCULAR HEMOGLOBIN 32 pg (25-34); MEAN CORPUSCULAR HGB CONC 32 g/dL (32-36); MEAN CORPUSCULAR VOLUME 101 fL (80-99); MEAN PLATELET VOLUME 10.4 fL (9.0-12.2); MONOCYTES % (AUTO) 24 % (0-12); NEUTROPHILS # (AUTO) 2.8 10^3/uL (1.8-7.8); NEUTROPHILS % (AUTO) 34 % (42-75); PLATELET COUNT 174 10^3/uL (130-400); WHITE BLOOD COUNT 8.3 10^3/uL (4.3-11.0)
[2020-07-20 05:00] LABS: ALBUMIN 2.5 GM/DL (3.2-4.5)
[2020-07-20 05:01] LABS: CHLORIDE 110 MMOL/L (98-107); POTASSIUM 4.2 MMOL/L (3.6-5.0); SODIUM 142 MMOL/L (135-145)
[2020-07-20 05:02] LABS: CALCIUM 8.4 MG/DL (8.5-10.1)
[2020-07-20 05:03] LABS: GLUCOSE 81 MG/DL (70-105); TOTAL PROTEIN 5.5 GM/DL (6.4-8.2)
[2020-07-20 05:04] LABS: CARBON DIOXIDE 25 MMOL/L (21-32)
[2020-07-20 05:05] LABS: BILIRUBIN,TOTAL 0.3 MG/DL (0.1-1.0)
[2020-07-20 05:07] LABS: ALKALINE PHOSPHATASE 158 U/L (40-136); CREATININE SERUM 0.86 MG/DL (0.60-1.30); GFR ESTIMATED > 60
[2020-07-20 05:08] LABS: BUN/CREATININE RATIO 13
[2020-07-20 05:10] LABS: ALANINE AMINOTRANSFERASE 21 U/L (0-55)
--- NOTE | 2020-07-20 05:10 | Progress Note - Hospitalist ---
Subjective HPI/CC On Admission Date Seen by Provider: Jul 20, 2020 Time Seen by Provider: 09:00 CC: Right wrist fracture after fall HPI: This is a 70yoWF known to me from recent IRF stay who presents to the ER today after suffering a fall and subsequent right wrist fracture. She sustained multiple bruises to her arms and legs and torso. Home meds will be restarted. Needs NH placement. Hydrocodone will be given for the pain. Subjective/Events-last exam NO new issues Pain controlled Checked meds and labs NO falls Review of Systems Musculoskeletal: arm pain Focused Exam Lactate Level 07/18/20 19:05: Lactic Acid Level 0.87 Objective Exam Vital Signs Vital Signs Date Time Temp Pulse Resp B/P (MAP) Pulse Ox O2 Delivery O2 Flow Rate FiO2 07/21/20 04:33 37.1 71 18 141/63 (89) 95 Room Air 07/18/20 20:27 21 Capillary Refill : Less Than 3 SecondsLess Than 3 Seconds General Appearance: No Apparent Distress, WD/WN, Chronically ill Respiratory: Chest Non Tender, Lungs Clear, Normal Breath Sounds, No Accessory Muscle Use, No Respiratory Distress Cardiovascular: Regular Rate, Rhythm, No Edema, No Gallop, No JVD, No Murmur, Normal Peripheral Pulses Neurologic/Psychiatric: Alert, Oriented x3, No Motor/Sensory Deficits, Normal Mood/Affect, Disoriented Results/Procedures Lab Patient resulted labs reviewed. Assessment/Plan Assessment and Plan Assess & Plan/Chief Complaint Assessment: s/p fall with right wrist fracture needs NHP failed AL after IRF course Left lower extremity erythema s/p 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 PNA s/p Influenza B h/o TBI Seizures Dementia CAD HTN HLP Anemia Plan: Pain control Sling NHP Left leg USG Abx broad spectrum in meantime 07/20/20: Left leg cellulitis improved UCx still pending Monitoring pain Clinical Quality Measures DVT/VTE Risk/Contraindication: Risk Factor Score Per Nursin DADA SANDOVAL DO Jul 20, 2020 05:10
[2020-07-20] MEDS: PANTOPRAZOLE 40 MG (PROTONIX) TAB PO SCH (06:17)
[2020-07-20] MEDS: OFLOXACIN 0.3% OPHTH SOLN 5 ML OS SCH ×3 (06:17→18:51)
[2020-07-20 08:00] VITALS: BP 115/53
--- NOTE | 2020-07-20 08:52 | Physical Therapy Daily Note ---
PT Daily Note-Current Subjective Pt presents supine in bed upon arrival to room, agreeable to PT treatment at this time. Pt complains of 8/10 back and arm pain. Appearance Following session, pt returned to bed with call light and tray within reach. All needs met at this time. Mental Status Patient Orientation: Person Attachments: IV Transfers SCALE: Activities may be completed with or without assistive devices. 3-Sdbtvrpjdk-ahmloeh completes the activity by him/herself with no assistance fr om a helper. 5-Set-up or Clean-up Assistance-helper sets up or cleans up; patient completes activity. [place] assists only prior to or following the activity. 4-Supervision or Touching Assistance-helper provides verbal cues and/or touching/steadying and/or contact guard assistance as patient completes activity. Assistance may be provided throughout the activity or intermittently. 3-Partial/Moderate Assistance-helper does LESS THAN HALF the effort. [place] lifts, holds or supports trunk or limbs, but provides less than half the effort. 2-Substantial/Maximal Assistance-helper does MORE THAN HALF the effort. [place] lifts or holds trunk or limbs and provides more than half the effort. 6-Pwsrxnphv-fyqzbw does ALL the effort. Patient does none of the effort to complete the activity. Or, the assistance of 2 or more helpers is required for the patient to complete the activity. If activity was not attempted, code reason: 7-Patient Refused. 9-Not Applicable-not attempted and the patient did not perform the activity before the current illness, exacerbation or injury. 10-Not Attempted due to Environmental Limitations-(lack of equipment, weather restraints, etc.). 88-Not Attempted due to Medical Conditions or Safety Concerns. Roll Left & Right (QC): 4 Sit to Lying (QC): 4 Lying to Sitting/Side of Bed(Q: 3 Pt able to complete bed mobility with CGA this date. She requires cueing for hand placement and sequencing. Pt then sat at EOB for approx 5 minutes before standing, then she reports "my head feels funny, I need to lay back down." Pt returned to supine with BP taken, reading 115/78. Exercises Supine Ex: Ankle pumps, Quad Set, Heel Slides, Hip abd/add Supine Reps: 10 Treatments Pt able to complete bed mobility with CGA this date. She requires cueing for hand placement and sequencing. Pt then sat at EOB for approx 5 minutes before standing, then she reports "my head feels funny, I need to lay back down." Pt returned to supine with BP taken, reading 115/78. Pt then agreed to complete supine LE exercises. Assessment Current Status: Fair Progress Pt demonstrated improved bed mobility this date, however, was unable to get OOB due to dizziness. Will continue to progress pts activity as tolerated. PT Senior Living Goals Mannequin Sander And Finisher Goals PT Senior Living Goals Time Frame: Jul 26, 2020 Roll Left & Right (QC): 4 Sit to Lying (QC): 4 Lying-Sitting on Side/Bed(QC): 4 Sit to Stand (QC): 4 Chair/Qku-vk-Akmiz Xfer(QC): 4 Walk 10 feet (QC): 4 PT Plan Problem List Problem List: Activity Tolerance, Functional Strength, Safety, Balance, Gait, Transfer, Bed Mobility, ROM Treatment/Plan Treatment Plan: Continue Plan of Care Treatment Plan: Bed Mobility, Education, Functional Activity Tang, Functional Strength, Gait, Safety, Therapeutic Exercise, Transfers Treatment Duration: Jul 26, 2020 Frequency: 6 times per week Estimated Hrs Per Day: .25 hour per day Patient and/or Family Agrees t: Yes Time/GCodes Time In: 806 Time Out: 821 Total Billed Treatment Time: 15 Total Billed Treatment 1 visit FA (15') TYRON BIRMINGHAM PT Jul 20, 2020 08:52
[2020-07-20] MEDS: toPIRamate 25 MG (TOPAMAX) TAB PO SCH ×2 (09:24→21:40)
[2020-07-20] MEDS: LEVETIRACETAM 1,000 MG (KEPPRA) TABLET PO SCH ×2 (09:25→21:40)
[2020-07-20] MEDS: PRAMIPEXOLE 0.5 MG TAB (MIRAPEX) PO SCH ×3 (09:25→21:39)
[2020-07-20] MEDS: OXYBUTYNIN (DITROPAN) 5 MG TAB PO SCH ×3 (09:25→21:40)
[2020-07-20] MEDS: DULoxetine 30 MG (CYMBALTA) CAP PO SCH (09:25)
[2020-07-20] MEDS: ASPIRIN E.C. 81 MG (ECOTRIN) TAB PO SCH (09:25)
[2020-07-20] MEDS: fluCOnazole (DIFLUCAN) 100 MG TAB PO SCH (09:25)
[2020-07-20] MEDS: SENNA W/DOCUSATE (SENOKOT S) TABLET PO SCH ×2 (09:25→21:40)
[2020-07-20] MEDS: DIVALPROEX EXT RELEASE 500 MG (DEPAKOTE ER) TAB PO SCH ×2 (09:25→21:40)
[2020-07-20] MEDS: KCL 10 MEQ TAB (MICRO K) PO SCH ×2 (09:26→21:40)
[2020-07-20] MEDS: HYDROcodone/APAP 5 MG/325 MG (LORTAB) TAB PO PRN (09:26)
[2020-07-20] MEDS: polyethylene glycoL POWDER 17 GM (MIRALAX) PACK PO SCH ×2 (09:28→21:40)
[2020-07-20] MEDS: cefTRIAXone FOR IV USE 1,000 MG in WATER (STERILE) FOR INJECTION 10 ML IV SCH (09:29)
[2020-07-20] MEDS: NYSTATIN CREAM (MYCOSTATIN) 30 GM TUBE TP SCH ×2 (09:38→21:40)
[2020-07-20] MEDS: MICONAZOLE 2% POWDER (DESENEX AF) 90 GM TOP SCH ×2 (09:40→21:41)
[2020-07-20 12:00] VITALS: BP 123/59
[2020-07-20 16:26] VITALS: BP 114/60
[2020-07-20] MEDS ORDERED: TROUGH ORDER-PHARMACY XX NR (17:00)
[2020-07-20] MEDS: VANCOMYCIN 1250 MG/NS 250 ML IVPB IV SCH ×2 (18:50)
[2020-07-20 20:46] VITALS: BP 110/61
[2020-07-20] MEDS: MIRTAZAPINE 15 MG (REMERON) TAB PO SCH (21:40)
[2020-07-20] MEDS: ENOXAPARIN 40 MG/0.4 ML (LOVENOX) SYR SC SCH (21:42)
[2020-07-21] MEDS: OFLOXACIN 0.3% OPHTH SOLN 5 ML OS SCH ×4 (00:33→18:32)
[2020-07-21 00:58] VITALS: BP 118/62
[2020-07-21 04:33] VITALS: BP 141/63
[2020-07-21] MEDS: PANTOPRAZOLE 40 MG (PROTONIX) TAB PO SCH (05:19)
[2020-07-21 08:00] VITALS: BP 123/59
--- NOTE | 2020-07-21 08:04 | Progress Note - Hospitalist ---
Subjective HPI/CC On Admission Date Seen by Provider: Jul 21, 2020 Time Seen by Provider: 12:30 CC: Right wrist fracture after fall HPI: This is a 70yoWF known to me from recent IRF stay who presents to the ER today after suffering a fall and subsequent right wrist fracture. She sustained multiple bruises to her arms and legs and torso. Home meds will be restarted. Needs NH placement. Hydrocodone will be given for the pain. Subjective/Events-last exam No major changes Pain controlled Confusion baseline Review of Systems General: Fatigue, Malaise Neurological: Weakness Focused Exam Lactate Level Objective Exam Vital Signs Vital Signs Date Time Temp Pulse Resp B/P (MAP) Pulse Ox O2 Delivery O2 Flow Rate FiO2 07/21/20 17:00 36.0 66 19 97 Room Air 07/18/20 20:27 21 Capillary Refill : Less Than 3 SecondsLess Than 3 Seconds General Appearance: No Apparent Distress, WD/WN, Chronically ill Respiratory: Chest Non Tender, Lungs Clear, Normal Breath Sounds, No Accessory Muscle Use, No Respiratory Distress Cardiovascular: Regular Rate, Rhythm, No Edema, No Gallop, No JVD, No Murmur, Normal Peripheral Pulses Neurologic/Psychiatric: Alert, Oriented x3, No Motor/Sensory Deficits, Depressed Affect, Disoriented Results/Procedures Lab Patient resulted labs reviewed. Assessment/Plan Assessment and Plan Assess & Plan/Chief Complaint Assessment: s/p fall with right wrist fracture needs NHP failed AL after IRF course Left lower extremity erythema s/p 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 PNA s/p Influenza B h/o TBI Seizures Dementia CAD HTN HLP Anemia Plan: Pain control Sling NHP Left leg USG Abx broad spectrum in meantime 07/20/20: Left leg cellulitis improved UCx still pending Monitoring pain 07/21/20: Monitor pain [facility] Clinical Quality Measures DVT/VTE Risk/Contraindication: Risk Factor Score Per Nursin DADA SANDOVAL DO Jul 21, 2020 08:04
[2020-07-21] MEDS: HYDROcodone/APAP 5 MG/325 MG (LORTAB) TAB PO PRN ×2 (08:08→18:01)
[2020-07-21] MEDS: ASPIRIN E.C. 81 MG (ECOTRIN) TAB PO SCH (08:09)
[2020-07-21] MEDS: SENNA W/DOCUSATE (SENOKOT S) TABLET PO SCH ×2 (08:09→20:03)
[2020-07-21] MEDS: DIVALPROEX EXT RELEASE 500 MG (DEPAKOTE ER) TAB PO SCH ×2 (08:10→20:03)
[2020-07-21] MEDS: KCL 10 MEQ TAB (MICRO K) PO SCH ×2 (08:10→20:03)
[2020-07-21] MEDS: DULoxetine 30 MG (CYMBALTA) CAP PO SCH (08:10)
[2020-07-21] MEDS: OXYBUTYNIN (DITROPAN) 5 MG TAB PO SCH ×3 (08:10→20:03)
[2020-07-21] MEDS: LEVETIRACETAM 1,000 MG (KEPPRA) TABLET PO SCH ×2 (08:10→20:03)
[2020-07-21] MEDS: PRAMIPEXOLE 0.5 MG TAB (MIRAPEX) PO SCH ×3 (08:10→20:03)
[2020-07-21] MEDS: fluCOnazole (DIFLUCAN) 100 MG TAB PO SCH (08:10)
[2020-07-21] MEDS: prednisoLONE 1% OPTH (PRED FORTE) 5 ML BTL OU SCH (08:11)
[2020-07-21] MEDS: polyethylene glycoL POWDER 17 GM (MIRALAX) PACK PO SCH ×2 (08:11→20:02)
[2020-07-21] MEDS: MICONAZOLE 2% POWDER (DESENEX AF) 90 GM TOP SCH ×2 (08:16→20:02)
[2020-07-21] MEDS: NYSTATIN CREAM (MYCOSTATIN) 30 GM TUBE TP SCH ×2 (08:17→20:02)
[2020-07-21] MEDS: cefTRIAXone FOR IV USE 1,000 MG in WATER (STERILE) FOR INJECTION 10 ML IV SCH (08:21)
[2020-07-21 12:00] VITALS: BP 137/60
[2020-07-21] MEDS: toPIRamate 25 MG (TOPAMAX) TAB PO SCH ×2 (12:57→20:03)
[2020-07-21] MEDS: VANCOMYCIN 1250 MG/NS 250 ML IVPB IV SCH ×2 (17:21)
[2020-07-21] MEDS: ENOXAPARIN 40 MG/0.4 ML (LOVENOX) SYR SC SCH (20:03)
[2020-07-21] MEDS: MIRTAZAPINE 15 MG (REMERON) TAB PO SCH (20:03)
[2020-07-21 20:39] VITALS: BP 131/71
[2020-07-21 23:34] VITALS: BP 118/57
[2020-07-22] MEDS: OFLOXACIN 0.3% OPHTH SOLN 5 ML OS SCH ×4 (00:13→17:21)
[2020-07-22 04:33] VITALS: BP 126/58
[2020-07-22 04:57] LABS: BASOPHILS # (AUTO) 0.1 10^3/uL (0.0-0.1); BASOPHILS % (AUTO) 1 % (0-10); EOSINOPHILS # (AUTO) 0.1 10^3/uL (0.0-0.3); EOSINOPHILS % (AUTO) 1 % (0-10); HEMATOCRIT 35 % (35-52); HEMOGLOBIN 10.8 g/dL (11.5-16.0); LYMPHOCYTES # (AUTO) 2.2 10^3/uL (1.0-4.0); LYMPHOCYTES % (AUTO) 34 % (12-44); MEAN CORPUSCULAR HEMOGLOBIN 32 pg (25-34); MEAN CORPUSCULAR HGB CONC 31 g/dL (32-36); MEAN CORPUSCULAR VOLUME 104 fL (80-99); MEAN PLATELET VOLUME 10.7 fL (9.0-12.2); MONOCYTES # (AUTO) 1.5 10^3/uL (0.0-1.0); MONOCYTES % (AUTO) 24 % (0-12); NEUTROPHILS # (AUTO) 1.6 10^3/uL (1.8-7.8); NEUTROPHILS % (AUTO) 25 % (42-75); PLATELET COUNT 166 10^3/uL (130-400); WHITE BLOOD COUNT 6.4 10^3/uL (4.3-11.0)
[2020-07-22 05:18] LABS: ALBUMIN 2.4 GM/DL (3.2-4.5); CHLORIDE 109 MMOL/L (98-107); POTASSIUM 4.6 MMOL/L (3.6-5.0); SODIUM 142 MMOL/L (135-145)
[2020-07-22 05:20] LABS: CALCIUM 8.9 MG/DL (8.5-10.1)
[2020-07-22 05:21] LABS: GLUCOSE 76 MG/DL (70-105); TOTAL PROTEIN 5.7 GM/DL (6.4-8.2)
[2020-07-22 05:22] LABS: CARBON DIOXIDE 28 MMOL/L (21-32)
[2020-07-22 05:23] LABS: BILIRUBIN,TOTAL 0.2 MG/DL (0.1-1.0)
[2020-07-22 05:24] LABS: ALKALINE PHOSPHATASE 145 U/L (40-136); GFR ESTIMATED > 60
[2020-07-22 05:25] LABS: BUN/CREATININE RATIO 11
[2020-07-22 05:27] LABS: ALANINE AMINOTRANSFERASE 16 U/L (0-55)
[2020-07-22] MEDS: PANTOPRAZOLE 40 MG (PROTONIX) TAB PO SCH (06:08)
[2020-07-22 07:31] VITALS: BP 132/60
[2020-07-22] MEDS: MICONAZOLE 2% POWDER (DESENEX AF) 90 GM TOP SCH ×2 (08:24→20:31)
[2020-07-22] MEDS: NYSTATIN CREAM (MYCOSTATIN) 30 GM TUBE TP SCH ×2 (08:24→20:31)
[2020-07-22] MEDS: LEVETIRACETAM 1,000 MG (KEPPRA) TABLET PO SCH ×2 (08:27→20:31)
[2020-07-22] MEDS: PRAMIPEXOLE 0.5 MG TAB (MIRAPEX) PO SCH ×3 (08:27→20:30)
[2020-07-22] MEDS: OXYBUTYNIN (DITROPAN) 5 MG TAB PO SCH ×2 (08:27→12:42)
[2020-07-22] MEDS: polyethylene glycoL POWDER 17 GM (MIRALAX) PACK PO SCH ×2 (08:27→20:30)
[2020-07-22] MEDS: DIVALPROEX EXT RELEASE 500 MG (DEPAKOTE ER) TAB PO SCH ×2 (08:27→20:30)
[2020-07-22] MEDS: ASPIRIN E.C. 81 MG (ECOTRIN) TAB PO SCH (08:28)
[2020-07-22] MEDS: DULoxetine 30 MG (CYMBALTA) CAP PO SCH (08:28)
[2020-07-22] MEDS: toPIRamate 25 MG (TOPAMAX) TAB PO SCH ×2 (08:28→20:30)
[2020-07-22] MEDS: fluCOnazole (DIFLUCAN) 100 MG TAB PO SCH (08:28)
[2020-07-22] MEDS: SENNA W/DOCUSATE (SENOKOT S) TABLET PO SCH ×2 (08:28→20:30)
[2020-07-22] MEDS: KCL 10 MEQ TAB (MICRO K) PO SCH ×2 (08:28→20:30)
[2020-07-22] MEDS: cefTRIAXone FOR IV USE 1,000 MG in WATER (STERILE) FOR INJECTION 10 ML IV SCH (08:28)
[2020-07-22] MEDS ORDERED: FLUC100T6 PO (10:19)
[2020-07-22] MEDS ORDERED: POTA10TA6 PO (10:19)
[2020-07-22] MEDS ORDERED: ENOX40DI8 SC (10:19)
[2020-07-22] MEDS ORDERED: PRAM0.5T9 PO (10:19)
[2020-07-22] MEDS ORDERED: MIRT-47 PO (10:19)
[2020-07-22] MEDS ORDERED: ACHD5005 PO (10:19)
--- NOTE | 2020-07-22 10:20 | Discharge Inst-Skilled Nursing ---
Discharge Inst-Skilled NF Reconcile Patient Problems Problems Reviewed?: Yes Chief Complaint CC: Right wrist fracture after fall HPI: This is a 70yoWF known to me from recent IRF stay who presents to the ER today after suffering a fall and subsequent right wrist fracture. She sustained multiple bruises to her arms and legs and torso. Home meds will be restarted. Needs NH placement. Hydrocodone will be given for the pain. Patient Instructions Patient Problems: Seizure d/o Falls Goal: PCP 1 week Consult/Follow Up/Orders Follow Up Appt.: Dr Gross in 1 week Skilled NF Admit to: [facility] ([facility]) I certify that [facility] services are required to be given on an inpatient basis because of the above named patient's need for [place] [facility] care on a continuing basis for the conditions(s) for which he/she was receiving inpatient hospital services prior to his/her transfer to the [facility]. [facility] Facility Order: Nursing Services, Service Line Layer-Evaluate & Treat, Physical Therapy-Evaluate & Treat Oxygen Delivery Method: Room Air Discharge Diet: No Restrictions Resuscitation Status: Full Code New & Resume Previous Orders New Medications: Enoxaparin Sodium (Enoxaparin Sodium) 40 Mg/0.4 Ml Syringe 40 MG SC Q24H for 14 Days, SYRINGE Fluconazole (Fluconazole) 100 Mg Tablet 100 MG PO DAILY for 3 Days, TAB Hydrocodone/Acetaminophen (Hydrocodone-Acetamin 5-325 mg) 1 Each Tablet 1 TAB PO Q4H PRN for PAIN-MODERATE (5-7), #30 TAB Mirtazapine (Mirtazapine) 15 Mg Tab.rapdis 15 MG PO HS for 30 Days, TAB Potassium Chloride (Klor-Con 10) 10 Meq Tablet.er 10 MEQ PO BID for 60 Days, TAB Continued Medications: Acetaminophen (Tylenol) 325 Mg Capsule 650 MG PO Q6H PRN for PAIN-MILD (1-4), CAP Albuterol Sulfate (Ventolin Hfa) 18 Gm Hfa.aer.ad 0 GM IH Q2HR PRN for SOA, #1 GM Albuterol Sulfate (Albuterol Sulfate) 0.63 Mg/3 Ml Vial.neb 0.63 MG IH Q2H PRN for SHORTNESS OF AIR, INHALER Ascorbic Acid (Vitamin C) 1,000 Mg Tablet 1000 MG PO DAILY, TAB Aspirin (Aspirin EC) 81 Mg Tablet.dr 81 MG PO DAILY, TAB Benzonatate (Tessalon Perles) 100 Mg Capsule 100 MG PO Q8H PRN for COUGH, CAP Clobetasol Propionate (Clobetasol Propionate) 118 Ml Shampoo 1 APPLIC TOP Q72H, EA Clobetasol Propionate (Clobetasol Propionate) 50 Ml Solution 1 APPLIC TP BID, EA APPLY TO THE SCALP Diphenhydramine HCl (Diphenhydramine HCl) 25 Mg Capsule 50 MG PO Q6H PRN for ABX REACTION, CAP Divalproex Sodium (Depakote ER) 500 Mg Tab.er.24h 1000 MG PO BID, TAB TAKES 2 (500MG) TABS Duloxetine HCl (Cymbalta) 60 Mg Capsule.dr 60 MG PO DAILY, CAP Furosemide (Furosemide) 80 Mg Tablet 80 MG PO DAILY, TAB Lactulose (Lactulose) 10 Gm/15 Ml Solution 30 ML PO DAILY PRN for CONSTIPATION-3RD LINE, EA Levetiracetam (Levetiracetam) 1,000 Mg Tablet 1000 MG PO BID, TAB Melatonin (Melatonin) 3 Mg Tablet 3 MG PO HS, TAB Meloxicam (Meloxicam) 15 Mg Tablet 15 MG PO DAILY, TAB Methotrexate Sodium (Methotrexate) 2.5 Mg Tablet 10 MG PO MON, TAB TAKES 4 (2.5MG) TABS Miconazole Nitrate (Lotrimin AF) 90 Gm Powder 1 APPLIC TP Q2H PRN for GAULDING,REDNESS,ITCHING, EA Nystatin (Nystatin) 15 Gm Cream..g. 0 GM TP BID, #1 TUBE Oxybutynin Chloride (Oxybutynin Chloride ER) 15 Mg Tab.er.24 15 MG PO HS, TAB Pantoprazole Sodium (Pantoprazole Sodium) 40 Mg Tablet.dr 40 MG PO DAILY, TAB Polyethylene Glycol 3350 (Miralax) 17 Gm Powd.pack 17 GM PO DAILY PRN for CONSTIPATION-2ND LINE, EACH Pramipexole Di-HCl (Pramipexole Dihydrochloride) 0.5 Mg Tablet 0.5 MG PO TID, #30 TAB (This prescription has been renewed) Prednisolone Acetate (Prednisolone Acetate) 5 Ml Drops.susp 1 DROP OU Q48H, EA Quetiapine Fumarate (Quetiapine Fumarate) 50 Mg Tablet 50 MG PO BID, TAB TAKES 50MG DAILY AND 150MG (100MG + 50MG) AT BEDTIME Quetiapine Fumarate (Quetiapine Fumarate) 100 Mg Tablet 100 MG PO HS, TAB TAKES A 100MG +50MG TO EQUAL 150MG Topiramate (Topiramate) 50 Mg Tablet 50 MG PO BID, TAB Vitamin E (Dl,Tocopheryl Acet) (Vitamin E) 400 Unit Capsule 400 UNIT PO DAILY, CAP Zinc Oxide (Boudreauxs) 28 Gm Oint 1 APPLIC TP EVERY 2 HOURS PRN for GAULDING/REDNESS/ITCHING, TUBE APPLY NEEDED FOR BRIEF CHANGE Lydia Montiel Jul 22, 2020 10:19 LYDIA MONTIEL DO Jul 22, 2020 10:20
--- NOTE | 2020-07-22 10:20 | Discharge Summary ---
Diagnosis/Chief Complaint Date of Admission Jul 18, 2020 at 16:55 Date of Discharge Discharge Date: Jul 22, 2020 Discharge Diagnosis Assessment: s/p fall with right wrist fracture needs NHP failed AL after IRF course Left lower extremity erythema s/p 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 PNA s/p Influenza B h/o TBI Seizures Dementia CAD HTN HLP Anemia Plan: Pain control Sling NHP Left leg USG Abx broad spectrum in meantime 07/20/20: Left leg cellulitis improved UCx still pending Monitoring pain 07/22/20; DC on hold due to inability to urinate Consulting Dr Husain for right arm cast Discharge Summary Discharge Physical Examination Allergies: Coded Allergies: Penicillins (Verified Allergy, Mild, 07/18/20) latex (Verified Allergy, Mild, 07/18/20) Vitals & I&Os Vital Signs Date Time Temp Pulse Resp B/P (MAP) Pulse Ox O2 Delivery O2 Flow Rate FiO2 07/23/20 03:22 36.2 72 18 135/72 (93) 94 Room Air 07/18/20 20:27 21 General Appearance: Alert, Cooperative Respiratory: Clear to Auscultation Cardiovascular: Regular Rate Hospital Course Was the Problem List Reviewed?: Yes Hospital course: Pt had an uneventful hospital course, she was admitted for fall with right wrist fracture. Confusion super-imposed on dementia and mental illness. Pain was controlled, arm cast maintained. Good pain control with Lortab, restarted all of her home medication and she was deemed stable for discharge to a senior care new long-term care. Labs (last 24 hrs) Laboratory Tests 07/18/20 15:00: Urine Color YELLOW, Urine Clarity CLEAR, Urine pH 5.5, Urine Specific [place] 1.015L, Urine Protein NEGATIVE, Urine Glucose (UA) NEGATIVE, Urine Ketones NEGATIVE, Urine Nitrite NEGATIVE, Urine Bilirubin NEGATIVE, Urine Urobilinogen 0.2, Urine Leukocyte Esterase TRACEH, Urine RBC (Auto) NEGATIVE, Urine RBC NONE, Urine WBC 5-10H, Urine Squamous Epithelial Cells 0-2, Urine Crystals NONE, Urine Bacteria MODERATEH, Urine Casts PRESENT, Urine Hyaline Casts 0-2H, Urine Mucus NEGATIVE, Urine Culture Indicated YES 07/18/20 16:37: White Blood Count 11.1H, Red Blood Count 3.68L, Hemoglobin 11.9, Hematocrit 37, Mean Corpuscular Volume 101H, Mean Corpuscular Hemoglobin 32, Mean Corpuscular Hemoglobin Concent 32, Red Cell Distribution Width 16.1H, Platelet Count 193, Mean Platelet Volume 10.4, Immature Granulocyte % (Auto) 17, Neutrophils (%) (Auto) 36L, Lymphocytes (%) (Auto) 20, Monocytes (%) (Auto) 27H, Eosinophils (%) (Auto) 1, Basophils (%) (Auto) 0, Neutrophils # (Auto) 3.9, Lymphocytes # (Auto) 2.2, Monocytes # (Auto) 3.0H, Eosinophils # (Auto) 0.1, Basophils # (Auto) 0.0, Immature Granulocyte # (Auto) 1.8H, Neutrophils % (Manual) 40, Lymphocytes % (Manual) 20, Monocytes % (Manual) 15, Eosinophils % (Manual) 1, Basophils % (Manual) 2, Metamyelocytes % 8, Myelocytes % 8, Band Neutrophils 6, Blood Morphology Comment NORMAL, Sodium Level 139, Potassium Level 3.5L, Chloride Level 106, Carbon Dioxide Level 23, Anion Gap 10, Blood Urea Nitrogen 12, Creatinine 0.97, Estimat Glomerular Filtration Rate 57, BUN/Creatinine Ratio 12, Glucose Level 80, Calcium Level 8.7, Corrected Calcium 9.5, Total Bilirubin 0.4, Aspartate Amino Transf (AST/SGOT) 24, Alanine Aminotransferase (ALT/SGPT) 9, Alkaline Phosphatase 145H, C-Reactive Protein High Sensitivity 6.07H, Total Protein 6.8, Albumin 3.0L 07/18/20 19:05: D-Dimer 2.43H, Lactic Acid Level 0.87 07/19/20 05:00: White Blood Count 9.3, Red Blood Count 3.32L, Hemoglobin 10.7L, Hematocrit 34L, Mean Corpuscular Volume 101H, Mean Corpuscular Hemoglobin 32, Mean Corpuscular Hemoglobin Concent 32, Red Cell Distribution Width 15.9H, Platelet Count 169, Mean Platelet Volume 10.3, Immature Granulocyte % (Auto) 14, Neutrophils (%) (Auto) 40L, Lymphocytes (%) (Auto) 20, Monocytes (%) (Auto) 24H, Eosinophils (%) (Auto) 1, Basophils (%) (Auto) 1, Neutrophils # (Auto) 3.7, Lymphocytes # (Auto) 1.9, Monocytes # (Auto) 2.2H, Eosinophils # (Auto) 0.1, Basophils # (Auto) 0.1, Immature Granulocyte # (Auto) 1.3H, Sodium Level 141, Potassium Level 3.2L, Chloride Level 109H, Carbon Dioxide Level 21, Anion Gap 11, Blood Urea Nitrogen 12, Creatinine 0.83, Estimat Glomerular Filtration Rate > 60, BUN/Creatinine Ratio 14, Glucose Level 74, Calcium Level 8.6, Corrected Calcium 9.8, Total Bilirubin 0.3, Aspartate Amino Transf (AST/SGOT) 29, Alanine Aminotransferase (ALT/SGPT) 12, Alkaline Phosphatase 123, Total Protein 5.5L, Albumin 2.5L 07/20/20 04:30: White Blood Count 8.3, Red Blood Count 3.24L, Hemoglobin 10.4L, Hematocrit 33L, Mean Corpuscular Volume 101H, Mean Corpuscular Hemoglobin 32, Mean Corpuscular Hemoglobin Concent 32, Red Cell Distribution Width 16.1H, Platelet Count 174, Mean Platelet Volume 10.4, Immature Granulocyte % (Auto) 13, Neutrophils (%) (Auto) 34L, Lymphocytes (%) (Auto) 27, Monocytes (%) (Auto) 24H, Eosinophils (%) (Auto) 1, Basophils (%) (Auto) 1, Neutrophils # (Auto) 2.8, Lymphocytes # (Auto) 2.3, Monocytes # (Auto) 2.0H, Eosinophils # (Auto) 0.1, Basophils # (Auto) 0.1, Immature Granulocyte # (Auto) 1.1H, Sodium Level 142, Potassium Level 4.2, Chloride Level 110H, Carbon Dioxide Level 25, Anion Gap 7, Blood Urea Nitrogen 11, Creatinine 0.86, Estimat Glomerular Filtration Rate > 60, BUN/Creatinine Ratio 13, Glucose Level 81, Calcium Level 8.4L, Corrected Calcium 9.6, Total Bilirubin 0.3, Aspartate Amino Transf (AST/SGOT) 81H, Alanine Aminotransferase (ALT/SGPT) 21, Alkaline Phosphatase 158H, Total Protein 5.5L, Albumin 2.5L 07/20/20 17:04: Vancomycin Level Trough 15.1 07/21/20 05:55: Glucometer 64L 07/21/20 06:35: Glucometer 77 07/22/20 04:52: White Blood Count 6.4, Red Blood Count 3.37L, Hemoglobin 10.8L, Hematocrit 35, Mean Corpuscular Volume 104H, Mean Corpuscular Hemoglobin 32, Mean Corpuscular Hemoglobin Concent 31L, Red Cell Distribution Width 16.5H, Platelet Count 166, Mean Platelet Volume 10.7, Immature Granulocyte % (Auto) 15, Neutrophils (%) (Auto) 25L, Lymphocytes (%) (Auto) 34, Monocytes (%) (Auto) 24H, Eosinophils (%) (Auto) 1, Basophils (%) (Auto) 1, Neutrophils # (Auto) 1.6L, Lymphocytes # (Auto) 2.2, Monocytes # (Auto) 1.5H, Eosinophils # (Auto) 0.1, Basophils # (Auto) 0.1, Immature Granulocyte # (Auto) 1.0H, Sodium Level 142, Potassium Level 4.6, Chloride Level 109H, Carbon Dioxide Level 28, Anion Gap 5, Blood Urea Nitrogen 9, Creatinine 0.80, Estimat Glomerular Filtration Rate > 60, BUN/Creatinine Ratio 11, Glucose Level 76, Calcium Level 8.9, Corrected Calcium 10.2H, Total Bilirubin 0.2, Aspartate Amino Transf (AST/SGOT) 37H, Alanine Am inotransferase (ALT/SGPT) 16, Alkaline Phosphatase 145H, Total Protein 5.7L, Albumin 2.4L Microbiology 07/18/20 Urine Culture - Preliminary, Resulted Enterobacter cloacae complex Klebsiella pneumoniae Pending Labs Microbiology Date/Time Source Procedure Growth Status 07/18/20 15:00 Urine Clean Catch Urine Culture - Preliminary Enterobacter cloacae complex Klebsiella pneumoniae Resulted Laboratory Tests 07/18/20 15:00: Urine Color YELLOW, Urine Clarity CLEAR, Urine pH 5.5, Urine Specific [place] 1.015, Urine Protein NEGATIVE, Urine Glucose (UA) NEGATIVE, Urine Ketones NEGATIVE, Urine Nitrite NEGATIVE, Urine Bilirubin NEGATIVE, Urine Urobilinogen 0.2, Urine Leukocyte Esterase TRACE, Urine RBC (Auto) NEGATIVE, Urine RBC NONE, Urine WBC 5-10, Urine Squamous Epithelial Cells 0-2, Urine Crystals NONE, Urine Bacteria MODERATE, Urine Casts PRESENT, Urine Hyaline Casts 0-2, Urine Mucus NEGATIVE, Urine Culture Indicated YES 07/18/20 16:37: White Blood Count 11.1, Red Blood Count 3.68, Hemoglobin 11.9, Hematocrit 37, Mean Corpuscular Volume 101, Mean Corpuscular Hemoglobin 32, Mean Corpuscular Hemoglobin Concent 32, Red Cell Distribution Width 16.1, Platelet Count 193, Mean Platelet Volume 10.4, Immature Granulocyte % (Auto) 17, Neutrophils (%) (Auto) 36, Lymphocytes (%) (Auto) 20, Monocytes (%) (Auto) 27, Eosinophils (%) (Auto) 1, Basophils (%) (Auto) 0, Neutrophils # (Auto) 3.9, Lymphocytes # (Auto) 2.2, Monocytes # (Auto) 3.0, Eosinophils # (Auto) 0.1, Basophils # (Auto) 0.0, Immature Granulocyte # (Auto) 1.8, Neutrophils % (Manual) 40, Lymphocytes % (Manual) 20, Monocytes % (Manual) 15, Eosinophils % (Manual) 1, Basophils % (Manual) 2, Metamyelocytes % 8, Myelocytes % 8, Band Neutrophils 6, Blood Morp hology Comment NORMAL, Sodium Level 139, Potassium Level 3.5, Chloride Level 106, Carbon Dioxide Level 23, Anion Gap 10, Blood Urea Nitrogen 12, Creatinine 0.97, Estimat Glomerular Filtration Rate 57, BUN/Creatinine Ratio 12, Glucose Level 80, Calcium Level 8.7, Corrected Calcium 9.5, Total Bilirubin 0.4, Aspartate Amino Transf (AST/SGOT) 24, Alanine Aminotransferase (ALT/SGPT) 9, Alkaline Phosphatase 145, C-Reactive Protein High Sensitivity 6.07, Total Protein 6.8, Albumin 3.0 07/18/20 19:05: D-Dimer 2.43, Lactic Acid Level 0.87 07/19/20 05:00: White Blood Count 9.3, Red Blood Count 3.32, Hemoglobin 10.7, Hematocrit 34, Mean Corpuscular Volume 101, Mean Corpuscular Hemoglobin 32, Mean Corpuscular Hemoglobin Concent 32, Red Cell Distribution Width 15.9, Platelet Count 169, Mean Platelet Volume 10.3, Immature Granulocyte % (Auto) 14, Neutrophils (%) (Auto) 40, Lymphocytes (%) (Auto) 20, Monocytes (%) (Auto) 24, Eosinophils (%) (Auto) 1, Basophils (%) (Auto) 1, Neutrophils # (Auto) 3.7, Lymphocytes # (Auto) 1.9, Monocytes # (Auto) 2.2, Eosinophils # (Auto) 0.1, Basophils # (Auto) 0.1, Immature Granulocyte # (Auto) 1.3, Sodium Level 141, Potassium Level 3.2, Chloride Level 109, Carbon Dioxide Level 21, Anion Gap 11, Blood Urea Nitrogen 12, Creatinine 0.83, Estimat Glomerular Filtration Rate > 60, BUN/Creatinine Ratio 14, Glucose Level 74, Calcium Level 8.6, Corrected Calcium 9.8, Total Bilirubin 0.3, Aspartate Amino Transf (AST/SGOT) 29, Alanine Aminotransferase (ALT/SGPT) 12, Alkaline Phosphatase 123, Total Protein 5.5, Albumin 2.5 07/20/20 04:30: White Blood Count 8.3, Red Blood Count 3.24, Hemoglobin 10.4, Hematocrit 33, Mean Corpuscular Volume 101, Mean Corpuscular Hemoglobin 32, Mean Corpuscular He moglobin Concent 32, Red Cell Distribution Width 16.1, Platelet Count 174, Mean Platelet Volume 10.4, Immature Granulocyte % (Auto) 13, Neutrophils (%) (Auto) 34, Lymphocytes (%) (Auto) 27, Monocytes (%) (Auto) 24, Eosinophils (%) (Auto) 1, Basophils (%) (Auto) 1, Neutrophils # (Auto) 2.8, Lymphocytes # (Auto) 2.3, Monocytes # (Auto) 2.0, Eosinophils # (Auto) 0.1, Basophils # (Auto) 0.1, Immature Granulocyte # (Auto) 1.1, Sodium Level 142, Potassium Level 4.2, Chloride Level 110, Carbon Dioxide Level 25, Anion Gap 7, Blood Urea Nitrogen 11, Creatinine 0.86, Estimat Glomerular Filtration Rate > 60, BUN/Creatinine Ratio 13, Glucose Level 81, Calcium Level 8.4, Corrected Calcium 9.6, Total Bilirubin 0.3, Aspartate Amino Transf (AST/SGOT) 81, Alanine Aminotransferase (ALT/SGPT) 21, Alkaline Phosphatase 158, Total Protein 5.5, Albumin 2.5 07/20/20 17:04: Vancomycin Level Trough 15.1 07/21/20 05:55: Glucometer 64 07/21/20 06:35: Glucometer 77 07/22/20 04:52: White Blood Count 6.4, Red Blood Count 3.37, Hemoglobin 10.8, Hematocrit 35, Mean Corpuscular Volume 104, Mean Corpuscular Hemoglobin 32, Mean Corpuscular Hemoglobin Concent 31, Red Cell Distribution Width 16.5, Platelet Count 166, Mean Platelet Volume 10.7, Immature Granulocyte % (Auto) 15, Neutrophils (%) (Auto) 25, Lymphocytes (%) (Auto) 34, Monocytes (%) (Auto) 24, Eosinophils (%) (Auto) 1, Basophils (%) (Auto) 1, Neutrophils # (Auto) 1.6, Lymphocytes # (Auto) 2.2, Monocytes # (Auto) 1.5, Eosinophils # (Auto) 0.1, Basophils # (Auto) 0.1, Immature Granulocyte # (Auto) 1.0, Sodium Level 142, Potassium Level 4.6, Chloride Level 109, Carbon Dioxide Level 28, Anion Gap 5, Blood Urea Nitrogen 9, Creatinine 0.80, Estimat Glomerular Filtration Rate > 60, BUN/Creatinine Ratio 11, Glucose Level 76, Calcium Level 8.9, Corrected Calcium 10.2, Total Bilirubin 0.2, Aspartate Amino Transf (AST/SGOT) 37, Alanine Aminotransferase (ALT/SGPT) 16, Alkaline Phosphatase 145, Total Protein 5.7, Albumin 2.4 Discharge Home Medications: Active Scripts Active Klor-Con 10 (Potassium Chloride) 10 Meq Tablet.er 10 Meq PO BID 60 Days Mirtazapine 15 Mg Tab.rapdis 15 Mg PO HS 30 Days Hydrocodone-Acetamin 5-325 mg (Hydrocodone/Acetaminophen) 1 Each Tablet 1 Tab PO Q4H PRN Enoxaparin Sodium 40 Mg/0.4 Ml Syringe 40 Mg SC Q24H 14 Days Fluconazole 100 Mg Tablet 100 Mg PO DAILY 3 Days Pramipexole Dihydrochloride (Pramipexole Di-HCl) 0.5 Mg Tablet 0.5 Mg PO TID Nystatin 15 Gm Cream..g. 0 Gm TP BID Ventolin Hfa (Albuterol Sulfate) 18 Gm Hfa.aer.ad 0 Gm IH Q2HR PRN Reported Boudreauxs (Zinc Oxide) 28 Gm Oint 1 Applic TP EVERY 2 HOURS PRN APPLY NEEDED FOR BRIEF CHANGE Tessalon Perles (Benzonatate) 100 Mg Capsule 100 Mg PO Q8H PRN Lotrimin AF (Miconazole Nitrate) 90 Gm Powder 1 Applic TP Q2H PRN Albuterol Sulfate 0.63 Mg/3 Ml Vial.neb 0.63 Mg IH Q2H PRN Methotrexate (Methotrexate Sodium) 2.5 Mg Tablet 10 Mg PO MON TAKES 4 (2.5MG) TABS Furosemide 80 Mg Tablet 80 Mg PO DAILY Quetiapine Fumarate 100 Mg Tablet 100 Mg PO HS TAKES A 100MG +50MG TO EQUAL 150MG Tylenol (Acetaminophen) 325 Mg Capsule 650 Mg PO Q6H PRN Quetiapine Fumarate 50 Mg Tablet 50 Mg PO BID TAKES 50MG DAILY AND 150MG (100MG + 50MG) AT BEDTIME Depakote ER (Divalproex Sodium) 500 Mg Tab.er.24h 1,000 Mg PO BID TAKES 2 (500MG) TABS Diphenhydramine HCl 25 Mg Capsule 50 Mg PO Q6H PRN Clobetasol Propionate 50 Ml Solution 1 Applic TP BID APPLY TO THE SCALP Clobetasol Propionate 118 Ml Shampoo 1 Applic TOP Q72H Vitamin E (Vitamin E (Dl,Tocopheryl Acet)) 400 Unit Capsule 400 Unit PO DAILY Vitamin C (Ascorbic Acid) 1,000 Mg Tablet 1,000 Mg PO DAILY Topiramate 50 Mg Tablet 50 Mg PO BID Pantoprazole Sodium 40 Mg Tablet.dr 40 Mg PO DAILY Miralax (Polyethylene Glycol 3350) 17 Gm Powd.pack 17 Gm PO DAILY PRN Melatonin 3 Mg Tablet 3 Mg PO HS Lactulose 10 Gm/15 Ml Solution 30 Ml PO DAILY PRN Cymbalta (Duloxetine HCl) 60 Mg Capsule.dr 60 Mg PO DAILY Levetiracetam 1,000 Mg Tablet 1,000 Mg PO BID Prednisolone Acetate 5 Ml Drops.susp 1 Drop OU Q48H Oxybutynin Chloride ER (Oxybutynin Chloride) 15 Mg Tab.er.24 15 Mg PO HS Meloxicam 15 Mg Tablet 15 Mg PO DAILY Aspirin EC (Aspirin) 81 Mg Tablet.dr 81 Mg PO DAILY Instructions to patient/family Please see electronic discharge instructions given to patient. Clinical Quality Measures DVT/VTE Risk/Contraindication: Risk Factor Score Per Nursin DADA SANDOVAL DO Jul 22, 2020 10:20
--- NOTE | 2020-07-22 10:40 | Progress Note ---
ANGIE BALBUENA MED STUDENT 07/22/20 1040: Progress Note Patient is a 70yo F who presented to the ER on 07/18/20 via EMS for an unwitnessed fall. Patient reported falling on her right side, and was experiencing pain on her right head, shoulder, elbow, and wrist. Patient had recently been discharged from the IRF at [facility] where she was aided in her recovery from COVID-19 associated pneumonia in June. She was discharged from IRF in hopes that she could continue residing in AL care rather than NH. Patient was found to have a UTI in the ED and she was given Rocephin and started on Keflex for treatment. With the patients fractures, UTI, and delirium it was decided in her best interest to admit her so she could be cared for until a NH placement could be found for her. During her stay, pain was controlled, Abx continued, and home meds restarted. Patients pain was comfortable during her stay and closely monitored due to her delirium and fall risk. With her failing to thrive in her return to AL after her stay in the IRF, it was decided that placement in a NH facility would be in her best interests. Patient will continue to be cared for and treated at [facility] until a placement is found. LYDIA SANDOVAL DO 07/23/20 0545: Supervisory-Addendum Brief Verification & Attestation Participated in pt care: history, MDM, physical Personally performed: exam, history, MDM, supervision of care Care discussed with: Medical Student Procedures: n/a Results interpretation: Verified all documentation Verification and Attestation of Medical Student E/M Service A medical student performed and documented this service in my presence. I reviewed and verified all information documented by the medical student and made modifications to such information, when appropriate. I personally performed the physical exam and medical decision making. Lydia Sandoval, Jul 23, 2020,05:45 ANGIE BALBUENA MED STUDENT Jul 22, 2020 10:40 LYDIA SANDOVAL DO Jul 23, 2020 05:45
--- NOTE | 2020-07-22 10:46 | Physical Therapy Daily Note ---
PT Daily Note-Current Subjective Patient very confused. Agrees to PT. Mental Status Patient Orientation: Confused Transfers SCALE: Activities may be completed with or without assistive devices. 2-Dmwbstlvca-mgwstdw completes the activity by him/herself with no assistance from a helper. 5-Set-up or Clean-up Assistance-helper sets up or cleans up; patient completes activity. [place] assists only prior to or following the activity. 4-Supervision or Touching Assistance-helper provides verbal cues and/or touching/steadying and/or contact guard assistance as patient completes activity. Assistance may be provided throughout the activity or intermittently. 3-Partial/Moderate Assistance-helper does LESS THAN HALF the effort. [place] lifts, holds or supports trunk or limbs, but provides less than half the effort. 2-Substantial/Maximal Assistance-helper does MORE THAN HALF the effort. [place] lifts or holds trunk or limbs and provides more than half the effort. 8-Xmclhujlz-dsyhwy does ALL the effort. Patient does none of the effort to complete the activity. Or, the assistance of 2 or more helpers is required for the patient to complete the activity. If activity was not attempted, code reason: 7-Patient Refused. 9-Not Applicable-not attempted and the patient did not perform the activity before the current illness, exacerbation or injury. 10-Not Attempted due to Environmental Limitations-(lack of equipment, weather restraints, etc.). 88-Not Attempted due to Medical Conditions or Safety Concerns. Sit to Stand (QC): 3 Toilet Transfer (QC): 3 Gait Training Does the Patient Walk?: Yes Distance: 175' Walk 10 feet (QC): 2 Walk 50 ft with 2 Turns(QC): 2 Walk 150 ft (QC): 2 Gait Persons Needed: 1 Gait Assistive Device: None left HOG SAWYER due to right UE fracture/shuffle gait sequence Exercises Seated Therapy Exercises: Ankle pumps, Long arc quads Seated Reps: 12 Assessment Patient tolerated treatment well and remains up in recliner with needs met and chair alarm activated. PT Fdc Goals Fdc Goals PT [employer] Analyst Goals Time Frame: Jul 26, 2020 Roll Left & Right (QC): 4 Sit to Lying (QC): 4 Lying-Sitting on Side/Bed(QC): 4 Sit to Stand (QC): 4 Chair/Wnm-fo-Ffibx Xfer(QC): 4 Walk 10 feet (QC): 4 PT Plan Treatment/Plan Treatment Plan: Continue Plan of Care Treatment Plan: Bed Mobility, Education, Functional Activity Tang, Functional Strength, Gait, Safety, Therapeutic Exercise, Transfers Treatment Duration: Jul 26, 2020 Frequency: 6 times per week Estimated Hrs Per Day: .25 hour per day Patient and/or Family Agrees t: Yes Time/GCodes Time In: 906 Time Out: 922 Total Billed Treatment Time: 16 Total Billed Treatment 1 visit FA 16 min KOREY LIN PT Jul 22, 2020 10:46
--- NOTE | 2020-07-22 11:02 | NUR ---
CM/SS finalized discharge. Plan: Patient will discharge today 07/22 to [facility]. Transportation is set up for 1:45 p.m. VCV: CM/SS spoke with Myrtle at the [facility] to set up pick up driver time and inform her of planned discharge. CM/SS faxed updated clinical, discharge orders, and script. DPOA: CM/SS contacted the patient's brother Addy to inform him if discharge and pick up driver time. He verbalized understanding. CM/SS answered questions best to ability. No further needs at this time. Addendum: 07/22/20 at 1528 by AQUILINO CROUCH The patient was having trouble urinating and had increased swelling in the arm. It was decided to keep the patient for one more day. JA/SS notified the facility and
--- NOTE | 2020-07-22 11:48 | Occupational Ther Daily Note ---
OT Current Status-Daily Note Subjective Pt seated in recliner, agreeable to OT tx. Pt askes OT to check and see if someone lived nearby, OT asked pt where she thought she was and pt replied "[facility]". OT redirected pt to being admitted to the hospital. Mental Status/Objective Patient Orientation: Person, Confused Attachments: Other-See Comments (RUE sling & splint) ADL-Treatment Therapy Code Descriptions/Definitions Functional [place] Measure: 0=Not Assessed/NA 4=Minimal Assistance 1=Total Assistance 5=Supervision or Setup 2=Maximal Assistance 6=Modified [place] 3=Moderate Assistance 7=Complete IndependenceSCALE: Activities may be completed with or without assistive devices. 5-Nzcudutvca-oykswek completes the activity by him/herself with no assistance from a helper. 5-Set-up or Clean-up Assistance-helper sets up or cleans up; patient completes activity. [place] assists only prior to or following the activity. 4-Supervision or Touching Assistance-helper provides verbal cues and/or touching/steadying and/or contact guard assistance as patient completes activity. Assistance may be provided throughout the activity or intermittently. 3-Partial/Moderate Assistance-helper does LESS THAN HALF the effort. [place] lifts, holds or supports trunk or limbs, but provides less than half the effort. 2-Substantial/Maximal Assistance-helper does MORE THAN HALF the effort. [place] lifts or holds trunk or limbs and provides more than half the effort. 6-Dbdpwxccs-rsjjou does ALL the effort. Patient does none of the effort to complete the activity. Or, the assistance of 2 or more helpers is required for the patient to complete the activity. If activity was not attempted, code reason: 7-Patient Refused. 9-Not Applicable-not attempted and the patient did not perform the activity before the current illness, exacerbation or injury. 10-Not Attempted due to Environmental Limitations-(lack of equipment, weather restraints, etc.). 88-Not Attempted due to Medical Conditions or Safety Concerns. Other Treatment Pt seated in recliner, agreeable to OT tx. Pt able to brush hair with mod A. OT placed comb in pt's L hand and pt able to comb L side and top of hair, required assistance with R side of head and back of hair. OT provided pt with washcloth to wash her face, pt able to wash L side of face, forehead and chin, OT assisted pt with R side of face. OT educated pt on importance of exercising R fingers in order to decrease swelling, pt performed x15 reps finger flexion/extension BUEs. Post tx, pt seated in recliner, call light in reach and all needs met. Education OT Patient Education: Correct positioning, Energy conservation, Exercise program, Modified ADL techniques, Progress toward Goal/Update tx plan, Purpose of tx/functional activities Teaching Recipient: Patient Teaching Methods: Demonstration, Discussion Response to Teaching: Return Demonstration, Reinforcement Needed OT Long-Term Goals Checker In Goals Time Frame: Jul 31, 2020 Eating (QC): 5 Oral Hygiene (QC): 5 Toileting Hygiene (QC): 3 Shower/Bathe Self (QC): 3 Upper Body Dressing (QC): 3 Lower Body Dressing (QC): 3 On/Off Footwear (QC): 3 1=Demonstrate adherence to instructed precautions during ADL tasks. 2=Patient will verbalize/demonstrate understanding of assistive devices/modifications for ADL. 3=Patient will improve strength/tolerance for activity to enable patient to perform ADL's. OT Education/Plan Problem List/Assessment Assessment: Decreased Activ Tolerance, Decreased Safety Aware, Decreased UE Strength, Impaired I ADL's, Impaired Self-Care Skills, Restricted Funct UE ROM Discharge Recommendations Plan/Recommendations: Continue POC Treatment Plan/Plan of Care Patient would benefit from OT for education, treatment and training to promote independence in ADL's, mobility, safety and/or upper extremity function for ADL's. Plan of Care: ADL Retraining, Functional Mobility, UE Funct Exercise/Act Treatment Duration: Jul 31, 2020 Frequency: 5 times per week Estimated Hrs Per Day: .25 hour per day Rehab Potential: Fair Time/GCodes Start Time: 11:34 Stop Time: 11:43 Total Time Billed (hr/min): 9 Billed Treatment Time 1, ADL WADE ALATORRE OT Jul 22, 2020 11:48
[2020-07-22 12:14] VITALS: BP 121/81
[2020-07-22] MEDS: HYDROcodone/APAP 5 MG/325 MG (LORTAB) TAB PO PRN ×2 (12:37→17:23)
--- NOTE | 2020-07-22 13:44 | NUR ---
PT UNABLE TO URINATE, BLADDER SCANNED WITH >399 PRESENT. PT NOTED TO HAVE INCREASED SWELLING TO RIGHT HAND. ARM HAS BEEN ELEVATED. DOPPLER USED AND PULSE PRESENT. DR SANDOVAL NOTIFIED. ORDER RECEIVED TO CONSULT DR SAMUEL AND DR ISLAS. DISCHARGE PLACED ON HOLD
--- NOTE | 2020-07-22 14:20 | NUR ---
DR SAMUEL NOTIFIED OF CONSULT. ORDER RECEIVED TO STRAIT CATH PT NOW AND TO BLADDER SCAN DAILY AND PRN, STRAIT CATH IF >350. NEW ORDERS FOR MEDICATIONS PLACED IN EMAR.
--- NOTE | 2020-07-22 14:25 | NUR ---
CALLED DR ISLAS FOR CONSULT NO ANSWER LEFT MESSAGE FOR CONSULT
--- NOTE | 2020-07-22 15:20 | NUR ---
PT STRAIT CATH AT THIS TIME, HAD 500ML OF CLOUDY DARK EDGARDO URINE.
[2020-07-22 16:30] VITALS: BP 127/63
[2020-07-22] MEDS: VANCOMYCIN 1250 MG/NS 250 ML IVPB IV SCH ×2 (17:20)
--- NOTE | 2020-07-22 17:55 | NUR ---
"RD ASSESSMENT PMHx: CAD; hypercholesterolemia; dementia; seizure disorder; TBI; GERD; chronic constipation/diarrhea; irritable bowel; PT INTERACTION: Pt was awake and pleasant during nutrition consult for MST score. Note pt has hx of dementia, per chart review. Pt states current appetite is good. Note avg PO intake 35% x2d, per chart review. Pt states following a regular diet at home, and has no issues with chewing/swallowing food. Pt states no recent issues with nausea, vomiting, constipation, or diarrhea. Note last BM was 07/21, and pt currently on bowel regimen of colace BID, senna BID, and miralax BID, per chart review. Pt states no recent wt changes. Note recent 7# wt loss x1mon, per chart review. Upon visual assessment, pt appears to be well nourished with no visible signs of muscle/fat wasting and a BMI of 32.5 (Obese class I for age). Given PO intake, wt hx, and visual assessment, pt does not meet criteria for malnutrition per ASPEN guidelines. Est. kcal needs: 9119-6545 kcal | 15-20 kcal/kg Est. Pro needs: 69-86 g Pro | 0.8-1.0 g Pro/kg PES STATEMENT: Inadequate oral intake (NI-2.1) related to loss of appetite, as evidenced by pt interview, and avg PO intake 35% x2d. INTERVENTION: Continue with current diet order of DYS3 Advanced/Ground Meat diet. Continue with current supplementation order of Ensure Clear with meals TID, for increased kcal intake. Provides 250 kcal and 8 g Pro per serving. Will continue to follow and reassess as pt needs, intake, and status change. Peggy PASTOR MS RD LD [phone] cell"
[2020-07-22] MEDS ORDERED: TAMSULOSIN 0.4 MG (FLOMAX) CAP PO SCH (18:00)
[2020-07-22] MEDS: MIRTAZAPINE 15 MG (REMERON) TAB PO SCH (20:30)
[2020-07-22] MEDS: ENOXAPARIN 40 MG/0.4 ML (LOVENOX) SYR SC SCH (20:30)
[2020-07-22 20:41] VITALS: BP 120/57
[2020-07-22 23:17] VITALS: BP 117/52
[2020-07-23] MEDS: HYDROcodone/APAP 5 MG/325 MG (LORTAB) TAB PO PRN ×2 (03:09→11:16)
[2020-07-23 03:22] VITALS: BP 135/72
[2020-07-23] MEDS: PANTOPRAZOLE 40 MG (PROTONIX) TAB PO SCH (06:19)
[2020-07-23] MEDS: OFLOXACIN 0.3% OPHTH SOLN 5 ML OS SCH ×3 (06:20→12:59)
[2020-07-23 06:31] LABS: HEMOGLOBIN 11.5 g/dL (11.5-16.0); MEAN PLATELET VOLUME 10.4 fL (9.0-12.2); WHITE BLOOD COUNT 6.4 10^3/uL (4.3-11.0)
[2020-07-23 06:39] LABS: ALBUMIN 2.7 GM/DL (3.2-4.5)
[2020-07-23 06:40] LABS: CHLORIDE 105 MMOL/L (98-107); POTASSIUM 4.5 MMOL/L (3.6-5.0); SODIUM 139 MMOL/L (135-145)
[2020-07-23 06:41] LABS: CALCIUM 9.1 MG/DL (8.5-10.1)
[2020-07-23 06:42] LABS: GLUCOSE 75 MG/DL (70-105); TOTAL PROTEIN 6.2 GM/DL (6.4-8.2)
[2020-07-23 06:43] LABS: CARBON DIOXIDE 28 MMOL/L (21-32)
[2020-07-23 06:44] LABS: BILIRUBIN,TOTAL 0.3 MG/DL (0.1-1.0)
[2020-07-23 06:45] LABS: ALKALINE PHOSPHATASE 154 U/L (40-136)
[2020-07-23 06:46] LABS: CREATININE SERUM 0.83 MG/DL (0.60-1.30); GFR ESTIMATED > 60
[2020-07-23 06:47] LABS: BUN/CREATININE RATIO 8
[2020-07-23 06:48] LABS: ALANINE AMINOTRANSFERASE 15 U/L (0-55)
[2020-07-23 08:11] VITALS: BP 135/72
--- NOTE | 2020-07-23 08:58 | Occupational Ther Daily Note ---
OT Current Status-Daily Note Subjective Pt seated in recliner, agreeable to OT tx. When asked pt states she could recall hand exercises performed yesterday but pt unable to demo to OT. Mental Status/Objective Patient Orientation: Person, Confused Attachments: Other-See Comments (RUE splint and sling) ADL-Treatment Therapy Code Descriptions/Definitions Functional [place] Measure: 0=Not Assessed/NA 4=Minimal Assistance 1=Total Assistance 5=Supervision or Setup 2=Maximal Assistance 6=Modified [place] 3=Moderate Assistance 7=Complete IndependenceSCALE: Activities may be completed with or without assistive devices. 8-Xfugacfsgd-duytosm completes the activity by him/herself with no assistance from a helper. 5-Set-up or Clean-up Assistance-helper sets up or cleans up; patient completes activity. [place] assists only prior to or following the activity. 4-Supervision or Touching Assistance-helper provides verbal cues and/or touchin g/steadying and/or contact guard assistance as patient completes activity. Assistance may be provided throughout the activity or intermittently. 3-Partial/Moderate Assistance-helper does LESS THAN HALF the effort. [place] lifts, holds or supports trunk or limbs, but provides less than half the effort. 2-Substantial/Maximal Assistance-helper does MORE THAN HALF the effort. [place] lifts or holds trunk or limbs and provides more than half the effort. 5-Zftpcqzdg-blaazm does ALL the effort. Patient does none of the effort to complete the activity. Or, the assistance of 2 or more helpers is required for the patient to complete the activity. If activity was not attempted, code reason: 7-Patient Refused. 9-Not Applicable-not attempted and the patient did not perform the activity before the current illness, exacerbation or injury. 10-Not Attempted due to Environmental Limitations-(lack of equipment, weather restraints, etc.). 88-Not Attempted due to Medical Conditions or Safety Concerns. Eating (QC): 5 (assistance opening containers. Pt then able to eat oatmeal and eggs independently.) Other Treatment Pt seated in recliner, agreeable to OT tx. OT asked pt if she remembered UE exercises performed yesterday, she states yes but unable to demo to OT. In order to decrease swelling in R fingers and increase functional use of RUE, pt completed x15 reps finger flexion/extension. Pt required assistance opening containers at breakfast, OT opened oatmeal and set up tray for pt. She was then able to eat independently. OT noted pt's chair alarm beeping, OT replaced batteries with new batteries. Post tx, pt seated in recliner eating breakfast, chair alarm on, call light in reach and all needs met. Education OT Patient Education: Correct positioning, Modified ADL techniques, Progress toward Goal/Update tx plan, Purpose of tx/functional activities Teaching Recipient: Patient Teaching Methods: Discussion Response to Teaching: Verbalize Understanding, Reinforcement Needed OT Dish Person Goals Dish Person Goals Time Frame: Jul 31, 2020 Eating (QC): 5 Oral Hygiene (QC): 5 Toileting Hygiene (QC): 3 Shower/Bathe Self (QC): 3 Upper Body Dressing (QC): 3 Lower Body Dressing (QC): 3 On/Off Footwear (QC): 3 1=Demonstrate adherence to instructed precautions during ADL tasks. 2=Patient will verbalize/demonstrate understanding of assistive devices/modifications for ADL. 3=Patient will improve strength/tolerance for activity to enable patient to perform ADL's. OT Education/Plan Problem List/Assessment Assessment: Decreased Activ Tolerance, Decreased UE Strength, Impaired Cognition, Impaired I ADL's, Impaired Self-Care Skills, Restricted Funct UE ROM Discharge Recommendations Plan/Recommendations: Continue POC Treatment Plan/Plan of Care Patient would benefit from OT for education, treatment and training to promote independence in ADL's, mobility, safety and/or upper extremity function for ADL's. Plan of Care: ADL Retraining, Functional Mobility, UE Funct Exercise/Act Treatment Duration: Jul 31, 2020 Frequency: 5 times per week Estimated Hrs Per Day: .25 hour per day Rehab Potential: Fair Time/GCodes Start Time: 08:14 Stop Time: 08:25 Total Time Billed (hr/min): 11 Billed Treatment Time 1, ADL WADE ALATORRE OT Jul 23, 2020 08:58
[2020-07-23] MEDS: fluCOnazole (DIFLUCAN) 100 MG TAB PO SCH (09:07)
[2020-07-23] MEDS: DIVALPROEX EXT RELEASE 500 MG (DEPAKOTE ER) TAB PO SCH (09:07)
[2020-07-23] MEDS: LEVETIRACETAM 1,000 MG (KEPPRA) TABLET PO SCH (09:07)
[2020-07-23] MEDS: DULoxetine 30 MG (CYMBALTA) CAP PO SCH (09:07)
[2020-07-23] MEDS: toPIRamate 25 MG (TOPAMAX) TAB PO SCH (09:07)
[2020-07-23] MEDS: ASPIRIN E.C. 81 MG (ECOTRIN) TAB PO SCH (09:07)
[2020-07-23] MEDS: PRAMIPEXOLE 0.5 MG TAB (MIRAPEX) PO SCH ×2 (09:07→12:59)
[2020-07-23] MEDS: KCL 10 MEQ TAB (MICRO K) PO SCH (09:07)
[2020-07-23] MEDS: polyethylene glycoL POWDER 17 GM (MIRALAX) PACK PO SCH (09:08)
[2020-07-23] MEDS: SENNA W/DOCUSATE (SENOKOT S) TABLET PO SCH (09:08)
[2020-07-23] MEDS: cefTRIAXone FOR IV USE 1,000 MG in WATER (STERILE) FOR INJECTION 10 ML IV SCH (09:09)
[2020-07-23] MEDS: NYSTATIN CREAM (MYCOSTATIN) 30 GM TUBE TP SCH (09:09)
[2020-07-23] MEDS: MICONAZOLE 2% POWDER (DESENEX AF) 90 GM TOP SCH (09:09)
[2020-07-23] MEDS: ZINC OXIDE 16% OINT (BUTT PASTE) 57 GM TUBE TOP PRN (09:10)
[2020-07-23] MEDS: prednisoLONE 1% OPTH (PRED FORTE) 5 ML BTL OU SCH (09:10)
--- NOTE | 2020-07-23 09:54 | Physical Therapy Daily Note ---
PT Daily Note-Current Subjective Patient on commode via nursing. Agrees to PT. Mental Status Patient Orientation: Confused Transfers SCALE: Activities may be completed with or without assistive devices. 1-Jyaoyyztly-uvwiwpk completes the activity by him/herself with no assistance f rom a helper. 5-Set-up or Clean-up Assistance-helper sets up or cleans up; patient completes activity. [place] assists only prior to or following the activity. 4-Supervision or Touching Assistance-helper provides verbal cues and/or touching/steadying and/or contact guard assistance as patient completes activity. Assistance may be provided throughout the activity or intermittently. 3-Partial/Moderate Assistance-helper does LESS THAN HALF the effort. [place] lifts, holds or supports trunk or limbs, but provides less than half the effort. 2-Substantial/Maximal Assistance-helper does MORE THAN HALF the effort. [place] lifts or holds trunk or limbs and provides more than half the effort. 6-Liukbnhxh-jvixud does ALL the effort. Patient does none of the effort to complete the activity. Or, the assistance of 2 or more helpers is required for the patient to complete the activity. If activity was not attempted, code reason: 7-Patient Refused. 9-Not Applicable-not attempted and the patient did not perform the activity before the current illness, exacerbation or injury. 10-Not Attempted due to Environmental Limitations-(lack of equipment, weather restraints, etc.). 88-Not Attempted due to Medical Conditions or Safety Concerns. Sit to Stand (QC): 3 Chair/Jyd-hp-Roryc Xfer(QC): 3 Gait Training Does the Patient Walk?: Yes Distance: 175' Walk 10 feet (QC): 2 Walk 50 ft with 2 Turns(QC): 2 Walk 150 ft (QC): 2 Gait Persons Needed: 1 Gait Assistive Device: None CONTACT ASSEMBLER due to right wrist fracture/cast. ER left LE/shuffle gait sequence Assessment Patient is up in recliner with needs met. Plan dismissal to [place] on this date per report. 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 PT Retirement Goals Time Frame: Jul 26, 2020 Roll Left & Right (QC): 4 Sit to Lying (QC): 4 Lying-Sitting on Side/Bed(QC): 4 Sit to Stand (QC): 4 Chair/Exl-vo-Hwzam Xfer(QC): 4 Walk 10 feet (QC): 4 PT Plan Treatment/Plan Treatment Plan: Continue Plan of Care Treatment Plan: Bed Mobility, Education, Functional Activity Tang, Functional Strength, Gait, Safety, Therapeutic Exercise, Transfers Treatment Duration: Jul 26, 2020 Frequency: 6 times per week Estimated Hrs Per Day: .25 hour per day Patient and/or Family Agrees t: Yes Time/GCodes Time In: 905 Time Out: 915 Total Billed Treatment Time: 10 Total Billed Treatment 1 visit GT 10 min KOREY LIN PT Jul 23, 2020 09:54
[2020-07-23] MEDS ORDERED: BTH10T PO (09:57)
[2020-07-23] MEDS ORDERED: TMSL.4C PO (09:57)
--- NOTE | 2020-07-23 09:57 | Discharge Summary ---
Diagnosis/Chief Complaint Date of Admission Jul 18, 2020 at 16:55 Date of Discharge Discharge Date: Jul 23, 2020 Discharge Diagnosis Fall Right wrist fracture Dementia Mental illness Seizure d/o Discharge Summary Discharge Physical Examination Allergies: Coded Allergies: Penicillins (Verified Allergy, Mild, 07/18/20) latex (Verified Allergy, Mild, 07/18/20) Vitals & I&Os Vital Signs Date Time Temp Pulse Resp B/P (MAP) Pulse Ox O2 Delivery O2 Flow Rate FiO2 07/23/20 14:55 36.2 72 18 135/72 94 Room Air 07/18/20 20:27 21 General Appearance: Alert, Cooperative Respiratory: Clear to Auscultation Cardiovascular: Regular Rate Hospital Course Was the Problem List Reviewed?: Yes Patient is a 70yo F who presented to the ER on 07/18/20 via EMS for an unwitnessed fall. Patient reported falling on her right side, and was experiencing pain on her right head, shoulder, elbow, and wrist. Patient had recently been discharged from the IRF at [facility] where she was aided in her recovery from COVID-19 associated pneumonia in June. She was discharged from IRF in hopes that she could continue residing in AL care rather than NH. Patient was found to have a UTI in the ED and she was given Rocephin and started on Keflex for treatment. With the patients fractures, UTI, and delirium it was decided in her best interest to admit her so she could be cared for until a NH placement could be found for her. During her stay, pain was controlled, Abx continued, and home meds restarted. Patients pain was comfortable during her stay and closely monitored due to her delirium and fall risk. With her failing to thrive in her return to AL after her stay in the IRF, it was decided that placement in a NH facility would be in her best interests. Patient will continue to be cared for and treated at [facility] until a placement is found. Hospital Course: Pt had an uneventful hospital course. She was delayed DC to [facility] because she could not urinate so Dr. Rivero was able to stop the Oxybutin. She was able to void with pretty good results. Flomax and Urocholine started and she was deemed stable for DC at this time. See previous note yesterday for hospital course. Labs (last 24 hrs) Laboratory Tests 07/18/20 15:00: Urine Color YELLOW, Urine Clarity CLEAR, Urine pH 5.5, Urine Specific Badger 1.015L, Urine Protein NEGATIVE, Urine Glucose (UA) NEGATIVE, Urine Ketones NEGATIVE, Urine Nitrite NEGATIVE, Urine Bilirubin NEGATIVE, Urine Urobilinogen 0.2, Urine Leukocyte Esterase TRACEH, Urine RBC (Auto) NEGATIVE, Urine RBC NONE, Urine WBC 5-10H, Urine Squamous Epithelial Cells 0-2, Urine Crystals NONE, Urine Bacteria MODERATEH, Urine Casts PRESENT, Urine Hyaline Casts 0-2H, Urine Mucus NEGATIVE, Urine Culture Indicated YES 07/18/20 16:37: White Blood Count 11.1H, Red Blood Count 3.68L, Hemoglobin 11.9, Hematocrit 37, Mean Corpuscular Volume 101H, Mean Corpuscular Hemoglobin 32, Mean Corpuscular Hemoglobin Concent 32, Red Cell Distribution Width 16.1H, Platelet Count 193, Mean Platelet Volume 10.4, Immature Granulocyte % (Auto) 17, Neutrophils (%) (Auto) 36L, Lymphocytes (%) (Auto) 20, Monocytes (%) (Auto) 27H, Eosinophils (%) (Auto) 1, Basophils (%) (Auto) 0, Neutrophils # (Auto) 3.9, Lymphocytes # (Auto) 2.2, Monocytes # (Auto) 3.0H, Eosinophils # (Auto) 0.1, Basophils # (Auto) 0.0, Immature Granulocyte # (Auto) 1.8H, Neutrophils % (Manual) 40, Lymphocytes % (Manual) 20, Monocytes % (Manual) 15, Eosinophils % (Manual) 1, Basophils % (Manual) 2, Metamyelocytes % 8, Myelocytes % 8, Band Neutrophils 6, Blood Morphology Comment NORMAL, Sodium Level 139, Potassium Level 3.5L, Chloride Level 106, Carbon Dioxide Level 23, Anion Gap 10, Blood Urea Nitrogen 12, Creatinine 0.97, Estimat Glomerular Filtration Rate 57, BUN/Creatinine Ratio 12, Glucose Level 80, Calcium Level 8.7, Corrected Calcium 9.5, Total Bilirubin 0.4, Aspartate Amino Transf (AST/SGOT) 24, Alanine Aminotransferase (ALT/SGPT) 9, Alkaline Phosphatase 145H, C-Reactive Protein High Sensitivity 6.07H, Total Protein 6.8, Albumin 3.0L 07/18/20 19:05: D-Dimer 2.43H, Lactic Acid Level 0.87 07/19/20 05:00: White Blood Count 9.3, Red Blood Count 3.32L, Hemoglobin 10.7L, Hematocrit 34L, Mean Corpuscular Volume 101H, Mean Corpuscular Hemoglobin 32, Mean Corpuscular Hemoglobin Concent 32, Red Cell Distribution Width 15.9H, Platelet Count 169, Mean Platelet Volume 10.3, Immature Granulocyte % (Auto) 14, Neutrophils (%) (Auto) 40L, Lymphocytes (%) (Auto) 20, Monocytes (%) (Auto) 24H, Eosinophils (%) (Auto) 1, Basophils (%) (Auto) 1, Neutrophils # (Auto) 3.7, Lymphocytes # (Auto) 1.9, Monocytes # (Auto) 2.2H, Eosinophils # (Auto) 0.1, Basophils # (Auto) 0.1, Immature Granulocyte # (Auto) 1.3H, Sodium Level 141, Potassium Level 3.2L, Chloride Level 109H, Carbon Dioxide Level 21, Anion Gap 11, Blood Urea Nitrogen 12, Creatinine 0.83, Estimat Glomerular Filtration Rate > 60, BUN/Creatinine Ratio 14, Glucose Level 74, Calcium Level 8.6, Corrected Calcium 9.8, Total Bilirubin 0.3, Aspartate Amino Transf (AST/SGOT) 29, Alanine Aminotransferase (ALT/SGPT) 12, Alkaline Phosphatase 123, Total Protein 5.5L, Albumin 2.5L 07/20/20 04:30: White Blood Count 8.3, Red Blood Count 3.24L, Hemoglobin 10.4L, Hematocrit 33L, Mean Corpuscular Volume 101H, Mean Corpuscular Hemoglobin 32, Mean Corpuscular Hemoglobin Concent 32, Red Cell Distribution Width 16.1H, Platelet Count 174, Mean Platelet Volume 10.4, Immature Granulocyte % (Auto) 13, Neutrophils (%) (Auto) 34L, Lymphocytes (%) (Auto) 27, Monocytes (%) (Auto) 24H, Eosinophils (%) (Auto) 1, Basophils (%) (Auto) 1, Neutrophils # (Auto) 2.8, Lymphocytes # (Auto) 2.3, Monocytes # (Auto) 2.0H, Eosinophils # (Auto) 0.1, Basophils # (Auto) 0.1, Immature Granulocyte # (Auto) 1.1H, Sodium Level 142, Potassium Level 4.2, Chloride Level 110H, Carbon Dioxide Level 25, Anion Gap 7, Blood Urea Nitrogen 11, Creatinine 0.86, Estimat Glomerular Filtration Rate > 60, BUN/Creatinine Ratio 13, Glucose Level 81, Calcium Level 8.4L, Corrected Calcium 9.6, Total Bilirubin 0.3, Aspartate Amino Transf (AST/SGOT) 81H, Alanine Aminotransferase (ALT/SGPT) 21, Alkaline Phosphatase 158H, Total Protein 5.5L, Albumin 2.5L 07/20/20 17:04: Vancomycin Level Trough 15.1 07/21/20 05:55: Glucometer 64L 07/21/20 06:35: Glucometer 77 07/22/20 04:52: White Blood Count 6.4, Red Blood Count 3.37L, Hemoglobin 10.8L, Hematocrit 35, Mean Corpuscular Volume 104H, Mean Corpuscular Hemoglobin 32, Mean Corpuscular Hemoglobin Concent 31L, Red Cell Distribution Width 16.5H, Platelet Count 166, Mean Platelet Volume 10.7, Immature Granulocyte % (Auto) 15, Neutrophils (%) (Auto) 25L, Lymphocytes (%) (Auto) 34, Monocytes (%) (Auto) 24H, Eosinophils (%) (Auto) 1, Basophils (%) (Auto) 1, Neutrophils # (Auto) 1.6L, Lymphocytes # (Auto) 2.2, Monocytes # (Auto) 1.5H, Eosinophils # (Auto) 0.1, Basophils # (Auto) 0.1, Immature Granulocyte # (Auto) 1.0H, Sodium Level 142, Potassium Level 4.6, Chloride Level 109H, Carbon Dioxide Level 28, Anion Gap 5, Blood Urea Nitrogen 9, Creatinine 0.80, Estimat Glomerular Filtration Rate > 60, BUN/Creatinine Ratio 11, Glucose Level 76, Calcium Level 8.9, Corrected Calcium 10.2H, Total Bilirubin 0.2, Aspartate Amino Transf (AST/SGOT) 37H, Alanine Aminotransferase (ALT/SGPT) 16, Alkaline Phosphatase 145H, Total Protein 5.7L, Albumin 2.4L 07/23/20 06:05: White Blood Count 6.4, Red Blood Count 3.52L, Hemoglobin 11.5, Hematocrit 36, Mean Corpuscular Volume 103H, Mean Corpuscular Hemoglobin 33, Mean Corpuscular Hemoglobin Concent 32, Red Cell Distribution Width 16.4H, Platelet Count 184, Mean Platelet Volume 10.4, Sodium Level 139, Potassium Level 4.5, Chloride Level 105, Carbon Dioxide Level 28, Anion Gap 6, Blood Urea Nitrogen 7, Creatinine 0.83, Estimat Glomerular Filtration Rate > 60, BUN/Creatinine Ratio 8, Glucose Level 75, Calcium Level 9.1, Corrected Calcium 10.1, Total Bilirubin 0.3, Aspartate Amino Transf (AST/SGOT) 33, Alanine Aminotransferase (ALT/SGPT) 15, Alkaline Phosphatase 154H, Total Protein 6.2L, Albumin 2.7L Microbiology 07/18/20 Urine Culture - Final, Complete Enterobacter cloacae complex Klebsiella pneumoniae Pending Labs Microbiology Date/Time Source Procedure Growth Status 07/18/20 15:00 Urine Clean Catch Urine Culture - Final Enterobacter cloacae complex Klebsiella pneumoniae Complete Laboratory Tests 07/18/20 15:00: Urine Color YELLOW, Urine Clarity CLEAR, Urine pH 5.5, Urine Specific Badger 1.015, Urine Protein NEGATIVE, Urine Glucose (UA) NEGATIVE, Urine Ketones N EGATIVE, Urine Nitrite NEGATIVE, Urine Bilirubin NEGATIVE, Urine Urobilinogen 0.2, Urine Leukocyte Esterase TRACE, Urine RBC (Auto) NEGATIVE, Urine RBC NONE, Urine WBC 5-10, Urine Squamous Epithelial Cells 0-2, Urine Crystals NONE, Urine Bacteria MODERATE, Urine Casts PRESENT, Urine Hyaline Casts 0-2, Urine Mucus NEGATIVE, Urine Culture Indicated YES 07/18/20 16:37: White Blood Count 11.1, Red Blood Count 3.68, Hemoglobin 11.9, Hematocrit 37, Mean Corpuscular Volume 101, Mean Corpuscular Hemoglobin 32, Mean Corpuscular Hemoglobin Concent 32, Red Cell Distribution Width 16.1, Platelet Count 193, Mean Platelet Volume 10.4, Immature Granulocyte % (Auto) 17, Neutrophils (%) (Auto) 36, Lymphocytes (%) (Auto) 20, Monocytes (%) (Auto) 27, Eosinophils (%) (Auto) 1, Basophils (%) (Auto) 0, Neutrophils # (Auto) 3.9, Lymphocytes # (Auto) 2.2, Monocytes # (Auto) 3.0, Eosinophils # (Auto) 0.1, Basophils # (Auto) 0.0, Immature Granulocyte # (Auto) 1.8, Neutrophils % (Manual) 40, Lymphocytes % (Manual) 20, Monocytes % (Manual) 15, Eosinophils % (Manual) 1, Basophils % (Manual) 2, Metamyelocytes % 8, Myelocytes % 8, Band Neutrophils 6, Blood Morphology Comment NORMAL, Sodium Level 139, Potassium Level 3.5, Chloride Level 106, Carbon Dioxide Level 23, Anion Gap 10, Blood Urea Nitrogen 12, Creatinine 0.97, Estimat Glomerular Filtration Rate 57, BUN/Creatinine Ratio 12, Glucose Level 80, Calcium Level 8.7, Corrected Calcium 9.5, Total Bilirubin 0.4, Aspartate Amino Transf (AST/SGOT) 24, Alanine Aminotransferase (ALT/SGPT) 9, Alkaline Phosphatase 145, C-Reactive Protein High Sensitivity 6.07, Total Protein 6.8, Albumin 3.0 07/18/20 19:05: D-Dimer 2.43, Lactic Acid Level 0.87 07/19/20 05:00: White Blood Count 9.3, Red Blood Count 3.32, Hemoglobin 10.7, Hematocrit 34, Mean Corpuscular Volume 101, Mean Corpuscular Hemoglobin 32, Mean Corpuscular He moglobin Concent 32, Red Cell Distribution Width 15.9, Platelet Count 169, Mean Platelet Volume 10.3, Immature Granulocyte % (Auto) 14, Neutrophils (%) (Auto) 40, Lymphocytes (%) (Auto) 20, Monocytes (%) (Auto) 24, Eosinophils (%) (Auto) 1, Basophils (%) (Auto) 1, Neutrophils # (Auto) 3.7, Lymphocytes # (Auto) 1.9, Monocytes # (Auto) 2.2, Eosinophils # (Auto) 0.1, Basophils # (Auto) 0.1, Immature Granulocyte # (Auto) 1.3, Sodium Level 141, Potassium Level 3.2, Chloride Level 109, Carbon Dioxide Level 21, Anion Gap 11, Blood Urea Nitrogen 12, Creatinine 0.83, Estimat Glomerular Filtration Rate > 60, BUN/Creatinine Ratio 14, Glucose Level 74, Calcium Level 8.6, Corrected Calcium 9.8, Total Bilirubin 0.3, Aspartate Amino Transf (AST/SGOT) 29, Alanine Aminotransferase (ALT/SGPT) 12, Alkaline Phosphatase 123, Total Protein 5.5, Albumin 2.5 07/20/20 04:30: White Blood Count 8.3, Red Blood Count 3.24, Hemoglobin 10.4, Hematocrit 33, Mean Corpuscular Volume 101, Mean Corpuscular Hemoglobin 32, Mean Corpuscular Hemoglobin Concent 32, Red Cell Distribution Width 16.1, Platelet Count 174, Mean Platelet Volume 10.4, Immature Granulocyte % (Auto) 13, Neutrophils (%) (Auto) 34, Lymphocytes (%) (Auto) 27, Monocytes (%) (Auto) 24, Eosinophils (%) (Auto) 1, Basophils (%) (Auto) 1, Neutrophils # (Auto) 2.8, Lymphocytes # (Auto) 2.3, Monocytes # (Auto) 2.0, Eosinophils # (Auto) 0.1, Basophils # (Auto) 0.1, Immature Granulocyte # (Auto) 1.1, Sodium Level 142, Potassium Level 4.2, Chloride Level 110, Carbon Dioxide Level 25, Anion Gap 7, Blood Urea Nitrogen 11, Creatinine 0.86, Estimat Glomerular Filtration Rate > 60, BUN/Creatinine Rat io 13, Glucose Level 81, Calcium Level 8.4, Corrected Calcium 9.6, Total Bilirubin 0.3, Aspartate Amino Transf (AST/SGOT) 81, Alanine Aminotransferase (ALT/SGPT) 21, Alkaline Phosphatase 158, Total Protein 5.5, Albumin 2.5 07/20/20 17:04: Vancomycin Level Trough 15.1 07/21/20 05:55: Glucometer 64 07/21/20 06:35: Glucometer 77 07/22/20 04:52: White Blood Count 6.4, Red Blood Count 3.37, Hemoglobin 10.8, Hematocrit 35, Mean Corpuscular Volume 104, Mean Corpuscular Hemoglobin 32, Mean Corpuscular Hemoglobin Concent 31, Red Cell Distribution Width 16.5, Platelet Count 166, Mean Platelet Volume 10.7, Immature Granulocyte % (Auto) 15, Neutrophils (%) (Auto) 25, Lymphocytes (%) (Auto) 34, Monocytes (%) (Auto) 24, Eosinophils (%) (Auto) 1, Basophils (%) (Auto) 1, Neutrophils # (Auto) 1.6, Lymphocytes # (Auto) 2.2, Monocytes # (Auto) 1.5, Eosinophils # (Auto) 0.1, Basophils # (Auto) 0.1, Immature Granulocyte # (Auto) 1.0, Sodium Level 142, Potassium Level 4.6, Chloride Level 109, Carbon Dioxide Level 28, Anion Gap 5, Blood Urea Nitrogen 9, Creatinine 0.80, Estimat Glomerular Filtration Rate > 60, BUN/Creatinine Ratio 11, Glucose Level 76, Calcium Level 8.9, Corrected Calcium 10.2, Total Bilirubin 0.2, Aspartate Amino Transf (AST/SGOT) 37, Alanine Aminotransferase (ALT/SGPT) 16, Alkaline Phosphatase 145, Total Protein 5.7, Albumin 2.4 07/23/20 06:05: White Blood Count 6.4, Red Blood Count 3.52, Hemoglobin 11.5, Hematocrit 36, Mean Corpuscular Volume 103, Mean Corpuscular Hemoglobin 33, Mean Corpuscular Hemoglobin Concent 32, Red Cell Distribution Width 16.4, Platelet Count 184, Mean Platelet Volume 10.4, Sodium Level 139, Potassium Level 4.5, Chloride Level 105, Carbon Dioxide Level 28, Anion Gap 6, Blood Urea Nitrogen 7, Creatinine 0.83, Estimat Glomerular Filtration Rate > 60, BUN/Creatinine Ratio 8, Glucose Level 75, Calcium Level 9.1, Corrected Calcium 10.1, Total Bilirubin 0.3, Aspartate Amino Transf (AST/SGOT) 33, Alanine Aminotransferase (ALT/SGPT) 15, Alkaline Phosphatase 154, Total Protein 6.2, Albumin 2.7 Discharge Home Medications: Active Scripts Active Urecholine (Bethanechol Chloride) 10 Mg Tablet 25 Mg PO ACHS 30 Days Flomax (Tamsulosin HCl) 0.4 Mg Cap 0.4 Mg PO DAILY Klor-Con 10 (Potassium Chloride) 10 Meq Tablet.er 10 Meq PO BID 60 Days Mirtazapine 15 Mg Tab.rapdis 15 Mg PO HS 30 Days Hydrocodone-Acetamin 5-325 mg (Hydrocodone/Acetaminophen) 1 Each Tablet 1 Tab PO Q4H PRN Enoxaparin Sodium 40 Mg/0.4 Ml Syringe 40 Mg SC Q24H 14 Days Fluconazole 100 Mg Tablet 100 Mg PO DAILY 3 Days Pramipexole Dihydrochloride (Pramipexole Di-HCl) 0.5 Mg Tablet 0.5 Mg PO TID Nystatin 15 Gm Cream..g. 0 Gm TP BID Ventolin Hfa (Albuterol Sulfate) 18 Gm Hfa.aer.ad 0 Gm IH Q2HR PRN Reported Boudreauxs (Zinc Oxide) 28 Gm Oint 1 Applic TP EVERY 2 HOURS PRN APPLY NEEDED FOR BRIEF CHANGE Tessalon Perles (Benzonatate) 100 Mg Capsule 100 Mg PO Q8H PRN Lotrimin AF (Miconazole Nitrate) 90 Gm Powder 1 Applic TP Q2H PRN Albuterol Sulfate 0.63 Mg/3 Ml Vial.neb 0.63 Mg IH Q2H PRN Methotrexate (Methotrexate Sodium) 2.5 Mg Tablet 10 Mg PO MON TAKES 4 (2.5MG) TABS Furosemide 80 Mg Tablet 80 Mg PO DAILY Quetiapine Fumarate 100 Mg Tablet 100 Mg PO HS TAKES A 100MG +50MG TO EQUAL 150MG Tylenol (Acetaminophen) 325 Mg Capsule 650 Mg PO Q6H PRN Quetiapine Fumarate 50 Mg Tablet 50 Mg PO BID TAKES 50MG DAILY AND 150MG (100MG + 50MG) AT BEDTIME Depakote ER (Divalproex Sodium) 500 Mg Tab.er.24h 1,000 Mg PO BID TAKES 2 (500MG) TABS Diphenhydramine HCl 25 Mg Capsule 50 Mg PO Q6H PRN Clobetasol Propionate 50 Ml Solution 1 Applic TP BID APPLY TO THE SCALP Clobetasol Propionate 118 Ml Shampoo 1 Applic TOP Q72H Vitamin E (Vitamin E (Dl,Tocopheryl Acet)) 400 Unit Capsule 400 Unit PO DAILY Vitamin C (Ascorbic Acid) 1,000 Mg Tablet 1,000 Mg PO DAILY Topiramate 50 Mg Tablet 50 Mg PO BID Pantoprazole Sodium 40 Mg Tablet.dr 40 Mg PO DAILY Miralax (Polyethylene Glycol 3350) 17 Gm Powd.pack 17 Gm PO DAILY PRN Melatonin 3 Mg Tablet 3 Mg PO HS Lactulose 10 Gm/15 Ml Solution 30 Ml PO DAILY PRN Cymbalta (Duloxetine HCl) 60 Mg Capsule.dr 60 Mg PO DAILY Levetiracetam 1,000 Mg Tablet 1,000 Mg PO BID Prednisolone Acetate 5 Ml Drops.susp 1 Drop OU Q48H Meloxicam 15 Mg Tablet 15 Mg PO DAILY Aspirin EC (Aspirin) 81 Mg Tablet.dr 81 Mg PO DAILY Instructions to patient/family Please see electronic discharge instructions given to patient. Clinical Quality Measures DVT/VTE Risk/Contraindication: Risk Factor Score Per Nursin DADA SANDOVAL DO Jul 23, 2020 09:57
--- NOTE | 2020-07-23 10:14 | CONSULTATION REPORT ---
DATE OF SERVICE: 07/22/2020 ATTENDING PHYSICIAN: Dr. Montiel. SUMMARY: Most information was obtained from the records and from the nurse. This is a 70-year-old white lady that was admitted with right wrist fracture. She was preliminary voiding well, but then she was planned to be discharged today 07/22/2020; however, she had started having some problem urinating and had some large residual on postvoid residual check. She was on oxybutynin probably for some incontinence issues. She could not give any info because of her dementia. IMPRESSION: Urinary retention, probably neurogenic as well as secondary to oxybutynin. PLAN: 1. Hold oxybutynin to start her on Flomax 0.4 mg daily. 2. Bladder scan postvoid residual and straight cath p.r.n. over 300. We will hold the dismissal today. We will see how she does by tomorrow and plan accordingly. Job ID: [id number] DocumentID: [id number] Dictated Date: 07/23/2020 08:59:51 Community Coordinator Date: 07/23/2020 10:13:33 Dictated By: BHAVESH SAMUEL MD
[2020-07-23] MEDS ORDERED: LIDOCAINE 1% INJ 20 ML 20 ML VIAL INJ ONE (11:00)
[2020-07-23] MEDS ORDERED: LIDOCAINE 1% INJ 20 ML 20 ML VIAL ONE (11:08)
[2020-07-23 12:00] VITALS: BP 135/72
--- NOTE | 2020-07-23 12:27 | Consultation - Ortho ---
Consult - Ortho Subjective Date of Exam 07/23/20 Chief Complaint Fracture right distal radius and ulnar styloid HPI/Events since last exam Mrs Gibbs is a 70-year-old white female who we've seen previously in the office for bilateral shoulder pain/injuries. She fell this time on 07/18 injuring her right wrist. She was seen in the emergency room and x-rays did show a fracture of the right distal radius and ulnar styloid with angulation. She was splinted and admitted for eventual placement. Consult was placed for me to see her late yesterday afternoon and I saw her this morning. She states she is right handed. Denies any previous injury to the right wrist or hand. Medical, Surgical History Reviewed and no additions or changes Social History Reviewed and no additions or changes Family History Reviewed and no additions or changes Review of Systems Reviewed and no additions or changes Allergies: Coded Allergies: Penicillins (Verified Allergy, Mild, 07/18/20) latex (Verified Allergy, Mild, 07/18/20) Home Meds Active Scripts Bethanechol Chloride (Urecholine) 10 Mg Tablet, 25 MG PO ACHS for 30 Days, TAB Prov:DADA SANDOVAL DO 07/23/20 Tamsulosin HCl (Flomax) 0.4 Mg Cap, 0.4 MG PO DAILY, #30 CAP Prov:DADA SANDOVAL DO 07/23/20 Potassium Chloride (Klor-Con 10) 10 Meq Tablet.er, 10 MEQ PO BID for 60 Days, TAB Prov:DADA SANDOVAL DO 07/22/20 Mirtazapine (Mirtazapine) 15 Mg Tab.rapdis, 15 MG PO HS for 30 Days, TAB Prov:DADA SANDOVAL DO 07/22/20 Hydrocodone/Acetaminophen (Hydrocodone-Acetamin 5-325 mg) 1 Each Tablet, 1 TAB PO Q4H PRN for PAIN-MODERATE (5-7), #30 TAB Prov:DADA SANDOVAL DO 07/22/20 Enoxaparin Sodium (Enoxaparin Sodium) 40 Mg/0.4 Ml Syringe, 40 MG SC Q24H for 14 Days, SYRINGE Prov:DADA SANDOVAL DO 07/22/20 Fluconazole (Fluconazole) 100 Mg Tablet, 100 MG PO DAILY for 3 Days, TAB Prov:DADA SANDOVAL DO 07/22/20 Pramipexole Di-HCl (Pramipexole Dihydrochloride) 0.5 Mg Tablet, 0.5 MG PO TID, #30 TAB Prov:DADA SANDOVAL DO 07/22/20 Nystatin (Nystatin) 15 Gm Cream..g., 0 GM TP BID, #1 TUBE Prov:DADA SANDOVAL DO 07/17/20 Albuterol Sulfate (Ventolin Hfa) 18 Gm Hfa.aer.ad, 0 GM IH Q2HR PRN for SOA, #1 GM Prov:DADA SANDOVAL DO 07/17/20 Reported Medications Zinc Oxide (Boudreauxs) 28 Gm Oint, 1 APPLIC TP EVERY 2 HOURS PRN for GAULDING/REDNESS/ITCHING, TUBE APPLY NEEDED FOR BRIEF CHANGE 07/19/20 Benzonatate (TESSALON PERLES) 100 Mg Capsule, 100 MG PO Q8H PRN for COUGH, CAP 07/19/20 Miconazole Nitrate (Lotrimin AF) 90 Gm Powder, 1 APPLIC TP Q2H PRN for GAULDING,REDNESS,ITCHING, EA 07/19/20 Albuterol Sulfate (Albuterol Sulfate) 0.63 Mg/3 Ml Vial.neb, 0.63 MG IH Q2H PRN for SHORTNESS OF AIR, INHALER 07/19/20 Methotrexate Sodium (Methotrexate) 2.5 Mg Tablet, 10 MG PO MON, TAB TAKES 4 (2.5MG) TABS 07/01/20 Furosemide (Furosemide) 80 Mg Tablet, 80 MG PO DAILY, TAB 07/01/20 Quetiapine Fumarate (Quetiapine Fumarate) 100 Mg Tablet, 100 MG PO HS, TAB TAKES A 100MG +50MG TO EQUAL 150MG 04/11/20 Acetaminophen (Tylenol) 325 Mg Capsule, 650 MG PO Q6H PRN for PAIN-MILD (1-4), CAP 03/14/20 Quetiapine Fumarate (Quetiapine Fumarate) 50 Mg Tablet, 50 MG PO BID, TAB TAKES 50MG DAILY AND 150MG (100MG + 50MG) AT BEDTIME 03/14/20 Divalproex Sodium (Depakote ER) 500 Mg Tab.er.24h, 1000 MG PO BID, TAB TAKES 2 (500MG) TABS 03/14/20 Diphenhydramine HCl (Diphenhydramine HCl) 25 Mg Capsule, 50 MG PO Q6H PRN for ABX REACTION, CAP 03/14/20 Clobetasol Propionate (Clobetasol Propionate) 50 Ml Solution, 1 APPLIC TP BID, EA APPLY TO THE SCALP 11/14/19 Clobetasol Propionate (Clobetasol Propionate) 118 Ml Shampoo, 1 APPLIC TOP Q72H, EA 11/14/19 Vitamin E (Dl,Tocopheryl Acet) (Vitamin E) 400 Unit Capsule, 400 UNIT PO DAILY, CAP 11/14/19 Ascorbic Acid (Vitamin C) 1,000 Mg Tablet, 1000 MG PO DAILY, TAB 11/14/19 Topiramate (Topiramate) 50 Mg Tablet, 50 MG PO BID, TAB 11/14/19 Pantoprazole Sodium (Pantoprazole Sodium) 40 Mg Tablet.dr, 40 MG PO DAILY, TAB 11/07/18 Polyethylene Glycol 3350 (Miralax) 17 Gm Powd.pack, 17 GM PO DAILY PRN for CONSTIPATION-2ND LINE, EACH 11/07/18 Melatonin (Melatonin) 3 Mg Tablet, 3 MG PO HS, TAB 11/07/18 Lactulose (Lactulose) 10 Gm/15 Ml Solution, 30 ML PO DAILY PRN for CONSTIPATION- 3RD LINE, EA 11/07/18 Duloxetine HCl (Cymbalta) 60 Mg Capsule.dr, 60 MG PO DAILY, CAP 11/07/18 Levetiracetam (Levetiracetam) 1,000 Mg Tablet, 1000 MG PO BID, TAB 11/07/18 Prednisolone Acetate (Prednisolone Acetate) 5 Ml Drops.susp, 1 DROP OU Q48H, EA 10/01/16 Meloxicam (Meloxicam) 15 Mg Tablet, 15 MG PO DAILY, TAB 05/01/16 Aspirin (Aspirin EC) 81 Mg Tablet.dr, 81 MG PO DAILY, TAB 10/14/15 Discontinued Scripts Cephalexin (Cephalexin) 500 Mg Tablet, 500 MG PO BID for 7 Days, #14 TAB 0 Refills Prov:MACY GLYNN 07/18/20 Ofloxacin (Ofloxacin) 5 Ml Drops, 2 DROPS OP Q6H for 7 Days, #1 EA 0 Refills Prov:MACY GLYNN 07/18/20 Zinc Oxide (Boudreauxs) 28 Gm Oint, 0 GM TOP NEEDED PRN for DIAPER CHANGE, #1 TUBE Prov:SANDOVAL,DADA DO 07/17/20 Miconazole Nitrate (Lotrimin AF) 90 Gm Powder, 0 GM TOP BID, #1 EA Prov:DADA SANDOVAL DO 07/17/20 Benzonatate (TESSALON PERLES) 100 Mg Capsule, 100 MG PO TID PRN for COUGH, #60 CAP Prov:DADA SANDOVAL DO 07/17/20 Objective Exam Constitutional: [] HEENT: [] Neck: [] Cardiovascular: [] Respiratory: [] Gastrointestinal: [] Genitourinary: [] Skin: [] Back/Spine: [] Extremities: [Mild swelling and edema of right wrist and dorsum her right hand. This does extend into her fingers and thumb. She is able to move her fingers and thumb without pain. She states she has normal sensation is good capillary refill. No pain at the elbow with range of motion. With pronation supination of forearm chest pain of the distal radius and ulnar styloid. No obvious deformities noted.] Neurologic: [] Psychiatric: [] Hematologic/lymphatic/immunologic: [] Vital Signs Vital Signs Date Time Temp Pulse Resp B/P (MAP) Pulse Ox O2 Delivery O2 Flow Rate FiO2 07/23/20 08:11 36.2 72 18 135/72 (93) 94 Room Air 07/23/20 06:54 Room Air 07/23/20 03:22 36.2 72 18 135/72 (93) 94 Room Air 07/22/20 23:17 36.2 63 20 117/52 (73) 94 Room Air 07/22/20 20:41 35.7 61 20 120/57 (78) 97 Room Air 07/22/20 20:30 Room Air 07/22/20 16:30 36.2 69 18 127/63 (84) 97 Room Air I & O 07/23/20 07:00 Intake Total 940 ml Output Total 925 ml Balance 15 ml Lab Results Laboratory Tests 07/23/20 06:05: White Blood Count 6.4, Red Blood Count 3.52L, Hemoglobin 11.5, Hematocrit 36, Mean Corpuscular Volume 103H, Mean Corpuscular Hemoglobin 33, Mean Corpuscular Hemoglobin Concent 32, Red Cell Distribution Width 16.4H, Platelet Count 184, Mean Platelet Volume 10.4, Sodium Level 139, Potassium Level 4.5, Chloride Level 105, Carbon Dioxide Level 28, Anion Gap 6, Blood Urea Nitrogen 7, Creatinine 0.83, Estimat Glomerular Filtration Rate > 60, BUN/Creatinine Ratio 8, Glucose Level 75, Calcium Level 9.1, Corrected Calcium 10.1, Total Bilirubin 0.3, Aspartate Amino Transf (AST/SGOT) 33, Alanine Aminotransferase (ALT/SGPT) 15, Alkaline Phosphatase 154H, Total Protein 6.2L, Albumin 2.7L Microbiology 07/18/20 Urine Culture - Final, Complete Enterobacter cloacae complex Klebsiella pneumoniae Imaging X-rays were reviewed from 07/18/2020. She has an angulation of 33 and 38 of dorsal tilt. There is an ulnar styloid fracture. There is comminution dorsally of the distal radius. There is no apparent intra-articular involvement. Assessment and Plan Assessment Angulated fracture right distal radius and ulnar styloid Problem List Unchanged Plan Treatment options were discussed with the patient. I told her we could try to reduce this under hematoma block and see how it does and hopefully it will stay if not she may require surgery. She wants to try the closed reduction and casting The skin over the dorsum of the fracture site was cleansed with Betadine and alcohol none the fracture hematoma was injected with 10 mL's of 1 percent Xylocaine. Pressure was then applied to the injection site. After about 5 minutes patient had pretty good relief of her pain at the fracture site. Fracture was then reduced using traction countertraction increasing the deformity and then reducing the fracture with a volarly directed force. In doi ng this there was some skin tearing dorsally. This was placed back in position and Adaptic was applied. 4 x 4's were then applied and the long-arm cast was placed on the right arm. The elbow was at 90 of forearm was in neutral the wrist was flexed about 20. The cast was well molded around fracture site. After reduction the patient had normal sensation to the fingers and thumb with good cap refill and could move her fingers and thumb without pain. The cast was then bivalved and wrapped with Jeremy wraps Postreduction x-ray did show improvement of the fracture. The fracture was out to length on AP view with minimal radial displacement of the distal fragment. On the lateral view she had 10 of dorsal tilt and 8 of angulation which is felt to be acceptable for this lady. Will follow-up in the office in approximately 2 weeks. Again the cast was bivalved and wrapped with an Jeremy wrap. Apparently she is being discharged to senior living the day. Continuous sling, ice and elevation. Also encouraged her to move her fingers and thumb is much as possible. Final Diagonsis Fracture right distal radius and ulnar styloid with reduction and long-arm cast Level of the visit: Level 3 BARB ISLAS MD Jul 23, 2020 12:27
--- NOTE | 2020-07-23 12:34 | Diagnostic Imaging Report ---
INDICATION: Right wrist fracture followup post reduction. TECHNIQUE/COMPARISON: AP and lateral views of the right wrist were obtained at 12:02 PM and compared to 07/18/2020. FINDINGS: An overlying cast is in place. The distal radial fracture is in improved alignment compared to the prior study. Ulnar styloid avulsion is again noted. IMPRESSION: Improved alignment of the distal radial fracture compared to the prior study. Ulnar styloid avulsion again noted. Overlying cast in place. Dictated by: Dictated on workstation # [id number]
--- NOTE | 2020-07-23 13:41 | NUR ---
CM/SS finalized discharge. Plan: patient is discharging to [facility] today 07/23 skilled. Transportation is set for 2:00 p.m. VCV: CM/SS contacted [facility] to set up berry picker time. CM/SS faxed finalized discharge orders with the new medications. DPOA: CM/SS contacted the patient's brother Addy to give an update. He verbalized understanding. No further questions at this time.
[2020-07-23 14:55] VITALS: BP 135/72
== END 2020-07-23 14:55 ==
LOC: EDUNIT# 14:08 → ER 14:09 → 4TH 16:55
PROVIDERS: ADMIT Family Medicine; ATTEND Internal Medicine
DX: S62.101A Fracture of unspecified carpal bone, right wrist, initial encounter for closed fracture (principal); F03.90 Unspecified dementia, unspecified severity, without behavioral disturbance, psychotic disturbance, mood disturbance, and anxiety; F99 Mental disorder, not otherwise specified; I10 Essential (primary) hypertension; E78.5 Hyperlipidemia, unspecified; I25.10 Atherosclerotic heart disease of native coronary artery without angina pectoris; D64.9 Anemia, unspecified; K21.9 Gastro-esophageal reflux disease without esophagitis; M19.90 Unspecified osteoarthritis, unspecified site; Z87.891 Personal history of nicotine dependence; F31.9 Bipolar disorder, unspecified; Z83.3 Family history of diabetes mellitus; F41.9 Anxiety disorder, unspecified; W19.XXXA Unspecified fall, initial encounter; N30.00 Acute cystitis without hematuria; S43.101A Unspecified dislocation of right acromioclavicular joint, initial encounter; U07.1 COVID-19; Z79.51 Long term (current) use of inhaled steroids; Z79.82 Long term (current) use of aspirin; Z79.899 Other long term (current) drug therapy; Z88.0 Allergy status to penicillin; Z91.040 Latex allergy status
CPT/HCPCS: 29125; 36410; 70450; 71045; 72125; 73030; 73080; 73100; 73110; 73502; 76937; 80053 ×5; 80202; 81000; 82962; 83605; 85007; 85025 ×3; 85027 ×2; 85379; 86141; 87077; 87088; 87186; 93971; 94760 ×3; 97116 ×2; 97162; 97166; 97530; 97535 ×2; 99284; A4565; 36415; G0378

== ENCOUNTER → 2020-08-05 | Outpatient (CLI) | payer MEDICARE, BC, MEDICAID ==
[~2020-08-05] MED LIST changes: +ALBU0.63 IH; +BTH10T PO; +ENOX40DI8 SC; +FLUC100T6 PO; +MICO90PO TP; +MIRT-47 PO; +OFLO5DRO3 OP; +POTA10TA6 PO; +TMSL.4C PO; +ZINC28PA TP
--- NOTE | 2020-08-05 10:22 | Diagnostic Imaging Report ---
Indication: Fracture. Comparison made with prior examination of 07/23/2020. 2 views were obtained. Findings: The right wrist remains encased within cast material. There is a comminuted and impacted fracture of the distal radius. There is also a styloid fracture. Alignment is grossly unchanged. IMPRESSION: Relatively stable alignment of the comminuted impacted fracture distal right radius and ulnar styloid fracture as described Dictated by: Dictated on workstation # [id number]
== END ==
LOC: ORTHO 09:35
PROVIDERS: ATTEND Orthopaedic Surgery
DX: S52.531D Colles' fracture of right radius, subsequent encounter for closed fracture with routine healing (principal)
CPT/HCPCS: 73100

== ENCOUNTER → 2020-08-08 | Outpatient (CLI) | payer MEDICARE, BC, MEDICAID ==
[2020-08-08 21:05] LABS: BILIRUBIN,URINE NEGATIVE (NEGATIVE); CLARITY,URINE CLEAR; COLOR,URINE YELLOW; GLUCOSE, URINE (UA) NEGATIVE (NEGATIVE); KETONES,URINE NEGATIVE (NEGATIVE); LEUKOCYTE ESTERASE ,URINE 2+ (NEGATIVE); NITRITE,URINE POSITIVE (NEGATIVE); PROTEIN,URINE TRACE (NEGATIVE)
[2020-08-08 21:11] LABS: BACTERIA,URINE MODERATE /HPF; RBC,URINE 0-2 /HPF; WBC,URINE TNTC /HPF
== END ==
LOC: CVS 20:44
DX: R41.0 Disorientation, unspecified (principal)
CPT/HCPCS: 81000; 87077; 87088; 87186

== ENCOUNTER → 2020-08-26 | Outpatient (CLI) | payer MEDICARE, BC, MEDICAID ==
[~2020-08-26] MED LIST changes: +BETHANECHOL CHLORIDE PO; +CLOB59SP3 TOP; +QUET50TA22 PO; -QUET50TA55 PO; +RT-ALBUINH INH; +SULF1TAB35 PO
--- NOTE | 2020-08-26 15:35 | Diagnostic Imaging Report ---
INDICATION: Follow-up right wrist fracture. TIME OF EXAM: 10:49 AM CORRELATION is made with prior radiograph from 08/05/2020. Two views of the right wrist demonstrate a comminuted impacted fracture of the distal radius. This appears to be in similar alignment to prior exam. Fracture lines remain visible. There is also fracture of the ulnar styloid, ununited. Carpus and metacarpals are intact. IMPRESSION: No significant change in distal radius and ulnar fractures when compared with exam from 3 weeks earlier. Fracture lines remain visible. Alignment is stable. Dictated by: Dictated on workstation # [id number]
== END ==
LOC: ORTHO 10:30
PROVIDERS: ATTEND Orthopaedic Surgery
DX: S52.531D Colles' fracture of right radius, subsequent encounter for closed fracture with routine healing (principal); S52.611D Displaced fracture of right ulna styloid process, subsequent encounter for closed fracture with routine healing; X58.XXXD Exposure to other specified factors, subsequent encounter
CPT/HCPCS: 29075; 73100

== ENCOUNTER → 2020-09-16 | Outpatient (CLI) | payer MEDICARE, BC, MEDICAID ==
[~2020-09-16] MED LIST changes: -VITA-235 PO; +VITA-261 PO
--- NOTE | 2020-09-16 13:23 | Diagnostic Imaging Report ---
INDICATION: Fracture. COMPARISON: 08/26/2020. FINDINGS: There is a comminuted fracture of the distal radius which is somewhat impacted. There is also an ulnar styloid fracture. The bones are osteopenic. There are otherwise degenerative changes in the wrist. IMPRESSION: Stable distal radial and ulnar fractures as described. Dictated by: Dictated on workstation # [id number]
== END ==
LOC: ORTHO 10:06
PROVIDERS: ATTEND Orthopaedic Surgery
DX: S52.531A Colles' fracture of right radius, initial encounter for closed fracture (principal); X58.XXXA Exposure to other specified factors, initial encounter
CPT/HCPCS: 73100

== ENCOUNTER → 2020-10-02 | Outpatient (CLI) | payer MEDICARE, BC, MEDICAID ==
--- NOTE | 2020-10-02 12:25 | Diagnostic Imaging Report ---
INDICATION: Follow-up fracture. COMPARISON: 09/16/2020 FINDINGS: Frontal and lateral radiographic views of the right wrist were obtained and again demonstrate nonacute fracture of the distal radius and ulna. There is persistent moderate angulation of the distal radial fracture site with the apex projecting anteriorly. There is also mild lateral subluxation of the distal radial fracture fragment. Overall, alignment of the radial and ulnar fracture fragments is stable. Note is also made of widening of the scapholunate joint space. There is some soft tissue ossification, which may be on the basis of early bridging callus formation. No unexpected radiopaque foreign bodies are seen. IMPRESSION: 1. Redemonstration nonacute fractures of the distal left radius and ulna as described above. 2. Widening at the scapholunate joint space suspicious for underlying ligamentous injury. Dictated by: Dictated on workstation # [id number]
== END ==
LOC: ORTHO 10:29
PROVIDERS: ATTEND Orthopaedic Surgery
DX: S52.531D Colles' fracture of right radius, subsequent encounter for closed fracture with routine healing (principal); X58.XXXD Exposure to other specified factors, subsequent encounter
CPT/HCPCS: 73100

== ENCOUNTER 2020-10-22 10:01 | Emergency (ER) | payer MEDICARE, BC, MEDICAID ==
[~2020-10-22] VITALS: Ht 162 cm; Wt 86.0 kg
--- NOTE | 2020-10-22 10:29 | ED General ---
General Chief Complaint: General Problems/Pain Stated Complaint: COVID VACC SIDE EFFECTS Nursing Triage Note: PT ARRIVED PER EMS, PT IS AWAKE AND ALERT BUT PLEASANTLY CONFUSED. PT HAS 2ND COVID SHOT YESTERDAY. FACILITY STATES PT HAD FEVER, NO FEVER IN ED. PT HAS SPLINT ON R WRIST. PT HAS SWOLLEN LOWER EXT CO OF PAIN 02/11. 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 I did discuss with fdc staff the reason that they sent her over and I was told that last night she had a seizure which she is medicated for on Keppra, Topamax and Depakote. She has not had 1 of these in years. The patient received her second Covid vaccination yesterday. The medical education manager reported that Ms. Holcomb was twitching and hallucinating this morning seeing her mother who has . She was reportedly up in her wheelchair all evening last night and never got any rest. Normally the patient is independent showers on her own and gets herself back and forth to meals. This morning she was not wanting to get up at all. They reported a temp of 100.3 and that the patient was slightly tachycardic. She recently had her Lasix increased 2 weeks ago to 80 mg daily to address the swelling in her lower extremities. The nurse told me that her legs are much more red this morning than usual and much more edematous. Patient was given 2 Tylenol this morning at about 830. The patient herself is complaining of pain to her bilateral lower extremities. Otherwise she is not really able to give me much of a history of present illness nor contribute to the past medical family or social history. All other review of systems reviewed with the patient and negative except as st ated. Timing/Duration: 24 Hours Severity: Mild Associated Systoms: Denies Symptoms Allergies and Home Medications Allergies Coded Allergies: Penicillins (Verified Allergy, Mild, 07/18/20) latex (Verified Allergy, Mild, 07/18/20) Home Medications Acetaminophen 325 Mg Capsule, 650 MG PO Q6H PRN for PAIN-MILD (1-4), (Reported) TAKES 2 (325MG) TABLETS Albuterol Sulfate 0.63 Mg/3 Ml Vial.neb, 0.63 MG IH Q2H PRN for SHORTNESS OF BREATH, (Reported) Albuterol Sulfate 1 Puff Puff, 2 PUFF INH Q2H PRN for SHORTNESS OF BREATH, (Reported) Ascorbic Acid 1,000 Mg Tablet, 1,000 MG PO DAILY, (Reported) Aspirin 81 Mg Tablet.dr, 81 MG PO DAILY, (Reported) Benzonatate 100 Mg Capsule, 100 MG PO Q8H PRN for COUGH, (Reported) Clobetasol Propionate 118 Ml Shampoo, 1 APPLIC TOP Q72H, (Reported) Clobetasol Propionate 59 Ml [place], 1 APPLIC TOP BID, (Reported) Diphenhydramine HCl 25 Mg Capsule, 50 MG PO Q6H PRN for ALLERGIC REACTION, (Reported) TAKES 2 (25MG) TABLETS Divalproex Sodium 500 Mg Tab.er.24h, 1,000 MG PO BID, (Reported) TAKES 2 (500MG) TABS Duloxetine HCl 60 Mg Capsule.dr, 60 MG PO DAILY, (Reported) Folic Acid 1 Mg Tablet, 1 MG PO DAILY, (Reported) Furosemide 40 Mg Tablet, 40 MG PO DAILY Prescribed by: DWAYNE ROSS on 08/20/20 1128 Hydrocodone/Acetaminophen 1 Each Tablet, 1 TAB PO Q4H PRN for PAIN-MODERATE (5- 7), (Reported) Lactulose 10 Gm/15 Ml Solution, 30 ML PO DAILY PRN for CONSTIPATION-3RD LINE, (Reported) Levetiracetam 1,000 Mg Tablet, 1,000 MG PO BID, (Reported) Melatonin 3 Mg Tablet, 3 MG PO HS, (Reported) Meloxicam 15 Mg Tablet, 15 MG PO DAILY, (Reported) Methotrexate Sodium 2.5 Mg Tablet, 10 MG PO MON, (Reported) TAKES 4 (2.5MG) TABS Miconazole Nitrate 90 Gm Powder, 1 APPLIC TP Q2H PRN for GAULDING,REDNESS,ITCHING, (Reported) Mirtazapine 15 Mg Tab.rapdis, 15 MG PO HS, (Reported) Nystatin 15 Gm Cream..g., 15 GM TP BID, (Reported) Pantoprazole Sodium 40 Mg Tablet.dr, 40 MG PO DAILY, (Reported) Polyethylene Glycol 3350 17 Gm Powd.pack, 17 GM PO DAILY PRN for CONSTIPATION- 2ND LINE, (Reported) Potassium Chloride 10 Meq Tablet.er, 10 MEQ PO DAILY Prescribed by: DWAYNE ROSS on 08/20/20 1128 Pramipexole Di-HCl 0.5 Mg Tablet, 0.5 MG PO TID, (Reported) Quetiapine Fumarate 50 Mg Tablet, 50 MG PO HS, (Reported) TAKES 50MG DAILY AND 150MG (100MG + 50MG) AT BEDTIME Quetiapine Fumarate 100 Mg Tablet, 100 MG PO HS, (Reported) TAKES A 100MG +50MG TO EQUAL 150MG Tamsulosin HCl 0.4 Mg Cap, 0.4 MG PO DAILY, (Reported) Topiramate 50 Mg Tablet, 50 MG PO BID, (Reported) Zinc Oxide 28 Gm Oint, 1 APPLIC TP EVERY 2 HOURS PRN for GAULDING/REDNESS/ITCHING, (Reported) APPLY NEEDED FOR BRIEF CHANGE [Bethanechol Chloride] , 25 MG PO QID, (Reported) Patient Home Medication List Home Medication List Reviewed: Yes Review of Systems Review of Systems Constitutional: see HPI EENTM: no symptoms reported Respiratory: no symptoms reported Cardiovascular: no symptoms reported Gastrointestinal: no symptoms reported Genitourinary: no symptoms reported Musculoskeletal: other (Bilateral leg pain with redness and swelling) All Other Systems Reviewed Negative Unless Noted: Yes Past Qgknzzz-Njhwtn-Lnotjf Hx Patient Social History Alcohol Use: Denies Use Smoking Status: Former Smoker Type Used: Cigarettes Former Smoker, Quit: Jul 05, 2013 2nd Hand Smoke Exposure: Yes Recent Infectious Disease Expo: No Recent Hopitalizations: No Immunizations Up To Date Tetanus Booster (TDap): Unknown PED Vaccines UTD: No Date of Pneumonia Vaccine: Apr 07, 2018 Date of Influenza Vaccine: Feb 10, 2020 Seasonal Allergies Seasonal Allergies: No Past Medical History Surgeries: Yes Gallbladder, Lumpectomy Respiratory: Yes (BRONCHITIS) Chronic Bronchitis Currently Using CPAP: No Cardiac: Yes Chronic Edema/Swelling, Coronary Artery Disease, High Cholesterol, Hypertension, Rheumatic Fever Neurological: Yes (ENCEPHALITIS, restless leg syndrome) Concussion, Dementia, Seizure Disorder, Traumatic Brain Injury, Vertigo Reproductive Disorders: No Female Reproductive Disorders: Denies Sexually Transmitted Disease: No HIV/AIDS: No Genitourinary: Yes (CHRONIC RENAL INSUFFICIENCY; BLADDER CONTROL ISSUES?) Gastrointestinal: Yes ("STOMACH DISCOMFORT"--POST-CHOLECYSTECTOMY SYNDROME) Gastroesophageal Reflux, Chronic Constipation, Chronic Diarrhea, Gall Bladder Disease, Irritable Bowel Musculoskeletal: Yes Arthritis Endocrine: No HEENT: Yes (READING GLASSES) Loss of Vision: Bilateral Hearing Impairment: Denies Cancer: No Psychosocial: Yes Sleep Difficulties, Bipolar Integumentary: Yes Psoriasis Blood Disorders: No Adverse Reaction/Blood Tranf: No Family Medical History Cancer 03 FATHER (PANCREATIC CANCER) 09 BROTHER ( AT AGE 10) Family history: Cardiovascular disease 03 MOTHER Family history: Diabetes mellitus 03 MOTHER Heart disease 03 MOTHER No Pertinent Family Hx Physical Exam-Suspected Sepsis Physical Exam Vital Signs Vital Signs - First Documented 10/22/20 10:01 Temp 36.5 Pulse 93 Resp 18 B/P (MAP) 110/65 (80) Pulse Ox 95 Capillary Refill : Less Than 3 Seconds Blood Pressure Mean: 80 Height, Weight, BMI Height: 5'4.00" Weight: 166lbs. 0.0oz. [id number]; 32.00 BMI Method:Stated General Appearance: WD/WN, Anxious Eyes: Bilateral Eye Normal Inspection, Bilateral Eye PERRL, Bilateral Eye EOMI Neck: Normal Inspection Respiratory: Lungs Clear, Normal Breath Sounds, No Accessory Muscle Use, No Respiratory Distress Cardiovascular: Regular Rate, Rhythm, Systolic Murmur (Left lower sternal border) Gastrointestinal: Non Tender, Soft Extremity: Normal Capillary Refill, Pedal Edema (Significant erythema noted to the anterior portion of both lower legs; patient has a white ulcer that is approximately 3 cm in diameter to the plantar surface of her left foot, no drainage, very tender to palpation) Neurologic/Psychiatric: Alert, No Motor/Sensory Deficits, Normal Mood/Affect Skin: normal color, warm/dry Focused Exam Lactate Level 10/22/20 10:42: Lactic Acid Level 1.20 Lactic Acid Level Laboratory Tests Test 10/22/20 10:42 Lactic Acid Level 1.20 MMOL/L (0.50-2.00) Progress/Results/Core Measures Suspected Sepsis Recent Fever Within 48 Hours: No Infection Criteria Present: None New/Unexplained Altered Menta: No Sepsis Screen: No Definite Risk SIRS Temperature: Pulse: 93 Respiratory Rate: 18 Laboratory Tests 10/22/20 10:42: White Blood Count 5.9 Blood Pressure 110 /65 Mean: 80 10/22/20 10:42: Lactic Acid Level 1.20 Laboratory Tests 10/22/20 10:42: Creatinine 1.18, INR Comment 1.0, Platelet Count 148, Total Bilirubin 0.5 Results/Orders Lab Results Laboratory Tests Test 10/22/20 10:42 10/22/20 10:45 Range/Units White Blood Count 5.9 4.3-11.0 10^3/uL Red Blood Count 2.90 L 3.80-5.11 10^6/uL Hemoglobin 10.3 L 11.5-16.0 g/dL Hematocrit 32 L 35-52 % Mean Corpuscular Volume 111 H 80-99 fL Mean Corpuscular Hemoglobin 36 H 25-34 pg Mean Corpuscular Hemoglobin Concent 32 32-36 g/dL Red Cell Distribution Width 16.6 H 10.0-14.5 % Platelet Count 148 130-400 10^3/uL Mean Platelet Volume 12.8 H 9.0-12.2 fL Immature Granulocyte % (Auto) 2 % Neutrophils (%) (Auto) 66 42-75 % Lymphocytes (%) (Auto) 12 12-44 % Monocytes (%) (Auto) 17 H 0-12 % Eosinophils (%) (Auto) 2 0-10 % Basophils (%) (Auto) 1 0-10 % Neutrophils # (Auto) 3.9 1.8-7.8 10^3/uL Lymphocytes # (Auto) 0.7 L 1.0-4.0 10^3/uL Monocytes # (Auto) 1.0 0.0-1.0 10^3/uL Eosinophils # (Auto) 0.1 0.0-0.3 10^3/uL Basophils # (Auto) 0.0 0.0-0.1 10^3/uL Immature Granulocyte # (Auto) 0.1 0.0-0.1 10^3/uL Prothrombin Time 13.3 12.2-14.7 SEC INR Comment 1.0 0.8-1.4 Activated Partial Thromboplast Time 32 24-35 SEC Sodium Level 141 135-145 MMOL/L Potassium Level 3.9 3.6-5.0 MMOL/L Chloride Level 103 98-107 MMOL/L Carbon Dioxide Level 24 21-32 MMOL/L Anion Gap 14 5-14 MMOL/L Blood Urea Nitrogen 29 H 7-18 MG/DL Creatinine 1.18 0.60-1.30 MG/DL Estimat Glomerular Filtration Rate 45 BUN/Creatinine Ratio 25 Glucose Level 84 70-105 MG/DL Lactic Acid Level 1.20 0.50-2.00 MMOL/L Calcium Level 8.8 8.5-10.1 MG/DL Corrected Calcium 9.1 8.5-10.1 MG/DL Total Bilirubin 0.5 0.1-1.0 MG/DL Aspartate Amino Transf (AST/SGOT) 411 H 5-34 U/L Alanine Aminotransferase (ALT/SGPT) 310 H 0-55 U/L Alkaline Phosphatase 157 H 40-136 U/L Total Protein 7.3 6.4-8.2 GM/DL Albumin 3.6 3.2-4.5 GM/DL Lipase 14 8-78 U/L Smear Scan YES Urine Color YELLOW Urine Clarity CLEAR Urine pH 7.5 5-9 Urine Specific [place] 1.015 L 1.016-1.022 Urine Protein NEGATIVE NEGATIVE Urine Glucose (UA) NEGATIVE NEGATIVE Urine Ketones NEGATIVE NEGATIVE Urine Nitrite NEGATIVE NEGATIVE Urine Bilirubin NEGATIVE NEGATIVE Urine Urobilinogen 0.2 < = 1.0 MG/DL Urine Leukocyte Esterase TRACE H NEGATIVE Urine RBC (Auto) NEGATIVE NEGATIVE Urine RBC NONE /HPF Urine WBC 0-2 /HPF Urine Crystals NONE /LPF Urine Bacteria TRACE /HPF Urine Casts NONE /LPF Urine Mucus NEGATIVE /LPF Urine Culture Indicated NO My Orders Orders - JANAE MUNOZ MD Cbc With Automated Diff (10/22/20 10:22) Comprehensive Metabolic Panel (10/22/20 10:22) Blood Culture (10/22/20 10:22) Sputum Culture (10/22/20 10:22) Urinalysis (10/22/20 10:22) Urine Culture (10/22/20 10:22) Protime With Inr (10/22/20 10:22) Partial Thromboplastin Time (10/22/20 10:22) Chest 1 View, Ap/Pa Only (10/22/20 10:22) Ed Iv/Invasive Line Start (10/22/20 10:22) Ed Iv/Invasive Line Start (10/22/20 10:22) Vital Signs Adult Sepsis Patie Q15M (10/22/20 10:22) O2 (10/22/20 10:22) Remove Rings In Anticipation O (10/22/20 10:22) Lactic Acid Analyzer (10/22/20 10:22) Lipase (10/22/20 11:37) Vital Signs/I&O 10/22/20 10:01 Temp 36.5 Pulse 93 Resp 18 B/P (MAP) 110/65 (80) Pulse Ox 95 Capillary Refill : Less Than 3 Seconds Blood Pressure Mean: 80 Progress Note : Time: 12:19 Progress Note Case discussed with Dr. Adames on-call for the hospitalist service today. Di scussed the elevations in her liver enzymes. Patient has no clinical findings to support an acute abdomen or tenderness in the right upper quadrant. She does not have a gallbladder anymore. She is afebrile here in the department. She is not having vomiting or diarrhea that I can ascertain. At this point will manage her elevated LFTs conservatively. Avoid Tylenol products. Recheck her labs in 2 or 3 days. I am going to go ahead and put her on some Keflex for the cellulitic changes to her bilateral lower extremities. We will have Dr. Ling follow-up on the liver function studies. Return precautions will be given. Patient has no other objective findings to warrant further evaluation with imaging or admission. Diagnostic Imaging Diagonstic Imaging: Xray Plain Films/CT/US/NM/MRI: chest Comments [facility] [place] NAME: [facility] REC#: [id number] PT STATUS: REG ER : 1950 PHYSICIAN: JANAE MUNOZ MD ADMIT DATE: 10/22/20/ER Draft Date of Exam:10/22/20 CHEST 1 VIEW, AP/PA ONLY INDICATION: Sepsis. FINDINGS: The lungs are clear. There is no failure pattern, effusion, or pneumothorax. IMPRESSION: No acute appearing abnormality. Dictated on workstation # [id number] Dict: 10/22/20 1041 Trans: 10/22/20 1043 [id number] Interpreted by: MARTINE LIZAMA Electronically signed by: Departure Impression Primary Impression: History of fever Additional Impressions: Elevated LFTs Cellulitis of both lower extremities Disposition: 01 HOME, SELF-CARE Condition: Stable Departure-Patient Inst. Decision time for Depature: 12:21 Referrals: JOVON LING MD (PCP/Family) Primary Care Physician Patient Instructions: Cellulitis (Skin Infection), Adult ED Add. Discharge Instructions: PATIENT WILL NEED RE-EVALUATION OF HER LIVER FUNCTIONS IN 2-3 DAYS Keflex antibiotic, 500 mg 3 times a day for the next 7 days. Do not give Tylenol until her liver functions have been rechecked. Substitute ibuprofen 400 mg every 4-6 hours with food as needed for any temp over 100.4. Always give ibuprofen with food. Return to the emergency room for any persistent fever, worsening confusion, other emergent concerns Scripts Cephalexin (Cephalexin) 500 Mg Tablet 500 MG PO TID for 7 Days, #21 TAB Prov: JANAE MUNOZ MD 10/22/20 Copy Copies To 1: JOVON LING MD, KATHRYN M MD Oct 22, 2020 10:29
--- NOTE | 2020-10-22 10:43 | Diagnostic Imaging Report ---
INDICATION: Sepsis. FINDINGS: The lungs are clear. There is no failure pattern, effusion, or pneumothorax. IMPRESSION: No acute appearing abnormality. Dictated by: Dictated on workstation # [id number]
[2020-10-22 10:58] LABS: BILIRUBIN,URINE NEGATIVE (NEGATIVE); CLARITY,URINE CLEAR; COLOR,URINE YELLOW; GLUCOSE, URINE (UA) NEGATIVE (NEGATIVE); KETONES,URINE NEGATIVE (NEGATIVE); LEUKOCYTE ESTERASE ,URINE TRACE (NEGATIVE); NITRITE,URINE NEGATIVE (NEGATIVE); PH,URINE 7.5 (5-9); PROTEIN,URINE NEGATIVE (NEGATIVE)
[2020-10-22 11:04] LABS: BASOPHILS % (AUTO) 1 % (0-10); EOSINOPHILS # (AUTO) 0.1 10^3/uL (0.0-0.3); EOSINOPHILS % (AUTO) 2 % (0-10); HEMATOCRIT 32 % (35-52); HEMOGLOBIN 10.3 g/dL (11.5-16.0); LYMPHOCYTES # (AUTO) 0.7 10^3/uL (1.0-4.0); LYMPHOCYTES % (AUTO) 12 % (12-44); MEAN CORPUSCULAR HEMOGLOBIN 36 pg (25-34); MEAN CORPUSCULAR HGB CONC 32 g/dL (32-36); MEAN CORPUSCULAR VOLUME 111 fL (80-99); MEAN PLATELET VOLUME 12.8 fL (9.0-12.2); MONOCYTES % (AUTO) 17 % (0-12); NEUTROPHILS # (AUTO) 3.9 10^3/uL (1.8-7.8); NEUTROPHILS % (AUTO) 66 % (42-75); PLATELET COUNT 148 10^3/uL (130-400); WHITE BLOOD COUNT 5.9 10^3/uL (4.3-11.0)
[2020-10-22 11:12] LABS: ALBUMIN 3.6 GM/DL (3.2-4.5)
[2020-10-22 11:13] LABS: CALCIUM 8.8 MG/DL (8.5-10.1)
[2020-10-22 11:15] LABS: TOTAL PROTEIN 7.3 GM/DL (6.4-8.2)
[2020-10-22 11:16] LABS: BILIRUBIN,TOTAL 0.5 MG/DL (0.1-1.0)
[2020-10-22 11:18] LABS: CREATININE SERUM 1.18 MG/DL (0.60-1.30)
[2020-10-22 11:20] LABS: BACTERIA,URINE TRACE /HPF; WBC,URINE 0-2 /HPF
[2020-10-22 11:24] LABS: SMEAR SCAN COMMENT YES
[2020-10-22 11:33] LABS: PROTHROMBIN TIME PATIENT 13.3 SEC (12.2-14.7)
[2020-10-22 11:37] LABS: POTASSIUM 3.9 MMOL/L (3.6-5.0)
[2020-10-22] MEDS ORDERED: CEPH500T PO (12:24)
[2020-10-22 12:30] VITALS: BP 108/62
== END 2020-10-22 12:59 | disposition home or self-care (01) ==
LOC: EDUNIT# 10:01 → ER 10:02
DX: R94.5 Abnormal results of liver function studies (principal); L03.116 Cellulitis of left lower limb; L03.115 Cellulitis of right lower limb; I10 Essential (primary) hypertension; I25.10 Atherosclerotic heart disease of native coronary artery without angina pectoris; E78.00 Pure hypercholesterolemia, unspecified; F03.90 Unspecified dementia, unspecified severity, without behavioral disturbance, psychotic disturbance, mood disturbance, and anxiety; F31.9 Bipolar disorder, unspecified; G40.909 Epilepsy, unspecified, not intractable, without status epilepticus; K21.9 Gastro-esophageal reflux disease without esophagitis; K59.09 Other constipation; Z77.22 Contact with and (suspected) exposure to environmental tobacco smoke (acute) (chronic); Z87.891 Personal history of nicotine dependence; Z88.0 Allergy status to penicillin; Z91.040 Latex allergy status; Z79.82 Long term (current) use of aspirin; Z79.52 Long term (current) use of systemic steroids; Z79.899 Other long term (current) drug therapy
CPT/HCPCS: 36415; 51701; 71045; 80053; 81000; 83605; 83690; 85025; 85610; 85730; 87040; 87088

== ENCOUNTER 2020-11-15 02:44 | Emergency (ER) | payer MEDICARE, BC, MEDICAID ==
[~2020-11-15] VITALS: Ht 162 cm; Wt 86.0 kg
[2020-11-15 02:49] VITALS: BP 132/69
--- NOTE | 2020-11-15 03:12 | ED Fall/Injury ---
General Chief Complaint: Trauma-Non Activation Stated Complaint: FALL Nursing Triage Note: BROUGHT IN BY [facility] FROM [facility] AFTER ROLLING OUT OF BED. DENIES LOC. DENIES NEW INJURY. C/O LEFT KNEE PAIN. Source: patient, EMS Exam Limitations: no limitations History of Present Illness Date Seen by Provider: November 15, 2020 Time Seen by Provider: 02:46 Initial Comments This 70 year old woman presents to the ER via EMS from [facility] where she fell out of bed. She denies head or neck injury. She has left knee and foot pain which she states is not new to her. Location Injury Occurred: HOME Allergies and Home Medications Allergies Coded Allergies: Penicillins (Verified Allergy, Mild, 07/18/20) latex (Verified Allergy, Mild, 07/18/20) Home Medications Acetaminophen 325 Mg Capsule, 650 MG PO Q6H PRN for PAIN-MILD (1-4), (Reported) TAKES 2 (325MG) TABLETS Albuterol Sulfate 0.63 Mg/3 Ml Vial.neb, 0.63 MG IH Q2H PRN for SHORTNESS OF BREATH, (Reported) Albuterol Sulfate 1 Puff Puff, 2 PUFF INH Q2H PRN for SHORTNESS OF BREATH, (Reported) Ascorbic Acid 1,000 Mg Tablet, 1,000 MG PO DAILY, (Reported) Aspirin 81 Mg Tablet.dr, 81 MG PO DAILY, (Reported) Benzonatate 100 Mg Capsule, 100 MG PO Q8H PRN for COUGH, (Reported) Cephalexin 500 Mg Tablet, 500 MG PO TID Prescribed by: JANAE MUNOZ on 10/22/20 1224 Clobetasol Propionate 118 Ml Shampoo, 1 APPLIC TOP Q72H, (Reported) Clobetasol Propionate 59 Ml [place], 1 APPLIC TOP BID, (Reported) Diphenhydramine HCl 25 Mg Capsule, 50 MG PO Q6H PRN for ALLERGIC REACTION, (Reported) TAKES 2 (25MG) TABLETS Divalproex Sodium 500 Mg Tab.er.24h, 1,000 MG PO BID, (Reported) TAKES 2 (500MG) TABS Duloxetine HCl 60 Mg Capsule.dr, 60 MG PO DAILY, (Reported) Folic Acid 1 Mg Tablet, 1 MG PO DAILY, (Reported) Furosemide 40 Mg Tablet, 40 MG PO DAILY Prescribed by: DWAYNE ROSS on 08/20/20 1128 Hydrocodone/Acetaminophen 1 Each Tablet, 1 TAB PO Q4H PRN for PAIN-MODERATE (5- 7), (Reported) Lactulose 10 Gm/15 Ml Solution, 30 ML PO DAILY PRN for CONSTIPATION-3RD LINE, (Reported) Levetiracetam 1,000 Mg Tablet, 1,000 MG PO BID, (Reported) Melatonin 3 Mg Tablet, 3 MG PO HS, (Reported) Meloxicam 15 Mg Tablet, 15 MG PO DAILY, (Reported) Methotrexate Sodium 2.5 Mg Tablet, 10 MG PO MON, (Reported) TAKES 4 (2.5MG) TABS Miconazole Nitrate 90 Gm Powder, 1 APPLIC TP Q2H PRN for GAULDING,REDNESS,ITCHING, (Reported) Mirtazapine 15 Mg Tab.rapdis, 15 MG PO HS, (Reported) Nystatin 15 Gm Cream..g., 15 GM TP BID, (Reported) Pantoprazole Sodium 40 Mg Tablet.dr, 40 MG PO DAILY, (Reported) Polyethylene Glycol 3350 17 Gm Powd.pack, 17 GM PO DAILY PRN for CONSTIPATION- 2ND LINE, (Reported) Potassium Chloride 10 Meq Tablet.er, 10 MEQ PO DAILY Prescribed by: DWAYNE ROSS on 08/20/20 1128 Pramipexole Di-HCl 0.5 Mg Tablet, 0.5 MG PO TID, (Reported) Quetiapine Fumarate 50 Mg Tablet, 50 MG PO HS, (Reported) TAKES 50MG DAILY AND 150MG (100MG + 50MG) AT BEDTIME Quetiapine Fumarate 100 Mg Tablet, 100 MG PO HS, (Reported) TAKES A 100MG +50MG TO EQUAL 150MG Tamsulosin HCl 0.4 Mg Cap, 0.4 MG PO DAILY, (Reported) Topiramate 50 Mg Tablet, 50 MG PO BID, (Reported) Zinc Oxide 28 Gm Oint, 1 APPLIC TP EVERY 2 HOURS PRN for GAULDING/REDNESS/ITCHING, (Reported) APPLY NEEDED FOR BRIEF CHANGE [Bethanechol Chloride] , 25 MG PO QID, (Reported) Patient Home Medication List Home Medication List Reviewed: Yes Review of Systems Review of Systems Constitutional: no symptoms reported Eyes: No Symptoms Reported Ears, Nose, Mouth, Throat: no symptoms reported Respiratory: no symptoms reported Cardiovascular: no symptoms reported Gastrointestinal: no symptoms reported Genitourinary: no symptoms reported Musculoskeletal: see HPI Skin: no symptoms reported Psychiatric/Neurological: No Symptoms Reported Past Vxdpzee-Kkbyqu-Pbyrwb Hx Past Med/Social Hx: Reviewed Nursing Past Med/Soc Hx Patient Social History Alcohol Use: Denies Use Smoking Status: Former Smoker Type Used: Cigarettes Former Smoker, Quit: Jul 05, 2013 2nd Hand Smoke Exposure: Yes Recent Infectious Disease Expo: No Recent Hopitalizations: No Immunizations Up To Date Tetanus Booster (TDap): Unknown PED Vaccines UTD: No Date of Pneumonia Vaccine: Apr 07, 2018 Date of Influenza Vaccine: Feb 10, 2020 Seasonal Allergies Seasonal Allergies: No Past Medical History Surgeries: Yes Gallbladder, Lumpectomy Respiratory: Yes (BRONCHITIS) Chronic Bronchitis Currently Using CPAP: No Cardiac: Yes Chronic Edema/Swelling, Coronary Artery Disease, High Cholesterol, Hypertension, Rheumatic Fever Neurological: Yes (ENCEPHALITIS, restless leg syndrome) Concussion, Dementia, Seizure Disorder, Traumatic Brain Injury, Vertigo : No Reproductive Disorders: No Female Reproductive Disorders: Denies 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 Sexually Transmitted Disease: No HIV/AIDS: No Genitourinary: Yes (CHRONIC RENAL INSUFFICIENCY; BLADDER CONTROL ISSUES?) Gastrointestinal: Yes ("STOMACH DISCOMFORT"--POST-CHOLECYSTECTOMY SYNDROME) Gastroesophageal Reflux, Chronic Constipation, Chronic Diarrhea, Gall Bladder Disease, Irritable Bowel Musculoskeletal: Yes Arthritis Endocrine: No HEENT: Yes (READING GLASSES) Loss of Vision: Bilateral Hearing Impairment: Denies Cancer: No Psychosocial: Yes Sleep Difficulties, Bipolar Integumentary: Yes Psoriasis Blood Disorders: No Adverse Reaction/Blood Tranf: No Family Medical History Cancer 03 FATHER (PANCREATIC CANCER) 09 BROTHER ( AT AGE 10) Family history: Cardiovascular disease 03 MOTHER Family history: Diabetes mellitus 03 MOTHER Heart disease 03 MOTHER No Pertinent Family Hx Physical Exam Vital Signs Vital Signs - First Documented 11/15/20 02:49 Temp 35.7 Pulse 65 Resp 18 B/P (MAP) 132/69 (90) Pulse Ox 97 O2 Delivery Room Air Capillary Refill : Less Than 3 Seconds Height, Weight, BMI Height: 5'4.00" Weight: 166lbs. 0.0oz. 75.563504rz; 32.00 BMI Method:Stated General Appearance: WD/WN, no apparent distress HEENT: PERRL/EOMI, normal ENT inspection Neck: non-tender, normal inspection Cardiovascular: regular rate, rhythm, no edema, no murmur Respiratory: lungs clear, normal breath sounds, no respiratory distress Gastrointestinal: non tender, soft Extremities: swelling, other (Tenderness of the left knee and pain with ROM. Bilateral LE edema and erytherma bilaterally. Small weeping on L lower leg. 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, no motor/sensory deficits, alert, normal mood/affect, oriented x 3 Skin: normal color, warm/dry Debbie Coma Score Best Eye Response: (4) Open Spontaneously Best Verbal Response: (5) Oriented Best Motor Response: (6) Obeys Commands Debbie Total: 15 Progress/Results/Core Measures Results/Orders My Orders Orders - KELLEN CURRY MD Knee, Left, 3 Views (11/15/20 02:55) Pelvis (11/15/20 02:55) Vital Signs/I&O 11/15/20 02:49 Temp 35.7 Pulse 65 Resp 18 B/P (MAP) 132/69 (90) Pulse Ox 97 O2 Delivery Room Air Blood Pressure Mean: 90 Diagnostic Imaging Diagonstic Imaging: Xray Plain Films/CT/US/NM/MRI: knee (Left knee) Comments Left knee x-ray viewed by me. Report not yet available. No acute fracture or dislocation appreciated. Diagonstic Imaging: Xray Plain Films/CT/US/NM/MRI: pelvis Comments Pelvis x-ray viewed by me. Report not yet available. No acute fracture or dislocation appreciated. Departure Impression Primary Impression: Fall from bed Qualified Codes: W06.XXXA - Fall from bed, initial encounter Additional Impression: Left knee pain Qualified Codes: M25.562 - Pain in left knee Disposition: 01 HOME, SELF-CARE Condition: Stable Departure-Patient Inst. Decision time for Depature: 03:38 Referrals: JOVON LING MD (PCP/Family) Primary Care Physician Patient Instructions: Knee Pain Add. Discharge Instructions: You may take Tylenol and meloxicam for your knee pain. Icing in 20-minute intervals may also help with your pain. Follow-up with your primary care provider for further evaluation and treatment. Call with questions or concerns. Return to the ER if you have worsening symptoms. All discharge instructions reviewed with patient and/or family. Voiced unders tanding. Copy Copies To 1: JOVON LING MD, JOSHUA T MD November 15, 2020 03:12
--- NOTE | 2020-11-15 07:57 | Diagnostic Imaging Report ---
CLINICAL INDICATION: Patient with pelvic pain. EXAM: X-ray of the pelvis AP view. COMPARISON: X-ray of the right hip dated 07/18/2020. FINDINGS: X-ray of the pelvis shows no acute fracture or dislocation. There is no significant bone or joint abnormality. Visualized portions of the sacrum is unremarkable. There is no lumbar spine degenerative spurs. IMPRESSION: There is no acute fracture or dislocation. Dictated by: Dictated on workstation # [id number]
--- NOTE | 2020-11-15 07:58 | Diagnostic Imaging Report ---
CLINICAL INDICATION: Patient with left knee pain. EXAM: X-ray of the left knee, 3 views. COMPARISON: X-ray of the left knee dated 12/07/2017. FINDINGS: There is no acute fracture or dislocation. There is valgus angulation of the right knee. There is moderate to severe lateral compartment narrowing of the joint space which has progressed in the interim. There is stable moderate medial compartment narrowing of the joint space. There are tricompartmental spurs seen which have progressed. There is no knee effusion. IMPRESSION: There is no acute fracture or dislocation of the left knee. There is progression of tricompartmental degenerative disease with valgus angulation. Dictated by: Dictated on workstation # [id number]
== END 2020-11-15 03:42 | disposition home or self-care (01) ==
LOC: EDUNIT# 02:44 → ER 02:46
DX: M25.562 Pain in left knee (principal); R60.0 Localized edema; L84 Corns and callosities; L53.9 Erythematous condition, unspecified; I10 Essential (primary) hypertension; I25.10 Atherosclerotic heart disease of native coronary artery without angina pectoris; F03.90 Unspecified dementia, unspecified severity, without behavioral disturbance, psychotic disturbance, mood disturbance, and anxiety; F31.9 Bipolar disorder, unspecified; G40.909 Epilepsy, unspecified, not intractable, without status epilepticus; G25.81 Restless legs syndrome; K21.9 Gastro-esophageal reflux disease without esophagitis; K59.09 Other constipation; Z87.891 Personal history of nicotine dependence; Z77.22 Contact with and (suspected) exposure to environmental tobacco smoke (acute) (chronic); K58.9 Irritable bowel syndrome, unspecified; Z88.0 Allergy status to penicillin; Z91.040 Latex allergy status; Z79.82 Long term (current) use of aspirin; Z79.899 Other long term (current) drug therapy; W06.XXXA Fall from bed, initial encounter; Y92.009 Unspecified place in unspecified non-institutional (private) residence as the place of occurrence of the external cause
CPT/HCPCS: 72170; 73562

== ENCOUNTER 2020-11-20 22:24 | Emergency (ER) | payer MEDICARE, BC, MEDICAID ==
[~2020-11-20] VITALS: Ht 162.5 cm; Wt 86.0 kg
[2020-11-20 22:44] LABS: BILIRUBIN,URINE NEGATIVE (NEGATIVE); CLARITY,URINE CLEAR; COLOR,URINE YELLOW; GLUCOSE, URINE (UA) NEGATIVE (NEGATIVE); KETONES,URINE NEGATIVE (NEGATIVE); LEUKOCYTE ESTERASE ,URINE NEGATIVE (NEGATIVE); NITRITE,URINE NEGATIVE (NEGATIVE); PROTEIN,URINE NEGATIVE (NEGATIVE)
[2020-11-20 22:57] LABS: BASOPHILS % (AUTO) 1 % (0-10); EOSINOPHILS # (AUTO) 0.1 10^3/uL (0.0-0.3); EOSINOPHILS % (AUTO) 2 % (0-10); HEMATOCRIT 31 % (35-52); HEMOGLOBIN 10.4 g/dL (11.5-16.0); LYMPHOCYTES # (AUTO) 1.3 10^3/uL (1.0-4.0); LYMPHOCYTES % (AUTO) 40 % (12-44); MEAN CORPUSCULAR HEMOGLOBIN 36 pg (25-34); MEAN CORPUSCULAR HGB CONC 34 g/dL (32-36); MEAN CORPUSCULAR VOLUME 107 fL (80-99); MEAN PLATELET VOLUME 10.4 fL (9.0-12.2); MONOCYTES # (AUTO) 0.4 10^3/uL (0.0-1.0); MONOCYTES % (AUTO) 11 % (0-12); NEUTROPHILS # (AUTO) 1.5 10^3/uL (1.8-7.8); NEUTROPHILS % (AUTO) 46 % (42-75); PLATELET COUNT 50 10^3/uL (130-400); WHITE BLOOD COUNT 3.3 10^3/uL (4.3-11.0)
[2020-11-20] MEDS: fentaNYL INJ 100 MCG/2 ML AMP IVP ONE (22:58)
[2020-11-20] MEDS: cefTRIAXone FOR IV USE 1,000 MG in WATER (STERILE) FOR INJECTION 10 ML IV ONE (22:58)
[2020-11-20] MEDS: NS IV 500 ML 500 ML IV ONE (22:58)
[2020-11-20 23:02] LABS: BACTERIA,URINE TRACE /HPF
[2020-11-20 23:06] LABS: ALBUMIN 3.5 GM/DL (3.2-4.5)
[2020-11-20 23:07] LABS: POTASSIUM 3.1 MMOL/L (3.6-5.0)
[2020-11-20 23:08] LABS: CALCIUM 8.7 MG/DL (8.5-10.1)
[2020-11-20 23:09] LABS: TOTAL PROTEIN 6.6 GM/DL (6.4-8.2)
[2020-11-20 23:11] LABS: BILIRUBIN,TOTAL 0.6 MG/DL (0.1-1.0); SMEAR SCAN COMMENT YES
[2020-11-20 23:13] LABS: CREATININE SERUM 1.19 MG/DL (0.60-1.30)
--- NOTE | 2020-11-20 23:15 | ED Fall/Injury ---
General Chief Complaint: Trauma-Non Activation Stated Complaint: FALL Source: patient Exam Limitations: no limitations History of Present Illness Date Seen by Provider: November 20, 2020 Time Seen by Provider: 22:24 Initial Comments Patient to the ER by EMS from [facility] with chief complaint she rolled out of bed. She denies dysuria diarrhea cough shortness of breath chest pain. She is having a little bit of pain bending her right wrist as well as a little low back pain when EMS helped her up off the floor. She had a bloody nose and has some pain in her nose but denies any pain in her neck or head. She has 3 or 4 days of increasing redness and swelling in both of her lower legs as well as a open wound on the base of her left foot but states she is not on any antibiotics. She denies being on blood thinners. She denies loss of consciousness. She has a history of Alzheimer's on Seroquel for behaviors. Allergies and Home Medications Allergies Coded Allergies: Penicillins (Verified Allergy, Mild, 07/18/20) latex (Verified Allergy, Mild, 07/18/20) Home Medications Acetaminophen 325 Mg Capsule, 650 MG PO Q6H PRN for PAIN-MILD (1-4), (Reported) TAKES 2 (325MG) TABLETS Albuterol Sulfate 0.63 Mg/3 Ml Vial.neb, 0.63 MG IH Q2H PRN for SHORTNESS OF BREATH, (Reported) Albuterol Sulfate 1 Puff Puff, 2 PUFF INH Q2H PRN for SHORTNESS OF BREATH, (Reported) Ascorbic Acid 1,000 Mg Tablet, 1,000 MG PO DAILY, (Reported) Aspirin 81 Mg Tablet.dr, 81 MG PO DAILY, (Reported) Benzonatate 100 Mg Capsule, 100 MG PO Q8H PRN for COUGH, (Reported) Cephalexin 500 Mg Tablet, 500 MG PO TID Prescribed by: JANAE MUNOZ on 10/22/20 1224 Clobetasol Propionate 118 Ml Shampoo, 1 APPLIC TOP Q72H, (Reported) Clobetasol Propionate 59 Ml Andrews, 1 APPLIC TOP BID, (Reported) Diphenhydramine HCl 25 Mg Capsule, 50 MG PO Q6H PRN for ALLERGIC REACTION, (Reported) TAKES 2 (25MG) TABLETS Divalproex Sodium 500 Mg Tab.er.24h, 1,000 MG PO BID, (Reported) TAKES 2 (500MG) TABS Duloxetine HCl 60 Mg Capsule.dr, 60 MG PO DAILY, (Reported) Folic Acid 1 Mg Tablet, 1 MG PO DAILY, (Reported) Furosemide 40 Mg Tablet, 40 MG PO DAILY Prescribed by: DWAYNE ROSS on 08/20/20 1128 Hydrocodone/Acetaminophen 1 Each Tablet, 1 TAB PO Q4H PRN for PAIN-MODERATE (5- 7), (Reported) Hydrocodone/Acetaminophen 1 Each Tablet, 1 TAB PO Q6H PRN for PAIN-MODERATE (5- 7) Prescribed by: MACY GLYNN on 11/21/20 0050 Lactulose 10 Gm/15 Ml Solution, 30 ML PO DAILY PRN for CONSTIPATION-3RD LINE, (Reported) Levetiracetam 1,000 Mg Tablet, 1,000 MG PO BID, (Reported) Melatonin 3 Mg Tablet, 3 MG PO HS, (Reported) Meloxicam 15 Mg Tablet, 15 MG PO DAILY, (Reported) Methotrexate Sodium 2.5 Mg Tablet, 10 MG PO MON, (Reported) TAKES 4 (2.5MG) TABS Miconazole Nitrate 90 Gm Powder, 1 APPLIC TP Q2H PRN for GAULDING,REDNESS,ITCHING, (Reported) Mirtazapine 15 Mg Tab.rapdis, 15 MG PO HS, (Reported) Nystatin 15 Gm Cream..g., 15 GM TP BID, (Reported) Pantoprazole Sodium 40 Mg Tablet.dr, 40 MG PO DAILY, (Reported) Polyethylene Glycol 3350 17 Gm Powd.pack, 17 GM PO DAILY PRN for CONSTIPATION- 2ND LINE, (Reported) Potassium Chloride 10 Meq Tablet.er, 10 MEQ PO DAILY Prescribed by: DWAYNE ROSS on 08/20/201127 Pramipexole Di-HCl 0.5 Mg Tablet, 0.5 MG PO TID, (Reported) Quetiapine Fumarate 50 Mg Tablet, 50 MG PO HS, (Reported) TAKES 50MG DAILY AND 150MG (100MG + 50MG) AT BEDTIME Quetiapine Fumarate 100 Mg Tablet, 100 MG PO HS, (Reported) TAKES A 100MG +50MG TO EQUAL 150MG Tamsulosin HCl 0.4 Mg Cap, 0.4 MG PO DAILY, (Reported) Topiramate 50 Mg Tablet, 50 MG PO BID, (Reported) Zinc Oxide 28 Gm Oint, 1 APPLIC TP EVERY 2 HOURS PRN for GAULDING/REDNESS/ITCHING, (Reported) APPLY NEEDED FOR BRIEF CHANGE [Bethanechol Chloride] , 25 MG PO QID, (Reported) Patient Home Medication List Home Medication List Reviewed: Yes Review of Systems Review of Systems Constitutional: No chills, No diaphoresis Eyes: Denies Blindness, Denies Pain Ears, Nose, Mouth, Throat: denies ear pain, denies nose pain Respiratory: No cough, No short of breath Cardiovascular: No chest pain, No edema, No palpitations Gastrointestinal: No abdominal pain, No constipation, No diarrhea, No nausea Genitourinary: No discharge, No dysuria Musculoskeletal: back pain, joint pain (Left elbow right wrist) All Other Systems Reviewed Negative Unless Noted: Yes Past Hkpbqls-Gxbryf-Pdmxub Hx Patient Social History Alcohol Use: Denies Use Smoking Status: Former Smoker Type Used: Cigarettes Former Smoker, Quit: Jul 05, 2013 2nd Hand Smoke Exposure: Yes Recent Hopitalizations: No Immunizations Up To Date Tetanus Booster (TDap): Unknown PED Vaccines UTD: No Date of Pneumonia Vaccine: Apr 07, 2018 Date of Influenza Vaccine: Feb 10, 2020 Seasonal Allergies Seasonal Allergies: No Past Medical History Surgeries: Yes Gallbladder, Lumpectomy Respiratory: Yes (BRONCHITIS) Chronic Bronchitis Currently Using CPAP: No Cardiac: Yes Chronic Edema/Swelling, Coronary Artery Disease, High Cholesterol, Hypertension, Rheumatic Fever Neurological: Yes (ENCEPHALITIS, restless leg syndrome) Concussion, Dementia, Seizure Disorder, Traumatic Brain Injury, Vertigo Reproductive Disorders: No Female Reproductive Disorders: Denies 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 Sexually Transmitted Disease: No HIV/AIDS: No Genitourinary: Yes (CHRONIC RENAL INSUFFICIENCY; BLADDER CONTROL ISSUES?) Gastrointestinal: Yes ("STOMACH DISCOMFORT"--POST-CHOLECYSTECTOMY SYNDROME) Gastroesophageal Reflux, Chronic Constipation, Chronic Diarrhea, Gall Bladder Disease, Irritable Bowel Musculoskeletal: Yes Arthritis Endocrine: No HEENT: Yes (READING GLASSES) Loss of Vision: Bilateral Hearing Impairment: Denies Cancer: No Psychosocial: Yes Sleep Difficulties, Bipolar Integumentary: Yes Psoriasis Blood Disorders: No Adverse Reaction/Blood Tranf: No Family Medical History Cancer 03 FATHER (PANCREATIC CANCER) 09 BROTHER ( AT AGE 10) Family history: Cardiovascular disease 03 MOTHER Family history: Diabetes mellitus 03 MOTHER Heart disease 03 MOTHER No Pertinent Family Hx Physical Exam Vital Signs Vital Signs - First Documented Capillary Refill : Height, Weight, BMI Height: 5'4.00" Weight: 166lbs. 0.0oz. [id number]; 32.00 BMI Method:Stated General Appearance: WD/WN, mild distress HEENT: PERRL/EOMI, pharynx normal Neck: full range of motion, normal inspection Cardiovascular: normal peripheral pulses, regular rate, rhythm Respiratory: chest non-tender, lungs clear, normal breath sounds, no respiratory distress, no accessory muscle use Peripheral Pulses: 2+ Radial Pulses (R), 2+ Radial Pulses (L) Gastrointestinal: normal bowel sounds, non tender, soft Extremities: normal range of motion, normal capillary refill, other (Tenderness over bilateral hips but no tenderness over the right wrist. Some deformity of the right wrist. Mild tenderness over the left elbow. Full range of motion all joints.) Neurologic/Psychiatric: alert, normal mood/affect, oriented x 3 Skin: normal color, warm/dry Debbie Coma Score Best Eye Response: (4) Open Spontaneously Best Verbal Response: (5) Oriented Best Motor Response: (6) Obeys Commands Jenks Total: 15 Progress/Results/Core Measures Results/Orders Lab Results Laboratory Tests Test 11/20/20 22:37 11/20/20 22:50 Range/Units Urine Color YELLOW Urine Clarity CLEAR Urine pH 6.0 5-9 Urine Specific Hammond 1.015 L 1.016-1.022 Urine Protein NEGATIVE NEGATIVE Urine Glucose (UA) NEGATIVE NEGATIVE Urine Ketones NEGATIVE NEGATIVE Urine Nitrite NEGATIVE NEGATIVE Urine Bilirubin NEGATIVE NEGATIVE Urine Urobilinogen 1.0 < = 1.0 MG/DL Urine Leukocyte Esterase NEGATIVE NEGATIVE Urine RBC (Auto) NEGATIVE NEGATIVE Urine RBC NONE /HPF Urine WBC NONE /HPF Urine Crystals NONE /LPF Urine Bacteria TRACE /HPF Urine Casts NONE /LPF Urine Mucus NEGATIVE /LPF Urine Culture Indicated NO White Blood Count 3.3 L 4.3-11.0 10^3/uL Red Blood Count 2.90 L 3.80-5.11 10^6/uL Hemoglobin 10.4 L 11.5-16.0 g/dL Hematocrit 31 L 35-52 % Mean Corpuscular Volume 107 H 80-99 fL Mean Corpuscular Hemoglobin 36 H 25-34 pg Mean Corpuscular Hemoglobin Concent 34 32-36 g/dL Red Cell Distribution Width 16.4 H 10.0-14.5 % Platelet Count 50 L 130-400 10^3/uL Mean Platelet Volume 10.4 9.0-12.2 fL Immature Granulocyte % (Auto) 1 % Neutrophils (%) (Auto) 46 42-75 % Lymphocytes (%) (Auto) 40 12-44 % Monocytes (%) (Auto) 11 0-12 % Eosinophils (%) (Auto) 2 0-10 % Basophils (%) (Auto) 1 0-10 % Neutrophils # (Auto) 1.5 L 1.8-7.8 10^3/uL Lymphocytes # (Auto) 1.3 1.0-4.0 10^3/uL Monocytes # (Auto) 0.4 0.0-1.0 10^3/uL Eosinophils # (Auto) 0.1 0.0-0.3 10^3/uL Basophils # (Auto) 0.0 0.0-0.1 10^3/uL Immature Granulocyte # (Auto) 0.0 0.0-0.1 10^3/uL Sodium Level 138 135-145 MMOL/L Potassium Level 3.1 L 3.6-5.0 MMOL/L Chloride Level 97 L 98-107 MMOL/L Carbon Dioxide Level 30 21-32 MMOL/L Anion Gap 11 5-14 MMOL/L Blood Urea Nitrogen 24 H 7-18 MG/DL Creatinine 1.19 0.60-1.30 MG/DL Estimat Glomerular Filtration Rate 45 BUN/Creatinine Ratio 20 Glucose Level 101 70-105 MG/DL Calcium Level 8.7 8.5-10.1 MG/DL Corrected Calcium 9.1 8.5-10.1 MG/DL Total Bilirubin 0.6 0.1-1.0 MG/DL Aspartate Amino Transf (AST/SGOT) 238 H 5-34 U/L Alanine Aminotransferase (ALT/SGPT) 196 H 0-55 U/L Alkaline Phosphatase 199 H 40-136 U/L Total Protein 6.6 6.4-8.2 GM/DL Albumin 3.5 3.2-4.5 GM/DL Smear Scan YES My Orders Orders - MACY GLYNN Elbow, Left, 3 Views (11/20/20 22:33) Pelvis/[place] Hips 5> Views (11/20/20 22:33) Ct Head/Face/Cervical Wo (11/20/20 22:33) Ct Lumbar Spine Wo (11/20/20 22:33) Ua Culture If Indicated (11/20/20 22:33) Cbc With Automated Diff (11/20/20 22:33) Comprehensive Metabolic Panel (11/20/20 22:33) Ed Iv/Invasive Line Start (11/20/20 22:33) Ns Iv 500 Ml (Sodium Chloride 0.9%) (11/20/20 22:45) Ceftriaxone For Iv Use (Rocephin For I (11/20/20 22:45) Fentanyl Inj (Sublimaze Injection) (11/20/20 23:00) Wrist, Right, 3 Views Or More (11/20/20 23:09) Medications Given in ED Current Medications Medications Dose Ordered Sig/Cory Route Start Time Stop Time Status Last Admin Dose Admin Ceftriaxone Sodium 1000 mg/ Sterile Water 10 ml @ 200 mls/hr ONCE ONCE IV 11/20/20 22:45 11/20/20 22:47 DC 11/20/20 22:58 200 MLS/HR Fentanyl Citrate 25 mcg ONCE ONCE IVP 11/20/20 23:00 11/20/20 23:01 DC 11/20/20 22:58 25 MCG Sodium Chloride 500 ml @ 0 mls/hr Q0M ONCE IV 11/20/20 22:45 11/20/20 22:46 DC 11/20/20 22:58 500 MLS/HR Vital Signs/I&O 11/20/20 11/20/20 11/21/20 22:24 22:24 01:38 Temp 35.6 35.6 Pulse 66 66 63 Resp 18 18 18 B/P (MAP) 94/52 (66) 94/52 (66) 108/80 Pulse Ox 99 99 100 Progress Progress Note : Time: 23:13 Progress Note Plan check some labs and urine given her cellulitic appearance of bilateral lower extremities with left foot wound that may have started out as a plantar wart. She is not on antibiotics per her medication administration record that accompanies her. She does not have a fever tachycardia or other symptoms of sepsis. X-ray her right wrist bilateral hips because they are tender to palpation, her lumbar spine since she was having pain there and head neck and face. Diagnostic Imaging Diagonstic Imaging: Xray Plain Films/CT/US/NM/MRI: other (Right wrist) Comments Fracture of the distal radial head, right as well as styloid process avulsion fracture of the ulna. Reviewed: Reviewed by Me Diagonstic Imaging: Xray Plain Films/CT/US/NM/MRI: pelvis, hip (Bilateral) Comments No acute osseous abnormality Reviewed: Reviewed by Me Diagonstic Imaging: Xray Plain Films/CT/US/NM/MRI: elbow (Left) Comments No acute osseous abnormality Reviewed: Reviewed by Me Diagonstic Imaging: CT Plain Films/CT/US/NM/MRI: facial bones, c-spine, head Comments No acute intracranial abnormality. No acute abnormality of the face. No acute fracture of the C-spine. Heterogenous thyroid gland with multiple small calcifications, consider ultrasound correlation. Reviewed: Reviewed [place] Hawk Study, Reviewed by Me Diagonstic Imaging: CT Plain Films/CT/US/NM/MRI: other (Lumbar spine) Comments No definite acute fracture. Possible calcified extrusion type disc herniations at L3-L4 and L2-L3 as described. Calcified epidural masses are also on the differential but statistically considered less likely. Reviewed: Reviewed [place] Hawk Study, Reviewed by Me Departure Impression Primary Impression: Fall from bed Qualified Codes: W06.XXXA - Fall from bed, initial encounter Additional Impressions: Epistaxis due to trauma Multiple thyroid nodules Right wrist fracture Qualified Codes: S62.101A - Fracture of unspecified carpal bone, right wrist, initial encounter for closed fracture Leukopenia Qualified Codes: D72.819 - Decreased white blood cell count, unspecified Disposition: 01 HOME, SELF-CARE Condition: Stable Departure-Patient Inst. Decision time for Depature: 00:47 Referrals: JOVON LING MD (PCP/Family) Primary Care Physician BARB ISLAS MD Patient Instructions: Forearm and Wrist Fractures ED Add. Discharge Instructions: Follow-up with orthopedic surgery, Dr. Islas by calling for an appointment tomorrow. See him in the next week. Ice applied for 20 minutes every 2 hours while awake for the first 2 to 3 days to the right wrist. Tylenol 650 mg every 8 hours as necessary for pain. Hydrocodone 1 tablet every 6 hours as necessary for breakthrough pain. Topical creams such as icy hot or Biofreeze for the wrist. All discharge instructions reviewed with patient and/or family. Voiced understanding. Scripts Hydrocodone/Acetaminophen (Hydrocodone-Acetamin 5-325 mg) 1 Each Tablet 1 TAB PO Q6H PRN for PAIN-MODERATE (5-7), #15 TAB 0 Refills Prov: MACY GLYNN 11/21/20 Copy Copies To 1: BARB ISLAS MD, TITUS J November 20, 2020 23:15
[2020-11-21] MEDS ORDERED: ACHD5005 PO (00:50)
[2020-11-21 01:38] VITALS: BP 108/80
--- NOTE | 2020-11-21 07:04 | Diagnostic Imaging Report ---
PROCEDURE: CT head, face, and cervical spine without contrast. TECHNIQUE: Multiple contiguous axial images were obtained through the head, neck, and facial bones without the use of intravenous contrast. Sagittal and coronal reformations through the cervical spine and facial bones were also performed. Auto Exposure Controls were utilized during the CT exam to meet ALARA standards for radiation dose reduction. INDICATION: Trauma, fall COMPARISON: 08/18/2020 FINDINGS: No intracranial hemorrhage. No intracranial mass, mass effect, midline shift, herniation, hydrocephalus, or extra-axial fluid collection. No CT evidence of an acute ischemic infarction. The bilateral ocular lenses are absent. The paranasal sinuses are clear. The calvarium and extra calvarial soft tissues are unremarkable. The paranasal sinuses are clear. No acute facial fracture. The bilateral ocular lenses are absent. The orbits are otherwise unremarkable. Muscles of mastication are unremarkable. Parapharyngeal fat is symmetric and well-maintained. The patient is partially edentulous, particularly involving the maxilla. No temporomandibular joint dislocation. Alignment of the cervical spine is well maintained. Alignment of the atlantooccipital joint is well maintained. Besides endplate degenerative changes, vertebral body heights are well-maintained. Severe disc space height loss at C3/C4 and mild disc space height loss at C5/C6. No acute fracture or dislocation. No destructive osseous process. Scattered facet joint degenerative changes and uncovertebral joint hypertrophy. No apical pneumothorax. The thyroid gland is heterogeneous with several nodules and calcifications present. IMPRESSION: No acute intracranial abnormality. No acute facial fracture. No acute osseous abnormality of the cervical spine with multilevel degenerative changes present. Heterogeneous and nodular thyroid gland. Recommend a thyroid ultrasound for further evaluation if this has not previously been evaluated. Agree with preliminary interpretation. Dictated by: Dictated on workstation # [id number]
--- NOTE | 2020-11-21 07:20 | Diagnostic Imaging Report ---
INDICATION: Pain, trauma COMPARISON: 11/15/2020 TECHNIQUE: 5 radiographs of the pelvis and bilateral hips dated 11/20/2020. FINDINGS: Curvature of the spine with mild degenerative changes. The sacroiliac joints and pubic symphysis appear intact. No acute fracture or dislocation. No destructive osseous process. Bilateral femoral heads maintain a normal shape and contour. IMPRESSION: No acute osseous abnormality with mild degenerative changes, particularly within the visualized lumbar spine. Dictated by: Dictated on workstation # [id number]
--- NOTE | 2020-11-21 07:27 | Diagnostic Imaging Report ---
Indication: Elbow pain, fall COMPARISON: None available TECHNIQUE: 3 radiographs of the left elbow dated 11/20/2020 FINDINGS: No acute fracture or dislocation. No destructive osseous process. No elbow joint effusion. No suspicious radiopaque foreign body. IMPRESSION: No acute osseous abnormality. Dictated by: Dictated on workstation # [id number]
--- NOTE | 2020-11-21 07:31 | Diagnostic Imaging Report ---
INDICATION: Wrist pain, fall. COMPARISON: 10/02/2020 TECHNIQUE: 3 radiographs of the right wrist are obtained dated 11/20/2020. FINDINGS: Fracture involving the ulnar styloid is again identified, slightly distracted, and stable from the prior examination. Distal radial fracturing with posterior displacement and dorsal tilt is again identified, appearing relatively similar when compared to the prior examination. Persistent fracture lucencies remain. Persistent lateral displacement is again seen and stable. No new fracture. No new dislocation. Widening of the scapholunate interval, stable from prior examination. No suspicious radiopaque foreign body. IMPRESSION: Persistent distal radial and ulnar fractures as described above, appearing similar to the prior examination. Given persisting fracture lucencies, developing at least partial nonunion is likely. Stable widening of the scapholunate interval, concerning for injury to the scapholunate ligament. No new acute osseous abnormality. Dictated by: Dictated on workstation # [id number]
--- NOTE | 2020-11-21 08:39 | Diagnostic Imaging Report ---
PROCEDURE: CT lumbar spine without contrast. TECHNIQUE: Multiple contiguous axial images were obtained through the lumbar spine without the use of intravenous contrast. Sagittal and coronal reformations were then performed. Auto Exposure Controls were utilized during the CT exam to meet ALARA standards for radiation dose reduction. INDICATION: Trauma, fall COMPARISON: 03/13/2020 CT chest, abdomen, and pelvis FINDINGS: Degenerative levoscoliosis of the lumbar spine with apex at L2-L3 is unchanged. No new spondylolisthesis. No fracture of the vertebral bodies or posterior elements. Diffuse degenerative disc disease is present. There are multiple sites of disc herniation and protrusions. Vacuum disc phenomenon is present at multiple levels. Posterior to the L4 vertebral body there is some dense mineralized epidural process in the left epidural space likely due to calcified disc material. This results in severe spinal stenosis. No concerning abnormality in the retroperitoneum. Vascular calcifications are noted of the aorta and renal arteries. Paravertebral musculature is normal. IMPRESSION: 1. No acute fracture or traumatic malalignment in the cervical spine. 2. Mineralized epidural process posterior to the L4 vertebral bodies likely herniated disc that is mineralized. This results in severe spinal stenosis. If it will alter the patient's management, consider lumbar spine MRI for further evaluation. 3. Findings are in agreement with the preliminary report. Dictated by: Dictated on workstation # [id number]
== END 2020-11-21 01:39 | disposition home or self-care (01) ==
LOC: EDUNIT# 22:24 → ER 22:25
DX: S52.501A Unspecified fracture of the lower end of right radius, initial encounter for closed fracture (principal); S52.611A Displaced fracture of right ulna styloid process, initial encounter for closed fracture; M54.5 Low back pain; M25.551 Pain in right hip; M25.552 Pain in left hip; M25.522 Pain in left elbow; M54.2 Cervicalgia; R51.9 Headache, unspecified; D72.819 Decreased white blood cell count, unspecified; R04.0 Epistaxis; E04.2 Nontoxic multinodular goiter; I10 Essential (primary) hypertension; I25.10 Atherosclerotic heart disease of native coronary artery without angina pectoris; G30.9 Alzheimer's disease, unspecified; F02.80 Dementia in other diseases classified elsewhere, unspecified severity, without behavioral disturbance, psychotic disturbance, mood disturbance, and anxiety; G40.909 Epilepsy, unspecified, not intractable, without status epilepticus; K21.9 Gastro-esophageal reflux disease without esophagitis; K59.09 Other constipation; F31.9 Bipolar disorder, unspecified; G25.81 Restless legs syndrome; Z87.891 Personal history of nicotine dependence; Z77.22 Contact with and (suspected) exposure to environmental tobacco smoke (acute) (chronic); Z79.82 Long term (current) use of aspirin; Z79.899 Other long term (current) drug therapy; W06.XXXA Fall from bed, initial encounter
CPT/HCPCS: 36415; 70450; 70486; 72125; 72131; 73080; 73110; 73523; 80053; 81000; 85025

== ENCOUNTER → 2020-11-27 | Outpatient (CLI) | payer MEDICARE, BC, MEDICAID ==
[~2020-11-27] MED LIST changes: +DICL20GE TP; +HYDR-3817 PO
[2020-11-28 15:29] LABS: ABSOLUTE RETIC # 94 10e9/uL (24-90); RETICULOCYTE % 2.92 % (0.50-2.40)
[2020-11-28 15:32] LABS: EOSINOPHILS % (MANUAL) 4 %; LYMPHOCYTES % (MANUAL) 49 %; MONOCYTES % (MANUAL) 11 %; NEUTROPHILS % (MANUAL) 36 %; STOMATOCYTES MODERATE; TARGET CELLS SLIGHT
== END ==
LOC: GIR 14:46
PROVIDERS: ATTEND Nurse Practitioner Family
DX: Z01.89 Encounter for other specified special examinations (principal)
CPT/HCPCS: 85007; 85045; 85055

== ENCOUNTER 2020-12-05 15:37 | Emergency (ER) | payer MEDICARE, BC, MEDICAID ==
[~2020-12-05] VITALS: Ht 149 cm; Wt 68.0 kg
[~2020-12-05 15:37] MED LIST changes: -DICL20GE TP; -HYDR-3817 PO
[2020-12-05] MEDS ORDERED: HYDROcodone/APAP 5 MG/325 MG (LORTAB) TAB PO ONE (15:45)
--- NOTE | 2020-12-05 15:48 | ED Fall/Injury ---
General Stated Complaint: FELL Source: patient, EMS Exam Limitations: no limitations History of Present Illness Date Seen by Provider: Dec 05, 2020 Time Seen by Provider: 15:30 Initial Comments To ER by EMs from retirement with c/o fall. Unwitnessed. Pt is alert and oriented, she reports pain all over but it seems that the new pain as a result of this fall is her low back. Occurred: just prior to arrival Severity: moderate Injuries/Pain Location: back Context: unknown Loss of Consciousness: no loss of consciousness Associated Symptoms (Fall): Denies Symptoms Allergies and Home Medications Allergies Coded Allergies: Penicillins (Verified Allergy, Mild, 07/18/20) latex (Verified Allergy, Mild, 07/18/20) Home Medications Acetaminophen 325 Mg Capsule, 650 MG PO Q6H PRN for PAIN-MILD (1-4), (Reported) TAKES 2 (325MG) TABLETS Albuterol Sulfate 0.63 Mg/3 Ml Vial.neb, 0.63 MG IH Q2H PRN for SHORTNESS OF BREATH, (Reported) Albuterol Sulfate 1 Puff Puff, 2 PUFF INH Q2H PRN for SHORTNESS OF BREATH, (Reported) Ascorbic Acid 1,000 Mg Tablet, 1,000 MG PO DAILY, (Reported) Aspirin 81 Mg Tablet.dr, 81 MG PO DAILY, (Reported) Benzonatate 100 Mg Capsule, 100 MG PO Q8H PRN for COUGH, (Reported) Cephalexin 500 Mg Tablet, 500 MG PO TID Prescribed by: JANAE MUNOZ on 10/22/20 1224 Clobetasol Propionate 118 Ml Shampoo, 1 APPLIC TOP Q72H, (Reported) Clobetasol Propionate 59 Ml [place], 1 APPLIC TOP BID, (Reported) Diphenhydramine HCl 25 Mg Capsule, 50 MG PO Q6H PRN for ALLERGIC REACTION, (Reported) TAKES 2 (25MG) TABLETS Divalproex Sodium 500 Mg Tab.er.24h, 1,000 MG PO BID, (Reported) TAKES 2 (500MG) TABS Duloxetine HCl 60 Mg Capsule.dr, 60 MG PO DAILY, (Reported) Folic Acid 1 Mg Tablet, 1 MG PO DAILY, (Reported) Furosemide 40 Mg Tablet, 40 MG PO DAILY Prescribed by: DWAYNE ROSS on 08/20/20 1128 Hydrocodone/Acetaminophen 1 Each Tablet, 1 TAB PO Q4H PRN for PAIN-MODERATE (5- 7), (Reported) Hydrocodone/Acetaminophen 1 Each Tablet, 1 TAB PO Q6H PRN for PAIN-MODERATE (5- 7) Prescribed by: MACY GLYNN on 11/21/20 0050 Lactulose 10 Gm/15 Ml Solution, 30 ML PO DAILY PRN for CONSTIPATION-3RD LINE, (Reported) Levetiracetam 1,000 Mg Tablet, 1,000 MG PO BID, (Reported) Melatonin 3 Mg Tablet, 3 MG PO HS, (Reported) Meloxicam 15 Mg Tablet, 15 MG PO DAILY, (Reported) Methotrexate Sodium 2.5 Mg Tablet, 10 MG PO MON, (Reported) TAKES 4 (2.5MG) TABS Miconazole Nitrate 90 Gm Powder, 1 APPLIC TP Q2H PRN for GAULDING,REDNESS,ITCHING, (Reported) Mirtazapine 15 Mg Tab.rapdis, 15 MG PO HS, (Reported) Nystatin 15 Gm Cream..g., 15 GM TP BID, (Reported) Pantoprazole Sodium 40 Mg Tablet.dr, 40 MG PO DAILY, (Reported) Polyethylene Glycol 3350 17 Gm Powd.pack, 17 GM PO DAILY PRN for CONSTIPATION- 2ND LINE, (Reported) Potassium Chloride 10 Meq Tablet.er, 10 MEQ PO DAILY Prescribed by: DWAYNE ROSS on 08/20/20 1128 Pramipexole Di-HCl 0.5 Mg Tablet, 0.5 MG PO TID, (Reported) Quetiapine Fumarate 50 Mg Tablet, 50 MG PO HS, (Reported) TAKES 50MG DAILY AND 150MG (100MG + 50MG) AT BEDTIME Quetiapine Fumarate 100 Mg Tablet, 100 MG PO HS, (Reported) TAKES A 100MG +50MG TO EQUAL 150MG Tamsulosin HCl 0.4 Mg Cap, 0.4 MG PO DAILY, (Reported) Topiramate 50 Mg Tablet, 50 MG PO BID, (Reported) Zinc Oxide 28 Gm Oint, 1 APPLIC TP EVERY 2 HOURS PRN for GAULDING/REDNESS/ITCHING, (Reported) APPLY NEEDED FOR BRIEF CHANGE [Bethanechol Chloride] , 25 MG PO QID, (Reported) Patient Home Medication List Home Medication List Reviewed: Yes Review of Systems Review of Systems Constitutional: see HPI Eyes: No Symptoms Reported Ears, Nose, Mouth, Throat: no symptoms reported Cardiovascular: no symptoms reported Genitourinary: no symptoms reported Musculoskeletal: see HPI Skin: no symptoms reported Psychiatric/Neurological: No Symptoms Reported Past Jmtdfhd-[id number] Hx Patient Social History Type Used: Cigarettes Former Smoker, Quit: Jul 05, 2013 2nd Hand Smoke Exposure: Yes Recent Hopitalizations: No Immunizations Up To Date Tetanus Booster (TDap): Unknown PED Vaccines UTD: No Date of Pneumonia Vaccine: Apr 07, 2018 Date of Influenza Vaccine: Feb 10, 2020 Seasonal Allergies Seasonal Allergies: No Past Medical History Surgeries: Yes Gallbladder, Lumpectomy Respiratory: Yes (BRONCHITIS) Chronic Bronchitis Currently Using CPAP: No Cardiac: Yes Chronic Edema/Swelling, Coronary Artery Disease, High Cholesterol, Hypertension, Rheumatic Fever Neurological: Yes (ENCEPHALITIS, restless leg syndrome) Concussion, Dementia, Seizure Disorder, Traumatic Brain Injury, Vertigo Reproductive Disorders: No Female Reproductive Disorders: Denies [employer] History: Menopausal Sexually Transmitted Disease: No HIV/AIDS: No Genitourinary: Yes (CHRONIC RENAL INSUFFICIENCY; BLADDER CONTROL ISSUES?) Gastrointestinal: Yes ("STOMACH DISCOMFORT"--POST-CHOLECYSTECTOMY SYNDROME) Gastroesophageal Reflux, Chronic Constipation, Chronic Diarrhea, Gall Bladder Disease, Irritable Bowel Musculoskeletal: Yes Arthritis Endocrine: No HEENT: Yes (READING GLASSES) Loss of Vision: Bilateral Hearing Impairment: Denies Cancer: No Psychosocial: Yes Sleep Difficulties, Bipolar Integumentary: Yes Psoriasis Blood Disorders: No Adverse Reaction/Blood Tranf: No Family Medical History Cancer 03 FATHER (PANCREATIC CANCER) 09 BROTHER ( AT AGE 10) Family history: Cardiovascular disease 03 MOTHER Family history: Diabetes mellitus 03 MOTHER Heart disease 03 MOTHER No Pertinent Family Hx Physical Exam Vital Signs Vital Signs - First Documented 12/05/20 15:40 Temp 36.9 Pulse 71 Resp 17 B/P (MAP) 129/60 (83) Pulse Ox 100 O2 Delivery Room Air Capillary Refill : Height, Weight, BMI Height: 5'4.00" Weight: 166lbs. 0.0oz. 75.774818nh; 32.00 BMI Method:Stated General Appearance: WD/WN, no apparent distress HEENT: PERRL/EOMI, normal ENT inspection Neck: non-tender, full range of motion Respiratory: no respiratory distress, no accessory muscle use Gastrointestinal: normal bowel sounds, non tender, soft Back: other (There is some brownish colored bruising to the left flank. There is no new or acute ecchymoses or erythema visualized.) Extremities: normal range of motion, non-tender Neurologic/Psychiatric: alert, normal mood/affect, oriented x 3 Skin: normal color, warm/dry Davis Coma Score Best Eye Response: (4) Open Spontaneously Best Verbal Response: (5) Oriented Best Motor Response: (6) Obeys Commands Davis Total: 15 Progress/Results/Core Measures Results/Orders Lab Results Laboratory Tests Test 12/05/20 18:05 Range/Units White Blood Count 9.1 4.3-11.0 10^3/uL Red Blood Count 3.11 L 3.80-5.11 10^6/uL Hemoglobin 11.2 L 11.5-16.0 g/dL Hematocrit 33 L 35-52 % Mean Corpuscular Volume 107 H 80-99 fL Mean Corpuscular Hemoglobin 36 H 25-34 pg Mean Corpuscular Hemoglobin Concent 34 32-36 g/dL Red Cell Distribution Width 17.0 H 10.0-14.5 % Platelet Count 146 130-400 10^3/uL Mean Platelet Volume 10.9 9.0-12.2 fL Immature Granulocyte % (Auto) 2 % Neutrophils (%) (Auto) 49 42-75 % Lymphocytes (%) (Auto) 16 12-44 % Monocytes (%) (Auto) 31 H 0-12 % Eosinophils (%) (Auto) 2 0-10 % Basophils (%) (Auto) 0 0-10 % Neutrophils # (Auto) 4.5 1.8-7.8 10^3/uL Lymphocytes # (Auto) 1.5 1.0-4.0 10^3/uL Monocytes # (Auto) 2.8 H 0.0-1.0 10^3/uL Eosinophils # (Auto) 0.1 0.0-0.3 10^3/uL Basophils # (Auto) 0.0 0.0-0.1 10^3/uL Immature Granulocyte # (Auto) 0.2 H 0.0-0.1 10^3/uL Neutrophils % (Manual) 53 % Lymphocytes % (Manual) 13 % Monocytes % (Manual) 29 % Eosinophils % (Manual) 3 % Band Neutrophils 1 % Polychromasia SLIGHT Macrocytosis MODERATE Stomatocytes SLIGHT Sodium Level 135 135-145 MMOL/L Potassium Level 4.4 3.6-5.0 MMOL/L Chloride Level 105 98-107 MMOL/L Carbon Dioxide Level 17 L 21-32 MMOL/L Anion Gap 13 5-14 MMOL/L Blood Urea Nitrogen 28 H 7-18 MG/DL Creatinine 1.07 0.60-1.30 MG/DL Estimat Glomerular Filtration Rate 51 BUN/Creatinine Ratio 26 Glucose Level 148 H 70-105 MG/DL Calcium Level 8.7 8.5-10.1 MG/DL Corrected Calcium 9.3 8.5-10.1 MG/DL Total Bilirubin 0.8 0.1-1.0 MG/DL Aspartate Amino Transf (AST/SGOT) 60 H 5-34 U/L Alanine Aminotransferase (ALT/SGPT) 61 H 0-55 U/L Alkaline Phosphatase 220 H 40-136 U/L Total Protein 6.4 6.4-8.2 GM/DL Albumin 3.2 3.2-4.5 GM/DL My Orders Orders - RYAN VALENZUELA [employer]TERNAL [employer]ER Ct Head/Cervical Spine Wo (12/05/20 15:43) Ct Lumbar Spine Wo (12/05/20 15:43) Chest 1 View, Ap/Pa Only (12/05/20 15:43) Pelvis (12/05/20 15:43) Hydrocodone/Apap 5/325 Tablet (Lortab 5 (12/05/20 15:45) Forearm, Right, 2 Views (12/05/20 16:13) Cbc With Automated Diff (12/05/20 17:29) Comprehensive Metabolic Panel (12/05/20 17:29) Ns Iv 500 Ml (Sodium Chloride 0.9%) (12/05/20 18:00) Ns Iv 500 Ml (Sodium Chloride 0.9%) (12/05/20 17:42) Manual Differential (12/05/20 18:05) Cho 60g/M 3snack (16-2000 Jose) (12/05/20 Dinner) Hydrocodone/Apap 5/325 Tablet (Lortab 5 (12/05/20 18:37) Medications Given in ED Current Medications Medications Dose Ordered Sig/Cory Route Start Time Stop Time Status Last Admin Dose Admin Acetaminophen/ Hydrocodone Bitart 1 ea ONCE ONCE PO 12/05/20 15:45 12/05/20 15:46 DC 12/05/20 15:53 1 EA Acetaminophen/ Hydrocodone Bitart 1 ea STK-MED ONCE .ROUTE 12/05/20 18:37 12/05/20 18:47 DC 12/05/20 18:50 1 EA Vital Signs/I&O 12/05/20 12/05/20 15:40 20:22 Temp 36.9 Pulse 71 101 Resp 17 18 B/P (MAP) 129/60 (83) 105/45 Pulse Ox 100 97 O2 Delivery Room Air Room Air Departure Communication (Admissions) [id number] With the patient's brother, he would like her admitted inpatient rehab if possible, however she does not have any indication for that from the emergency room standpoint. I did check some labs to see if we can find anything that required admission, her labs are stable her liver enzymes are improving. She remains hemodynamically stable and I find no indication for hospitalization at this time. I did write some orders for the assisted living facility to call a director hydrogen storage engineering to evaluate the left foot which has the Charcot foot appearance and for [facility] [place] to evaluate for rehab in their facility. She had quite a bit of improvement in physical ability after administration of a second hydrocodone 5/325 NAME: AP[facility] V[facility]LA [facility] REC#: [id number] PT STATUS: REG ER : 1950 PHYSICIAN: RYAN VALENZUELA APRN ADMIT DATE: 12/05/20/ER Draft Date of Exam:12/05/20 CT LUMBAR SPINE WO PROCEDURE: CT lumbar spine without contrast. TECHNIQUE: Multiple contiguous axial images were obtained through the lumbar spine without the use of intravenous contrast. Sagittal and coronal reformations were then performed. Auto Exposure Controls were utilized during the CT exam to meet ALARA standards for radiation dose reduction. INDICATION: Fall. Compared with lumbar CT 11/20/2020. Leftward convexity mid lumbar scoliotic curvature. There is grade 1 left lateral listhesis of L3 on L4, alignment is unchanged. There is markedly spondylosis with degenerative disc space narrowing, endplate sclerosis, osteophytes and degenerative vacuum gas phenomena. Lumbar statures are within normal limits. No acute or suspect endplate irregularity. No paravertebral mass, hemorrhage or fluid collection. The partially visualized sacral alar and SI joints stable and nonacute. The aortoiliac vessels calcified but nonaneurysmal. The visualized portions of the kidneys are unobstructed and stable. At L1-L2 there is a stable moderate canal and moderate right foraminal stenosis owing to eccentric right-sided disc bulge L2-L3: Partly calcified demineralized right paramedian disc protrusion indents the ventral thecal sac is moderate to severe canal stenosis as well as moderate right and mild left foraminal stenoses unchanged. At L3-L4, there is broad-based left paramedian disc protrusion likely mineralized and calcified, presenting as a hyperdense ventral epidural mass effect. This results in severe central canal stenosis of the left lateral recess. There is also moderate to severe right greater than left foraminal stenoses. This is unchanged. At L4-L5 partly calcified bulging disc material, facet arthrosis and ligamentous thickening results in severe central canal stenosis with moderate biforaminal narrowing unchanged. L5-S1: Endplate osteophytes and bulging disc material result in severe left and [id number] right foraminal stenosis with mild canal stenosis unchanged. IMPRESSION: 1. A stable scoliotic curvature of left lateral listhesis, no fracture or acute bony pathology. 2. Bulging disc material ossified and unmineralized in conjunction with thickened ligamenta flava and endplate osteophytes result in substantial degrees of multilevel spinal canal neural foraminal and lateral recess stenoses appearing unchanged from the comparison, no acute-appearing bony abnormality. Dictated on workstation # [id number] Dict: 12/05/20 1646 Trans: 12/05/20 1658 [facility] [id number] Interpreted by: MARTINE LIZAMA Electronically signed by: Impression Primary Impression: Fall Additional Impressions: General deterioration of health Spinal stenosis Disposition: 01 HOME, SELF-CARE Condition: Stable Departure-Patient Inst. Decision time for Depature: 19:37 Referrals: JOVON LING MD (PCP/Family) Primary Care Physician Patient Instructions: Preventing Falls RYAN VALENZUELA EXTERNAL GR[employer] TENDER Dec 05, 2020 15:48
--- NOTE | 2020-12-05 16:44 | Diagnostic Imaging Report ---
INDICATION: Injury to right forearm AP and lateral views of the right forearm are obtained and compared to 11/20/2020. There is a comminuted displaced fracture of the distal radius with partial impaction. There is an ulnar styloid avulsion fracture. The proximal to mid portions of the radius and ulna are intact. These findings are unchanged compared with 11/20/2020. IMPRESSION: No change in impacted displaced fracture of distal radius compared to 11/20/2020. No change in the ulnar styloid avulsion. Proximal mid portions of the radius and ulna are intact. Dictated by: Dictated on workstation # [id number]
--- NOTE | 2020-12-05 16:44 | Diagnostic Imaging Report ---
INDICATION: Fall with pelvic pain. EXAMINATION: AP pelvis was obtained at 4:21 p.m. COMPARISON: 11/15/2020. FINDINGS: No fracture or acute bony abnormality is seen. IMPRESSION: Negative pelvis. Dictated by: Dictated on workstation # [id number]
--- NOTE | 2020-12-05 16:46 | Diagnostic Imaging Report ---
INDICATION: Fall. EXAMINATION: Frontal chest was obtained at 4:15 p.m. COMPARISON: 10/22/2020. FINDINGS: Heart and mediastinal silhouette are normal in appearance. The lungs are clear. No pneumothorax or pleural fluid. There is no overt bony abnormality in the chest. IMPRESSION: Negative chest. Dictated by: Dictated on workstation # [id number]
--- NOTE | 2020-12-05 16:54 | Diagnostic Imaging Report ---
PROCEDURE: CT head and CT cervical spine without contrast. TECHNIQUE: Multiple contiguous axial images were obtained through the brain and cervical spine without the use of intravenous contrast. Sagittal and coronal reformations through the cervical spine were then performed. Auto Exposure Controls were utilized during the CT exam to meet ALARA standards for radiation dose reduction. INDICATION: Fall. Head and neck pain. COMPARISON: CT head and cervical spine without contrast from 11/20/2020. FINDINGS: CT HEAD: Moderate generalized cerebral and cerebellar parenchymal volume loss is age appropriate. No CT evidence of a territorial infarction. No intracranial hemorrhage, mass effect, hydrocephalus, or extra-axial fluid collections. Osseous structures are intact. Visualized paranasal sinuses and mastoids are clear. CT CERVICAL SPINE: Stable grade 1 retrolisthesis of C2 on C3. Moderate degenerative endplate changes are greatest at C2-C3 and C4-C5. Vertebral body heights are preserved. No fractures. No high-grade spinal canal stenosis is evident on soft tissue windows. Stable multinodular appearance of the thyroid gland. The lung apices are clear. IMPRESSION: No acute intracranial or cervical spine CT findings. Chronic findings, as above. Dictated by: Dictated on workstation # [id number]
--- NOTE | 2020-12-05 16:59 | Diagnostic Imaging Report ---
PROCEDURE: CT lumbar spine without contrast. TECHNIQUE: Multiple contiguous axial images were obtained through the lumbar spine without the use of intravenous contrast. Sagittal and coronal reformations were then performed. Auto Exposure Controls were utilized during the CT exam to meet ALARA standards for radiation dose reduction. INDICATION: Fall. Compared with lumbar CT 11/20/2020. Leftward convexity mid lumbar scoliotic curvature. There is grade 1 left lateral listhesis of L3 on L4, alignment is unchanged. There is markedly spondylosis with degenerative disc space narrowing, endplate sclerosis, osteophytes and degenerative vacuum gas phenomena. Lumbar statures are within normal limits. No acute or suspect endplate irregularity. No paravertebral mass, hemorrhage or fluid collection. The partially visualized sacral alar and SI joints stable and nonacute. The aortoiliac vessels calcified but nonaneurysmal. The visualized portions of the kidneys are unobstructed and stable. At L1-L2 there is a stable moderate canal and moderate right foraminal stenosis owing to eccentric right-sided disc bulge L2-L3: Partly calcified demineralized right paramedian disc protrusion indents the ventral thecal sac is moderate to severe canal stenosis as well as moderate right and mild left foraminal stenoses unchanged. At L3-L4, there is broad-based left paramedian disc protrusion likely mineralized and calcified, presenting as a hyperdense ventral epidural mass effect. This results in severe central canal stenosis of the left lateral recess. There is also moderate to severe right greater than left foraminal stenoses. This is unchanged. At L4-L5 partly calcified bulging disc material, facet arthrosis and ligamentous thickening results in severe central canal stenosis with moderate biforaminal narrowing unchanged. L5-S1: Endplate osteophytes and bulging disc material result in severe left and [id number] right foraminal stenosis with mild canal stenosis unchanged. IMPRESSION: 1. A stable scoliotic curvature of left lateral listhesis, no fracture or acute bony pathology. 2. Bulging disc material ossified and unmineralized in conjunction with thickened ligamenta flava and endplate osteophytes result in substantial degrees of multilevel spinal canal neural foraminal and lateral recess stenoses appearing unchanged from the comparison, no acute-appearing bony abnormality. Dictated by: Dictated on workstation # [id number]
[2020-12-05] MEDS ORDERED: NS IV 500 ML 500 ML ONE (17:42)
[2020-12-05] MEDS ORDERED: NS IV 500 ML 500 ML IV SCH (18:00)
[2020-12-05 18:17] LABS: BASOPHILS % (AUTO) 0 % (0-10); EOSINOPHILS # (AUTO) 0.1 10^3/uL (0.0-0.3); EOSINOPHILS % (AUTO) 2 % (0-10); HEMATOCRIT 33 % (35-52); HEMOGLOBIN 11.2 g/dL (11.5-16.0); LYMPHOCYTES # (AUTO) 1.5 10^3/uL (1.0-4.0); LYMPHOCYTES % (AUTO) 16 % (12-44); MEAN CORPUSCULAR HEMOGLOBIN 36 pg (25-34); MEAN CORPUSCULAR HGB CONC 34 g/dL (32-36); MEAN CORPUSCULAR VOLUME 107 fL (80-99); MEAN PLATELET VOLUME 10.9 fL (9.0-12.2); MONOCYTES # (AUTO) 2.8 10^3/uL (0.0-1.0); MONOCYTES % (AUTO) 31 % (0-12); NEUTROPHILS # (AUTO) 4.5 10^3/uL (1.8-7.8); NEUTROPHILS % (AUTO) 49 % (42-75); PLATELET COUNT 146 10^3/uL (130-400); WHITE BLOOD COUNT 9.1 10^3/uL (4.3-11.0)
[2020-12-05] MEDS ORDERED: HYDROcodone/APAP 5 MG/325 MG (LORTAB) TAB ONE (18:37)
[2020-12-05 18:42] LABS: ALBUMIN 3.2 GM/DL (3.2-4.5); POTASSIUM 4.4 MMOL/L (3.6-5.0)
[2020-12-05 18:43] LABS: CALCIUM 8.7 MG/DL (8.5-10.1)
[2020-12-05 18:45] LABS: TOTAL PROTEIN 6.4 GM/DL (6.4-8.2)
[2020-12-05 18:46] LABS: BILIRUBIN,TOTAL 0.8 MG/DL (0.1-1.0)
[2020-12-05 18:48] LABS: CREATININE SERUM 1.07 MG/DL (0.60-1.30)
[2020-12-05 19:31] LABS: BAND NEUTROPHILS 1 %; EOSINOPHILS % (MANUAL) 3 %; LYMPHOCYTES % (MANUAL) 13 %; MONOCYTES % (MANUAL) 29 %; NEUTROPHILS % (MANUAL) 53 %; POLYCHROMASIA SLIGHT; STOMATOCYTES SLIGHT
[2020-12-05 20:22] VITALS: BP 105/45
== END 2020-12-05 20:28 | disposition home or self-care (01) ==
LOC: EDUNIT# 15:37 → ER 15:42
DX: S30.1XXA Contusion of abdominal wall, initial encounter (principal); M48.061 Spinal stenosis, lumbar region without neurogenic claudication; R53.81 Other malaise; I12.9 Hypertensive chronic kidney disease with stage 1 through stage 4 chronic kidney disease, or unspecified chronic kidney disease; N18.9 Chronic kidney disease, unspecified; I25.10 Atherosclerotic heart disease of native coronary artery without angina pectoris; F03.90 Unspecified dementia, unspecified severity, without behavioral disturbance, psychotic disturbance, mood disturbance, and anxiety; G40.909 Epilepsy, unspecified, not intractable, without status epilepticus; G25.81 Restless legs syndrome; K21.9 Gastro-esophageal reflux disease without esophagitis; K59.09 Other constipation; F31.9 Bipolar disorder, unspecified; Z87.891 Personal history of nicotine dependence; Z79.82 Long term (current) use of aspirin; Z79.899 Other long term (current) drug therapy; W19.XXXA Unspecified fall, initial encounter
CPT/HCPCS: 36415; 70450; 71045; 72125; 72131; 72170; 73090; 80053; 85007; 85027

== ENCOUNTER 2020-12-09 05:59 | Emergency (ER) | payer MEDICARE, BC, MEDICAID ==
[~2020-12-09] VITALS: Ht 170.2 cm; Wt 99.8 kg
--- NOTE | 2020-12-09 06:18 | ED Upper Extremity ---
General Chief Complaint: Trauma-Non Activation Stated Complaint: FALL Source: patient, EMS Exam Limitations: no limitations History of Present Illness Date Seen by Provider: Dec 09, 2020 Time Seen by Provider: 06:05 Initial Comments Patient is a 70-year-old female who presents to the emergency department today by EMS with a chief complaint of pain all over after falling in the bathroom last night at a local long-term. Patient states that she was getting up off of the stool and thinks that she turned her head or look down and became dizzy and fell. Patient reportedly has been laying in the floor for the last 4 hours. She complains of neck pain back pain, leg pain, wrist pain. She states she is no longer dizzy. No recent illnesses. Reportedly the patient has had multiple falls recently. She states she does believe she is on a blood thinner for history of an irregular heartbeat. She states she did not hit her head this morning or have a loss of consciousness. Patient does have a history of Alzheimer's dementia. All other review of systems reviewed and negative except as stated above. Onset: this morning Severity: moderate Pain/Injury Location: bilateral wrist Method of Injury: fell Modifying Factors: Worse With Movement Allergies and Home Medications Allergies Coded Allergies: Penicillins (Verified Allergy, Mild, 07/18/20) latex (Verified Allergy, Mild, 07/18/20) Home Medications Acetaminophen 325 Mg Capsule, 650 MG PO Q6H PRN for PAIN-MILD (1-4), (Reported) TAKES 2 (325MG) TABLETS Albuterol Sulfate 0.63 Mg/3 Ml Vial.neb, 0.63 MG IH Q2H PRN for SHORTNESS OF BREATH, (Reported) Albuterol Sulfate 1 Puff Puff, 2 PUFF INH Q2H PRN for SHORTNESS OF BREATH, (Reported) Ascorbic Acid 1,000 Mg Tablet, 1,000 MG PO DAILY, (Reported) Aspirin 81 Mg Tablet.dr, 81 MG PO DAILY, (Reported) Benzonatate 100 Mg Capsule, 100 MG PO Q8H PRN for COUGH, (Reported) Cephalexin 500 Mg Tablet, 500 MG PO TID Prescribed by: JANAE MUNOZ on 10/22/20 1224 Clobetasol Propionate 118 Ml Shampoo, 1 APPLIC TOP Q72H, (Reported) Clobetasol Propionate 59 Ml [place], 1 APPLIC TOP BID, (Reported) Diclofenac Sodium 20 Gm Gel..gram., 20 GM TP DAILY PRN for PAIN-MILD (1-4) Prescribed by: JANAE MUNOZ on 12/09/20725 Diphenhydramine HCl 25 Mg Capsule, 50 MG PO Q6H PRN for ALLERGIC REACTION, (Reported) TAKES 2 (25MG) TABLETS Divalproex Sodium 500 Mg Tab.er.24h, 1,000 MG PO BID, (Reported) TAKES 2 (500MG) TABS Duloxetine HCl 60 Mg Capsule.dr, 60 MG PO DAILY, (Reported) Folic Acid 1 Mg Tablet, 1 MG PO DAILY, (Reported) Furosemide 40 Mg Tablet, 40 MG PO DAILY Prescribed by: DWAYNE ROSS on 08/20/20 1128 Hydrocodone/Acetaminophen 1 Each Tablet, 1 TAB PO Q4H PRN for PAIN-MODERATE (5- 7), (Reported) Hydrocodone/Acetaminophen 1 Each Tablet, 1 TAB PO Q6H PRN for PAIN-MODERATE (5- 7) Prescribed by: MACY GLYNN on 11/21/20 0050 Hydrocodone/Acetaminophen 1 Each Tablet, 1 EACH PO Q6H PRN for PAIN-MODERATE (5- 7) Prescribed by: JANAE MUNOZ on 12/09/20725 Lactulose 10 Gm/15 Ml Solution, 30 ML PO DAILY PRN for CONSTIPATION-3RD LINE, (Reported) Levetiracetam 1,000 Mg Tablet, 1,000 MG PO BID, (Reported) Melatonin 3 Mg Tablet, 3 MG PO HS, (Reported) Meloxicam 15 Mg Tablet, 15 MG PO DAILY, (Reported) Methotrexate Sodium 2.5 Mg Tablet, 10 MG PO MON, (Reported) TAKES 4 (2.5MG) TABS Miconazole Nitrate 90 Gm Powder, 1 APPLIC TP Q2H PRN for GAULDING,REDNESS,ITCHING, (Reported) Mirtazapine 15 Mg Tab.rapdis, 15 MG PO HS, (Reported) Nystatin 15 Gm Cream..g., 15 GM TP BID, (Reported) Pantoprazole Sodium 40 Mg Tablet.dr, 40 MG PO DAILY, (Reported) Polyethylene Glycol 3350 17 Gm Powd.pack, 17 GM PO DAILY PRN for CONSTIPATION- 2ND LINE, (Reported) Potassium Chloride 10 Meq Tablet.er, 10 MEQ PO DAILY Prescribed by: DWAYNE ROSS on 08/20/20 1128 Pramipexole Di-HCl 0.5 Mg Tablet, 0.5 MG PO TID, (Reported) Quetiapine Fumarate 50 Mg Tablet, 50 MG PO HS, (Reported) TAKES 50MG DAILY AND 150MG (100MG + 50MG) AT BEDTIME Quetiapine Fumarate 100 Mg Tablet, 100 MG PO HS, (Reported) TAKES A 100MG +50MG TO EQUAL 150MG Tamsulosin HCl 0.4 Mg Cap, 0.4 MG PO DAILY, (Reported) Topiramate 50 Mg Tablet, 50 MG PO BID, (Reported) Zinc Oxide 28 Gm Oint, 1 APPLIC TP EVERY 2 HOURS PRN for GAULDING/REDNESS/ITCHING, (Reported) APPLY NEEDED FOR BRIEF CHANGE [Bethanechol Chloride] , 25 MG PO QID, (Reported) Patient Home Medication List Home Medication List Reviewed: Yes Review of Systems Constitutional: see HPI EENTM: no symptoms reported Respiratory: no symptoms reported Cardiovascular: no symptoms reported Gastrointestinal: no symptoms reported Genitourinary: no symptoms reported Musculoskeletal: joint pain (Diffuse joint pain secondary to fall) Skin: other (Abrasion left palm) All Other Systems Reviewed Negative Unless Noted: Yes Past Ywlsehj-Tnqqds-Vhntbv Hx Patient Social History Type Used: Cigarettes, Electronic/Vapor Former Smoker, Quit: Jul 05, 2013 2nd Hand Smoke Exposure: Yes Recent Hopitalizations: No Immunizations Up To Date Tetanus Booster (TDap): Unknown PED Vaccines UTD: No Date of Pneumonia Vaccine: Apr 07, 2018 Date of Influenza Vaccine: Feb 10, 2020 Seasonal Allergies Seasonal Allergies: No Past Medical History Surgeries: Yes Gallbladder, Lumpectomy Respiratory: Yes (BRONCHITIS) Chronic Bronchitis Currently Using CPAP: No Cardiac: Yes Chronic Edema/Swelling, Coronary Artery Disease, High Cholesterol, Hypertension, Rheumatic Fever Neurological: Yes (ENCEPHALITIS, restless leg syndrome) Concussion, Dementia, Seizure Disorder, Traumatic Brain Injury, Vertigo Reproductive Disorders: No Female Reproductive Disorders: Denies [employer] History: Menopausal Sexually Transmitted Disease: No HIV/AIDS: No Genitourinary: Yes (CHRONIC RENAL INSUFFICIENCY; BLADDER CONTROL ISSUES?) Gastrointestinal: Yes ("STOMACH DISCOMFORT"--POST-CHOLECYSTECTOMY SYNDROME) Gastroesophageal Reflux, Chronic Constipation, Chronic Diarrhea, Gall Bladder Disease, Irritable Bowel Musculoskeletal: Yes Arthritis Endocrine: No HEENT: Yes (READING GLASSES) Loss of Vision: Bilateral Hearing Impairment: Denies Cancer: No Psychosocial: Yes Sleep Difficulties, Bipolar Integumentary: Yes Psoriasis Blood Disorders: No Adverse Reaction/Blood Tranf: No Family Medical History Cancer 03 FATHER (PANCREATIC CANCER) 09 BROTHER ( AT AGE 10) Family history: Cardiovascular disease 03 MOTHER Family history: Diabetes mellitus 03 MOTHER Heart disease 03 MOTHER No Pertinent Family Hx Physical Exam Vital Signs Vital Signs - First Documented 12/09/20 06:02 Temp 35.6 Pulse 85 Resp 18 B/P (MAP) 116/57 (76) Pulse Ox 98 O2 Delivery Room Air Capillary Refill : Height, Weight, BMI Height: 5'4.00" Weight: 166lbs. 0.0oz. 75.741300sq; 30.00 BMI Method:Stated General Appearance: WD/WN, no apparent distress HEENT: PERRL/EOMI Neck: non-tender, normal inspection Cardiovascular: regular rate, rhythm, systolic murmur Respiratory: lungs clear, normal breath sounds, no respiratory distress Gastrointestinal: non tender, soft Back: normal inspection, vertebral tenderness (Patient has midline tenderness over L3-4-5 and sacrum) Shoulder: normal inspection, no evidence of injury, normal ROM Elbow/Forearm: non-tender, no evidence of injury, normal ROM Hand: normal inspection, non-tender, no evidence of injury, normal ROM, stiffness (Patient has pre-existing deformity to the right wrist secondary to old injury. She is tender with range of motion of the right wrist. She is got no appreciable swelling to the right wrist joint) Neurologic/Tendon: normal sensation, normal motor functions, normal tendon functions Neurologic/Psychiatric: alert, normal mood/affect, oriented x 3 Skin: normal color, warm/dry, ecchymosis (Patient has significant ecchymosis over the right knee. She has bruising over the forearms consistent with anticoagulation and falls. She has an abrasion to the thenar eminence of the left hand. No active bleeding.) Progress/Results/Core Measures Results/Orders My Orders Orders - JANAE MUNOZ MD Wrist, Right, 3 Views Or More (12/09/20 06:12) Ct Lumbar Spine Wo (12/09/20 06:12) Hydrocodone/Apap 5/325 Tablet (Lortab 5 (12/09/20 07:30) Medications Given in ED Current Medications Medications Dose Ordered Sig/Cory Route Start Time Stop Time Status Last Admin Dose Admin Acetaminophen/ Hydrocodone Bitart 1 ea ONCE ONCE PO 12/09/20 07:30 12/09/20 07:31 DC 12/09/20 07:26 1 EA Vital Signs/I&O 12/09/20 06:02 Temp 35.6 Pulse 85 Resp 18 B/P (MAP) 116/57 (76) Pulse Ox 98 O2 Delivery Room Air Progress Progress Note : Time: 07:20 Progress Note Patient seen and examined by me, 70-year-old female who appears older than stated age presents after a fall at a local long-term. Evaluation today includes a physical exam, CT scan of the lumbar spine, right wrist radiographs. Patient's right wrist shows chronic displaced distal radius and ulna fractures. No acute changes to the fracture sites. Her CT lumbar spine shows chronic degenerative disease with no evidence of acute fracture dislocation or other abnormality. Patient is treated in the emergency department with a 5 mg hydrocodone tablet. She has pain medications already scheduled for the long-term. Patient is sent back with fall precautions. She is advised of the findings of her imaging studies this morning. She verbalizes understanding. All questions are sought and answered. Patient is stable for discharge. Diagnostic Imaging Diagonstic Imaging: Xray, CT Plain Films/CT/US/NM/MRI: other (Lumbar spine) Comments Patient has no evidence of acute fracture, dislocation or acute abnormality. She does have severe degenerative lumbar disc disease Right wrist x-ray shows chronic comminuted and displaced distal radius and ulna fractures [facility] [place] NAME: APPLE VILLELA Bethany [facility] REC#: [id number] PT STATUS: REG ER : 1950 PHYSICIAN: JANAE MUNOZ MD ADMIT DATE: 12/09/20/ER Draft Date of Exam:12/09/20 CT LUMBAR SPINE WO PROCEDURE: CT lumbar spine without contrast. TECHNIQUE: Multiple contiguous axial images were obtained through the lumbar spine without the use of intravenous contrast. Sagittal and coronal reformations were then performed. Auto Exposure Controls were utilized during the CT exam to meet ALARA standards for radiation dose reduction. INDICATION: Fall. Low back pain. Multiple recent falls. COMPARISON: CT lumbar spine without contrast 11/20/2020, 12/05/2020. FINDINGS: There are 5 lumbar-type vertebral bodies. Moderate left apex lumbar curvature. Grade 1 anterolisthesis of L5 on S1 is stable. Vertebral body heights appear preserved. No acute fractures are identified. Stable chronic fracture through the superior endplate of S1. Advanced degenerative endplate changes at L2-S1. There is also moderate facet arthropathy at these levels. Visualized pelvis is intact. Partially calcified disc protrusions result in high-grade spinal canal stenosis at L2-L3, L3-L4. Spondylotic changes also likely result in high-grade spinal canal stenosis at L4-L5. Scattered neural foraminal narrowing is greatest on the right at L3-L4 where it is severe. Cholecystectomy. Moderate to advanced vascular calcifications. IMPRESSION: 1. No acute CT findings in the lumbar spine. 2. Stable spondylotic and scoliotic changes result in severe spinal canal stenosis at multiple levels, possibly contributing to the patient's falls. This could be further evaluated with MRI. 3. Stable chronic fracture involving the superior endplate of S1. Dictated on workstation # [id number] Dict: 12/09/20651 Trans: 12/09/20702 CVB [id number] Interpreted by: JIM LION MD Electronically signed by: [facility] [place] NAME: APPLE VILLELA [facility] REC#: [id number] PT STATUS: REG ER : 1950 PHYSICIAN: JANAE MUNOZ MD ADMIT DATE: 12/09/20/ER Draft Date of Exam:12/09/20 WRIST, RIGHT, 3 VIEWS OR MORE INDICATION: Fell, right wrist pain FINDINGS: 3 views of the right wrist demonstrate a displaced, impacted, comminuted intra-articular fracture of the distal radius. There is also an avulsed fracture off of the ulnar styloid. Osteopenia is present. IMPRESSION: There is a displaced intra-articular fracture of the distal radius with comminution. There is an avulsed fracture of the ulnar styloid. Dictated on workstation # [id number] Dict: 12/09/20718 Trans: 12/09/20721 CVB [id number] Interpreted by: SHAZIA TALAVERA MD Electronically signed by: Departure Impression Primary Impression: Fall Qualified Codes: W19.XXXA - Unspecified fall, initial encounter Additional Impression: Fracture of right wrist with delayed healing Qualified Codes: S62.101G - Fracture of unspecified carpal bone, right wrist, subsequent encounter for fracture with delayed healing Disposition: 01 HOME, SELF-CARE Condition: Stable Departure-Patient Inst. Decision time for Depature: 07:19 Referrals: [facility] (PCP/Family) Primary Care Physician Patient Instructions: Preventing Falls Add. Discharge Instructions: Continue previous home medication schedule. Pain medications every 4-6 hours as needed, continue Voltaren therapy. Return to the emergency room for any new, concerning or emergent complaints Scripts Diclofenac Sodium (Voltaren Arthritis Pain) 20 Gm Gel..gram. 20 GM TP DAILY PRN for PAIN-MILD (1-4), #1 TUBE Prov: JANAE MUNOZ MD 12/09/20 Hydrocodone/Acetaminophen (Hydrocodone-Acetamin 7.5-325) 1 Each Tablet 1 EACH PO Q6H PRN for PAIN-MODERATE (5-7), #15 TAB Prov: JANAE MUNOZ MD 12/09/20 JANAE MUNOZ MD Dec 09, 2020 06:18
--- NOTE | 2020-12-09 07:04 | Diagnostic Imaging Report ---
PROCEDURE: CT lumbar spine without contrast. TECHNIQUE: Multiple contiguous axial images were obtained through the lumbar spine without the use of intravenous contrast. Sagittal and coronal reformations were then performed. Auto Exposure Controls were utilized during the CT exam to meet ALARA standards for radiation dose reduction. INDICATION: Fall. Low back pain. Multiple recent falls. COMPARISON: CT lumbar spine without contrast 11/20/2020, 12/05/2020. FINDINGS: There are 5 lumbar-type vertebral bodies. Moderate left apex lumbar curvature. Grade 1 anterolisthesis of L5 on S1 is stable. Vertebral body heights appear preserved. No acute fractures are identified. Stable chronic fracture through the superior endplate of S1. Advanced degenerative endplate changes at L2-S1. There is also moderate facet arthropathy at these levels. Visualized pelvis is intact. Partially calcified disc protrusions result in high-grade spinal canal stenosis at L2-L3, L3-L4. Spondylotic changes also likely result in high-grade spinal canal stenosis at L4-L5. Scattered neural foraminal narrowing is greatest on the right at L3-L4 where it is severe. Cholecystectomy. Moderate to advanced vascular calcifications. IMPRESSION: 1. No acute CT findings in the lumbar spine. 2. Stable spondylotic and scoliotic changes result in severe spinal canal stenosis at multiple levels, possibly contributing to the patient's falls. This could be further evaluated with MRI. 3. Stable chronic fracture involving the superior endplate of S1. Dictated by: Dictated on workstation # [id number]
--- NOTE | 2020-12-09 07:23 | Diagnostic Imaging Report ---
INDICATION: Fell, right wrist pain FINDINGS: 3 views of the right wrist demonstrate a displaced, impacted, comminuted intra-articular fracture of the distal radius. There is also an avulsed fracture off of the ulnar styloid. Osteopenia is present. IMPRESSION: There is a displaced intra-articular fracture of the distal radius with comminution. There is an avulsed fracture of the ulnar styloid. Dictated by: Dictated on workstation # [id number]
[2020-12-09] MEDS ORDERED: DICL20GE TP (07:26)
[2020-12-09] MEDS ORDERED: HYDR-3817 PO (07:26)
[2020-12-09] MEDS ORDERED: HYDROcodone/APAP 5 MG/325 MG (LORTAB) TAB PO ONE (07:30)
[2020-12-09 09:05] VITALS: BP 104/49
== END 2020-12-09 09:06 | disposition home or self-care (01) ==
LOC: EDUNIT# 05:59 → ER 06:01
DX: S62.101G Fracture of unspecified carpal bone, right wrist, subsequent encounter for fracture with delayed healing (principal); I10 Essential (primary) hypertension; K21.9 Gastro-esophageal reflux disease without esophagitis; G40.909 Epilepsy, unspecified, not intractable, without status epilepticus; F31.9 Bipolar disorder, unspecified; G30.9 Alzheimer's disease, unspecified; F02.80 Dementia in other diseases classified elsewhere, unspecified severity, without behavioral disturbance, psychotic disturbance, mood disturbance, and anxiety; Z88.0 Allergy status to penicillin; Z91.040 Latex allergy status; Z86.73 Personal history of transient ischemic attack (TIA), and cerebral infarction without residual deficits; Z87.891 Personal history of nicotine dependence; Z79.82 Long term (current) use of aspirin; Z79.899 Other long term (current) drug therapy; W18.2XXD Fall in (into) shower or empty bathtub, subsequent encounter
CPT/HCPCS: 72131; 73110

== ENCOUNTER → 2021-01-18 | Outpatient (CLI) | payer MEDICARE, BC, MEDICAID ==
[~2021-01-18] MED LIST changes: +DICL20GE TP; +DOXY-311 PO; -DOXY100C42 PO; +HYDR-3817 PO; -SULF1TAB35 PO; +SULF1TAB38 PO
[2021-01-20 14:59] LABS: ANISOCYTOSIS SLIGHT; BAND NEUTROPHILS 3 %; BASOPHILS % (MANUAL) 1 %; EOSINOPHILS % (MANUAL) 2 %; LYMPHOCYTES % (MANUAL) 35 %; MONOCYTES % (MANUAL) 15 %; MYELOCYTES % 1 %; NEUTROPHILS % (MANUAL) 43 %
== END ==
LOC: LABNPT 09:01
PROVIDERS: ATTEND Family Medicine
DX: D64.9 Anemia, unspecified (principal); D72.819 Decreased white blood cell count, unspecified
CPT/HCPCS: 85007